=== PATIENT | female | born 1985 ===

== ENCOUNTER 2023-12-17 07:58 | Outpatient (OUT) | payer OTHER, SELFPAY ==
--- NOTE | 2023-12-17 08:00 | VEIN_ITS ---
Patient Name: SUKHDEV WATERMAN MR#: [id number] : 1985 Exam Date: 12/17/2023 Ordering Doctor: DR Hansel Farley M.D. RADIOLOGY REPORT PROCEDURE: [facility] - OFFICE VISIT INITIAL COMPARISON: None. PROGRESS NOTES: 37-year-old female who presents with a 5 year history of lower extremity pain swelling and varicose veins. The patient's right leg is worse than the left. The patient describes the pain as aching burning and heaviness and rates pain as a 5 on a scale of 1-10. The patient's symptoms are exacerbated by prolonged sitting and standing required of her job. Patient's symptoms are partially relieved by rest, leg elevation, support stockings and over the counter Tylenol. The patient has worn compression stockings for approximately 12 months. The patient denies any signs and symptoms to suggest arterial ischemia. The patient describes a family history significant for cancer in her mother and sister. Hypothyroidism. Varicose veins in a father and maternal grandmother. . The patient has never smoked. Occasional social alcohol use. The patient is . No illicit drug use. Past medical history is significant for hypertension, hypothyroidism and left foot pain for which a brace has successfully controlled her symptoms. Past surgical history significant for cholecystectomy, gastric bypass surgery and hernia repair. No history of deep venous thrombus or pulmonary embolus. See separate history and physical for medication list. No prior treatment for varicose or spider veins. Nursing notes were reviewed. After history and physical exam I discussed at length the pathophysiology of venous hypertension and possible treatments, therapies and strategies available. We discussed at length the importance of elevating the lower extremities above the level of the heart, increased physical activity and compression stocking use. Ultrasound venous reflux study performed the same day was discussed at length with the patient. The report demonstrates severe bilateral great saphenous vein venous insufficiency. Moderate right and mild left anterior accessory saphenous vein venous insufficiency. Bilateral incompetent varicose veins. Bilateral deep vein reflux PHYSICAL EXAM: The right leg demonstrates moderate scattered varicose and reticular veins. No hemosiderin staining. Mild subcutaneous edema. No active ulceration. The left leg demonstrates mild scattered varicose veins. No hemosiderin staining. Mild subcutaneous edema. No active ulceration Both thighs, legs and feet were symmetrically warm to the touch. Good posterior tibial and dorsalis pedis pulses were present bilaterally. VEIN/VC Facility EST Comprehensive IMPRESSION: 1. Severe bilateral great saphenous vein venous insufficiency with dilatation and saphenofemoral junction reflux. Bilateral anterior accessory saphenous vein venous insufficiency 2. Moderate bilat lower extremity varicose veins 3. Mild bilateral lower extremity subcutaneous edema 4. No definite flow significant arterial disease 5. CEAP: C3, Ep, As, Pr PLAN: 1. Endovenous laser ablation right great saphenous vein followed by left great saphenous vein. 2. Micro foam chemical ablation incompetent varicose veins 3. Evaluation of the anterior accessory saphenous veins 4. Leg elevation and continued physical activity symptomatic 5. Bilateral thigh-high 20-30 mm compression stockings for control of deep vein reflux Nurse notes, history and physical were reviewed and confirmed, see attached forms. The nurse was present throughout the physical exam and consultation Dictated by: Hansel Farley MD on 12/17/2023 at 10:49 Approved by: Hansel Farley MD on 12/17/2023 at 10:54
--- NOTE | 2023-12-17 08:00 | VEIN_ITS ---
Patient Name: SUKHDEV WATERMAN MR#: [id number] : 1985 Exam Date: 12/17/2023 Ordering Doctor: DR HANSEL FARLEY M.D. RADIOLOGY REPORT PROCEDURE: VC EXT VENOUS REFLUX SHAMA LMTD COMPARISON: None. INDICATIONS: I83.813 Bilateral painful varicose veins TECHNIQUE: Duplex imaging of the lower extremity to assess the deep and superficial venous system for the presence of deep or superficial venous incompetence and to document the location and severity of disease. The study includes evaluation of the great saphenous vein (GSV), anterior accessory saphenous vein (AASV) and small saphenous vein (SSV). Patient scanned in reverse Trendelenburg and standing. FINDINGS: RIGHT LOWER EXTREMITY: Saphenofemoral Junction Reflux: Yes 10.8mm 4.4 sec GSV: Diam (mm) Reflux/ Time (sec) Proximal Thigh 14.7 Yes 4.9 Mid Thigh 6.7 Yes 5.0 Distal Thigh 12.6 Yes 4.9 Prox Calf 7.7 Yes 4.9 Mid Calf 2.5 Yes 0.4 Saphenopopliteal Junction Reflux 2.8mm Yes 0.2 SSV: Proximal Calf 3.4 Yes 0.4 Mid Calf 2.5 Yes 0.2 AASV: Proximal Thigh 6.6 Yes 1.6 Mid Thigh 2.0 No Distal Thigh Thrombi: No acute or chronic thrombus. Compressibility: Normal. Flow: Mild deep venous reflux. Preforator: Dist medial lower leg 2.6mm with 1.0s reflux. Dist medial lower leg 4.2 mm with 1.0s reflux. Prox medial lower leg 5.6 mm, 0.8s reflux. Tech Note: Short AASV 5.0 cm from SFJ. Incompetent varicose vein mid medial lower leg measures 7.2 mm with 2.3s reflux. Varicose vein mid medial lower leg off perf measures 5.7 mm with 4.4s reflux. Varicose medial lower leg 5.7 mm with 0.8s reflux. LEFT LOWER EXTREMITY: Saphenofemoral Junction Reflux: Yes 10.9 mm 1.6 sec GSV: Diam (mm) Reflux/Time (sec) Proximal Thigh 10.8 Yes 1.6 Mid Thigh 7.1 Yes 2.2 Distal Thigh 8.2 Yes 4.9 Prox Calf 9.9 Yes 4.4 Mid Calf 5.3 Yes 1.0 Saphenopopliteal Junction Relux: 3.6 mm Yes 0.3 SSV: Proximal Calf 4.9 Yes 0.2 Mid Calf 3.9 Yes 0.3 AASV: Proximal Thigh 2.8 Yes 0.6 Mid Thigh Distal Thigh Thrombi: No acute or chronic thrombus Compressibility: Normal. Flow: Mild deep venous reflux. Therapy Site Coordinator: Mid medial lower leg measures 3.5 mm with 4.1s reflux. Distal medial thigh 4.9 mm with 0.5s reflux. Tech Note: Incompetent varicose vein mid medial lower leg measures 4.8 mm with 3.1s reflux. Varicose vein distal medial thigh measures 5.0 mm with 1.4s reflux. CONCLUSION: 1. Severe bilateral great saphenous vein venous insufficiency with dilatation and saphenofemoral junction reflux 2. Moderate right and mild left anterior accessory saphenous vein venous insufficiency over a fairly short length with saphenofemoral junction reflux 3. Bilateral incompetent varicose veins 4. Mild bilateral deep vein reflux Dictated by: Hansel Farley MD on 12/17/2023 at 09:11 Approved by: Hansel Farley MD on 12/17/2023 at 09:14
== END 2023-12-17 07:59 | disposition home or self-care (01) ==
LOC: VC 07:59
PROVIDERS: PCP Radiology Diagnostic Radiology; Visit Provider Radiology Diagnostic Radiology
DX: I83.813 Varicose veins of bilateral lower extremities with pain (principal)
CPT/HCPCS: 93970; G0463

== ENCOUNTER 2024-01-19 08:44 | Outpatient (OUT) | payer OTHER, SELFPAY ==
--- NOTE | 2024-01-19 08:45 | VEIN_ITS ---
The [address] [address] Patient Name: SUKHDEV WATERMAN MRN: [id number] date: 1985 Sex: F Assigned Patient Location: Current Patient Location: Accession/Order Number: [id number] Exam Date: 01/19/2024 08:48 Report Date: 01/19/2024 10:03 At the request of: DREW MCBRIDE Procedure: VC Endovenous Ablation 1VeinRT EXAMINATION: VC Endovenous Ablation 1VeinRT HISTORY: Pain due to varicose veins of bilateral legs I83.813 The risks and benefits of the procedure had been previously discussed, and were rediscussed at length. Informed written consent was obtained. Jose Escalante RN and Tayler Juarez RDMS assisted. Time out procedure was performed. The right lower extremity was prepared and draped in the usual sterile fashion to allow knee flexion in the sterile field. Duplex ultrasound probe was draped in a sterile cover, sterile transmission gel was used. Venous mapping was performed with the areas of dilation and large tributaries marked. The total length was 50 cm from the entry 5 cm above the ankle to 3 cm below the Saphenofemoral junction. The diameter of the right great saphenous vein ranged from 10.8 mm. A 30 gauge needle and 1% buffered lidocaine was used to anesthetize the entry site. A 4 mm incision was made with a scalpel and the saphenous vein was entered percutaneously under direct ultrasound guidance with a micropuncture set, a single stick was successful in gaining access. A micro-guide wire was inserted and the needle removed. A micro-set including a dilator was inserted over the microwire and the needle and dilator were removed. A guide wire was inserted through the micro-set and guided through the saphenous vein to the saphenofemoral junction. The dilator was removed and an introducer sheath was inserted over the wire until the end of the sheath entered the saphenofemoral junction. The dilator and wire were removed and the 600 micron fiber was introduced and placed and positioned so that it extended beyond the sheath and was 3 cm distal to the saphenofemoral or saphenopopliteal junction. Final position of the fiber was determined by ultrasound guidance and duplex imaging. Tumescent anesthetic was delivered by ultrasound guidance. 300 cc of fluid was delivered along the entire course of the saphenous vein. The solution consisted of 1000 cc of normal saline with 40 mL of 1% lidocaine and 20 mL of sodium bicarbonate. A final positioning check was made. The energy source was turned on by means of the foot pedal and the fiber and sheath were withdrawn. The total number of Joules delivered was 2735. The laser was active for 342 seconds under continuous pulse, average laser use of 8 J. Laser start time: 9:34 AM Laser stop time: 9:40 AM Date: 01/19/2024. A duplex ultrasound revealed compressibility and flow at the saphenofemoral junction immediately after the procedure. Hemostasis at the access site was achieved. The skin incision of the saphenous vein was closed with a 4 x 4. A compression stocking was applied. Postop instructions were given. A follow up appointment was recommended and scheduled. The patient tolerated the procedure well. Electronically authenticated by: RAHEL PEREZ Date: 01/19/2024 10:03
[2024-01-19] MEDS: LIDOCAINE HCL 1% 100 MG/10 ML MDV INJ (09:01)
[2024-01-19] MEDS: 0.9 % SODIUM CHLORIDE 500 ML, LIDOCAINE HCL 20 ML, SODIUM BICARBONATE 10 MEQ INJ (09:02)
== END 2024-01-19 08:45 | disposition home or self-care (01) ==
PROVIDERS: PCP Radiology Diagnostic Radiology; Visit Provider Radiology Diagnostic Radiology
DX: I83.813 Varicose veins of bilateral lower extremities with pain (principal)
CPT/HCPCS: 36478

== ENCOUNTER 2024-01-26 07:31 | Outpatient (OUT) | payer OTHER, SELFPAY ==
--- NOTE | 2024-01-26 07:32 | VEIN_ITS ---
Patient Name: SUKHDEV WATERMAN MR#: [id number] : 1985 Exam Date: 01/26/2024 Ordering Doctor: DR HANSEL FARLEY M.D. RADIOLOGY REPORT PROCEDURE: VC EXT VENOUS RT LMTD COMPARISON: None. INDICATIONS: Phlebitis of superficial veins of right lower extremity I80.01 TECHNIQUE: Lower extremity arnett scale and Duplex Doppler evaluation of the deep venous system from the inguinal ligament through the calf veins. FINDINGS: REGION: Right lower extremity. THROMBI: Negative for DVT. Heat induced thrombus in right GSV 1.6 cm from SFJ and extends to proximal calf. COMPRESSIBILITY: Non-compressible segments corresponding to thrombus FLOW: Areas of no flow corresponding to thrombus CONCLUSION: Post ablation occlusion of the right great saphenous vein with heat induced thrombus 1.6 cm from the saphenofemoral junction Dictated by: Hansel Farley MD on 01/26/2024 at 07:46 Approved by: Hansel Farley MD on 01/26/2024 at 07:47
--- NOTE | 2024-01-26 07:32 | VEIN_ITS ---
Patient Name: SUKHDEV WATERMAN MR#: [id number] : 1985 Exam Date: 01/26/2024 Ordering Doctor: DR HANSEL FARLEY M.D. RADIOLOGY REPORT PROCEDURE: [facility] EST [facility]D VEIN CENTER - OFFICE VISIT FOLLOW UP COMPARISON: None. PROGRESS NOTES: The patient reports no significant pain following intravenous laser ablation of the right great saphenous vein. The patient has worn her compression stocking. The patient did not require oral analgesics. The patient has tried exercise as directed. Physical exam demonstrates no erythema or warmth to suggest cellulitis or thrombophlebitis. No active ulceration. Thrombosed right great saphenous vein can be partially palpated. The incision is sealed. Review of the ultrasound performed the same day demonstrates occlusive thrombus extending throughout the treated right great saphenous vein with heat induced thrombus 1.6 cm from the saphenofemoral junction. No deep vein thrombus. The patient expressed a desire to proceed with treatment of incompetent left great saphenous vein. VEIN/ Facility EST LMTD IMPRESSION: 1. Successful ablation of the right great saphenous vein 2. Persistent incompetent left great saphenous vein PLAN: Intravenous laser ablation of the left great saphenous vein Nurse notes, history and physical were reviewed and confirmed, see attached forms. The nurse was present throughout the physical exam and consultation Dictated by: Hansel Farley MD on 01/26/2024 at 07:55 Approved by: Hansel Farley MD on 01/26/2024 at 07:56
--- OUTSIDE RECORDS SUMMARY | 2024-01-26 07:34 | XMS_ITS | CCD ---
Author Organization [facility] Care Team Providers Care Flask Carrier Name Role Phone Unavailable Unavailable Unavailable VerLoli duran Unavailable Unavailable RANA, BEHZAD RAJENDRASINH Unavailable Unavail able VERLOLI DURAN Unavailable Unavailable TAMELA ARAYA Unavailable Unavailable BARON JOSE Unavailable Unavailable VERLOLI DURAN Unavailable Unavailable RANA, BEHZAD RAJENDRASINH Unavailable Unavail able RANA, BEHZAD RAJENDRASINH Unavailable Unavail able LOLI MATIAS Unavailable Unavailable FARAZ ROMERO Unavailable Unavailable LOLI MATIAS Unavailable Unavailable Loli Matias Primary Care Provider Unavaila ble Loli Matias Primary Care Provider Loli Matias Primary Care Provider [phone] RANA, BEHZAD RAJENDRASINH Attending Unavail able LOLI MATIAS Primary Care Unavailable RANA, BEHZAD RAJENDRASINH Attending Unavail able LOLI MATIAS Primary Care Unavailable Loli Matias Primary Care Provider [phone] Loli Matias MD Primary Care Provider Loli Matias MD Primary Care Provider REED, DR DREW Baez Attending Unavailable REED, DR DREW Baez Consulting Unavailable REED, DR DREW Baez Admitting Unavailable REED, DR DREW Baez Attending Unavailable REED, DR DREW Baez Consulting Unavailable REED, DR DREW Baez Admitting Unavailable Loli Matias MD Primary Care Provider LOLI MATIAS Primary Care Unavailable NISSA LO Referring Unavailable LOLI MATIAS Referring Unavailable LOLI MATIAS Primary Care Unavailable Allergies Allergy Classification Reported Allergen(s) Allergy Type Date of Onset Reaction(s) Facility (3 sources) bee pollen Propensity to adverse reactions to drug 04-26-2019 [place], [place] (5 sources) levoFLOXacin Drug Allergy 04-26-2019 [place] (3 sources) Penicillins Propensity to adverse reactions to drug 12-01-2011 [place] (3 sources) Seasonal allergy Propensity to adverse reactions to substance 11-18-[address] [facility] (2 sources) Penicillins Propensity to adverse reactions to drug 12-01-2011 [facility] (2 sources) Pollen Propensity to adverse reactions to drug 04-26-2019 [facility] Work Phone: Medications Current Medications Medication Drug Class(es) Dates Sig (Normalized) Sig (Original) 8 hr acetaminophen 650 mg extended release oral tablet (12 sources) take 1 tablet by mouth twice daily as needed for pain acetaminophen (TYLENOL) 650 MG CR tablet Take 650 mg by mouth 2 (two) times a day as needed for pain. 0 Active acetaminophen 325 mg / HYDROcodone bitartrate 10 mg oral tablet (1 source) Opioid Agonist Start: 06-09-2019 take 1 tablet by mouth every six hours as needed for pain, then take 4 tablets by mouth once daily as needed for pain HYDROcodone-acetam inophen (NORCO) 10-325 MG per tablet TAKE ONE TABLET BY MOUTH EVERY 6 HOURS NEEDED FOR PAIN max FOUR daily 0 06/09/2019 Active acetaminophen 325 mg / oxyCODONE hydrochloride 5 mg oral tablet (1 source) Opioid Agonist Start: 04-23-2019 take 1 tablet by mouth every six hours as needed for pain oxyCODONE-acetamin ophen (PERCOCET) 5-325 MG per tablet TAKE 1 TABLET BY MOUTH EVERY 6 HOURS NEEDED FOR PAIN FOR 5 DAYS 0 04/23/2019 Active amLODIPine 10 mg oral tablet (3 sources) Dihydropyridine Calcium Channel [place] Start: 02-06-2016 take 1 tablet by mouth once daily amLODIPine (NORVASC) 10 MG tablet Take 1 tablet by mouth daily 02/06/2016 Active biotin (13 sources) BIOTIN PO Take b y mouth 0 Active take 1 capsule by mouth once [place] biotin 10,000 mcg cap Take 10,000 mcg by mouth daily. 0 Active calcium citrate 1500 mg / cholecalciferol 200 unt oral tablet (10 sources) Vitamin D calcium citrate- vitamin D (CITRACAL+D) 315-200 mg-unit per tablet Take 1,200 tablets by mouth daily. 0 Active Calcium Citrate-Vitamin D3 315 Mg-200 Unit Tablet (2 sources) take 1200 tablets by mouth once daily, then take 315-200 tablets by mouth once calcium citrate-vitamin D (CITRACAL+D) 315-200 mg-unit per tablet Take 1,200 tablets by mouth daily. Active cholecalciferol 0.125 mg oral tablet (14 sources) Vitamin D take 1 tablet by mouth once daily Cholecalciferol (VITAMIN D3) 5000 units TABS Take 1 tablet by mouth daily 0 Active coenzyme q10 400 mg oral capsule (9 sources) coenzyme Q10 (CO Q-10) 400 mg cap Take by mouth . 0 Active docusate sodium 50 mg / sennosides, fpc 8.6 mg oral tablet (3 sources) take 1 tablet by mouth once daily as needed senna-docusate (SENNALAX-S) 8.6-50 mg Take 1 tablet by mouth daily as needed . Active gabapentin 50 mg/ml oral solution (1 source) Anti-epileptic Agent Start: 2016 End: 2016 take 6 mL by mouth once daily gabapentin (NEURONTIN) 300 mg/6 mL (6 mL) solution Take 6 mL (300 mg total) by mouth daily. 180 mL 0 05/02/2017 06/01/2017 Active hydroCHLOROthiazide 25 mg oral tablet (3 sources) Thiazide Diuretic Start: 2016 hydroCHLOROthiazide (HYDRODIURIL) 25 MG tablet Take by mouth. 08/04/2017 Active Start: 05-02-2017 End: 06-01-2017 take 0.5 tablet by mouth once daily hydroCHLOROthiazide (HYDRODIURIL) 25 MG tablet Take 0.5 (one-half) tablet (12.5 mg total) by mouth daily. 15 tablet 0 05/02/2017 06/01/2017 Active hydroquinone 40 mg/ml topical cream (1 source) Melanin Synthesis Inhibitor Start: 03-24-2023 hydroquinone 4 % cream Apply topically 2 times daily. 28.35 g 3 03/24/2023 Active loratadine 10 mg oral tablet (3 sources) Start: 03-27-2019 loratadine (CLARITIN) 10 MG tablet Take by mouth 0 03/27/2019 Active metFORMIN hydrochloride 500 mg oral tablet (10 sources) Biguanide take 1 tablet by mouth twice daily at mealtime metFORMIN (GLUCOPHAGE) 500 MG tablet Take 500 mg by mouth 2 (two) times a day with meals. 0 Active Multiple Vitamins-Minerals (MULTIVITAMIN ADULT PO) (3 sources) Start: 03-27-2019 Multiple Vitamins-Minerals (MULTIVITAMIN ADULT PO) Take by mouth 0 03/27/2019 Active Naltrexone (11 sources) Opioid Antagonist Start: 04-21-2019 NALTREXONE HCL PO take 1 capsule by mouth once [place] naltrexone 4.5 mg capsule Take 4.5 mg by mouth daily . 0 Active ondansetron 4 mg disintegrating oral tablet (2 sources) Serotonin-3 Receptor Antagonist Start: 07-17-2019 ondansetron (ZOFRAN ODT) [address] 1 tablet under the tongue every 8 hours as needed for Nausea or Vomiting 30 tablet 0 07/17/2019 Active Start: 04-23-2016 take 2 tablets by mo [facility] every eight hours as needed for nausea ondansetron (ZOFRAN) 4 MG tablet Take 2 tablets by mouth every 8 hours as needed for Nausea or Vomiting 20 tablet 0 04/23/2016 Active pantoprazole 40 mg delayed release oral tablet (7 sources) Proton Pump Inhibitor Start: 11-06-2022 take 1 tablet by mouth once daily pantoprazole (PROTONIX) 40 MG tablet Indications: Gastroesophageal reflux disease without esophagitis TAKE 1 TABLET BY MOUTH EVERY DAY 90 tablet 0 11/06/2022 Active Start: 11-18-2021 [facility] pantoprazole (PROTONIX) 40 MG tablet Indications: Gastroesophageal reflux disease without esophagitis TAKE 1 TABLET BY MOUTH EVERY DAY 90 tablet 1 11/18/2021 Active Start: 05-20-2020 End: 05-20-2021 take 1 tablet by mouth once daily pantoprazole (PROTONIX) 40 MG tablet Take 1 (one) tablet (40 mg total) by mouth daily . 30 tablet 5 05/20/2020 05/20/2021 Active Start: 06-09-2017 End: 09-13-2018 take 1 tablet by mouth once daily pantoprazole (PROTONIX) 40 MG tablet Indications: S/P bariatric surgery , Gastroesophageal reflux disease, esophagitis presence not specified Take 1 (one) tablet (40 mg total) by mouth daily. 30 tablet 2 09/13/2017 09/13/2018 Active Start: 05-02-2017 End: 06-01-2017 take 1 tablet by mouth once daily pantoprazole (PROTONIX) 40 MG tablet Take 1 (one) tablet (40 mg total) by mouth daily. 30 tablet 0 05/02/2017 06/01/2017 Active vitamin with Ca-Iron-FA 27-1 mg Tab (9 sources) take 1 tablet by mouth once daily vitamin with Ca-Iron-FA 27-1 mg Tab Take 1 tablet by mouth daily . 0 Active raNITIdine 150 mg oral tablet (14 sources) Histamine-2 Receptor Antagonist Start: 03-27-2019 take 1 tablet by mouth twice daily ranitidine (ZANTAC) 150 MG tablet Take by mouth One twice a day 0 03/27/2019 Active take 1 tablet by mouth twice [place] [facility] ranitidine (ZANTAC) 150 MG tablet Take 150 mg by mouth 2 (two) times a day. 0 Active levothyroxine sodium 0.05 mg oral tablet (17 sources) l-Thyroxine Start: 11-06-2022 take 1 tablet by mouth once daily before breakfast levothyroxine (SYNTHROID) 50 MCG tablet Indications: Acquired hypothyroidism TAKE 1 TABLET BY MOUTH EVERY DAY BEFORE BREAKFAST 90 tablet 0 11/06/2022 Active Start: 11-18-2021 take 1 tablet by rosalino th once daily before breakfast levothyroxine (SYNTHROID) 50 MCG tablet Indications: Acquired hypothyroidism Take 1 tablet by mouth every morning (before breakfast) 90 tablet 1 11/18/2021 Active Start: 02-06-2016 take 1 tablet by rosalino th once daily before breakfast levothyroxine (SYNTHROID) 50 MCG tablet Take 1 tablet by mouth every morning (before breakfast) 90 tablet 1 04/14/2019 Active vitamin B 12 (17 sources) Vitamin B12 cyanocobalamin ( vitamin B-12) 1000 MCG tablet Take 1,000 mcg by mouth daily She is taking 500 sl. Cutting in half. . 0 Active take 1000 [IU] by mouth once [place] Cyanocobalamin (VITAMIN B 12 PO) Take 1,000 Units by mouth daily 0 Active vitamin e 400 unt oral tablet (9 sources) take 1 capsule by mo ut once daily vitamin E 400 UNIT capsule Take 400 Units by mouth daily . 0 Active take 1 capsule by mouth once [place] vitamin E 400 UNIT capsule Take 400 Units by mouth daily . 0 Active Completed/Discontinued Medications Medication Drug Class(es) Dates Sig (Normalized) Sig (Original) pediatric bxytqieu-ufsq-cgz (flintstones complete) Chew (2 sources) pediatric vctymfwk-qqkd-obo (flintstones complete) Chew Chew and Swallow Take two daily . Active Pediatric Multivitamin With Iron And Other Minerals Chewable Tablet (1 source) pediatric vxfnxccx-suvy-ves (flintstones complete) Chew Chew and Swallow Take two daily . Active Problems Active Problems Problem Classification Problem Date Documented Da te Episodic/Chronic Esophageal disorders (5 sources) Gastroesophageal reflux disease without esophagitis; Translations: [Gastro-esophageal reflux disease without esophagitis] Onset: 7 01-21-2017 Chronic Essential hypertension (7 sources) Essential (primary) hypertension; Translations: [Hypertensive disorder] Onset: 2 09-07-2012 Chronic Other endocrine disorders (2 sources) Ovarian dysfunction, unspecified; Translations: [Ovarian dysfunction, unspecified] Onset: 8 Chronic Other gastrointestinal disorders (1 source) History of bariatric surgical procedure; Translations: [Bariatric surgery status] Episodic Other nutritional; endocrine; and metabolic disorders (20 sources) Morbid obesity; Translations: [Morbid (severe) obesity due to excess calories] Onset: 7 04-30-2017 Chronic Other nutritional; endocrine; and metabolic disorders (1 source) Obese class I; Translations: [Obesity, Class I, BMI 30-34.9] Other screening for suspected conditions (not mental disorders or infectious disease) (6 sources) Increased vitamin A; Translations: [Encounter for screening, unspecified] Onset: 9 09-21-2019 Episodic Thyroid disorders (9 sources) Thyroid nodule; Translations: [Acquired hypothyroidism] Onset: 1 08-04-2017 Chronic Past or Other Problems Problem Classification Problem Date Documented Da te Episodic/Chronic Abdominal pain (6 sources) Abdominal pain; Translations: [Epigastric pain] Onset: 07-05-2012 Resolved: 08-04-2017 08-04-2017 Episodic Medical examination/evaluation (2 sources) Encounter for other preprocedural examination; Translations: [Encounter for other preprocedural examination] Onset: 04-23-2017 Episodic Nutritional deficiencies (4 sources) Cobalamin deficiency; Translations: [Vitamin B12 deficiency] Onset: 09-18-2019 09-18-2019 Episodic Other gastrointestinal disorders (1 source) Personal history of other diseases of the digestive system; Translations: [History of pancreatitis] Episodic Residual codes; unclassified (1 source) H/O: surgery Episodic Unclassified (2 sources) Patient encounter status; Translations: [Well woman exam with routine gynecological exam] Onset: 04-05-2012 Resolved: 08-15-2018 08-15-2018 Urinary tract infections (5 sources) Lower urinary tract infectious disease; Translations: [Urinary tract infection, site not specified] Onset: 07-05-2012 Resolved: 08-04-2017 08-04-2017 Episodic Results Test Name Value Interpretation Reference Range Facility Thyroxine, Freeon 04-03-2023 Thyroxine, Free 1.4 ng/dL Normal 0.9-1.7 [facility] Comment on above: Performed By: #### F T4 #### [address] [id number] Formula Mixer: Jarek Branch MD #### TSH #### [facility] [address] [place] [address] Formula Mixer: Drew Lee MD [facility] TSH [Mass/Vol] 0.83 [facility] Thyroid Stim. Horm.on 2022 Thyroid Stim. Horm. 0.83 uIU/mL Normal 0.30-5.00 [facility] Comment on above: Performed By: #### F T4 #### [id number] [place], [place] [id number] Formula Mixer: Jarek Branch MD #### TSH #### [facility] [address] [place] [address] Formula Mixer: Drew Lee MD US HEAD NECK SOFT TISSUE THY ROIDon 11-11-2022 US HEAD NECK SOFT TISSUE THYROID EXAM: US HEAD NECK SOFT TISSUE THYROID HISTORY: Acquired hypothyroidism COMPARISON: 07/14/2019. FINDINGS: Right lobe: 5.8 x 2.0 x 1.8 cm. Isthmus: 3.2 mm. Left lobe: 4.5 x 1.8 x 1.6 cm. Rim calcified benign 6 x 5 x 5 mm nodule inferior left lobe not significant and stable. 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 Thyroid echogenicity normal. IMPRESSION: No significant findings. No specific follow-up needed. Interpreted by: Manny Villafuerte Jr., MD Signed by: Manny Villafuerte Jr., MD 11/11/22 Final result Normal [facility] No significant findings. No specific follow-up needed. [facility] EXAM: US HEAD NECK S OFT TISSUE THYROID HISTORY: Acquired hypothyroidism COMPARISON: 07/14/2019. FINDINGS: Right lobe: 5.8 x 2.0 x 1.8 cm. Isthmus: 3.2 mm. Left lobe: 4.5 x 1.8 x 1.6 cm. Rim calcified benign 6 x 5 x 5 mm nodule inferior left lobe not significant and stable. 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 Thyroid echogenicity normal. [facility] Manny Villafuerte Jr., MD - 11/11/2022 EXAM: US HEAD NECK SOFT TISSUE THYROID HISTORY: Acquired hypothyroidism COMPARISON: 07/14/2019. FINDINGS: Right lobe: 5.8 x 2.0 x 1.8 cm. Isthmus: 3.2 mm. Left lobe: 4.5 x 1.8 x 1.6 cm. Rim calcified benign 6 x 5 x 5 mm nodule inferior left lobe not significant and stable. 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 Thyroid echogenicity normal. IMPRESSION: No significant findings. No specific follow-up needed. [employer] Phone: US HEAD NECK SOFT TISSUE THY ROIDOrdered By: Manny Villafuerte on 11-11-2022 [employer] Phone: US HEAD NECK SOFT TISSUE THY ROIDon 11-10-2022 Radiology Study observation (narrative) [employer] Phone: Coding Summary.on 05-31-2020 Coding Summary. CODING DATE: 020 FINAL [facility] STATUS: Home (Routine DC) PAYOR: Leela GROUPERS: 770 MS-DRG w D&C, aspiration curettage or hysterotomy Low Trim 0 High Trim 999 543 APR-DRG W D&C, ASPIRATION CURETTAGE OR HYSTEROTOMY Severity of Illness Moderate Risk of Mortality Minor DIAGNOSES: ADMIT DX: O03.1 Delayed or excessive hemorrhage following incomplete spontaneous REASON FOR VISIT DX: FINAL DX: PRINCIPAL: O03.1 Y Delayed or excessive hemorrhage following incomplete spontaneous SECONDARY: D62 Y Acute posthemorrhagic anemia PROCEDURES: DOCTOR NAME DATE Extraction of Products of Davie Grijalva MD 05/27/2020 Conception, Retained, Via Natural or Artificial Opening [id number] Control Bleeding in Davie Grijalva MD 05/27/2020 Genitourinary Tract, Via Natural or Artificial Opening [id number] Transfusion of Nonautologous Davie Grijlava MD 05/26/2020 Red Blood Cells into Peripheral Vein, Percutaneous Approach 96761L4 Transfusion of Nonautologous Davie Grijalva MD 05/26/2020 Red Blood Cells into Peripheral Vein, Percutaneous Approach 60814S7 Transfusion of Nonautologous Davie Grijalva MD 05/26/2020 Red Blood Cells into Peripheral Vein, Percutaneous Approach 47228L3 Transfusion of Nonautologous Davie Grijalva MD 05/26/2020 Red Blood Cells into Peripheral Vein, Percutaneous Approach 44061V4 Transfusion of Nonautologous Davie Grijalva MD 05/26/2020 Frozen Plasma into Peripheral Vein, Percutaneous Approach 38422W1 Transfusion of Nonautologous Davie Grijalva MD 05/26/2020 Frozen Plasma into Peripheral Vein, Percutaneous Approach 74498A2 Transfusion of Nonautologous Davie Grijalva MD 05/27/2020 Red Blood Cells into Peripheral Vein, Percutaneous Approach NOTE: The code number assigned matches the documented diagnosis and / or procedure in the patient's chart. However, the narrative phrase printed from the coding software may appear abbreviated, or result in slightly different terminology. Coded By: Rae Milton Date Saved: 05/31/2020 11:44 am Normal [facility] IntraOperative Documentson 0 05-31-2020 IntraOperative Documents [id number]#[id number]:127 Normal [facility] Consent for Procedure/Surger yon 05-28-2020 Consent for Procedure/Surgery [id number]#[id number]:127 Normal [facility] Discharge Instructionson Discharge Instructions [id number]#[id number]:127 Normal [facility] Discharge Instructions Given Worseningon 05-28-2020 Discharge Instructions Given Worsening The following Patient Education Materials have been given to the patient: EducationMaterial Normal [facility] History and Physicalon 05-28 History and Physical HOSPITAL REGULATIONS: ALL Positive Important Negative Findings Shall Be Recorded DATE ADMITTED: 05/26/2020 ADMITTING DIAGNOSIS: Miscarriage with hemorrhage. The patient is a 34 year old, white female who presented to the Emergency Room with heavy vaginal bleeding and menses started about a week ago. She had multiple days of heavy bleeding. This morning it was very heavy which concerned her. She felt a little dizzy. On admission to the Emergency Room she was found to have a quantitative beta HCG of 18 and having large clots per the vagina. It slowed down and she was evaluated and found to have a hemoglobin of 12. She was continued with her evaluation with the positive test. She had an ultrasound which revealed what was felt to be products of conception versus clot in the uterus as well as an 8 cm mass around the cervix. Her hemoglobin dropped from 12 to 9 on repeat. PAST MEDICAL HISTORY: Allergies: Pollen and Levaquin. Medications: Levothyroxine, Ibuprofen, Loratadine. Surgeries: Dilation and curettage in 2019, hysteroscopy in 2018, gastric sleeve in 2017. FAMILY HISTORY: Noncontributory but positive for diabetes in her mother, positive for thyroid cancer in her mother and sister. PSYCHOSOCIAL HISTORY: Negative for cigarettes. Negative for ETOH. REVIEW OF SYSTEMS: Heavy bleeding. GENERAL: The patient is a well-developed, well-nourished, white female, quite pale, slightly orthostatic. VITAL SIGNS: The patient is afebrile, pulse 105, respirations 16, blood pressure 114/69. HEAD AND E.E.N.T.: Normocephalic. Extraocular muscles are intact. The pupils are equal and responsive to light and accommodation. Nose and throat are clear. NECK: Without mass. Without thyromegaly. LUNGS: Clear to auscultation. HEART: Regular rate and rhythm. BREASTS: Nonpathologic. ABDOMEN: Soft, non-tender, positive bowel sounds. Uterus enlarged 8-10 week size. EXTREMITIES: Negative for clubbing, cyanosis and edema. PELVIC: Normal external genitalia, vault within normal limits. Tremendous amounts of clots. Blood pouring from the cervical os. Multiple sweeps with the ring forceps unable to stop the bleeding and remove presumed products of conception. IMPRESSION: Patient needs more emergent suction curettage for missed miscarriage. ADDENDUM: Patient appropriately signed consent forms for suction curettage and potential for blood transfusion. Davie Grijalva MD, FACOG lkr Dictated: 05/26/2020 #[id number] Typed 05/27/2020 #[id number] cc: Davie Grijalva MD, MICHAEL [facility] Comment on above: Result Comment: Elec tronically Signed By: Rudi GUSTAFSON, Davie Duong\.br\Date and Time Signed: 05/28/20 08:12 EDT Inpatient Clinical Summaryon 05-28-2020 Inpatient Clinical Summary [place] [id number] Clinical Summary Person Information Name: SUKHDEV SCHWARTZ Stacey[facility] Age: 34 Years : 1985 Sex: Female PCP: SONIA GUSTAFSON, LOLI Vela Marital Status: Phone: [phone] Race: White Ethnicity: Non- or Language: Palestinian Visit Id: Visit Reason: Nausea; Dizziness; Vaginal bleeding; VAG BLEEDING Speciality: Acuity: Other Enc Type: Inpatient Med Service: Obstetrics Arrival: 05/26/2020 11:09:13 Discharge: 05/28/2020 08:40:00 Dispo Type: Home (Routine DC) Address: [address] [facility] [id number] Provider Notes: Diagnosis: 1:Miscarriage; 2:Retained products of conception after miscarriage; 3:Anemia, blood loss Problems Active Pancreatitis Smoking Status: Former Smoker Functional Status: Sensory Deficits: No hearing deficits, No visual deficits History of Falls: Mobility Assistance Prior to Admission: Independent ADLs: Independent Current Level of Assistance for Self-Care/Mobility: Cognitive Status: Oriented x 3 Allergies Pollen (Hayfever) Levaquin (Liver damage) Laboratory or Other Results This Visit (last charted value for your 05/26/2020 visit) Hematology 05/27/2020 4:03 PM Hct: 23.9 % -- Normal range between ( 34.0 and 46.0 ) Hgb: 8.3 gm/dL -- Normal range between ( 12.0 and 16.0 ) 05/26/2020 11:25 AM Basophil Auto: 0.8 % -- Normal range between ( 0.0 and 2.0 ) Eos Auto: 2.0 % -- Normal range between ( 0.0 and 8.0 ) Lymph Auto: 22.2 % -- Normal range between ( 14.0 and 50.0 ) RBC: 4.1 E12/L -- Normal range between ( 4.3 and 5.9 ) RDW: 12.4 % -- Normal range between ( 10.9 and 14.2 ) MCH: 29.8 pg -- Normal range between ( 27.0 and 34.0 ) MCHC: 33.3 gm/dL -- Normal range between ( 31.4 and 36.0 ) MCV: 89.5 fL -- Normal range between ( 80.0 and 100.0 ) [place] Auto: 6.7 % -- Normal range between ( 4.0 and 14.0 ) MPV: 7.4 fL -- Normal range between ( 6.4 and 10.8 ) Neutro Auto: 68.3 % -- Normal range between ( 36.0 and 75.0 ) Platelet: 278.0 E9/L -- Normal range between ( 150.0 and 500.0 ) WBC: 7.0 E9/L -- Normal range between ( 4.0 and 11.0 ) [place] Absolute: 0.5 E9/L -- Normal range between ( 0.2 and 1.0 ) Eos Absolute: 0.1 E9/L -- Normal range between ( 0.0 and 0.5 ) Basophil Absolute: 0.1 E9/L -- Normal range between ( 0.0 and 0.2 ) Neutro Absolute: 4.8 E9/L -- Normal range between ( 2.0 and 7.5 ) Lymph Absolute: 1.6 E9/L -- Normal range between ( 1.0 and 4.0 ) Coagulation 05/27/2020 4:03 PM FSP: <10 INR: 1.1 Fibrinogen: 181 mg/dL -- Normal range between ( 200 and 393 ) PT: 12.6 second(s) -- Normal range between ( 10.2 and 12.9 ) PTT: 24.6 second(s) -- Normal range between ( 25.1 and 36.5 ) Chemistry 05/26/2020 12:57 PM Progesterone Lvl: 0.90 ng/mL 05/26/2020 11:25 AM Creatinine: 0.7 mg/dL -- Normal range between ( 0.5 and 1.3 ) A/G Ratio: 1.4 -- Normal range between ( 1.1 and 2.2 ) BUN/Creat Ratio: 21 -- Normal range between ( 10 and 20 ) AGAP: 12 mEq/L -- Normal range between ( 6 and 16 ) Albumin Lvl: 4.1 gm/dL -- Normal range between ( 3.3 and 5.0 ) Alk Phos: 47 Int._Unit/L -- Normal range between ( 21 and 98 ) ALT: 10 Int._Unit/L -- Normal range between ( 6 and 46 ) AST: 12 Int._Unit/L -- Normal range between ( 5 and 43 ) Bili Direct: 0.1 mg/dL -- Normal range between ( 0.1 and 0.4 ) Bili Total: 0.8 mg/dL -- Normal range between ( 0.0 and 1.1 ) CO2: 26 mmol/L -- Normal range between ( 21 and 31 ) Glucose Lvl: 101 mg/dL -- Normal range between ( 55 and 199 ) Sodium Lvl: 139 mmol/L -- Normal range between ( 135 and 145 ) Total Protein: 7.0 gm/dL -- Normal range between ( 6.0 and 7.8 ) BUN: 15 mg/dL -- Normal range between ( 5 and 21 ) Calcium Lvl: 9.4 mg/dL -- Normal range between ( 8.9 and 11.1 ) Potassium Lvl: 3.9 mmol/L -- Normal range between ( 3.5 and 5.3 ) Chloride: 105 mmol/L -- Normal range between ( 101 and 111 ) Beta hCG Qnt: 18 mIU/mL -- Normal range between ( 1 and 3 ) Bili Indirect: 0.7 mg/dL -- Normal range between ( 0.1 and 0.9 ) eGFR: >60 mL/min/1.73 m2 eGFR AA: >60 mL/min/1.73 m2 Globulin: 2.9 gm/dL -- Normal range between ( 1.4 and 4.0 ) Blood Bank 05/27/2020 8:38 AM TRANSFUSED: TRANSFUSED 05/26/2020 12:57 PM Computer XM Interp: Computer XM OK ABO/Rh: O POS ABSC Gel Interp: Negative Serology 05/26/2020 11:25 AM Beta hCG Ql: Positive Ultrasound 05/26/2020 2:12 PM US 1st Trimester: US 1st Trimester Measurements: Height: 182.8 cm Weight: 109.1 kg Blood Pressure: 124 mmHg / 65 mmHg BMI: 32.65 kg/m2 Procedures No Procedures Documented Immunizations No Immunizations Documented This Visit Final Med List: biotin 10,000mcg By Mouth every day. cholecalciferol (Vitamin D3 5000 intl units oral capsule) 1 Capsules By Mouth every day. with food. cyanocobalamin (Vitamin B-12) 5,000 Microgram By Mouth every day. ibuprofen (ibuprofen 600 mg Tab) 1 Tablets By Mouth every 6 hours. Refills: 0. levothyroxine (levothyroxine 50 mcg (0.05 mg) Tab) 1 Tablets By Mouth every day. loratadine (loratadine 10 mg Tab) 1 Tablets By Mouth every day. multivitamin, ( Multivitamins) 1 Tablets By Mouth every day. pantoprazole (Protonix 20 mg Tab-DR) 1 Tablets. Care Team Members: Attending Physician: Davie Grijalva MD Consulting Physician: Referring Physician: Follow up: With: Address: When: Dr. Grijalva [phone] Within 1 to 2 weeks Comments: Call for any problems. Patient Education Information: Menorrhagia [facility] Inpatient Patient Summaryon 05-28-2020 Inpatient Patient Summary [place] [id number] Patient Discharge Instructions PERSON INFORMATION Name: SUKHDEV SCHWARTZ Date of : 1985 Current Date: 05/28/2020 08:43:41 PHYSICIANS Admitting Physician: Davie Grijalva MD Primary Care Physician: LOLI MATIAS MD PCP Comment: Discharge Diagnosis: 1:Miscarriage; 2:Retained products of conception after miscarriage; 3:Anemia, blood loss Condition at Discharge: Stable SUKHDEV SCHWARTZ has been given the following list of follow-up instructions, prescriptions, and patient education materials: PATIENT FOLLOW-UP INFORMATION Diet: Regular Activity: Activity as tolerated Wound Care Instructions: Remove Your Dressing IN: Days Call Your Doctor For: Persistent or heavy bleeding, Temperature above 101.5 degrees, Persistent vomiting IF UNABLE TO CONTACT YOUR PHYSICIAN AND YOU FEEL IT IS AN EMERGENCY, GO TO THE NEAREST EMERGENCY ROOM OR CALL 911 Home Treatment: Devices/Equipment: Special Services: Additional Instructions: Physician to provide the following pending test results: None Follow up: With: Address: When: Dr. Grijalva [phone] Within 1 to 2 weeks Comments: Call for any problems. In the event that this physician does not participate in your insurance network, please consult with your insurance company to find a nearby participating provider. Comment: IJAMES BRITTANY F, have received the attached patient education materials/instructions and have verbalized understanding. Patient Signature __ Date Clinican/Nurse Signature Date MEDICATION LIST Medications to Continue with No Changes Other Medications biotin 10,000mcg By Mouth every day. Last Dose: N ext Dose: cholecalciferol (Vitamin D3 5000 intl units oral capsule) 1 Capsules By Mouth every day. with food. Last Dose: N ext Dose: cyanocobalamin (Vitamin B-12) 5,000 Microgram By Mouth every day. Last Dose: N ext Dose: ibuprofen (ibuprofen 600 mg Tab) 1 Tablets By Mouth every 6 hours. Refills: 0. Last Dose: N ext Dose: levothyroxine (levothyroxine 50 mcg (0.05 mg) Tab) 1 Tablets By Mouth every day. Last Dose: N ext Dose: loratadine (loratadine 10 mg Tab) 1 Tablets By Mouth every day. Last Dose: N ext Dose: multivitamin, ( Multivitamins) 1 Tablets By Mouth every day. Last Dose: N ext Dose: pantoprazole (Protonix 20 mg Tab-DR) 1 Tablets. Last Dose: N ext Dose: Pharmacy Information: [facility] PATIENT EDUCATION INFORMATION Instructions: Menorrhagia Menorrhagia is the medical term for when your menstrual periods are heavy or last longer than usual. With menorrhagia, every period you have may cause enough blood loss and cramping that you are unable to maintain your usual activities. CAUSES In some cases, the cause of heavy periods is unknown, but a number of conditions may cause menorrhagia. Common causes include: ? A problem with the hormone-producing thyroid gland (hypothyroid). ? Noncancerous growths in the uterus (polyps or fibroids). ? An imbalance of the estrogen and progesterone hormones. ? One of your ovaries not releasing an egg during one or more months. ? Side effects of having an intrauterine device (IUD). ? Side effects of some medicines, such as anti-inflammatory medicines or blood thinners. ? A bleeding disorder that stops your blood from clotting normally. SIGNS AND SYMPTOMS During a normal period, bleeding lasts between 4 and 8 days. Signs that your periods are too heavy include: ? You routinely have to change your pad or tampon every 1 or 2 hours because it is completely soaked. ? You pass blood clots larger than 1 inch (2.5 cm) in size. ? You have bleeding for more than 7 days. ? You need to use pads and tampons at the same time because of heavy bleeding. ? You need to wake up to change your pads or tampons during the night. ? You have symptoms of anemia, such as tiredness, fatigue, or shortness of breath.? DIAGNOSIS Your health care provider will perform a physical exam and ask you questions about your symptoms and menstrual history. Other tests may be ordered based on what the health care provider finds during the exam. These tests can include: ? Blood tests. Blood tests are used to check if you are or have hormonal changes, a bleeding or thyroid disorder, low iron levels (anemia), or other problems. ? Endometrial biopsy. Your health care provider takes a sample of tissue from the inside of your uterus to be examined under a microscope. ? Pelvic ultrasound. This test uses sound waves to make a picture of your uterus, ovaries, and vagina. The pictures can show if you have fibroids or other growths. ? Hysteroscopy. For this test, your health care provider will use a small telescope to look inside your uterus. Based on the results of your initial tests, your health care provider may recommend further testing. TREATMENT Treatment may not be needed. If it is needed, your health care provider may recommend treatment with one or more medicines first. If these do not reduce bleeding enough, a surgical treatment might be an option. The best treatment for you will depend on: ? Whether you need to prevent .?? ? Your desire to have children in the future. ? The cause and severity of your bleeding. ? Your opinion and personal preference. ? Medicines for menorrhagia may include: ? control methods that use hormones. These include the pill, skin patch, vaginal ring, shots that you get every 3 months, hormonal IUD, and implant. These treatments reduce bleeding during your menstrual period. ? Medicines that thicken blood and slow bleeding. ? Medicines that reduce swelling, such as ibuprofen.? ? Medicines that contain a synthetic hormone called progestin. ? ? Medicines that make the ovaries stop working for a short time. ? You may need surgical treatment for menorrhagia if the medicines are unsuccessful. Treatment options include: ? Dilation and curettage (D&C). In this procedure, your health care provider opens (dilates) your cervix and then scrapes or suctions tissue from the lining of your uterus to reduce menstrual bleeding. ? Operative hysteroscopy. This procedure uses a tiny tube with a light (hysteroscope) to view your uterine cavity and can help in the surgical removal of a polyp that may be causing heavy periods. ? Endometrial ablation. Through various techniques, your health care provider permanently destroys the entire lining of your uterus (endometrium). After endometrial ablation, most women have little or no menstrual flow. Endometrial ablation reduces your ability to become . ? Endometrial resection. This surgical procedure uses an electrosurgical wire loop to remove the lining of the uterus. This procedure also reduces your ability to become . ? Hysterectomy. Surgical removal of the uterus and cervix is a permanent procedure that stops menstrual periods. is not possible after a hysterectomy. This procedure requires anesthesia and hospitalization. HOME CARE INSTRUCTIONS ? Only take [id number] or prescription medicines as directed by your health care provider. Take prescribed medicines exactly as directed. Do not change or switch medicines without consulting your health care provider. ? Take any prescribed iron pills exactly as directed by your health care provider. Long-term heavy bleeding may result in low iron levels. Iron pills help replace the iron your body lost from heavy bleeding. Iron may cause constipation. If this becomes a problem, increase the bran, fruits, and roughage in your diet. ? Do not take aspirin or medicines that contain aspirin 1 week before or during your menstrual period. Aspirin may make the bleeding worse. ? If you need to change your sanitary pad or tampon more than once every 2 hours, stay in bed and rest as much as possible until the bleeding stops. ? Eat well-balanced meals. Eat foods high in iron. Examples are leafy green vegetables, meat, liver, eggs, and whole grain breads and cereals. Do not try to lose weight until the abnormal bleeding has stopped and your blood iron level is back to normal. SEEK MEDICAL CARE IF: ? You soak through a pad or tampon every 1 or 2 hours, and this happens every time you have a period. ? You need to use pads and tampons at the same time because you are bleeding so much. ? You need to change your pad or tampon during the night. ? You have a period that lasts for more than 8 days. ? You pass clots bigger than 1 inch wide. ? You have irregular periods that happen more or less often than once a month. ? You feel dizzy or faint. ? You feel very weak or tired. ? You feel short of breath or feel your heart is beating too fast when you exercise. ? You have nausea and vomiting or diarrhea while you are taking your medicine. ? You have any problems that may be related to the medicine you are taking. SEEK IMMEDIATE MEDICAL CARE IF: ? You soak through 4 or more pads or tampons in 2 hours. ? You have any bleeding while you are . MAKE SURE YOU: ? Understand these instructions. ? Will watch your condition. ? Will get help right away if you are not doing well or get worse. Document Released: 10/04/2006 Document Revised: 10/09/2014 Document Reviewed: 03/25/2014 ExitCare? Patient Information ?2015 [employer] ([employer]). This information is not intended to replace advice given to you by your health care provider. Make sure you discuss any questions you have with your health care provider. Medication Leaflets: Thank you for choosing [facility] IntraOperative Documentson 0 8-11-2020 IntraOperative Documents [id number]:[id number] [facility] Operative Reporton 0 Operative Report Date of Surgery: 05/27/2020 SURGEON: Davie Grijalva MD, FACOG PREOPERATIVE DIAGNOSIS: Hemorrhage with miscarriage POSTOPERATIVE DIAGNOSIS: Hemorrhage with miscarriage OPERATION: Suction curettage, placement of Bakri balloon ANESTHESIA: General ANESTHESIOLOGIST: Kendall Martin Jr., D.O. PREOPERATIVE HISTORY: The patient is a 34 year old white female who presented to Emergency Room complaining of heavy vaginal bleeding that had been going on for approximately a week. She had blood coming out and came to the Emergency Room. This was originally stopped although the patient did have some orthostasis and on repeat examination in the Emergency Room the patient had taken her hemoglobin from 12 on initial presentation down to 9. Called to see the patient and after clearing the clots. The patient clearly had excessive bleeding from the cervical os. A minimum amount of tissue was obtained from the cervical os but she continued to bleed significantly. She was immediately taken down to the Operating Room after signing consents for further management. OPERATIVE TECHNIQUE: The patient was taken to the Operative Suite and after general anesthesia was administered the patient was draped and prepped in the usual fashion for vaginal surgery. A single-toothed tenaculum was placed on the anterior lip of the cervix and the cervix admitted a 9 mm suction curette which was used to suck the endometrial contents from the lining. She continued to have significant bleeding despite the clinical impression that all the products of conception were removed despite massage. The ultrasound technicians were requested and after stopping the blood momentarily by closing the cervix with a ring forceps two stay sutures had been placed at 3 and 9 on the cervix as stay sutures. This had no effect and the ultrasound technicians arrived and confirmed that the lining of the uterus was empty from any retained products of conception. After additional suctioning she continued to have heavy bleeding and a Bakri balloon was placed and inflated. This needed readjustment but tamponaded the bleeding and there was no further bleeding from the patient. Once hemostasis was assured and the patient was stable through the course of the operation and the patient was to receive four units of blood. She had already had two units in by that point. The patient was transferred to Recovery Room in stable condition. Estimated blood loss an additional 1500 cc to 2000 cc intraoperatively. Sponge and needle counts correct. The patient was transferred to the Recovery Room in stable condition. Davie Grijalva MD, FACOG lkr Dictated: 05/27/2020 #[id number] Typed: 05/27/2020 #[id number] cc: Davie Grijalva MD, MICHAEL [facility] Comment on above: Result Comment: Elec tronically Signed By: Rudi GUSTAFSON, Davie Horowitz.br\Date and Time Signed: 05/28/20 08:11 EDT Progress Note-Physicianon Progress Note-Physician Patient: SUKHDEV SCHWARTZ Age: 34 years Sex: Female : 1985 Associated Diagnoses: None Author: Jerel Martin JR, DO Postoperative Information Post Operative Note: Post Anesthesia Care Unit. Anesthetic utilized: General, Monitored anesthesia care. Health Status Allergies: Allergic Reactions (Selected) Severe Pollen- Hayfever. Severity Not Documented Levaquin- Liver damage. Current medications: (Selected) Prescriptions Prescribed ibuprofen 600 mg Tab: 600 mg = 1 tab(s), Oral, q6hr, # 15 tab(s), Refills(s) 0, Pharmacy: [facility] #[id number] Documented Medications Documented Multivitamins: 1 tab(s), Oral, Daily, Refill(s) 0, Prophylaxis Protonix 20 mg Tab-DR: 20 mg = 1 tab(s), Refills(s) 0, Control of stomach acid Vitamin B-12: 5,000 microgram, Oral, Daily, Refills(s) 0, Prophylaxis Vitamin D3 5000 intl units oral capsule: 5,000 International_Unit = 1 cap(s), Oral, Daily, with food, # 100 cap(s), Refills(s) 0, Prophylaxis biotin: 10,000mcg, Oral, Daily, Refills(s) 0, Prophylaxis levothyroxine 50 mcg (0.05 mg) Tab: 50 microgram = 1 tab(s), Oral, Daily, Refills(s) 0, Thyroid loratadine 10 mg Tab: 10 mg = 1 tab(s), Oral, Daily, Refills(s) 0, Allergy symptoms Problem list: All Problems Pancreatitis / SNOMED CT 074854239 / Confirmed Incomplete miscarriage / SNOMED CT 250616465 / Confirmed missed Ovarian dysfunction / SNOMED CT 90823763 / Confirmed Hypothyroidism / SNOMED CT 53780908 / Confirmed Resolved: / SNOMED CT 500745746 Resolved: / SNOMED CT 042925513 Resolved: / SNOMED CT 705787885 Resolved: / SNOMED CT 745838668 Physical Examination Intake and Output Denies significant n/v and is tolerating p.o. Vital Signs (last 24 hrs) Last Charted Temp Oral 36.7 DegC (MAY 28 08:) Resp Rate 16 br/min (MAY 28:) SBP 124 mmHg (MAY 28:) DBP 65 mmHg (MAY 28:) Weight 109.1 kg (MAY 27) Height 182.8 cm (MAY 27:) BMI 32.65 (MAY 27) Pain assessment: Pain Assessment 05/28/2020 8:00 EDT Pain Symptoms Self Report No, able to self report Patient Preferred Pain Tool Numeric rating Numeric Pain Scale 0 = No pain Numeric Pain Score 0 05/28/2020 6:42 EDT Numeric Pain Scale 0 = No pain Numeric Pain Score 0 05/28/2020 3:53 EDT Pain Symptoms Self Report Yes, able to self report Primary Pain Location OB Head, Other: neck Primary Pain Quality Aching Patient Preferred Pain Tool Numeric rating Numeric Pain Scale 5 = Moderate pain Numeric Pain Score 5 Primary Pain Interventions Medications 05/28/2020 1:44 EDT Numeric Pain Scale 0 = No pain Numeric Pain Score 0 05/27/2020 22:12 EDT Pain Symptoms Self Report Yes, able to self report Primary Pain Location OB Uterine Primary Pain Quality Cramping Patient Preferred Pain Tool Numeric rating Numeric Pain Scale 7 Numeric Pain Score 7 Primary Pain Interventions Medications 05/27/2020 21:00 EDT Numeric Pain Scale 0 = No pain Numeric Pain Score 0 05/27/2020 19:57 EDT Numeric Pain Scale 0 = No pain 05/27/2020 12:40 EDT Pain Symptoms Self Report Yes, able to self report Primary Pain Location OB Uterine Primary Pain Quality Cramping, Pressure Patient Preferred Pain Tool Numeric rating Numeric Pain Scale 3 Numeric Pain Score 3 Primary Pain Interventions Repositioning Primary Pain Aggravating Factors None Pain Associated Symptoms None Acceptable Pain Intensity - Numeric 0 = No pain 05/27/2020 9:03 EDT Primary Pain Location Uterine Primary Pain Quality Cramping Patient Preferred Pain Tool Numeric rating Numeric Pain Scale 2 Numeric Pain Score 2 05/27/2020 8:01 EDT Primary Pain Interventions Medications 05/27/2020 7:30 EDT Pain Symptoms Self Report Yes, able to self report Primary Pain Location OB Uterine Primary Pain Quality Cramping Patient Preferred Pain Tool Numeric rating Numeric Pain Scale 6 Numeric Pain Score 6 Primary Pain Interventions Medications, Repositioning Primary Pain Aggravating Factors None Pain Associated Symptoms None 05/27/2020 6:30 EDT Pain Symptoms Self Report No, able to self report Patient Preferred Pain Tool Numeric rating Numeric Pain Scale 0 = No pain Numeric Pain Score 0 05/27/2020 5:30 EDT Pain Symptoms Self Report No, able to self report Patient Preferred Pain Tool Numeric rating Numeric Pain Scale 0 = No pain Numeric Pain Score 0 05/27/2020 4:15 EDT Pain Symptoms Self Report Yes, able to self report Primary Pain Location OB Uterine Primary Pain Quality Cramping, Sharp Patient Preferred Pain Tool Numeric rating Numeric Pain Scale 7 Numeric Pain Score 7 Primary Pain Interventions Medications, Repositioning, Rest 05/27/2020 2:30 EDT Pain Symptoms Self Report No, able to self report Patient Preferred Pain Tool Numeric rating Numeric Pain Scale 0 = No pain Numeric Pain Score 0 05/27/2020 1:15 EDT Pain Symptoms Self Report Yes, able to self report Primary Pain Location OB Uterine Primary Pain Quality Cramping, Sharp Patient Preferred Pain Tool Numeric rating Numeric Pain Scale 8 Numeric Pain Score 8 Primary Pain Interventions Medications, Repositioning, Rest 05/27/2020 0:30 EDT Pain Symptoms Self Report No, able to self report Patient Preferred Pain Tool Numeric rating Numeric Pain Scale 0 = No pain Numeric Pain Score 0 . Respiratory: Adequate air exchange with orthodoxy of preoperative function.. Cardiovascular: Cardiovascular function is stable and has returned to preoperative levels.. Neurologic: Pt has returned to preoperative baseline.. Review / Management Condition: Stable. Assessment Anesthetic outcome No anesthetic complications noted. Plan Transfer/ Discharge: Patient can be discharged from PACU when criteria met. Condition good. [facility] Comment on above: Result Comment: Elec tronically Signed By: Jerel Martin JR, DO.yvonne\Date and Time Signed: 05/28/20 12:40 EDT Progress Note-Physician Patient: SUKHDEV SCHWARTZ Age: 34 years Sex: Female : 1985 Associated Diagnoses: None Author: Jerel Martin JR, DO Postoperative Information Post Operative Note: Post Anesthesia Care Unit. Anesthetic utilized: General, Monitored anesthesia care. Health Status Allergies: Allergic Reactions (Selected) Severe Pollen- Hayfever. Severity Not Documented Levaquin- Liver damage. Current medications: (Selected) Inpatient Medications Ordered HYDROmorphone 1 mg/mL injectable solution: 0.2 mg = 0.2 mL, Injection, IV Push, q2min PRN Pain for 10 dose(s), Stop date Limited # of times, STAT, Start date 05/26/20 17:15:00 EDT Lactated Ringers IV Sherrie 1000 mL 1,000 mL: 1,000 mL, IV, 100 mL/hr, Routine, Start date 05/26/20 17:15:00 EDT, 10 hour(s), Total volume (mL): 1,000, 2.3, m2 Lactated Ringers IV Sherrie 1000 mL 1,000 mL: 1,000 mL, IV, 250 mL/hr, STAT, Start date 05/26/20 12:54:00 EDT, 4 hour(s), Total volume (mL): 1,000 Phenergan 25 mg/mL Injection: 12.5 mg = 0.5 mL, Injection, IV Push, q2min PRN Other (see comment) for 2 dose(s), Stop date Limited # of times, Routine, Start date 05/26/20 17:15:00 EDT Sodium Chloride 0.9% IV Sherrie 1000 mL 1,000 mL: 1,000 mL, IV, 1,000 mL/hr, for 30 day(s), Stop date 06/25/20 12:44:00 EDT, STAT, Start date 05/26/20 12:45:00 EDT, 1 hour(s), Total volume (mL): 1,000 Sodium Chloride 0.9% IV Sherrie 500 mL 500 mL: 500 mL, IV, 20 mL/hr, PRN Other (see comment), STAT, Start date 05/26/20 15:46:00 EDT, 25 hour(s), Total volume (mL): 500 Prescriptions Prescribed ibuprofen 600 mg Tab: 600 mg = 1 tab(s), Oral, q6hr, # 15 tab(s), Refills(s) 0, Pharmacy: [id number] #16 Documented Medications Documented Multivitamins: 1 tab(s), Oral, Daily, Refill(s) 0, Prophylaxis Tylenol Extra Strength 500 mg oral tablet: 500 mg = 1 tab(s), Oral, q4hr, PRN for fever, # 60 tab(s), Refills(s) 0 Vitamin B-12: 5,000 microgram, Oral, Daily, Refills(s) 0, Prophylaxis Vitamin D3 5000 intl units oral capsule: 5,000 International_Unit = 1 cap(s), Oral, Daily, with food, # 100 cap(s), Refills(s) 0, Prophylaxis biotin: 10,000mcg, Oral, Daily, Refills(s) 0, Prophylaxis levothyroxine 50 mcg (0.05 mg) Tab: 50 microgram = 1 tab(s), Oral, Daily, Refills(s) 0, Thyroid loratadine 10 mg Tab: 10 mg = 1 tab(s), Oral, Daily, Refills(s) 0, Allergy symptoms misoprostol 100 mcg Tab: 100 microgram = 1 tab(s), Oral, BID, Refills(s) 0, Other (see comment) ranitidine 150 mg Tab: 150 mg = 1 tab(s), Oral, BID, Refills(s) 0, Control of stomach acid Problem list: All Problems Pancreatitis / SNOMED CT 160752929 / Confirmed Incomplete miscarriage / SNOMED CT 546326519 / Confirmed missed Ovarian dysfunction / SNOMED CT 74537335 / Confirmed Hypothyroidism / SNOMED CT 78207453 / Confirmed Physical Examination Intake and Output Denies significant n/v and is tolerating p.o. Vital Signs (last 24 hrs) Last Charted Temp Tympanic L 35.9DegC (MAY 26:14) Heart Rate Peripheral H 105bpm (MAY 26:14) Resp Rate 16 br/min (MAY 26 15:17) SBP 108 mmHg (MAY 26 15:45) DBP H 93mmHg (MAY 26 15:45) SpO2 100 % (MAY 26 15:45) Weight 109 kg (MAY 26:) Height 183 cm (MAY 26:14) BMI 32.55 (MAY 26:) Respiratory: Adequate air exchange with orthodoxy of preoperative function.. Cardiovascular: Cardiovascular function is stable and has returned to preoperative levels.. Neurologic: Pt has returned to preoperative baseline.. Review / Management Condition: Stable. Assessment Anesthetic outcome No anesthetic complications noted. Plan Transfer/ Discharge: Patient can be discharged from PACU when criteria met. Condition good. [facility] Comment on above: Result Comment: Elec tronically Signed By: Jerel Martin JR, DO Progress Note-Physician PROGRESS NOTE: 05/27/2020 The patient doing well this morning without difficulties or problems and no vaginal bleeding. The drainage bag on the Bakri bag is serosanguineous only and the patient is doing well. Her hemoglobin has decreased from 8.9 last night to 7.8 this morning. Her urine output has been good at 62 cc/hour. Her vital signs currently are afebrile, pulse 82, respirations 18, blood pressure 114/63. Abdomen is soft, nontender. Uterus is below the pelvic brim. Plan to decrease the tension on the balloon, transfuse one more unit and then remove the balloon this afternoon. Davie Grijalva MD, FACOG gls Dictated: 05/27/2020 #[id number] Typed: 05/27/2020 #[id number] cc: Davie Grijalva MD, FACOG [facility] Comment on above: Result Comment: Elec tronically Signed By: Rudi GUSTAFSON, Davie Duong\.br\Date and Time Signed: 05/28/20 08:11 EDT Consent for Anesthesiaon Consent for Anesthesia [id number]:[id number] [facility] FSPon 05-27-2020 Fibrin+Fibrinogen fragments (S) [Mass/Vol] <10 Normal <10 [facility] Comment on above: Performed By: #### 1 1459943, 6467707, 1151959, 2977874, 9464353, 1466824, 43811315, 7988479 #### [facility] [address] [place] [address] 16707 Fibrin+Fibrinogen fragments (S) [Mass/Vol] <10 Normal <10 [facility] Comment on above: Performed By: #### 1 9858547, 2831222, 6661144, 1811611, 0054536, 5279515, 51537305, 9422577 #### [facility] [address] [place] [address] 08297 Fibrin+Fibrinogen fragments (S) [Mass/Vol] <10 Normal <10 [facility] Comment on above: Performed By: #### 1 1404415, 9028378, 7502113, 1871462, 3966990, 6931050, 62200017, 5723379 #### [facility] [address] [place] [address] 68098 Fibrinogenon 05-27-2020 Fibrinogen Coag (PPP) [Mass/Vol] 181 mg/dL Low 200-393 [facility] Comment on above: Performed By: #### 1 8572316, 2195925, 7444664, 7517583, 8834120, 7401512, 12902327, 5951000 #### [facility] [address] [place] [address] 18048 Fibrinogen Coag (PPP) [Mass/Vol] 178 mg/dL Low 200-393 [facility] Comment on above: Performed By: #### 1 5524028, 9481305, 9603519, 4112520, 5041463, 6401555, 74576465, 5125138 #### [facility] [address] [place] [address] 46115 Fibrinogen Coag (PPP) [Mass/Vol] 174 mg/dL Low 200-393 [facility] Comment on above: Performed By: #### 1 0945540, 4276364, 5704353, 0580810, 8437850, 7156937, 49253740, 4271066 #### [facility] [address] [place] [address] 87848 Hct & Hgbon 05-27-2020 Hematocrit (Bld) [Volume fraction] 23.9 % Low 34.0-46.0 [facility] Comment on above: Performed By: #### 1 6673920, 0273658, 0791906, 5111832, 6357182, 0283796, 86610983, 7319376 #### [facility] [address] [place] [address] 61205 Hemoglobin (Bld) [Mass/Vol] 8.3 g/dL Low 12.0-16.0 [facility] Comment on above: Performed By: #### 1 4725946, 7496711, 3876184, 3002250, 3923403, 0800712, 43524391, 4279227 #### [facility] [address] [place] [address] 34851 Hematocrit (Bld) [Volume fraction] 22.4 % Low 34.0-46.0 [facility] Comment on above: Performed By: #### 1 7635061, 9510115, 2990434, 2224424, 7883950, 0291320, 50630285, 9803304 #### [facility] [address] [place] [address] 71483 Hemoglobin (Bld) [Mass/Vol] 7.8 g/dL Low 12.0-16.0 [facility] Comment on above: Performed By: #### 1 3132556, 3845869, 8107510, 0402733, 3525445, 3451522, 44420552, 9848313 #### [facility] [address] [place] [address] 92045 Hematocrit (Bld) [Volume fraction] 26.2 % Low 34.0-46.0 [facility] Comment on above: Performed By: #### 1 0215152, 3166214, 4186317, 7453310, 5201518, 8269932, 83248360, 3751283 #### [facility] [address] [place] [address] 17455 Hemoglobin (Bld) [Mass/Vol] 8.9 g/dL Low 12.0-16.0 [facility] Comment on above: Performed By: #### 1 1696635, 0765339, 0423633, 7459313, 2653505, 0317078, 59621969, 4219500 #### [facility] [address] [place] [address] IntraOperative Documentson 0 05-27-2020 IntraOperative Documents [id number]:127 Normal [facility] Main OR Intraoperative Recor don 05-27-2020 Main OR Intraoperative Record IntraOp Document Type FT Summary Primary Physician: Davie Grijalva MD Finalized Date/Time: 05/27/20 13:44:47 Pt. Name: SUKHDEV SCHWARTZ Antoni Mo/Sex: 1985 Female Med Rec #: [id number] Physician: Davie Grijalva MD Financial #: [id number] Pt. Type: I Room/Bed: [place] [address] Admit/Disch: 05/26/20 11:09:13 - Institution: Case Times FT Entry 1 Patient Times In Room 05/26/20 16:01:00 Out Room 05/26/20 17:13:00 Procedure Times Start 05/26/20 16:14:00 Stop 05/26/20 16:59:00 Anesthesia Times Start 05/26/20 16:01:00 Stop 05/26/20 17:13:00 Last Modified By: Annelise GOODRICH, Rena 05/26/20 17:16:52 General Comments: 05/27/2020 Chart opened to review and send charges Hilda Stein CST Case Attendance FT Entry 1 Entry 2 Entry 3 Case Attendee Mario KNOWLES DO, Jerel Grijalva MD, Davie Crook CST, Mónica Role Performed Anesthesiologist of Surgeon - Primary Scrub - Primary Record Time In 05/26/20 16:01:00 05/26/20 16:01:00 05/26/20 16:01:00 Time Out 05/26/20 17:13:00 05/26/20 17:06:00 05/26/20 17:13:00 Procedure DILATATION and SUCTION DILATATION and SUCTION DILATATION and SUCTION CURETTAGE CURETTAGE CURETTAGE Comments Last Modified By: Annelsie GOODRICH, Rena 05/26/20 Annelise GOODRICH, Rena 05/26/20 Annelise GOODRICH, Rena 05/26/20 17:20:27 17:20:27 17:20:27 Entry 4 Entry 5 Entry 6 Case Attendee Annelise GOODRICH, Shoshana Pérez RN, Lauren Role Performed Technical Service Specialist - Primary Staff - Other Staff - Other Time In 05/26/20 16:01:00 05/26/20 16:45:00 05/26/20 16:01:00 Time Out 05/26/20 17:13:00 05/26/20 17:13:00 05/26/20 17:13:00 Procedure DILATATION and SUCTION DILATATION and SUCTION DILATATION and SUCTION CURETTAGE CURETTAGE CURETTAGE 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, 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 Last Modified By: Annelise GOODRICH, Rena 05/26/20 Annelise GOODRICH, Rena 05/26/20 Annelise GOODRICH, Rena 05/26/20 17:20:27 17:21:03 20:05:31 Entry 7 Case Attendee Rasheeda RN, NADYAOR, Matilde Role Performed Technical Service Specialist - Other Time In 05/26/20 16:01:00 Time Out 05/26/20 17:13:00 Procedure DILATATION and SUCTION CURETTAGE Comments Last Modified By: Rena Castelan RN 05/26/20 20:09:51 Perioperative Protocols FT Pre-Care Text: Implements protective measures prior to operative or invasive procedure, confirms identity before the operative or invasive procedure, verifies operative procedure, surgical site, and laterality Entry 1 Procedure(s) DILATATION and SUCTION Patient Identity Birthday, ID Band CURETTAGE Verified (select at Check, Patient least 2): Participation Consents / H and P Anesthesia Consent, Operative Site N/A Verified HandP, Surgery/Procedure Marking Verified Consent, Transfusion Consent Surgical Site Yes Laterality Verified n/a Verified Procedure Verified Yes Correct Patient Yes Position Verified Availability Equipment, Medication Prep Dry n/a Verified (If Applicable) PreOp Antibiotic No Time Out Jerel Martin JR, DO, Kasten MD, Armaan Pérez CST, Mónica, Annelise GOODRICH, Derek Chase RN, Rasheeda Aguilar RN, NADYAORMatilde Time Out Complete 05/26/20 16:13:00 Outcomes Met? Yes Last Modified By: Rena Castelan RN 05/26/20 20:10:03 Post-Care Text: The patient is free from signs and symptoms of injury caused by extraneous objects Allergy Information FT Pre-Care Text: Verifies allergies Entry 1 Allergies Reviewed? Yes Allergies Reviewed Self/Patient With Outcomes Met? Yes Last Modified By: Rena Castelan RN 05/26/20 20:06:15 Post-Care Text: The patient received appropriate medication(s) safely administered during the perioperative period Surgical Procedures FT Entry 1 Procedure Description Procedure DILATATION and SUCTION Surgeon Description DILATION SUCTION CURETTAGE CURETTAGE Primary Procedure Yes Primary Surgeon Davie Grijalva MD Start 05/26/20 16:14:00 Stop 05/26/20 16:59:00 Anesthesia Type General Surgical Service Obstetric Gynecology Wound Class 2 - Clean-Contaminated Last Modified By: Rena Castelan RN 05/26/20 20:06:36 General Case Data FT Pre-Care Text: Classifies surgical wound, implements aseptic technique, initiates traffic control Entry 1 Case Information OR OR 2 FT Case Level Level 2 Wound Class 2 - Clean-Contaminated Specialty Obstetric Gynecology ASA Class 3E Preop Diagnosis MISCARRIAGE Postop Same As Preop Yes Postop Diagnosis MISCARRIAGE Outcomes Met? Yes Last Modified By: Rena Castelan RN 05/26/20 20:06:51 Post-Care Text: The patient is free from signs and symptoms of infection Skin Assessment (Pre Procedure) FT Pre-Care Text: Implements protective measures to prevent skin/ tissue injury due to thermal or mechanical sources Evaluates for signs and symptoms of physical injury to skin and tissue Entry 1 Skin Integrity Intact, [place], Warm, and Skin Abnormality No Dry, Bruised Abnormality Location bilateral upper thighs Outcomes Met? Yes Last Modified By: Rena Castelan RN 05/26/20 20:08:32 Post-Care Text: The patient is free from signs and symptoms of injury caused by extraneous objects General Comments: Extensive bleeding from vagina.-JOLEEN York Patient Positioning FT Pre-Care Text: Identifies physical alterations that require additional precautions for procedure-specific positioning, verifies presence of prosthetics or corrective devices, positions the patient, evaluates the patient for signs and symptoms of injury as a result of positioning Entry 1 Procedure DILATATION and SUCTION Body Position Low Lithotomy CURETTAGE Feet Uncrossed? Yes Left Arm Position Extended on Padded Arm Board Right Arm Position Extended on Padded Arm Left Leg Position Secured in Stirrup Board Right Leg Position Secured in Stirrup Positioning Device Stirrups Yellow Fins, Pillow Under Head Large Press Points Checked Yes By Rena Castelan RN, Liben JR DO, Rudi Zhu MD, Rasheeda Pérez RN, NADYAOR, Matilde Outcomes Met? Yes Last Modified By: Rena Castelan RN 05/26/20 20:10:16 Post-Care Text: The patient is free from signs and symptoms of injury related to positioning Patient Care Devices FT Pre-Care Text: Implements protective measures to prevent skin/ tissue injury due to thermal or mechanical sources Entry 1 Entry 2 Entry 3 Equipment Type MISTRAL FORCED AIR MONITOR CHARGE SURGERY PADDED STIRRUPS [F] WARMING SYSTEM UNIT[F] [F] Equipment Number [id number] Equipment Setting Outcomes Met? Yes Yes Yes Last Modified By: Rena Castelan RN 05/26/20 Rena Castelan RN 05/26/20 Rena Castelan RN 05/26/20 20:10:37 20:10:37 20:10:37 Post-Care Text: The patient is free from signs and symptoms of injury caused by extraneous objects Transport To OR FT Pre-Care Text: Transports according to individual needs. Evaluates for signs and symptoms of skin and tissue injury as a result of transfer or transport Entry 1 Via Cart By Rena Castelan RN Safety Precautions Side Rails Up Outcomes Met? Yes Last Modified By: Rena Castelan RN 05/26/20 20:10:48 Post-Care Text: The patient is free from signs and symptoms of injury related to transfer/transport Counts Verification FT Pre-Care Text: Performs required counts Entry 1 Entry 2 Procedure(s) DILATATION and SUCTION DILATATION and SUCTION CURETTAGE CURETTAGE Type Initial Final Items Sponges Sponges Status Correct Correct Time By Rasheeda RN, NADYAOR, Rasheeda RN, NADYAOR, Matilde, Armaan [employer], Armaan Clayton [employer]SEM[employer], Mónica Mónica Outcomes Met? Yes Yes Last Modified By: Rena Castelan RN 05/26/20 Rena Castelan RN 05/26/20 20:11:33 20:11:33 Post-Care Text: The patient is free from signs and symptoms of injury caused by extraneous objects Skin Prep FT Pre-Care Text: Performs skin preparations Entry 1 Procedure DILATATION and SUCTION Prep Area vagina CURETTAGE Prep Agents Betadine Scrub and Solution Hair Removal Methods Not Indicated By Rasheeda GOODRICH, NADYAOR, Outcomes Met? Yes Matilde Last Modified By: Rena Castelan RN 05/26/20 20:11:50 Post-Care Text: The patient is free from signs and symptoms of infection Departure From OR FT Pre-Care Text: Transports according to individual needs. Evaluates for signs and symptoms of skin and tissue injury as a result of transfer or transport. Entry 1 Via Cart Safety Precautions Side Rails Up PostOp Destination PACU Transported By Lauren Reed RN, Stocker RN, CNOR, Matilde Patient Status Stable Skin. Condition Bruised, Intact, [place], Description same as preop Warm, and Dry Airway Maintenance Oxygen in Use? Yes Airway Device Nasal Cannula Flow Rate 3 L Outcomes Met? Yes Last Modified By: Rena Castelan RN 05/26/20 20:12:44 Post-Care Text: The patient is free from signs and symptoms of injury related to transfer/transport General Comments: Verbal report given to pacu nurse, even though pacu nurse was in OR during whole case.-JOLEEN York Dressing/Packing FT Pre-Care Text: Administers care to wound sites Entry 1 Type Dressing Items PAD MATERNITY [][F] Site and Details Bakri Balloon in place Outcomes Met? Yes in uterus and connected to cueto drainage bag, peripad Last Modified By: Rena Castelan RN 05/26/20 20:14:28 Post-Care Text: The patient is free from signs and symptoms of infection Medication Administration FT Pre-Care Text: Verifies allergies, administers prescribed medications and solutions, administers prescribed antibiotic therapy and immunizing agents as ordered, evaluates response to medications Administers prescribed medications and solutions Entry 1 Route of Admin Field Expiration Date Yes Verified Ordered By Davie Grijalva MD Transcribed/To Rena Castelan RN Field By Administered By Davie Grijalva MD Outcomes Met? Yes Last Modified By: Rena Castelan RN 05/26/20 20:14:44 Post-Care Text: The patient received appropriate medication(s) safely administered during the perioperative period For Daugherty-Angel please see scanned medication reconcilliation form for medications used at the field during the procedure. Urinary Catheter Pre-Care Text: Patient is prepped using sterile technique. Entry 1 Present Upon Arrival Yes Insertion Site Uretheral Inserted By Rena Castelan RN Discontinued? No Outcomes Met? Yes Last Modified By: Rena Castelan RN 05/26/20 20:15:13 Post-Care Text: The patient is free from signs of trauma. General Comments: Cueto was present on arrival, JOLEEN York did not insert cueto.-JOLEEN York Cultures and Specimens FT Pre-Care Text: Manages specimen handling and disposition Manages culture specimen collection Entry 1 Cultures Ordered No Specimens Ordered Yes Specimen Disposition Designated OR Area Frozen Section Times Outcomes Met? Yes Last Modified By: Rena Castelan RN 05/26/20 20:15:34 Post-Care Text: The patient is free from signs and symptoms of injury caused by extraneous objects The patient is free from signs and symptoms of infection General Comments: Products of conception sent for pathology.-JOLEEN York Temperature Control Entry 1 Temperature Control BLANKET MISTRAL AIR Quantity 1 Aid TORSO [[id number]][F] Fluid/Murray Unit Mistral warming system Setting 43c, high Body Site Upper anterior torso Last Modified By: Rena Castelan RN 05/26/20 20:15:53 Case Comments Finalized By: Juanita Stein CST Document Signatures Signed By: Rena Castelan RN 05/26/20 20:16 Juanita Stein CST 05/27/20 13:44 Normal [facility] PACU Recordon 05-27-2020 PACU Record [id number]:[id number] Normal [facility] PT & PTTon 05-27-2020 aPTT Coag (PPP) [Time] 24.6 second(s) Low 25.1-36.5 [facility] Comment on above: Order Comment: Order Added by Discern Expert. Result Comment: Hepa rin therapeutic range (represented by Anti-Factor Xa activity of 0.2 - 0.4 U/mL) corresponds to PTT of 56.6 - 109.0 sec. Performed By: #### 1 [id number], 1064817, 0130149, 6613852, 3650615, 7948435, 41013626, 0355500 #### [facility] [address] [place] [address] INR Coag (PPP) [Relative time] 1.1 {INR} [facility] Comment on above: Order Comment: Order Added by Discern Expert. Result Comment: INR results are specifically intended to assess patients stabilized on long-term Anticoagulation therapy suggested INR?s ?Less Intensive Anticoagulation? 2.0 ? 3.0 Conventional Range 3.0 ? 4.5 Performed By: #### 1 0917756, 1381645, 3490676, 5534169, 1861743, 5387344, 68832868, 6405915 #### [facility] [address] [place] [address] PT Coag (PPP) [Time] 12.6 second(s) Normal 10.2-12.9 [facility] Comment on above: Order Comment: Order Added by Discern Expert. Performed By: #### 1 4900948, 8851350, 1222441, 6582553, 6570829, 1186070, 80830042, 4514683 #### [facility] [address] [place] [address] aPTT Coag (PPP) [Time] 25.1 second(s) Normal 25.1-36.5 [facility] Comment on above: Result Comment: Hepa rin therapeutic range (represented by Anti-Factor Xa activity of 0.2 - 0.4 U/mL) corresponds to PTT of 56.6 - 109.0 sec. Performed By: #### 1 9923600, 0135919, 0943865, 8906972, 8791246, 6896594, 56658635, 7211632 #### [facility] [address] [place] [address] INR Coag (PPP) [Relative time] 1.2 {INR} [facility] Comment on above: Result Comment: INR results are specifically intended to assess patients stabilized on long-term Anticoagulation therapy suggested INR?s ?Less Intensive Anticoagulation? 2.0 ? 3.0 Conventional Range 3.0 ? 4.5 Performed By: #### 1 4313357, 8965581, 8526339, 6578399, 9933539, 1538975, 64136385, 9481797 #### [facility] [address] [place] [address] PT Coag (PPP) [Time] 13.5 second(s) High 10.2-12.9 [facility] Comment on above: Performed By: #### 1 2741072, 7202157, 8562905, 6945079, 3693994, 1620541, 55432743, 4736751 #### [facility] [address] [place] [address] aPTT Coag (PPP) [Time] 24.5 second(s) Low 25.1-36.5 [facility] Comment on above: Result Comment: Hepa rin therapeutic range (represented by Anti-Factor Xa activity of 0.2 - 0.4 U/mL) corresponds to PTT of 56.6 - 109.0 sec. Performed By: #### 1 0714866, 2608396, 9808874, 2302992, 0859126, 4224921, 93878216, 0493016 #### [facility] [address] [place] [address] INR Coag (PPP) [Relative time] 1.2 {INR} [facility] Comment on above: Result Comment: INR results are specifically intended to assess patients stabilized on long-term Anticoagulation therapy suggested INR?s ?Less Intensive Anticoagulation? 2.0 ? 3.0 Conventional Range 3.0 ? 4.5 Performed By: #### 1 3193168, 1487617, 8444545, 1412874, 0413427, 2618666, 78638924, 2862181 #### [facility] [address] [place] [address] PT Coag (PPP) [Time] 14.0 second(s) High 10.2-12.9 [facility] Comment on above: Performed By: #### 1 5374259, 0172139, 8675785, 9280624, 6797627, 2817145, 96558225, 5667046 #### [facility] [address] [place] [address] ABO/Rhon 05-26-2020 ABO/Rh Positive [facility] Comment on above: Performed By: #### 1 4038306, 6588490, 5020463, 5848138, 0258448, 9454889, 22690204, 7204715 #### [facility] [address] [place] [address] 57656 ABO/Rh History Checkon 05-26 ABO/Rh History Check Verified Hx Blood Type Normal [facility] Comment on above: Performed By: #### 1 0912337, 9700785, 5773299, 3533099, 5542465, 9283156, 59821342, 4936165 #### [facility] [address] [place] [address] 45451 ABSCon 05-26-2020 ABSC Gel Interp Negative Normal [facility] Comment on above: Performed By: #### 1 8758607, 6689668, 8346800, 7104230, 3182066, 9717335, 85476239, 2313711 #### [facility] [address] [place] [address] 58995 Auto Diffon 05-26-2020 Basophils/100 WBC (Bld) 0.8 % Normal 0.0-2.0 [facility] Comment on above: Order Comment: Order Added by Discern Expert. Performed By: #### 1 6776298, 7219174, 7897420, 0267367, 6819053, 2830634, 88224947, 7415732 #### [facility] [address] [place] [address] 79939 Basophils/Leukocyte s Auto (Bld) [Pure # fraction] 0.1 E9/L Normal 0.0-0.2 [facility] Comment on above: Order Comment: Order Added by Discern Expert. Performed By: #### 1 4472877, 9660899, 5797264, 3868990, 9696840, 4269084, 10306770, 8944375 #### [facility] [address] [place] [address] 56022 Eosinophils/100 WBC (Bld) 2.0 % Normal 0.0-8.0 [facility] Comment on above: Order Comment: Order Added by Discern Expert. Performed By: #### 1 5331792, 9906228, 0408917, 8713307, 2850934, 1369862, 23698003, 4995083 #### [facility] [address] [place] [address] Eosinophils/Leukocy dariel Auto (Bld) [Pure # fraction] 0.1 E9/L Normal 0.0-0.5 [facility] Comment on above: Order Comment: Order Added by Discern Expert. Performed By: #### 1 1515877, 8040649, 1752867, 6276065, 4322667, 8688286, 55972514, 9275237 #### [facility] [address] [place] [address] Lymphocytes/100 WBC (Bld) 22.2 % Normal 14.0-50.0 [facility] Comment on above: Order Comment: Order Added by Discern Expert. Performed By: #### 1 6495633, 2939919, 7352381, 3280430, 5216634, 3249175, 79367818, 5176032 #### [facility] [address] [place] [address] 36449 Lymphocytes/Leukocy dariel Auto (Bld) [Pure # fraction] 1.6 E9/L Normal 1.0-4.0 [facility] Comment on above: Order Comment: Order Added by Discern Expert. Performed By: #### 1 8624205, 4844877, 5293490, 9980877, 6926190, 4093379, 08013119, 4187631 #### [facility] [address] [place] [address] 16[address] Monocytes/100 WBC (Bld) 6.7 % Normal 4.0-14.0 [facility] Comment on above: Order Comment: Order Added by Discern Expert. Performed By: #### 1 6459299, 4755235, 8414785, 9943050, 0451149, 0589209, 96999742, 3748656 #### [facility] [address] [place] [address] Monocytes/Leukocyte s Auto (Bld) [Pure # fraction] 0.5 E9/L Normal 0.2-1.0 [facility] Comment on above: Order Comment: Order Added by Discern Expert. Performed By: #### 1 2817062, 7984406, 5973595, 8804406, 6930589, 5154901, 55825928, 1810493 #### [facility] [address] [place] [address] Neutrophils/100 WBC (Bld) 68.3 % Normal 36.0-75.0 [facility] Comment on above: Order Comment: Order Added by Discern Expert. Performed By: #### 1 9885937, 2799503, 5540710, 7640720, 3242039, 0638650, 44705483, 2747822 #### [facility] [address] [place] [address] Neutrophils/Leukocy dariel Auto (Bld) [Pure # fraction] 4.8 E9/L Normal 2.0-7.5 [facility] Comment on above: Order Comment: Order Added by Discern Expert. Performed By: #### 1 3404183, 7152215, 7037223, 1156960, 5780440, 4143687, 48667366, 6296734 #### [facility] [address] [place] [address] B hCG Qualon 05-26-2020 Beta hCG Ql Positive Normal [facility] Comment on above: Result Comment: mary ected Performed By: #### 1 0760815, 8721366, 7936242, 1176799, 9369247, 5081066, 88100704, 1848329 #### [facility] [address] [place] [address] BMPon 05-26-2020 Creatinine [Mass/Vol] 0.7 mg/dL Normal 0.5-1.3 [facility] Comment on above: Performed By: #### 1 8725418, 5023641, 7702096, 8955020, 0894991, 1723153, 77838643, 3802531 #### [facility] [address] [place] [address] Urea nitrogen [Mass/Vol] 15 mg/dL Normal 5-21 [facility] Comment on above: Performed By: #### 1 3856331, 3928573, 0291209, 4883024, 3488857, 2163699, 77994077, 4831849 #### [facility] [address] [place] [address] Urea nitrogen/Creatinine [Mass ratio] 21 No Units High 10-20 [facility] Comment on above: Performed By: #### 1 2657109, 6444679, 8309477, 5926324, 2510236, 0247139, 34462867, 2109814 #### [facility] [address] [place] [address] Anion gap [Moles/Vol] 12 mmol/L Normal 6-16 [facility] Comment on above: Performed By: #### 1 4503596, 8094503, 5228002, 8534537, 4042284, 4139655, 09925794, 3256288 #### [facility] [address] [place] [address] Calcium [Mass/Vol] 9.4 mg/dL Normal 8.9-11.1 [facility] Comment on above: Performed By: #### 1 2290969, 4002427, 3475197, 7279307, 3315462, 3330603, 21356945, 6233237 #### [facility] [address] [place] [address] Chloride [Moles/Vol] 105 mmol/L Normal 101-111 [facility] Comment on above: Performed By: #### 1 4927048, 9150664, 2399581, 3554458, 9536648, 6897521, 98614583, 1182761 #### [facility] [address] [place] [address] CO2 [Moles/Vol] 26 mmol/L Normal 21-31 [facility] Comment on above: Performed By: #### 1 1423557, 0969822, 3628860, 6197922, 9341658, 7856644, 85950527, 3683072 #### [facility] [address] [place] [address] Glucose [Mass/Vol] 101 mg/dL Normal 55-199 [facility] Comment on above: Result Comment: If t his glucose result represents a fasting glucose, interpretation should refer to the following reference range: 55-99 mg/dL Performed By: #### 1 [id number], [id number], 4952359, 8886677, 4826194, 9688153, [id number], 3309558 #### [facility] [address] [place] [address] Potassium [Moles/Vol] 3.9 mmol/L Normal 3.5-5.3 [facility] Comment on above: Performed By: #### 1 [id number], 4385918, 1716142, 1862552, 8639963, 8371081, 77599356, 4714731 #### [facility] [address] [place] [address] Sodium [Moles/Vol] 139 mmol/L Normal 135-145 [facility] Comment on above: Performed By: #### 1 [id number], 2378914, 6842549, 0441230, 7369939, 1480665, 82105930, 0582949 #### [facility] [address] [place] [address] [facility]2020 HCG.beta subunit Qn 18 m[IU]/mL High 1-3 [facility] Comment on above: Result Comment: GEST ATIONAL AGE HCG RANGE (mIU/mL) NON- <1-3 0.2-1 WEEKS 5-50 1-2 WEEKS 50-500 2-3 WEEKS 100-5,000 3-4 WEEKS 500-10,000 4-5 WEEKS 1,000-50,000 5-6 WEEKS 10,000-100,000 6-8 WEEKS 15,000-200,000 8-12 WEEKS 10,000-100,000 Performed By: #### 1 [id number], 1482017, 9446744, 2145969, 7485139, 4221821, 07314235, 8646745 #### [facility] [address] [place] [address] Blood Bank ID#on 05-26-2020 BBID# [id number] [facility] Comment on above: Performed By: #### 1 [id number], 3286739, 0482679, 5350527, 8870564, 4676321, 48483234, 6128628 #### [facility] [address] [place] [address] CBC w/ Auto Diffon 0 Erythrocyte distribution width (RBC) [Ratio] 12.4 % Normal 10.9-14.2 [facility] Comment on above: Performed By: #### 1 [id number], 7270237, 0275873, 3607474, 2802932, 0012680, 01684357, 6749021 #### [facility] [address] [place] [address] Hematocrit (Bld) [Volume fraction] 36.6 % Normal 34.0-46.0 [facility] Comment on above: Performed By: #### 1 2494425, 9882547, 5404620, 3530739, 4088890, 0193181, 07472981, 1978318 #### [facility] [address] [place] [address] Hemoglobin (Bld) [Mass/Vol] 12.2 g/dL Normal 12.0-16.0 [facility] Comment on above: Performed By: #### 1 4418390, 3606808, 3884906, 7774127, 2392221, 7992163, 65030130, 7866422 #### [facility] [address] [place] [address] MCH (RBC) [Entitic mass] 29.8 pg Normal 27.0-34.0 [facility] Comment on above: Performed By: #### 1 [id number], 0095432, 2506400, 0528157, 3976109, 0606436, 90579478, 1884982 #### [facility] [address] [place] [address] MCHC (RBC) [Mass/Vol] 33.3 g/dL Normal 31.4-36.0 [facility] Comment on above: Performed By: #### 1 3830189, 5678719, 6504785, 3870758, 9463330, 9555977, 65333009, 6903897 #### [facility] [address] [place] [address] MCV (RBC) [Entitic vol] 89.5 fL Normal 80.0-100.0 [facility] Comment on above: Performed By: #### 1 1536455, 8166462, 3372953, 9689007, 1743464, 6626889, 15308960, 4465486 #### [facility] [address] [place] [address] Platelet mean volume (Bld) [Entitic vol] 7.4 fL Normal 6.4-10.8 [facility] Comment on above: Performed By: #### 1 9160985, 7554236, 9323138, 2888591, 8898374, 3627021, 11066222, 4548794 #### [facility] [address] [place], [place] [address] Platelets (Bld) [#/Vol] 278.0 E9/L Normal 150.0-500.0 [facility] Comment on above: Performed By: #### 1 0190613, 7741885, 9322201, 9522598, 1506055, 0842995, 51809830, 9468586 #### [facility] [address] [place], [place] [address] RBC (Bld) [#/Vol] 4.1 E12/L Low 4.3-5.9 [facility] Comment on above: Performed By: #### 1 0888061, 3315168, 4067367, 7049762, 1526829, 1472975, 25188568, 4124376 #### [facility] [address] [place] [address] WBC corrected for nucl RBC Auto (Bld) [#/Vol] 7.0 E9/L Normal 4.0-11.0 [facility] Comment on above: Performed By: #### 1 2194742, 7762689, 5051632, 4150907, 8524041, 6476253, 21668753, 4015990 #### [facility] [address] [place], [place] [address] Consent for Blood Transfusio non 05-26-2020 Consent for Blood Transfusion [id number]:127 Normal [facility] Consent for Treatmenton Consent for Treatment [id number]:127 Normal [facility] ED Clinical Summaryon 2019 ED Clinical Summary (Inserted Image. Sachi ble to display) [address] [address] ED Clinical Summary Person Information Name: SUKHDEV SCHWARTZ Stacey/[facility] Age: 34 Years : 1985 Sex: Female Language: Palestinian PCP: LOLI MATIAS MD Marital Status: Phone: [phone] MRN: Visit Id: Visit Reason: Nausea; Dizziness; Vaginal bleeding; VAG BLEEDING Speciality: Acuity: 3 Enc Type: Emergency Med Service: Emergency Arrival: 05/26/2020 11:09:13 Discharge: LOS: 000 01:23 Checkin: 05/26/2020 11:09:13 Checkout: Dispo Type: EVENTS: Event Name Event Status Request Date/Time Start Date/Time Complete Date/Time Arrive Complete 05/26/2020 11:09:13 05/26/2020 11:09:13 05/26/2020 11:09:13 Document Home Meds Request 05/26/2020 11:09:13 Triage Complete 05/26/2020 11:09:13 05/26/2020 11:20:57 05/26/2020 11:20:57 Bed Assign Complete 05/26/2020 11:13:57 05/26/2020 11:13:57 05/26/2020 11:13:57 Dr Exam Complete 05/26/2020 11:13:57 05/26/2020 11:23:16 05/26/2020 11:23:16 RN Exam Complete 05/26/2020 11:13:57 05/26/2020 11:55:28 05/26/2020 11:55:28 EKG Cancel 05/26/2020 11:19:03 05/26/2020 11:39:21 Registration Complete 05/26/2020 11:23:16 05/26/2020 11:34:56 05/26/2020 11:34:56 NPO Request 05/26/2020 11:26:28 Meds Admin Complete 05/26/2020 11:26:28 05/26/2020 12:28:05 Pending Labs Request 05/26/2020 11:26:28 Lab Request 05/26/2020 11:26:28 Urine Collect Request 05/26/2020 11:26:28 Patient Care Request 05/26/2020 11:26:28 Reg Complete Request 05/26/2020 11:34:56 Reg Bed Request Complete 05/26/2020 11:34:56 05/26/2020 11:34:56 05/26/2020 11:34:56 Pending Labs Complete 05/26/2020 11:35:50 05/26/2020 11:35:50 05/26/2020 11:58:34 Lab Complete 05/26/2020 11:35:50 05/26/2020 11:35:50 05/26/2020 11:58:34 Pending Labs Complete 05/26/2020 11:43:27 05/26/2020 11:43:27 05/26/2020 11:43:35 Lab Complete 05/26/2020 11:43:27 05/26/2020 11:43:27 05/26/2020 11:43:35 Patient Care Request 05/26/2020 12:15:07 Discharge Request 05/26/2020 12:32:48 ADDRESS: [address] [facility] [id number] [facility] DOC NOTES: MEDICAL INFORMATION: Prescriptions Given: Medications to Continue with No Changes Other Medications acetaminophen (Tylenol Extra Strength 500 mg oral tablet) 1 Tablets By Mouth every 4 hours as needed for fever. biotin 10,000mcg By Mouth every day. cholecalciferol (Vitamin D3 5000 intl units oral capsule) 1 Capsules By Mouth every day. with food. cyanocobalamin (Vitamin B-12) 5,000 Microgram By Mouth every day. ibuprofen (ibuprofen 600 mg Tab) 1 Tablets By Mouth every 6 hours. Refills: 0. levothyroxine (levothyroxine 50 mcg (0.05 mg) Tab) 1 Tablets By Mouth every day. loratadine (loratadine 10 mg Tab) 1 Tablets By Mouth every day. misoprostol (misoprostol 100 mcg Tab) 1 Tablets By Mouth 2 times a day. multivitamin, ( Multivitamins) 1 Tablets By Mouth every day. ranitidine (ranitidine 150 mg Tab) 1 Tablets By Mouth 2 times a day. PATIENT EDUCATION INFORMATION: Instructions: Menorrhagia Follow up: With: Address: When: Davie Grijalva [facility] [address], [facility] [address], [place] [id number] [facility] (1) 05/27/2020 8:45 AM Comments: Return to ED if symptoms worsen. Drink lots of fluids. Return if you have worsening bleeding, pass out, chest pain, shortnes of breath or any other problems. DIAGNOSIS: 1:Menorrhagia Normal [facility] ED Note-Physicianon 05-26-20 ED Note-Physician Basic Information Time Seen: Carline Cain DO 05/26/2020 11:23 Chief Complaint pt reports excessive vaginal bleeding since Wednesday - reports dizziness and nausea. denies . does have apt with Dr. Grijalva tomorrow History of Present Illness Pt 34 yo female presents with heavy vaginal bleeding. Menses started about a week ago, multiple days of heavy bleeding, this morning the bleeding was very heavy which concerned her. She then felt a little dizzy. Her menses normally last about three days with one day that is heavy. It is unusual for her menses to be this heavy or long. She was on multiple hormones for fertility treatment and has been off them for a few months. No history of bleeding problems or having blood transfusions. She is not on any blood thinners. No headache, chest pain, shortness of breath, abdominal pain, back pain, fevers, cough, syncope, falls or problems urinating. She has an appointment with Dr. Grijalva tomorrow. Review of Systems All organ systems are reviewed. Pertinent positive and negative findings as mentioned in the HPI. Physical Exam Vitals & Measurements T: 35.9 ?C (Tympanic) HR: 105(Peripheral) RR: 16 BP: 141/94 SpO2: 99% HT: 183 cm WT: 109 kg BMI: 32.55 Appropriate healthcare PPE was used in evaluating this patient. The patient was placed in a mask. The healthcare provider was wearing N95 mask, gloves, eye protection and utilizing proper hand hygiene. All equipment was properly cleansed. General: alert, no acute distress, here alone Skin: warm, dry, intact, no rashes Head: atraumatic, normocephalic Eye: vision grossly intact, clear conjunctiva ENT: moist mucous membranes, nares clear, voice normal Cardiovascular: regular rate and rhythm, no murmur Respiratory: Lungs CTA, no wheezes/rales/rhonchi, non-labored Gastrointestinal: soft, non-tender, normal bowel sounds, no guarding/rebound tenderness/rigidity : normal external genitalia, speculum exam with moderate dark red blood present with clots, Nurse Topher present for the exam Back: full ROM, no tenderness with palpation Extremities: no deformity, full ROM, normal strength, ambulatory Neurological: alert and oriented, normal speech Procedure Total time: 45 min Impending deterioration: Cardiovascular Associated risk factors: Bleeding Management: Bedside assessment, Supervision of Care Interpretation: labs Interventions: Repeat Hb/Hct, Blood transfusion Case Review: Dr. Grijalva Alternate history: _ Treatment response: To OR for emergent D&C Performed by: Dr. Cain Notes: Medical Decision Making Pt with heavy menses, stable vital signs and normal Hb/Hct. Her HCG is positive, will check Quant HCG and obtain pelvic US. Pt aware and agreeable to Cueto Cath for test. 1246: Pt with Cueto Cath insert, she became very pale, light headed and bradycardia. Second IV placed, attached to heart monitor and additional IVF ordered. Call placed to Dr. Grijalva to discuss Pt. 1252: I spoke with Dr. Grijalva, requested Progesterone level. Keep posted with Quant HCG and Pelvic US. 1506: Repeat Hb/Hct at this time. Re-examined, alert and answers my questions. Pt is in Trendelenburg position. I spoke with Dr. Grijalva about Pt's Quant HCG and US report. Will be to the ED to see the Pt. 1548: Dr. Grijalva performed bedside exam, plan for OR. Assessment/Plan 1. Miscarriage (O03.9: Complete or unspecified spontaneous without complication) 2. Retained products of conception after miscarriage (O03.4: Incomplete spontaneous without complication) 3. 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)) Orders: Lactated Ringers Injection 1,000 mL, 1,000 mL, IV, 250 mL/hr, STAT, Start date 05/26/20 12:54:00 EDT, 4 hour(s), Total volume (mL): 1,000 Sodium Chloride 0.9% intravenous solution, Soln-IV, Misc, Once, Stop date 05/26/20 12:43:49 EDT, Physician Stop, 05/26/20 12:43:49 EDT Sodium Chloride 0.9% intravenous solution 1,000 mL, 1,000 mL, IV, 1,000 mL/hr, for 1 hour(s), Stop date 05/26/20 12:25:00 EDT, STAT, Start date 05/26/20 11:26:00 EDT, 1 hour(s), Total volume (mL): 1,000, Bolus Dose: 1,000 mL Sodium Chloride 0.9% intravenous solution 1,000 mL, 1,000 mL, IV, 1,000 mL/hr, for 30 day(s), Stop date 06/25/20 12:44:00 EDT, STAT, Start date 05/26/20 12:45:00 EDT, 1 hour(s), Total volume (mL): 1,000 Sodium Chloride 0.9% intravenous solution 500 mL, 500 mL, IV, 20 mL/hr, PRN Other (see comment), STAT, Start date 05/26/20 15:46:00 EDT, 25 hour(s), Total volume (mL): 500 ABO/Rh ABO/Rh History Check Antibody Screen Automated Diff Basic Metabolic Panel Beta hCG Qual Beta hCG Quantitative Blood Bank ID# CBC w/ Auto Diff Crossmatch eGFR Hematocrit Hemoglobin Hepatic Function Panel NPO Diet Orthostatic Vitals Signs Pelvic Exam Setup Place in Status Progesterone Level PT & PTT Red Cell Order Saline Lock Insert Saline Lock Insert UA With Cult Reflex Urinary Catheter Insertion US 1st Trimester Medications Administered Given NS 1000 ml Bolus 1,000 mL, 1000 mL, IV Problem List/Past Medical History Ongoing Pancreatitis Historical No qualifying data Procedure/Surgical History Dilation and curettage (10/20/2019), Cholecystectomy (07/19/2019), DIAGNOSTIC LAPAROSCOPY , DIAGNOSTIC HYSTEROSCOPY (03/31/2019), microdissectomy l4-6 (12/2016), gastric sleeve (2017). Medications Inpatient NS 1000 ml Bolus 1,000 mL, 1000 mL, IV Home biotin, 10,000mcg, Oral, Daily ibuprofen 600 mg Tab, 600 mg= 1 tab(s), Oral, q6hr levothyroxine 50 mcg (0.05 mg) Tab, 50 microgram= 1 tab(s), Oral, Daily loratadine 10 mg Tab, 10 mg= 1 tab(s), Oral, Daily misoprostol 100 mcg Tab, 100 microgram= 1 tab(s), Oral, BID Multivitamins, 1 tab(s), Oral, Daily ranitidine 150 mg Tab, 150 mg= 1 tab(s), Oral, BID Tylenol Extra Strength 500 mg oral tablet, 500 mg= 1 tab(s), Oral, q4hr, PRN Vitamin B-12, 5000 microgram, Oral, Daily Vitamin D3 5000 intl units oral capsule, 5000 International_Unit= 1 cap(s), Oral, Daily Allergies Pollen (Hayfever) Levaquin (Liver damage) Social History Alcohol - Denies Alcohol Use, 03/27/2019 Current, 07/17/2019 Household alcohol concerns: No., 04/21/2019 Substance Abuse - Denies Substance Abuse, 03/27/2019 IV drug use: No. Household substance abuse concerns: No., 04/21/2019 Tobacco - Denies Tobacco Use, 03/27/2019 Never (less than 100 in lifetime) Tobacco Use:., 07/28/2019 Never (less than 100 in lifetime) Tobacco Use:. Never Smokeless Tobacco Use:. Household tobacco concerns: No., 06/12/2019 Family History Diabetes mellitus type 2: Mother. Thyroid cancer: Mother and Sister. Lab Results WBC: 7 E9/L (05/26/20 11:25:00) RBC: 4.1 E12/L Low (05/26/20 11:25:00) Hgb: 9 gm/dL Low (05/26/20 15:03:00) Hct: 27 % Low (05/26/20 15:03:00) MCV: 89.5 fL (05/26/20 11:25:00) MCH: 29.8 pg (05/26/20 11:25:00) MCHC: 33.3 gm/dL (05/26/20:25:00) RDW: 12.4 % (05/26/20:25:00) Platelet: 278 E9/L (05/26/20::00) MPV: 7.4 fL (05/26/20:25:00) Neutro Auto: 68.3 % (05/26/20:25:00) Lymph Auto: 22.2 % (05/26/20::) [place] Auto: 6.7 % (05/26/20:25:00) Eos Auto: 2 % (05/26/20::) Basophil Auto: 0.8 % (05/26/20::) Neutro Absolute: 4.8 E9/L (05/26/20:25:00) Lymph Absolute: 1.6 E9/L (05/26/20:25:) [place] Absolute: 0.5 E9/L (05/26/20::) Eos Absolute: 0.1 E9/L (05/26/20:25:00) Basophil Absolute: 0.1 E9/L (05/26/20:25:) PT: 12.5 second(s) (05/26/20:) INR: 1.1 (05/26/20:) PTT: 30.1 second(s) (05/26/20:25:00) Glucose Lvl: 101 mg/dL (05/26/20::00) BUN: 15 mg/dL (05/26/20::00) Creatinine: 0.7 mg/dL (05/26/20:25:00) eGFR: >60 (05/26/20::00) eGFR AA: >60 (05/26/20::) BUN/Creat Ratio: 21 High (05/26/20 11:25:00) Sodium Lvl: 139 mmol/L (05/26/20:25:00) Potassium Lvl: 3.9 mmol/L (05/26/20 11:25:00) Chloride: 105 mmol/L (05/26/20 11:25:00) CO2: 26 mmol/L (05/26/20 11:25:00) AGAP: 12 mEq/L (05/26/20 11:25:00) Calcium Lvl: 9.4 mg/dL (05/26/20 11:25:00) Alk Phos: 47 Int._Unit/L (05/26/20 11:25:00) ALT: 10 Int._Unit/L (05/26/20 11:25:00) AST: 12 Int._Unit/L (05/26/20 11:25:00) Total Protein: 7 gm/dL (05/26/20 11:25:00) Albumin Lvl: 4.1 gm/dL (05/26/20:25:00) Globulin: 2.9 gm/dL (05/26/20:25:00) A/G Ratio: 1.4 (05/26/20 11:25:00) Bili Total: 0.8 mg/dL (05/26/20 11:25:00) Bili Direct: 0.1 mg/dL (05/26/20:25:00) Bili Indirect: 0.7 mg/dL (05/26/20 11:25:00) Progesterone Lvl: 0.9 ng/mL (05/26/20 12:57:00) Beta hCG Qnt: 18 mIU/mL High (05/26/20 11:25:00) Beta hCG Ql: Positive1 (05/26/20 11:25:00) ABO/Rh: O POS (05/26/20 12:57:00) ABSC Gel Interp: Negative (05/26/20 12:57:00) Computer XM Interp: Computer XM OK (05/26/20 12:57:00) Diagnostic Results US 1st Trimester 05/26/20 14:56:59 IMPRESSION: HETEROGENOUS MATERIAL WITHIN THE ENDOMETRIAL CANAL MOST COMPATIBLE WITH RETAINED PRODUCTS OF CONCEPTION AND/OR HEMATOMA. A MORE CIRCUMSCRIBED AND HOMOGENOUSLY ECHOGENIC STRUCTURE WITHIN THE CERVIX MEASURING UP TO 8.8 CM IS NONSPECIFIC AND MOST LIKELY A HEMATOMA HOWEVER UNDERLYING MASS IS NOT EXCLUDED AND CORRELATION WITH PHYSICAL EXAMINATION FINDINGS IS RECOMMENDED. EXAMINATION: US 1st Trimester HISTORY: Vaginal bleeding. Lightheadedness. Dizziness. Nausea. COMPARISON: Pelvic ultrasound from 12/08/2019 TECHNIQUE: Transabdominal ultrasound examination was performed of the pelvis FINDINGS: The uterus measurements and an estimated volume are: Uterus Length: 13.0 cm Uterus Width: 3.5 cm Uterus Height: 3.4 cm Uterus Volume: 80.2 cm3 There is an area of complex echogenicity within the lower uterine segment and measures up to 5.2 cm and demonstrates peripheral and some internal blood flow, compatible with retained products of conception. A nonspecific, more smooth and more homogenous echogenic structure identified within the cervix measuring up to 8.8 cm. The right ovary measurements and estimated volume are: Right Ovary Length: 2.6 cm Right Ovary Width: 2.3 cm Right Ovary Height: 1.6 cm Right Ovary Volume: 5.2 cm3 The left ovary measurements and estimated volume are: Left Ovary Length: 2.3 cm Left Ovary Width: 2.2 cm Left Ovary Height: 1.6 cm Left Ovary Volume: 4.1 cm3 Normal sonographic appearance of the ovaries. Blood flow is identified in both ovaries. No adnexal masses identified. No free fluid identified. Signed By: Faraz Carter DO 05/26/20 14:12:50 LMP : 05-18-2020 Irregular History ? SAB 2 Transabdominal Ultrasound Performed Signed By: Faraz Carter DO [facility] Comment on above: Result Comment: Elec tronically Signed By: Carline Cain DO\.br\Date and Time Signed: 05/26/20 15:49 EDT ED Patient Education Noteon 05-26-2020 ED Patient Education Note Family Medicine Menorrhagia Menorrhagia is the medical term for when your menstrual periods are heavy or last longer than usual. With menorrhagia, every period you have may cause enough blood loss and cramping that you are unable to maintain your usual activities. CAUSES In some cases, the cause of heavy periods is unknown, but a number of conditions may cause menorrhagia. Common causes include: ? A problem with the hormone-producing thyroid gland (hypothyroid). ? Noncancerous growths in the uterus (polyps or fibroids). ? An imbalance of the estrogen and progesterone hormones. ? One of your ovaries not releasing an egg during one or more months. ? Side effects of having an intrauterine device (IUD). ? Side effects of some medicines, such as anti-inflammatory medicines or blood thinners. ? A bleeding disorder that stops your blood from clotting normally. SIGNS AND SYMPTOMS During a normal period, bleeding lasts between 4 and 8 days. Signs that your periods are too heavy include: ? You routinely have to change your pad or tampon every 1 or 2 hours because it is completely soaked. ? You pass blood clots larger than 1 inch (2.5 cm) in size. ? You have bleeding for more than 7 days. ? You need to use pads and tampons at the same time because of heavy bleeding. ? You need to wake up to change your pads or tampons during the night. ? You have symptoms of anemia, such as tiredness, fatigue, or shortness of breath.? DIAGNOSIS Your health care provider will perform a physical exam and ask you questions about your symptoms and menstrual history. Other tests may be ordered based on what the health care provider finds during the exam. These tests can include: ? Blood tests. Blood tests are used to check if you are or have hormonal changes, a bleeding or thyroid disorder, low iron levels (anemia), or other problems. ? Endometrial biopsy. Your health care provider takes a sample of tissue from the inside of your uterus to be examined under a microscope. ? Pelvic ultrasound. This test uses sound waves to make a picture of your uterus, ovaries, and vagina. The pictures can show if you have fibroids or other growths. ? Hysteroscopy. For this test, your health care provider will use a small telescope to look inside your uterus. Based on the results of your initial tests, your health care provider may recommend further testing. TREATMENT Treatment may not be needed. If it is needed, your health care provider may recommend treatment with one or more medicines first. If these do not reduce bleeding enough, a surgical treatment might be an option. The best treatment for you will depend on: ? Whether you need to prevent .?? ? Your desire to have children in the future. ? The cause and severity of your bleeding. ? Your opinion and personal preference. ? Medicines for menorrhagia may include: ? control methods that use hormones. These include the pill, skin patch, vaginal ring, shots that you get every 3 months, hormonal IUD, and implant. These treatments reduce bleeding during your menstrual period. ? Medicines that thicken blood and slow bleeding. ? Medicines that reduce swelling, such as ibuprofen.? ? Medicines that contain a synthetic hormone called progestin. ? ? Medicines that make the ovaries stop working for a short time. ? You may need surgical treatment for menorrhagia if the medicines are unsuccessful. Treatment options include: ? Dilation and curettage (D&C). In this procedure, your health care provider opens (dilates) your cervix and then scrapes or suctions tissue from the lining of your uterus to reduce menstrual bleeding. ? Operative hysteroscopy. This procedure uses a tiny tube with a light (hysteroscope) to view your uterine cavity and can help in the surgical removal of a polyp that may be causing heavy periods. ? Endometrial ablation. Through various techniques, your health care provider permanently destroys the entire lining of your uterus (endometrium). After endometrial ablation, most women have little or no menstrual flow. Endometrial ablation reduces your ability to become . ? Endometrial resection. This surgical procedure uses an electrosurgical wire loop to remove the lining of the uterus. This procedure also reduces your ability to become . ? Hysterectomy. Surgical removal of the uterus and cervix is a permanent procedure that stops menstrual periods. is not possible after a hysterectomy. This procedure requires anesthesia and hospitalization. HOME CARE INSTRUCTIONS ? Only take pndw-uaj-mniuxsj or prescription medicines as directed by your health care provider. Take prescribed medicines exactly as directed. Do not change or switch medicines without consulting your health care provider. ? Take any prescribed iron pills exactly as directed by your health care provider. Long-term heavy bleeding may result in low iron levels. Iron pills help replace the iron your body lost from heavy bleeding. Iron may cause constipation. If this becomes a problem, increase the bran, fruits, and roughage in your diet. ? Do not take aspirin or medicines that contain aspirin 1 week before or during your menstrual period. Aspirin may make the bleeding worse. ? If you need to change your sanitary pad or tampon more than once every 2 hours, stay in bed and rest as much as possible until the bleeding stops. ? Eat well-balanced meals. Eat foods high in iron. Examples are leafy green vegetables, meat, liver, eggs, and whole grain breads and cereals. Do not try to lose weight until the abnormal bleeding has stopped and your blood iron level is back to normal. SEEK MEDICAL CARE IF: ? You soak through a pad or tampon every 1 or 2 hours, and this happens every time you have a period. ? You need to use pads and tampons at the same time because you are bleeding so much. ? You need to change your pad or tampon during the night. ? You have a period that lasts for more than 8 days. ? You pass clots bigger than 1 inch wide. ? You have irregular periods that happen more or less often than once a month. ? You feel dizzy or faint. ? You feel very weak or tired. ? You feel short of breath or feel your heart is beating too fast when you exercise. ? You have nausea and vomiting or diarrhea while you are taking your medicine. ? You have any problems that may be related to the medicine you are taking. SEEK IMMEDIATE MEDICAL CARE IF: ? You soak through 4 or more pads or tampons in 2 hours. ? You have any bleeding while you are . MAKE SURE YOU: ? Understand these instructions. ? Will watch your condition. ? Will get help right away if you are not doing well or get worse. Document Released: 10/04/2006 Document Revised: 10/09/2014 Document Reviewed: 03/25/2014 ExitCare? Patient Information ?2015 Home Delivery Service (HDS). This information is not intended to replace advice given to you by your health care provider. Make sure you discuss any questions you have with your health care provider. Normal [facility] ED Patient Summaryon 020 ED Patient Summary (Inserted Image. Sachi ble to display) [place] [id number] Patient Discharge Instructions Person Information Name: SUKHDEV SCHWARTZ Age: 34 Years Arrival Date: 05/26/2020 11:09:13 Discharge Diagnosis: 1:Menorrhagia Primary Care Physician: LOLI MATIAS MD Provider Information Primary Provider: Carline Cain DO Advanced [employer] Block Machine Operator:None The exam and treatment you received in the Emergency Department were for an urgent problem and are not intended as complete care. It is important that you follow up with a doctor, nurse practitioner, or physician?s bankruptcy assistant for ongoing care. If your symptoms become worse or you do not improve as expected and you are unable to reach your usual health care provider, you should return to the Emergency Department. We are available 24 hours a day. SUKHDEV SCHWRATZ has been given the following list of patient education materials, prescriptions and follow-up instructions: Follow-up Instructions: With: Address: When: Davie ISSA, [facility] [address] [facility] [place] [id number] [facility] (1) 05/27/2020 8:45 AM Comments: Return to ED if symptoms worsen. Drink lots of fluids. Return if you have worsening bleeding, pass out, chest pain, shortnes of breath or any other problems. In the event that this physician does not participate in your insurance network, please consult with your insurance company to find a nearby participating provider. Patient Education Materials: Menorrhagia A MESSAGE TO ALL PATIENTS REGARDING OPIOIDS PRESCRIPTION OPIOIDS: WHAT YOU NEED TO KNOW Prescription opioids can be used to help relieve kvbxkhur-vo-nhartn pain and are often prescribed following a surgery or injury, or for certain health conditions. These medications can be an important part of the treatment but also come with serious risks. It is important to work with your healthcare provider to make sure you are getting the safest, most effective care. WHAT ARE THE RISKS AND SIDE EFFECTS OF OPIOID USE? Prescription opioids carry serious risks of addiction and overdose, especially with prolonged use. An opioid overdose, often marked by slowed breathing, can cause sudden . The use of prescription opioids can have a number of side effects as well, even when taken as directed: ? Tolerance?meaning you might need to take more of the medication for the same pain relief ? Physical dependence?meaning you have symptoms of withdrawal when a medication is stopped ? Increased sensitivity to pain ? Constipation ? Nausea, vomiting, and dry mouth ? Sleepiness and dizziness ? Confusion ? Depression ? Low levels of testosterone that can result in lower sex drive, energy, and strength ? Itching and sweating RISKS ARE GREATER WITH: ? History of drug misuse, substance use disorder, or overdose ? Mental health conditions (such as depression or anxiety) ? Sleep apnea ? Older age (65 years and older) ? Avoid alcohol while taking prescription opioids. Also, unless specifically advised by your health care provider, medications to avoid include: ? Benzodiazepines (such as Xanax or Valium) ? Muscle relaxants (such as Soma or Flexeril) ? Hypnotics (such as Ambien or Lunesta) ? Other prescription opioids KNOW YOUR OPTIONS Talk to your health care provider about ways to manage your pain that don?t involve prescription opioids. Some of these options may actually work better and have fewer risks and side effects. Options may include: ? Pain relievers such as acetaminophen, ibuprofen, and naproxen ? Some medication that are also used for depression or seizures ? Physical therapy and exercise ? Cognitive behavioral therapy, a psychological, goal-directed approach, in which patients learn how to modify physical, behavioral, and emotional triggers of pain and stress. IF YOU ARE PRESCRIBED OPIOIDS FOR PAIN: ? Never take opioids in greater amounts or more often than prescribed. ? Follow up with your primary health care provider. o Work together to create a plan on how to manage your pain. o Talk about ways to help manage your pain that don?t involve prescription opioids. o Talk about any and all concerns and side effects. ? Help prevent misuse and abuse o Never sell or share prescription opioids. o Never use another person?s prescription opioids. ? Store prescription opioids in a secure place and out of reach of others (this may include visitors, children, friends, and family). ? Safely dispose of unused prescription opioids: Find your community drug take-back program or your pharmacy mail-back program, or flush them down the toilet, following guidance from the Food and Drug Administration (www.fda.gov/Drugs/Resourc esForYou). ? Visit www.cdc.gov/drugoverdose to learn about the risks of opioids abuse and overdose. ? If you believe you may be struggling with addiction, tell your health day care worker and ask for guidance or call [facility]?S National Helpline at 6-403-802-UBCF. v Source: US Department of Health and Human Services/Center for Disease Control & Prevention [facility] Medications Given: Medication Dose Route Sodium Chloride 0.9% intravenous solution 1000.00 mL Initial Volume 1000.00 mL/hr IV Right Antecubit Ana Medication Information: Medications to Continue with No Changes Other Medications acetaminophen (Tylenol Extra Strength 500 mg oral tablet) 1 Tablets By Mouth every 4 hours as needed for fever. biotin 10,000mcg By Mouth every day. cholecalciferol (Vitamin D3 5000 intl units oral capsule) 1 Capsules By Mouth every day. with food. cyanocobalamin (Vitamin B-12) 5,000 Microgram By Mouth every day. ibuprofen (ibuprofen 600 mg Tab) 1 Tablets By Mouth every 6 hours. Refills: 0. levothyroxine (levothyroxine 50 mcg (0.05 mg) Tab) 1 Tablets By Mouth every day. loratadine (loratadine 10 mg Tab) 1 Tablets By Mouth every day. misoprostol (misoprostol 100 mcg Tab) 1 Tablets By Mouth 2 times a day. multivitamin, ( Multivitamins) 1 Tablets By Mouth every day. ranitidine (ranitidine 150 mg Tab) 1 Tablets By Mouth 2 times a day. Comment: Pharmacy Information: Thank you for choosing [facility] Patient Education Materials: Menorrhagia Menorrhagia is the medical term for when your menstrual periods are heavy or last longer than usual. With menorrhagia, every period you have may cause enough blood loss and cramping that you are unable to maintain your usual activities. CAUSES In some cases, the cause of heavy periods is unknown, but a number of conditions may cause menorrhagia. Common causes include: ? A problem with the hormone-producing thyroid gland (hypothyroid). ? Noncancerous growths in the uterus (polyps or fibroids). ? An imbalance of the estrogen and progesterone hormones. ? One of your ovaries not releasing an egg during one or more months. ? Side effects of having an intrauterine device (IUD). ? Side effects of some medicines, such as anti-inflammatory medicines or blood thinners. ? A bleeding disorder that stops your blood from clotting normally. SIGNS AND SYMPTOMS During a normal period, bleeding lasts between 4 and 8 days. Signs that your periods are too heavy include: ? You routinely have to change your pad or tampon every 1 or 2 hours because it is completely soaked. ? You pass blood clots larger than 1 inch (2.5 cm) in size. ? You have bleeding for more than 7 days. ? You need to use pads and tampons at the same time because of heavy bleeding. ? You need to wake up to change your pads or tampons during the night. ? You have symptoms of anemia, such as tiredness, fatigue, or shortness of breath.? DIAGNOSIS Your health care provider will perform a physical exam and ask you questions about your symptoms and menstrual history. Other tests may be ordered based on what the health care provider finds during the exam. These tests can include: ? Blood tests. Blood tests are used to check if you are or have hormonal changes, a bleeding or thyroid disorder, low iron levels (anemia), or other problems. ? Endometrial biopsy. Your health care provider takes a sample of tissue from the inside of your uterus to be examined under a microscope. ? Pelvic ultrasound. This test uses sound waves to make a picture of your uterus, ovaries, and vagina. The pictures can show if you have fibroids or other growths. ? Hysteroscopy. For this test, your health care provider will use a small telescope to look inside your uterus. Based on the results of your initial tests, your health care provider may recommend further testing. TREATMENT Treatment may not be needed. If it is needed, your health care provider may recommend treatment with one or more medicines first. If these do not reduce bleeding enough, a surgical treatment might be an option. The best treatment for you will depend on: ? Whether you need to prevent .?? ? Your desire to have children in the future. ? The cause and severity of your bleeding. ? Your opinion and personal preference. ? Medicines for menorrhagia may include: ? control methods that use hormones. These include the pill, skin patch, vaginal ring, shots that you get every 3 months, hormonal IUD, and implant. These treatments reduce bleeding during your menstrual period. ? Medicines that thicken blood and slow bleeding. ? Medicines that reduce swelling, such as ibuprofen.? ? Medicines that contain a synthetic hormone called progestin. ? ? Medicines that make the ovaries stop working for a short time. ? You may need surgical treatment for menorrhagia if the medicines are unsuccessful. Treatment options include: ? Dilation and curettage (D&C). In this procedure, your health care provider opens (dilates) your cervix and then scrapes or suctions tissue from the lining of your uterus to reduce menstrual bleeding. ? Operative hysteroscopy. This procedure uses a tiny tube with a light (hysteroscope) to view your uterine cavity and can help in the surgical removal of a polyp that may be causing heavy periods. ? Endometrial ablation. Through various techniques, your health care provider permanently destroys the entire lining of your uterus (endometrium). After endometrial ablation, most women have little or no menstrual flow. Endometrial ablation reduces your ability to become . ? Endometrial resection. This surgical procedure uses an electrosurgical wire loop to remove the lining of the uterus. This procedure also reduces your ability to become . ? Hysterectomy. Surgical removal of the uterus and cervix is a permanent procedure that stops menstrual periods. is not possible after a hysterectomy. This procedure requires anesthesia and hospitalization. HOME CARE INSTRUCTIONS ? Only take vnsy-rsd-keisprt or prescription medicines as directed by your health care provider. Take prescribed medicines exactly as directed. Do not change or switch medicines without consulting your health care provider. ? Take any prescribed iron pills exactly as directed by your health care provider. Long-term heavy bleeding may result in low iron levels. Iron pills help replace the iron your body lost from heavy bleeding. Iron may cause constipation. If this becomes a problem, increase the bran, fruits, and roughage in your diet. ? Do not take aspirin or medicines that contain aspirin 1 week before or during your menstrual period. Aspirin may make the bleeding worse. ? If you need to change your sanitary pad or tampon more than once every 2 hours, stay in bed and rest as much as possible until the bleeding stops. ? Eat well-balanced meals. Eat foods high in iron. Examples are leafy green vegetables, meat, liver, eggs, and whole grain breads and cereals. Do not try to lose weight until the abnormal bleeding has stopped and your blood iron level is back to normal. SEEK MEDICAL CARE IF: ? You soak through a pad or tampon every 1 or 2 hours, and this happens every time you have a period. ? You need to use pads and tampons at the same time because you are bleeding so much. ? You need to change your pad or tampon during the night. ? You have a period that lasts for more than 8 days. ? You pass clots bigger than 1 inch wide. ? You have irregular periods that happen more or less often than once a month. ? You feel dizzy or faint. ? You feel very weak or tired. ? You feel short of breath or feel your heart is beating too fast when you exercise. ? You have nausea and vomiting or diarrhea while you are taking your medicine. ? You have any problems that may be related to the medicine you are taking. SEEK IMMEDIATE MEDICAL CARE IF: ? You soak through 4 or more pads or tampons in 2 hours. ? You have any bleeding while you are . MAKE SURE YOU: ? Understand these instructions. ? Will watch your condition. ? Will get help right away if you are not doing well or get worse. Document Released: 10/04/2006 Document Revised: 10/09/2014 Document Reviewed: 03/25/2014 ExitCare? Patient Information ?2015 Home Delivery Service (HDS). This information is not intended to replace advice given to you by your health care provider. Make sure you discuss any questions you have with your health care provider. JAMES Bain BRITTANY F , have received the following patient education materials/instructions and have verbalized understanding: Patient Education Materials: Menorrhagia Follow-up Instructions: With: Address: When: Davie Grijalva [address] [place] [address], [place] [address], [place] [address] [facility] (1) 05/27/2020 8:45 AM Comments: Return to ED if symptoms worsen. Drink lots of fluids. Return if you have worsening bleeding, pass out, chest pain, shortnes of breath or any other problems. Patient Signature __ Date Clinician/Nurse Signature Date 05/26/2020 12:32:58 Normal [facility] FFPon 05-26-2020 # of Units 2 [facility] Comment on above: Result Comment: 2019 17:56 [id number] Blood product ready and called to Jaki/OB at 05/26/2020 17:56:49 EDT by AL. Performed By: #### 1 [id number], 5398211, 7254198, 5824083, 4300640, 4585193, 42775314, 2409085 #### [facility] [address] [place] [address] Date Required [id number] [facility] Comment on above: Performed By: #### 1 [id number], 9672497, 3701833, 9598665, 1922580, 3044194, 06258094, 3747831 #### [facility] [address] [place] [address] Order to Transfuse YES [facility] Comment on above: Performed By: #### 1 9597722, 1776333, 4670315, 9847631, 4001624, 7420794, 81182637, 4430945 #### [facility] [address] [place] [address] Hematocriton 05-26-2020 Hematocrit (Bld) [Volume fraction] 27.0 % Low 34.0-46.0 [facility] Comment on above: Performed By: #### 1 [id number], 6033683, 7797595, 8652948, 1967373, 4347498, 53529139, 1045842 #### [facility] [address] [place] [address] Hemoglobinon 05-26-2020 Hemoglobin (Bld) [Mass/Vol] 9.0 g/dL Low 12.0-16.0 [facility] Comment on above: Performed By: #### 1 9746757, 9359188, 8437791, 4200281, 1626383, 3840024, 07335376, 4159256 #### [facility] [address] [place] [address] Hep Func Panelon 05-26-2020 Albumin [Mass/Vol] 1.4 g/dL Normal 1.1-2.2 [facility] Comment on above: Performed By: #### 1 2294048, 7889282, 3150964, 9664547, 8884753, 9510861, 58039429, 2748101 #### [facility] [address] [place] [address] Albumin [Mass/Vol] 4.1 g/dL Normal 3.3-5.0 [facility] Comment on above: Performed By: #### 1 6122126, 7997498, 1093345, 1666870, 9418424, 9691150, 45613284, 9747661 #### [facility] [address] [place] [address] ALP [Catalytic activity/Vol] 47 Int._Unit/L Normal 21-98 [facility] Comment on above: Performed By: #### 1 7230414, 9400998, 0880276, 0561844, 1129401, 7255783, 94724793, 3793753 #### [facility] [address] [place] [address] ALT No additional P-5'-P [Catalytic activity/Vol] 10 Int._Unit/L Normal 6-46 [facility] Comment on above: Performed By: #### 1 8303572, 4817402, 6458518, 3986033, 8242229, 8636532, 18371428, 3259205 #### [facility] [address] [place] [address] AST [Catalytic activity/Vol] 12 Int._Unit/L Normal 5-43 [facility] Comment on above: Performed By: #### 1 0028816, 2411744, 7342754, 6017877, 3406424, 2893819, 42120749, 0041415 #### [facility] [address] [place] [address] Bilirubin [Mass/Vol] 0.8 mg/dL Normal 0.0-1.1 [facility] Comment on above: Performed By: #### 1 8248543, 3024330, 0181399, 1914771, 2842948, 4735667, 14728836, 3016967 #### [facility] [address] [place] [address] Bilirubin.direct [Mass/Vol] 0.7 mg/dL Normal 0.1-0.9 [facility] Comment on above: Performed By: #### 1 0307953, 7694993, 8230569, 4237420, 3828710, 0529975, 33482509, 9828394 #### [facility] [address] [place] [address] Bilirubin.direct [Mass/Vol] 0.1 mg/dL Normal 0.1-0.4 [facility] Comment on above: Performed By: #### 1 9784289, 6740694, 4333286, 2155189, 8204091, 3524629, 40000058, 0803452 #### [facility] [address] [place] [address] Globulin (S) [Mass/Vol] 2.9 g/dL Normal 1.4-4.0 [facility] Comment on above: Performed By: #### 1 5249066, 7363908, 4623841, 1622448, 3476440, 6004840, 90953806, 2686462 #### [facility] [address] [place] [address] Protein [Mass/Vol] 7.0 g/dL Normal 6.0-7.8 [facility] Comment on above: Performed By: #### 1 2657581, 9853978, 2695406, 6929081, 1592786, 2144613, 85124073, 5977486 #### [facility] [address] [place] [address] Main OR PACU I Recordon Main OR PACU I Record PACU Phase I Document Type FT Summary Primary Physician: Davie Grijalva MD Finalized Date/Time: 05/26/20 20:48:43 Pt. Name: SUKHDEV SCHWARTZ/Sex: 1985 Female Med Rec #: [id number] Physician: Davie Grijalva MD Financial #: [id number] Pt. Type: O Room/Bed: N410/01 Admit/Disch: 05/26/20 11:09:13 - Institution: Case Times PACU I FT Pre-Care Text: Identifies barriers to communication and implements measures to provide psychological support Develops individualized plan of care, and ensures continuity of care Maintains patient's dignity and privacy, and maintains patient confidentiality Identifies and reports philosophical, cultural, and spiritual beliefs and values Identifies individual values and wishes concerning care Implements aseptic technique, and administers prescribed antibiotic therapy and immunizing agents as ordered Evaluates postoperative tissue perfusion Implements thermoregulation measures, and monitors body temperature Evaluates postoperative respiratory status Evaluates postoperative cardiac status Evaluates postoperative neurological status Assesses pain control, collaborated in initiating patient-controlled analgesia and implements alternative methods of pain control Verifies allergies, administers prescribed medications and solutions, evaluates response to medications Entry 1 In PACU I 05/26/20 17:15:00 Discharge from PACU 05/26/20 18:35:00 I Outcomes Met? Yes Last Modified By: Lauren Reed RN 05/26/20 20:48:27 Post-Care Text: The patient demonstrates knowledge of the expected response to the operative or invasive procedure The patient's care is consistent with the individualized perioperative plan of care The patient's right to privacy is maintained The patient's value system, lifestyle, ethnicity, and culture are considered, respected, and incorporated into the perioperative plan of care The patient participates in decisions affecting his or her perioperative plan of care The patient is free from signs and symptoms of infection The patient has wound/tissue perfusion consistent with or improved from baseline levels established preoperatively The patient is at or returning to normothermia at the conclusion of the immediate postoperative period The patient's respiratory function is consistent with or improved from baseline levels established preoperatively The patient's cardiovascular status is consistent with or improved from baseline levels established preoperatively The patient's cardiovascular status is consistent with or improved from baseline levels established preoperatively The patient demonstrates and/or reports adequate pain control throughout the perioperative period The patient received appropriate medication(s), safely administered during the perioperative period Acuity Level PACU I FT Entry 1 Start Time 05/26/20 17:15:00 Stop Time 05/26/20 18:35:00 Acuity Level Acuity Level I Last Modified By: Lauren Reed RN 05/26/20 20:48:40 Finalized By: Lauren Reed RN Document Signatures Signed By: Lauren Reed RN 05/26/20 20:48 Normal [facility] Main OR Preoperative Recordo n 05-26-2020 Main OR Preoperative Record Holding Area Document Type FT Summary Primary Physician: Davie Grijalva MD Finalized Date/Time: 05/26/20 20:04:05 Pt. Name: SUKHDEV SCHWARTZ /Sex: 1985 Female Med Rec #: [id number] Physician: Davie Grijalva MD Financial #: [id number] Pt. Type: O Room/Bed: [facility]/ Admit/Disch: 05/26/20 11:09:13 - Institution: Case Times Holding FT Pre-Care Text: Verifies consent for planned procedure, identifies individual values and wishes concerning care, includes family members in perioperative teaching Secures patient's records' belongings, and valuables, maintains patient's dignity and privacy, and maintains patient confidentiality Entry 1 In Holding 05/26/20 15:50:00 Outcomes Met? Yes Last Modified By: Rena Castelan RN 05/26/20 20:00:43 Post-Care Text: The patient participates in decisions affecting his or her perioperative plan of care The patient's right to privacy is maintained Surgery Checklist FT Entry 1 Patient Birthday, ID Band Procedure History and Physical, Identification: Check, Patient Verification: Surgical Consent, With Participation Patient NPO after Midnight: No Date/Time: 05/26/20 08:00:00 Preop Results Labs Personal Items: Glasses Reviewed: Complaints of Pain: No Operative Site n/a Marking: Availability Equipment Verified: Does Patient Smoke No Patient states Yes Comment - Adult Observation postop adult Supervision supervision available Case Cancelled in No Holding Area see comments below for reason Last Modified By: Rena Castelan RN 05/26/20 20:03:34 General Comments: Glass of water at 0800-JOLEEN [place] Finalized By: Rena Castelan RN Document Signatures Signed By: Rena Castelan RN 05/26/20 20:04 Normal [facility] Monitor Recordon 05-26-2020 Monitor Record [id number]:127 Normal [facility] Monitor Record [id number]:127 Normal [facility] Monitor Record [id number]#[id number]:127 Normal [facility] Monitor Record [id number]#[id number]:127 Normal [facility] Monitor Record [id number]#[id number]:127 Normal [facility] Monitor Record [id number]#[id number]:127 Normal [facility] PT & PTTon 05-26-2020 aPTT Coag (PPP) [Time] 30.1 second(s) Normal 25.1-36.5 [facility] Comment on above: Result Comment: Hepa rin therapeutic range (represented by Anti-Factor Xa activity of 0.2 - 0.4 U/mL) corresponds to PTT of 56.6 - 109.0 sec. Performed By: #### 1 [id number], 5967129, 2077939, 4865389, 4907291, 9396895, 28113625, 6726513 #### [facility] [address] [place] [address] INR Coag (PPP) [Relative time] 1.1 {INR} [facility] Comment on above: Result Comment: INR results are specifically intended to assess patients stabilized on long-term Anticoagulation therapy suggested INR?s ?Less Intensive Anticoagulation? 2.0 ? 3.0 Conventional Range 3.0 ? 4.5 Performed By: #### 1 [id number], 1696505, 7703618, 1340250, 4457527, 8211069, 88842779, 4283946 #### [facility] [address] [place] [address] PT Coag (PPP) [Time] 12.5 second(s) Normal 10.2-12.9 [facility] Comment on above: Performed By: #### 1 3881707, 5142610, 5443296, 5617552, 3646918, 7699896, 93042625, 8497366 #### [facility] [address] [place] [address] Progesteroneon 05-26-2020 Progesterone [Mass/Vol] 0.90 ng/mL [facility] Comment on above: Result Comment: REFE RENCE RANGE Males 0.14-2.06 ng/mL Non- Females Follicular 0.10-0.60 ng/mL Luteal 3.00-17.5 ng/mL Midluteal 3.30-18.6 ng/mL Post-Menopausal 0.10-0.40 ng/mL First Trimester 8.30-66.5 ng/mL Second Trimester 18.9-66.1 ng/mL Third Trimester 35.8-312.4 ng/mL Performed By: #### 1 1391250, 9960143, 3023318, 4627878, 3474317, 8740331, 43189708, 0946658 #### [facility] [address] [place] [address] Progress Note-Nurseon 2019 Progress Note-Nurse Blood obtained per Rhoda Grijalva order and patient taken to surgery. Blood given to Lauren in surgery. Normal [facility] Progress Note-Nurse Dr. Grijalva in at [facility] with pelvic tray and patient and patient begin to bleed heavily and pt heart rate decreased to 50's and patient BP registered in the 60's. pt pale and clammy. Pt in Trendelenburg and fluids open wide. Patient blood pressure up to 100's and HR in the 70's and Dr. Grijalva at [facility] Normal [facility] Progress Note-Nurse Ultrasound at [facility] de to perform beside US Normal [facility] Progress Note-Nurse Patient coloring imp roved at this time and patient VS improved. Dr. Cain aware and awaiting US Normal [facility] Progress Note-Nurse This nurse and Elsie madsen RN and Altagracia Gilmore Rn in to insert cueto and patient tolerated well, heavy vagina bleeding noted. Patient pale and diaphoretic HR 130's and patient blood pressure in the low 90's. Fluid bolus running and patient places in trendleburg. Patient heart rate drop to 50's and pt verbalized I do not feel well . Patient places on fast patches. 2L running at this time and 2 IV started per Altagracia Godinez. Dr. Cain at [facility]. Patient verbalized she is starting to feel better at this time Normal [facility] Progress Note-Physicianon Progress Note-Physician Patient: SUKHDEV SCHWARTZ Age: 34 years Sex: Female : 1985 Associated Diagnoses: None Author: Jerel Martin JR, DO Preoperative Information Anesthesia history: Patient History: Pt./ family denies any personal or family hx of problems/difficulties with anesthesia.. Re-eval prior to induction: Inital eval reviewed: No significant interval change, NPO 10 hours.. Review of Systems Constitutional: See nursing assessment.. Cardiovascular: Cardiac risk assessment performed. Pt. denies any significant change in their cv hx.. Respiratory: Pt. denies any signicant change in their respiratory status.. Neurologic: Pt. denies any acute neurological changes.. Health Status Allergies: Allergic Reactions (Selected) Severe Pollen- Hayfever. Severity Not Documented Levaquin- Liver damage., Allergies (2) Active Reaction Pollen Hayfever Levaquin Liver damage Current medications: (Selected) Inpatient Medications Ordered HYDROmorphone 1 mg/mL injectable solution: 0.2 mg = 0.2 mL, Injection, IV Push, q2min PRN Pain for 10 dose(s), Stop date Limited # of times, STAT, Start date 05/26/20 17:15:00 EDT Lactated Ringers IV Sherrie 1000 mL 1,000 mL: 1,000 mL, IV, 100 mL/hr, Routine, Start date 05/26/20 17:15:00 EDT, 10 hour(s), Total volume (mL): 1,000, 2.3, m2 Lactated Ringers IV Sherrie 1000 mL 1,000 mL: 1,000 mL, IV, 250 mL/hr, STAT, Start date 05/26/20 12:54:00 EDT, 4 hour(s), Total volume (mL): 1,000 Phenergan 25 mg/mL Injection: 12.5 mg = 0.5 mL, Injection, IV Push, q2min PRN Other (see comment) for 2 dose(s), Stop date Limited # of times, Routine, Start date 05/26/20 17:15:00 EDT Sodium Chloride 0.9% IV Sherrie 1000 mL 1,000 mL: 1,000 mL, IV, 1,000 mL/hr, for 30 day(s), Stop date 06/25/20 12:44:00 EDT, STAT, Start date 05/26/20 12:45:00 EDT, 1 hour(s), Total volume (mL): 1,000 Sodium Chloride 0.9% IV Sherrie 500 mL 500 mL: 500 mL, IV, 20 mL/hr, PRN Other (see comment), STAT, Start date 05/26/20 15:46:00 EDT, 25 hour(s), Total volume (mL): 500 Prescriptions Prescribed ibuprofen 600 mg Tab: 600 mg = 1 tab(s), Oral, q6hr, # 15 tab(s), Refills(s) 0, Pharmacy: [facility] Documented Medications Documented Multivitamins: 1 tab(s), Oral, Daily, Refill(s) 0, Prophylaxis Tylenol Extra Strength 500 mg oral tablet: 500 mg = 1 tab(s), Oral, q4hr, PRN for fever, # 60 tab(s), Refills(s) 0 Vitamin B-12: 5,000 microgram, Oral, Daily, Refills(s) 0, Prophylaxis Vitamin D3 5000 intl units oral capsule: 5,000 International_Unit = 1 cap(s), Oral, Daily, with food, # 100 cap(s), Refills(s) 0, Prophylaxis biotin: 10,000mcg, Oral, Daily, Refills(s) 0, Prophylaxis levothyroxine 50 mcg (0.05 mg) Tab: 50 microgram = 1 tab(s), Oral, Daily, Refills(s) 0, Thyroid loratadine 10 mg Tab: 10 mg = 1 tab(s), Oral, Daily, Refills(s) 0, Allergy symptoms misoprostol 100 mcg Tab: 100 microgram = 1 tab(s), Oral, BID, Refills(s) 0, Other (see comment) ranitidine 150 mg Tab: 150 mg = 1 tab(s), Oral, BID, Refills(s) 0, Control of stomach acid, Medications (6) Active Scheduled: (0) Continuous: (3) Lactated Ringers 1,000 mL 1,000 mL, IV, 250 mL/hr Lactated Ringers 1,000 mL 1,000 mL, IV, 100 mL/hr Sodium Chloride 0.9% 1,000 mL 1,000 mL, IV, 1,000 mL/hr PRN: (3) HYDROmorphone 1 mg/mL SOLN [F] 0.2 mg 0.2 mL, IV Push, q2min promethazine 25 mg/mL Inj [F] 12.5 mg 0.5 mL, IV Push, q2min Sodium Chloride 0.9% 500 mL 500 mL, IV Problem list: All Problems Pancreatitis / SNOMED CT 329326047 / Confirmed Incomplete miscarriage / SNOMED CT 856477003 / Confirmed missed Ovarian dysfunction / SNOMED CT 31494678 / Confirmed Hypothyroidism / SNOMED CT 32182900 / Confirmed, Active Problems (4) Hypothyroidism Incomplete miscarriage Ovarian dysfunction Pancreatitis Histories Past Medical History: No active or resolved past medical history items have been selected or recorded. Family History: Diabetes mellitus type 2 Mother Thyroid cancer Mother Sister Procedure history: Dilation and curettage ([id number]) on 10/20/2019 at 33 Years. Comments: 10/20/2019 19:10 Kat Rosenbaum RN DILATION & SUCTION CURETTAGE Cholecystectomy ([id number]) on 07/19/2019 at 33 Years. DIAGNOSTIC LAPAROSCOPY , DIAGNOSTIC HYSTEROSCOPY on 03/31/2019 at 33 Years. gastric sleeve in 2017 at 31 Years. microdissectomy l4-6 in the month of 12/2016 at 30 Years. Social History Social & Psychosocial Habits Alcohol 03/27/2019 Risk Assessment: Denies Alcohol Use 04/21/2019 Concerns about alcohol use in household: No Comment: The patient denies any alcohol use, tobacco use, or substance abuse. - 04/21/2019 01:38 - Jeanette Parks RN 07/17/2019 Use: Current Comment: Denies - 07/17/2019 21:14 Yaneli Bishop RN Substance Abuse 03/27/2019 Risk Assessment: Denies Substance Abuse 04/21/2019 IV drug use: No Concerns about substance abuse in household: No Comment: Denies - 07/17/2019 21:14 Yaneli Bishop RN Tobacco 03/27/2019 Risk Assessment: Denies Tobacco Use 06/12/2019 Tobacco Use: Never (less than 100 in l Smokeless tobacco use: Never Concerns about tobacco use in household: No Comment: Denies - 07/17/2019 21:14 Yaneli Bishop RN/11/2019 Tobacco Use: Never (less than 100 in l . Physical Examination Vital Signs (last 24 hrs) Last Charted Temp Tympanic L 35.9DegC (MAY 26:14) Heart Rate Peripheral H 105bpm (MAY 26:14) Resp Rate 16 br/min (MAY 26 15:17) SBP 108 mmHg (MAY 26 15:45) DBP H 93mmHg (MAY 26 15:45) SpO2 100 % (MAY 26 15:45) Weight 109 kg (MAY 26:14) Height 183 cm (MAY 26:14) BMI 32.55 (MAY 26:14) Airway: Normal oral/pharyngeal anatomy.. Respiratory: Adequate air exchange.. Cardiovascular: Adequate perfusion and function. Review / Management Results review: Labs (Last four charted values) Hgb L 9.0 (MAY 26) 12.2 (MAY 26) Hct L 27.0 (MAY 26) 36.6 (MAY 26) Cr 0.7 (MAY 26) . Plan [employer] [employer]hesi[employer] (ASA) physical status classification: Class III, E. Anesthetic Preoperative Plan Anesthesia: General. . Anesthetic plan, risks, benefits, and alternatives discussed with the patient and/or family. Pt. and/or family present and agree to proceed as planned.. Discussed the importance of abstaining from tobacco products, and offered counseling if desired. Normal [facility] Comment on above: Result Comment: Elec tronically Signed By: Jerel Martin JR, DO\.yvonne\Date and Time Signed: 05/26/20 17:16 EDT [facility] 05-26-2020 # of Units 4 [facility] Comment on above: Result Comment: 2019 18:39 [id number] Blood product ready and called to Jaki/OB at 05/26/2020 18:39:16 EDT by AL. Performed By: #### 1 [id number], 9755468, 5546977, 1613754, 2546858, 3377135, 94021889, 4530708 #### [facility] [address] [place] [address] Date Required 05-26-2020 [facility] Comment on above: Performed By: #### 1 3852259, 7855010, 6506046, 7433085, 5214625, 8125023, 11101616, 9503891 #### [facility] [address] [place] [address] Product Type None Required [facility] Comment on above: Performed By: #### 1 0696185, 9429556, 2144099, 7658175, 1908821, 4388002, 68816611, 7076248 #### [facility] [address] [place] [address] # of Units 1 [facility] Comment on above: Result Comment: 2019 16:29 [id number] Blood product ready and called to Lauren at 05/26/2020 16:29:10 EDT by ALElayne Performed By: #### 1 9258554, 0104737, 0210225, 2987578, 3224384, 5704606, 47334531, 1471081 #### [facility] [address] [place] [address] # of Units 2 [facility] Comment on above: Performed By: #### 1 4581567, 0080567, 3779718, 3520392, 5831444, 7950941, 70143914, 9811899 #### [facility] [address] [place], [place] [address] Date Required 05/26/2020 [facility] Comment on above: Performed By: #### 1 6428849, 1236116, 4637086, 2630382, 4343535, 6086263, 17733834, 0552904 #### [facility] [address] [place], [place] [address] Date Required [facility] Comment on above: Performed By: #### 1 7565931, 5677106, 3853384, 3786449, 1381320, 3008970, 64485351, 0070278 #### [facility] [address] [place] [address] Product Type None Required [facility] Comment on above: Performed By: #### 1 2979083, 9665415, 5461520, 8281797, 2066539, 0953275, 73486625, 8036241 #### [facility] [address] [place] [address] # of Units 1 [facility] Comment on above: Result Comment: 2019 15:50 [id number] Blood product ready and called to Topher/ER at 05/26/2020 15:49:51 EDT by AL. Performed By: #### 1 6552725, 5707013, 3458725, 1053336, 3653036, 3343678, 94455743, 5308072 #### [facility] [address] [place] [address] Date Required 05/26/2020 [facility] Comment on above: Performed By: #### 1 9534156, 0774569, 4814905, 8277788, 1564045, 6102001, 18319106, 6362213 #### [facility] [address] [place] [address] Product Type None Required [facility] Comment on above: Performed By: #### 1 7202556, 4089013, 8529765, 6069695, 8400666, 2237105, 23803004, 0977661 #### [facility] [address] [place] [address] US 1st Trimesteron 05-26-2020 US 1st Trimester Exam Date/Time: 05/26/2020 14:12 EDT Reason for Exam: Vaginal bleeding Report IMPRESSION: HETEROGENOUS MATERIAL WITHIN THE ENDOMETRIAL CANAL MOST COMPATIBLE WITH RETAINED PRODUCTS OF CONCEPTION AND/OR HEMATOMA. A MORE CIRCUMSCRIBED AND HOMOGENOUSLY ECHOGENIC STRUCTURE WITHIN THE CERVIX MEASURING UP TO 8.8 CM IS NONSPECIFIC AND MOST LIKELY A HEMATOMA HOWEVER UNDERLYING MASS IS NOT EXCLUDED AND CORRELATION WITH PHYSICAL EXAMINATION FINDINGS IS RECOMMENDED. EXAMINATION: US 1st Trimester HISTORY: Vaginal bleeding. Lightheadedness. Dizziness. Nausea. COMPARISON: Pelvic ultrasound from 12/08/2019 TECHNIQUE: Transabdominal ultrasound examination was performed of the pelvis FINDINGS: The uterus measurements and an estimated volume are: Uterus Length: 13.0 cm Uterus Width: 3.5 cm Uterus Height: 3.4 cm Uterus Volume: 80.2 cm3 There is an area of complex echogenicity within the lower uterine segment and measures up to 5.2 cm and demonstrates peripheral and some internal blood flow, compatible with retained products of conception. A nonspecific, more smooth and more homogenous echogenic structure identified within the cervix measuring up to 8.8 cm. The right ovary measurements and estimated volume are: Right Ovary Length: 2.6 cm Right Ovary Width: 2.3 cm Right Ovary Height: 1.6 cm Right Ovary Volume: 5.2 cm3 The left ovary measurements and estimated volume are: Left Ovary Length: 2.3 cm Left Ovary Width: 2.2 cm Left Ovary Height: 1.6 cm Left Ovary Volume: 4.1 cm3 Normal sonographic appearance of the ovaries. Blood flow is identified in both Report ovaries. No adnexal masses identified. No free fluid identified. FINAL REPORT Dictated: 05/26/2020 2:53 pm Faraz Carter DO Signed (Electronic Signature): 05/26/2020 2:53 pm Signed by: Faraz Carter DO Transcribed by: MADISON Technologist: LALY Technical Comments LMP : 05-18-2020 Irregular History ? SAB 2 Transabdominal Ultrasound Performed Normal [facility] eGFRon 05-26-2020 GFR/1.73 sq M predicted among blacks MDRD (S/P/Bld) [Vol rate/Area] mL/min/{1.73_m2} Normal >=59 [facility] Comment on above: Order Comment: Order added by Discern Expert. Result Comment: eGFR is race adjusted. AA=. Performed By: #### 1 [id number], 9519666, 3068702, 8483218, 3174810, 5534702, 53964087, 7477119 #### [facility] [address] [place] [address] GFR/1.73 sq M predicted among non-blacks MDRD (S/P/Bld) [Vol rate/Area] mL/min/{1.73_m2} Normal >=59 [facility] Comment on above: Order Comment: Order added by Discern Expert. Result Comment: Contract Forester ivan kidney disease could be indicated at eGFR's of less than 60 mL/min/1.73m2. Kidney failure is indicated at less than 15 mL/min/1.73m2. Performed By: #### 1 5722488, 1691323, 3224910, 8718125, 6707823, 3835215, 30895261, 7535306 #### [facility] [address] [place] [address] Coding Summary.on 01-23-2020 Coding Summary. CODING DATE: 020 FINAL [facility] STATUS: Home (Routine DC) PAYOR: Leela ADMIT DX: REASON FOR VISIT DX: Z32.01 Encounter for test, result positive FINAL DX: PRINCIPAL: Z32.01 Encounter for test, result positive SECONDARY: PYMT PROC APC STAT DESCRIPTION DOCTOR NAME DATE NOTE: The code number assigned matches the documented diagnosis and / or procedure in the patient's chart. However, the narrative phrase printed from the coding software may appear abbreviated, or result in slightly different terminology. Coded By: Rae Milton Date Saved: 01/23/2020 12:44 pm Normal [facility] Estradiolon 01-23-2020 E2 [Mass/Vol] 1822.0 pg/mL [facility] Comment on above: Result Comment: Adul t Female: Follicular phase 12.5 - 166.0 Ovulation phase 85.8 - 498.0 Luteal phase 43.8 - 211.0 Postmenopausal <6.0 - 54.7 1st trimester 215.0 - >4300.0 Girls (1-10 years) 6.0 - 27.0 Mal ECLIA methodology Performed at: [facility] [id number] PhD Subhash Coronel Performed By: #### 1 [id number], 8321600, 8550459, 7418145, 9602150, 4362304, 55872838, 8536426 #### [facility] [address] [place] [address] BhCG Quanton 01-22-2020 [place] [address] m[IU]/mL High 1-3 F [facility] Comment on above: Result Comment: GEST ATIONAL AGE HCG RANGE (mIU/mL) NON- <1-3 0.2-1 WEEKS 5-50 1-2 WEEKS 50-500 2-3 WEEKS 100-5,000 3-4 WEEKS 500-10,000 4-5 WEEKS 1,000-50,000 5-6 WEEKS 10,000-100,000 6-8 WEEKS 15,000-200,000 8-12 WEEKS 10,000-100,000 Performed By: #### 1 0819791, 3444744, 3973678, 7146336, 6796653, 6804979, 61897079, 3428914 #### [facility] [address] [place] [address] Progesteroneon 01-22-2020 Progesterone [Mass/Vol] 21.50 ng/mL [facility] Comment on above: Result Comment: REFE RENCE RANGE Males 0.14-2.06 ng/mL Non- Females Follicular 0.10-0.60 ng/mL Luteal 3.00-17.5 ng/mL Midluteal 3.30-18.6 ng/mL Post-Menopausal 0.10-0.40 ng/mL First Trimester 8.30-66.5 ng/mL Second Trimester 18.9-66.1 ng/mL Third Trimester 35.8-312.4 ng/mL Performed By: #### 1 5401062, 5175201, 7743299, 2691516, 5008886, 3195106, 37985296, 1500544 #### [facility] [address] [place] [address] Coding Summary.on 01-16-2020 Coding Summary. CODING DATE: 020 FINAL [facility] STATUS: Home (Routine DC) PAYOR: Leela ADMIT DX: REASON FOR VISIT DX: O09.00 Supervision of with history of infertility, unspecified trimester FINAL DX: PRINCIPAL: O09.00 Supervision of with history of infertility, unspecified trimester SECONDARY: PYMT PROC APC STAT DESCRIPTION DOCTOR NAME DATE NOTE: The code number assigned matches the documented diagnosis and / or procedure in the patient's chart. However, the narrative phrase printed from the coding software may appear abbreviated, or result in slightly different terminology. Coded By: Teri Hill CphT Date Saved: 01/16/2020 07:40 am Normal [facility] Estradiolon 01-16-2020 E2 [Mass/Vol] 1275.0 pg/mL [facility] Comment on above: Result Comment: Adul t Female: Follicular phase 12.5 - 166.0 Ovulation phase 85.8 - 498.0 Luteal phase 43.8 - 211.0 Postmenopausal <6.0 - 54.7 1st trimester 215.0 - >4300.0 Girls (1-10 years) 6.0 - 27.0 Mal ECLIA methodology Performed at: [facility] [address] [id number] PhD Subhash Coronel Performed By: #### 1 3925273, 0976564, 5771599, 8990620, 2612198, 8368568, 06298082, 0653743 #### [facility] [address] [place] [address] BhCG Quanton 01-15-2020 HCG.beta subunit Qn 4061 m[IU]/mL High 1-3 Fi [facility] Comment on above: Result Comment: GEST ATIONAL AGE HCG RANGE (mIU/mL) NON- <1-3 0.2-1 WEEKS 5-50 1-2 WEEKS 50-500 2-3 WEEKS 100-5,000 3-4 WEEKS 500-10,000 4-5 WEEKS 1,000-50,000 5-6 WEEKS 10,000-100,000 6-8 WEEKS 15,000-200,000 8-12 WEEKS 10,000-100,000 Performed By: #### 1 5256750, 0501771, 5927968, 3629795, 5018081, 1883804, 20123835, 5925340 #### [facility] [address] [place] [address] Progesteroneon 01-15-2020 Progesterone [Mass/Vol] 32.10 ng/mL [facility] Comment on above: Result Comment: REFE RENCE RANGE Males 0.14-2.06 ng/mL Non- Females Follicular 0.10-0.60 ng/mL Luteal 3.00-17.5 ng/mL Midluteal 3.30-18.6 ng/mL Post-Menopausal 0.10-0.40 ng/mL First Trimester 8.30-66.5 ng/mL Second Trimester 18.9-66.1 ng/mL Third Trimester 35.8-312.4 ng/mL Performed By: #### 1 6159726, 4663513, 3027232, 8840916, 9630895, 0941065, 16617817, 0231971 #### [facility] [address] [place] [address] Coding Summary.on 01-09-2020 Coding Summary. CODING DATE: 020 FINAL [facility] STATUS: Home (Routine DC) PAYOR: Leela ADMIT DX: REASON FOR VISIT DX: O09.00 Supervision of with history of infertility, unspecified trimester FINAL DX: PRINCIPAL: O09.00 Supervision of with history of infertility, unspecified trimester SECONDARY: PYMT PROC APC STAT DESCRIPTION DOCTOR NAME DATE NOTE: The code number assigned matches the documented diagnosis and / or procedure in the patient's chart. However, the narrative phrase printed from the coding software may appear abbreviated, or result in slightly different terminology. Coded By: Teri Hill CphT Date Saved: 01/09/2020 07:10 am Normal [facility] Estradiolon 01-09-2020 E2 [Mass/Vol] 572.2 pg/mL [facility] Comment on above: Result Comment: Adul t Female: Follicular phase 12.5 - 166.0 Ovulation phase 85.8 - 498.0 Luteal phase 43.8 - 211.0 Postmenopausal <6.0 - 54.7 1st trimester 215.0 - >4300.0 Girls (1-10 years) 6.0 - 27.0 Mal ECLIA methodology Performed at: [facility] [address] [id number] PhD Subhash Coronel Performed By: #### 1 9561329, 9079309, 8961600, 3509080, 2285557, 8140143, 16495802, 1893834 #### [facility] [address] [place] [address] [facility]2020 HCG.beta subunit Qn 898 m[IU]/mL High 1-3 [facility] Comment on above: Result Comment: GEST ATIONAL AGE HCG RANGE (mIU/mL) NON- <1-3 0.2-1 WEEKS 5-50 1-2 WEEKS 50-500 2-3 WEEKS 100-5,000 3-4 WEEKS 500-10,000 4-5 WEEKS 1,000-50,000 5-6 WEEKS 10,000-100,000 6-8 WEEKS 15,000-200,000 8-12 WEEKS 10,000-100,000 Performed By: #### 1 5111059, 2381150, 7395222, 0672857, 7178011, 3927110, 57740096, 2859752 #### [facility] [address] [place] [address] Progesteroneon 01-08-2020 Progesterone [Mass/Vol] 27.90 ng/mL [facility] Comment on above: Result Comment: REFE RENCE RANGE Males 0.14-2.06 ng/mL Non- Females Follicular 0.10-0.60 ng/mL Luteal 3.00-17.5 ng/mL Midluteal 3.30-18.6 ng/mL Post-Menopausal 0.10-0.40 ng/mL First Trimester 8.30-66.5 ng/mL Second Trimester 18.9-66.1 ng/mL Third Trimester 35.8-312.4 ng/mL Performed By: #### 1 9955647, 8091639, 1378978, 9870435, 2051625, 1003775, 76189874, 6389256 #### [facility] [address] [place] [address] Coding Summary.on 01-02-2020 Coding Summary. CODING DATE: 020 FINAL [facility] STATUS: Home (Routine DC) PAYOR: Slayden ADMIT DX: REASON FOR VISIT DX: Z32.01 Encounter for test, result positive FINAL DX: PRINCIPAL: Z32.01 Encounter for test, result positive SECONDARY: PYMT PROC APC STAT DESCRIPTION DOCTOR NAME DATE NOTE: The code number assigned matches the documented diagnosis and / or procedure in the patient's chart. However, the narrative phrase printed from the coding software may appear abbreviated, or result in slightly different terminology. Coded By: Teri Hill CphT Date Saved: 01/02/2020 10:23 am Normal [facility] Estradiolon 01-02-2020 E2 [Mass/Vol] 1694.0 pg/mL [facility] Comment on above: Result Comment: Adul t Female: Follicular phase 12.5 - 166.0 Ovulation phase 85.8 - 498.0 Luteal phase 43.8 - 211.0 Postmenopausal <6.0 - 54.7 1st trimester 215.0 - >4300.0 Girls (1-10 years) 6.0 - 27.0 Mal ECLIA methodology Performed at: [facility] [id number] PhD Subhash Coronel Performed By: #### 1 [id number], 8916174, 1651700, 3558200, 8259529, 8198058, 98520738, 2555274 #### [facility] [address] [place] [address] [facility] Quanton 01-01-2020 HCG.beta subunit Qn 124 m[IU]/mL High 1-3 [facility] Comment on above: Result Comment: GEST ATIONAL AGE HCG RANGE (mIU/mL) NON- <1-3 0.2-1 WEEKS 5-50 1-2 WEEKS 50-500 2-3 WEEKS 100-5,000 3-4 WEEKS 500-10,000 4-5 WEEKS 1,000-50,000 5-6 WEEKS 10,000-100,000 6-8 WEEKS 15,000-200,000 8-12 WEEKS 10,000-100,000 Performed By: #### 1 [id number], 5289000, 6490641, 2519171, 0506035, 6074988, 97823201, 3797361 #### [facility] [address] [place] [address] Coding Summary.on 01-01-2020 Coding Summary. CODING DATE: 020 FINAL [facility] STATUS: Home (Routine DC) PAYOR: Slayden ADMIT DX: REASON FOR VISIT DX: E28.9 Ovarian dysfunction, unspecified FINAL DX: PRINCIPAL: E28.9 Ovarian dysfunction, unspecified SECONDARY: PYMT PROC APC STAT DESCRIPTION DOCTOR NAME DATE NOTE: The code number assigned matches the documented diagnosis and / or procedure in the patient's chart. However, the narrative phrase printed from the coding software may appear abbreviated, or result in slightly different terminology. Coded By: Teri Hill CphT Date Saved: 01/01/2020 02:22 pm Normal [facility] Progesteroneon 01-01-2020 Progesterone [Mass/Vol] 23.10 ng/mL [facility] Comment on above: Result Comment: REFE RENCE RANGE Males 0.14-2.06 ng/mL Non- Females Follicular 0.10-0.60 ng/mL Luteal 3.00-17.5 ng/mL Midluteal 3.30-18.6 ng/mL Post-Menopausal 0.10-0.40 ng/mL First Trimester 8.30-66.5 ng/mL Second Trimester 18.9-66.1 ng/mL Third Trimester 35.8-312.4 ng/mL Performed By: #### 1 [id number], [id number], 2825146, 3177524, 5303705, 7652398, 38875021, 4540668 #### [facility] [address] [place] [address] Coding Summary.on 12-31-2019 Coding Summary. CODING DATE: 020 [facility] STATUS: Home (Routine DC) PAYOR: Slayden ADMIT DX: REASON FOR VISIT DX: E28.9 Ovarian dysfunction, unspecified FINAL DX: PRINCIPAL: E28.9 Ovarian dysfunction, unspecified SECONDARY: PYMT PROC APC STAT DESCRIPTION DOCTOR NAME DATE NOTE: The code number assigned matches the documented diagnosis and / or procedure in the patient's chart. However, the narrative phrase printed from the coding software may appear abbreviated, or result in slightly different terminology. Coded By: Yolie Putnam Date Saved: 12/31/2019 08:09 am Normal [facility] Estradiolon 12-30-2019 E2 [Mass/Vol] 1478.0 pg/mL [facility] Comment on above: Result Comment: Adul t Female: Follicular phase 12.5 - 166.0 Ovulation phase 85.8 - 498.0 Luteal phase 43.8 - 211.0 Postmenopausal <6.0 - 54.7 1st trimester 215.0 - >4300.0 Girls (1-10 years) 6.0 - 27.0 Mal ECLIA methodology Performed at: [facility] [address] [id number] PhD Subhash Coronel Performed By: #### 1 [id number], 1013582, 5030312, 7769571, 7558902, 6515890, 08591090, 7707180 #### [facility] [address] [place] [address] BhCG Quanton 12-29-2019 HCG.beta subunit Qn 34 m[IU]/mL High 1-3 Fish [facility] Comment on above: Result Comment: GEST ATIONAL AGE HCG RANGE (mIU/mL) NON- <1-3 0.2-1 WEEKS 5-50 1-2 WEEKS 50-500 2-3 WEEKS 100-5,000 3-4 WEEKS 500-10,000 4-5 WEEKS 1,000-50,000 5-6 WEEKS 10,000-100,000 6-8 WEEKS 15,000-200,000 8-12 WEEKS 10,000-100,000 Performed By: #### 1 [id number], 4335890, 0303277, 5223278, 6528309, 4273126, 95882490, 5917077 #### [facility] [address] [place] [address] Progesteroneon 12-29-2019 Progesterone [Mass/Vol] 21.80 ng/mL [facility] Comment on above: Result Comment: REFE RENCE RANGE Males 0.14-2.06 ng/mL Non- Females Follicular 0.10-0.60 ng/mL Luteal 3.00-17.5 ng/mL Midluteal 3.30-18.6 ng/mL Post-Menopausal 0.10-0.40 ng/mL First Trimester 8.30-66.5 ng/mL Second Trimester 18.9-66.1 ng/mL Third Trimester 35.8-312.4 ng/mL Performed By: #### 1 [id number], 4456027, 2802807, 9598351, 4247610, 6556925, 55530538, 5130001 #### [facility] [address] [place] [address] BhCG Quanton 12-27-2019 HCG.beta subunit Qn 19 m[IU]/mL High 1-3 Fish er [facility] Comment on above: Result Comment: GEST ATIONAL AGE HCG RANGE (mIU/mL) NON- <1-3 0.2-1 WEEKS 5-50 1-2 WEEKS 50-500 2-3 WEEKS 100-5,000 3-4 WEEKS 500-10,000 4-5 WEEKS 1,000-50,000 5-6 WEEKS 10,000-100,000 6-8 WEEKS 15,000-200,000 8-12 WEEKS 10,000-100,000 Performed By: #### 1 4751350, 3813160, 6468410, 9258818, 1783086, 6096369, 24399844, 3666869 #### [facility] [address] [place] [address] Progesteroneon 12-27-2019 Progesterone [Mass/Vol] 22.60 ng/mL [facility] Comment on above: Result Comment: REFE RENCE RANGE Males 0.14-2.06 ng/mL Non- Females Follicular 0.10-0.60 ng/mL Luteal 3.00-17.5 ng/mL Midluteal 3.30-18.6 ng/mL Post-Menopausal 0.10-0.40 ng/mL First Trimester 8.30-66.5 ng/mL Second Trimester 18.9-66.1 ng/mL Third Trimester 35.8-312.4 ng/mL Performed By: #### 1 [id number], 7595610, 9678794, 8760605, 6104666, 5080024, 44673112, 0495815 #### [facility] [address] [place] [address] Coding Summary.on 12-25-2019 Coding Summary. CODING DATE: 020 FINAL [facility] STATUS: Home (Routine DC) PAYOR: Leela ADMIT DX: REASON FOR VISIT DX: E28.9 Ovarian dysfunction, unspecified FINAL DX: PRINCIPAL: E28.9 Ovarian dysfunction, unspecified SECONDARY: PYMT PROC APC STAT DESCRIPTION DOCTOR NAME DATE NOTE: The code number assigned matches the documented diagnosis and / or procedure in the patient's chart. However, the narrative phrase printed from the coding software may appear abbreviated, or result in slightly different terminology. Coded By: Teri Hill CphT Date Saved: 12/22/2019 04:17 pm Normal [facility] Coding Summary. CODING DATE: 020 [facility] STATUS: PAYOR: Leela ADMIT DX: REASON FOR VISIT DX: E28.9 Ovarian dysfunction, unspecified FINAL DX: PRINCIPAL: E28.9 Ovarian dysfunction, unspecified SECONDARY: PYMT PROC APC STAT DESCRIPTION DOCTOR NAME DATE NOTE: The code number assigned matches the documented diagnosis and / or procedure in the patient's chart. However, the narrative phrase printed from the coding software may appear abbreviated, or result in slightly different terminology. Coded By: Teri Hill CphT Date Saved: 12/22/2019 04:17 pm Normal [facility] Estradiolon 12-23-2019 E2 [Mass/Vol] 1555.0 pg/mL [facility] Comment on above: Result Comment: Adul t Female: Follicular phase 12.5 - 166.0 Ovulation phase 85.8 - 498.0 Luteal phase 43.8 - 211.0 Postmenopausal <6.0 - 54.7 1st trimester 215.0 - >4300.0 Girls (1-10 years) 6.0 - 27.0 Mal ECLIA methodology Performed at: [facility] [id number] PhD Subhash Coronel Performed By: #### 1 [id number], 1633892, 3723202, 4485554, 8344828, 5285469, 62116091, 4324120 #### [facility] [address] [place] [address] Progesteroneon 12-22-2019 Progesterone [Mass/Vol] 25.40 ng/mL [facility] Comment on above: Result Comment: REFE RENCE RANGE Males 0.14-2.06 ng/mL Non- Females Follicular 0.10-0.60 ng/mL Luteal 3.00-17.5 ng/mL Midluteal 3.30-18.6 ng/mL Post-Menopausal 0.10-0.40 ng/mL First Trimester 8.30-66.5 ng/mL Second Trimester 18.9-66.1 ng/mL Third Trimester 35.8-312.4 ng/mL Performed By: #### 1 [id number], 7937169, 1908266, 0287262, 3885775, 5998565, 50429285, 8032018 #### [facility] [address] [place] [address] Coding Summary.on 12-11-2019 Coding Summary. CODING DATE: 020 FINAL [facility] STATUS: Home (Routine DC) PAYOR: Leela APC DESCRIPTION 5522 Level 2 Imaging without Contrast ADMIT DX: REASON FOR VISIT DX: E28.9 Ovarian dysfunction, unspecified FINAL DX: PRINCIPAL: E28.9 Ovarian dysfunction, unspecified SECONDARY: PYMT PROC APC STAT DESCRIPTION DOCTOR NAME DATE NOTE: The code number assigned matches the documented diagnosis and / or procedure in the patient's chart. However, the narrative phrase printed from the coding software may appear abbreviated, or result in slightly different terminology. Coded By: Teri Hill CphT Date Saved: 12/11/2019 12:51 pm Normal [facility] Estradiolon 12-09-2019 E2 [Mass/Vol] 1486.0 pg/mL [facility] Comment on above: Result Comment: Adul t Female: Follicular phase 12.5 - 166.0 Ovulation phase 85.8 - 498.0 Luteal phase 43.8 - 211.0 Postmenopausal <6.0 - 54.7 1st trimester 215.0 - >4300.0 Girls (1-10 years) 6.0 - 27.0 Mal ECLIA methodology Performed at: [facility] [id number] PhD Subhash Coronel Performed By: #### 1 [id number], 9785065, 6194870, 6123600, 1828310, 1036780, 30596309, 8296362 #### [facility] [address] [place] [address] LHon 12-09-2019 Lutropin Qn 6.2 m[IU]/mL [facility] Comment on above: Result Comment: Adul t Female: Follicular phase 2.4 - 12.6 Ovulation phase 14.0 - 95.6 Luteal phase 1.0 - 11.4 Postmenopausal 7.7 - 58.5 Performed at: [facility] [id number] PhD Subhash Coronel Performed By: #### 1 [id number], 6962460, 5602627, 3701101, 6538654, 3629349, 49950161, 1335078 #### [facility] [address] [place] [address] Progesteroneon 12-08-2019 Progesterone [Mass/Vol] ng/mL [facility] Comment on above: Result Comment: REFE RENCE RANGE Males 0.14-2.06 ng/mL Non- Females Follicular 0.10-0.60 ng/mL Luteal 3.00-17.5 ng/mL Midluteal 3.30-18.6 ng/mL Post-Menopausal 0.10-0.40 ng/mL First Trimester 8.30-66.5 ng/mL Second Trimester 18.9-66.1 ng/mL Third Trimester 35.8-312.4 ng/mL Performed By: #### 1 [id number], 2604081, 2701134, 8756736, 2969846, 0895493, 89487448, 0238635 #### [facility] [address] [place] [address] US Pelvis Non-OB Completeon 12-08-2019 US Pelvis Non-OB Complete Exam Date/Time: 12/08/2019 07:45 EST Reason for Exam: OVARIAN DYSFUNCTION Report IMPRESSION: NEGATIVE ULTRASOUND OF THE PELVIS. FOLLICLE COUNT AND SIZE, BELOW. CLINICAL HISTORY: OVARIAN DYSFUNCTION. Fertility treatments. COMPARISON: 12/04/2019 TECHNIQUE: Transabdominal ultrasound was performed to visualize the entirety of the pelvis. Transvaginal scanning was performed to provide better detail of the uterus and ovaries. FINDINGS: The uterus and both ovaries appear within normal limits for the patient's age group. Equivalent blood flow is noted to both ovaries on Doppler analysis. There is no significant free fluid, abnormal adnexal masses, or other findings of concern identified. The uterus is mildly retroverted and retroflexed in position, with measurements and estimated volume: Uterus Length: 8.8 cm Uterus Width: 5.0 cm Uterus Height: 4.1 cm Uterus Volume: 93.2 cm3 Endometrium Thickness: 0.7 cm The right ovary measurements and estimated volume: Right Ovary Length: 1.8 cm Right Ovary Width: 1.9 cm Right Ovary Height: 2.2 cm Right Ovary Volume: 3.9 cm3 The left ovary measurements and an estimated volume are: Left Ovary Length: 1.8 cm Left Ovary Width: 2.5 cm Report Left Ovary Height: 1.5 cm Left Ovary Volume: 3.3 cm3 Sizes of ovarian follicles are as follows. RIGHT: Greatest diameter in cm, Volume in cc 1. 0.52, 0.07 2. 0.61, 0.12 3. 0.31, 0.02 4. 0.52, 0.07 LEFT: 1. 0.41, 0.04 2. 0.41, 0.04 3. 0.36, 0.02 4. 0.48, 0.06 5. 0.61, 0.12 FINAL REPORT Dictated: 12/08/2019 12:20 pm Boom Thomson MD Signed (Electronic Signature): 12/08/2019 12:20 pm Signed by: Boom Thomson MD Transcribed by: MADISON Technologist: JESSICA Technical Comments Transabdominal Ultrasound Performed Transvaginal Ultrasound Performed Normal [facility] US Transvaginal Non-OBon US Transvaginal Non-OB Exam Date/Time: 12/08/2019 07:42 EST Reason for Exam: OVARIAN DYSFUNCTION Report Please refer to prior transabdominal pelvic sonogram report. FINAL REPORT Dictated: 12/08/2019 12:35 pm Citlaly Buchanan MD Signed (Electronic Signature): 12/08/2019 12:35 pm Signed by: Citlaly Buchanan MD Transcribed by: MADISON Technologist: JESSICA Normal [facility] Coding Summary.on 12-05-2019 Coding Summary. CODING DATE: 020 FINAL [facility] STATUS: Home (Routine DC) PAYOR: Leela APC DESCRIPTION 5522 Level 2 Imaging without Contrast ADMIT DX: REASON FOR VISIT DX: E28.9 Ovarian dysfunction, unspecified FINAL DX: PRINCIPAL: E28.9 Ovarian dysfunction, unspecified SECONDARY: PYMT PROC APC STAT DESCRIPTION DOCTOR NAME DATE NOTE: The code number assigned matches the documented diagnosis and / or procedure in the patient's chart. However, the narrative phrase printed from the coding software may appear abbreviated, or result in slightly different terminology. Coded By: Teri Hill CphT Date Saved: 12/05/2019 10:15 am Normal [facility] Estradiolon 12-05-2019 E2 [Mass/Vol] 1328.0 pg/mL [facility] Comment on above: Result Comment: Adul t Female: Follicular phase 12.5 - 166.0 Ovulation phase 85.8 - 498.0 Luteal phase 43.8 - 211.0 Postmenopausal <6.0 - 54.7 1st trimester 215.0 - >4300.0 Girls (1-10 years) 6.0 - 27.0 Mal ECLIA methodology Performed at: [facility] [address] [id number] PhD Subhash Coronel Performed By: #### 1 [id number], 0112277, 8905955, 6713121, 2474463, 1519027, 58638508, 3780245 #### [facility] [address] [place] [address] LHon 12-05-2019 Lutropin Qn 7.2 m[IU]/mL [facility] Comment on above: Result Comment: Adul t Female: Follicular phase 2.4 - 12.6 Ovulation phase 14.0 - 95.6 Luteal phase 1.0 - 11.4 Postmenopausal 7.7 - 58.5 Performed at: [facility] [address] [id number] PhD Subhash Coronel Performed By: #### 1 [id number], 3828661, 6092241, 4868918, 4213701, 1788196, 95529678, 8924961 #### [facility] [address] [place] [address] Progesteroneon 12-04-2019 Progesterone [Mass/Vol] ng/mL [facility] Comment on above: Result Comment: REFE RENCE RANGE Males 0.14-2.06 ng/mL Non- Females Follicular 0.10-0.60 ng/mL Luteal 3.00-17.5 ng/mL Midluteal 3.30-18.6 ng/mL Post-Menopausal 0.10-0.40 ng/mL First Trimester 8.30-66.5 ng/mL Second Trimester 18.9-66.1 ng/mL Third Trimester 35.8-312.4 ng/mL Performed By: #### 1 4552454, 7330842, 6561779, 3606925, 3018038, 9550486, 39915811, 2593557 #### [facility] [address] [place] [address] US Pelvis Non-OB Completeon 12-04-2019 US Pelvis Non-OB Complete Exam Date/Time: 12/04/2019 07:39 EST Reason for Exam: OVARIAN DYSFUNCTION Report IMPRESSION: NEGATIVE ULTRASOUND OF THE PELVIS. CLINICAL HISTORY: OVARIAN DYSFUNCTION. COMPARISON: 11/30/2019. COMMENT: Transabdominal images were obtained. The uterus measurements and an estimated volume are: Uterus Length: 9.0 cm Uterus Width: 4.4 cm Uterus Height: 3.8 cm Uterus Volume: 79.9 cm3 Endometrium Thickness: 0.6 cm The endometrium has a trilaminar appearance. No abnormality of the echo pattern of the uterus is noted. No uterine mass is evident. The right ovary measurements and an estimated volume are: Right Ovary Length: 2.7 cm Right Ovary Width: 1.8 cm Right Ovary Height: 2.5 cm Right Ovary Volume: 6.3 cm3 The left ovary measurements and an estimated volume are: Left Ovary Length: 2.6 cm Left Ovary Width: 3.1 cm Left Ovary Height: 2.1 cm Left Ovary Volume: 8.9 cm3 Sizes of ovarian follicles are as follows. RIGHT: Greatest diameter in cm, Volume in cc 1. 0.56, 0.09 2. 0.61, 0.12 3. 0.43, 0.04 4. 0.58, 0.1 5. 0.41, 0.04 Report 6. 0.77, 0.24 7. 0.34, 0.02 8. 0.36, 0.02 LEFT: 1. 0.51, 0.07 2. 0.57, 0.1 3. 0.73, 0.2 4. 0.48, 0.06 5. 0.59, 0.11 6. 0.87, 0.34 7. 0.63, 0.13 8. 0.87, 0.34 9. 0.43, 0.04 No adnexal mass is evident. There is no free fluid in the cul-de-sac. FINAL REPORT Dictated: 12/04/2019 9:11 am Go Kaplan M.D. Signed (Electronic Signature): 12/04/2019 9:11 am Signed by: Go Kaplan M.D. Transcribed by: MADISON Technologist: SYBIL Technical Comments Transabdominal Ultrasound Performed Transvaginal Ultrasound Performed [facility] US Transvaginal Non-OBon US Transvaginal Non-OB Exam Date/Time: 12/04/2019 07:41 EST Reason for Exam: OVARIAN DYSFUNCTION Report PLEASE REFER TO THE ULTRASOUND PELVIS NON-OB COMPLETE REPORT. FINAL REPORT Dictated: 12/04/2019 9:12 am Go Kaplan M.D. Signed (Electronic Signature): 12/04/2019 9:12 am Signed by: Go Kaplan M.D. Transcribed by: MADISON Technologist: SYBIL [facility] Coding Summary.on 12-01-2019 Coding Summary. CODING DATE: 020 FINAL [facility] STATUS: Home (Routine DC) PAYOR: Slayden APC DESCRIPTION 5522 Level 2 Imaging without Contrast ADMIT DX: REASON FOR VISIT DX: E28.9 Ovarian dysfunction, unspecified FINAL DX: PRINCIPAL: E28.9 Ovarian dysfunction, unspecified SECONDARY: PYMT PROC APC STAT DESCRIPTION DOCTOR NAME DATE NOTE: The code number assigned matches the documented diagnosis and / or procedure in the patient's chart. However, the narrative phrase printed from the coding software may appear abbreviated, or result in slightly different terminology. Coded By: Teri Hill CphT Date Saved: 12/01/2019 12:45 pm [facility] Estradiolon 12-01-2019 E2 [Mass/Vol] 945.3 pg/mL [facility] Comment on above: Result Comment: Adul t Female: Follicular phase 12.5 - 166.0 Ovulation phase 85.8 - 498.0 Luteal phase 43.8 - 211.0 Postmenopausal <6.0 - 54.7 1st trimester 215.0 - >4300.0 Girls (1-10 years) 6.0 - 27.0 Mal ECLIA methodology Performed at: [facility] [id number] PhD Subhash Coronel Performed By: #### 1 [id number], 9526606, 7149204, 9629352, 5147374, 3995156, 03916451, 0149062 #### [facility] [address] [place] [address] LHon 12-01-2019 Lutropin Qn 6.9 m[IU]/mL [facility] Comment on above: Result Comment: Adul t Female: Follicular phase 2.4 - 12.6 Ovulation phase 14.0 - 95.6 Luteal phase 1.0 - 11.4 Postmenopausal 7.7 - 58.5 Performed at: [facility] [id number] PhD Subhash Coronel Performed By: #### 1 [id number], 7010032, 4396650, 2342476, 8209070, 4879503, 86283157, 6373183 #### [facility] [address] [place] [address] Progesteroneon 11-30-2019 Progesterone [Mass/Vol] 0.10 ng/mL [facility] Comment on above: Result Comment: REFE RENCE RANGE Males 0.14-2.06 ng/mL Non- Females Follicular 0.10-0.60 ng/mL Luteal 3.00-17.5 ng/mL Midluteal 3.30-18.6 ng/mL Post-Menopausal 0.10-0.40 ng/mL First Trimester 8.30-66.5 ng/mL Second Trimester 18.9-66.1 ng/mL Third Trimester 35.8-312.4 ng/mL Performed By: #### 1 [id number], 6516593, 2808775, 5976833, 1081254, 8764064, 53605997, 6131033 #### [facility] [address] [place] [address] US Pelvis Non-OB Completeon 11-30-2019 US Pelvis Non-OB Complete Exam Date/Time: 11/30/2019 07:44 EST Reason for Exam: OVARIAN DYSFUNCTION Addendum Addendum: Sizes of ovarian follicles are as follows. RIGHT: Greatest diameter in cm, Volume in cc 1. 0.58, 0.1 2. 0.67, 0.16 3. 0.52, 0.7 4. 0.65, 0.14 5. 0.91, 0.39 6. 0.56, 0.09 LEFT: 1. 0.65, 0.14 2. 1.47, 1.66 3. 0.79, 0.26 4. 0.77, 0.24 5. 0.75, 0.22 6. 0.59, 0.11 7. 0.57, 0.1 FINAL REPORT Dictated: 11/30/2019 1:21 pm Go Kaplan M.D. Signed (Electronic Signature): 11/30/2019 1:21 pm Signed by: Go Kaplan M.D. Transcribed by: MADISON Technologist: JESSICA Report IMPRESSION: NEGATIVE ULTRASOUND OF THE PELVIS. CLINICAL HISTORY: OVARIAN DYSFUNCTION. COMPARISON: 11/23/2019. COMMENT: Transabdominal and transvaginal images were obtained. Report The uterus measurements and an estimated volume are: Uterus Length: 9.5 cm Uterus Width: 5.1 cm Uterus Height: 4.3 cm Uterus Volume: 108.2 cm3 Endometrium Thickness: 0.5 cm The endometrium has a trilaminar appearance. The myometrium is unremarkable in appearance. No uterine mass is evident. The right ovary measurements and an estimated volume are: Right Ovary Length: 2.5 cm Right Ovary Width: 1.9 cm Right Ovary Height: 2.3 cm Right Ovary Volume: 5.6 cm3 The left ovary measurements and an estimated volume are: Left Ovary Length: 2.5 cm Left Ovary Width: 2.9 cm Left Ovary Height: 2.5 cm Left Ovary Volume: 9.4 cm3 There are small follicular ovarian cysts bilaterally. The largest cyst is located on the left and has a greatest diameter of 1.4 cm. No adnexal mass is evident. There is no free fluid in the cul-de-sac. FINAL REPORT Dictated: 11/30/2019 9:00 am Go Kaplan M.D. Signed (Electronic Signature): 11/30/2019 9:00 am Signed by: Go Kaplan M.D. Transcribed by: MADISON Technologist: JESSICA Technical Comments Transabdominal Ultrasound Performed Transvaginal Ultrasound Performed Report last revised on 11/30/2019 13:21 EST by Go Kaplan M.D. [facility] US Transvaginal Non-OBon US Transvaginal Non-OB Exam Date/Time: 11/30/2019 07:37 EST Reason for Exam: ovarian dysfunction Report PLEASE REFER TO THE ULTRASOUND PELVIS NON-OB COMPLETE REPORT. FINAL REPORT Dictated: 11/30/2019 9:01 am Go Kaplan M.D. Signed (Electronic Signature): 11/30/2019 9:01 am Signed by: Go Kaplan M.D. Transcribed by: MADISON Technologist: JESSICA Normal [facility] Coding Summary.on 11-24-2019 Coding Summary. CODING DATE: 020 [facility] STATUS: Home (Routine DC) PAYOR: Slayden APC DESCRIPTION 5522 Level 2 Imaging without Contrast ADMIT DX: REASON FOR VISIT DX: E28.9 Ovarian dysfunction, unspecified FINAL DX: PRINCIPAL: E28.9 Ovarian dysfunction, unspecified SECONDARY: N83.01 Follicular cyst of right ovary N83.02 Follicular cyst of left ovary PYMT PROC APC STAT DESCRIPTION DOCTOR NAME DATE NOTE: The code number assigned matches the documented diagnosis and / or procedure in the patient's chart. However, the narrative phrase printed from the coding software may appear abbreviated, or result in slightly different terminology. Coded By: Teri Hill CphT Date Saved: 11/24/2019 08:10 am Normal [facility] Estradiolon 11-24-2019 E2 [Mass/Vol] 35.2 pg/mL [facility] Comment on above: Result Comment: [facility] t Female: Follicular phase 12.5 - 166.0 Ovulation phase 85.8 - 498.0 Luteal phase 43.8 - 211.0 Postmenopausal <6.0 - 54.7 1st trimester 215.0 - >4300.0 Girls (1-10 years) 6.0 - 27.0 Mal ECLIA methodology Performed at: [address] [id number] PhD Subhash Coronel Performed By: #### 1 [id number], 5751440, 0841115, 6922547, 9655014, 6780433, 08215142, 4136541 #### [facility] [address] [place] [address] FSH and LHon 11-24-2019 Follitropin Qn 8.7 m[IU]/mL [facility] Comment on above: Result Comment: [facility] t Female: Follicular phase 3.5 - 12.5 Ovulation phase 4.7 - 21.5 Luteal phase 1.7 - 7.7 Postmenopausal 25.8 - 134.8 Performed at: [address] [id number] PhD Subhash Coronel Performed By: #### 1 [id number], 7970783, 5788285, 7759137, 0044332, 8758859, 30299229, 0418301 #### [facility] [address] [place] [address] Lutropin Qn 9.1 m[IU]/mL [facility] Comment on above: Result Comment: [facility] t Female: Follicular phase 2.4 - 12.6 Ovulation phase 14.0 - 95.6 Luteal phase 1.0 - 11.4 Postmenopausal 7.7 - 58.5 Performed By: #### 1 8101593, 6154953, 8221701, 9118691, 4663320, 9307034, 81036222, 0099704 #### [facility] [address] [place] [address] BhCG Quanton 11-23-2019 HCG.beta subunit Qn m[IU]/mL Normal 1-3 [facility] Comment on above: Result Comment: GEST ATIONAL AGE HCG RANGE (mIU/mL) NON- <1-3 0.2-1 WEEKS 5-50 1-2 WEEKS 50-500 2-3 WEEKS 100-5,000 3-4 WEEKS 500-10,000 4-5 WEEKS 1,000-50,000 5-6 WEEKS 10,000-100,000 6-8 WEEKS 15,000-200,000 8-12 WEEKS 10,000-100,000 Performed By: #### 1 [id number], 4442153, 0065294, 4816178, 0987014, 6086649, 29104544, 8438364 #### [facility] [address] [place] [address] Progesteroneon 11-23-2019 Progesterone [Mass/Vol] 0.40 ng/mL [facility] Comment on above: Result Comment: REFE RENCE RANGE Males 0.14-2.06 ng/mL Non- Females Follicular 0.10-0.60 ng/mL Luteal 3.00-17.5 ng/mL Midluteal 3.30-18.6 ng/mL Post-Menopausal 0.10-0.40 ng/mL First Trimester 8.30-66.5 ng/mL Second Trimester 18.9-66.1 ng/mL Third Trimester 35.8-312.4 ng/mL Performed By: #### 1 [id number], 8069483, 7708835, 4445784, 6401888, 9439828, 71908196, 6096769 #### [facility] [address] [place] [address] TSHon 11-23-2019 TSH Qn 0.76 mcIU/mL Normal 0.34-5.60 [facility] Comment on above: Performed By: #### 1 [id number], 3398791, 6128863, 5779592, 3805919, 8524036, 05844823, 4329930 #### [facility] [address] [place] [address] US Pelvis Non-OB Completeon 11-23-2019 US Pelvis Non-OB Complete Exam Date/Time: 11/23/2019 07:42 EST Reason for Exam: OVARIAN DYSFUNCTION Report IMPRESSION: MINIMAL AMOUNT OF FLUID IN THE UTERINE CANAL IN THE FUNDUS. SMALL FOLLICULAR OVARIAN CYSTS BILATERALLY, 5 ON THE RIGHT AND 6 ON THE LEFT. CLINICAL HISTORY: OVARIAN DYSFUNCTION. COMMENT: Transabdominal and transvaginal images were obtained. The uterus measurements and an estimated volume are: Uterus Length: 6.4 cm Uterus Width: 5.5 cm Uterus Height: 3.8 cm Uterus Volume: 69.4 cm3 Endometrium Thickness: 0.3 cm The uterus is anteverted. There is a minimal amount of fluid in the uterine canal in the fundus, with the uterine canal and endometrial echo complex otherwise unremarkable. No abnormality of the echo pattern of the myometrium is noted. No uterine mass is evident. There is a 0.4 cm nabothian cyst of the lower uterine segment/cervix. The right ovary measurements and an estimated volume are: Right Ovary Length: 2.0 cm Right Ovary Width: 2.2 cm Right Ovary Height: 2.5 cm Right Ovary Volume: 5.7 cm3 The left ovary measurements and an estimated volume are: Left Ovary Length: 2.3 cm Left Ovary Width: 2.2 cm Left Ovary Height: 4.0 cm Left Ovary Volume: 10.5 cm3 There are small follicular ovarian cysts, 0.8 cm or less in diameter, 5 on the right and 6 on the left. No large cyst nor adnexal mass is evident. There is no free fluid in the cul-de-sac. The small gestational sac containing a yolk sac and the other focal fluid collection noted in the uterine fundus on the prior ultrasound exam of 10/05/2019 are no longer visualized. The large ovarian cysts and the complex left ovarian cyst noted on the Report prior ultrasound exam are no longer visualized. FINAL REPORT Dictated: 11/23/2019 9:26 am Go Kaplan M.D. Signed (Electronic Signature): 11/23/2019 9:26 am Signed by: Go Kaplan M.D. Transcribed by: MADISON Technologist: JESSICA Technical Comments Transabdominal Ultrasound Performed Transvaginal Ultrasound Performed Normal [facility] US Transvaginal Non-OBon US Transvaginal Non-OB Exam Date/Time: 11/23/2019 07:40 EST Reason for Exam: OVARIAN DYSFUNCTION Report PLEASE REFER TO THE ULTRASOUND PELVIS NON-OB COMPLETE REPORT. FINAL REPORT Dictated: 11/23/2019 9:26 am Go Kaplan M.D. Signed (Electronic Signature): 11/23/2019 9:26 am Signed by: Go Kaplan M.D. Transcribed by: MADISON Technologist: JESSICA [facility] Coding Summary.on 10-24-2019 Coding Summary. CODING DATE: 020 FINAL [facility] STATUS: Home (Routine DC) PAYOR: Leela APC DESCRIPTION 5414 Level 4 Gynecologic Procedures ADMIT DX: REASON FOR VISIT DX: O02.1 Missed FINAL DX: PRINCIPAL: O02.1 Missed SECONDARY: I10 Essential (primary) hypertension E03.9 Hypothyroidism, unspecified PYMT PROC APC STAT DESCRIPTION DOCTOR NAME DATE 07429 5414 J1 Treatment of missed Davie Grijalva MD 10/20/2019 , completed surgically; first trimester 25370 Anesthesia for Davie Eaton Jr, DO 10/20/2019 incomplete or missed procedures NOTE: The code number assigned matches the documented diagnosis and / or procedure in the patient's chart. However, the narrative phrase printed from the coding software may appear abbreviated, or result in slightly different terminology. Revised Coded By: Althea Ortega Revised Date Saved: 10/24/2019 02:47 pm [facility] Main OR Intraoperative Recor don 10-23-2019 Main OR Intraoperative Record IntraOp Document Type FT Summary Primary Physician: Davie Grijalva MD Finalized Date/Time: 10/23/19 11:48:56 Pt. Name: SUKHDEV SCHWARTZ/Sex: 1985 Female Med Rec #: [id number] Physician: Davie Grijalva MD Financial #: [id number] Pt. Type: A Room/Bed: Admit/Disch: 10/20/19 12:59:16 - 10/20/19 16:25:00 Institution: Case Times FT Entry 1 Patient Times In Room 10/20/19 14:00:00 Out Room 10/20/19 14:34:00 Procedure Times Start 10/20/19 14:19:00 Stop 10/20/19 14:25:00 Anesthesia Times Start 10/20/19 14:00:00 Stop 10/20/19 14:34:00 Last Modified By: Nona Cuellar RN 10/20/19 14:34:06 General Comments: 10/23/2019 Chart opened to review and send charges Hilda Stein [employer] Case Attendance FT Entry 1 Entry 2 Entry 3 Case Attendee Carlito OVALLES, Geri Grijalva MD, Davie Castelan RN, Rena Role Performed Anesthesiologist Surgeon - Primary Technical Service Specialist - Primary General Assembler Time In 10/20/19 14:00:00 10/20/19 14:16:00 10/20/19 14:00:00 Time Out 10/20/19 14:34:00 10/20/19 14:26:00 10/20/19 14:34:00 Procedure DILATATION and SUCTION DILATATION and SUCTION DILATATION and SUCTION CURETTAGE(.) CURETTAGE(.) CURETTAGE(.) Comments DR EATON SUPERVISING Last Modified By: Polo RN, Nona Cuellar RN, Nona Contreras RN 10/20/19 14:35:30 10/20/19 14:35:30 10/20/19 14:35:30 Entry 4 Entry 5 Case Attendee Polo GOODRICH, Nona Crook [employer], Mónica Role Performed Technical Service Specialist - Primary Scrub - Primary Time In 10/20/19 14:00:00 10/20/19 14:00:00 Time Out 10/20/19 14:34:00 10/20/19 14:34:00 Procedure DILATATION and SUCTION DILATATION and SUCTION CURETTAGE(.) CURETTAGE(.) Comments Last Modified By: Polo RNNona RN, Emily A 10/20/19 14:35:30 10/20/19 14:35:30 Perioperative Protocols FT Pre-Care Text: Implements protective measures prior to operative or invasive procedure, confirms identity before the operative or invasive procedure, verifies operative procedure, surgical site, and laterality Entry 1 Procedure(s) DILATATION and SUCTION Patient Identity Birthday, ID Band CURETTAGE(.) Verified (select at Check, Patient least 2): Participation Consents / H and P Anesthesia Consent, Operative Site N/A Verified HandP, Surgery/Procedure Marking Verified Consent Surgical Site Yes Laterality Verified n/a Verified Procedure Verified Yes Correct Patient Yes Position Verified Availability Equipment, Medication Prep Dry n/a Verified (If Applicable) PreOp Antibiotic No Time Out Brown JOSR, Geri C, Given Participants Davie Grijalva MD, Annelise RN, Polo Chase RN, Emily A, Costello CST, Amber Time Out Complete 10/20/19 14:17:00 Outcomes Met? Yes Last Modified By: Nona Cuellar RN 10/20/19 14:20:58 Post-Care Text: The patient is free from signs and symptoms of injury caused by extraneous objects Allergy Information FT Pre-Care Text: Verifies allergies Entry 1 Allergies Reviewed? Yes Allergies Reviewed Self/Patient With Outcomes Met? Yes Last Modified By: Nona Cuellar RN 10/20/19 13:55:49 Post-Care Text: The patient received appropriate medication(s) safely administered during the perioperative period Surgical Procedures FT Entry 1 Procedure Description Procedure DILATATION and SUCTION Modifiers . CURETTAGE Surgeon Description DILATION and SUCTION CURETTAGE Primary Procedure Yes Primary Surgeon Davie Grijalva MD Start 10/20/19 14:19:00 Stop 10/20/19 14:25:00 Anesthesia Type General Surgical Service Obstetric Gynecology Wound Class 2 - Clean-Contaminated Last Modified By: Nona Cuellar RN 10/20/19 14:35:31 General Case Data FT Pre-Care Text: Classifies surgical wound, implements aseptic technique, initiates traffic control Entry 1 Case Information OR OR 6 FT Case Level Level 2 Wound Class 2 - Clean-Contaminated Specialty Obstetric Gynecology ASA Class 2 Preop Diagnosis MISSED MISCARRIAGE Postop Same As Preop Yes Postop Diagnosis MISSED MISCARRIAGE Outcomes Met? Yes Last Modified By: Juanita Stein CST 10/23/19 11:48:53 Post-Care Text: The patient is free from signs and symptoms of infection Skin Assessment (Pre Procedure) FT Pre-Care Text: Implements protective measures to prevent skin/ tissue injury due to thermal or mechanical sources Evaluates for signs and symptoms of physical injury to skin and tissue Entry 1 Skin Integrity Intact, [place], Warm, and Skin Abnormality No Dry Outcomes Met? Yes Last Modified By: Nona Cuellar RN 10/20/19 14:21:02 Post-Care Text: The patient is free from signs and symptoms of injury caused by extraneous objects Patient Positioning FT Pre-Care Text: Identifies physical alterations that require additional precautions for procedure-specific positioning, verifies presence of prosthetics or corrective devices, positions the patient, evaluates the patient for signs and symptoms of injury as a result of positioning Entry 1 Procedure DILATATION and SUCTION Body Position Low Lithotomy CURETTAGE(.) Feet Uncrossed? Yes Left Arm Position Extended on Padded Arm Board Right Arm Position Extended on Padded Arm Left Leg Position Secured in Stirrup Board Right Leg Position Secured in Stirrup Positioning Device Stirrups Yellow Fins, Pillow Under Head Large, Safety Strap Press Points Checked Yes By Rena Castelan RN, Brown CAA, Carly C, Coy RN, Emily A Outcomes Met? Yes Last Modified By: Nona Cuellar RN 10/20/19 14:23:04 Post-Care Text: The patient is free from signs and symptoms of injury related to positioning Patient Care Devices FT Pre-Care Text: Implements protective measures to prevent skin/ tissue injury due to thermal or mechanical sources Entry 1 Entry 2 Entry 3 Equipment Type MISTRAL FORCED AIR MONITOR CHARGE SURGERY PADDED STIRRUPS [F] WARMING SYSTEM UNIT[F] [F] Equipment Number [id number] Equipment Setting Outcomes Met? Yes Yes Yes Last Modified By: Nona Cuellar RN, RN, Emily A Coy RN, Emily A 10/20/19 14:01:24 10/20/19 14:01:24 10/20/19 14:01:24 Post-Care Text: The patient is free from signs and symptoms of injury caused by extraneous objects Transport To OR FT Pre-Care Text: Transports according to individual needs. Evaluates for signs and symptoms of skin and tissue injury as a result of transfer or transport Entry 1 Via Cart By Rena Castelan RN Safety Precautions Side Rails Up Outcomes Met? Yes Last Modified By: Nona Cuellar RN 10/20/19 13:54:14 Post-Care Text: The patient is free from signs and symptoms of injury related to transfer/transport Counts Verification FT Pre-Care Text: Performs required counts Entry 1 Entry 2 Procedure(s) DILATATION and SUCTION DILATATION and SUCTION CURETTAGE(.) CURETTAGE(.) Type Initial Final Items Sponges Sponges Status Correct Correct Time By Nona Cuellar RN, Hord RN, Abby, Costello Crook [employer], Mónica [employer], Mónica Outcomes Met? Yes Yes Last Modified By: WarrenNona bishop RN, RN, Emily A 10/20/19 14:21:22 10/20/19 14:26:27 Post-Care Text: The patient is free from signs and symptoms of injury caused by extraneous objects Skin Prep FT Pre-Care Text: Performs skin preparations Entry 1 Procedure DILATATION and SUCTION Prep Area vagina CURETTAGE(.) Prep Agents Betadine Scrub and Solution Hair Removal Methods Not Indicated By Rena Castelan RN Outcomes Met? Yes Last Modified By: Nona Cuellar RN 10/20/19 14:21:57 Post-Care Text: The patient is free from signs and symptoms of infection Departure From OR FT Pre-Care Text: Transports according to individual needs. Evaluates for signs and symptoms of skin and tissue injury as a result of transfer or transport. Entry 1 Via Cart Safety Precautions Side Rails Up PostOp Destination PACU Transported By Rena Castelan RN Patient Status Stable Skin. Condition Intact, [place], Warm, and Dry Airway Maintenance Oxygen in Use? Yes Airway Device Simple Mask Flow Rate 8 L/min Outcomes Met? Yes Last Modified By: Nona Cuellar RN 10/20/19 14:35:23 Post-Care Text: The patient is free from signs and symptoms of injury related to transfer/transport General Comments: report given to airborne and air delivery specialistElayne mayo rn Dressing/Packing FT Pre-Care Text: Administers care to wound sites Entry 1 Type Dressing Site and Details peripad Outcomes Met? Yes Last Modified By: Nona Cuellar RN 10/20/19 14:34:16 Post-Care Text: The patient is free from signs and symptoms of infection Medication Administration FT Pre-Care Text: Verifies allergies, administers prescribed medications and solutions, administers prescribed antibiotic therapy and immunizing agents as ordered, evaluates response to medications Administers prescribed medications and solutions Entry 1 Route of Admin Field Expiration Date Yes Verified Outcomes Met? Yes Last Modified By: Nona Cuellar RN 10/20/19 13:54:29 Post-Care Text: The patient received appropriate medication(s) safely administered during the perioperative period For Daugherty-Angel please see scanned medication reconcilliation form for medications used at the field during the procedure. Urinary Catheter Pre-Care Text: Patient is prepped using sterile technique. Entry 1 Urinary Catheter CATH URETHRAL STRAIGHT Present Upon Arrival No Inserted 16FR [[id number]][F] Insertion Date/Time 10/20/19 14:15:00 Insertion Site Uretheral Urine bladder completely Inserted By Rena Castelan RN Characteristics drained, unmeasureable clear yellow urine Discontinued? Yes When was the Immediately Discontinued catheter discontinued? DC'd By Rena Castelan RN Outcomes Met? Yes Last Modified By: Nona Cuellar RN 10/20/19 14:34:49 Post-Care Text: The patient is free from signs of trauma. Cultures and Specimens FT Pre-Care Text: Manages specimen handling and disposition Manages culture specimen collection Entry 1 Cultures Ordered No Specimens Ordered Yes Specimen Disposition Designated OR Area Frozen Section Times Outcomes Met? Yes Last Modified By: Nona Cuellar RN 10/20/19 14:35:12 Post-Care Text: The patient is free from signs and symptoms of injury caused by extraneous objects The patient is free from signs and symptoms of infection General Comments: specimen: products of conception. - e.polo goodrich Temperature Control Entry 1 Temperature Control BLANKET MISTRAL AIR Quantity 1 Aid TORSO [[id number]][F] Fluid/Murray Unit Mistral warming system Setting high/43 Body Site Upper anterior torso Last Modified By: Nona Cuellar RN 10/20/19 13:54:58 Case Comments Finalized By: Juanita Stein CST Document Signatures Signed By: Nona Cuellar RN 10/20/19 14:35 Juanita Stein CST 10/23/19 11:48 Normal [facility] Operative Reporton 0 Operative Report Date of Surgery: 10/20/2019 SURGEON: Davie Grijalva MD, FACOG PREOPERATIVE DIAGNOSIS: Inevitable miscarriage POSTOPERATIVE DIAGNOSIS: Inevitable miscarriage OPERATION: Dilation and suction curettage ANESTHESIA: General ANESTHESIOLOGIST: JOSR Grant PREOPERATIVE HISTORY: The patient is a 33-year-old white female who presented to my office after successfully achieving in fertility clinic. Her hormones, as far as quantitative beta HCGs did not go up normally. She was diagnosed to have an intrauterine gestational sac consistent with 5- to 6-week size. She had tried conservative management, tried Cytotec, and ultimately desired suction and curettage. She was informed of the risks of the procedure including bleeding, infection, injury to internal organs, all of which she understood and accepted, appropriately signed consent forms, and made ready for the Operative Suite. PROCEDURE: Patient was taken to the Operative Suite and after a general anesthesia was administered the patient was draped and prepped in the usual fashion for vaginal surgery. A single tube vacuum was placed on the anterior lip of the cervix and the cervix was gently dilated to a Higgins 27. A 9 mm suction curette was placed inside the endometrial cavity and it was systematically suctioned and the products of conception being removed. A sharp curette was used to ensure that all products of conception were out and the uterus contracted down well. ESTIMATED BLOOD LOSS: Minimal FLUID REPLACEMENT: Adequate COMPLICATIONS: There were no complications COUNTS: Sponge and needle counts correct DISPOSITION: The patient was transferred to the Recovery Room in stable condition Originally transcribed by CRHilda on 10/21/2019, corrected by GLS on 10/23/2019 Davie Grijalva MD, FACOG gls Dictated: 10/20/2019 #[id number] Typed: 10/23/2019 #[id number] cc: Davie Grijalva MD, FACOG [facility] Comment on above: Result Comment: Elec tronically Signed By: Rudi GUSTAFSON, Davie Duong\.br\Date and Time Signed: 10/23/19 08:04 EST Operative Report Date of Surgery: 10/20/2019 SURGEON: Davie Grijalva MD, FACOG PREOPERATIVE DIAGNOSIS: Inevitable miscarriage POSTOPERATIVE DIAGNOSIS: Inevitable miscarriage OPERATION: Dilation and suction curettage ANESTHESIA: General ANESTHESIOLOGIST: JOSR Grant PREOPERATIVE HISTORY: The patient is a 33-year-old white female who presented to my office after successfully achieving in fertility clinic. Her hormones, as far as quantitative basis she achieved and that normally. She was diagnosed to have an intrauterine gestational sac consistent with 5- to 6-week size. She had tried conservative management, tried Cytotec, and ultimately desired suction and curettage. She was informed of the risks of the procedure including bleeding, infection, injury to internal organs, all of which she understood and accepted, appropriately signed consent forms, and made ready for the Operative Suite. PROCEDURE: Patient was taken to the Operative Suite and after a general anesthesia was administered the patient was draped and prepped in the usual fashion for vaginal surgery. A single tube vacuum was placed on the anterior lip of the cervix and the cervix was gently dilated to a Higgins 27. A 9 mm suction curette was placed inside the endometrial cavity and it was systematically suctioned and the products of conception being removed. A sharp curette was used to ensure that all products of conception were out and the uterus contracted down well. ESTIMATED BLOOD LOSS: Minimal FLUID REPLACEMENT: Adequate COMPLICATIONS: There were no complications COUNTS: Sponge and needle counts correct DISPOSITION: The patient was transferred to the Recovery Room in stable condition Davie Grijalva MD, FACOG cr Dictated: 10/20/2019 #[id number] Typed: 10/21/2019 #[id number] cc: Davie Grijalva MD, FACISRAEL [facility] Comment on above: Result Comment: Elec tronically Signed By: Rudi GUSTAFSON, aDvie Duong\.br\Date and Time Signed: 10/22/19 09:39 EST Other Comment: PENNY ABDUL, DO NOT USE THIS REPORT Progress Note-Physicianon Progress Note-Physician Patient: SUKHDEV SCHWARTZ Age: 33 years Sex: Female : 1985 Associated Diagnoses: None Author: Davie Eaton Jr, DO Preoperative Information Time patient last ate or drank:=== (npo 8 hours) Anesthesia history: Patient history: No prior anesthesia problems. Re-evaluation prior to induction: Completed, Initial evaluation reviewed. Review of Systems Respiratory: No shortness of breath. Cardiovascular: No chest pain. Hematology/Lymphatics: No bruising tendency, No bleeding tendency. Health Status Allergies: Allergic Reactions (All) Severe Pollen- Hayfever. Severity Not Documented Levaquin- Liver damage. Canceled/Inactive Reactions (All) No Known Medication Allergies Current medications: (Selected) Inpatient Medications Ordered HYDROmorphone 1 mg/mL injectable solution: 0.4 mg = 0.4 mL, Injection, IV Push, q4min PRN Pain for 5 dose(s), Stop date Limited # of times, Routine, Start date 10/20/19 14:00:00 EST Lactated Ringers IV Sherrie 1000 mL 1,000 mL: 1,000 mL, IV, 100 mL/hr, Routine, Start date 10/20/19 14:00:00 EST, 10 hour(s), Total volume (mL): 1,000, 2.35, m2 Lactated Ringers IV Sherrie 1000 mL 1,000 mL: 1,000 mL, IV, 150 mL/hr, Routine, Start date 10/20/19 14:00:00 EST, 6.7 hour(s), Total volume (mL): 1,000, 2.35, m2 Phenergan 25 mg/mL Injection: 12.5 mg = 0.5 mL, Injection, IV Push, q2min PRN Other (see comment) for 2 dose(s), Stop date Limited # of times, Routine, Start date 10/20/19 14:00:00 EST Documented Medications Documented Multivitamins: 1 tab(s), Oral, Daily, Refill(s) 0, Prophylaxis Tylenol Extra Strength 500 mg oral tablet: 500 mg = 1 tab(s), Oral, q4hr, PRN for fever, # 60 tab(s), Refills(s) 0 Vitamin B-12: 5,000 microgram, Oral, Daily, Refills(s) 0, Prophylaxis Vitamin D3 5000 intl units oral capsule: 5,000 International_Unit = 1 cap(s), Oral, Daily, with food, # 100 cap(s), Refills(s) 0, Prophylaxis biotin: 10,000mcg, Oral, Daily, Refills(s) 0, Prophylaxis levothyroxine 50 mcg (0.05 mg) Tab: 50 microgram = 1 tab(s), Oral, Daily, Refills(s) 0, Thyroid loratadine 10 mg Tab: 10 mg = 1 tab(s), Oral, Daily, Refills(s) 0, Allergy symptoms misoprostol 100 mcg Tab: 100 microgram = 1 tab(s), Oral, BID, Refills(s) 0, Other (see comment) ranitidine 150 mg Tab: 150 mg = 1 tab(s), Oral, BID, Refills(s) 0, Control of stomach acid Problem list: All Problems Ovarian dysfunction / SNOMED CT 87709391 / Confirmed Hypothyroidism / SNOMED CT 68461289 / Confirmed Incomplete miscarriage / SNOMED CT 481720962 / Confirmed missed Pancreatitis / SNOMED CT 252450856 / Confirmed Histories Past Medical History: No active or resolved past medical history items have been selected or recorded. Family History: Diabetes mellitus type 2 Mother Thyroid cancer Mother Sister Procedure history: Cholecystectomy ([id number]) on 07/19/2019 at 33 Years. DIAGNOSTIC LAPAROSCOPY , DIAGNOSTIC HYSTEROSCOPY on 03/31/2019 at 33 Years. gastric sleeve in 2017 at 31 Years. microdissectomy l4-6 in the month of 12/2016 at 30 Years. Social History Social & Psychosocial Habits Alcohol 03/27/2019 Risk Assessment: Denies Alcohol Use 04/21/2019 Concerns about alcohol use in household: No Comment: The patient denies any alcohol use, tobacco use, or substance abuse. - 04/21/2019 01:38 - Jeanette Parks RN 07/17/2019 Use: Current Comment: Denies - 07/17/2019 21:14 - Yaneli Dyson RN Substance Abuse 03/27/2019 Risk Assessment: Denies Substance Abuse 04/21/2019 IV drug use: No Concerns about substance abuse in household: No Comment: Denies - 07/17/2019 21:14 - Yaneli Dyson RN Tobacco 03/27/2019 Risk Assessment: Denies Tobacco Use 06/12/2019 Tobacco Use: Never (less than 100 in l Smokeless tobacco use: Never Concerns about tobacco use in household: No Comment: Denies - 07/17/2019 21:14 - Yaneli Dyson RN 07/28/2019 Tobacco Use: Never (less than 100 in l . Physical Examination Vital Signs 10/20/2019 13:14 EST Heart Rate Monitored 67 bpm Systolic Blood Pressure 122 mmHg Diastolic Blood Pressure 76 mmHg Blood Pressure Location Left arm Mean Arterial Pressure, Monitered 91 mmHg 10/20/2019 13:13 EST Temperature Oral 36.8 DegC Heart Rate Monitored 71 bpm Respiratory Rate 16 br/min Systolic Blood Pressure 126 mmHg Diastolic Blood Pressure 81 mmHg Blood Pressure Location Right arm Mean Arterial Pressure, Monitered 96 mmHg SpO2 100 % 10/20/2019 13:13 EST Apical Heart Rate 72 bpm Respiratory: Lungs are clear to auscultation. Cardiovascular: Normal rate, Regular rhythm. Review / Management Results review Interpretation of Outside Results Chest x-ray results Radiology results ECG interpretation Condition Plan [place] [employer]hesi[employer] (ASA) physical status classification: Class II. Anesthetic Preoperative Plan Anesthesia: General. . Anesthetic plan, risks, benefits, and alternatives discussed with the patient and/or family. Risks discussed: nausea, vomiting, headache, sore throat, dental injury, serious complications. Patient verbalized understanding. Communication: face to face with (patient 5 minutes, Pt educated on the importance of smoking cessation.). [facility] Comment on above: Result Comment: Elec tronically Signed By: Davie Eaton Jr, DO\doyle\Date and Time Signed: 10/23/19 07:34 EST Coding Summary.on 10-20-2019 Coding Summary. CODING DATE: 020 FINAL [facility] STATUS: Home (Routine DC) PAYOR: Commercial Insurance DIAGNOSES: ADMIT DX: REASON FOR VISIT DX: FINAL DX: PRINCIPAL: O26.20 care for patient with recurrent loss, unspecified trimester SECONDARY: PROCEDURES: DOCTOR NAME DATE NOTE: The code number assigned matches the documented diagnosis and / or procedure in the patient's chart. However, the narrative phrase printed from the coding software may appear abbreviated, or result in slightly different terminology. Coded By: Teri Hill CphT Date Saved: 10/20/2019 09:01 am [facility] History and Physicalon 10-20 History and Physical HOSPITAL REGULATIONS: ALL Positive Important Negative Findings Shall Be Recorded DATE ADMITTED: 10/20/2019 ADMITTING DIAGNOSIS: Missed miscarriage. HISTORY OF PRESENT ILLNESS: The patient is a 33-year-old white female who presented to my office after she had successfully achieved at an infertility clinic. Her hormones did not go up normally, continued to go up slowly. She was found to gestational sac consistent with 5-6 week size. She had been tried with conservative management, tried with Cytotec and she had ultimately desired to have suction curettage performed. She was informed of the risks of procedure including bleeding, infection, injury to internal organs, all of which she understood and accepted and appropriately signed consent forms and made ready for the Operative Suite. PAST MEDICAL HISTORY: Allergies: No known allergies. Medications: Synthroid, hydrochlorothiazide, Norvasc, vitamins, Glucophage, clomiphene and Cytotec. Illnesses: Hypertension. Surgeries: Back surgery in 2017, gastric sleeve in 2017, laparoscopy in March of 2019. FAMILY HISTORY: Mother's side with diabetes, mother's side with hypertension. Mother with thyroid cancer. PSYCHOSOCIAL HISTORY: Negative for cigarettes. Negative for ETOH. REVIEW OF SYSTEMS: Noncontributory. PHYSICAL EXAMINATION: GENERAL: A well-developed, well-nourished, white female in no acute distress. VITAL SIGNS: Afebrile, pulse 80, respirations 18, blood pressure 144/90. HEAD AND E.E.N.T.: Normocephalic. Extraocular muscles intact. The pupils equal and responsive to light and accommodation. Nose and throat clear. NECK: Without masses. Without thyromegaly. LUNGS: Clear to auscultation and percussion. HEART: Regular rate and rhythm. BREASTS: Nonpathologic. ABDOMEN: Soft, nontender. Positive bowel sounds. Negative for guarding. Negative for rebound. EXTREMITIES: Negative for clubbing, cyanosis or edema. PELVIC: Normal external genitalia. Vault within normal limits. Cervix without lesion. Uterus generous normal size, shape, consistency, 6-8 week size. Adnexa without mass, nontender. IMPRESSION: Inevitable miscarriage, missed miscarriage for suction curettage. Davie Grijalva MD, FACOG gls Dictated: 10/20/2019 #[id number] Typed 10/20/2019 #[id number] cc: Davie Grijalva MD, FACOG [facility] Comment on above: Result Comment: Elec tronically Signed By: Rudi GUSTAFSON, Davie Duong\.br\Date and Time Signed: 10/20/19 10:15 EST Inpatient Patient Summaryon 10-20-2019 Inpatient Patient Summary [place] [id number] [facility] Clinical Discharge Instructions PERSON INFORMATION Name: SUKHDEV SCHWARTZ [facility]#:[id number] PHYSICIANS Admitting Physician: Davie Grijalva MD Attending Physician: Davie Grijalva MD PCP: LOLI MATIAS MD Discharge Diagnosis: Hypothyroidism; Incomplete miscarriage; Status post dilation and curettage Comment: PATIENT EDUCATION INFORMATION Instructions: Post Op Patient Instructions - FT (CUSTOM); CHECKOUT OPERATOR - Post D&C, Hysteroscopy, LEEP or Essure/Laparoscopy (CUSTOM) Medication Leaflets: Follow up: With: Address: When: Davie Grijalva [address] [place] [address] Business (1) Comments: Call for any problems. MEDICATION LIST New Medications [facility] [address], [address] [place], [place] [id number], [phone] ibuprofen (ibuprofen 600 mg Tab) 1 Tablets By Mouth every 6 hours. Refills: 0. Medications to Continue with No Changes Other Medications acetaminophen (Tylenol Extra Strength 500 mg oral tablet) 1 Tablets By Mouth every 4 hours as needed for fever. biotin 10,000mcg By Mouth every day. cholecalciferol (Vitamin D3 5000 intl units oral capsule) 1 Capsules By Mouth every day. with food. cyanocobalamin (Vitamin B-12) 5,000 Microgram By Mouth every day. levothyroxine (levothyroxine 50 mcg (0.05 mg) Tab) 1 Tablets By Mouth every day. loratadine (loratadine 10 mg Tab) 1 Tablets By Mouth every day. misoprostol (misoprostol 100 mcg Tab) 1 Tablets By Mouth 2 times a day., for miscarriage multivitamin, ( Multivitamins) 1 Tablets By Mouth every day. ranitidine (ranitidine 150 mg Tab) 1 Tablets By Mouth 2 times a day. Comment: [facility] Main OR PACU I Recordon Main OR PACU I Record PACU Phase I Document Type FT Summary Primary Physician: Davie Grijalva MD Finalized Date/Time: 10/20/19 14:55:25 Pt. Name: SEN SCHWARTZTRUMAN Cote/Sex: 1985 Female Med Rec #: [id number] Physician: Davie Grijalva MD Financial #: [id number] Pt. Type: A Room/Bed: 05/18 Admit/Disch: 10/20/19 12:59:16 - Institution: Case Times PACU I FT Pre-Care Text: Identifies barriers to communication and implements measures to provide psychological support Develops individualized plan of care, and ensures continuity of care Maintains patient's dignity and privacy, and maintains patient confidentiality Identifies and reports philosophical, cultural, and spiritual beliefs and values Identifies individual values and wishes concerning care Implements aseptic technique, and administers prescribed antibiotic therapy and immunizing agents as ordered Evaluates postoperative tissue perfusion Implements thermoregulation measures, and monitors body temperature Evaluates postoperative respiratory status Evaluates postoperative cardiac status Evaluates postoperative neurological status Assesses pain control, collaborated in initiating patient-controlled analgesia and implements alternative methods of pain control Verifies allergies, administers prescribed medications and solutions, evaluates response to medications Entry 1 In PACU I 10/20/19 14:35:00 Discharge from PACU 10/20/19 15:05:00 I Outcomes Met? Yes Last Modified By: Carin Iverson RN 10/20/19 14:55:12 Post-Care Text: The patient demonstrates knowledge of the expected response to the operative or invasive procedure The patient's care is consistent with the individualized perioperative plan of care The patient's right to privacy is maintained The patient's value system, lifestyle, ethnicity, and culture are considered, respected, and incorporated into the perioperative plan of care The patient participates in decisions affecting his or her perioperative plan of care The patient is free from signs and symptoms of infection The patient has wound/tissue perfusion consistent with or improved from baseline levels established preoperatively The patient is at or returning to normothermia at the conclusion of the immediate postoperative period The patient's respiratory function is consistent with or improved from baseline levels established preoperatively The patient's cardiovascular status is consistent with or improved from baseline levels established preoperatively The patient's cardiovascular status is consistent with or improved from baseline levels established preoperatively The patient demonstrates and/or reports adequate pain control throughout the perioperative period The patient received appropriate medication(s), safely administered during the perioperative period Acuity Level PACU I FT Entry 1 Start Time 10/20/19 14:35:00 Stop Time 10/20/19 15:05:00 Acuity Level Acuity Level I Last Modified By: Carin Iverson RN 10/20/19 14:55:24 Finalized By: Carin Iverson RN Document Signatures Signed By: Carin Iverson RN 10/20/19 14:55 [facility] Main OR Preoperative Recordo n 10-20-2019 Main OR Preoperative Record PreOp Document Type FT Summary Primary Physician: Davie Grijalva MD Finalized Date/Time: 10/20/19 14:24:04 Pt. Name: SUKHDEV SCHWARTZ/Sex: 1985 Female Med Rec #: [id number] Physician: Davie Grijalva MD Financial #: [id number] Pt. Type: A Room/Bed: [facility] Admit/Disch: 10/20/19 12:59:16 - Institution: Case Times PreOp FT Pre-Care Text: Verifies consent for planned procedure, identifies individual values and wishes concerning care, includes family members in perioperative teaching Entry 1 Patient Times. In Pre Surgery 10/20/19 13:05:00 Out Pre Surgery 10/20/19 13:58:00 Outcomes Met? Yes Last Modified By: Nona Cuellar RN 10/20/19 14:24:00 Post-Care Text: The patient participates in decisions affecting his or her perioperative plan of care Finalized By: Nona Cuellar RN Document Signatures Signed By: Nona Cuellar RN 10/20/19 14:24 [facility] Patient Education - Texton 0 10-20-2019 Patient Education - Text Instructions post D & C, hysteroscopy, LEEP or Essure/laparoscopy You can resume all normal activities within 24 hours following surgery. For 24 hours: no driving, making any important decisions, drinking alcohol ? and a responsible adult should stay with you today. Please refrain from intercourse, douches, and tampons for the next two weeks. You can expect some vaginal spotting, cramps, or light bleeding for a week and up to ten days after surgery. This is normal. If you are soaking a pad an hour or more frequently ? you need to call your doctor. Your first period may not be normal, but most women resume their normal cycles within a month or two. It is helpful for your doctor if you keep a written record of your bleeding following surgery. When abnormal bleeding persists for 2-3 cycles, please bring the record to your doctor. Return to the office for post-operative check, and to go over any biopsy results at your scheduled appointment; usually two weeks following surgery. If you are uncertain if an appointment has been made, please call the office. CALL THE DOCTOR if you have severe pain, heavy bleeding, or a temperature of 100.5 or higher. Resume your regular home medication schedule as soon as you are eating a regular diet. You can either take the prescribed medications as directed for pain, or you can take over the counter pain medication such as Motrin, as indicated on the package for pain or cramps. PLEASE CALL FOR ANY PROBLEMS [facility] Coding Summary.on 10-19-2019 Coding Summary. CODING DATE: 020 FINAL [facility] STATUS: Home (Routine DC) PAYOR: Commercial Insurance ADMIT DX: REASON FOR VISIT DX: Z01.818 Encounter for other preprocedural examination FINAL DX: PRINCIPAL: Z01.818 Encounter for other preprocedural examination SECONDARY: PYMT PROC APC STAT DESCRIPTION DOCTOR NAME DATE NOTE: The code number assigned matches the documented diagnosis and / or procedure in the patient's chart. However, the narrative phrase printed from the coding software may appear abbreviated, or result in slightly different terminology. Coded By: Teri Hill CphT Date Saved: 10/19/2019 12:19 pm [facility] RPRon 10-19-2019 Reagin Ab RPR Ql (S) Non-Reactive Normal Non-Reactiv e [facility] Comment on above: Performed By: #### 1 [id number], 0087812, 0648356, 5172438, 3765403, 4036469, 36557686, 1087527 #### [facility] [address] [place] [address] ABO/Rh Retypeon 10-17-2019 ABO/Rh Retype Interp Positive [facility] Comment on above: Performed By: #### 1 [id number], 1993391, 0552320, 7794858, 2869660, 4746854, 70114275, 3646688 #### [facility] [address] [place] [address] BUNon 10-17-2019 Urea nitrogen [Mass/Vol] 12 mg/dL Normal 5-21 [facility] Comment on above: Performed By: #### 1 2965179, 5102738, 0155243, 3446458, 6459758, 6313219, 27867557, 2585899 #### [facility] [address] [place] [address] CBC w/Indiceson 10-17-2019 Erythrocyte distribution width (RBC) [Ratio] 12.7 % Normal 10.9-14.2 [facility] Comment on above: Performed By: #### 1 2404957, 5477379, 8673328, 7414459, 2288917, 4779241, 55095347, 2433059 #### [facility] [address] [place] [address] Hematocrit (Bld) [Volume fraction] 34.6 % Normal 34.0-46.0 [facility] Comment on above: Performed By: #### 1 1249323, 9628024, 5114603, 1754307, 3720334, 9740268, 68647856, 2681849 #### [facility] [address] [place] [address] Hemoglobin (Bld) [Mass/Vol] 11.7 g/dL Low 12.0-16.0 [facility] Comment on above: Performed By: #### 1 2287765, 0027098, 7563752, 7929719, 6917353, 6416252, 54833225, 5165663 #### [facility] [address] [place], [place] [address] MCH (RBC) [Entitic mass] 30.7 pg Normal 27.0-34.0 [facility] Comment on above: Performed By: #### 1 9068532, 2735324, 7675785, 4942900, 2995891, 4598903, 73785089, 3087809 #### [facility] [address] [place] [address] MCHC (RBC) [Mass/Vol] 33.8 g/dL Normal 31.4-36.0 [facility] Comment on above: Performed By: #### 1 2916009, 1255453, 3248698, 2764702, 0525999, 3543289, 47674784, 0037839 #### [facility] [address] [place] [address] MCV (RBC) [Entitic vol] 90.8 fL Normal 80.0-100.0 [facility] Comment on above: Performed By: #### 1 5473402, 7661110, 7383208, 6251681, 5724537, 7630824, 09567021, 3376160 #### [facility] [address] [place] [address] Platelet mean volume (Bld) [Entitic vol] 7.5 fL Normal 6.4-10.8 [facility] Comment on above: Performed By: #### 1 0208289, 2228305, 0878934, 5612520, 6236039, 5051456, 39544777, 3459762 #### [facility] [address] [place] [address] Platelets (Bld) [#/Vol] 319.0 E9/L Normal 150.0-500.0 [facility] Comment on above: Performed By: #### 1 3576764, 4272461, 9481878, 1776039, 4723484, 8928417, 77401602, 3208237 #### [facility] [address] [place] [id number] RBC (Bld) [#/Vol] 3.8 E12/L Low 4.3-5.9 [facility] Comment on above: Performed By: #### 1 9586248, 6033812, 8636040, 4887180, 3786403, 8781101, 58282573, 2816842 #### [facility] [address] [place] [address] WBC corrected for nucl RBC Auto (Bld) [#/Vol] 6.1 E9/L Normal 4.0-11.0 [facility] Comment on above: Performed By: #### 1 3954843, 9865513, 7896283, 9241017, 9729454, 8832079, 24678805, 0215477 #### [facility] [address] [place] [address] Creatinineon 10-17-2019 Creatinine [Mass/Vol] 0.6 mg/dL Normal 0.5-1.3 [facility] Comment on above: Performed By: #### 1 1097619, 2764925, 8792673, 5445760, 8476888, 4642471, 99593063, 0139481 #### [facility] [address] [place] [address] Lyteson 10-17-2019 Anion gap [Moles/Vol] 12 mmol/L Normal 6-16 [facility] Comment on above: Performed By: #### 1 2380296, 1884138, 4431803, 5506917, 1746835, 5969021, 98601371, 8336855 #### [facility] [address] [place] [address] Chloride [Moles/Vol] 109 mmol/L Normal 101-111 [facility] Comment on above: Performed By: #### 1 7470900, 1063864, 0130528, 2417529, 6353134, 5752585, 12036843, 1816157 #### [facility] [address] [place] [address] CO2 [Moles/Vol] 26 mmol/L Normal 21-31 [facility] Comment on above: Performed By: #### 1 7728582, 0442029, 5683181, 8083844, 0930552, 8665055, 44912659, 7974982 #### [facility] [address] [place] [address] Potassium [Moles/Vol] 4.3 mmol/L Normal 3.5-5.3 [facility] Comment on above: Performed By: #### 1 7975382, 6936121, 8245488, 7955145, 0704466, 9186904, 42308662, 8004167 #### [facility] [address] [place] [address] Sodium [Moles/Vol] 143 mmol/L Normal 135-145 [facility] Comment on above: Performed By: #### 1 0480574, 2644440, 3340748, 8272815, 7941160, 6895793, 62440612, 7642067 #### [facility] [address] [place] [address] PT & PTTon 10-17-2019 aPTT Coag (PPP) [Time] 29.9 second(s) Normal 25.1-36.5 [facility] Comment on above: Result Comment: Hepa rin therapeutic range (represented by Anti-Factor Xa activity of 0.2 - 0.4 U/mL) corresponds to PTT of 56.6 - 109.0 sec. Performed By: #### 1 6221870, 6666337, 3175397, 9350397, 2084567, 4213894, 80295305, 6036892 #### [facility] [address] [place] [address] INR Coag (PPP) [Relative time] 1.0 {INR} [facility] Comment on above: Result Comment: INR results are specifically intended to assess patients stabilized on long-term Anticoagulation therapy suggested INR?s ?Less Intensive Anticoagulation? 2.0 ? 3.0 Conventional Range 3.0 ? 4.5 Performed By: #### 1 0863647, 1204800, 3068106, 2695492, 5185165, 7227202, 87676833, 1710713 #### [facility] [address] [place] [address] PT Coag (PPP) [Time] 11.0 second(s) Normal 10.2-12.9 [facility] Comment on above: Performed By: #### 1 5636067, 0667716, 7010113, 1395004, 2567159, 1544301, 83901046, 3668281 #### [facility] [address] [place] [address] eGFRon 10-17-2019 GFR/1.73 sq M predicted among blacks MDRD (S/P/Bld) [Vol rate/Area] mL/min/{1.73_m2} Normal >=59 [facility] Comment on above: Order Comment: Order added by Discern Expert. Result Comment: eGFR is race adjusted. AA=. Performed By: #### 1 6180442, 7867962, 1937232, 4191177, 1968239, 9048288, 34985244, 0235564 #### [facility] [address] [place] [address] GFR/1.73 sq M predicted among non-blacks MDRD (S/P/Bld) [Vol rate/Area] mL/min/{1.73_m2} Normal >=59 [facility] Comment on above: Order Comment: Order added by Discern Expert. Result Comment: Contract Forester ivan kidney disease could be indicated at eGFR's of less than 60 mL/min/1.73m2. Kidney failure is indicated at less than 15 mL/min/1.73m2. Performed By: #### 1 9981864, 3180817, 2183164, 0857866, 8373586, 6936995, 60585771, 4197047 #### [facility] [address] [place] [address] Coding Summary.on 10-12-2019 Coding Summary. CODING DATE: 019 FINAL [facility] STATUS: Home (Routine DC) PAYOR: Commercial Insurance ADMIT DX: REASON FOR VISIT DX: O20.0 Threatened FINAL DX: PRINCIPAL: O20.0 Threatened SECONDARY: PYMT PROC APC STAT DESCRIPTION DOCTOR NAME DATE NOTE: The code number assigned matches the documented diagnosis and / or procedure in the patient's chart. However, the narrative phrase printed from the coding software may appear abbreviated, or result in slightly different terminology. Coded By: Teri Hill CphT Date Saved: 10/12/2019 12:46 pm [facility] BhCG Quanton 10-09-2019 HCG.beta subunit Qn 1862 m[IU]/mL High 1-3 [facility] Comment on above: Result Comment: GEST ATIONAL AGE HCG RANGE (mIU/mL) NON- <1-3 0.2-1 WEEKS 5-50 1-2 WEEKS 50-500 2-3 WEEKS 100-5,000 3-4 WEEKS 500-10,000 4-5 WEEKS 1,000-50,000 5-6 WEEKS 10,000-100,000 6-8 WEEKS 15,000-200,000 8-12 WEEKS 10,000-100,000 Performed By: #### 1 1742982, 7667848, 3628174, 7854287, 1850841, 4672741, 29954749, 1957005 #### [facility] [address] [place] [address] Coding Summary.on 10-06-2019 Coding Summary. CODING DATE: 019 FINAL [facility] STATUS: Home (Routine DC) PAYOR: Commercial Insurance APC DESCRIPTION 5522 Level 2 Imaging without Contrast ADMIT DX: REASON FOR VISIT DX: O20.0 Threatened FINAL DX: PRINCIPAL: O20.0 Threatened SECONDARY: PYMT PROC APC STAT DESCRIPTION DOCTOR NAME DATE NOTE: The code number assigned matches the documented diagnosis and / or procedure in the patient's chart. However, the narrative phrase printed from the coding software may appear abbreviated, or result in slightly different terminology. Coded By: Teri Hill CphT Date Saved: 10/06/2019 12:45 pm [facility] US 1st Trimesteron 10-06-2019 US 1st Trimester Exam Date/Time: 10/05/2019 13:34 EST Reason for Exam: POSSIBLE ATOPIC Report IMPRESSION: THERE IS AT LEAST ONE EARLY INTRAUTERINE GESTATIONAL SAC, CONTAINING A YOLK SAC, BUT WITHOUT A POLE VISUALIZED. THE MEAN SAC DIAMETER CORRESPONDS TO AN ULTRASOUND GESTATIONAL AGE OF 5 WEEKS, 1 DAYS. THERE IS AT LEAST ONE ADDITIONAL SMALL FLUID COLLECTION WITHIN THE FUNDUS CENTRALLY, BUT WITHOUT A VISUALIZED YOLK SAC OR POLE. THIS COULD REPRESENT AN EARLY GESTATIONAL SAC, BUT COULD ALSO REPRESENT A SMALL FOCAL FLUID COLLECTION, SUCH FROM A BLEED. THIS STUDY DOES NOT EXCLUDE THE POSSIBILITY OF CONCOMITANT ECTOPIC . FURTHER CLINICAL EVALUATION AND FOLLOW-UP ARE NEEDED. CLINICAL HISTORY: Possible ectopic. LMP: 08/18/2019 PRACHI from LMP: 05/24/2020 COMMENT: Transabdominal and transvaginal images were obtained. The uterus measurements and an estimated volume are: Uterus Length: 7.6 cm Uterus Width: 4.5 cm Uterus Height: 4.0 cm Uterus Volume: 71.3 cm3 As best visualized on transvaginal images, there are at least two small focal fluid collections within the uterine fundus centrally. At least one of these is a gestational sac with a diameter of: Mean Sac Diameter: 0.6 cm The corresponding gestational age +/- 1 week is: Composite Ultrasound Age: 5 weeks, 1 days PRACHI from average ultrasound age: 0806/05/2020 A yolk sac is identified within this gestational sac, but no pole is evident. No yolk sac nor pole is identified in the other focal fluid collection. This is comparable in size to the fluid collection containing the young sac, but whether this is a second gestational sac or a small liquefied hemorrhage is not determined. The right ovary measurements and estimated volume are: Right Ovary Length: 3.5 cm Right Ovary Width: 2.2 cm Right Ovary Height: 2.5 cm Right Ovary Volume: 9.7 cm3 The left ovary measurements and estimated volume are: Left Ovary Length: 5.0 cm Report Left Ovary Width: 5.0 cm Left Ovary Height: 2.7 cm Left Ovary Volume: 35.3 cm3 There are multiple small right ovarian cysts, consistent with follicular cysts. There are multiple left ovarian cysts, some are small and are consistent with follicular cysts, but there are several large left ovarian cysts. The largest has the appearance of a simple cyst, with a greatest diameter of 4.1 cm. There are additional ovoid structures in the left ovary, that measure up to 2 cm in greatest diameter, with internal echogenicity, and appearance suggests complex cysts (cysts with internal debris/hemorrhage). No adnexal complex is noted outside of either ovary. On color flow Doppler images, there is vascular flow to the ovaries. There is no free fluid in the cul-de-sac. FINAL REPORT Dictated: 10/06/2019 10:35 am Go Kaplan M.D. Signed (Electronic Signature): 10/06/2019 10:35 am Signed by: Go Kaplan M.D. Transcribed by: MADISON Technologist: COREY Technical Comments LMP : 08/18/19 Regular History 3 Para 0 Patient History Prior Complications hx 2 chemical pregnancies Transabdominal Ultrasound Performed Transvaginal Ultrasound Performed Size < Dates Uterus Position Anteverted [facility] US Transvaginalon 10-06-2019 US Transvaginal Exam Date/Time: 10/05/2019 13:36 EST Reason for Exam: possible ectopic Report PLEASE REFER TO THE ULTRASOUND FIRST TRIMESTER REPORT. FINAL REPORT Dictated: 10/06/2019 10:35 am Go Kaplan M.D. Signed (Electronic Signature): 10/06/2019 10:35 am Signed by: Go Kaplan M.D. Transcribed by: MADISON Technologist: COREY [facility] BhCG Quanton 10-05-2019 HCG.beta subunit Qn 1726 m[IU]/mL High 1-3 [facility] Comment on above: Result Comment: GEST ATIONAL AGE HCG RANGE (mIU/mL) NON- <1-3 0.2-1 WEEKS 5-50 1-2 WEEKS 50-500 2-3 WEEKS 100-5,000 3-4 WEEKS 500-10,000 4-5 WEEKS 1,000-50,000 5-6 WEEKS 10,000-100,000 6-8 WEEKS 15,000-200,000 8-12 WEEKS 10,000-100,000 Performed By: #### 2 [id number] ####[facility] [address] [place] [address] Coding Summary.on 10-04-2019 Coding Summary. 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 However, the narrative phrase printed from the coding software may appear abbreviated, or result in slightly different terminology. Coded By: Teri Hill CphT Date Saved: 10/04/2019 02:19 pm [facility] Estradiolon 10-04-2019 E2 [Mass/Vol] 189.4 pg/mL [facility] Comment on above: Result Comment: Adul t Female: Follicular phase 12.5 - 166.0 Ovulation phase 85.8 - 498.0 Luteal phase 43.8 - 211.0 Postmenopausal <6.0 - 54.7 1st trimester 215.0 - >4300.0 Girls (1-10 years) 6.0 - 27.0 Mal ECLIA methodology Performed at: [facility] [id number] PhD Subhash Coronel Performed By: #### 2 900589, 6945033, 13739151, 6463688 ####[facility] [address] [place] [address] FSH and LHon 10-04-2019 Follitropin Qn 4.6 m[IU]/mL [facility] Comment on above: Result Comment: [facility] terell Female: Follicular phase 3.5 - 12.5 Ovulation phase 4.7 - 21.5 Luteal phase 1.7 - 7.7 Postmenopausal 25.8 - 134.8 Performed at: [facility] [id number] PhD Subhash Coronel Performed By: #### 2 112170, 6432252, 16444917, 3823247 ####[facility] [address] [place] [address] Lutropin Qn 10.0 m[IU]/mL [facility] Comment on above: Result Comment: [facility] terell Female: Follicular phase 2.4 - 12.6 Ovulation phase 14.0 - 95.6 Luteal phase 1.0 - 11.4 Postmenopausal 7.7 - 58.5 Performed By: #### 2 931517, 2530277, 41022732, 4041382 ####[facility] [address] [place] [address] BhCG Quanton 10-03-2019 HCG.beta subunit Qn 1625 m[IU]/mL High 1-3 [facility] Comment on above: Result Comment: GEST ATIONAL AGE HCG RANGE (mIU/mL) NON- <1-3 0.2-1 WEEKS 5-50 1-2 WEEKS 50-500 2-3 WEEKS 100-5,000 3-4 WEEKS 500-10,000 4-5 WEEKS 1,000-50,000 5-6 WEEKS 10,000-100,000 6-8 WEEKS 15,000-200,000 8-12 WEEKS 10,000-100,000 Performed By: #### 2 657376 ####[facility] [address] [place] [address] Progesteroneon 10-03-2019 Progesterone [Mass/Vol] 7.80 ng/mL [facility] Comment on above: Result Comment: REFE RENCE RANGE Males 0.14-2.06 ng/mL Non- Females Follicular 0.10-0.60 ng/mL Luteal 3.00-17.5 ng/mL Midluteal 3.30-18.6 ng/mL Post-Menopausal 0.10-0.40 ng/mL First Trimester 8.30-66.5 ng/mL Second Trimester 18.9-66.1 ng/mL Third Trimester 35.8-312.4 ng/mL Performed By: #### 2 [id number], 5969498, 47030509, 5964789 ####[facility] [address] [place] [address] TSHon 10-03-2019 TSH Qn 0.84 mcIU/mL Normal 0.34-5.60 [facility] Comment on above: Performed By: #### 2 477935, 8706427, 39392948, 3294410 ####[facility] [address] [place] [address] Coding Summary.on 09-28-2019 Coding Summary. 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 However, the narrative phrase printed from the coding software may appear abbreviated, or result in slightly different terminology. Coded By: Adrienne Chau Date Saved: 09/28/2019 01:08 pm Normal [facility] BhCG Quanton 09-27-2019 HCG.beta subunit Qn 579 m[IU]/mL High 1-3 [facility] Comment on above: Result Comment: GEST ATIONAL AGE HCG RANGE (mIU/mL) NON- <1-3 0.2-1 WEEKS 5-50 1-2 WEEKS 50-500 2-3 WEEKS 100-5,000 3-4 WEEKS 500-10,000 4-5 WEEKS 1,000-50,000 5-6 WEEKS 10,000-100,000 6-8 WEEKS 15,000-200,000 8-12 WEEKS 10,000-100,000 Performed By: #### 2 [id number] ####[facility] [address] [place] [address] External Lab Vitamin B6on Vitamin B6 4.4 [facility] Vitamin Aon 09-20-2019 Vitamin A 75.2 [facility] Vitamin B1on 09-20-2019 Thiamine (Vitamin B1) 116.7 [facility] Zincon 09-20-2019 Zinc 97 [facility] Coding Summary.on 09-18-2019 Coding Summary. CODING DATE: 019 [facility] STATUS: Home (Routine DC) PAYOR: Commercial Insurance ADMIT DX: REASON FOR VISIT DX: O09.00 Supervision of with history of infertility, unspecified trimester FINAL DX: PRINCIPAL: O09.00 Supervision of with history of infertility, unspecified trimester SECONDARY: PROCEDURES DOCTOR NAME DATE NOTE: The code number assigned matches the documented diagnosis and / or procedure in the patient's chart. However, the narrative phrase printed from the coding software may appear abbreviated, or result in slightly different terminology. Coded By: Teri Hill CphT Date Saved: 09/18/2019 01:21 pm Normal [facility] EXT LAB FERRITINon 9 Ferritin [Mass/Vol] 55 ng/mL [facility] ealth External Lab Ironon 09-18-20 19 Iron [Mass/Vol] 89 ug/dL mcg/mL [facility] h External Lab Vitamin D, 25-O Hon 09-18-2019 Vitamin D, 25-OH 43.9 [facility] External Vitamin B12 and Fol ateon 09-18-2019 Cobalamin (Vitamin B12) [Mass/Vol] 291 pg/mL [facility] Folate 22.3 ng/mL Off scale high [facility] Interpretation and review of laboratory results Abnormal [facility] Vit Aon 09-18-2019 Retinol [Mass/Vol] 75.2 microgram/dL High 18.9-57.3 [facility] Comment on above: Result Comment: Refe rence intervals for vitamin A determined from [facility] internal studies. Individuals with vitamin A less than 20 ug/dL are considered vitamin A deficient and those with serum concentrations less than 10 ug/dL are considered severely deficient. This test was developed and its performance characteristics determined by [facility]. It has not been cleared or approved by the Food and Drug Administration. Performed at: [address] [id number] MD Keegan Limon Performed By: #### 2 856225, 6045650, 8643435, 8904124, 988214046, 73744544, 83538899, 31958343, 20025483 ####[facility] [address] [place] [address] Vit B1on 09-18-2019 Thiamine (Bld) [Moles/Vol] 116.7 nmol/L 66.5-200.0 [facility] Comment on above: Result Comment: This test was developed and its performance characteristics determined by [facility]. It has not been cleared or approved by the Food and Drug Administration. Performed at: [address] [id number] MD Keegan Limon Performed By: #### 2 583109, 2363293, 9852099, 8479971, 884994250, 93115007, 49768665, 21733844, 82592291 ####[facility] [address] [place] [address] Vitamin B6on 09-18-2019 Pyridoxine [Mass/Vol] 4.4 microgram/L 2.0-32.8 [facility] Comment on above: Result Comment: This test was developed and its performance characteristics determined by [facility]. It has not been cleared or approved by the Food and Drug Administration. Performed at: [address] [id number] MD Keegan Limon Performed By: #### 2 503807, 4377027, 8111978, 4499146, 782227600, 58108928, 09749417, 03326107, 35345680 ####[facility] [address] [place] [address] Zinc Lvlon 09-18-2019 Zinc [Mass/Vol] 97 microgram/dL 56-134 [facility] Comment on above: Result Comment: This test was developed and its performance characteristics determined by [facility]. It has not been cleared or approved by the Food and Drug Administration. Detection Limit = 5 Performed at: [facility] [id number] MD Keegan Limon Performed By: #### 2 876824, 9207355, 8424010, 4442077, 026206866, 16323891, 67166668, 60018183, 99452662 ####[facility] [address] [place] [address] Coding Summary.on 09-15-2019 Coding Summary. CODING DATE: 019 FINAL [facility] STATUS: Home (Routine DC) PAYOR: Commercial Insurance ADMIT DX: REASON FOR VISIT DX: Z98.84 Bariatric surgery status FINAL DX: PRINCIPAL: Z98.84 Bariatric surgery status SECONDARY: PROCEDURES DOCTOR NAME DATE NOTE: The code number assigned matches the documented diagnosis and / or procedure in the patient's chart. However, the narrative phrase printed from the coding software may appear abbreviated, or result in slightly different terminology. Coded By: Teri Hill CphT Date Saved: 09/15/2019 02:01 pm Normal [facility] Estradiolon 09-14-2019 E2 [Mass/Vol] 929.6 pg/mL [facility] Comment on above: Result Comment: Adul t Female: Follicular phase 12.5 - 166.0 Ovulation phase 85.8 - 498.0 Luteal phase 43.8 - 211.0 Postmenopausal <6.0 - 54.7 1st trimester 215.0 - >4300.0 Girls (1-10 years) 6.0 - 27.0 Mal ECLIA methodology Performed at: [facility] [id number] PhD Subhash Coronel Performed By: #### 2 195506, 9235787 ####[facility] [address] [place] [address] BhCG Quanton 09-13-2019 HCG.beta subunit Qn 132 m[IU]/mL High 1-3 [facility] Comment on above: Result Comment: GEST ATIONAL AGE HCG RANGE (mIU/mL) NON- <1-3 0.2-1 WEEKS 5-50 1-2 WEEKS 50-500 2-3 WEEKS 100-5,000 3-4 WEEKS 500-10,000 4-5 WEEKS 1,000-50,000 5-6 WEEKS 10,000-100,000 6-8 WEEKS 15,000-200,000 8-12 WEEKS 10,000-100,000 Performed By: #### 1 9171289, 9763638, 8655462, 5892333, 5187024, 0143492, 76661611, 5909764 #### [facility] [address] [place] [address] Ferritinon 09-13-2019 Ferritin [Mass/Vol] 55 ng/mL Normal 11-307 [facility] Comment on above: Result Comment: NORM ALS MEN <30 YRS 16-132 ng/mL MEN >30 YRS 8-338 ng/mL WOMEN (PREMEN) 6-104 ng/mL WOMEN (POSTMEN) 12-210 ng/mL Performed By: #### 1 7028172, 3036176, 4269918, 3798715, 5640101, 0495642, 36781775, 0483097 #### [facility] [address] [place] [address] Folateon 09-13-2019 Folate [Mass/Vol] ng/mL Normal >=6.7 [facility] Comment on above: Performed By: #### 1 7620494, 8809695, 7524445, 2868745, 6717371, 4977743, 21059993, 7555649 #### [facility] [address] [place] [address] Ironon 09-13-2019 Iron [Mass/Vol] 89 microgram/dL Normal 35-153 [facility] Comment on above: Performed By: #### 1 2428091, 2253598, 4892442, 5620819, 8812462, 5564766, 81793102, 9151504 #### [facility] [address] [place] [address] Progesteroneon 09-13-2019 Progesterone [Mass/Vol] 29.00 ng/mL [facility] Comment on above: Result Comment: REFE RENCE RANGE Males 0.14-2.06 ng/mL Non- Females Follicular 0.10-0.60 ng/mL Luteal 3.00-17.5 ng/mL Midluteal 3.30-18.6 ng/mL Post-Menopausal 0.10-0.40 ng/mL First Trimester 8.30-66.5 ng/mL Second Trimester 18.9-66.1 ng/mL Third Trimester 35.8-312.4 ng/mL Performed By: #### 2 523012, 8907938 ####[facility] [address] [place] [address] Vit B12on 09-13-2019 Cobalamin (Vitamin B12) [Mass/Vol] 291 pg/mL Normal 50-1500 [facility] Comment on above: Performed By: #### 2 010999, 1848379, 0529278, 5427254, 089124517, 98450939, 93744921, 18314306, 21120112 ####[facility] [address] [place] [address] Vitamin D 25 Hydroxyon 09-13 Calcidiol [Mass/Vol] 43.9 ng/mL Normal 30.0-100.0 [facility] Comment on above: Result Comment: Vit hutchinson D deficiency has been defined as a level of serum 25-OH vitamin D less than 20 ng/mL (1,2) by the [place] of Medicine and an Endocrine Society practice guideline. The Endocrine Society further defined vitamin D insufficiency as a level between 21 and 29 ng/mL (2). 1. IOM ([place] of Medicine). 2010. Dietary reference intakes for calcium and D. [place]: The National Academies Press. 2. Isaías MF, Renay NC, Foreign HUETRA, et al. Evaluation, treatment, and prevention of vitamin D deficiency: an Endocrine Society clinical practice guideline. JCEM. 2010; 96 (7):1911-30. Performed By: #### 2 779474, 4756424, 5269468, 5106995, 037179256, 25165289, 21999717, 99036063, 54065251 ####[facility] [address] [place] [address] Coding Summary.on 09-12-2019 Coding Summary. 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 However, the narrative phrase printed from the coding software may appear abbreviated, or result in slightly different terminology. Coded By: Teri Hill CphT Date Saved: 09/12/2019 07:36 am Normal [facility] Estradiolon 09-12-2019 E2 [Mass/Vol] 1006.0 pg/mL [facility] Comment on above: Result Comment: Adul t Female: Follicular phase 12.5 - 166.0 Ovulation phase 85.8 - 498.0 Luteal phase 43.8 - 211.0 Postmenopausal <6.0 - 54.7 1st trimester 215.0 - >4300.0 Girls (1-10 years) 6.0 - 27.0 Mal ECLIA methodology Performed at: [facility] [address] [id number] PhD Subhash Coronel Performed By: #### 1 [id number], 8538683, 0208332, 7588987, 0375344, 4950062, 62410729, 5115465 #### [facility] [address] [place] [address] [facility] Quanton 09-11-2019 HCG.beta subunit Qn 121 m[IU]/mL High 1-3 [facility] Comment on above: Result Comment: GEST ATIONAL AGE HCG RANGE (mIU/mL) NON- <1-3 0.2-1 WEEKS 5-50 1-2 WEEKS 50-500 2-3 WEEKS 100-5,000 3-4 WEEKS 500-10,000 4-5 WEEKS 1,000-50,000 5-6 WEEKS 10,000-100,000 6-8 WEEKS 15,000-200,000 8-12 WEEKS 10,000-100,000 Performed By: #### 1 9991819, 6161666, 7969348, 6993391, 7564159, 5602044, 24029247, 1293201 #### [facility] [address] [place] [address] Progesteroneon 09-11-2019 Progesterone [Mass/Vol] 26.60 ng/mL [facility] Comment on above: Result Comment: REFE RENCE RANGE Males 0.14-2.06 ng/mL Non- Females Follicular 0.10-0.60 ng/mL Luteal 3.00-17.5 ng/mL Midluteal 3.30-18.6 ng/mL Post-Menopausal 0.10-0.40 ng/mL First Trimester 8.30-66.5 ng/mL Second Trimester 18.9-66.1 ng/mL Third Trimester 35.8-312.4 ng/mL Performed By: #### 1 7387732, 3353521, 6331944, 7763407, 5173504, 8260985, 87520128, 4502807 #### [facility] [address] [place] [address] TSHon 09-11-2019 TSH Qn 0.88 mcIU/mL Normal 0.34-5.60 [facility] Comment on above: Performed By: #### 1 7570637, 9021235, 8493067, 3850871, 1129770, 1900672, 70438260, 7918399 #### [facility] [address] [place] [address] Coding Summary.on 09-10-2019 Coding Summary. CODING DATE: 019 FINAL [facility] STATUS: Home (Routine DC) PAYOR: Commercial Insurance ADMIT DX: REASON FOR VISIT DX: E28.9 Ovarian dysfunction, unspecified FINAL DX: PRINCIPAL: E28.9 Ovarian dysfunction, unspecified SECONDARY: PROCEDURES DOCTOR NAME DATE NOTE: The code number assigned matches the documented diagnosis and / or procedure in the patient's chart. However, the narrative phrase printed from the coding software may appear abbreviated, or result in slightly different terminology. Coded By: Yolie Putnam Date Saved: 09/10/2019 02:11 pm Normal [facility] Lipase Levelon 09-08-2019 Lipase [Catalytic activity/Vol] U/L High 13-58 [facility] Comment on above: Result Comment: conf irmed by dilution Performed By: #### 1 8888544, 0873053, 4768228, 9832630, 6849360, 7419026, 00530281, 2232798 #### [facility] [address] [place] [address] BhCG Quanton 09-07-2019 HCG.beta subunit Qn 90 m[IU]/mL High 1-3 [facility] Comment on above: Result Comment: GEST ATIONAL AGE HCG RANGE (mIU/mL) NON- <1-3 0.2-1 WEEKS 5-50 1-2 WEEKS 50-500 2-3 WEEKS 100-5,000 3-4 WEEKS 500-10,000 4-5 WEEKS 1,000-50,000 5-6 WEEKS 10,000-100,000 6-8 WEEKS 15,000-200,000 8-12 WEEKS 10,000-100,000 Performed By: #### 1 1006478, 6878991, 4990811, 3757712, 7805590, 8706918, 09799784, 7358250 #### [facility] [address] [place] [address] Progesteroneon 09-07-2019 Progesterone [Mass/Vol] 23.40 ng/mL [facility] Comment on above: Result Comment: REFE RENCE RANGE Males 0.14-2.06 ng/mL Non- Females Follicular 0.10-0.60 ng/mL Luteal 3.00-17.5 ng/mL Midluteal 3.30-18.6 ng/mL Post-Menopausal 0.10-0.40 ng/mL First Trimester 8.30-66.5 ng/mL Second Trimester 18.9-66.1 ng/mL Third Trimester 35.8-312.4 ng/mL Performed By: #### 1 3683478, 7300383, 0827219, 7146326, 1766995, 5133232, 86985974, 6194862 #### [facility] [address] [place] [address] Coding Summary.on 09-05-2019 Coding Summary. CODING DATE: 019 [facility] STATUS: Home (Routine DC) PAYOR: Commercial Insurance ADMIT DX: REASON FOR VISIT DX: E28.9 Ovarian dysfunction, unspecified FINAL DX: PRINCIPAL: E28.9 Ovarian dysfunction, unspecified SECONDARY: PROCEDURES DOCTOR NAME DATE NOTE: The code number assigned matches the documented diagnosis and / or procedure in the patient's chart. However, the narrative phrase printed from the coding software may appear abbreviated, or result in slightly different terminology. Coded By: Teri Hill CphT Date Saved: 09/05/2019 01:07 pm Normal [facility] Estradiolon 09-05-2019 E2 [Mass/Vol] 799.5 pg/mL [facility] Comment on above: Result Comment: Adul t Female: Follicular phase 12.5 - 166.0 Ovulation phase 85.8 - 498.0 Luteal phase 43.8 - 211.0 Postmenopausal <6.0 - 54.7 1st trimester 215.0 - >4300.0 Girls (1-10 years) 6.0 - 27.0 Mal ECLIA methodology Performed at: [facility] [id number] PhD Subhash Coronel Performed By: #### 1 3210105, 5515976, 2179619, 2756899, 6298451, 3266126, 14474002, 3283487 #### [facility] [address] [place] [address] Progesteroneon 09-04-2019 Progesterone [Mass/Vol] 39.30 ng/mL [facility] Comment on above: Result Comment: REFE RENCE RANGE Males 0.14-2.06 ng/mL Non- Females Follicular 0.10-0.60 ng/mL Luteal 3.00-17.5 ng/mL Midluteal 3.30-18.6 ng/mL Post-Menopausal 0.10-0.40 ng/mL First Trimester 8.30-66.5 ng/mL Second Trimester 18.9-66.1 ng/mL Third Trimester 35.8-312.4 ng/mL Performed By: #### 1 4302660, 2195677, 2094005, 5057632, 6840916, 7091061, 48900995, 3473106 #### [facility] [address] [place] [address] TSHon 09-04-2019 TSH Qn 0.83 mcIU/mL Normal 0.34-5.60 [facility] Comment on above: Performed By: #### 1 8406288, 2932482, 0424980, 4486872, 4287528, 9515594, 33613860, 8056095 #### [facility] [address] [place] [address] Coding Summary.on 08-23-2019 Coding Summary. CODING DATE: 019 FINAL [facility] STATUS: Home (Routine DC) PAYOR: Commercial Insurance ADMIT DX: REASON FOR VISIT DX: E28.9 Ovarian dysfunction, unspecified FINAL DX: PRINCIPAL: E28.9 Ovarian dysfunction, unspecified SECONDARY: PROCEDURES DOCTOR NAME DATE NOTE: The code number assigned matches the documented diagnosis and / or procedure in the patient's chart. However, the narrative phrase printed from the coding software may appear abbreviated, or result in slightly different terminology. Coded By: Teri Hill CphT Date Saved: 08/23/2019 01:15 pm Normal [facility] Estradiolon 08-23-2019 E2 [Mass/Vol] 903.5 pg/mL [facility] Comment on above: Result Comment: Adul t Female: Follicular phase 12.5 - 166.0 Ovulation phase 85.8 - 498.0 Luteal phase 43.8 - 211.0 Postmenopausal <6.0 - 54.7 1st trimester 215.0 - >4300.0 Girls (1-10 years) 6.0 - 27.0 Mal ECLIA methodology Performed at: [facility] [id number] PhD Subhash Coronel Performed By: #### 1 7310002, 7147085, 0778785, 1927327, 1324202, 9561117, 46691248, 1901785 #### [facility] [address] [place] [address] LHon 08-23-2019 Lutropin Qn 7.7 m[IU]/mL [facility] Comment on above: Result Comment: Adul t Female: Follicular phase 2.4 - 12.6 Ovulation phase 14.0 - 95.6 Luteal phase 1.0 - 11.4 Postmenopausal 7.7 - 58.5 Performed at: [facility] [id number] PhD Subhash Coronel Performed By: #### 1 1613017, 5869738, 9960796, 2110769, 2934354, 5216728, 68801459, 0576088 #### [facility] [address] [place] [address] Progesteroneon 08-22-2019 Progesterone [Mass/Vol] ng/mL [facility] Comment on above: Result Comment: REFE RENCE RANGE Males 0.14-2.06 ng/mL Non- Females Follicular 0.10-0.60 ng/mL Luteal 3.00-17.5 ng/mL Midluteal 3.30-18.6 ng/mL Post-Menopausal 0.10-0.40 ng/mL First Trimester 8.30-66.5 ng/mL Second Trimester 18.9-66.1 ng/mL Third Trimester 35.8-312.4 ng/mL Performed By: #### 1 6733809, 9270542, 9328466, 1561355, 6511575, 5321280, 45985421, 3536563 #### [facility] [address] [place] [address] Coding Summary.on 08-16-2019 Coding Summary. CODING DATE: 019 FINAL [facility] STATUS: Home (Routine DC) PAYOR: Commercial Insurance ADMIT DX: REASON FOR VISIT DX: E28.9 Ovarian dysfunction, unspecified FINAL DX: PRINCIPAL: E28.9 Ovarian dysfunction, unspecified SECONDARY: PROCEDURES DOCTOR NAME DATE NOTE: The code number assigned matches the documented diagnosis and / or procedure in the patient's chart. However, the narrative phrase printed from the coding software may appear abbreviated, or result in slightly different terminology. Coded By: Sergio De SantiagoTeri Date Saved: 08/16/2019 02:00 pm Normal [facility] Estradiolon 08-16-2019 E2 [Mass/Vol] 52.3 pg/mL [facility] Comment on above: Result Comment: Adul t Female: Follicular phase 12.5 - 166.0 Ovulation phase 85.8 - 498.0 Luteal phase 43.8 - 211.0 Postmenopausal <6.0 - 54.7 1st trimester 215.0 - >4300.0 Girls (1-10 years) 6.0 - 27.0 Mal ECLIA methodology Performed at: [address] [id number] PhD Subhash Coronel Performed By: #### 1 2139127, 3880941, 0747751, 1953711, 9530981, 4473493, 98017404, 1080082 #### [facility] [address] [place] [address] FSH and LHon 08-16-2019 Follitropin Qn 7.9 m[IU]/mL [facility] Comment on above: Result Comment: [facility] t Female: Follicular phase 3.5 - 12.5 Ovulation phase 4.7 - 21.5 Luteal phase 1.7 - 7.7 Postmenopausal 25.8 - 134.8 Performed at: [address] [id number] PhD Subhash Coronel Performed By: #### 1 9196668, 7373581, 2010579, 6977554, 1791922, 5174923, 51542584, 9630672 #### [facility] [address] [place] [address] Lutropin Qn 9.8 m[IU]/mL [facility] Comment on above: Result Comment: [facility] t Female: Follicular phase 2.4 - 12.6 Ovulation phase 14.0 - 95.6 Luteal phase 1.0 - 11.4 Postmenopausal 7.7 - 58.5 Performed By: #### 1 5269868, 0654624, 6729715, 6447861, 5195992, 9228431, 76070007, 2555929 #### [facility] [address] [place] [address] BhCG Quanton 08-15-2019 HCG.beta subunit Qn m[IU]/mL Normal 1-3 [facility] Comment on above: Result Comment: GEST ATIONAL AGE HCG RANGE (mIU/mL) NON- <1-3 0.2-1 WEEKS 5-50 1-2 WEEKS 50-500 2-3 WEEKS 100-5,000 3-4 WEEKS 500-10,000 4-5 WEEKS 1,000-50,000 5-6 WEEKS 10,000-100,000 6-8 WEEKS 15,000-200,000 8-12 WEEKS 10,000-100,000 Performed By: #### 1 3334978, 7793255, 9981792, 8837518, 9766791, 0486493, 93163076, 4585824 #### [facility] [address] [place] [address] Progesteroneon 08-15-2019 Progesterone [Mass/Vol] 0.20 ng/mL [facility] Comment on above: Result Comment: REFE RENCE RANGE Males 0.14-2.06 ng/mL Non- Females Follicular 0.10-0.60 ng/mL Luteal 3.00-17.5 ng/mL Midluteal 3.30-18.6 ng/mL Post-Menopausal 0.10-0.40 ng/mL First Trimester 8.30-66.5 ng/mL Second Trimester 18.9-66.1 ng/mL Third Trimester 35.8-312.4 ng/mL Performed By: #### 1 3564064, 3756904, 4820642, 6190300, 7936196, 1860781, 05876476, 9259202 #### [facility] [address] [place] [address] TSHon 08-15-2019 TSH Qn 1.05 mcIU/mL Normal 0.34-5.60 [facility] Comment on above: Performed By: #### 1 3135066, 9641608, 7545214, 5338372, 3291219, 7477795, 53700320, 7418407 #### [facility] [address] [place] [address] Coding Summary.on 07-31-2019 Coding Summary. 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 However, the narrative phrase printed from the coding software may appear abbreviated, or result in slightly different terminology. Coded By: Teri Hill CphT Date Saved: 07/31/2019 10:30 am Normal [facility] ED Note-Physicianon 07-28-20 ED Note-Physician Basic Information Time Seen: Oswaldo Fischer PA-C 07/17/2019 21:52 Chief Complaint pt has complaints of abdominal pain nausea and vomiting since 2am, states lab work done at [place] today liver enzymes were elevated history of pancreatitis History of Present Illness Patient is a 33-year-old female presents emergency room for epigastric and right upper quadrant pain, patient states she does have a history of pancreatitis and gallbladder stones, patient states this is a third time she's had these symptoms. Patient states this episode started at 2:00 this morning and the nausea has been throughout the day, but that the symptoms might side, but continues with the symptoms. Patient states she signs of gallbladder, patient states she also has her appendix and. Patient states she has remote history of gastric sleeve, has lost 140 pounds. Patient states, pain sharp in nature is not radiating to her back or to her lower abdominal or to left upper quadrant. Patient states she has no flank pain or lumbar back pain. Patient states she's not having any shoulder pain. Patient states she has a decreased appetite, had lunch she only had 2 teaspoons of agitated is, was unable to keep down, has had decreased fluid intake. Patient denies having any fevers, chills, hematemesis, abdominal pain, flank pain, diarrhea, constipation, but he stools, chest pain, shortness of breath, difficulty swallowing, acute visual changes, dizziness, headaches, or weakness. Review of Systems All organ systems reviewed. Pertinent positive and negative findings were mentioned in the HPI . Physical Exam Vitals & Measurements T: 36.7 ?C (Oral) HR: 80(Monitored) RR: 18 BP: 128/74 SpO2: 100% HT: 183 cm WT: 108.1 kg BMI: 32.28 General: alert, mild distress, no paleness or diaphoresis, pleasant and cooperative, good eye contact, answers questions appropriately and in complete sentences, follows commands appropriately. Skin: warm, dry, stretch groves, remaining skin exam within normal limits, no redness, swelling, abrasions, rashes, or ecchymosis. Head: no trauma, normocephalic Neck: Trachea midline, no adenopathy, no tenderness Eye: normal conjunctiva, sclera clear ENMT: TM's clear, oral mucosa moist, no pharyngeal erythema or exudate Cardiovascular: regular rate and rhythm, normal peripheral perfusion Respiratory: Lungs CTA, respirations non labored, no decreased breath sounds, no retractions. Chest wall: no deformity. No chest wall tenderness Gastrointestinal: soft, non distended, right upper quadrant epigastric tenderness, no rebound or guarding, no radiating pain, bowel sounds, no left or right CVA tenderness. Back: No tenderness, Normal ROM, Normal alignment. No cervical, thoracic, or lumbar back pain. Extremities: no deformity, no trauma. Patient is able to move all 4 extremities equally without any pain or weakness. Patient is neurologically intact. Neurological: oriented x 4, LOC appropriate for age, CN II-XII intact, motor strength equal & normal bilaterally, sensation equal & normal bilaterally, speech normal Psychiatric: cooperative, affect appropriate for age, normal judgement, normal psychiatric thoughts. Medical Decision Making Vital signs reviewed, BP 159/101, repeat BP 145/91 after IV fluids. Nursing notes reviewed. Medical record reviewed. Upper quadrant abdominal pain workup: Ultrasound gallbladder for gallbladder or hepatic disorders, IV fluids, labs, urine, urine , IV morphine 4 mg, and IV Zofran 4 mg. Reassess patient morphine Zofran, states helped with the pain and nausea. Discussed with patient lab findings of white blood cell count 13.0, BUN/creatinine ratio 26, ALT 144, AST 179, total bilirubin 3.6, direct bilirubin 2.1, indirect bilirubin 1.5, lipase >396, urinalysis findings of dark urine, trace protein, 3+ ketones, 3+ bilirubin, as well as, trace leukocytes, +1 bacteria. Reassess patient to return if imaging, this she has more pain, but nausea is better, agrees to IV Nubain 5 mg. No acute abdomen with right upper quadrant tenderness, no Amador signs. Discussed with patient ultrasound findings read by stat rad: The gallbladder is distended with multiple layering intraluminal stones. Mild gallbladder wall thickening measuring 4 mm. No dorothy-cholecystectomy free fluid. Negative Amador sign. The lack of a positive Amador's sign suggesting acute cholecystitis. If there is need for further documentation consider a HIDA scan. Dilated common bile duct measuring 9 mm. No visualization obstructing stone . Dr. Bergeron reassess patient and discussed possible admission for acute pancreatitis and common bile duct obstruction, patient agrees with the plan. Dr. Bergeron discussed with Dr. Goel, trauma surgeon director transportation, and Dr. Alvarado, hospitalist director transportation, about patient, history, labs, and imaging findings consistent acute pancreatitis and common bile duct obstruction, patient be admitted to hospitalist services, and consult with Dr. Reddy, GI doctor on-call for possible HAND UMBRELLA TIPPER in the morning. Dr. Alvarado admitted patient to services, patient agree with plan. Patient admitted in stable condition. Assessment/Plan 1. Acute pancreatitis without necrosis or infection, unspecified 2. Common bile duct obstruction Orders: morphine, 4 mg = 2 mL, Injection, IV Push, Once, Stop date 07/17/19 22:02:00 EDT, STAT, Start date 07/17/19 22:02:00 EDT nalbuphine, 5 mg = 0.5 mL, Injection, IV Push, Once PRN Pain, STAT, Start date 07/17/19 23:49:00 EDT ondansetron, 4 mg = 2 mL, Injection, IV Push, Once, Stop date 07/17/19 22:02:00 EDT, STAT, Start date 07/17/19 22:02:00 EDT Sodium Chloride 0.9% intravenous solution 1,000 mL, 1,000 mL, IV, 1,000 mL/hr, for 1 hour(s), Stop date 07/17/19 23:01:00 EDT, STAT, Start date 07/17/19 22:02:00 EDT, 1 hour(s), Total volume (mL): 1,000, Bolus Dose: 1,000 mL Automated Diff Basic Metabolic Panel CBC w/ Auto Diff eGFR Hepatic Function Panel Lactic Acid Lipase Level NPO Diet PT & PTT U Beta Hcg Qual UA With Cult Reflex Urine Dipstick POC US Gallbladder Medications Administered Given NS 1000 ml Bolus 1,000 mL, 1000 mL, IV morphine 2 mg/mL Inj, 4 mg, IV Push nalbuphine 10 mg/mL Inj 1 mL, 5 mg, IV Push Zofran 4 mg/2 mL Injection, 4 mg, IV Push Disposition Plan Discharge Prescription List Prescriptions No active prescription medications Follow-up No qualifying data available Attestation Patient was treated and evaluated by the Physician General Assembler. The attending physician was Dr. Bergeron in the Emergency Department at all times and supervised care. The case was discussed with the attending physician and diagnostics were reviewed as needed. Problem List/Past Medical History Ongoing Pancreatitis Historical No qualifying data Procedure/Surgical History DIAGNOSTIC LAPAROSCOPY , DIAGNOSTIC HYSTEROSCOPY (03/31/2019), microdissectomy l4-6 (12/2016), gastric sleeve (2016). Medications Inpatient No active inpatient medications Home HYDROcodone 10 mg oral capsule, extended release, Oral, q12hr levothyroxine 50 mcg (0.05 mg) Tab, 50 microgram= 1 tab(s), Oral, Daily loratadine 10 mg Tab, 10 mg= 1 tab(s), Oral, Daily Multivitamins and Minerals, 1 tab, Oral, Daily naltrexone, See Instructions ranitidine 150 mg Tab, 150 mg= 1 tab(s), Oral, BID Vitamin D3 5000 intl units oral capsule, 5000 International_Unit= 1 cap(s), Oral, Daily Allergies Pollen (Hayfever) Levaquin (Liver damage) Social History Alcohol - Denies Alcohol Use, 03/27/2019 Current, 07/17/2019 Household alcohol concerns: No., 04/21/2019 Substance Abuse - Denies Substance Abuse, 03/27/2019 IV drug use: No. Household substance abuse concerns: No., 04/21/2019 Tobacco - Denies Tobacco Use, 03/27/2019 Never (less than 100 in lifetime) Tobacco Use:. Never Smokeless Tobacco Use:. Household tobacco concerns: No., 06/12/2019 Family History Diabetes mellitus type 2: Mother. Thyroid cancer: Mother and Sister. Lab Results WBC: 13 E9/L High (07/17/19 22:12:00 EDT) RBC: 4.4 E12/L (07/17/19 22:12:00 EDT) Hgb: 13.2 gm/dL (07/17/19 22:12:00 EDT) Hct: 38.9 % (07/17/19 22:12:00 EDT) MCV: 88.1 fL (07/17/19 22:12:00 EDT) MCH: 30 pg (07/17/19 22:12:00 EDT) MCHC: 34 gm/dL (07/17/19 22:12:00 EDT) RDW: 13.2 % (07/17/19 22:12:00 EDT) Platelet: 253 E9/L (07/17/19 22:12:00 EDT) MPV: 8.3 fL (07/17/19 22:12:00 EDT) Neutro Auto: 87.2 % High (07/17/19 22:12:00 EDT) Lymph Auto: 6.4 % Low (07/17/19 22:12:00 EDT) Man[place]e Auto: 5.5 % (07/17/19 22:12:00 EDT) Eos Auto: 0.6 % (07/17/19 22:12:00 EDT) Basophil Auto: 0.3 % (07/17/19 22:12:00 EDT) Neutro Absolute: 11.3 E9/L High (07/17/19 22:12:00 EDT) Lymph Absolute: 0.8 E9/L Low (07/17/19 22:12:00 EDT) Man[place]e Absolute: 0.7 E9/L (07/17/19 22:12:00 EDT) Eos Absolute: 0.1 E9/L (07/17/19 22:12:00 EDT) Basophil Absolute: 0 E9/L (07/17/19 22:12:00 EDT) PT: 11.9 second(s) (07/17/19 22:12:00 EDT) INR: 1 (07/17/19 22:12:00 EDT) PTT: 28.1 second(s) (07/17/19 22:12:00 EDT) Glucose Lvl: 107 mg/dL (07/17/19 22:12:00 EDT) BUN: 13 mg/dL (07/17/19 22:12:00 EDT) Creatinine: 0.5 mg/dL (07/17/19 22:12:00 EDT) eGFR: >60 (07/17/19 22:12:00 EDT) eGFR AA: >60 (07/17/19 22:12:00 EDT) BUN/Creat Ratio: 26 High (07/17/19 22:12:00 EDT) Sodium Lvl: 140 mmol/L (07/17/19 22:12:00 EDT) Potassium Lvl: 3.7 mmol/L (07/17/19 22:12:00 EDT) Chloride: 105 mmol/L (07/17/19 22:12:00 EDT) CO2: 26 mmol/L (07/17/19 22:12:00 EDT) AGAP: 13 mEq/L (07/17/19 22:12:00 EDT) Calcium Lvl: 9.3 mg/dL (07/17/19 22:12:00 EDT) Alk Phos: 69 Int._Unit/L (07/17/19 22:12:00 EDT) ALT: 144 Int._Unit/L High (07/17/19 22:12:00 EDT) AST: 179 Int._Unit/L High (07/17/19 22:12:00 EDT) Total Protein: 6.5 gm/dL (07/17/19 22:12:00 EDT) Albumin Lvl: 3.8 gm/dL (07/17/19 22:12:00 EDT) Globulin: 2.7 gm/dL (07/17/19 22:12:00 EDT) A/G Ratio: 1.4 (07/17/19 22:12:00 EDT) Bili Total: 3.6 mg/dL High (07/17/19 22:12:00 EDT) Bili Direct: 2.1 mg/dL High (07/17/19 22:12:00 EDT) Bili Indirect: 1.5 mg/dL High (07/17/19 22:12:00 EDT) Lipase Lvl: >396 High (07/17/19 22:12:00 EDT) Lactic Acid Lvl: 10.1 mg/dL (07/17/19 22:12:00 EDT) UA Spec Desc: Clean Catch (07/18/19 00:01:00 EDT) UA Color: Dark Yellow3 Abnormal (07/18/19 00:01:00 EDT) UA Clarity: Slightly Cloudy3 Abnormal (07/18/19 00:01:00 EDT) UA Spec Grav: >=1.030 (07/18/19 00:01:00 EDT) UA pH: 6.0 (07/18/19 00:01:00 EDT) UA Protein: Trace2 Abnormal (07/18/19 00:01:00 EDT) UA Glucose: NEGATIVE1 (07/18/19 00:01:00 EDT) UA Ketones: 3+ Abnormal (07/18/19 00:01:00 EDT) UA Bili: 3+ Abnormal (07/18/19 00:01:00 EDT) UA Blood: Trace2 Abnormal (07/18/19 00:01:00 EDT) UA Nitrite: NEGATIVE1 (07/18/19 00:01:00 EDT) UA Urobilinogen: 2.0 Abnormal (07/18/19 00:01:00 EDT) UA Leuk Est: Trace2 Abnormal (07/18/19 00:01:00 EDT) UA RBC: 4-20 (07/18/19 00:01:00 EDT) UA Squam Epithelial: 5-8 (07/18/19 00:01:00 EDT) UA WBC: 0-5 (07/18/19 00:01:00 EDT) UA Bacteria: 1+ Abnormal (07/18/19 00:01:00 EDT) UA Hyal Cast: 0-3 (07/18/19 00:01:00 EDT) UA Amorph Daisy: Present (07/18/19 00:01:00 EDT) UA Mucous: 3+ (07/18/19 00:01:00 EDT) U beta hCG Ql: Negative (07/18/19 00:01:00 EDT) Diagnostic Results No qualifying data available. [facility] Comment on above: Result Comment: Elec tronically Signed By: Oswaldo Fischer PA-C\.br\Date and Time Signed: 07/18/19 01:07 EDT\.br\Electronically Co-Signed By: Mehran Bergeron MD\.br\Date and Time Co-Signed: 07/28/19 08:12 EDT Progress Note-Physicianon Progress Note-Physician Chief Complaint Follow up from OR History of Present Illness SUKHDEV SCHWARTZ is a 33 Years Female who presented to [facility] on 07/18/2019 with gallstone pancreatitis. She underwent uneventful lap aidee with my partner, Dr. Javan Goel, on 07/19/2019 and was discharged to home the next day. She's now here for routine post-op follow-up. She reports that the skin of her periumbilical incision has partially dehisced - she's been covering it with a bandaid - but otherwise no complaints. Only took opioid pain medication for several days at home and is no longer taking them. 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 Still waiting for [facility] paperwork which she'll fax to us. Review of Systems PHQ Score Initial Depression Screen Score: 0 Physical Exam Vitals & Measurements T: 36.5 ?C (Temporal Artery) HR: 79(Peripheral) RR: 18 BP: 136/99 SpO2: 98% HT: 182.8 cm WT: 106.59 kg BMI: 31.9 Sitting in chair NAD AAO x4 RRR CTAB Abd soft, NT/ND, subcostal/epigastric incisions healed, periumbilical incision epidermis partially dehisced with small amount of fibrin but no discharge, no pus, no erythema, no induration Assessment/Plan SUKHDEV SCHWARTZ is a 33 Years Female who presented to [facility] on 07/18/2019 with gallstone pancreatitis and is now POD#9 s/p lap aidee. She is recovering well. She can keep covering the periumbilical incision with Bandaid until it heals. I reviewed path report with her. She can follow-up with us PRN. We will fill out [facility] paperwork for her when we receive it. Follow-up No qualifying data available Problem List/Past Medical History Ongoing Pancreatitis Historical No qualifying data Procedure/Surgical History Cholecystectomy (07/19/2019), DIAGNOSTIC LAPAROSCOPY , DIAGNOSTIC HYSTEROSCOPY (03/31/2019), microdissectomy l4-6 (12/2016), gastric sleeve (2016). Medications levothyroxine 50 mcg (0.05 mg) Tab, 50 microgram= 1 tab(s), Oral, Daily loratadine 10 mg Tab, 10 mg= 1 tab(s), Oral, Daily Multivitamins and Minerals, 1 tab, Oral, Daily naltrexone, See Instructions, Not taking: not taking, interacts with pain meds ranitidine 150 mg Tab, 150 mg= 1 tab(s), Oral, BID Tylenol Extra Strength 500 mg oral tablet, 500 mg= 1 tab(s), Oral, q4hr, PRN Vitamin D3 5000 intl units oral capsule, 5000 International_Unit= 1 cap(s), Oral, Daily Allergies Pollen (Hayfever) Levaquin (Liver damage) Social History Alcohol - Denies Alcohol Use, 03/27/2019 Current, 07/17/2019 Household alcohol concerns: No., 04/21/2019 Substance Abuse - Denies Substance Abuse, 03/27/2019 IV drug use: No. Household substance abuse concerns: No., 04/21/2019 Tobacco - Denies Tobacco Use, 03/27/2019 Never (less than 100 in lifetime) Tobacco Use:., 07/28/2019 Never (less than 100 in lifetime) Tobacco Use:. Never Smokeless Tobacco Use:. Household tobacco concerns: No., 06/12/2019 Family History Diabetes mellitus type 2: Mother. Thyroid cancer: Mother and Sister. Immunizations Vaccine Date Status Comments influenza virus vaccine, inactivated - Not Given Patient Refuses Pt states will get from place of employment Lab Results 07/19/2019 surgical pathology: Final Diagnosis GALLBLADDER, CHOLECYSTECTOMY: ? CHOLELITHIASIS. ? REACTIVE LYMPH NODE WITH FOLLICULAR HYPERPLASIA. [facility] Comment on above: Result Comment: Elec tronically Signed By: Garrett GUSTAFSON, Marina Fields\.br\Date and Time Signed: 07/28/19 09:13 EDT Coding Summary.on 07-24-2019 Coding Summary. 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 w/o CC/NURSING HOME Low Trim 0 High Trim 999 [id number] APR-DRG CHOLECYSTECTOMY Severity of Illness Moderate Risk of Mortality Minor ADMIT DX: R10.13 Epigastric pain REASON FOR VISIT DX: FINAL DX: PRINCIPAL: K85.10 Y Biliary acute pancreatitis without necrosis or infection SECONDARY: E03.9 Y Hypothyroidism, unspecified E66.9 Y Obesity, unspecified Z98.84 1 Bariatric surgery status Z68.34 1 Body mass index (BMI) 34.0-34.9, adult PROCEDURES DOCTOR NAME DATE [id number] Resection of Gallbladder, Amando GUSTAFSON, Javan Stevens 07/19/2019 Percutaneous Endoscopic Approach [id number] Extirpation of Matter from Abhinav REDDY MD 07/18/2019 Common Bile Duct, Via Natural or Artificial Opening Endoscopic [id number] Fluoroscopy of Bile Ducts using Abhinav REDDY MD 07/18/2019 Low Osmolar Contrast NOTE: The code number assigned matches the documented diagnosis and / or procedure in the patient's chart. However, the narrative phrase printed from the coding software may appear abbreviated, or result in slightly different terminology. Revised Coded By: Kat Del Rosario Revised Date Saved: 07/24/2019 07:27 am [facility] Progress Note-Physicianon Progress Note-Physician Patient: SUKHDEV SCHWARTZ Age: 33 years Sex: Female : 1985 Associated Diagnoses: None Author: Davie Eaton Jr, DO Preoperative Information Anesthesia Preop Information NPO 8 HOURS EXCEPT GI PREP AT LEAST 4 HOURS PRIOR TO PROCEDURE Anesthesia history: Patient history: No prior anesthesia problems. Re-evaluation prior to induction: Initial evaluation reviewed: No significant change. Anesthesia results Review of Systems Cardiovascular: Negative. Respiratory: Negative. Health Status Allergies: Allergic Reactions (Selected) Severe Pollen- Hayfever. Severity Not Documented Levaquin- Liver damage. Current medications: (Selected) Inpatient Medications Ordered Dilaudid 1 mg/mL injectable solution: 0.5 mg = 0.5 mL, Injection, IV Push, q4hr PRN Pain, Routine, Start date 07/18/19 8:47:00 EDT NS 1000 mL Soln-IV 1,000 mL: 1,000 mL, IV, 150 mL/hr, Routine, Start date 07/18/19 2:24:00 EDT, 6.7 hour(s), Total volume (mL): 1,000 Phenergan 25 mg/mL Injection: 12.5 mg = 0.5 mL, Injection, IV Push, q6hr PRN Nausea, Routine, Start date 07/18/19 2:24:00 EDT Zofran 4 mg/2 mL Injection: 4 mg = 2 mL, Injection, IV Push, q6hr PRN Nausea, Routine, Start date 07/18/19 2:24:00 EDT hydrALAZINE 20 mg/mL Inj: 10 mg = 0.5 mL, Injection, IV Push, q6hr PRN Other (see comment), Routine, Start date 07/18/19 2:24:00 EDT influenza virus vaccine IM Sherrie FT Rule: 0.5 mL, Susp-Inj, IntraMuscular, Once PRN Other (see comment), Routine, Start date 07/18/19 1:13:44 EDT Documented Medications Documented Multivitamins and Minerals: 1 tab, Oral, Daily, Refill(s) 0, Prophylaxis Vitamin D3 5000 intl units oral capsule: 5,000 International_Unit = 1 cap(s), Oral, Daily, with food, # 100 cap(s), Refills(s) 0, Prophylaxis levothyroxine 50 mcg (0.05 mg) Tab: 50 microgram = 1 tab(s), Oral, Daily, Refills(s) 0, Thyroid loratadine 10 mg Tab: 10 mg = 1 tab(s), Oral, Daily, Refills(s) 0, Allergy symptoms naltrexone: See Instructions, 4.5 mg oral daily, Refills(s) 0 ranitidine 150 mg Tab: 150 mg = 1 tab(s), Oral, BID, Refills(s) 0, Control of stomach acid, Home Medications (6) Active levothyroxine 50 mcg (0.05 mg) Tab 50 microgram = 1 tab(s), Oral, Daily loratadine 10 mg Tab 10 mg = 1 tab(s), Oral, Daily Multivitamins and Minerals 1 tab, Oral, Daily naltrexone See Instructions ranitidine 150 mg Tab 150 mg = 1 tab(s), Oral, BID Vitamin D3 5000 intl units oral capsule 5,000 International_Unit = 1 cap(s), Oral, Daily Problem list: All Problems Ovarian dysfunction / SNOMED CT 87260447 / Confirmed Hypothyroidism / SNOMED CT 59415176 / Confirmed Pancreatitis / SNOMED CT 199752086 / Confirmed Histories Past Medical History: No active or resolved past medical history items have been selected or recorded. Social History Social & Psychosocial Habits Alcohol 03/27/2019 Risk Assessment: Denies Alcohol Use 04/21/2019 Concerns about alcohol use in household: No Comment: The patient denies any alcohol use, tobacco use, or substance abuse. - 04/21/2019 01:38 - Jeanette Parks RN 07/17/2019 Use: Current Comment: Denies - 07/17/2019 21:14 - Kiel GOODRICH, Yaneli Turcios Substance Abuse 03/27/2019 Risk Assessment: Denies Substance Abuse 04/21/2019 IV drug use: No Concerns about substance abuse in household: No Comment: Denies - 07/17/2019 21:14 - Yaneli Dyson RN Tobacco 03/27/2019 Risk Assessment: Denies Tobacco Use 06/12/2019 Tobacco Use: Never (less than 100 in l Smokeless tobacco use: Never Concerns about tobacco use in household: No Comment: Denies - 07/17/2019 21:14 - Kiel GOODRICH, Yaneli Frias Physical Examination Airway: Mallampati classification: II (soft palate, fauces, uvula visible). Respiratory: Lungs are clear to auscultation. Cardiovascular: Regular rhythm. Neurologic: Alert, Oriented. Plan [place] [employer]esthesiologists (ASA) physical status classification: Class II. Anesthetic Preoperative Plan Anesthesia: General. . Anesthetic plan, risks, benefits, and alternatives discussed with the patient and/or family. Communication: face to face with (patient 5 minutes, Patient educated on smoking cesstation). [facility] Comment on above: Result Comment: Elec tronically Signed By: Angelito Knowles DO, Davie Perry\.br\Date and Time Signed: 07/21/19 12:44 EDT Operative Reporton 10-03-201 9 Operative Report Date of Surgery: 07/19/2019 SURGEON: Javan Goel MD PREOPERATIVE DIAGNOSIS: Gallstone pancreatitis POSTOPERATIVE DIAGNOSIS: Gallstone pancreatitis OPERATION: Laparoscopic cholecystectomy ANESTHESIA: General ANESTHESIOLOGIST: Tho Garvin Jr., D.O. INDICATIONS: The patient is a 33 year old female who was admitted on 07/18/2019 due to epigastric pain. She was found to have elevated lipase and liver function tests, and an ultrasound that showed stone/sludge and common bile duct of 9 mm. Later that morning on 07/18/2019 she underwent endoscopic retrograde cholangiopancreatography with stone extraction. Due to her recurrent gallstone pancreatitis I recommended getting a cholecystectomy performed prior to her discharge. I explained the risks and benefits of a laparoscopic cholecystectomy in detail. The patient consented for the procedure. PROCEDURE: The patient was properly identified, brought to the Operative Suite and placed in a supine position. General anesthesia was administered. The patient was then intubated successfully by Anesthesia. Cueto catheter was placed per Anesthesia request. Abdomen was then prepped and draped in the usual sterile fashion. She was also placed on sequential compression devices and received a Heparin injection at 9:00 a.m. She received perioperative antibiotics just prior to the incision per protocol. The abdomen was then prepped and draped in the usual sterile fashion. We started by making a supraumbilical vertical incision approximately 2 cm using a 15 blade scalpel. This was deepened through the subcutaneous tissue using electrocautery and blunt dissection. We identified the fascia which was then grasped between two Kochers and elevated. I incised the fascia using a scalpel until I reached the peritoneum, which was then bluntly entered using a hemostat. I confirmed visually that I entered the abdomen. We then placed 0 Vicryl stay sutures on both sides of the fascia. Sharona cannula was then inserted and abdomen was insufflated to 15 mm. of Hg., which the patient tolerated. We therefore started by taking a look around. There was some murky fluid around the liver. No injury to the bowel was noted when looking directly down with the camera. We then placed her in reverse Trendelenburg and left side down. We placed secondary trocars in the epigastric region as well as two in the right subcostal region, one in the midclavicular and one in the anterior axillary line. All were placed under direct visualization. Once we did this we then grasped the gallbladder with the lateral ports and retracted the gallbladder over the liver. We also grasped the infundibulum and pulled it lateral into the right lower quadrant. This exposed the Calot's triangle. We dissected off the fat from the gallbladder and the cystic duct using [place] dissector. We carefully dissected circumferentially the cystic duct and cystic artery from the anterior side and the posterior side of the gallbladder and then we dissected bluntly the cystic plate. Once we were confident that the two structures that we dissected were the cystic artery and cystic duct which were both going into the gallbladder directly and we had the cystic plate exposed, we got our safe window in critical view. We then placed two clips on the cystic duct and two clips on the cystic artery on the distal end and then the proximal end towards the gallbladder. We placed a single clip on both. We then excised the cystic duct and artery using endoscopic denise. Once this was done we then dissected the gallbladder off the liver bed using electrocautery. Once this was out we then placed the gallbladder in the endoscopic retrieval bag that was now placed through the umbilical port while we watched it through a 5 mm camera from the epigastric port. We took the gallbladder out through the umbilical port without any incident. We then went back through the umbilical port and a 10 mm camera to get a better view of the liver bed, noted no bleeding from the cystic artery or bile from the cystic duct stones. The clips were intact. We irrigated the liver bed as well as above the liver copiously. The patient was flattened and we irrigated again and suctioned out as much fluid as possible from the entire abdomen. Satisfied that there was no further bleeding or leaking of bile, we then removed our secondary trocars under direct visualization. We noted that the mid-clavicular subcostal one was bleeding. Therefore I used cautery from the epigastric port to control the port site bleeding, which stopped. We then removed the epigastric and desufflated some more, and no bleeding was noted from any of the trocar sites. We then desufflated completely, removed the camera and removed the trocar. We then closed the umbilical fascia with multiple [id number] 0 Vicryl sutures, then tied the stay sutures together. We then cleaned out the wounds with Saline, placed 20 cc of 2% Lidocaine with Epinephrine in all the trocar sites total and closed up the skin and all the port sites with 4-0 Monocryl in a subcuticular interrupted fashion. All instrumentation were accounted for at the beginning of the operation and all needles were accounted for at the beginning of the operation. General anesthesia was reversed, and the patient was extubated, Cueto catheter was removed. The patient was then taken to the Post-Anesthesia Care Unit in stable condition. PACKING: None COMPLICATIONS: None ESTIMATED BLOOD LOSS: Less than 5 cc SPECIMEN: Gallbladder Javan Goel MD aek Dictated: 07/19/2019 #[id number] Typed: 07/20/2019 #[id number] cc: Javan Goel MD Normal [facility] Comment on above: Result Comment: Elec tronically Signed By: Amando GUSTAFSON, Javan Stevens\.br\Date and Time Signed: 07/20/19 11:04 EDT Auto Diffon 07-19-2019 Basophils/100 WBC (Bld) 0.2 % Normal 0.0-2.0 [facility] Comment on above: Order Comment: Order Added by Discern Expert. Performed By: #### 1 [id number], 7021288, 0963196, 4669245, 1268998, 2054870, 84160198, 5822041 #### [facility] [address] [place] [address] Basophils/Leukocyte s Auto (Bld) [Pure # fraction] 0.0 E9/L Normal 0.0-0.2 [facility] Comment on above: Order Comment: Order Added by Discern Expert. Performed By: #### 1 [id number], 3912880, 2624405, 1098141, 0890937, 8182519, 11623623, 6839817 #### [facility] [address] [place] [address] Eosinophils/100 WBC (Bld) 1.1 % Normal 0.0-8.0 [facility] Comment on above: Order Comment: Order Added by Discern Expert. Performed By: #### 1 6518466, 9528748, 2150208, 9129452, 3972009, 7582067, 68402394, 4860073 #### [facility] [address] [place] [address] Eosinophils/Leukocy dariel Auto (Bld) [Pure # fraction] 0.1 E9/L Normal 0.0-0.5 [facility] Comment on above: Order Comment: Order Added by Discern Expert. Performed By: #### 1 1526178, 2363087, 3908772, 2646586, 1044042, 3236773, 88893717, 9049975 #### [facility] [address] [place] [address] Lymphocytes/100 WBC (Bld) 11.9 % Low 14.0-50.0 [facility] Comment on above: Order Comment: Order Added by Discern Expert. Performed By: #### 1 3044976, 0548691, 0798449, 4544313, 6567444, 8101740, 26232342, 4757053 #### [facility] [address] [place] [address] Lymphocytes/Leukocy dariel Auto (Bld) [Pure # fraction] 1.1 E9/L Normal 1.0-4.0 [facility] Comment on above: Order Comment: Order Added by Discern Expert. Performed By: #### 1 8605133, 8002734, 3713808, 7769748, 9865753, 4391332, 11991040, 2937895 #### [facility] [address] [place] [address] Monocytes/100 WBC (Bld) 5.8 % Normal 4.0-14.0 [facility] Comment on above: Order Comment: Order Added by Discern Expert. Performed By: #### 1 2482477, 8570397, 1297772, 6714403, 7067368, 2742838, 25124871, 7504571 #### [facility] [address] [place] [address] Monocytes/Leukocyte s Auto (Bld) [Pure # fraction] 0.5 E9/L Normal 0.2-1.0 [facility] Comment on above: Order Comment: Order Added by Discern Expert. Performed By: #### 1 3629728, 0502572, 4322652, 0677368, 9439741, 2310253, 98417128, 0215643 #### [facility] [address] [place] [address] Neutrophils/100 WBC (Bld) 81.0 % High 36.0-75.0 [facility] Comment on above: Order Comment: Order Added by Discern Expert. Performed By: #### 1 7550237, 1453132, 4342596, 7211317, 8337808, 3237886, 83091337, 4664904 #### [facility] [address] [place] [address] Neutrophils/Leukocy dariel Auto (Bld) [Pure # fraction] 7.3 E9/L Normal 2.0-7.5 [facility] Comment on above: Order Comment: Order Added by Discern Expert. Performed By: #### 1 1845084, 9164752, 9213402, 7617339, 9499325, 8230071, 51013171, 4626738 #### [facility] [address] [place] [address] CBC w/ Auto Diffon Erythrocyte distribution width (RBC) [Ratio] 13.6 % Normal 10.9-14.2 [facility] Comment on above: Performed By: #### 1 1404782, 4567247, 2598343, 5504879, 0352950, 8439566, 97867896, 5999780 #### [facility] [address] [place] [address] Hematocrit (Bld) [Volume fraction] 30.5 % Low 34.0-46.0 [facility] Comment on above: Performed By: #### 1 6682421, 5543669, 6918710, 0798015, 4787897, 9283052, 35443938, 5473927 #### [facility] [address] [place] [address] Hemoglobin (Bld) [Mass/Vol] 10.8 g/dL Low 12.0-16.0 [facility] Comment on above: Performed By: #### 1 0338319, 0007115, 2117584, 6248256, 9964421, 1280398, 65362932, 7828440 #### [facility] [address] [place] [address] MCH (RBC) [Entitic mass] 31.4 pg Normal 27.0-34.0 [facility] Comment on above: Performed By: #### 1 9286834, 4732375, 7942693, 4525242, 9707205, 9846154, 70687682, 2366681 #### [facility] [address] [place], [place] [address] MCHC (RBC) [Mass/Vol] 35.2 g/dL Normal 33.3-35.7 [facility] Comment on above: Performed By: #### 1 4476815, 8326600, 5648560, 8901047, 7938886, 4319568, 71573308, 4017743 #### [facility] [address] [place] [address] MCV (RBC) [Entitic vol] 89.0 fL Normal 80.0-100.0 [facility] Comment on above: Performed By: #### 1 9556603, 2549580, 0872082, 9170918, 6891446, 8084979, 04849926, 9841704 #### [facility] [address] [place] [address] Platelet mean volume (Bld) [Entitic vol] 7.4 fL Normal 6.4-10.8 [facility] Comment on above: Performed By: #### 1 5381742, 8304426, 8054613, 4284060, 4828423, 7360982, 84677413, 9106798 #### [facility] [address] [place] [address] Platelets (Bld) [#/Vol] 206.0 E9/L Normal 150.0-500.0 [facility] Comment on above: Performed By: #### 1 8870853, 6866794, 0675726, 5674682, 5993262, 7180286, 81203144, 7919978 #### [facility] [address] [place], [place] [address] RBC (Bld) [#/Vol] 3.4 E12/L Low 4.3-5.9 [facility] Comment on above: Performed By: #### 1 3334169, 1508415, 5519155, 7587155, 3402427, 9696548, 55946668, 7209902 #### [facility] [address] [place] [address] WBC corrected for nucl RBC Auto (Bld) [#/Vol] 9.0 E9/L Normal 4.0-11.0 [facility] Comment on above: Performed By: #### 1 9136409, 0078170, 0932549, 1093158, 8289476, 3893978, 40581693, 6715798 #### [facility] [address] [place] [address] CMPon 07-19-2019 Albumin [Mass/Vol] 3.1 g/dL Low 3.3-5.0 [facility] Comment on above: Performed By: #### 1 8576395, 3196460, 7409251, 0887732, 1835540, 7057498, 76509679, 1541221 #### [facility] [address] [place], [place] [address] Albumin [Mass/Vol] 1.3 g/dL Normal 1.1-2.2 [facility] Comment on above: Performed By: #### 1 0358076, 6653226, 3297033, 0984313, 8937175, 7568169, 65518284, 3470284 #### [facility] [address] [place] [address] ALP [Catalytic activity/Vol] 64 Int._Unit/L Normal 21-98 [facility] Comment on above: Performed By: #### 1 5725708, 2514549, 3299528, 9126631, 1339436, 1072037, 01153509, 6399440 #### [facility] [address] [place] [address]166 ALT No additional P-5'-P [Catalytic activity/Vol] 77 Int._Unit/L High 6-46 [facility] Comment on above: Performed By: #### 1 3324288, 6362515, 4873552, 5637086, 2978540, 0445598, 06976797, 3049550 #### [facility] [address] [place] [address] AST [Catalytic activity/Vol] 32 Int._Unit/L Normal 5-43 [facility] Comment on above: Performed By: #### 1 8627204, 7128821, 5810873, 0985819, 6666186, 4617761, 11423857, 7609451 #### [facility] [address] [place] [address] Bilirubin [Mass/Vol] 1.2 mg/dL High 0.0-1.1 [facility] Comment on above: Performed By: #### 1 4399106, 3149697, 1555548, 0593882, 8049686, 8469684, 65000027, 8292293 #### [facility] [address] [place] [address] Creatinine [Mass/Vol] 0.6 mg/dL Normal 0.5-1.3 [facility] Comment on above: Performed By: #### 1 1001180, 8244995, 0146673, 3712046, 6309116, 8062624, 07792856, 0853566 #### [facility] [address] [place] [address] Globulin (S) [Mass/Vol] 2.4 g/dL Normal 1.4-4.0 [facility] Comment on above: Performed By: #### 1 0361047, 0624122, 7869129, 3531604, 1836199, 9342227, 88391996, 7859787 #### [facility] [address] [place] [address] Protein [Mass/Vol] 5.5 g/dL Low 6.0-7.8 [facility] Comment on above: Performed By: #### 1 7937433, 8098282, 5255870, 6804480, 7251182, 9591388, 62957525, 4227757 #### [facility] [address] [place] [address] Urea nitrogen [Mass/Vol] 10 mg/dL Normal 5-21 [facility] Comment on above: Performed By: #### 1 9708531, 0593802, 8118789, 4504833, 1792446, 8016102, 78847771, 2578932 #### [facility] [address] [place] [address] Urea nitrogen/Creatinine [Mass ratio] 17 No Units Normal 10-20 [facility] Comment on above: Performed By: #### 1 2590919, 9928396, 6937313, 3754977, 1282915, 3441511, 27647176, 2736380 #### [facility] [address] [place] [address] Anion gap [Moles/Vol] 12 mmol/L Normal 6-16 [facility] Comment on above: Performed By: #### 1 1716659, 9859775, 7374797, 2863485, 8022252, 5257483, 24954929, 8506681 #### [facility] [address] [place] [address] Calcium [Mass/Vol] 8.5 mg/dL Low 8.9-11.1 [facility] Comment on above: Performed By: #### 1 0642295, 5824574, 0937152, 2403224, 7542327, 0764375, 30028016, 1708588 #### [facility] [address] [place] [address] Chloride [Moles/Vol] 109 mmol/L Normal 101-111 [facility] Comment on above: Performed By: #### 1 7147933, 6554384, 5742521, 1957563, 4335167, 4256271, 75320751, 6768011 #### [facility] [address] [place] [address] CO2 [Moles/Vol] 22 mmol/L Normal 21-31 [facility] Comment on above: Performed By: #### 1 4863896, 8002734, 3546757, 6222259, 3887653, 9172368, 02011140, 4203686 #### [facility] [address] [place] [address] Glucose [Mass/Vol] 99 mg/dL Normal 55-199 [facility] Comment on above: Result Comment: If t his glucose result represents a fasting glucose, interpretation should refer to the following reference range: 55-99 mg/dL Performed By: #### 1 8522385, 4303027, 6244598, 3774284, 6972266, 6169693, 90638523, 6427832 #### [facility] [address] [place] [address] Potassium [Moles/Vol] 3.7 mmol/L Normal 3.5-5.3 [facility] Comment on above: Performed By: #### 1 5770875, 6845474, 8814005, 5130170, 3756738, 5513673, 24829624, 2520839 #### [facility] [address] [place] [address] Sodium [Moles/Vol] 139 mmol/L Normal 135-145 [facility] Comment on above: Performed By: #### 1 8774816, 1139139, 0475472, 1957096, 6765115, 7017819, 16573815, 0505361 #### [facility] [address] [place] [address] Discharge Note-Nursingon Discharge Note-Nursing Pt taken to picker tender helper exit with belongings by wheelchair and discharged home with family per personal vehicle [facility] Inpatient Clinical Summaryon 07-19-2019 Inpatient Clinical Summary [address] [address] Clinical Summary Person Information: Name: SUKHDEV SCHWARTZ Age: 33 Years : 1985 12:00 AM Sex: Female PCP: LOLI MATIAS MD Marital Status: Phone: [phone] Race: White Ethnicity: Non- or Language: Palestinian Visit Id: Visit Reason: Vomiting; Nausea; Abdominal pain; COMMON DUCT OBSTRUCTION, ACUTE PANCREATITIS Speciality: Acuity: Enc Type: Inpatient Med Service: Medical Arrival: 07/17/2019 8:55 PM Discharge: Dispo Type: Admitted as IP to this [facility] Address: [address] [place] [address] [address] [place] [id number] Provider Notes: Diagnosis: 1:Acute gallstone pancreatitis; 2:Abnormal LFTs; 3:Common bile duct obstruction; 4:History of bariatric surgery; 5:Hypothyroidism; 6:History of herniated intervertebral disc; 7:Obesity Problems Active Pancreatitis Smoking Status: Never Smoker Functional Status: Sensory Deficits: No hearing deficits, Wears glasses History of Falls: Mobility Assistance Prior to Admission: Independent ADLs: Independent Current Level of Assistance for Self-Care/Mobility: Cognitive Status: Oriented x 3 Allergies Pollen (Hayfever) Levaquin (Liver damage) Measurements: Height: 184 cm Weight: 111.9 kg Blood Pressure: 131 mmHg / 77 mmHg BMI: 32.2 kg/m2 Procedures Cholecystectomy (07/19/2019) Immunizations No Immunizations Documented This Visit Final Med List: acetaminophen-hydrocodone (acetaminophen-hydrocodone 325 mg-5 mg oral tablet) 1 Tabs By Mouth every 6 hours as needed Pain for 4 Days. K85.1 acute gallstone pancreatitis. Refills: 0. cholecalciferol (Vitamin D3 5000 intl units oral capsule) 1 Capsules By Mouth every day. with food. levothyroxine (levothyroxine 50 mcg (0.05 mg) Tab) 1 Tabs By Mouth every day. loratadine (loratadine 10 mg Tab) 1 Tabs By Mouth every day. multivitamin with minerals (Multivitamins and Minerals) 1 tab By Mouth every day. naltrexone 4.5 mg oral daily. ranitidine (ranitidine 150 mg Tab) 1 Tabs By Mouth 2 times a day. Care Team Members: Attending Physician: Aron ALVARADO DO Consulting Physician: Abhinav REDDY MD Referring Physician: Follow up: With: Address: When: Javan Brennan [facility], [address], [address] [phone] Business (1) Within 7 to 10 days With: Address: When: [place] [address] Business (1) 08/07/2019 7:30 AM Type Location Start [facility] Follow Up [facility] 09/12/2019 2:00 PM 09/12/2019 2:15 PM Confirmed Patient Education Information: Cholecystostomy [facility] Inpatient Patient Summaryon 07-19-2019 Inpatient Patient Summary [address] [address] Patient Discharge Instructions PERSON INFORMATION Name: SUKHDEV SCHWARTZ Date of : 1985 12:00 AM Current Date: 07/19/19 19:38:22 PHYSICIANS Admitting Physician: Aron ALVARADO DO Primary Care Physician: LOLI MATIAS MD PCP Comment: Discharge Diagnosis: 1:Acute gallstone pancreatitis; 2:Abnormal LFTs; 3:Common bile duct obstruction; 4:History of bariatric surgery; 5:Hypothyroidism; 6:History of herniated intervertebral disc; 7:Obesity Condition at Discharge: Improved HERMILA SCHWARTZY Antoni has been given the following list of follow-up instructions, prescriptions, and patient education materials: PATIENT FOLLOW-UP INFORMATION Diet: Regular Discharge Activity: Ambulate as tolerated Discharge Restrictions: Wound Care Instructions: Remove Your Dressing In Days Call Your Doctor For: Return to Work: IF UNABLE TO CONTACT YOUR PHYSICIAN AND YOU FEEL IT IS AN EMERGENCY, GO TO THE NEAREST EMERGENCY ROOM OR CALL 1 Home Treatment: Devices/Equipment: Special Services: Additional Instructions: Primary Care Physician to provide the following pending test results: None Follow up: With: Address: When: Javan Goel [address] [place] [address], [address], [address] [phone] Business (1) Within 7 to 10 days With: Address: When: LOLI MATIAS [address] [place] [address] Business (1) 08/07/2019 7:30 AM In the event that this physician does not participate in your insurance network, please consult with your insurance company to find a nearby participating provider. Type Location Start [facility] 09/12/2019 2:00 PM 09/12/2019 2:15 PM Confirmed Comment: JAMES Bain BRITTANY F, have received the attached patient education materials/instructions and have verbalized understanding: Patient Signature __ Date Clinican/Nurse Signature Date HERE ARE THE MEDICATION CHANGES THAT OCCURRED DURING YOUR HOSPITAL STAY New Medications [facility], [address] [place], [place] [id number], [phone] acetaminophen-hydrocodone (acetaminophen-hydrocodone 325 mg-5 mg oral tablet) 1 Tabs By Mouth every 6 hours as needed Pain for 4 Days. K85.1 acute gallstone pancreatitis. Refills: 0. Last Dose: N ext Dose: Medications to Continue with No Changes Other Medications cholecalciferol (Vitamin D3 5000 intl units oral capsule) 1 Capsules By Mouth every day. with food. Last Dose: N ext Dose: levothyroxine (levothyroxine 50 mcg (0.05 mg) Tab) 1 Tabs By Mouth every day. Last Dose: N ext Dose: loratadine (loratadine 10 mg Tab) 1 Tabs By Mouth every day. Last Dose: N ext Dose: multivitamin with minerals (Multivitamins and Minerals) 1 tab By Mouth every day. Last Dose: N ext Dose: naltrexone 4.5 mg oral daily. Last Dose: N ext Dose: ranitidine (ranitidine 150 mg Tab) 1 Tabs By Mouth 2 times a day. Last Dose: N ext Dose: Comment: MEDICATION LIST PROVIDED FOR YOU IS A LIST OF YOUR CURRENT MEDICATIONS. PLEASE CARRY THIS WITH YOU AT ALL TIMES. acetaminophen-hydrocodone (acetaminophen-hydrocodone 325 mg-5 mg oral tablet) 1 Tabs By Mouth every 6 hours as needed Pain for 4 Days. K85.1 acute gallstone pancreatitis. Refills: 0. cholecalciferol (Vitamin D3 5000 intl units oral capsule) 1 Capsules By Mouth every day. with food. levothyroxine (levothyroxine 50 mcg (0.05 mg) Tab) 1 Tabs By Mouth every day. loratadine (loratadine 10 mg Tab) 1 Tabs By Mouth every day. multivitamin with minerals (Multivitamins and Minerals) 1 tab By Mouth every day. naltrexone 4.5 mg oral daily. ranitidine (ranitidine 150 mg Tab) 1 Tabs By Mouth 2 times a day. Pharmacy Information: [facility] Anurag Comment: PATIENT EDUCATION INFORMATION Instructions: Cholecystostomy The gallbladder is a pear-shaped organ that lies beneath the liver on the right side of the body. The gallbladder stores bile, a fluid that helps the body digest fats. However, sometimes bile and other fluids build up in the gallbladder because of an obstruction (for example, a gallstones). This can cause fever, pain, swelling, nausea and other serious symptoms. The procedure used to drain these fluids is called a cholecystostomy. A tube is inserted into the gallbladder. Fluid drains through the tube into a plastic bag outside the body. This procedure is usually done on people who are admitted to the hospital. The procedure is often recommended for people who cannot have gallbladder surgery right away, usually because they are too ill to make it through surgery. The cholecystostomy tube is usually temporary, until surgery can be done. RISKS AND COMPLICATIONS Although rare, complications can include: ? Clogging of the tube. ? Infection in or around the drain site. Antibiotics might be prescribed for the infection. Or, another tube might be inserted to drain the infected fluid. ? Internal bleeding from the liver. BEFORE THE PROCEDURE ? Try to quit smoking several weeks before the procedure. Smoking can slow healing. ? Arrange for someone to drive you home from the hospital. ? Right before your procedure, avoid all foods and liquids after midnight. This includes coffee, tea and water. ? On the day of the procedure, arrive early to fill out all the paperwork. PROCEDURE You will be given a sedative to make you sleepy and a local anesthetic to numb the skin. Next, a small cut is made in the abdomen. Then a tube is threaded through the cut into the gallbladder. The procedure is usually done with ultrasound to guide the tube into the gallbladder. Once the tube is in place, the drain is secured to the skin with a stitch. The tube is then connected to a drainage bag. AFTER THE PROCEDURE ? People who have a cholecystostomy usually stay in the hospital for several days because they are so ill. You might not be able to eat for the first few days. Instead, you will be connected to an IV for fluids and nutrients. ? The procedure does not cure the blockage that caused the fluid to build up in the first place. Because of this, the gallbladder will need to be removed in the future. The drain is removed at that time. HOME CARE INSTRUCTIONS Be sure to follow your healthcare provider's instructions carefully. You may shower but avoid tub baths and swimming until your caregiver says it is OK. Eat and drink according to the directions you have been given. And be sure to make all follow-up appointments. Call your healthcare provider if you notice new pain, redness or swelling around the wound. SEEK IMMEDIATE MEDICAL CARE IF: ? There is increased abdominal pain. ? Nausea or vomiting occurs. ? You develop a fever. ? The drainage tube comes out of the abdomen. Document Released: 12/31/2009 Document Revised: 12/26/2012 Document Reviewed: 12/31/2009 ExitCare? Patient Information ?2014 [employer] ([employer]). This information is not intended to replace advice given to you by your health care provider. Make sure you discuss any questions you have with your health care provider. Medication Leaflets: Thank you for choosing [facility] Interdisciplinary Note - Arcadio e Manageron 07-19-2019 INR Coag (Bld) [Relative time] Rounding with Dr. Benjamin, Felicia [facility], Rosie [facility], and Agustina GOODRICH with another patient . No family in room. Patient is alert and oriented and participates in plan of care. Whiteboard updated. Discussed plan is to have surgery today to remove gall bladder and if does well possible dc later today. Patient does admit to vomiting once during night. Patient denies any questions or needs at discharge. she will update family on dc plans. [facility] Comment on above: Result Comment: Elec tronically Signed By: Andrzej GOODRICH, Felicia\.br\Date and Time Signed: 07/19/19 09:10 EDT Main OR Intraoperative Recor don 07-19-2019 Main OR Intraoperative Record IntraOp Document Type FT Summary Primary Physician: Javan Goel MD Finalized Date/Time: 07/19/19 14:22:14 Pt. Name: SUKHDEV SCHWARTZ D.O.B./Sex: 1985 Female Med Rec #: [id number] Physician: Aron ALVARADO DO Financial #: [id number] Pt. Type: I Room/Bed: 06 Admit/Disch: 07/17/19 20:55:00 - Institution: Case Times FT Entry 1 Patient Times In Room 07/19/19 10:51:00 Out Room 07/19/19 13:18:00 Procedure Times Start 07/19/19 11:21:00 Stop 07/19/19 13:13:00 Anesthesia Times Start 07/19/19 10:51:00 Stop 07/19/19 13:18:00 Last Modified By: Juanita Stein CST 07/19/19 13:22:28 General Comments: 07/19/19 Chart opened to review and send charges Hilda Stein CST Case Attendance FT Entry 1 Entry 2 Entry 3 Case Attendee Carlito OVALLES, Geri Goel MD, Berry Heller RN Role Performed Anesthesiologist Surgeon - Primary ON AIR ANNOUNCER General Assembler Time In 07/19/19 10:51:00 07/19/19 10:51:00 07/19/19 10:51:00 Time Out 07/19/19 13:18:00 07/19/19 12:56:00 07/19/19 13:18:00 Procedure CHOLECYSTECTOMY CHOLECYSTECTOMY CHOLECYSTECTOMY LAPAROSCOPIC W/ LAPAROSCOPIC W/ LAPAROSCOPIC W/ CHOLANGI(.) CHOLANGI(.) CHOLANGI(.) Comments DR GARVIN OUT FOR LUNCH FROM SUPERVISING.GERI [id number] WANDER GRAY-OUT TO LUNCH FROM [phone]. Last Modified By: Luis Fernando RN, Tosha Gould RN, Tosha Stewart RN 07/19/19 13:22:30 07/19/19 13:22:30 07/19/19 13:22:30 Entry 4 Entry 5 Entry 6 Case Attendee Armaan VILLAGOMEZ, Mónica Gould RN, Tosha Wright RNRavi Role Performed Scrub - Primary Technical Service Specialist - Primary Technical Service Specialist - Relief Time In 07/19/19 10:51:00 07/19/19 10:51:00 07/19/19 11:04:00 Time Out 07/19/19 13:18:00 07/19/19 13:18:00 07/19/19 11:40:00 Procedure CHOLECYSTECTOMY CHOLECYSTECTOMY CHOLECYSTECTOMY LAPAROSCOPIC W/ LAPAROSCOPIC W/ LAPAROSCOPIC W/ CHOLANGI(.) CHOLANGI(.) CHOLANGI(.) Comments OUT FOR LUNCH FROM OUT TO LUNCH FROM [phone] Last Modified By: Luis Fernando GOODRICH, Tosha Gould RN, Tosha Stewart RN 07/19/19 13:22:30 07/19/19 13:22:30 07/19/19 13:22:30 Entry 7 Entry 8 Entry 9 Case Attendee Adalid VILLAGOMEZ, Bert Vázquez [employer], Tosha Wolf CST Performed [employer] Scrub - Relief Scrub - Other Time In 07/19/19 11:00:00 07/19/19 11:00:00 07/19/19 11:31:00 Time Out 07/19/19 11:35:00 07/19/19 11:35:00 07/19/19 13:18:00 Procedure CHOLECYSTECTOMY CHOLECYSTECTOMY CHOLECYSTECTOMY LAPAROSCOPIC W/ LAPAROSCOPIC W/ LAPAROSCOPIC W/ CHOLANGI(.) CHOLANGI(.) CHOLANGI(.) Comments HOLDING CAMERA Last Modified By: Luis Fernando GOODRICH, Tosha Gould RN, Tosha Stewart RN 07/19/19 13:22:30 07/19/19 13:22:30 07/19/19 13:22:30 Perioperative Protocols FT Pre-Care Text: Implements protective measures prior to operative or invasive procedure, confirms identity before the operative or invasive procedure, verifies operative procedure, surgical site, and laterality Entry 1 Procedure(s) CHOLECYSTECTOMY Patient Identity Birthday, ID Band LAPAROSCOPIC W/ Verified (select at Check, Patient CHOLANGI(.) least 2): Participation Consents / H and P Anesthesia Consent, Operative Site N/A Verified HandP, Surgery/Procedure Marking Verified Consent Surgical Site Yes Laterality Verified Yes Verified Procedure Verified Yes Correct Patient Yes Position Verified Availability Equipment, Medication Prep Dry Yes Verified (If Applicable) PreOp Antibiotic Yes Time Out Amando GUSTAFSON, Javan J, Given Participants Olaf GOODRICH, Carlito Smart Carly C, Wilhelm CST, Benjamin, Krupp RN, Andrea L, Sharp CST/Gabbi MCKEON Time Out Complete 07/19/19 11:19:00 Outcomes Met? Yes Last Modified By: Ravi Wright RN 07/19/19 11:25:07 Post-Care Text: The patient is free from signs and symptoms of injury caused by extraneous objects Allergy Information FT Pre-Care Text: Verifies allergies Entry 1 Allergies Reviewed? Yes Allergies Reviewed Self/Patient With Outcomes Met? Yes Last Modified By: Ravi Wright RN 07/19/19 11:22:48 Post-Care Text: The patient received appropriate medication(s) safely administered during the perioperative period Surgical Procedures FT Entry 1 Procedure Description Procedure CHOLECYSTECTOMY Modifiers . LAPAROSCOPIC W/ CHOLANGIOGRAM Surgeon Description LAPAROSCOPIC CHOLECYSTECTOMY Primary Procedure Yes Primary Surgeon Amando GUSTAFSON, Javan Stevens Start 07/19/19 11:21:00 Stop 07/19/19 13:13:00 Anesthesia Type General Surgical Service General Wound Class 2 - Clean-Contaminated Last Modified By: Tosha Gould RN 07/19/19 13:23:10 General Case Data FT Pre-Care Text: Classifies surgical wound, implements aseptic technique, initiates traffic control Entry 1 Case Information OR OR 2 FT Case Level Level 3 Wound Class 2 - Clean-Contaminated Specialty General ASA Class 2 Preop Diagnosis GALLSTONES , Postop Same As Preop Yes PANCREATITIS Postop Diagnosis GALLSTONES , Outcomes Met? Yes PANCREATITIS Last Modified By: Tosha Gould RN 07/19/19 11:51:46 Post-Care Text: The patient is free from signs and symptoms of infection Skin Assessment (Pre Procedure) FT Pre-Care Text: Implements protective measures to prevent skin/ tissue injury due to thermal or mechanical sources Evaluates for signs and symptoms of physical injury to skin and tissue Entry 1 Skin Integrity Bruised, Intact, [place], Skin Abnormality Yes Warm, and Dry Abnormality Location multiple bruises on Outcomes Met? Yes abdomen seen, bruise on upper left thigh seen Last Modified By: Tosha Gould RN 07/19/19 11:18:08 Post-Care Text: The patient is free from signs and symptoms of injury caused by extraneous objects Patient Positioning FT Pre-Care Text: Identifies physical alterations that require additional precautions for procedure-specific positioning, verifies presence of prosthetics or corrective devices, positions the patient, evaluates the patient for signs and symptoms of injury as a result of positioning Entry 1 Procedure CHOLECYSTECTOMY Body Position Supine LAPAROSCOPIC W/ CHOLANGI(.) Feet Uncrossed? Yes Left Arm Position Extended on Padded Arm Board Right Arm Position Extended on Padded Arm Left Leg Position Extended Board Right Leg Position Extended Positioning Device Safety Strap, Pillow Large Under Knees, Foot board Press Points Checked Yes By Berry Babin RN, Barbee RN, Kimberly Y, Geri Guerrero Outcomes Met? Yes Last Modified By: Tosha Gould RN 07/19/19 10:33:21 Post-Care Text: The patient is free from signs and symptoms of injury related to positioning Patient Care Devices FT Pre-Care Text: Implements protective measures to prevent skin/ tissue injury due to thermal or mechanical sources Entry 1 Entry 2 Entry 3 Equipment Type CAUTERY UNIT[F] INSUFLATORS[F] INSUFLOW HEATER UNIT[F] Equipment Number BOOM OR 2 BOOM OR 2 BOOM OR 2 Equipment Setting 30 CUT/ 30 COAG 15 mmHg Outcomes Met? Yes Yes Yes Last Modified By: Ravi Wright RN, RN, Ravi Tomlinson RN 07/19/19 11:38:42 07/19/19 11:38:42 07/19/19 11:38:42 Entry 4 Entry 5 Entry 6 Equipment Type MISTRAL FORCED AIR MONITOR CHARGE SURGERY SUCTION REGULATOR[F] WARMING SYSTEM UNIT[F] [F] Equipment Number M2 OR 2 Equipment Setting HIGH/43C Outcomes Met? Yes Yes Yes Last Modified By: Ravi Wright RN, RN, Ravi Tomlinson RN 07/19/19 11:38:42 07/19/19 11:38:42 07/19/19 11:38:42 Entry 7 Entry 8 Entry 9 Equipment Type VENA FLOW UNIT[F] VIDEO SYSTEM[F] GLIDESCOPE, INTUBATING[F] Equipment Number BOOM OR 2 Equipment Setting Outcomes Met? Yes Yes Yes Last Modified By: Kyle GOODRICH, Ravi Wright RN, Ravi Tomlinson RN 07/19/19 11:38:42 07/19/19 11:38:42 07/19/19 11:38:42 Entry 10 Equipment Type ENDOFLOW IRRIGATION SYSTEM[F] Equipment Number Equipment Setting Outcomes Met? Yes Last Modified By: Ravi Wright RN 07/19/19 11:38:42 Post-Care Text: The patient is free from signs and symptoms of injury caused by extraneous objects Transport To OR FT Pre-Care Text: Transports according to individual needs. Evaluates for signs and symptoms of skin and tissue injury as a result of transfer or transport Entry 1 Via Patient Bed By Tosha Gould RN Safety Precautions Side Rails Up Outcomes Met? Yes Last Modified By: Tosha Gould RN 07/19/19 10:34:31 Post-Care Text: The patient is free from signs and symptoms of injury related to transfer/transport Cautery FT Pre-Care Text: Implements protective measures to prevent injury due to electrical sources, and evaluates for signs and symptoms of electrical injury Entry 1 ESU Identification ESU Type CAUTERY UNIT[F] Equipment Number Boom OR 2 ESU Settings Cut 30 Coag 30 ESU Grounding Pad Site Left Thigh Hair Removal Pad No Site Pre Pad Site Clear and Intact Post Pad Site Clear and Intact Condition Condition Grounding Pad Tosha Gould RN Placed By Outcomes Met? Yes Last Modified By: Ravi Wright RN 07/19/19 11:23:23 Post-Care Text: The patient if free from signs and symptoms of electrical injury Counts Verification FT Pre-Care Text: Performs required counts Entry 1 Entry 2 Entry 3 Procedure(s) CHOLECYSTECTOMY CHOLECYSTECTOMY CHOLECYSTECTOMY LAPAROSCOPIC W/ LAPAROSCOPIC W/ LAPAROSCOPIC W/ CHOLANGI(.) CHOLANGI(.) CHOLANGI(.) Type Initial Relief Final Items Instruments, Sponges, Sponges, Sharps Sponges, Sharps Sharps Status Correct Correct Correct Time 07/19/19 10:51:00 07/19/19 11:34:00 07/19/19 12:50:00 By Armaan VILLAGOMEZ, Armaan Sales CST, Armaan Sales CST, Olaf Sales RN, Berry Wright RN, Tosha Kennedy RN Outcomes Met? Yes Yes Yes Last Modified By: Tosha Gould RN, RN, Tosha Kennedy RN 07/19/19 11:52:42 07/19/19 11:39:33 07/19/19 12:50:18 Post-Care Text: The patient is free from signs and symptoms of injury caused by extraneous objects Skin Prep FT Pre-Care Text: Performs skin preparations Entry 1 Procedure CHOLECYSTECTOMY Prep Area abdomen LAPAROSCOPIC W/ CHOLANGI(.) Prep Agents Chloraprep/Dry Prior to Start Dry Time 07/19/19 11:14:00 Draping Stop Dry Time 07/19/19 11:17:00 Hair Removal Methods Not Indicated By Bert Cordoba CST Outcomes Met? Yes Last Modified By: Tosha Gould RN 07/19/19 11:53:01 Post-Care Text: The patient is free from signs and symptoms of infection Departure From OR FT Pre-Care Text: Transports according to individual needs. Evaluates for signs and symptoms of skin and tissue injury as a result of transfer or transport. Entry 1 Via Patient Bed Safety Precautions Side Rails Up PostOp Destination PACU Transported By Tosha Gould RN Patient Status Stable Skin. Condition Other/See Comments Description SKIN CONDITION SAME PREOP Airway Maintenance Oxygen in Use? Yes Airway Device Simple Mask Flow Rate 8 L Outcomes Met? Yes Last Modified By: Tosha Gould RN 07/19/19 10:36:54 Post-Care Text: The patient is free from signs and symptoms of injury related to transfer/transport General Comments: REPORT GIVEN TO PACU NURSE. JOLEEN XAVIER Dressing/Packing FT Pre-Care Text: Administers care to wound sites Entry 1 Type Dressing Items DRESSING STERI-STRIP 1/4 X 4 [[id number]][F] Site and Details ABDOMEN - Mastisol and Outcomes Met? Yes / steri strips and band aids Last Modified By: Tosha Gould RN 07/19/19 12:31:36 Post-Care Text: The patient is free from signs and symptoms of infection Medication Administration FT Pre-Care Text: Verifies allergies, administers prescribed medications and solutions, administers prescribed antibiotic therapy and immunizing agents as ordered, evaluates response to medications Administers prescribed medications and solutions Entry 1 Route of Admin Field Expiration Date Yes Verified Ordered By Javan Goel MD Transcribed/To Tosha Gould RN Field By Administered By Javan Goel MD Outcomes Met? Yes Last Modified By: Tosha Gould RN 07/19/19 10:35:20 Post-Care Text: The patient received appropriate medication(s) safely administered during the perioperative period For Daugherty-Angel please see scanned medication reconcilliation form for medications used at the field during the procedure. Drains/Tubes FT Pre-Care Text: Administers care to invasive device sites Entry 1 Device Type TUBE NASOGASTIC SUMP Location MOUTH 18FR [[id number]][F] Quantity 1 Inserted By Geri Guerrero Present on Arrival? No Immediate DC? No DC'd at End of Case? Yes DC'd By Geri Guerrero Outcomes Met? Yes Last Modified By: Tosha Gould RN 07/19/19 12:32:44 Post-Care Text: The patient is free from signs and symptoms of infection Urinary Catheter Pre-Care Text: Patient is prepped using sterile technique. Entry 1 Urinary Catheter TRAY URINE PATRICE CATH Present Upon Arrival No Inserted LF 16FR [[id number]][F] Insertion Date/Time 07/19/19 11:09:00 Urine Residual 350 Insertion Site Uretheral Urine clear, yellow urine Characteristics output Inserted By Ravi Wright RN Discontinued? Yes When was the Discontinued at end of DC'd By Tosha Gould RN catheter case discontinued? Outcomes Met? Yes Last Modified By: Tosha Gould RN 07/19/19 11:53:32 Post-Care Text: The patient is free from signs of trauma. Cultures and Specimens FT Pre-Care Text: Manages specimen handling and disposition Manages culture specimen collection Entry 1 Cultures Ordered Yes Culture Disposition Designated OR Area Culture Source URINE Specimens Ordered Yes Specimen Disposition Designated OR Area Frozen Section Times Outcomes Met? Yes Last Modified By: Tosha Gould RN 07/19/19 11:56:59 Post-Care Text: The patient is free from signs and symptoms of injury caused by extraneous objects The patient is free from signs and symptoms of infection General Comments: CULTURE ORDERED - U/A WITH CULT REFLUX. SPECIMEN ORDERED - GALLBLADDER. BOTH TAKEN TO DESIGNATED OR AREA. JOLEEN XAVIER Temperature Control Entry 1 Temperature Control BLANKET MISTRAL AIR Quantity 1 Aid TORSO [[id number]][F] Fluid/Murray Unit Mistral warming system Setting HIGH/43C Body Site Upper anterior torso Last Modified By: Tosha Gould RN 07/19/19 10:34:51 Case Comments Finalized By: Juanita Stein CST Document Signatures Signed By: Tosha Gould RN 07/19/19 13:23 Juanita Stein CST 07/19/19 14:22 Normal [facility] Main OR PACU I Recordon Main OR PACU I Record PACU Phase I Document Type FT Summary Primary Physician: Javan Goel MD Finalized Date/Time: 07/19/19 13:51:28 Pt. Name: SUKHDEV SCHWARTZ/Sex: 1985 Female Med Rec #: [id number] Physician: Aron ALVARADO DO Financial #: [id number] Pt. Type: I Room/Bed: [place] [address] Admit/Disch: 07/17/19 20:55:00 - Institution: Case Times PACU I FT Pre-Care Text: Identifies barriers to communication and implements measures to provide psychological support Develops individualized plan of care, and ensures continuity of care Maintains patient's dignity and privacy, and maintains patient confidentiality Identifies and reports philosophical, cultural, and spiritual beliefs and values Identifies individual values and wishes concerning care Implements aseptic technique, and administers prescribed antibiotic therapy and immunizing agents as ordered Evaluates postoperative tissue perfusion Implements thermoregulation measures, and monitors body temperature Evaluates postoperative respiratory status Evaluates postoperative cardiac status Evaluates postoperative neurological status Assesses pain control, collaborated in initiating patient-controlled analgesia and implements alternative methods of pain control Verifies allergies, administers prescribed medications and solutions, evaluates response to medications Entry 1 In PACU I 07/19/19 13:19:00 Discharge from PACU 07/19/19 13:49:00 I Outcomes Met? Yes Last Modified By: Mariama Cadena RN 07/19/19 13:51:08 Post-Care Text: The patient demonstrates knowledge of the expected response to the operative or invasive procedure The patient's care is consistent with the individualized perioperative plan of care The patient's right to privacy is maintained The patient's value system, lifestyle, ethnicity, and culture are considered, respected, and incorporated into the perioperative plan of care The patient participates in decisions affecting his or her perioperative plan of care The patient is free from signs and symptoms of infection The patient has wound/tissue perfusion consistent with or improved from baseline levels established preoperatively The patient is at or returning to normothermia at the conclusion of the immediate postoperative period The patient's respiratory function is consistent with or improved from baseline levels established preoperatively The patient's cardiovascular status is consistent with or improved from baseline levels established preoperatively The patient's cardiovascular status is consistent with or improved from baseline levels established preoperatively The patient demonstrates and/or reports adequate pain control throughout the perioperative period The patient received appropriate medication(s), safely administered during the perioperative period Acuity Level PACU I FT Entry 1 Start Time 07/19/19 13:19:00 Stop Time 07/19/19 13:49:00 Acuity Level Acuity Level I Last Modified By: Mariama Cadena RN 07/19/19 13:51:22 Finalized By: Mariama Cadena RN Document Signatures Signed By: Mariama Cadena RN 07/19/19 13:51 Normal [facility] Main OR Preoperative Recordo n 07-19-2019 Main OR Preoperative Record PreOp Document Type FT Summary Primary Physician: Javan Goel MD Finalized Date/Time: 07/19/19 11:50:30 Pt. Name: SUKHDEV SCHWARTZ Antoni HoltB./Sex: 1985 Female Med Rec #: [id number] Physician: Aron ALVARADO DO Financial #: [id number] Pt. Type: I Room/Bed: [facility] Admit/Disch: 07/17/19 20:55:00 - Institution: Case Times PreOp FT Pre-Care Text: Verifies consent for planned procedure, identifies individual values and wishes concerning care, includes family members in perioperative teaching Entry 1 Patient Times. In Pre Surgery 07/19/19 10:30:00 Out Pre Surgery 07/19/19 10:49:00 Outcomes Met? Yes Last Modified By: Tosha Gould RN 07/19/19 11:50:26 Post-Care Text: The patient participates in decisions affecting his or her perioperative plan of care Finalized By: Tosha Gould RN Document Signatures Signed By: Tosha Gould RN 07/19/19 11:50 Normal [facility] Progress Note-Physicianon Progress Note-Physician ACUTE CARE SURGERY PROGRESS NOTE -- INTERVAL HISTORY/EVENTS Background: 33 y/o female w/ 1 day hx of epigastric pain radiating to RUQ. The pain is mild to moderate constant improved this am due to meds. It is associated w/ nausea no emesis. Of note she has had multiple bouts of pancreatitis over the last 3-4 months w/o clear etiology. Last admissionin April MRCP did not show stones or dilated duct. In this admission US found CBD was 9 mm and LFT was elevated along with lipase. Hospital Course: 07/18/19 s/p ERCP (removal of stone) 24 Hour Events: No overnight issues. Mild epigastric pain. Denies nausea/vomiting. AVSS. Labs reviewed. LFT improved. PHYSICAL EXAM Vital Signs (last 24 hrs) Last Charted Temp Oral 36.9 DegC (JUL 19 07:48) Heart Rate Peripheral 64 bpm (JUL 19 00:00) Resp Rate 18 br/min (JUL 19 07:48) SBP 129 mmHg (JUL 19 07:48) DBP 86 mmHg (JUL 19 07:48) SpO2 97 % (JUL 19 07:48) Weight 111.9 kg (JUL 19 05:17) Height 184 cm (JUL 19 04:55) This visit (24 hour periods starting at 07:00 EDT) 07/19/19 * 07/18/19 07/17/19 Total Summary Intake mL 12.5 1,179.05 510 Output mL -- -- -- Fluid Balance 12.5 1,179.05 510 Intake (10) Oral Intake mL -- 780 -- Sodium Chloride 0.9% mL -- 270 -- Sodium Chloride 0.9% intravenous solution 1,000 mL mL -- 50 508 hydromorphone mL 0.5 2.5 -- lidocaine mL -- 3.05 -- nalbuphine mL -- -- 2 ondansetron mL 2 2 -- pantoprazole mL 10 10 -- promethazine mL -- 0.5 -- propofol mL -- 61 -- Total 12.5 1,179.05 510 Output (1) Urine Voided mL -- -- -- Total -- -- -- Counts (2) Stool Count -- 1 -- Urine Count -- 4 -- * This column has not completed the indicated time period. PHYSICAL EXAM Constituational: No distress. Cardiovascular: Regular rate and rhythm Pulmonary: Clear to auscultation bilaterally. No wheezing, rhonchi or rales. Abdominal: Soft. Non-distended. minimal epigastric tender. Musculoskeletal: No edema. Neurological: Alert, awake, and oriented x 3. Motor and sensory grossly intact. LABORATORY RESULTS (LAST 24 HOURS) WBC: 9 E9/L (07/19/19 05:39:00 EDT) RBC: 3.4 E12/L Low (07/19/19 05:39:00 EDT) Hgb: 10.8 gm/dL Low (07/19/19 05:39:00 EDT) Hct: 30.5 % Low (07/19/19 05:39:00 EDT) MCV: 89 fL (07/19/19 05:39:00 EDT) MCH: 31.4 pg (07/19/19 05:39:00 EDT) MCHC: 35.2 gm/dL (07/19/19 05:39:00 EDT) RDW: 13.6 % (07/19/19 05:39:00 EDT) Platelet: 206 E9/L (07/19/19 05:39:00 EDT) MPV: 7.4 fL (07/19/19 05:39:00 EDT) Neutro Auto: 81 % High (07/19/19 05:39:00 EDT) Lymph Auto: 11.9 % Low (07/19/19 05:39:00 EDT) [place] Auto: 5.8 % (07/19/19 05:39:00 EDT) Eos Auto: 1.1 % (07/19/19 05:39:00 EDT) Basophil Auto: 0.2 % (07/19/19 05:39:00 EDT) Neutro Absolute: 7.3 E9/L (07/19/19 05:39:00 EDT) Lymph Absolute: 1.1 E9/L (07/19/19 05:39:00 EDT) [place] Absolute: 0.5 E9/L (07/19/19 05:39:00 EDT) Eos Absolute: 0.1 E9/L (07/19/19 05:39:00 EDT) Basophil Absolute: 0 E9/L (07/19/19 05:39:00 EDT) Glucose Lvl: 99 mg/dL (07/19/19 05:39:00 EDT) BUN: 10 mg/dL (07/19/19 05:39:00 EDT) Creatinine: 0.6 mg/dL (07/19/19 05:39:00 EDT) eGFR: >60 (07/19/19 05:39:00 EDT) eGFR AA: >60 (07/19/19 05:39:00 EDT) BUN/Creat Ratio: 17 (07/19/19 05:39:00 EDT) Sodium Lvl: 139 mmol/L (07/19/19 05:39:00 EDT) Potassium Lvl: 3.7 mmol/L (07/19/19 05:39:00 EDT) Chloride: 109 mmol/L (07/19/19 05:39:00 EDT) CO2: 22 mmol/L (07/19/19 05:39:00 EDT) AGAP: 12 mEq/L (07/19/19 05:39:00 EDT) Calcium Lvl: 8.5 mg/dL Low (07/19/19 05:39:00 EDT) Alk Phos: 64 Int._Unit/L (07/19/19 05:39:00 EDT) ALT: 77 Int._Unit/L High (07/19/19 05:39:00 EDT) AST: 32 Int._Unit/L (07/19/19 05:39:00 EDT) Total Protein: 5.5 gm/dL Low (07/19/19 05:39:00 EDT) Albumin Lvl: 3.1 gm/dL Low (07/19/19 05:39:00 EDT) Globulin: 2.4 gm/dL (07/19/19 05:39:00 EDT) A/G Ratio: 1.3 (07/19/19 05:39:00 EDT) Bili Total: 1.2 mg/dL High (07/19/19 05:39:00 EDT) IMAGING RESULTS (PERSONALLY REVIEWED) none ----- ASSESSMENT & PLAN -------- Diagnosis: gallstone pancreatitis (s/p ERCP), morbid obesity PMHx: morbid obesity (s/p sleeve gastrectomy), Plan: NPO for OR today for laparoscopic cholecystectomy IV fluids pain control w/ PRN meds scds b/l LE; heparin TID for chemoprophylaxis I had lengthy discussion with the patient regarding risk vs benefits of operative intervention. I explained that risks include but not limited to stomach/bowel injury, bleeding, post-operative superficial surgical site infection and deep organ space infection, bile leak and common bile duct/liver injury requiring potentially more complex operation and conversion to open procedure. Patient understood and consented to the procedure. Javan Goel MD Trauma/Critical Care/Acute Care Surgery Attending [facility] Comment on above: Result Comment: Elec tronically Signed By: Amando GUSTAFSON, Javan J\.br\Date and Time Signed: 07/19/19 10:32 EDT eGFRon 07-19-2019 GFR/1.73 sq M predicted among blacks MDRD (S/P/Bld) [Vol rate/Area] mL/min/{1.73_m2} Normal >=59 [facility] Comment on above: Order Comment: Order added by Discern Expert. Result Comment: eGFR is race adjusted. AA=. Performed By: #### 1 [id number], [id number], [id number], [id number], [id number], [id number] #### [facility] [address] [place] [address] GFR/1.73 sq M predicted among non-blacks MDRD (S/P/Bld) [Vol rate/Area] mL/min/{1.73_m2} Normal >=59 [facility] Comment on above: Order Comment: Order added by Discern Expert. Result Comment: Contract Forester ivan kidney disease could be indicated at eGFR's of less than 60 mL/min/1.73m2. Kidney failure is indicated at less than 15 mL/min/1.73m2. Performed By: #### 1 [id number], 9447572, 2108034, 3901381, [id number], [id number], [id number] #### [facility] [address] [place] [address] Auto Diffon 07-18-2019 Basophils/100 WBC (Bld) 0.4 % Normal 0.0-2.0 [facility] Comment on above: Order Comment: Order Added by Discern Expert. Performed By: #### 1 [id number], 4398401, 7379231, 6811732, [id number], [id number], [id number] #### [facility] [address] [place] [address] Basophils/Leukocyte s Auto (Bld) [Pure # fraction] 0.0 E9/L Normal 0.0-0.2 [facility] Comment on above: Order Comment: Order Added by Discern Expert. Performed By: #### 1 [id number], [id number], 7685633, 7494646, 4311031, 2758083, [id number], [id number] #### [facility] [address] [place] [address] Eosinophils/100 WBC (Bld) 0.4 % Normal 0.0-8.0 [facility] Comment on above: Order Comment: Order Added by Discern Expert. Performed By: #### 1 [id number], [id number], 2769226, 7532550, 6963681, 1832514, [id number], [id number] #### [facility] [address] [place] [address] Eosinophils/Leukocy dariel Auto (Bld) [Pure # fraction] 0.0 E9/L Normal 0.0-0.5 [facility] Comment on above: Order Comment: Order Added by Discern Expert. Performed By: #### 1 [id number], 8846069, 3593174, 9086910, 9809900, 7402958, [id number], [id number] #### [facility] [address] [place] [address] Lymphocytes/100 WBC (Bld) 19.3 % Normal 14.0-50.0 [facility] Comment on above: Order Comment: Order Added by Discern Expert. Performed By: #### 1 [id number], 3111213, 8660153, 6501230, 7428119, 6779677, [id number], [id number] #### [facility] [address] [place] [address] Lymphocytes/Leukocy dariel Auto (Bld) [Pure # fraction] 1.5 E9/L Normal 1.0-4.0 [facility] Comment on above: Order Comment: Order Added by Discern Expert. Performed By: #### 1 [id number], 1059215, 8608867, 2586043, 5497910, 7065717, 17462955, 7341551 #### [facility] [address] [place] [address] Monocytes/100 WBC (Bld) 6.4 % Normal 4.0-14.0 [facility] Comment on above: Order Comment: Order Added by Discern Expert. Performed By: #### 1 [id number], [id number], 1024470, 3914670, 1653254, 6528199, [id number], [id number] #### [facility] [address] [place] [address] Monocytes/Leukocyte s Auto (Bld) [Pure # fraction] 0.5 E9/L Normal 0.2-1.0 [facility] Comment on above: Order Comment: Order Added by Discern Expert. Performed By: #### 1 [id number], 4387942, 8296164, 5435483, 6372868, 9561183, [id number], [id number] #### [facility] [address] [place] [address] Neutrophils/100 WBC (Bld) 73.5 % Normal 36.0-75.0 [facility] Comment on above: Order Comment: Order Added by Discern Expert. Performed By: #### 1 [id number], 9166907, 2134904, 9405810, 5669343, 1320922, [id number], 3395790 #### [facility] [address] [place] [address] Neutrophils/Leukocy dariel Auto (Bld) [Pure # fraction] 5.7 E9/L Normal 2.0-7.5 [facility] Comment on above: Order Comment: Order Added by Discern Expert. Performed By: #### 1 [id number], 9528702, 1931802, 2006977, 4467711, 6614179, [id number], [id number] #### [facility] [address] [place] [address] Basophils/100 WBC (Bld) 0.3 % Normal 0.0-2.0 [facility] Comment on above: Order Comment: Order Added by Discern Expert. Performed By: #### 1 [id number], 9530769, 8513009, 4671831, [id number], 5437034, 74010672, 9947195 #### [facility] [address] [place] [address] 41684 Basophils/Leukocyte s Auto (Bld) [Pure # fraction] 0.0 E9/L Normal 0.0-0.2 [facility] Comment on above: Order Comment: Order Added by Discern Expert. Performed By: #### 1 8890655, 7444211, 8623988, 7985589, 4746670, 3804637, 31137727, 4618247 #### [facility] [address] [place] [address] 83636 Eosinophils/100 WBC (Bld) 0.6 % Normal 0.0-8.0 [facility] Comment on above: Order Comment: Order Added by Discern Expert. Performed By: #### 1 9805101, 4355260, 2160299, 2285451, 3841803, 0455872, 86781823, 0484526 #### [facility] [address] [place] [address] Eosinophils/Leukocy dariel Auto (Bld) [Pure # fraction] 0.1 E9/L Normal 0.0-0.5 [facility] Comment on above: Order Comment: Order Added by Discern Expert. Performed By: #### 1 0568387, 9361698, 0106027, 1017144, 0212054, 0297515, 23003864, 3344297 #### [facility] [address] [place] [address] Lymphocytes/100 WBC (Bld) 6.4 % Low 14.0-50.0 [facility] Comment on above: Order Comment: Order Added by Discern Expert. Performed By: #### 1 9947991, 5612531, 1908556, 6201554, 7116689, 6641662, 18707916, 5519401 #### [facility] [address] [place] [address] 12194 Lymphocytes/Leukocy dariel Auto (Bld) [Pure # fraction] 0.8 E9/L Low 1.0-4.0 [facility] Comment on above: Order Comment: Order Added by Discern Expert. Performed By: #### 1 4460787, 2565230, 1216598, 1740078, 4799956, 0759701, 45512181, 1436834 #### [facility] [address] [place] [address] 67789 Monocytes/100 WBC (Bld) 5.5 % Normal 4.0-14.0 [facility] Comment on above: Order Comment: Order Added by Discern Expert. Performed By: #### 1 5723128, 5272651, 6501621, 7679110, 6286106, 3441077, 89766836, 8492136 #### [facility] [address] [place] [address] Monocytes/Leukocyte s Auto (Bld) [Pure # fraction] 0.7 E9/L Normal 0.2-1.0 [facility] Comment on above: Order Comment: Order Added by Discern Expert. Performed By: #### 1 0605650, 0439754, 0551436, 2515220, 8076928, 9547800, 50291504, 0211527 #### [facility] [address] [place] [address] Neutrophils/100 WBC (Bld) 87.2 % High 36.0-75.0 [facility] Comment on above: Order Comment: Order Added by Discern Expert. Performed By: #### 1 8978161, 2015348, 1084012, 6585296, 9930242, 2759564, 02122711, 7266943 #### [facility] [address] [place] [address] Neutrophils/Leukocy dariel Auto (Bld) [Pure # fraction] 11.3 E9/L High 2.0-7.5 [facility] Comment on above: Order Comment: Order Added by Discern Expert. Performed By: #### 1 7977306, 6010960, 1208945, 4132212, 3551660, 7253346, 76495654, 4934380 #### [facility] [address] [place] [address] BMPon 07-18-2019 Urea nitrogen/Creatinine [Mass ratio] 22 No Units High 10-20 [facility] Comment on above: Performed By: #### 1 7034926, 4159128, 3326479, 7026978, 6118615, 4255297, 64305582, 0775686 #### [facility] [address] [place] [address] Creatinine [Mass/Vol] 0.5 mg/dL Normal 0.5-1.3 [facility] Comment on above: Performed By: #### 1 7003437, 4256415, 0781436, 7728246, 6136603, 7126817, 78477478, 7994910 #### [facility] [address] [place] [address] Urea nitrogen [Mass/Vol] 11 mg/dL Normal 5-21 [facility] Comment on above: Performed By: #### 1 3719657, 6510661, 6546302, 0244676, 0593736, 4534644, 03522701, 9541186 #### [facility] [address] [place] [address] Anion gap [Moles/Vol] 12 mmol/L Normal 6-16 [facility] Comment on above: Performed By: #### 1 3762903, 0827034, 8077389, 1559827, 9909085, 2723281, 52534706, 4269269 #### [facility] [address] [place] [address] Calcium [Mass/Vol] 8.8 mg/dL Low 8.9-11.1 [facility] Comment on above: Performed By: #### 1 8245728, 2828523, 0031488, 4212130, 0788614, 7926898, 09364712, 1381639 #### [facility] [address] [place] [address] Chloride [Moles/Vol] 109 mmol/L Normal 101-111 [facility] Comment on above: Performed By: #### 1 2998244, 4551164, 9519334, 5809716, 1688700, 2176983, 51595299, 4898078 #### [facility] [address] [place] [address] CO2 [Moles/Vol] 24 mmol/L Normal 21-31 [facility] Comment on above: Performed By: #### 1 9834039, 9880620, 1887945, 5983571, 4101192, 0913851, 24271753, 3663806 #### [facility] [address] [place] [address] Glucose [Mass/Vol] 104 mg/dL Normal 55-199 [facility] Comment on above: Result Comment: If t his glucose result represents a fasting glucose, interpretation should refer to the following reference range: 55-99 mg/dL Performed By: #### 1 4616702, 4824994, 8933495, 8375629, 5842128, 3596510, 89500048, 3804909 #### [facility] [address] [place] [address] Potassium [Moles/Vol] 3.8 mmol/L Normal 3.5-5.3 [facility] Comment on above: Performed By: #### 1 6135336, 6660242, 2836409, 6371724, 1580203, 4229310, 92133786, 2724530 #### [facility] [address] [place] [address] Sodium [Moles/Vol] 141 mmol/L Normal 135-145 [facility] Comment on above: Performed By: #### 1 2726942, 0461143, 6910888, 4166001, 1039193, 6647760, 37301640, 5436586 #### [facility] [address] [place] [address] Creatinine [Mass/Vol] 0.5 mg/dL Normal 0.5-1.3 [facility] Comment on above: Performed By: #### 1 6786741, 8638424, 7131916, 6422957, 5225009, 3844603, 88628795, 7286450 #### [facility] [address] [place] [address] Urea nitrogen [Mass/Vol] 13 mg/dL Normal 5-21 [facility] Comment on above: Performed By: #### 1 2950890, 7768862, 2761890, 1914559, 0344131, 5591763, 30888027, 8611844 #### [facility] [address] [place] [address] Urea nitrogen/Creatinine [Mass ratio] 26 No Units High 10-20 [facility] Comment on above: Performed By: #### 1 4339414, 8158445, 3926082, 1350447, 2320205, 3041568, 52141590, 1915949 #### [facility] [address] [place] [address] Anion gap [Moles/Vol] 13 mmol/L Normal 6-16 [facility] Comment on above: Performed By: #### 1 9507677, 7808610, 4443784, 0265871, 6929365, 0691412, 04372494, 4632953 #### [facility] [address] [place] [address] Calcium [Mass/Vol] 9.3 mg/dL Normal 8.9-11.1 [facility] Comment on above: Performed By: #### 1 1792186, 0333506, 2961616, 6335915, 7099473, 2591316, 38716997, 0604065 #### [facility] [address] [place] [address] Chloride [Moles/Vol] 105 mmol/L Normal 101-111 [facility] Comment on above: Performed By: #### 1 8202751, 8834690, 4727389, 2971694, 5790438, 2126555, 36641394, 1999932 #### [facility] [address] [place] [address] CO2 [Moles/Vol] 26 mmol/L Normal 21-31 [facility] Comment on above: Performed By: #### 1 3138308, 3717926, 6783580, 0877509, 9198627, 6792074, 98586329, 2670791 #### [facility] [address] [place] [address] Glucose [Mass/Vol] 107 mg/dL Normal 55-199 [facility] Comment on above: Result Comment: If t his glucose result represents a fasting glucose, interpretation should refer to the following reference range: 55-99 mg/dL Performed By: #### 1 5152778, 6214117, 6613528, 6533181, 6841431, 8910872, 64792399, 2032975 #### [facility] [address] [place] [address] Potassium [Moles/Vol] 3.7 mmol/L Normal 3.5-5.3 [facility] Comment on above: Performed By: #### 1 8719469, 9353234, 0108167, 2818001, 7056233, 3107257, 74147549, 7875373 #### [facility] [address] [place] [address] Sodium [Moles/Vol] 140 mmol/L Normal 135-145 [facility] Comment on above: Performed By: #### 1 3154957, 4081593, 4982836, 7968275, 0968624, 6922650, 81123003, 8075254 #### [facility] [address] [place] [address] 40368 CBC w/ Auto Diffon 9 Erythrocyte distribution width (RBC) [Ratio] 13.7 % Normal 10.9-14.2 [facility] Comment on above: Performed By: #### 1 4509529, 6104327, 5928591, 2459871, 6916332, 0527540, 30789626, 7004904 #### [facility] [address] [place] [address] 09891 Hematocrit (Bld) [Volume fraction] 34.8 % Normal 34.0-46.0 [facility] Comment on above: Performed By: #### 1 9345706, 4250193, 3161406, 8109761, 6963748, 9287371, 83823616, 0564309 #### [facility] [address] [place] [address] 11582 Hemoglobin (Bld) [Mass/Vol] 12.0 g/dL Normal 12.0-16.0 [facility] Comment on above: Performed By: #### 1 1726348, 5760059, 6818735, 0533988, 4352269, 9886401, 70222737, 1792316 #### [facility] [address] [place] [address] 77784 MCH (RBC) [Entitic mass] 30.5 pg Normal 27.0-34.0 [facility] Comment on above: Performed By: #### 1 6697007, 2142232, 7069299, 9422840, 5631703, 2498786, 66324484, 2660779 #### [facility] [address] [place] [address] 08346 MCHC (RBC) [Mass/Vol] 34.5 g/dL Normal 33.3-35.7 [facility] Comment on above: Performed By: #### 1 8493007, 9985789, 0117844, 7573986, 8578310, 4360612, 04899223, 3810281 #### [facility] [address] [place] [address] MCV (RBC) [Entitic vol] 88.6 fL Normal 80.0-100.0 [facility] Comment on above: Performed By: #### 1 3945006, 4340323, 8093989, 4740382, 0597013, 4328441, 72109539, 7336768 #### [facility] [address] [place] [address] Platelet mean volume (Bld) [Entitic vol] 7.9 fL Normal 6.4-10.8 [facility] Comment on above: Performed By: #### 1 6396686, 0463832, 2828602, 7334683, 7352148, 7287077, 26612187, 0455181 #### [facility] [address] [place], [place] [address] Platelets (Bld) [#/Vol] 256.0 E9/L Normal 150.0-500.0 [facility] Comment on above: Performed By: #### 1 3463446, 7609152, 2951521, 8548188, 8129848, 7523641, 82215411, 5877722 #### [facility] [address] [place] [address] 71575 RBC (Bld) [#/Vol] 3.9 E12/L Low 4.3-5.9 [facility] Comment on above: Performed By: #### 1 7761233, 6861444, 7240055, 0762217, 9439603, 6578871, 06689232, 8440010 #### [facility] [address] [place] [address] WBC corrected for nucl RBC Auto (Bld) [#/Vol] 7.8 E9/L Normal 4.0-11.0 [facility] Comment on above: Performed By: #### 1 0618046, 6143759, 5044365, 9178293, 3647300, 3368175, 60562526, 1432905 #### [facility] [address] [place] [address] Erythrocyte distribution width (RBC) [Ratio] 13.2 % Normal 10.9-14.2 [facility] Comment on above: Performed By: #### 1 8566190, 8315847, 3821213, 7399335, 8170570, 5326059, 86238686, 5999900 #### [facility] [address] [place] [address] Hematocrit (Bld) [Volume fraction] 38.9 % Normal 34.0-46.0 [facility] Comment on above: Performed By: #### 1 6503985, 7762227, 9654317, 5508638, 6895879, 6704106, 15830724, 5105391 #### [facility] [address] [place] [address] Hemoglobin (Bld) [Mass/Vol] 13.2 g/dL Normal 12.0-16.0 [facility] Comment on above: Performed By: #### 1 6610540, 6752881, 8649426, 8293831, 8986354, 1698927, 52040981, 9275961 #### [facility] [address] [place] [address] 91910 MCH (RBC) [Entitic mass] 30.0 pg Normal 27.0-34.0 [facility] Comment on above: Performed By: #### 1 1675529, 4087175, 8285374, 4292343, 9765448, 3683734, 80447685, 2107596 #### [facility] [address] [place] [address] MCHC (RBC) [Mass/Vol] 34.0 g/dL Normal 33.3-35.7 [facility] Comment on above: Performed By: #### 1 6081711, 3621858, 5253731, 2355613, 4451201, 4198582, 68593444, 6726124 #### [facility] [address] [place] [address] 57939 MCV (RBC) [Entitic vol] 88.1 fL Normal 80.0-100.0 [facility] Comment on above: Performed By: #### 1 3734015, 5315310, 3316454, 0518592, 9526688, 4732327, 69414376, 7469662 #### [facility] [address] [place] [address] 81064 Platelet mean volume (Bld) [Entitic vol] 8.3 fL Normal 6.4-10.8 [facility] Comment on above: Performed By: #### 1 9810971, 3967992, 8788325, 9495472, 0341530, 2266975, 18971157, 2069799 #### [facility] [address] [place] [address] 18031 Platelets (Bld) [#/Vol] 253.0 E9/L Normal 150.0-500.0 [facility] Comment on above: Result Comment: Slid e reviewed by CHARO. Performed By: #### 1 3099169, 6782117, 9154848, 1203483, 5852018, 8207964, 08354544, 9650252 #### [facility] [address] [place] [address] 32682 RBC (Bld) [#/Vol] 4.4 E12/L Normal 4.3-5.9 [facility] Comment on above: Performed By: #### 1 0842864, 2977267, 3506895, 1940179, 2489803, 3937097, 33693811, 7484669 #### [facility] [address] [place] [address] 09632 WBC corrected for nucl RBC Auto (Bld) [#/Vol] 13.0 E9/L High 4.0-11.0 [facility] Comment on above: Performed By: #### 1 1953459, 3459719, 3633214, 8228061, 7688605, 6873487, 20782012, 1011554 #### [facility] [address] [place] [address] Consultation Noteon 07-18-20 Consultation Note ACUTE CARE SURGERY H istory & Physical CHIEF COMPLAINT: epigastric pain HISTORY OF PRESENT ILLNESS: 33 y/o female w/ 1 day hx of epigastric pain radiating to RUQ. The pain is mild to moderate constant improved this am due to meds. It is associated w/ nausea no emesis. Of note she has had multiple bouts of pancreatitis over the last 3-4 months w/o clear etiology. Last admissionin April MRCP did not show stones or dilated duct. PAST MEDICAL HISTORY: recurring pancreatitis, morbid obesity PAST SURGICAL HISTORY: DIAGNOSTIC LAPAROSCOPY , DIAGNOSTIC HYSTEROSCOPY: 03/31/19 gastric sleeve: 2017 microdissectomy l4-6: 12/2016 PRE-ADMISSION MEDICATIONS: Home Medications (6) Active levothyroxine 50 mcg (0.05 mg) Tab 50 microgram = 1 tab(s), Oral, Daily loratadine 10 mg Tab 10 mg = 1 tab(s), Oral, Daily Multivitamins and Minerals 1 tab, Oral, Daily naltrexone See Instructions ranitidine 150 mg Tab 150 mg = 1 tab(s), Oral, BID Vitamin D3 5000 intl units oral capsule 5,000 International_Unit = 1 cap(s), Oral, Daily ALLERGIES: Pollen (Hayfever) Levaquin (Liver damage) SOCIAL HISTORY: Social & Psychosocial History Social History Alcohol Denies Alcohol Use (03/27/2019) Current Comment: Denies (07/17/2019 21:14 - Yaneli Dyson RN) Household alcohol concerns: No. Comment: The patient denies any alcohol use, tobacco use, or substance abuse. (04/21/2019 01:38 - Jeanette Parks RN) Substance Abuse Denies Substance Abuse (03/27/2019) Comment: Denies (07/17/2019 21:14 - Yaneli Dyson RN) IV drug use: No. Household substance abuse concerns: No. Tobacco Denies Tobacco Use (03/27/2019) Comment: Denies (07/17/2019 21:14 - Yaneli Dyson RN) Never (less than 100 in lifetime) Tobacco Use:. Never Smokeless Tobacco Use:. Household tobacco concerns: No. Psychosocial History No active psychosocial history has been recorded FAMILY HISTORY: Mother: Diabetes mellitus type 2; Thyroid cancer Sister: Thyroid cancer REVIEW OF SYSTEMS: Constitutional: no fever, no chills, no sweats, no weakness Skin: no Jaundice, no rash, no lesions, nopetechiae ENMT: no ear pain, no sore throat, no congestion, no hoarseness Respiratory: no shortness of breath, no cough, no orthopnea, no wheezing Cardiovascular: no chest pain, no palpitations, no edema Gastrointestinal: mild nausea, no vomiting, no diarrhea, no GI bleeding Genitourinary: no dysuria, no hematuria, no discharge, no pain Musculoskeletal: no back pain, no trauma Neurologic: no headache, no dizziness, no numbness, no weakness Psychiatric: no sleeping problems, no irritability, no mood swings/depression. Heme/Lymph: no bleeding tendency, no bruising tendency, no petechiae, no swollen nodes Allergy/Immunologic: no seasonal allergies, no food allergies, no recurrent infections, no impaired immunity Additional ROS info: Except as noted in the above Review of Systems and in the History of Present Illness all other systems have been reviewed and are negative or noncontributory. PHYSICAL EXAMINATION: Temperature 36.9 (07:40) Systolic Blood Pressure 146 (09:28) Diastolic Blood Pressure 96 (09:28) Pulse 68 (09:28) SpO2 98 (09:28) Respiratory Rate 18 (07:40) General: alert, no acute distress Skin: warm, dry Head: no trauma, normocephalic Neck: Trachea midline, no tenderness in cervical spine, no hematoma Eye: normal conjunctiva, sclera clear Cardiovascular: regular rate and rhythm, Radial/femoral/DP/PT pulses palpable b/l Respiratory: Lungs CTA, respirations non labored Chest wall: no deformity. no tenderness Gastrointestinal: soft, non distended, mild tenderness epigastric region, no guarding. Back: No tenderness, Normal alignment. Extremities: no deformity, no trauma Neurological: oriented x 4, GCS 15, motor strength equal & normal bilaterally, sensation equal & normal bilaterally, speech normal BASIC LABS: WBC: 7.8 E9/L (07/18/19 05:33:00 EDT) RBC: 3.9 E12/L Low (07/18/19 05:33:00 EDT) Hgb: 12 gm/dL (07/18/19 05:33:00 EDT) Hct: 34.8 % (07/18/19 05:33:00 EDT) MCV: 88.6 fL (07/18/19 05:33:00 EDT) MCH: 30.5 pg (07/18/19 05:33:00 EDT) MCHC: 34.5 gm/dL (07/18/19 05:33:00 EDT) RDW: 13.7 % (07/18/19 05:33:00 EDT) Platelet: 256 E9/L (07/18/19 05:33:00 EDT) MPV: 7.9 fL (07/18/19 05:33:00 EDT) Neutro Auto: 73.5 % (07/18/19 05:33:00 EDT) Lymph Auto: 19.3 % (07/18/19 05:33:00 EDT) Man[place]e Auto: 6.4 % (07/18/19 05:33:00 EDT) Eos Auto: 0.4 % (07/18/19 05:33:00 EDT) Basophil Auto: 0.4 % (07/18/19 05:33:00 EDT) Neutro Absolute: 5.7 E9/L (07/18/19 05:33:00 EDT) Lymph Absolute: 1.5 E9/L (07/18/19 05:33:00 EDT) Man[place]e Absolute: 0.5 E9/L (07/18/19 05:33:00 EDT) Eos Absolute: 0 E9/L (07/18/19 05:33:00 EDT) Basophil Absolute: 0 E9/L (07/18/19 05:33:00 EDT) PT: 11.9 second(s) (07/17/19 22:12:00 EDT) INR: 1 (07/17/19 22:12:00 EDT) PTT: 28.1 second(s) (07/17/19 22:12:00 EDT) Glucose Lvl: 104 mg/dL (07/18/19 05:33:00 EDT) BUN: 11 mg/dL (07/18/19 05:33:00 EDT) Creatinine: 0.5 mg/dL (07/18/19 05:33:00 EDT) eGFR: >60 (07/18/19 05:33:00 EDT) eGFR AA: >60 (07/18/19 05:33:00 EDT) BUN/Creat Ratio: 22 High (07/18/19 05:33:00 EDT) Sodium Lvl: 141 mmol/L (07/18/19 05:33:00 EDT) Potassium Lvl: 3.8 mmol/L (07/18/19 05:33:00 EDT) Chloride: 109 mmol/L (07/18/19 05:33:00 EDT) CO2: 24 mmol/L (07/18/19 05:33:00 EDT) AGAP: 12 mEq/L (07/18/19 05:33:00 EDT) Calcium Lvl: 8.8 mg/dL Low (07/18/19 05:33:00 EDT) Alk Phos: 61 Int._Unit/L (07/18/19 05:33:00 EDT) ALT: 119 Int._Unit/L High (07/18/19 05:33:00 EDT) AST: 106 Int._Unit/L High (07/18/19 05:33:00 EDT) Total Protein: 6 gm/dL (07/18/19 05:33:00 EDT) Albumin Lvl: 3.3 gm/dL (07/18/19 05:33:00 EDT) Globulin: 2.7 gm/dL (07/18/19 05:33:00 EDT) A/G Ratio: 1.2 (07/18/19 05:33:00 EDT) Bili Total: 3.6 mg/dL High (07/18/19 05:33:00 EDT) Bili Direct: 2 mg/dL High (07/18/19 05:33:00 EDT) Bili Indirect: 1.6 mg/dL High (07/18/19 05:33:00 EDT) Lipase Lvl: >396 High (07/18/19 05:33:00 EDT) Lactic Acid Lvl: 10.1 mg/dL (07/17/19 22:12:00 EDT) UA Spec Desc: Clean Catch (07/18/19 00:01:00 EDT) UA Color: Dark Yellow3 Abnormal (07/18/19 00:01:00 EDT) UA Clarity: Slightly Cloudy3 Abnormal (07/18/19 00:01:00 EDT) UA Spec Grav: >=1.030 (07/18/19 00:01:00 EDT) UA pH: 6.0 (07/18/19 00:01:00 EDT) UA Protein: Trace2 Abnormal (07/18/19 00:01:00 EDT) UA Glucose: NEGATIVE1 (07/18/19 00:01:00 EDT) UA Ketones: 3+ Abnormal (07/18/19 00:01:00 EDT) UA Bili: 3+ Abnormal (07/18/19 00:01:00 EDT) UA Blood: Trace2 Abnormal (07/18/19 00:01:00 EDT) UA Nitrite: NEGATIVE1 (07/18/19 00:01:00 EDT) UA Urobilinogen: 2.0 Abnormal (07/18/19 00:01:00 EDT) UA Leuk Est: Trace2 Abnormal (07/18/19 00:01:00 EDT) UA RBC: 4-20 (07/18/19 00:01:00 EDT) UA Squam Epithelial: 5-8 (07/18/19 00:01:00 EDT) UA WBC: 0-5 (07/18/19 00:01:00 EDT) UA Bacteria: 1+ Abnormal (07/18/19 00:01:00 EDT) UA Hyal Cast: 0-3 (07/18/19 00:01:00 EDT) UA Amorph Daisy: Present (07/18/19 00:01:00 EDT) UA Mucous: 3+ (07/18/19 00:01:00 EDT) U beta hCG Ql: Negative (07/18/19 00:01:00 EDT) RADIOLOGY: US: mild gallbladder wall thickening, CBD 9 mm, sludge/stones in GB, no pericholecystic fluid ASSESSMENT: gallstone pancreatitis, morbid obesity (s/p sleeve gastrectomy) PLAN: keep NPO IV fluid hydration repeat LFT and lipase in Am recommend GI consult for ERCP ok for clears post procedure from surgical standpoint, NPO after midnight for OR in am on 07/19 for laparoscopic cholecystectomy I had lengthy discussion with the patient regarding risk vs benefits of operative intervention. I explained that risks include but not limited to stomach/bowel injury, bleeding, post-operative superficial surgical site infection and deep organ space infection, bile leak and common bile duct/liver injury requiring potentially more complex operation and conversion to open procedure. Patient understood and consented to the procedure. Javan Goel MD, FACS Trauma/Critical Care/Acute Care Surgery Attending [facility] Comment on above: Result Comment: Elec tronically Signed By: Amando GUSTAFSON, Javan Stevens\.br\Date and Time Signed: 07/18/19 10:13 EDT Consultation Note Patient: CHERELLE SCHWARTZ Age: 33 years Sex: Female : 1985 Associated Diagnoses: None Author: Abhinav REDDY MD Chief Complaint 07/18/2019 01:04 EDT Abdominal pain 07/17/2019 20:59 EDT pt has complaints of abdominal pain nausea and vomiting since 2am, states lab work done at [place] today liver enzymes were elevated history of pancreatitis History of Present Illness 33 years old white female admitted to [facility] with sudden onset of abdominal pain, she had 2 prior episodes of similar presentations over the last 2 months where she was admitted with acute pancreatitis, that time MRCP was negative for cholelithiasis or choledocholithiasis, she also had negative workup for autoimmune pancreatitis, hypertriglyceridemia and she had no prior history of alcohol abuse, she was suspected that found to have 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 Eye: Negative. Ear/Nose/Mouth/Throat: Negative. Respiratory: Negative. Cardiovascular: Negative. Gastrointestinal: Nausea, Abdominal pain. Genitourinary: Negative. Gynecologic: Negative. Hematology/Lymphatics: Negative. Endocrine: Negative. Health Status Allergies: Allergic Reactions (Selected) Severe Pollen- Hayfever. Severity Not Documented Levaquin- Liver damage. Current medications: (Selected) Inpatient Medications Ordered Dilaudid 1 mg/mL injectable solution: 0.5 mg = 0.5 mL, Injection, IV Push, q4hr PRN Pain, Routine, Start date 07/18/19 8:47:00 EDT NS 1000 mL Soln-IV 1,000 mL: 1,000 mL, IV, 150 mL/hr, Routine, Start date 07/18/19 2:24:00 EDT, 6.7 hour(s), Total volume (mL): 1,000 Phenergan 25 mg/mL Injection: 12.5 mg = 0.5 mL, Injection, IV Push, q6hr PRN Nausea, Routine, Start date 07/18/19 2:24:00 EDT Sodium Chloride 0.9% IV Sherrie 1000 mL 1,000 mL: 1,000 mL, IV, 20 mL/hr, Routine, Start date 07/18/19 9:34:00 EDT, 50 hour(s), Total volume (mL): 1,000 Zofran 4 mg/2 mL Injection: 4 mg = 2 mL, Injection, IV Push, q6hr PRN Nausea, Routine, Start date 07/18/19 2:24:00 EDT hydrALAZINE 20 mg/mL Inj: 10 mg = 0.5 mL, Injection, IV Push, q6hr PRN Other (see comment), Routine, Start date 07/18/19 2:24:00 EDT influenza virus vaccine IM Sherrie FT Rule: 0.5 mL, Susp-Inj, IntraMuscular, Once PRN Other (see comment), Routine, Start date 07/18/19 1:13:44 EDT Documented Medications Documented Multivitamins and Minerals: 1 tab, Oral, Daily, Refill(s) 0, Prophylaxis Vitamin D3 5000 intl units oral capsule: 5,000 International_Unit = 1 cap(s), Oral, Daily, with food, # 100 cap(s), Refills(s) 0, Prophylaxis levothyroxine 50 mcg (0.05 mg) Tab: 50 microgram = 1 tab(s), Oral, Daily, Refills(s) 0, Thyroid loratadine 10 mg Tab: 10 mg = 1 tab(s), Oral, Daily, Refills(s) 0, Allergy symptoms naltrexone: See Instructions, 4.5 mg oral daily, Refills(s) 0 ranitidine 150 mg Tab: 150 mg = 1 tab(s), Oral, BID, Refills(s) 0, Control of stomach acid Problem list: All Problems Pancreatitis / SNOMED CT 484034452 / Confirmed Hypothyroidism / SNOMED CT 91802135 / Confirmed Ovarian dysfunction / SNOMED CT 28173746 / Confirmed Histories Past Medical History: No active or resolved past medical history items have been selected or recorded. Family History: Diabetes mellitus type 2 Mother Thyroid cancer Mother Sister Social History Social & Psychosocial Habits Alcohol 03/27/2019 Risk Assessment: Denies Alcohol Use 04/21/2019 Concerns about alcohol use in household: No Comment: The patient denies any alcohol use, tobacco use, or substance abuse. - 04/21/2019 01:38 - Jeanette Parks RN 07/17/2019 Use: Current Comment: Denies - 07/17/2019 21:14 Yaneli Bishop RN Substance Abuse 03/27/2019 Risk Assessment: Denies Substance Abuse 04/21/2019 IV drug use: No Concerns about substance abuse in household: No Comment: Denies - 07/17/2019 21:14 Yaneli Bishop RN Tobacco 03/27/2019 Risk Assessment: Denies Tobacco Use 06/12/2019 Tobacco Use: Never (less than 100 in l Smokeless tobacco use: Never Concerns about tobacco use in household: No Comment: Denies - 07/17/2019 21:14 Yaneli Bishop RN. Physical Examination Vital Signs (last 24 hrs) Last Charted Temp Oral 36.9 DegC (JUL 18:40) Heart Rate Peripheral 67 bpm (JUL 18 05:00) Resp Rate 18 br/min (JUL 18:40) SBP H 146mmHg (JUL 18:) DBP H 96mmHg (JUL 18:) SpO2 98 % (JUL 18:) Weight 108.9 kg (JUL 18:) Height 184 cm (JUL 18:) BMI 32.2 (JUL 18) General: Alert and oriented. Neck: Supple. Respiratory: Lungs are clear to auscultation. Cardiovascular: Normal rate. Gastrointestinal: Soft, Normal bowel sounds, No organomegaly, Epigastric tenderness, no rebound or guarding. Musculoskeletal No swelling. Review / Management Results review: Lab results 07/18/2019 05:33 EDT WBC 7.8 E9/L RBC 3.9 E12/L LOW Hgb 12.0 gm/dL Hct 34.8 % MCV 88.6 fL MCH 30.5 pg MCHC 34.5 gm/dL RDW 13.7 % Platelet 256.0 E9/L MPV 7.9 fL Neutro Auto 73.5 % Lymph Auto 19.3 % [place] Auto 6.4 % Eos Auto 0.4 % Basophil Auto 0.4 % Neutro Absolute 5.7 E9/L Lymph Absolute 1.5 E9/L [place] Absolute 0.5 E9/L Eos Absolute 0.0 E9/L Basophil Absolute 0.0 E9/L Glucose Lvl 104 mg/dL BUN 11 mg/dL Creatinine 0.5 mg/dL eGFR >60 mL/min/1.73 m2 eGFR AA >60 mL/min/1.73 m2 BUN/Creat Ratio 22 HI Sodium Lvl 141 mmol/L Potassium Lvl 3.8 mmol/L Chloride 109 mmol/L CO2 24 mmol/L AGAP 12 mEq/L Calcium Lvl 8.8 mg/dL LOW Alk Phos 61 Int._Unit/L ALT 119 Int._Unit/L HI AST 106 Int._Unit/L HI Total Protein 6.0 gm/dL Albumin Lvl 3.3 gm/dL Globulin 2.7 gm/dL A/G Ratio 1.2 Bili Total 3.6 mg/dL HI Bili Direct 2.0 mg/dL HI Bili Indirect 1.6 mg/dL HI Lipase Lvl >396 unit/L HI 07/18/2019 00:01 EDT UA Spec Desc Clean Catch UA Color Dark Yellow UA Clarity Slightly Cloudy UA Spec Grav >=1.030 UA pH 6.0 UA Protein Trace UA Glucose Negative UA Ketones 3+ UA Bili 3+ UA Blood Trace UA Nitrite Negative UA Urobilinogen 2.0 EU/dL UA Leuk Est Trace UA RBC 4-20 /HPF UA Squam Epithelial 5-8 /HPF UA WBC 0-5 /HPF UA Bacteria 1+ /HPF UA Hyal Cast 0-3 UA Amorph Daisy Present UA Mucous 3+ U beta hCG Ql Negative 07/17/2019 22:12 EDT WBC 13.0 E9/L HI RBC 4.4 E12/L Hgb 13.2 gm/dL Hct 38.9 % MCV 88.1 fL MCH 30.0 pg MCHC 34.0 gm/dL RDW 13.2 % Platelet 253.0 E9/L MPV 8.3 fL Neutro Auto 87.2 % HI Lymph Auto 6.4 % LOW [place] Auto 5.5 % Eos Auto 0.6 % Basophil Auto 0.3 % Neutro Absolute 11.3 E9/L HI Lymph Absolute 0.8 E9/L LOW [place] Absolute 0.7 E9/L Eos Absolute 0.1 E9/L Basophil Absolute 0.0 E9/L PT 11.9 second(s) INR 1.0 NA PTT 28.1 second(s) Glucose Lvl 107 mg/dL BUN 13 mg/dL Creatinine 0.5 mg/dL eGFR >60 mL/min/1.73 m2 eGFR AA >60 mL/min/1.73 m2 BUN/Creat Ratio 26 HI Sodium Lvl 140 mmol/L Potassium Lvl 3.7 mmol/L Chloride 105 mmol/L CO2 26 mmol/L AGAP 13 mEq/L Calcium Lvl 9.3 mg/dL Alk Phos 69 Int._Unit/L ALT 144 Int._Unit/L HI AST 179 Int._Unit/L HI Total Protein 6.5 gm/dL Albumin Lvl 3.8 gm/dL Globulin 2.7 gm/dL A/G Ratio 1.4 Bili Total 3.6 mg/dL HI Bili Direct 2.1 mg/dL HI Bili Indirect 1.5 mg/dL HI Lipase Lvl >396 unit/L HI Lactic Acid Lvl 10.1 mg/dL . Impression and Plan 33 years old white female admitted with severe epigastric pain associated with pancreatic enzymes and LFTs elevation, she had 2 similar presentations over the last 2 months, at that time MRCP was negative for cholelithiasis or choledocholithiasis but this admission gallbladder ultrasound showed dilated CBD at 9 mm, her presentation is consistent with biliary pancreatitis, no evidence of cholangitis, we will proceed with ERCP given her CBD dilation and elevated LFTs and pancreatic enzymes, patient will also need cholecystectomy, case discussed with surgery. Detailed discussion was also made with the patient about the potential complications of ERCP including post-ERCP severe pancreatitis, bleeding, perforation, and sedation related complications, she agreed to proceed [facility] Comment on above: Result Comment: Elec tronically Signed By: CAPRICE GUSTAFSON, Abhinav\.br\Date and Time Signed: 07/18/19 10:01 EDT ED Clinical Summaryon 2018 ED Clinical Summary (Inserted Image. Sachi ble to display) [place] [id number] ED Clinical Summary Person Information Name: SUKHDEV SCHWARTZ [place] Age: 33 Years : 1985 12:00 AM Sex: Female Language: Palestinian PCP: LOLI MATIAS MD Marital Status: Phone: [phone] Visit Id: Visit Reason: Vomiting; Nausea; Abdominal pain; ABD PAIN, NAUSEA Speciality: Acuity: 3 Enc Type: Emergency Med Service: Emergency Arrival: 07/17/2019 8:55 PM Discharge: LOS: 000 03:53 Checkin: 07/17/2019 8:55 PM Checkout: 07/18/2019 12:48 AM Dispo Type: Admitted as IP to this [facility] EVENTS: Event Name Event Status Request Date/Time Start Date/Time Complete Date/Time Arrive Complete 07/17/2019 8:55 PM 07/17/2019 8:55 PM 07/17/2019 8:55 PM Document Home Meds Request 07/17/2019 8:55 PM Triage Complete 07/17/2019 8:55 PM 07/17/2019 9:02 PM 07/17/2019 9:02 PM Bed Assign Complete 07/17/2019 9:02 PM 07/17/2019 9:02 PM 07/17/2019 9:[address] Exam Complete 07/17/2019 9:02 PM 07/17/2019 9:52 PM 07/17/2019 9:52 PM RN Exam Complete 07/17/2019 9:02 PM 07/17/2019 9:14 PM 07/17/2019 9:14 PM Registration Complete 07/17/2019 9:52 PM 07/17/2019 10:20 PM 07/17/2019 10:20 PM US Complete 07/17/2019 10:03 PM 07/17/2019 10:46 PM 07/17/2019 11:11 PM Meds Admin Complete 07/17/2019 10:03 PM 07/17/2019 11:03 PM Pending Labs Complete 07/17/2019 10:03 PM 07/18/2019 12:24 AM Lab Complete 07/17/2019 10:03 PM 07/18/2019 12:24 AM Urine Collect Complete 07/17/2019 10:03 PM 07/18/2019 12:24 AM Patient Care Request 07/17/2019 10:03 PM Pending Labs Complete 07/17/2019 10:18 PM 07/17/2019 10:18 PM 07/17/2019 10:58 PM Lab Complete 07/17/2019 10:18 PM 07/17/2019 10:18 PM 07/17/2019 10:58 PM Reg Complete Request 07/17/2019 10:20 PM Reg Bed Request Complete 07/17/2019 10:20 PM 07/17/2019 10:20 PM 07/17/2019 10:20 PM Pending Labs Complete 07/17/2019 10:43 PM 07/17/2019 10:43 PM 07/17/2019 10:43 PM Lab Complete 07/17/2019 10:43 PM 07/17/2019 10:43 PM 07/17/2019 10:43 PM Meds Admin Complete 07/17/2019 11:49 PM 07/17/2019 11:[address] Exam Complete 07/18/2019 12:17 AM 07/18/2019 12:17 AM 07/18/2019 12:17 AM Registration Request 07/18/2019 12:17 AM Inpatient Bed Ready Complete 07/18/2019 12:48 AM 07/18/2019 12:48 AM 07/18/2019 12:48 AM ADDRESS: [facility] [address] [place] [id number] [facility] DOC NOTES: MEDICAL INFORMATION: Prescriptions Given: PATIENT EDUCATION INFORMATION: Instructions: Follow up: DIAGNOSIS: [facility] ED Patient Education Noteon 07-18-2019 ED Patient Education Note [facility] ED Patient Summaryon ED Patient Summary (Inserted Image. Sachi ble to display) [address] [address] Patient Discharge Instructions Person Information Name: SUKHDEV SCHWARTZ Age: 33 Years Arrival Date: 07/17/2019 8:55 PM Discharge Diagnosis: Primary Care Physician: LOLI MATIAS MD Provider Information Primary Provider: Rubio MD, Mehran [employer] Machine Operator:Oswaldo Fischer PA-C The exam and treatment you received in the Emergency Department were for an urgent problem and are not intended as complete care. It is important that you follow up with a doctor, nurse practitioner, or physician?s bankruptcy assistant for ongoing care. If your symptoms become worse or you do not improve as expected and you are unable to reach your usual health care provider, you should return to the Emergency Department. We are available 24 hours a day. JAMES SUKHDEV F has been given the following list of patient education materials, prescriptions and follow-up instructions: Follow-up Instructions: In the event that this physician does not participate in your insurance network, please consult with your insurance company to find a nearby participating provider. Patient Education Materials: A MESSAGE TO ALL PATIENTS REGARDING OPIOIDS PRESCRIPTION OPIOIDS: WHAT YOU NEED TO KNOW Prescription opioids can be used to help relieve rqgloxig-an-jvzdgl pain and are often prescribed following a surgery or injury, or for certain health conditions. These medications can be an important part of the treatment but also come with serious risks. It is important to work with your healthcare provider to make sure you are getting the safest, most effective care. WHAT ARE THE RISKS AND SIDE EFFECTS OF OPIOID USE? Prescription opioids carry serious risks of addiction and overdose, especially with prolonged use. An opioid overdose, often marked by slowed breathing, can cause sudden . The use of prescription opioids can have a number of side effects as well, even when taken as directed: ? Tolerance?meaning you might need to take more of the medication for the same pain relief ? Physical dependence?meaning you have symptoms of withdrawal when a medication is stopped ? Increased sensitivity to pain ? Constipation ? Nausea, vomiting, and dry mouth ? Sleepiness and dizziness ? Confusion ? Depression ? Low levels of testosterone that can result in lower sex drive, energy, and strength ? Itching and sweating RISKS ARE GREATER WITH: ? History of drug misuse, substance use disorder, or overdose ? Mental health conditions (such as depression or anxiety) ? Sleep apnea ? Older age (65 years and older) ? Avoid alcohol while taking prescription opioids. Also, unless specifically advised by your health care provider, medications to avoid include: ? Benzodiazepines (such as Xanax or Valium) ? Muscle relaxants (such as Soma or Flexeril) ? Hypnotics (such as Ambien or Lunesta) ? Other prescription opioids KNOW YOUR OPTIONS Talk to your health care provider about ways to manage your pain that don?t involve prescription opioids. Some of these options may actually work better and have fewer risks and side effects. Options may include: ? Pain relievers such as acetaminophen, ibuprofen, and naproxen ? Some medication that are also used for depression or seizures ? Physical therapy and exercise ? Cognitive behavioral therapy, a psychological, goal-directed approach, in which patients learn how to modify physical, behavioral, and emotional triggers of pain and stress. IF YOU ARE PRESCRIBED OPIOIDS FOR PAIN: ? Never take opioids in greater amounts or more often than prescribed. ? Follow up with your primary health care provider. o Work together to create a plan on how to manage your pain. o Talk about ways to help manage your pain that don?t involve prescription opioids. o Talk about any and all concerns and side effects. ? Help prevent misuse and abuse o Never sell or share prescription opioids. o Never use another person?s prescription opioids. ? Store prescription opioids in a secure place and out of reach of others (this may include visitors, children, friends, and family). ? Safely dispose of unused prescription opioids: Find your community drug take-back program or your pharmacy mail-back program, or flush them down the toilet, following guidance from the Food and Drug Administration (www.fda.gov/Drugs/Resourc esForYou). ? Visit www.cdc.gov/drugoverdose to learn about the risks of opioids abuse and overdose. ? If you believe you may be struggling with addiction, tell your health day care worker and ask for guidance or call [facility]?S National Helpline at 6-490-106-BSEG. v Source: US Department of Health and Human Services/Center for Disease Control & Prevention [facility] Medications Given: Medication Dose Route Sodium Chloride 0.9% intravenous solution 1000.00 mL Initial Volume 1000.00 mL/hr IV Left Antecubital [place] morphine 4.00 mg IV Push Left Anterior Chest ondansetron 4.00 mg IV Push Left Antecubital Ana nalbuphine 5.00 mg IV Push Left Antecubital [place] Medication Information: Medications to Continue with No Changes Other Medications cholecalciferol (Vitamin D3 5000 intl units oral capsule) 1 Capsules By Mouth every day. with food. hydrocodone (HYDROcodone 10 mg oral capsule, extended release) By Mouth every 12 hours. levothyroxine (levothyroxine 50 mcg (0.05 mg) Tab) 1 Tabs By Mouth every day. loratadine (loratadine 10 mg Tab) 1 Tabs By Mouth every day. multivitamin with minerals (Multivitamins and Minerals) 1 tab By Mouth every day. naltrexone 4.5 mg oral daily. ranitidine (ranitidine 150 mg Tab) 1 Tabs By Mouth 2 times a day. Comment: Pharmacy Information: [facility] [place] Thank you for choosing [facility] Patient Education Materials: JAMES Bain BRITTANY F , have received the following patient education materials/instructions and have verbalized understanding: Patient Education Materials: Follow-up Instructions: Prescriptions: Patient Signature __ Date Clinician/Nurse Signature Date 07/18/19 00:48:50 [facility] Hep Func Panelon 07-18-2019 Albumin [Mass/Vol] 1.2 g/dL Normal 1.1-2.2 [facility] Comment on above: Performed By: #### 1 [id number], 5181300, 4837809, 5354219, 0442932, 4550898, 02875294, 1611662 #### [facility] [address] [place] [address] ALP [Catalytic activity/Vol] 61 Int._Unit/L Normal 21-98 [facility] Comment on above: Performed By: #### 1 [id number], 9684919, 0758189, 1299459, 9363073, 9414727, 75301440, 0818416 #### [facility] [address] [place] [address] ALT No additional P-5'-P [Catalytic activity/Vol] 119 Int._Unit/L High 6-46 [facility] Comment on above: Performed By: #### 1 [id number], 6061896, 3046344, 4402525, 0059318, 2171451, 57378394, 0397223 #### [facility] [address] [place] [address] AST [Catalytic activity/Vol] 106 Int._Unit/L High 5-43 [facility] Comment on above: Performed By: #### 1 4205096, 7717972, 7374531, 4172854, 1968472, 4154354, 66169425, 5265374 #### [facility] [address] [place] [address] Bilirubin.direct [Mass/Vol] 1.6 mg/dL High 0.1-0.9 [facility] Comment on above: Performed By: #### 1 9948637, 5083699, 0375987, 8840949, 2927727, 9921795, 96508093, 0012907 #### [facility] [address] [place] [address] Globulin (S) [Mass/Vol] 2.7 g/dL Normal 1.4-4.0 [facility] Comment on above: Performed By: #### 1 2316866, 6781786, 1829115, 5166617, 3291213, 1510815, 58175447, 4308728 #### [facility] [address] [place] [address] Albumin [Mass/Vol] 3.3 g/dL Normal 3.3-5.0 [facility] Comment on above: Performed By: #### 1 6541445, 8363963, 8371829, 4945380, 7550786, 5818048, 81450411, 2587906 #### [facility] [address] [place] [address] Bilirubin [Mass/Vol] 3.6 mg/dL High 0.0-1.1 [facility] Comment on above: Performed By: #### 1 5204682, 3620791, 9528327, 1457811, 5164003, 1133976, 60354079, 2589120 #### [facility] [address] [place] [address] Bilirubin.direct [Mass/Vol] 2.0 mg/dL High 0.1-0.4 [facility] Comment on above: Performed By: #### 1 2859691, 9853893, 5629970, 3672879, 1718509, 3603450, 83644452, 3903120 #### [facility] [address] [place] [address] Protein [Mass/Vol] 6.0 g/dL Normal 6.0-7.8 [facility] Comment on above: Performed By: #### 1 4914771, 7159636, 9612297, 4659524, 7143589, 3669168, 61778213, 3276653 #### [facility] [address] [place] [address] Albumin [Mass/Vol] 3.8 g/dL Normal 3.3-5.0 [facility] Comment on above: Performed By: #### 1 4152649, 5543416, 2197112, 0357734, 0372525, 3157247, 85846952, 3279581 #### [facility] [address] [place] [address] Albumin [Mass/Vol] 1.4 g/dL Normal 1.1-2.2 [facility] Comment on above: Performed By: #### 1 5861804, 7507366, 0934591, 7369606, 8129538, 6294962, 64819717, 3442322 #### [facility] [address] [place] [address] ALP [Catalytic activity/Vol] 69 Int._Unit/L Normal 21-98 [facility] Comment on above: Performed By: #### 1 5187592, 9503752, 9601281, 2007941, 0173050, 9814440, 97577705, 8017035 #### [facility] [address] [place] [address] ALT No additional P-5'-P [Catalytic activity/Vol] 144 Int._Unit/L High 6-46 [facility] Comment on above: Performed By: #### 1 2621690, 2361882, 1682707, 2908185, 1707963, 8001920, 77897286, 2264041 #### [facility] [address] [place] [address] AST [Catalytic activity/Vol] 179 Int._Unit/L High 5-43 [facility] Comment on above: Performed By: #### 1 6954538, 5277419, 0988346, 3246574, 3884819, 7962990, 89384722, 2974097 #### [facility] [address] [place] [address] Bilirubin [Mass/Vol] 3.6 mg/dL High 0.0-1.1 [facility] Comment on above: Performed By: #### 1 3949171, 6606091, 0098534, 8167313, 6579671, 7434871, 24451581, 1289223 #### [facility] [address] [place] [address] Bilirubin.direct [Mass/Vol] 1.5 mg/dL High 0.1-0.9 [facility] Comment on above: Performed By: #### 1 0158078, 9412474, 6967539, 6592715, 4464076, 5914979, 94805386, 7439218 #### [facility] [address] [place] [address] Bilirubin.direct [Mass/Vol] 2.1 mg/dL High 0.1-0.4 [facility] Comment on above: Performed By: #### 1 0218343, 0638214, 0273730, 8337562, 4471604, 5429901, 83592955, 1643395 #### [facility] [address] [place] [address] Globulin (S) [Mass/Vol] 2.7 g/dL Normal 1.4-4.0 [facility] Comment on above: Performed By: #### 1 3863650, 8014526, 1036881, 1234246, 0712820, 3801067, 58170126, 7012243 #### [facility] [address] [place] [address] Protein [Mass/Vol] 6.5 g/dL Normal 6.0-7.8 [facility] Comment on above: Performed By: #### 1 9857126, 9655270, 9896414, 7169136, 6043735, 8906520, 80414862, 8373017 #### [facility] [address] [place] [address] History and Physicalon 07-18 History and Physical Chief Complaint Abdominal pain History of Present Illness Patient is a pleasant obese 33-year-old white female with past medical history significant for a hospitalization here in April where she was treated for pancreatitis. Differential includes drug induced hepatitis/pancreatitis versus passed stone for imaging at that time demonstrated no obstructive pathology. Patient states she had a hospitalization while in [place] last month with the same was considered she does have a past medical history of gastric sleeve placement in 2017, hypothyroidism and primary instrumentation for herniated disc in 2016 patient presented to the emergency department with below Patient starts yesterday morning at approximately 2 AM she developed epigastric pain. She ended up becoming nauseated and experiencing dry heaves. Her last meal prior to that was 10 PM. She saw her primary care physician the next day i.e. Wednesday and blood work was obtained demonstrating elevated liver function studies. The original plan was to do an outpatient computed tomography scan. Patient states however his symptoms intensified and recurred worsened after a meal. She does state that her urine is looking dark orange-like but denies any yellow or lenny colored stools. She denies any fevers or chills Review of Systems Constitutional: no fever, no chills, no sweats, no weakness Respiratory: no shortness of breath, no cough, no orthopnea, no wheezing Cardiovascular: no chest pain, no palpitations, no edema Denies any headache, sore throat or sinus pressure. Abdomen?as suggested epigastric discomfort denies any diarrhea admits to nausea but no vomiting Genitourinary?denies any dysuria or urgency Neurologic?denies any focal motor or sensory deficits Additional ROS info: Except as noted in the above Review of Systems and in the History of Present Illness all other systems have been reviewed and are negative or noncontributory. Physical Exam Vitals & Measurements T: 37.0 ?C (Oral) TMIN: 36.7 ?C (Oral) TMAX: 37.0 ?C (Oral) HR: 64(Peripheral) RR: 16 BP: 125/84 SpO2: 99% WT: 109.0 kg General: alert, no acute distress Skin: warm, dry Head: no trauma, normocephalic Neck: Trachea midline, no adenopathy, no tenderness Eye: normal conjunctiva, sclera clear ENMT: TM's clear, oral mucosa moist, no pharyngeal erythema or exudate Cardiovascular: regular rate and rhythm, normal peripheral perfusion Respiratory: Lungs CTA, respirations non labored Chest wall: no deformity. Gastrointestinal: soft, non distended, epigastric tenderness , no guarding.No rebound Osteopathic exam - Pt was examined in supine and seated positions. Pt with diminished lumbar lordosis, increased thoracic kyphosis. No profound scoliosis. Extremities: no deformity, no trauma Neurological: oriented x 4, LOC appropriate for age, , motor strength equal & normal bilaterally, sensation equal & normal bilaterally, speech normal Psychiatric: cooperative, affect appropriate for age, normal judgement, normal psychiatric thoughts. Lab Results WBC: 13 E9/L High (07/17/19 22:12:00 EDT) RBC: 4.4 E12/L (07/17/19 22:12:00 EDT) Hgb: 13.2 gm/dL (07/17/19 22:12:00 EDT) Hct: 38.9 % (07/17/19 22:12:00 EDT) MCV: 88.1 fL (07/17/19 22:12:00 EDT) MCH: 30 pg (07/17/19 22:12:00 EDT) MCHC: 34 gm/dL (07/17/19 22:12:00 EDT) RDW: 13.2 % (07/17/19 22:12:00 EDT) Platelet: 253 E9/L (07/17/19 22:12:00 EDT) MPV: 8.3 fL (07/17/19 22:12:00 EDT) Neutro Auto: 87.2 % High (07/17/19 22:12:00 EDT) Lymph Auto: 6.4 % Low (07/17/19 22:12:00 EDT) [place] Auto: 5.5 % (07/17/19 22:12:00 EDT) Eos Auto: 0.6 % (07/17/19 22:12:00 EDT) Basophil Auto: 0.3 % (07/17/19 22:12:00 EDT) Neutro Absolute: 11.3 E9/L High (07/17/19 22:12:00 EDT) Lymph Absolute: 0.8 E9/L Low (07/17/19 22:12:00 EDT) [place] Absolute: 0.7 E9/L (07/17/19 22:12:00 EDT) Eos Absolute: 0.1 E9/L (07/17/19 22:12:00 EDT) Basophil Absolute: 0 E9/L (07/17/19 22:12:00 EDT) PT: 11.9 second(s) (07/17/19 22:12:00 EDT) INR: 1 (07/17/19 22:12:00 EDT) PTT: 28.1 second(s) (07/17/19 22:12:00 EDT) Glucose Lvl: 107 mg/dL (07/17/19 22:12:00 EDT) BUN: 13 mg/dL (07/17/19 22:12:00 EDT) Creatinine: 0.5 mg/dL (07/17/19 22:12:00 EDT) eGFR: >60 (07/17/19 22:12:00 EDT) eGFR AA: >60 (07/17/19 22:12:00 EDT) BUN/Creat Ratio: 26 High (07/17/19 22:12:00 EDT) Sodium Lvl: 140 mmol/L (07/17/19 22:12:00 EDT) Potassium Lvl: 3.7 mmol/L (07/17/19 22:12:00 EDT) Chloride: 105 mmol/L (07/17/19 22:12:00 EDT) CO2: 26 mmol/L (07/17/19 22:12:00 EDT) AGAP: 13 mEq/L (07/17/19 22:12:00 EDT) Calcium Lvl: 9.3 mg/dL (07/17/19 22:12:00 EDT) Alk Phos: 69 Int._Unit/L (07/17/19 22:12:00 EDT) ALT: 144 Int._Unit/L High (07/17/19 22:12:00 EDT) AST: 179 Int._Unit/L High (07/17/19 22:12:00 EDT) Total Protein: 6.5 gm/dL (07/17/19 22:12:00 EDT) Albumin Lvl: 3.8 gm/dL (07/17/19 22:12:00 EDT) Globulin: 2.7 gm/dL (07/17/19 22:12:00 EDT) A/G Ratio: 1.4 (07/17/19 22:12:00 EDT) Bili Total: 3.6 mg/dL High (07/17/19 22:12:00 EDT) Bili Direct: 2.1 mg/dL High (07/17/19 22:12:00 EDT) Bili Indirect: 1.5 mg/dL High (07/17/19 22:12:00 EDT) Lipase Lvl: >396 High (07/17/19 22:12:00 EDT) Lactic Acid Lvl: 10.1 mg/dL (07/17/19 22:12:00 EDT) UA Spec Desc: Clean Catch (07/18/19 00:01:00 EDT) UA Color: Dark Yellow3 Abnormal (07/18/19 00:01:00 EDT) UA Clarity: Slightly Cloudy3 Abnormal (07/18/19 00:01:00 EDT) UA Spec Grav: >=1.030 (07/18/19 00:01:00 EDT) UA pH: 6.0 (07/18/19 00:01:00 EDT) UA Protein: Trace2 Abnormal (07/18/19 00:01:00 EDT) UA Glucose: NEGATIVE1 (07/18/19 00:01:00 EDT) UA Ketones: 3+ Abnormal (07/18/19 00:01:00 EDT) UA Bili: 3+ Abnormal (07/18/19 00:01:00 EDT) UA Blood: Trace2 Abnormal (07/18/19 00:01:00 EDT) UA Nitrite: NEGATIVE1 (07/18/19 00:01:00 EDT) UA Urobilinogen: 2.0 Abnormal (07/18/19 00:01:00 EDT) UA Leuk Est: Trace2 Abnormal (07/18/19 00:01:00 EDT) UA RBC: 4-20 (07/18/19 00:01:00 EDT) UA Squam Epithelial: 5-8 (07/18/19 00:01:00 EDT) UA WBC: 0-5 (07/18/19 00:01:00 EDT) UA Bacteria: 1+ Abnormal (07/18/19 00:01:00 EDT) UA Hyal Cast: 0-3 (07/18/19 00:01:00 EDT) UA Amorph Daisy: Present (07/18/19 00:01:00 EDT) UA Mucous: 3+ (07/18/19 00:01:00 EDT) U beta hCG Ql: Negative (07/18/19 00:01:00 EDT) Diagnostic Results Though the official report is not on the chart below is what was passed on to me as report from radiology The gallbladder is distended with multiple layering intraluminal stones. Mild gallbladder wall thickening measuring 4 mm. No dorothy-cholecystectomy free fluid Assessment/Plan 1. Acute gallstone pancreatitis Will hydrate aggressively, repeat lipase in the a.m., keep patient nothing by mouth. We'll consult with gastroenterology for ?ERCP . Dr. Goel on-call for general surgery has been made aware and agrees to be on consult Ordered: nalbuphine, 10 mg = 1 mL, Injection, IV Push, q4hr PRN Pain, Routine, Start date 07/18/19 2:23:00 EDT Consult to GI Lipase Level 2. Abnormal LFTs Secondary to below. Repeat liver function studies in the a.m. Ordered: Consult to GI Hepatic Function Panel 3. Common bile duct obstruction As suggested above consult with gastroenterology Ordered: Consult to GI 4. History of bariatric surgery Patient had a gastric sleeve 5. Hypothyroidism The patient's nothing by mouth status becomes prolonged can consider supplementation intravenously with an approximate dose of 50% of the oral dose 6. History of herniated intervertebral disc Not presently symptomatic 7. Obesity Note patient had in 2017 and a gastric sleeve Orders: hydrALAZINE, 10 mg = 0.5 mL, Injection, IV Push, q6hr PRN Other (see comment), Routine, Start date 07/18/19 2:24:00 EDT ondansetron, 4 mg = 2 mL, Injection, IV Push, q6hr PRN Nausea, Routine, Start date 07/18/19 2:24:00 EDT promethazine, 12.5 mg = 0.5 mL, Injection, IV Push, q6hr PRN Nausea, Routine, Start date 07/18/19 2:24:00 EDT Sodium Chloride 0.9% intravenous solution 1,000 mL, 1,000 mL, IV, 150 mL/hr, Routine, Start date 07/18/19 2:24:00 EDT, 6.7 hour(s), Total volume (mL): 1,000 Basic Metabolic Panel CBC w/ Auto Diff Notify Provider Vital Signs Notify Provider Vital Signs NPO Diet Place in Status Up ad Jaki Vital Signs Weight Will admit patient is a general inpatient with the anticipation she'll require greater than 2 midnight stay Problem List/Past Medical History Ongoing Pancreatitis Historical No qualifying data Procedure/Surgical History DIAGNOSTIC LAPAROSCOPY , DIAGNOSTIC HYSTEROSCOPY (03/31/2019), microdissectomy l4-6 (12/2016), gastric sleeve (2016). Medications Inpatient hydrALAZINE 20 mg/mL Inj, 10 mg= 0.5 mL, IV Push, q6hr, PRN influenza virus vaccine IM Sherrie FT Rule, 0.5 mL, IntraMuscular, Once nalbuphine 10 mg/mL Inj 1 mL, 10 mg= 1 mL, IV Push, q4hr, PRN NS 1000 mL Soln-IV 1,000 mL, 1000 mL, IV Phenergan 25 mg/mL Injection, 12.5 mg= 0.5 mL, IV Push, q6hr, PRN Zofran 4 mg/2 mL Injection, 4 mg= 2 mL, IV Push, q6hr, PRN Home HYDROcodone 10 mg oral capsule, extended release, Oral, q12hr levothyroxine 50 mcg (0.05 mg) Tab, 50 microgram= 1 tab(s), Oral, Daily loratadine 10 mg Tab, 10 mg= 1 tab(s), Oral, Daily Multivitamins and Minerals, 1 tab, Oral, Daily naltrexone, See Instructions ranitidine 150 mg Tab, 150 mg= 1 tab(s), Oral, BID Vitamin D3 5000 intl units oral capsule, 5000 International_Unit= 1 cap(s), Oral, Daily Allergies Pollen (Hayfever) Levaquin (Liver damage) Social History Alcohol - Denies Alcohol Use, 03/27/2019 Current, 07/17/2019 Household alcohol concerns: No., 04/21/2019 Substance Abuse - Denies Substance Abuse, 03/27/2019 IV drug use: No. Household substance abuse concerns: No., 04/21/2019 Tobacco - Denies Tobacco Use, 03/27/2019 Never (less than 100 in lifetime) Tobacco Use:. Never Smokeless Tobacco Use:. Household tobacco concerns: No., 06/12/2019 Family History Diabetes mellitus type 2: Mother. Thyroid cancer: Mother and Sister. [facility] Comment on above: Result Comment: Elec tronically Signed By: Aron ALVARADO DO\.br\Date and Time Signed: 07/18/19 02:27 EDT Interdisciplinary Note - Arcadio e Manageron 07-18-2019 INR Coag (Bld) [Relative time] Rounding with Dr. Benjamin, Felicia ACEVEDO, Rosie [facility], and Jeanette GOODRICH with another patient. No family in room. Patient is alert and oriented and participates in plan of care. Whiteboard updated. discussed will have GI see today and plan is to have ERCP today if possible, and DR Sandie Goel will also see as she may need to have gallbladder removed. Patient C/O 8/10 pain and ask to have Dilaudid as morphine makes her sick. will stay today. 1155- returned to room and spoke with patient, verified PCP and insurance. patient states ERCP was done and they retrieved or removed a stone and plan is to have Gallbladder removed tomorrow at 12 noon. patient denies any needs at discharge. lives with spouse. Normal [facility] Lactic Acidon 07-18-2019 Lactate [Mass/Vol] 10.1 mg/dL Normal 4.5-19.8 [facility] Comment on above: Performed By: #### 1 [id number], [id number], 8682757, [id number], [id number], [id number] #### [facility] [address] [place] [address] Lipase Levelon 07-18-2019 Lipase [Catalytic activity/Vol] U/L High 13-58 [facility] Comment on above: Result Comment: Resu lt verified by dilution Performed By: #### 1 [id number], [id number], [id number], [id number], [id number], [id number] #### [facility] [address] [place] [address] Main OR Intraoperative Recor don 07-18-2019 Main OR Intraoperative Record IntraOp Document Type FT Summary Primary Physician: Abhinav REDDY MD Finalized Date/Time: 07/18/19 14:39:36 Pt. Name: SUKHDEV SCHWARTZ/Sex: 1985 Female Med Rec #: [id number] Physician: Aron ALVARADO DO Financial #: [id number] Pt. Type: I Room/Bed: [place] [address] Admit/Disch: 07/17/19 20:55:00 - Institution: Case Times FT Entry 1 Patient Times In Room 07/18/19 09:58:00 Out Room 07/18/19 10:24:00 Procedure Times Start 07/18/19 10:05:00 Stop 07/18/19 10:17:00 Anesthesia Times Start 07/18/19 09:58:00 Stop 07/18/19 10:24:00 Last Modified By: Juanita Stein CST 07/18/19 10:27:28 General Comments: 07/18/19 Chart opened to review and send charges Hilda Stein [employer] Case Attendance FT Entry 1 Entry 2 Entry 3 Case Attendee CAPRICE GUSTAFSON, Abhinav Eaton Jr DO, Davie Cabrera RN, Pamela Role Performed Surgeon - Primary Anesthesiologist of Technical Service Specialist - Primary Record Time In 07/18/19 10:03:00 07/18/19 09:58:00 07/18/19 09:58:00 Time Out 07/18/19 10:24:00 07/18/19 10:24:00 07/18/19 10:24:00 Procedure ERCP(.) ERCP(.) ERCP(.) Comments Last Modified By: Deborah RN, Pamela Cabrera RN, Pamela Cabrera RN, Pamela 07/18/19 10:32:44 07/18/19 10:27:40 07/18/19 10:27:40 Entry 4 Entry 5 Entry 6 Case Attendee Reny Michaud [employer], Shobha Nicolas RT, Kathy Turcios Role Performed Scrub - Other Scrub - Primary Respiratory Therapist Time In 07/18/19 09:58:00 07/18/19 09:58:00 07/18/19 09:58:00 Time Out 07/18/19 10:24:00 07/18/19 10:24:00 07/18/19 10:24:00 Procedure ERCP(.) ERCP(.) ERCP(.) Comments assist in room Last Modified By: Deborah RN, Pamela Cabrera RN, Pamela Cabrera RN, Pamela 07/18/19 10:33:10 07/18/19 10:27:40 07/18/19 10:27:40 Entry 7 Case Attendee Moy GOODRICH, Humaira Hooper Role Performed Technical Service Specialist - Other Time In 07/18/19 09:58:00 Time Out 07/18/19 10:05:00 Procedure ERCP(.) Comments help in room Last Modified By: Pamela Cabrera RN 07/18/19 10:27:40 Perioperative Protocols FT Pre-Care Text: Implements protective measures prior to operative or invasive procedure, confirms identity before the operative or invasive procedure, verifies operative procedure, surgical site, and laterality Entry 1 Procedure(s) ERCP(.) Patient Identity Birthday, ID Band Verified (select at Check, Patient least 2): Participation Consents / H and P Anesthesia Consent, Operative Site N/A Verified HandP, Surgery/Procedure Marking Verified Consent Surgical Site Yes Laterality Verified n/a Verified Procedure Verified Yes Correct Patient Yes Position Verified Availability Equipment, Medication Prep Dry n/a Verified (If Applicable) PreOp Antibiotic No Time Out Abhinav REDDY MD, Marsh Given Participants Jr BAE, Davie Perry, Deborah GOODRICH, Pamela, Jerry [employer], Jaswant Yeager, Reny K, Fidencio RT, Moy Troy RN, Humaira N Time Out Complete 07/18/19 10:03:00 Outcomes Met? Yes Last Modified By: Pamela Cabrera RN 07/18/19 10:08:02 Post-Care Text: The patient is free from signs and symptoms of injury caused by extraneous objects Allergy Information FT Pre-Care Text: Verifies allergies Entry 1 Allergies Reviewed? Yes Allergies Reviewed Self/Patient With Outcomes Met? Yes Last Modified By: Pamela Cabrera RN 07/18/19 09:27:20 Post-Care Text: The patient received appropriate medication(s) safely administered during the perioperative period Surgical Procedures FT Entry 1 Procedure Description Procedure ERCP Modifiers . Surgeon Description ERCP with sphincterotomy with stone and sludge removal Primary Procedure Yes Primary Surgeon Abhinav REDDY MD Start 07/18/19 10:05:00 Stop 07/18/19 10:17:00 Anesthesia Type General Surgical Service Gastroenterology Wound Class 2 - Clean-Contaminated Last Modified By: Pamela Cabrera RN 07/18/19 10:32:18 General Case Data FT Pre-Care Text: Classifies surgical wound, implements aseptic technique, initiates traffic control Entry 1 Case Information OR ENDO 2 FT Case Level Level 3 Wound Class 2 - Clean-Contaminated Specialty Gastroenterology ASA Class 2 Preop Diagnosis Biliary pancreatitis, Postop Same As Preop No dilated CBD Postop Diagnosis CBD stone Outcomes Met? Yes Last Modified By: Pamela Cabrera RN 07/18/19 10:31:30 Post-Care Text: The patient is free from signs and symptoms of infection Skin Assessment (Pre Procedure) FT Pre-Care Text: Implements protective measures to prevent skin/ tissue injury due to thermal or mechanical sources Evaluates for signs and symptoms of physical injury to skin and tissue Entry 1 Skin Integrity Intact, [place], Warm, and Skin Abnormality No Dry Outcomes Met? Yes Last Modified By: Pamela Cabrera RN 07/18/19 10:08:45 Post-Care Text: The patient is free from signs and symptoms of injury caused by extraneous objects Patient Positioning FT Pre-Care Text: Identifies physical alterations that require additional precautions for procedure-specific positioning, verifies presence of prosthetics or corrective devices, positions the patient, evaluates the patient for signs and symptoms of injury as a result of positioning Entry 1 Procedure ERCP(.) Body Position Prone Feet Uncrossed? Yes Left Arm Position Extended on Padded Arm Board Right Arm Position Resting at Side Left Leg Position Extended Right Leg Position Extended Positioning Device Safety Strap, Pillow Large Under Knees, Donut Headrest, Axillary Roll, Egg Crate Padding Press Points Checked Yes By Pamela Cabrera RN, Angelito Knowles DO, Jaswant Roblero Kirstyn K, Shobha Edwards CST, Schaffer RN, Humaira Hooper Outcomes Met? Yes Last Modified By: Pamela Cabrera RN 07/18/19 10:12:55 Post-Care Text: The patient is free from signs and symptoms of injury related to positioning Patient Care Devices FT Pre-Care Text: Implements protective measures to prevent skin/ tissue injury due to thermal or mechanical sources Entry 1 Entry 2 Entry 3 Equipment Type CAUTERY ERBE UNIT [F] ENDOSCOPY VIDEO MONITOR CHARGE SURGERY SYSTEM[F] [F] Equipment Number [id number] Equipment Setting Outcomes Met? Yes Yes Yes Last Modified By: Pamela Cabrera RN, RN, Pamela Rosas RN 07/18/19 10:13:53 07/18/19 10:13:53 07/18/19 10:13:53 Entry 4 Equipment Type C-ARM[F] Equipment Number [id number] Equipment Setting Outcomes Met? Yes Last Modified By: Pamela Cabrera RN 07/18/19 10:13:53 Post-Care Text: The patient is free from signs and symptoms of injury caused by extraneous objects Transport To OR FT Pre-Care Text: Transports according to individual needs. Evaluates for signs and symptoms of skin and tissue injury as a result of transfer or transport Entry 1 Via Cart By Pamela Cabrera RN Safety Precautions Side Rails Up Outcomes Met? Yes Last Modified By: Pamela Cabrera RN 07/18/19 10:14:00 Post-Care Text: The patient is free from signs and symptoms of injury related to transfer/transport Cautery FT Pre-Care Text: Implements protective measures to prevent injury due to electrical sources, and evaluates for signs and symptoms of electrical injury Entry 1 ESU Identification ESU Type CAUTERY ERBE UNIT [F] ESU Settings Cut 20 Coag 20 ESU Grounding Pad Site Left Thigh Hair Removal Pad No Site Pre Pad Site Clear and Intact Post Pad Site Clear and Intact Condition Condition Grounding Pad Humaira Winter RN Placed By Outcomes Met? Yes Last Modified By: Pamela Cabrera RN 07/18/19 10:14:43 Post-Care Text: The patient if free from signs and symptoms of electrical injury General Comments: Heat settings per ERBE using endocut/ercp/AW RN Departure From OR FT Pre-Care Text: Transports according to individual needs. Evaluates for signs and symptoms of skin and tissue injury as a result of transfer or transport. Entry 1 Via Cart Safety Precautions Side Rails Up PostOp Destination PACU Transported By Pamela Cabrera RN Patient Status Stable Skin. Condition Intact, [place], Warm, and Dry Airway Maintenance Oxygen in Use? No Airway Device N/A Outcomes Met? 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 Yes Verified Last Modified By: Pamela Cabrera RN 07/18/19 10:15:26 Post-Care Text: The patient received appropriate medication(s) safely administered during the perioperative period For [facility] please see scanned medication reconcilliation form for medications used at the field during the procedure. X-Rays and Images FT Pre-Care Text: Assess history of previous radiation exposure and implements protective measures Entry 1 X-Ray Type C-Arm Contrast Used? Yes Outcomes Met? Yes Last Modified By: Pamela Cabrera RN 07/18/19 10:16:11 Post-Care Text: The patient is free from signs and symptoms of radiation injury Normal [facility] Main OR PACU I Recordon 10 Main OR PACU I Record PACU Phase I Document Type FT Summary Primary Physician: Abhinav REDDY MD Finalized Date/Time: 07/18/19 10:47:23 Pt. Name: SUKHDEV SCHWARTZ Antoni Garcia./Sex: 1985 Female Med Rec #: [id number] Physician: Aron ALVARADO DO Financial #: [id number] Pt. Type: I Room/Bed: [place] [address] Admit/Disch: 07/17/19 20:55:00 - Institution: Case Times PACU I FT Pre-Care Text: Identifies barriers to communication and implements measures to provide psychological support Develops individualized plan of care, and ensures continuity of care Maintains patient's dignity and privacy, and maintains patient confidentiality Identifies and reports philosophical, cultural, and spiritual beliefs and values Identifies individual values and wishes concerning care Implements aseptic technique, and administers prescribed antibiotic therapy and immunizing agents as ordered Evaluates postoperative tissue perfusion Implements thermoregulation measures, and monitors body temperature Evaluates postoperative respiratory status Evaluates postoperative cardiac status Evaluates postoperative neurological status Assesses pain control, collaborated in initiating patient-controlled analgesia and implements alternative methods of pain control Verifies allergies, administers prescribed medications and solutions, evaluates response to medications Entry 1 In PACU I 07/18/19 10:26:00 Discharge from PACU 07/18/19 10:56:00 I Outcomes Met? Yes Last Modified By: Carin Iverson RN 07/18/19 10:47:11 Post-Care Text: The patient demonstrates knowledge of the expected response to the operative or invasive procedure The patient's care is consistent with the individualized perioperative plan of care The patient's right to privacy is maintained The patient's value system, lifestyle, ethnicity, and culture are considered, respected, and incorporated into the perioperative plan of care The patient participates in decisions affecting his or her perioperative plan of care The patient is free from signs and symptoms of infection The patient has wound/tissue perfusion consistent with or improved from baseline levels established preoperatively The patient is at or returning to normothermia at the conclusion of the immediate postoperative period The patient's respiratory function is consistent with or improved from baseline levels established preoperatively The patient's cardiovascular status is consistent with or improved from baseline levels established preoperatively The patient's cardiovascular status is consistent with or improved from baseline levels established preoperatively The patient demonstrates and/or reports adequate pain control throughout the perioperative period The patient received appropriate medication(s), safely administered during the perioperative period Acuity Level PACU I FT Entry 1 Start Time 07/18/19 10:26:00 Stop Time 07/18/19 10:56:00 Acuity Level Acuity Level I Last Modified By: Carin Iverson RN 07/18/19 10:47:21 Finalized By: Carin Iverson RN Document Signatures Signed By: Carin Iverson RN 07/18/19 10:47 Normal [facility] Main OR Preoperative Recordo n 07-18-2019 Main OR Preoperative Record Holding Area Document Type FT Summary Primary Physician: Abhinav REDDY MD Finalized Date/Time: 07/18/19 09:36:36 Pt. Name: SEN SCHWARTZTRUMAN Garcia./Sex: 1985 Female Med Rec #: [id number] Physician: Aron ALVARADO DO Financial #: [id number] Pt. Type: I Room/Bed: [facility]/ Admit/Disch: 07/17/19 20:55:00 - Institution: Case Times Holding FT Pre-Care Text: Verifies consent for planned procedure, identifies individual values and wishes concerning care, includes family members in perioperative teaching Secures patient's records' belongings, and valuables, maintains patient's dignity and privacy, and maintains patient confidentiality Entry 1 In Holding 07/18/19 09:20:00 Outcomes Met? Yes Last Modified By: Prachi GOODRICH, BSN, M.EdElayne, Kellen POZO 07/18/19 09:36:17 Post-Care Text: The patient participates in decisions affecting his or her perioperative plan of care The patient's right to privacy is maintained Surgery Checklist FT Entry 1 Patient Birthday, ID Band Procedure History and Physical, Identification: Check, Patient Verification: Surgical Consent, With Participation Patient NPO after Midnight: Yes Results Reviewed SEE IP LABS Comments: Personal Items: Glasses Personal Items GLASSES Comment: Limitations: VISION Complaints of Pain: Yes Pain Comment: 8 MID ABD/EPIGASTRIC Operative Site n/a REASON FOR SCOPE Marking: Availability Equipment Verified: Does Patient Smoke No Patient states Yes Comment - Adult ip [id number] COMING postop adult Supervision supervision available Case Cancelled in No Holding Area see comments below for reason Last Modified By: PRESTON Velarde RN, Al, Kellen POZO 07/18/19 09:36:34 Finalized By: PRESTON Velarde RN, Al, Kellen POZO Document Signatures Signed By: PRESTON Velarde RN, Al, Kellen POZO 07/18/19 09:36 PRESTON Velarde RN, Al, Kellen POZO 07/18/19 09:36 PRESTON Velarde RN, Al, Kellen POZO 07/18/19 09:36 Normal [facility] PT & PTTon 07-18-2019 aPTT Coag (PPP) [Time] 28.1 second(s) Normal 25.1-36.5 [facility] Comment on above: Result Comment: Hepa rin therapeutic range (represented by Anti-Factor Xa activity of 0.2 - 0.4 U/mL) corresponds to PTT of 56.6 - 109.0 sec. Performed By: #### 1 [id number], [id number], 5437304, 7952528, 0591422, 0190659, 11083996, 5105313 #### [facility] [address] [place] [address] INR Coag (PPP) [Relative time] 1.0 {INR} [facility] Comment on above: Result Comment: INR results are specifically intended to assess patients stabilized on long-term Anticoagulation therapy suggested INR?s ?Less Intensive Anticoagulation? 2.0 ? 3.0 Conventional Range 3.0 ? 4.5 Performed By: #### 1 [id number], [id number], 0004551, 9063060, 9338512, 9183616, 68431330, 3094782 #### [facility] [address] [place] [address] PT Coag (PPP) [Time] 11.9 second(s) Normal 10.2-12.9 [facility] Comment on above: Performed By: #### 1 [id number], 6061701, 3265601, 2767796, 2545213, 5261285, [id number], 2543902 #### [facility] [address] [place] [address] Prescriptions/Work Noteson 1 Prescriptions/Work Notes Pt to US at this time, via cart. Normal [facility] Progress Note-Nurseon 2018 Progress Note-Nurse SIMI Murillo aware of patient c/o pain. Normal [facility] Progress Note-Nurse Pt care report provi ded to JOLEEN Chavez at this time. Normal [facility] U BetaHcg Qualon 07-18-2019 HCG.beta subunit (U) [Moles/Vol] Negative Normal [facility] Comment on above: Performed By: #### 1 [id number], [id number], 6311073, 7150979, 9426363, 5952825, 57948163, 4995376 #### [facility] [address] [place] [address] UA With Cult Reflexon 2018 Bacteria LM Ql (Urine sed) 1+ /HPF Abnormal Trace [facility] Comment on above: Performed By: #### 1 [id number], 0274121, 1465019, 6251145, 0105174, 4367920, [id number], 0300117 #### [facility] [address] [place] [address] Bilirubin Ql (U) 3+ Abnormal Negative [facility] Comment on above: Performed By: #### 1 [id number], 1778734, 5464146, 5136629, 6157162, 4545880, [id number], 1176613 #### [facility] [address] [place] [address] Clarity (U) SL CLOUDY Abnormal Clear [facility] Comment on above: Performed By: #### 1 [id number], 8019486, 3681178, 5407390, 7490333, 1309253, 16637586, 8061877 #### [facility] [address] [place] [address] Color (U) DARK YELLO Abnormal Yellow [facility] Comment on above: Performed By: #### 1 [id number], 0199158, 1524134, 4789271, 2743500, 3788511, [id number], 9328322 #### [facility] [address] [place] [address] Crystals LM Ql (Urine sed) Present Normal [facility] Comment on above: Performed By: #### 1 [id number], 8420370, 0310538, 3157889, 6996038, 6493015, 47048565, 8977380 #### [facility] [address] [place] [address] Epithelial cells.squamous LM.HPF (Urine sed) [#/Area] 5-8 Normal 0-2 [facility] Comment on above: Performed By: #### 1 [id number], 0337827, 6702594, 8266931, 4233407, 8501942, 38668500, 2995169 #### [facility] [address] [place] [address] Glucose Test strip (U) [Mass/Vol] Negative Normal Negative [facility] Comment on above: Performed By: #### 1 [id number], 4864987, 6904406, 2553527, 1254934, 4509709, 69698634, 8396631 #### [facility] [address] [place] [address] Hemoglobin Ql (U) TRACE Abnormal Negative [facility] Comment on above: Performed By: #### 1 [id number], 8602524, 3615862, 4872289, 2360705, 1268899, 52034834, 8999787 #### [facility] [address] [place] [address] Ketones (U) [Mass/Vol] 3+ Abnormal Negative [facility] Comment on above: Performed By: #### 1 [id number], 2177381, 4321970, 5095280, 1436753, 5554015, 35116363, 4363749 #### [facility] [address] [place] [address] [place].plasma/Lith ium.RBC (Bld) [Mass ratio] 4-20 Normal 0-3 [facility] Comment on above: Performed By: #### 1 [id number], [id number], 8587042, 6234307, 0471332, 7075292, [id number], [id number] #### [facility] [address] [place] [address] Mucus Ql (Urine sed) 3+ Normal [facility] Comment on above: Performed By: #### 1 [id number], [id number], 5258049, 8940586, 9176122, 7165511, 62562485, 5386158 #### [facility] [address] [place] [address] Nitrite Ql (U) Negative Normal Negative [facility] Comment on above: Performed By: #### 1 [id number], 6008905, 8965060, 6145110, 6255466, 5737344, 38741796, 7294588 #### [facility] [address] [place] [address] pH (U) 6.0 [pH] 5.0-9.0 [facility] Comment on above: Performed By: #### 1 [id number], 3325017, 3088264, 7853450, 5353626, 0201841, 85478791, 0647138 #### [facility] [address] [place] [address] Protein (U) [Mass/Vol] TRACE Abnormal Negative [facility] Comment on above: Performed By: #### 1 [id number], 2339022, 0001366, 6379251, 1080962, 6095499, 87843192, 5054537 #### [facility] [address] [place] [address] Specific gravity (U) [Rel density] >=1.030 1.005-1.030 [facility] Comment on above: Performed By: #### 1 [id number], 8552483, 1734451, 9697940, 4488645, 4576240, 88734773, 1927519 #### [facility] [address] [place] [address] UA Spec Desc Clean Catch Normal [facility] Comment on above: Performed By: #### 1 [id number], 8857028, 5446427, 5262612, 6726385, 6141038, 03604955, 3056466 #### [facility] [address] [place] [address] Urobilinogen Qn (U) 2.0 {Payal'U}/dL Abnormal 0.0-1.0 [facility] Comment on above: Performed By: #### 1 [id number], 2765632, 3557489, 6751522, 9028592, 4571666, 92990819, 1294468 #### [facility] [address] [place] [address] WBC Auto Ql (U) TRACE Abnormal Negative [facility] Comment on above: Performed By: #### 1 [id number], 2104554, 2145478, 6180362, 7807893, 4072140, 01053557, 7702167 #### [facility] [address] [place] [address] WBC casts LM.LPF (Urine sed) [#/Area] 0-3 Normal [facility] Comment on above: Performed By: #### 1 [id number], 4797534, 2128082, 0776431, 1717257, 8979504, 06336216, 8069409 #### [facility] [address] [place] [address] WBC LM.HPF (Urine sed) [#/Area] 0-5 Normal 0-5 [facility] Comment on above: Performed By: #### 1 [id number], 8875582, 3963594, 8335613, 3161642, 3894744, 25217239, 1279394 #### [facility] [address] [place] [address] US Gallbladderon 07-18-2019 US Gallbladder Exam Date/Time: 07/17/2019 23:11 EDT Reason for Exam: Abdominal pain Report IMPRESSION: Cholelithiasis without cholecystitis. Dilated common bile duct measuring 9 mm, without choledocholithiasis in the visualized portions. EXAMINATION: US Gallbladder HISTORY: Abdominal pain. TECHNIQUE: Sonography of the right upper quadrant was performed. Images were obtained and stored in a permanent archive.\[id number]\ COMPARISON: MRI cholangiogram 04/21/2019, CT abdomen/pelvis 04/20/2019 RESULT: Pancreas: Not well-visualized. Liver: Echotexture: Normal, homogeneous. Echogenicity: Normal Surface contour: Smooth Lesions: None. Biliary: No intrahepatic biliary duct dilation. CBD: 0.9 cm at the hilum. No obstructing stones in the visualized portion. Gallbladder: Dilated -Contents: Cholelithiasis -Wall: Gallbladder mild wall thickening present measuring 4 mm. -Other: Negative sonographic Amador's sign. No pericholecystic fluid. Right Kidney: Imaged portions unremarkable. Ascites: None. FINAL REPORT Dictated: 07/18/2019 8:52 am Kilo Farrell MD Signed (Electronic Signature): 07/18/2019 8:52 am Signed by: Kilo Farrell MD Transcribed by: MADISON Technologist: LALY [facility] XR ERCP Biliary Ducton 07-18 XR ERCP Biliary Duct Exam Date/Time: 07/18/2019 10:25 EDT Reason for Exam: ercp Report IMPRESSION: DISTAL COMMON BILE DUCT STONE, WITH APPARENT REMOVAL FOLLOWING PASSAGE OF A BALLOON CATHETER. SUSPECTED SHORT SEGMENT SPASM OF THE DISTAL MOST COMMON BILE DUCT. CLINICAL HISTORY: ERCP. COMMENT: 6 limited [id number] C-arm images were obtained during an ERCP procedure. The endoscope end is visualized in the second portion of the duodenum. The distal common bile duct has been cannulated, and contrast injected. On the initial image, there is an apparent filling defect in the distal common bile duct. The more proximal extrahepatic bile ducts and the visualized central intrahepatic bile ducts are unremarkable. Subsequent images demonstrate passage of a balloon catheter through the common bile duct. On the final image, there is apparent short segment spasm of the distal common bile duct near the choledochal sphincter, but there is flow contrast into the duodenum. The radiation dose is 62.09 mGy. FINAL REPORT Dictated: 07/18/2019 12:47 pm Go Kaplan M.D. Signed (Electronic Signature): 07/18/2019 12:47 pm Signed by: Go Kaplan M.D. Transcribed by: MADISON Technologist: ROEL Technical Comments Radiation Dose: zofia Godfrey in mGy = 62.1 Fluoro Time: 141.1s Normal [facility] eGFRon 07-18-2019 GFR/1.73 sq M predicted among blacks MDRD (S/P/Bld) [Vol rate/Area] mL/min/{1.73_m2} Normal >=59 [facility] Comment on above: Order Comment: Order added by Discern Expert. Result Comment: eGFR is race adjusted. AA=. Performed By: #### 1 [id number], 4383525, 5115080, 0970316, 0152053, 6036871, 29271485, 2560670 #### [facility] [address] [place] [address] GFR/1.73 sq M predicted among non-blacks MDRD (S/P/Bld) [Vol rate/Area] mL/min/{1.73_m2} Normal >=59 [facility] Comment on above: Order Comment: Order added by Discern Expert. Result Comment: Contract Forester ivan kidney disease could be indicated at eGFR's of less than 60 mL/min/1.73m2. Kidney failure is indicated at less than 15 mL/min/1.73m2. Performed By: #### 1 [id number], 0998276, 5535819, 6036095, 1026429, 9832965, 49951772, 8421058 #### [facility] [address] [place] [address] GFR/1.73 sq M predicted among blacks MDRD (S/P/Bld) [Vol rate/Area] mL/min/{1.73_m2} Normal >=59 [facility] Comment on above: Order Comment: Order added by Discern Expert. Result Comment: eGFR is race adjusted. AA=. Performed By: #### 1 [id number], 7834382, 6811739, 0130915, 8340398, 9975134, 67613569, 4208933 #### [facility] [address] [place] [address] GFR/1.73 sq M predicted among non-blacks MDRD (S/P/Bld) [Vol rate/Area] mL/min/{1.73_m2} Normal >=59 [facility] Comment on above: Order Comment: Order added by Discern Expert. Result Comment: Contract Forester ivan kidney disease could be indicated at eGFR's of less than 60 mL/min/1.73m2. Kidney failure is indicated at less than 15 mL/min/1.73m2. Performed By: #### 1 [id number], 2292434, 1757873, 0027820, 0670911, 3742543, 61553717, 8868587 #### [facility] [address] [place] [address] Amylaseon 07-17-2019 Amylase [Catalytic activity/Vol] 39 U/L 28 - 100 U/L [place] CBC Auto Differentialon 06-20 Basophils (Bld) [#/Vol] 0.00 10*3/uL [place] Basophils/100 WBC (Bld) 0 % 0 - 2 % [place] Differential Type YES [place] Eosinophils (Bld) [#/Vol] 0.10 10*3/uL [place] Eosinophils/100 WBC (Bld) 1 % 0 - 5 % [place] Erythrocyte distribution width (RBC) [Ratio] 13.3 % 12.1 - 15.2 % [place] Hematocrit (Bld) [Volume fraction] 36.1 % 36 - 46 % [place] Hemoglobin (Bld) [Mass/Vol] 12.3 g/dL 12 - 16 g/dL [place] Lymphocytes (Bld) [#/Vol] 1.50 10*3/uL [place] Lymphocytes/100 WBC (Bld) 23 % 15 - 40 % [place] MCH (RBC) [Entitic mass] 30.5 pg 26 - 34 pg [place] MCHC (RBC) [Mass/Vol] 34.1 g/dL 31 - 37 g/dL [place] MCV (RBC) [Entitic vol] 89.3 fL 80 - 100 fL [place] Monocytes (Bld) [#/Vol] 0.40 10*3/uL [place] Monocytes/100 WBC (Bld) 6 % 4 - 8 % [place] Platelet mean volume (Bld) [Entitic vol] NOT REPORTED 6 - 12 fL [place] Platelets (Bld) [#/Vol] 301 10*3/uL [place] Platelets (Bld) [#/Vol] NOT REPORTED [place] RBC (Bld) [#/Vol] 4.04 10*6/uL 4 - 5.2 m/uL [place] RBC morphology finding Nom (Bld) NOT REPORTED [place] Segmented neutrophils/100 WBC (Bld) 70 % 47 - 75 % [place] Segs Absolute 4.60 [place] WBC (Bld) [#/Vol] 6.6 10*3/uL [place] WBC (Bld) [#/Vol] NOT REPORTED per 100 WBC [place] WBC Morphology NOT REPORTED [place] Comprehensive Metabolic Pane avel 07-17-2019 Albumin [Mass/Vol] 4.4 g/dL 3.5 - 5.2 g/dL [place] Albumin/Globulin [Mass ratio] NOT REPORTED [place] ALP [Catalytic activity/Vol] 84 U/L 35 - 104 U/L [place] ALT [Catalytic activity/Vol] 153 U/L High 5 - 33 U/L [place] Anion gap [Moles/Vol] 11 mmol/L 9 - 17 mmol/L [place] AST [Catalytic activity/Vol] 243 U/L High <32 [place] Bilirubin Ql (U) 2.37 mg/dL High 0.3 - 1.2 mg/dL [place] Bun/Cre Ratio 27 High [place] Calcium [Mass/Vol] 9.9 mg/dL 8.6 - 10. 4 mg/dL [place] Chloride [Moles/Vol] 104 mmol/L 98 - 107 mmol/L [place] CO2 [Moles/Vol] 24 mmol/L 20 - 31 mmol/L [place] Creatinine [Mass/Vol] 0.49 mg/dL Low 0.5 - 0.9 mg/dL [place] GFR >60 >60 mL/min [place] GFR Non- >60 >60 mL/min [place] GFR/1.73 sq M predicted among non-blacks MDRD (S/P/Bld) [Vol rate/Area] [place] Comment on above: Average GFR for 30-3 9 years old: 107 mL/min/1.73sq m Chronic Kidney Disease: <60 mL/min/1.73sq m Kidney failure: <15 mL/min/1.73sq m eGFR calculated using average adult body mass. Additional eGFR calculator available at: http://www.[employer]/multiple_crcl_2012.htm GFR/1.73 sq M predicted among non-blacks MDRD (S/P/Bld) [Vol rate/Area] NOT REPORTED [place] Glucose [Mass/Vol] 97 mg/dL 70 - 99 mg/dL [place] Interpretation and review of laboratory results Abnormal [place] Potassium [Moles/Vol] 3.6 mmol/L Low 3.7 - 5.3 mmol/L [place] Protein [Mass/Vol] 7.5 g/dL 6.4 - 8.3 g/dL [place] Sodium [Moles/Vol] 139 mmol/L 135 - 144 mmol/L [place] Urea nitrogen [Mass/Vol] 13 mg/dL 6 - 20 mg/dL [place] Lipaseon 07-17-2019 Lipase [Catalytic activity/Vol] 20 U/L 13 - 60 U/L [place] Otheron 07-17-2019 Immature granulocytes (Bld) [#/Vol] NOT REPORTED 0 % [place] US HEAD NECK SOFT TISSUE THY ROIDon 07-14-2019 Stable nodules with no follow-up needed. [place] EXAM: US HEAD NECK S OFT TISSUE THYROID HISTORY: E04.1 33-year-old female thyroid nodule, follow-up. COMPARISON: Thyroid ultrasound 09/30/2018 TECHNIQUE: Thyroid ultrasound. FINDINGS: The right thyroid is normal. A small 5 mm likely colloid cyst in the right thyroid isthmus is unchanged in retrospect and of no significance. The previously seen 5 x 2 x 5 mm likely rim calcified nodule with smooth borders in the inferior thyroid lobe is stable. Right lobe: 5.2 x 1.4 x 2.1 cm. Left lobe: 4.9 x 1.3 x 1.9 cm. [place] Misha, Mhpn Incoming R adiant Results From [employer] A/S - 07/14/2019 3:21 PM EDT EXAM: US HEAD NECK SOFT TISSUE THYROID HISTORY: E04.1 33-year-old female thyroid nodule, follow-up. COMPARISON: Thyroid ultrasound 09/30/2018 TECHNIQUE: Thyroid ultrasound. FINDINGS: The right thyroid is normal. A small 5 mm likely colloid cyst in the right thyroid isthmus is unchanged in retrospect and of no significance. The previously seen 5 x 2 x 5 mm likely rim calcified nodule with smooth borders in the inferior thyroid lobe is stable. Right lobe: 5.2 x 1.4 x 2.1 cm. Left lobe: 4.9 x 1.3 x 1.9 cm. IMPRESSION: Stable nodules with no follow-up needed. [place] TSHon 07-07-2019 TSH Qn 0.78 m[IU]/L Normal 0.44 - 3.98 [facility] Comment on above: Result Comment: TSH testing is performed using different testing methodology at [facility] than at other [facility]. Direct result comparisons should only be made within the same method. . Patients receiving more than 5 mg/day of biotin may have interference in test results. A sample should be taken no sooner than eight hours after previous dose. Contact [phone] for additional information. Performed By: #### T SH2 #### [facility] [address] [place] [address] TSHon 05-25-2019 TSH Qn 0.77 m[IU]/L Normal 0.44 - 3.98 [facility] Comment on above: Result Comment: TSH testing is performed using different testing methodology at [facility] Direct result comparisons should only be made within the same method. . Patients receiving more than 5 mg/day of biotin may have interference in test results. A sample should be taken no sooner than eight hours after previous dose. Contact [phone] for additional information. Performed By: #### T SH2 #### [facility] [address] [place] [address] TSHon 01-18-2019 TSH Qn 0.75 m[IU]/L Normal 0.44 - 3.98 [facility] Comment on above: Result Comment: TSH testing is performed using different testing methodology at [facility] than at other [facility]. Direct result comparisons should only be made within the same method. . Patients receiving more than 5 mg/day of biotin may have interference in test results. A sample should be taken no sooner than eight hours after previous dose. Contact [phone] for additional information. Performed By: #### T SH2 #### [facility] [address] [place] [address] TSHon 01-10-2019 TSH Qn 1.27 m[IU]/L Normal 0.44 - 3.98 [facility] Comment on above: Result Comment: TSH testing is performed using different testing methodology at [facility] than at other [facility]. Direct result comparisons should only be made within the same method. . Patients receiving more than 5 mg/day of biotin may have interference in test results. A sample should be taken no sooner than eight hours after previous dose. Contact [phone] for additional information. Performed By: #### T SH2 #### [facility] [address] [place] [address] TSHon 12-07-2018 TSH Qn 0.86 m[IU]/L Normal 0.44 - 3.98 [facility] Comment on above: Result Comment: TSH testing is performed using different testing methodology at [facility] than at other [facility]. Direct result comparisons should only be made within the same method. . Patients receiving more than 5 mg/day of biotin may have interference in test results. A sample should be taken no sooner than eight hours after previous dose. Contact [phone] for additional information. Performed By: #### T SH2 #### [facility] [address] [place] [address] EXT LAB FERRITINon 9 Ferritin mass conc 97 ng/mL [facility] External Lab CBC (With or wi thout Diff)on 11-12-2018 Basophils (Bld) [#/Vol] 0.0 10*3/uL [facility] Basophils/100 WBC (Bld) 0.8 % [facility] Eosinophils (Bld) [#/Vol] 0.1 10*3/uL [facility] Eosinophils (Bld) [#/Vol] 2.5 10*3/uL [facility] Erythrocyte distribution width (RBC) [Ratio] 12.8 % [facility] Hematocrit (Bld) [Volume fraction] 39.1 % [facility] Hemoglobin (Bld) [Mass/Vol] 13.2 g/dL [facility] Lymphocytes (Bld) [#/Vol] 1.8 10*3/uL [facility] Lymphocytes (Bld) [#/Vol] 30.4 10*3/uL [facility] MCH (RBC) [Entitic mass] 29.8 pg [facility] MCHC (RBC) [Mass/Vol] 33.7 g/dL [facility] MCV (RBC) [Entitic vol] 88.6 fL [facility] Monocytes (Bld) [#/Vol] 0.4 10*3/uL [facility] Monocytes (Bld) [#/Vol] 7.2 10*3/uL [facility] Neutrophils (Bld) [#/Vol] 59.1 10*3/uL [facility] Neutrophils (Bld) [#/Vol] 3.4 10*3/uL [facility] Platelet mean volume (Bld) [Entitic vol] 7.2 fL [facility] Platelets (Bld) [#/Vol] 308 10*3/uL K/mcL [facility] RBC (Bld) [#/Vol] 4.4 10*6/uL [facility] WBC (Bld) [#/Vol] 5.80 10*3/uL K/mcL [facility] External Lab Comprehensive M etabolic Panelon 11-12-2018 Albumin [Mass/Vol] 4.1 g/dL [facility] Albumin/Globulin [Mass ratio] 1.2 {ratio} [facility] ALP [Catalytic activity/Vol] 52 U/L [facility] ALT [Catalytic activity/Vol] 11 U/L [facility] AST [Catalytic activity/Vol] 15 U/L [facility] Bilirubin Ql (U) 1.0 mg/dL [facility] Calcium [Mass/Vol] 9.5 mg/dL [facility] Chloride [Moles/Vol] 102 mmol/L [facility] Creatinine [Mass/Vol] 0.60 mg/dL [facility] GFR/1.73 sq M predicted among blacks MDRD (S/P/Bld) [Vol rate/Area] [facility] GFR/1.73 sq M predicted among non-blacks MDRD (S/P/Bld) [Vol rate/Area] [facility] Globulin (S) [Mass/Vol] 3.3 g/dL [facility] Glucose [Mass/Vol] 87 mg/dL [facility] HCO3 (Bld) [Moles/Vol] 25 mmol/L [facility] Magnesium [Mass/Vol] [facility] Phosphate [Mass/Vol] mg/dL [facility] Potassium [Moles/Vol] 4.1 mmol/L [facility] Protein [Mass/Vol] 7.4 g/dL [facility] Sodium [Moles/Vol] 137 mmol/L [facility] Urate [Mass/Vol] mg/dL [facility] Urea nitrogen [Mass/Vol] 15 mg/dL [facility] Urea nitrogen/Creatinine [Mass ratio] 25 mg/mg High [facility] External Lab Vitamin D, 25-O Hon 11-12-2018 Vitamin D, 25-OH 55.0 [facility] External Vitamin B12 and Fol ateon 11-12-2018 Cobalamin (Vitamin B12) mass conc 1500 pg/mL Off scale high [facility] Folate 24.8 ng/mL Off scale high [facility] Otheron 11-12-2018 Interpretation and review of laboratory results Abnormal [facility] TSHon 08-13-2018 TSH Qn 0.64 m[IU]/L Normal 0.44 - 3.98 [facility] Comment on above: Order Comment: FXD S TAT TO [phone]; SPOKE W/ALFREDO , 08/12/2018 22:23 Result Comment: TSH testing is performed using different testing methodology at [facility] than at other [facility]. Direct result comparisons should only be made within the same method. . Patients receiving more than 5 mg/day of biotin may have interference in test results. A sample should be taken no sooner than eight hours after previous dose. Contact [phone] for additional information. FXD STAT TO [phone]; SPOKE W/ALFREDO , 08/12/2018 22:23 Performed By: #### T SH2 #### [facility] [address] [place] [address] Vital Signs Date Time Vital Sign Value Performing Clinician Facility 09-12-2019 15:37-0500 BMI (Body Mass Index) 31.06 kg/m2 [facility] 09-12-2019 15:37-0500 Body weight 103.87 kg [facility] 09-12-2019 15:37-0500 BP Diastolic 85 mm[Hg] [facility] 09-12-2019 15:37-0500 BP Systolic 126 mm[Hg] [facility] 09-12-2019 15:37-0500 Height 182.9 cm [facility] 09-12-2019 15:37-0500 Pulse (Heart Rate) 73 /min [facility] 11-08-2017 09:56-0500 BMI (Body Mass Index) 36.08 kg/m2 [facility] Work Phone: 11-08-2017 09:56-0500 BP Diastolic 81 mm[Hg] [facility]: 11-08-2017 09:56-0500 BP Systolic 120 mm[Hg] [facility] Work Phone: 11-08-2017 09:56-0500 Height 182.9 cm [facility] Work Phone: 11-08-2017 09:56-0500 Pulse (Heart Rate) 70 /min [facility] Work Phone: 11-08-2017 09:56-0500 Weight 120.66 kg [facility] Work Phone: 08-09-2017 14:05-0400 BMI (Body Mass Index) 40.01 kg/m2 Behzad Zacherya [facility] Work Phone: 08-09-2017 14:05-0400 Body Temperature 97.5 [degF] Behzad Zacherya [facility] Work Phone: 08-09-2017 14:05-0400 BP Diastolic 74 mm[Hg] Behzad Zacherya [facility] Work Phone: 08-09-2017 14:05-0400 BP Systolic 130 mm[Hg] [facility] Work Phone: 08-09-2017 14:05-0400 Height 182.9 cm [facility] Work Phone: 08-09-2017 14:05-0400 Pulse (Heart Rate) 85 /min [facility]ad [facility] Work Phone: 08-09-2017 14:05-0400 Weight 133.81 kg Behzad [facility] Work Phone: 06-01-2017 14:30-0400 BMI (Body Mass Index) 43.26 kg/m2 Behzad [facility] Work Phone: 06-01-2017 14:30-0400 Body Temperature 97.81 [degF] Behzad [facility] Work Phone: 06-01-2017 14:30-0400 BP Diastolic 82 mm[Hg] Behzad [facility] Work Phone: 06-01-2017 14:30-0400 BP Systolic 128 mm[Hg] Behzad [facility] Work Phone: 06-01-2017 14:30-0400 Height 182.9 cm Behzad [facility] Work Phone: 06-01-2017 14:30-0400 Pulse (Heart Rate) 82 /min Behzad Zacherya [facility] Work Phone: 06-01-2017 14:30-0400 Weight 144.7 kg [facility] Work Phone: Encounters Encounter Date Encounter Type Care Provider Facility Start: 04-02-2023 End: 04-03-2023 ambulatory [facility] Start: 04-02-2023 End: 04-02-2023 Subsequent hospital visit by physician Loli Matias MD Work Phone: [facility] Laboratory Comment on above: Acquired hypothyroid ism Start: 11-10-2022 End: 11-13-2022 ambulatory [facility] Start: 11-10-2022 End: 11-12-2022 Subsequent hospital visit by physician [facility] Ultrasound Room [facility]trasound Comment on above: Acquired hypothyroid ism Start: 11-06-2022 End: 02-15-[address] DREW MCBRIDE Facility: Start: 01-13-2022 End: 01-15-2022 Subsequent hospital visit by physician Loli Matias MD Work Phone: [facility] Start: 11-19-2020 End: 11-19-2020 Billy Ramirez Work Phone: [facility] Start: 09-20-2019 End: 09-20-2019 Documentation procedure Behzad Rajendrasinh Rana Work Phone: [facility] Start: 09-18-2019 End: 09-18-2019 Documentation procedure Behzad Rajendrasinh Rana Work Phone: [facility] Start: 09-12-2019 End: 09-12-2019 Patient encounter procedure BEHZAD RAJENDRASINH RANA [facility] Ambulatory Start: 09-12-2019 End: 09-12-2019 Office outpatient visit 15 minutes Behzad Rajendrasinh Rana Work Phone: [facility] Comment on above: Bariatric surgery [facility] at[facility] (Primary Dx); Obesity, Class I, BMI 30-34.9 Start: 07-17-2019 End: 07-17-2019 Subsequent hospital visit by physician Loli Matias [facility] Laboratory Comment on above: Epigastric pain; History of pancreatitis Start: 07-14-2019 End: 07-16-2019 Subsequent hospital visit by physician [facility] Ultrasound Room [facility]trasound Comment on above: Thyroid nodule Start: 11-16-2018 End: 11-16-2018 Documentation procedure Behzad Hu Work Phone: [facility] Start: 10-24-2018 End: 10-24-2018 Patient encounter procedure BEHZAD HU [facility] Start: 04-11-2018 End: 04-11-2018 [facility] Start: 11-08-2017 Office/outpatient vi sit, est, level 3 Behzad Berniceharvinder Binghamsamuel Work Phone: [facility] Start: 08-09-2017 End: 08-09-2017 Office outpatient visit 15 minutes Behzad Queenhortensiakristian Zacherysamuel Work Phone: [facility] Comment on above: Bariatric surgery st at[facility] (Primary Dx) Start: 06-01-2017 Postop follow-up visit Behzad majanokristian Mayte Work Phone: [facility] Start: 04-30-2017 End: 05-02-2017 Evaluation and management of inpatient [facility] Start: 04-30-2017 Ambulatory JOSE DRAPER [facility] Start: 04-23-2017 End: 04-27-2017 Ambulatory [facility] Start: 04-05-2012 End: 08-15-2018 Patient encounter procedure Loli Matias MD Work Phone: 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 Work Phone: Start: 09-13-2019 EXT LAB FERRITIN Behzad Binghama Work Phone: Start: 09-13-2019 EXT LAB IRON BehzadMccord Work Phone: Start: 09-13-2019 EXT LAB VITAMIN A BehzadKunz Work Phone: Start: 09-13-2019 EXT LAB VITAMIN B1 Rachel urvashi Hu Work Phone: Start: 09-13-2019 EXT LAB VITAMIN B12 AND FOLATE BehzadKunz Work Phone: Start: 09-13-2019 EXT LAB VITAMIN B6 Rachel urvashi Hu Work Phone: Start: 09-13-2019 EXT LAB VITAMIN D, 25-OH Behzda Hu Work Phone: Start: 09-13-2019 EXT LAB ZINC BehzadMccord Work Phone: Start: 07-27-2019 Anesthesia consultation Start: 07-19-2019 Anesthesia consultation Start: 07-17-2019 Assay of amylase Lucho Gandara Work Phone: Start: 07-17-2019 Assay of lipase Junior Gandara Work Phone: Start: 07-17-2019 Blood count complete auto&auto difrntl wbc Junior Gandara Work Phone: Start: 07-17-2019 Comprehensive metabo lic panel Junior Gandara Work Phone: Start: 07-14-2019 Us soft tissue head & neck real time imge javier Matias Work Phone: Start: 11-12-2018 EXT LAB CBC (WITH OR WITHOUT DIFF) Behzad Binghama Work Phone: Start: 11-12-2018 EXT LAB COMPREHENSIV E METABOLIC BehzadSterlinga Work Phone: Start: 11-12-2018 EXT LAB FERRITIN BehzadKunz Work Phone: Start: 11-12-2018 EXT LAB VITAMIN B12 AND FOLATE Behzad Hu Work Phone: Start: 11-12-2018 EXT LAB VITAMIN D, 25-OH Behzad Hu Work Phone: Start: 09-28-2017 Microscopic observat ion [Identifier] in Cervix by Cyto stain Loli Matias MD Work Phone: Plan of Treatment Date Care Activity Detail Author Start: 05-30-2024 DTaP/Tdap/Td vaccine (3 - Td or Tdap) DTaP/Tdap/Td vaccine (3 - Td or Tdap) [facility] Start: 05-30-2024 DTaP/Tdap/Td vaccine (3 - Td) DTaP/Tdap/Td vaccine (3 - Td) [place], [place] Start: 05-30-2024 DTaP/Tdap/Td vaccine (7 - Td or Tdap) DTaP/Tdap/Td vaccine (7 - Td or Tdap) [facility] Start: 05-30-2024 Tetanus vaccination [facility] Start: 03-24-2024 Depression Screen Depression Screen [facility] Start: 11-18-2022 Depression Screen Depression Screen [facility] Start: 11-18-2022 Thyroid stimulating hormone measurement TSH testing [facility] Start: 2021 Diabetes screen Diabetes screen [facility] Start: 03-28-2021 COVID-19 Vaccine (3 - Booster for Moderna series) COVID-19 Vaccine (3 - Booster for Moderna series) [facility] Start: 09-28-2020 Cervical cancer screen Cervical canc er screen [place], [place] Start: 09-28-2020 Screening for malign ant neoplasm of cervix [facility] Start: 06-18-2020 Influenza vaccinatio n given Sequential Influenza Vaccine (#1) [facility] Start: 06-18-2019 Influenza vaccination Flu vaccine (# 1) [place], [place] Start: 06-18-2019 Influenza vaccinatio n given SEQUENTIAL INFLUENZA VACCINE (#1) [facility] Start: 04-24-2019 End: 04-24-2019 Office Visit 04/24/2019 Office Visit Behzad Rockwell MD [address] [place] [address] [phone] [facility] Start: 08-05-2018 TSH testing TSH testing [facility] [place], [place] Start: 06-18-2018 Influenza vaccinatio n given SEQUENTIAL INFLUENZA VACCINE (#1) [facility] Start: 05-02-2018 Ambulatory 05/02/2018 Off ice Visit Behzad Rockwell MD [address] [place] [address] [phone] [facility] Start: 11-01-2017 Ambulatory 11/01/2017 Off ice Visit Behzad Rockwell MD [address] [place] [address] [phone] [facility] Start: 08-02-2017 Ambulatory 08/02/2017 Off ice Visit Behzad Rockwell MD [address] [place] [address] [phone] [facility] Start: 06-18-2017 Influenza vaccination SEQUENTI AL INFLUENZA VACCINE (#1) [facility] Work Phone: Start: 06-18-2017 SEQUENTIAL INFLUENZA VACCINE (#1) SEQUENTIAL INFLUENZA VACCINE (#1) [facility] Work Phone: Start: 2016 Screening for malign ant neoplasm of cervix HPV (without or with Pap) [facility] Start: 2004 Hepatitis C antibody , confirmatory test Hepatitis C Screening [facility] Start: 2004 Hepatitis C screening Hepatitis C sc reen [facility] Start: 10-04-2002 Hepatitis A vaccine (2 of 2 - 2-dose series) Hepatitis A vaccine (2 of 2 - 2-dose series) [facility] Start: 2001 HIV screen HIV screen [facility] [place] Start: 2001 HIV screening [facility] Start: 12-25-1999 Varicella Vaccine (1 of 2 - 13+ 2-dose series) Varicella Vaccine (1 of 2 - 13+ 2-dose series) [place], [place] Start: 1998 Adolescent depressio n screening assessment Depression Screening (PHQ9) [facility] Start: 1989 History and physical examination, annual for health maintenance Wellness Visit [facility] Start: 12-25-1987 Varicella vaccine (1 of 2 - 2-dose childhood series) Varicella vaccine (1 of 2 - 2-dose childhood series) [facility] Start: 1986 Cytopathology procedure, preparation of smear, genital source PAP SMEAR [facility] Work Phone: Start: 1986 Hepatitis C screening Hepatitis C sc reen [facility] Start: 1986 Screening for malign ant neoplasm of cervix PAP SMEAR [facility] Work Phone: Start: 1986 TETANUS EVERY 10 YR TETANUS EVERY 10 YR [facility] Work Phone: Start: 1986 Tetanus vaccination TETANUS EVERY 10 YR [facility] Work Phone: End: 09-12-2020 Blood zinc measurement Zinc Lab Routine Bariatric surgery status 1 Occurrences starting 09/12/2019 until 09/12/2020 [facility] Comment on above: 1 Occurrences starti ng 09/12/2019 until 09/12/2020 End: 08-10-2018 CBC and Differential CBC and Differential Routine Bariatric surgery status 1 Occurrences starting 08/09/2017 until 08/10/2018 [facility] Work Phone: Comment on above: 1 Occurrences starti ng 08/09/2017 until 08/10/2018 End: 08-10-2018 Ceruloplasmin Ceruloplasmin Routine Bariatric surgery status 1 Occurrences starting 08/09/2017 until 08/10/2018 [facility] Work Phone: Comment on above: 1 Occurrences starti ng 08/09/2017 until 08/10/2018 End: 09-12-2020 Cobalamin (Vitamin B12) [Mass/Vol] Vitamin B12 Lab Routine Bariatric surgery status 1 Occurrences starting 09/12/2019 until 09/12/2020 [facility] Comment on above: 1 Occurrences starti ng 09/12/2019 until 09/12/2020 End: 08-10-2018 Cobalamin (Vitamin B12) mass conc Vitamin B12 Routine Bariatric surgery status 1 Occurrences starting 08/09/2017 until 08/10/2018 [facility] Work Phone: Comment on above: 1 Occurrences starti ng 08/09/2017 until 08/10/2018 End: 08-10-2018 Comprehensive metabolic 2000 panel Comprehensive Metabolic Panel Routine Bariatric surgery status 1 Occurrences starting 08/09/2017 until 08/10/2018 [facility] Work Phone: Comment on above: 1 Occurrences starti ng 08/09/2017 until 08/10/2018 External Lab Iron External Lab I amanda Routine 11/12/2018 [facility] End: 08-09-2018 Ferritin [Mass/volume] in Serum or Plasma Ferritin Routine Bariatric surgery status 1 Occurrences starting 08/09/2017 until 08/09/2018 [facility] Work Phone: Comment on above: 1 Occurrences starti ng 08/09/2017 until 08/09/2018 End: 08-10-2018 Folate Folate Routine Bariatric surgery status 1 Occurrences starting 08/09/2017 until 08/10/2018 [facility] Work Phone: Comment on above: 1 Occurrences starti ng 08/09/2017 until 08/10/2018 End: 09-12-2020 Folate [Mass/Vol] Folate Lab Routine Bariatric surgery status 1 Occurrences starting 09/12/2019 until 09/12/2020 [facility] Comment on above: 1 Occurrences starti ng 09/12/2019 until 09/12/2020 End: 08-10-2018 Hemoglobin A1c/Hemoglobin.total mass fraction (Bld) Hemoglobin A1c Routine Bariatric surgery status 1 Occurrences starting 08/09/2017 until 08/10/2018 [facility] Work Phone: Comment on above: 1 Occurrences starti ng 08/09/2017 until 08/10/2018 End: 09-12-2020 Iron measurement Iron Study with Ferritin Lab Routine Bariatric surgery status 1 Occurrences starting 09/12/2019 until 09/12/2020 [facility] Comment on above: 1 Occurrences starti ng 09/12/2019 until 09/12/2020 End: 08-10-2018 Lipid panel Lipid Panel Routine Bariatric surgery status 1 Occurrences starting 08/09/2017 until 08/10/2018 [facility] Work Phone: Comment on above: 1 Occurrences starti ng 08/09/2017 until 08/10/2018 End: 08-10-2018 PTH, Intact PTH, Intact Routine Bariatric surgery status 1 Occurrences starting 08/09/2017 until 08/10/2018 [facility] Work Phone: Comment on above: 1 Occurrences starti ng 08/09/2017 until 08/10/2018 End: 09-12-2020 Pyridoxal 5 phosphate level Vitamin B6 Lab Routine Bariatric surgery status 1 Occurrences starting 09/12/2019 until 09/12/2020 [facility] Comment on above: 1 Occurrences starti ng 09/12/2019 until 09/12/2020 End: 08-10-2018 Reticulocytes panel - Blood Reticulocyte Routine Bariatric surgery status 1 Occurrences starting 08/09/2017 until 08/10/2018 [facility] Work Phone: Comment on above: 1 Occurrences starti ng 08/09/2017 until 08/10/2018 End: 09-12-2020 Thiamine measurement Vitamin B1, Whole Blood Lab Routine Bariatric surgery status 1 Occurrences starting 09/12/2019 until 09/12/2020 [facility] Comment on above: 1 Occurrences starti ng 09/12/2019 until 09/12/2020 End: 08-10-2018 Thyrotropin Qn TSH Routine Bariatric surgery status 1 Occurrences starting 08/09/2017 until 08/10/2018 [facility] Work Phone: Comment on above: 1 Occurrences starti ng 08/09/2017 until 08/10/2018 End: 04-02-2023 Thyroxine (T4) free [Mass/volume] in Serum or Plasma [facility] Comment on above: 1 Occurrences starti ng 04/02/2023 until 04/02/2023 End: 08-10-2018 Vitamin A Vitamin A Routine Bariatric surgery status 1 Occurrences starting 08/09/2017 until 08/10/2018 [facility] Work Phone: Comment on above: 1 Occurrences starti ng 08/09/2017 until 08/10/2018 End: 09-12-2020 Vitamin A measurement Vitamin A Lab Routine Bariatric surgery status 1 Occurrences starting 09/12/2019 until 09/12/2020 [facility] Comment on above: 1 Occurrences starti ng 09/12/2019 until 09/12/2020 End: 08-10-2018 Vitamin B1, Whole Blood Vitamin B1, Whole Blood Routine Bariatric surgery status 1 Occurrences starting 08/09/2017 until 08/10/2018 [facility] Work Phone: Comment on above: 1 Occurrences starti ng 08/09/2017 until 08/10/2018 End: 08-10-2018 Vitamin B6 Vitamin B6 Routine Bariatric surgery status 1 Occurrences starting 08/09/2017 until 08/10/2018 [facility] Work Phone: Comment on above: 1 Occurrences starti ng 08/09/2017 until 08/10/2018 End: 09-12-2020 Vitamin D, 25-hydroxy measurement Vitamin D, Total, 25-OH Lab Routine Bariatric surgery status 1 Occurrences starting 09/12/2019 until 09/12/2020 [facility] Comment on above: 1 Occurrences starti ng 09/12/2019 until 09/12/2020 End: 08-10-2018 Vitamin D, Total, 25-OH Vitamin D, Total, 25-OH Routine Bariatric surgery status 1 Occurrences starting 08/09/2017 until 08/10/2018 [facility] Work Phone: Comment on above: 1 Occurrences starti ng 08/09/2017 until 08/10/2018 End: 08-10-2018 Zinc Zinc Routine Bariatric surgery status 1 Occurrences starting 08/09/2017 until 08/10/2018 [facility] Work Phone: Comment on above: 1 Occurrences starti ng 08/09/2017 until 08/10/2018 Immunizations Immunization Date Immunization Notes Care Provider [facility] 07-23-2022 influenza, injectabl e, quadrivalent, preservative free Loli Matias MD Work Phone: [facility] 09-10-2021 influenza virus vaccine, unspecified formulation Loli Matias MD Work Phone: [facility] Work Phone: 10-28-2020 COVID-19, Moderna, Primary or Immunocompromised, PF, 100mcg/0.5mL Loli Matias MD Work Phone: [facility] Work Phone: 10-28-2020 COVID-19, Pfizer Pur ple top, DILUTE for use, 12+ yrs, 30mcg/0.3mL dose Loli Matias MD Work Phone: [facility] Work Phone: 10-04-2020 COVID-19, Moderna, Primary or Immunocompromised, PF, 100mcg/0.5mL Loli Matias MD Work Phone: [facility] Work Phone: 10-04-2020 COVID-19, Pfizer Pur ple top, DILUTE for use, 12+ yrs, 30mcg/0.3mL dose Loli Matias MD Work Phone: [facility] 08-04-2017 tuberculin skin test ; purified protein derivative solution, intradermal [facility] [place] 08-04-2017 unknown vaccine or immune globulin Loli Matias MD Work Phone: [facility] 05-30-2014 tetanus toxoid, redu rachael diphtheria toxoid, and acellular pertussis vaccine, adsorbed [facility] [place] 04-05-2012 tetanus toxoid, redu rachael diphtheria toxoid, and acellular pertussis vaccine, adsorbed [facility] 04-05-2012 tuberculin skin test ; purified protein derivative solution, intradermal [facility] [place] 02-24-2006 hepatitis B vaccine, pediatric or pediatric/adolescent dosage Loli Matias MD Work Phone: [facility] 10-26-2005 hepatitis B vaccine, pediatric or pediatric/adolescent dosage Loli Matias MD Work Phone: [facility] 09-24-2005 hepatitis B vaccine, pediatric or pediatric/adolescent dosage Loli Matias MD Work Phone: [facility] 04-04-2002 hepatitis A and hepatitis B vaccine Loli Matias MD Work Phone: [facility] 04-04-2002 TD(adult) unspecifie d formulation Loli Matias MD Work Phone: [facility] 01-28-1999 measles, mumps and rubella virus vaccine Loli Matias MD Work Phone: [facility] 04-17-1992 diphtheria, tetanus toxoids and acellular pertussis vaccine, unspecified formulation Loli Matias MD Work Phone: [facility] 05-06-1988 diphtheria, tetanus toxoids and pertussis vaccine Loli Matias MD Work Phone: [facility] 05-06-1988 measles, mumps and rubella virus vaccine Loli Matias MD Work Phone: [facility] 01-01-1988 diphtheria, tetanus toxoids and pertussis vaccine Loli Matias MD Work Phone: [facility] 05-01-1987 diphtheria, tetanus toxoids and pertussis vaccine Loli Matias MD Work Phone: [facility] Payers Date Payer Category Payer Unknown [id number] 2022 Unknown [id number] 2019 Unknown BCBS [place] P PO [id number] 2019-Present [phone] [address] [place] [address] [id number] 2019 Unknown [facility] [place] CE PLUS [id number] 2019-Present [id number] 2018 Unknown [id number] 2018 Private Health Insurance AETNA A ETNA CHOICE POS/POSII/PREMIER CARE/PREMIER CARE PLUS xxxxxxxxxx 2018-Present xxxxxxxxxx [id number] 2018 Private Health Insurance [id number] 2017 Unknown [id number] 3 2017 Unknown [id number] 1986 Unknown [id number] 1986 Unknown [id number] 1986 Unknown [id number] 1986 Unknown [id number] 1986 Unknown [id number] 1986 Unknown [id number] 1959 Self-pay 1959 Unknown [id number] Unknown [id number] 3 Social History Date Type Detail Facility Start: 06-01-2017 End: 03-24-2023 Tobacco smoking status DCIS Never smoker [facility] Work Phone: Start: 1985 Sex Assigned At Not on file O [facility] Work Phone: Start: 04-26-2019 End: 07-17-2019 Alcohol intake No [facility] Start: 09-12-2019 End: 03-24-2023 Alcohol intake Current non-drinker of alcohol (finding) [facility] Start: 09-12-2019 End: 03-24-2023 Tobacco use and exposure Never used [facility] Start: 01-13-2022 Alcohol intake [facility] Work Phone: Start: 11-18-2021 History SDOH Financial 5 Di[facility] Work Phone: Start: 11-18-2021 End: 03-24-2023 History SDOH Food Worry 1 [employer] Phone: Start: 03-24-2023 History SDOH Financial 4 [facility] [employer] Start: 03-24-2023 History SDOH Transpo rt Non-Med 2 [facility] [facility] [employer] Medical Equipment Procedure Code Equipment Code Equipment Origin al Text Equipment Identifier Dates Kit 4ml Vh S/D Tisseel Frozen - [id number] Start: 04-30-2017 Strip Ech 60 Pranav nf Bovine Dorothy-Strips Dry W/Veritas - [id number] Start: 04-30-2017 Kit 4ml Vh S/D Tisseel Frozen - [id number] Start: 04-30-2017 Strip Ech 60 Pranav nf Bovine Dorothy-Strips Dry W/Veritas - [id number] Start: 04-30-2017 Kit 4ml Vh S/D Tisseel Frozen - [id number] Start: 04-30-2017 Strip Ech 60 Pranav nf Bovine Dorothy-Strips Dry W/Veritas - [id number] Start: 04-30-2017 Kit 4ml Vh S/D Tisseel Frozen - [id number] Start: 04-30-2017 Strip Ech 60 Pranav nf Bovine Dorothy-Strips Dry W/Veritas - [id number] Start: 04-30-2017 Kit 4ml Vh S/D Tisseel Frozen - [id number] Start: 04-30-2017 Strip Ech 60 Pranav nf Bovine Dorothy-Strips Dry W/Veritas - [id number] Start: 04-30-2017 Kit 4ml Vh S/D Tisseel Frozen - [id number] Start: 04-30-2017 Comment on above: Description: 8ml use d ( 2-4ml kits) Clarification for billing purpose 8 ml = 4 used 0 wasted Strip Ech 60 Pranav nf Bovine Dorothy-Strips Dry W/Veritas - [id number] Start: 04-30-2017 Comment on above: Description: Charge Only Kit 4ml Vh S/D Tisseel Frozen - [id number] Start: 04-30-2017 Strip Ech 60 Pranav nf Bovine Dorothy-Strips Dry W/Veritas - [id number] Start: 04-30-2017 Kit 4ml Vh S/D Tisseel Frozen - [id number] Start: 04-30-2017 Strip Ech 60 Pranav nf Bovine Dorothy-Strips Dry W/Veritas - [id number] Start: 04-30-2017 Evaluation note Note Date & Type Note Facility Evaluation note Diagnosis Acquired hypothyroidism Unspecified hypothyroidism documented in this encounter [facility] [employer] Phone: Evaluation note Note Date & Type Note Facility Evaluation note Diagnosis Acquired hypothyroidism Unspecified hypothyroidism [facility] in this [facility] Diagnosis Bariatric surgery status - P rimary Diagnosis Bariatric surgery status - P rimary Diagnosis Bariatric surgery status - P rimary Diagnosis Thyroid nodule Nontoxic uninodular goiter Diagnosis Bariatric surgery status Obesity, Class I, BMI 30-34.9 Diagnosis Epigastric pain Abdominal pain, epigastric History of pancreatitis Personal history of other diseases of digestive system Summary Purpose Family History No Family History Records FoundNo Family History Records FoundNo Family History Records FoundNo Family History Records FoundNo Family History Records FoundNo Family History Records Found Advance Directives No Advanced Directives Records FoundDocuments on File Type Date 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 Advance Directives and Living Will Latest Code Status on File Code Status Date Activated Date Inactivated Comments Full Code 04/30/2017 12:41 PM 05/02/2017 7:17 PM Documents on File Type Date 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 [facility] POSTOP BARIATRIC VISIT PATIENT NAME: Sukhdev Schwartz DATE OF : 1985 DATE OF VISIT: 08/09/17 Chief Complaint Patient presents with morbid obesity Follow-up GS on 04/30/17. Preop wt: 350. Todays wt: 295. Wt Readings from Last 4 Encounters: 08/09/17 133.8 kg (295 lb) 06/01/17 (!) 144.7 kg (319 lb) 05/10/17 (!) 147.4 kg (325 lb) 04/30/17 (!) 156.2 kg (344 lb 5.7 oz) BMI: Body mass index is 40.01 kg/(m^2). BP 130/74 (BP Location: Left arm, Patient Position: Sitting) Pulse 85 Temp 97.5 F (36.4 C) (Tympanic) Ht 6' Wt 133.8 kg (295 lb) LMP 07/28/2017 BMI 40.01 kg/m2 SURGERY PERFORMED: SLEEVE GASTRECTOMY Review of Systems Constitutional: Negative for chills and fever. HENT: Negative for ear pain and nosebleeds. Eyes: Negative for photophobia and pain. Respiratory: Negative for choking and stridor. Cardiovascular: Negative for chest pain and palpitations. Gastrointestinal: Negative for anal bleeding and rectal pain. Endocrine: Negative for cold intolerance and polydipsia. Genitourinary: Negative for flank pain and hematuria. Neurological: Negative for syncope and light-headedness. Psychiatric/Behavioral: Negative for hallucinations, self-injury and suicidal ideas. Past Medical History: Diagnosis Date Back pain GERD (gastroesophageal reflux disease) Hyperlipidemia 04/23/17 bloodwork normal lately Hypertension Hypothyroid Osteoarthritis Peripheral neuropathy toes right foot (r/t herniated lumbar disc) Past Surgical History: Procedure Laterality Date BACK SURGERY 12/2016 L4-L5 microdiscectomy EGD N/A 12/01/2016 Procedure: EGD W/ BIOPSY; Surgeon: Behzad Hu MD; Location: [facility]; Service: GASTRIC SLEEVE BYPASS LAPAROSCOPIC WITH EGD N/A 04/30/2017 Procedure: LAPAROSCOPIC SLEEVE GASTRECTOMY HIATAL HERNIA REPAIR LIVER BIOPSY ESOPHAGOGASTRODUODENOSCOPY; Surgeon: Behzad Hu MD; Location: [facility] Main OR; Service: Social History Social History Marital status: Spouse name: N/A Number of children: N/A Years of education: N/A Occupational History Not on file. Social History Main Topics Smoking status: Never Smoker Smokeless tobacco: Never Used Alcohol use No Drug use: No Sexual activity: Not on file Other Topics Concern Not on file Social History Narrative No Known Allergies Current Outpatient Prescriptions on File Prior to Visit Medication Sig acetaminophen (TYLENOL) 650 MG CR tablet Take 650 mg by mouth 2 (two) times a day as needed for pain. amLODIPine (NORVASC) 10 MG tablet Take 1 tablet by mouth daily biotin 10,000 mcg cap Take 10,000 mcg by mouth daily. calcium citrate-vitamin D (CITRACAL+D) 315-200 mg-unit per tablet Take 1,200 tablets by mouth daily. cyanocobalamin (vitamin B-12) 1000 MCG tablet Take 1,000 mcg by mouth daily She is taking 500 sl. Cutting in half. . levothyroxine (SYNTHROID) 50 MCG tablet Take 1 tablet by mouth every morning (before breakfast) pantoprazole (PROTONIX) 40 MG tablet Take 1 (one) tablet (40 mg total) by mouth daily. pediatric slheepgs-[id number]-[id number] (flintstones complete) Chew Chew and Swallow Take two daily . ranitidine (ZANTAC) 150 MG tablet Take 150 mg by mouth 2 (two) times a day. senna-docusate (SENNALAX-S) 8.6-50 mg Take 1 tablet by mouth daily as needed . No current facility-administered medications on file prior to visit. Physical Exam Constitutional: She is oriented to person, place, and time. HENT: Head: Normocephalic and atraumatic. Eyes: EOM are normal. No scleral icterus. Neck: Neck supple. No tracheal deviation present. Cardiovascular: Normal rate and regular rhythm. Pulmonary/Chest: Effort normal. She exhibits no tenderness. Abdominal: Soft. There is no rebound and no guarding. Incisions clean, dry, intact Neurological: She is alert and oriented to person, place, and time. Psychiatric: She has a normal mood and affect. Her behavior is normal. Assessment/Plan: The patient is losing the expected amount of weight after surgery. The patient denies complaints and is doing very well. Postoperative diet is being adhered to. We have reviewed proper food choices, eating habits, and the importance of regular exercise. Plan to follow up on routinepost op Bariatric schedule. Continue vitamin supplementation. We have reviewed the appropriate lifestyle and behavior modifications important for success after bariatric surgery. Annual postoperativebariatric labs to be ordered in 3 months. Behzad Hu MD 08/09/17 TIME: a total of 15 minutes were spent in the care of the patient, >50% of the visit was counseling/coordinating care * Teresa Aviles MA - 08/09/2017 2:06 PM EDT .. ..Sukhdev Schwartz who is 3 months s/p Laparoscopic GS. Patient's weight loss is approximately 24 lbs since their last visit on 06/01/17. Patient has not had hospitalization or complications since their surgery. Overall the patient level of energy has increased. Meal portion size is 6-8 oz. Meal duration is 20-30 minutes. Protein 50-60 grams. Fluids 64+ oz. Patient is solids from liquids. Patient does have satisfaction with small meals. Patient is not exercising. Patient is taking their bariatric supplements as directed. Patient is not using CPAP/BiPAP. Concerns: None. in this encounter* Leida Orellana MA - 02/13/2019 12:11 PM EDT labs documented in this encounter* Leida Orellana MA - 02/13/2019 12:10 PM EDT labs documented in this encounter* Behzad Hu MD - 09/12/2019 4:49 PM EST [facility] POSTOP BARIATRIC VISIT PATIENT NAME: Sukhdev Schwartz DATE OF : 1985 DATE OF VISIT: 09/12/19 Chief Complaint Patient presents with obesity Follow-up GS 04/30/17. Prop wt: 350. 10/24/18 229lbs 09/12/19 wt= 240lbs Wt Readings from Last 4 Encounters: 09/12/19 103.9 kg (229 lb) 10/24/18 103.9 kg (229 lb) 11/08/17 120.7 kg (266 lb) 08/09/17 133.8 kg (295 lb) BMI: Body mass index is 31.06 kg/m . BP 126/85 Pulse 73 Ht 6' Wt 103.9 kg (229 lb) BMI 31.06 kg/m SURGERY PERFORMED: SLEEVE GASTRECTOMY Review of Systems Constitutional: Negative for chills and fever. HENT: Negative for ear pain and nosebleeds. Eyes: Negative for photophobia and pain. Respiratory: Negative for choking and stridor. Cardiovascular: Negative for chest pain and palpitations. Gastrointestinal: Negative for anal bleeding and rectal pain. Endocrine: Negative for cold intolerance and polydipsia. Genitourinary: Negative for flank pain and hematuria. Neurological: Negative for syncope and light-headedness. Psychiatric/Behavioral: Negative for hallucinations, self-injury and suicidal ideas. Past Medical History: Diagnosis Date Back pain GERD (gastroesophageal reflux disease) Hyperlipidemia 04/23/17 bloodwork normal lately Hypertension Hypothyroid Osteoarthritis Peripheral neuropathy toes right foot (r/t herniated lumbar disc) Past Surgical History: Procedure Laterality Date BACK SURGERY 12/2016 L4-L5 microdiscectomy EGD N/A 12/01/2016 Procedure: EGD W/ BIOPSY; Surgeon: Behzad Hu MD; Location: [facility]; Service: GASTRIC SLEEVE BYPASS LAPAROSCOPIC WITH EGD N/A 04/30/2017 Procedure: LAPAROSCOPIC SLEEVE GASTRECTOMY HIATAL HERNIA REPAIR LIVER BIOPSY ESOPHAGOGASTRODUODENOSCOPY; Surgeon: Behzad Hu MD; Location: [facility] Main OR; Service: Social History Socioeconomic History Marital status: Spouse name: Not on file Number of children: Not on file Years of education: Not on file Highest education level: Not on file Occupational History Not on file Social Needs Financial resource strain: Not on file Food insecurity Worry: Not on file Inability: Not on file Transportation needs Medical: Not on file Non-medical: Not on file Tobacco Use Smoking status: Never Smoker Smokeless tobacco: Never Used Substance and Sexual Activity Alcohol use: No Drug use: No Sexual activity: Not on file Lifestyle Physical activity Days per week: Not on file Minutes per session: Not on file Stress: Not on file Relationships Social connections Talks on phone: Not on file Gets together: Not on file Attends bahai service: Not on file Active member of club or organization: Not on file Attends meetings of clubs or organizations: Not on file Relationship status: Not on file Other Topics Concern Not on file Social History Narrative Not on file No Known Allergies Current Outpatient Medications on File Prior to Visit Medication Sig acetaminophen (TYLENOL) 650 MG CR tablet Take 650 mg by mouth 2 (two) times a day as needed for pain. levothyroxine (SYNTHROID) 50 MCG tablet Take 1 tablet by mouth every morning (before breakfast) vitamin with Ca-Iron-FA 27-1 mg Tab Take 1 tablet by mouth daily . ranitidine (ZANTAC) 150 MG tablet Take 150 mg by mouth 2 (two) times a day. biotin 10,000 mcg cap Take 10,000 mcg by mouth daily. calcium citrate-vitamin D (CITRACAL+D) 315-200 mg-unit per tablet Take 1,200 tablets by mouth daily. cholecalciferol, vitamin D3, (VITAMIN D3) 5,000 unit Tab tablet Take by mouth daily . coenzyme Q10 (CO Q-10) 400 mg cap Take by mouth . cyanocobalamin (vitamin B-12) 1000 MCG tablet Take 1,000 mcg by mouth daily She is taking 500 sl. Cutting in half. . metFORMIN (GLUCOPHAGE) 500 MG tablet Take 500 mg by mouth 2 (two) times a day with meals. naltrexone 4.5 mg capsule Take 4.5 mg by mouth daily . vitamin E 400 UNIT capsule Take 400 Units by mouth daily . No current facility-administered medications on file prior to visit. Physical Exam Constitutional: She is oriented to person, place, and time. HENT: Head: Normocephalic and atraumatic. Eyes: EOM are normal. No scleral icterus. Neck: Neck supple. No tracheal deviation present. Cardiovascular: Normal rate and regular rhythm. Pulmonary/Chest: Effort normal. She exhibits no tenderness. Abdominal: Soft. There is no rebound and no guarding. Incisions clean, dry, intact Neurological: She is alert and oriented to person, place, and time. Psychiatric: She has a normal mood and affect. Her behavior is normal. Assessment/Plan: The patient is losing the expected amount of weight after surgery. The patient denies complaints and is doing very well. Postoperative diet is being adhered to. We have reviewed proper food choices, eating habits, and the importance of regular exercise. Plan to follow up on routinepost op Bariatric schedule. Continue vitamin supplementation. We have reviewed the appropriate lifestyle and behavior modifications important for success after bariatric surgery. Annual postoperativebariatric labs to be checked now. The patient denies smoking. Behzad Hu MD 09/12/19 TIME: a total of 15 minutes were spent in the care of the patient, >50% of the visit was counseling/coordinating care * Valery Thomason RN - 09/12/2019 3:38 PM EST ....Sukhdev Schwartz who is 2 years 6 months s/p Laparoscopic GS. Patient's weight Gain is approximately 11 lbs since 10/24/18 Patient has not had hospitalization or complications since their surgery. 07/19/19 Micki Perdomo Overall the patient level of energy is same. Meal portion size is doesn't measure oz/cup. Meal duration is 20-30 minutes. Protein 6-70 grams. Fluids 64 oz. Patient is solids from liquids. Patient does have satisfaction with small meals. Patient is not exercising. Amount of exercising per week is approximately 0 days per week. Patient is taking their bariatric supplements as directed. Patient does not have MICHAEL. Patient is not using CPAP/BiPAP. Patient is not smoking. Last bariatric labs drawn on : 11/12/18 Presently doing fertility drugs also documented in this encounter* Leida Orellana MA - 09/20/2019 3:53 PM EST External labs documented in this encounter* Leida Orellana MA - 09/18/2019 10:11 AM EST External labs documented in this encounter* Leida Orellana MA - 09/18/2019 10:23 AM EST External labs documented in this encounter* Leida Orellana MA - 02/13/2019 12:11 PM EDT labs documented in this encounter* Leida Orellana MA - 02/13/2019 12:12 PM EDT labs documented in this encounter Reason for Referral Status Reason Specialty Diagnoses / Procedures Referred By Contact Referred To Contact Pending Review Radiology Diagnoses Thyroid nodule Procedures US HEAD NECK SOFT TISSUE THYROID US, HEAD/NECK TISSUES,REAL TIME Loli Matias MD [address] [place] [address] Specialty Diagnoses / Procedures Referred By Contac t Referred To Contact Radiology Diagnoses Acquired hypothyroidism Procedures US HEAD NECK SOFT TISSUE THYROID Nissa Lo APRN - JULES [address] [address] Referral ID Status Reason Start Date Expiration Date V isits Requested Visits Authorized [id number] Pending Review 11/09/2022 11/09/2023 1 1 Hospital Course Note --- --- --- --- --- --- --- --- --- From: Ac, DirectInbox To: SUKHDEV SCHWARTZ Sent: 07/20/19 02:30:39 AM EDT Subject: Discharge Summary Ready to View A summary regarding your recent visit is available in the Documents section of your health record. Note Admission Information Admit Date/Time:07/18/2019 02:24 Admitting Physician - Aron ALVARADO DO Consulting Physician - CAPRICE GUSTAFSON, [place] [facility] Course Pt is a 33 F admitted with abdominal pain, nausea, vomiting. pt was found to have a gallstone in CBD. Pt was seen by GI and had ERCP with removal of stone. Pt was seen by surgery with Dr. Goel and had laproscopic cholecystectomy. Pt had diet advanced and tolerated well. Pt discharged home in improved condition to follow up with PCP and surgery clinic. discharge time 35 minutes in d/w patient, family at bedside, nursing and surgery Significant Findings No qualifying data available. Physical Exam General: alert, no acute distress ENMT: oral mucosa moist, no pharyngeal erythema or exudate Cardiovascular: regular rate and rhythm, normal peripheral perfusion Respiratory: Lungs CTA, respirations non labored Abdomen: soft, NTND, +BS Skin: warm, dry, intact Extremities: no deformity, no trauma Neurological: LOC appropriate for age, CN II-XI (more content not included)... Note --- --- --- --- --- --- --- --- --- From: Ac DirectInbox To: SUKHDEV SCHWARTZ Sent: 05/29/20 02:30:27 AM EDT Subject: Discharge Summary Ready to View A summary regarding your recent visit is available in the Documents section of your health record. Note DATE OF DISCHARGE: 0 DISCHARGE DIAGNOSIS: Status post missed miscarriage with acute blood loss and hemorrhage and placement of Bakri balloon, transfusion of five units of packed red blood cells and transfusion of two fresh frozen plasma. BRIEF HISTORY AND HOSPITAL COURSE: The patient is a 34-year-old white female who presented to the Emergency Room complaining of heavy bleeding. It had been ongoing for approximately a week. She had blood coming out when she came to the Emergency Room. This originally stopped. The patient had some orthostasis and on repeat examination in the Emergency Room, the patient's hemoglobin had gone from 12 on initial presentation down to 9. At that time, I was called to see the patient and after clearing clots, the patient clearly had excessive bleeding from the cervical os. A minimal amount of tissue was removed from the cervical os but she continued to bleed significantly. She was then taken down to the Operating Room and under general anesthesia, s (more content not included)... Note Patient: SUKHDEV SCHWARTZ Age: 33 years Sex: Female : 1985 Associated Diagnoses: None Author: Davie Eaton Jr, DO Postoperative Information Post Operative Note: Post Anesthesia Care Unit. Anesthetic utilized: Monitored anesthesia care. Health Status Allergies: Allergic Reactions (Selected) Severe Pollen- Hayfever. Severity Not Documented Levaquin- Liver damage. Problem list: All Problems Ovarian dysfunction / SNOMED CT 38004425 / Confirmed Hypothyroidism / SNOMED CT 92531225 / Confirmed Pancreatitis / SNOMED CT 275119767 / Confirmed Physical Examination Vital Signs 07/18/2019 11:24 EDT Temperature Oral 36.5 DegC Heart Rate Monitored 52 bpm LOW Respiratory Rate 18 br/min Systolic Blood Pressure 132 mmHg Diastolic Blood Pressure 84 mmHg Mean Arterial Pressure, Monitered 100 mmHg SpO2 97 % 07/18/2019 10:50 EDT Temperature Temporal Artery 36.4 DegC Heart Rate Monitored 58 bpm LOW Respiratory Rate Monitored 15.0 br/min Systolic Blood Pressure 119 mmH (more content not included)... Note Patient: SUKHDEV SCHWARTZ MRN: Age: 33 years Sex: Female : 1985 Associated Diagnoses: None Author: Davie Eaton Jr, DO Postoperative Information Post Operative Note: Post Anesthesia Care Unit. Anesthetic utilized: General. Health Status Allergies: Allergic Reactions (Selected) Severe Pollen- Hayfever. Severity Not Documented Levaquin- Liver damage. Problem list: All Problems Ovarian dysfunction / SNOMED CT 91349506 / Confirmed Hypothyroidism / SNOMED CT 33141257 / Confirmed Incomplete miscarriage / SNOMED CT 371366439 / Confirmed missed Pancreatitis / SNOMED CT 478859571 / Confirmed Physical Examination Vital Signs 10/20/2019 15:11 EST Heart Rate Monitored 57 bpm LOW Respiratory Rate 16 br/min Systolic Blood Pressure 122 mmHg Diastolic Blood Pressure 80 mmHg Blood Pressure Location Left arm Mean Arterial Pressure, Monitered 94 mmHg SpO2 100 % BP/Pulse Patient Position Supine 10/20/2019 15:11 EST Temperature Temporal Artery 36.0 DegC LOW 10/20/2019 14:50 EST (more content not included)... Procedure Findings Note Patient: SUKHDEV SCHWARTZ MRN: Age: 33 years Sex: Female : 1985 Associated Diagnoses: None Author: Davie Eaton Jr, DO Postoperative Information Post Operative Note: Post Anesthesia Care Unit. Anesthetic utilized: Monitored anesthesia care. Health Status Allergies: Allergic Reactions (Selected) Severe Pollen- Hayfever. Severity Not Documented Levaquin- Liver damage. Problem list: All Problems Ovarian dysfunction / SNOMED CT 75927015 / Confirmed Hypothyroidism / SNOMED CT 92101937 / Confirmed Pancreatitis / SNOMED CT 238838568 / Confirmed Physical Examination Vital Signs 07/18/2019 11:24 EDT Temperature Oral 36.5 DegC Heart Rate Monitored 52 bpm LOW Respiratory Rate 18 br/min Systolic Blood Pressure 132 mmHg Diastolic Blood Pressure 84 mmHg Mean Arterial Pressure, Monitered 100 mmHg SpO2 97 % 07/18/2019 10:50 EDT Temperature Temporal Artery 36.4 DegC Heart Rate Monitored 58 bpm LOW Respiratory Rate Monitored 15.0 br/min Systolic Blood Pressure 119 mmH (more content not included)... Note Patient: SUKHDEV SCHWARTZ Age: 33 years Sex: Female : 1985 Associated Diagnoses: None Author: Davie Eaton Jr, DO Postoperative Information Post Operative Note: Post Anesthesia Care Unit. Anesthetic utilized: General. Health Status Allergies: Allergic Reactions (Selected) Severe Pollen- Hayfever. Severity Not Documented Levaquin- Liver damage. Problem list: All Problems Ovarian dysfunction / SNOMED CT 95749179 / Confirmed Hypothyroidism / SNOMED CT 76718037 / Confirmed Incomplete miscarriage / SNOMED CT 427927582 / Confirmed missed Pancreatitis / SNOMED CT 046115773 / Confirmed Physical Examination Vital Signs 10/20/2019 15:11 EST Heart Rate Monitored 57 bpm LOW Respiratory Rate 16 br/min Systolic Blood Pressure 122 mmHg Diastolic Blood Pressure 80 mmHg Blood Pressure Location Left arm Mean Arterial Pressure, Monitered 94 mmHg SpO2 100 % BP/Pulse Patient Position Supine 10/20/2019 15:11 EST Temperature Temporal Artery 36.0 DegC LOW 10/20/2019 14:50 EST (more content not included)... Additional Source Comments INFORMATION SOURCE (unrecogn ized section and content) DATE CREATED AUTHOR 04/15/2018 [facility] DATE CREATED AUTHOR AUTHOR'S ORGANIZ ATION 07/23/2019 [facility] DATE CREATED AUTHOR AUTHOR'S ORGANIZ ATION 09/13/2019 [facility] DATE CREATED AUTHOR AUTHOR'S ORGANIZ ATION 06/18/2020 [facility] DATE CREATED AUTHOR AUTHOR'S ORGANIZ ATION 02/14/2023 [facility] DATE CREATED AUTHOR AUTHOR'S ORGANIZ ATION 04/03/2023 Olga osullivan Reason for Visit (unrecogniz ed section and content) Reason Comments Follow-up GS on 04/30/17. Preop wt: 350. Todays wt: 295. Status Reason Specialty Diagnoses / Procedures Referred By Contact Referred To Contact Pending Review Radiology Diagnoses Thyroid nodule Procedures US HEAD NECK SOFT TISSUE THYROID US, HEAD/NECK TISSUES,REAL TIME Loli Matias MD [address] [place] [address] Reason Comments Follow-up GS 04/30/17. Prop wt: 350. 10/24/18 229lbs 09/12/19 wt= 240lbs Reason Onset Date Comments Medication Refill 11/19/2020 Specialty Diagnoses / Procedures Referred By Contac t Referred To Contact Radiology Diagnoses Acquired hypothyroidism Procedures US HEAD NECK SOFT TISSUE THYROID Nissa Lo, [employer]CH[employer]IC - [employer] INSPECTOR [address] [place] [address] Referral ID Status Reason Start Date Expiration Date V isits Requested Visits Authorized [id number] Pending Review 11/09/2022 11/09/2023 1 1 Care Teams (unrecognized sec tion and content) Flask Carrier Relationship Specialty Start Date End Date Loli Matias MD [address] [place] [address] PCP - General 07/24/16 Flask Carrier Relationship Specialty Start Date End Date Loli Matias MD [address] [place] [address] PCP - General 07/24/16 Flask Carrier Relationship Specialty Start Date End Date Loli Matias MD [address] [place] [address] PCP - General 07/24/16 FOR RECORDS PERTAINING TO PATIENTS WHO ARE OR HAVE BEEN ENROLLED IN A CHEMICAL DEPENDENCY/SUBSTANCEABUSE PROGRAM, SOME INFORMATION MAY BE OMITTED. This clinical summary was aggregated from multiple sources. Caution should be exercised in using it in the provision of clinical care. This summary normalizes information from multiple sources, and as a consequence, information in this document may materially change the coding, format and clinical context of patient data. In addition, data may be omitted in some cases. CLINICAL DECISIONS SHOULD BE BASED ON THE PRIMARY CLINICAL RECORDS. [facility]. provides no warranty or guarantee of the accuracy or completeness of information in this document.
== END 2024-01-26 07:32 | disposition home or self-care (01) ==
LOC: VC 07:31
PROVIDERS: PCP Radiology Diagnostic Radiology; Visit Provider Radiology Diagnostic Radiology
DX: I80.01 Phlebitis and thrombophlebitis of superficial vessels of right lower extremity (principal)
CPT/HCPCS: 93971; G0463

== ENCOUNTER 2024-01-31 07:29 | Outpatient (OUT) | payer OTHER, SELFPAY ==
--- NOTE | 2024-01-31 07:30 | VEIN_ITS ---
[address] [address] Patient Name: SUKHDEV WATERMAN MRN: [id number] date: 1985 Sex: F Assigned Patient Location: Current Patient Location: Accession/Order Number: [id number] Exam Date: 01/31/2024 07:33 Report Date: 01/31/2024 08:48 At the request of: DREW MCBRIDE Procedure: VC Endovenous Ablation 1VeinLT EXAMINATION: VC Endovenous Ablation 1VeinLT HISTORY: Pain due to varicose veins of bilateral legs I83.813 COMPARISON: No relevant comparison available. TECHNIQUE: The risks and benefits of the procedure had been previously discussed, and were rediscussed at length. Informed written consent was obtained. Tayler Seay and Jose Escalante assisted. Time out procedure was performed. The left lower extremity was prepared and draped in the usual sterile fashion to allow knee flexion in the sterile field. Duplex ultrasound probe was draped in a sterile cover, sterile transmission gel was used. Venous mapping was performed with the areas of dilation and large tributaries marked. The total length was 32 cm from the entry at the knee to 3 cm below the saphenofemoral junction. The diameter of the greater saphenous vein ranged from 6-11 mm. A 30 gauge needle and 1% buffered lidocaine was used to anesthetize the entry site. A 4 mm incision was made with a scalpel and the saphenous vein was entered percutaneously under direct ultrasound guidance with a micropuncture set, a single stick was successful in gaining access. A micro-guide wire was inserted and the needle removed. A micro-set including a dilator was inserted over the microwire and the needle and dilator were removed. A 0.018 guide wire was inserted through the micro-set and threaded through the saphenous vein to the saphenofemoral junction. The dilator was removed and an introducer sheath was inserted over the wire until the end of the sheath entered the saphenofemoral junction. The dilator and wire were removed and the 600 micron fiber was introduced and placed and positioned so that it extended beyond the sheath and was 3 cm peripheral to the saphenofemoral femoral junction. Final position of the fiber was determined by ultrasound guidance and duplex imaging. Tumescent anesthetic was delivered by ultrasound guidance. 200 cc of fluid was delivered along the entire course of the saphenous vein. The solution consisted of 1000 cc of normal saline with 40 mL of 1% lidocaine and 20 mL of sodium bicarbonate. A final positioning check was made. The energy source was turned on by means of the foot pedal and the fiber and sheath were withdrawn. The total number of Joules delivered was 1572. The laser was active for 197 seconds under continuous pulse, average laser use of 8 J. Laser start time 8:11 AM 01/31/24 . Laser stop time 8:14AM 01/31/24 . A duplex ultrasound revealed compressibility and flow at the saphenofemoral junction immediately after the procedure. Hemostasis at the access site was achieved. The skin incision of the saphenous vein was closed with a 4 x 4. A compression stocking was applied. Postop instructions were given. A follow up appointment was recommended and scheduled. The patient tolerated the procedure well and was discharged in good condition . VEIN/VC Endovenous Ablation 1VeinLT IMPRESSION: Technically successful endovenous laser ablation of the left great saphenous vein Electronically authenticated by: DREW MCBRIDE Date: 01/31/2024 08:48
--- OUTSIDE RECORDS SUMMARY | 2024-01-31 07:32 | XMS_ITS | CCD ---
Author Organization [facility] Care Team Providers Care Computer Networker Name Role Phone Unavailable Unavailable Unavailable VerLoli [...] Unavaila ble Loli Matias Primary Care Provider [phone] Loli Matias Primary Care Provider [phone] RANA, BEHZAD RAJENDRASINH Attending Unavail able LOLI MATIAS Primary Care Unavailable RANA, BEHZAD RAJENDRASINH Attending Unavail able LOLI MATIAS Primary Care Unavailable Loli Matias Primary Care Provider Loli Matias MD Primary Care Provider Loli [...] Propensity to adverse reactions to drug 04-26-2019 [place], [place] (5 sources) levoFLOXacin Drug Allergy 04-26-2019 [place] (3 sources) Penicillins Propensity to adverse reactions to drug 12-01-2011 [place] (3 sources) Seasonal allergy Propensity to adverse reactions to substance 11-18-2021 [facility] (2 sources) Penicillins Propensity to adverse reactions to drug 12-01-2011 [facility] (2 sources) Pollen Propensity to adverse reactions to drug 04-26-2019 [facility] Work Phone: Medications Current Medications Medication Drug [...] Active docusate sodium 50 mg / sennosides, alf 8.6 mg oral tablet (3 sources) take [...] Start: 04-23-2016 take 2 tablets by mo [facility] every eight hours as needed for [...] Active Start: 11-18-2021 [facility] daily pantoprazole (PROTONIX) 40 MG [...] Class(es) Dates Sig (Normalized) Sig (Original) pediatric cuhkwjlh-rzba-zhm (flintstones complete) Chew (2 sources) pediatric kranjmzh-zkqn-lzg (flintstones complete) Chew Chew and Swallow Take two daily . Active Pediatric Multivitamin With Iron And Other Minerals Chewable Tablet (1 source) pediatric rbclgpez-iwex-xth (flintstones complete) Chew Chew and Swallow Take [...] 04-03-2023 Thyroxine, Free 1.4 ng/dL Normal 0.9-1.7 [facility] Comment on above: Performed By: #### F T4 #### [address] [id number] Librarian Helper: Jarek Branch MD #### TSH #### [facility] [address] [place] [address] Librarian Helper: Drew Lee [facility] TSH [Mass/Vol] 0.83 [facility] Thyroid Stim. Horm.on 2022 Thyroid Stim. Horm. 0.83 uIU/mL Normal 0.30-5.00 [facility] Comment on above: Performed By: #### F T4 #### [address] [place], [place] [address] Librarian Helper: Jarek Branch MD #### TSH #### [facility] [address] [place] [address] Librarian Helper: Drew Lee MD US HEAD NECK SOFT [...] Villafuerte Jr., MD 11/11/22 Final result Normal [facility] No significant findings. No specific follow-up needed. [facility] EXAM: US HEAD NECK S OFT TISSUE THYROID HISTORY: Acquired hypothyroidism COMPARISON: 07/14/2019. FINDINGS: Right lobe: 5.8 x 2.0 x 1.8 cm. Isthmus: 3.2 mm. Left lobe: 4.5 x 1.8 x 1.6 cm. Rim calcified benign 6 x 5 x 5 mm nodule inferior left lobe not significant and stable. 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 Thyroid echogenicity normal. [facility] Manny Villafuerte Jr., MD - 11/11/2022 [...] No significant findings. No specific follow-up needed. [employer] Phone: US HEAD NECK SOFT TISSUE THY ROIDOrdered By: Manny Villafuerte on 11-11-2022 [employer] Phone: US HEAD NECK SOFT TISSUE THY ROIDon 11-10-2022 Radiology Study observation (narrative) [employer] Phone: Coding Summary.on 05-31-2020 Coding Summary. CODING DATE: 020 FINAL [facility] STATUS: Home (Routine DC) PAYOR: Leela GROUPERS: [...] Conception, Retained, Via Natural or Artificial Opening [id number] Control Bleeding in Davie Grijalva MD 05/27/2020 Genitourinary Tract, Via Natural or Artificial Opening 12534V6 Transfusion of Nonautologous Davie Grijalva MD 05/26/2020 Red Blood Cells into Peripheral Vein, Percutaneous Approach 47891L5 Transfusion of Nonautologous Davie Grjialva MD 05/26/2020 Red Blood Cells into Peripheral Vein, Percutaneous Approach 42446D5 Transfusion of Nonautologous Davie Grijalva MD 05/26/2020 Red Blood Cells into Peripheral Vein, Percutaneous Approach 31878S6 Transfusion of Nonautologous Davie Grijalva MD 05/26/2020 Red Blood Cells into Peripheral Vein, Percutaneous Approach 11597V8 Transfusion of Nonautologous Davie Grijalva MD 05/26/2020 Frozen Plasma into Peripheral Vein, Percutaneous Approach 47678P9 Transfusion of Nonautologous Davie Grijalva MD 05/26/2020 Frozen Plasma into Peripheral Vein, Percutaneous Approach 34279F8 Transfusion of Nonautologous aDvie Grijalva MD 05/27/2020 Red Blood Cells into Peripheral Vein, Percutaneous Approach NOTE: The code number assigned matches the documented diagnosis and / or procedure in the patient's chart. However, the narrative phrase printed from the coding software may appear abbreviated, or result in slightly different terminology. Coded By: Rae Milton Date Saved: 05/31/2020 11:44 am Normal [facility] IntraOperative Documentson 0 05-31-2020 IntraOperative Documents [id number]:127 Normal [facility] Consent for Procedure/Surger yon 05-28-2020 Consent for Procedure/Surgery [id number]:127 Normal [facility] Discharge Instructionson Discharge Instructions [id number]:127 Normal [facility] Discharge Instructions Given Worseningon 05-28-2020 Discharge Instructions Given Worsening The following Patient Education Materials have been given to the patient: EducationMaterial Normal [facility] History and Physicalon 05-28 History and [...] Davie Grijalva MD, FACOG lkr Dictated: 05/26/2020 #[id number] Typed 05/27/2020 #[id number] cc: Davie Grijalva MD, MICHAEL [facility] Comment on above: Result Comment: Elec tronically Signed By: Rudi GUSTAFSON, Davie Duong\.br\Date and Time Signed: 05/28/20 08:12 EDT Inpatient Clinical Summaryon 05-28-2020 Inpatient Clinical Summary [place] [id number] Clinical Summary Person Information Name: SUKHDEV SCHWARTZ Stacey/[facility] Age: 34 Years : 1985 Sex: Female PCP: SONIA GUSTAFSON, LOLI Vela Marital Status: Phone: [phone] Race: White Ethnicity: Non- or Language: Mongolian Visit Id: Visit Reason: Nausea; Dizziness; Vaginal bleeding; VAG BLEEDING Speciality: Acuity: Other Enc Type: Inpatient Med Service: Obstetrics Arrival: 05/26/2020 11:09:13 Discharge: 05/28/2020 08:40:00 Dispo Type: Home (Routine DC) Address: [address] [id number] Provider Notes: Diagnosis: 1:Miscarriage; 2:Retained products of [...] range between ( 80.0 and 100.0 ) [place] Auto: 6.7 % -- Normal range between ( 4.0 and 14.0 ) MPV: 7.4 fL -- Normal range between ( 6.4 and 10.8 ) Neutro Auto: 68.3 % -- Normal range between ( 36.0 and 75.0 ) Platelet: 278.0 E9/L -- Normal range between ( 150.0 and 500.0 ) WBC: 7.0 E9/L -- Normal range between ( 4.0 and 11.0 ) [place] Absolute: 0.5 E9/L -- Normal range between [...] Follow up: With: Address: When: Dr. Grijalva [phone] Within 1 to 2 weeks Comments: Call for any problems. Patient Education Information: Menorrhagia Normal [facility] Inpatient Patient Summaryon 05-28-2020 Inpatient Patient Summary [place] [id number] Patient Discharge Instructions PERSON INFORMATION Name: SUKHDEV [...] Follow up: With: Address: When: Dr. Grijalva [phone] Within 1 to 2 weeks Comments: Call [...] hospitalization. HOME CARE INSTRUCTIONS ? Only take buor-owf-zguekiu or prescription medicines as directed by your [...] Document Reviewed: 03/25/2014 ExitCare? Patient Information ?2015 Movable. This information is not intended to replace advice given to you by your health care provider. Make sure you discuss any questions you have with your health care provider. Medication Leaflets: Thank you for choosing [facility] Normal [facility] IntraOperative Documentson 0 8-11-2020 IntraOperative Documents [id number]:127 Normal [facility] Operative Reporton 0 Operative Report Date of [...] Davie Grijalva MD, FACOG lkr Dictated: 05/27/2020 #[id number] Typed: 05/27/2020 #[id number] cc: Davie Grijalva MD, MICHAEL [facility] Comment on above: Result Comment: Elec tronically [...] q6hr, # 15 tab(s), Refills(s) 0, Pharmacy: [facility] Documented Medications Documented Multivitamins: 1 tab(s), [...] list: All Problems Pancreatitis / SNOMED CT 945543167 / Confirmed Incomplete miscarriage / SNOMED CT 383256279 / Confirmed missed Ovarian dysfunction / SNOMED CT 75767956 / Confirmed Hypothyroidism / SNOMED CT 09260600 / Confirmed Resolved: / SNOMED CT 307851947 Resolved: / SNOMED CT 318584902 Resolved: / SNOMED CT 584708424 Resolved: / SNOMED CT 582667548 Physical Examination Intake and Output Denies significant [...] 0 . Respiratory: Adequate air exchange with lutheran of preoperative function.. Cardiovascular: Cardiovascular function is stable and has returned to preoperative levels.. Neurologic: Pt has returned to preoperative baseline.. Review / Management Condition: Stable. Assessment Anesthetic outcome No anesthetic complications noted. Plan Transfer/ Discharge: Patient can be discharged from PACU when criteria met. Condition good. Normal [facility] Comment on above: Result Comment: Elec [...] q6hr, # 15 tab(s), Refills(s) 0, Pharmacy: [facility] Documented Medications Documented Multivitamins: 1 tab(s), [...] list: All Problems Pancreatitis / SNOMED CT 868220074 / Confirmed Incomplete miscarriage / SNOMED CT 601566882 / Confirmed missed Ovarian dysfunction / SNOMED CT 66416316 / Confirmed Hypothyroidism / SNOMED CT 12172810 / Confirmed Physical Examination Intake and Output [...] (MAY [birth year]:) Respiratory: Adequate air exchange with lutheran of preoperative function.. Cardiovascular: Cardiovascular function is stable and has returned to preoperative levels.. Neurologic: Pt has returned to preoperative baseline.. Review / Management Condition: Stable. Assessment Anesthetic outcome No anesthetic complications noted. Plan Transfer/ Discharge: Patient can be discharged from PACU when criteria met. Condition good. [facility] Comment on above: Result Comment: Elec tronically [...] Davie Grijalva MD, FACOG gls Dictated: 05/27/2020 #[id number] Typed: 05/27/2020 #[id number] cc: Davie Grijalva MD, FACOG [facility] Comment on above: Result Comment: Elec tronically Signed By: Rudi GUSTAFSON, Davie Duong\.br\Date and Time Signed: 05/28/20 08:11 EDT Consent for Anesthesiaon Consent for Anesthesia [id number]:127 [facility] FSPon 05-27-2020 Fibrin+Fibrinogen fragments (S) [Mass/Vol] <10 Normal <10 [facility] Comment on above: Performed By: #### 1 3065082, 9747082, 5582308, 0122106, 4848298, 7586943, 42111445, 0890660 #### [facility] [address] [place] [address] Fibrin+Fibrinogen fragments (S) [Mass/Vol] <10 Normal <10 [facility] Comment on above: Performed By: #### 1 1036744, 6225220, 1063602, 2283614, 5703996, 0915006, 87140800, 0659135 #### [facility] [address] [place] [address]49 Fibrin+Fibrinogen fragments (S) [Mass/Vol] <10 Normal <10 [facility] Comment on above: Performed By: #### 1 2494051, 5973198, 3087422, 0323602, 5557127, 9410341, 06001182, 8523258 #### [facility] [address] [place] [address] 95362 Fibrinogenon 05-27-2020 Fibrinogen Coag (PPP) [Mass/Vol] 181 mg/dL Low 200-393 [facility] Comment on above: Performed By: #### 1 2317806, 5127848, 1286711, 8250548, 4825279, 0889208, 00873270, 1094614 #### [facility] [address] [place] [address] 08483 Fibrinogen Coag (PPP) [Mass/Vol] 178 mg/dL Low 200-393 [facility] Comment on above: Performed By: #### 1 1726162, 5208767, 8827744, 6115602, 6036321, 0734962, 29117904, 0974371 #### [facility] [address] [place] [address] 30885 Fibrinogen Coag (PPP) [Mass/Vol] 174 mg/dL Low 200-393 [facility] Comment on above: Performed By: #### 1 3971014, 5227746, 3747955, 5874174, 2642500, 2583902, 62150574, 8879093 #### [facility] [address] [place] [address] 10746 Hct & Hgbon 05-27-2020 Hematocrit (Bld) [Volume fraction] 23.9 % Low 34.0-46.0 [facility] Comment on above: Performed By: #### 1 0338259, 6067237, 8901981, 9813247, 5544805, 1865862, 68294745, 9948226 #### [facility] [address] [place] [address] 81245 Hemoglobin (Bld) [Mass/Vol] 8.3 g/dL Low 12.0-16.0 [facility] Comment on above: Performed By: #### 1 4594077, 9346632, 9332488, 9800983, 6385834, 3668468, 83433891, 1938404 #### [facility] [address] [place] [address] 80875 Hematocrit (Bld) [Volume fraction] 22.4 % Low 34.0-46.0 [facility] Comment on above: Performed By: #### 1 9226239, 1476077, 9549796, 2884893, 9304275, 8421172, 36081944, 4605988 #### [facility] [address] [place] [address] 10456 Hemoglobin (Bld) [Mass/Vol] 7.8 g/dL Low 12.0-16.0 [facility] Comment on above: Performed By: #### 1 1579330, 0541237, 8468272, 9347178, 6813355, 7431503, 63752212, 2172967 #### [facility] [address] [place] [address] 72943 Hematocrit (Bld) [Volume fraction] 26.2 % Low 34.0-46.0 [facility] Comment on above: Performed By: #### 1 9980932, 4141754, 1271417, 1907667, 0354567, 2244639, 14099652, 0356863 #### [facility] [address] [place] [address] 16254 Hemoglobin (Bld) [Mass/Vol] 8.9 g/dL Low 12.0-16.0 [facility] Comment on above: Performed By: #### 1 4265944, 6347550, 9230075, 1062986, 4250164, 1676514, 72962008, 8263452 #### [facility] [address] [place] [address] IntraOperative Documentson 0 05-27-2020 IntraOperative Documents [id number]:127 Normal [facility] Main OR Intraoperative Recor don 05-27-2020 Main OR Intraoperative Record IntraOp Document Type FT Summary Primary Physician: Davie Grijalva MD Finalized Date/Time: 05/27/20 13:44:47 Pt. Name: SUKHDEV SCHWARTZ Antoni Mo/Sex: 1985 Female Med Rec #: [id number] Physician: Davie Grijalva MD Financial #: [id number] Pt. Type: I Room/Bed: [place] [address] Admit/Disch: 05/26/20 11:09:13 - Institution: Case Times [...] CURETTAGE CURETTAGE CURETTAGE Comments Last Modified By: Annelise GOODRICH, Rena 05/26/20 Annelise GOODRICH, Rena 05/26/20 Annelise GOODRICH, Rena 05/26/20 17:20:27 17:20:27 17:20:27 Entry 4 Entry 5 Entry 6 Case Attendee Annelise GOODRICH, Shoshana Pérez RN, Lauren Role Performed Executive Relations Specialist - Primary Staff - Other Staff - Other Time In 05/26/20 16:01:00 05/26/20 16:45:00 05/26/20 16:01:00 Time Out 05/26/20 17:13:00 05/26/20 17:13:00 05/26/20 17:13:00 Procedure DILATATION and SUCTION DILATATION and SUCTION DILATATION and SUCTION CURETTAGE CURETTAGE CURETTAGE Comments 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 Yes Yes Last [...] Patient Status Stable Skin. Condition Bruised, Intact, Meigs, Description same as preop Warm, and Dry [...] General Comments: Cueto was present on arrival, OJLEEN York did not insert cueto.-JOLEEN York Cultures [...] BLANKET MISTRAL AIR Quantity 1 Aid TORSO [[id number]][F] Fluid/[place] [facility] Mistral warming system Setting 43c, high Body Site Upper anterior torso Last Modified By: Rena Castelan RN 05/26/20 20:15:53 Case Comments Finalized By: Juanita Stein CST Document Signatures Signed By: Rena Castelan RN 05/26/20 20:16 Juanita Stein CST 05/27/20 13:44 Normal [facility] PACU Recordon 05-27-2020 PACU Record [id number]:127 Normal [facility] PT & PTTon 05-27-2020 aPTT Coag (PPP) [Time] 24.6 second(s) Low 25.1-36.5 [facility] Comment on above: Order Comment: Order Added by Discern Expert. Result Comment: Hepa rin therapeutic range (represented by Anti-Factor Xa activity of 0.2 - 0.4 U/mL) corresponds to PTT of 56.6 - 109.0 sec. Performed By: #### 1 2231066, 2359066, 0979941, 6095594, 2259430, 6877840, 22799422, 2588327 #### [facility] [address] [place] [address] INR Coag (PPP) [Relative time] 1.1 {INR} [facility] Comment on above: Order Comment: Order Added by Discern Expert. Result Comment: INR results are specifically intended to assess patients stabilized on long-term Anticoagulation therapy suggested INR?s ?Less Intensive Anticoagulation? 2.0 ? 3.0 Conventional Range 3.0 ? 4.5 Performed By: #### 1 5808231, 9549559, 9229223, 8135153, 4303897, 8861147, 34577141, 6533537 #### [facility] [address] [place] [address] PT Coag (PPP) [Time] 12.6 second(s) Normal 10.2-12.9 [facility] Comment on above: Order Comment: Order Added by Discern Expert. Performed By: #### 1 5592987, 8791324, 0998357, 1432625, 7179445, 9434235, 63465566, 0796290 #### [facility] [address] [place] [address] aPTT Coag (PPP) [Time] 25.1 second(s) Normal 25.1-36.5 [facility] Comment on above: Result Comment: Hepa rin therapeutic range (represented by Anti-Factor Xa activity of 0.2 - 0.4 U/mL) corresponds to PTT of 56.6 - 109.0 sec. Performed By: #### 1 8271252, 0963706, 0985837, 9576223, 1315371, 2218366, 29477972, 2109192 #### [facility] [address] [place] [address] INR Coag (PPP) [Relative time] 1.2 {INR} [facility] Comment on above: Result Comment: INR results are specifically intended to assess patients stabilized on long-term Anticoagulation therapy suggested INR?s ?Less Intensive Anticoagulation? 2.0 ? 3.0 Conventional Range 3.0 ? 4.5 Performed By: #### 1 5762466, 5312875, 4600238, 5223620, 6204727, 8231989, 19213806, 4836283 #### [facility] [address] [place] [address] PT Coag (PPP) [Time] 13.5 second(s) High 10.2-12.9 [facility] Comment on above: Performed By: #### 1 0255192, 9473767, 1551017, 4226088, 1478637, 7332638, 57695753, 7153229 #### [facility] [address] [place] [address] aPTT Coag (PPP) [Time] 24.5 second(s) Low 25.1-36.5 [facility] Comment on above: Result Comment: Hepa rin therapeutic range (represented by Anti-Factor Xa activity of 0.2 - 0.4 U/mL) corresponds to PTT of 56.6 - 109.0 sec. Performed By: #### 1 7969224, 1191313, 5059772, 3192852, 3144018, 2716561, 42687468, 3218102 #### [facility] [address] [place] [address] INR Coag (PPP) [Relative time] 1.2 {INR} [facility] Comment on above: Result Comment: INR results are specifically intended to assess patients stabilized on long-term Anticoagulation therapy suggested INR?s ?Less Intensive Anticoagulation? 2.0 ? 3.0 Conventional Range 3.0 ? 4.5 Performed By: #### 1 3459852, 8512559, 3163606, 2557749, 3667973, 9648673, 90167172, 3019617 #### [facility] [address] [place] [address] PT Coag (PPP) [Time] 14.0 second(s) High 10.2-12.9 [facility] Comment on above: Performed By: #### 1 6262976, 8498573, 1061988, 8531121, 6654993, 4311967, 75265903, 6230625 #### [facility] [address] [place] [address] ABO/Rhon 05-26-2020 ABO/Rh Positive [facility] Comment on above: Performed By: #### 1 5980942, 8951895, 1672281, 1421702, 0489372, 0161485, 90786528, 8326336 #### [facility] [address] [place] [address] 61329 ABO/Rh History Checkon 05-26 ABO/Rh History Check Verified Hx Blood Type Normal [facility] Comment on above: Performed By: #### 1 0387255, 1649296, 4047718, 2865049, 1009994, 8220652, 24166849, 6210464 #### [facility] [address] [place] [address] 39422 ABSCon 05-26-2020 ABSC Gel Interp Negative Normal [facility] Comment on above: Performed By: #### 1 9132149, 0226080, 6591602, 8567400, 1440656, 2140043, 10703168, 5798276 #### [facility] [address] [place] [address] 65770 Auto Diffon 05-26-2020 Basophils/100 WBC (Bld) 0.8 % Normal 0.0-2.0 [facility] Comment on above: Order Comment: Order Added by Discern Expert. Performed By: #### 1 9528399, 8193165, 0457386, 9236994, 5102267, 7343833, 56614207, 1993007 #### [facility] [address] [place] [address] 96089 Basophils/Leukocyte s Auto (Bld) [Pure # fraction] 0.1 E9/L Normal 0.0-0.2 [facility] Comment on above: Order Comment: Order Added by Discern Expert. Performed By: #### 1 6547589, 2388133, 1021681, 5371459, 6558772, 0186271, 20233168, 7035077 #### [facility] [address] [place] [address] 36084 Eosinophils/100 WBC (Bld) 2.0 % Normal 0.0-8.0 [facility] Comment on above: Order Comment: Order Added by Discern Expert. Performed By: #### 1 2466589, 0518867, 1321606, 8526031, 3336311, 8460927, 44155410, 9064131 #### [facility] [address] [place] [address] Eosinophils/Leukocy dariel Auto (Bld) [Pure # fraction] 0.1 E9/L Normal 0.0-0.5 [facility] Comment on above: Order Comment: Order Added by Discern Expert. Performed By: #### 1 4578536, 0539191, 8555386, 7584838, 7153313, 2223883, 07863388, 3801144 #### [facility] [address] [place] [address] Lymphocytes/100 WBC (Bld) 22.2 % Normal 14.0-50.0 [facility] Comment on above: Order Comment: Order Added by Discern Expert. Performed By: #### 1 4390240, 9877603, 4387122, 8650893, 6459694, 5431629, 38212169, 2414010 #### [facility] [address] [place] [address] 88322 Lymphocytes/Leukocy dariel Auto (Bld) [Pure # fraction] 1.6 E9/L Normal 1.0-4.0 [facility] Comment on above: Order Comment: Order Added by Discern Expert. Performed By: #### 1 0894356, 9969610, 6123920, 7529287, 7743695, 7345074, 83510683, 4627226 #### [facility] [address] [place] [address] 27444 Monocytes/100 WBC (Bld) 6.7 % Normal 4.0-14.0 [facility] Comment on above: Order Comment: Order Added by Discern Expert. Performed By: #### 1 7850253, 8013210, 3359686, 9680444, 4422614, 7478296, 23512390, 6897117 #### [facility] [address] [place] [address] Monocytes/Leukocyte s Auto (Bld) [Pure # fraction] 0.5 E9/L Normal 0.2-1.0 [facility] Comment on above: Order Comment: Order Added by Discern Expert. Performed By: #### 1 2705389, 9188897, 1124443, 0204724, 4370829, 8401670, 41145430, 1717739 #### [facility] [address] [place] [address] Neutrophils/100 WBC (Bld) 68.3 % Normal 36.0-75.0 [facility] Comment on above: Order Comment: Order Added by Discern Expert. Performed By: #### 1 5343579, 3730756, 8373992, 3723324, 9787129, 5862702, 25321891, 8615367 #### [facility] [address] [place] [address] Neutrophils/Leukocy dariel Auto (Bld) [Pure # fraction] 4.8 E9/L Normal 2.0-7.5 [facility] Comment on above: Order Comment: Order Added by Discern Expert. Performed By: #### 1 0254703, 5021387, 6319247, 8039135, 3321327, 6170266, 83383338, 0173522 #### [facility] [address] [place] [address] B hCG Qualon 05-26-2020 Beta hCG Ql Positive Normal [facility] Comment on above: Result Comment: mray ected Performed By: #### 1 9502791, 9707455, 0776622, 6160601, 0101135, 2454738, 34963492, 5274439 #### [facility] [address] [place] [address] BMPon 05-26-2020 Creatinine [Mass/Vol] 0.7 mg/dL Normal 0.5-1.3 [facility] Comment on above: Performed By: #### 1 5259010, 9939299, 5823397, 2038827, 1106554, 1063975, 03469348, 1767329 #### [facility] [address] [place] [address] Urea nitrogen [Mass/Vol] 15 mg/dL Normal 5-21 [facility] Comment on above: Performed By: #### 1 2183056, 5973917, 9632108, 1271888, 3649047, 2721295, 17504424, 8749744 #### [facility] [address] [place] [address] Urea nitrogen/Creatinine [Mass ratio] 21 No Units High 10-20 [facility] Comment on above: Performed By: #### 1 5666509, 4333171, 4853352, 6693879, 1828463, 2398209, 21665810, 9848587 #### [facility] [address] [place] [address] Anion gap [Moles/Vol] 12 mmol/L Normal 6-16 [facility] Comment on above: Performed By: #### 1 1818162, 9975166, 2577799, 0429328, 5351792, 0599110, 50493540, 0873569 #### [facility] [address] [place] [address] Calcium [Mass/Vol] 9.4 mg/dL Normal 8.9-11.1 [facility] Comment on above: Performed By: #### 1 9597350, 1715129, 0455134, 0095288, 7053355, 1456389, 46527617, 9087357 #### [facility] [address] [place] [address] Chloride [Moles/Vol] 105 mmol/L Normal 101-111 [facility] Comment on above: Performed By: #### 1 4721466, 9886938, 4136684, 6405447, 4394751, 5106273, 13596419, 1321321 #### [facility] [address] [place] [address] CO2 [Moles/Vol] 26 mmol/L Normal 21-31 [facility] Comment on above: Performed By: #### 1 0775140, 0122621, 9685694, 0370212, 8668409, 6917795, 87955085, 4353712 #### [facility] [address] [place] [address] Glucose [Mass/Vol] 101 mg/dL Normal 55-199 [facility] Comment on above: Result Comment: If t his glucose result represents a fasting glucose, interpretation should refer to the following reference range: 55-99 mg/dL Performed By: #### 1 7210366, 4283583, 2372634, 9519559, 3386672, 4789734, 61911493, 2105867 #### [facility] [address] [place] [address] Potassium [Moles/Vol] 3.9 mmol/L Normal 3.5-5.3 [facility] Comment on above: Performed By: #### 1 2861306, 7195084, 3915562, 0923734, 3726653, 9356923, 98526970, 3043600 #### [facility] [address] [place] [address] Sodium [Moles/Vol] 139 mmol/L Normal 135-145 [facility] Comment on above: Performed By: #### 1 9295631, 8015624, 1570080, 3000353, 8432911, 6609877, 70996963, 2721166 #### [facility] [address] [place] [address] [facility] HCG.beta subunit Qn 18 m[IU]/mL High 1-3 [facility] Comment on above: Result Comment: GEST ATIONAL AGE HCG RANGE (mIU/mL) NON- <1-3 0.2-1 WEEKS 5-50 1-2 WEEKS 50-500 2-3 WEEKS 100-5,000 3-4 WEEKS 500-10,000 4-5 WEEKS 1,000-50,000 5-6 WEEKS 10,000-100,000 6-8 WEEKS 15,000-200,000 8-12 WEEKS 10,000-100,000 Performed By: #### 1 5855657, 2321886, 9279678, 6624748, 8380178, 3449364, 87680382, 3579119 #### [facility] [address] [place] [address] Blood Bank ID#on 05-26-2020 BBID# [id number] [facility] Comment on above: Performed By: #### 1 1831117, 9495253, 4361375, 9566714, 0561281, 6528898, 49173768, 9610759 #### [facility] [address] [place] [address] CBC w/ Auto Diffon 0 Erythrocyte distribution width (RBC) [Ratio] 12.4 % Normal 10.9-14.2 [facility] Comment on above: Performed By: #### 1 8894054, 3901181, 0563646, 0572908, 6267993, 2837853, 44822042, 4460109 #### [facility] [address] [place] [address] Hematocrit (Bld) [Volume fraction] 36.6 % Normal 34.0-46.0 [facility] Comment on above: Performed By: #### 1 6190786, 9400559, 5739952, 7310050, 7994363, 3202209, 21590454, 8748509 #### [facility] [address] [place] [address] Hemoglobin (Bld) [Mass/Vol] 12.2 g/dL Normal 12.0-16.0 [facility] Comment on above: Performed By: #### 1 3438532, 7121501, 9550313, 7241539, 0899540, 5676692, 69771551, 4892792 #### [facility] [address] [place] [address] MCH (RBC) [Entitic mass] 29.8 pg Normal 27.0-34.0 [facility] Comment on above: Performed By: #### 1 7464060, 3458618, 2981220, 4472996, 9372220, 4108164, 46369787, 9291183 #### [facility] [address] [place] [address] MCHC (RBC) [Mass/Vol] 33.3 g/dL Normal 31.4-36.0 [facility] Comment on above: Performed By: #### 1 5307169, 7536383, 5214825, 4282171, 7612723, 3081261, 19583234, 5971476 #### [facility] [address] [place] [address] MCV (RBC) [Entitic vol] 89.5 fL Normal 80.0-100.0 [facility] Comment on above: Performed By: #### 1 3489937, 0401603, 6083800, 4701696, 1680955, 1804891, 56515924, 9523432 #### [facility] [address] [place] [address] Platelet mean volume (Bld) [Entitic vol] 7.4 fL Normal 6.4-10.8 [facility] Comment on above: Performed By: #### 1 5309910, 8690003, 5133892, 7441477, 9228835, 0323404, 31069404, 4399214 #### [facility] [address] [place], [place] [address] Platelets (Bld) [#/Vol] 278.0 E9/L Normal 150.0-500.0 [facility] Comment on above: Performed By: #### 1 8610496, 5332442, 5828474, 0334779, 9718575, 2661100, 15373086, 1128234 #### [facility] [address] [place], [place] [address] RBC (Bld) [#/Vol] 4.1 E12/L Low 4.3-5.9 [facility] Comment on above: Performed By: #### 1 0718275, 7260658, 2347652, 6694116, 2353554, 5460472, 47968857, 3072670 #### [facility] [address] [place] [address] WBC corrected for nucl RBC Auto (Bld) [#/Vol] 7.0 E9/L Normal 4.0-11.0 [facility] Comment on above: Performed By: #### 1 5447031, 0008405, 5670768, 6477595, 1329532, 3039027, 02450989, 1513038 #### [facility] [address] [place], [place] [address] Consent for Blood Transfusio non 05-26-2020 Consent for Blood Transfusion [id number]#1.00CD:127 Normal [facility] Consent for Treatmenton Consent for Treatment [id number]#1.00CD:127 Normal [facility] ED Clinical Summaryon 2019 ED Clinical Summary (Inserted Image. Sachi ble to display) [address] [address] ED Clinical Summary Person Information Name: SUKHDEV SCHWARTZ Stacey/[facility] Age: 34 Years : 1985 Sex: Female Language: Mongolian PCP: LOLI MATIAS MD Marital Status: Phone: [phone] MRN: Visit Id: Visit Reason: Nausea; Dizziness; [...] 05/26/2020 12:32:48 ADDRESS: [address] [facility] [id number] [facility] DOC NOTES: MEDICAL INFORMATION: Prescriptions Given: Medications [...] Follow up: With: Address: When: Davie Grijalva [facility] [address], [facility] [address], [place] [id number] [facility] (1) 05/27/2020 8:45 AM Comments: Return to ED if symptoms worsen. Drink lots of fluids. Return if you have worsening bleeding, pass out, chest pain, shortnes of breath or any other problems. DIAGNOSIS: 1:Menorrhagia Normal [facility] ED Note-Physicianon 05-26-20 ED Note-Physician Basic [...] % (05/26/20:25:00) Lymph Auto: 22.2 % (05/26/20::) Marinette Auto: 6.7 % (05/26/20:25:00) Eos Auto: 2 % (05/26/20::) Basophil Auto: 0.8 % (05/26/20::) Neutro Absolute: 4.8 E9/L (05/26/20:25:00) Lymph Absolute: 1.6 E9/L (05/26/20:25:) Marinette Absolute: 0.5 E9/L (05/26/20::) Eos Absolute: 0.1 [...] Ultrasound Performed Signed By: Faraz Carter DO [facility] Comment on above: Result Comment: Elec tronically [...] hospitalization. HOME CARE INSTRUCTIONS ? Only take ejkz-uez-hfdpywv or prescription medicines as directed by your [...] Document Reviewed: 03/25/2014 ExitCare? Patient Information ?2015 Movable. This information is not intended to replace advice given to you by your health care provider. Make sure you discuss any questions you have with your health care provider. Normal [facility] ED Patient Summaryon 020 ED Patient Summary (Inserted Image. Sachi ble to display) [place] [id number] Patient Discharge Instructions Person Information Name: SUKHDEV SCHWARTZ Age: 34 Years Arrival Date: 05/26/2020 11:09:13 Discharge Diagnosis: 1:Menorrhagia Primary Care Physician: LOLI MATIAS MD Provider Information Primary Provider: Carline Cain DO Advanced Administrative Secretary:None The exam and treatment you received in the Emergency Department were for an urgent problem and are not intended as complete care. It is important that you follow up with a doctor, nurse practitioner, or physician?s speech assistant for ongoing care. If your symptoms become worse or you do not improve as expected and you are unable to reach your usual health care provider, you should return to the Emergency Department. We are available 24 hours a day. SUKHDEV SCHWARTZ has been given the following list of patient education materials, prescriptions and follow-up instructions: Follow-up Instructions: With: Address: When: Davie ISSA, [facility] [address] [place] [id number] [facility] (1) 05/27/2020 8:45 AM Comments: Return to [...] opioids can be used to help relieve kltrowmx-ng-kpuofg pain and are often prescribed following a [...] be struggling with addiction, tell your health veterinarian laboratory animal care and ask for guidance or call [facility]?S National Helpline at 8-921-251-HMMN. v Source: [place] Department of Health and Human Services/Center for Disease Control & Prevention [facility] Medications Given: Medication Dose Route [...] Comment: Pharmacy Information: Thank you for choosing [facility] Patient Education Materials: Menorrhagia Menorrhagia is the [...] hospitalization. HOME CARE INSTRUCTIONS ? Only take fvmp-wnu-twiggxs or prescription medicines as directed by your [...] Document Reviewed: 03/25/2014 ExitCare? Patient Information ?2015 Movable. This information is not intended to replace advice given to you by your health care provider. Make sure you discuss any questions you have with your health care provider. JAMES Bain BRITTANY F , have received the following patient education materials/instructions and have verbalized understanding: Patient Education Materials: Menorrhagia Follow-up Instructions: With: Address: When: Davie Grijalva [address] [place] [address], [place] [address], [place] [address] [facility] (1) 05/27/2020 8:45 AM Comments: Return to ED if symptoms worsen. Drink lots of fluids. Return if you have worsening bleeding, pass out, chest pain, shortnes of breath or any other problems. Patient Signature __ Date Clinician/Nurse Signature Date 05/26/2020 12:32:58 Normal [facility] FFPon 05-26-2020 # of Units 2 [facility] Comment on above: Result Comment: 2019 17:56 [id number] Blood product ready and called to Jaki/OB at 05/26/2020 17:56:49 EDT by AL. Performed By: #### 1 5352441, 5135139, 1625420, 4348219, 9176784, 3400057, 64392238, 9569081 #### [facility] [address] [place] [address] Date Required [id number] [facility] Comment on above: Performed By: #### 1 7460423, 9157715, 8430949, 5919650, 2353199, 8818550, 59811777, 9837123 #### [facility] [address] [place] [address] Order to Transfuse YES [facility] Comment on above: Performed By: #### 1 7816611, 6617021, 9142316, 2780574, 2958106, 3841406, 24815674, 5572140 #### [facility] [address] [place] [address] Hematocriton 05-26-2020 Hematocrit (Bld) [Volume fraction] 27.0 % Low 34.0-46.0 [facility] Comment on above: Performed By: #### 1 5165174, 3988434, 9748522, 9163471, 6892019, 6912466, 25415761, 7350335 #### [facility] [address] [place] [address] Hemoglobinon 05-26-2020 Hemoglobin (Bld) [Mass/Vol] 9.0 g/dL Low 12.0-16.0 [facility] Comment on above: Performed By: #### 1 3252917, 1688348, 6684327, 1318595, 8299922, 5411392, 95268738, 8193331 #### [facility] [address] [place] [address] Hep Func Panelon 05-26-2020 Albumin [Mass/Vol] 1.4 g/dL Normal 1.1-2.2 [facility] Comment on above: Performed By: #### 1 3048865, 0569805, 4658881, 5314246, 4130354, 8456441, 87547458, 9604723 #### [facility] [address] [place] [address] Albumin [Mass/Vol] 4.1 g/dL Normal 3.3-5.0 [facility] Comment on above: Performed By: #### 1 6384460, 8204817, 8584515, 9725376, 0077003, 0225571, 75865342, 9917503 #### [facility] [address] [place] [address] ALP [Catalytic activity/Vol] 47 Int._Unit/L Normal 21-98 [facility] Comment on above: Performed By: #### 1 2732931, 3367012, 6601114, 9749219, 3933759, 8010269, 25766945, 0027616 #### [facility] [address] [place] [address] ALT No additional P-5'-P [Catalytic activity/Vol] 10 Int._Unit/L Normal 6-46 [facility] Comment on above: Performed By: #### 1 8860745, 5911546, 4566004, 4238933, 2727467, 8018421, 94793670, 1556012 #### [facility] [address] [place] [address] AST [Catalytic activity/Vol] 12 Int._Unit/L Normal 5-43 [facility] Comment on above: Performed By: #### 1 9894957, 6832102, 6333106, 1626602, 9110801, 6164112, 40018915, 7882119 #### [facility] [address] [place] [address] Bilirubin [Mass/Vol] 0.8 mg/dL Normal 0.0-1.1 [facility] Comment on above: Performed By: #### 1 6022357, 0058081, 1030264, 2499683, 1182856, 5743637, 98835236, 2608078 #### [facility] [address] [place] [address] Bilirubin.direct [Mass/Vol] 0.7 mg/dL Normal 0.1-0.9 [facility] Comment on above: Performed By: #### 1 4524758, 2569284, 6587066, 5072353, 9166405, 3803324, 34505548, 0837984 #### [facility] [address] [place] [address] Bilirubin.direct [Mass/Vol] 0.1 mg/dL Normal 0.1-0.4 [facility] Comment on above: Performed By: #### 1 4681794, 9932642, 0120123, 4010814, 4971684, 0105782, 82770292, 5944901 #### [facility] [address] [place] [address] Globulin (S) [Mass/Vol] 2.9 g/dL Normal 1.4-4.0 [facility] Comment on above: Performed By: #### 1 6858697, 6783834, 4514479, 2208568, 1957359, 3149259, 57898618, 9077999 #### [facility] [address] [place] [address] Protein [Mass/Vol] 7.0 g/dL Normal 6.0-7.8 [facility] Comment on above: Performed By: #### 1 2451626, 3207641, 5673399, 8976456, 2364972, 3588114, 83976033, 7558264 #### [facility] [address] [place] [address] Main OR PACU I Recordon Main OR PACU I Record PACU Phase I Document Type FT Summary Primary Physician: Davie Grijalva MD Finalized Date/Time: 05/26/20 20:48:43 Pt. Name: SUKHDEV SCHWARTZ/Sex: 1985 Female Med Rec #: [id number] Physician: Davie Grijalva MD Financial #: [id number] Pt. Type: O Room/Bed: N410/01 Admit/Disch: 05/26/20 [...] By: Lauren Reed RN 05/26/20 20:48 Normal [facility] Main OR Preoperative Recordo n 05-26-2020 Main OR Preoperative Record Holding Area Document Type FT Summary Primary Physician: Davie Grijalva MD Finalized Date/Time: 05/26/20 20:04:05 Pt. Name: SUKHDEV SCHWARTZ /Sex: 1985 Female Med Rec #: [id number] Physician: Davie Grijalva MD Financial #: [id number] Pt. Type: O Room/Bed: [facility]/ Admit/Disch: 05/26/20 11:09:13 - Institution: Case Times [...] By: Rena Castelan RN 05/26/20 20:04 Normal [facility] Monitor Recordon 05-26-2020 Monitor Record [id number]#[id number]:127 Normal [facility] Monitor Record [id number]#[id number]:127 Normal [facility] Monitor Record [id number]#[id number]:127 Normal [facility] Monitor Record [id number]#1.00CD:127 Normal [facility] Monitor Record [id number]#[id number]:127 Normal [facility] Monitor Record [id number]#1.00CD:127 Normal [facility] PT & PTTon 05-26-2020 aPTT Coag (PPP) [Time] 30.1 second(s) Normal 25.1-36.5 [facility] Comment on above: Result Comment: Hepa rin therapeutic range (represented by Anti-Factor Xa activity of 0.2 - 0.4 U/mL) corresponds to PTT of 56.6 - 109.0 sec. Performed By: #### 1 3435149, 5890145, 3897005, 4883993, 4584834, 3965087, 17131936, 7356932 #### [facility] [address] [place] [address] INR Coag (PPP) [Relative time] 1.1 {INR} [facility] Comment on above: Result Comment: INR results are specifically intended to assess patients stabilized on long-term Anticoagulation therapy suggested INR?s ?Less Intensive Anticoagulation? 2.0 ? 3.0 Conventional Range 3.0 ? 4.5 Performed By: #### 1 4226542, 1983346, 2025161, 6739781, 9122591, 0809702, 13240169, 9789060 #### [facility] [address] [place] [address] PT Coag (PPP) [Time] 12.5 second(s) Normal 10.2-12.9 [facility] Comment on above: Performed By: #### 1 3735213, 6009742, 0676279, 1633031, 4554154, 3688225, 40237934, 3960542 #### [facility] [address] [place] [address] Progesteroneon 05-26-2020 Progesterone [Mass/Vol] 0.90 ng/mL [facility] Comment on above: Result Comment: REFE RENCE RANGE Males 0.14-2.06 ng/mL Non- Females Follicular 0.10-0.60 ng/mL Luteal 3.00-17.5 ng/mL Midluteal 3.30-18.6 ng/mL Post-Menopausal 0.10-0.40 ng/mL First Trimester 8.30-66.5 ng/mL Second Trimester 18.9-66.1 ng/mL Third Trimester 35.8-312.4 ng/mL Performed By: #### 1 0551913, 4043814, 1552540, 8520089, 2890384, 6302563, 98115074, 8111768 #### [facility] [address] [place] [address] Progress Note-Nurseon 2019 Progress Note-Nurse Blood obtained per Rhoda Grijalva order and patient taken to surgery. Blood given to Lauren in surgery. Normal [facility] Progress Note-Nurse Dr. Grijalva in at [facility] with pelvic tray and patient and patient begin to bleed heavily and pt heart rate decreased to 50's and patient BP registered in the 60's. pt pale and clammy. Pt in Trendelenburg and fluids open wide. Patient blood pressure up to 100's and HR in the 70's and Dr. Grijalva at [facility] Normal [facility] Progress Note-Nurse Ultrasound at [facility] de to perform beside US Normal [facility] Progress Note-Nurse Patient coloring imp roved at this time and patient VS improved. Dr. Cain aware and awaiting US Normal [facility] Progress Note-Nurse This nurse and Elsie [...] started per Altagracia Godinez. Dr. Cain at [facility]. Patient verbalized she is starting to feel better at this time Normal [facility] Progress Note-Physicianon Progress Note-Physician Patient: SUKHDEV [...] q6hr, # 15 tab(s), Refills(s) 0, Pharmacy: [facility] Documented Medications Documented Multivitamins: 1 tab(s), [...] list: All Problems Pancreatitis / SNOMED CT 708463017 / Confirmed Incomplete miscarriage / SNOMED CT 672966713 / Confirmed missed Ovarian dysfunction / SNOMED CT 41474999 / Confirmed Hypothyroidism / SNOMED CT 40699163 / Confirmed, Active Problems (4) Hypothyroidism Incomplete miscarriage Ovarian dysfunction Pancreatitis Histories Past Medical History: No active or resolved past medical history items have been selected or recorded. Family History: Diabetes mellitus type 2 Mother Thyroid cancer Mother Sister Procedure history: Dilation and curettage ([id number]) on 10/20/2019 at 33 Years. Comments: 10/20/2019 19:10 Kat Rosenbaum RN DILATION & SUCTION CURETTAGE Cholecystectomy ([id number]) on 07/19/2019 at 33 Years. DIAGNOSTIC LAPAROSCOPY [...] 26) Cr 0.7 (MAY 26) . Plan [employer] [employer]hesi[employer] (ASA) physical status classification: Class III, E. Anesthetic Preoperative Plan Anesthesia: General. . Anesthetic plan, risks, benefits, and alternatives discussed with the patient and/or family. Pt. and/or family present and agree to proceed as planned.. Discussed the importance of abstaining from tobacco products, and offered counseling if desired. Normal [facility] Comment on above: Result Comment: Elec tronically Signed By: Jerel Martin JR, DO\.yvonne\Date and Time Signed: 05/26/20 17:[address] [facility] 05-26-2020 # of Units 4 [facility] Comment on above: Result Comment: 2019 18:39 [id number] Blood product ready and called to Jaki/OB at 05/26/2020 18:39:16 EDT by AL. Performed By: #### 1 3920905, 8317363, 9822261, 3231336, 0657609, 1305364, 69792788, 4924583 #### [facility] [address] [place] [address] Date Required 05-26-2020 [facility] Comment on above: Performed By: #### 1 9797859, 3913431, 6976257, 9055058, 0113044, 1503231, 79012404, 9967145 #### [facility] [address] [place] [address] Product Type None Required [facility] Comment on above: Performed By: #### 1 9874443, 1065462, 7767301, 7029097, 2648773, 3141859, 04115750, 2979097 #### [facility] [address] [place] [address] # of Units 1 [facility] Comment on above: Result Comment: 2019 16:29 [id number] Blood product ready and called to Lauren at 05/26/2020 16:29:10 EDT by ALElayne Performed By: #### 1 7953531, 7580155, 2977688, 2806676, 0804156, 3438481, 91564209, 2654454 #### [facility] [address] [place] [address] # of Units 2 [facility] Comment on above: Performed By: #### 1 1251667, 2616803, 8622621, 6886708, 9071650, 9694476, 69766362, 9444434 #### [facility] [facility] [address] [place], [place] [id number] Date Required 05/26/2020 [facility] Comment on above: Performed By: #### 1 [id number], 2740063, 8525630, 0699178, 1217413, 5594230, 77493817, 7054116 #### [facility] [address] [place], [place] [address] Date Required [facility] Comment on above: Performed By: #### 1 [id number], 6907321, 1637488, 5963190, 6794720, 7919897, 18413327, 1987419 #### [facility] [address] [place] [address] Product Type None Required [facility] Comment on above: Performed By: #### 1 4518759, 6478889, 4208690, 0991567, 3541366, 1126254, 09366154, 8529582 #### [facility] [address] [place] [address] # of Units 1 [facility] Comment on above: Result Comment: 2019 15:50 [id number] Blood product ready and called to Topher/ER at 05/26/2020 15:49:51 EDT by AL. Performed By: #### 1 8492526, 7476113, 9594568, 9688476, 2530207, 5312766, 03395306, 8802581 #### [facility] [address] [place] [address] Date Required 05/26/2020 [facility] Comment on above: Performed By: #### 1 1752672, 2572925, 7187307, 4140346, 8583295, 0514435, 79666973, 4247344 #### [facility] [address] [place] [address] Product Type None Required [facility] Comment on above: Performed By: #### 1 8492514, 6297928, 0365261, 5772568, 7024193, 3521876, 59818557, 6679090 #### [facility] [address] [place] [address] US 1st Trimesteron 05-26-2020 US 1st Trimester [...] ? SAB 2 Transabdominal Ultrasound Performed Normal [facility] eGFRon 05-26-2020 GFR/1.73 sq M predicted among blacks MDRD (S/P/Bld) [Vol rate/Area] mL/min/{1.73_m2} Normal >=59 [facility] Comment on above: Order Comment: Order added by Discern Expert. Result Comment: eGFR is race adjusted. AA=. Performed By: #### 1 9626157, 6158666, 9502963, 7211752, 7161953, 1390567, 53930125, 3557568 #### [facility] [address] [place] [address] GFR/1.73 sq M predicted among non-blacks MDRD (S/P/Bld) [Vol rate/Area] mL/min/{1.73_m2} Normal >=59 [facility] Comment on above: Order Comment: Order added by Discern Expert. Result Comment: Warning Coordination Meteorologist ivan kidney disease could be indicated at eGFR's of less than 60 mL/min/1.73m2. Kidney failure is indicated at less than 15 mL/min/1.73m2. Performed By: #### 1 8278865, 0569904, 7987581, 9905034, 0120060, 2582343, 55584125, 1197143 #### [facility] [address] [place] [address] Coding Summary.on 01-23-2020 Coding Summary. CODING DATE: 020 FINAL [facility] STATUS: Home (Routine DC) PAYOR: Leela ADMIT [...] Milton Date Saved: 01/23/2020 12:44 pm Normal [facility] Estradiolon 01-23-2020 E2 [Mass/Vol] 1822.0 pg/mL [facility] Comment on above: Result Comment: Adul t Female: Follicular phase 12.5 - 166.0 Ovulation phase 85.8 - 498.0 Luteal phase 43.8 - 211.0 Postmenopausal <6.0 - 54.7 1st trimester 215.0 - >4300.0 Girls (1-10 years) 6.0 - 27.0 Mal ECLIA methodology Performed at: [facility] [id number] PhD Subhash Coronel Performed By: #### 1 7481718, 6002488, 5545130, 2995767, 3951465, 1429312, 61612322, 0245121 #### [facility] [address] [place] [address] BhCG Quanton 01-22-2020 [place] [address] m[IU]/mL High 1-3 [facility] Comment on above: Result Comment: GEST ATIONAL AGE HCG RANGE (mIU/mL) NON- <1-3 0.2-1 WEEKS 5-50 1-2 WEEKS 50-500 2-3 WEEKS 100-5,000 3-4 WEEKS 500-10,000 4-5 WEEKS 1,000-50,000 5-6 WEEKS 10,000-100,000 6-8 WEEKS 15,000-200,000 8-12 WEEKS 10,000-100,000 Performed By: #### 1 0189941, 7352531, 0401071, 3141089, 8102468, 4108513, 67914080, 9530839 #### [facility] [address] [place] [address] Progesteroneon 01-22-2020 Progesterone [Mass/Vol] 21.50 ng/mL [facility] Comment on above: Result Comment: REFE RENCE RANGE Males 0.14-2.06 ng/mL Non- Females Follicular 0.10-0.60 ng/mL Luteal 3.00-17.5 ng/mL Midluteal 3.30-18.6 ng/mL Post-Menopausal 0.10-0.40 ng/mL First Trimester 8.30-66.5 ng/mL Second Trimester 18.9-66.1 ng/mL Third Trimester 35.8-312.4 ng/mL Performed By: #### 1 5718232, 1486884, 5960758, 2644102, 4106003, 2005379, 33461291, 3208784 #### [facility] [address] [place] [address] Coding Summary.on 01-16-2020 Coding Summary. CODING DATE: 020 FINAL [facility] STATUS: Home (Routine DC) PAYOR: Leela ADMIT [...] CphT Date Saved: 01/16/2020 07:40 am Normal [facility] Estradiolon 01-16-2020 E2 [Mass/Vol] 1275.0 pg/mL [facility] Comment on above: Result Comment: Adul t Female: Follicular phase 12.5 - 166.0 Ovulation phase 85.8 - 498.0 Luteal phase 43.8 - 211.0 Postmenopausal <6.0 - 54.7 1st trimester 215.0 - >4300.0 Girls (1-10 years) 6.0 - 27.0 Mal ECLIA methodology Performed at: [facility] [address] [id number] PhD Subhash Coronel Performed By: #### 1 [id number], 9065671, 3335656, 6334913, 7551173, 2107019, 33766428, 7180889 #### [facility] [address] [place] [address] BhCG Quanton 01-15-2020 HCG.beta subunit Qn 4061 m[IU]/mL High 1-3 [facility] Comment on above: Result Comment: GEST ATIONAL AGE HCG RANGE (mIU/mL) NON- <1-3 0.2-1 WEEKS 5-50 1-2 WEEKS 50-500 2-3 WEEKS 100-5,000 3-4 WEEKS 500-10,000 4-5 WEEKS 1,000-50,000 5-6 WEEKS 10,000-100,000 6-8 WEEKS 15,000-200,000 8-12 WEEKS 10,000-100,000 Performed By: #### 1 9655186, 7350006, 7642123, 0676955, 6328658, 7373171, 84310296, 5964187 #### [facility] [address] [place] [address] Progesteroneon 01-15-2020 Progesterone [Mass/Vol] 32.10 ng/mL [facility] Comment on above: Result Comment: REFE RENCE RANGE Males 0.14-2.06 ng/mL Non- Females Follicular 0.10-0.60 ng/mL Luteal 3.00-17.5 ng/mL Midluteal 3.30-18.6 ng/mL Post-Menopausal 0.10-0.40 ng/mL First Trimester 8.30-66.5 ng/mL Second Trimester 18.9-66.1 ng/mL Third Trimester 35.8-312.4 ng/mL Performed By: #### 1 7212402, 9616016, 3273030, 4451055, 3197417, 8877020, 21458910, 9984088 #### [facility] [address] [place] [address] Coding Summary.on 01-09-2020 Coding Summary. CODING DATE: 020 FINAL [facility] STATUS: Home (Routine DC) PAYOR: Leela ADMIT [...] CphT Date Saved: 01/09/2020 07:10 am Normal [facility] Estradiolon 01-09-2020 E2 [Mass/Vol] 572.2 pg/mL [facility] Comment on above: Result Comment: Adul t Female: Follicular phase 12.5 - 166.0 Ovulation phase 85.8 - 498.0 Luteal phase 43.8 - 211.0 Postmenopausal <6.0 - 54.7 1st trimester 215.0 - >4300.0 Girls (1-10 years) 6.0 - 27.0 Mal ECLIA methodology Performed at: [facility] [address] [id number] PhD Subhash Coronel Performed By: #### 1 4810883, 8907808, 6774840, 4678489, 7893999, 5424872, 09101201, 8358115 #### [facility] [address] [place] [address] [facility] 01-08-2020 HCG.beta subunit Qn 898 m[IU]/mL High 1-3 [facility] Comment on above: Result Comment: GEST ATIONAL AGE HCG RANGE (mIU/mL) NON- <1-3 0.2-1 WEEKS 5-50 1-2 WEEKS 50-500 2-3 WEEKS 100-5,000 3-4 WEEKS 500-10,000 4-5 WEEKS 1,000-50,000 5-6 WEEKS 10,000-100,000 6-8 WEEKS 15,000-200,000 8-12 WEEKS 10,000-100,000 Performed By: #### 1 7977465, 1260225, 8197691, 8842160, 3441111, 3746476, 99879243, 5009404 #### [facility] [address] [place] [address] Progesteroneon 01-08-2020 Progesterone [Mass/Vol] 27.90 ng/mL [facility] Comment on above: Result Comment: REFE RENCE RANGE Males 0.14-2.06 ng/mL Non- Females Follicular 0.10-0.60 ng/mL Luteal 3.00-17.5 ng/mL Midluteal 3.30-18.6 ng/mL Post-Menopausal 0.10-0.40 ng/mL First Trimester 8.30-66.5 ng/mL Second Trimester 18.9-66.1 ng/mL Third Trimester 35.8-312.4 ng/mL Performed By: #### 1 0346489, 5197942, 6296187, 4790021, 3368104, 1640459, 74569543, 6895974 #### [facility] [address] [place] [address] Coding Summary.on 01-02-2020 Coding Summary. CODING DATE: 020 FINAL [facility] STATUS: Home (Routine DC) PAYOR: Hitterdal ADMIT DX: REASON FOR VISIT DX: Z32.01 [...] CphT Date Saved: 01/02/2020 10:23 am Normal [facility] Estradiolon 01-02-2020 E2 [Mass/Vol] 1694.0 pg/mL [facility] Comment on above: Result Comment: Adul t Female: Follicular phase 12.5 - 166.0 Ovulation phase 85.8 - 498.0 Luteal phase 43.8 - 211.0 Postmenopausal <6.0 - 54.7 1st trimester 215.0 - >4300.0 Girls (1-10 years) 6.0 - 27.0 Mal ECLIA methodology Performed at: [facility] [id number] PhD Subhash Coronel Performed By: #### 1 7823418, 2461308, 5809962, 9499239, 9464659, 9433439, 95595265, 8383090 #### [facility] [address] [place] [address] [facility] Quanton 01-01-2020 HCG.beta subunit Qn 124 m[IU]/mL High 1-3 [facility] Comment on above: Result Comment: GEST ATIONAL AGE HCG RANGE (mIU/mL) NON- <1-3 0.2-1 WEEKS 5-50 1-2 WEEKS 50-500 2-3 WEEKS 100-5,000 3-4 WEEKS 500-10,000 4-5 WEEKS 1,000-50,000 5-6 WEEKS 10,000-100,000 6-8 WEEKS 15,000-200,000 8-12 WEEKS 10,000-100,000 Performed By: #### 1 3115177, 4562575, 5098848, 8041085, 4637169, 5638983, 89944443, 6154117 #### [facility] [address] [place] [address] Coding Summary.on 01-01-2020 Coding Summary. CODING DATE: 020 FINAL [facility] STATUS: Home (Routine DC) PAYOR: Hitterdal ADMIT DX: REASON FOR VISIT DX: E28.9 [...] CphT Date Saved: 01/01/2020 02:22 pm Normal [facility] Progesteroneon 01-01-2020 Progesterone [Mass/Vol] 23.10 ng/mL [facility] Comment on above: Result Comment: REFE RENCE RANGE Males 0.14-2.06 ng/mL Non- Females Follicular 0.10-0.60 ng/mL Luteal 3.00-17.5 ng/mL Midluteal 3.30-18.6 ng/mL Post-Menopausal 0.10-0.40 ng/mL First Trimester 8.30-66.5 ng/mL Second Trimester 18.9-66.1 ng/mL Third Trimester 35.8-312.4 ng/mL Performed By: #### 1 6914127, 5077976, 2982402, 9049675, 4481521, 2311078, 51607406, 2343262 #### [facility] [address] [place] [address] Coding Summary.on 12-31-2019 Coding Summary. CODING DATE: 020 [facility] STATUS: Home (Routine DC) PAYOR: Hitterdal ADMIT DX: REASON FOR VISIT DX: E28.9 [...] [place] Date Saved: 12/31/2019 08:09 am Normal [facility] Estradiolon 12-30-2019 E2 [Mass/Vol] 1478.0 pg/mL [facility] Comment on above: Result Comment: Adul t Female: Follicular phase 12.5 - 166.0 Ovulation phase 85.8 - 498.0 Luteal phase 43.8 - 211.0 Postmenopausal <6.0 - 54.7 1st trimester 215.0 - >4300.0 Girls (1-10 years) 6.0 - 27.0 Mal ECLIA methodology Performed at: [facility] [address] [id number] PhD Subhash Coronel Performed By: #### 1 0539455, 3029867, 7847597, 1827309, 5435347, 1814066, 25913297, 5294142 #### [facility] [address] [place] [address] BhCG Quanton 12-29-2019 HCG.beta subunit Qn 34 m[IU]/mL High 1-3 [facility] Comment on above: Result Comment: GEST ATIONAL AGE HCG RANGE (mIU/mL) NON- <1-3 0.2-1 WEEKS 5-50 1-2 WEEKS 50-500 2-3 WEEKS 100-5,000 3-4 WEEKS 500-10,000 4-5 WEEKS 1,000-50,000 5-6 WEEKS 10,000-100,000 6-8 WEEKS 15,000-200,000 8-12 WEEKS 10,000-100,000 Performed By: #### 1 9168014, 2607571, 7415408, 0595436, 4154581, 5783090, 22553638, 8529024 #### [facility] [address] [place] [address] Progesteroneon 12-29-2019 Progesterone [Mass/Vol] 21.80 ng/mL [facility] Comment on above: Result Comment: REFE RENCE RANGE Males 0.14-2.06 ng/mL Non- Females Follicular 0.10-0.60 ng/mL Luteal 3.00-17.5 ng/mL Midluteal 3.30-18.6 ng/mL Post-Menopausal 0.10-0.40 ng/mL First Trimester 8.30-66.5 ng/mL Second Trimester 18.9-66.1 ng/mL Third Trimester 35.8-312.4 ng/mL Performed By: #### 1 8619387, 9048847, 2771752, 8379505, 5019297, 6476352, 64055878, 1519855 #### [facility] [address] [place] [address] BhCG Quanton 12-27-2019 HCG.beta subunit Qn 19 m[IU]/mL High 1-3 [facility] Comment on above: Result Comment: GEST ATIONAL AGE HCG RANGE (mIU/mL) NON- <1-3 0.2-1 WEEKS 5-50 1-2 WEEKS 50-500 2-3 WEEKS 100-5,000 3-4 WEEKS 500-10,000 4-5 WEEKS 1,000-50,000 5-6 WEEKS 10,000-100,000 6-8 WEEKS 15,000-200,000 8-12 WEEKS 10,000-100,000 Performed By: #### 1 1976859, 2506201, 8424380, 0405459, 1603618, 7267743, 76957681, 5872559 #### [facility] [address] [place] [address] Progesteroneon 12-27-2019 Progesterone [Mass/Vol] 22.60 ng/mL [facility] Comment on above: Result Comment: REFE RENCE RANGE Males 0.14-2.06 ng/mL Non- Females Follicular 0.10-0.60 ng/mL Luteal 3.00-17.5 ng/mL Midluteal 3.30-18.6 ng/mL Post-Menopausal 0.10-0.40 ng/mL First Trimester 8.30-66.5 ng/mL Second Trimester 18.9-66.1 ng/mL Third Trimester 35.8-312.4 ng/mL Performed By: #### 1 0879710, 6798129, 8244392, 3992573, 2173143, 0809338, 99959176, 9209035 #### [facility] [address] [place] [address] Coding Summary.on 12-25-2019 Coding Summary. CODING DATE: 020 FINAL [facility] STATUS: Home (Routine DC) PAYOR: Leela ADMIT [...] CphT Date Saved: 12/22/2019 04:17 pm Normal [facility] Coding Summary. CODING DATE: 020 [facility] STATUS: PAYOR: Leela ADMIT DX: REASON FOR [...] CphT Date Saved: 12/22/2019 04:17 pm Normal [facility] Estradiolon 12-23-2019 E2 [Mass/Vol] 1555.0 pg/mL [facility] Comment on above: Result Comment: Adul t Female: Follicular phase 12.5 - 166.0 Ovulation phase 85.8 - 498.0 Luteal phase 43.8 - 211.0 Postmenopausal <6.0 - 54.7 1st trimester 215.0 - >4300.0 Girls (1-10 years) 6.0 - 27.0 Mal ECLIA methodology Performed at: [facility] [id number] PhD Subhash Coronel Performed By: #### 1 6028888, 4950030, 7277103, 0522870, 3227182, 8379576, 91717085, 0555845 #### [facility] [address] [place] [address] Progesteroneon 12-22-2019 Progesterone [Mass/Vol] 25.40 ng/mL [facility] Comment on above: Result Comment: REFE RENCE RANGE Males 0.14-2.06 ng/mL Non- Females Follicular 0.10-0.60 ng/mL Luteal 3.00-17.5 ng/mL Midluteal 3.30-18.6 ng/mL Post-Menopausal 0.10-0.40 ng/mL First Trimester 8.30-66.5 ng/mL Second Trimester 18.9-66.1 ng/mL Third Trimester 35.8-312.4 ng/mL Performed By: #### 1 5219822, 5087099, 4795515, 6255392, 1153559, 4779070, 68177431, 9749138 #### [facility] [address] [place] [address] Coding Summary.on 12-11-2019 Coding Summary. CODING DATE: 020 FINAL [facility] STATUS: Home (Routine DC) PAYOR: Leela APC [...] CphT Date Saved: 12/11/2019 12:51 pm Normal [facility] Estradiolon 12-09-2019 E2 [Mass/Vol] 1486.0 pg/mL [facility] Comment on above: Result Comment: Adul t Female: Follicular phase 12.5 - 166.0 Ovulation phase 85.8 - 498.0 Luteal phase 43.8 - 211.0 Postmenopausal <6.0 - 54.7 1st trimester 215.0 - >4300.0 Girls (1-10 years) 6.0 - 27.0 Mal ECLIA methodology Performed at: [facility] [id number] PhD Subhash Coronel Performed By: #### 1 2058847, 3549831, 9261555, 4712049, 7615643, 3538146, 81270491, 4421140 #### [facility] [address] [place] [address] LHon 12-09-2019 Lutropin Qn 6.2 m[IU]/mL [facility] Comment on above: Result Comment: Adul t Female: Follicular phase 2.4 - 12.6 Ovulation phase 14.0 - 95.6 Luteal phase 1.0 - 11.4 Postmenopausal 7.7 - 58.5 Performed at: [facility] [id number] PhD Subhash Coronel Performed By: #### 1 5443110, 6344210, 1166156, 9667031, 1064941, 1255368, 34209639, 8087054 #### [facility] [address] [place] [address] Progesteroneon 12-08-2019 Progesterone [Mass/Vol] ng/mL [facility] Comment on above: Result Comment: REFE RENCE RANGE Males 0.14-2.06 ng/mL Non- Females Follicular 0.10-0.60 ng/mL Luteal 3.00-17.5 ng/mL Midluteal 3.30-18.6 ng/mL Post-Menopausal 0.10-0.40 ng/mL First Trimester 8.30-66.5 ng/mL Second Trimester 18.9-66.1 ng/mL Third Trimester 35.8-312.4 ng/mL Performed By: #### 1 7299567, 1309489, 3454699, 1732423, 8984089, 4667176, 82529243, 3489074 #### [facility] [address] [place] [address] US Pelvis Non-OB Completeon 12-08-2019 US Pelvis [...] Transabdominal Ultrasound Performed Transvaginal Ultrasound Performed Normal [facility] US Transvaginal Non-OBon US Transvaginal Non-OB Exam Date/Time: 12/08/2019 07:42 EST Reason for Exam: OVARIAN DYSFUNCTION Report Please refer to prior transabdominal pelvic sonogram report. FINAL REPORT Dictated: 12/08/2019 12:35 pm Citlaly Buchanan MD Signed (Electronic Signature): 12/08/2019 12:35 pm Signed by: Citlaly Buchanan MD Transcribed by: MADISON Technologist: JESSICA Normal [facility] Coding Summary.on 12-05-2019 Coding Summary. CODING DATE: 020 FINAL [facility] STATUS: Home (Routine DC) PAYOR: Leela APC [...] CphT Date Saved: 12/05/2019 10:15 am Normal [facility] Estradiolon 12-05-2019 E2 [Mass/Vol] 1328.0 pg/mL [facility] Comment on above: Result Comment: Adul t Female: Follicular phase 12.5 - 166.0 Ovulation phase 85.8 - 498.0 Luteal phase 43.8 - 211.0 Postmenopausal <6.0 - 54.7 1st trimester 215.0 - >4300.0 Girls (1-10 years) 6.0 - 27.0 Mal ECLIA methodology Performed at: [facility] [address] [id number] PhD Subhash Coronel Performed By: #### 1 1775743, 0061959, 7850905, 6885476, 2838716, 6978233, 98138629, 6464447 #### [facility] [address] [place] [address] LHon 12-05-2019 Lutropin Qn 7.2 m[IU]/mL [facility] Comment on above: Result Comment: Adul t Female: Follicular phase 2.4 - 12.6 Ovulation phase 14.0 - 95.6 Luteal phase 1.0 - 11.4 Postmenopausal 7.7 - 58.5 Performed at: [facility] [address] [id number] PhD Subhash Coronel Performed By: #### 1 1952489, 3480941, 4193645, 2675447, 1729923, 9521258, 26719537, 6895224 #### [facility] [address] [place] [address] Progesteroneon 12-04-2019 Progesterone [Mass/Vol] ng/mL [facility] Comment on above: Result Comment: REFE RENCE RANGE Males 0.14-2.06 ng/mL Non- Females Follicular 0.10-0.60 ng/mL Luteal 3.00-17.5 ng/mL Midluteal 3.30-18.6 ng/mL Post-Menopausal 0.10-0.40 ng/mL First Trimester 8.30-66.5 ng/mL Second Trimester 18.9-66.1 ng/mL Third Trimester 35.8-312.4 ng/mL Performed By: #### 1 2006763, 5228989, 3557004, 7922954, 7652856, 5780483, 19744618, 2444236 #### [facility] [address] [place] [address] US Pelvis Non-OB Completeon 12-04-2019 US Pelvis [...] Comments Transabdominal Ultrasound Performed Transvaginal Ultrasound Performed [facility] US Transvaginal Non-OBon US Transvaginal Non-OB Exam Date/Time: 12/04/2019 07:41 EST Reason for Exam: OVARIAN DYSFUNCTION Report PLEASE REFER TO THE ULTRASOUND PELVIS NON-OB COMPLETE REPORT. FINAL REPORT Dictated: 12/04/2019 9:12 am Go Kaplan M.D. Signed (Electronic Signature): 12/04/2019 9:12 am Signed by: Go Kaplan M.D. Transcribed by: MADISON Technologist: SYBIL [facility] Coding Summary.on 12-01-2019 Coding Summary. CODING DATE: 020 FINAL [facility] STATUS: Home (Routine DC) PAYOR: Hitterdal APC DESCRIPTION 5522 Level 2 Imaging without [...] Hill CphT Date Saved: 12/01/2019 12:45 pm [facility] Estradiolon 12-01-2019 E2 [Mass/Vol] 945.3 pg/mL [facility] Comment on above: Result Comment: Adul t Female: Follicular phase 12.5 - 166.0 Ovulation phase 85.8 - 498.0 Luteal phase 43.8 - 211.0 Postmenopausal <6.0 - 54.7 1st trimester 215.0 - >4300.0 Girls (1-10 years) 6.0 - 27.0 Mal ECLIA methodology Performed at: [employer] [id number] PhD Subhash Coronel Performed By: #### 1 3881962, 1651662, 8848807, 7971251, 2864172, 3429339, 10955548, 9683282 #### [facility] [address] [place] [address] LHon 12-01-2019 Lutropin Qn 6.9 m[IU]/mL [facility] Comment on above: Result Comment: Adul t Female: Follicular phase 2.4 - 12.6 Ovulation phase 14.0 - 95.6 Luteal phase 1.0 - 11.4 Postmenopausal 7.7 - 58.5 Performed at: [employer] [id number] PhD Subhash Coronel Performed By: #### 1 [id number], 0586916, 8117310, 9022418, 5520769, 2317250, 33037947, 9376798 #### [facility] [address] [place] [address] Progesteroneon 11-30-2019 Progesterone [Mass/Vol] 0.10 ng/mL [facility] Comment on above: Result Comment: REFE RENCE RANGE Males 0.14-2.06 ng/mL Non- Females Follicular 0.10-0.60 ng/mL Luteal 3.00-17.5 ng/mL Midluteal 3.30-18.6 ng/mL Post-Menopausal 0.10-0.40 ng/mL First Trimester 8.30-66.5 ng/mL Second Trimester 18.9-66.1 ng/mL Third Trimester 35.8-312.4 ng/mL Performed By: #### 1 9173724, 2190378, 1650471, 5365580, 8960803, 0619201, 60603514, 6409091 #### [facility] [address] [place] [address] US Pelvis Non-OB Completeon 11-30-2019 US Pelvis [...] 11/30/2019 13:21 EST by Go Kaplan M.D. [facility] US Transvaginal Non-OBon US Transvaginal Non-OB Exam Date/Time: 11/30/2019 07:37 EST Reason for Exam: ovarian dysfunction Report PLEASE REFER TO THE ULTRASOUND PELVIS NON-OB COMPLETE REPORT. FINAL REPORT Dictated: 11/30/2019 9:01 am Go Kaplan M.D. Signed (Electronic Signature): 11/30/2019 9:01 am Signed by: Go Kaplan M.D. Transcribed by: MADISON Technologist: JESSICA Normal [facility] Coding Summary.on 11-24-2019 Coding Summary. CODING DATE: 020 [facility] STATUS: Home (Routine DC) PAYOR: Hitterdal APC DESCRIPTION 5522 Level 2 Imaging without [...] CphT Date Saved: 11/24/2019 08:10 am Normal [facility] Estradiolon 11-24-2019 E2 [Mass/Vol] 35.2 pg/mL [facility] Comment on above: Result Comment: [facility] t Female: Follicular phase 12.5 - 166.0 Ovulation phase 85.8 - 498.0 Luteal phase 43.8 - 211.0 Postmenopausal <6.0 - 54.7 1st trimester 215.0 - >4300.0 Girls (1-10 years) 6.0 - 27.0 Mal ECLIA methodology Performed at: [address] [id number] PhD Subhash Coronel Performed By: #### 1 4362665, 2653074, 2468432, 2569815, 6955238, 6153166, 41941050, 2709632 #### [facility] [address] [place] [address] FSH and LHon 11-24-2019 Follitropin Qn 8.7 m[IU]/mL [facility] Comment on above: Result Comment: [facility] t Female: Follicular phase 3.5 - 12.5 Ovulation phase 4.7 - 21.5 Luteal phase 1.7 - 7.7 Postmenopausal 25.8 - 134.8 Performed at: [address] [id number] PhD Subhash Coronel Performed By: #### 1 [id number], [id number], [id number], [id number] #### [facility] [address] [place] [address] Lutropin Qn 9.1 m[IU]/mL [facility] Comment on above: Result Comment: [facility] t Female: Follicular phase 2.4 - 12.6 Ovulation phase 14.0 - 95.6 Luteal phase 1.0 - 11.4 Postmenopausal 7.7 - 58.5 Performed By: #### 1 [id number], [id number], [id number], [id number], [id number], [id number], [id number] #### [facility] [address] [place] [address] BhCG Quanton 11-23-2019 HCG.beta subunit Qn m[IU]/mL Normal 1-3 [facility] Comment on above: Result Comment: GEST ATIONAL AGE HCG RANGE (mIU/mL) NON- <1-3 0.2-1 WEEKS 5-50 1-2 WEEKS 50-500 2-3 WEEKS 100-5,000 3-4 WEEKS 500-10,000 4-5 WEEKS 1,000-50,000 5-6 WEEKS 10,000-100,000 6-8 WEEKS 15,000-200,000 8-12 WEEKS 10,000-100,000 Performed By: #### 1 8970039, 9203825, 1487303, 2001815, 8491335, 9202449, 72644245, 4143622 #### [facility] [address] [place] [address] Progesteroneon 11-23-2019 Progesterone [Mass/Vol] 0.40 ng/mL [facility] Comment on above: Result Comment: REFE RENCE RANGE Males 0.14-2.06 ng/mL Non- Females Follicular 0.10-0.60 ng/mL Luteal 3.00-17.5 ng/mL Midluteal 3.30-18.6 ng/mL Post-Menopausal 0.10-0.40 ng/mL First Trimester 8.30-66.5 ng/mL Second Trimester 18.9-66.1 ng/mL Third Trimester 35.8-312.4 ng/mL Performed By: #### 1 0650901, 9942423, 4093235, 9990122, 8616875, 0680794, 20303739, 4694744 #### [facility] [address] [place] [address] TSHon 11-23-2019 TSH Qn 0.76 mcIU/mL Normal 0.34-5.60 [facility] Comment on above: Performed By: #### 1 6207668, 1544451, 3349010, 3386716, 2208841, 7115899, 67835995, 4020241 #### [facility] [address] [place] [address] US Pelvis Non-OB Completeon 11-23-2019 US Pelvis [...] Transabdominal Ultrasound Performed Transvaginal Ultrasound Performed Normal [facility] US Transvaginal Non-OBon US Transvaginal Non-OB Exam Date/Time: 11/23/2019 07:40 EST Reason for Exam: OVARIAN DYSFUNCTION Report PLEASE REFER TO THE ULTRASOUND PELVIS NON-OB COMPLETE REPORT. FINAL REPORT Dictated: 11/23/2019 9:26 am Go Kaplan M.D. Signed (Electronic Signature): 11/23/2019 9:26 am Signed by: Go Kaplan M.D. Transcribed by: MADISON Technologist: JESSICA [facility] Coding Summary.on 10-24-2019 Coding Summary. CODING DATE: 020 FINAL [facility] STATUS: Home (Routine DC) PAYOR: Leela APC DESCRIPTION 5414 Level 4 Gynecologic Procedures ADMIT DX: REASON FOR VISIT DX: O02.1 Missed FINAL DX: PRINCIPAL: O02.1 Missed SECONDARY: I10 Essential (primary) hypertension E03.9 Hypothyroidism, unspecified PYMT PROC APC STAT DESCRIPTION DOCTOR NAME DATE 91651 5414 J1 Treatment of missed Davie Grijalva MD 10/20/2019 , completed surgically; first trimester 38708 Anesthesia for Davie Eaton Jr, DO 10/20/2019 incomplete or missed procedures NOTE: The code number assigned matches the documented diagnosis and / or procedure in the patient's chart. However, the narrative phrase printed from the coding software may appear abbreviated, or result in slightly different terminology. Revised Coded By: Althea Otrega Revised Date Saved: 10/24/2019 02:47 pm [facility] Main OR Intraoperative Recor don 10-23-2019 Main OR Intraoperative Record IntraOp Document Type FT Summary Primary Physician: Davie Grijalva MD Finalized Date/Time: 10/23/19 11:48:56 Pt. Name: SUKHDEV SCHWARTZ/Sex: 1985 Female Med Rec #: [id number] Physician: Davie Grijalva MD Financial #: [id number] Pt. Type: A Room/Bed: Admit/Disch: 10/20/19 12:59:16 - 10/20/19 16:25:00 Institution: Case Times FT Entry 1 Patient Times In Room 10/20/19 14:00:00 Out Room 10/20/19 14:34:00 Procedure Times Start 10/20/19 14:19:00 Stop 10/20/19 14:25:00 Anesthesia Times Start 10/20/19 14:00:00 Stop 10/20/19 14:34:00 Last Modified By: Nona Cuellar RN 10/20/19 14:34:06 General Comments: 10/23/2019 Chart opened to review and send charges Hilda Stein AZURE PRINCIPAL SOLUTION SPECIALIST Case Attendance FT Entry 1 Entry 2 Entry 3 Case Attendee Carlito OVALLES, Geri Grijalva MD, Davie Castelan RN, Rena Role Performed Anesthesiologist Surgeon - Primary Executive Relations Specialist - Primary Head Track Coach Time In 10/20/19 14:00:00 10/20/19 14:16:00 10/20/19 14:00:00 Time Out 10/20/19 14:34:00 10/20/19 14:26:00 10/20/19 14:34:00 Procedure DILATATION and SUCTION DILATATION and SUCTION DILATATION and SUCTION CURETTAGE(.) CURETTAGE(.) CURETTAGE(.) Comments DR EATON SUPERVISING Last Modified By: Polo RN, Nona Cuellar RN, Nona Contreras RN 10/20/19 14:35:30 10/20/19 14:35:30 10/20/19 14:35:30 Entry 4 Entry 5 Case Attendee Polo GOODRICH, Nona Crook AZURE PRINCIPAL SOLUTION SPECIALIST, Mónica Role Performed Executive Relations Specialist - Primary Scrub - Primary Time [...] and tissue Entry 1 Skin Integrity Intact, Meigs, Warm, and Skin Abnormality No Dry Outcomes [...] Cuellar RN, Hord RN, Abby, Costello Crook AZURE PRINCIPAL SOLUTION SPECIALIST, Mónica AZURE PRINCIPAL SOLUTION SPECIALIST, Mónica Outcomes Met? Yes Yes Last Modified By: Sharon SpringsNona bishop RN, RN, Emily A 10/20/19 14:21:22 [...] RN Patient Status Stable Skin. Condition Intact, Meigs, Warm, and Dry Airway Maintenance Oxygen in Use? Yes Airway Device Simple Mask Flow Rate 8 L/min Outcomes Met? Yes Last Modified By: Nona Cuellar RN 10/20/19 14:35:23 Post-Care Text: The patient is free from signs and symptoms of injury related to transfer/transport General Comments: report given to contracts attorneyElayne mayo rn Dressing/Packing FT Pre-Care Text: Administers [...] STRAIGHT Present Upon Arrival No Inserted 16FR [[id number]][F] Insertion Date/Time 10/20/19 14:15:00 Insertion Site Uretheral [...] BLANKET MISTRAL AIR Quantity 1 Aid TORSO [[id number]][F] Fluid/[place] [facility] Mistral warming system Setting high/43 Body Site Upper anterior torso Last Modified By: Nona Cuellar RN 10/20/19 13:54:58 Case Comments Finalized By: Juanita Stein CST Document Signatures Signed By: Nona Cuellar RN 10/20/19 14:35 Juanita Stein CST 10/23/19 11:48 Normal [facility] Operative Reporton 0 Operative Report Date [...] Davie Grijalva MD, FACOG gls Dictated: 10/20/2019 #[id number] Typed: 10/23/2019 #[id number] cc: Davie Grijalva MD, FACOG [facility] Comment on above: Result Comment: Elec tronically [...] Davie Grijalva MD, FACOG cr Dictated: 10/20/2019 #[id number] Typed: 10/21/2019 #[id number] cc: Davie Grijalva MD, FACISRAEL [facility] Comment on above: Result Comment: Elec tronically Signed By: Rudi GUSTAFSON, Davie Duong\.br\Date and Time Signed: 10/22/19 09:39 EST [...] All Problems Ovarian dysfunction / SNOMED CT 85523932 / Confirmed Hypothyroidism / SNOMED CT 56818946 / Confirmed Incomplete miscarriage / SNOMED CT 158709613 / Confirmed missed Pancreatitis / SNOMED CT 543959812 / Confirmed Histories Past Medical History: No active or resolved past medical history items have been selected or recorded. Family History: Diabetes mellitus type 2 Mother Thyroid cancer Mother Sister Procedure history: Cholecystectomy ([id number]) on 07/19/2019 at 33 Years. DIAGNOSTIC LAPAROSCOPY [...] results Radiology results ECG interpretation Condition Plan [employer] [employer] Anesthesiologists (ASA) physical status classification: Class II. Anesthetic Preoperative Plan Anesthesia: General. . Anesthetic plan, risks, benefits, and alternatives discussed with the patient and/or family. Risks discussed: nausea, vomiting, headache, sore throat, dental injury, serious complications. Patient verbalized understanding. Communication: face to face with (patient 5 minutes, Pt educated on the importance of smoking cessation.). [facility] Comment on above: Result Comment: Elec tronically Signed By: Davie Eaton Jr, DO\doyle\Date and Time Signed: 10/23/19 07:34 EST Coding Summary.on 10-20-2019 Coding Summary. CODING DATE: 020 FINAL [facility] STATUS: Home (Routine DC) PAYOR: [...] Hill CphT Date Saved: 10/20/2019 09:01 am [facility] History and Physicalon 10-20 History and Physical [...] Davie Grijalva MD, FACOG gls Dictated: 10/20/2019 #[id number] Typed 10/20/2019 #[id number] cc: Davie Grijalva MD, FACOG Normal [facility] Comment on above: Result Comment: Elec tronically Signed By: Rudi GUSTAFSON, Davie Duong\.br\Date and Time Signed: 10/20/19 10:15 EST Inpatient Patient Summaryon 10-20-2019 Inpatient Patient Summary [place] [id number] [facility] Clinical Discharge Instructions PERSON INFORMATION Name: SUKHDEV SCHWARTZ [facility]#:[id number] PHYSICIANS Admitting Physician: Davie Grijalva MD Attending Physician: Davie Grijalva MD PCP: LOLI MATIAS MD Discharge Diagnosis: Hypothyroidism; Incomplete miscarriage; Status post dilation and curettage Comment: PATIENT EDUCATION INFORMATION Instructions: Post Op Patient Instructions - FT (CUSTOM); 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 MEDICATION LIST New Medications [facility] [address] [place], [place] [id number], [phone] ibuprofen (ibuprofen 600 mg Tab) 1 Tablets [...] Mouth 2 times a day. Comment: Normal [facility] Main OR PACU I Recordon Main OR PACU I Record PACU Phase I Document Type FT Summary Primary Physician: Davie Grijalva MD Finalized Date/Time: 10/20/19 14:55:25 Pt. Name: SEN SCHWARTZTRUMAN Cote/Sex: 1985 Female Med Rec #: [id number] Physician: Davie Grijalva MD Financial #: [id number] Pt. Type: A Room/Bed: 05/18 Admit/Disch: 10/20/19 [...] By: Carin Iverson RN 10/20/19 14:55 Normal [facility] Main OR Preoperative Recordo n 10-20-2019 Main OR Preoperative Record PreOp Document Type FT Summary Primary Physician: Davie Grijalva MD Finalized Date/Time: 10/20/19 14:24:04 Pt. Name: SUKHDEV SCHWARTZ/Sex: 1985 Female Med Rec #: [id number] Physician: Davie Grijalva MD Financial #: [id number] Pt. Type: A Room/Bed: [facility] Admit/Disch: 10/20/19 12:59:16 - Institution: Case [...] By: Nona Cuellar RN 10/20/19 14:24 Normal [facility] Patient Education - Texton 0 10-20-2019 [...] cramps. PLEASE CALL FOR ANY PROBLEMS Normal [facility] Coding Summary.on 10-19-2019 Coding Summary. CODING DATE: 020 FINAL [facility] STATUS: Home (Routine DC) PAYOR: [...] CphT Date Saved: 10/19/2019 12:19 pm Normal [facility] RPRon 10-19-2019 Reagin Ab RPR Ql (S) Non-Reactive Normal Non-Reactiv e [facility] Comment on above: Performed By: #### 1 4008315, 6266544, 9972256, 1716717, 8817579, 5524132, 76988636, 6496427 #### [facility] [address] [place] [address] ABO/Rh Retypeon 10-17-2019 ABO/Rh Retype Interp Positive [facility] Comment on above: Performed By: #### 1 2617454, 7728422, 5178050, 5429899, 7023417, 6409489, 87767916, 0421595 #### [facility] [address] [place] [address] BUNon 10-17-2019 Urea nitrogen [Mass/Vol] 12 mg/dL Normal 5-21 [facility] Comment on above: Performed By: #### 1 0271245, 9548530, 5852945, 8850420, 7328985, 2516330, 79492877, 4265741 #### [facility] [address] [place] [address] CBC w/Indiceson 10-17-2019 Erythrocyte distribution width (RBC) [Ratio] 12.7 % Normal 10.9-14.2 [facility] Comment on above: Performed By: #### 1 6298883, 2820746, 7657081, 2537858, 9119851, 8866632, 93853395, 8896758 #### [facility] [address] [place] [address] Hematocrit (Bld) [Volume fraction] 34.6 % Normal 34.0-46.0 [facility] Comment on above: Performed By: #### 1 3907361, 3601816, 1982969, 7612194, 6450370, 1626331, 37731996, 6896604 #### [facility] [address] [place] [address] Hemoglobin (Bld) [Mass/Vol] 11.7 g/dL Low 12.0-16.0 [facility] Comment on above: Performed By: #### 1 0066307, 6279471, 7952292, 6185525, 6248863, 8251043, 91421320, 4924762 #### [facility] [address] [place], [place] [address] MCH (RBC) [Entitic mass] 30.7 pg Normal 27.0-34.0 [facility] Comment on above: Performed By: #### 1 6246570, 3921414, 0302261, 9446987, 4225488, 2438057, 25467726, 3919949 #### [facility] [address] [place] [address] MCHC (RBC) [Mass/Vol] 33.8 g/dL Normal 31.4-36.0 [facility] Comment on above: Performed By: #### 1 7758814, 4796654, 4153518, 1722414, 5068705, 7685632, 55917077, 2214765 #### [facility] [address] [place] [address] MCV (RBC) [Entitic vol] 90.8 fL Normal 80.0-100.0 [facility] Comment on above: Performed By: #### 1 4342340, 7837918, 7975927, 6931058, 5537660, 1806797, 35724768, 2686095 #### [facility] [address] [place] [address] Platelet mean volume (Bld) [Entitic vol] 7.5 fL Normal 6.4-10.8 [facility] Comment on above: Performed By: #### 1 7172976, 3434171, 1941447, 7703626, 4154544, 3074212, 58539519, 6094536 #### [facility] [address] [place] [address] Platelets (Bld) [#/Vol] 319.0 E9/L Normal 150.0-500.0 [facility] Comment on above: Performed By: #### 1 5243369, 1073525, 8564809, 1340446, 2281232, 3143845, 02837161, 7707842 #### [facility] [address] [place] [address] RBC (Bld) [#/Vol] 3.8 E12/L Low 4.3-5.9 [facility] Comment on above: Performed By: #### 1 5921118, 5066789, 0337487, 7884276, 6191197, 4379592, 36317112, 4845453 #### [facility] [address] [place] [address] WBC corrected for nucl RBC Auto (Bld) [#/Vol] 6.1 E9/L Normal 4.0-11.0 [facility] Comment on above: Performed By: #### 1 4813056, 1142431, 8439576, 5293508, 5553456, 7881445, 65111879, 8274867 #### [facility] [address] [place] [address] Creatinineon 10-17-2019 Creatinine [Mass/Vol] 0.6 mg/dL Normal 0.5-1.3 [facility] Comment on above: Performed By: #### 1 5231738, 4198500, 8810199, 4146462, 1039216, 5357369, 49051715, 3385669 #### [facility] [address] [place] [address] Lyteson 10-17-2019 Anion gap [Moles/Vol] 12 mmol/L Normal 6-16 [facility] Comment on above: Performed By: #### 1 9721274, 1589310, 0900882, 6466898, 1898816, 7563732, 09166147, 4643297 #### [facility] [address] [place] [address] Chloride [Moles/Vol] 109 mmol/L Normal 101-111 [facility] Comment on above: Performed By: #### 1 8688222, 4752618, 2023926, 1258264, 4877723, 9325898, 09187029, 3236155 #### [facility] [address] [place] [address] CO2 [Moles/Vol] 26 mmol/L Normal 21-31 [facility] Comment on above: Performed By: #### 1 9295532, 7279681, 0210582, 4427308, 5831350, 8499824, 44416846, 7080936 #### [facility] [address] [place] [address] Potassium [Moles/Vol] 4.3 mmol/L Normal 3.5-5.3 [facility] Comment on above: Performed By: #### 1 3164115, 3294769, 5551676, 2820235, 6003975, 9470669, 88636170, 7401865 #### [facility] [address] [place] [address] Sodium [Moles/Vol] 143 mmol/L Normal 135-145 [facility] Comment on above: Performed By: #### 1 6139471, 9482395, 3502540, 0471877, 1552184, 5656000, 68540939, 8651240 #### [facility] [address] [place] [address] PT & PTTon 10-17-2019 aPTT Coag (PPP) [Time] 29.9 second(s) Normal 25.1-36.5 [facility] Comment on above: Result Comment: Hepa rin therapeutic range (represented by Anti-Factor Xa activity of 0.2 - 0.4 U/mL) corresponds to PTT of 56.6 - 109.0 sec. Performed By: #### 1 3721089, 2735881, 3740593, 1224093, 2913456, 1755426, 91990796, 5203266 #### [facility] [address] [place] [address] INR Coag (PPP) [Relative time] 1.0 {INR} [facility] Comment on above: Result Comment: INR results are specifically intended to assess patients stabilized on long-term Anticoagulation therapy suggested INR?s ?Less Intensive Anticoagulation? 2.0 ? 3.0 Conventional Range 3.0 ? 4.5 Performed By: #### 1 0166650, 5509779, 6550868, 4411429, 2485331, 6233181, 78661700, 0183012 #### [facility] [address] [place] [address] PT Coag (PPP) [Time] 11.0 second(s) Normal 10.2-12.9 [facility] Comment on above: Performed By: #### 1 6062208, 1625596, 6582532, 4249773, 7358839, 2775394, 85668188, 0117780 #### [facility] [address] [place] [address] eGFRon 10-17-2019 GFR/1.73 sq M predicted among blacks MDRD (S/P/Bld) [Vol rate/Area] mL/min/{1.73_m2} Normal >=59 [facility] Comment on above: Order Comment: Order added by Discern Expert. Result Comment: eGFR is race adjusted. AA=. Performed By: #### 1 4097969, 9763731, 9458007, 3885321, 9774475, 5681970, 34672100, 1965031 #### [facility] [address] [place] [address] GFR/1.73 sq M predicted among non-blacks MDRD (S/P/Bld) [Vol rate/Area] mL/min/{1.73_m2} Normal >=59 [facility] Comment on above: Order Comment: Order added by Discern Expert. Result Comment: Warning Coordination Meteorologist ivan kidney disease could be indicated at eGFR's of less than 60 mL/min/1.73m2. Kidney failure is indicated at less than 15 mL/min/1.73m2. Performed By: #### 1 1696470, 1162260, 8305733, 3942537, 5794847, 8094279, 29846405, 2876045 #### [facility] [address] [place] [address] Coding Summary.on 10-12-2019 Coding Summary. CODING DATE: 019 FINAL [facility] STATUS: Home (Routine DC) PAYOR: [...] CphT Date Saved: 10/12/2019 12:46 pm Normal [facility] BhCG Quanton 10-09-2019 HCG.beta subunit Qn 1862 m[IU]/mL High 1-3 [facility] Comment on above: Result Comment: GEST ATIONAL AGE HCG RANGE (mIU/mL) NON- <1-3 0.2-1 WEEKS 5-50 1-2 WEEKS 50-500 2-3 WEEKS 100-5,000 3-4 WEEKS 500-10,000 4-5 WEEKS 1,000-50,000 5-6 WEEKS 10,000-100,000 6-8 WEEKS 15,000-200,000 8-12 WEEKS 10,000-100,000 Performed By: #### 1 9418652, 1081562, 4786663, 9243906, 3569220, 1780288, 64900246, 9873675 #### [facility] [address] [place] [address] Coding Summary.on 10-06-2019 Coding Summary. CODING DATE: 019 FINAL [facility] STATUS: Home (Routine DC) PAYOR: Commercial [...] CphT Date Saved: 10/06/2019 12:45 pm Normal [facility] US 1st Trimesteron 10-06-2019 US 1st [...] Size < Dates Uterus Position Anteverted Normal [facility] US Transvaginalon 10-06-2019 US Transvaginal Exam Date/Time: 10/05/2019 13:36 EST Reason for Exam: possible ectopic Report PLEASE REFER TO THE ULTRASOUND FIRST TRIMESTER REPORT. FINAL REPORT Dictated: 10/06/2019 10:35 am Go Kaplan M.D. Signed (Electronic Signature): 10/06/2019 10:35 am Signed by: Go Kaplan M.D. Transcribed by: MADISON Technologist: COREY Normal [facility] BhCG Quanton 10-05-2019 HCG.beta subunit Qn 1726 m[IU]/mL High 1-3 [facility] Comment on above: Result Comment: GEST ATIONAL AGE HCG RANGE (mIU/mL) NON- <1-3 0.2-1 WEEKS 5-50 1-2 WEEKS 50-500 2-3 WEEKS 100-5,000 3-4 WEEKS 500-10,000 4-5 WEEKS 1,000-50,000 5-6 WEEKS 10,000-100,000 6-8 WEEKS 15,000-200,000 8-12 WEEKS 10,000-100,000 Performed By: #### 2 500155 ####[facility] [address] [place] [address] Coding Summary.on 10-04-2019 Coding Summary. CODING DATE: 019 [facility] STATUS: Home (Routine DC) PAYOR: Commercial [...] CphT Date Saved: 10/04/2019 02:19 pm Normal [facility] Estradiolon 10-04-2019 E2 [Mass/Vol] 189.4 pg/mL [facility] Comment on above: Result Comment: Adul t Female: Follicular phase 12.5 - 166.0 Ovulation phase 85.8 - 498.0 Luteal phase 43.8 - 211.0 Postmenopausal <6.0 - 54.7 1st trimester 215.0 - >4300.0 Girls (1-10 years) 6.0 - 27.0 Mal ECLIA methodology Performed at: [facility] [id number] PhD Subhash Coronel Performed By: #### 2 219815, 9165408, 37047838, 8497946 ####[facility] [address] [place] [address] FSH and LHon 10-04-2019 Follitropin Qn 4.6 m[IU]/mL [facility] Comment on above: Result Comment: [facility] Female: Follicular phase 3.5 - 12.5 Ovulation phase 4.7 - 21.5 Luteal phase 1.7 - 7.7 Postmenopausal 25.8 - 134.8 Performed at: [facility] [id number] PhD Subhash Coronel Performed By: #### 2 218508, 7852577, 27018417, 8770651 ####[facility] [address] [place] [address] Lutropin Qn 10.0 m[IU]/mL [facility] Comment on above: Result Comment: [facility] Female: Follicular phase 2.4 - 12.6 Ovulation phase 14.0 - 95.6 Luteal phase 1.0 - 11.4 Postmenopausal 7.7 - 58.5 Performed By: #### 2 448097, 4175366, 28976123, 0629542 ####[facility] [address] [place] [address] BhCG Quanton 10-03-2019 HCG.beta subunit Qn 1625 m[IU]/mL High 1-3 [facility] Comment on above: Result Comment: GEST ATIONAL AGE HCG RANGE (mIU/mL) NON- <1-3 0.2-1 WEEKS 5-50 1-2 WEEKS 50-500 2-3 WEEKS 100-5,000 3-4 WEEKS 500-10,000 4-5 WEEKS 1,000-50,000 5-6 WEEKS 10,000-100,000 6-8 WEEKS 15,000-200,000 8-12 WEEKS 10,000-100,000 Performed By: #### 2 026893 ####[facility] [address] [place] [address] Progesteroneon 10-03-2019 Progesterone [Mass/Vol] 7.80 ng/mL [facility] Comment on above: Result Comment: REFE RENCE RANGE Males 0.14-2.06 ng/mL Non- Females Follicular 0.10-0.60 ng/mL Luteal 3.00-17.5 ng/mL Midluteal 3.30-18.6 ng/mL Post-Menopausal 0.10-0.40 ng/mL First Trimester 8.30-66.5 ng/mL Second Trimester 18.9-66.1 ng/mL Third Trimester 35.8-312.4 ng/mL Performed By: #### 2 074843, 7319107, 35596221, 7020080 ####[facility] [address] [place] [address] TSHon 10-03-2019 TSH Qn 0.84 mcIU/mL Normal 0.34-5.60 [facility] Comment on above: Performed By: #### 2 866194, 1653439, 91699446, 8535186 ####[facility] [address] [place] [address] Coding Summary.on 09-28-2019 Coding Summary. CODING DATE: 019 [facility] STATUS: Home (Routine DC) PAYOR: Commercial [...] Chau Date Saved: 09/28/2019 01:08 pm Normal [facility] BhCG Quanton 09-27-2019 HCG.beta subunit Qn 579 m[IU]/mL High 1-3 [facility] Comment on above: Result Comment: GEST ATIONAL AGE HCG RANGE (mIU/mL) NON- <1-3 0.2-1 WEEKS 5-50 1-2 WEEKS 50-500 2-3 WEEKS 100-5,000 3-4 WEEKS 500-10,000 4-5 WEEKS 1,000-50,000 5-6 WEEKS 10,000-100,000 6-8 WEEKS 15,000-200,000 8-12 WEEKS 10,000-100,000 Performed By: #### 2 748568 ####[facility] [address] [place] [address] External Lab Vitamin B6on Vitamin B6 4.4 [facility] Vitamin Aon 09-20-2019 Vitamin A 75.2 [facility] Vitamin B1on 09-20-2019 Thiamine (Vitamin B1) 116.7 [facility] Zincon 09-20-2019 Zinc 97 [facility] Coding Summary.on 09-18-2019 Coding Summary. CODING DATE: 019 [facility] STATUS: Home (Routine DC) PAYOR: Commercial [...] CphT Date Saved: 09/18/2019 01:21 pm Normal [facility] EXT LAB FERRITINon 9 Ferritin [Mass/Vol] 55 ng/mL [facility] External Lab Ironon 09-18-20 19 Iron [Mass/Vol] 89 ug/dL mcg/mL [facility] h External Lab Vitamin D, 25-O [place] 09-18-2019 Vitamin D, 25-OH 43.9 [facility] External Vitamin B12 and Fol ateon 09-18-2019 Cobalamin (Vitamin B12) [Mass/Vol] 291 pg/mL [facility] Folate 22.3 ng/mL Off scale high [facility] Interpretation and review of laboratory results Abnormal [facility] Vit Aon 09-18-2019 Retinol [Mass/Vol] 75.2 microgram/dL High 18.9-57.3 [facility] Comment on above: Result Comment: Refe [...] the Food and Drug Administration. Performed at: [address] [id number] MD Keegan Limon Performed By: #### 2 632763, 0266248, 9448990, 8312126, [id number], 83156044, 91691903, 40562678, 01481482 ####[facility] [address] [place] [address] Vit B1on 09-18-2019 Thiamine (Bld) [Moles/Vol] 116.7 nmol/L 66.5-200.0 [facility] Comment on above: Result Comment: This test was developed and its performance characteristics determined by [employer]. It has not been cleared or approved by the Food and Drug Administration. Performed at: [address] [id number] MD Keegan Limon Performed By: #### 2 946090, 2173536, 6313648, 9399901, 248603170, 26888240, 69197423, 66215153, 71029666 ####[facility] [address] [place] [address] Vitamin B6on 09-18-2019 Pyridoxine [Mass/Vol] 4.4 microgram/L 2.0-32.8 [facility] Comment on above: Result Comment: This test was developed and its performance characteristics determined by [facility]. It has not been cleared or approved by the Food and Drug Administration. Performed at: [address] [id number] MD Keegan Limon Performed By: #### 2 945705, 1596510, 9528873, 3685769, 377806406, 69424019, 53307905, 93506011, 63745506 ####[facility] [address] [place] [address] Zinc Lvlon 09-18-2019 Zinc [Mass/Vol] 97 microgram/dL 56-134 [facility] Comment on above: Result Comment: This test was developed and its performance characteristics determined by [facility]. It has not been cleared or approved by the Food and Drug Administration. Detection Limit = 5 Performed at: [facility] [id number] MD Keegan Limon Performed By: #### 2 387145, 6446427, 9556286, 0707070, 137419449, 72358006, 88838620, 50227004, 77484680 ####[facility] [address] [place] [address] Coding Summary.on 09-15-2019 Coding Summary. CODING DATE: 019 FINAL [facility] STATUS: Home (Routine DC) PAYOR: [...] CphT Date Saved: 09/15/2019 02:01 pm Normal [facility] Estradiolon 09-14-2019 E2 [Mass/Vol] 929.6 pg/mL [facility] Comment on above: Result Comment: Adul t Female: Follicular phase 12.5 - 166.0 Ovulation phase 85.8 - 498.0 Luteal phase 43.8 - 211.0 Postmenopausal <6.0 - 54.7 1st trimester 215.0 - >4300.0 Girls (1-10 years) 6.0 - 27.0 Mal ECLIA methodology Performed at: [facility] [id number] PhD Subhash Coronel Performed By: #### 2 593302, 9920886 ####[facility] [address] [place] [address] BhCG Quanton 09-13-2019 HCG.beta subunit Qn 132 m[IU]/mL High 1-3 [facility] Comment on above: Result Comment: GEST ATIONAL AGE HCG RANGE (mIU/mL) NON- <1-3 0.2-1 WEEKS 5-50 1-2 WEEKS 50-500 2-3 WEEKS 100-5,000 3-4 WEEKS 500-10,000 4-5 WEEKS 1,000-50,000 5-6 WEEKS 10,000-100,000 6-8 WEEKS 15,000-200,000 8-12 WEEKS 10,000-100,000 Performed By: #### 1 9449965, 2286659, 4918770, 0036535, 6890180, 9132354, 94953208, 6307688 #### [facility] [address] [place] [address] Ferritinon 09-13-2019 Ferritin [Mass/Vol] 55 ng/mL Normal 11-307 [facility] Comment on above: Result Comment: NORM ALS MEN <30 YRS 16-132 ng/mL MEN >30 YRS 8-338 ng/mL WOMEN (PREMEN) 6-104 ng/mL WOMEN (POSTMEN) 12-210 ng/mL Performed By: #### 1 9367621, 4987991, 8337362, 9487657, 0418554, 5833933, 01587916, 7185093 #### [facility] [address] [place] [address] Folateon 09-13-2019 Folate [Mass/Vol] ng/mL Normal >=6.7 [facility] Comment on above: Performed By: #### 1 3288131, 7047062, 7664699, 6553035, 2578443, 5397844, 38397737, 0840218 #### [facility] [address] [place] [address] Ironon 09-13-2019 Iron [Mass/Vol] 89 microgram/dL Normal 35-153 [facility] Comment on above: Performed By: #### 1 8023340, 4667579, 9404069, 6314654, 4013082, 0983296, 57872696, 4916916 #### [facility] [address] [place] [address] Progesteroneon 09-13-2019 Progesterone [Mass/Vol] 29.00 ng/mL [facility] Comment on above: Result Comment: REFE RENCE RANGE Males 0.14-2.06 ng/mL Non- Females Follicular 0.10-0.60 ng/mL Luteal 3.00-17.5 ng/mL Midluteal 3.30-18.6 ng/mL Post-Menopausal 0.10-0.40 ng/mL First Trimester 8.30-66.5 ng/mL Second Trimester 18.9-66.1 ng/mL Third Trimester 35.8-312.4 ng/mL Performed By: #### 2 552035, 4814970 ####[facility] [address] [place] [address] Vit B12on 09-13-2019 Cobalamin (Vitamin B12) [Mass/Vol] 291 pg/mL Normal 50-1500 [facility] Comment on above: Performed By: #### 2 391297, 3280456, 9166872, 6296418, 398785720, 75923767, 94257244, 50223428, 89579260 ####[facility] [address] [place] [address] Vitamin D 25 Hydroxyon 09-13 Calcidiol [Mass/Vol] 43.9 ng/mL Normal 30.0-100.0 [facility] Comment on above: Result Comment: Vit hutchinson D deficiency has been defined as a level of serum 25-OH vitamin D less than 20 ng/mL (1,2) by the [place] of [employer] and an Endocrine Society practice guideline. The Endocrine Society further defined vitamin D insufficiency as a level between 21 and 29 ng/mL (2). 1. IOM ([place] of Medicine). 2010. Dietary reference intakes for calcium and D. [place]: The National Academies Press. 2. Isaías MF, Renay NC, Foreign HUERTA, et al. Evaluation, treatment, and prevention of vitamin D deficiency: an Endocrine Society clinical practice guideline. JCEM. 2010; 96 (7):1911-30. Performed By: #### 2 669778, 4743546, 2254779, 5909682, 290760869, 73942698, 52146742, 53136944, 54454970 ####[facility] [address] [place] [address] Coding Summary.on 09-12-2019 Coding Summary. CODING DATE: 019 [facility] STATUS: Home (Routine DC) PAYOR: Commercial [...] CphT Date Saved: 09/12/2019 07:36 am Normal [facility] Estradiolon 09-12-2019 E2 [Mass/Vol] 1006.0 pg/mL [facility] Comment on above: Result Comment: Adul t Female: Follicular phase 12.5 - 166.0 Ovulation phase 85.8 - 498.0 Luteal phase 43.8 - 211.0 Postmenopausal <6.0 - 54.7 1st trimester 215.0 - >4300.0 Girls (1-10 years) 6.0 - 27.0 Mal ECLIA methodology Performed at: [facility] [address] [id number] PhD Subhash Coronel Performed By: #### 1 4116541, 9870007, 7084618, 6044868, 8318528, 8301225, 35439087, 8062603 #### [facility] [address] [place] [address] [facility] Quanton 09-11-2019 HCG.beta subunit Qn 121 m[IU]/mL High 1-3 [facility] Comment on above: Result Comment: GEST ATIONAL AGE HCG RANGE (mIU/mL) NON- <1-3 0.2-1 WEEKS 5-50 1-2 WEEKS 50-500 2-3 WEEKS 100-5,000 3-4 WEEKS 500-10,000 4-5 WEEKS 1,000-50,000 5-6 WEEKS 10,000-100,000 6-8 WEEKS 15,000-200,000 8-12 WEEKS 10,000-100,000 Performed By: #### 1 2163700, 4855277, 3054216, 3753480, 1924703, 6177038, 80483418, 6714106 #### [facility] [address] [place] [address] Progesteroneon 09-11-2019 Progesterone [Mass/Vol] 26.60 ng/mL [facility] Comment on above: Result Comment: REFE RENCE RANGE Males 0.14-2.06 ng/mL Non- Females Follicular 0.10-0.60 ng/mL Luteal 3.00-17.5 ng/mL Midluteal 3.30-18.6 ng/mL Post-Menopausal 0.10-0.40 ng/mL First Trimester 8.30-66.5 ng/mL Second Trimester 18.9-66.1 ng/mL Third Trimester 35.8-312.4 ng/mL Performed By: #### 1 5753311, 8123338, 5193753, 0249004, 4276249, 2000771, 14675744, 4428469 #### [facility] [address] [place] [address] TSHon 09-11-2019 TSH Qn 0.88 mcIU/mL Normal 0.34-5.60 [facility] Comment on above: Performed By: #### 1 9479273, 9790900, 9028647, 7479359, 9639708, 9149409, 10789200, 0259598 #### [facility] [address] [place] [address] Coding Summary.on 09-10-2019 Coding Summary. CODING DATE: 019 FINAL [facility] STATUS: Home (Routine DC) PAYOR: [...] Putnam Date Saved: 09/10/2019 02:11 pm Normal [facility] Lipase Levelon 09-08-2019 Lipase [Catalytic activity/Vol] U/L High 13-58 [facility] Comment on above: Result Comment: conf irmed by dilution Performed By: #### 1 9028683, 5435475, 2903253, 1382757, 2718532, 2639201, 35996594, 6320935 #### [facility] [address] [place] [address] BhCG Quanton 09-07-2019 HCG.beta subunit Qn 90 m[IU]/mL High 1-3 [facility] Comment on above: Result Comment: GEST ATIONAL AGE HCG RANGE (mIU/mL) NON- <1-3 0.2-1 WEEKS 5-50 1-2 WEEKS 50-500 2-3 WEEKS 100-5,000 3-4 WEEKS 500-10,000 4-5 WEEKS 1,000-50,000 5-6 WEEKS 10,000-100,000 6-8 WEEKS 15,000-200,000 8-12 WEEKS 10,000-100,000 Performed By: #### 1 4490492, 3884614, 3941553, 4669753, 0961847, 0423871, 49217395, 6337286 #### [facility] [address] [place] [address] Progesteroneon 09-07-2019 Progesterone [Mass/Vol] 23.40 ng/mL [facility] Comment on above: Result Comment: REFE RENCE RANGE Males 0.14-2.06 ng/mL Non- Females Follicular 0.10-0.60 ng/mL Luteal 3.00-17.5 ng/mL Midluteal 3.30-18.6 ng/mL Post-Menopausal 0.10-0.40 ng/mL First Trimester 8.30-66.5 ng/mL Second Trimester 18.9-66.1 ng/mL Third Trimester 35.8-312.4 ng/mL Performed By: #### 1 6378228, 0041209, 4797854, 3506079, 3250500, 0011769, 95889000, 5570461 #### [facility] [address] [place] [address] Coding Summary.on 09-05-2019 Coding Summary. CODING DATE: 019 [facility] STATUS: Home (Routine DC) PAYOR: Commercial [...] CphT Date Saved: 09/05/2019 01:07 pm Normal [facility] Estradiolon 09-05-2019 E2 [Mass/Vol] 799.5 pg/mL [facility] Comment on above: Result Comment: Adul t Female: Follicular phase 12.5 - 166.0 Ovulation phase 85.8 - 498.0 Luteal phase 43.8 - 211.0 Postmenopausal <6.0 - 54.7 1st trimester 215.0 - >4300.0 Girls (1-10 years) 6.0 - 27.0 Mal ECLIA methodology Performed at: [facility] [id number] PhD Subhash Coronel Performed By: #### 1 8815453, 2348713, 2115163, 8760917, 3778591, 1177870, 14252744, 3638315 #### [facility] [address] [place] [address] Progesteroneon 09-04-2019 Progesterone [Mass/Vol] 39.30 ng/mL [facility] Comment on above: Result Comment: REFE RENCE RANGE Males 0.14-2.06 ng/mL Non- Females Follicular 0.10-0.60 ng/mL Luteal 3.00-17.5 ng/mL Midluteal 3.30-18.6 ng/mL Post-Menopausal 0.10-0.40 ng/mL First Trimester 8.30-66.5 ng/mL Second Trimester 18.9-66.1 ng/mL Third Trimester 35.8-312.4 ng/mL Performed By: #### 1 2069161, 5229121, 6355320, 7645132, 2564317, 9835505, 04227801, 5978156 #### [facility] [address] [place] [address] TSHon 09-04-2019 TSH Qn 0.83 mcIU/mL Normal 0.34-5.60 [facility] Comment on above: Performed By: #### 1 7808533, 3973765, 9900354, 1953134, 8624728, 6654779, 14360978, 6414435 #### [facility] [address] [place] [address] Coding Summary.on 08-23-2019 Coding Summary. CODING DATE: 019 FINAL [facility] STATUS: Home (Routine DC) PAYOR: [...] CphT Date Saved: 08/23/2019 01:15 pm Normal [facility] Estradiolon 08-23-2019 E2 [Mass/Vol] 903.5 pg/mL [facility] Comment on above: Result Comment: Adul t Female: Follicular phase 12.5 - 166.0 Ovulation phase 85.8 - 498.0 Luteal phase 43.8 - 211.0 Postmenopausal <6.0 - 54.7 1st trimester 215.0 - >4300.0 Girls (1-10 years) 6.0 - 27.0 Mal ECLIA methodology Performed at: [facility] [id number] PhD Subhash Coronel Performed By: #### 1 2785687, 3704814, 8780947, 6086765, 3306444, 5115642, 73340685, 5119533 #### [facility] [address] [place] [address] LHon 08-23-2019 Lutropin Qn 7.7 m[IU]/mL [facility] Comment on above: Result Comment: Adul t Female: Follicular phase 2.4 - 12.6 Ovulation phase 14.0 - 95.6 Luteal phase 1.0 - 11.4 Postmenopausal 7.7 - 58.5 Performed at: [facility] [id number] PhD Subhash Coronel Performed By: #### 1 9850043, 4337045, 7240386, 1639657, 3257084, 2347380, 17444320, 3491407 #### [facility] [address] [place] [address] Progesteroneon 08-22-2019 Progesterone [Mass/Vol] ng/mL [facility] Comment on above: Result Comment: REFE RENCE RANGE Males 0.14-2.06 ng/mL Non- Females Follicular 0.10-0.60 ng/mL Luteal 3.00-17.5 ng/mL Midluteal 3.30-18.6 ng/mL Post-Menopausal 0.10-0.40 ng/mL First Trimester 8.30-66.5 ng/mL Second Trimester 18.9-66.1 ng/mL Third Trimester 35.8-312.4 ng/mL Performed By: #### 1 4291931, 3224968, 1846802, 1167384, 9928313, 7009142, 29228584, 8544360 #### [facility] [address] [place] [address] Coding Summary.on 08-16-2019 Coding Summary. CODING DATE: 019 FINAL [facility] STATUS: Home (Routine DC) PAYOR: [...] SantiagoTeri Date Saved: 08/16/2019 02:00 pm Normal [facility] Estradiolon 08-16-2019 E2 [Mass/Vol] 52.3 pg/mL [facility] Comment on above: Result Comment: Adul t Female: Follicular phase 12.5 - 166.0 Ovulation phase 85.8 - 498.0 Luteal phase 43.8 - 211.0 Postmenopausal <6.0 - 54.7 1st trimester 215.0 - >4300.0 Girls (1-10 years) 6.0 - 27.0 Mal ECLIA methodology Performed at: [address] [id number] PhD Subhash Coronel Performed By: #### 1 8171057, 6755287, 4951268, 7631129, 3875357, 3578818, 47670504, 5557733 #### [facility] [address] [place] [address] FSH and LHon 08-16-2019 Follitropin Qn 7.9 m[IU]/mL [facility] Comment on above: Result Comment: [facility] t Female: Follicular phase 3.5 - 12.5 Ovulation phase 4.7 - 21.5 Luteal phase 1.7 - 7.7 Postmenopausal 25.8 - 134.8 Performed at: [address] [id number] PhD Subhash Coronel Performed By: #### 1 3989936, 6809005, 2093444, 7316653, 8711694, 7118649, 07353101, 8282399 #### [facility] [address] [place] [address] Lutropin Qn 9.8 m[IU]/mL [facility] Comment on above: Result Comment: [facility] t Female: Follicular phase 2.4 - 12.6 Ovulation phase 14.0 - 95.6 Luteal phase 1.0 - 11.4 Postmenopausal 7.7 - 58.5 Performed By: #### 1 0483212, 9638583, 8815020, 4364905, 9562370, 7924253, 75811514, 7127824 #### [facility] [address] [place] [address] BhCG Quanton 08-15-2019 HCG.beta subunit Qn m[IU]/mL Normal 1-3 [facility] Comment on above: Result Comment: GEST ATIONAL AGE HCG RANGE (mIU/mL) NON- <1-3 0.2-1 WEEKS 5-50 1-2 WEEKS 50-500 2-3 WEEKS 100-5,000 3-4 WEEKS 500-10,000 4-5 WEEKS 1,000-50,000 5-6 WEEKS 10,000-100,000 6-8 WEEKS 15,000-200,000 8-12 WEEKS 10,000-100,000 Performed By: #### 1 3011987, 7277482, 4633494, 4605062, 7969325, 7848442, 40252131, 9160058 #### [facility] [address] [place] [address] Progesteroneon 08-15-2019 Progesterone [Mass/Vol] 0.20 ng/mL [facility] Comment on above: Result Comment: REFE RENCE RANGE Males 0.14-2.06 ng/mL Non- Females Follicular 0.10-0.60 ng/mL Luteal 3.00-17.5 ng/mL Midluteal 3.30-18.6 ng/mL Post-Menopausal 0.10-0.40 ng/mL First Trimester 8.30-66.5 ng/mL Second Trimester 18.9-66.1 ng/mL Third Trimester 35.8-312.4 ng/mL Performed By: #### 1 3370150, 0584318, 9227937, 1368723, 3872011, 0529548, 70431088, 4321386 #### [facility] [address] [place] [address] TSHon 08-15-2019 TSH Qn 1.05 mcIU/mL Normal 0.34-5.60 [facility] Comment on above: Performed By: #### 1 6091749, 2640426, 6907827, 0893772, 1999581, 2029652, 97834666, 7498465 #### [facility] [address] [place] [address] Coding Summary.on 07-31-2019 Coding Summary. 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 However, the narrative phrase printed from the coding software may appear abbreviated, or result in slightly different terminology. Coded By: Teri Hill CphT Date Saved: 07/31/2019 10:30 am Normal [facility] ED Note-Physicianon 07-28-20 ED Note-Physician Basic Information Time Seen: Oswaldo Fischer PA-C 07/17/2019 21:52 Chief Complaint pt has complaints of abdominal pain nausea and vomiting since 2am, states lab work done at [facility] today liver enzymes were elevated history of [...] Bergeron discussed with Dr. Goel, trauma surgeon ip litigation associate, and Dr. Alvarado, hospitalist ip litigation associate, about patient, history, labs, and imaging findings consistent acute pancreatitis and common bile duct obstruction, patient be admitted to hospitalist services, and consult with Dr. Reddy, GI doctor on-call for possible DECKHAND OYSTER DREDGE in the morning. Dr. Alvarado admitted patient [...] was treated and evaluated by the Physician Head Track Coach. The attending physician was Dr. Bergeron in [...] Auto: 6.4 % Low (07/17/19 22:12:00 EDT) [place] Auto: 5.5 % (07/17/19 22:12:00 EDT) Eos Auto: 0.6 % (07/17/19 22:12:00 EDT) Basophil Auto: 0.3 % (07/17/19 22:12:00 EDT) Neutro Absolute: 11.3 E9/L High (07/17/19 22:12:00 EDT) Lymph Absolute: 0.8 E9/L Low (07/17/19 22:12:00 EDT) [place] Absolute: 0.7 E9/L (07/17/19 22:12:00 EDT) Eos [...] Diagnostic Results No qualifying data available. Normal [facility] Comment on above: Result Comment: Elec tronically Signed By: Oswaldo Fischer PA-C\.br\Date and Time Signed: 07/18/19 01:07 EDT\.br\Electronically Co-Signed By: Mehran Bergeron MD\.br\Date and Time Co-Signed: 07/28/19 08:12 EDT Progress Note-Physicianon Progress Note-Physician Chief Complaint Follow up from OR History of Present Illness SUKHDEV SCHWARTZ is a 33 Years Female who presented to [facility] on 07/18/2019 with gallstone pancreatitis. 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 Still waiting for [facility] paperwork which she'll fax to us. Review [...] a 33 Years Female who presented to [facility] on 07/18/2019 with gallstone pancreatitis and is now POD#9 s/p lap aidee. She is recovering well. She can keep covering the periumbilical incision with Bandaid until it heals. I reviewed path report with her. She can follow-up with us PRN. We will fill out [facility] paperwork for her when we receive it. [...] REACTIVE LYMPH NODE WITH FOLLICULAR HYPERPLASIA. Normal [facility] Comment on above: Result Comment: Elec tronically Signed By: Garrett GUSTAFSON, Marina Fields\.br\Date and Time Signed: 07/28/19 09:13 EDT Coding Summary.on 07-24-2019 Coding Summary. CODING DATE: 019 FINAL [facility] STATUS: Home (Routine DC) PAYOR: Commercial Insurance Grouper: 419 MS-DRG Laparoscopic cholecystectomy w/o c.d.e. w/o CC/RETIREMENT Low Trim 0 High Trim 999 263 [...] (BMI) 34.0-34.9, adult PROCEDURES DOCTOR NAME DATE [id number] Resection of Gallbladder, Amando GUSTAFSON, Javan Stevens 07/19/2019 Percutaneous Endoscopic Approach [id number] Extirpation of Matter from Abhinav REDDY MD 07/18/2019 Common Bile Duct, Via Natural or Artificial Opening Endoscopic [id number] Fluoroscopy of Bile Ducts using Abhinav REDDY MD 07/18/2019 Low Osmolar Contrast NOTE: The code number assigned matches the documented diagnosis and / or procedure in the patient's chart. However, the narrative phrase printed from the coding software may appear abbreviated, or result in slightly different terminology. Revised Coded By: Kat Del Rosario Revised Date Saved: 07/24/2019 07:27 am Normal [facility] Progress Note-Physicianon Progress Note-Physician Patient: SUKHDEV [...] All Problems Ovarian dysfunction / SNOMED CT 19940422 / Confirmed Hypothyroidism / SNOMED CT 64795029 / Confirmed Pancreatitis / SNOMED CT 407630694 / Confirmed Histories Past Medical History: No [...] Cardiovascular: Regular rhythm. Neurologic: Alert, Oriented. Plan [place] [employer] Anesthesiologists (ASA) physical status classification: Class II. Anesthetic Preoperative Plan Anesthesia: General. . Anesthetic plan, risks, benefits, and alternatives discussed with the patient and/or family. Communication: face to face with (patient 5 minutes, Patient educated on smoking cesstation). Normal [facility] Comment on above: Result Comment: Elec [...] then closed the umbilical fascia with multiple zocboj-gn-czome 0 Vicryl sutures, then tied the stay [...] Gallbladder Javan Goel MD aek Dictated: 07/19/2019 #[id number] Typed: 07/20/2019 #[id number] cc: Javan Goel MD Normal [facility] Comment on above: Result Comment: Elec tronically Signed By: Amando GUSTAFSON, Javan Stevens\.br\Date and Time Signed: 07/20/19 11:04 EDT Auto Diffon 07-19-2019 Basophils/100 WBC (Bld) 0.2 % Normal 0.0-2.0 [facility] Comment on above: Order Comment: Order Added by Discern Expert. Performed By: #### 1 6917245, 0306242, 4717859, 0576446, 0608271, 8814323, 03958226, 5778946 #### [facility] [address] [place] [address] Basophils/Leukocyte s Auto (Bld) [Pure # fraction] 0.0 E9/L Normal 0.0-0.2 [facility] Comment on above: Order Comment: Order Added by Discern Expert. Performed By: #### 1 4881401, 5948952, 0875446, 9668378, 1671909, 6435765, 63206295, 2641731 #### [facility] [address] [place] [address] Eosinophils/100 WBC (Bld) 1.1 % Normal 0.0-8.0 [facility] Comment on above: Order Comment: Order Added by Discern Expert. Performed By: #### 1 3393847, 6807503, 6840212, 6913383, 8123432, 1929924, 07644447, 0030637 #### [facility] [address] [place] [address] Eosinophils/Leukocy dariel Auto (Bld) [Pure # fraction] 0.1 E9/L Normal 0.0-0.5 [facility] Comment on above: Order Comment: Order Added by Discern Expert. Performed By: #### 1 8158344, 3182856, 5802318, 3224280, 3147272, 0835094, 38271405, 7892406 #### [facility] [address] [place] [address] Lymphocytes/100 WBC (Bld) 11.9 % Low 14.0-50.0 [facility] Comment on above: Order Comment: Order Added by Discern Expert. Performed By: #### 1 8501353, 0509168, 6801513, 4641902, 7140612, 7076385, 37242198, 9667505 #### [facility] [address] [place] [address] Lymphocytes/Leukocy dariel Auto (Bld) [Pure # fraction] 1.1 E9/L Normal 1.0-4.0 [facility] Comment on above: Order Comment: Order Added by Discern Expert. Performed By: #### 1 5791589, 5471721, 1487541, 9219532, 3836695, 1908250, 46334369, 6933161 #### [facility] [address] [place] [address] Monocytes/100 WBC (Bld) 5.8 % Normal 4.0-14.0 [facility] Comment on above: Order Comment: Order Added by Discern Expert. Performed By: #### 1 1138375, 1384746, 3717774, 9728010, 0676872, 3720375, 75939568, 3018970 #### [facility] [address] [place] [address] Monocytes/Leukocyte s Auto (Bld) [Pure # fraction] 0.5 E9/L Normal 0.2-1.0 [facility] Comment on above: Order Comment: Order Added by Discern Expert. Performed By: #### 1 0634022, 2324188, 3009385, 4543977, 9697551, 3852796, 94760100, 5456164 #### [facility] [address] [place] [address] Neutrophils/100 WBC (Bld) 81.0 % High 36.0-75.0 [facility] Comment on above: Order Comment: Order Added by Discern Expert. Performed By: #### 1 0768982, 9562512, 3105021, 3364018, 4876841, 7759380, 82211897, 8715525 #### [facility] [address] [place] [address] Neutrophils/Leukocy dariel Auto (Bld) [Pure # fraction] 7.3 E9/L Normal 2.0-7.5 [facility] Comment on above: Order Comment: Order Added by Discern Expert. Performed By: #### 1 6445417, 0256121, 4845800, 3800177, 1800146, 9668667, 55019060, 6177375 #### [facility] [address] [place] [address] CBC w/ Auto Diffon Erythrocyte distribution width (RBC) [Ratio] 13.6 % Normal 10.9-14.2 [facility] Comment on above: Performed By: #### 1 5338585, 1546756, 8905473, 2143890, 9756623, 2744794, 12272390, 1916226 #### [facility] [address] [place] [address] Hematocrit (Bld) [Volume fraction] 30.5 % Low 34.0-46.0 [facility] Comment on above: Performed By: #### 1 5727707, 3267609, 5416015, 5684727, 2776259, 8683300, 74891097, 5475469 #### [facility] [address] [place] [address]473 Hemoglobin (Bld) [Mass/Vol] 10.8 g/dL Low 12.0-16.0 [facility] Comment on above: Performed By: #### 1 0106461, 5999859, 2110181, 1871519, 1564321, 7394442, 62995233, 0098492 #### [facility] [address] [place] [address] MCH (RBC) [Entitic mass] 31.4 pg Normal 27.0-34.0 [facility] Comment on above: Performed By: #### 1 1884284, 5768011, 8106345, 6373722, 7065575, 7515640, 29827537, 4330512 #### [facility] [address] [place], [place] [address] MCHC (RBC) [Mass/Vol] 35.2 g/dL Normal 33.3-35.7 [facility] Comment on above: Performed By: #### 1 8504094, 8822911, 5951454, 6172897, 9699857, 6225934, 71809242, 0516528 #### [facility] [address] [place] [address] MCV (RBC) [Entitic vol] 89.0 fL Normal 80.0-100.0 [facility] Comment on above: Performed By: #### 1 6759920, 2859723, 3836489, 6916007, 1115369, 7878722, 04865485, 5874685 #### [facility] [address] [place] [address] Platelet mean volume (Bld) [Entitic vol] 7.4 fL Normal 6.4-10.8 [facility] Comment on above: Performed By: #### 1 1994782, 4130290, 2641890, 3048531, 5391737, 3182927, 05478347, 3002332 #### [facility] [address] [place] [address] Platelets (Bld) [#/Vol] 206.0 E9/L Normal 150.0-500.0 [facility] Comment on above: Performed By: #### 1 8416654, 2406754, 9409873, 7228693, 9607890, 5871270, 05151005, 9868571 #### [facility] [address] [place], [place] [address] RBC (Bld) [#/Vol] 3.4 E12/L Low 4.3-5.9 [facility] Comment on above: Performed By: #### 1 0501884, 1688877, 7577883, 2117825, 6149110, 9892357, 47118654, 5739804 #### [facility] [address] [place] [address] WBC corrected for nucl RBC Auto (Bld) [#/Vol] 9.0 E9/L Normal 4.0-11.0 [facility] Comment on above: Performed By: #### 1 9396099, 2007958, 1374344, 3264252, 8689164, 2953969, 33003328, 8663472 #### [facility] [address] [place] [address] CMPon 07-19-2019 Albumin [Mass/Vol] 3.1 g/dL Low 3.3-5.0 [facility] Comment on above: Performed By: #### 1 2793837, 4986054, 0645536, 4044223, 2008739, 4543991, 43682957, 6079637 #### [facility] [address] [place], [place] [address] Albumin [Mass/Vol] 1.3 g/dL Normal 1.1-2.2 [facility] Comment on above: Performed By: #### 1 6627016, 2212167, 8478229, 1931691, 8830932, 8976140, 65881903, 0292657 #### [facility] [address] [place] [address] 24630 ALP [Catalytic activity/Vol] 64 Int._Unit/L Normal 21-98 [facility] Comment on above: Performed By: #### 1 8489151, 7479193, 4748086, 5546712, 6890547, 0908155, 55436132, 2625097 #### [facility] [address] [place] [address] 64882 ALT No additional P-5'-P [Catalytic activity/Vol] 77 Int._Unit/L High 6-46 [facility] Comment on above: Performed By: #### 1 9327481, 8590212, 8689557, 7819373, 5928856, 9020865, 74338312, 8320595 #### [facility] [address] [place] [address] AST [Catalytic activity/Vol] 32 Int._Unit/L Normal 5-43 [facility] Comment on above: Performed By: #### 1 4285485, 7640288, 9400297, 8491578, 1699370, 1380902, 36048609, 7440441 #### [facility] [address] [place] [address] Bilirubin [Mass/Vol] 1.2 mg/dL High 0.0-1.1 [facility] Comment on above: Performed By: #### 1 1135478, 5830657, 1339661, 7920683, 9836068, 3576766, 70403186, 4661345 #### [facility] [address] [place] [address] Creatinine [Mass/Vol] 0.6 mg/dL Normal 0.5-1.3 [facility] Comment on above: Performed By: #### 1 5558012, 3434555, 3822556, 9339666, 3794923, 9599352, 11558361, 2741287 #### [facility] [address] [place] [address] Globulin (S) [Mass/Vol] 2.4 g/dL Normal 1.4-4.0 [facility] Comment on above: Performed By: #### 1 2485602, 1200572, 2666388, 6862589, 4051061, 6619587, 55696455, 5685224 #### [facility] [address] [place] [address] Protein [Mass/Vol] 5.5 g/dL Low 6.0-7.8 [facility] Comment on above: Performed By: #### 1 3233256, 4586370, 9980708, 5001183, 2146320, 3178919, 64960991, 3230116 #### [facility] [address] [place] [address] Urea nitrogen [Mass/Vol] 10 mg/dL Normal 5-21 [facility] Comment on above: Performed By: #### 1 5744936, 2600628, 5240004, 0680859, 0767700, 5254008, 62360409, 7028161 #### [facility] [address] [place] [address] Urea nitrogen/Creatinine [Mass ratio] 17 No Units Normal 10-20 [facility] Comment on above: Performed By: #### 1 2694219, 0462666, 3174649, 9802470, 0602672, 3176232, 23747183, 6176777 #### [facility] [address] [place] [address] Anion gap [Moles/Vol] 12 mmol/L Normal 6-16 [facility] Comment on above: Performed By: #### 1 6726047, 3603625, 2828292, 3389084, 0437733, 2190734, 52576324, 3983215 #### [facility] [address] [place] [address] Calcium [Mass/Vol] 8.5 mg/dL Low 8.9-11.1 [facility] Comment on above: Performed By: #### 1 7337191, 4967633, 0006383, 3012561, 6709801, 0145194, 99672512, 3505629 #### [facility] [address] [place] [address] Chloride [Moles/Vol] 109 mmol/L Normal 101-111 [facility] Comment on above: Performed By: #### 1 1285075, 8297822, 1298912, 7558472, 0934836, 6538152, 72210690, 9988336 #### [facility] [address] [place] [address] CO2 [Moles/Vol] 22 mmol/L Normal 21-31 [facility] Comment on above: Performed By: #### 1 3138711, 1451880, 7562670, 4440226, 9050422, 9511109, 06604971, 2547352 #### [facility] [address] [place] [address] Glucose [Mass/Vol] 99 mg/dL Normal 55-199 [facility] Comment on above: Result Comment: If t his glucose result represents a fasting glucose, interpretation should refer to the following reference range: 55-99 mg/dL Performed By: #### 1 8438338, 9571388, 3328238, 7842412, 2407042, 0115660, 09374546, 4613590 #### [facility] [address] [place] [address] Potassium [Moles/Vol] 3.7 mmol/L Normal 3.5-5.3 [facility] Comment on above: Performed By: #### 1 9295881, 6489034, 8406995, 5612165, 9400207, 3460208, 62464095, 3140842 #### [facility] [address] [place] [address] Sodium [Moles/Vol] 139 mmol/L Normal 135-145 [facility] Comment on above: Performed By: #### 1 9518584, 5239955, 0304791, 4918988, 2462261, 6236695, 01862655, 6212195 #### [facility] [address] [place] [address] Discharge Note-Nursingon Discharge Note-Nursing Pt taken to bead picker exit with belongings by wheelchair and discharged home with family per personal vehicle Normal [facility] Inpatient Clinical Summaryon 07-19-2019 Inpatient Clinical Summary [address] [address] Clinical Summary Person Information: Name: SUKHDEV SCHWARTZ Age: 33 Years : 1985 12:00 AM Sex: Female PCP: LOLI MATIAS MD Marital Status: Phone: [phone] Race: White Ethnicity: Non- or Language: Mongolian Visit Id: Visit Reason: Vomiting; Nausea; Abdominal pain; COMMON DUCT OBSTRUCTION, ACUTE PANCREATITIS Speciality: Acuity: Enc Type: Inpatient Med Service: Medical Arrival: 07/17/2019 8:55 PM Discharge: Dispo Type: Admitted as IP to this [facility] Address: [address] [place] [address] [address] [place] [place] [id number] Provider Notes: Diagnosis: 1:Acute gallstone pancreatitis; 2:Abnormal [...] Follow up: With: Address: When: J[facility], [address], [address] [address] [phone] Business (1) Within 7 to 10 days With: Address: When: [place] [id number] Business (1) 08/07/2019 7:30 AM Type Location Start [facility] Follow Up [facility] 09/12/2019 2:00 PM 09/12/2019 2:15 PM Confirmed Patient Education Information: Cholecystostomy Normal [facility] Inpatient Patient Summaryon 07-19-2019 Inpatient Patient Summary [address] [address] Patient Discharge Instructions PERSON INFORMATION Name: SUKHDEV [...] Follow up: With: Address: When: Javan Goel [address] [place] [address], [address], [address] [address] [phone] Business (1) Within 7 to 10 days With: Address: When: LOLI MATIAS [address] [place] [id number] Business (1) 08/07/2019 7:30 AM In the event that this physician does not participate in your insurance network, please consult with your insurance company to find a nearby participating provider. Type Location Start [facility] 09/12/2019 2:00 PM 09/12/2019 2:15 PM Confirmed Comment: JAMES Bain BRITTANY F, have received the attached patient education materials/instructions and have verbalized understanding: Patient Signature __ Date Clinican/Nurse Signature Date HERE ARE THE MEDICATION CHANGES THAT OCCURRED DURING YOUR HOSPITAL STAY New Medications [facility], [address] [place], [place] [id number], [phone] acetaminophen-hydrocodone (acetaminophen-hydrocodone 325 mg-5 mg oral tablet) [...] Mouth 2 times a day. Pharmacy Information: [facility] Comment: PATIENT EDUCATION INFORMATION Instructions: Cholecystostomy [...] Document Reviewed: 12/31/2009 ExitCare? Patient Information ?2014 Movable. This information is not intended to replace advice given to you by your health care provider. Make sure you discuss any questions you have with your health care provider. Medication Leaflets: Thank you for choosing [facility] Normal [facility] Interdisciplinary Note - Arcadio e Manageron 07-19-2019 INR Coag (Bld) [Relative time] Rounding with Dr. Benjamin, Felicia [facility], Rosie [facility], and Agustina GOODRICH with another patient . [...] will update family on dc plans. Normal [facility] Comment on above: Result Comment: Elec tronically Signed By: Andrzej GOODRICH, Felicia\.br\Date and Time Signed: 07/19/19 09:10 EDT Main OR Intraoperative Recor don 07-19-2019 Main OR Intraoperative Record IntraOp Document Type FT Summary Primary Physician: Javan Goel MD Finalized Date/Time: 07/19/19 14:22:14 Pt. Name: SUKHDEV SCHWARTZ D.O.B./Sex: 1985 Female Med Rec #: [id number] Physician: Aron ALVARADO DO Financial #: [id number] Pt. Type: I Room/Bed: 06 Admit/Disch: 07/17/19 [...] RN Role Performed Anesthesiologist Surgeon - Primary IC DESIGN ENGINEER Head Track Coach Time In 07/19/19 10:51:00 07/19/19 10:51:00 07/19/19 10:51:00 Time Out 07/19/19 13:18:00 07/19/19 12:56:00 07/19/19 13:18:00 Procedure CHOLECYSTECTOMY CHOLECYSTECTOMY CHOLECYSTECTOMY LAPAROSCOPIC W/ LAPAROSCOPIC W/ LAPAROSCOPIC W/ CHOLANGI(.) CHOLANGI(.) CHOLANGI(.) Comments DR GARVIN OUT FOR LUNCH FROM SUPERVISING.GERI 6099-4305 WANDER GRAY-OUT TO LUNCH FROM 2477-2733. Last Modified By: Luis Fernando RN, Tosha Gould RN, Tosha Stewart RN 07/19/19 13:22:30 07/19/19 13:22:30 07/19/19 13:22:30 Entry 4 Entry 5 Entry 6 Case Attendee Armaan VILLAGOMEZ, Mónica Gould RN, Tosha Wright RNRavi Role Performed Scrub - Primary Executive Relations Specialist - Primary Executive Relations Specialist - Relief Time In 07/19/19 10:51:00 07/19/19 10:51:00 07/19/19 11:04:00 Time Out 07/19/19 13:18:00 07/19/19 13:18:00 07/19/19 11:40:00 Procedure CHOLECYSTECTOMY CHOLECYSTECTOMY CHOLECYSTECTOMY LAPAROSCOPIC W/ LAPAROSCOPIC W/ LAPAROSCOPIC W/ CHOLANGI(.) CHOLANGI(.) CHOLANGI(.) Comments OUT FOR LUNCH FROM OUT TO LUNCH FROM [phone] 4512-1512 Last Modified By: Luis Fernando GOODRICH, Tosha Gould RN, Tosha Stewart RN 07/19/19 13:22:30 07/19/19 13:22:30 07/19/19 13:22:30 Entry 7 Entry 8 Entry 9 Case Attendee Adalid VILLAGOMEZ, Bert Vázquez AZURE PRINCIPAL SOLUTION SPECIALIST/SA, Tosha Wolf CST Performed AZURE PRINCIPAL SOLUTION SPECIALIST/SA Scrub - Relief Scrub - Other Time [...] tissue Entry 1 Skin Integrity Bruised, Intact, [place], Skin Abnormality Yes Warm, and Dry Abnormality [...] Type TUBE NASOGASTIC SUMP Location MOUTH 18FR [589477][F] Quantity 1 Inserted By Geri Guerrero Present [...] Present Upon Arrival No Inserted LF 16FR [[id number]][F] Insertion Date/Time 07/19/19 11:09:00 Urine Residual 350 [...] BLANKET MISTRAL AIR Quantity 1 Aid TORSO [[id number]][F] Fluid/[place] [facility] Mistral warming system Setting HIGH/43C Body Site Upper anterior torso Last Modified By: Tosha Gould RN 07/19/19 10:34:51 Case Comments Finalized By: Juanita Stein CST Document Signatures Signed By: Tosha Gould RN 07/19/19 13:23 Juanita Stein CST 07/19/19 14:22 Normal [facility] Main OR PACU I Recordon Main OR PACU I Record PACU Phase I Document Type FT Summary Primary Physician: Javan Goel MD Finalized Date/Time: 07/19/19 13:51:28 Pt. Name: SUKHDEV SCHWARTZ/Sex: 1985 Female Med Rec #: [id number] Physician: Aron ALVARADO DO Financial #: [id number] Pt. Type: I Room/Bed: [place] [address] Admit/Disch: 07/17/19 20:55:00 - Institution: Case Times [...] By: Mariama Cadena RN 07/19/19 13:51 Normal [facility] Main OR Preoperative Recordo n 07-19-2019 Main OR Preoperative Record PreOp Document Type FT Summary Primary Physician: Javan Goel MD Finalized Date/Time: 07/19/19 11:50:30 Pt. Name: SUKHDEV SCHWARTZ Antoni HoltB./Sex: 1985 Female Med Rec #: [id number] Physician: Aron ALVARADO DO Financial #: [id number] Pt. Type: I Room/Bed: [facility] Admit/Disch: 07/17/19 20:55:00 - Institution: [...] By: Tosha Gould RN 07/19/19 11:50 Normal [facility] Progress Note-Physicianon Progress Note-Physician ACUTE CARE [...] Auto: 11.9 % Low (07/19/19 05:39:00 EDT) [place] Auto: 5.8 % (07/19/19 05:39:00 EDT) Eos Auto: 1.1 % (07/19/19 05:39:00 EDT) Basophil Auto: 0.2 % (07/19/19 05:39:00 EDT) Neutro Absolute: 7.3 E9/L (07/19/19 05:39:00 EDT) Lymph Absolute: 1.1 E9/L (07/19/19 05:39:00 EDT) [place] Absolute: 0.5 E9/L (07/19/19 05:39:00 EDT) Eos [...] Goel MD Trauma/Critical Care/Acute Care Surgery Attending [facility] Comment on above: Result Comment: Elec tronically Signed By: Amando GUSTAFSON, Javan J\.br\Date and Time Signed: 07/19/19 10:32 EDT eGFRon 07-19-2019 GFR/1.73 sq M predicted among blacks MDRD (S/P/Bld) [Vol rate/Area] mL/min/{1.73_m2} Normal >=59 [facility] Comment on above: Order Comment: Order added by Discern Expert. Result Comment: eGFR is race adjusted. AA=. Performed By: #### 1 6354025, 5077398, 7420650, 7630211, 1308530, 1973139, 26236326, 2088803 #### [facility] [address] [place] [address] GFR/1.73 sq M predicted among non-blacks MDRD (S/P/Bld) [Vol rate/Area] mL/min/{1.73_m2} Normal >=59 [facility] Comment on above: Order Comment: Order added by Discern Expert. Result Comment: Warning Coordination Meteorologist ivan kidney disease could be indicated at eGFR's of less than 60 mL/min/1.73m2. Kidney failure is indicated at less than 15 mL/min/1.73m2. Performed By: #### 1 7679647, 5143865, 5315709, 8027143, 5057174, 4481285, 12517179, 2575644 #### [facility] [address] [place] [address] Auto Diffon 07-18-2019 Basophils/100 WBC (Bld) 0.4 % Normal 0.0-2.0 [facility] Comment on above: Order Comment: Order Added by Discern Expert. Performed By: #### 1 5035951, 9631013, 3675776, 6138095, 6703308, 5997367, 39509933, 9020806 #### [facility] [address] [place] [address] Basophils/Leukocyte s Auto (Bld) [Pure # fraction] 0.0 E9/L Normal 0.0-0.2 [facility] Comment on above: Order Comment: Order Added by Discern Expert. Performed By: #### 1 6127602, 3896313, 1598438, 8974574, 5612006, 5953332, 45828077, 0375013 #### [facility] [address] [place] [address] Eosinophils/100 WBC (Bld) 0.4 % Normal 0.0-8.0 [facility] Comment on above: Order Comment: Order Added by Discern Expert. Performed By: #### 1 9770894, 9388754, 3076407, 1180488, 9860854, 7386507, 59751814, 7498877 #### [facility] [address] [place] [address] Eosinophils/Leukocy dariel Auto (Bld) [Pure # fraction] 0.0 E9/L Normal 0.0-0.5 [facility] Comment on above: Order Comment: Order Added by Discern Expert. Performed By: #### 1 6166935, 6442181, 7867101, 6652473, 6519598, 3412666, 31044663, 8014442 #### [facility] [address] [place] [address] Lymphocytes/100 WBC (Bld) 19.3 % Normal 14.0-50.0 [facility] Comment on above: Order Comment: Order Added by Discern Expert. Performed By: #### 1 5149773, 3691501, 5379615, 0920300, 2724784, 5741306, 93410704, 9840297 #### [facility] [address] [place] [address] Lymphocytes/Leukocy dariel Auto (Bld) [Pure # fraction] 1.5 E9/L Normal 1.0-4.0 [facility] Comment on above: Order Comment: Order Added by Discern Expert. Performed By: #### 1 1995143, 8496410, 9925890, 0611567, 7072981, 6098997, 62030442, 9239372 #### [facility] [address] [place] [address] Monocytes/100 WBC (Bld) 6.4 % Normal 4.0-14.0 [facility] Comment on above: Order Comment: Order Added by Discern Expert. Performed By: #### 1 4071176, 5828021, 9902359, 1521843, 7127860, 2704937, 82730745, 5244946 #### [facility] [address] [place] [address] Monocytes/Leukocyte s Auto (Bld) [Pure # fraction] 0.5 E9/L Normal 0.2-1.0 [facility] Comment on above: Order Comment: Order Added by Discern Expert. Performed By: #### 1 3168137, 8275303, 5489219, 4326206, 9002334, 9128302, 36108957, 0954726 #### [facility] [address] [place] [address] Neutrophils/100 WBC (Bld) 73.5 % Normal 36.0-75.0 [facility] Comment on above: Order Comment: Order Added by Discern Expert. Performed By: #### 1 4271740, 2213288, 3946047, 7628904, 6279474, 1879411, 17735966, 0431395 #### [facility] [address] [place] [address] Neutrophils/Leukocy dariel Auto (Bld) [Pure # fraction] 5.7 E9/L Normal 2.0-7.5 [facility] Comment on above: Order Comment: Order Added by Discern Expert. Performed By: #### 1 4418499, 9105649, 6025010, 2004817, 3649683, 0824937, 40490816, 9823859 #### [facility] [address] [place] [address] Basophils/100 WBC (Bld) 0.3 % Normal 0.0-2.0 [facility] Comment on above: Order Comment: Order Added by Discern Expert. Performed By: #### 1 0878359, 9621939, 9583156, 7817834, 5738754, 8914283, 49774740, 2590039 #### [facility] [address] [place] [address] Basophils/Leukocyte s Auto (Bld) [Pure # fraction] 0.0 E9/L Normal 0.0-0.2 [facility] Comment on above: Order Comment: Order Added by Discern Expert. Performed By: #### 1 6872804, 2243778, 6470265, 2463101, 6761020, 3289112, 44359328, 6933983 #### [facility] [address] [place] [address] Eosinophils/100 WBC (Bld) 0.6 % Normal 0.0-8.0 [facility] Comment on above: Order Comment: Order Added by Discern Expert. Performed By: #### 1 0900937, 6806840, 3669329, 7213198, 9461776, 1783769, 63702352, 2979034 #### [facility] [address] [place] [address] Eosinophils/Leukocy dariel Auto (Bld) [Pure # fraction] 0.1 E9/L Normal 0.0-0.5 [facility] Comment on above: Order Comment: Order Added by Discern Expert. Performed By: #### 1 9717518, 2996150, 0628850, 2165119, 6688446, 3142588, 80348107, 9046139 #### [facility] [address] [place] [address] Lymphocytes/100 WBC (Bld) 6.4 % Low 14.0-50.0 [facility] Comment on above: Order Comment: Order Added by Discern Expert. Performed By: #### 1 3921065, 9240195, 5230915, 3152832, 7595060, 0984283, 69607316, 6158441 #### [facility] [address] [place] [address] Lymphocytes/Leukocy dariel Auto (Bld) [Pure # fraction] 0.8 E9/L Low 1.0-4.0 [facility] Comment on above: Order Comment: Order Added by Discern Expert. Performed By: #### 1 5560768, 6504151, 2557088, 1231197, 4197621, 9290437, 65171464, 2529806 #### [facility] [address] [place] [address] Monocytes/100 WBC (Bld) 5.5 % Normal 4.0-14.0 [facility] Comment on above: Order Comment: Order Added by Discern Expert. Performed By: #### 1 4078327, 7820186, 6497310, 3209724, 1186308, 6503061, 32668982, 4828602 #### [facility] [address] [place] [address] Monocytes/Leukocyte s Auto (Bld) [Pure # fraction] 0.7 E9/L Normal 0.2-1.0 [facility] Comment on above: Order Comment: Order Added by Discern Expert. Performed By: #### 1 4970233, 9905654, 5019541, 0205165, 6995173, 8594884, 95997765, 3695891 #### [facility] [address] [place] [address] Neutrophils/100 WBC (Bld) 87.2 % High 36.0-75.0 [facility] Comment on above: Order Comment: Order Added by Discern Expert. Performed By: #### 1 3927213, 2552811, 9289438, 3580482, 0381405, 3392225, 38275094, 3363205 #### [facility] [facility] [address] [place] [address] Neutrophils/Leukocy dariel Auto (Bld) [Pure # fraction] 11.3 E9/L High 2.0-7.5 [facility] Comment on above: Order Comment: Order Added by Discern Expert. Performed By: #### 1 6104881, 4441271, 7081547, 5471206, 5644419, 4504729, 35330252, 8258382 #### [facility] [address] [place] [address] BMPon 07-18-2019 Urea nitrogen/Creatinine [Mass ratio] 22 No Units High 10-20 [facility] Comment on above: Performed By: #### 1 0317326, 8117207, 4729029, 0149912, 2677082, 7175226, 49396153, 0237395 #### [facility] [address] [place] [address] Creatinine [Mass/Vol] 0.5 mg/dL Normal 0.5-1.3 [facility] Comment on above: Performed By: #### 1 7311581, 1519362, 8295153, 6178384, 3829544, 5933783, 47167253, 4078230 #### [facility] [address] [place] [address] Urea nitrogen [Mass/Vol] 11 mg/dL Normal 5-21 [facility] Comment on above: Performed By: #### 1 8960123, 2207338, 3193511, 1746584, 9520096, 6824193, 58498324, 7214196 #### [facility] [address] [place] [address] Anion gap [Moles/Vol] 12 mmol/L Normal 6-16 [facility] Comment on above: Performed By: #### 1 0706684, 3232895, 8200355, 2302274, 0613443, 0472383, 13068903, 5853636 #### [facility] [address] [place] [address] Calcium [Mass/Vol] 8.8 mg/dL Low 8.9-11.1 [facility] Comment on above: Performed By: #### 1 2338201, 6747650, 5601163, 6807773, 5769983, 9222119, 40965323, 3823946 #### [facility] [address] [place] [address] Chloride [Moles/Vol] 109 mmol/L Normal 101-111 [facility] Comment on above: Performed By: #### 1 6145302, 1672886, 3607964, 5964111, 6512036, 5149689, 31678022, 5576998 #### [facility] [address] [place] [address] CO2 [Moles/Vol] 24 mmol/L Normal 21-31 [facility] Comment on above: Performed By: #### 1 9910741, 8317861, 8479550, 8973392, 5151170, 7601626, 26813911, 5742101 #### [facility] [address] [place] [address] Glucose [Mass/Vol] 104 mg/dL Normal 55-199 [facility] Comment on above: Result Comment: If t his glucose result represents a fasting glucose, interpretation should refer to the following reference range: 55-99 mg/dL Performed By: #### 1 7076467, 7356675, 8967285, 8970972, 3342378, 6037760, 04763051, 5884276 #### [facility] [address] [place] [address] Potassium [Moles/Vol] 3.8 mmol/L Normal 3.5-5.3 [facility] Comment on above: Performed By: #### 1 7132321, 8707214, 0979450, 4071247, 6001410, 7609325, 48714495, 2553994 #### [facility] [address] [place] [address] Sodium [Moles/Vol] 141 mmol/L Normal 135-145 [facility] Comment on above: Performed By: #### 1 0908013, 3023354, 3656434, 2370544, 4716193, 5765346, 03267956, 3214680 #### [facility] [address] [place] [address] Creatinine [Mass/Vol] 0.5 mg/dL Normal 0.5-1.3 [facility] Comment on above: Performed By: #### 1 7791135, 9330558, 9762541, 6020225, 1603747, 0451154, 84302589, 4939467 #### [facility] [address] [place] [address] Urea nitrogen [Mass/Vol] 13 mg/dL Normal 5-21 [facility] Comment on above: Performed By: #### 1 3376547, 3830675, 4373265, 9617350, 8389350, 1462311, 40373511, 7513910 #### [facility] [address] [place] [address] Urea nitrogen/Creatinine [Mass ratio] 26 No Units High 10-20 [facility] Comment on above: Performed By: #### 1 8973120, 5545245, 3362243, 0961356, 4005572, 8269822, 55436367, 7122698 #### [facility] [address] [place] [address] Anion gap [Moles/Vol] 13 mmol/L Normal 6-16 [facility] Comment on above: Performed By: #### 1 8547741, 7885553, 5276713, 9262882, 4058814, 7861201, 95978297, 3941794 #### [facility] [address] [place] [address] Calcium [Mass/Vol] 9.3 mg/dL Normal 8.9-11.1 [facility] Comment on above: Performed By: #### 1 5308274, 4390393, 6017316, 5848207, 4185574, 6359086, 36911735, 5224036 #### [facility] [address] [place] [address] Chloride [Moles/Vol] 105 mmol/L Normal 101-111 [facility] Comment on above: Performed By: #### 1 2427248, 4154148, 2191498, 4944813, 3551815, 0840109, 49617061, 4580496 #### [facility] [address] [place] [address] CO2 [Moles/Vol] 26 mmol/L Normal 21-31 [facility] Comment on above: Performed By: #### 1 2766674, 2797634, 5471138, 5516966, 7429638, 1334681, 42388682, 2693763 #### [facility] [address] [place] [address] Glucose [Mass/Vol] 107 mg/dL Normal 55-199 [facility] Comment on above: Result Comment: If t his glucose result represents a fasting glucose, interpretation should refer to the following reference range: 55-99 mg/dL Performed By: #### 1 1560179, 3377453, 1959569, 9930690, 7297534, 7065361, 53002608, 8169701 #### [facility] [address] [place] [address] Potassium [Moles/Vol] 3.7 mmol/L Normal 3.5-5.3 [facility] Comment on above: Performed By: #### 1 0991142, 1374707, 4191703, 1073536, 6935179, 7740390, 97605435, 7484423 #### [facility] [address] [place] [address] Sodium [Moles/Vol] 140 mmol/L Normal 135-145 [facility] Comment on above: Performed By: #### 1 2367136, 7785717, 3385300, 7097794, 9781156, 7445060, 57849966, 1918226 #### [facility] [address] [place] [address] CBC w/ Auto Diffon 9 Erythrocyte distribution width (RBC) [Ratio] 13.7 % Normal 10.9-14.2 [facility] Comment on above: Performed By: #### 1 9094191, 7040883, 5446403, 8926301, 4146443, 7378754, 42465377, 6468743 #### [facility] [address] [place] [address] Hematocrit (Bld) [Volume fraction] 34.8 % Normal 34.0-46.0 [facility] Comment on above: Performed By: #### 1 5832376, 8467244, 2574492, 5398073, 9464073, 7020454, 88796400, 6095672 #### [facility] [address] [place] [address] Hemoglobin (Bld) [Mass/Vol] 12.0 g/dL Normal 12.0-16.0 [facility] Comment on above: Performed By: #### 1 4107678, 4709371, 1206653, 5086717, 2584567, 6087835, 32858672, 9370491 #### [facility] [address] [place] [address] 58767 MCH (RBC) [Entitic mass] 30.5 pg Normal 27.0-34.0 [facility] Comment on above: Performed By: #### 1 7939521, 6668608, 0425241, 6252304, 0582836, 4253064, 34424575, 7668077 #### [facility] [address] [place] [address] MCHC (RBC) [Mass/Vol] 34.5 g/dL Normal 33.3-35.7 [facility] Comment on above: Performed By: #### 1 8494248, 0124626, 6111111, 9231500, 1747381, 4765013, 27953750, 9599580 #### [facility] [address] [place] [address] MCV (RBC) [Entitic vol] 88.6 fL Normal 80.0-100.0 [facility] Comment on above: Performed By: #### 1 9918010, 9201901, 4566434, 1051040, 4755448, 2811556, 40469419, 4725967 #### [facility] [address] [place] [address] Platelet mean volume (Bld) [Entitic vol] 7.9 fL Normal 6.4-10.8 [facility] Comment on above: Performed By: #### 1 1679417, 4533012, 2275575, 6338250, 8453237, 5788376, 16189262, 7240037 #### [facility] [address] [place], [place] [address] Platelets (Bld) [#/Vol] 256.0 E9/L Normal 150.0-500.0 [facility] Comment on above: Performed By: #### 1 3157561, 9023193, 6202606, 2796774, 6529416, 5258412, 90579634, 7505005 #### [facility] [address] [place] [address] RBC (Bld) [#/Vol] 3.9 E12/L Low 4.3-5.9 [facility] Comment on above: Performed By: #### 1 7719683, 2915477, 6981502, 1812415, 2343114, 2846392, 81454456, 9271863 #### [facility] [address] [place] [address] WBC corrected for nucl RBC Auto (Bld) [#/Vol] 7.8 E9/L Normal 4.0-11.0 [facility] Comment on above: Performed By: #### 1 2741196, 8265630, 4774228, 5081304, 5302302, 1702301, 83466659, 2217632 #### [facility] [address] [place] [address] Erythrocyte distribution width (RBC) [Ratio] 13.2 % Normal 10.9-14.2 [facility] Comment on above: Performed By: #### 1 5634142, 4681132, 9179279, 6564369, 3995157, 0452521, 68735598, 7266985 #### [facility] [address] [place] [address] Hematocrit (Bld) [Volume fraction] 38.9 % Normal 34.0-46.0 [facility] Comment on above: Performed By: #### 1 2082599, 9595189, 8091279, 3285641, 8581571, 5044637, 73125088, 4360747 #### [facility] [address] [place] [address] Hemoglobin (Bld) [Mass/Vol] 13.2 g/dL Normal 12.0-16.0 [facility] Comment on above: Performed By: #### 1 9281030, 2908877, 3650666, 9704245, 4276410, 4599342, 52275122, 8508644 #### [facility] [address] [place] [address] MCH (RBC) [Entitic mass] 30.0 pg Normal 27.0-34.0 [facility] Comment on above: Performed By: #### 1 8209006, 5305907, 7946635, 2872499, 7248378, 9478493, 36979570, 4607238 #### [facility] [address] [place] [address] MCHC (RBC) [Mass/Vol] 34.0 g/dL Normal 33.3-35.7 [facility] Comment on above: Performed By: #### 1 7271538, 1461876, 4191816, 1922821, 2296913, 5053784, 85147659, 4325635 #### [facility] [address] [place] [address] MCV (RBC) [Entitic vol] 88.1 fL Normal 80.0-100.0 [facility] Comment on above: Performed By: #### 1 7929565, 7786844, 3485071, 3681589, 3654569, 4951379, 88911050, 4604171 #### [facility] [address] [place] [address] Platelet mean volume (Bld) [Entitic vol] 8.3 fL Normal 6.4-10.8 [facility] Comment on above: Performed By: #### 1 8011311, 5015079, 7812892, 6715838, 0494372, 4517177, 89043499, 5650062 #### [facility] [address] [place] [address] Platelets (Bld) [#/Vol] 253.0 E9/L Normal 150.0-500.0 [facility] Comment on above: Result Comment: Slid e reviewed by CHARO. Performed By: #### 1 9601682, 3552590, 2297524, 7072490, 8130071, 2191971, 99529648, 5229727 #### [facility] [address] [place] [address] RBC (Bld) [#/Vol] 4.4 E12/L Normal 4.3-5.9 [facility] Comment on above: Performed By: #### 1 1036833, 7617135, 3686058, 5873911, 2204972, 9443816, 94690902, 8710961 #### [facility] [address] [place] [address] WBC corrected for nucl RBC Auto (Bld) [#/Vol] 13.0 E9/L High 4.0-11.0 [facility] Comment on above: Performed By: #### 1 2614134, 2860717, 0552062, 6914983, 6922261, 2483456, 53982464, 3746289 #### [facility] [address] [place] [address] Consultation Noteon 07-18-20 Consultation Note ACUTE CARE [...] Lymph Auto: 19.3 % (07/18/19 05:33:00 EDT) [place] Auto: 6.4 % (07/18/19 05:33:00 EDT) Eos Auto: 0.4 % (07/18/19 05:33:00 EDT) Basophil Auto: 0.4 % (07/18/19 05:33:00 EDT) Neutro Absolute: 5.7 E9/L (07/18/19 05:33:00 EDT) Lymph Absolute: 1.5 E9/L (07/18/19 05:33:00 EDT) [place] Absolute: 0.5 E9/L (07/18/19 05:33:00 EDT) Eos [...] MD, FACS Trauma/Critical Care/Acute Care Surgery Attending [facility] Comment on above: Result Comment: Elec tronically [...] since 2am, states lab work done at [facility] today liver enzymes were elevated history of pancreatitis History of Present Illness 33 years old white female admitted to [facility] with sudden onset of abdominal pain, she [...] list: All Problems Pancreatitis / SNOMED CT 077227621 / Confirmed Hypothyroidism / SNOMED CT 10029545 / Confirmed Ovarian dysfunction / SNOMED CT 05678591 / Confirmed Histories Past Medical History: No [...] Auto 73.5 % Lymph Auto 19.3 % [place] Auto 6.4 % Eos Auto 0.4 % Basophil Auto 0.4 % Neutro Absolute 5.7 E9/L Lymph Absolute 1.5 E9/L [place] Absolute 0.5 E9/L Eos Absolute 0.0 E9/L [...] % HI Lymph Auto 6.4 % LOW [place] Auto 5.5 % Eos Auto 0.6 % Basophil Auto 0.3 % Neutro Absolute 11.3 E9/L HI Lymph Absolute 0.8 E9/L LOW [place] Absolute 0.7 E9/L Eos Absolute 0.1 E9/L [...] related complications, she agreed to proceed Normal [facility] Comment on above: Result Comment: Elec tronically Signed By: CAPRICE GUSTAFSON, Abhinav\.br\Date and Time Signed: 07/18/19 10:01 EDT ED Clinical Summaryon 2018 ED Clinical Summary (Inserted Image. Sachi ble to display) [place] [id number] ED Clinical Summary Person Information Name: SUKHDEV SCHWARTZ [place] Age: 33 Years : 1985 12:00 AM Sex: Female Language: Mongolian PCP: LOLI MATIAS MD Marital Status: Phone: [phone] Visit Id: Visit Reason: Vomiting; Nausea; Abdominal pain; ABD PAIN, NAUSEA Speciality: Acuity: 3 Enc Type: Emergency Med Service: Emergency Arrival: 07/17/2019 8:55 PM Discharge: LOS: 000 03:53 Checkin: 07/17/2019 8:55 PM Checkout: 07/18/2019 12:48 AM Dispo Type: Admitted as IP to this [facility] EVENTS: Event Name Event Status Request Date/Time [...] 07/18/2019 12:48 AM 07/18/2019 12:48 AM ADDRESS: [facility] [address] [place] [id number] [facility] DOC NOTES: MEDICAL INFORMATION: Prescriptions Given: PATIENT EDUCATION INFORMATION: Instructions: Follow up: DIAGNOSIS: Normal [facility] ED Patient Education Noteon 07-18-2019 ED Patient Education Note Normal [facility] ED Patient Summaryon ED Patient Summary (Inserted Image. Sachi ble to display) [address] [address] Patient Discharge Instructions Person Information Name: SUKHDEV SCHWARTZ Age: 33 Years Arrival Date: 07/17/2019 8:55 PM Discharge Diagnosis: Primary Care Physician: LOLI MATIAS MD Provider Information Primary Provider: Rubio MD, Mehran Advanced Administrative Secretary:Oswaldo Fischer PA-C The exam and treatment you received in the Emergency Department were for an urgent problem and are not intended as complete care. It is important that you follow up with a doctor, nurse practitioner, or physician?s speech assistant for ongoing care. If your symptoms [...] opioids can be used to help relieve xwfwqqwx-gw-alhsgs pain and are often prescribed following a [...] be struggling with addiction, tell your health veterinarian laboratory animal care and ask for guidance or call [facility]?S National Helpline at 4-434-291-YMMZ. v Source: [place] Department of Health and Human Services/Center for Disease Control & Prevention [facility] Medications Given: Medication Dose Route Sodium Chloride 0.9% intravenous solution 1000.00 mL Initial Volume 1000.00 mL/hr IV Left Antecubital [place] morphine 4.00 mg IV Push Left Anterior Chest ondansetron 4.00 mg IV Push Left Antecubital Ana nalbuphine 5.00 mg IV Push Left Antecubital [place] Medication Information: Medications to Continue with No [...] Drug [facility] [place] Thank you for choosing [facility] Patient Education Materials: JAMES Bain BRITTANY F , have received the following patient education materials/instructions and have verbalized understanding: Patient Education Materials: Follow-up Instructions: Prescriptions: Patient Signature __ Date Clinician/Nurse Signature Date 07/18/19 00:48:50 Normal [facility] Hep Func Panelon 07-18-2019 Albumin [Mass/Vol] 1.2 g/dL Normal 1.1-2.2 [facility] Comment on above: Performed By: #### 1 5998634, 8451193, 6662314, 1467975, 3865696, 5242822, 04758649, 5414521 #### [facility] [address] [place] [address] ALP [Catalytic activity/Vol] 61 Int._Unit/L Normal 21-98 [facility] Comment on above: Performed By: #### 1 3509621, 6105635, 6561437, 1859567, 7705078, 3026026, 42096844, 7519358 #### [facility] [address] [place] [address] 89645 ALT No additional P-5'-P [Catalytic activity/Vol] 119 Int._Unit/L High 6-46 [facility] Comment on above: Performed By: #### 1 5202672, 1747084, 9122379, 1884171, 8276815, 8183343, 85749945, 0226926 #### [facility] [address] [place] [address] 73896 AST [Catalytic activity/Vol] 106 Int._Unit/L High 5-43 [facility] Comment on above: Performed By: #### 1 2994850, 7743201, 9139983, 2023625, 5286038, 2473768, 35904849, 1055671 #### [facility] [address] [place] [address]1132 Bilirubin.direct [Mass/Vol] 1.6 mg/dL High 0.1-0.9 [facility] Comment on above: Performed By: #### 1 2026214, 6366569, 8485472, 0887138, 6297457, 9218314, 91156623, 4933932 #### [facility] [address] [place] [address]250 Globulin (S) [Mass/Vol] 2.7 g/dL Normal 1.4-4.0 [facility] Comment on above: Performed By: #### 1 3460439, 7852677, 9920524, 9278643, 5371227, 6041151, 13551503, 7039575 #### [facility] [address] [place] [address] 26059 Albumin [Mass/Vol] 3.3 g/dL Normal 3.3-5.0 [facility] Comment on above: Performed By: #### 1 7767755, 1098568, 7894839, 5766870, 2348530, 9435868, 06318457, 6209982 #### [facility] [address] [place] [address] Bilirubin [Mass/Vol] 3.6 mg/dL High 0.0-1.1 [facility] Comment on above: Performed By: #### 1 9645635, 0090755, 6396584, 8744984, 4692268, 9170056, 72298592, 7463842 #### [facility] [address] [place] [address] Bilirubin.direct [Mass/Vol] 2.0 mg/dL High 0.1-0.4 [facility] Comment on above: Performed By: #### 1 8061653, 3580403, 8557928, 3898205, 5587886, 7077900, 93925963, 3788359 #### [facility] [address] [place] [address] 65033 Protein [Mass/Vol] 6.0 g/dL Normal 6.0-7.8 [facility] Comment on above: Performed By: #### 1 9204187, 4992821, 9652454, 8313573, 4748611, 3100288, 48608437, 7926151 #### [facility] [address] [place] [address] 12514 Albumin [Mass/Vol] 3.8 g/dL Normal 3.3-5.0 [facility] Comment on above: Performed By: #### 1 9675611, 9763061, 8831047, 5957318, 3485637, 9318735, 41844453, 8604158 #### [facility] [address] [place] [address] Albumin [Mass/Vol] 1.4 g/dL Normal 1.1-2.2 [facility] Comment on above: Performed By: #### 1 8408815, 4361246, 2864433, 3186175, 1825706, 2508415, 32795680, 8908681 #### [facility] [address] [place] [address] ALP [Catalytic activity/Vol] 69 Int._Unit/L Normal 21-98 [facility] Comment on above: Performed By: #### 1 4146681, 6307876, 1418757, 1292260, 5624599, 0948028, 00992701, 4855018 #### [facility] [address] [place] [address] ALT No additional P-5'-P [Catalytic activity/Vol] 144 Int._Unit/L High 6-46 [facility] Comment on above: Performed By: #### 1 2879777, 6953460, 2487295, 6610652, 8495426, 4217493, 62337268, 0263209 #### [facility] [address] [place] [address] 05334 AST [Catalytic activity/Vol] 179 Int._Unit/L High 5-43 [facility] Comment on above: Performed By: #### 1 4497981, 1629274, 3670678, 7939554, 2694960, 8938999, 05286162, 2809323 #### [facility] [address] [place] [address] 59260 Bilirubin [Mass/Vol] 3.6 mg/dL High 0.0-1.1 [facility] Comment on above: Performed By: #### 1 1549242, 4721523, 0834210, 0006184, 1513290, 6249237, 00461037, 9139643 #### [facility] [address] [place] [address] Bilirubin.direct [Mass/Vol] 1.5 mg/dL High 0.1-0.9 [facility] Comment on above: Performed By: #### 1 1011912, 0532075, 4695297, 6559985, 6168213, 9979179, 57921203, 2643887 #### [facility] [address] [place] [address]8832 Bilirubin.direct [Mass/Vol] 2.1 mg/dL High 0.1-0.4 [facility] Comment on above: Performed By: #### 1 8047405, 6777357, 1721560, 1638789, 6906981, 6043035, 21047623, 2828063 #### [facility] [address] [place] [address] Globulin (S) [Mass/Vol] 2.7 g/dL Normal 1.4-4.0 [facility] Comment on above: Performed By: #### 1 0066883, 2978112, 2475617, 7368774, 1296952, 6039251, 37465245, 5096511 #### [facility] [address] [place] [address] Protein [Mass/Vol] 6.5 g/dL Normal 6.0-7.8 [facility] Comment on above: Performed By: #### 1 5882114, 3425494, 7513776, 0933877, 6098911, 0103243, 86993767, 3615204 #### [facility] [address] [place] [address] History and Physicalon 07-18 History and Physical [...] states she had a hospitalization while in [place] last month with the same was considered [...] Auto: 6.4 % Low (07/17/19 22:12:00 EDT) [place] Auto: 5.5 % (07/17/19 22:12:00 EDT) Eos Auto: 0.6 % (07/17/19 22:12:00 EDT) Basophil Auto: 0.3 % (07/17/19 22:12:00 EDT) Neutro Absolute: 11.3 E9/L High (07/17/19 22:12:00 EDT) Lymph Absolute: 0.8 E9/L Low (07/17/19 22:12:00 EDT) [place] Absolute: 0.7 E9/L (07/17/19 22:12:00 EDT) Eos [...] 2: Mother. Thyroid cancer: Mother and Sister. [facility] Comment on above: Result Comment: Elec tronically Signed By: Aron ALVARADO DO\.br\Date and Time Signed: 07/18/19 02:27 EDT Interdisciplinary Note - Arcadio e Manageron 07-18-2019 INR Coag (Bld) [Relative time] Rounding with Dr. Benjamin, Felicia ACEVEDO, Rosie [facility], and Jeanette GOODRICH with another patient. No [...] needs at discharge. lives with spouse. Normal [facility] Lactic Acidon 07-18-2019 Lactate [Mass/Vol] 10.1 mg/dL Normal 4.5-19.8 [facility] Comment on above: Performed By: #### 1 3943676, 6101670, 7548889, 7566827, 3939438, 7816198, 08849868, 0967618 #### [facility] [address] [place] [address] Lipase Levelon 07-18-2019 Lipase [Catalytic activity/Vol] U/L High 13-58 [facility] Comment on above: Result Comment: Resu lt verified by dilution Performed By: #### 1 3051933, 2136625, 4582233, 4845836, 6605000, 6178397, 79738783, 1364628 #### [facility] [address] [place] [address] Main OR Intraoperative Recor don 07-18-2019 Main OR Intraoperative Record IntraOp Document Type FT Summary Primary Physician: Abhinav REDDY MD Finalized Date/Time: 07/18/19 14:39:36 Pt. Name: SUKHDEV SCHWARTZ/Sex: 1985 Female Med Rec #: [id number] Physician: Aron ALVARADO DO Financial #: [id number] Pt. Type: I Room/Bed: [place] [address] Admit/Disch: 07/17/19 20:55:00 - Institution: Case Times FT Entry 1 Patient Times In Room 07/18/19 09:58:00 Out Room 07/18/19 10:24:00 Procedure Times Start 07/18/19 10:05:00 Stop 07/18/19 10:17:00 Anesthesia Times Start 07/18/19 09:58:00 Stop 07/18/19 10:24:00 Last Modified By: Juanita Stein CST 07/18/19 10:27:28 General Comments: 07/18/19 Chart opened to review and send charges Hilda Stein AZURE PRINCIPAL SOLUTION SPECIALIST Case Attendance FT Entry 1 Entry 2 Entry 3 Case Attendee CAPRICE GUSTAFSON, Abhinav Eaton Jr DO, Davie Cabrera RN, Pamela Role Performed Surgeon - Primary Anesthesiologist of Executive Relations Specialist - Primary Record Time In 07/18/19 10:03:00 07/18/19 09:58:00 07/18/19 09:58:00 Time Out 07/18/19 10:24:00 07/18/19 10:24:00 07/18/19 10:24:00 Procedure ERCP(.) ERCP(.) ERCP(.) Comments Last Modified By: Deborah RN, Pamela Cabrera RN, Pamela Cabrera RN, Pamela 07/18/19 10:32:44 07/18/19 10:27:40 07/18/19 10:27:40 Entry 4 Entry 5 Entry 6 Case Attendee Reny Michaud AZURE PRINCIPAL SOLUTION SPECIALIST, Shobha Nicolas RT, Kathy Turcios Role Performed [...] Attendee Moy GOODRICH, Humaira Hooper Role Performed Executive Relations Specialist - Other Time In 07/18/19 09:58:00 [...] BAE, Davie Perry, Deborah GOODRICH, Pamela, Jerry AZURE PRINCIPAL SOLUTION SPECIALIST, Jaswant Yeager, Reny K, Fidencio RT, Moy [...] and tissue Entry 1 Skin Integrity Intact, [place], Warm, and Skin Abnormality No Dry Outcomes [...] RN Patient Status Stable Skin. Condition Intact, [place], Warm, and Dry Airway Maintenance Oxygen in Use? No Airway Device N/A Outcomes Met? 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 Yes Verified Last Modified By: Pamela Cabrera RN 07/18/19 10:15:26 Post-Care Text: The patient received appropriate medication(s) safely administered during the perioperative period For [facility] please see scanned medication reconcilliation form for [...] signs and symptoms of radiation injury Normal [facility] Main OR PACU I Recordon 10 Main OR PACU I Record PACU Phase I Document Type FT Summary Primary Physician: Abhinav REDDY MD Finalized Date/Time: 07/18/19 10:47:23 Pt. Name: SUKHDEV SCHWARTZ Antoni Garcia./Sex: 1985 Female Med Rec #: [id number] Physician: Aron ALVARADO DO Financial #: [id number] Pt. Type: I Room/Bed: [place] [address] Admit/Disch: 07/17/19 20:55:00 - Institution: Case Times [...] By: Carin Iverson RN 07/18/19 10:47 Normal [facility] Main OR Preoperative Recordo n 07-18-2019 Main OR Preoperative Record Holding Area Document Type FT Summary Primary Physician: Abhinav REDDY MD Finalized Date/Time: 07/18/19 09:36:36 Pt. Name: SEN SCHWARTZTRUMAN Garcia./Sex: 1985 Female Med Rec #: [id number] Physician: Aron ALVARADO DO Financial #: [id number] Pt. Type: I Room/Bed: [facility]/ Admit/Disch: 07/17/19 20:55:00 - Institution: [...] Patient states Yes Comment - Adult ip [id number] COMING postop adult Supervision supervision available Case [...] RN, Al, Kellen POZO 07/18/19 09:36 Normal [facility] PT & PTTon 07-18-2019 aPTT Coag (PPP) [Time] 28.1 second(s) Normal 25.1-36.5 [facility] Comment on above: Result Comment: Hepa rin therapeutic range (represented by Anti-Factor Xa activity of 0.2 - 0.4 U/mL) corresponds to PTT of 56.6 - 109.0 sec. Performed By: #### 1 [id number], 5516262, 3698673, 8527489, 0993673, 8882838, 82969132, 0919967 #### [facility] Laboratory [address] [place] [address] INR Coag (PPP) [Relative time] 1.0 {INR} [facility] Comment on above: Result Comment: INR results are specifically intended to assess patients stabilized on long-term Anticoagulation therapy suggested INR?s ?Less Intensive Anticoagulation? 2.0 ? 3.0 Conventional Range 3.0 ? 4.5 Performed By: #### 1 8792353, 9522300, 7146127, 4380991, 5708606, 5499754, 95066903, 4238347 #### [facility] [address] [place] [address] PT Coag (PPP) [Time] 11.9 second(s) Normal 10.2-12.9 [facility] Comment on above: Performed By: #### 1 1613946, 0919902, 7580146, 2073730, 2345034, 4488649, 90978283, 4285896 #### [facility] [address] [place] [address] Prescriptions/Work Noteson 1 Prescriptions/Work Notes Pt to US at this time, via cart. Normal [facility] Progress Note-Nurseon 2018 Progress Note-Nurse SIMI Murillo aware of patient c/o pain. Normal [facility] Progress Note-Nurse Pt care report provi ded to JOLEEN Chavez at this time. Normal [facility] U BetaHcg Qualon 07-18-2019 HCG.beta subunit (U) [Moles/Vol] Negative Normal [facility] Comment on above: Performed By: #### 1 3257364, 4966467, 1620210, 3014876, 9003792, 9854474, 59698709, 2413896 #### [facility] [address] [place] [address] UA With Cult Reflexon 2018 Bacteria LM Ql (Urine sed) 1+ /HPF Abnormal Trace [facility] Comment on above: Performed By: #### 1 1030470, 6641863, 7018518, 6509169, 1669353, 8493371, 46251802, 2869571 #### [facility] [address] [place] [address] Bilirubin Ql (U) 3+ Abnormal Negative [facility] Comment on above: Performed By: #### 1 3514869, 2778379, 4011118, 0112174, 9389402, 4992020, 49138760, 0422574 #### [facility] [address] [place] [address] Clarity (U) SL CLOUDY Abnormal Clear [facility] Comment on above: Performed By: #### 1 5501605, 6062535, 8418326, 1674333, 9767314, 7358175, 16753017, 3733503 #### [facility] [address] [place] [address] Color (U) DARK YELLO Abnormal Yellow [facility] Comment on above: Performed By: #### 1 0761536, 2337947, 9761132, 6180737, 4720596, 3944970, 51700943, 3590018 #### [facility] [address] [place] [address] Crystals LM Ql (Urine sed) Present Normal [facility] Comment on above: Performed By: #### 1 9441307, 0323530, 2284842, 3509623, 8373214, 1063910, 43721487, 9557081 #### [facility] [address] [place] [address] Epithelial cells.squamous LM.HPF (Urine sed) [#/Area] 5-8 Normal 0-2 [facility] Comment on above: Performed By: #### 1 1918418, 4033982, 5588073, 8367657, 3501562, 9572262, 80584123, 9225975 #### [facility] [address] [place] [address] Glucose Test strip (U) [Mass/Vol] Negative Normal Negative [facility] Comment on above: Performed By: #### 1 9920009, 0389727, 9295236, 8439121, 3727354, 2078650, 63085841, 2670578 #### [facility] [address] [place] [address] Hemoglobin Ql (U) TRACE Abnormal Negative [facility] Comment on above: Performed By: #### 1 3854906, 5558500, 4795906, 3639811, 8009757, 1254707, 68535757, 9490316 #### [facility] [address] [place] [address] Ketones (U) [Mass/Vol] 3+ Abnormal Negative [facility] Comment on above: Performed By: #### 1 2747389, 6205058, 7084837, 8795054, 4532062, 7565493, 56858624, 0201957 #### [facility] [address] [place] [address] Sunnyslope.plasma/Lith ium.RBC (Bld) [Mass ratio] 4-20 Normal 0-3 [facility] Comment on above: Performed By: #### 1 4931452, 9039930, 1348488, 2665876, 9232723, 6877680, 43485812, 1449193 #### [facility] [address] [place] [address] Mucus Ql (Urine sed) 3+ Normal [facility] Comment on above: Performed By: #### 1 2351452, 9913386, 9274210, 6803680, 2388016, 2392926, 38218387, 9610559 #### [facility] [address] [place] [address] Nitrite Ql (U) Negative Normal Negative [facility] Comment on above: Performed By: #### 1 3165584, 3413207, 3559252, 3990382, 7241435, 6412627, 93855474, 5806646 #### [facility] [address] [place] [address] pH (U) 6.0 [pH] 5.0-9.0 [facility] Comment on above: Performed By: #### 1 8375638, 3602147, 3286200, 5365735, 7532399, 6543790, 69656738, 9468477 #### [facility] [address] [place] [address] Protein (U) [Mass/Vol] TRACE Abnormal Negative [facility] Comment on above: Performed By: #### 1 1574868, 3313293, 5165197, 9063703, 3797960, 4160117, 66601892, 2596015 #### [facility] [address] [place] [address] Specific gravity (U) [Rel density] >=1.030 1.005-1.030 [facility] Comment on above: Performed By: #### 1 3515785, 6834729, 3612022, 1157315, 4304752, 8167846, 99198156, 2410096 #### [facility] [address] [place] [address] UA Spec Desc Clean Catch Normal [facility] Comment on above: Performed By: #### 1 8983270, 4933196, 8518917, 6784178, 1728851, 8038111, 07696378, 1204449 #### [facility] [address] [place] [address] Urobilinogen Qn (U) 2.0 {Payal'U}/dL Abnormal 0.0-1.0 [facility] Comment on above: Performed By: #### 1 0440159, 0767621, 0242361, 4923671, 0191474, 4059040, 75439332, 1887548 #### [facility] [address] [place] [address] WBC Auto Ql (U) TRACE Abnormal Negative [facility] Comment on above: Performed By: #### 1 6281404, 7360481, 5281777, 0970532, 6901392, 8379109, 70396940, 6800804 #### [facility] [address] [place] [address] WBC casts LM.LPF (Urine sed) [#/Area] 0-3 Normal [facility] Comment on above: Performed By: #### 1 1632657, 3146749, 0644351, 5983143, 0601896, 2470396, 23053166, 8640837 #### [facility] [address] [place] [address] WBC LM.HPF (Urine sed) [#/Area] 0-5 Normal 0-5 [facility] Comment on above: Performed By: #### 1 8712502, 7222329, 1986639, 9933131, 1971945, 4837238, 96286679, 0449507 #### [facility] [address] [place] [address] US Gallbladderon 07-18-2019 US Gallbladder Exam Date/Time: [...] MD Transcribed by: MADISON Technologist: LALY Earl [facility] XR ERCP Biliary Ducton 07-18 XR ERCP Biliary Duct Exam Date/Time: 07/18/2019 10:25 EDT Reason for Exam: ercp Report IMPRESSION: DISTAL COMMON BILE DUCT STONE, WITH APPARENT REMOVAL FOLLOWING PASSAGE OF A BALLOON CATHETER. SUSPECTED SHORT SEGMENT SPASM OF THE DISTAL MOST COMMON BILE DUCT. CLINICAL HISTORY: ERCP. COMMENT: 6 limited [id number]-os-ihre C-arm images were obtained during an ERCP [...] mGy = 62.1 Fluoro Time: 141.1s Normal [facility] eGFRon 07-18-2019 GFR/1.73 sq M predicted among blacks MDRD (S/P/Bld) [Vol rate/Area] mL/min/{1.73_m2} Normal >=59 [facility] Comment on above: Order Comment: Order added by Discern Expert. Result Comment: eGFR is race adjusted. AA=. Performed By: #### 1 1022028, 8544205, 1339360, 6917173, 9984707, 3456486, 33128128, 7893911 #### [facility] [address] [place] [address] GFR/1.73 sq M predicted among non-blacks MDRD (S/P/Bld) [Vol rate/Area] mL/min/{1.73_m2} Normal >=59 [facility] Comment on above: Order Comment: Order added by Discern Expert. Result Comment: Warning Coordination Meteorologist ivan kidney disease could be indicated at eGFR's of less than 60 mL/min/1.73m2. Kidney failure is indicated at less than 15 mL/min/1.73m2. Performed By: #### 1 0812845, 2137692, 2411047, 7178340, 5515926, 3009168, 30746126, 1887099 #### [facility] [address] [place] [address] GFR/1.73 sq M predicted among blacks MDRD (S/P/Bld) [Vol rate/Area] mL/min/{1.73_m2} Normal >=59 [facility] Comment on above: Order Comment: Order added by Discern Expert. Result Comment: eGFR is race adjusted. AA=. Performed By: #### 1 7829126, 3890502, 6829367, 1936883, 9985758, 3753544, 02820581, 0682253 #### [facility] [address] [place] [address] GFR/1.73 sq M predicted among non-blacks MDRD (S/P/Bld) [Vol rate/Area] mL/min/{1.73_m2} Normal >=59 [facility] Comment on above: Order Comment: Order added by Discern Expert. Result Comment: Warning Coordination Meteorologist ivan kidney disease could be indicated at eGFR's of less than 60 mL/min/1.73m2. Kidney failure is indicated at less than 15 mL/min/1.73m2. Performed By: #### 1 9158278, 1561582, 8241949, 9067441, 0174148, 5364113, 50578048, 4226982 #### [facility] [address] [place] [address] Amylaseon 07-17-2019 Amylase [Catalytic activity/Vol] 39 U/L 28 - 100 U/L [place], [place] CBC Auto Differentialon 06-20 Basophils (Bld) [#/Vol] 0.00 10*3/uL [place] Basophils/100 WBC (Bld) 0 % 0 - 2 % [place] Differential Type YES [place] Eosinophils (Bld) [#/Vol] 0.10 10*3/uL [place] Eosinophils/100 WBC (Bld) 1 % 0 - 5 % [place] Erythrocyte distribution width (RBC) [Ratio] 13.3 % 12.1 - 15.2 % [place] Hematocrit (Bld) [Volume fraction] 36.1 % 36 - 46 % [place] Hemoglobin (Bld) [Mass/Vol] 12.3 g/dL 12 - 16 g/dL [place] Lymphocytes (Bld) [#/Vol] 1.50 10*3/uL [place] Lymphocytes/100 WBC (Bld) 23 % 15 - 40 % [place] MCH (RBC) [Entitic mass] 30.5 pg 26 - 34 pg [place] MCHC (RBC) [Mass/Vol] 34.1 g/dL 31 - 37 g/dL [place] MCV (RBC) [Entitic vol] 89.3 fL 80 - 100 fL [place] Monocytes (Bld) [#/Vol] 0.40 10*3/uL [place] Monocytes/100 WBC (Bld) 6 % 4 - 8 % [place] Platelet mean volume (Bld) [Entitic vol] NOT REPORTED 6 - 12 fL [place] Platelets (Bld) [#/Vol] 301 10*3/uL [place] Platelets (Bld) [#/Vol] NOT REPORTED [place] RBC (Bld) [#/Vol] 4.04 10*6/uL 4 - 5.2 m/uL [place] RBC morphology finding Nom (Bld) NOT REPORTED [place] Segmented neutrophils/100 WBC (Bld) 70 % 47 - 75 % [place] Segs Absolute 4.60 [place] WBC (Bld) [#/Vol] 6.6 10*3/uL [place] WBC (Bld) [#/Vol] NOT REPORTED per 100 WBC [place] WBC Morphology NOT REPORTED [place] Comprehensive Metabolic Pane avel 07-17-2019 Albumin [Mass/Vol] 4.4 g/dL 3.5 - 5.2 g/dL [place] Albumin/Globulin [Mass ratio] NOT REPORTED [place] ALP [Catalytic activity/Vol] 84 U/L 35 - 104 U/L [place] ALT [Catalytic activity/Vol] 153 U/L High 5 - 33 U/L [place] Anion gap [Moles/Vol] 11 mmol/L 9 - 17 mmol/L [place] AST [Catalytic activity/Vol] 243 U/L High <32 [place] Bilirubin Ql (U) 2.37 mg/dL High 0.3 - 1.2 mg/dL [place] Bun/Cre Ratio 27 High [place] Calcium [Mass/Vol] 9.9 mg/dL 8.6 - 10. 4 mg/dL [place] Chloride [Moles/Vol] 104 mmol/L 98 - 107 mmol/L [place] CO2 [Moles/Vol] 24 mmol/L 20 - 31 mmol/L [place] Creatinine [Mass/Vol] 0.49 mg/dL Low 0.5 - 0.9 mg/dL [place] GFR >60 >60 mL/min [place] GFR Non- >60 >60 mL/min [place] GFR/1.73 sq M predicted among non-blacks MDRD (S/P/Bld) [Vol rate/Area] [place] Comment on above: Average GFR for 30-3 9 years old: 107 mL/min/1.73sq m Chronic Kidney Disease: <60 mL/min/1.73sq m Kidney failure: <15 mL/min/1.73sq m eGFR calculated using average adult body mass. Additional eGFR calculator available at: http://www.[employer]/multiple_crcl_2012.htm GFR/1.73 sq M predicted among non-blacks MDRD (S/P/Bld) [Vol rate/Area] NOT REPORTED [place] Glucose [Mass/Vol] 97 mg/dL 70 - 99 mg/dL [place] Interpretation and review of laboratory results Abnormal [place] Potassium [Moles/Vol] 3.6 mmol/L Low 3.7 - 5.3 mmol/L [place] Protein [Mass/Vol] 7.5 g/dL 6.4 - 8.3 g/dL [place] Sodium [Moles/Vol] 139 mmol/L 135 - 144 mmol/L [place] Urea nitrogen [Mass/Vol] 13 mg/dL 6 - 20 mg/dL [place] Lipaseon 07-17-2019 Lipase [Catalytic activity/Vol] 20 U/L 13 - 60 U/L [place] Otheron 07-17-2019 Immature granulocytes (Bld) [#/Vol] NOT REPORTED 0 % [place] US HEAD NECK SOFT TISSUE THY ROIDon 07-14-2019 Stable nodules with no follow-up needed. [place] EXAM: US HEAD NECK S OFT [...] lobe: 4.9 x 1.3 x 1.9 cm. [place] Misha, Mhpn Incoming R adiant Results From [facility] - 07/14/2019 3:21 PM EDT EXAM: US [...] IMPRESSION: Stable nodules with no follow-up needed. [place] TSHon 07-07-2019 TSH Qn 0.78 m[IU]/L Normal 0.44 - 3.98 [facility] Comment on above: Result Comment: TSH testing is performed using different testing methodology at [facility] than at other [facility]. Direct result comparisons should only be made within the same method. . Patients receiving more than 5 mg/day of biotin may have interference in test results. A sample should be taken no sooner than eight hours after previous dose. Contact [phone] for additional information. Performed By: #### T SH2 #### [facility] [address] [place] [address] TSHon 05-25-2019 TSH Qn 0.77 m[IU]/L Normal 0.44 - 3.98 [facility] Comment on above: Result Comment: TSH testing is performed using different testing methodology at [facility] than at [facility]. Direct result comparisons should only be made within the same method. . Patients receiving more than 5 mg/day of biotin may have interference in test results. A sample should be taken no sooner than eight hours after previous dose. Contact [phone] for additional information. Performed By: #### T SH2 #### [facility] [address] [place] [address] TSHon 01-18-2019 TSH Qn 0.75 m[IU]/L Normal 0.44 - 3.98 [facility] Comment on above: Result Comment: TSH testing is performed using different testing methodology at [facility] than at other [facility]. Direct result comparisons should only be made within the same method. . Patients receiving more than 5 mg/day of biotin may have interference in test results. A sample should be taken no sooner than eight hours after previous dose. Contact [phone] for additional information. Performed By: #### T SH2 #### [facility] [address] [place] [address] TSHon 01-10-2019 TSH Qn 1.27 m[IU]/L Normal 0.44 - 3.98 [facility] Comment on above: Result Comment: TSH testing is performed using different testing methodology at [facility] than at other [facility]. Direct result comparisons should only be made within the same method. . Patients receiving more than 5 mg/day of biotin may have interference in test results. A sample should be taken no sooner than eight hours after previous dose. Contact [phone] for additional information. Performed By: #### T SH2 #### [facility] [address] [place] [address] TSHon 12-07-2018 TSH Qn 0.86 m[IU]/L Normal 0.44 - 3.98 [facility] Comment on above: Result Comment: TSH testing is performed using different testing methodology at [facility] than at other [facility]. Direct result comparisons should only be made within the same method. . Patients receiving more than 5 mg/day of biotin may have interference in test results. A sample should be taken no sooner than eight hours after previous dose. Contact [phone] for additional information. Performed By: #### T SH2 #### [facility] [address] [place] [address] EXT LAB FERRITINon 9 Ferritin mass conc 97 ng/mL [facility] External Lab CBC (With or wi thout Diff)on 11-12-2018 Basophils (Bld) [#/Vol] 0.0 10*3/uL [facility] Basophils/100 WBC (Bld) 0.8 % [facility] Eosinophils (Bld) [#/Vol] 0.1 10*3/uL [facility] Eosinophils (Bld) [#/Vol] 2.5 10*3/uL [facility] Erythrocyte distribution width (RBC) [Ratio] 12.8 % [facility] Hematocrit (Bld) [Volume fraction] 39.1 % [facility] Hemoglobin (Bld) [Mass/Vol] 13.2 g/dL [facility] Lymphocytes (Bld) [#/Vol] 1.8 10*3/uL [facility] Lymphocytes (Bld) [#/Vol] 30.4 10*3/uL [facility] MCH (RBC) [Entitic mass] 29.8 pg [facility] MCHC (RBC) [Mass/Vol] 33.7 g/dL [facility] MCV (RBC) [Entitic vol] 88.6 fL [facility] Monocytes (Bld) [#/Vol] 0.4 10*3/uL [facility] Monocytes (Bld) [#/Vol] 7.2 10*3/uL [facility] Neutrophils (Bld) [#/Vol] 59.1 10*3/uL [facility] Neutrophils (Bld) [#/Vol] 3.4 10*3/uL [facility] Platelet mean volume (Bld) [Entitic vol] 7.2 fL [facility] Platelets (Bld) [#/Vol] 308 10*3/uL K/mcL [facility] RBC (Bld) [#/Vol] 4.4 10*6/uL [facility] WBC (Bld) [#/Vol] 5.80 10*3/uL K/mcL [facility] External Lab Comprehensive M etabolic Panelon 11-12-2018 Albumin [Mass/Vol] 4.1 g/dL [facility] Albumin/Globulin [Mass ratio] 1.2 {ratio} [facility] ALP [Catalytic activity/Vol] 52 U/L [facility] ALT [Catalytic activity/Vol] 11 U/L [facility] AST [Catalytic activity/Vol] 15 U/L [facility] Bilirubin Ql (U) 1.0 mg/dL [facility] Calcium [Mass/Vol] 9.5 mg/dL [facility] Chloride [Moles/Vol] 102 mmol/L [facility] Creatinine [Mass/Vol] 0.60 mg/dL [facility] GFR/1.73 sq M predicted among blacks MDRD (S/P/Bld) [Vol rate/Area] [facility] GFR/1.73 sq M predicted among non-blacks MDRD (S/P/Bld) [Vol rate/Area] [facility] Globulin (S) [Mass/Vol] 3.3 g/dL [facility] Glucose [Mass/Vol] 87 mg/dL [facility] HCO3 (Bld) [Moles/Vol] 25 mmol/L [facility] Magnesium [Mass/Vol] [facility] Phosphate [Mass/Vol] mg/dL [facility] Potassium [Moles/Vol] 4.1 mmol/L [facility] Protein [Mass/Vol] 7.4 g/dL [facility] Sodium [Moles/Vol] 137 mmol/L [facility] Urate [Mass/Vol] mg/dL [facility] Urea nitrogen [Mass/Vol] 15 mg/dL [facility] Urea nitrogen/Creatinine [Mass ratio] 25 mg/mg High [facility] External Lab Vitamin D, 25-O Hon 11-12-2018 Vitamin D, 25-OH 55.0 [facility] External Vitamin B12 and Fol ateon 11-12-2018 Cobalamin (Vitamin B12) mass conc 1500 pg/mL Off scale high [facility] Folate 24.8 ng/mL Off scale high [facility] Otheron 11-12-2018 Interpretation and review of laboratory results Abnormal [facility] TSHon 08-13-2018 TSH Qn 0.64 m[IU]/L Normal 0.44 - 3.98 [facility] Comment on above: Order Comment: FXD S TAT TO [phone]; SPOKE W/ALFREDO , 08/12/2018 22:23 Result Comment: TSH testing is performed using different testing methodology at [facility] than at other [facility]. Direct result comparisons should only be made within the same method. . Patients receiving more than 5 mg/day of biotin may have interference in test results. A sample should be taken no sooner than eight hours after previous dose. Contact [phone] for additional information. FXD STAT TO [phone]; SPOKE W/ALFREDO , 08/12/2018 22:23 Performed By: #### T SH2 #### [facility] [address] [place] [address] Vital Signs Date Time Vital Sign Value Performing Clinician Facility 09-12-2019 15:37-0500 BMI (Body Mass Index) 31.06 kg/m2 [facility] 09-12-2019 15:37-0500 Body weight 103.87 kg [facility] 09-12-2019 15:37-0500 BP Diastolic 85 mm[Hg] [facility] 09-12-2019 15:37-0500 BP Systolic 126 mm[Hg] [facility] 09-12-2019 15:37-0500 Height 182.9 cm [facility] 09-12-2019 15:37-0500 Pulse (Heart Rate) 73 /min [facility] 11-08-2017 09:56-0500 BMI (Body Mass Index) 36.08 kg/m2 [facility] Work Phone: 11-08-2017 09:56-0500 BP Diastolic 81 mm[Hg] [facility]: 11-08-2017 09:56-0500 BP Systolic 120 mm[Hg] [facility] Work Phone: 11-08-2017 09:56-0500 Height 182.9 cm [facility] Work Phone: 11-08-2017 09:56-0500 Pulse (Heart Rate) 70 /min [facility] Work Phone: 11-08-2017 09:56-0500 Weight 120.66 kg [facility] Work Phone: 08-09-2017 14:05-0400 BMI (Body Mass Index) 40.01 kg/m2 Behzad Z[facility]ya [facility] Work Phone: 08-09-2017 14:05-0400 Body Temperature 97.5 [degF] Behzad Z[facility]ya [facility] Work Phone: 08-09-2017 14:05-0400 BP Diastolic 74 mm[Hg] Behzad Zacherya [facility] Work Phone: 08-09-2017 14:05-0400 BP Systolic 130 mm[Hg] [facility] Work Phone: 08-09-2017 14:05-0400 Height 182.9 cm [facility] Work Phone: 08-09-2017 14:05-0400 Pulse (Heart Rate) 85 /min [facility] Work Phone: 08-09-2017 14:05-0400 Weight 133.81 kg [facility] Work Phone: 06-01-2017 14:30-0400 BMI (Body Mass Index) 43.26 kg/m2 [facility] Work Phone: 06-01-2017 14:30-0400 Body Temperature 97.81 [degF] [facility] Work Phone: 06-01-2017 14:30-0400 BP Diastolic 82 mm[Hg] [facility] Work Phone: 06-01-2017 14:30-0400 BP Systolic 128 mm[Hg] [facility] Work Phone: 06-01-2017 14:30-0400 Height 182.9 cm [facility] Work Phone: 06-01-2017 14:30-0400 Pulse (Heart Rate) 82 /min Behzad [facility]ya [facility] Work Phone: 06-01-2017 14:30-0400 Weight 144.7 kg [facility] Work Phone: Encounters Encounter Date Encounter Type Care Provider Facility Start: 04-02-2023 End: 04-03-2023 ambulatory [facility] Start: 04-02-2023 End: 04-02-2023 Subsequent hospital visit by physician Loli Matias MD Work Phone: [facility] Laboratory Comment on above: Acquired hypothyroid ism Start: 11-10-2022 End: 11-13-2022 ambulatory [facility] Start: 11-10-2022 End: 11-12-2022 Subsequent hospital visit by physician [facility] Ultrasound Room [facility] Ultrasound Comment on above: Acquired hypothyroid ism Start: 11-06-2022 End: 02-15-[address] DREW MCBRIDE Facility: Start: 01-13-2022 End: 01-15-2022 Subsequent hospital visit by physician Loli Matias MD Work Phone: [facility] Start: 11-19-2020 End: 11-19-2020 Billy Ramirez Work Phone: [facility] Start: 09-20-2019 End: 09-20-2019 Documentation procedure Behzad Rajendrasinh Rana Work Phone: [facility] Start: 09-18-2019 End: 09-18-2019 Documentation procedure Behzad Rajendrasinh Rana Work Phone: [facility] Start: 09-12-2019 End: 09-12-2019 Patient encounter procedure BEHZAD RAJENDRASINH RANA [facility] Ambulatory Start: 09-12-2019 End: 09-12-2019 Office outpatient visit 15 minutes Behzad Rajendrasinh Rana Work Phone: [facility] Comment on above: Bariatric surgery st atus (Primary Dx); Obesity, Class I, BMI 30-34.9 Start: 07-17-2019 End: 07-17-2019 Subsequent hospital visit by physician Loli Matias [facility] Laboratory Comment on above: Epigastric pain; History of pancreatitis Start: 07-14-2019 End: 07-16-2019 Subsequent hospital visit by physician [facility] Ultrasound Room [facility] Ultrasound Comment on above: Thyroid nodule Start: 11-16-2018 End: 11-16-2018 Documentation procedure Behzad Hu Work Phone: [facility] Start: 10-24-2018 End: 10-24-2018 Patient encounter procedure BEHZAD HU [facility] Ambulatory Start: 04-11-2018 End: 04-11-2018 Ambulatory [facility] Start: 11-08-2017 Office/outpatient vi sit, est, level 3 Behzad Berniceharvinder Binghamsamuel Work Phone: [facility] Start: 08-09-2017 End: 08-09-2017 Office outpatient visit 15 minutes Behzad Queenhortensiakristian Zacherysamuel Work Phone: [facility] Comment on above: Bariatric surgery st atus (Primary Dx) Start: 06-01-2017 Postop follow-up visit Behzad majanokristian Mayte Work Phone: [facility] Start: 04-30-2017 End: 05-02-2017 Evaluation and management of inpatient [facility] Start: 04-30-[address] [facility] Start: 04-23-2017 End: 04-27-2017 Ambulatory [facility] Start: 04-05-2012 End: 08-15-2018 Patient encounter procedure Loli Matias MD Work Phone: [facility] Procedures Date Procedure Procedure Detail Performing Clinician Start: 04-02-2023 Assay of thyroid stimulating hormone tsh Loli Matias MD Work Phone: Start: 11-10-2022 Us soft tissue head & neck real time imge docm Nissa Lo APPEALS COORDINATOR - ENDS DOWN CHECKER Work Phone: Start: 09-13-2019 EXT LAB FERRITIN [...] Start: 09-13-2019 EXT LAB VITAMIN D, 25-OH Behzad Hu Work Phone: Start: 09-13-2019 EXT LAB [...] DTaP/Tdap/Td vaccine (3 - Td or Tdap) [facility] Start: 05-30-2024 DTaP/Tdap/Td vaccine (3 - Td) DTaP/Tdap/Td vaccine (3 - Td) [place], [place] Start: 05-30-2024 DTaP/Tdap/Td vaccine (7 - Td or Tdap) DTaP/Tdap/Td vaccine (7 - Td or Tdap) [facility] Start: 05-30-2024 Tetanus vaccination [facility] Start: 03-24-2024 Depression Screen Depression Screen [facility] Start: 11-18-2022 Depression Screen Depression Screen [facility] Start: 11-18-2022 Thyroid stimulating hormone measurement TSH testing [facility] Start: 2021 Diabetes screen Diabetes screen [facility] Start: 03-28-2021 COVID-19 Vaccine (3 - Booster for Moderna series) COVID-19 Vaccine (3 - Booster for Moderna series) [facility] Start: 09-28-2020 Cervical cancer screen Cervical canc er screen [place], [place] Start: 09-28-2020 Screening for malign ant neoplasm of cervix [facility] Start: 06-18-2020 Influenza vaccinatio n given Sequential Influenza Vaccine (#1) [facility] Start: 06-18-2019 Influenza vaccination Flu vaccine (# 1) [place], [place] Start: 06-18-2019 Influenza vaccinatio n given SEQUENTIAL INFLUENZA VACCINE (#1) [facility] Start: 04-24-2019 End: 04-24-2019 Office Visit 04/24/2019 Office Visit Behzad Rockwell MD [address] [place] [address] [phone] [facility] Start: 08-05-2018 TSH testing TSH testing [facility] [place], [place] Start: 06-18-2018 Influenza vaccinatio n given SEQUENTIAL INFLUENZA VACCINE (#1) [facility] Start: 05-02-2018 Ambulatory 05/02/2018 Off ice Visit Behzad Rockwell MD [address] [place] [address] [phone] [facility] Start: 11-01-2017 Ambulatory 11/01/2017 Off ice Visit Behzad Rockwell MD [address] [place] [address] [phone] [facility] Start: 08-02-2017 Ambulatory 08/02/2017 Off ice Visit Behzad Rockwell MD [address] [place] [address] [phone] [facility] Start: 06-18-2017 Influenza vaccination SEQUENTI AL INFLUENZA VACCINE (#1) [facility] Work Phone: Start: 06-18-2017 SEQUENTIAL INFLUENZA VACCINE (#1) SEQUENTIAL INFLUENZA VACCINE (#1) [facility] Work Phone: Start: 2016 Screening for malign ant neoplasm of cervix HPV (without or with Pap) [facility] Start: 2004 Hepatitis C antibody , confirmatory test Hepatitis C Screening [facility] Start: 2004 Hepatitis C screening Hepatitis C sc reen [facility] Start: 10-04-2002 Hepatitis A vaccine (2 of 2 - 2-dose series) Hepatitis A vaccine (2 of 2 - 2-dose series) [facility] Start: 2001 HIV screen HIV screen [facility] [place] Start: 2001 HIV screening [facility] Start: 12-25-1999 Varicella Vaccine (1 of 2 - 13+ 2-dose series) Varicella Vaccine (1 of 2 - 13+ 2-dose series) [place], [place] Start: 1998 Adolescent depressio n screening assessment Depression Screening (PHQ9) [facility] Start: 1989 History and physical examination, annual for health maintenance Wellness Visit [facility] Start: 12-25-1987 Varicella vaccine (1 of 2 - 2-dose childhood series) Varicella vaccine (1 of 2 - 2-dose childhood series) [facility] Start: 1986 Cytopathology procedure, preparation of smear, genital source PAP SMEAR [facility] Work Phone: Start: 1986 Hepatitis C screening Hepatitis C sc reen [facility] Start: 1986 Screening for malign ant neoplasm of cervix PAP SMEAR [facility] Work Phone: Start: 1986 TETANUS EVERY 10 YR TETANUS EVERY 10 YR [facility] Work Phone: Start: 1986 Tetanus vaccination TETANUS EVERY 10 YR [facility] Work Phone: End: 09-12-2020 Blood zinc measurement Zinc Lab Routine Bariatric surgery status 1 Occurrences starting 09/12/2019 until 09/12/2020 [facility] Comment on above: 1 Occurrences starti ng 09/12/2019 until 09/12/2020 End: 08-10-2018 CBC and Differential CBC and Differential Routine Bariatric surgery status 1 Occurrences starting 08/09/2017 until 08/10/2018 [facility] Work Phone: Comment on above: 1 Occurrences starti ng 08/09/2017 until 08/10/2018 End: 08-10-2018 Ceruloplasmin Ceruloplasmin Routine Bariatric surgery status 1 Occurrences starting 08/09/2017 until 08/10/2018 [facility] Work Phone: Comment on above: 1 Occurrences starti ng 08/09/2017 until 08/10/2018 End: 09-12-2020 Cobalamin (Vitamin B12) [Mass/Vol] Vitamin B12 Lab Routine Bariatric surgery status 1 Occurrences starting 09/12/2019 until 09/12/2020 [facility] Comment on above: 1 Occurrences starti ng 09/12/2019 until 09/12/2020 End: 08-10-2018 Cobalamin (Vitamin B12) mass conc Vitamin B12 Routine Bariatric surgery status 1 Occurrences starting 08/09/2017 until 08/10/2018 [facility] Work Phone: Comment on above: 1 Occurrences starti ng 08/09/2017 until 08/10/2018 End: 08-10-2018 Comprehensive metabolic 2000 panel Comprehensive Metabolic Panel Routine Bariatric surgery status 1 Occurrences starting 08/09/2017 until 08/10/2018 [facility] Work Phone: Comment on above: 1 Occurrences starti ng 08/09/2017 until 08/10/2018 External Lab Iron External Lab I amanda Routine 11/12/2018 [facility] End: 08-09-2018 Ferritin [Mass/volume] in Serum or Plasma Ferritin Routine Bariatric surgery status 1 Occurrences starting 08/09/2017 until 08/09/2018 [facility] Work Phone: Comment on above: 1 Occurrences starti ng 08/09/2017 until 08/09/2018 End: 08-10-2018 Folate Folate Routine Bariatric surgery status 1 Occurrences starting 08/09/2017 until 08/10/2018 [facility] Work Phone: Comment on above: 1 Occurrences starti ng 08/09/2017 until 08/10/2018 End: 09-12-2020 Folate [Mass/Vol] Folate Lab Routine Bariatric surgery status 1 Occurrences starting 09/12/2019 until 09/12/2020 [facility] Comment on above: 1 Occurrences starti ng 09/12/2019 until 09/12/2020 End: 08-10-2018 Hemoglobin A1c/Hemoglobin.total mass fraction (Bld) Hemoglobin A1c Routine Bariatric surgery status 1 Occurrences starting 08/09/2017 until 08/10/2018 [facility] Work Phone: Comment on above: 1 Occurrences starti ng 08/09/2017 until 08/10/2018 End: 09-12-2020 Iron measurement Iron Study with Ferritin Lab Routine Bariatric surgery status 1 Occurrences starting 09/12/2019 until 09/12/2020 [facility] Comment on above: 1 Occurrences starti ng 09/12/2019 until 09/12/2020 End: 08-10-2018 Lipid panel Lipid Panel Routine Bariatric surgery status 1 Occurrences starting 08/09/2017 until 08/10/2018 [facility] Work Phone: Comment on above: 1 Occurrences starti ng 08/09/2017 until 08/10/2018 End: 08-10-2018 PTH, Intact PTH, Intact Routine Bariatric surgery status 1 Occurrences starting 08/09/2017 until 08/10/2018 [facility] Work Phone: Comment on above: 1 Occurrences starti ng 08/09/2017 until 08/10/2018 End: 09-12-2020 Pyridoxal 5 phosphate level Vitamin B6 Lab Routine Bariatric surgery status 1 Occurrences starting 09/12/2019 until 09/12/2020 [facility] Comment on above: 1 Occurrences starti ng 09/12/2019 until 09/12/2020 End: 08-10-2018 Reticulocytes panel - Blood Reticulocyte Routine Bariatric surgery status 1 Occurrences starting 08/09/2017 until 08/10/2018 [facility] Work Phone: Comment on above: 1 Occurrences starti ng 08/09/2017 until 08/10/2018 End: 09-12-2020 Thiamine measurement Vitamin B1, Whole Blood Lab Routine Bariatric surgery status 1 Occurrences starting 09/12/2019 until 09/12/2020 [facility] Comment on above: 1 Occurrences starti ng 09/12/2019 until 09/12/2020 End: 08-10-2018 Thyrotropin Qn TSH Routine Bariatric surgery status 1 Occurrences starting 08/09/2017 until 08/10/2018 [facility] Work Phone: Comment on above: 1 Occurrences starti ng 08/09/2017 until 08/10/2018 End: 04-02-2023 Thyroxine (T4) free [Mass/volume] in Serum or Plasma [facility] Comment on above: 1 Occurrences starti ng 04/02/2023 until 04/02/2023 End: 08-10-2018 Vitamin A Vitamin A Routine Bariatric surgery status 1 Occurrences starting 08/09/2017 until 08/10/2018 [facility] Work Phone: Comment on above: 1 Occurrences starti ng 08/09/2017 until 08/10/2018 End: 09-12-2020 Vitamin A measurement Vitamin A Lab Routine Bariatric surgery status 1 Occurrences starting 09/12/2019 until 09/12/2020 [facility] Comment on above: 1 Occurrences starti ng 09/12/2019 until 09/12/2020 End: 08-10-2018 Vitamin B1, Whole Blood Vitamin B1, Whole Blood Routine Bariatric surgery status 1 Occurrences starting 08/09/2017 until 08/10/2018 [facility] Work Phone: Comment on above: 1 Occurrences starti ng 08/09/2017 until 08/10/2018 End: 08-10-2018 Vitamin B6 Vitamin B6 Routine Bariatric surgery status 1 Occurrences starting 08/09/2017 until 08/10/2018 [facility] Work Phone: Comment on above: 1 Occurrences starti ng 08/09/2017 until 08/10/2018 End: 09-12-2020 Vitamin D, 25-hydroxy measurement Vitamin D, Total, 25-OH Lab Routine Bariatric surgery status 1 Occurrences starting 09/12/2019 until 09/12/2020 [facility] Comment on above: 1 Occurrences starti ng 09/12/2019 until 09/12/2020 End: 08-10-2018 Vitamin D, Total, 25-OH Vitamin D, Total, 25-OH Routine Bariatric surgery status 1 Occurrences starting 08/09/2017 until 08/10/2018 [facility] Work Phone: Comment on above: 1 Occurrences starti ng 08/09/2017 until 08/10/2018 End: 08-10-2018 Zinc Zinc Routine Bariatric surgery status 1 Occurrences starting 08/09/2017 until 08/10/2018 [facility] Work Phone: Comment on above: 1 Occurrences starti ng 08/09/2017 until 08/10/2018 Immunizations Immunization Date Immunization Notes Care Provider [facility] 07-23-2022 influenza, injectabl e, quadrivalent, preservative free Loli Matias MD Work Phone: [facility] 09-10-2021 influenza virus vaccine, unspecified formulation Loli Matias MD Work Phone: [facility] Work Phone: 10-28-2020 COVID-19, Moderna, Primary or Immunocompromised, PF, 100mcg/0.5mL Loli Matias MD Work Phone: [facility] Work Phone: 10-28-2020 COVID-19, Pfizer Pur ple top, DILUTE for use, 12+ yrs, 30mcg/0.3mL dose Loli Matias MD Work Phone: [facility] Work Phone: 10-04-2020 COVID-19, Moderna, Primary or Immunocompromised, PF, 100mcg/0.5mL Loli Matias MD Work Phone: [facility] Work Phone: 10-04-2020 COVID-19, Pfizer Pur ple top, DILUTE for use, 12+ yrs, 30mcg/0.3mL dose Loli Matias MD Work Phone: [facility] 08-04-2017 tuberculin skin test ; purified protein derivative solution, intradermal [facility], [place] 08-04-2017 unknown vaccine or immune globulin Loli Matias MD Work Phone: [facility] 05-30-2014 tetanus toxoid, redu rachael diphtheria toxoid, and acellular pertussis vaccine, adsorbed [facility], [place] 04-05-2012 tetanus toxoid, redu rachael diphtheria toxoid, and acellular pertussis vaccine, adsorbed [facility] 04-05-2012 tuberculin skin test ; purified protein derivative solution, intradermal [facility], [place] 02-24-2006 hepatitis B vaccine, pediatric or pediatric/adolescent dosage Loli Matias MD Work Phone: [facility] 10-26-2005 hepatitis B vaccine, pediatric or pediatric/adolescent dosage Loli Matias MD Work Phone: [facility] 09-24-2005 hepatitis B vaccine, pediatric or pediatric/adolescent dosage Loli Matias MD Work Phone: [facility] 04-04-2002 hepatitis A and hepatitis B vaccine Loli Matias MD Work Phone: [facility] 04-04-2002 TD(adult) unspecifie d formulation Loli Matias MD Work Phone: [facility] 01-28-1999 measles, mumps and rubella virus vaccine Loli Matias MD Work Phone: [facility] 04-17-1992 diphtheria, tetanus toxoids and acellular pertussis vaccine, unspecified formulation Loli Matias MD Work Phone: [facility] 05-06-1988 diphtheria, tetanus toxoids and pertussis vaccine Loli Matias MD Work Phone: [facility] 05-06-1988 measles, mumps and rubella virus vaccine Loli Matias MD Work Phone: [facility] 01-01-1988 diphtheria, tetanus toxoids and pertussis vaccine Loli Matias MD Work Phone: [facility] 05-01-1987 diphtheria, tetanus toxoids and pertussis vaccine Loli Matias MD Work Phone: [facility] Payers Date Payer Category Payer Unknown [id number] 2022 Unknown [id number] 2019 Unknown BCBS [place] P PO [id number] 2019-Present [phone] [address] [place] [address] [id number] 2019 Unknown [facility] UMR [place] CE PLUS [id number] 2019-Present [id number] 2018 Unknown [id number] 2018 Private Health Insurance [employer]ET[employer] A ETNA CHOICE POS/POSII/PREMIER CARE/PREMIER CARE PLUS xxxxxxxxxx 2018-Present xxxxxxxxxx [id number] 2018 Private Health Insurance [id number] 2017 Unknown [id number] 2017 Unknown [id number] 1986 Unknown [id number] 1986 Unknown [id number] 1986 Unknown [id number] 1986 Unknown [id number] 1986 Unknown [id number] 1986 Unknown [id number] 1959 Self-pay 1959 Unknown [id number] Unknown [id number] 3 Social History Date Type Detail Facility Start: 06-01-2017 End: 03-24-2023 Tobacco smoking status CTIS Never smoker [facility] Work Phone: Start: 1985 Sex Assigned At Not on file [facility] Work Phone: Start: 04-26-2019 End: 07-17-2019 Alcohol intake No [facility] [place], [place] Start: 09-12-2019 End: 03-24-2023 Alcohol intake Current non-drinker of alcohol (finding) [facility] Start: 09-12-2019 End: 03-24-2023 Tobacco use and exposure Never used [facility] Start: 01-13-2022 Alcohol intake [employer] Work Phone: Start: 11-18-2021 History SDOH Financial 5 [employer] Work Phone: Start: 11-18-2021 End: 03-24-2023 History SDOH Food Worry 1 [facility] Phone: Start: 03-24-2023 History SDOH Financial 4 [employer] Start: 03-24-2023 History SDOH Transpo rt Non-Med 2 [employer] Medical Equipment Procedure Code Equipment Code Equipment Origin al Text Equipment Identifier Dates Kit 4ml Vh S/D Tisseel Frozen - [id number] Start: 04-30-2017 Strip Ech 60 Pranav nf Bovine Dorothy-Strips Dry W/[employer]itas - [id number] Start: 04-30-2017 Kit 4ml Vh S/D Tisseel Frozen - [id number] Start: 04-30-2017 Strip Ech 60 Pranav nf Bovine Dorothy-Strips Dry W/Veritas - [id number] Start: 04-30-2017 Kit 4ml Vh S/D Tisseel Frozen - [id number] Start: 04-30-2017 Strip Ech 60 Pranav nf Bovine Dorothy-Strips Dry W/Veritas - [id number] Start: 04-30-2017 Kit 4ml Vh S/D Tisseel Frozen - [id number] Start: 04-30-2017 Strip Ech 60 Pranav nf Bovine Dorothy-Strips Dry W/Veritas - [id number] Start: 04-30-2017 Kit 4ml Vh S/D Tisseel Frozen - [id number] Start: 04-30-2017 Strip Ech 60 Pranav nf Bovine Dorothy-Strips Dry W/Veritas - [id number] Start: 04-30-2017 Kit 4ml Vh S/D Tisseel Frozen - [id number] Start: 04-30-2017 Comment on above: Description: 8ml use d ( 2-4ml kits) Clarification for billing purpose 8 ml = 4 used 0 wasted Strip Ech 60 Pranav nf Bovine Dorothy-Strips Dry W/Veritas - [id number] Start: 04-30-2017 Comment on above: Description: Charge Only Kit 4ml Vh S/D Tisseel Frozen - [id number] Start: 04-30-2017 Strip Ech 60 Pranav nf Bovine Dorothy-Strips Dry W/Veritas - [id number] Start: 04-30-2017 Kit 4ml Vh S/D Tisseel Frozen - [id number] Start: 04-30-2017 Strip Ech 60 Pranav nf Bovine Dorothy-Strips Dry W/Veritas - [id number] Start: 04-30-2017 Evaluation note Note Date & Type Note Facility Evaluation note Diagnosis Acquired hypothyroidism Unspecified hypothyroidism documented in this encounter [facility] [employer] Phone: Evaluation note Note Date & Type Note Facility Evaluation note Diagnosis Acquired hypothyroidism [facility]specified [facility] B[facility]ric surgery status - P [...] FoundDocuments on File Type Date Recorded 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 Advance Directives and Living Will Latest Code Status on File Code Status Date Activated Date Inactivated Comments Full Code 04/30/2017 12:41 PM 05/02/2017 7:17 PM Documents on File Type Date Recorded 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 [facility] POSTOP BARIATRIC VISIT PATIENT NAME: [...] W/ BIOPSY; Surgeon: Behzad Hu MD; Location: [facility]; Service: GASTRIC SLEEVE BYPASS LAPAROSCOPIC WITH EGD N/A 04/30/2017 Procedure: LAPAROSCOPIC SLEEVE GASTRECTOMY HIATAL HERNIA REPAIR LIVER BIOPSY ESOPHAGOGASTRODUODENOSCOPY; Surgeon: Behzad Hu MD; Location: [facility] Main OR; Service: Social History Social [...] (40 mg total) by mouth daily. pediatric [id number] (flintstones complete) Chew Chew and Swallow Take [...] EDT labs documented in this encounter* Leida Orellnaa MA - 02/13/2019 12:10 PM EDT labs documented in this encounter* Behzad Hu MD - 09/12/2019 4:49 PM EST [facility] POSTOP BARIATRIC VISIT PATIENT NAME: [...] W/ BIOPSY; Surgeon: Behzad Hu MD; Location: [facility]; Service: GASTRIC SLEEVE BYPASS LAPAROSCOPIC WITH EGD N/A 04/30/2017 Procedure: LAPAROSCOPIC SLEEVE GASTRECTOMY HIATAL HERNIA REPAIR LIVER BIOPSY ESOPHAGOGASTRODUODENOSCOPY; Surgeon: Behzad Hu MD; [facility] [facility] Main OR; Service: Social History Socioeconomic [...] file Gets together: Not on file Attends mormon service: Not on file Active member of [...] HEAD/NECK TISSUES,REAL TIME Loli Matias MD [address] [place] [address] Specialty Diagnoses / Procedures Referred By Contac t Referred To Contact Radiology Diagnoses Acquired hypothyroidism Procedures US HEAD NECK SOFT TISSUE THYROID Nissa Lo APRN - JULES [address] [address] Referral ID Status Reason Start Date Expiration Date V isits Requested Visits Authorized [id number] Pending Review 11/09/2022 11/09/2023 1 1 Hospital [...] ALVARADO DO Consulting Physician - CAPRICE GUSTAFSON, [facility] Course Pt is a 33 F [...] All Problems Ovarian dysfunction / SNOMED CT 24836800 / Confirmed Hypothyroidism / SNOMED CT 84278746 / Confirmed Pancreatitis / SNOMED CT 028362617 / Confirmed Physical Examination Vital Signs 07/18/2019 [...] All Problems Ovarian dysfunction / SNOMED CT 95357851 / Confirmed Hypothyroidism / SNOMED CT 39795053 / Confirmed Incomplete miscarriage / SNOMED CT 009051391 / Confirmed missed Pancreatitis / SNOMED CT 898206314 / Confirmed Physical Examination Vital Signs 10/20/2019 [...] All Problems Ovarian dysfunction / SNOMED CT 79645045 / Confirmed Hypothyroidism / SNOMED CT 44105831 / Confirmed Pancreatitis / SNOMED CT 169841066 / Confirmed Physical Examination Vital Signs 07/18/2019 [...] All Problems Ovarian dysfunction / SNOMED CT 03537387 / Confirmed Hypothyroidism / SNOMED CT 14965911 / Confirmed Incomplete miscarriage / SNOMED CT 451594230 / Confirmed missed Pancreatitis / SNOMED CT 717948799 / Confirmed Physical Examination Vital Signs 10/20/2019 [...] section and content) DATE CREATED AUTHOR 04/15/2018 [facility] DATE CREATED AUTHOR AUTHOR'S ORGANIZ ATION 07/23/2019 [facility] DATE CREATED AUTHOR AUTHOR'S ORGANIZ ATION 09/13/2019 [facility] DATE CREATED AUTHOR AUTHOR'S ORGANIZ ATION 06/18/2020 [facility] DATE CREATED AUTHOR AUTHOR'S ORGANIZ [...] HEAD/NECK TISSUES,REAL TIME Loli Matias MD [address] [place] [address] Reason Comments Follow-up GS 04/30/17. Prop wt: 350. 10/24/18 229lbs 09/12/19 wt= 240lbs Reason Onset Date Comments Medication Refill 11/19/2020 Specialty Diagnoses / Procedures Referred By Contac t Referred To Contact Radiology Diagnoses Acquired hypothyroidism Procedures US HEAD NECK SOFT TISSUE THYROID Nissa Lo, APPEALS COORDINATOR - ENDS DOWN CHECKER [address] [place] [address] Referral ID Status Reason Start Date Expiration Date V isits Requested Visits Authorized [id number] Pending Review 11/09/2022 11/09/2023 1 1 Care Teams (unrecognized sec tion and content) Computer Networker Relationship Specialty Start Date End Date Loli Matias MD [address] [place] [id number] PCP - General 07/24/16 Computer Networker Relationship Specialty Start Date End Date Loli Matias MD [address] [place] [id number] PCP - General 07/24/16 Computer Networker Relationship Specialty Start Date End Date Loli Matias MD [address] [place] [address] PCP - General 07/24/16 FOR RECORDS [...] BE BASED ON THE PRIMARY CLINICAL RECORDS. [facility]. provides no warranty or guarantee of the accuracy or completeness of information in this document.
[2024-01-31] MEDS: LIDOCAINE HCL 1% 100 MG/10 ML MDV INJ (07:40)
[2024-01-31] MEDS: 0.9 % SODIUM CHLORIDE 500 ML, LIDOCAINE HCL 20 ML, SODIUM BICARBONATE 10 MEQ INJ (07:41)
== END 2024-01-31 07:30 | disposition home or self-care (01) ==
LOC: VC 07:29
PROVIDERS: PCP Radiology Diagnostic Radiology; Visit Provider Radiology Diagnostic Radiology
DX: I83.813 Varicose veins of bilateral lower extremities with pain (principal)
CPT/HCPCS: 36478

== ENCOUNTER 2024-02-03 07:27 | Outpatient (OUT) | payer OTHER, SELFPAY ==
--- NOTE | 2024-02-03 07:34 | VEIN_ITS ---
Patient Name: SUKHDEV WATERMAN MR#: [id number] : 1985 Exam Date: 02/03/2024 Ordering Doctor: DR DREW MCBRIDE M.D. RADIOLOGY REPORT PROCEDURE: [facility] EST [facility] - OFFICE VISIT FOLLOW UP COMPARISON: [facility], 01/26/2024. PROGRESS NOTES: The patient reports improvement in leg symptoms. There has been interval reduction in varicosities. The patient has followed our recommendations to walk 20-30 minutes once or twice per day since the procedure. Physical exam demonstrates decrease in varicosities of the leg. Persistent superficial varicosities are identified along the legs bilaterally. Review of the ultrasound performed the same day demonstrates occlusive thrombus extending throughout the treated vein(s), see separate report, consistent with a successful ablation. No thrombus extending into or beyond the saphenofemoral junction. The patient expressed a desire to proceed with treatment of bilateral lower extremity incompetent branch saphenous varicosities. The patient was informed that treatment was a process and would require several procedures/sessions. [facility] IM[facility]: 1. Successful ablation of the left great saphenous vein(s). 2. Persistent bilateral varicose veins and lower extremity symptoms. PLAN: Bilateral lower extremity microfoam chemical ablation of branch saphenous varicosities, beginning on right side. Nurse notes, history and physical were reviewed and confirmed, see attached forms. The nurse was present throughout the physical exam and consultation Dictated by: Eder Beltran M.D. on 02/03/2024 at 09:21 Approved by: Eder Beltrna M.D. on 02/03/2024 at 09:23
--- NOTE | 2024-02-03 07:34 | VEIN_ITS ---
Patient Name: SUKHDEV WATERMAN MR#: [id number] : 1985 Exam Date: 02/03/2024 Ordering Doctor: DR DREW MCBRIDE M.D. RADIOLOGY REPORT PROCEDURE: VC EXT VENOUS LT LIMITED COMPARISON: None. INDICATIONS: Phlebitis of superficial vein of lt lower extremity I80.02 TECHNIQUE: Lower extremity arnett scale and Duplex Doppler evaluation of the deep venous system from the inguinal ligament through the calf veins. FINDINGS: REGION: Left lower extremity. THROMBI: Negative for DVT. Heat induced thrombus visualized 1.6cm from the SFJ. Heat induced thrombus extends from groin to distal thigh. COMPRESSIBILITY: Non-compressible segments corresponding to thrombus FLOW: Areas of no flow corresponding to thrombus OTHER: CONCLUSION: 1. Successful post ablation occlusion of left great saphenous vein. Dictated by: Eder Beltran M.D. on 02/03/2024 at 09:21 Approved by: Eder Beltran M.D. on 02/03/2024 at 09:21
--- OUTSIDE RECORDS SUMMARY | 2024-02-03 07:34 | XMS_ITS | CCD ---
Author Organization [facility] Care Team Providers Care Medicaid Billing Specialist Name Role Phone Unavailable Unavailable Unavailable VerLoli [...] Unavaila ble Loli Matias Primary Care Provider [phone] Loli Matias Primary Care Provider [phone] RANA, BEHZAD RAJENDRASINH Attending Unavail able LOLI [...] Propensity to adverse reactions to drug 04-26-2019 [place] (5 sources) levoFLOXacin Drug Allergy 04-26-2019 [place] (3 sources) Penicillins Propensity to adverse reactions to drug 12-01-2011 [place] (3 sources) Seasonal allergy Propensity to adverse reactions to substance 11-18-2021 [facility] (2 sources) Penicillins Propensity to adverse reactions to drug 12-01-2011 [facility] (2 sources) Pollen Propensity to adverse reactions to drug 04-26-2019 [facility] Work Phone: Medications Current Medications Medication Drug [...] Active docusate sodium 50 mg / sennosides, jail 8.6 mg oral tablet (3 sources) take [...] Start: 04-23-2016 take 2 tablets by mo [facility] every eight hours as needed [...] Active Start: 11-18-2021 [facility] daily pantoprazole (PROTONIX) 40 MG tablet [...] Class(es) Dates Sig (Normalized) Sig (Original) pediatric mdhevjjz-xuhj-vcm (flintstones complete) Chew (2 sources) pediatric bqinicke-leel-rgj (flintstones complete) Chew Chew and Swallow Take two daily . Active Pediatric Multivitamin With Iron And Other Minerals Chewable Tablet (1 source) pediatric rckzgbao-wacs-mmm (flintstones complete) Chew Chew and Swallow Take [...] 04-03-2023 Thyroxine, Free 1.4 ng/dL Normal 0.9-1.7 [facility] Comment on above: Performed By: #### F T4 #### [address] [id number] Press Tender: Jarek Branch MD #### TSH #### [facility] [address] [place] [address] Press Tender: Drew Lee MD [facility] TSH [Mass/Vol] 0.83 [facility] Thyroid Stim. Horm.on 2022 Thyroid Stim. Horm. 0.83 uIU/mL Normal 0.30-5.00 [facility] Comment on above: Performed By: #### F T4 #### [address] [place], [place] [id number] Press Tender: Jarek Branch MD #### TSH #### [facility] [address] [place] [address] Press Tender: Drew Lee MD US HEAD NECK SOFT [...] Villafuerte Jr., MD 11/11/22 Final result Normal [facility] No significant findings. No specific follow-up needed. [facility] EXAM: US HEAD NECK S [...] isthmus no longer seen. Thyroid echogenicity normal. [facility] Manny Villafuerte Jr., MD - [...] No significant findings. No specific follow-up needed. [facility] Phone: US HEAD NECK SOFT TISSUE THY ROIDOrdered By: Manny Villafuerte on 11-11-2022 [facility] Phone: US HEAD NECK SOFT TISSUE THY ROIDon 11-10-2022 Radiology Study observation (narrative) [facility] Phone: Coding Summary.on 05-31-2020 Coding Summary. CODING DATE: 020 FINAL [facility] STATUS: Home (Routine DC) PAYOR: Leela GROUPERS: [...] Conception, Retained, Via Natural or Artificial Opening [id number] Control Bleeding in Davie Grijalva MD 05/27/2020 Genitourinary Tract, Via Natural or Artificial Opening [id number] Transfusion of Nonautologous Davie Grijalva MD 05/26/2020 Red Blood Cells into Peripheral Vein, Percutaneous Approach 52907X6 Transfusion of Nonautologous Davie Grijalva MD 05/26/2020 Red Blood Cells into Peripheral Vein, Percutaneous Approach 85534J8 Transfusion of Nonautologous Davie Grijalva MD 05/26/2020 Red Blood Cells into Peripheral Vein, Percutaneous Approach 90620K9 Transfusion of Nonautologous Davie Grijalva MD 05/26/2020 Red Blood Cells into Peripheral Vein, Percutaneous Approach 08675O4 Transfusion of Nonautologous Davie Grijalva MD 05/26/2020 Frozen Plasma into Peripheral Vein, Percutaneous Approach 02221H5 Transfusion of Nonautologous Davie Grijalva MD 05/26/2020 Frozen Plasma into Peripheral Vein, Percutaneous Approach 64339P4 Transfusion of Nonautologous Davie Grijalva MD 05/27/2020 Red Blood Cells into Peripheral Vein, Percutaneous Approach NOTE: The code number assigned matches the documented diagnosis and / or procedure in the patient's chart. However, the narrative phrase printed from the coding software may appear abbreviated, or result in slightly different terminology. Coded By: Rae Milton Date Saved: 05/31/2020 11:44 am Normal [facility] IntraOperative Documentson 0 05-31-2020 IntraOperative Documents [id number]:127 Normal [facility] Consent for Procedure/Surger yon 05-28-2020 Consent for Procedure/Surgery [id number]#[id number]:127 Normal [facility] Discharge Instructionson Discharge Instructions [id number]:127 Normal [facility] Discharge Instructions Given Worseningon 05-28-2020 Discharge Instructions Given Worsening The following Patient Education Materials have been given to the patient: EducationMaterial Normal [facility] History and Physicalon 05-28 History and [...] Davie Grijalva MD, FACOG lkr Dictated: 05/26/2020 #[id number] Typed 05/27/2020 #[id number] cc: Davie Grijalva MD, MICHAEL [facility] Comment on above: Result Comment: Elec tronically Signed By: Rudi GUSTAFSON, Davie Duong\.br\Date and Time Signed: 05/28/20 08:12 EDT Inpatient Clinical Summaryon 05-28-2020 Inpatient Clinical Summary [place] [id number] Clinical Summary Person Information Name: SUKHDEV SCHWARTZ St[facility] Age: 34 Years : 1985 Sex: Female PCP: SONIA GUSTAFSON, LOLI Vela Marital Status: Phone: [phone] Race: White Ethnicity: Non- or Language: Lithuanian Visit Id: Visit Reason: Nausea; Dizziness; Vaginal bleeding; VAG BLEEDING Speciality: Acuity: Other Enc Type: Inpatient Med Service: Obstetrics Arrival: 05/26/2020 11:09:13 Discharge: 05/28/2020 08:40:00 Dispo Type: Home (Routine DC) Address: [address] [id number] Provider Notes: Diagnosis: 1:Miscarriage; 2:Retained products of [...] range between ( 80.0 and 100.0 ) [place] Auto: 6.7 % -- Normal range between ( 4.0 and 14.0 ) MPV: 7.4 fL -- Normal range between ( 6.4 and 10.8 ) Neutro Auto: 68.3 % -- Normal range between ( 36.0 and 75.0 ) Platelet: 278.0 E9/L -- Normal range between ( 150.0 and 500.0 ) WBC: 7.0 E9/L -- Normal range between ( 4.0 and 11.0 ) [place] Absolute: 0.5 E9/L -- Normal range between [...] Follow up: With: Address: When: Dr. Grijalva [phone] Within 1 to 2 weeks Comments: Call for any problems. Patient Education Information: Menorrhagia Normal [facility] Inpatient Patient Summaryon 05-28-2020 Inpatient Patient Summary [place] [id number] Patient Discharge Instructions PERSON INFORMATION Name: SUKHDEV [...] Follow up: With: Address: When: Dr. Grijalva [phone] Within 1 to 2 weeks Comments: Call [...] hospitalization. HOME CARE INSTRUCTIONS ? Only take fqse-fdn-cwkdcsq or prescription medicines as directed by your [...] Document Reviewed: 03/25/2014 ExitCare? Patient Information ?2015 [employer]. This information is not intended to replace advice given to you by your health care provider. Make sure you discuss any questions you have with your health care provider. Medication Leaflets: Thank you for choosing [facility] Normal [facility] IntraOperative Documentson 0 8-11-2020 IntraOperative Documents [id number]:127 Normal [facility] Operative Reporton 0 Operative Report Date [...] Davie Grijalva MD, FACOG lkr Dictated: 05/27/2020 #[id number] Typed: 05/27/2020 #[id number] cc: Davie Grijalva MD, MICHAEL [facility] Comment on above: Result Comment: [...] q6hr, # 15 tab(s), Refills(s) 0, Pharmacy: [facility] #16 Documented Medications Documented Multivitamins: 1 tab(s), [...] list: All Problems Pancreatitis / SNOMED CT 593971018 / Confirmed Incomplete miscarriage / SNOMED CT 391033632 / Confirmed missed Ovarian dysfunction / SNOMED CT 18080051 / Confirmed Hypothyroidism / SNOMED CT 97802294 / Confirmed Resolved: / SNOMED CT 229707109 Resolved: / SNOMED CT 866766116 Resolved: / SNOMED CT 407669082 Resolved: / SNOMED CT 145498961 Physical Examination Intake and Output Denies significant [...] 0 . Respiratory: Adequate air exchange with anabaptism of preoperative function.. Cardiovascular: Cardiovascular function is stable and has returned to preoperative levels.. Neurologic: Pt has returned to preoperative baseline.. Review / Management Condition: Stable. Assessment Anesthetic outcome No anesthetic complications noted. Plan Transfer/ Discharge: Patient can be discharged from PACU when criteria met. Condition good. Normal [facility] Comment on above: Result Comment: Elec [...] q6hr, # 15 tab(s), Refills(s) 0, Pharmacy: [facility] #16 Documented Medications Documented Multivitamins: 1 tab(s), [...] list: All Problems Pancreatitis / SNOMED CT 095440863 / Confirmed Incomplete miscarriage / SNOMED CT 015949150 / Confirmed missed Ovarian dysfunction / SNOMED CT 72410467 / Confirmed Hypothyroidism / SNOMED CT 78498074 / Confirmed Physical Examination Intake and Output [...] (MAY [birth year]:) Respiratory: Adequate air exchange with anabaptism of preoperative function.. Cardiovascular: Cardiovascular function is stable and has returned to preoperative levels.. Neurologic: Pt has returned to preoperative baseline.. Review / Management Condition: Stable. Assessment Anesthetic outcome No anesthetic complications noted. Plan Transfer/ Discharge: Patient can be discharged from PACU when criteria met. Condition good. [facility] Comment on above: Result Comment: [...] Davie Grijalva MD, FACOG gls Dictated: 05/27/2020 #[id number] Typed: 05/27/2020 #[id number] cc: Davei Grijalva MD, FACOG [facility] Comment on above: Result Comment: Elec tronically Signed By: Rudi GUSTAFSON, Davie Duong\.br\Date and Time Signed: 05/28/20 08:11 EDT Consent for Anesthesiaon Consent for Anesthesia [id number]:127 [facility] FSPon 05-27-2020 Fibrin+Fibrinogen fragments (S) [Mass/Vol] <10 Normal <10 [facility] Comment on above: Performed By: #### 1 6773005, 1499663, 1712598, 7914668, 4336676, 3817508, 59585798, 5849444 #### [facility] [address] [place] [address] Fibrin+Fibrinogen fragments (S) [Mass/Vol] <10 Normal <10 [facility] Comment on above: Performed By: #### 1 3204474, 4337392, 6698258, 5157451, 5180441, 5803031, 46508891, 7213011 #### [facility] [address] [place] [address] Fibrin+Fibrinogen fragments (S) [Mass/Vol] <10 Normal <10 [facility] Comment on above: Performed By: #### 1 4431438, 5183200, 9699336, 5924134, 7857488, 1091191, 94852413, 6782772 #### [facility] [address] [place] [address] Fibrinogenon 05-27-2020 Fibrinogen Coag (PPP) [Mass/Vol] 181 mg/dL Low 200-393 [facility] Comment on above: Performed By: #### 1 0051492, 1009733, 6582777, 2870073, 8281841, 0231908, 06054843, 6800298 #### [facility] [address] [place] [address] Fibrinogen Coag (PPP) [Mass/Vol] 178 mg/dL Low 200-393 [facility] Comment on above: Performed By: #### 1 3548265, 7108309, 0648777, 3671457, 0880064, 1129317, 45964574, 4174411 #### [facility] [address] [place] [address]690 Fibrinogen Coag (PPP) [Mass/Vol] 174 mg/dL Low 200-393 [facility] Comment on above: Performed By: #### 1 9568739, 3031776, 3269400, 1096332, 5115011, 1475784, 23886789, 0021118 #### [facility] [address] [place] [address] 65743 Hct & Hgbon 05-27-2020 Hematocrit (Bld) [Volume fraction] 23.9 % Low 34.0-46.0 [facility] Comment on above: Performed By: #### 1 5173064, 8414877, 2460748, 9799496, 7250470, 7819455, 53755011, 1500056 #### [facility] [address] [place] [address]2420 Hemoglobin (Bld) [Mass/Vol] 8.3 g/dL Low 12.0-16.0 [facility] Comment on above: Performed By: #### 1 9336321, 9835509, 6594081, 2022589, 6240186, 6419264, 66448247, 6826845 #### [facility] [address] [place] [address] Hematocrit (Bld) [Volume fraction] 22.4 % Low 34.0-46.0 [facility] Comment on above: Performed By: #### 1 4947693, 7662115, 2367482, 9605330, 2738812, 3687313, 16129605, 5136133 #### [facility] [address] [place] [address]5788 Hemoglobin (Bld) [Mass/Vol] 7.8 g/dL Low 12.0-16.0 [facility] Comment on above: Performed By: #### 1 3802011, 2181385, 2954071, 6884381, 6703186, 9444256, 02042054, 2623422 #### [facility] [address] [place] [address] 16449 Hematocrit (Bld) [Volume fraction] 26.2 % Low 34.0-46.0 [facility] Comment on above: Performed By: #### 1 1879617, 2533712, 1461534, 9641776, 8632112, 5841198, 15871140, 9093710 #### [facility] [address] [place] [address]134 Hemoglobin (Bld) [Mass/Vol] 8.9 g/dL Low 12.0-16.0 [facility] Comment on above: Performed By: #### 1 0752791, 6058513, 5137723, 2466723, 2028818, 7033221, 67578201, 3501748 #### [facility] [address] [place] [address] IntraOperative Documentson 0 05-27-2020 IntraOperative Documents [id number]:127 Normal [facility] Main OR Intraoperative Recor don 05-27-2020 Main OR Intraoperative Record IntraOp Document Type FT Summary Primary Physician: Davie Grijalva MD Finalized Date/Time: 05/27/20 13:44:47 Pt. Name: SUKHDEV SCHWARTZ Antoni Mo/Sex: 1985 Female Med Rec #: [id number] Physician: Davie Grijalva MD Financial #: [id number] Pt. 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 Yes Yes Last [...] Patient Status Stable Skin. Condition Bruised, Intact, Hypoluxo, Description same as preop Warm, and Dry [...] BLANKET MISTRAL AIR Quantity 1 Aid TORSO [[id number]][F] Fluid/[place] [facility] Mistral warming system Setting 43c, high Body Site Upper anterior torso Last Modified By: Rena Castelan RN 05/26/20 20:15:53 Case Comments Finalized By: Juanita Stein CST Document Signatures Signed By: Rena Castelan RN 05/26/20 20:16 Juanita Stein CST 05/27/20 13:44 Normal [facility] PACU Recordon 05-27-2020 PACU Record [id number]:127 Normal [facility] PT & PTTon 05-27-2020 aPTT Coag (PPP) [Time] 24.6 second(s) Low 25.1-36.5 [facility] Comment on above: Order Comment: Order Added by Discern Expert. Result Comment: Hepa rin therapeutic range (represented by Anti-Factor Xa activity of 0.2 - 0.4 U/mL) corresponds to PTT of 56.6 - 109.0 sec. Performed By: #### 1 0251230, 1190657, 3417969, 5181907, 5083438, 5378632, 74547283, 4887966 #### [facility] [address] [place] [address] INR Coag (PPP) [Relative time] 1.1 {INR} [facility] Comment on above: Order Comment: Order Added by Discern Expert. Result Comment: INR results are specifically intended to assess patients stabilized on long-term Anticoagulation therapy suggested INR?s ?Less Intensive Anticoagulation? 2.0 ? 3.0 Conventional Range 3.0 ? 4.5 Performed By: #### 1 1010134, 7423889, 8774217, 0836550, 4075305, 7971180, 48582244, 9560734 #### [facility] [address] [place] [address] PT Coag (PPP) [Time] 12.6 second(s) Normal 10.2-12.9 [facility] Comment on above: Order Comment: Order Added by Discern Expert. Performed By: #### 1 9966438, 4190964, 4109000, 3575126, 7259576, 0058575, 93455178, 1877643 #### [facility] [address] [place] [address] aPTT Coag (PPP) [Time] 25.1 second(s) Normal 25.1-36.5 [facility] Comment on above: Result Comment: Hepa rin therapeutic range (represented by Anti-Factor Xa activity of 0.2 - 0.4 U/mL) corresponds to PTT of 56.6 - 109.0 sec. Performed By: #### 1 8925362, 4609664, 9669924, 5489313, 4306937, 9732234, 29622291, 3436453 #### [facility] [address] [place] [address] INR Coag (PPP) [Relative time] 1.2 {INR} [facility] Comment on above: Result Comment: INR results are specifically intended to assess patients stabilized on long-term Anticoagulation therapy suggested INR?s ?Less Intensive Anticoagulation? 2.0 ? 3.0 Conventional Range 3.0 ? 4.5 Performed By: #### 1 4665845, 1887448, 3417722, 3777684, 9136621, 9003848, 39552970, 6326954 #### [facility] [address] [place] [address] PT Coag (PPP) [Time] 13.5 second(s) High 10.2-12.9 [facility] Comment on above: Performed By: #### 1 1653839, 7800228, 5285255, 9571459, 6170563, 6280499, 17523994, 5793460 #### [facility] [address] [place] [address] aPTT Coag (PPP) [Time] 24.5 second(s) Low 25.1-36.5 [facility] Comment on above: Result Comment: Hepa rin therapeutic range (represented by Anti-Factor Xa activity of 0.2 - 0.4 U/mL) corresponds to PTT of 56.6 - 109.0 sec. Performed By: #### 1 8359920, 1591197, 3705798, 5650033, 1629196, 1191672, 32504394, 9367137 #### [facility] [address] [place] [address] INR Coag (PPP) [Relative time] 1.2 {INR} [facility] Comment on above: Result Comment: INR results are specifically intended to assess patients stabilized on long-term Anticoagulation therapy suggested INR?s ?Less Intensive Anticoagulation? 2.0 ? 3.0 Conventional Range 3.0 ? 4.5 Performed By: #### 1 2704436, 7728170, 1963523, 0444062, 8377794, 8598061, 87300197, 6205889 #### [facility] [address] [place] [address] PT Coag (PPP) [Time] 14.0 second(s) High 10.2-12.9 [facility] Comment on above: Performed By: #### 1 5728235, 6941056, 5575153, 9745433, 0974645, 9891243, 88873024, 0482838 #### [facility] [address] [place] [address] ABO/Rhon 05-26-2020 ABO/Rh Positive [facility] Comment on above: Performed By: #### 1 0875766, 3423981, 4968600, 4477711, 5314464, 0423481, 63189180, 2146346 #### [facility] [address] [place] [address] ABO/Rh History Checkon 05-26 ABO/Rh History Check Verified Hx Blood Type Normal [facility] Comment on above: Performed By: #### 1 1010772, 3026245, 8453470, 1444168, 6089989, 4677659, 82799269, 2548111 #### [facility] [address] [place] [address] 29180 ABSCon 05-26-2020 ABSC Gel Interp Negative Normal [facility] Comment on above: Performed By: #### 1 9073601, 8926568, 9009105, 3541985, 4214490, 1566451, 97341148, 1136007 #### [facility] [address] [place] [address] 71578 Auto Diffon 05-26-2020 Basophils/100 WBC (Bld) 0.8 % Normal 0.0-2.0 [facility] Comment on above: Order Comment: Order Added by Discern Expert. Performed By: #### 1 7926161, 1942832, 7652285, 6676958, 7116172, 3261899, 17003978, 1398677 #### [facility] [address] [place] [address]872 Basophils/Leukocyte s Auto (Bld) [Pure # fraction] 0.1 E9/L Normal 0.0-0.2 [facility] Comment on above: Order Comment: Order Added by Discern Expert. Performed By: #### 1 7658028, 8253390, 5766150, 8279029, 9319894, 2688509, 86470041, 1028121 #### [facility] [address] [place] [address] 06028 Eosinophils/100 WBC (Bld) 2.0 % Normal 0.0-8.0 [facility] Comment on above: Order Comment: Order Added by Discern Expert. Performed By: #### 1 1601083, 1013438, 5560062, 6248548, 3069562, 9462862, 96014420, 5810174 #### [facility] [address] [place] [address] Eosinophils/Leukocy dariel Auto (Bld) [Pure # fraction] 0.1 E9/L Normal 0.0-0.5 [facility] Comment on above: Order Comment: Order Added by Discern Expert. Performed By: #### 1 9907040, 1875286, 1883020, 1933881, 7092306, 6994173, 40383918, 9868658 #### [facility] [address] [place] [address] Lymphocytes/100 WBC (Bld) 22.2 % Normal 14.0-50.0 [facility] Comment on above: Order Comment: Order Added by Discern Expert. Performed By: #### 1 5109356, 4751577, 9966085, 8824228, 8031708, 2542867, 21011868, 0951207 #### [facility] [address] [place] [address] Lymphocytes/Leukocy dariel Auto (Bld) [Pure # fraction] 1.6 E9/L Normal 1.0-4.0 [facility] Comment on above: Order Comment: Order Added by Discern Expert. Performed By: #### 1 8462171, 8510793, 1715309, 6761235, 3618985, 7755701, 01340905, 5875503 #### [facility] [address] [place] [address] 15664 Monocytes/100 WBC (Bld) 6.7 % Normal 4.0-14.0 [facility] Comment on above: Order Comment: Order Added by Discern Expert. Performed By: #### 1 1087225, 4316662, 8909594, 6064301, 1196584, 9001392, 88288886, 5388567 #### [facility] [address] [place] [address] Monocytes/Leukocyte s Auto (Bld) [Pure # fraction] 0.5 E9/L Normal 0.2-1.0 [facility] Comment on above: Order Comment: Order Added by Discern Expert. Performed By: #### 1 1417685, 4562983, 4335074, 5849498, 8577538, 7035677, 79792884, 7510968 #### [facility] [address] [place] [address] Neutrophils/100 WBC (Bld) 68.3 % Normal 36.0-75.0 [facility] Comment on above: Order Comment: Order Added by Discern Expert. Performed By: #### 1 1547727, 4148621, 0313488, 8349448, 4710867, 2201611, 98668776, 1564711 #### [facility] [address] [place] [address] Neutrophils/Leukocy dariel Auto (Bld) [Pure # fraction] 4.8 E9/L Normal 2.0-7.5 [facility] Comment on above: Order Comment: Order Added by Discern Expert. Performed By: #### 1 4811958, 1839439, 1003501, 8309638, 1684322, 5003904, 42531927, 9866678 #### [facility] [address] [place] [address] B hCG Qualon 05-26-2020 Beta hCG Ql Positive Normal [facility] Comment on above: Result Comment: mary ected Performed By: #### 1 9665865, 7403495, 0080424, 2328221, 6382604, 5693755, 66175595, 1165416 #### [facility] [facility] [address] [place] [address] BMPon 05-26-2020 Creatinine [Mass/Vol] 0.7 mg/dL Normal 0.5-1.3 [facility] Comment on above: Performed By: #### 1 4744567, 9137616, 6706430, 0070264, 6412424, 8400753, 82923154, 5460408 #### [facility] [address] [place] [address] Urea nitrogen [Mass/Vol] 15 mg/dL Normal 5-21 [facility] Comment on above: Performed By: #### 1 2030308, 4617039, 0814388, 8505349, 9467817, 4151958, 27440836, 6283234 #### [facility] [address] [place] [address] Urea nitrogen/Creatinine [Mass ratio] 21 No Units High 10-20 [facility] Comment on above: Performed By: #### 1 8459134, 4876579, 6007168, 2172125, 7884660, 2189880, 64794895, 9576413 #### [facility] [address] [place] [address] Anion gap [Moles/Vol] 12 mmol/L Normal 6-16 [facility] Comment on above: Performed By: #### 1 8535052, 5152332, 7052375, 2343075, 0508208, 5106896, 42405422, 8190136 #### [facility] [address] [place] [address] Calcium [Mass/Vol] 9.4 mg/dL Normal 8.9-11.1 [facility] Comment on above: Performed By: #### 1 7115641, 5042313, 8059039, 3832568, 5202293, 7783893, 74215565, 8609842 #### [facility] [address] [place] [address] Chloride [Moles/Vol] 105 mmol/L Normal 101-111 [facility] Comment on above: Performed By: #### 1 2336685, 8174966, 5179305, 3899118, 4082130, 0341363, 45724685, 5942318 #### [facility] [address] [place] [address] CO2 [Moles/Vol] 26 mmol/L Normal 21-31 [facility] Comment on above: Performed By: #### 1 1486692, 8689458, 6020407, 9245059, 9842318, 6795807, 42820604, 0498364 #### [facility] [address] [place] [address] Glucose [Mass/Vol] 101 mg/dL Normal 55-199 [facility] Comment on above: Result Comment: If t his glucose result represents a fasting glucose, interpretation should refer to the following reference range: 55-99 mg/dL Performed By: #### 1 0860614, 9992394, 4572243, 1084489, 2909168, 3359811, 57701268, 3645062 #### [facility] [address] [place] [address] Potassium [Moles/Vol] 3.9 mmol/L Normal 3.5-5.3 [facility] Comment on above: Performed By: #### 1 1997674, 6793459, 4850651, 5274479, 7136064, 3772273, 07694176, 4751795 #### [facility] [address] [place] [address] Sodium [Moles/Vol] 139 mmol/L Normal 135-145 [facility] Comment on above: Performed By: #### 1 4837397, 2327029, 8760243, 8650921, 1004740, 9091607, 66581696, 1004193 #### [facility] [address] [place] [address] [facility] HCG.beta subunit Qn 18 m[IU]/mL High 1-3 [facility] Comment on above: Result Comment: GEST ATIONAL AGE HCG RANGE (mIU/mL) NON- <1-3 0.2-1 WEEKS 5-50 1-2 WEEKS 50-500 2-3 WEEKS 100-5,000 3-4 WEEKS 500-10,000 4-5 WEEKS 1,000-50,000 5-6 WEEKS 10,000-100,000 6-8 WEEKS 15,000-200,000 8-12 WEEKS 10,000-100,000 Performed By: #### 1 6405216, 9209439, 3568266, 9311387, 7669058, 2542128, 42764738, 6695625 #### [facility] [address] [place] [address] Blood Bank ID#on 05-26-2020 BBID# [id number] [facility] Comment on above: Performed By: #### 1 6875593, 6909801, 8570036, 1666193, 2170961, 4685520, 57437328, 8550760 #### [facility] [address] [place] [address] CBC w/ Auto Diffon 0 Erythrocyte distribution width (RBC) [Ratio] 12.4 % Normal 10.9-14.2 [facility] Comment on above: Performed By: #### 1 2637282, 4001550, 9949589, 8526857, 1489974, 2886394, 17409877, 3707175 #### [facility] [address] [place] [address] Hematocrit (Bld) [Volume fraction] 36.6 % Normal 34.0-46.0 [facility] Comment on above: Performed By: #### 1 3576460, 3579465, 8320481, 8851086, 8330880, 2873085, 49721987, 7243415 #### [facility] [address] [place] [address] Hemoglobin (Bld) [Mass/Vol] 12.2 g/dL Normal 12.0-16.0 [facility] Comment on above: Performed By: #### 1 7456594, 8905969, 4608775, 1552865, 8578069, 2467357, 47313601, 6923429 #### [facility] [address] [place] [address] MCH (RBC) [Entitic mass] 29.8 pg Normal 27.0-34.0 [facility] Comment on above: Performed By: #### 1 1181387, 1900022, 6807500, 5665717, 7227622, 5088136, 60540731, 6203517 #### [facility] [address] [place] [address] MCHC (RBC) [Mass/Vol] 33.3 g/dL Normal 31.4-36.0 [facility] Comment on above: Performed By: #### 1 0987239, 5539970, 0618736, 3027141, 8722051, 8578433, 89319677, 4529526 #### [facility] [address] [place] [address] MCV (RBC) [Entitic vol] 89.5 fL Normal 80.0-100.0 [facility] Comment on above: Performed By: #### 1 7601889, 2400909, 7304065, 0079648, 6211391, 2222330, 26572534, 2759101 #### [facility] [address] [place] [address] Platelet mean volume (Bld) [Entitic vol] 7.4 fL Normal 6.4-10.8 [facility] Comment on above: Performed By: #### 1 3569740, 6813059, 4447811, 0027278, 3632664, 3570407, 35500607, 0914370 #### [facility] [address] [place], [place] [address] Platelets (Bld) [#/Vol] 278.0 E9/L Normal 150.0-500.0 [facility] Comment on above: Performed By: #### 1 6504862, 0262297, 3094341, 4851909, 7334776, 4234988, 97989738, 4920307 #### [facility] [address] [place], [place] [address] RBC (Bld) [#/Vol] 4.1 E12/L Low 4.3-5.9 [facility] Comment on above: Performed By: #### 1 3095592, 5112257, 1688669, 3118979, 5486845, 3448865, 03591499, 4448650 #### [facility] [address] [place] [address] WBC corrected for nucl RBC Auto (Bld) [#/Vol] 7.0 E9/L Normal 4.0-11.0 [facility] Comment on above: Performed By: #### 1 3737994, 4597172, 4828654, 3813435, 7783831, 3355429, 79735208, 8835222 #### [facility] [address] [place], [place] [address] Consent for Blood Transfusio non 05-26-2020 Consent for Blood Transfusion [id number]#[id number]:127 Normal [facility] Consent for Treatmenton Consent for Treatment [id number]#1.00CD:127 Normal [facility] ED Clinical Summaryon 2019 ED Clinical Summary (Inserted Image. Sachi ble to display) [address] [address] ED Clinical Summary Person Information Name: SUKHDEV SCHWARTZ Stacey[facility] Age: 34 Years : 1985 Sex: Female Language: Lithuanian PCP: LOLI MATIAS MD Marital Status: Phone: [phone] MRN: Visit Id: Visit Reason: Nausea; Dizziness; [...] 05/26/2020 12:32:48 ADDRESS: [address] [facility] [id number] [facility] DOC NOTES: MEDICAL INFORMATION: Prescriptions Given: [...] Follow up: With: Address: When: Davie Grijalva [facility] [address], [facility] [address], [place] [id number] [facility] (1) 05/27/2020 8:45 AM Comments: Return to ED if symptoms worsen. Drink lots of fluids. Return if you have worsening bleeding, pass out, chest pain, shortnes of breath or any other problems. DIAGNOSIS: 1:Menorrhagia Normal [facility] ED Note-Physicianon 05-26-20 ED Note-Physician Basic [...] % (05/26/20:25:00) Lymph Auto: 22.2 % (05/26/20::) [place] Auto: 6.7 % (05/26/20:25:00) Eos Auto: 2 % (05/26/20::) Basophil Auto: 0.8 % (05/26/20::) Neutro Absolute: 4.8 E9/L (05/26/20:25:00) Lymph Absolute: 1.6 E9/L (05/26/20:25:) [place] Absolute: 0.5 E9/L (05/26/20::) Eos Absolute: 0.1 [...] Ultrasound Performed Signed By: Faraz Carter DO [facility] Comment on above: Result Comment: [...] hospitalization. HOME CARE INSTRUCTIONS ? Only take cpxx-kvb-pyojctp or prescription medicines as directed by your [...] Document Reviewed: 03/25/2014 ExitCare? Patient Information ?2015 [employer]. This information is not intended to replace advice given to you by your health care provider. Make sure you discuss any questions you have with your health care provider. Normal [facility] ED Patient Summaryon 020 ED Patient Summary (Inserted Image. Sachi ble to display) [place] [id number] Patient Discharge Instructions Person Information Name: SUKHDEV SCHWARTZ Age: 34 Years Arrival Date: 05/26/2020 11:09:13 Discharge Diagnosis: 1:Menorrhagia Primary Care Physician: LOLI MATIAS MD Provider Information Primary Provider: Carline Cain DO Advanced Lens Polisher:None The exam and treatment you received in the Emergency Department were for an urgent problem and are not intended as complete care. It is important that you follow up with a doctor, nurse practitioner, or physician?s liaison inspection laboratory assistant for ongoing care. If your symptoms [...] Follow-up Instructions: With: Address: When: Davie ISSA, [facility] [address] [place] [id number] [facility] (1) 05/27/2020 8:45 AM Comments: Return [...] opioids can be used to help relieve yqduyhig-nc-dvmxmy pain and are often prescribed following a [...] be struggling with addiction, tell your health home care aide and ask for guidance or call [facility]?S National Helpline at 6-429-387-ODHJ. v Source: [place] Department of Health and Human Services/Center for Disease Control & Prevention [facility] Medications Given: Medication Dose Route [...] Comment: Pharmacy Information: Thank you for choosing [facility] Patient Education Materials: Menorrhagia Menorrhagia is the [...] hospitalization. HOME CARE INSTRUCTIONS ? Only take blka-ksh-eedhsva or prescription medicines as directed by your [...] Document Reviewed: 03/25/2014 ExitCare? Patient Information ?2015 [employer]. This information is not intended to replace advice given to you by your health care provider. Make sure you discuss any questions you have with your health care provider. JAMES Bain BRITTANY F , have received the following patient education materials/instructions and have verbalized understanding: Patient Education Materials: Menorrhagia Follow-up Instructions: With: Address: When: Davie Grijalva [address] [place] [address], [place] [address], [place] [address] [facility] (1) 05/27/2020 8:45 AM Comments: Return to ED if symptoms worsen. Drink lots of fluids. Return if you have worsening bleeding, pass out, chest pain, shortnes of breath or any other problems. Patient Signature __ Date Clinician/Nurse Signature Date 05/26/2020 12:32:58 Normal [facility] FFPon 05-26-2020 # of Units 2 [facility] Comment on above: Result Comment: 2019 17:56 [id number] Blood product ready and called to Jaki/OB at 05/26/2020 17:56:49 EDT by AL. Performed By: #### 1 8278018, 8447837, 2738288, 4800273, 8578333, 5835946, 88830881, 1422031 #### [facility] [address] [place] [address] Date Required [id number] [facility] Comment on above: Performed By: #### 1 3440284, 0837785, 0820497, 8140672, 2695079, 0068213, 47049867, 6750304 #### [facility] [address] [place] [address] Order to Transfuse YES [facility] Comment on above: Performed By: #### 1 7278897, 4171128, 0279426, 3359982, 3764253, 2734372, 41121513, 0360481 #### [facility] [address] [place] [address] Hematocriton 05-26-2020 Hematocrit (Bld) [Volume fraction] 27.0 % Low 34.0-46.0 [facility] Comment on above: Performed By: #### 1 5400934, 6757230, 6961353, 7921043, 0333440, 8435379, 92793174, 1313339 #### [facility] [address] [place] [address] Hemoglobinon 05-26-2020 Hemoglobin (Bld) [Mass/Vol] 9.0 g/dL Low 12.0-16.0 [facility] Comment on above: Performed By: #### 1 2195184, 1831375, 0364435, 8662966, 8290916, 5825818, 16168215, 5521427 #### [facility] [address] [place] [address] Hep Func Panelon 05-26-2020 Albumin [Mass/Vol] 1.4 g/dL Normal 1.1-2.2 [facility] Comment on above: Performed By: #### 1 1391675, 1079880, 9797203, 2230212, 6736781, 4184130, 31852402, 5248581 #### [facility] [address] [place] [address] Albumin [Mass/Vol] 4.1 g/dL Normal 3.3-5.0 [facility] Comment on above: Performed By: #### 1 7240409, 2075198, 7329408, 3918895, 6138106, 3151046, 28408167, 3160485 #### [facility] [address] [place] [address] ALP [Catalytic activity/Vol] 47 Int._Unit/L Normal 21-98 [facility] Comment on above: Performed By: #### 1 1828437, 2484714, 4101788, 2301538, 6437076, 5401651, 50789197, 8306744 #### [facility] [address] [place] [address] ALT No additional P-5'-P [Catalytic activity/Vol] 10 Int._Unit/L Normal 6-46 [facility] Comment on above: Performed By: #### 1 5432390, 5843448, 5213752, 7927227, 4337932, 5361331, 37514447, 4607552 #### [facility] [address] [place] [address] AST [Catalytic activity/Vol] 12 Int._Unit/L Normal 5-43 [facility] Comment on above: Performed By: #### 1 0189824, 8881994, 1728912, 4155883, 2244353, 4173495, 30622247, 7598682 #### [facility] [address] [place] [address] Bilirubin [Mass/Vol] 0.8 mg/dL Normal 0.0-1.1 [facility] Comment on above: Performed By: #### 1 6859545, 4176253, 9285580, 2925495, 5827058, 9446618, 44673124, 5493760 #### [facility] [address] [place] [address] Bilirubin.direct [Mass/Vol] 0.7 mg/dL Normal 0.1-0.9 [facility] Comment on above: Performed By: #### 1 1178864, 5620537, 5568951, 3636467, 4827962, 3949842, 83419241, 5050994 #### [facility] [address] [place] [address] Bilirubin.direct [Mass/Vol] 0.1 mg/dL Normal 0.1-0.4 [facility] Comment on above: Performed By: #### 1 4352115, 1774120, 5817228, 9935332, 0525526, 5895080, 92605675, 1560735 #### [facility] [address] [place] [address] Globulin (S) [Mass/Vol] 2.9 g/dL Normal 1.4-4.0 [facility] Comment on above: Performed By: #### 1 2430809, 9041615, 0946896, 4734230, 9022456, 7259889, 26146606, 3316404 #### [facility] [address] [place] [address] Protein [Mass/Vol] 7.0 g/dL Normal 6.0-7.8 [facility] Comment on above: Performed By: #### 1 4936812, 7932738, 3302630, 8251549, 9835293, 3827229, 80648531, 1516462 #### [facility] [address] [place] [address] Main OR PACU I Recordon Main OR PACU I Record PACU Phase I Document Type FT Summary Primary Physician: Davie Grijalva MD Finalized Date/Time: 05/26/20 20:48:43 Pt. Name: SUKHDEV SCHWARTZ/Sex: 1985 Female Med Rec #: [id number] Physician: Davie Grijalva MD Financial #: [id number] Pt. Type: O Room/Bed: N410/01 Admit/Disch: 05/26/20 [...] By: Lauren Reed RN 05/26/20 20:48 Normal [facility] Main OR Preoperative Recordo n 05-26-2020 Main OR Preoperative Record Holding Area Document Type FT Summary Primary Physician: Davie Grijalva MD Finalized Date/Time: 05/26/20 20:04:05 Pt. Name: SUKHDEV SCHWARTZ /Sex: 1985 Female Med Rec #: [id number] Physician: Davie Grijalva MD Financial #: [id number] Pt. Type: O Room/Bed: [facility]/ Admit/Disch: 05/26/20 11:09:13 - Institution: Case Times [...] By: Rena Castelan RN 05/26/20 20:04 Normal [facility] Monitor Recordon 05-26-2020 Monitor Record [id number]:127 Normal [facility] Monitor Record [id number]:127 Normal [facility] Monitor Record [id number]#[id number]:127 Normal [facility] Monitor Record [id number]:127 Normal [facility] Monitor Record [id number]#[id number]:127 Normal [facility] Monitor Record [id number]#[id number]:127 Normal [facility] PT & PTTon 05-26-2020 aPTT Coag (PPP) [Time] 30.1 second(s) Normal 25.1-36.5 [facility] Comment on above: Result Comment: Hepa rin therapeutic range (represented by Anti-Factor Xa activity of 0.2 - 0.4 U/mL) corresponds to PTT of 56.6 - 109.0 sec. Performed By: #### 1 0480894, 5649856, 4108915, 9432343, 7832811, 4170000, 55364554, 9200312 #### [facility] [address] [place] [address] INR Coag (PPP) [Relative time] 1.1 {INR} [facility] Comment on above: Result Comment: INR results are specifically intended to assess patients stabilized on long-term Anticoagulation therapy suggested INR?s ?Less Intensive Anticoagulation? 2.0 ? 3.0 Conventional Range 3.0 ? 4.5 Performed By: #### 1 9042717, 2367977, 9260999, 4987015, 1265389, 8994755, 25201184, 0462008 #### [facility] [address] [place] [address] PT Coag (PPP) [Time] 12.5 second(s) Normal 10.2-12.9 [facility] Comment on above: Performed By: #### 1 5787340, 4513850, 3383564, 0450357, 9491289, 7554762, 50877660, 6469372 #### [facility] [address] [place] [address] Progesteroneon 05-26-2020 Progesterone [Mass/Vol] 0.90 ng/mL [facility] Comment on above: Result Comment: REFE RENCE RANGE Males 0.14-2.06 ng/mL Non- Females Follicular 0.10-0.60 ng/mL Luteal 3.00-17.5 ng/mL Midluteal 3.30-18.6 ng/mL Post-Menopausal 0.10-0.40 ng/mL First Trimester 8.30-66.5 ng/mL Second Trimester 18.9-66.1 ng/mL Third Trimester 35.8-312.4 ng/mL Performed By: #### 1 1542297, 5958829, 5713651, 2744453, 7211465, 6989996, 34536699, 8157540 #### [facility] [address] [place] [address] Progress Note-Nurseon 2019 Progress Note-Nurse Blood obtained per Rhoda Grijalva order and patient taken to surgery. Blood given to Lauren in surgery. Normal [facility] Progress Note-Nurse Dr. Grijalva in at [facility] with pelvic tray and patient and patient begin to bleed heavily and pt heart rate decreased to 50's and patient BP registered in the 60's. pt pale and clammy. Pt in Trendelenburg and fluids open wide. Patient blood pressure up to 100's and HR in the 70's and Dr[facility] G[facility] Normal [facility] Progress Note-Nurse Ultrasound at [facility] de to perform beside US Normal [facility] Progress Note-Nurse Patient coloring imp roved at this time and patient VS improved. Dr. Cain aware and awaiting US Normal [facility] Progress Note-Nurse This nurse and Elsie [...] started per Altagracia Godinez. Dr. Cain at [facility]. Patient verbalized she is starting to feel better at this time Normal [facility] Progress Note-Physicianon Progress Note-Physician Patient: SUKHDEV [...] q6hr, # 15 tab(s), Refills(s) 0, Pharmacy: [facility] #16 Documented Medications Documented Multivitamins: 1 tab(s), [...] list: All Problems Pancreatitis / SNOMED CT 835597150 / Confirmed Incomplete miscarriage / SNOMED CT 947692785 / Confirmed missed Ovarian dysfunction / SNOMED CT 16263726 / Confirmed Hypothyroidism / SNOMED CT 91325670 / Confirmed, Active Problems (4) Hypothyroidism Incomplete miscarriage Ovarian dysfunction Pancreatitis Histories Past Medical History: No active or resolved past medical history items have been selected or recorded. Family History: Diabetes mellitus type 2 Mother Thyroid cancer Mother Sister Procedure history: Dilation and curettage ([id number]) on 10/20/2019 at 33 Years. Comments: 10/20/2019 19:10 Kat Rosenbaum RN DILATION & SUCTION CURETTAGE Cholecystectomy ([id number]) on 07/19/2019 at 33 Years. DIAGNOSTIC LAPAROSCOPY [...] 26) Cr 0.7 (MAY 26) . Plan [place] [employer] Anesthesiologists (ASA) physical status classification: Class III, E. Anesthetic Preoperative Plan Anesthesia: General. . Anesthetic plan, risks, benefits, and alternatives discussed with the patient and/or family. Pt. and/or family present and agree to proceed as planned.. Discussed the importance of abstaining from tobacco products, and offered counseling if desired. Normal [facility] Comment on above: Result Comment: Elec tronically Signed By: Jerel Martin JR, DO\.yvonne\Date and Time Signed: 05/26/20 17:16 EDT [facility] 05-26-2020 # of Units 4 [facility] Comment on above: Result Comment: 2019 18:39 [id number] Blood product ready and called to Jaki/OB at 05/26/2020 18:39:16 EDT by AL. Performed By: #### 1 0348434, 2607212, 5804545, 2021102, 5356371, 8926403, 24448945, 9130205 #### [facility] [address] [place] [address] Date Required 05-26-2020 [facility] Comment on above: Performed By: #### 1 4206086, 6679926, 7338941, 3270863, 9222884, 8131065, 00019056, 9251022 #### [facility] [address] [place] [address] Product Type None Required [facility] Comment on above: Performed By: #### 1 9440210, 5709534, 1077880, 2654775, 6302071, 4342647, 96212544, 8856826 #### [facility] [address] [place] [address] # of Units 1 [facility] Comment on above: Result Comment: 2019 16:29 [id number] Blood product ready and called to Lauren at 05/26/2020 16:29:10 EDT by ALElayne Performed By: #### 1 5514451, 0745402, 0302131, 4828885, 8869315, 3502519, 28704223, 9618542 #### [facility] [address] [place] [address] # of Units 2 [facility] Comment on above: Performed By: #### 1 7469428, 0649337, 3198438, 5260107, 2244518, 1191478, 92042857, 9336616 #### [facility] [address] [place], [place] [address] Date Required 05/26/2020 [facility] Comment on above: Performed By: #### 1 0006361, 1902727, 3378607, 3394537, 4329952, 7891881, 14131081, 0154839 #### [facility] [address] [place], [place] [address] Date Required [facility] Comment on above: Performed By: #### 1 4268423, 1130955, 2713230, 1730924, 9783624, 9156687, 07910982, 7650308 #### [facility] [address] [place] [address] Product Type None Required [facility] Comment on above: Performed By: #### 1 7435065, 8726597, 4654707, 9603125, 7552867, 7219326, 97752107, 3604371 #### [facility] [address] [place] [address] # of Units 1 [facility] Comment on above: Result Comment: 2019 15:50 [id number] Blood product ready and called to Topher/ER at 05/26/2020 15:49:51 EDT by AL. Performed By: #### 1 5488152, 9808611, 6193818, 2841747, 1097623, 9306499, 85677871, 4201257 #### [facility] [address] [place] [address] Date Required 05/26/2020 [facility] Comment on above: Performed By: #### 1 2041855, 2006975, 4586640, 8204786, 8541075, 4155721, 49507531, 9154974 #### [facility] [address] [place] [address] Product Type None Required [facility] Comment on above: Performed By: #### 1 [id number], 6511131, 4850503, 9192590, 1443619, 9005105, 98175906, 4005108 #### [facility] [address] [place] [address] US 1st Trimesteron 05-26-2020 US 1st Trimester [...] ? SAB 2 Transabdominal Ultrasound Performed Normal [facility] eGFRon 05-26-2020 GFR/1.73 sq M predicted among blacks MDRD (S/P/Bld) [Vol rate/Area] mL/min/{1.73_m2} Normal >=59 [facility] Comment on above: Order Comment: Order added by Discern Expert. Result Comment: eGFR is race adjusted. AA=. Performed By: #### 1 [id number], 0411060, 2899863, 7936327, 1027082, 4827406, 06086407, 8715720 #### [facility] [address] [place] [address] GFR/1.73 sq M predicted among non-blacks MDRD (S/P/Bld) [Vol rate/Area] mL/min/{1.73_m2} Normal >=59 [facility] Comment on above: Order Comment: Order added by Discern Expert. Result Comment: Warehouse Associate ivan kidney disease could be indicated at eGFR's of less than 60 mL/min/1.73m2. Kidney failure is indicated at less than 15 mL/min/1.73m2. Performed By: #### 1 5190554, 0804532, 1646272, 5956172, 3684665, 0416813, 95995258, 4779359 #### [facility] [address] [place] [address] Coding Summary.on 01-23-2020 Coding Summary. CODING DATE: 020 FINAL [facility] STATUS: Home (Routine DC) PAYOR: Leela ADMIT [...] Milton Date Saved: 01/23/2020 12:44 pm Normal [facility] Estradiolon 01-23-2020 E2 [Mass/Vol] 1822.0 pg/mL [facility] Comment on above: Result Comment: Adul t Female: Follicular phase 12.5 - 166.0 Ovulation phase 85.8 - 498.0 Luteal phase 43.8 - 211.0 Postmenopausal <6.0 - 54.7 1st trimester 215.0 - >4300.0 Girls (1-10 years) 6.0 - 27.0 Mal ECLIA methodology Performed at: [facility] [id number] PhD Subhash Coronel Performed By: #### 1 [id number], 7738351, 7800003, 5787712, 2130198, 1502929, 27879727, 2391676 #### [facility] [address] [place] [address] BhCG Quanton 01-22-2020 [place] [address] m[IU]/mL High 1-3 F [facility] Comment on above: Result Comment: GEST ATIONAL AGE HCG RANGE (mIU/mL) NON- <1-3 0.2-1 WEEKS 5-50 1-2 WEEKS 50-500 2-3 WEEKS 100-5,000 3-4 WEEKS 500-10,000 4-5 WEEKS 1,000-50,000 5-6 WEEKS 10,000-100,000 6-8 WEEKS 15,000-200,000 8-12 WEEKS 10,000-100,000 Performed By: #### 1 4488928, 8816656, 2696561, 7769562, 8645908, 0947410, 63907724, 3770785 #### [facility] [address] [place] [address] Progesteroneon 01-22-2020 Progesterone [Mass/Vol] 21.50 ng/mL [facility] Comment on above: Result Comment: REFE RENCE RANGE Males 0.14-2.06 ng/mL Non- Females Follicular 0.10-0.60 ng/mL Luteal 3.00-17.5 ng/mL Midluteal 3.30-18.6 ng/mL Post-Menopausal 0.10-0.40 ng/mL First Trimester 8.30-66.5 ng/mL Second Trimester 18.9-66.1 ng/mL Third Trimester 35.8-312.4 ng/mL Performed By: #### 1 1769445, 4491351, 5614570, 3731361, 0786381, 8294747, 83410821, 0667340 #### [facility] [address] [place] [address] Coding Summary.on 01-16-2020 Coding Summary. CODING DATE: 020 FINAL [facility] STATUS: Home (Routine DC) PAYOR: Leela ADMIT [...] CphT Date Saved: 01/16/2020 07:40 am Normal [facility] Estradiolon 01-16-2020 E2 [Mass/Vol] 1275.0 pg/mL [facility] Comment on above: Result Comment: Adul t Female: Follicular phase 12.5 - 166.0 Ovulation phase 85.8 - 498.0 Luteal phase 43.8 - 211.0 Postmenopausal <6.0 - 54.7 1st trimester 215.0 - >4300.0 Girls (1-10 years) 6.0 - 27.0 Mal ECLIA methodology Performed at: [facility] [address] [id number] PhD Subhash Coronel Performed By: #### 1 5924270, 0848744, 8621123, 7978786, 0562925, 7040841, 09181600, 5232304 #### [facility] [address] [place] [address] BhCG Quanton 01-15-2020 HCG.beta subunit Qn 4061 m[IU]/mL High 1-3 Fi [facility] Comment on above: Result Comment: GEST ATIONAL AGE HCG RANGE (mIU/mL) NON- <1-3 0.2-1 WEEKS 5-50 1-2 WEEKS 50-500 2-3 WEEKS 100-5,000 3-4 WEEKS 500-10,000 4-5 WEEKS 1,000-50,000 5-6 WEEKS 10,000-100,000 6-8 WEEKS 15,000-200,000 8-12 WEEKS 10,000-100,000 Performed By: #### 1 8200787, 3675167, 5638674, 3392860, 1170660, 2003197, 97142919, 3152324 #### [facility] [address] [place] [address] Progesteroneon 01-15-2020 Progesterone [Mass/Vol] 32.10 ng/mL [facility] Comment on above: Result Comment: REFE RENCE RANGE Males 0.14-2.06 ng/mL Non- Females Follicular 0.10-0.60 ng/mL Luteal 3.00-17.5 ng/mL Midluteal 3.30-18.6 ng/mL Post-Menopausal 0.10-0.40 ng/mL First Trimester 8.30-66.5 ng/mL Second Trimester 18.9-66.1 ng/mL Third Trimester 35.8-312.4 ng/mL Performed By: #### 1 3000037, 4411517, 2211410, 2267505, 2220612, 1449827, 77867960, 7433410 #### [facility] [address] [place] [address] Coding Summary.on 01-09-2020 Coding Summary. CODING DATE: 020 FINAL [facility] STATUS: Home (Routine DC) PAYOR: Leela ADMIT [...] CphT Date Saved: 01/09/2020 07:10 am Normal [facility] Estradiolon 01-09-2020 E2 [Mass/Vol] 572.2 pg/mL [facility] Comment on above: Result Comment: Adul t Female: Follicular phase 12.5 - 166.0 Ovulation phase 85.8 - 498.0 Luteal phase 43.8 - 211.0 Postmenopausal <6.0 - 54.7 1st trimester 215.0 - >4300.0 Girls (1-10 years) 6.0 - 27.0 Mal ECLIA methodology Performed at: [facility] [address] [id number] PhD Subhash Coronel Performed By: #### 1 7476752, 0815728, 0732733, 3307140, 4435128, 4068206, 35208551, 6233759 #### [facility] [address] [place] [address] [facility] HCG.beta subunit Qn 898 m[IU]/mL High 1-[address] [facility] Comment on above: Result Comment: GEST ATIONAL AGE HCG RANGE (mIU/mL) NON- <1-3 0.2-1 WEEKS 5-50 1-2 WEEKS 50-500 2-3 WEEKS 100-5,000 3-4 WEEKS 500-10,000 4-5 WEEKS 1,000-50,000 5-6 WEEKS 10,000-100,000 6-8 WEEKS 15,000-200,000 8-12 WEEKS 10,000-100,000 Performed By: #### 1 1818004, 3226203, 4743451, 9789276, 0009772, 2767124, 45342053, 7134218 #### [facility] [address] [place] [address] Progesteroneon 01-08-2020 Progesterone [Mass/Vol] 27.90 ng/mL [facility] Comment on above: Result Comment: REFE RENCE RANGE Males 0.14-2.06 ng/mL Non- Females Follicular 0.10-0.60 ng/mL Luteal 3.00-17.5 ng/mL Midluteal 3.30-18.6 ng/mL Post-Menopausal 0.10-0.40 ng/mL First Trimester 8.30-66.5 ng/mL Second Trimester 18.9-66.1 ng/mL Third Trimester 35.8-312.4 ng/mL Performed By: #### 1 0288029, 8376714, 2349526, 8636799, 6132215, 3652235, 53528129, 1722994 #### [facility] [address] [place] [address] Coding Summary.on 01-02-2020 Coding Summary. CODING DATE: 020 FINAL [facility] STATUS: Home (Routine DC) PAYOR: [place] ADMIT DX: REASON FOR VISIT DX: Z32.01 [...] CphT Date Saved: 01/02/2020 10:23 am Normal [facility] Estradiolon 01-02-2020 E2 [Mass/Vol] 1694.0 pg/mL [facility] Comment on above: Result Comment: Adul t Female: Follicular phase 12.5 - 166.0 Ovulation phase 85.8 - 498.0 Luteal phase 43.8 - 211.0 Postmenopausal <6.0 - 54.7 1st trimester 215.0 - >4300.0 Girls (1-10 years) 6.0 - 27.0 Mal ECLIA methodology Performed at: [facility] [id number] PhD Subhash Coronel Performed By: #### 1 1039064, 7244827, 5854628, 1045908, 8732151, 8972874, 53233452, 9757292 #### [facility] [address] [place] [address] [facility] Quanton 01-01-2020 HCG.beta subunit Qn 124 m[IU]/mL High 1-[address] [facility] Comment on above: Result Comment: GEST ATIONAL AGE HCG RANGE (mIU/mL) NON- <1-3 0.2-1 WEEKS 5-50 1-2 WEEKS 50-500 2-3 WEEKS 100-5,000 3-4 WEEKS 500-10,000 4-5 WEEKS 1,000-50,000 5-6 WEEKS 10,000-100,000 6-8 WEEKS 15,000-200,000 8-12 WEEKS 10,000-100,000 Performed By: #### 1 2250376, 9352428, 6504152, 5275798, 6470260, 5345745, 54147931, 5872397 #### [facility] [address] [place] [address] Coding Summary.on 01-01-2020 Coding Summary. CODING DATE: 020 FINAL [facility] STATUS: Home (Routine DC) PAYOR: [place] ADMIT DX: REASON FOR VISIT DX: E28.9 [...] CphT Date Saved: 01/01/2020 02:22 pm Normal [facility] Progesteroneon 01-01-2020 Progesterone [Mass/Vol] 23.10 ng/mL [facility] Comment on above: Result Comment: REFE RENCE RANGE Males 0.14-2.06 ng/mL Non- Females Follicular 0.10-0.60 ng/mL Luteal 3.00-17.5 ng/mL Midluteal 3.30-18.6 ng/mL Post-Menopausal 0.10-0.40 ng/mL First Trimester 8.30-66.5 ng/mL Second Trimester 18.9-66.1 ng/mL Third Trimester 35.8-312.4 ng/mL Performed By: #### 1 6756202, 1348057, 7855423, 5861479, 3094292, 9716478, 51290434, 8618602 #### [facility] [address] [place] [address] Coding Summary.on 12-31-2019 Coding Summary. CODING DATE: 020 [facility] STATUS: Home (Routine DC) PAYOR: [place] ADMIT DX: REASON FOR VISIT DX: E28.9 [...] [place]nam Date Saved: 12/31/2019 08:09 am Normal [facility] Estradiolon 12-30-2019 E2 [Mass/Vol] 1478.0 pg/mL [facility] Comment on above: Result Comment: Adul t Female: Follicular phase 12.5 - 166.0 Ovulation phase 85.8 - 498.0 Luteal phase 43.8 - 211.0 Postmenopausal <6.0 - 54.7 1st trimester 215.0 - >4300.0 Girls (1-10 years) 6.0 - 27.0 Mal ECLIA methodology Performed at: [facility] [address] [id number] PhD Subhash Coronel Performed By: #### 1 2158897, 9569946, 2271084, 2384651, 1253514, 4067104, 25400384, 8131884 #### [facility] [address] [place] [address] BhCG Quanton 12-29-2019 HCG.beta subunit Qn 34 m[IU]/mL High 1-3 [facility] Comment on above: Result Comment: GEST ATIONAL AGE HCG RANGE (mIU/mL) NON- <1-3 0.2-1 WEEKS 5-50 1-2 WEEKS 50-500 2-3 WEEKS 100-5,000 3-4 WEEKS 500-10,000 4-5 WEEKS 1,000-50,000 5-6 WEEKS 10,000-100,000 6-8 WEEKS 15,000-200,000 8-12 WEEKS 10,000-100,000 Performed By: #### 1 6328651, 1229972, 2834472, 7924644, 0105562, 6678084, 34577257, 1098649 #### [facility] [address] [place] [address] Progesteroneon 12-29-2019 Progesterone [Mass/Vol] 21.80 ng/mL [facility] Comment on above: Result Comment: REFE RENCE RANGE Males 0.14-2.06 ng/mL Non- Females Follicular 0.10-0.60 ng/mL Luteal 3.00-17.5 ng/mL Midluteal 3.30-18.6 ng/mL Post-Menopausal 0.10-0.40 ng/mL First Trimester 8.30-66.5 ng/mL Second Trimester 18.9-66.1 ng/mL Third Trimester 35.8-312.4 ng/mL Performed By: #### 1 5361145, 2531481, 8648102, 5866919, 3515075, 7668318, 63206269, 6482735 #### [facility] [address] [place] [address] BhCG Quanton 12-27-2019 HCG.beta subunit Qn 19 m[IU]/mL High 1-3 Fish [facility] Comment on above: Result Comment: GEST ATIONAL AGE HCG RANGE (mIU/mL) NON- <1-3 0.2-1 WEEKS 5-50 1-2 WEEKS 50-500 2-3 WEEKS 100-5,000 3-4 WEEKS 500-10,000 4-5 WEEKS 1,000-50,000 5-6 WEEKS 10,000-100,000 6-8 WEEKS 15,000-200,000 8-12 WEEKS 10,000-100,000 Performed By: #### 1 2051548, 8635041, 6342489, 4352920, 1353130, 2288129, 44494381, 3535434 #### [facility] [address] [place] [address] Progesteroneon 12-27-2019 Progesterone [Mass/Vol] 22.60 ng/mL [facility] Comment on above: Result Comment: REFE RENCE RANGE Males 0.14-2.06 ng/mL Non- Females Follicular 0.10-0.60 ng/mL Luteal 3.00-17.5 ng/mL Midluteal 3.30-18.6 ng/mL Post-Menopausal 0.10-0.40 ng/mL First Trimester 8.30-66.5 ng/mL Second Trimester 18.9-66.1 ng/mL Third Trimester 35.8-312.4 ng/mL Performed By: #### 1 2448171, 1459611, 1396791, 7478666, 4586492, 5194577, 82548114, 6470135 #### [facility] [address] [place] [address] Coding Summary.on 12-25-2019 Coding Summary. CODING DATE: 020 FINAL [facility] STATUS: Home (Routine DC) PAYOR: Leela ADMIT [...] CphT Date Saved: 12/22/2019 04:17 pm Normal [facility] Coding Summary. CODING DATE: 020 [facility] STATUS: PAYOR: Leela ADMIT DX: REASON [...] CphT Date Saved: 12/22/2019 04:17 pm Normal [facility] Estradiolon 12-23-2019 E2 [Mass/Vol] 1555.0 pg/mL [facility] Comment on above: Result Comment: Adul t Female: Follicular phase 12.5 - 166.0 Ovulation phase 85.8 - 498.0 Luteal phase 43.8 - 211.0 Postmenopausal <6.0 - 54.7 1st trimester 215.0 - >4300.0 Girls (1-10 years) 6.0 - 27.0 Mal ECLIA methodology Performed at: [facility] [id number] PhD Subhash Coronel Performed By: #### 1 9792748, 1960024, 5635031, 9076898, 5383621, 9201941, 42713318, 1582078 #### [facility] [address] [place] [address] Progesteroneon 12-22-2019 Progesterone [Mass/Vol] 25.40 ng/mL [facility] Comment on above: Result Comment: REFE RENCE RANGE Males 0.14-2.06 ng/mL Non- Females Follicular 0.10-0.60 ng/mL Luteal 3.00-17.5 ng/mL Midluteal 3.30-18.6 ng/mL Post-Menopausal 0.10-0.40 ng/mL First Trimester 8.30-66.5 ng/mL Second Trimester 18.9-66.1 ng/mL Third Trimester 35.8-312.4 ng/mL Performed By: #### 1 3447495, 8561181, 3328687, 8422253, 6710283, 5233070, 20204560, 5936163 #### [facility] [address] [place] [address] Coding Summary.on 12-11-2019 Coding Summary. CODING DATE: 020 FINAL [facility] STATUS: Home (Routine DC) PAYOR: Leela APC [...] CphT Date Saved: 12/11/2019 12:51 pm Normal [facility] Estradiolon 12-09-2019 E2 [Mass/Vol] 1486.0 pg/mL [facility] Comment on above: Result Comment: Adul t Female: Follicular phase 12.5 - 166.0 Ovulation phase 85.8 - 498.0 Luteal phase 43.8 - 211.0 Postmenopausal <6.0 - 54.7 1st trimester 215.0 - >4300.0 Girls (1-10 years) 6.0 - 27.0 Mal ECLIA methodology Performed at: [facility] [id number] PhD Subhash Coronel Performed By: #### 1 2868785, 3106731, 6718492, 5264236, 2280350, 6312085, 88303180, 3653517 #### [facility] [address] [place] [address] LHon 12-09-2019 Lutropin Qn 6.2 m[IU]/mL [facility] Comment on above: Result Comment: Adul t Female: Follicular phase 2.4 - 12.6 Ovulation phase 14.0 - 95.6 Luteal phase 1.0 - 11.4 Postmenopausal 7.7 - 58.5 Performed at: [facility] [id number] PhD Subhash Coronel Performed By: #### 1 0274882, 7049455, 1405233, 3406808, 1137273, 4695081, 14249460, 9526260 #### [facility] [address] [place] [address] Progesteroneon 12-08-2019 Progesterone [Mass/Vol] ng/mL [facility] Comment on above: Result Comment: REFE RENCE RANGE Males 0.14-2.06 ng/mL Non- Females Follicular 0.10-0.60 ng/mL Luteal 3.00-17.5 ng/mL Midluteal 3.30-18.6 ng/mL Post-Menopausal 0.10-0.40 ng/mL First Trimester 8.30-66.5 ng/mL Second Trimester 18.9-66.1 ng/mL Third Trimester 35.8-312.4 ng/mL Performed By: #### 1 2873604, 8117315, 0645598, 2160998, 5741651, 5280072, 74584489, 6916598 #### [facility] [address] [place] [address] US Pelvis Non-OB Completeon 12-08-2019 US Pelvis [...] Transabdominal Ultrasound Performed Transvaginal Ultrasound Performed Normal [facility] US Transvaginal Non-OBon US Transvaginal Non-OB Exam Date/Time: 12/08/2019 07:42 EST Reason for Exam: OVARIAN DYSFUNCTION Report Please refer to prior transabdominal pelvic sonogram report. FINAL REPORT Dictated: 12/08/2019 12:35 pm Citlaly Buchanan MD Signed (Electronic Signature): 12/08/2019 12:35 pm Signed by: Citlaly Buchanan MD Transcribed by: MADISON Technologist: JESSICA Normal [facility] Coding Summary.on 12-05-2019 Coding Summary. CODING DATE: 020 FINAL [facility] STATUS: Home (Routine DC) PAYOR: Leela APC [...] CphT Date Saved: 12/05/2019 10:15 am Normal [facility] Estradiolon 12-05-2019 E2 [Mass/Vol] 1328.0 pg/mL [facility] Comment on above: Result Comment: Adul t Female: Follicular phase 12.5 - 166.0 Ovulation phase 85.8 - 498.0 Luteal phase 43.8 - 211.0 Postmenopausal <6.0 - 54.7 1st trimester 215.0 - >4300.0 Girls (1-10 years) 6.0 - 27.0 Mal ECLIA methodology Performed at: [facility] [address] [id number] PhD Subhash Coronel Performed By: #### 1 8457155, 5654491, 7350601, 3081879, 7116936, 3531577, 02988570, 9953277 #### [facility] [address] [place] [address] LHon 12-05-2019 Lutropin Qn 7.2 m[IU]/mL [facility] Comment on above: Result Comment: Adul t Female: Follicular phase 2.4 - 12.6 Ovulation phase 14.0 - 95.6 Luteal phase 1.0 - 11.4 Postmenopausal 7.7 - 58.5 Performed at: [facility] [address] [id number] PhD Subhash Coronel Performed By: #### 1 5614089, 3333329, 0646864, 1088979, 4073730, 5223502, 49369867, 9323416 #### [facility] [address] [place] [address] Progesteroneon 12-04-2019 Progesterone [Mass/Vol] ng/mL [facility] Comment on above: Result Comment: REFE RENCE RANGE Males 0.14-2.06 ng/mL Non- Females Follicular 0.10-0.60 ng/mL Luteal 3.00-17.5 ng/mL Midluteal 3.30-18.6 ng/mL Post-Menopausal 0.10-0.40 ng/mL First Trimester 8.30-66.5 ng/mL Second Trimester 18.9-66.1 ng/mL Third Trimester 35.8-312.4 ng/mL Performed By: #### 1 8348707, 3718843, 0810021, 8110563, 8565899, 0599298, 98446503, 1889542 #### [facility] [address] [place] [address] US Pelvis Non-OB Completeon 12-04-2019 US Pelvis [...] Comments Transabdominal Ultrasound Performed Transvaginal Ultrasound Performed [facility] US Transvaginal Non-OBon US Transvaginal Non-OB Exam Date/Time: 12/04/2019 07:41 EST Reason for Exam: OVARIAN DYSFUNCTION Report PLEASE REFER TO THE ULTRASOUND PELVIS NON-OB COMPLETE REPORT. FINAL REPORT Dictated: 12/04/2019 9:12 am Go Kaplan M.D. Signed (Electronic Signature): 12/04/2019 9:12 am Signed by: Go Kaplan M.D. Transcribed by: MADISON Technologist: SYBIL [facility] Coding Summary.on 12-01-2019 Coding Summary. CODING DATE: 020 FINAL [facility] STATUS: Home (Routine DC) PAYOR: [place] APC DESCRIPTION 5522 Level 2 Imaging without [...] Hill CphT Date Saved: 12/01/2019 12:45 pm [facility] Estradiolon 12-01-2019 E2 [Mass/Vol] 945.3 pg/mL [facility] Comment on above: Result Comment: Adul t Female: Follicular phase 12.5 - 166.0 Ovulation phase 85.8 - 498.0 Luteal phase 43.8 - 211.0 Postmenopausal <6.0 - 54.7 1st trimester 215.0 - >4300.0 Girls (1-10 years) 6.0 - 27.0 Mal ECLIA methodology Performed at: [facility] [id number] PhD Subhash Coronel Performed By: #### 1 5927901, 2905175, 3719579, 5612009, 3778570, 5248468, 41933717, 1037436 #### [facility] [address] [place] [address] LHon 12-01-2019 Lutropin Qn 6.9 m[IU]/mL [facility] Comment on above: Result Comment: Adul t Female: Follicular phase 2.4 - 12.6 Ovulation phase 14.0 - 95.6 Luteal phase 1.0 - 11.4 Postmenopausal 7.7 - 58.5 Performed at: [facility] [id number] PhD Subhash Coronel Performed By: #### 1 8841307, 5292358, 3867323, 9177886, 9592281, 8867089, 73801619, 5630194 #### [facility] [address] [place] [address] Progesteroneon 11-30-2019 Progesterone [Mass/Vol] 0.10 ng/mL [facility] Comment on above: Result Comment: REFE RENCE RANGE Males 0.14-2.06 ng/mL Non- Females Follicular 0.10-0.60 ng/mL Luteal 3.00-17.5 ng/mL Midluteal 3.30-18.6 ng/mL Post-Menopausal 0.10-0.40 ng/mL First Trimester 8.30-66.5 ng/mL Second Trimester 18.9-66.1 ng/mL Third Trimester 35.8-312.4 ng/mL Performed By: #### 1 4027105, 5531514, 5461964, 0563721, 6101925, 7152289, 53474019, 7752491 #### [facility] [address] [place] [address] US Pelvis Non-OB Completeon 11-30-2019 US Pelvis [...] 11/30/2019 13:21 EST by Go Kaplan M.D. [facility] US Transvaginal Non-OBon US Transvaginal Non-OB Exam Date/Time: 11/30/2019 07:37 EST Reason for Exam: ovarian dysfunction Report PLEASE REFER TO THE ULTRASOUND PELVIS NON-OB COMPLETE REPORT. FINAL REPORT Dictated: 11/30/2019 9:01 am Go Kaplan M.D. Signed (Electronic Signature): 11/30/2019 9:01 am Signed by: Go Kaplan M.D. Transcribed by: MADISON Technologist: JESSICA Normal [facility] Coding Summary.on 11-24-2019 Coding Summary. CODING DATE: 020 [facility] STATUS: Home (Routine DC) PAYOR: [place] APC DESCRIPTION 5522 Level 2 Imaging without [...] CphT Date Saved: 11/24/2019 08:10 am Normal [facility] Estradiolon 11-24-2019 E2 [Mass/Vol] 35.2 pg/mL [facility] Comment on above: Result Comment: [facility] t Female: Follicular phase 12.5 - 166.0 Ovulation phase 85.8 - 498.0 Luteal phase 43.8 - 211.0 Postmenopausal <6.0 - 54.7 1st trimester 215.0 - >4300.0 Girls (1-10 years) 6.0 - 27.0 Mal ECLIA methodology Performed at: [address] [id number] PhD Subhash Coronel Performed By: #### 1 0927782, 7649286, 9397726, 3035391, 8903684, 1151858, 39604853, 5914477 #### [facility] [address] [place] [address] FSH and LHon 11-24-2019 Follitropin Qn 8.7 m[IU]/mL [facility] Comment on above: Result Comment: [facility] t Female: Follicular phase 3.5 - 12.5 Ovulation phase 4.7 - 21.5 Luteal phase 1.7 - 7.7 Postmenopausal 25.8 - 134.8 Performed at: [address] [id number] PhD Subhash Coronel Performed By: #### 1 6459039, 4160100, 2198563, 8917977, 2267122, 0780564, 69217409, 4187841 #### [facility] [address] [place] [address] Lutropin Qn 9.1 m[IU]/mL [facility] Comment on above: Result Comment: [facility] t Female: Follicular phase 2.4 - 12.6 Ovulation phase 14.0 - 95.6 Luteal phase 1.0 - 11.4 Postmenopausal 7.7 - 58.5 Performed By: #### 1 4787105, 4079582, 3571270, 1486476, 2339140, 3620147, 16196574, 1001984 #### [facility] [address] [place] [address] BhCG Quanton 11-23-2019 HCG.beta subunit Qn m[IU]/mL Normal 1-3 [facility] Comment on above: Result Comment: GEST ATIONAL AGE HCG RANGE (mIU/mL) NON- <1-3 0.2-1 WEEKS 5-50 1-2 WEEKS 50-500 2-3 WEEKS 100-5,000 3-4 WEEKS 500-10,000 4-5 WEEKS 1,000-50,000 5-6 WEEKS 10,000-100,000 6-8 WEEKS 15,000-200,000 8-12 WEEKS 10,000-100,000 Performed By: #### 1 5691860, 7747597, 2422807, 2127634, 4188586, 2590535, 02535093, 3525369 #### [facility] [address] [place] [address] Progesteroneon 11-23-2019 Progesterone [Mass/Vol] 0.40 ng/mL [facility] Comment on above: Result Comment: REFE RENCE RANGE Males 0.14-2.06 ng/mL Non- Females Follicular 0.10-0.60 ng/mL Luteal 3.00-17.5 ng/mL Midluteal 3.30-18.6 ng/mL Post-Menopausal 0.10-0.40 ng/mL First Trimester 8.30-66.5 ng/mL Second Trimester 18.9-66.1 ng/mL Third Trimester 35.8-312.4 ng/mL Performed By: #### 1 [id number], [id number], [id number], [id number], [id number], [id number], [id number] #### [facility] [address] [place] [address] TSHon 11-23-2019 TSH Qn 0.76 mcIU/mL Normal 0.34-5.60 [facility] Comment on above: Performed By: #### 1 [id number], [id number], [id number], [id number], [id number], [id number], [id number], [id number] #### [facility] [address] [place] [address] US Pelvis Non-OB Completeon 11-23-2019 US Pelvis [...] Transabdominal Ultrasound Performed Transvaginal Ultrasound Performed Normal [facility] US Transvaginal Non-OBon US Transvaginal Non-OB Exam Date/Time: 11/23/2019 07:40 EST Reason for Exam: OVARIAN DYSFUNCTION Report PLEASE REFER TO THE ULTRASOUND PELVIS NON-OB COMPLETE REPORT. FINAL REPORT Dictated: 11/23/2019 9:26 am Go Kaplan M.D. Signed (Electronic Signature): 11/23/2019 9:26 am Signed by: Go Kaplan M.D. Transcribed by: MADISON Technologist: JESSICA [facility] Coding Summary.on 10-24-2019 Coding Summary. CODING DATE: 020 FINAL [facility] STATUS: Home (Routine DC) PAYOR: Leela APC DESCRIPTION 5414 Level 4 Gynecologic Procedures ADMIT DX: REASON FOR VISIT DX: O02.1 Missed FINAL DX: PRINCIPAL: O02.1 Missed SECONDARY: I10 Essential (primary) hypertension E03.9 Hypothyroidism, unspecified PYMT PROC APC STAT DESCRIPTION DOCTOR NAME DATE 74481 5414 J1 Treatment of missed Davie Grijalva MD 10/20/2019 , completed surgically; first trimester 03122 Anesthesia for Davie Eaton Jr, DO 10/20/2019 incomplete or missed procedures NOTE: The code number assigned matches the documented diagnosis and / or procedure in the patient's chart. However, the narrative phrase printed from the coding software may appear abbreviated, or result in slightly different terminology. Revised Coded By: Althea Ortega Revised Date Saved: 10/24/2019 02:47 pm [facility] Main OR Intraoperative Recor don 10-23-2019 Main OR Intraoperative Record IntraOp Document Type FT Summary Primary Physician: Davie Grijalva MD Finalized Date/Time: 10/23/19 11:48:56 Pt. Name: SUKHDEV SCHWARTZ/Sex: 1985 Female Med Rec #: [id number] Physician: Davie Grijalva MD Financial #: [id number] Pt. Type: A Room/Bed: Admit/Disch: 10/20/19 12:59:16 - 10/20/19 16:25:00 Institution: Case Times FT Entry 1 Patient Times In Room 10/20/19 14:00:00 Out Room 10/20/19 14:34:00 Procedure Times Start 10/20/19 14:19:00 Stop 10/20/19 14:25:00 Anesthesia Times Start 10/20/19 14:00:00 Stop 10/20/19 14:34:00 Last Modified By: Nona Cuellar RN 10/20/19 14:34:06 General Comments: 10/23/2019 Chart opened to review and send charges Hilda Stein FOOD AND NUTRITION SUPERVISOR Case Attendance FT Entry 1 Entry 2 Entry 3 Case Attendee Carlito OVALLES, Geri Grijalva MD, Davie Castelan RN, Rena Role Performed Anesthesiologist Surgeon - Primary Prison Librarian - Primary Supercharge Repair Supervisor Time In 10/20/19 14:00:00 10/20/19 14:16:00 10/20/19 14:00:00 Time Out 10/20/19 14:34:00 10/20/19 14:26:00 10/20/19 14:34:00 Procedure DILATATION and SUCTION DILATATION and SUCTION DILATATION and SUCTION CURETTAGE(.) CURETTAGE(.) CURETTAGE(.) Comments DR EATON SUPERVISING Last Modified By: Polo RN, Nona Cuellar RN, Nona Contreras RN 10/20/19 14:35:30 10/20/19 14:35:30 10/20/19 14:35:30 Entry 4 Entry 5 Case Attendee Polo GOODRICH, Nona Crook FOOD AND NUTRITION SUPERVISOR, Mónica Role Performed Prison Librarian - Primary Scrub - Primary Time In [...] and tissue Entry 1 Skin Integrity Intact, Hypoluxo, Warm, and Skin Abnormality No Dry Outcomes [...] Cuellar RN, Hord RN, Abby, Costello Crook FOOD AND NUTRITION SUPERVISOR, Mónica FOOD AND NUTRITION SUPERVISOR, Mónica Outcomes Met? Yes Yes Last Modified By: [place] bishop RN, RN, Emily A 10/20/19 14:21:22 [...] RN Patient Status Stable Skin. Condition Intact, Hypoluxo, Warm, and Dry Airway Maintenance Oxygen in Use? Yes Airway Device Simple Mask Flow Rate 8 L/min Outcomes Met? Yes Last Modified By: Nona Cuellar RN 10/20/19 14:35:23 Post-Care Text: The patient is free from signs and symptoms of injury related to transfer/transport General Comments: report given to open hearth furnace operator helperElayne mayo rn Dressing/Packing FT Pre-Care Text: Administers [...] STRAIGHT Present Upon Arrival No Inserted 16FR [[id number]][F] Insertion Date/Time 10/20/19 14:15:00 Insertion Site Uretheral [...] BLANKET MISTRAL AIR Quantity 1 Aid TORSO [[id number]][F] Fluid/[place] [facility] Mistral warming system Setting high/43 Body Site Upper anterior torso Last Modified By: Nona Cuellar RN 10/20/19 13:54:58 Case Comments Finalized By: Juanita Stein CST Document Signatures Signed By: Nona Cuellar RN 10/20/19 14:35 Juanita Stein CST 10/23/19 11:48 Normal [facility] Operative Reporton 0 Operative Report Date [...] Davie Grijalva MD, FACOG gls Dictated: 10/20/2019 #[id number] Typed: 10/23/2019 #[id number] cc: Davie Grijalva MD, FACOG [facility] Comment on above: Result Comment: [...] Davie Grijalva MD, FACOG cr Dictated: 10/20/2019 #[id number] Typed: 10/21/2019 #[id number] cc: Davie Grijalva MD, FACISRAEL [facility] Comment on above: Result Comment: [...] All Problems Ovarian dysfunction / SNOMED CT 34926878 / Confirmed Hypothyroidism / SNOMED CT 54462098 / Confirmed Incomplete miscarriage / SNOMED CT 743598126 / Confirmed missed Pancreatitis / SNOMED CT 601695315 / Confirmed Histories Past Medical History: No active or resolved past medical history items have been selected or recorded. Family History: Diabetes mellitus type 2 Mother Thyroid cancer Mother Sister Procedure history: Cholecystectomy ([id number]) on 07/19/2019 at 33 Years. DIAGNOSTIC LAPAROSCOPY [...] results Radiology results ECG interpretation Condition Plan [place] Society of Anesthesiologists (ASA) physical status classification: Class II. Anesthetic Preoperative Plan Anesthesia: General. . Anesthetic plan, risks, benefits, and alternatives discussed with the patient and/or family. Risks discussed: nausea, vomiting, headache, sore throat, dental injury, serious complications. Patient verbalized understanding. Communication: face to face with (patient 5 minutes, Pt educated on the importance of smoking cessation.). [facility] Comment on above: Result Comment: Elec tronically Signed By: Davie Eaton Jr, DO\doyle\Date and Time Signed: 10/23/19 07:34 EST Coding Summary.on 10-20-2019 Coding Summary. 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 [...] Hill CphT Date Saved: 10/20/2019 09:01 am [facility] History and Physicalon 10-20 History [...] Davie Grijalva MD, FACOG gls Dictated: 10/20/2019 #[id number] Typed 10/20/2019 #[id number] cc: Davie Grijalva MD, FACOG Normal [facility] Comment on above: Result Comment: Elec tronically Signed By: Rudi GUSTAFSON, Davie Duong\.br\Date and Time Signed: 10/20/19 10:15 EST Inpatient Patient Summaryon 10-20-2019 Inpatient Patient Summary [place] [id number] [facility] Clinical Discharge Instructions PERSON INFORMATION Name: SUKHDEV SCHWARTZ [facility]#:[id number] PHYSICIANS Admitting Physician: Davie Grijalva MD Attending Physician: Davie Grijalva MD PCP: LOLI MATIAS MD Discharge Diagnosis: Hypothyroidism; Incomplete miscarriage; Status post dilation and curettage Comment: PATIENT EDUCATION INFORMATION Instructions: Post Op Patient Instructions - FT (CUSTOM); SALVAGER HELPER - Post D&C, Hysteroscopy, LEEP or Essure/Laparoscopy (CUSTOM) Medication Leaflets: Follow up: With: Address: When: Davie Grijalva [address] [place] [address] Business (1) Comments: Call for any problems. MEDICATION LIST New Medications [facility] [address] [place], [place] [phone], [phone] ibuprofen (ibuprofen 600 mg Tab) 1 Tablets [...] Mouth 2 times a day. Comment: Normal [facility] Main OR PACU I Recordon Main OR PACU I Record PACU Phase I Document Type FT Summary Primary Physician: Davie Grijalva MD Finalized Date/Time: 10/20/19 14:55:25 Pt. Name: SEN SCHWARTZTRUMAN Cote/Sex: 1985 Female Med Rec #: [id number] Physician: Davie Grijalva MD Financial #: [id number] Pt. Type: A Room/Bed: 05/18 Admit/Disch: 10/20/19 [...] By: Carin Iverson RN 10/20/19 14:55 Normal [facility] Main OR Preoperative Recordo n 10-20-2019 Main OR Preoperative Record PreOp Document Type FT Summary Primary Physician: Davie Grijalva MD Finalized Date/Time: 10/20/19 14:24:04 Pt. Name: SUKHDEV SCHWARTZ/Sex: 1985 Female Med Rec #: [id number] Physician: Davie Grijalva MD Financial #: [id number] Pt. Type: A Room/Bed: [facility] Admit/Disch: 10/20/19 12:59:16 - Institution: [...] By: Nona Cuellar RN 10/20/19 14:24 Normal [facility] Patient Education - Texton 0 10-20-2019 [...] cramps. PLEASE CALL FOR ANY PROBLEMS Normal [facility] Coding Summary.on 10-19-2019 Coding Summary. 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 [...] CphT Date Saved: 10/19/2019 12:19 pm Normal [facility] RPRon 10-19-2019 Reagin Ab RPR Ql (S) Non-Reactive Normal Non-Reactiv e [facility] Comment on above: Performed By: #### 1 [id number], 7914356, 6693198, 9523588, 5221505, 1219759, 12622109, 6729220 #### [facility] [address] [place] [address] ABO/Rh Retypeon 10-17-2019 ABO/Rh Retype Interp Positive [facility] Comment on above: Performed By: #### 1 4405125, 5826577, 1722616, 2728760, 2615479, 2056231, 97495015, 0424158 #### [facility] [address] [place] [address] BUNon 10-17-2019 Urea nitrogen [Mass/Vol] 12 mg/dL Normal 5-21 [facility] Comment on above: Performed By: #### 1 1684189, 5748778, 8845098, 5207616, 2989356, 6551714, 97292377, 8809418 #### [facility] [address] [place] [address] CBC w/Indiceson 10-17-2019 Erythrocyte distribution width (RBC) [Ratio] 12.7 % Normal 10.9-14.2 [facility] Comment on above: Performed By: #### 1 6428748, 6625655, 8754640, 5098591, 5084083, 1228537, 07929767, 3568679 #### [facility] [address] [place] [address] Hematocrit (Bld) [Volume fraction] 34.6 % Normal 34.0-46.0 [facility] Comment on above: Performed By: #### 1 5599361, 0364911, 1716298, 2713109, 7275144, 6816087, 09723450, 3966352 #### [facility] [address] [place] [address] Hemoglobin (Bld) [Mass/Vol] 11.7 g/dL Low 12.0-16.0 [facility] Comment on above: Performed By: #### 1 7388057, 6314685, 3195800, 2870833, 7567037, 2707511, 72827298, 3425282 #### [facility] [address] [place], [place] [address] MCH (RBC) [Entitic mass] 30.7 pg Normal 27.0-34.0 [facility] Comment on above: Performed By: #### 1 1854514, 8121110, 0708642, 0239405, 4370849, 3605606, 36547553, 1112406 #### [facility] [address] [place] [address] MCHC (RBC) [Mass/Vol] 33.8 g/dL Normal 31.4-36.0 [facility] Comment on above: Performed By: #### 1 1089356, 3032739, 6119626, 8865237, 6785073, 1587220, 79881500, 5350738 #### [facility] [address] [place] [address] MCV (RBC) [Entitic vol] 90.8 fL Normal 80.0-100.0 [facility] Comment on above: Performed By: #### 1 7441173, 3142003, 3186707, 4586167, 4577041, 0448906, 34842491, 6192316 #### [facility] [address] [place] [address] Platelet mean volume (Bld) [Entitic vol] 7.5 fL Normal 6.4-10.8 [facility] Comment on above: Performed By: #### 1 5109987, 2230544, 2310067, 5481908, 4095470, 1274274, 97112545, 9118782 #### [facility] [address] [place] [address] Platelets (Bld) [#/Vol] 319.0 E9/L Normal 150.0-500.0 [facility] Comment on above: Performed By: #### 1 2622034, 1033929, 1059377, 0780117, 3973037, 8639131, 11305742, 7020019 #### [facility] [address] [place] [address] RBC (Bld) [#/Vol] 3.8 E12/L Low 4.3-5.9 [facility] Comment on above: Performed By: #### 1 6132843, 0362915, 1649359, 2143574, 4249408, 5298000, 72244917, 9638404 #### [facility] [address] [place] [address] WBC corrected for nucl RBC Auto (Bld) [#/Vol] 6.1 E9/L Normal 4.0-11.0 [facility] Comment on above: Performed By: #### 1 0568213, 2581805, 3497124, 5777637, 7465215, 4222764, 96010937, 5551475 #### [facility] [address] [place] [address] Creatinineon 10-17-2019 Creatinine [Mass/Vol] 0.6 mg/dL Normal 0.5-1.3 [facility] Comment on above: Performed By: #### 1 2031251, 8773964, 8745232, 8362821, 0964139, 0943202, 83198314, 2149256 #### [facility] [address] [place] [address] Lyteson 10-17-2019 Anion gap [Moles/Vol] 12 mmol/L Normal 6-16 [facility] Comment on above: Performed By: #### 1 4439927, 1269091, 1335718, 6142424, 6748952, 2914590, 83441759, 8136218 #### [facility] [address] [place] [address] Chloride [Moles/Vol] 109 mmol/L Normal 101-111 [facility] Comment on above: Performed By: #### 1 4116959, 1699219, 9609704, 0239185, 8168881, 7892550, 63948108, 1552412 #### [facility] [address] [place] [address] CO2 [Moles/Vol] 26 mmol/L Normal 21-31 [facility] Comment on above: Performed By: #### 1 9849386, 0825564, 5071196, 6487678, 2243117, 6712040, 83456175, 8512046 #### [facility] [address] [place] [address] Potassium [Moles/Vol] 4.3 mmol/L Normal 3.5-5.3 [facility] Comment on above: Performed By: #### 1 1173895, 4319947, 8241395, 8852728, 6169521, 7444988, 27872442, 0238556 #### [facility] [address] [place] [address] Sodium [Moles/Vol] 143 mmol/L Normal 135-145 [facility] Comment on above: Performed By: #### 1 0650782, 8629057, 1590818, 4429742, 7825757, 9119432, 31745622, 7863881 #### [facility] [address] [place] [address] PT & PTTon 10-17-2019 aPTT Coag (PPP) [Time] 29.9 second(s) Normal 25.1-36.5 [facility] Comment on above: Result Comment: Hepa rin therapeutic range (represented by Anti-Factor Xa activity of 0.2 - 0.4 U/mL) corresponds to PTT of 56.6 - 109.0 sec. Performed By: #### 1 3883980, 1458296, 4431948, 0069775, 2469967, 9092843, 95605793, 5669980 #### [facility] [address] [place] [address] INR Coag (PPP) [Relative time] 1.0 {INR} [facility] Comment on above: Result Comment: INR results are specifically intended to assess patients stabilized on long-term Anticoagulation therapy suggested INR?s ?Less Intensive Anticoagulation? 2.0 ? 3.0 Conventional Range 3.0 ? 4.5 Performed By: #### 1 7705667, 9532795, 7112335, 0523291, 4100912, 9322560, 98579622, 4251528 #### [facility] [address] [place] [address] PT Coag (PPP) [Time] 11.0 second(s) Normal 10.2-12.9 [facility] Comment on above: Performed By: #### 1 2801874, 6718617, 5164547, 3140778, 3244988, 2115908, 65689345, 4273128 #### [facility] [address] [place] [address] eGFRon 10-17-2019 GFR/1.73 sq M predicted among blacks MDRD (S/P/Bld) [Vol rate/Area] mL/min/{1.73_m2} Normal >=59 [facility] Comment on above: Order Comment: Order added by Discern Expert. Result Comment: eGFR is race adjusted. AA=. Performed By: #### 1 3243766, 2680355, 5826183, 3375174, 0684158, 7564416, 38481567, 9747537 #### [facility] [address] [place] [address] GFR/1.73 sq M predicted among non-blacks MDRD (S/P/Bld) [Vol rate/Area] mL/min/{1.73_m2} Normal >=59 [facility] Comment on above: Order Comment: Order added by Discern Expert. Result Comment: Warehouse Associate ivan kidney disease could be indicated at eGFR's of less than 60 mL/min/1.73m2. Kidney failure is indicated at less than 15 mL/min/1.73m2. Performed By: #### 1 0096080, 1495596, 4908316, 3708619, 4878936, 5954358, 56483881, 2754058 #### [facility] [address] [place] [address] Coding Summary.on 10-12-2019 Coding Summary. 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 [...] CphT Date Saved: 10/12/2019 12:46 pm Normal [facility] BhCG Quanton 10-09-2019 HCG.beta subunit Qn 1862 m[IU]/mL High 1-3 [facility] Comment on above: Result Comment: GEST ATIONAL AGE HCG RANGE (mIU/mL) NON- <1-3 0.2-1 WEEKS 5-50 1-2 WEEKS 50-500 2-3 WEEKS 100-5,000 3-4 WEEKS 500-10,000 4-5 WEEKS 1,000-50,000 5-6 WEEKS 10,000-100,000 6-8 WEEKS 15,000-200,000 8-12 WEEKS 10,000-100,000 Performed By: #### 1 9098489, 7517061, 1266622, 5919234, 7639030, 7468272, 84495260, 7125420 #### [facility] [address] [place] [address] Coding Summary.on 10-06-2019 Coding Summary. CODING DATE: 019 FINAL [facility] STATUS: Home (Routine DC) PAYOR: [...] CphT Date Saved: 10/06/2019 12:45 pm Normal [facility] US 1st Trimesteron 10-06-2019 US 1st [...] Size < Dates Uterus Position Anteverted Normal [facility] US Transvaginalon 10-06-2019 US Transvaginal Exam Date/Time: 10/05/2019 13:36 EST Reason for Exam: possible ectopic Report PLEASE REFER TO THE ULTRASOUND FIRST TRIMESTER REPORT. FINAL REPORT Dictated: 10/06/2019 10:35 am Go Kaplan M.D. Signed (Electronic Signature): 10/06/2019 10:35 am Signed by: Go Kaplan M.D. Transcribed by: MADISON Technologist: COREY Normal [facility] BhCG Quanton 10-05-2019 HCG.beta subunit Qn 1726 m[IU]/mL High 1-3 Fi [facility] Comment on above: Result Comment: GEST ATIONAL AGE HCG RANGE (mIU/mL) NON- <1-3 0.2-1 WEEKS 5-50 1-2 WEEKS 50-500 2-3 WEEKS 100-5,000 3-4 WEEKS 500-10,000 4-5 WEEKS 1,000-50,000 5-6 WEEKS 10,000-100,000 6-8 WEEKS 15,000-200,000 8-12 WEEKS 10,000-100,000 Performed By: #### 2 389210 ####[facility] [address] [place] [address] Coding Summary.on 10-04-2019 Coding Summary. CODING DATE: 019 [facility] STATUS: Home (Routine DC) PAYOR: Commercial [...] CphT Date Saved: 10/04/2019 02:19 pm Normal [facility] Estradiolon 10-04-2019 E2 [Mass/Vol] 189.4 pg/mL [facility] Comment on above: Result Comment: Adul t Female: Follicular phase 12.5 - 166.0 Ovulation phase 85.8 - 498.0 Luteal phase 43.8 - 211.0 Postmenopausal <6.0 - 54.7 1st trimester 215.0 - >4300.0 Girls (1-10 years) 6.0 - 27.0 Mal ECLIA methodology Performed at: [facility] [id number] PhD Subhash Coronel Performed By: #### 2 719998, 7748458, 29992952, 2949048 ####[facility] [address] [place] [address] FSH and LHon 10-04-2019 Follitropin Qn 4.6 m[IU]/mL [facility] Comment on above: Result Comment: [facility] Female: Follicular phase 3.5 - 12.5 Ovulation phase 4.7 - 21.5 Luteal phase 1.7 - 7.7 Postmenopausal 25.8 - 134.8 Performed at: [facility] [id number] PhD Subhash Coronel Performed By: #### 2 970261, 4511450, 02726457, 8500588 ####[facility] [address] [place] [address] Lutropin Qn 10.0 m[IU]/mL [facility] Comment on above: Result Comment: [facility] Female: Follicular phase 2.4 - 12.6 Ovulation phase 14.0 - 95.6 Luteal phase 1.0 - 11.4 Postmenopausal 7.7 - 58.5 Performed By: #### 2 290673, 1644198, 64075331, 0262987 ####[facility] [address] [place] [address] BhCG Quanton 10-03-2019 HCG.beta subunit Qn 1625 m[IU]/mL High 1-3 [facility] Comment on above: Result Comment: GEST ATIONAL AGE HCG RANGE (mIU/mL) NON- <1-3 0.2-1 WEEKS 5-50 1-2 WEEKS 50-500 2-3 WEEKS 100-5,000 3-4 WEEKS 500-10,000 4-5 WEEKS 1,000-50,000 5-6 WEEKS 10,000-100,000 6-8 WEEKS 15,000-200,000 8-12 WEEKS 10,000-100,000 Performed By: #### 2 186046 ####[facility] [address] [place] [address] Progesteroneon 10-03-2019 Progesterone [Mass/Vol] 7.80 ng/mL [facility] Comment on above: Result Comment: REFE RENCE RANGE Males 0.14-2.06 ng/mL Non- Females Follicular 0.10-0.60 ng/mL Luteal 3.00-17.5 ng/mL Midluteal 3.30-18.6 ng/mL Post-Menopausal 0.10-0.40 ng/mL First Trimester 8.30-66.5 ng/mL Second Trimester 18.9-66.1 ng/mL Third Trimester 35.8-312.4 ng/mL Performed By: #### 2 196898, 4715656, 06402621, 5795036 ####[facility] [address] [place] [address] TSHon 10-03-2019 TSH Qn 0.84 mcIU/mL Normal 0.34-5.60 [facility] Comment on above: Performed By: #### 2 507610, 3049100, 02544258, 6754091 ####[facility] [address] [place] [address] Coding Summary.on 09-28-2019 Coding Summary. CODING DATE: 019 [facility] STATUS: Home (Routine DC) PAYOR: Commercial [...] Chau Date Saved: 09/28/2019 01:08 pm Normal [facility] BhCG Quanton 09-27-2019 HCG.beta subunit Qn 579 m[IU]/mL High 1-[address] [facility] Comment on above: Result Comment: GEST ATIONAL AGE HCG RANGE (mIU/mL) NON- <1-3 0.2-1 WEEKS 5-50 1-2 WEEKS 50-500 2-3 WEEKS 100-5,000 3-4 WEEKS 500-10,000 4-5 WEEKS 1,000-50,000 5-6 WEEKS 10,000-100,000 6-8 WEEKS 15,000-200,000 8-12 WEEKS 10,000-100,000 Performed By: #### 2 035066 ####[facility] [address] [place] [address] External Lab Vitamin B6on Vitamin B6 4.4 [facility] Vitamin Aon 09-20-2019 Vitamin A 75.2 [facility] Vitamin B1on 09-20-2019 Thiamine (Vitamin B1) 116.7 [facility] Zincon 09-20-2019 Zinc 97 [facility] Coding Summary.on 09-18-2019 Coding Summary. CODING DATE: 019 [facility] STATUS: Home (Routine DC) PAYOR: Commercial [...] CphT Date Saved: 09/18/2019 01:21 pm Normal [facility] EXT LAB FERRITINon 9 Ferritin [Mass/Vol] 55 ng/mL [facility] ealth External Lab Ironon 09-18-20 19 Iron [Mass/Vol] 89 ug/dL mcg/mL [facility] h External Lab Vitamin D, 25-O Hon 09-18-2019 Vitamin D, 25-[place] 43.9 [facility] External Vitamin B12 and Fol ateon 09-18-2019 Cobalamin (Vitamin B12) [Mass/Vol] 291 pg/mL [facility] Folate 22.3 ng/mL Off scale high [facility] Interpretation and review of laboratory results Abnormal [facility] Vit Aon 09-18-2019 Retinol [Mass/Vol] 75.2 microgram/dL High 18.9-57.3 [facility] Comment on above: Result Comment: Refe [...] the Food and Drug Administration. Performed at: [address] [id number] MD Keegan Limon Performed By: #### 2 811087, 4410539, 0201247, 8517683, 569825086, 14026111, 80471015, 03417304, 63851678 ####[facility] [address] [place] [address] Vit B1on 09-18-2019 Thiamine (Bld) [Moles/Vol] 116.7 nmol/L 66.5-200.0 [facility] Comment on above: Result Comment: This test was developed and its performance characteristics determined by [facility]. It has not been cleared or approved by the Food and Drug Administration. Performed at: [address] [id number] MD Keegan Limon Performed By: #### 2 088704, 0848980, 0052985, 6626336, 502197750, 28061793, 15196858, 41091115, 75507744 ####[facility] [address] [place] [address] Vitamin B6on 09-18-2019 Pyridoxine [Mass/Vol] 4.4 microgram/L 2.0-32.8 [facility] Comment on above: Result Comment: This test was developed and its performance characteristics determined by [facility]. It has not been cleared or approved by the Food and Drug Administration. Performed at: [address] [id number] MD Keegan Limon Performed By: #### 2 509099, 3167130, 8795417, 3617341, 379075174, 39559399, 99985324, 27825608, 95240952 ####[facility] [address] [place] [address] Zinc Lvlon 09-18-2019 Zinc [Mass/Vol] 97 microgram/dL 56-134 [facility] Comment on above: Result Comment: This test was developed and its performance characteristics determined by [employer] It has not been cleared or approved by the Food and Drug Administration. Detection Limit = 5 Performed at: [facility] [id number] MD Keegan Limon Performed By: #### 2 355007, 7971243, 4186236, 5839862, 354078666, 78314888, 19147436, 10231280, 78668875 ####[facility] [address] [place] [address] Coding Summary.on 09-15-2019 Coding Summary. 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 [...] CphT Date Saved: 09/15/2019 02:01 pm Normal [facility] Estradiolon 09-14-2019 E2 [Mass/Vol] 929.6 pg/mL [facility] Comment on above: Result Comment: Adul t Female: Follicular phase 12.5 - 166.0 Ovulation phase 85.8 - 498.0 Luteal phase 43.8 - 211.0 Postmenopausal <6.0 - 54.7 1st trimester 215.0 - >4300.0 Girls (1-10 years) 6.0 - 27.0 Mal ECLIA methodology Performed at: [facility] [id number] PhD Subhash Coronel Performed By: #### 2 652425, [id number] ####[facility] [address] [place] [address] BhCG Quanton 09-13-2019 HCG.beta subunit Qn 132 m[IU]/mL High 1-3 [facility] Comment on above: Result Comment: GEST ATIONAL AGE HCG RANGE (mIU/mL) NON- <1-3 0.2-1 WEEKS 5-50 1-2 WEEKS 50-500 2-3 WEEKS 100-5,000 3-4 WEEKS 500-10,000 4-5 WEEKS 1,000-50,000 5-6 WEEKS 10,000-100,000 6-8 WEEKS 15,000-200,000 8-12 WEEKS 10,000-100,000 Performed By: #### 1 4490605, 4712124, 0494335, 2214870, 8275808, 6349870, 55704014, 6451103 #### [facility] [address] [place] [address] Ferritinon 09-13-2019 Ferritin [Mass/Vol] 55 ng/mL Normal 11-307 [facility] Comment on above: Result Comment: NORM ALS MEN <30 YRS 16-132 ng/mL MEN >30 YRS 8-338 ng/mL WOMEN (PREMEN) 6-104 ng/mL WOMEN (POSTMEN) 12-210 ng/mL Performed By: #### 1 0178224, 3112691, 7957259, 4972383, 4159990, 1183998, 60698246, 7905265 #### [facility] [address] [place] [address] Folateon 09-13-2019 Folate [Mass/Vol] ng/mL Normal >=6.7 [facility] Comment on above: Performed By: #### 1 1780105, 0909281, 6712063, 0214486, 3589245, 8224718, 90626126, 1125589 #### [facility] [address] [place] [address] Ironon 09-13-2019 Iron [Mass/Vol] 89 microgram/dL Normal 35-153 [facility] Comment on above: Performed By: #### 1 0983182, 7665561, 2645733, 3704247, 5040683, 1793089, 95616944, 0695122 #### [facility] [address] [place] [address] Progesteroneon 09-13-2019 Progesterone [Mass/Vol] 29.00 ng/mL [facility] Comment on above: Result Comment: REFE RENCE RANGE Males 0.14-2.06 ng/mL Non- Females Follicular 0.10-0.60 ng/mL Luteal 3.00-17.5 ng/mL Midluteal 3.30-18.6 ng/mL Post-Menopausal 0.10-0.40 ng/mL First Trimester 8.30-66.5 ng/mL Second Trimester 18.9-66.1 ng/mL Third Trimester 35.8-312.4 ng/mL Performed By: #### 2 202365, 7924681 ####[facility] [address] [place] [address] Vit B12on 09-13-2019 Cobalamin (Vitamin B12) [Mass/Vol] 291 pg/mL Normal 50-1500 [facility] Comment on above: Performed By: #### 2 469355, 7096907, 4086734, 6588150, 541673418, 97180192, 37385581, 79023072, 96981738 ####[facility] [address] [place] [address] Vitamin D 25 Hydroxyon 09-13 Calcidiol [Mass/Vol] 43.9 ng/mL Normal 30.0-100.0 [facility] Comment on above: Result Comment: Vit hutchinson D deficiency has been defined as a level of serum 25-OH vitamin D less than 20 ng/mL (1,2) by the [place] of [employer] and an Endocrine Society practice guideline. The Endocrine Society further defined vitamin D insufficiency as a level between 21 and 29 ng/mL (2). 1. IOM ([place] of Medicine). 2010. Dietary reference intakes for calcium and D. [place]: The National Academies Press. 2. Isaías MF, Reany NC, Foreign HUERTA, et al. Evaluation, treatment, and prevention of vitamin D deficiency: an Endocrine Society clinical practice guideline. JCEM. 2010; 96 (7):1911-30. Performed By: #### 2 516503, 9218013, 1782488, 2515191, 294510949, 77452952, 35804797, 82707276, 23957732 ####[facility] [address] [place] [address] Coding Summary.on 09-12-2019 Coding Summary. CODING DATE: 019 [facility] STATUS: Home (Routine DC) PAYOR: Commercial [...] CphT Date Saved: 09/12/2019 07:36 am Normal [facility] Estradiolon 09-12-2019 E2 [Mass/Vol] 1006.0 pg/mL [facility] Comment on above: Result Comment: Adul t Female: Follicular phase 12.5 - 166.0 Ovulation phase 85.8 - 498.0 Luteal phase 43.8 - 211.0 Postmenopausal <6.0 - 54.7 1st trimester 215.0 - >4300.0 Girls (1-10 years) 6.0 - 27.0 Mal ECLIA methodology Performed at: [facility] [address] [id number] PhD Subhash Coronel Performed By: #### 1 7048268, 7966204, 5524860, 2075014, 8057039, 5541613, 47596941, 6495457 #### [facility] [address] [place] [address] [facility] Quanton 09-11-2019 HCG.beta subunit Qn 121 m[IU]/mL High 1-3 [facility] Comment on above: Result Comment: GEST ATIONAL AGE HCG RANGE (mIU/mL) NON- <1-3 0.2-1 WEEKS 5-50 1-2 WEEKS 50-500 2-3 WEEKS 100-5,000 3-4 WEEKS 500-10,000 4-5 WEEKS 1,000-50,000 5-6 WEEKS 10,000-100,000 6-8 WEEKS 15,000-200,000 8-12 WEEKS 10,000-100,000 Performed By: #### 1 3699165, 3878067, 6918918, 5033185, 7309564, 1372510, 29684094, 5843662 #### [facility] [address] [place] [address] Progesteroneon 09-11-2019 Progesterone [Mass/Vol] 26.60 ng/mL [facility] Comment on above: Result Comment: REFE RENCE RANGE Males 0.14-2.06 ng/mL Non- Females Follicular 0.10-0.60 ng/mL Luteal 3.00-17.5 ng/mL Midluteal 3.30-18.6 ng/mL Post-Menopausal 0.10-0.40 ng/mL First Trimester 8.30-66.5 ng/mL Second Trimester 18.9-66.1 ng/mL Third Trimester 35.8-312.4 ng/mL Performed By: #### 1 7833284, 3109556, 9484775, 8623633, 1717147, 7881544, 13315638, 5232072 #### [facility] [address] [place] [address] TSHon 09-11-2019 TSH Qn 0.88 mcIU/mL Normal 0.34-5.60 [facility] Comment on above: Performed By: #### 1 4533064, 3195728, 7360798, 8644792, 0795526, 2286348, 94032105, 0254765 #### [facility] [address] [place] [address] Coding Summary.on 09-10-2019 Coding Summary. 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 [...] Putnam Date Saved: 09/10/2019 02:11 pm Normal [facility] Lipase Levelon 09-08-2019 Lipase [Catalytic activity/Vol] U/L High 13-58 [facility] Comment on above: Result Comment: conf irmed by dilution Performed By: #### 1 2661755, 4003134, 3532475, 2257355, 9733533, 4668322, 50110151, 9428480 #### [facility] [address] [place] [address] BhCG Quanton 09-07-2019 HCG.beta subunit Qn 90 m[IU]/mL High 1-3 [facility] Comment on above: Result Comment: GEST ATIONAL AGE HCG RANGE (mIU/mL) NON- <1-3 0.2-1 WEEKS 5-50 1-2 WEEKS 50-500 2-3 WEEKS 100-5,000 3-4 WEEKS 500-10,000 4-5 WEEKS 1,000-50,000 5-6 WEEKS 10,000-100,000 6-8 WEEKS 15,000-200,000 8-12 WEEKS 10,000-100,000 Performed By: #### 1 7294968, 0168336, 2186656, 2401902, 4380134, 7582833, 15427611, 2656745 #### [facility] [address] [place] [address] Progesteroneon 09-07-2019 Progesterone [Mass/Vol] 23.40 ng/mL [facility] Comment on above: Result Comment: REFE RENCE RANGE Males 0.14-2.06 ng/mL Non- Females Follicular 0.10-0.60 ng/mL Luteal 3.00-17.5 ng/mL Midluteal 3.30-18.6 ng/mL Post-Menopausal 0.10-0.40 ng/mL First Trimester 8.30-66.5 ng/mL Second Trimester 18.9-66.1 ng/mL Third Trimester 35.8-312.4 ng/mL Performed By: #### 1 8929004, 7545161, 7309336, 2040582, 7474072, 4141731, 14644976, 2516053 #### [facility] [address] [place] [address] Coding Summary.on 09-05-2019 Coding Summary. CODING DATE: 019 [facility] STATUS: Home (Routine DC) PAYOR: Commercial [...] CphT Date Saved: 09/05/2019 01:07 pm Normal [facility] Estradiolon 09-05-2019 E2 [Mass/Vol] 799.5 pg/mL [facility] Comment on above: Result Comment: Adul t Female: Follicular phase 12.5 - 166.0 Ovulation phase 85.8 - 498.0 Luteal phase 43.8 - 211.0 Postmenopausal <6.0 - 54.7 1st trimester 215.0 - >4300.0 Girls (1-10 years) 6.0 - 27.0 Mal ECLIA methodology Performed at: [facility] [id number] PhD Subhash Coronel Performed By: #### 1 3862462, 8167507, 3541701, 2269485, 9515073, 9944154, 70180880, 4028296 #### [facility] [address] [place] [address] Progesteroneon 09-04-2019 Progesterone [Mass/Vol] 39.30 ng/mL [facility] Comment on above: Result Comment: REFE RENCE RANGE Males 0.14-2.06 ng/mL Non- Females Follicular 0.10-0.60 ng/mL Luteal 3.00-17.5 ng/mL Midluteal 3.30-18.6 ng/mL Post-Menopausal 0.10-0.40 ng/mL First Trimester 8.30-66.5 ng/mL Second Trimester 18.9-66.1 ng/mL Third Trimester 35.8-312.4 ng/mL Performed By: #### 1 0509718, 9950322, 0130748, 9913116, 5267070, 3425529, 94589535, 9824406 #### [facility] [address] [place] [address] TSHon 09-04-2019 TSH Qn 0.83 mcIU/mL Normal 0.34-5.60 [facility] Comment on above: Performed By: #### 1 8730839, 7821209, 6450618, 6710273, 1973710, 1382792, 10082765, 6604882 #### [facility] [address] [place] [address] Coding Summary.on 08-23-2019 Coding Summary. 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 [...] CphT Date Saved: 08/23/2019 01:15 pm Normal [facility] Estradiolon 08-23-2019 E2 [Mass/Vol] 903.5 pg/mL [facility] Comment on above: Result Comment: Adul t Female: Follicular phase 12.5 - 166.0 Ovulation phase 85.8 - 498.0 Luteal phase 43.8 - 211.0 Postmenopausal <6.0 - 54.7 1st trimester 215.0 - >4300.0 Girls (1-10 years) 6.0 - 27.0 Mal ECLIA methodology Performed at: [facility] [id number] PhD Subhash Coronel Performed By: #### 1 3171014, 6414628, 1839132, 1218840, 0856725, 7575445, 67166089, 9993795 #### [facility] [address] [place] [address] LHon 08-23-2019 Lutropin Qn 7.7 m[IU]/mL [facility] Comment on above: Result Comment: Adul t Female: Follicular phase 2.4 - 12.6 Ovulation phase 14.0 - 95.6 Luteal phase 1.0 - 11.4 Postmenopausal 7.7 - 58.5 Performed at: [facility] [id number] PhD Subhash Coronel Performed By: #### 1 5574718, 7557805, 8178755, 7381093, 0685279, 6838950, 40620650, 9893532 #### [facility] [address] [place] [address] Progesteroneon 08-22-2019 Progesterone [Mass/Vol] ng/mL [facility] Comment on above: Result Comment: REFE RENCE RANGE Males 0.14-2.06 ng/mL Non- Females Follicular 0.10-0.60 ng/mL Luteal 3.00-17.5 ng/mL Midluteal 3.30-18.6 ng/mL Post-Menopausal 0.10-0.40 ng/mL First Trimester 8.30-66.5 ng/mL Second Trimester 18.9-66.1 ng/mL Third Trimester 35.8-312.4 ng/mL Performed By: #### 1 6375691, 6476550, 9316214, 8814160, 8765873, 9604370, 54463364, 8408172 #### [facility] [address] [place] [address] Coding Summary.on 08-16-2019 Coding Summary. 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 [...] SantiagoTeri Date Saved: 08/16/2019 02:00 pm Normal [facility] Estradiolon 08-16-2019 E2 [Mass/Vol] 52.3 pg/mL [facility] Comment on above: Result Comment: Adul t Female: Follicular phase 12.5 - 166.0 Ovulation phase 85.8 - 498.0 Luteal phase 43.8 - 211.0 Postmenopausal <6.0 - 54.7 1st trimester 215.0 - >4300.0 Girls (1-10 years) 6.0 - 27.0 Mal ECLIA methodology Performed at: [address] [id number] PhD Subhash Coronel Performed By: #### 1 9497163, 2285909, 4028042, 5955786, 2747539, 8927979, 37856213, 9898032 #### [facility] [address] [place] [address] FSH and LHon 08-16-2019 Follitropin Qn 7.9 m[IU]/mL [facility] Comment on above: Result Comment: [facility] t Female: Follicular phase 3.5 - 12.5 Ovulation phase 4.7 - 21.5 Luteal phase 1.7 - 7.7 Postmenopausal 25.8 - 134.8 Performed at: [address] [id number] PhD Subhash Coronel Performed By: #### 1 8082528, 8164501, 0190943, 4080743, 7190938, 8205471, 48627645, 3302236 #### [facility] [address] [place] [address] Lutropin Qn 9.8 m[IU]/mL [facility] Comment on above: Result Comment: [facility] t Female: Follicular phase 2.4 - 12.6 Ovulation phase 14.0 - 95.6 Luteal phase 1.0 - 11.4 Postmenopausal 7.7 - 58.5 Performed By: #### 1 6809117, 7808140, 6048045, 7716024, 5155280, 3432641, 48034724, 6326597 #### [facility] [address] [place] [address] BhCG Quanton 08-15-2019 HCG.beta subunit Qn m[IU]/mL Normal 1-3 [facility] Comment on above: Result Comment: GEST ATIONAL AGE HCG RANGE (mIU/mL) NON- <1-3 0.2-1 WEEKS 5-50 1-2 WEEKS 50-500 2-3 WEEKS 100-5,000 3-4 WEEKS 500-10,000 4-5 WEEKS 1,000-50,000 5-6 WEEKS 10,000-100,000 6-8 WEEKS 15,000-200,000 8-12 WEEKS 10,000-100,000 Performed By: #### 1 2170678, 0940308, 3746818, 0403457, 4657735, 5643845, 55296474, 0710964 #### [facility] [address] [place] [address] Progesteroneon 08-15-2019 Progesterone [Mass/Vol] 0.20 ng/mL [facility] Comment on above: Result Comment: REFE RENCE RANGE Males 0.14-2.06 ng/mL Non- Females Follicular 0.10-0.60 ng/mL Luteal 3.00-17.5 ng/mL Midluteal 3.30-18.6 ng/mL Post-Menopausal 0.10-0.40 ng/mL First Trimester 8.30-66.5 ng/mL Second Trimester 18.9-66.1 ng/mL Third Trimester 35.8-312.4 ng/mL Performed By: #### 1 2307746, 2056999, 4657117, 1379362, 6711598, 3982618, 53093272, 1922348 #### [facility] [address] [place] [address] TSHon 08-15-2019 TSH Qn 1.05 mcIU/mL Normal 0.34-5.60 [facility] Comment on above: Performed By: #### 1 5718602, 9750924, 0530228, 3203553, 3215578, 2751581, 30388816, 7056490 #### [facility] [address] [place] [address] Coding Summary.on 07-31-2019 Coding Summary. 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 However, the narrative phrase printed from the coding software may appear abbreviated, or result in slightly different terminology. Coded By: Teri Hill CphT Date Saved: 07/31/2019 10:30 am Normal [facility] ED Note-Physicianon 07-28-20 ED Note-Physician Basic Information Time Seen: Oswaldo Fischer PA-C 07/17/2019 21:52 Chief Complaint pt has complaints of abdominal pain nausea and vomiting since 2am, states lab work done at [facility] today liver enzymes were elevated history of [...] Bergeron discussed with Dr. Goel, trauma surgeon contact lens lathe operator, and Dr. Alvarado, hospitalist contact lens lathe operator, about patient, history, labs, and imaging findings consistent acute pancreatitis and common bile duct obstruction, patient be admitted to hospitalist services, and consult with Dr. Reddy, GI doctor on-call for possible COMPOSING ROOM MACHINIST in the morning. Dr. Alvarado admitted patient [...] was treated and evaluated by the Physician Supercharge Repair Supervisor. The attending physician was Dr. Bergeron in [...] Auto: 6.4 % Low (07/17/19 22:12:00 EDT) [place] Auto: 5.5 % (07/17/19 22:12:00 EDT) Eos Auto: 0.6 % (07/17/19 22:12:00 EDT) Basophil Auto: 0.3 % (07/17/19 22:12:00 EDT) Neutro Absolute: 11.3 E9/L High (07/17/19 22:12:00 EDT) Lymph Absolute: 0.8 E9/L Low (07/17/19 22:12:00 EDT) [place] Absolute: 0.7 E9/L (07/17/19 22:12:00 EDT) Eos [...] Diagnostic Results No qualifying data available. Normal [facility] Comment on above: Result Comment: Elec tronically Signed By: Oswaldo Fischer PA-C\.br\Date and Time Signed: 07/18/19 01:07 EDT\.br\Electronically Co-Signed By: Mehran Bergeron MD\.br\Date and Time Co-Signed: 07/28/19 08:12 EDT Progress Note-Physicianon Progress Note-Physician Chief Complaint Follow up from OR History of Present Illness SUKHDEV SCHWARTZ is a 33 Years Female who [place] [facility] [place] with gallstone pancreatitis. 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 Still waiting for [facility] paperwork which she'll fax to us. Review [...] a 33 Years Female who [place] [facility] [place] with gallstone pancreatitis and is now POD#9 s/p lap aidee. She is recovering well. She can keep covering the periumbilical incision with Bandaid until it heals. I reviewed path report with her. She can follow-up with us PRN. We will fill out [facility] paperwork for her when we receive it. [...] REACTIVE LYMPH NODE WITH FOLLICULAR HYPERPLASIA. Normal [facility] Comment on above: Result Comment: Elec tronically Signed By: Garrett GUSTAFSON, Marina Fields\.br\Date and Time Signed: 07/28/19 09:13 EDT Coding Summary.on 07-24-2019 Coding Summary. CODING DATE: 019 FINAL [facility] STATUS: Home (Routine DC) PAYOR: [...] (BMI) 34.0-34.9, adult PROCEDURES DOCTOR NAME DATE [id number] Resection of Gallbladder, Amando GUSTAFSON, Javan Stevens 07/19/2019 Percutaneous Endoscopic Approach [id number] Extirpation of Matter from Abhinav REDDY MD 07/18/2019 Common Bile Duct, Via Natural or Artificial Opening Endoscopic [id number] Fluoroscopy of Bile Ducts using Abhinav REDDY MD 07/18/2019 Low Osmolar Contrast NOTE: The code number assigned matches the documented diagnosis and / or procedure in the patient's chart. However, the narrative phrase printed from the coding software may appear abbreviated, or result in slightly different terminology. Revised Coded By: Kat Del Rosario Revised Date Saved: 07/24/2019 07:27 am Normal [facility] Progress Note-Physicianon Progress Note-Physician Patient: SUKHDEV [...] All Problems Ovarian dysfunction / SNOMED CT 15264100 / Confirmed Hypothyroidism / SNOMED CT 20343713 / Confirmed Pancreatitis / SNOMED CT 330284207 / Confirmed Histories Past Medical History: No [...] Cardiovascular: Regular rhythm. Neurologic: Alert, Oriented. Plan [place] Society of Anesthesiologists (ASA) physical status classification: Class II. Anesthetic Preoperative Plan Anesthesia: General. . Anesthetic plan, risks, benefits, and alternatives discussed with the patient and/or family. Communication: face to face with (patient 5 minutes, Patient educated on smoking cesstation). Normal [facility] Comment on above: Result Comment: Elec [...] the cystic duct and artery using endoscopic deinse. Once this was done we then dissected [...] then closed the umbilical fascia with multiple gfmkyi-xj-hmujr 0 Vicryl sutures, then tied the stay [...] Gallbladder Javan Goel MD aek Dictated: 07/19/2019 #[id number] Typed: 07/20/2019 #[id number] cc: Javan Goel MD Normal [facility] Comment on above: Result Comment: Elec tronically Signed By: Amando GUSTAFSON, Javan Stevens\.br\Date and Time Signed: 07/20/19 11:04 EDT Auto Diffon 07-19-2019 Basophils/100 WBC (Bld) 0.2 % Normal 0.0-2.0 [facility] Comment on above: Order Comment: Order Added by Discern Expert. Performed By: #### 1 5920691, 8498483, 9358802, 9712353, 9112263, 8632659, 13734218, 1667556 #### [facility] [address] [place] [address] Basophils/Leukocyte s Auto (Bld) [Pure # fraction] 0.0 E9/L Normal 0.0-0.2 [facility] Comment on above: Order Comment: Order Added by Discern Expert. Performed By: #### 1 0680955, 5437192, 2672896, 2197918, 1410182, 2670629, 21385574, 8945869 #### [facility] [address] [place] [address] Eosinophils/100 WBC (Bld) 1.1 % Normal 0.0-8.0 [facility] Comment on above: Order Comment: Order Added by Discern Expert. Performed By: #### 1 2604506, 0977798, 6692095, 4564140, 1906413, 4489550, 78427743, 3597283 #### [facility] [address] [place] [address] Eosinophils/Leukocy dariel Auto (Bld) [Pure # fraction] 0.1 E9/L Normal 0.0-0.5 [facility] Comment on above: Order Comment: Order Added by Discern Expert. Performed By: #### 1 0418774, 7088031, 4058354, 7878693, 6855366, 3781611, 39182893, 7437602 #### [facility] [address] [place] [address] Lymphocytes/100 WBC (Bld) 11.9 % Low 14.0-50.0 [facility] Comment on above: Order Comment: Order Added by Discern Expert. Performed By: #### 1 5069072, 9657917, 5861586, 7204890, 2690049, 2553209, 07319919, 8566862 #### [facility] [address] [place] [address] Lymphocytes/Leukocy dariel Auto (Bld) [Pure # fraction] 1.1 E9/L Normal 1.0-4.0 [facility] Comment on above: Order Comment: Order Added by Discern Expert. Performed By: #### 1 3050546, 3824919, 4611554, 5807222, 9528035, 4970552, 71856467, 6399510 #### [facility] [address] [place] [address] Monocytes/100 WBC (Bld) 5.8 % Normal 4.0-14.0 [facility] Comment on above: Order Comment: Order Added by Discern Expert. Performed By: #### 1 8615022, 8573077, 9825164, 0488823, 5227944, 8110178, 22736467, 7074365 #### [facility] [address] [place] [address] Monocytes/Leukocyte s Auto (Bld) [Pure # fraction] 0.5 E9/L Normal 0.2-1.0 [facility] Comment on above: Order Comment: Order Added by Discern Expert. Performed By: #### 1 1997223, 1293184, 4375337, 2811044, 3804396, 7092654, 04475822, 5844457 #### [facility] [address] [place] [address] Neutrophils/100 WBC (Bld) 81.0 % High 36.0-75.0 [facility] Comment on above: Order Comment: Order Added by Discern Expert. Performed By: #### 1 9014907, 4672487, 3944002, 0361197, 9458971, 4298649, 57334903, 5078605 #### [facility] [address] [place] [address] Neutrophils/Leukocy dariel Auto (Bld) [Pure # fraction] 7.3 E9/L Normal 2.0-7.5 [facility] Comment on above: Order Comment: Order Added by Discern Expert. Performed By: #### 1 1565345, 3880039, 9469044, 4333866, 8409707, 3387786, 64803976, 6434704 #### [facility] [address] [place] [address] CBC w/ Auto Diffon Erythrocyte distribution width (RBC) [Ratio] 13.6 % Normal 10.9-14.2 [facility] Comment on above: Performed By: #### 1 5267506, 6761520, 5596710, 3325753, 0256941, 0643033, 70431131, 6942330 #### [facility] [address] [place] [address] Hematocrit (Bld) [Volume fraction] 30.5 % Low 34.0-46.0 [facility] Comment on above: Performed By: #### 1 1712274, 6065413, 2935459, 1478846, 3140328, 7564983, 31780611, 5424451 #### [facility] [address] [place] [address] Hemoglobin (Bld) [Mass/Vol] 10.8 g/dL Low 12.0-16.0 [facility] Comment on above: Performed By: #### 1 1606046, 8760929, 7142196, 2534951, 4447719, 4684718, 93729191, 1336025 #### [facility] [address] [place] [address] MCH (RBC) [Entitic mass] 31.4 pg Normal 27.0-34.0 [facility] Comment on above: Performed By: #### 1 3234312, 5877680, 1967687, 9722959, 3011176, 2944585, 23056670, 1680337 #### [facility] [address] [place], [place] [address] MCHC (RBC) [Mass/Vol] 35.2 g/dL Normal 33.3-35.7 [facility] Comment on above: Performed By: #### 1 3176354, 2763601, 6948805, 9069865, 9642003, 4775798, 67009988, 9784720 #### [facility] [address] [place] [address] MCV (RBC) [Entitic vol] 89.0 fL Normal 80.0-100.0 [facility] Comment on above: Performed By: #### 1 3346093, 0500859, 9263916, 3269608, 9541702, 2160367, 78517458, 9202533 #### [facility] [address] [place] [address] Platelet mean volume (Bld) [Entitic vol] 7.4 fL Normal 6.4-10.8 [facility] Comment on above: Performed By: #### 1 7075903, 6823278, 3928315, 3302974, 8248692, 7112512, 07063685, 1669244 #### [facility] [address] [place] [address] Platelets (Bld) [#/Vol] 206.0 E9/L Normal 150.0-500.0 [facility] Comment on above: Performed By: #### 1 2508391, 9878584, 9947731, 7374997, 7982879, 9482293, 70511434, 7446687 #### [facility] [address] [place], [place] [address] RBC (Bld) [#/Vol] 3.4 E12/L Low 4.3-5.9 [facility] Comment on above: Performed By: #### 1 0331705, 6082583, 1372975, 8579340, 4705451, 1338499, 16634598, 7890269 #### [facility] [address] [place] [address] WBC corrected for nucl RBC Auto (Bld) [#/Vol] 9.0 E9/L Normal 4.0-11.0 [facility] Comment on above: Performed By: #### 1 0022986, 7242787, 2861759, 9072577, 7966016, 4960693, 46562283, 2686136 #### [facility] [address] [place] [address] CMPon 07-19-2019 Albumin [Mass/Vol] 3.1 g/dL Low 3.3-5.0 [facility] Comment on above: Performed By: #### 1 2229687, 8942215, 0003056, 8205746, 6472849, 1749155, 17380686, 6422579 #### [facility] [address] [place], [place] [address] Albumin [Mass/Vol] 1.3 g/dL Normal 1.1-2.2 [facility] Comment on above: Performed By: #### 1 1435249, 6839771, 4013882, 2757336, 9289543, 5230706, 21039441, 9712088 #### [facility] [address] [place] [address] ALP [Catalytic activity/Vol] 64 Int._Unit/L Normal 21-98 [facility] Comment on above: Performed By: #### 1 4103205, 7996281, 0449768, 0087498, 7115362, 0801639, 57150759, 6690632 #### [facility] [address] [place] [address] ALT No additional P-5'-P [Catalytic activity/Vol] 77 Int._Unit/L High 6-46 [facility] Comment on above: Performed By: #### 1 9745924, 1197023, 1691300, 0593178, 5313614, 2454658, 90995997, 9546380 #### [facility] [address] [place] [address] AST [Catalytic activity/Vol] 32 Int._Unit/L Normal 5-43 [facility] Comment on above: Performed By: #### 1 9164925, 9766435, 0967158, 2536133, 0170455, 8861772, 77673064, 8372383 #### [facility] [address] [place] [address] Bilirubin [Mass/Vol] 1.2 mg/dL High 0.0-1.1 [facility] Comment on above: Performed By: #### 1 0797016, 7771860, 0052667, 1421751, 9897556, 4932718, 64686939, 5713965 #### [facility] [address] [place] [address] Creatinine [Mass/Vol] 0.6 mg/dL Normal 0.5-1.3 [facility] Comment on above: Performed By: #### 1 3008009, 3846495, 7337618, 9109352, 4711496, 0483852, 46105974, 8367766 #### [facility] [address] [place] [address] Globulin (S) [Mass/Vol] 2.4 g/dL Normal 1.4-4.0 [facility] Comment on above: Performed By: #### 1 4826996, 8557928, 3909843, 5802726, 6608606, 9272696, 86244292, 4709093 #### [facility] [address] [place] [address] Protein [Mass/Vol] 5.5 g/dL Low 6.0-7.8 [facility] Comment on above: Performed By: #### 1 7414694, 5267548, 4877034, 5287240, 1547869, 7601994, 25208847, 9001301 #### [facility] [address] [place] [address] Urea nitrogen [Mass/Vol] 10 mg/dL Normal 5-21 [facility] Comment on above: Performed By: #### 1 4463637, 1128764, 3333489, 1347998, 0891022, 1130246, 73390711, 5657295 #### [facility] [address] [place] [address] Urea nitrogen/Creatinine [Mass ratio] 17 No Units Normal 10-20 [facility] Comment on above: Performed By: #### 1 5689468, 1422517, 8754843, 0180795, 8398137, 6119688, 39317788, 5982377 #### [facility] [address] [place] [address] Anion gap [Moles/Vol] 12 mmol/L Normal 6-16 [facility] Comment on above: Performed By: #### 1 5192950, 2879299, 9055473, 4144363, 9442388, 6276779, 60901604, 4075835 #### [facility] [address] [place] [address] Calcium [Mass/Vol] 8.5 mg/dL Low 8.9-11.1 [facility] Comment on above: Performed By: #### 1 2403634, 2520970, 4812452, 6992420, 7681504, 9636436, 46407478, 8831246 #### [facility] [address] [place] [address] Chloride [Moles/Vol] 109 mmol/L Normal 101-111 [facility] Comment on above: Performed By: #### 1 2003518, 8690256, 4667559, 0009314, 9649632, 7938616, 22490723, 5925063 #### [facility] [address] [place] [address] CO2 [Moles/Vol] 22 mmol/L Normal 21-31 [facility] Comment on above: Performed By: #### 1 8654436, 1062812, 5967404, 8022437, 3265582, 4941589, 92974074, 6356735 #### [facility] [address] [place] [address] Glucose [Mass/Vol] 99 mg/dL Normal 55-199 [facility] Comment on above: Result Comment: If t his glucose result represents a fasting glucose, interpretation should refer to the following reference range: 55-99 mg/dL Performed By: #### 1 4824085, 5173033, 9190251, 8261166, 6886694, 7633264, 38147010, 8078921 #### [facility] [address] [place] [address] Potassium [Moles/Vol] 3.7 mmol/L Normal 3.5-5.3 [facility] Comment on above: Performed By: #### 1 4234941, 0396172, 5573002, 8307746, 0927349, 0112242, 01626602, 4230923 #### [facility] [address] [place] [address] Sodium [Moles/Vol] 139 mmol/L Normal 135-145 [facility] Comment on above: Performed By: #### 1 2650096, 6662836, 5397621, 4902162, 2236235, 9000616, 62604132, 7319793 #### [facility] [address] [place] [address] Discharge Note-Nursingon Discharge Note-Nursing 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 and discharged home with family per personal vehicle Normal [facility] Inpatient Clinical Summaryon 07-19-2019 Inpatient Clinical Summary [address] [address] Clinical Summary Person Information: Name: SUKHDEV SCHWARTZ Age: 33 Years : 1985 12:00 AM Sex: Female PCP: LOLI MATIAS MD Marital Status: Phone: [phone] Race: White Ethnicity: Non- or Language: Lithuanian Visit Id: Visit Reason: Vomiting; Nausea; Abdominal pain; COMMON DUCT OBSTRUCTION, ACUTE PANCREATITIS Speciality: Acuity: Enc Type: Inpatient Med Service: Medical Arrival: 07/17/2019 8:55 PM Discharge: Dispo Type: Admitted as IP to this [facility] Address: [address] [place] [address] [address] [place] [id number] Provider Notes: Diagnosis: 1:Acute gallstone pancreatitis; 2:Abnormal [...] Follow up: With: Address: When: Javan Brennan [facility], [address], [address] [address] [phone] Business (1) Within 7 to 10 days With: Address: When: [place] [address] Business (1) 08/07/2019 7:30 AM Type Location Start [facility] Follow Up [facility] 09/12/2019 2:00 PM 09/12/2019 2:15 PM Confirmed Patient Education Information: Cholecystostomy Normal [facility] Inpatient Patient Summaryon 07-19-2019 Inpatient Patient Summary [address] [address] Patient Discharge Instructions PERSON INFORMATION Name: SUKHDEV [...] Follow up: With: Address: When: Javan Goel [address] [place] [address], [address], [address] [phone] Business (1) Within 7 to 10 days With: Address: When: LOLI MATIAS [address] [place] [address] Business (1) 08/07/2019 7:30 AM In the event that this physician does not participate in your insurance network, please consult with your insurance company to find a nearby participating provider. Type Location Start [facility] 09/12/2019 2:00 PM 09/12/2019 2:15 PM Confirmed Comment: JAMES Bain BRITTANY F, have received the attached patient education materials/instructions and have verbalized understanding: Patient Signature __ Date Clinican/Nurse Signature Date HERE ARE THE MEDICATION CHANGES THAT OCCURRED DURING YOUR HOSPITAL STAY New Medications [facility] [address], [address] [place] [id number], [phone] acetaminophen-hydrocodone (acetaminophen-hydrocodone 325 mg-5 mg oral tablet) [...] Mouth 2 times a day. Pharmacy Information: [facility] Comment: PATIENT EDUCATION INFORMATION Instructions: Cholecystostomy [...] Document Reviewed: 12/31/2009 ExitCare? Patient Information ?2014 [employer]. This information is not intended to replace advice given to you by your health care provider. Make sure you discuss any questions you have with your health care provider. Medication Leaflets: Thank you for choosing [facility] Normal [facility] Interdisciplinary Note - Arcadio e Manageron 07-19-2019 INR Coag (Bld) [Relative time] Rounding with Dr. Benjamin, Felicia COUNTS INCLUDE 234 BEDS AT THE [facility], Rosie [facility], and Agustina GOODRICH with another patient [...] will update family on dc plans. Normal [facility] Comment on above: Result Comment: Elec tronically Signed By: Andrzej GOODRICH, Felicia\.br\Date and Time Signed: 07/19/19 09:10 EDT Main OR Intraoperative Recor don 07-19-2019 Main OR Intraoperative Record IntraOp Document Type FT Summary Primary Physician: Javan Goel MD Finalized Date/Time: 07/19/19 14:22:14 Pt. Name: SUKHDEV SCHWARTZ D.O.B./Sex: 1985 Female Med Rec #: [id number] Physician: Aron ALVARADO DO Financial #: [id number] Pt. Type: I Room/Bed: 06 Admit/Disch: 07/17/19 [...] RN Role Performed Anesthesiologist Surgeon - Primary ORDNANCE ENGINEERING TECHNICIAN Supercharge Repair Supervisor Time In 07/19/19 10:51:00 07/19/19 10:51:00 07/19/19 10:51:00 Time Out 07/19/19 13:18:00 07/19/19 12:56:00 07/19/19 13:18:00 Procedure CHOLECYSTECTOMY CHOLECYSTECTOMY CHOLECYSTECTOMY LAPAROSCOPIC W/ LAPAROSCOPIC W/ LAPAROSCOPIC W/ CHOLANGI(.) CHOLANGI(.) CHOLANGI(.) Comments DR GARVIN OUT FOR LUNCH FROM SUPERVISING.GERI [id number] WANDER GRAY-OUT TO LUNCH FROM [phone]. Last Modified By: Luis Fernando RN, Tosha Gould RN, Tosha Stewart RN 07/19/19 13:22:30 07/19/19 13:22:30 07/19/19 13:22:30 Entry 4 Entry 5 Entry 6 Case Attendee Armaan VILLAGOMEZ, Mónica Gould RN, Tosha Wright RNRavi Role Performed Scrub - Primary Prison Librarian - Primary Prison Librarian - Relief Time In 07/19/19 10:51:00 07/19/19 10:51:00 07/19/19 11:04:00 Time Out 07/19/19 13:18:00 07/19/19 13:18:00 07/19/19 11:40:00 Procedure CHOLECYSTECTOMY CHOLECYSTECTOMY CHOLECYSTECTOMY LAPAROSCOPIC W/ LAPAROSCOPIC W/ LAPAROSCOPIC W/ CHOLANGI(.) CHOLANGI(.) CHOLANGI(.) Comments OUT FOR LUNCH FROM OUT TO LUNCH FROM [phone] Last Modified By: Luis Fernando GOODRICH, Tosha Gould RN, Tosha Stewart RN 07/19/19 13:22:30 07/19/19 13:22:30 07/19/19 13:22:30 Entry 7 Entry 8 Entry 9 Case Attendee Adalid VILLAGOMEZ, Bert Vázquez FOOD AND NUTRITION SUPERVISOR/SA, Tosha Wolf CST Performed FOOD AND NUTRITION SUPERVISOR/SA Scrub - Relief Scrub - Other Time [...] tissue Entry 1 Skin Integrity Bruised, Intact, Hypoluxo, Skin Abnormality Yes Warm, and Dry Abnormality [...] Type TUBE NASOGASTIC SUMP Location MOUTH 18FR [[id number]][F] Quantity 1 Inserted By Geri Guerrero Present [...] Present Upon Arrival No Inserted LF 16FR [[id number]][F] Insertion Date/Time 07/19/19 11:09:00 Urine Residual 350 [...] BLANKET MISTRAL AIR Quantity 1 Aid TORSO [[id number]][F] Fluid/[place] [facility] Mistral warming system Setting HIGH/43C Body Site Upper anterior torso Last Modified By: Tosha Gould RN 07/19/19 10:34:51 Case Comments Finalized By: Juanita Stein CST Document Signatures Signed By: Tosha Gould RN 07/19/19 13:23 Juanita Stein CST 07/19/19 14:22 Normal [facility] Main OR PACU I Recordon Main OR PACU I Record PACU Phase I Document Type FT Summary Primary Physician: Javan Goel MD Finalized Date/Time: 07/19/19 13:51:28 Pt. Name: SUKHDEV SCHWARTZ/Sex: 1985 Female Med Rec #: [id number] Physician: Aron ALVARADO DO Financial #: [id number] Pt. Type: I Room/Bed: [place] [address] Admit/Disch: 07/17/19 20:55:00 - Institution: Case Times [...] By: Mariama Cadena RN 07/19/19 13:51 Normal [facility] Main OR Preoperative Recordo n 07-19-2019 Main OR Preoperative Record PreOp Document Type FT Summary Primary Physician: Javan Goel MD Finalized Date/Time: 07/19/19 11:50:30 Pt. Name: SUKHDEV SCHWARTZ Antoni HoltB./Sex: 1985 Female Med Rec #: [id number] Physician: Aron ALVARADO DO Financial #: [id number] Pt. Type: I Room/Bed: [facility] Admit/Disch: 07/17/19 20:55:00 - Institution: Case Times [...] By: Tosha Gould RN 07/19/19 11:50 Normal [facility] Progress Note-Physicianon Progress Note-Physician ACUTE CARE [...] Auto: 11.9 % Low (07/19/19 05:39:00 EDT) [place] Auto: 5.8 % (07/19/19 05:39:00 EDT) Eos Auto: 1.1 % (07/19/19 05:39:00 EDT) Basophil Auto: 0.2 % (07/19/19 05:39:00 EDT) Neutro Absolute: 7.3 E9/L (07/19/19 05:39:00 EDT) Lymph Absolute: 1.1 E9/L (07/19/19 05:39:00 EDT) [place] Absolute: 0.5 E9/L (07/19/19 05:39:00 EDT) Eos [...] Goel MD Trauma/Critical Care/Acute Care Surgery Attending [facility] Comment on above: Result Comment: Elec tronically Signed By: Amando GUSTAFSON, Javan J\.br\Date and Time Signed: 07/19/19 10:32 EDT eGFRon 07-19-2019 GFR/1.73 sq M predicted among blacks MDRD (S/P/Bld) [Vol rate/Area] mL/min/{1.73_m2} Normal >=59 [facility] Comment on above: Order Comment: Order added by Discern Expert. Result Comment: eGFR is race adjusted. AA=. Performed By: #### 1 5707966, 5960135, 9316804, 3385890, 1800161, 6735712, 12905645, 3858153 #### [facility] [address] [place] [address] GFR/1.73 sq M predicted among non-blacks MDRD (S/P/Bld) [Vol rate/Area] mL/min/{1.73_m2} Normal >=59 [facility] Comment on above: Order Comment: Order added by Discern Expert. Result Comment: Warehouse Associate ivan kidney disease could be indicated at eGFR's of less than 60 mL/min/1.73m2. Kidney failure is indicated at less than 15 mL/min/1.73m2. Performed By: #### 1 9110970, 7227426, 9187832, 1026483, 0263459, 3162027, 35699873, 5669859 #### [facility] [address] [place] [address] Auto Diffon 07-18-2019 Basophils/100 WBC (Bld) 0.4 % Normal 0.0-2.0 [facility] Comment on above: Order Comment: Order Added by Discern Expert. Performed By: #### 1 6533894, 3282916, 9970432, 1905147, 9802923, 8387527, 11156585, 9091593 #### [facility] [address] [place] [address] Basophils/Leukocyte s Auto (Bld) [Pure # fraction] 0.0 E9/L Normal 0.0-0.2 [facility] Comment on above: Order Comment: Order Added by Discern Expert. Performed By: #### 1 6387777, 3622400, 7794929, 2678251, 0879901, 5196983, 99676742, 0368297 #### [facility] [address] [place] [address] Eosinophils/100 WBC (Bld) 0.4 % Normal 0.0-8.0 [facility] Comment on above: Order Comment: Order Added by Discern Expert. Performed By: #### 1 2056082, 9708407, 7974774, 5879086, 7230469, 8006558, 25231605, 1021806 #### [facility] [address] [place] [address] Eosinophils/Leukocy dariel Auto (Bld) [Pure # fraction] 0.0 E9/L Normal 0.0-0.5 [facility] Comment on above: Order Comment: Order Added by Discern Expert. Performed By: #### 1 5840580, 7643770, 3759955, 2468871, 6944805, 0882034, 89645063, 9272212 #### [facility] [address] [place] [address] Lymphocytes/100 WBC (Bld) 19.3 % Normal 14.0-50.0 [facility] Comment on above: Order Comment: Order Added by Discern Expert. Performed By: #### 1 2024437, 8024797, 1704764, 0627448, 7695721, 1531144, 98816549, 0940030 #### [facility] [address] [place] [address] Lymphocytes/Leukocy dariel Auto (Bld) [Pure # fraction] 1.5 E9/L Normal 1.0-4.0 [facility] Comment on above: Order Comment: Order Added by Discern Expert. Performed By: #### 1 8419807, 9326565, 7654302, 7208497, 1300337, 6124746, 71060536, 3307376 #### [facility] [address] [place] [address] Monocytes/100 WBC (Bld) 6.4 % Normal 4.0-14.0 [facility] Comment on above: Order Comment: Order Added by Discern Expert. Performed By: #### 1 0762891, 5462796, 3907273, 2806293, 2703454, 0395861, 93405450, 9870015 #### [facility] [address] [place] [address] Monocytes/Leukocyte s Auto (Bld) [Pure # fraction] 0.5 E9/L Normal 0.2-1.0 [facility] Comment on above: Order Comment: Order Added by Discern Expert. Performed By: #### 1 0661406, 8472688, 0443770, 7645523, 7733520, 4667081, 57169220, 7368582 #### [facility] [address] [place] [address] Neutrophils/100 WBC (Bld) 73.5 % Normal 36.0-75.0 [facility] Comment on above: Order Comment: Order Added by Discern Expert. Performed By: #### 1 6687554, 8710208, 1369600, 7606431, 9656949, 0253339, 27904435, 9914220 #### [facility] [address] [place] [address] Neutrophils/Leukocy dariel Auto (Bld) [Pure # fraction] 5.7 E9/L Normal 2.0-7.5 [facility] Comment on above: Order Comment: Order Added by Discern Expert. Performed By: #### 1 4510922, 6454561, 3118718, 8580906, 2216869, 6328893, 67872157, 0133465 #### [facility] [address] [place] [address] Basophils/100 WBC (Bld) 0.3 % Normal 0.0-2.0 [facility] Comment on above: Order Comment: Order Added by Discern Expert. Performed By: #### 1 7408706, 6355003, 1896389, 2368777, 1205851, 2061737, 00578671, 5999942 #### [facility] [address] [place] [address] Basophils/Leukocyte s Auto (Bld) [Pure # fraction] 0.0 E9/L Normal 0.0-0.2 [facility] Comment on above: Order Comment: Order Added by Discern Expert. Performed By: #### 1 3319581, 4578134, 3059159, 2720506, 3273501, 1071223, 54061674, 2403183 #### [facility] [address] [place] [address] Eosinophils/100 WBC (Bld) 0.6 % Normal 0.0-8.0 [facility] Comment on above: Order Comment: Order Added by Discern Expert. Performed By: #### 1 7590928, 4587520, 1576130, 7978770, 0943805, 9217266, 98606167, 5506870 #### [facility] [address] [place] [address] Eosinophils/Leukocy dariel Auto (Bld) [Pure # fraction] 0.1 E9/L Normal 0.0-0.5 [facility] Comment on above: Order Comment: Order Added by Discern Expert. Performed By: #### 1 9538562, 9985918, 9260457, 2082096, 4454414, 8310506, 60710323, 9471328 #### [facility] [address] [place] [address] Lymphocytes/100 WBC (Bld) 6.4 % Low 14.0-50.0 [facility] Comment on above: Order Comment: Order Added by Discern Expert. Performed By: #### 1 0289395, 3895977, 7197746, 3894245, 5093442, 2625700, 60549636, 7855826 #### [facility] [address] [place] [address] Lymphocytes/Leukocy dariel Auto (Bld) [Pure # fraction] 0.8 E9/L Low 1.0-4.0 [facility] Comment on above: Order Comment: Order Added by Discern Expert. Performed By: #### 1 0704786, 2934742, 3090310, 5176828, 9010905, 4549572, 41767797, 7493551 #### [facility] [address] [place] [address] Monocytes/100 WBC (Bld) 5.5 % Normal 4.0-14.0 [facility] Comment on above: Order Comment: Order Added by Discern Expert. Performed By: #### 1 8046244, 6838539, 4446093, 8990575, 2713877, 0593113, 26412635, 1860121 #### [facility] [address] [place] [address] Monocytes/Leukocyte s Auto (Bld) [Pure # fraction] 0.7 E9/L Normal 0.2-1.0 [facility] Comment on above: Order Comment: Order Added by Discern Expert. Performed By: #### 1 1006192, 4316968, 4358919, 9035602, 1596668, 5250315, 47102699, 3697063 #### [facility] [address] [place] [address] Neutrophils/100 WBC (Bld) 87.2 % High 36.0-75.0 [facility] Comment on above: Order Comment: Order Added by Discern Expert. Performed By: #### 1 5175045, 9932476, 3367163, 7136672, 7532153, 0975656, 17759081, 5546745 #### [facility] [address] [place] [address] Neutrophils/Leukocy dariel Auto (Bld) [Pure # fraction] 11.3 E9/L High 2.0-7.5 [facility] Comment on above: Order Comment: Order Added by Discern Expert. Performed By: #### 1 5793964, 2172069, 6696759, 2620586, 3193145, 1592601, 61240243, 4621985 #### [facility] [address] [place] [address] BMPon 07-18-2019 Urea nitrogen/Creatinine [Mass ratio] 22 No Units High 10-20 [facility] Comment on above: Performed By: #### 1 6606409, 4684145, 4235825, 5637342, 1044580, 1004664, 50596378, 8822456 #### [facility] [address] [place] [address] Creatinine [Mass/Vol] 0.5 mg/dL Normal 0.5-1.3 [facility] Comment on above: Performed By: #### 1 8801145, 6584919, 8575648, 8315285, 5277713, 6395763, 17108473, 4722062 #### [facility] [address] [place] [address] Urea nitrogen [Mass/Vol] 11 mg/dL Normal 5-21 [facility] Comment on above: Performed By: #### 1 6795221, 5872652, 3247666, 6867064, 0045750, 3056558, 05672189, 3089597 #### [facility] [address] [place] [address] Anion gap [Moles/Vol] 12 mmol/L Normal 6-16 [facility] Comment on above: Performed By: #### 1 2506394, 3615106, 4613407, 3584229, 8655847, 8004968, 26437514, 8403736 #### [facility] [address] [place] [address] Calcium [Mass/Vol] 8.8 mg/dL Low 8.9-11.1 [facility] Comment on above: Performed By: #### 1 9044673, 5017405, 3570723, 3305034, 5580729, 8936553, 58388456, 7282053 #### [facility] [address] [place] [address] Chloride [Moles/Vol] 109 mmol/L Normal 101-111 [facility] Comment on above: Performed By: #### 1 2409149, 6689707, 1398786, 3358848, 7849399, 4614067, 69658319, 3523908 #### [facility] [address] [place] [address] CO2 [Moles/Vol] 24 mmol/L Normal 21-31 [facility] Comment on above: Performed By: #### 1 5673423, 8873062, 1504693, 7161491, 7785134, 1089014, 41370737, 6510991 #### [facility] [address] [place] [address] Glucose [Mass/Vol] 104 mg/dL Normal 55-199 [facility] Comment on above: Result Comment: If t his glucose result represents a fasting glucose, interpretation should refer to the following reference range: 55-99 mg/dL Performed By: #### 1 4215532, 6686889, 5057057, 8026000, 8950213, 7074930, 33934696, 3492272 #### [facility] [address] [place] [address] Potassium [Moles/Vol] 3.8 mmol/L Normal 3.5-5.3 [facility] Comment on above: Performed By: #### 1 1927566, 8100414, 6952861, 9190699, 8286630, 5848902, 89661410, 4148863 #### [facility] [address] [place] [address] Sodium [Moles/Vol] 141 mmol/L Normal 135-145 [facility] Comment on above: Performed By: #### 1 8653669, 6849921, 8367831, 6513433, 2188585, 5676913, 60841092, 4934471 #### [facility] [address] [place] [address] Creatinine [Mass/Vol] 0.5 mg/dL Normal 0.5-1.3 [facility] Comment on above: Performed By: #### 1 0983492, 0215275, 5718549, 2277823, 7678435, 1568371, 63255190, 6179169 #### [facility] [address] [place] [address] Urea nitrogen [Mass/Vol] 13 mg/dL Normal 5-21 [facility] Comment on above: Performed By: #### 1 1493051, 0040869, 3119586, 1061017, 9782539, 7157710, 56594131, 9025118 #### [facility] [address] [place] [address] Urea nitrogen/Creatinine [Mass ratio] 26 No Units High 10-20 [facility] Comment on above: Performed By: #### 1 1478309, 1866290, 3581021, 1720669, 6918379, 0382987, 19720178, 4723130 #### [facility] [address] [place] [address] Anion gap [Moles/Vol] 13 mmol/L Normal 6-16 [facility] Comment on above: Performed By: #### 1 6180575, 2763313, 7156109, 9164367, 2136354, 6159357, 91776004, 7532310 #### [facility] [address] [place] [address] Calcium [Mass/Vol] 9.3 mg/dL Normal 8.9-11.1 [facility] Comment on above: Performed By: #### 1 7569874, 2088567, 1121754, 8643096, 5482827, 0362020, 66232804, 4285539 #### [facility] [address] [place] [address] Chloride [Moles/Vol] 105 mmol/L Normal 101-111 [facility] Comment on above: Performed By: #### 1 4135626, 6883782, 7325038, 7329867, 0480958, 9728562, 00824118, 3569638 #### [facility] [address] [place] [address] CO2 [Moles/Vol] 26 mmol/L Normal 21-31 [facility] Comment on above: Performed By: #### 1 5160726, 3277730, 2343599, 8655167, 7391762, 8956663, 34657953, 5678326 #### [facility] [address] [place] [address] Glucose [Mass/Vol] 107 mg/dL Normal 55-199 [facility] Comment on above: Result Comment: If t his glucose result represents a fasting glucose, interpretation should refer to the following reference range: 55-99 mg/dL Performed By: #### 1 6552466, 3917310, 1127207, 4807804, 4310900, 8312891, 96886721, 7413412 #### [facility] [address] [place] [address] Potassium [Moles/Vol] 3.7 mmol/L Normal 3.5-5.3 [facility] Comment on above: Performed By: #### 1 1573450, 6582710, 6616848, 3329872, 2525695, 0757646, 17301921, 5997265 #### [facility] [address] [place] [address] Sodium [Moles/Vol] 140 mmol/L Normal 135-145 [facility] Comment on above: Performed By: #### 1 7241083, 9312230, 3079615, 5743666, 7199206, 1442461, 36547417, 5771251 #### [facility] [address] [place] [address] CBC w/ Auto Diffon 9 Erythrocyte distribution width (RBC) [Ratio] 13.7 % Normal 10.9-14.2 [facility] Comment on above: Performed By: #### 1 2079714, 0162490, 9398755, 6937259, 5769483, 4407424, 90941078, 5826783 #### [facility] [address] [place] [address] Hematocrit (Bld) [Volume fraction] 34.8 % Normal 34.0-46.0 [facility] Comment on above: Performed By: #### 1 4547284, 6540231, 6150562, 4148170, 7294408, 0440444, 00190213, 4109432 #### [facility] [address] [place] [address] Hemoglobin (Bld) [Mass/Vol] 12.0 g/dL Normal 12.0-16.0 [facility] Comment on above: Performed By: #### 1 7536068, 1198798, 0832311, 3480962, 3826868, 2742667, 40412977, 4891489 #### [facility] [address] [place] [address] MCH (RBC) [Entitic mass] 30.5 pg Normal 27.0-34.0 [facility] Comment on above: Performed By: #### 1 7183686, 5129608, 7678839, 4961189, 1138840, 8313681, 85362683, 2989775 #### [facility] [address] [place] [address] MCHC (RBC) [Mass/Vol] 34.5 g/dL Normal 33.3-35.7 [facility] Comment on above: Performed By: #### 1 8599930, 9503437, 7686965, 8503805, 0136492, 7658574, 74672318, 7729612 #### [facility] [address] [place] [address] MCV (RBC) [Entitic vol] 88.6 fL Normal 80.0-100.0 [facility] Comment on above: Performed By: #### 1 1228121, 7464855, 9585590, 6357195, 6604887, 9025382, 50473194, 7461060 #### [facility] [address] [place] [address] Platelet mean volume (Bld) [Entitic vol] 7.9 fL Normal 6.4-10.8 [facility] Comment on above: Performed By: #### 1 9429237, 3322327, 3360376, 2411975, 6595066, 5445747, 23939402, 5522623 #### [facility] [address] [place], [place] [address] Platelets (Bld) [#/Vol] 256.0 E9/L Normal 150.0-500.0 [facility] Comment on above: Performed By: #### 1 6558639, 8076022, 4840939, 0103216, 3282718, 1264841, 40739435, 0709126 #### [facility] [address] [place] [address] RBC (Bld) [#/Vol] 3.9 E12/L Low 4.3-5.9 [facility] Comment on above: Performed By: #### 1 1422874, 3398397, 8382233, 5831013, 0621609, 1478160, 59823042, 8717914 #### [facility] [address] [place] [address] WBC corrected for nucl RBC Auto (Bld) [#/Vol] 7.8 E9/L Normal 4.0-11.0 [facility] Comment on above: Performed By: #### 1 2916091, 0256795, 6083151, 2961880, 1479299, 1729630, 48482038, 2079044 #### [facility] [address] [place] [address] Erythrocyte distribution width (RBC) [Ratio] 13.2 % Normal 10.9-14.2 [facility] Comment on above: Performed By: #### 1 1773967, 6125601, 7261623, 1329239, 7815553, 4342736, 09072757, 2394456 #### [facility] [address] [place] [address] Hematocrit (Bld) [Volume fraction] 38.9 % Normal 34.0-46.0 [facility] Comment on above: Performed By: #### 1 5008936, 8680869, 3112566, 3159675, 2298900, 7820273, 68597268, 6659354 #### [facility] [address] [place] [address] Hemoglobin (Bld) [Mass/Vol] 13.2 g/dL Normal 12.0-16.0 [facility] Comment on above: Performed By: #### 1 9243760, 0776091, 3232440, 1658833, 0211549, 2182781, 43105430, 1911565 #### [facility] [address] [place] [address] MCH (RBC) [Entitic mass] 30.0 pg Normal 27.0-34.0 [facility] Comment on above: Performed By: #### 1 3776667, 8092872, 0280160, 8753054, 5388112, 4266443, 71778427, 3095255 #### [facility] [address] [place] [address] MCHC (RBC) [Mass/Vol] 34.0 g/dL Normal 33.3-35.7 [facility] Comment on above: Performed By: #### 1 0641430, 4068187, 7933914, 4167686, 0453903, 9421974, 88275964, 8157957 #### [facility] [address] [place] [address] MCV (RBC) [Entitic vol] 88.1 fL Normal 80.0-100.0 [facility] Comment on above: Performed By: #### 1 5263722, 4612643, 5961362, 5968215, 1676467, 7187609, 53871220, 6739200 #### [facility] [address] [place] [address] Platelet mean volume (Bld) [Entitic vol] 8.3 fL Normal 6.4-10.8 [facility] Comment on above: Performed By: #### 1 6947499, 9253729, 6389967, 9782394, 0348749, 2465514, 18330986, 9172378 #### [facility] [address] [place] [address] Platelets (Bld) [#/Vol] 253.0 E9/L Normal 150.0-500.0 [facility] Comment on above: Result Comment: Slid e reviewed by CHARO. Performed By: #### 1 6687934, 1986575, 6106710, 0950854, 5719616, 0208347, 64993656, 9391346 #### [facility] [address] [place] [address] RBC (Bld) [#/Vol] 4.4 E12/L Normal 4.3-5.9 [facility] Comment on above: Performed By: #### 1 7085125, 8523611, 8317019, 6235532, 5739588, 8203553, 38871492, 2715009 #### [facility] [address] [place] [address] WBC corrected for nucl RBC Auto (Bld) [#/Vol] 13.0 E9/L High 4.0-11.0 [facility] Comment on above: Performed By: #### 1 5275979, 8388446, 0195890, 1140797, 7827710, 5186740, 80988554, 0796624 #### [facility] [address] [place] [address] Consultation Noteon 07-18-20 Consultation Note ACUTE CARE [...] Lymph Auto: 19.3 % (07/18/19 05:33:00 EDT) [place] Auto: 6.4 % (07/18/19 05:33:00 EDT) Eos Auto: 0.4 % (07/18/19 05:33:00 EDT) Basophil Auto: 0.4 % (07/18/19 05:33:00 EDT) Neutro Absolute: 5.7 E9/L (07/18/19 05:33:00 EDT) Lymph Absolute: 1.5 E9/L (07/18/19 05:33:00 EDT) [place] Absolute: 0.5 E9/L (07/18/19 05:33:00 EDT) Eos [...] MD, FACS Trauma/Critical Care/Acute Care Surgery Attending [facility] Comment on above: Result Comment: Elec tronically Signed By: Amando GUSTAFSON, Javan Stevens\.br\Date and Time Signed: 07/18/19 10:13 EDT Consultation Note Patient: CHERELLE SCHWARTZ Age: 33 years Sex: Female : 1985 Associated Diagnoses: None Author: Abihnav REDDY MD Chief Complaint 07/18/2019 01:04 EDT Abdominal pain 07/17/2019 20:59 EDT pt has complaints of abdominal pain nausea and vomiting since 2am, states lab work done at [facility] today liver enzymes were elevated history of pancreatitis History of Present Illness 33 years old white female admitted to [facility] with sudden onset of abdominal pain, [...] list: All Problems Pancreatitis / SNOMED CT 739320942 / Confirmed Hypothyroidism / SNOMED CT 98310129 / Confirmed Ovarian dysfunction / SNOMED CT 97097247 / Confirmed Histories Past Medical History: No [...] Auto 73.5 % Lymph Auto 19.3 % [place] Auto 6.4 % Eos Auto 0.4 % Basophil Auto 0.4 % Neutro Absolute 5.7 E9/L Lymph Absolute 1.5 E9/L [place] Absolute 0.5 E9/L Eos Absolute 0.0 E9/L [...] /HPF UA Hyal Cast 0-3 UA Amorph Diasy Present UA Mucous 3+ U beta hCG Ql Negative 07/17/2019 22:12 EDT WBC 13.0 E9/L HI RBC 4.4 E12/L Hgb 13.2 gm/dL Hct 38.9 % MCV 88.1 fL MCH 30.0 pg MCHC 34.0 gm/dL RDW 13.2 % Platelet 253.0 E9/L MPV 8.3 fL Neutro Auto 87.2 % HI Lymph Auto 6.4 % LOW [place] Auto 5.5 % Eos Auto 0.6 % Basophil Auto 0.3 % Neutro Absolute 11.3 E9/L HI Lymph Absolute 0.8 E9/L LOW [place] Absolute 0.7 E9/L Eos Absolute 0.1 E9/L [...] related complications, she agreed to proceed Normal [facility] Comment on above: Result Comment: Elec tronically Signed By: CAPRICE GUSTAFSON, Abhinav\.br\Date and Time Signed: 07/18/19 10:01 EDT ED Clinical Summaryon 2018 ED Clinical Summary (Inserted Image. Sachi ble to display) [place] [id number] ED Clinical Summary Person Information Name: SUKHDEV SCHWARTZ [place] Age: 33 Years : 1985 12:00 AM Sex: Female Language: Lithuanian PCP: LOLI MATIAS MD Marital Status: Phone: [phone] Visit Id: Visit Reason: Vomiting; Nausea; Abdominal pain; ABD PAIN, NAUSEA Speciality: Acuity: 3 Enc Type: Emergency Med Service: Emergency Arrival: 07/17/2019 8:55 PM Discharge: LOS: 000 03:53 Checkin: 07/17/2019 8:55 PM Checkout: 07/18/2019 12:48 AM Dispo Type: Admitted as IP to this [facility] EVENTS: Event Name Event Status [...] 07/18/2019 12:48 AM 07/18/2019 12:48 AM ADDRESS: [facility] [address] [place] [id number] [facility] DOC NOTES: MEDICAL INFORMATION: Prescriptions Given: PATIENT EDUCATION INFORMATION: Instructions: Follow up: DIAGNOSIS: Normal [facility] ED Patient Education Noteon 07-18-2019 ED Patient Education Note Normal [facility] ED Patient Summaryon ED Patient Summary (Inserted Image. Sachi ble to display) [address] [address] Patient Discharge Instructions Person Information Name: SUKHDEV SCHWARTZ Age: 33 Years Arrival Date: 07/17/2019 8:55 PM Discharge Diagnosis: Primary Care Physician: LOLI MATIAS MD Provider Information Primary Provider: Rubio MD, Mehran Advanced Lens Polisher:Oswaldo Fischer PA-C The exam and treatment you received in the Emergency Department were for an urgent problem and are not intended as complete care. It is important that you follow up with a doctor, nurse practitioner, or physician?s liaison inspection laboratory assistant for ongoing care. If your symptoms [...] opioids can be used to help relieve tzwylqhx-lk-ertcdj pain and are often prescribed following a [...] be struggling with addiction, tell your health home care aide and ask for guidance or call [facility]?S National Helpline at 0-247-507-YPPU. v Source: [place] Department of Health and Human Services/Center for Disease Control & Prevention [facility] Medications Given: Medication Dose Route Sodium Chloride 0.9% intravenous solution 1000.00 mL Initial Volume 1000.00 mL/hr IV Left Antecubital [place] morphine 4.00 mg IV Push Left Anterior Chest ondansetron 4.00 mg IV Push Left Antecubital Ana nalbuphine 5.00 mg IV Push Left Antecubital [place] Medication Information: Medications to Continue with No [...] Drug [place]bo [place] Thank you for choosing [facility] Patient Education Materials: JAMES Bain BRITTANY F , have received the following patient education materials/instructions and have verbalized understanding: Patient Education Materials: Follow-up Instructions: Prescriptions: Patient Signature __ Date Clinician/Nurse Signature Date 07/18/19 00:48:50 Normal [facility] Hep Func Panelon 07-18-2019 Albumin [Mass/Vol] 1.2 g/dL Normal 1.1-2.2 [facility] Comment on above: Performed By: #### 1 1784170, 5626936, 9866607, 8141144, 5809449, 8205806, 64335912, 3816686 #### [facility] [address] [place] [address] ALP [Catalytic activity/Vol] 61 Int._Unit/L Normal 21-98 [facility] Comment on above: Performed By: #### 1 1301898, 9214808, 7303624, 6394289, 2240189, 7787799, 33354375, 9614012 #### [facility] [address] [place] [address] ALT No additional P-5'-P [Catalytic activity/Vol] 119 Int._Unit/L High 6-46 [facility] Comment on above: Performed By: #### 1 3650790, 4330915, 9148565, 5968322, 9010744, 5716706, 44114589, 2091172 #### [facility] [address] [place] [address] AST [Catalytic activity/Vol] 106 Int._Unit/L High 5-43 [facility] Comment on above: Performed By: #### 1 7988573, 6225840, 2685872, 3687956, 8069128, 1262039, 92639200, 4319889 #### [facility] [address] [place] [address] Bilirubin.direct [Mass/Vol] 1.6 mg/dL High 0.1-0.9 [facility] Comment on above: Performed By: #### 1 6350258, 2587703, 6446077, 3258845, 5827630, 7867464, 62689055, 0401389 #### [facility] [address] [place] [address] Globulin (S) [Mass/Vol] 2.7 g/dL Normal 1.4-4.0 [facility] Comment on above: Performed By: #### 1 0908478, 3381904, 1953933, 4264017, 7642758, 7627710, 15903326, 6828124 #### [facility] [address] [place] [address] Albumin [Mass/Vol] 3.3 g/dL Normal 3.3-5.0 [facility] Comment on above: Performed By: #### 1 2993906, 7496924, 1297359, 9059993, 6038819, 6008669, 65722635, 6250009 #### [facility] [address] [place] [address] Bilirubin [Mass/Vol] 3.6 mg/dL High 0.0-1.1 [facility] Comment on above: Performed By: #### 1 9879349, 7960923, 1111258, 0767029, 0096878, 6170224, 48871389, 4744457 #### [facility] [address] [place] [address] Bilirubin.direct [Mass/Vol] 2.0 mg/dL High 0.1-0.4 [facility] Comment on above: Performed By: #### 1 6271809, 5743415, 2414905, 6422739, 8742902, 3982612, 35712643, 5734991 #### [facility] [address] [place] [address] Protein [Mass/Vol] 6.0 g/dL Normal 6.0-7.8 [facility] Comment on above: Performed By: #### 1 4350857, 4391798, 7748852, 1274734, 5534772, 6769357, 83689384, 3593806 #### [facility] [address] [place] [address] Albumin [Mass/Vol] 3.8 g/dL Normal 3.3-5.0 [facility] Comment on above: Performed By: #### 1 6070996, 6747104, 8425433, 5970979, 8426488, 1094940, 10527608, 0165004 #### [facility] [address] [place] [address] Albumin [Mass/Vol] 1.4 g/dL Normal 1.1-2.2 [facility] Comment on above: Performed By: #### 1 7504362, 8823549, 7106526, 5996084, 4896261, 7417674, 18420113, 7113113 #### [facility] [address] [place] [address] ALP [Catalytic activity/Vol] 69 Int._Unit/L Normal 21-98 [facility] Comment on above: Performed By: #### 1 5146084, 4807392, 3198638, 6171277, 0581738, 8491936, 38035888, 6548598 #### [facility] [address] [place] [address] ALT No additional P-5'-P [Catalytic activity/Vol] 144 Int._Unit/L High 6-46 [facility] Comment on above: Performed By: #### 1 0750541, 0966484, 7609050, 2083411, 1137801, 5136183, 80651498, 5164070 #### [facility] [address] [place] [address] 70619 AST [Catalytic activity/Vol] 179 Int._Unit/L High 5-43 [facility] Comment on above: Performed By: #### 1 6107414, 7104279, 6310499, 4828202, 4855015, 7087161, 26481046, 1723505 #### [facility] [address] [place] [address] Bilirubin [Mass/Vol] 3.6 mg/dL High 0.0-1.1 [facility] Comment on above: Performed By: #### 1 1983004, 3604931, 0087075, 6678182, 0073599, 0636613, 98656497, 9746685 #### [facility] [address] [place] [address] Bilirubin.direct [Mass/Vol] 1.5 mg/dL High 0.1-0.9 [facility] Comment on above: Performed By: #### 1 1117746, 1436480, 5325083, 7115696, 0673041, 6044408, 97157355, 9415459 #### [facility] [address] [place] [address] Bilirubin.direct [Mass/Vol] 2.1 mg/dL High 0.1-0.4 [facility] Comment on above: Performed By: #### 1 8091580, 8809979, 9050061, 6139166, 2457634, 9219795, 20487549, 4792073 #### [facility] [address] [place] [address] Globulin (S) [Mass/Vol] 2.7 g/dL Normal 1.4-4.0 [facility] Comment on above: Performed By: #### 1 0935007, 4869491, 8637780, 5314153, 5265751, 9321901, 81344651, 5469793 #### [facility] [address] [place] [address] Protein [Mass/Vol] 6.5 g/dL Normal 6.0-7.8 [facility] Comment on above: Performed By: #### 1 4706780, 7282187, 7780549, 2823397, 3665390, 6616854, 30570920, 6753479 #### [facility] [address] [place] [address] History and Physicalon 07-18 History and Physical [...] states she had a hospitalization while in [place] last month with the same was considered [...] Auto: 6.4 % Low (07/17/19 22:12:00 EDT) [place] Auto: 5.5 % (07/17/19 22:12:00 EDT) Eos Auto: 0.6 % (07/17/19 22:12:00 EDT) Basophil Auto: 0.3 % (07/17/19 22:12:00 EDT) Neutro Absolute: 11.3 E9/L High (07/17/19 22:12:00 EDT) Lymph Absolute: 0.8 E9/L Low (07/17/19 22:12:00 EDT) [place] Absolute: 0.7 E9/L (07/17/19 22:12:00 EDT) Eos [...] 2: Mother. Thyroid cancer: Mother and Sister. [facility] Comment on above: Result Comment: Elec tronically Signed By: Aron ALVARADO DO\.br\Date and Time Signed: 07/18/19 02:27 EDT Interdisciplinary Note - Arcadio e Manageron 07-18-2019 INR Coag (Bld) [Relative time] Rounding with Dr. Benjamin, Felicia ACEVEDO, Rosie [facility], and Jeanette GOODRICH with another patient. [...] needs at discharge. lives with spouse. Normal [facility] Lactic Acidon 07-18-2019 Lactate [Mass/Vol] 10.1 mg/dL Normal 4.5-19.8 [facility] Comment on above: Performed By: #### 1 3968459, 0924371, 5821145, 9498089, 0236240, 0332360, 96896970, 4446758 #### [facility] [address] [place] [address] Lipase Levelon 07-18-2019 Lipase [Catalytic activity/Vol] U/L High 13-58 [facility] Comment on above: Result Comment: Resu lt verified by dilution Performed By: #### 1 7524380, 5146314, 0646598, 0278116, 7346309, 4378503, 41478166, 6060290 #### [facility] [address] [place] [address] Main OR Intraoperative Recor don 07-18-2019 Main OR Intraoperative Record IntraOp Document Type FT Summary Primary Physician: Abhinav REDDY MD Finalized Date/Time: 07/18/19 14:39:36 Pt. Name: SUKHDEV SCHWARTZ/Sex: 1985 Female Med Rec #: [id number] Physician: Aron ALVARADO DO Financial #: [id number] Pt. Type: I Room/Bed: [place] [address] Admit/Disch: 07/17/19 20:55:00 - Institution: Case Times FT Entry 1 Patient Times In Room 07/18/19 09:58:00 Out Room 07/18/19 10:24:00 Procedure Times Start 07/18/19 10:05:00 Stop 07/18/19 10:17:00 Anesthesia Times Start 07/18/19 09:58:00 Stop 07/18/19 10:24:00 Last Modified By: Juanita Stein CST 07/18/19 10:27:28 General Comments: 07/18/19 Chart opened to review and send charges Hilda Stein FOOD AND NUTRITION SUPERVISOR Case Attendance FT Entry 1 Entry 2 Entry 3 Case Attendee CAPRICE GUSTAFSON, Abhinav Eaton Jr DO, Davie Cabrera RN, Pamela Role Performed Surgeon - Primary Anesthesiologist of Prison Librarian - Primary Record Time In 07/18/19 10:03:00 07/18/19 09:58:00 07/18/19 09:58:00 Time Out 07/18/19 10:24:00 07/18/19 10:24:00 07/18/19 10:24:00 Procedure ERCP(.) ERCP(.) ERCP(.) Comments Last Modified By: Deborah RN, Pamela Cabrera RN, Pamela Cabrera RN, Pamela 07/18/19 10:32:44 07/18/19 10:27:40 07/18/19 10:27:40 Entry 4 Entry 5 Entry 6 Case Attendee Reny Michaud FOOD AND NUTRITION SUPERVISOR, Shobha Nicolas RT, Kathy Turcios Role Performed [...] Attendee Moy GOODRICH, Humaira Hooper Role Performed Prison Librarian - Other Time In 07/18/19 09:58:00 Time [...] BAE, Davie Perry, Deborah GOODRICH, Pamela, Jerry FOOD AND NUTRITION SUPERVISOR, Jaswant Yeager, Reny K, Fidencio RT, Moy [...] and tissue Entry 1 Skin Integrity Intact, Hypoluxo, Warm, and Skin Abnormality No Dry Outcomes [...] RN Patient Status Stable Skin. Condition Intact, Hypoluxo, Warm, and Dry Airway Maintenance Oxygen in Use? No Airway Device N/A Outcomes Met? Yes Last Modified By: Pamela Cabrera RN 07/18/19 10:15:20 Post-Care Text: The patient is free from signs and symptoms of injury related to transfer/transport General Comments: Report given to SPECIALTY DEPARTMENT SUPERVISOR/AW radar scientist Administration FT Pre-Care Text: Verifies allergies, administers prescribed medications and solutions, administers prescribed antibiotic therapy and immunizing agents as ordered, evaluates response to medications Administers prescribed medications and solutions Entry 1 Expiration Date Yes Outcomes Met? Yes Verified Last Modified By: Pamela Cabrera RN 07/18/19 10:15:26 Post-Care Text: The patient received appropriate medication(s) safely administered during the perioperative period For [facility] please see scanned medication reconcilliation form for [...] signs and symptoms of radiation injury Normal [facility] Main OR PACU I Recordon 10 Main OR PACU I Record PACU Phase I Document Type FT Summary Primary Physician: Abhinav REDDY MD Finalized Date/Time: 07/18/19 10:47:23 Pt. Name: SUKHDEV SCHWARTZ Antoni Garcia./Sex: 1985 Female Med Rec #: [id number] Physician: Aron ALVARADO DO Financial #: [id number] Pt. Type: I Room/Bed: [place] [address] Admit/Disch: 07/17/19 20:55:00 - Institution: Case Times [...] By: Carin Iverson RN 07/18/19 10:47 Normal [facility] Main OR Preoperative Recordo n 07-18-2019 Main OR Preoperative Record Holding Area Document Type FT Summary Primary Physician: Abhinav REDDY MD Finalized Date/Time: 07/18/19 09:36:36 Pt. Name: SEN SCHWARTZTRUMAN Garcia./Sex: 1985 Female Med Rec #: [id number] Physician: Aron ALVARADO DO Financial #: [id number] Pt. Type: I Room/Bed: [facility]/ Admit/Disch: 07/17/19 20:55:00 - Institution: Case Times [...] Patient states Yes Comment - Adult ip [id number] COMING postop adult Supervision supervision available Case [...] RN, Al, Kellen POZO 07/18/19 09:36 Normal [facility] PT & PTTon 07-18-2019 aPTT Coag (PPP) [Time] 28.1 second(s) Normal 25.1-36.5 [facility] Comment on above: Result Comment: Hepa rin therapeutic range (represented by Anti-Factor Xa activity of 0.2 - 0.4 U/mL) corresponds to PTT of 56.6 - 109.0 sec. Performed By: #### 1 [id number], 2540720, 6287244, 8791060, 4655497, 5315587, 28570615, 3087533 #### [facility] [address] [place] [address] INR Coag (PPP) [Relative time] 1.0 {INR} [facility] Comment on above: Result Comment: INR results are specifically intended to assess patients stabilized on long-term Anticoagulation therapy suggested INR?s ?Less Intensive Anticoagulation? 2.0 ? 3.0 Conventional Range 3.0 ? 4.5 Performed By: #### 1 [id number], 1890686, 3678926, 6134031, 3200799, 6367754, 20020038, 6864084 #### [facility] [address] [place] [address] PT Coag (PPP) [Time] 11.9 second(s) Normal 10.2-12.9 [facility] Comment on above: Performed By: #### 1 7173944, 0376533, 8830745, 9569737, 1133207, 1398603, 50532117, 7561172 #### [facility] [address] [place] [address] Prescriptions/Work Noteson 1 Prescriptions/Work Notes Pt to US at this time, via cart. Normal [facility] Progress Note-Nurseon 2018 Progress Note-Nurse SIMI Murillo aware of patient c/o pain. Normal [facility] Progress Note-Nurse Pt care report provi ded to JOLEEN Chavez at this time. Normal [facility] U BetaHcg Qualon 07-18-2019 HCG.beta subunit (U) [Moles/Vol] Negative Normal [facility] Comment on above: Performed By: #### 1 5633481, 3691680, 7016481, 2730935, 5176055, 3346868, 00088208, 5434323 #### [facility] [address] [place] [address] UA With Cult Reflexon 2018 Bacteria LM Ql (Urine sed) 1+ /HPF Abnormal Trace [facility] Comment on above: Performed By: #### 1 4782508, 3368083, 8877101, 6870192, 4743598, 8251244, 09097666, 3205481 #### [facility] [address] [place] [address] Bilirubin Ql (U) 3+ Abnormal Negative [facility] Comment on above: Performed By: #### 1 8309416, 7215286, 8577176, 8825147, 8538616, 3288518, 11387369, 3749757 #### [facility] [address] [place] [address] Clarity (U) SL CLOUDY Abnormal Clear [facility] Comment on above: Performed By: #### 1 9297186, 8196933, 7282299, 4087111, 0650356, 7315724, 01547105, 9014607 #### [facility] [address] [place] [address] Color (U) DARK YELLO Abnormal Yellow [facility] Comment on above: Performed By: #### 1 8991975, 0935434, 0526896, 8112901, 6250285, 6126899, 80247212, 8572855 #### [facility] [address] [place] [address] Crystals LM Ql (Urine sed) Present Normal [facility] Comment on above: Performed By: #### 1 9020889, 5797880, 2645647, 7370061, 9694382, 1661784, 55107577, 3457100 #### [facility] [address] [place] [address] Epithelial cells.squamous LM.HPF (Urine sed) [#/Area] 5-8 Normal 0-2 [facility] Comment on above: Performed By: #### 1 7134021, 3206863, 9961632, 1857390, 5165543, 1284661, 63110624, 3921200 #### [facility] [address] [place] [address] Glucose Test strip (U) [Mass/Vol] Negative Normal Negative [facility] Comment on above: Performed By: #### 1 6409677, 6762163, 4989143, 2222146, 7086478, 2301582, 90191775, 5325070 #### [facility] [address] [place] [address] Hemoglobin Ql (U) TRACE Abnormal Negative [facility] Comment on above: Performed By: #### 1 9689157, 4479424, 3989821, 4379064, 2551039, 5716871, 74308979, 1020999 #### [facility] [address] [place] [address] Ketones (U) [Mass/Vol] 3+ Abnormal Negative [facility] Comment on above: Performed By: #### 1 6425549, 0062864, 0391785, 8530485, 6607000, 0740182, 20082936, 5651461 #### [facility] [address] [place] [address] [place].plasma/Lith ium.RBC (Bld) [Mass ratio] 4-20 Normal 0-3 [facility] Comment on above: Performed By: #### 1 5832964, 8372169, 0180875, 4542963, 5171488, 7244592, 84357008, 3727271 #### [facility] [address] [place] [address] Mucus Ql (Urine sed) 3+ Normal [facility] Comment on above: Performed By: #### 1 2998093, 1718241, 2054064, 0676976, 4367681, 7535761, 08063724, 6395668 #### [facility] [address] [place] [address] Nitrite Ql (U) Negative Normal Negative [facility] Comment on above: Performed By: #### 1 9007242, 3521734, 7714638, 8262940, 0704074, 2701819, 34229690, 9236151 #### [facility] [address] [place] [address] pH (U) 6.0 [pH] 5.0-9.0 [facility] Comment on above: Performed By: #### 1 7779517, 4353172, 5731302, 9253243, 0313974, 7545594, 45298656, 1917678 #### [facility] [address] [place] [address] Protein (U) [Mass/Vol] TRACE Abnormal Negative [facility] Comment on above: Performed By: #### 1 8349118, 5298254, 5106808, 1851995, 8211567, 8650829, 74497488, 8992332 #### [facility] [address] [place] [address] Specific gravity (U) [Rel density] >=1.030 1.005-1.030 [facility] Comment on above: Performed By: #### 1 7169959, 7750433, 3110463, 9039151, 2797624, 0390942, 69118845, 1101662 #### [facility] [address] [place] [address] UA Spec Desc Clean Catch Normal [facility] Comment on above: Performed By: #### 1 3343024, 0602291, 6094610, 3406737, 2545105, 0590264, 92102365, 5406994 #### [facility] [address] [place] [address] Urobilinogen Qn (U) 2.0 {Payal'U}/dL Abnormal 0.0-1.0 [facility] Comment on above: Performed By: #### 1 7360807, 2178927, 5232007, 7544970, 5616754, 3861547, 12722986, 9160194 #### [facility] [address] [place] [address] WBC Auto Ql (U) TRACE Abnormal Negative [facility] Comment on above: Performed By: #### 1 7005598, 5011355, 2829800, 0223214, 5830900, 8051778, 34070961, 2131845 #### [facility] [address] [place] [address] WBC casts LM.LPF (Urine sed) [#/Area] 0-3 Normal [facility] Comment on above: Performed By: #### 1 7154178, 5953791, 7286182, 7751928, 0142267, 4566306, 25640187, 9669156 #### [facility] [address] [place] [address] WBC LM.HPF (Urine sed) [#/Area] 0-5 Normal 0-5 [facility] Comment on above: Performed By: #### 1 8235241, 7620392, 9636140, 7874757, 7934814, 2221834, 44889658, 7207096 #### [facility] [address] [place] [address] US Gallbladderon 07-18-2019 US Gallbladder Exam Date/Time: [...] MD Transcribed by: MADISON Technologist: LALY Earl [facility] XR ERCP Biliary Ducton 07-18 XR ERCP Biliary Duct Exam Date/Time: 07/18/2019 10:25 EDT Reason for Exam: ercp Report IMPRESSION: DISTAL COMMON BILE DUCT STONE, WITH APPARENT REMOVAL FOLLOWING PASSAGE OF A BALLOON CATHETER. SUSPECTED SHORT SEGMENT SPASM OF THE DISTAL MOST COMMON BILE DUCT. CLINICAL HISTORY: ERCP. COMMENT: 6 limited [id number] C-arm images were obtained during an ERCP [...] mGy = 62.1 Fluoro Time: 141.1s Normal [facility] eGFRon 07-18-2019 GFR/1.73 sq M predicted among blacks MDRD (S/P/Bld) [Vol rate/Area] mL/min/{1.73_m2} Normal >=59 [facility] Comment on above: Order Comment: Order added by Discern Expert. Result Comment: eGFR is race adjusted. AA=. Performed By: #### 1 6333764, 7030715, 2104914, 3946309, 6785968, 4926835, 79909335, 8115927 #### [facility] [address] [place] [address] GFR/1.73 sq M predicted among non-blacks MDRD (S/P/Bld) [Vol rate/Area] mL/min/{1.73_m2} Normal >=59 [facility] Comment on above: Order Comment: Order added by Discern Expert. Result Comment: Warehouse Associate ivan kidney disease could be indicated at eGFR's of less than 60 mL/min/1.73m2. Kidney failure is indicated at less than 15 mL/min/1.73m2. Performed By: #### 1 3039188, 3832973, 0335281, 8434241, 4387340, 5414337, 51193253, 9021370 #### [facility] [address] [place] [address] GFR/1.73 sq M predicted among blacks MDRD (S/P/Bld) [Vol rate/Area] mL/min/{1.73_m2} Normal >=59 [facility] Comment on above: Order Comment: Order added by Discern Expert. Result Comment: eGFR is race adjusted. AA=. Performed By: #### 1 8229741, 2225716, 7970668, 5770171, 2751496, 2723065, 34253706, 5131443 #### [facility] [address] [place] [address] GFR/1.73 sq M predicted among non-blacks MDRD (S/P/Bld) [Vol rate/Area] mL/min/{1.73_m2} Normal >=59 [facility] Comment on above: Order Comment: Order added by Discern Expert. Result Comment: Warehouse Associate ivan kidney disease could be indicated at eGFR's of less than 60 mL/min/1.73m2. Kidney failure is indicated at less than 15 mL/min/1.73m2. Performed By: #### 1 9920705, 5415810, 9644332, 1051399, 5379413, 2130520, 91832744, 3317906 #### [facility] [address] [place] [address] Amylaseon 07-17-2019 Amylase [Catalytic activity/Vol] 39 U/L 28 - 100 U/L [place] CBC Auto Differentialon 06-20 Basophils (Bld) [#/Vol] 0.00 10*3/uL [place] Basophils/100 WBC (Bld) 0 % 0 - 2 % [place] Differential Type YES [place] Eosinophils (Bld) [#/Vol] 0.10 10*3/uL [place] Eosinophils/100 WBC (Bld) 1 % 0 - 5 % [place] Erythrocyte distribution width (RBC) [Ratio] 13.3 % 12.1 - 15.2 % [place] Hematocrit (Bld) [Volume fraction] 36.1 % 36 - 46 % [place] Hemoglobin (Bld) [Mass/Vol] 12.3 g/dL 12 - 16 g/dL [place] Lymphocytes (Bld) [#/Vol] 1.50 10*3/uL [place] Lymphocytes/100 WBC (Bld) 23 % 15 - 40 % [place] MCH (RBC) [Entitic mass] 30.5 pg 26 - 34 pg [place] MCHC (RBC) [Mass/Vol] 34.1 g/dL 31 - 37 g/dL [place] MCV (RBC) [Entitic vol] 89.3 fL 80 - 100 fL [place] Monocytes (Bld) [#/Vol] 0.40 10*3/uL [place] Monocytes/100 WBC (Bld) 6 % 4 - 8 % [place] Platelet mean volume (Bld) [Entitic vol] NOT REPORTED 6 - 12 fL [place] Platelets (Bld) [#/Vol] 301 10*3/uL [place] Platelets (Bld) [#/Vol] NOT REPORTED [place] RBC (Bld) [#/Vol] 4.04 10*6/uL 4 - 5.2 m/uL [place] RBC morphology finding Nom (Bld) NOT REPORTED [place] Segmented neutrophils/100 WBC (Bld) 70 % 47 - 75 % [place] Segs Absolute 4.60 [place] WBC (Bld) [#/Vol] 6.6 10*3/uL [place] WBC (Bld) [#/Vol] NOT REPORTED per 100 WBC [place] WBC Morphology NOT REPORTED [place] Comprehensive Metabolic Pane avel 07-17-2019 Albumin [Mass/Vol] 4.4 g/dL 3.5 - 5.2 g/dL [place] Albumin/Globulin [Mass ratio] NOT REPORTED [place] ALP [Catalytic activity/Vol] 84 U/L 35 - 104 U/L [place] ALT [Catalytic activity/Vol] 153 U/L High 5 - 33 U/L [place] Anion gap [Moles/Vol] 11 mmol/L 9 - 17 mmol/L [place] AST [Catalytic activity/Vol] 243 U/L High <32 [place] Bilirubin Ql (U) 2.37 mg/dL High 0.3 - 1.2 mg/dL [place] Bun/Cre Ratio 27 High [place] Calcium [Mass/Vol] 9.9 mg/dL 8.6 - 10. 4 mg/dL [place] Chloride [Moles/Vol] 104 mmol/L 98 - 107 mmol/L [place] CO2 [Moles/Vol] 24 mmol/L 20 - 31 mmol/L [place] Creatinine [Mass/Vol] 0.49 mg/dL Low 0.5 - 0.9 mg/dL [place] GFR >60 >60 mL/min [place] GFR Non- >60 >60 mL/min [place] GFR/1.73 sq M predicted among non-blacks MDRD (S/P/Bld) [Vol rate/Area] [place] Comment on above: Average GFR for 30-3 9 years old: 107 mL/min/1.73sq m Chronic Kidney Disease: <60 mL/min/1.73sq m Kidney failure: <15 mL/min/1.73sq m eGFR calculated using average adult body mass. Additional eGFR calculator available at: http://www.[employer]/multiple_crcl_2012.htm GFR/1.73 sq M predicted among non-blacks MDRD (S/P/Bld) [Vol rate/Area] NOT REPORTED [place] Glucose [Mass/Vol] 97 mg/dL 70 - 99 mg/dL [place] Interpretation and review of laboratory results Abnormal [place] Potassium [Moles/Vol] 3.6 mmol/L Low 3.7 - 5.3 mmol/L [place] Protein [Mass/Vol] 7.5 g/dL 6.4 - 8.3 g/dL [place] Sodium [Moles/Vol] 139 mmol/L 135 - 144 mmol/L [place] Urea nitrogen [Mass/Vol] 13 mg/dL 6 - 20 mg/dL [place] Lipaseon 07-17-2019 Lipase [Catalytic activity/Vol] 20 U/L 13 - 60 U/L [place] Otheron 07-17-2019 Immature granulocytes (Bld) [#/Vol] NOT REPORTED 0 % [place] US HEAD NECK SOFT TISSUE THY ROIDon 07-14-2019 Stable nodules with no follow-up needed. [place] EXAM: US HEAD NECK S OFT [...] lobe: 4.9 x 1.3 x 1.9 cm. [place] Misha, Mhpn Incoming R adiant Results From [employer] - 07/14/2019 3:21 PM EDT EXAM: US [...] IMPRESSION: Stable nodules with no follow-up needed. [place] TSHon 07-07-2019 TSH Qn 0.78 m[IU]/L Normal 0.44 - 3.98 [facility] Comment on above: Result Comment: TSH testing is performed using different testing methodology at [facility] than at other [facility]. Direct result comparisons should only be made within the same method. . Patients receiving more than 5 mg/day of biotin may have interference in test results. A sample should be taken no sooner than eight hours after previous dose. Contact [phone] for additional information. Performed By: #### T SH2 #### [facility] [address] [place] [address] TSHon 05-25-2019 TSH Qn 0.77 m[IU]/L Normal 0.44 - 3.98 [facility] Comment on above: Result Comment: TSH testing is performed using different testing methodology at [facility] than at [facility]. Direct result comparisons should only be made within the same method. . Patients receiving more than 5 mg/day of biotin may have interference in test results. A sample should be taken no sooner than eight hours after previous dose. Contact [phone] for additional information. Performed By: #### T SH2 #### [facility] [address] [place] [address] TSHon 01-18-2019 TSH Qn 0.75 m[IU]/L Normal 0.44 - 3.98 [facility] Comment on above: Result Comment: TSH testing is performed using different testing methodology at [facility] than at other [facility]. Direct result comparisons should only be made within the same method. . Patients receiving more than 5 mg/day of biotin may have interference in test results. A sample should be taken no sooner than eight hours after previous dose. Contact [phone] for additional information. Performed By: #### T SH2 #### [facility] [address] [place] [address] TSHon 01-10-2019 TSH Qn 1.27 m[IU]/L Normal 0.44 - 3.98 [facility] Comment on above: Result Comment: TSH testing is performed using different testing methodology at [facility] than at other [facility]. Direct result comparisons should only be made within the same method. . Patients receiving more than 5 mg/day of biotin may have interference in test results. A sample should be taken no sooner than eight hours after previous dose. Contact [phone] for additional information. Performed By: #### T SH2 #### [facility] [address] [place] [address] TSHon 12-07-2018 TSH Qn 0.86 m[IU]/L Normal 0.44 - 3.98 [facility] Comment on above: Result Comment: TSH testing is performed using different testing methodology at [facility] than at other [facility]. Direct result comparisons should only be made within the same method. . Patients receiving more than 5 mg/day of biotin may have interference in test results. A sample should be taken no sooner than eight hours after previous dose. Contact [phone] for additional information. Performed By: #### T SH2 #### [facility] [address] [place] [address] EXT LAB FERRITINon 9 Ferritin mass conc 97 ng/mL [facility] External Lab CBC (With or wi thout Diff)on 11-12-2018 Basophils (Bld) [#/Vol] 0.0 10*3/uL [facility] Basophils/100 WBC (Bld) 0.8 % [facility] Eosinophils (Bld) [#/Vol] 0.1 10*3/uL [facility] Eosinophils (Bld) [#/Vol] 2.5 10*3/uL [facility] Erythrocyte distribution width (RBC) [Ratio] 12.8 % [facility] Hematocrit (Bld) [Volume fraction] 39.1 % [facility] Hemoglobin (Bld) [Mass/Vol] 13.2 g/dL [facility] Lymphocytes (Bld) [#/Vol] 1.8 10*3/uL [facility] Lymphocytes (Bld) [#/Vol] 30.4 10*3/uL [facility] MCH (RBC) [Entitic mass] 29.8 pg [facility] MCHC (RBC) [Mass/Vol] 33.7 g/dL [facility] MCV (RBC) [Entitic vol] 88.6 fL [facility] Monocytes (Bld) [#/Vol] 0.4 10*3/uL [facility] Monocytes (Bld) [#/Vol] 7.2 10*3/uL [facility] Neutrophils (Bld) [#/Vol] 59.1 10*3/uL [facility] Neutrophils (Bld) [#/Vol] 3.4 10*3/uL [facility] Platelet mean volume (Bld) [Entitic vol] 7.2 fL [facility] Platelets (Bld) [#/Vol] 308 10*3/uL K/mcL [facility] RBC (Bld) [#/Vol] 4.4 10*6/uL [facility] WBC (Bld) [#/Vol] 5.80 10*3/uL K/mcL [facility] External Lab Comprehensive M etabolic Panelon 11-12-2018 Albumin [Mass/Vol] 4.1 g/dL [facility] Albumin/Globulin [Mass ratio] 1.2 {ratio} [facility] ALP [Catalytic activity/Vol] 52 U/L [facility] ALT [Catalytic activity/Vol] 11 U/L [facility] AST [Catalytic activity/Vol] 15 U/L [facility] Bilirubin Ql (U) 1.0 mg/dL [facility] Calcium [Mass/Vol] 9.5 mg/dL [facility] Chloride [Moles/Vol] 102 mmol/L [facility] Creatinine [Mass/Vol] 0.60 mg/dL [facility] GFR/1.73 sq M predicted among blacks MDRD (S/P/Bld) [Vol rate/Area] [facility] GFR/1.73 sq M predicted among non-blacks MDRD (S/P/Bld) [Vol rate/Area] [facility] Globulin (S) [Mass/Vol] 3.3 g/dL [facility] Glucose [Mass/Vol] 87 mg/dL [facility] HCO3 (Bld) [Moles/Vol] 25 mmol/L [facility] Magnesium [Mass/Vol] [facility] Phosphate [Mass/Vol] mg/dL [facility] Potassium [Moles/Vol] 4.1 mmol/L [facility] Protein [Mass/Vol] 7.4 g/dL [facility] Sodium [Moles/Vol] 137 mmol/L [facility] Urate [Mass/Vol] mg/dL [facility] Urea nitrogen [Mass/Vol] 15 mg/dL [facility] Urea nitrogen/Creatinine [Mass ratio] 25 mg/mg High [facility] External Lab Vitamin D, 25-O Hon 11-12-2018 Vitamin D, 25-OH 55.0 [facility] External Vitamin B12 and Fol ateon 11-12-2018 Cobalamin (Vitamin B12) mass conc 1500 pg/mL Off scale high [facility] Folate 24.8 ng/mL Off scale high [facility] Otheron 11-12-2018 Interpretation and review of laboratory results Abnormal [facility] TSHon 08-13-2018 TSH Qn 0.64 m[IU]/L Normal 0.44 - 3.98 [facility] Comment on above: Order Comment: FXD S TAT TO [phone]; SPOKE W/ALFREDO , 08/12/2018 22:23 Result Comment: TSH testing is performed using different testing methodology at [facility] than at other [facility] hospitals. Direct result comparisons should only be made within the same method. . Patients receiving more than 5 mg/day of biotin may have interference in test results. A sample should be taken no sooner than eight hours after previous dose. Contact [phone] for additional information. FXD STAT TO [phone]; SPOKE W/ALFREDO , 08/12/2018 22:23 Performed By: #### T SH2 #### [facility] [address] [place] [address] Vital Signs Date Time Vital Sign Value Performing Clinician Facility 09-12-2019 15:37-0500 BMI (Body Mass Index) 31.06 kg/m2 [facility] 09-12-2019 15:37-0500 Body weight 103.87 kg [facility] 09-12-2019 15:37-0500 BP Diastolic 85 mm[Hg] [facility] 09-12-2019 15:37-0500 BP Systolic 126 mm[Hg] [facility] 09-12-2019 15:37-0500 Height 182.9 cm [facility] 09-12-2019 15:37-0500 Pulse (Heart Rate) 73 /min [facility] 11-08-2017 09:56-0500 BMI (Body Mass Index) 36.08 kg/m2 [facility] Work Phone: 11-08-2017 09:56-0500 BP Diastolic 81 mm[Hg] [facility] Work [facility]: 11-08-2017 09:56-0500 BP Systolic 120 mm[Hg] [facility] Work Phone: 11-08-2017 09:56-[address] [facility] Work Phone: 11-08-2017 09:56-0500 Pulse (Heart Rate) 70 /min [facility] Work Phone: 11-08-2017 09:56-[address] [facility] Work Phone: 08-09-2017 14:05-0400 BMI (Body Mass Index) 40.01 kg/m2 Behzad [facility] Work Phone: 08-09-2017 14:05-0400 Body Temperature 97.5 [degF] Behzad [facility] Work Phone: 08-09-2017 14:05-0400 BP Diastolic 74 mm[Hg] Behzad [facility] Work Phone: 08-09-2017 14:05-0400 BP Systolic 130 mm[Hg] [facility] Work Phone: 08-09-2017 14:05-0400 Height 182.9 cm [facility] Work Phone: 08-09-2017 14:05-0400 Pulse (Heart Rate) 85 /min [facility] Work Phone: 08-09-2017 14:05-0400 Weight 133.81 kg [facility]azd [facility] Work Phone: 06-01-2017 14:30-0400 BMI (Body Mass Index) 43.26 kg/m2 [facility] Work Phone: 06-01-2017 14:30-0400 Body Temperature 97.81 [degF] [facility] Work Phone: 06-01-2017 14:30-0400 BP Diastolic 82 mm[Hg] [facility] Work Phone: 06-01-2017 14:30-0400 BP Systolic 128 mm[Hg] [facility] Work Phone: 06-01-2017 14:30-0400 Height 182.9 cm [facility] Work Phone: 06-01-2017 14:30-0400 Pulse (Heart Rate) 82 /min Behzad [facility] Work Phone: 06-01-2017 14:30-0400 Weight 144.7 kg [facility] Work Phone: Encounters Encounter Date Encounter Type Care Provider Facility Start: 04-02-2023 End: 04-03-2023 ambulatory [facility] Start: 04-02-2023 End: 04-02-2023 Subsequent hospital visit by physician Loli Matias MD Work Phone: [facility] Laboratory Comment on above: Acquired hypothyroid ism Start: 11-10-2022 End: 11-13-2022 ambulatory [facility] Start: 11-10-2022 End: 11-12-2022 Subsequent hospital visit by physician [facility] Ultrasound Room [facility] Ultrasound Comment on above: Acquired hypothyroid ism Start: 11-06-2022 End: 02-15-[address] DREW MCBRIDE Facility: Start: 01-13-2022 End: 01-15-2022 Subsequent hospital visit by physician Loli Matias MD Work Phone: [facility] Radiology Start: 11-19-2020 End: 11-19-2020 Billy Ramirez Work Phone: [facility] Start: 09-20-2019 End: 09-20-2019 Documentation procedure Behzad Rajendrasinh Rana Work Phone: [facility] Start: 09-18-2019 End: 09-18-2019 Documentation procedure Behzad Rajendrasinh Rana Work Phone: [facility] Start: 09-12-2019 End: 09-12-2019 Patient encounter procedure BEHZAD RAJENDRASINH RANA [facility] Ambulatory Start: 09-12-2019 End: 09-12-2019 Office outpatient visit 15 minutes Behzad Rajendrasinh Rana Work Phone: [facility] Comment on above: Bariatric surgery st atus (Primary Dx); Obesity, Class I, BMI 30-34.9 Start: 07-17-2019 End: 07-17-2019 Subsequent hospital visit by physician Loli Matias [facility] Laboratory Comment on above: Epigastric pain; History of pancreatitis Start: 07-14-2019 End: 07-16-2019 Subsequent hospital visit by physician [facility] Ultrasound Room [facility] Ultrasound Comment on above: Thyroid nodule Start: 11-16-2018 End: 11-16-2018 Documentation procedure Behzad Hu Work Phone: [facility] Start: 10-24-2018 End: 10-24-2018 Patient encounter procedure BEHZAD HU [facility] Ambulatory Start: 04-11-2018 End: 04-11-2018 [facility] Start: 11-08-2017 Office/outpatient vi sit, est, level 3 Behzad Berniceharvinder Binghamsamuel Work Phone: [facility] Start: 08-09-2017 End: 08-09-2017 Office outpatient visit 15 minutes Behzad Queenhortensiakristian [facility] Work Phone: [facility] Comment on above: Bariatric surgery st at[facility] (Primary Dx) Start: 06-01-2017 Postop follow-up visit Behzad majanokristian Mayte Work Phone: [facility] Start: 04-30-2017 End: 05-02-2017 Evaluation and management of inpatient [facility] Start: 04-30-2017 Ambulatory JOSE DRAPER [facility] Start: 04-23-2017 End: 04-27-2017 Ambulatory [facility] Start: 04-05-2012 End: 08-15-2018 Patient encounter procedure Loli Matias MD Work Phone: [facility] Procedures Date Procedure Procedure Detail Performing Clinician Start: 04-02-2023 Assay of thyroid stimulating hormone tsh Loli Matias MD Work Phone: Start: 11-10-2022 Us soft tissue head & neck real time imge docm Nissa oL ELEMENTARY EDUCATION TUTOR - ACLS NURSE Work Phone: Start: 09-13-2019 EXT LAB FERRITIN [...] EXT LAB CBC (WITH OR WITHOUT DIFF) Behzda Binghama Work Phone: Start: 11-12-2018 EXT LAB [...] DTaP/Tdap/Td vaccine (3 - Td or Tdap) [facility] Start: 05-30-2024 DTaP/Tdap/Td vaccine (3 - Td) DTaP/Tdap/Td vaccine (3 - Td) [place] Start: 05-30-2024 DTaP/Tdap/Td vaccine (7 - Td or Tdap) DTaP/Tdap/Td vaccine (7 - Td or Tdap) [facility] Start: 05-30-2024 Tetanus vaccination [place] [facility] Start: 03-24-2024 Depression Screen Depression Screen [facility] Start: 11-18-2022 Depression Screen Depression Screen [facility] Start: 11-18-2022 Thyroid stimulating hormone measurement TSH testing [facility] Start: 2021 Diabetes screen Diabetes screen [facility] Start: 03-28-2021 COVID-19 Vaccine (3 - Booster for Moderna series) COVID-19 Vaccine (3 - Booster for Moderna series) [facility] Start: 09-28-2020 Cervical cancer screen Cervical canc er screen [place] Start: 09-28-2020 Screening for malign ant neoplasm of cervix [facility] Start: 06-18-2020 Influenza vaccinatio n given Sequential Influenza Vaccine (#1) [facility] Start: 06-18-2019 Influenza vaccination Flu vaccine (# 1) [place] Start: 06-18-2019 Influenza vaccinatio n given SEQUENTIAL INFLUENZA VACCINE (#1) [facility] Start: 04-24-2019 End: 04-24-2019 Office Visit 04/24/2019 Office Visit Behzad Rockwell MD [address] [place] [address] [phone] [facility] Start: 08-05-2018 TSH testing TSH testing [facility] [place], [place] Start: 06-18-2018 Influenza vaccinatio n given SEQUENTIAL INFLUENZA VACCINE (#1) [facility] Start: 05-02-2018 Ambulatory 05/02/2018 Off ice Visit Behzad Rockwell MD [address] [place] [address] [phone] [facility] Start: 11-01-2017 Ambulatory 11/01/2017 Off ice Visit Behzad Rockwell MD [address] [place] [address] [phone] [facility] Start: 08-02-2017 Ambulatory 08/02/2017 Off ice Visit Behzad Rockwell MD [address] [place] [address] [phone] [facility] Start: 06-18-2017 Influenza vaccination SEQUENTI AL INFLUENZA VACCINE (#1) [facility] Work Phone: Start: 06-18-2017 SEQUENTIAL INFLUENZA VACCINE (#1) SEQUENTIAL INFLUENZA VACCINE (#1) [facility] Work Phone: Start: 2016 Screening for malign ant neoplasm of cervix HPV (without or with Pap) [facility] Start: 2004 Hepatitis C antibody , confirmatory test Hepatitis C Screening [facility] Start: 2004 Hepatitis C screening Hepatitis C sc reen [facility] Start: 10-04-2002 Hepatitis A vaccine (2 of 2 - 2-dose series) Hepatitis A vaccine (2 of 2 - 2-dose series) [facility] Start: 2001 HIV screen HIV screen [facility] [place] Start: 2001 HIV screening [facility]ga [facility] Start: 12-25-1999 Varicella Vaccine (1 of 2 - 13+ 2-dose series) Varicella Vaccine (1 of 2 - 13+ 2-dose series) [place], [place] Start: 1998 Adolescent depressio n screening assessment Depression Screening (PHQ9) [facility] Start: 1989 History and physical examination, annual for health maintenance Wellness Visit [facility] Start: 12-25-1987 Varicella vaccine (1 of 2 - 2-dose childhood series) Varicella vaccine (1 of 2 - 2-dose childhood series) [facility] Start: 1986 Cytopathology procedure, preparation of smear, genital source PAP SMEAR [facility] Work Phone: Start: 1986 Hepatitis C screening Hepatitis C sc reen [facility] Start: 1986 Screening for malign ant neoplasm of cervix PAP SMEAR [facility] Work Phone: Start: 1986 TETANUS EVERY 10 YR TETANUS EVERY 10 YR [facility] Work Phone: Start: 1986 Tetanus vaccination TETANUS EVERY 10 YR [facility] Work Phone: End: 09-12-2020 Blood zinc measurement Zinc Lab Routine Bariatric surgery status 1 Occurrences starting 09/12/2019 until 09/12/2020 [facility] Comment on above: 1 Occurrences starti ng 09/12/2019 until 09/12/2020 End: 08-10-2018 CBC and Differential CBC and Differential Routine Bariatric surgery status 1 Occurrences starting 08/09/2017 until 08/10/2018 [facility] Work Phone: Comment on above: 1 Occurrences starti ng 08/09/2017 until 08/10/2018 End: 08-10-2018 Ceruloplasmin Ceruloplasmin Routine Bariatric surgery status 1 Occurrences starting 08/09/2017 until 08/10/2018 [facility] Work Phone: Comment on above: 1 Occurrences starti ng 08/09/2017 until 08/10/2018 End: 09-12-2020 Cobalamin (Vitamin B12) [Mass/Vol] Vitamin B12 Lab Routine Bariatric surgery status 1 Occurrences starting 09/12/2019 until 09/12/2020 [facility] Comment on above: 1 Occurrences starti ng 09/12/2019 until 09/12/2020 End: 08-10-2018 Cobalamin (Vitamin B12) mass conc Vitamin B12 Routine Bariatric surgery status 1 Occurrences starting 08/09/2017 until 08/10/2018 [facility] Work Phone: Comment on above: 1 Occurrences starti ng 08/09/2017 until 08/10/2018 End: 08-10-2018 Comprehensive metabolic 2000 panel Comprehensive Metabolic Panel Routine Bariatric surgery status 1 Occurrences starting 08/09/2017 until 08/10/2018 [facility] Work Phone: Comment on above: 1 Occurrences starti ng 08/09/2017 until 08/10/2018 External Lab Iron External Lab I amanda Routine 11/12/2018 [facility] End: 08-09-2018 Ferritin [Mass/volume] in Serum or Plasma Ferritin Routine Bariatric surgery status 1 Occurrences starting 08/09/2017 until 08/09/2018 [facility] Work Phone: Comment on above: 1 Occurrences starti ng 08/09/2017 until 08/09/2018 End: 08-10-2018 Folate Folate Routine Bariatric surgery status 1 Occurrences starting 08/09/2017 until 08/10/2018 [facility] Work Phone: Comment on above: 1 Occurrences starti ng 08/09/2017 until 08/10/2018 End: 09-12-2020 Folate [Mass/Vol] Folate Lab Routine Bariatric surgery status 1 Occurrences starting 09/12/2019 until 09/12/2020 [facility] Comment on above: 1 Occurrences starti ng 09/12/2019 until 09/12/2020 End: 08-10-2018 Hemoglobin A1c/Hemoglobin.total mass fraction (Bld) Hemoglobin A1c Routine Bariatric surgery status 1 Occurrences starting 08/09/2017 until 08/10/2018 [facility] Work Phone: Comment on above: 1 Occurrences starti ng 08/09/2017 until 08/10/2018 End: 09-12-2020 Iron measurement Iron Study with Ferritin Lab Routine Bariatric surgery status 1 Occurrences starting 09/12/2019 until 09/12/2020 [facility] Comment on above: 1 Occurrences starti ng 09/12/2019 until 09/12/2020 End: 08-10-2018 Lipid panel Lipid Panel Routine Bariatric surgery status 1 Occurrences starting 08/09/2017 until 08/10/2018 [facility] Work Phone: Comment on above: 1 Occurrences starti ng 08/09/2017 until 08/10/2018 End: 08-10-2018 PTH, Intact PTH, Intact Routine Bariatric surgery status 1 Occurrences starting 08/09/2017 until 08/10/2018 [facility] Work Phone: Comment on above: 1 Occurrences starti ng 08/09/2017 until 08/10/2018 End: 09-12-2020 Pyridoxal 5 phosphate level Vitamin B6 Lab Routine Bariatric surgery status 1 Occurrences starting 09/12/2019 until 09/12/2020 [facility] Comment on above: 1 Occurrences starti ng 09/12/2019 until 09/12/2020 End: 08-10-2018 Reticulocytes panel - Blood Reticulocyte Routine Bariatric surgery status 1 Occurrences starting 08/09/2017 until 08/10/2018 [facility] Work Phone: Comment on above: 1 Occurrences starti ng 08/09/2017 until 08/10/2018 End: 09-12-2020 Thiamine measurement Vitamin B1, Whole Blood Lab Routine Bariatric surgery status 1 Occurrences starting 09/12/2019 until 09/12/2020 [facility] Comment on above: 1 Occurrences starti ng 09/12/2019 until 09/12/2020 End: 08-10-2018 Thyrotropin Qn TSH Routine Bariatric surgery status 1 Occurrences starting 08/09/2017 until 08/10/2018 [facility] Work Phone: Comment on above: 1 Occurrences starti ng 08/09/2017 until 08/10/2018 End: 04-02-2023 Thyroxine (T4) free [Mass/volume] in Serum or Plasma [facility] Comment on above: 1 Occurrences starti ng 04/02/2023 until 04/02/2023 End: 08-10-2018 Vitamin A Vitamin A Routine Bariatric surgery status 1 Occurrences starting 08/09/2017 until 08/10/2018 [facility] Work Phone: Comment on above: 1 Occurrences starti ng 08/09/2017 until 08/10/2018 End: 09-12-2020 Vitamin A measurement Vitamin A Lab Routine Bariatric surgery status 1 Occurrences starting 09/12/2019 until 09/12/2020 [facility] Comment on above: 1 Occurrences starti ng 09/12/2019 until 09/12/2020 End: 08-10-2018 Vitamin B1, Whole Blood Vitamin B1, Whole Blood Routine Bariatric surgery status 1 Occurrences starting 08/09/2017 until 08/10/2018 [facility] Work Phone: Comment on above: 1 Occurrences starti ng 08/09/2017 until 08/10/2018 End: 08-10-2018 Vitamin B6 Vitamin B6 Routine Bariatric surgery status 1 Occurrences starting 08/09/2017 until 08/10/2018 [facility] Work Phone: Comment on above: 1 Occurrences starti ng 08/09/2017 until 08/10/2018 End: 09-12-2020 Vitamin D, 25-hydroxy measurement Vitamin D, Total, 25-OH Lab Routine Bariatric surgery status 1 Occurrences starting 09/12/2019 until 09/12/2020 [facility] Comment on above: 1 Occurrences starti ng 09/12/2019 until 09/12/2020 End: 08-10-2018 Vitamin D, Total, 25-OH Vitamin D, Total, 25-OH Routine Bariatric surgery status 1 Occurrences starting 08/09/2017 until 08/10/2018 [facility] Work Phone: Comment on above: 1 Occurrences starti ng 08/09/2017 until 08/10/2018 End: 08-10-2018 Zinc Zinc Routine Bariatric surgery status 1 Occurrences starting 08/09/2017 until 08/10/2018 [facility] Work Phone: Comment on above: 1 Occurrences starti ng 08/09/2017 until 08/10/2018 Immunizations Immunization Date Immunization Notes Care Provider [facility] 07-23-2022 influenza, injectabl e, quadrivalent, preservative free Loli Mtaias MD Work Phone: [facility] 09-10-2021 influenza virus vaccine, unspecified formulation Loli Matias MD Work Phone: [facility] Work Phone: 10-28-2020 COVID-19, Moderna, Primary or Immunocompromised, PF, 100mcg/0.5mL Loli Matias MD Work Phone: [facility] Work Phone: 10-28-2020 COVID-19, Pfizer Pur ple top, DILUTE for use, 12+ yrs, 30mcg/0.3mL dose Loli Matias MD Work Phone: [facility] Work Phone: 10-04-2020 COVID-19, Moderna, Primary or Immunocompromised, PF, 100mcg/0.5mL Loli Matias MD Work Phone: [facility] Work Phone: 10-04-2020 COVID-19, Pfizer Pur ple top, DILUTE for use, 12+ yrs, 30mcg/0.3mL dose Loli Matias MD Work Phone: [facility] 08-04-2017 tuberculin skin test ; purified protein derivative solution, intradermal [facility], [place] 08-04-2017 unknown vaccine or immune globulin Loli Matias MD Work Phone: [facility] 05-30-2014 tetanus toxoid, redu rachael diphtheria toxoid, and acellular pertussis vaccine, adsorbed [facility] 04-05-2012 tetanus toxoid, redu rachael diphtheria toxoid, and acellular pertussis vaccine, adsorbed [facility] 04-05-2012 tuberculin skin test ; purified protein derivative solution, intradermal [facility] 02-24-2006 hepatitis B vaccine, pediatric or pediatric/adolescent dosage Loli Matias MD Work Phone: [facility] 10-26-2005 hepatitis B vaccine, pediatric or pediatric/adolescent dosage Loli Matias MD Work Phone: [facility] 09-24-2005 hepatitis B vaccine, pediatric or pediatric/adolescent dosage Loli Matias MD Work Phone: [facility] 04-04-2002 hepatitis A and hepatitis B vaccine Loli Matias MD Work Phone: [facility] 04-04-2002 TD(adult) unspecifie d formulation Loli Matias MD Work Phone: [facility] 01-28-1999 measles, mumps and rubella virus vaccine Loli Matias MD Work Phone: [facility] 04-17-1992 diphtheria, tetanus toxoids and acellular pertussis vaccine, unspecified formulation Loli Matias MD Work Phone: [facility] 05-06-1988 diphtheria, tetanus toxoids and pertussis vaccine Loli Matias MD Work Phone: [facility] 05-06-1988 measles, mumps and rubella virus vaccine Loli Matias MD Work Phone: [facility] 01-01-1988 diphtheria, tetanus toxoids and pertussis vaccine Loli Matias MD Work Phone: [facility] 05-01-1987 diphtheria, tetanus toxoids and pertussis vaccine Loil Matias MD Work Phone: [facility] Payers Date Payer Category Payer Unknown [id number] 2022 Unknown [id number] 2019 Unknown BCBS [place] P PO [id number] 2019-Present [phone] [address] [place] [address] [id number] 2019 Unknown [facility] [place] CE PLUS [id number] 2019-Present [id number] 2018 Unknown [id number] 2018 Private Health Insurance [employer] A ETNA CHOICE POS/POSII/PREMIER CARE/PREMIER CARE PLUS xxxxxxxxxx 2018-Present xxxxxxxxxx [id number] 2018 Private Health Insurance [id number] 2017 Unknown [id number] 2017 Unknown [id number] 1986 Unknown [id number] 1986 Unknown [id number] 1986 Unknown [id number] 1986 Unknown [id number] 1986 Unknown [id number] 1986 Unknown [id number] 1959 Self-pay 1959 Unknown [id number] Unknown [id number] Social History Date Type Detail Facility Start: 06-01-2017 End: 03-24-2023 Tobacco smoking status SDIS Never smoker [facility] Work Phone: Start: 1985 Sex Assigned At Not on file O [facility] Work Phone: Start: 04-26-2019 End: 07-17-2019 Alcohol intake No [employer]- [place], [place] Start: 09-12-2019 End: 03-24-2023 Alcohol intake Current non-drinker of alcohol (finding) [facility] Start: 09-12-2019 End: 03-24-2023 Tobacco use and exposure Never used [facility] Start: 01-13-2022 Alcohol intake [employer] Work Phone: Start: 11-18-2021 History SDOH Financial 5 [employer] Work Phone: Start: 11-18-2021 End: 03-24-2023 History SDOH Food Worry 1 [employer] Phone: Start: 03-24-2023 History SDOH Financial 4 [employer] Start: 03-24-2023 History SDOH Transpo rt Non-Med 2 [employer] Medical Equipment Procedure Code Equipment Code Equipment Origin al Text Equipment Identifier Dates Kit 4ml Vh S/D Tisseel Frozen - [id number] Start: 04-30-2017 Strip Ech 60 Pranav nf Bovine Dorothy-Strips Dry W/[employer] - [id number] Start: 04-30-2017 Kit 4ml Vh S/D Tisseel Frozen - [id number] Start: 04-30-2017 Strip Ech 60 Pranav nf Bovine Dorothy-Strips Dry W/[employer] - [id number] Start: 04-30-2017 Kit 4ml Vh S/D Tisseel Frozen - [id number] Start: 04-30-2017 Strip Ech 60 Pranav nf Bovine Dorothy-Strips Dry W/[employer] - [id number] Start: 04-30-2017 Kit 4ml Vh S/D Tisseel Frozen - [id number] Start: 04-30-2017 Strip Ech 60 Pranav nf Bovine Dorothy-Strips Dry W/[employer] - [id number] Start: 04-30-2017 Kit 4ml Vh S/D Tisseel Frozen - [id number] Start: 04-30-2017 Strip Ech 60 Pranav nf Bovine Dorothy-Strips Dry W/[employer] - [id number] Start: 04-30-2017 Kit 4ml Vh S/D Tisseel Frozen - [id number] Start: 04-30-2017 Comment on above: Description: 8ml use d ( 2-4ml kits) Clarification for billing purpose 8 ml = 4 used 0 wasted Strip Ech 60 Pranav nf Bovine Dorothy-Strips Dry W/[employer] - [id number] Start: 04-30-2017 Comment on above: Description: Charge Only Kit 4ml Vh S/D Tisseel Frozen - [id number] Start: 04-30-2017 Strip Ech 60 Pranav nf Bovine Dorothy-Strips Dry W/[employer] - [id number] Start: 04-30-2017 Kit 4ml Vh S/D Tisseel Frozen - [id number] Start: 04-30-2017 Strip Ech 60 Pranav nf Bovine Dorothy-Strips Dry W/[employer] - [id number] Start: 04-30-2017 Evaluation note Note Date & Type Note Facility Evaluation note Diagnosis Acquired hypothyroidism Unspecified hypothyroidism documented in this encounter [facility] [employer] Phone: Evaluation note Note Date & Type Note Facility Evaluation note Diagnosis Acquired hypothyroidism Unspecified hypothyroidism [facility] this [facility] Diagnosis Bariatric surgery status - P [...] FoundDocuments on File Type Date Recorded Patient Gear Technician Expl anation Advance Directives and Living Will Latest Code Status on File Code Status Date Activated Date Inactivated Comments Full Code 04/30/2017 12:41 PM 05/02/2017 7:17 PM Documents on File Type Date Recorded Patient Gear Technician Expl anation Advance Directives and Living Will Power of Finish Inspector Documents on File Type Date Recorded Patient Gear Technician Expl anation Advance Directives and Living Will Power of Finish Inspector Documents on File Type Date Recorded Patient Gear Technician Expl anation ACP-Advance Directive ACP-Power of Finish Inspector History of Present Illness * Behzad Hu MD - 08/09/2017 2:32 PM EDT Formatting of this note may be different from the original. [facility] POSTOP BARIATRIC VISIT PATIENT NAME: [...] W/ BIOPSY; Surgeon: Behzad Hu MD; Location: [facility]; Service: GASTRIC SLEEVE BYPASS LAPAROSCOPIC WITH EGD N/A 04/30/2017 Procedure: LAPAROSCOPIC SLEEVE GASTRECTOMY HIATAL HERNIA REPAIR LIVER BIOPSY ESOPHAGOGASTRODUODENOSCOPY; Surgeon: Behzad Hu MD; Location: [facility] Main OR; Service: Social History Social History [...] (40 mg total) by mouth daily. pediatric [id number] (flintstones complete) Chew Chew and Swallow Take [...] Hu MD - 09/12/2019 4:49 PM EST [facility] POSTOP BARIATRIC VISIT PATIENT NAME: [...] W/ BIOPSY; Surgeon: Behzad Hu MD; Location: [facility]; Service: GASTRIC SLEEVE BYPASS LAPAROSCOPIC WITH EGD N/A 04/30/2017 Procedure: LAPAROSCOPIC SLEEVE GASTRECTOMY HIATAL HERNIA REPAIR LIVER BIOPSY ESOPHAGOGASTRODUODENOSCOPY; Surgeon: Behzad Hu MD; Location: [facility] Main OR; Service: Social History Socioeconomic History [...] file Gets together: Not on file Attends gnosticist service: Not on file Active member of [...] HEAD/NECK TISSUES,REAL TIME Loli Matias MD [address] [place] [address] Specialty Diagnoses / Procedures Referred By Contac t Referred To Contact Radiology Diagnoses Acquired hypothyroidism Procedures US HEAD NECK SOFT TISSUE THYROID Nissa Lo APRN - J[facility] [address] [address] Referral ID Status Reason Start Date Expiration Date V isits Requested Visits Authorized [id number] Pending Review 11/09/2022 11/09/2023 1 1 Hospital [...] ALVARADO DO Consulting Physician - CAPRICE GUSTAFSON, [facility] Course Pt is a 33 F admitted [...] All Problems Ovarian dysfunction / SNOMED CT 01958553 / Confirmed Hypothyroidism / SNOMED CT 46071126 / Confirmed Pancreatitis / SNOMED CT 421945444 / Confirmed Physical Examination Vital Signs 07/18/2019 [...] All Problems Ovarian dysfunction / SNOMED CT 85190075 / Confirmed Hypothyroidism / SNOMED CT 35232305 / Confirmed Incomplete miscarriage / SNOMED CT 722754691 / Confirmed missed Pancreatitis / SNOMED CT 059518607 / Confirmed Physical Examination Vital Signs 10/20/2019 [...] All Problems Ovarian dysfunction / SNOMED CT 55542713 / Confirmed Hypothyroidism / SNOMED CT 68554867 / Confirmed Pancreatitis / SNOMED CT 277964541 / Confirmed Physical Examination Vital Signs 07/18/2019 [...] All Problems Ovarian dysfunction / SNOMED CT 56978784 / Confirmed Hypothyroidism / SNOMED CT 83427406 / Confirmed Incomplete miscarriage / SNOMED CT 619788927 / Confirmed missed Pancreatitis / SNOMED CT 475718561 / Confirmed Physical Examination Vital Signs 10/20/2019 [...] section and content) DATE CREATED AUTHOR 04/15/2018 [facility] DATE CREATED AUTHOR AUTHOR'S ORGANIZ ATION 07/23/2019 [facility] DATE CREATED AUTHOR AUTHOR'S ORGANIZ ATION 09/13/2019 [facility] DATE CREATED AUTHOR AUTHOR'S ORGANIZ ATION 06/18/2020 [facility] DATE CREATED AUTHOR AUTHOR'S ORGANIZ [...] HEAD/NECK TISSUES,REAL TIME Loli Matias MD [address] [place] [address] Reason Comments Follow-up GS 04/30/17. Prop wt: 350. 10/24/18 229lbs 09/12/19 wt= 240lbs Reason Onset Date Comments Medication Refill 11/19/2020 Specialty Diagnoses / Procedures Referred By Contac t Referred To Contact Radiology Diagnoses Acquired hypothyroidism Procedures US HEAD NECK SOFT TISSUE THYROID Nissa Lo, ELEMENTARY EDUCATION TUTOR - ACLS NURSE [address] [place] [address] Referral ID Status Reason Start Date Expiration Date V isits Requested Visits Authorized [id number] Pending Review 11/09/2022 11/09/2023 1 1 Care Teams (unrecognized sec tion and content) Medicaid Billing Specialist Relationship Specialty Start Date End Date Loli Matias MD [address] [place] [id number] PCP - General 07/24/16 Medicaid Billing Specialist Relationship Specialty Start Date End Date Loli Matias MD [address] [place] [address] PCP - General 07/24/16 Medicaid Billing Specialist Relationship Specialty Start Date End Date Loli Matias MD [address] [place] [address] PCP - General 07/24/16 FOR RECORDS [...] BE BASED ON THE PRIMARY CLINICAL RECORDS. [facility]. provides no warranty or guarantee of the accuracy or completeness of information in this document.
== END 2024-02-03 07:28 | disposition home or self-care (01) ==
LOC: VC 07:32
PROVIDERS: PCP Radiology Diagnostic Radiology; Visit Provider Radiology Diagnostic Radiology
DX: I80.02 Phlebitis and thrombophlebitis of superficial vessels of left lower extremity (principal)
CPT/HCPCS: 93971; G0463

== ENCOUNTER 2024-02-09 07:25 | Outpatient (OUT) | payer OTHER, SELFPAY ==
--- NOTE | 2024-02-09 07:28 | VEIN_ITS ---
[address] [address] Patient Name: SUKHDEV WATERMAN MRN: [id number] date: 1985 Sex: F Assigned Patient Location: Current Patient Location: Accession/Order Number: [id number] Exam Date: 02/09/2024 07:35 Report Date: 02/09/2024 10:21 At the request of: DREW MCBRIDE Procedure: VC INJ Foam Sclerosant WUS WELDER JOURNEYMAN PROCEDURE: VC INJ Foam Sclerosant WUS WELDER JOURNEYMAN HISTORY: Pain due to varicose veins of bilateral legs I83.813 Pre-operative Diagnosis: CEAP class C3 venous insufficiency with pain, tenderness, edema and incompetent branch saphenous vein(s), chronic venous insufficiency right leg secondary to venous incompetence Post-operative Diagnosis: CEAP class C3 venous insufficiency with pain, tenderness, edema and incompetent branch saphenous vein(s), chronic venous insufficiency right leg secondary to venous incompetence Procedure Performed: 1. Ultrasound-guided microfoam chemical ablation with Varithenaregistered 2. Intraoperative ultrasound guidance Physician: Eder Beltran M.D. Anesthesia: None Indications for Procedure: 38 year old female. Symptoms including discolored, bulging dilated veins, leg pain, swelling for many years despite conservative medical therapy including medical compression stockings, exercise and analgesics. Prior procedures include endovenous laser ablation. Incompetent varicosities of the right leg. Duplex scan showed reflux and enlarged diameters up to 3 mm. The patient underwent informed consent including management options where the complications of infection, bleeding, pain, and skin injury were discussed. Particular attention was spent discussing thrombus extension and deep vein thrombosis as well as the possibility of pulmonary embolus and treatment with oral or injectable blood thinners. Procedure: The patient walked to the procedure room. All applicable staff donned appropriate apparel. A procedure timeout was performed to confirm correct patient, correct extremity, correct procedure, and correct room set-up including presence of all applicable supplies, devices, and drugs. A duplex ultrasound, performed by myself confirmed the location and incompetence of branch saphenous varicosities and their course was marked on the skin together with the dilated tributaries. The extent of treatment of the vein and the associated varicosities was determined through ultrasound mapping. The skin was prepped and then punctured with a butterfly needle and advanced under ultrasound guidance. The Varithenaregistered canister was activated and the canister was primed and purged as required in the instructions for use. Varithenaregistered was drawn into a sterile syringe. Varithenaregistered was slowly administered at 0.5-1.0 cc/second with close observation by ultrasound of its course in the vessels. Total volume utilized was: 7 mL into a 3 mm varicosity of the distal medial lower right leg. Following administration of Varithenaregistered the leg was elevated and the patient was asked to repeatedly dorsiflex the ankle to limit flow of Varithenaregistered into perforating veins. Once appropriate spasm had been confirmed in the treated veins, the vascular catheter was removed from the leg and light pressure was applied over the puncture site for hemostasis. The common femoral and deep superficial veins were then evaluated for flow and compressibility prior to dressing placement. The lower extremity was kept elevated at 45 degrees above the horizontal and cording material was applied over the saphenous segments and tributaries to allow for eccentric compression over the target vessels including the targeted saphenous vein(s). A multilayer dressing was applied consisting of foam pads, coban and thigh-high 20-30 mm Hg compression elastic support hose were placed on the patient. The leg was lowered only after compression had been applied and the patient was immediately ambulatory. The patient ambulated 10 minutes under supervision and was without apparent concerns at time of release. Post-care instructions include advising patient to keep post-treatment bandages in place and dry for 48 hours, avoid extended periods of inactivity, avoid heavy exercise for one week, wear compression stockings on the treated leg continuously for two weeks, to walk daily for 10 minutes over the next month. The patient was instructed to take an anti-inflammatory medicine as needed and to follow up for color duplex scan of the Saphenous veins, the treated branch saphenous varicosities, the adjacent deep veins, and additional treatment within 7 days. PERSONNEL: Jose Escalante RN Electronically authenticated by: EDER BELTRAN Date: 02/09/2024 10:21
--- OUTSIDE RECORDS SUMMARY | 2024-02-09 07:28 | XMS_ITS | CCD ---
Author Organization [facility] Care Team Providers Care Mapping Specialist Name Role Phone Unavailable Unavailable Unavailable [...] Care Provider Loli Matias Primary Care Provider [phone] RANA, BEHZAD RAJENDRASINH Attending Unavail able LOLI [...] Propensity to adverse reactions to drug 04-26-2019 [place] (5 sources) levoFLOXacin Drug Allergy 04-26-2019 [place] (3 sources) Penicillins Propensity to adverse reactions to drug 12-01-2011 [place] (3 sources) Seasonal allergy Propensity to adverse reactions to substance 11-18-2021 [facility] (2 sources) Penicillins Propensity to adverse reactions to drug 12-01-2011 [facility] (2 sources) Pollen Propensity to adverse reactions to drug 04-26-2019 [facility] Work Phone: Medications Current Medications Medication Drug [...] Active docusate sodium 50 mg / sennosides, skilled nursing 8.6 mg oral tablet (3 sources) take [...] Start: 04-23-2016 take 2 tablets by mo [facility] every eight hours as needed for nausea [...] Active Start: 11-18-2021 [facility] pantoprazole (PROTONIX) 40 MG [...] Class(es) Dates Sig (Normalized) Sig (Original) pediatric guknjoih-sndl-dla (flintstones complete) Chew (2 sources) pediatric trdvkrko-pyzr-rpd (flintstones complete) Chew Chew and Swallow Take two daily . Active Pediatric Multivitamin With Iron And Other Minerals Chewable Tablet (1 source) pediatric nzxzhnwm-dgle-vlp (flintstones complete) Chew Chew and Swallow Take [...] 04-03-2023 Thyroxine, Free 1.4 ng/dL Normal 0.9-1.7 [facility] Comment on above: Performed By: #### F T4 #### [address] [id number] Manufacturing Lead: Jarek Branch MD #### TSH #### [facility] [address] [place] [address] Manufacturing Lead: Drew Lee [facility] TSH [Mass/Vol] 0.83 [facility] Thyroid Stim. Horm.on 2022 Thyroid Stim. Horm. 0.83 uIU/mL Normal 0.30-5.00 [facility] Comment on above: Performed By: #### F T4 #### [place] [address] [place], [place] [id number] Manufacturing Lead: Jarek Branch MD #### TSH #### [facility] [address] [place] [address] Manufacturing Lead: Drew Lee MD US HEAD NECK SOFT [...] Villafuerte Jr., MD 11/11/22 Final result Normal [facility] No significant findings. No specific follow-up needed. [facility] EXAM: US HEAD NECK S [...] isthmus no longer seen. Thyroid echogenicity normal. [facility] Manny Villafuerte Jr., MD - [...] No significant findings. No specific follow-up needed. [employer] Phone: US HEAD NECK SOFT TISSUE THY ROIDOrdered By: Manny Villafuerte on 11-11-2022 [employer] Phone: US HEAD NECK SOFT TISSUE THY ROIDon 11-10-2022 Radiology Study observation (narrative) [employer] Phone: Coding Summary.on 05-31-2020 Coding Summary. CODING DATE: 020 FINAL [facility] STATUS: Home (Routine DC) PAYOR: Leela [...] Conception, Retained, Via Natural or Artificial Opening [id number] Control Bleeding in Davie Grijalva MD 05/27/2020 Genitourinary Tract, Via Natural or Artificial Opening 80329N8 Transfusion of Nonautologous Davie Grijalva MD 05/26/2020 Red Blood Cells into Peripheral Vein, Percutaneous Approach 87062D5 Transfusion of Nonautologous Davie Grijalva MD 05/26/2020 Red Blood Cells into Peripheral Vein, Percutaneous Approach 10698F1 Transfusion of Nonautologous Davie Grijalva MD 05/26/2020 Red Blood Cells into Peripheral Vein, Percutaneous Approach 69394Z9 Transfusion of Nonautologous Davie Grijalva MD 05/26/2020 Red Blood Cells into Peripheral Vein, Percutaneous Approach 65363Z7 Transfusion of Nonautologous Davie Grijalva MD 05/26/2020 Frozen Plasma into Peripheral Vein, Percutaneous Approach 47814B6 Transfusion of Nonautologous Davie Grijalva MD 05/26/2020 Frozen Plasma into Peripheral Vein, Percutaneous Approach 75101M9 Transfusion of Nonautologous Davie Grijalva MD 05/27/2020 Red Blood Cells into Peripheral Vein, Percutaneous Approach NOTE: The code number assigned matches the documented diagnosis and / or procedure in the patient's chart. However, the narrative phrase printed from the coding software may appear abbreviated, or result in slightly different terminology. Coded By: Rae Milton Date Saved: 05/31/2020 11:44 am Normal [facility] IntraOperative Documentson 0 05-31-2020 IntraOperative Documents [id number]:127 Normal [facility] Consent for Procedure/Surger yon 05-28-2020 Consent for Procedure/Surgery [id number]#[id number]:127 Normal [facility] Discharge Instructionson Discharge Instructions [id number]#[id number]:127 Normal [facility] Discharge Instructions Given Worseningon 05-28-2020 Discharge Instructions Given Worsening The following Patient Education Materials have been given to the patient: EducationMaterial Normal [facility] History and Physicalon 05-28 History and Physical [...] Davie Grijalva MD, FACOG lkr Dictated: 05/26/2020 #[id number] Typed 05/27/2020 #[id number] cc: Davie Grijalva MD, [facility]HA[facility] Comment on above: Result Comment: Elec tronically Signed By: Rudi GUSTAFSON, Davie Duong\.br\Date and Time Signed: 05/28/20 08:12 EDT Inpatient Clinical Summaryon 05-28-2020 Inpatient Clinical Summary [place] [id number] Clinical Summary Person Information Name: SUKHDEV SCHWARTZ Stacey/[facility] Age: 34 Years : 1985 Sex: Female PCP: SONIA GUSTAFSON, LOLI Vela Marital Status: Phone: [phone] Race: White Ethnicity: Non- or Language: Filipino Visit Id: Visit Reason: Nausea; Dizziness; Vaginal bleeding; VAG BLEEDING Speciality: Acuity: Other Enc Type: Inpatient Med Service: Obstetrics Arrival: 05/26/2020 11:09:13 Discharge: 05/28/2020 08:40:00 Dispo Type: Home (Routine DC) Address: [address] [facility] [id number] Provider Notes: Diagnosis: 1:Miscarriage; 2:Retained products of [...] range between ( 80.0 and 100.0 ) Independence Auto: 6.7 % -- Normal range between ( 4.0 and 14.0 ) MPV: 7.4 fL -- Normal range between ( 6.4 and 10.8 ) Neutro Auto: 68.3 % -- Normal range between ( 36.0 and 75.0 ) Platelet: 278.0 E9/L -- Normal range between ( 150.0 and 500.0 ) WBC: 7.0 E9/L -- Normal range between ( 4.0 and 11.0 ) Independence Absolute: 0.5 E9/L -- Normal range between [...] Follow up: With: Address: When: Dr. Grijalva [phone] Within 1 to 2 weeks Comments: Call for any problems. Patient Education Information: Menorrhagia Normal [facility] Inpatient Patient Summaryon 05-28-2020 Inpatient Patient Summary [place] [id number] Patient Discharge Instructions PERSON INFORMATION Name: SUKHDEV [...] Follow up: With: Address: When: Dr. Grijalva [phone] Within 1 to 2 weeks Comments: Call [...] hospitalization. HOME CARE INSTRUCTIONS ? Only take ayhu-sze-jsaoxne or prescription medicines as directed by your [...] Document Reviewed: 03/25/2014 ExitCare? Patient Information ?2015 [employer] This information is not intended to replace advice given to you by your health care provider. Make sure you discuss any questions you have with your health care provider. Medication Leaflets: Thank you for choosing [facility] Normal [facility] IntraOperative Documentson 0 8-11-2020 IntraOperative Documents [id number]:127 Normal [facility] Operative Reporton 0 Operative Report Date [...] Davie Grijalva MD, FACOG lkr Dictated: 05/27/2020 #[id number] Typed: 05/27/2020 #[id number] cc: Davie Grijalva MD, MICHA[facility] Comment on above: Result Comment: Elec [...] q6hr, # 15 tab(s), Refills(s) 0, Pharmacy: [facility]16 Documented Medications Documented Multivitamins: 1 tab(s), [...] list: All Problems Pancreatitis / SNOMED CT 373666824 / Confirmed Incomplete miscarriage / SNOMED CT 732999233 / Confirmed missed Ovarian dysfunction / SNOMED CT 76858872 / Confirmed Hypothyroidism / SNOMED CT 83610487 / Confirmed Resolved: / SNOMED CT 628899497 Resolved: / SNOMED CT 968387536 Resolved: / SNOMED CT 023744620 Resolved: / SNOMED CT 813597545 Physical Examination Intake and Output Denies significant [...] 0 . Respiratory: Adequate air exchange with catholic of preoperative function.. Cardiovascular: Cardiovascular function is stable and has returned to preoperative levels.. Neurologic: Pt has returned to preoperative baseline.. Review / Management Condition: Stable. Assessment Anesthetic outcome No anesthetic complications noted. Plan Transfer/ Discharge: Patient can be discharged from PACU when criteria met. Condition good. Normal [facility] Comment on above: Result Comment: Elec tronically [...] q6hr, # 15 tab(s), Refills(s) 0, Pharmacy: [facility] #16 Documented Medications Documented Multivitamins: 1 tab(s), [...] list: All Problems Pancreatitis / SNOMED CT 862783517 / Confirmed Incomplete miscarriage / SNOMED CT 461115305 / Confirmed missed Ovarian dysfunction / SNOMED CT 24012919 / Confirmed Hypothyroidism / SNOMED CT 51723812 / Confirmed Physical Examination Intake and Output [...] (MAY [birth year]:) Respiratory: Adequate air exchange with catholic of preoperative function.. Cardiovascular: Cardiovascular function is stable and has returned to preoperative levels.. Neurologic: Pt has returned to preoperative baseline.. Review / Management Condition: Stable. Assessment Anesthetic outcome No anesthetic complications noted. Plan Transfer/ Discharge: Patient can be discharged from PACU when criteria met. Condition good. [facility] Comment on above: Result Comment: Elec [...] Davie Grijalva MD, FACOG gls Dictated: 05/27/2020 #[id number] Typed: 05/27/2020 #[id number] cc: Davie Grijalva MD, FACOG [facility] Comment on above: Result Comment: Elec tronically Signed By: Rudi GUSTAFSON, Davie Duong\.br\Date and Time Signed: 05/28/20 08:11 EDT Consent for Anesthesiaon Consent for Anesthesia [id number]:127 [facility] FSPon 05-27-2020 Fibrin+Fibrinogen fragments (S) [Mass/Vol] <10 Normal <10 [facility] Comment on above: Performed By: #### 1 0087066, 7767618, 4795993, 0039160, 4648745, 2149067, 09774332, 7281805 #### [facility] [address] [place] [address]276 Fibrin+Fibrinogen fragments (S) [Mass/Vol] <10 Normal <10 [facility] Comment on above: Performed By: #### 1 9769246, 0675607, 6431649, 5579778, 6036900, 8947161, 23032277, 0805362 #### [facility] [address] [place] [address] 16599 Fibrin+Fibrinogen fragments (S) [Mass/Vol] <10 Normal <10 [facility] Comment on above: Performed By: #### 1 0794031, 2110658, 7654194, 1269946, 5814712, 0949063, 72248206, 6743017 #### [facility] [address] [place] [address] 83263 Fibrinogenon 05-27-2020 Fibrinogen Coag (PPP) [Mass/Vol] 181 mg/dL Low 200-393 [facility] Comment on above: Performed By: #### 1 5275224, 1812063, 7072260, 3800443, 0655327, 7589000, 44693776, 1915378 #### [facility] [address] [place] [address] 18501 Fibrinogen Coag (PPP) [Mass/Vol] 178 mg/dL Low 200-393 [facility] Comment on above: Performed By: #### 1 0085368, 1743344, 2987281, 7695812, 5903074, 0524516, 42205494, 7889167 #### [facility] [address] [place] [address] 49740 Fibrinogen Coag (PPP) [Mass/Vol] 174 mg/dL Low 200-393 [facility] Comment on above: Performed By: #### 1 1542612, 1584669, 7861504, 2359384, 1672382, 9789220, 57726992, 8210519 #### [facility] [address] [place] [address] 70492 Hct & Hgbon 05-27-2020 Hematocrit (Bld) [Volume fraction] 23.9 % Low 34.0-46.0 [facility] Comment on above: Performed By: #### 1 5884623, 4791438, 0164789, 4527183, 7531757, 8327517, 44961025, 5962597 #### [facility] [address] [place] [address] 21594 Hemoglobin (Bld) [Mass/Vol] 8.3 g/dL Low 12.0-16.0 [facility] Comment on above: Performed By: #### 1 1555096, 8685608, 2549547, 6628836, 3334250, 0145216, 77930694, 6650480 #### [facility] [address] [place] [address] 51179 Hematocrit (Bld) [Volume fraction] 22.4 % Low 34.0-46.0 [facility] Comment on above: Performed By: #### 1 4040240, 1336088, 3185537, 1690128, 2839450, 8808600, 91451465, 5841565 #### [facility] [address] [place] [address] 38595 Hemoglobin (Bld) [Mass/Vol] 7.8 g/dL Low 12.0-16.0 [facility] Comment on above: Performed By: #### 1 1391635, 7143232, 1460821, 5287657, 2091744, 5421724, 16325488, 6214697 #### [facility] [address] [place] [address] 85425 Hematocrit (Bld) [Volume fraction] 26.2 % Low 34.0-46.0 [facility] Comment on above: Performed By: #### 1 3059715, 0058626, 9596539, 5646851, 5726377, 3331665, 93808674, 3488622 #### [facility] [address] [place] [address] 10021 Hemoglobin (Bld) [Mass/Vol] 8.9 g/dL Low 12.0-16.0 [facility] Comment on above: Performed By: #### 1 8192699, 7726078, 1339921, 1333933, 1513674, 8404021, 99950209, 2512437 #### [facility] [address] [place] [address] IntraOperative Documentson 0 05-27-2020 IntraOperative Documents [id number]:127 Normal [facility] Main OR Intraoperative Recor don 05-27-2020 Main OR Intraoperative Record IntraOp Document Type FT Summary Primary Physician: Davie Grijalva MD Finalized Date/Time: 05/27/20 13:44:47 Pt. Name: SUKHDEV SCHWARTZ Antoni Mo/Sex: 1985 Female Med Rec #: [id number] Physician: Davie Grijalva MD Financial #: [id number] Pt. 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 Yes Yes Last [...] Patient Status Stable Skin. Condition Bruised, Intact, [place], Description same as preop Warm, and Dry [...] BLANKET MISTRAL AIR Quantity 1 Aid TORSO [[id number]][F] Fluid/Gillespie Unit Mistral warming system Setting 43c, high Body Site Upper anterior torso Last Modified By: Rena Castelan RN 05/26/20 20:15:53 Case Comments Finalized By: Juanita Stein CST Document Signatures Signed By: Rena Castelan RN 05/26/20 20:16 Juanita Stein CST 05/27/20 13:44 Normal [facility] PACU Recordon 05-27-2020 PACU Record [id number]:127 Normal [facility] PT & PTTon 05-27-2020 aPTT Coag (PPP) [Time] 24.6 second(s) Low 25.1-36.5 [facility] Comment on above: Order Comment: Order Added by Discern Expert. Result Comment: Hepa rin therapeutic range (represented by Anti-Factor Xa activity of 0.2 - 0.4 U/mL) corresponds to PTT of 56.6 - 109.0 sec. Performed By: #### 1 1158548, 5914738, 3862275, 8154465, 6246466, 2444653, 02916910, 0840095 #### [facility] [address] [place] [address] INR Coag (PPP) [Relative time] 1.1 {INR} [facility] Comment on above: Order Comment: Order Added by Discern Expert. Result Comment: INR results are specifically intended to assess patients stabilized on long-term Anticoagulation therapy suggested INR?s ?Less Intensive Anticoagulation? 2.0 ? 3.0 Conventional Range 3.0 ? 4.5 Performed By: #### 1 2812134, 5169153, 3557555, 2712352, 5241323, 7048132, 86019417, 8719068 #### [facility] [address] [place] [address] PT Coag (PPP) [Time] 12.6 second(s) Normal 10.2-12.9 [facility] Comment on above: Order Comment: Order Added by Discern Expert. Performed By: #### 1 3138076, 1442898, 7726950, 3633492, 6552173, 0034682, 35658568, 8520140 #### [facility] [address] [place] [address] aPTT Coag (PPP) [Time] 25.1 second(s) Normal 25.1-36.5 [facility] Comment on above: Result Comment: Hepa rin therapeutic range (represented by Anti-Factor Xa activity of 0.2 - 0.4 U/mL) corresponds to PTT of 56.6 - 109.0 sec. Performed By: #### 1 7479411, 7992046, 7238913, 9432917, 8455311, 4338541, 16054307, 6698291 #### [facility] [address] [place] [address] INR Coag (PPP) [Relative time] 1.2 {INR} [facility] Comment on above: Result Comment: INR results are specifically intended to assess patients stabilized on long-term Anticoagulation therapy suggested INR?s ?Less Intensive Anticoagulation? 2.0 ? 3.0 Conventional Range 3.0 ? 4.5 Performed By: #### 1 2772293, 2848521, 8870332, 0667668, 8350128, 8502190, 48589471, 6864362 #### [facility] [address] [place] [address] PT Coag (PPP) [Time] 13.5 second(s) High 10.2-12.9 [facility] Comment on above: Performed By: #### 1 1738796, 7189695, 9576894, 0651300, 9507391, 4219888, 75956302, 4305568 #### [facility] [address] [place] [address] aPTT Coag (PPP) [Time] 24.5 second(s) Low 25.1-36.5 [facility] Comment on above: Result Comment: Hepa rin therapeutic range (represented by Anti-Factor Xa activity of 0.2 - 0.4 U/mL) corresponds to PTT of 56.6 - 109.0 sec. Performed By: #### 1 8780441, 8792585, 8965487, 0812424, 6960297, 4400417, 54796003, 0280209 #### [facility] [address] [place] [address] INR Coag (PPP) [Relative time] 1.2 {INR} [facility] Comment on above: Result Comment: INR results are specifically intended to assess patients stabilized on long-term Anticoagulation therapy suggested INR?s ?Less Intensive Anticoagulation? 2.0 ? 3.0 Conventional Range 3.0 ? 4.5 Performed By: #### 1 7475246, 8851053, 8917347, 0067110, 1119501, 3397600, 26917840, 0522605 #### [facility] [address] [place] [address] PT Coag (PPP) [Time] 14.0 second(s) High 10.2-12.9 [facility] Comment on above: Performed By: #### 1 5995995, 5917602, 9447490, 4195927, 1319517, 5828134, 46291440, 0891280 #### [facility] [address] [place] [address] ABO/Rhon 05-26-2020 ABO/Rh Positive [facility] Comment on above: Performed By: #### 1 5359100, 7709041, 0793211, 3051268, 4634559, 2554640, 16250019, 8417722 #### [facility] [address] [place] [address] 76254 ABO/Rh History Checkon 05-26 ABO/Rh History Check Verified Hx Blood Type Normal [facility] Comment on above: Performed By: #### 1 8179045, 5967055, 1522899, 3397418, 0753290, 2436013, 63140373, 1226703 #### [facility] [address] [place] [address] 20914 ABSCon 05-26-2020 ABSC Gel Interp Negative Normal [facility] Comment on above: Performed By: #### 1 8008918, 1692274, 3975934, 7475417, 5979993, 5146187, 98408953, 4111703 #### [facility] [address] [place] [address] 43795 Auto Diffon 05-26-2020 Basophils/100 WBC (Bld) 0.8 % Normal 0.0-2.0 [facility] Comment on above: Order Comment: Order Added by Discern Expert. Performed By: #### 1 6812450, 7625084, 0055500, 1008487, 9692592, 6593709, 90126512, 2996329 #### [facility] [address] [place] [address] 48368 Basophils/Leukocyte s Auto (Bld) [Pure # fraction] 0.1 E9/L Normal 0.0-0.2 [facility] Comment on above: Order Comment: Order Added by Discern Expert. Performed By: #### 1 6435121, 8019235, 8249407, 9638256, 2154991, 3563204, 29573813, 0284425 #### [facility] [address] [place] [address] 60304 Eosinophils/100 WBC (Bld) 2.0 % Normal 0.0-8.0 [facility] Comment on above: Order Comment: Order Added by Discern Expert. Performed By: #### 1 5156996, 6055210, 8202553, 0610076, 5367732, 7200511, 90853551, 6616554 #### [facility] [address] [place] [address] Eosinophils/Leukocy dariel Auto (Bld) [Pure # fraction] 0.1 E9/L Normal 0.0-0.5 [facility] Comment on above: Order Comment: Order Added by Discern Expert. Performed By: #### 1 4595694, 3586851, 6418375, 9296332, 7856355, 9972670, 56768543, 6852247 #### [facility] [address] [place] [address] Lymphocytes/100 WBC (Bld) 22.2 % Normal 14.0-50.0 [facility] Comment on above: Order Comment: Order Added by Discern Expert. Performed By: #### 1 3834732, 7270521, 7951135, 8422583, 8316985, 1147316, 78645216, 3020784 #### [facility] [address] [place] [address] 05778 Lymphocytes/Leukocy dariel Auto (Bld) [Pure # fraction] 1.6 E9/L Normal 1.0-4.0 [facility] Comment on above: Order Comment: Order Added by Discern Expert. Performed By: #### 1 4383776, 2784565, 2833783, 4855848, 2245813, 0758287, 69656159, 1479290 #### [facility] [address] [place] [address] 58033 Monocytes/100 WBC (Bld) 6.7 % Normal 4.0-14.0 [facility] Comment on above: Order Comment: Order Added by Discern Expert. Performed By: #### 1 3906492, 6346945, 5785470, 1088793, 1949816, 9965365, 10234307, 1575716 #### [facility] [address] [place] [address] Monocytes/Leukocyte s Auto (Bld) [Pure # fraction] 0.5 E9/L Normal 0.2-1.0 [facility] Comment on above: Order Comment: Order Added by Discern Expert. Performed By: #### 1 7179846, 0491299, 2452072, 0626911, 1752149, 2742456, 00791329, 9511343 #### [facility] [address] [place] [address] Neutrophils/100 WBC (Bld) 68.3 % Normal 36.0-75.0 [facility] Comment on above: Order Comment: Order Added by Discern Expert. Performed By: #### 1 9980586, 6470033, 2433014, 8687047, 0435761, 8443309, 71227559, 8942195 #### [facility] Laboratory [address] [place] [address] Neutrophils/Leukocy dariel Auto (Bld) [Pure # fraction] 4.8 E9/L Normal 2.0-7.5 [facility] Comment on above: Order Comment: Order Added by Discern Expert. Performed By: #### 1 5480655, 3273000, 3892961, 6410442, 4386147, 9872741, 44735066, 9063107 #### [facility] Laboratory [address] [place] [address] B hCG Qualon 05-26-2020 Beta hCG Ql Positive Normal [facility] Comment on above: Result Comment: mary ected Performed By: #### 1 5604132, 0526108, 1219284, 6720239, 7911207, 4436024, 67110453, 0715611 #### [facility] [address] [place] [address] BMPon 05-26-2020 Creatinine [Mass/Vol] 0.7 mg/dL Normal 0.5-1.3 [facility] Comment on above: Performed By: #### 1 1398097, 8368538, 8923133, 0826015, 6886345, 7386604, 94413411, 8077668 #### [facility] [address] [place] [address] Urea nitrogen [Mass/Vol] 15 mg/dL Normal 5-21 [facility] Comment on above: Performed By: #### 1 2385564, 9085885, 5547211, 7432405, 9617280, 2377545, 44251395, 2340168 #### [facility] Laboratory [address] [place] [address] Urea nitrogen/Creatinine [Mass ratio] 21 No Units High 10-20 [facility] Comment on above: Performed By: #### 1 3481447, 9084013, 9924861, 0363921, 7489955, 4165808, 36722742, 5584835 #### [facility] Laboratory [address] [place] [address] Anion gap [Moles/Vol] 12 mmol/L Normal 6-16 [facility] Comment on above: Performed By: #### 1 3490895, 4063894, 7294743, 2358601, 0146135, 1613177, 86405238, 9802575 #### [facility] Laboratory [address] [place] [address] Calcium [Mass/Vol] 9.4 mg/dL Normal 8.9-11.1 [facility] Comment on above: Performed By: #### 1 2693633, 4518397, 6236398, 9618431, 7967719, 9295960, 37683647, 6137281 #### [facility] Laboratory [address] [place] [address] Chloride [Moles/Vol] 105 mmol/L Normal 101-111 [facility] Comment on above: Performed By: #### 1 3062768, 9563220, 9128664, 8054965, 2146757, 0679109, 49973629, 4994719 #### [facility] Laboratory [address] [place] [address] CO2 [Moles/Vol] 26 mmol/L Normal 21-31 [facility] Comment on above: Performed By: #### 1 1467048, 5829463, 7670893, 5332031, 6834840, 7602307, 26701399, 2515482 #### [facility] Laboratory [address] [place] [address] Glucose [Mass/Vol] 101 mg/dL Normal 55-199 [facility] Comment on above: Result Comment: If t his glucose result represents a fasting glucose, interpretation should refer to the following reference range: 55-99 mg/dL Performed By: #### 1 0982318, 4173971, 0454648, 9763444, 3076802, 4659739, 85697648, 8482574 #### [facility] Laboratory [address] [place] [address] Potassium [Moles/Vol] 3.9 mmol/L Normal 3.5-5.3 [facility] Comment on above: Performed By: #### 1 2897673, 2819875, 2914610, 7652186, 2146920, 7067255, 87048955, 2053767 #### [facility] Laboratory [address] [place] [address] Sodium [Moles/Vol] 139 mmol/L Normal 135-145 [facility] Comment on above: Performed By: #### 1 4221404, 7875774, 1831794, 7979362, 9506992, 6257514, 86569495, 5099121 #### [facility] [address] [place] [address] [facility] HCG.beta subunit Qn 18 m[IU]/mL High 1-3 [facility] Comment on above: Result Comment: GEST ATIONAL AGE HCG RANGE (mIU/mL) NON- <1-3 0.2-1 WEEKS 5-50 1-2 WEEKS 50-500 2-3 WEEKS 100-5,000 3-4 WEEKS 500-10,000 4-5 WEEKS 1,000-50,000 5-6 WEEKS 10,000-100,000 6-8 WEEKS 15,000-200,000 8-12 WEEKS 10,000-100,000 Performed By: #### 1 3963393, 5374193, 1633746, 8006807, 4223457, 3894496, 11141671, 2740104 #### [facility] Laboratory [address] [place] [address] Blood Bank ID#on 05-26-2020 BBID# [id number] [facility] Comment on above: Performed By: #### 1 7168097, 9414234, 2259329, 6626929, 8480859, 9928219, 11545903, 3261878 #### [facility] Laboratory [address] [place] [address] CBC w/ Auto Diffon 0 Erythrocyte distribution width (RBC) [Ratio] 12.4 % Normal 10.9-14.2 [facility] Comment on above: Performed By: #### 1 6114851, 3969314, 6339360, 1553491, 3991015, 7692290, 74902852, 9063983 #### [facility] Laboratory [address] [place] [address] Hematocrit (Bld) [Volume fraction] 36.6 % Normal 34.0-46.0 [facility] Comment on above: Performed By: #### 1 1224698, 1269624, 8037644, 8474142, 1985722, 9280773, 54576480, 9807006 #### [facility] Laboratory [address] [place] [address] Hemoglobin (Bld) [Mass/Vol] 12.2 g/dL Normal 12.0-16.0 [facility] Comment on above: Performed By: #### 1 7754727, 3694037, 8686789, 2251326, 6429912, 3105362, 58158574, 8698986 #### [facility] Laboratory [address] [place] [address] MCH (RBC) [Entitic mass] 29.8 pg Normal 27.0-34.0 [facility] Comment on above: Performed By: #### 1 6036598, 4202238, 0705697, 8519511, 5167589, 9488265, 93457450, 3157955 #### [facility] Laboratory [address] [place] [address] MCHC (RBC) [Mass/Vol] 33.3 g/dL Normal 31.4-36.0 [facility] Comment on above: Performed By: #### 1 0423787, 3717831, 5018376, 2375953, 0100519, 6211880, 72321612, 7199367 #### [facility] Laboratory [address] [place] [address] MCV (RBC) [Entitic vol] 89.5 fL Normal 80.0-100.0 [facility] Comment on above: Performed By: #### 1 9877127, 6395758, 6413123, 9507086, 0792423, 9043922, 28145254, 3340627 #### [facility] Laboratory [address] [place] [address] Platelet mean volume (Bld) [Entitic vol] 7.4 fL Normal 6.4-10.8 [facility] Comment on above: Performed By: #### 1 3705837, 3719167, 3090911, 1130041, 3386267, 4708544, 50687975, 4236928 #### [facility] Laboratory [address] [place], [place] [address] Platelets (Bld) [#/Vol] 278.0 E9/L Normal 150.0-500.0 [facility] Comment on above: Performed By: #### 1 0857763, 9078480, 3226966, 7818766, 3492350, 3551646, 25388109, 5465629 #### [facility] Laboratory [address] [place], [place] [address] RBC (Bld) [#/Vol] 4.1 E12/L Low 4.3-5.9 [facility] Comment on above: Performed By: #### 1 7924869, 2888775, 0398911, 8804851, 2333202, 1585958, 52144916, 7336436 #### [facility] Laboratory [address] [place] [address] WBC corrected for nucl RBC Auto (Bld) [#/Vol] 7.0 E9/L Normal 4.0-11.0 [facility] Comment on above: Performed By: #### 1 2462903, 0350158, 3741764, 1462139, 9696587, 9825579, 36903647, 1100207 #### [facility] Laboratory [address] [place], [place] [address] Consent for Blood Transfusio non 05-26-2020 Consent for Blood Transfusion [id number]#1.00CD:127 Normal [facility] Consent for Treatmenton Consent for Treatment [id number]#1.00CD:127 Normal [facility] ED Clinical Summaryon 2019 ED Clinical Summary (Inserted Image. Sachi ble to display) [address] [address] ED Clinical Summary Person Information Name: SUKHDEV SCHWARTZ Stacey/[facility] Age: 34 Years : 1985 Sex: Female Language: Filipino PCP: LOLI MATIAS MD Marital Status: Phone: [phone] MRN: Visit Id: Visit Reason: Nausea; Dizziness; [...] 05/26/2020 12:32:48 ADDRESS: [address] [facility] [id number] [facility] DOC NOTES: MEDICAL INFORMATION: Prescriptions Given: Medications [...] Follow up: With: Address: When: Davie Grijalva [facility] [address], [facility], [address], [place] [id number] [facility] (1) 05/27/2020 8:45 AM Comments: Return to ED if symptoms worsen. Drink lots of fluids. Return if you have worsening bleeding, pass out, chest pain, shortnes of breath or any other problems. DIAGNOSIS: 1:Menorrhagia Normal [facility] ED Note-Physicianon 05-26-20 ED Note-Physician Basic Information [...] % (05/26/20:25:00) Lymph Auto: 22.2 % (05/26/20::) Independence Auto: 6.7 % (05/26/20:25:00) Eos Auto: 2 % (05/26/20::) Basophil Auto: 0.8 % (05/26/20::) Neutro Absolute: 4.8 E9/L (05/26/20:25:00) Lymph Absolute: 1.6 E9/L (05/26/20:25:) Independence Absolute: 0.5 E9/L (05/26/20::) Eos Absolute: 0.1 [...] Ultrasound Performed Signed By: Faraz Carter DO [facility] Comment on above: Result Comment: Elec [...] hospitalization. HOME CARE INSTRUCTIONS ? Only take tmyk-xan-ayuebil or prescription medicines as directed by your [...] Document Reviewed: 03/25/2014 ExitCare? Patient Information ?2015 [employer] This information is not intended to replace advice given to you by your health care provider. Make sure you discuss any questions you have with your health care provider. Normal [facility] ED Patient Summaryon 020 ED Patient Summary (Inserted Image. Sachi ble to display) [place] [id number] Patient Discharge Instructions Person Information Name: SUKHDEV SCHWARTZ Age: 34 Years Arrival Date: 05/26/2020 11:09:13 Discharge Diagnosis: 1:Menorrhagia Primary Care Physician: LOLI MATIAS MD Provider Information Primary Provider: Carline Cain DO Advanced Biostatistics Manager:None The exam and treatment you received in the Emergency Department were for an urgent problem and are not intended as complete care. It is important that you follow up with a doctor, nurse practitioner, or physician?s vet assistant for ongoing care. If your symptoms [...] Follow-up Instructions: With: Address: When: Davie ISSA, [facility], [address] [place] [id number] [facility] (1) 05/27/2020 8:45 AM Comments: [...] opioids can be used to help relieve ymvipyag-zx-ttthkx pain and are often prescribed following a [...] be struggling with addiction, tell your health manager progressive care and ask for guidance or call [facility]?S National Helpline at 6-234-120-VCIC. v Source: [place] Department of Health and Human Services/Center for Disease Control & Prevention [facility] Medications Given: Medication Dose Route [...] Comment: Pharmacy Information: Thank you for choosing [facility] Patient Education Materials: Menorrhagia Menorrhagia [...] hospitalization. HOME CARE INSTRUCTIONS ? Only take judv-dmg-upjbahd or prescription medicines as directed by your [...] Document Reviewed: 03/25/2014 ExitCare? Patient Information ?2015 [employer] This information is not intended to replace advice given to you by your health care provider. Make sure you discuss any questions you have with your health care provider. JAMES Bain BRITTANY F , have received the following patient education materials/instructions and have verbalized understanding: Patient Education Materials: Menorrhagia Follow-up Instructions: With: Address: When: Davie Grijalva [address] [place] [address], [place] [address], [place] [address] [facility] (1) 05/27/2020 8:45 AM Comments: Return to ED if symptoms worsen. Drink lots of fluids. Return if you have worsening bleeding, pass out, chest pain, shortnes of breath or any other problems. Patient Signature __ Date Clinician/Nurse Signature Date 05/26/2020 12:32:58 Normal [facility] FFPon 05-26-2020 # of Units 2 [facility] Comment on above: Result Comment: 2019 17:56 [id number] Blood product ready and called to Jaki/OB at 05/26/2020 17:56:49 EDT by AL. Performed By: #### 1 3756657, 2180660, 9695254, 7315337, 0937111, 1072846, 69081626, 2889717 #### [facility] Laboratory [address] [place] [address] Date Required [id number] [facility] Comment on above: Performed By: #### 1 6282539, 7466374, 4791934, 3838912, 4989402, 0426195, 02405849, 7227407 #### [facility] Laboratory [address] [place] [address] Order to Transfuse YES [facility] Comment on above: Performed By: #### 1 2110376, 4017993, 3670659, 6953860, 3131918, 4845355, 66257512, 2947812 #### [facility] Laboratory [address] [place] [address] Hematocriton 05-26-2020 Hematocrit (Bld) [Volume fraction] 27.0 % Low 34.0-46.0 [facility] Comment on above: Performed By: #### 1 8844416, 5133365, 0809407, 0070840, 8979055, 1536167, 76921731, 9041770 #### [facility] Laboratory [address] [place] [address] Hemoglobinon 05-26-2020 Hemoglobin (Bld) [Mass/Vol] 9.0 g/dL Low 12.0-16.0 [facility] Comment on above: Performed By: #### 1 6038549, 1690606, 2764573, 9236209, 1195308, 4314826, 12452021, 2559917 #### [facility] Laboratory [address] [place] [address] Hep Func Panelon 05-26-2020 Albumin [Mass/Vol] 1.4 g/dL Normal 1.1-2.2 [facility] Comment on above: Performed By: #### 1 3308072, 2609276, 9273565, 0510037, 5768546, 5013826, 73087545, 7027980 #### [facility] Laboratory [address] [place] [address] Albumin [Mass/Vol] 4.1 g/dL Normal 3.3-5.0 [facility] Comment on above: Performed By: #### 1 2250442, 6542376, 8094641, 1254093, 9311359, 6954577, 63298569, 6860260 #### [facility] Laboratory [address] [place] [address] ALP [Catalytic activity/Vol] 47 Int._Unit/L Normal 21-98 [facility] Comment on above: Performed By: #### 1 6968916, 7070978, 1285099, 0612571, 6830462, 0051959, 21467864, 0562125 #### [facility] Laboratory [address] [place] [address] ALT No additional P-5'-P [Catalytic activity/Vol] 10 Int._Unit/L Normal 6-46 [facility] Comment on above: Performed By: #### 1 6909088, 0281317, 0014129, 3334385, 0713340, 4470852, 05286308, 0262879 #### [facility] Laboratory [address] [place] [address] AST [Catalytic activity/Vol] 12 Int._Unit/L Normal 5-43 [facility] Comment on above: Performed By: #### 1 2729119, 2772014, 7329023, 4149690, 1201701, 3393866, 80111433, 8776547 #### [facility] Laboratory [address] [place] [address] Bilirubin [Mass/Vol] 0.8 mg/dL Normal 0.0-1.1 [facility] Comment on above: Performed By: #### 1 3945889, 6056411, 7904089, 2083227, 4259920, 1269673, 56658069, 7645457 #### [facility] Laboratory [address] [place] [address] Bilirubin.direct [Mass/Vol] 0.7 mg/dL Normal 0.1-0.9 [facility] Comment on above: Performed By: #### 1 4838802, 6442381, 1614222, 4807233, 4459688, 7001716, 55213167, 1778700 #### [facility] Laboratory [address] [place] [address] Bilirubin.direct [Mass/Vol] 0.1 mg/dL Normal 0.1-0.4 [facility] Comment on above: Performed By: #### 1 2189258, 8601052, 7823651, 0922806, 7614365, 7173311, 12473997, 1386245 #### [facility] Laboratory [address] [place] [address] Globulin (S) [Mass/Vol] 2.9 g/dL Normal 1.4-4.0 [facility] Comment on above: Performed By: #### 1 2510915, 9921150, 3098187, 6117727, 7146813, 7598873, 24784928, 6980572 #### [facility] Laboratory [address] [place] [address] Protein [Mass/Vol] 7.0 g/dL Normal 6.0-7.8 [facility] Comment on above: Performed By: #### 1 3987061, 5084116, 0228926, 1821665, 4121250, 3726704, 37228071, 9869240 #### [facility] Laboratory [address] [place] [address] Main OR PACU I Recordon Main OR PACU I Record PACU Phase I Document Type FT Summary Primary Physician: Davie Grijalva MD Finalized Date/Time: 05/26/20 20:48:43 Pt. Name: SUKHDEV SCHWARTZ/Sex: 1985 Female Med Rec #: [id number] Physician: Davie Grijalva MD Financial #: [id number] Pt. Type: O Room/Bed: N410/01 Admit/Disch: 05/26/20 [...] By: Lauren Reed RN 05/26/20 20:48 Normal [facility] Main OR Preoperative Recordo n 05-26-2020 Main OR Preoperative Record Holding Area Document Type FT Summary Primary Physician: Davie Grijalva MD Finalized Date/Time: 05/26/20 20:04:05 Pt. Name: SUKHDEV SCHWARTZ /Sex: 1985 Female Med Rec #: [id number] Physician: Davie Girjalva MD Financial #: [id number] Pt. Type: O Room/Bed: [facility]/ Admit/Disch: 05/26/20 11:09:13 - Institution: Case Times [...] By: Rena Castelan RN 05/26/20 20:04 Normal [facility] Monitor Recordon 05-26-2020 Monitor Record [id number]#[id number]:127 Normal [facility] Monitor Record [id number]#[id number]:127 Normal [facility] Monitor Record [id number]#[id number]:127 Normal [facility] Monitor Record [id number]#1.00CD:127 Normal [facility] Monitor Record [id number]#1.00CD:127 Normal [facility] Monitor Record [id number]#[id number]:127 Normal [facility] PT & PTTon 05-26-2020 aPTT Coag (PPP) [Time] 30.1 second(s) Normal 25.1-36.5 [facility] Comment on above: Result Comment: Hepa rin therapeutic range (represented by Anti-Factor Xa activity of 0.2 - 0.4 U/mL) corresponds to PTT of 56.6 - 109.0 sec. Performed By: #### 1 4657029, 9565810, 4645132, 1720038, 1753155, 7388850, 07668103, 0833708 #### [facility] Laboratory [address] [place] [address] INR Coag (PPP) [Relative time] 1.1 {INR} [facility] Comment on above: Result Comment: INR results are specifically intended to assess patients stabilized on long-term Anticoagulation therapy suggested INR?s ?Less Intensive Anticoagulation? 2.0 ? 3.0 Conventional Range 3.0 ? 4.5 Performed By: #### 1 5862051, 4420043, 6454510, 2333536, 5880615, 0218629, 74811929, 8483950 #### [facility] Laboratory [address] [place] [address] PT Coag (PPP) [Time] 12.5 second(s) Normal 10.2-12.9 [facility] Comment on above: Performed By: #### 1 8830753, 8039878, 5820348, 2963768, 8076225, 0407345, 98742032, 2332432 #### [facility] Laboratory [address] [place] [address] Progesteroneon 05-26-2020 Progesterone [Mass/Vol] 0.90 ng/mL [facility] Comment on above: Result Comment: REFE RENCE RANGE Males 0.14-2.06 ng/mL Non- Females Follicular 0.10-0.60 ng/mL Luteal 3.00-17.5 ng/mL Midluteal 3.30-18.6 ng/mL Post-Menopausal 0.10-0.40 ng/mL First Trimester 8.30-66.5 ng/mL Second Trimester 18.9-66.1 ng/mL Third Trimester 35.8-312.4 ng/mL Performed By: #### 1 3543398, 2300272, 9381809, 4859751, 6333063, 8229221, 14566223, 7536426 #### [facility] Laboratory [address] [place] [address] Progress Note-Nurseon 2019 Progress Note-Nurse Blood obtained per Rhoda Grijalva order and patient taken to surgery. Blood given to Lauren in surgery. Normal [facility] Progress Note-Nurse Dr. Grijalva in at [facility] with pelvic tray and patient and patient begin to bleed heavily and pt heart rate decreased to 50's and patient BP registered in the 60's. pt pale and clammy. Pt in Trendelenburg and fluids open wide. Patient blood pressure up to 100's and HR in the 70's and Dr. Grijalva at [facility] Normal [facility] Progress Note-Nurse Ultrasound at [facility] de to perform beside US Normal [facility] Progress Note-Nurse Patient coloring imp roved at this time and patient VS improved. Dr. Cain aware and awaiting US Normal [facility] Progress Note-Nurse This nurse and Elsie madsen [...] started per Altagracia Godinez. Dr. Cain at [facility]. Patient verbalized she is starting to feel better at this time Normal [facility] Progress Note-Physicianon Progress Note-Physician Patient: SUKHDEV SCHWARTZ [...] q6hr, # 15 tab(s), Refills(s) 0, Pharmacy: [facility] #16 Documented Medications Documented Multivitamins: 1 tab(s), [...] list: All Problems Pancreatitis / SNOMED CT 678472746 / Confirmed Incomplete miscarriage / SNOMED CT 990994159 / Confirmed missed Ovarian dysfunction / SNOMED CT 84808788 / Confirmed Hypothyroidism / SNOMED CT 36611734 / Confirmed, Active Problems (4) Hypothyroidism Incomplete miscarriage Ovarian dysfunction Pancreatitis Histories Past Medical History: No active or resolved past medical history items have been selected or recorded. Family History: Diabetes mellitus type 2 Mother Thyroid cancer Mother Sister Procedure history: Dilation and curettage ([id number]) on 10/20/2019 at 33 Years. Comments: 10/20/2019 19:10 Kat Rosenbaum RN DILATION & SUCTION CURETTAGE Cholecystectomy ([id number]) on 07/19/2019 at 33 Years. DIAGNOSTIC LAPAROSCOPY [...] 26) Cr 0.7 (MAY 26) . Plan [employer] [employer] (ASA) physical status classification: Class III, E. Anesthetic Preoperative Plan Anesthesia: General. . Anesthetic plan, risks, benefits, and alternatives discussed with the patient and/or family. Pt. and/or family present and agree to proceed as planned.. Discussed the importance of abstaining from tobacco products, and offered counseling if desired. Normal [facility] Comment on above: Result Comment: Elec tronically Signed By: Jerel Martin JR, DO\.yvonne\Date and Time Signed: 05/26/20 17:16 EDT [facility] 05-26-2020 # of Units 4 [facility] Comment on above: Result Comment: 2019 18:39 [id number] Blood product ready and called to Jaki/OB at 05/26/2020 18:39:16 EDT by AL. Performed By: #### 1 1725460, 5598705, 3034335, 1182925, 4491171, 4825323, 30941138, 1803799 #### [facility] Laboratory [address] [place] [address] Date Required 05-26-2020 [facility] Comment on above: Performed By: #### 1 9560440, 6102802, 5564785, 9556526, 6539159, 4670509, 99175376, 2654567 #### [facility] Laboratory [address] [place] [address] Product Type None Required [facility] Comment on above: Performed By: #### 1 [id number], 3659434, 7206227, 0755766, 1683980, 9039906, 40724080, 5903778 #### [facility] [address] [place] [address] # of Units 1 [facility] Comment on above: Result Comment: 2019 16:29 [id number] Blood product ready and called to Lauren at 05/26/2020 16:29:10 EDT by ALElayne Performed By: #### 1 [id number], 4172537, 0539906, 6979007, 0221341, 6851299, 45882870, 9803677 #### [facility] [address] [place] [address] # of Units 2 [facility] Comment on above: Performed By: #### 1 6496890, 1694566, 3738754, 9795740, 0605939, 9382338, 19746787, 5333703 #### [facility] [address] [place], [place] [id number] Date Required 05/26/2020 [facility] Comment on above: Performed By: #### 1 8706712, 3009915, 9580433, 7963850, 9250672, 7739184, 13831242, 0411310 #### [facility] [address] [place], [place] [address] Date Required [facility] Comment on above: Performed By: #### 1 6994181, 6143554, 9230816, 1278345, 4242618, 0295817, 97410880, 6707840 #### [facility] [address] [place] [address] Product Type None Required [facility] Comment on above: Performed By: #### 1 3271735, 5214142, 1471604, 2472735, 8908155, 5917555, 21204268, 2785625 #### [facility] [address] [place] [address] # of Units 1 [facility] Comment on above: Result Comment: 2019 15:50 [id number] Blood product ready and called to Topher/ER at 05/26/2020 15:49:51 EDT by AL. Performed By: #### 1 1069332, 7540668, 7845974, 9593824, 6613630, 9876434, 77979742, 0397712 #### [facility] [address] [place] [address] Date Required 05/26/2020 [facility] Comment on above: Performed By: #### 1 7026795, 4170973, 0281520, 8387422, 1381333, 1735218, 69682690, 1888089 #### [facility] [address] [place] [address] Product Type None Required [facility] Comment on above: Performed By: #### 1 0606386, 6339039, 6129008, 9006156, 1835759, 1915070, 38879822, 7774598 #### [facility] [address] [place] [address] US 1st Trimesteron 05-26-2020 US 1st Trimester [...] ? SAB 2 Transabdominal Ultrasound Performed Normal [facility] eGFRon 05-26-2020 GFR/1.73 sq M predicted among blacks MDRD (S/P/Bld) [Vol rate/Area] mL/min/{1.73_m2} Normal >=59 [facility] Comment on above: Order Comment: Order added by Discern Expert. Result Comment: eGFR is race adjusted. AA=. Performed By: #### 1 8296978, 1692008, 2818335, 0738626, 7590168, 2076065, 29946466, 3923032 #### [facility] [address] [place] [address] GFR/1.73 sq M predicted among non-blacks MDRD (S/P/Bld) [Vol rate/Area] mL/min/{1.73_m2} Normal >=59 [facility] Comment on above: Order Comment: Order added by Discern Expert. Result Comment: Pattern Drum Maker ivan kidney disease could be indicated at eGFR's of less than 60 mL/min/1.73m2. Kidney failure is indicated at less than 15 mL/min/1.73m2. Performed By: #### 1 9333404, 6693395, 7358985, 4547983, 2487706, 3236445, 42333611, 6251773 #### [facility] [address] [place] [address] Coding Summary.on 01-23-2020 Coding Summary. CODING DATE: 020 FINAL [facility] STATUS: Home (Routine DC) PAYOR: Leela [...] Milton Date Saved: 01/23/2020 12:44 pm Normal [facility] Estradiolon 01-23-2020 E2 [Mass/Vol] 1822.0 pg/mL [facility] Comment on above: Result Comment: Adul t Female: Follicular phase 12.5 - 166.0 Ovulation phase 85.8 - 498.0 Luteal phase 43.8 - 211.0 Postmenopausal <6.0 - 54.7 1st trimester 215.0 - >4300.0 Girls (1-10 years) 6.0 - 27.0 Mal ECLIA methodology Performed at: [facility] [id number] PhD Subhash Coronel Performed By: #### 1 6746531, 4427124, 5428078, 5227723, 5957223, 4053510, 87208826, 3461619 #### [facility] [address] [place] [address] BhCG Quanton 01-22-2020 [place] [address] m[IU]/mL High 1-3 [facility] Comment on above: Result Comment: GEST ATIONAL AGE HCG RANGE (mIU/mL) NON- <1-3 0.2-1 WEEKS 5-50 1-2 WEEKS 50-500 2-3 WEEKS 100-5,000 3-4 WEEKS 500-10,000 4-5 WEEKS 1,000-50,000 5-6 WEEKS 10,000-100,000 6-8 WEEKS 15,000-200,000 8-12 WEEKS 10,000-100,000 Performed By: #### 1 8849253, 8593554, 9808776, 8279967, 0544102, 0485000, 49840944, 7466492 #### [facility] [address] [place] [address] Progesteroneon 01-22-2020 Progesterone [Mass/Vol] 21.50 ng/mL [facility] Comment on above: Result Comment: REFE RENCE RANGE Males 0.14-2.06 ng/mL Non- Females Follicular 0.10-0.60 ng/mL Luteal 3.00-17.5 ng/mL Midluteal 3.30-18.6 ng/mL Post-Menopausal 0.10-0.40 ng/mL First Trimester 8.30-66.5 ng/mL Second Trimester 18.9-66.1 ng/mL Third Trimester 35.8-312.4 ng/mL Performed By: #### 1 4299197, 8443369, 3025525, 4007339, 7592555, 0381136, 46203219, 3441104 #### [facility] [address] [place] [address] Coding Summary.on 01-16-2020 Coding Summary. CODING DATE: 020 FINAL [facility] STATUS: Home (Routine DC) PAYOR: Leela [...] CphT Date Saved: 01/16/2020 07:40 am Normal [facility] Estradiolon 01-16-2020 E2 [Mass/Vol] 1275.0 pg/mL [facility] Comment on above: Result Comment: Adul t Female: Follicular phase 12.5 - 166.0 Ovulation phase 85.8 - 498.0 Luteal phase 43.8 - 211.0 Postmenopausal <6.0 - 54.7 1st trimester 215.0 - >4300.0 Girls (1-10 years) 6.0 - 27.0 Mal ECLIA methodology Performed at: [facility] [address] [id number] PhD Subhash Coronel Performed By: #### 1 0878772, 3891527, 8120806, 8150602, 7638186, 5812854, 38275218, 9872404 #### [facility] [address] [place] [address] BhCG Quanton 01-15-2020 HCG.beta subunit Qn 4061 m[IU]/mL High 1-3 Fi [facility] Comment on above: Result Comment: GEST ATIONAL AGE HCG RANGE (mIU/mL) NON- <1-3 0.2-1 WEEKS 5-50 1-2 WEEKS 50-500 2-3 WEEKS 100-5,000 3-4 WEEKS 500-10,000 4-5 WEEKS 1,000-50,000 5-6 WEEKS 10,000-100,000 6-8 WEEKS 15,000-200,000 8-12 WEEKS 10,000-100,000 Performed By: #### 1 7638864, 3346323, 7227534, 9187576, 2821598, 6376759, 55458249, 6656743 #### [facility] [address] [place] [address] Progesteroneon 01-15-2020 Progesterone [Mass/Vol] 32.10 ng/mL [facility] Comment on above: Result Comment: REFE RENCE RANGE Males 0.14-2.06 ng/mL Non- Females Follicular 0.10-0.60 ng/mL Luteal 3.00-17.5 ng/mL Midluteal 3.30-18.6 ng/mL Post-Menopausal 0.10-0.40 ng/mL First Trimester 8.30-66.5 ng/mL Second Trimester 18.9-66.1 ng/mL Third Trimester 35.8-312.4 ng/mL Performed By: #### 1 6341861, 2639270, 1174431, 8717203, 8290581, 3987418, 83672938, 5438181 #### [facility] [address] [place] [address] Coding Summary.on 01-09-2020 Coding Summary. CODING DATE: 020 FINAL [facility] STATUS: Home (Routine DC) PAYOR: Leela [...] CphT Date Saved: 01/09/2020 07:10 am Normal [facility] Estradiolon 01-09-2020 E2 [Mass/Vol] 572.2 pg/mL [place] Comment on above: Result Comment: Adul t Female: Follicular phase 12.5 - 166.0 Ovulation phase 85.8 - 498.0 Luteal phase 43.8 - 211.0 Postmenopausal <6.0 - 54.7 1st trimester 215.0 - >4300.0 Girls (1-10 years) 6.0 - 27.0 Mal ECLIA methodology Performed at: [facility] [address] [id number] PhD Subhash Coronel Performed By: #### 1 [id number], 0574579, 4511305, 0277776, 2653417, 3615082, 22167362, 2878218 #### [facility] [address] [place] [address] [facility]-2020 HCG.beta subunit Qn 898 m[IU]/mL High 1-3 Fis [facility] Comment on above: Result Comment: GEST ATIONAL AGE HCG RANGE (mIU/mL) NON- <1-3 0.2-1 WEEKS 5-50 1-2 WEEKS 50-500 2-3 WEEKS 100-5,000 3-4 WEEKS 500-10,000 4-5 WEEKS 1,000-50,000 5-6 WEEKS 10,000-100,000 6-8 WEEKS 15,000-200,000 8-12 WEEKS 10,000-100,000 Performed By: #### 1 2220147, 2981429, 7517332, 1729683, 7812944, 6691138, 22824992, 5639656 #### [facility] [address] [place] [address] Progesteroneon 01-08-2020 Progesterone [Mass/Vol] 27.90 ng/mL [facility] Comment on above: Result Comment: REFE RENCE RANGE Males 0.14-2.06 ng/mL Non- Females Follicular 0.10-0.60 ng/mL Luteal 3.00-17.5 ng/mL Midluteal 3.30-18.6 ng/mL Post-Menopausal 0.10-0.40 ng/mL First Trimester 8.30-66.5 ng/mL Second Trimester 18.9-66.1 ng/mL Third Trimester 35.8-312.4 ng/mL Performed By: #### 1 8129314, 0863819, 7902092, 6145888, 6276406, 4993210, 67544972, 1123709 #### [facility] [address] [place] [address] Coding Summary.on 01-02-2020 Coding Summary. CODING DATE: 020 FINAL [facility] STATUS: Home (Routine DC) PAYOR: [place] ADMIT DX: REASON FOR VISIT DX: Z32.01 [...] CphT Date Saved: 01/02/2020 10:23 am Normal [facility] Estradiolon 01-02-2020 E2 [Mass/Vol] 1694.0 pg/mL [facility] Comment on above: Result Comment: Adul t Female: Follicular phase 12.5 - 166.0 Ovulation phase 85.8 - 498.0 Luteal phase 43.8 - 211.0 Postmenopausal <6.0 - 54.7 1st trimester 215.0 - >4300.0 Girls (1-10 years) 6.0 - 27.0 Mal ECLIA methodology Performed at: [facility] [id number] PhD Subhash Coronel Performed By: #### 1 7766588, 2738134, 1773464, 1202695, 5853121, 9790808, 06254095, 5904766 #### [facility] [address] [place] [address] [facility] Quanton 01-01-2020 HCG.beta subunit Qn 124 m[IU]/mL High 1-3 Fis [facility] Comment on above: Result Comment: GEST ATIONAL AGE HCG RANGE (mIU/mL) NON- <1-3 0.2-1 WEEKS 5-50 1-2 WEEKS 50-500 2-3 WEEKS 100-5,000 3-4 WEEKS 500-10,000 4-5 WEEKS 1,000-50,000 5-6 WEEKS 10,000-100,000 6-8 WEEKS 15,000-200,000 8-12 WEEKS 10,000-100,000 Performed By: #### 1 0619781, 7156935, 2078749, 6458678, 8817106, 2555812, 73217366, 3303887 #### [facility] [address] [place] [address] Coding Summary.on 01-01-2020 Coding Summary. CODING DATE: 020 FINAL [facility] STATUS: Home (Routine DC) PAYOR: [place] ADMIT DX: REASON FOR VISIT DX: E28.9 [...] CphT Date Saved: 01/01/2020 02:22 pm Normal [facility] Progesteroneon 01-01-2020 Progesterone [Mass/Vol] 23.10 ng/mL [facility] Comment on above: Result Comment: REFE RENCE RANGE Males 0.14-2.06 ng/mL Non- Females Follicular 0.10-0.60 ng/mL Luteal 3.00-17.5 ng/mL Midluteal 3.30-18.6 ng/mL Post-Menopausal 0.10-0.40 ng/mL First Trimester 8.30-66.5 ng/mL Second Trimester 18.9-66.1 ng/mL Third Trimester 35.8-312.4 ng/mL Performed By: #### 1 [id number], 0839374, 8981140, 0005931, 7838359, 2447624, 75439007, 7847068 #### [facility] [address] [place] [address] Coding Summary.on 12-31-2019 Coding Summary. CODING DATE: 020 [facility] STATUS: Home (Routine DC) PAYOR: [place] ADMIT DX: REASON FOR VISIT DX: E28.9 [...] [place] Date Saved: 12/31/2019 08:09 am Normal [facility] Estradiolon 12-30-2019 E2 [Mass/Vol] 1478.0 pg/mL [facility] Comment on above: Result Comment: Adul t Female: Follicular phase 12.5 - 166.0 Ovulation phase 85.8 - 498.0 Luteal phase 43.8 - 211.0 Postmenopausal <6.0 - 54.7 1st trimester 215.0 - >4300.0 Girls (1-10 years) 6.0 - 27.0 Mal ECLIA methodology Performed at: [facility] [address] [id number] PhD Subhash Coronel Performed By: #### 1 2755064, 7573188, 6390827, 7889019, 6382603, 9623382, 44255191, 8461948 #### Dat [facility] [address] [place] [address] BhCG Quanton 12-29-2019 HCG.beta subunit Qn 34 m[IU]/mL High 1-3 [facility] Comment on above: Result Comment: GEST ATIONAL AGE HCG RANGE (mIU/mL) NON- <1-3 0.2-1 WEEKS 5-50 1-2 WEEKS 50-500 2-3 WEEKS 100-5,000 3-4 WEEKS 500-10,000 4-5 WEEKS 1,000-50,000 5-6 WEEKS 10,000-100,000 6-8 WEEKS 15,000-200,000 8-12 WEEKS 10,000-100,000 Performed By: #### 1 7419446, 3568829, 6910521, 4878967, 6602431, 2633244, 56145214, 4385428 #### [facility] [address] [place] [address] Progesteroneon 12-29-2019 Progesterone [Mass/Vol] 21.80 ng/mL [facility] Comment on above: Result Comment: REFE RENCE RANGE Males 0.14-2.06 ng/mL Non- Females Follicular 0.10-0.60 ng/mL Luteal 3.00-17.5 ng/mL Midluteal 3.30-18.6 ng/mL Post-Menopausal 0.10-0.40 ng/mL First Trimester 8.30-66.5 ng/mL Second Trimester 18.9-66.1 ng/mL Third Trimester 35.8-312.4 ng/mL Performed By: #### 1 2819151, 4245895, 5664250, 6581592, 3063411, 4212065, 84303634, 6369330 #### [facility] [address] [place] [address] BhCG Quanton 12-27-2019 HCG.beta subunit Qn 19 m[IU]/mL High 1-3 Fish er [facility] Comment on above: Result Comment: GEST ATIONAL AGE HCG RANGE (mIU/mL) NON- <1-3 0.2-1 WEEKS 5-50 1-2 WEEKS 50-500 2-3 WEEKS 100-5,000 3-4 WEEKS 500-10,000 4-5 WEEKS 1,000-50,000 5-6 WEEKS 10,000-100,000 6-8 WEEKS 15,000-200,000 8-12 WEEKS 10,000-100,000 Performed By: #### 1 7068784, 4520351, 4730620, 9021720, 2586700, 5938514, 13691358, 4619197 #### [facility] [address] [place] [address] Progesteroneon 12-27-2019 Progesterone [Mass/Vol] 22.60 ng/mL [facility] Comment on above: Result Comment: REFE RENCE RANGE Males 0.14-2.06 ng/mL Non- Females Follicular 0.10-0.60 ng/mL Luteal 3.00-17.5 ng/mL Midluteal 3.30-18.6 ng/mL Post-Menopausal 0.10-0.40 ng/mL First Trimester 8.30-66.5 ng/mL Second Trimester 18.9-66.1 ng/mL Third Trimester 35.8-312.4 ng/mL Performed By: #### 1 9954166, 4675357, 0915632, 9653330, 3036501, 0389810, 76442883, 7785941 #### [facility] [address] [place] [address] Coding Summary.on 12-25-2019 Coding Summary. CODING DATE: 020 FINAL [facility] STATUS: Home (Routine DC) PAYOR: Leela [...] CphT Date Saved: 12/22/2019 04:17 pm Normal [facility] Coding Summary. CODING DATE: 020 [facility] STATUS: PAYOR: Leela ADMIT DX: REASON FOR [...] CphT Date Saved: 12/22/2019 04:17 pm Normal [facility] Estradiolon 12-23-2019 E2 [Mass/Vol] 1555.0 pg/mL [facility] Comment on above: Result Comment: Adul t Female: Follicular phase 12.5 - 166.0 Ovulation phase 85.8 - 498.0 Luteal phase 43.8 - 211.0 Postmenopausal <6.0 - 54.7 1st trimester 215.0 - >4300.0 Girls (1-10 years) 6.0 - 27.0 Mal ECLIA methodology Performed at: [facility] [id number] PhD Subhash Cornoel Performed By: #### 1 2989660, 8340873, 3040358, 4878435, 8301096, 4073426, 85508254, 5628491 #### [facility] [address] [place] [address] Progesteroneon 12-22-2019 Progesterone [Mass/Vol] 25.40 ng/mL [facility] Comment on above: Result Comment: REFE RENCE RANGE Males 0.14-2.06 ng/mL Non- Females Follicular 0.10-0.60 ng/mL Luteal 3.00-17.5 ng/mL Midluteal 3.30-18.6 ng/mL Post-Menopausal 0.10-0.40 ng/mL First Trimester 8.30-66.5 ng/mL Second Trimester 18.9-66.1 ng/mL Third Trimester 35.8-312.4 ng/mL Performed By: #### 1 4268673, 2420182, 1805481, 9947347, 1342225, 3790088, 62579514, 3870349 #### [facility] [address] [place] [address] Coding Summary.on 12-11-2019 Coding Summary. CODING DATE: 020 FINAL [facility] STATUS: Home (Routine DC) PAYOR: Leela [...] CphT Date Saved: 12/11/2019 12:51 pm Normal [facility] Estradiolon 12-09-2019 E2 [Mass/Vol] 1486.0 pg/mL [facility] Comment on above: Result Comment: Adul t Female: Follicular phase 12.5 - 166.0 Ovulation phase 85.8 - 498.0 Luteal phase 43.8 - 211.0 Postmenopausal <6.0 - 54.7 1st trimester 215.0 - >4300.0 Girls (1-10 years) 6.0 - 27.0 Mal ECLIA methodology Performed at: [facility] [id number] PhD Subhash Coronel Performed By: #### 1 8137065, 1343618, 0068607, 1078817, 1636471, 8568029, 63324782, 2075334 #### [facility] [address] [place] [address] LHon 12-09-2019 Lutropin Qn 6.2 m[IU]/mL [facility] Comment on above: Result Comment: Adul t Female: Follicular phase 2.4 - 12.6 Ovulation phase 14.0 - 95.6 Luteal phase 1.0 - 11.4 Postmenopausal 7.7 - 58.5 Performed at: [facility] [id number] PhD Subhash Coronel Performed By: #### 1 1706024, 2711470, 7596317, 2964094, 7043582, 4521518, 34040600, 8261025 #### [facility] [address] [place] [address] Progesteroneon 12-08-2019 Progesterone [Mass/Vol] ng/mL [facility] Comment on above: Result Comment: REFE RENCE RANGE Males 0.14-2.06 ng/mL Non- Females Follicular 0.10-0.60 ng/mL Luteal 3.00-17.5 ng/mL Midluteal 3.30-18.6 ng/mL Post-Menopausal 0.10-0.40 ng/mL First Trimester 8.30-66.5 ng/mL Second Trimester 18.9-66.1 ng/mL Third Trimester 35.8-312.4 ng/mL Performed By: #### 1 7991773, 5167471, 0516804, 9493914, 6888553, 0187795, 68288745, 5529744 #### [facility] [address] [place] [address] US Pelvis Non-OB Completeon 12-08-2019 US Pelvis [...] Boom Thomson MD Transcribed by: MADISON Technologist: JESSCIA Technical Comments Transabdominal Ultrasound Performed Transvaginal Ultrasound Performed Normal [facility] US Transvaginal Non-OBon US Transvaginal Non-OB Exam Date/Time: 12/08/2019 07:42 EST Reason for Exam: OVARIAN DYSFUNCTION Report Please refer to prior transabdominal pelvic sonogram report. FINAL REPORT Dictated: 12/08/2019 12:35 pm Citlaly Buchanan MD Signed (Electronic Signature): 12/08/2019 12:35 pm Signed by: Citlaly Buchanan MD Transcribed by: MADISON Technologist: JESSICA Normal [facility] Coding Summary.on 12-05-2019 Coding Summary. CODING DATE: 020 FINAL [facility] STATUS: Home (Routine DC) PAYOR: Leela [...] CphT Date Saved: 12/05/2019 10:15 am Normal [facility] Estradiolon 12-05-2019 E2 [Mass/Vol] 1328.0 pg/mL [facility] Comment on above: Result Comment: Adul t Female: Follicular phase 12.5 - 166.0 Ovulation phase 85.8 - 498.0 Luteal phase 43.8 - 211.0 Postmenopausal <6.0 - 54.7 1st trimester 215.0 - >4300.0 Girls (1-10 years) 6.0 - 27.0 Mal ECLIA methodology Performed at: [facility] [address] [id number] PhD Subhash Coronel Performed By: #### 1 2083360, 8584628, 4612357, 4901951, 7034954, 1004484, 55851649, 7096038 #### [facility] [address] [place] [address] LHon 12-05-2019 Lutropin Qn 7.2 m[IU]/mL [facility] Comment on above: Result Comment: Adul t Female: Follicular phase 2.4 - 12.6 Ovulation phase 14.0 - 95.6 Luteal phase 1.0 - 11.4 Postmenopausal 7.7 - 58.5 Performed at: [facility] [address] [id number] PhD Subhash Coronel Performed By: #### 1 4560470, 4491791, 0023878, 8361939, 2740312, 5737095, 46975067, 6121327 #### [facility] [address] [place] [address] Progesteroneon 12-04-2019 Progesterone [Mass/Vol] ng/mL [facility] Comment on above: Result Comment: REFE RENCE RANGE Males 0.14-2.06 ng/mL Non- Females Follicular 0.10-0.60 ng/mL Luteal 3.00-17.5 ng/mL Midluteal 3.30-18.6 ng/mL Post-Menopausal 0.10-0.40 ng/mL First Trimester 8.30-66.5 ng/mL Second Trimester 18.9-66.1 ng/mL Third Trimester 35.8-312.4 ng/mL Performed By: #### 1 6571430, 1331479, 8213151, 9627726, 6611715, 7277195, 09636461, 9277033 #### [facility] [address] [place] [address] US Pelvis Non-OB Completeon 12-04-2019 US Pelvis [...] Comments Transabdominal Ultrasound Performed Transvaginal Ultrasound Performed [facility] US Transvaginal Non-OBon US Transvaginal Non-OB Exam Date/Time: 12/04/2019 07:41 EST Reason for Exam: OVARIAN DYSFUNCTION Report PLEASE REFER TO THE ULTRASOUND PELVIS NON-OB COMPLETE REPORT. FINAL REPORT Dictated: 12/04/2019 9:12 am Go Kaplan M.D. Signed (Electronic Signature): 12/04/2019 9:12 am Signed by: Go Kaplan M.D. Transcribed by: MADISON Technologist: SYBIL [facility] Coding Summary.on 12-01-2019 Coding Summary. CODING DATE: 020 FINAL [facility] STATUS: Home (Routine DC) PAYOR: [place] APC DESCRIPTION 5522 Level 2 Imaging without [...] Hill CphT Date Saved: 12/01/2019 12:[address] [facility] Estradiolon 12-01-2019 E2 [Mass/Vol] 945.3 pg/mL [place] Comment on above: Result Comment: Adul t Female: Follicular phase 12.5 - 166.0 Ovulation phase 85.8 - 498.0 Luteal phase 43.8 - 211.0 Postmenopausal <6.0 - 54.7 1st trimester 215.0 - >4300.0 Girls (1-10 years) 6.0 - 27.0 Mal ECLIA methodology Performed at: [facility] [id number] PhD Subhash Coronel Performed By: #### 1 3226433, 7913620, 9429519, 9546903, 3837412, 5922891, 62713933, 7322761 #### [facility] [address] [place] [address] LHon 12-01-2019 Lutropin Qn 6.9 m[IU]/mL [facility] Comment on above: Result Comment: Adul t Female: Follicular phase 2.4 - 12.6 Ovulation phase 14.0 - 95.6 Luteal phase 1.0 - 11.4 Postmenopausal 7.7 - 58.5 Performed at: [facility] [id number] PhD Subhash Coronel Performed By: #### 1 0461381, 2508312, 6549077, 0634356, 5361259, 6999425, 52693628, 5377059 #### [facility] [address] [place] [address] Progesteroneon 11-30-2019 Progesterone [Mass/Vol] 0.10 ng/mL [facility] Comment on above: Result Comment: REFE RENCE RANGE Males 0.14-2.06 ng/mL Non- Females Follicular 0.10-0.60 ng/mL Luteal 3.00-17.5 ng/mL Midluteal 3.30-18.6 ng/mL Post-Menopausal 0.10-0.40 ng/mL First Trimester 8.30-66.5 ng/mL Second Trimester 18.9-66.1 ng/mL Third Trimester 35.8-312.4 ng/mL Performed By: #### 1 4091100, 4909249, 4396000, 9631995, 2529378, 8545510, 38309254, 8286441 #### [place] [address] [place] [address] US Pelvis Non-OB Completeon 11-30-2019 US Pelvis [...] 11/30/2019 13:21 EST by Go Kaplan M.D. [facility] US Transvaginal Non-OBon US Transvaginal Non-OB Exam Date/Time: 11/30/2019 07:37 EST Reason for Exam: ovarian dysfunction Report PLEASE REFER TO THE ULTRASOUND PELVIS NON-OB COMPLETE REPORT. FINAL REPORT Dictated: 11/30/2019 9:01 am Go Kaplan M.D. Signed (Electronic Signature): 11/30/2019 9:01 am Signed by: Go Kaplan M.D. Transcribed by: MADISON Technologist: JESSICA Normal [facility] Coding Summary.on 11-24-2019 Coding Summary. CODING DATE: 020 [facility] STATUS: Home (Routine DC) PAYOR: [place] [employer] DESCRIPTION 5522 Level 2 Imaging without [...] result in slightly different terminology. Coded By: eTri Hill CphT Date Saved: 11/24/2019 08:10 am Normal [facility] Estradiolon 11-24-2019 E2 [Mass/Vol] 35.2 pg/mL [facility] Comment on above: Result Comment: [facility] t Female: Follicular phase 12.5 - 166.0 Ovulation phase 85.8 - 498.0 Luteal phase 43.8 - 211.0 Postmenopausal <6.0 - 54.7 1st trimester 215.0 - >4300.0 Girls (1-10 years) 6.0 - 27.0 Mal ECLIA methodology Performed at: [address] [id number] PhD Subhash Coronel Performed By: #### 1 [id number], 0038953, 9655547, 5944475, 7345344, 4026351, 47704644, 8151519 #### [facility] Laboratory [address] [place] [address] FSH and LHon 11-24-2019 Follitropin Qn 8.7 m[IU]/mL [facility] Comment on above: Result Comment: [facility] t Female: Follicular phase 3.5 - 12.5 Ovulation phase 4.7 - 21.5 Luteal phase 1.7 - 7.7 Postmenopausal 25.8 - 134.8 Performed at: [address] [id number] PhD Subhash Coronel Performed By: #### 1 [id number], 2456817, 7865654, 0286565, 4948167, 3215022, 47577746, 4674415 #### [facility] Laboratory [address] [place] [address] Lutropin Qn 9.1 m[IU]/mL [facility] Comment on above: Result Comment: [facility] t Female: Follicular phase 2.4 - 12.6 Ovulation phase 14.0 - 95.6 Luteal phase 1.0 - 11.4 Postmenopausal 7.7 - 58.5 Performed By: #### 1 5276119, 8365049, 5320065, 5728406, 3587796, 5714731, 76869587, 0830584 #### [facility] Laboratory [address] [place] [address] BhCG Quanton 11-23-2019 HCG.beta subunit Qn m[IU]/mL Normal 1-3 [facility] Comment on above: Result Comment: GEST ATIONAL AGE HCG RANGE (mIU/mL) NON- <1-3 0.2-1 WEEKS 5-50 1-2 WEEKS 50-500 2-3 WEEKS 100-5,000 3-4 WEEKS 500-10,000 4-5 WEEKS 1,000-50,000 5-6 WEEKS 10,000-100,000 6-8 WEEKS 15,000-200,000 8-12 WEEKS 10,000-100,000 Performed By: #### 1 8281692, 0361510, 3949136, 0209246, 8022116, 4151730, 44430490, 7605024 #### [facility] Laboratory [address] [place] [address] Progesteroneon 11-23-2019 Progesterone [Mass/Vol] 0.40 ng/mL [facility] Comment on above: Result Comment: REFE RENCE RANGE Males 0.14-2.06 ng/mL Non- Females Follicular 0.10-0.60 ng/mL Luteal 3.00-17.5 ng/mL Midluteal 3.30-18.6 ng/mL Post-Menopausal 0.10-0.40 ng/mL First Trimester 8.30-66.5 ng/mL Second Trimester 18.9-66.1 ng/mL Third Trimester 35.8-312.4 ng/mL Performed By: #### 1 4258939, 5659828, 1303404, 9189272, 8816024, 0306218, 78855169, 7470389 #### [facility] Laboratory [address] [place] [address] TSHon 11-23-2019 TSH Qn 0.76 mcIU/mL Normal 0.34-5.60 [facility] Comment on above: Performed By: #### 1 1068915, 5481565, 0287395, 8056179, 9677208, 1443147, 49066209, 8655397 #### [facility] Laboratory [address] [place] [address] US Pelvis Non-OB Completeon 11-23-2019 US Pelvis [...] Transabdominal Ultrasound Performed Transvaginal Ultrasound Performed Normal [facility] US Transvaginal Non-OBon US Transvaginal Non-OB Exam Date/Time: 11/23/2019 07:40 EST Reason for Exam: OVARIAN DYSFUNCTION Report PLEASE REFER TO THE ULTRASOUND PELVIS NON-OB COMPLETE REPORT. FINAL REPORT Dictated: 11/23/2019 9:26 am Go Kaplan M.D. Signed (Electronic Signature): 11/23/2019 9:26 am Signed by: Go Kaplan M.D. Transcribed by: MADISON Technologist: JESSICA [facility] Coding Summary.on 10-24-2019 Coding Summary. CODING DATE: 020 FINAL [facility] STATUS: Home (Routine DC) PAYOR: [place] APC DESCRIPTION 5414 Level 4 Gynecologic Procedures ADMIT DX: REASON FOR VISIT DX: O02.1 Missed FINAL DX: PRINCIPAL: O02.1 Missed SECONDARY: I10 Essential (primary) hypertension E03.9 Hypothyroidism, unspecified PYMT PROC APC STAT DESCRIPTION DOCTOR NAME DATE 17584 5414 J1 Treatment of missed Davie Grijalva MD 10/20/2019 , completed surgically; first trimester 655[address] Anesthesia for Davie Eaton Jr, DO 10/20/2019 incomplete or missed procedures NOTE: The code number assigned matches the documented diagnosis and / or procedure in the patient's chart. However, the narrative phrase printed from the coding software may appear abbreviated, or result in slightly different terminology. Revised Coded By: Althea Ortega Revised Date Saved: 10/24/2019 02:[address] [facility] Main OR Intraoperative Recor don 10-23-2019 Main OR Intraoperative Record IntraOp Document Type FT Summary Primary Physician: Davie Grijalva MD Finalized Date/Time: 10/23/19 11:48:56 Pt. Name: SUKHDEV SCHWARTZ/Sex: 1985 Female Med Rec #: [id number] Physician: Davie Grijalva MD Financial #: [id number] Pt. Type: A Room/Bed: Admit/Disch: 10/20/19 12:59:16 - 10/20/19 16:25:00 Institution: Case Times FT Entry 1 Patient Times In Room 10/20/19 14:00:00 Out Room 10/20/19 14:34:00 Procedure Times Start 10/20/19 14:19:00 Stop 10/20/19 14:25:00 Anesthesia Times Start 10/20/19 14:00:00 Stop 10/20/19 14:34:00 Last Modified By: Nona Cuellar RN 10/20/19 14:34:06 General Comments: 10/23/2019 Chart opened to review and send charges Hilda Stein VEHICLE MODIFICATION TECHNICIAN Case Attendance FT Entry 1 Entry 2 Entry 3 Case Attendee Carlito OVALLES, Geri Grijalva MD, Davie Castelan RN, Rena Role Performed Anesthesiologist Surgeon - Primary Fluorescent Solution Mixer - Primary Managing Partner [employer] Time In 10/20/19 14:00:00 10/20/19 14:16:00 10/20/19 14:00:00 Time Out 10/20/19 14:34:00 10/20/19 14:26:00 10/20/19 14:34:00 Procedure DILATATION and SUCTION DILATATION and SUCTION DILATATION and SUCTION CURETTAGE(.) CURETTAGE(.) CURETTAGE(.) Comments DR EATON SUPERVISING Last Modified By: Polo RN, Nona Cuellar RN, Nona Contreras RN 10/20/19 14:35:30 10/20/19 14:35:30 10/20/19 14:35:30 Entry 4 Entry 5 Case Attendee Polo GOODRICH, Nona Crook VEHICLE MODIFICATION TECHNICIAN, Mónica Role Performed Fluorescent Solution Mixer - Primary Scrub - Primary Time In [...] and tissue Entry 1 Skin Integrity Intact, [place], Warm, and Skin Abnormality No Dry Outcomes [...] Cuellar RN, Hord RN, Abby, Costello Crook VEHICLE MODIFICATION TECHNICIAN, Mónica VEHICLE MODIFICATION TECHNICIAN, Mónica Outcomes Met? Yes Yes Last Modified By: WancheseNona bishop RN, RN, Emily A 10/20/19 14:21:22 [...] RN Patient Status Stable Skin. Condition Intact, [place], Warm, and Dry Airway Maintenance Oxygen in Use? Yes Airway Device Simple Mask Flow Rate 8 L/min Outcomes Met? Yes Last Modified By: Nona Cuellar RN 10/20/19 14:35:23 Post-Care Text: The patient is free from signs and symptoms of injury related to transfer/transport General Comments: report given to modern languages professorElayne mayo rn Dressing/Packing FT Pre-Care Text: Administers [...] STRAIGHT Present Upon Arrival No Inserted 16FR [[id number]][F] Insertion Date/Time 10/20/19 14:15:00 Insertion Site Uretheral Urine bladder completely Inserted By Rena Catselan RN Characteristics drained, unmeasureable clear yellow urine [...] BLANKET MISTRAL AIR Quantity 1 Aid TORSO [[id number]][F] Fluid/Gillespie Unit Mistral warming system Setting high/43 Body Site Upper anterior torso Last Modified By: Nona Cuellar RN 10/20/19 13:54:58 Case Comments Finalized By: Juanita Stein CST Document Signatures Signed By: Nona Cuellar RN 10/20/19 14:35 Juanita Stein CST 10/23/19 11:48 Normal [facility] Operative Reporton 0 Operative Report [...] the cervix was gently dilated to a Higigns 27. A 9 mm suction curette was [...] Davie Grijalva MD, FACOG gls Dictated: 10/20/2019 #[id number] Typed: 10/23/2019 #[id number] cc: Davie Grijalva MD, FACOG [facility] Comment on above: Result Comment: Elec [...] Davie Grijalva MD, FACOG cr Dictated: 10/20/2019 #[id number] Typed: 10/21/2019 #[id number] cc: Davie Grijalva MD, FACISRAEL [facility] Comment on above: Result Comment: Elec [...] (mL): 1,000, 2.35, m2 Lactated Ringers IV Sehrrie 1000 mL 1,000 mL: 1,000 mL, IV, [...] All Problems Ovarian dysfunction / SNOMED CT 47782292 / Confirmed Hypothyroidism / SNOMED CT 68260698 / Confirmed Incomplete miscarriage / SNOMED CT 980624936 / Confirmed missed Pancreatitis / SNOMED CT 954213644 / Confirmed Histories Past Medical History: No active or resolved past medical history items have been selected or recorded. Family History: Diabetes mellitus type 2 Mother Thyroid cancer Mother Sister Procedure history: Cholecystectomy ([id number]) on 07/19/2019 at 33 Years. DIAGNOSTIC LAPAROSCOPY [...] results Radiology results ECG interpretation Condition Plan [place] [employer]hesi[employer] (ASA) physical status classification: Class II. Anesthetic Preoperative Plan Anesthesia: General. . Anesthetic plan, risks, benefits, and alternatives discussed with the patient and/or family. Risks discussed: nausea, vomiting, headache, sore throat, dental injury, serious complications. Patient verbalized understanding. Communication: face to face with (patient 5 minutes, Pt educated on the importance of smoking cessation.). [facility] Comment on above: Result Comment: Elec tronically Signed By: Davie Eaton Jr, DO\doyle\Date and Time Signed: 10/23/19 07:34 EST Coding Summary.on 10-20-2019 Coding Summary. CODING DATE: 020 FINAL [facility] STATUS: Home (Routine DC) PAYOR: Commercial [...] Hill CphT Date Saved: 10/20/2019 09:[address] [facility] History and Physicalon 10-20 History and Physical [...] Davie Grijalva MD, FACOG gls Dictated: 10/20/2019 #[id number] Typed 10/20/2019 #[id number] cc: Davie Grijalva MD, FACOG Normal [facility] Comment on above: Result Comment: Elec tronically Signed By: Rudi GUSTAFSON, Davie Duong\.br\Date and Time Signed: 10/20/19 10:15 EST Inpatient Patient Summaryon 10-20-2019 Inpatient Patient Summary [place] [id number] [facility] Clinical Discharge Instructions PERSON INFORMATION Name: SUKHDEV SCHWARTZ [facility]#:[id number] PHYSICIANS Admitting Physician: Davie Grijalva MD Attending Physician: Davie Grijalva MD PCP: LOLI MATIAS MD Discharge Diagnosis: Hypothyroidism; Incomplete miscarriage; Status post dilation and curettage Comment: PATIENT EDUCATION INFORMATION Instructions: Post Op Patient Instructions - FT (CUSTOM); 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 MEDICATION LIST New Medications [facility] [address] [place], [place] [id number], [phone] ibuprofen (ibuprofen 600 mg Tab) 1 Tablets [...] Mouth 2 times a day. Comment: Normal [facility] Main OR PACU I Recordon Main OR PACU I Record PACU Phase I Document Type FT Summary Primary Physician: Davie Grijalva MD Finalized Date/Time: 10/20/19 14:55:25 Pt. Name: SEN SCHWARTZTRUMAN Cote/Sex: 1985 Female Med Rec #: [id number] Physician: Daive Grijalva MD Financial #: [id number] Pt. Type: A Room/Bed: 05/18 Admit/Disch: 10/20/19 [...] By: Carin Iverson RN 10/20/19 14:55 Normal [facility] Main OR Preoperative Recordo n 10-20-2019 Main OR Preoperative Record PreOp Document Type FT Summary Primary Physician: Davie Grijalva MD Finalized Date/Time: 10/20/19 14:24:04 Pt. Name: SUKHDEV SCHWARTZ/Sex: 1985 Female Med Rec #: [id number] Physician: Davie Grijalva MD Financial #: [id number] Pt. Type: A Room/Bed: [facility] Admit/Disch: 10/20/19 12:59:16 - Institution: Case Times [...] By: Nona Cuellar RN 10/20/19 14:24 Normal [facility] Patient Education - Texton 0 10-20-2019 Patient [...] cramps. PLEASE CALL FOR ANY PROBLEMS Normal [facility] Coding Summary.on 10-19-2019 Coding Summary. CODING DATE: 020 FINAL [facility] STATUS: Home (Routine DC) PAYOR: Commercial [...] CphT Date Saved: 10/19/2019 12:19 pm Normal [facility] RPRon 10-19-2019 Reagin Ab RPR Ql (S) Non-Reactive Normal Non-Reactiv e [facility] Comment on above: Performed By: #### 1 3158705, 8151197, 0975477, 9906289, 7721923, 9053745, 62411682, 5269001 #### [facility] Laboratory [address] [place] [address] ABO/Rh Retypeon 10-17-2019 ABO/Rh Retype Interp Positive [facility] Comment on above: Performed By: #### 1 7475016, 6001014, 5149598, 5367787, 5300720, 3483779, 08175336, 8662206 #### [facility] Laboratory [address] [place] [address] BUNon 10-17-2019 Urea nitrogen [Mass/Vol] 12 mg/dL Normal 5-21 [facility] Comment on above: Performed By: #### 1 6370579, 8414442, 0161166, 3613644, 8061475, 1448011, 09575774, 7451254 #### [facility] Laboratory [address] [place] [address] CBC w/Indiceson 10-17-2019 Erythrocyte distribution width (RBC) [Ratio] 12.7 % Normal 10.9-14.2 [facility] Comment on above: Performed By: #### 1 9570489, 2672929, 6628749, 7715422, 5340901, 7611982, 73703374, 3433763 #### [facility] Laboratory [address] [place] [address] Hematocrit (Bld) [Volume fraction] 34.6 % Normal 34.0-46.0 [facility] Comment on above: Performed By: #### 1 3789418, 2938832, 6146169, 8766145, 0836601, 6266638, 43230318, 8293211 #### [facility] Laboratory [address] [place] [address] Hemoglobin (Bld) [Mass/Vol] 11.7 g/dL Low 12.0-16.0 [facility] Comment on above: Performed By: #### 1 6574873, 3546599, 7702951, 4624562, 8631565, 0144323, 21614578, 3999168 #### [facility] Laboratory [address] [place], [place] [address] MCH (RBC) [Entitic mass] 30.7 pg Normal 27.0-34.0 [facility] Comment on above: Performed By: #### 1 9074809, 2136900, 8932413, 2942978, 0537663, 3154410, 74450350, 2780510 #### [facility] Laboratory [address] [place] [address] MCHC (RBC) [Mass/Vol] 33.8 g/dL Normal 31.4-36.0 [facility] Comment on above: Performed By: #### 1 5573995, 3612553, 0238712, 1523897, 1063825, 0902329, 86603036, 5366693 #### [facility] Laboratory [address] [place] [address] MCV (RBC) [Entitic vol] 90.8 fL Normal 80.0-100.0 [facility] Comment on above: Performed By: #### 1 4535122, 6131914, 4285640, 6838789, 5944945, 2184116, 95887985, 3898308 #### [facility] Laboratory [address] [place] [address] Platelet mean volume (Bld) [Entitic vol] 7.5 fL Normal 6.4-10.8 [facility] Comment on above: Performed By: #### 1 7152682, 2679504, 7139516, 1958842, 7052010, 9913590, 25145482, 7358895 #### [facility] Laboratory [address] [place] [address] Platelets (Bld) [#/Vol] 319.0 E9/L Normal 150.0-500.0 [facility] Comment on above: Performed By: #### 1 6515048, 7836659, 9299411, 0769020, 7352811, 8613246, 91055379, 6846424 #### [facility] Laboratory [address] [place] [id number] RBC (Bld) [#/Vol] 3.8 E12/L Low 4.3-5.9 [facility] Comment on above: Performed By: #### 1 8773415, 4282605, 3587879, 2760543, 6861315, 7022597, 69676667, 7085559 #### [facility] Laboratory [address] [place] [address] WBC corrected for nucl RBC Auto (Bld) [#/Vol] 6.1 E9/L Normal 4.0-11.0 [facility] Comment on above: Performed By: #### 1 9342407, 0973695, 9376256, 4607030, 4273812, 2631448, 17505716, 7820294 #### [facility] Laboratory [address] [place] [address] Creatinineon 10-17-2019 Creatinine [Mass/Vol] 0.6 mg/dL Normal 0.5-1.3 [facility] Comment on above: Performed By: #### 1 8514228, 4719049, 4167317, 7068439, 2514742, 4268142, 41789805, 2577834 #### [facility] Laboratory [address] [place] [address] Lyteson 10-17-2019 Anion gap [Moles/Vol] 12 mmol/L Normal 6-16 [facility] Comment on above: Performed By: #### 1 2678673, 6469774, 0752919, 9574806, 5111486, 1344045, 07059976, 0658720 #### [facility] Laboratory [address] [place] [address] Chloride [Moles/Vol] 109 mmol/L Normal 101-111 [facility] Comment on above: Performed By: #### 1 8865342, 4111861, 2236634, 1021688, 0968148, 2754542, 62482025, 8330213 #### [facility] Laboratory [address] [place] [address] CO2 [Moles/Vol] 26 mmol/L Normal 21-31 [facility] Comment on above: Performed By: #### 1 0595485, 6236080, 8333181, 4662876, 7753813, 0486189, 91736426, 2466435 #### [facility] Laboratory [address] [place] [address] Potassium [Moles/Vol] 4.3 mmol/L Normal 3.5-5.3 [facility] Comment on above: Performed By: #### 1 8567837, 8346470, 6135893, 2046561, 8290249, 0470868, 10232742, 8391366 #### [facility] Laboratory [address] [place] [address] Sodium [Moles/Vol] 143 mmol/L Normal 135-145 [facility] Comment on above: Performed By: #### 1 2777033, 7302506, 7814230, 4741849, 2734058, 7959637, 42816234, 0960259 #### [facility] Laboratory [address] [place] [address] PT & PTTon 10-17-2019 aPTT Coag (PPP) [Time] 29.9 second(s) Normal 25.1-36.5 [facility] Comment on above: Result Comment: Hepa rin therapeutic range (represented by Anti-Factor Xa activity of 0.2 - 0.4 U/mL) corresponds to PTT of 56.6 - 109.0 sec. Performed By: #### 1 3868810, 1651179, 0635270, 9698947, 0016046, 2403149, 93810802, 7319273 #### [facility] [address] [place] [address] INR Coag (PPP) [Relative time] 1.0 {INR} [facility] Comment on above: Result Comment: INR results are specifically intended to assess patients stabilized on long-term Anticoagulation therapy suggested INR?s ?Less Intensive Anticoagulation? 2.0 ? 3.0 Conventional Range 3.0 ? 4.5 Performed By: #### 1 8114675, 2766566, 3744873, 8367216, 9547102, 4221700, 86820883, 5235809 #### [facility] Laboratory [address] [place] [address] PT Coag (PPP) [Time] 11.0 second(s) Normal 10.2-12.9 [facility] Comment on above: Performed By: #### 1 7911485, 9455199, 3424269, 3122753, 8889299, 2896944, 41184488, 3594007 #### [facility] Laboratory [address] [place] [address] eGFRon 10-17-2019 GFR/1.73 sq M predicted among blacks MDRD (S/P/Bld) [Vol rate/Area] mL/min/{1.73_m2} Normal >=59 [facility] Comment on above: Order Comment: Order added by Discern Expert. Result Comment: eGFR is race adjusted. AA=. Performed By: #### 1 9717203, 1478699, 8564846, 4881283, 5716905, 9146471, 80024310, 8542482 #### [facility] Laboratory [address] [place] [address] GFR/1.73 sq M predicted among non-blacks MDRD (S/P/Bld) [Vol rate/Area] mL/min/{1.73_m2} Normal >=59 [facility] Comment on above: Order Comment: Order added by Discern Expert. Result Comment: Pattern Drum Maker ivan kidney disease could be indicated at eGFR's of less than 60 mL/min/1.73m2. Kidney failure is indicated at less than 15 mL/min/1.73m2. Performed By: #### 1 5834030, 4219450, 1087006, 4682727, 5467498, 3772778, 54257264, 3455648 #### [facility] Laboratory [address] [place] [address] Coding Summary.on 10-12-2019 Coding Summary. CODING DATE: 019 FINAL [facility] STATUS: Home (Routine DC) PAYOR: Commercial [...] CphT Date Saved: 10/12/2019 12:46 pm Normal [facility] BhCG Quanton 10-09-2019 HCG.beta subunit Qn 1862 m[IU]/mL High 1-3 [facility] Comment on above: Result Comment: GEST ATIONAL AGE HCG RANGE (mIU/mL) NON- <1-3 0.2-1 WEEKS 5-50 1-2 WEEKS 50-500 2-3 WEEKS 100-5,000 3-4 WEEKS 500-10,000 4-5 WEEKS 1,000-50,000 5-6 WEEKS 10,000-100,000 6-8 WEEKS 15,000-200,000 8-12 WEEKS 10,000-100,000 Performed By: #### 1 8129284, 2262026, 1773607, 9617534, 3159818, 8531937, 04966505, 4069238 #### [facility] Laboratory [address] [place] [address] Coding Summary.on 10-06-2019 Coding Summary. CODING DATE: 019 FINAL [facility] DSC STATUS: Home (Routine DC) PAYOR: Commercial [...] CphT Date Saved: 10/06/2019 12:45 pm Normal [facility] US 1st Trimesteron 10-06-2019 US 1st Trimester [...] Size < Dates Uterus Position Anteverted Normal [facility] US Transvaginalon 10-06-2019 US Transvaginal Exam Date/Time: 10/05/2019 13:36 EST Reason for Exam: possible ectopic Report PLEASE REFER TO THE ULTRASOUND FIRST TRIMESTER REPORT. FINAL REPORT Dictated: 10/06/2019 10:35 am Go Kaplan M.D. Signed (Electronic Signature): 10/06/2019 10:35 am Signed by: Go Kaplan M.D. Transcribed by: MADISON Technologist: COREY Normal [facility] BhCG Quanton 10-05-2019 HCG.beta subunit Qn 1726 m[IU]/mL High 1-3 [facility] Comment on above: Result Comment: GEST ATIONAL AGE HCG RANGE (mIU/mL) NON- <1-3 0.2-1 WEEKS 5-50 1-2 WEEKS 50-500 2-3 WEEKS 100-5,000 3-4 WEEKS 500-10,000 4-5 WEEKS 1,000-50,000 5-6 WEEKS 10,000-100,000 6-8 WEEKS 15,000-200,000 8-12 WEEKS 10,000-100,000 Performed By: #### 2 726474 ####[facility] [address] [place] [address] Coding Summary.on 10-04-2019 Coding Summary. 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: Commercial Insurance [...] CphT Date Saved: 10/04/2019 02:19 pm Normal [facility] Estradiolon 10-04-2019 E2 [Mass/Vol] 189.4 pg/mL [place] Comment on above: Result Comment: Adul t Female: Follicular phase 12.5 - 166.0 Ovulation phase 85.8 - 498.0 Luteal phase 43.8 - 211.0 Postmenopausal <6.0 - 54.7 1st trimester 215.0 - >4300.0 Girls (1-10 years) 6.0 - 27.0 Mal ECLIA methodology Performed at: [facility] [id number] PhD Subhash Coronel Performed By: #### 2 570385, 2369875, 41615083, 0005064 ####[facility] [address] [place] [address] FSH and LHon 10-04-2019 Follitropin Qn 4.6 m[IU]/mL [facility] Comment on above: Result Comment: [facility] terell Female: Follicular phase 3.5 - 12.5 Ovulation phase 4.7 - 21.5 Luteal phase 1.7 - 7.7 Postmenopausal 25.8 - 134.8 Performed at: [facility] [id number] PhD Subhash Coronel Performed By: #### 2 506714, 5648652, 95384210, 5897369 ####[facility] [address] [place] [address] Lutropin Qn 10.0 m[IU]/mL [place] Comment on above: Result Comment: [facility] terell Female: Follicular phase 2.4 - 12.6 Ovulation phase 14.0 - 95.6 Luteal phase 1.0 - 11.4 Postmenopausal 7.7 - 58.5 Performed By: #### 2 921918, 4375073, 89828488, 2109609 ####[facility] [address] [place] [address] BhCG Quanton 10-03-2019 HCG.beta subunit Qn 1625 m[IU]/mL High 1-3 [facility] Comment on above: Result Comment: GEST ATIONAL AGE HCG RANGE (mIU/mL) NON- <1-3 0.2-1 WEEKS 5-50 1-2 WEEKS 50-500 2-3 WEEKS 100-5,000 3-4 WEEKS 500-10,000 4-5 WEEKS 1,000-50,000 5-6 WEEKS 10,000-100,000 6-8 WEEKS 15,000-200,000 8-12 WEEKS 10,000-100,000 Performed By: #### 2 [id number] ####[facility] [address] [place] [address] Progesteroneon 10-03-2019 Progesterone [Mass/Vol] 7.80 ng/mL [facility] Comment on above: Result Comment: REFE RENCE RANGE Males 0.14-2.06 ng/mL Non- Females Follicular 0.10-0.60 ng/mL Luteal 3.00-17.5 ng/mL Midluteal 3.30-18.6 ng/mL Post-Menopausal 0.10-0.40 ng/mL First Trimester 8.30-66.5 ng/mL Second Trimester 18.9-66.1 ng/mL Third Trimester 35.8-312.4 ng/mL Performed By: #### 2 206901, 8476071, 93786697, 4101106 ####[facility] [address] [place] [address] TSHon 10-03-2019 TSH Qn 0.84 mcIU/mL Normal 0.34-5.60 [facility] Comment on above: Performed By: #### 2 310535, 7104984, 59037455, 5330724 ####[facility] [address] [place] [address] Coding Summary.on 09-28-2019 Coding Summary. 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: Commercial Insurance [...] Chau Date Saved: 09/28/2019 01:08 pm Normal [facility] BhCG Quanton 09-27-2019 HCG.beta subunit Qn 579 m[IU]/mL High 1-3 Fis [facility] Comment on above: Result Comment: GEST ATIONAL AGE HCG RANGE (mIU/mL) NON- <1-3 0.2-1 WEEKS 5-50 1-2 WEEKS 50-500 2-3 WEEKS 100-5,000 3-4 WEEKS 500-10,000 4-5 WEEKS 1,000-50,000 5-6 WEEKS 10,000-100,000 6-8 WEEKS 15,000-200,000 8-12 WEEKS 10,000-100,000 Performed By: #### 2 [id number] ####[facility] [address] [place] [address] External Lab Vitamin B6on Vitamin B6 4.4 [facility] Vitamin Aon 09-20-2019 Vitamin A 75.2 [facility] Vitamin B1on 09-20-2019 Thiamine (Vitamin B1) 116.7 [facility] Zincon 09-20-2019 Zinc 97 [facility] Coding Summary.on 09-18-2019 Coding Summary. 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: Commercial Insurance [...] CphT Date Saved: 09/18/2019 01:21 pm Normal [facility] EXT LAB FERRITINon 9 Ferritin [Mass/Vol] 55 ng/mL [facility] External Lab Ironon 09-18-20 19 Iron [Mass/Vol] 89 ug/dL mcg/mL [facility] h External Lab Vitamin D, 25-O Hon 09-18-2019 Vitamin D, 25-OH 43.9 [facility] External Vitamin B12 and Fol ateon 09-18-2019 Cobalamin (Vitamin B12) [Mass/Vol] 291 pg/mL [facility] Folate 22.3 ng/mL Off scale high [facility] Interpretation and review of laboratory results Abnormal [facility] Vit Aon 09-18-2019 Retinol [Mass/Vol] 75.2 microgram/dL High 18.9-57.3 [facility] Comment on above: Result Comment: Refe rence [...] Food and Drug Administration. Performed at: [address] [id number] MD Keegan Limon Performed By: #### 2 947482, 8088582, 6667997, 3612227, [id number], 86188818, 25559387, 66464245, 17526424 ####[facility] [address] [place] [address] Vit B1on 09-18-2019 Thiamine (Bld) [Moles/Vol] 116.7 nmol/L 66.5-200.0 [facility] Comment on above: Result Comment: This test was developed and its performance characteristics determined by [facility]. It has not been cleared or approved by the Food and Drug Administration. Performed at: [address] [id number] MD Keegan Limon Performed By: #### 2 854654, 4018682, 4212820, 4142255, 764748690, 92383631, 46560289, 66414572, 39589255 ####[facility] [address] [place] [address] Vitamin B6on 09-18-2019 Pyridoxine [Mass/Vol] 4.4 microgram/L 2.0-32.8 [facility] Comment on above: Result Comment: This test was developed and its performance characteristics determined by [facility]. It has not been cleared or approved by the Food and Drug Administration. Performed at: [address] [id number] MD Keegan Limon Performed By: #### 2 462446, 0518455, 3610137, 5993197, 517802952, 68881982, 83244263, 59042632, 28445890 ####[facility] [address] [place] [address] Zinc Lvlon 09-18-2019 Zinc [Mass/Vol] 97 microgram/dL 56-134 [facility] Comment on above: Result Comment: This test was developed and its performance characteristics determined by [facility]. It has not been cleared or approved by the Food and Drug Administration. Detection Limit = 5 Performed at: [facility] [id number] MD Keegan Limon Performed By: #### 2 186187, 9387910, 3874051, 0412936, [id number], 27458992, 82616735, 56928440, 92009335 ####[facility] [address] [place] [address] Coding Summary.on 09-15-2019 Coding Summary. CODING DATE: 019 FINAL [facility] STATUS: Home (Routine DC) PAYOR: Commercial [...] CphT Date Saved: 09/15/2019 02:01 pm Normal [facility] Estradiolon 09-14-2019 E2 [Mass/Vol] 929.6 pg/mL [place] Comment on above: Result Comment: Adul t Female: Follicular phase 12.5 - 166.0 Ovulation phase 85.8 - 498.0 Luteal phase 43.8 - 211.0 Postmenopausal <6.0 - 54.7 1st trimester 215.0 - >4300.0 Girls (1-10 years) 6.0 - 27.0 Mal ECLIA methodology Performed at: [facility] [id number] PhD Subhash Coronel Performed By: #### 2 077176, 5993552 ####[facility] [address] [place] [address] BhCG Quanton 09-13-2019 HCG.beta subunit Qn 132 m[IU]/mL High 1-3 [facility] Comment on above: Result Comment: GEST ATIONAL AGE HCG RANGE (mIU/mL) NON- <1-3 0.2-1 WEEKS 5-50 1-2 WEEKS 50-500 2-3 WEEKS 100-5,000 3-4 WEEKS 500-10,000 4-5 WEEKS 1,000-50,000 5-6 WEEKS 10,000-100,000 6-8 WEEKS 15,000-200,000 8-12 WEEKS 10,000-100,000 Performed By: #### 1 3160526, 6717169, 3110740, 3068469, 5343712, 1647019, 90791883, 9089523 #### [facility] Laboratory [address] [place] [address] Ferritinon 09-13-2019 Ferritin [Mass/Vol] 55 ng/mL Normal 11-307 [facility] Comment on above: Result Comment: NORM ALS MEN <30 YRS 16-132 ng/mL MEN >30 YRS 8-338 ng/mL WOMEN (PREMEN) 6-104 ng/mL WOMEN (POSTMEN) 12-210 ng/mL Performed By: #### 1 0107996, 7220621, 0514367, 6434062, 1091706, 1431977, 41486268, 8656640 #### [facility] Laboratory [address] [place] [address] Folateon 09-13-2019 Folate [Mass/Vol] ng/mL Normal >=6.7 [facility] Comment on above: Performed By: #### 1 5067534, 6324116, 9370825, 5629197, 1783875, 2552456, 55933035, 6408020 #### [facility] Laboratory [address] [place] [address] Ironon 09-13-2019 Iron [Mass/Vol] 89 microgram/dL Normal 35-153 [facility] Comment on above: Performed By: #### 1 5196624, 5811614, 1201687, 9589304, 7589320, 2209550, 65752478, 9146395 #### [facility] Laboratory [address] [place] [address] Progesteroneon 09-13-2019 Progesterone [Mass/Vol] 29.00 ng/mL [facility] Comment on above: Result Comment: REFE RENCE RANGE Males 0.14-2.06 ng/mL Non- Females Follicular 0.10-0.60 ng/mL Luteal 3.00-17.5 ng/mL Midluteal 3.30-18.6 ng/mL Post-Menopausal 0.10-0.40 ng/mL First Trimester 8.30-66.5 ng/mL Second Trimester 18.9-66.1 ng/mL Third Trimester 35.8-312.4 ng/mL Performed By: #### 2 302546, 7383449 ####[facility] [address] [place] [address] Vit B12on 09-13-2019 Cobalamin (Vitamin B12) [Mass/Vol] 291 pg/mL Normal 50-1500 [facility] Comment on above: Performed By: #### 2 497224, 5640593, 3157634, 2769771, 985671924, 46096857, 84949553, 51593483, 55810999 ####[facility] [address] [place] [address] Vitamin D 25 Hydroxyon 09-13 Calcidiol [Mass/Vol] 43.9 ng/mL Normal 30.0-100.0 [facility] Comment on above: Result Comment: Vit hutchinson D deficiency has been defined as a level of serum 25-OH vitamin D less than 20 ng/mL (1,2) by the [place] of [employer] and an Endocrine Society practice guideline. The Endocrine Society further defined vitamin D insufficiency as a level between 21 and 29 ng/mL (2). 1. IOM ([place] of [employer]). 2010. Dietary reference intakes for calcium and D. [place]: The National Academies Press. 2. Isaías MF, Renay NC, Foreign HUERTA, et al. Evaluation, treatment, and prevention of vitamin D deficiency: an Endocrine Society clinical practice guideline. JCEM. 2010; 96 (7):1911-30. Performed By: #### 2 489115, 1073005, 6682393, 1681417, 759776937, 79801511, 62444354, 52680043, 92015629 ####[facility] [address] [place] [address] Coding Summary.on 09-12-2019 Coding Summary. 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: Commercial Insurance [...] CphT Date Saved: 09/12/2019 07:36 am Normal [facility] Estradiolon 09-12-2019 E2 [Mass/Vol] 1006.0 pg/mL [facility] Comment on above: Result Comment: Adul t Female: Follicular phase 12.5 - 166.0 Ovulation phase 85.8 - 498.0 Luteal phase 43.8 - 211.0 Postmenopausal <6.0 - 54.7 1st trimester 215.0 - >4300.0 Girls (1-10 years) 6.0 - 27.0 Mal ECLIA methodology Performed at: [facility] [address] [id number] PhD Subhash Coronel Performed By: #### 1 9855131, 1989144, 7547589, 2961815, 5499567, 5853658, 98206479, 1212451 #### [facility] Laboratory [address] [place] [address] [facility] Quanton 09-11-2019 HCG.beta subunit Qn 121 m[IU]/mL High 1-3 [facility] Comment on above: Result Comment: GEST ATIONAL AGE HCG RANGE (mIU/mL) NON- <1-3 0.2-1 WEEKS 5-50 1-2 WEEKS 50-500 2-3 WEEKS 100-5,000 3-4 WEEKS 500-10,000 4-5 WEEKS 1,000-50,000 5-6 WEEKS 10,000-100,000 6-8 WEEKS 15,000-200,000 8-12 WEEKS 10,000-100,000 Performed By: #### 1 6180052, 8093874, 5868645, 6637496, 4313859, 1911968, 39422914, 6536923 #### [facility] Laboratory [address] [place] [address] Progesteroneon 09-11-2019 Progesterone [Mass/Vol] 26.60 ng/mL [facility] Comment on above: Result Comment: REFE RENCE RANGE Males 0.14-2.06 ng/mL Non- Females Follicular 0.10-0.60 ng/mL Luteal 3.00-17.5 ng/mL Midluteal 3.30-18.6 ng/mL Post-Menopausal 0.10-0.40 ng/mL First Trimester 8.30-66.5 ng/mL Second Trimester 18.9-66.1 ng/mL Third Trimester 35.8-312.4 ng/mL Performed By: #### 1 9957068, 3209086, 9943589, 1758955, 4540391, 1098445, 22209422, 1095506 #### [facility] Laboratory [address] [place] [address] TSHon 09-11-2019 TSH Qn 0.88 mcIU/mL Normal 0.34-5.60 [facility] Comment on above: Performed By: #### 1 9401281, 7249117, 5053408, 9319006, 1226221, 3949378, 95173251, 8993499 #### [facility] Laboratory [address] [place] [address] Coding Summary.on 09-10-2019 Coding Summary. CODING DATE: 019 FINAL [facility] STATUS: Home (Routine DC) PAYOR: Commercial [...] Putnam Date Saved: 09/10/2019 02:11 pm Normal [facility] Lipase Levelon 09-08-2019 Lipase [Catalytic activity/Vol] U/L High 13-58 [facility] Comment on above: Result Comment: conf irmed by dilution Performed By: #### 1 3451170, 7513299, 7301210, 5238963, 7236794, 5785836, 66582075, 5425696 #### [facility] Laboratory [address] [place] [address] BhCG Quanton 09-07-2019 HCG.beta subunit Qn 90 m[IU]/mL High 1-3 [facility] Comment on above: Result Comment: GEST ATIONAL AGE HCG RANGE (mIU/mL) NON- <1-3 0.2-1 WEEKS 5-50 1-2 WEEKS 50-500 2-3 WEEKS 100-5,000 3-4 WEEKS 500-10,000 4-5 WEEKS 1,000-50,000 5-6 WEEKS 10,000-100,000 6-8 WEEKS 15,000-200,000 8-12 WEEKS 10,000-100,000 Performed By: #### 1 5389903, 1070380, 1102001, 1047591, 7847352, 9201636, 02147298, 4755919 #### [facility] Laboratory [address] [place] [address] Progesteroneon 09-07-2019 Progesterone [Mass/Vol] 23.40 ng/mL [facility] Comment on above: Result Comment: REFE RENCE RANGE Males 0.14-2.06 ng/mL Non- Females Follicular 0.10-0.60 ng/mL Luteal 3.00-17.5 ng/mL Midluteal 3.30-18.6 ng/mL Post-Menopausal 0.10-0.40 ng/mL First Trimester 8.30-66.5 ng/mL Second Trimester 18.9-66.1 ng/mL Third Trimester 35.8-312.4 ng/mL Performed By: #### 1 6790116, 4675164, 8481528, 0331684, 6768579, 4224606, 52743195, 8899768 #### [facility] Laboratory [address] [place] [address] Coding Summary.on 09-05-2019 Coding Summary. 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: Commercial Insurance [...] CphT Date Saved: 09/05/2019 01:07 pm Normal [facility] Estradiolon 09-05-2019 E2 [Mass/Vol] 799.5 pg/mL [place] Comment on above: Result Comment: Adul t Female: Follicular phase 12.5 - 166.0 Ovulation phase 85.8 - 498.0 Luteal phase 43.8 - 211.0 Postmenopausal <6.0 - 54.7 1st trimester 215.0 - >4300.0 Girls (1-10 years) 6.0 - 27.0 Mal ECLIA methodology Performed at: [facility] [id number] PhD Subhash Coronel Performed By: #### 1 8979781, 2162232, 2251010, 5998227, 8306575, 6789279, 42394618, 9196430 #### [facility] Laboratory [address] [place] [address] Progesteroneon 09-04-2019 Progesterone [Mass/Vol] 39.30 ng/mL [facility] Comment on above: Result Comment: REFE RENCE RANGE Males 0.14-2.06 ng/mL Non- Females Follicular 0.10-0.60 ng/mL Luteal 3.00-17.5 ng/mL Midluteal 3.30-18.6 ng/mL Post-Menopausal 0.10-0.40 ng/mL First Trimester 8.30-66.5 ng/mL Second Trimester 18.9-66.1 ng/mL Third Trimester 35.8-312.4 ng/mL Performed By: #### 1 5736540, 0148433, 6355115, 4212357, 7124929, 5086972, 22910610, 0878963 #### [facility] Laboratory [address] [place] [address] TSHon 09-04-2019 TSH Qn 0.83 mcIU/mL Normal 0.34-5.60 [facility] Comment on above: Performed By: #### 1 0158074, 3722594, 8707842, 2720273, 4745482, 9700185, 57976144, 9842307 #### [facility] Laboratory [address] [place] [address] Coding Summary.on 08-23-2019 Coding Summary. CODING DATE: 019 FINAL [facility] STATUS: Home (Routine DC) PAYOR: Commercial [...] CphT Date Saved: 08/23/2019 01:15 pm Normal [facility] Estradiolon 08-23-2019 E2 [Mass/Vol] 903.5 pg/mL [place] Comment on above: Result Comment: Adul t Female: Follicular phase 12.5 - 166.0 Ovulation phase 85.8 - 498.0 Luteal phase 43.8 - 211.0 Postmenopausal <6.0 - 54.7 1st trimester 215.0 - >4300.0 Girls (1-10 years) 6.0 - 27.0 Mal ECLIA methodology Performed at: [facility] [id number] PhD Subhash Coronel Performed By: #### 1 9238022, 9209197, 9006157, 7227146, 8739965, 1922488, 08112640, 7644824 #### [facility] Laboratory [address] [place] [address] LHon 08-23-2019 Lutropin Qn 7.7 m[IU]/mL [facility] Comment on above: Result Comment: Adul t Female: Follicular phase 2.4 - 12.6 Ovulation phase 14.0 - 95.6 Luteal phase 1.0 - 11.4 Postmenopausal 7.7 - 58.5 Performed at: [facility] [id number] PhD Subhash Coronel Performed By: #### 1 7092075, 7580712, 2618537, 4826111, 4153271, 2202807, 52468932, 3650028 #### [facility] Laboratory [address] [place] [address] Progesteroneon 08-22-2019 Progesterone [Mass/Vol] ng/mL [facility] Comment on above: Result Comment: REFE RENCE RANGE Males 0.14-2.06 ng/mL Non- Females Follicular 0.10-0.60 ng/mL Luteal 3.00-17.5 ng/mL Midluteal 3.30-18.6 ng/mL Post-Menopausal 0.10-0.40 ng/mL First Trimester 8.30-66.5 ng/mL Second Trimester 18.9-66.1 ng/mL Third Trimester 35.8-312.4 ng/mL Performed By: #### 1 8425628, 5058791, 8628022, 0475696, 8502087, 9100413, 23004792, 4690439 #### [facility] Laboratory [address] [place] [address] Coding Summary.on 08-16-2019 Coding Summary. CODING DATE: 019 FINAL [facility] STATUS: Home (Routine DC) PAYOR: Commercial [...] SantiagoTeri Date Saved: 08/16/2019 02:00 pm Normal [facility] Estradiolon 08-16-2019 E2 [Mass/Vol] 52.3 pg/mL [facility] Comment on above: Result Comment: Adul t Female: Follicular phase 12.5 - 166.0 Ovulation phase 85.8 - 498.0 Luteal phase 43.8 - 211.0 Postmenopausal <6.0 - 54.7 1st trimester 215.0 - >4300.0 Girls (1-10 years) 6.0 - 27.0 Mal ECLIA methodology Performed at: [address] [id number] PhD Subhash Coronel Performed By: #### 1 1200060, 0082219, 4067639, 2942330, 8710715, 8538788, 50417600, 2345697 #### [facility] Laboratory [address] [place] [address] FSH and LHon 08-16-2019 Follitropin Qn 7.9 m[IU]/mL [facility] Comment on above: Result Comment: [facility] t Female: Follicular phase 3.5 - 12.5 Ovulation phase 4.7 - 21.5 Luteal phase 1.7 - 7.7 Postmenopausal 25.8 - 134.8 Performed at: [address] [id number] PhD Subhash Coronel Performed By: #### 1 0586866, 5984549, 8203601, 9499547, 5567330, 3861481, 09083562, 5554979 #### [facility] Laboratory [address] [place] [address] Lutropin Qn 9.8 m[IU]/mL [facility] Comment on above: Result Comment: [facility] t Female: Follicular phase 2.4 - 12.6 Ovulation phase 14.0 - 95.6 Luteal phase 1.0 - 11.4 Postmenopausal 7.7 - 58.5 Performed By: #### 1 5746197, 7624765, 5039352, 1377532, 8608187, 5260973, 56163277, 6058787 #### [facility] Laboratory [address] [place] [address] BhCG Quanton 08-15-2019 HCG.beta subunit Qn m[IU]/mL Normal 1-3 [facility] Comment on above: Result Comment: GEST ATIONAL AGE HCG RANGE (mIU/mL) NON- <1-3 0.2-1 WEEKS 5-50 1-2 WEEKS 50-500 2-3 WEEKS 100-5,000 3-4 WEEKS 500-10,000 4-5 WEEKS 1,000-50,000 5-6 WEEKS 10,000-100,000 6-8 WEEKS 15,000-200,000 8-12 WEEKS 10,000-100,000 Performed By: #### 1 7510171, 9220006, 0913191, 2592176, 5615533, 5421729, 82131795, 6584719 #### [facility] Laboratory [address] [place] [address] Progesteroneon 08-15-2019 Progesterone [Mass/Vol] 0.20 ng/mL [facility] Comment on above: Result Comment: REFE RENCE RANGE Males 0.14-2.06 ng/mL Non- Females Follicular 0.10-0.60 ng/mL Luteal 3.00-17.5 ng/mL Midluteal 3.30-18.6 ng/mL Post-Menopausal 0.10-0.40 ng/mL First Trimester 8.30-66.5 ng/mL Second Trimester 18.9-66.1 ng/mL Third Trimester 35.8-312.4 ng/mL Performed By: #### 1 6640381, 2987392, 2417476, 3696946, 4698367, 0251131, 09590199, 7278160 #### [facility] Laboratory [address] [place] [address] TSHon 08-15-2019 TSH Qn 1.05 mcIU/mL Normal 0.34-5.60 [facility] Comment on above: Performed By: #### 1 9815958, 7862699, 3306542, 6146517, 7559636, 7917273, 94114088, 9165537 #### [facility] Laboratory [address] [place] [address] Coding Summary.on 07-31-2019 Coding Summary. 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 However, the narrative phrase printed from the coding software may appear abbreviated, or result in slightly different terminology. Coded By: Teri Hill CphT Date Saved: 07/31/2019 10:30 am Normal [facility] ED Note-Physicianon 07-28-20 ED Note-Physician Basic Information Time Seen: Oswaldo Fischer PA-C 07/17/2019 21:52 Chief Complaint pt has complaints of abdominal pain nausea and vomiting since 2am, states lab work done at [facility] today liver enzymes were elevated history of [...] Bergeron discussed with Dr. Goel, trauma surgeon flying squad salesperson, and Dr. Alvarado, hospitalist flying squad salesperson, about patient, history, labs, and imaging findings consistent acute pancreatitis and common bile duct obstruction, patient be admitted to hospitalist services, and consult with Dr. Reddy, GI doctor on-call for possible MECHANICAL PRODUCT DESIGN ENGINEER in the morning. Dr. Alvarado admitted patient [...] was treated and evaluated by the Physician Managing Partner [employer]. The attending physician was Dr. Bergeron in [...] Auto: 6.4 % Low (07/17/19 22:12:00 EDT) [place] Auto: 5.5 % (07/17/19 22:12:00 EDT) Eos Auto: 0.6 % (07/17/19 22:12:00 EDT) Basophil Auto: 0.3 % (07/17/19 22:12:00 EDT) Neutro Absolute: 11.3 E9/L High (07/17/19 22:12:00 EDT) Lymph Absolute: 0.8 E9/L Low (07/17/19 22:12:00 EDT) [place] Absolute: 0.7 E9/L (07/17/19 22:12:00 EDT) Eos [...] Diagnostic Results No qualifying data available. Normal [facility] Comment on above: Result Comment: Elec tronically Signed By: Oswaldo Fischer PA-C\.br\Date and Time Signed: 07/18/19 01:07 EDT\.br\Electronically Co-Signed By: Mehran Bergeron MD\.br\Date and Time Co-Signed: 07/28/19 08:12 EDT Progress Note-Physicianon Progress Note-Physician Chief Complaint Follow up from OR History of Present Illness SUKHDEV SCHWARTZ is a 33 Years Female who presented to [facility] on 07/18/2019 with gallstone pancreatitis. 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 Still waiting for [facility] paperwork which she'll fax to us. [...] a 33 Years Female who presented to [facility] on 07/18/2019 with gallstone pancreatitis and is now POD#9 s/p lap aidee. She is recovering well. She can keep covering the periumbilical incision with Bandaid until it heals. I reviewed path report with her. She can follow-up with us PRN. We will fill out [facility] paperwork for her when we receive [...] REACTIVE LYMPH NODE WITH FOLLICULAR HYPERPLASIA. Normal [facility] Comment on above: Result Comment: Elec tronically Signed By: Garrett GUSTAFSON, Marina Fields\.br\Date and Time Signed: 07/28/19 09:13 EDT Coding Summary.on 07-24-2019 Coding Summary. CODING DATE: 019 FINAL [facility] STATUS: Home (Routine DC) PAYOR: Commercial Insurance Grouper: 419 MS-DRG Laparoscopic cholecystectomy w/o c.d.e. w/o CC/SENIOR CARE Low Trim 0 High Trim 999 263 [...] (BMI) 34.0-34.9, adult PROCEDURES DOCTOR NAME DATE [id number] Resection of Gallbladder, Amando GUSTAFSON, Javan Stevens 07/19/2019 Percutaneous Endoscopic Approach [id number] Extirpation of Matter from Abhinav REDDY MD 07/18/2019 Common Bile Duct, Via Natural or Artificial Opening Endoscopic [id number] Fluoroscopy of Bile Ducts using Abhinav REDDY MD 07/18/2019 Low Osmolar Contrast NOTE: The code number assigned matches the documented diagnosis and / or procedure in the patient's chart. However, the narrative phrase printed from the coding software may appear abbreviated, or result in slightly different terminology. Revised Coded By: Kat Del Rosario Revised Date Saved: 07/24/2019 07:27 am Normal [facility] Progress Note-Physicianon Progress Note-Physician Patient: SUKHDEV SCHWARTZ [...] All Problems Ovarian dysfunction / SNOMED CT 06378228 / Confirmed Hypothyroidism / SNOMED CT 50103816 / Confirmed Pancreatitis / SNOMED CT 085023158 / Confirmed Histories Past Medical History: No [...] Cardiovascular: Regular rhythm. Neurologic: Alert, Oriented. Plan [place] [employer]hes[employer] (ASA) physical status classification: Class II. Anesthetic Preoperative Plan Anesthesia: General. . Anesthetic plan, risks, benefits, and alternatives discussed with the patient and/or family. Communication: face to face with (patient 5 minutes, Patient educated on smoking cesstation). Normal [facility] Comment on above: Result Comment: Elec tronically [...] then closed the umbilical fascia with multiple [id number] 0 Vicryl sutures, then tied the stay [...] Gallbladder Javan Goel MD aek Dictated: 07/19/2019 #[id number] Typed: 07/20/2019 #[id number] cc: Javan Goel MD Normal [facility] Comment on above: Result Comment: Elec tronically Signed By: Amando GUSTAFSON, Javan Stevens\.br\Date and Time Signed: 07/20/19 11:04 EDT Auto Diffon 07-19-2019 Basophils/100 WBC (Bld) 0.2 % Normal 0.0-2.0 [facility] Comment on above: Order Comment: Order Added by Discern Expert. Performed By: #### 1 5680077, 0329657, 6390055, 8127452, 7643060, 6680873, 06200269, 9129520 #### [facility] Laboratory [address] [place] [address] Basophils/Leukocyte s Auto (Bld) [Pure # fraction] 0.0 E9/L Normal 0.0-0.2 [facility] Comment on above: Order Comment: Order Added by Discern Expert. Performed By: #### 1 9043681, 0569247, 0922121, 4245427, 9597506, 0434605, 11199196, 7579718 #### [facility] Laboratory [address] [place] [address] Eosinophils/100 WBC (Bld) 1.1 % Normal 0.0-8.0 [facility] Comment on above: Order Comment: Order Added by Discern Expert. Performed By: #### 1 0588419, 7487174, 8276760, 9343136, 5267670, 5753127, 89011670, 6681432 #### [facility] Laboratory [address] [place] [address] Eosinophils/Leukocy dariel Auto (Bld) [Pure # fraction] 0.1 E9/L Normal 0.0-0.5 [facility] Comment on above: Order Comment: Order Added by Discern Expert. Performed By: #### 1 4642675, 6464376, 9421938, 3727911, 1303771, 7377771, 96615722, 6199071 #### [facility] Laboratory [address] [place] [address] Lymphocytes/100 WBC (Bld) 11.9 % Low 14.0-50.0 [facility] Comment on above: Order Comment: Order Added by Discern Expert. Performed By: #### 1 1144424, 8785425, 7855519, 5452989, 7939237, 4752829, 84114383, 5756032 #### [facility] Laboratory [address] [place] [address] Lymphocytes/Leukocy dariel Auto (Bld) [Pure # fraction] 1.1 E9/L Normal 1.0-4.0 [facility] Comment on above: Order Comment: Order Added by Discern Expert. Performed By: #### 1 1009538, 6870671, 1944713, 7244029, 7978450, 1142520, 90593559, 9690936 #### [facility] Laboratory [address] [place] [address] Monocytes/100 WBC (Bld) 5.8 % Normal 4.0-14.0 [facility] Comment on above: Order Comment: Order Added by Discern Expert. Performed By: #### 1 6378363, 1540267, 2407430, 6396133, 5740429, 4773918, 68344382, 6261099 #### [facility] Laboratory [address] [place] [address] Monocytes/Leukocyte s Auto (Bld) [Pure # fraction] 0.5 E9/L Normal 0.2-1.0 [facility] Comment on above: Order Comment: Order Added by Discern Expert. Performed By: #### 1 6716858, 1832943, 1200794, 7297515, 3777921, 7288972, 02274221, 7405646 #### [facility] Laboratory [address] [place] [address] Neutrophils/100 WBC (Bld) 81.0 % High 36.0-75.0 [facility] Comment on above: Order Comment: Order Added by Discern Expert. Performed By: #### 1 8923117, 7774265, 8844702, 7022673, 6026278, 7582694, 03170267, 5073400 #### [facility] Laboratory [address] [place] [address] Neutrophils/Leukocy dariel Auto (Bld) [Pure # fraction] 7.3 E9/L Normal 2.0-7.5 [facility] Comment on above: Order Comment: Order Added by Discern Expert. Performed By: #### 1 6419611, 7819025, 7153462, 8243731, 2683482, 1513667, 31302761, 8647878 #### [facility] Laboratory [address] [place] [address] CBC w/ Auto Diffon Erythrocyte distribution width (RBC) [Ratio] 13.6 % Normal 10.9-14.2 [facility] Comment on above: Performed By: #### 1 4433997, 3640780, 7976065, 6507068, 0712671, 3319035, 83895875, 5229561 #### [facility] Laboratory [address] [place] [address] Hematocrit (Bld) [Volume fraction] 30.5 % Low 34.0-46.0 [facility] Comment on above: Performed By: #### 1 8177262, 8659381, 2709485, 8587782, 6912228, 8475992, 01184869, 7352071 #### [facility] Laboratory [address] [place] [address] Hemoglobin (Bld) [Mass/Vol] 10.8 g/dL Low 12.0-16.0 [facility] Comment on above: Performed By: #### 1 4565480, 6224231, 6678038, 7834472, 8989417, 3594730, 56103130, 0744807 #### [facility] Laboratory [address] [place] [address] MCH (RBC) [Entitic mass] 31.4 pg Normal 27.0-34.0 [facility] Comment on above: Performed By: #### 1 7966205, 3997184, 1414933, 5207286, 4396674, 0187214, 11084277, 4720328 #### [facility] Laboratory [address] [place], [place] [address] MCHC (RBC) [Mass/Vol] 35.2 g/dL Normal 33.3-35.7 [facility] Comment on above: Performed By: #### 1 7369136, 3566205, 8295209, 4331171, 1036100, 1066077, 64788232, 7971531 #### [facility] Laboratory [address] [place] [address] MCV (RBC) [Entitic vol] 89.0 fL Normal 80.0-100.0 [facility] Comment on above: Performed By: #### 1 6417945, 0897334, 5182081, 8487949, 1140578, 3252030, 80810409, 7771934 #### [facility] Laboratory [address] [place] [address] Platelet mean volume (Bld) [Entitic vol] 7.4 fL Normal 6.4-10.8 [facility] Comment on above: Performed By: #### 1 4790765, 1929416, 0073754, 2213730, 8282405, 8107717, 57609192, 7235349 #### [facility] Laboratory [address] [place] [address] Platelets (Bld) [#/Vol] 206.0 E9/L Normal 150.0-500.0 [facility] Comment on above: Performed By: #### 1 0268794, 5742364, 3913690, 2061531, 7289499, 5893126, 85244103, 3725805 #### [facility] Laboratory [address] [place], [place] [address] RBC (Bld) [#/Vol] 3.4 E12/L Low 4.3-5.9 [facility] Comment on above: Performed By: #### 1 5058710, 6757004, 4237102, 5772099, 0695955, 3170112, 91343995, 1367992 #### [facility] Laboratory [address] [place] [address] WBC corrected for nucl RBC Auto (Bld) [#/Vol] 9.0 E9/L Normal 4.0-11.0 [facility] Comment on above: Performed By: #### 1 7278544, 6696736, 1569188, 7829031, 7501993, 8762748, 05651849, 7279563 #### [facility] Laboratory [address] [place] [address] CMPon 07-19-2019 Albumin [Mass/Vol] 3.1 g/dL Low 3.3-5.0 [facility] Comment on above: Performed By: #### 1 9164691, 6057884, 7260813, 4872265, 5666206, 9291293, 73242848, 7645204 #### [facility] Laboratory [address] [place], [place] [address] Albumin [Mass/Vol] 1.3 g/dL Normal 1.1-2.2 [facility] Comment on above: Performed By: #### 1 1649830, 3063008, 3523002, 4345753, 7266239, 1159956, 89495319, 3839772 #### [facility] Laboratory [address] [place] [address] ALP [Catalytic activity/Vol] 64 Int._Unit/L Normal 21-98 [facility] Comment on above: Performed By: #### 1 8328390, 9454125, 7453974, 9470132, 2500545, 7040526, 72049349, 3249528 #### [facility] Laboratory [address] [place] [address]39 ALT No additional P-5'-P [Catalytic activity/Vol] 77 Int._Unit/L High 6-46 [facility] Comment on above: Performed By: #### 1 0918067, 8336647, 3136574, 4659770, 9227739, 4027900, 56871496, 5233916 #### [facility] Laboratory [address] [place] [address] AST [Catalytic activity/Vol] 32 Int._Unit/L Normal 5-43 [facility] Comment on above: Performed By: #### 1 0438566, 2316342, 0723630, 4008926, 9344304, 5077246, 50875859, 4927146 #### [facility] Laboratory [address] [place] [address] Bilirubin [Mass/Vol] 1.2 mg/dL High 0.0-1.1 [facility] Comment on above: Performed By: #### 1 4730975, 2414608, 8461411, 6573499, 2892158, 1691117, 35038557, 3739823 #### [facility] Laboratory [address] [place] [address] Creatinine [Mass/Vol] 0.6 mg/dL Normal 0.5-1.3 [facility] Comment on above: Performed By: #### 1 8116769, 6219541, 1635325, 8978834, 4917895, 4660500, 06791928, 9725557 #### [facility] Laboratory [address] [place] [address] Globulin (S) [Mass/Vol] 2.4 g/dL Normal 1.4-4.0 [facility] Comment on above: Performed By: #### 1 2301713, 8295785, 7892160, 8745473, 4098951, 9174219, 89804483, 8901034 #### [facility] Laboratory [address] [place] [address] Protein [Mass/Vol] 5.5 g/dL Low 6.0-7.8 [facility] Comment on above: Performed By: #### 1 2956779, 6891357, 8904847, 7174116, 5926647, 4023719, 13358604, 4535145 #### [facility] Laboratory [address] [place] [address] Urea nitrogen [Mass/Vol] 10 mg/dL Normal 5-21 [facility] Comment on above: Performed By: #### 1 9903918, 7585449, 9019222, 2862416, 4413005, 1866453, 34027544, 4402346 #### [facility] Laboratory [address] [place] [address] Urea nitrogen/Creatinine [Mass ratio] 17 No Units Normal 10-20 [facility] Comment on above: Performed By: #### 1 0827582, 7040817, 6898364, 1304698, 2490088, 4461203, 79460188, 0430384 #### [facility] Laboratory [address] [place] [address] Anion gap [Moles/Vol] 12 mmol/L Normal 6-16 [facility] Comment on above: Performed By: #### 1 5249468, 5405112, 5917550, 3877603, 4046952, 3601478, 77928522, 0891604 #### [facility] Laboratory [address] [place] [address] Calcium [Mass/Vol] 8.5 mg/dL Low 8.9-11.1 [facility] Comment on above: Performed By: #### 1 6120054, 1706640, 9764757, 6384476, 4201990, 2802483, 74736597, 3560822 #### [facility] Laboratory [address] [place] [address] Chloride [Moles/Vol] 109 mmol/L Normal 101-111 [facility] Comment on above: Performed By: #### 1 8516811, 1041302, 7655125, 6168269, 5654773, 9876973, 70731947, 8327690 #### [facility] Laboratory [address] [place] [address] CO2 [Moles/Vol] 22 mmol/L Normal 21-31 [facility] Comment on above: Performed By: #### 1 2564874, 7792242, 6690350, 9574585, 2134081, 5410660, 29446114, 8136579 #### [facility] Laboratory [address] [place] [address] Glucose [Mass/Vol] 99 mg/dL Normal 55-199 [facility] Comment on above: Result Comment: If t his glucose result represents a fasting glucose, interpretation should refer to the following reference range: 55-99 mg/dL Performed By: #### 1 4148115, 7801549, 3953756, 0479929, 3204349, 4143451, 70695393, 6331140 #### [facility] Laboratory [address] [place] [address] Potassium [Moles/Vol] 3.7 mmol/L Normal 3.5-5.3 [facility] Comment on above: Performed By: #### 1 7670945, 8918809, 9131087, 7803228, 7130885, 4418771, 81286893, 7752482 #### [facility] Laboratory [address] [place] [address] Sodium [Moles/Vol] 139 mmol/L Normal 135-145 [facility] Comment on above: Performed By: #### 1 6918601, 1001804, 9219410, 4790468, 8466719, 7449406, 00637688, 6446325 #### [facility] Laboratory [address] [place] [address] Discharge Note-Nursingon Discharge Note-Nursing Pt taken to potato picker exit with belongings by wheelchair and discharged home with family per personal vehicle Normal [facility] Inpatient Clinical Summaryon 07-19-2019 Inpatient Clinical Summary [address] [address] Clinical Summary Person Information: Name: SUKHDEV SCHWARTZ Age: 33 Years : 1985 12:00 AM Sex: Female PCP: LOLI MATIAS MD Marital Status: Phone: [phone] Race: White Ethnicity: Non- or Language: Filipino Visit Id: Visit Reason: Vomiting; Nausea; Abdominal pain; COMMON DUCT OBSTRUCTION, ACUTE PANCREATITIS Speciality: Acuity: Enc Type: Inpatient Med Service: Medical Arrival: 07/17/2019 8:55 PM Discharge: Dispo Type: Admitted as IP to this [facility] Address: [address] [place] [address] [address] [place] [id number] Provider Notes: Diagnosis: 1:Acute gallstone pancreatitis; 2:Abnormal [...] Follow up: With: Address: When: Javan Brennan [facility], [address], [address] [phone] Business (1) Within 7 to 10 days With: Address: When: [place] [address] Business (1) 08/07/2019 7:30 AM Type Location Start [facility] Follow Up [facility] 09/12/2019 2:00 PM 09/12/2019 2:15 PM Confirmed Patient Education Information: Cholecystostomy Normal [facility] Inpatient Patient Summaryon 07-19-2019 Inpatient Patient Summary [address] [address] Patient Discharge Instructions PERSON INFORMATION Name: SUKHDEV [...] Follow up: With: Address: When: Javan Goel [address] [place] [address], [address], [address] [phone] Business (1) Within 7 to 10 days With: Address: When: LOLI MATIAS [address] [place] [address] Business (1) 08/07/2019 7:30 AM In the event that this physician does not participate in your insurance network, please consult with your insurance company to find a nearby participating provider. Type Location Start [facility] 09/12/2019 2:00 PM 09/12/2019 2:15 PM Confirmed Comment: JAMES Bain BRITTANY F, have received the attached patient education materials/instructions and have verbalized understanding: Patient Signature __ Date Clinican/Nurse Signature Date HERE ARE THE MEDICATION CHANGES THAT OCCURRED DURING YOUR HOSPITAL STAY New Medications [facility] [address] [place] [id number], [phone] acetaminophen-hydrocodone (acetaminophen-hydrocodone 325 mg-5 mg oral tablet) [...] Mouth 2 times a day. Pharmacy Information: [facility] Anurag Comment: PATIENT EDUCATION INFORMATION Instructions: Cholecystostomy [...] Document Reviewed: 12/31/2009 ExitCare? Patient Information ?2014 [employer] This information is not intended to replace advice given to you by your health care provider. Make sure you discuss any questions you have with your health care provider. Medication Leaflets: Thank you for choosing [facility] Normal [facility] Interdisciplinary Note - Arcadio e Manageron 07-19-2019 INR Coag (Bld) [Relative time] Rounding with Dr. Benjamin, Felicia [facility], Rosie [facility], and Agustina GOODRICH with another patient . [...] will update family on dc plans. Normal [facility] Comment on above: Result Comment: Elec tronically Signed By: Andrzej GOODRICH, Felicia\.br\Date and Time Signed: 07/19/19 09:10 EDT Main OR Intraoperative Recor don 07-19-2019 Main OR Intraoperative Record IntraOp Document Type FT Summary Primary Physician: Javan Goel MD Finalized Date/Time: 07/19/19 14:22:14 Pt. Name: SUKHDEV SCHWARTZ D.O.B./Sex: 1985 Female Med Rec #: [id number] Physician: Aron ALVARADO DO Financial #: [id number] Pt. Type: I Room/Bed: 06 Admit/Disch: 07/17/19 [...] RN Role Performed Anesthesiologist Surgeon - Primary [facility] Managing Partner [employer] Time In 07/19/19 10:51:00 07/19/19 10:51:00 07/19/19 10:51:00 Time Out 07/19/19 13:18:00 07/19/19 12:56:00 07/19/19 13:18:00 Procedure CHOLECYSTECTOMY CHOLECYSTECTOMY CHOLECYSTECTOMY LAPAROSCOPIC W/ LAPAROSCOPIC W/ LAPAROSCOPIC W/ CHOLANGI(.) CHOLANGI(.) CHOLANGI(.) Comments DR GARVIN OUT FOR LUNCH FROM SUPERVISING.GERI [phone] WANDER GRAY-OUT TO LUNCH FROM [phone]. Last Modified By: Luis Fernando RN, Tosha Gould RN, Tosha Stewart RN 07/19/19 13:22:30 07/19/19 13:22:30 07/19/19 13:22:30 Entry 4 Entry 5 Entry 6 Case Attendee Armaan VILLAGOMEZ, Mónica Gould RN, Tosha Wright RNRavi Role Performed Scrub - Primary Fluorescent Solution Mixer - Primary Fluorescent Solution Mixer - Relief Time In 07/19/19 10:51:00 07/19/19 10:51:00 07/19/19 11:04:00 Time Out 07/19/19 13:18:00 07/19/19 13:18:00 07/19/19 11:40:00 Procedure CHOLECYSTECTOMY CHOLECYSTECTOMY CHOLECYSTECTOMY LAPAROSCOPIC W/ LAPAROSCOPIC W/ LAPAROSCOPIC W/ CHOLANGI(.) CHOLANGI(.) CHOLANGI(.) Comments OUT FOR LUNCH FROM OUT TO LUNCH FROM [phone] 2325-2363 Last Modified By: Luis Fernando GOODRICH, Tosha Gould RN, Tosha Stewart RN 07/19/19 13:22:30 07/19/19 13:22:30 07/19/19 13:22:30 Entry 7 Entry 8 Entry 9 Case Attendee Adalid VILLAGOMEZ, Bert Vázquez VEHICLE MODIFICATION TECHNICIAN/SA, Tosha Wolf CST Performed VEHICLE MODIFICATION TECHNICIAN/SA Scrub - Relief Scrub - Other Time [...] tissue Entry 1 Skin Integrity Bruised, Intact, [place], Skin Abnormality Yes Warm, and Dry Abnormality [...] Type TUBE NASOGASTIC SUMP Location MOUTH 18FR [[id number]][F] Quantity 1 Inserted By Geri Guerrero Present [...] Present Upon Arrival No Inserted LF 16FR [[id number]][F] Insertion Date/Time 07/19/19 11:09:00 Urine Residual 350 [...] BLANKET MISTRAL AIR Quantity 1 Aid TORSO [[id number]][F] Fluid/Gillespie Unit Mistral warming system Setting HIGH/43C Body Site Upper anterior torso Last Modified By: Tosha Gould RN 07/19/19 10:34:51 Case Comments Finalized By: Juanita Stein CST Document Signatures Signed By: Tosha Gould RN 07/19/19 13:23 Juanita Stein CST 07/19/19 14:22 Normal [facility] Main OR PACU I Recordon Main OR PACU I Record PACU Phase I Document Type FT Summary Primary Physician: Javan Goel MD Finalized Date/Time: 07/19/19 13:51:28 Pt. Name: SUKHDEV SCHWARTZ/Sex: 1985 Female Med Rec #: [id number] Physician: Aron ALVARADO DO Financial #: [id number] Pt. Type: I Room/Bed: [place] [address] Admit/Disch: 07/17/19 20:55:00 - Institution: Case Times [...] By: Mariama Cadena RN 07/19/19 13:51 Normal [facility] Main OR Preoperative Recordo n 07-19-2019 Main OR Preoperative Record PreOp Document Type FT Summary Primary Physician: Javan Goel MD Finalized Date/Time: 07/19/19 11:50:30 Pt. Name: SUKHDEV SCHWARTZ Antoni HoltB./Sex: 1985 Female Med Rec #: [id number] Physician: Aron ALVARADO DO Financial #: [id number] Pt. Type: I Room/Bed: [facility] Admit/Disch: 07/17/19 20:55:00 - Institution: Case [...] By: Tosha Gould RN 07/19/19 11:50 Normal [facility] Progress Note-Physicianon Progress Note-Physician ACUTE CARE SURGERY [...] Auto: 11.9 % Low (07/19/19 05:39:00 EDT) Independence Auto: 5.8 % (07/19/19 05:39:00 EDT) Eos Auto: 1.1 % (07/19/19 05:39:00 EDT) Basophil Auto: 0.2 % (07/19/19 05:39:00 EDT) Neutro Absolute: 7.3 E9/L (07/19/19 05:39:00 EDT) Lymph Absolute: 1.1 E9/L (07/19/19 05:39:00 EDT) Independence Absolute: 0.5 E9/L (07/19/19 05:39:00 EDT) Eos [...] Goel MD Trauma/Critical Care/Acute Care Surgery Attending [facility] Comment on above: Result Comment: Elec tronically Signed By: Amando GUSTAFSON, Javan J\.br\Date and Time Signed: 07/19/19 10:32 EDT eGFRon 07-19-2019 GFR/1.73 sq M predicted among blacks MDRD (S/P/Bld) [Vol rate/Area] mL/min/{1.73_m2} Normal >=59 [facility] Comment on above: Order Comment: Order added by Discern Expert. Result Comment: eGFR is race adjusted. AA=. Performed By: #### 1 6559716, 9917125, 3198414, 8259263, 7738498, 0119406, 79459506, 6847368 #### [facility] Laboratory [address] [place] [address] GFR/1.73 sq M predicted among non-blacks MDRD (S/P/Bld) [Vol rate/Area] mL/min/{1.73_m2} Normal >=59 [facility] Comment on above: Order Comment: Order added by Discern Expert. Result Comment: Pattern Drum Maker ivan kidney disease could be indicated at eGFR's of less than 60 mL/min/1.73m2. Kidney failure is indicated at less than 15 mL/min/1.73m2. Performed By: #### 1 5995485, 8605503, 5059033, 8020578, 0525771, 0782129, 26110992, 5208761 #### [facility] Laboratory [address] [place] [address] Auto Diffon 07-18-2019 Basophils/100 WBC (Bld) 0.4 % Normal 0.0-2.0 [facility] Comment on above: Order Comment: Order Added by Discern Expert. Performed By: #### 1 7783292, 6754511, 4257723, 5830397, 7068560, 4873463, 47978654, 6030745 #### [facility] Laboratory [address] [place] [address] Basophils/Leukocyte s Auto (Bld) [Pure # fraction] 0.0 E9/L Normal 0.0-0.2 [facility] Comment on above: Order Comment: Order Added by Discern Expert. Performed By: #### 1 2619599, 6369712, 0295253, 0952794, 9544757, 1353580, 96797959, 2601910 #### [facility] Laboratory [address] [place] [address] Eosinophils/100 WBC (Bld) 0.4 % Normal 0.0-8.0 [facility] Comment on above: Order Comment: Order Added by Discern Expert. Performed By: #### 1 2541484, 3983070, 2956138, 9385757, 1482674, 8142149, 91684153, 8553625 #### [facility] Laboratory [address] [place] [address] Eosinophils/Leukocy dariel Auto (Bld) [Pure # fraction] 0.0 E9/L Normal 0.0-0.5 [facility] Comment on above: Order Comment: Order Added by Discern Expert. Performed By: #### 1 1324993, 4455172, 0050000, 4392423, 5228627, 6386947, 29551366, 8041119 #### [facility] Laboratory [address] [place] [address] Lymphocytes/100 WBC (Bld) 19.3 % Normal 14.0-50.0 [facility] Comment on above: Order Comment: Order Added by Discern Expert. Performed By: #### 1 2494501, 6391285, 3473823, 4360835, 3659594, 6213419, 47581552, 4331455 #### [facility] [facility] [address] [place] [address] 74792 Lymphocytes/Leukocy dariel Auto (Bld) [Pure # fraction] 1.5 E9/L Normal 1.0-4.0 [facility] Comment on above: Order Comment: Order Added by Discern Expert. Performed By: #### 1 2305566, 3796330, 3488385, 5841017, 4143627, 2798918, 01598118, 3846167 #### [facility] [address] [place] [address] 83646 Monocytes/100 WBC (Bld) 6.4 % Normal 4.0-14.0 [facility] Comment on above: Order Comment: Order Added by Discern Expert. Performed By: #### 1 9909289, 4213603, 2609704, 5866571, 8219405, 1426247, 65861545, 2990621 #### [facility] [address] [place] [address] 91536 Monocytes/Leukocyte s Auto (Bld) [Pure # fraction] 0.5 E9/L Normal 0.2-1.0 [facility] Comment on above: Order Comment: Order Added by Discern Expert. Performed By: #### 1 1490739, 5881938, 3332963, 2990517, 3792409, 6313105, 34621538, 6252391 #### [facility] [address] [place] [address] 05435 Neutrophils/100 WBC (Bld) 73.5 % Normal 36.0-75.0 [facility] Comment on above: Order Comment: Order Added by Discern Expert. Performed By: #### 1 8889243, 9071334, 0770212, 7732179, 8399704, 5219500, 89147011, 1179541 #### [facility] [address] [place] [address] 56497 Neutrophils/Leukocy dariel Auto (Bld) [Pure # fraction] 5.7 E9/L Normal 2.0-7.5 [facility] Comment on above: Order Comment: Order Added by Discern Expert. Performed By: #### 1 7396526, 8559752, 9310040, 7508171, 4447841, 9873994, 55115033, 0664902 #### [facility] [address] [place] [address] 44027 Basophils/100 WBC (Bld) 0.3 % Normal 0.0-2.0 [facility] Comment on above: Order Comment: Order Added by Discern Expert. Performed By: #### 1 1178834, 9029027, 9271909, 3635336, 9091241, 5104672, 03921204, 7365138 #### [facility] [address] [place] [address] 15896 Basophils/Leukocyte s Auto (Bld) [Pure # fraction] 0.0 E9/L Normal 0.0-0.2 [facility] Comment on above: Order Comment: Order Added by Discern Expert. Performed By: #### 1 1029769, 2117397, 3554880, 3044535, 1809378, 8672913, 83350637, 3611797 #### [facility] [address] [place] [address] 49951 Eosinophils/100 WBC (Bld) 0.6 % Normal 0.0-8.0 [facility] Comment on above: Order Comment: Order Added by Discern Expert. Performed By: #### 1 5857210, 1344116, 1624886, 8442051, 9405485, 2491024, 18258604, 9514742 #### [facility] [address] [place] [address] Eosinophils/Leukocy dariel Auto (Bld) [Pure # fraction] 0.1 E9/L Normal 0.0-0.5 [facility] Comment on above: Order Comment: Order Added by Discern Expert. Performed By: #### 1 0957993, 8287975, 4091953, 5240109, 3331037, 6081035, 57361010, 7792728 #### [facility] [address] [place] [address] Lymphocytes/100 WBC (Bld) 6.4 % Low 14.0-50.0 [facility] Comment on above: Order Comment: Order Added by Discern Expert. Performed By: #### 1 0462574, 5845138, 6355812, 6593632, 8705571, 7460708, 13115135, 8217020 #### [facility] [address] [place] [address] 75673 Lymphocytes/Leukocy dariel Auto (Bld) [Pure # fraction] 0.8 E9/L Low 1.0-4.0 [facility] Comment on above: Order Comment: Order Added by Discern Expert. Performed By: #### 1 0998906, 0394592, 7112954, 6400758, 9319476, 3803528, 27843644, 5565585 #### [facility] [address] [place] [address] 42101 Monocytes/100 WBC (Bld) 5.5 % Normal 4.0-14.0 [facility] Comment on above: Order Comment: Order Added by Discern Expert. Performed By: #### 1 9144051, 4588454, 3120795, 0218792, 8075699, 3165202, 39180755, 6029530 #### [facility] [address] [place] [address] Monocytes/Leukocyte s Auto (Bld) [Pure # fraction] 0.7 E9/L Normal 0.2-1.0 [facility] Comment on above: Order Comment: Order Added by Discern Expert. Performed By: #### 1 2176964, 1189145, 8956347, 6743610, 9323695, 6386455, 94672284, 2335927 #### [facility] [address] [place] [address] Neutrophils/100 WBC (Bld) 87.2 % High 36.0-75.0 [facility] Comment on above: Order Comment: Order Added by Discern Expert. Performed By: #### 1 7104406, 1688436, 9047583, 4644565, 4418272, 9550702, 16308755, 4551852 #### [facility] [address] [place] [address] Neutrophils/Leukocy dariel Auto (Bld) [Pure # fraction] 11.3 E9/L High 2.0-7.5 [facility] Comment on above: Order Comment: Order Added by Discern Expert. Performed By: #### 1 6230781, 9672179, 0082107, 0890184, 5948518, 8754681, 09862372, 3199170 #### [facility] [address] [place] [address] BMPon 07-18-2019 Urea nitrogen/Creatinine [Mass ratio] 22 No Units High 10-20 [facility] Comment on above: Performed By: #### 1 0765299, 5510139, 7094310, 1949057, 1166430, 4994424, 83832931, 6861349 #### [facility] [address] [place] [address] Creatinine [Mass/Vol] 0.5 mg/dL Normal 0.5-1.3 [facility] Comment on above: Performed By: #### 1 7710045, 3060903, 1906706, 4186577, 3030775, 8236201, 95510091, 0147776 #### [facility] [address] [place] [address] Urea nitrogen [Mass/Vol] 11 mg/dL Normal 5-21 [facility] Comment on above: Performed By: #### 1 9047202, 2992210, 7245019, 8145972, 3600877, 9851565, 58679698, 4223545 #### [facility] [address] [place] [address] Anion gap [Moles/Vol] 12 mmol/L Normal 6-16 [facility] Comment on above: Performed By: #### 1 5304272, 8555737, 2565495, 0904820, 7326861, 3770337, 70980631, 6905448 #### [facility] [address] [place] [address] Calcium [Mass/Vol] 8.8 mg/dL Low 8.9-11.1 [facility] Comment on above: Performed By: #### 1 1186272, 1587869, 5015648, 4191576, 3461384, 2080102, 27645699, 6275837 #### [facility] [address] [place] [address] Chloride [Moles/Vol] 109 mmol/L Normal 101-111 [facility] Comment on above: Performed By: #### 1 6510419, 0501526, 6640400, 4095942, 9745590, 3305306, 19538085, 5191678 #### [facility] [address] [place] [address] CO2 [Moles/Vol] 24 mmol/L Normal 21-31 [facility] Comment on above: Performed By: #### 1 6677993, 0487010, 5750271, 8935265, 4405165, 7096566, 28032085, 8076871 #### [facility] [address] [place] [address] Glucose [Mass/Vol] 104 mg/dL Normal 55-199 [facility] Comment on above: Result Comment: If t his glucose result represents a fasting glucose, interpretation should refer to the following reference range: 55-99 mg/dL Performed By: #### 1 0965635, 5066656, 2520008, 3490745, 5642750, 3241889, 08682473, 1703272 #### [facility] [address] [place] [address] Potassium [Moles/Vol] 3.8 mmol/L Normal 3.5-5.3 [facility] Comment on above: Performed By: #### 1 1250546, 1518963, 5112245, 8504041, 9424646, 6883271, 87440984, 3946121 #### [facility] [address] [place] [address] Sodium [Moles/Vol] 141 mmol/L Normal 135-145 [facility] Comment on above: Performed By: #### 1 9442485, 2136161, 8171457, 5136915, 5123767, 1324355, 97373470, 3893858 #### [facility] [address] [place] [address] Creatinine [Mass/Vol] 0.5 mg/dL Normal 0.5-1.3 [facility] Comment on above: Performed By: #### 1 5542205, 3653901, 6335135, 5634194, 4763693, 7682196, 26014326, 8810769 #### [facility] [address] [place] [address] Urea nitrogen [Mass/Vol] 13 mg/dL Normal 5-21 [facility] Comment on above: Performed By: #### 1 5759084, 5657489, 9883896, 9374227, 7811419, 3768143, 86277815, 1716143 #### [facility] [address] [place] [address] Urea nitrogen/Creatinine [Mass ratio] 26 No Units High 10-20 [facility] Comment on above: Performed By: #### 1 8403072, 2568886, 2892106, 5097753, 8461543, 9059748, 69255388, 5309774 #### [facility] [address] [place] [address] Anion gap [Moles/Vol] 13 mmol/L Normal 6-16 [facility] Comment on above: Performed By: #### 1 9111257, 6315240, 0354900, 9953609, 9416032, 0923267, 07903233, 8837593 #### [facility] [address] [place] [address] Calcium [Mass/Vol] 9.3 mg/dL Normal 8.9-11.1 [facility] Comment on above: Performed By: #### 1 5237924, 8038777, 7631714, 3591137, 9149162, 0498327, 25433760, 1364335 #### [facility] [address] [place] [address] Chloride [Moles/Vol] 105 mmol/L Normal 101-111 [facility] Comment on above: Performed By: #### 1 5952652, 9493501, 3204245, 9501087, 7582715, 3994525, 81987921, 6879347 #### [facility] [address] [place] [address] CO2 [Moles/Vol] 26 mmol/L Normal 21-31 [facility] Comment on above: Performed By: #### 1 7818173, 7899362, 7811916, 8855525, 2514995, 9277780, 00377901, 0273013 #### [facility] [address] [place] [address] Glucose [Mass/Vol] 107 mg/dL Normal 55-199 [facility] Comment on above: Result Comment: If t his glucose result represents a fasting glucose, interpretation should refer to the following reference range: 55-99 mg/dL Performed By: #### 1 8077268, 3869981, 5265639, 3852815, 1059061, 5993021, 86852351, 0265121 #### [facility] [address] [place] [address] Potassium [Moles/Vol] 3.7 mmol/L Normal 3.5-5.3 [facility] Comment on above: Performed By: #### 1 2239622, 3659170, 1659453, 2647350, 3692726, 7346306, 39779278, 4115047 #### [facility] [address] [place] [address] Sodium [Moles/Vol] 140 mmol/L Normal 135-145 [facility] Comment on above: Performed By: #### 1 7527538, 2389666, 7613074, 2153956, 6687705, 2164207, 13659333, 3187748 #### [facility] [address] [place] [address] 27025 CBC w/ Auto Diffon 9 Erythrocyte distribution width (RBC) [Ratio] 13.7 % Normal 10.9-14.2 [facility] Comment on above: Performed By: #### 1 1494672, 2843886, 8945199, 9865766, 3662905, 7888492, 47184172, 2586804 #### [facility] [address] [place] [address] 03049 Hematocrit (Bld) [Volume fraction] 34.8 % Normal 34.0-46.0 [facility] Comment on above: Performed By: #### 1 6433016, 8389796, 8587076, 1726962, 3957293, 4019828, 77398749, 1089860 #### [facility] [address] [place] [address] 81445 Hemoglobin (Bld) [Mass/Vol] 12.0 g/dL Normal 12.0-16.0 [facility] Comment on above: Performed By: #### 1 7189641, 0275892, 0097424, 3612458, 6896790, 3373747, 39368196, 7398035 #### [facility] [address] [place] [address] 27370 MCH (RBC) [Entitic mass] 30.5 pg Normal 27.0-34.0 [facility] Comment on above: Performed By: #### 1 7816909, 6235127, 1401605, 3655659, 5047148, 7906999, 32899998, 7055408 #### [facility] [address] [place] [address] 13093 MCHC (RBC) [Mass/Vol] 34.5 g/dL Normal 33.3-35.7 [facility] Comment on above: Performed By: #### 1 9028729, 7378351, 0888291, 9407612, 2159666, 7610968, 46966463, 4584225 #### [facility] [address] [place] [address] MCV (RBC) [Entitic vol] 88.6 fL Normal 80.0-100.0 [facility] Comment on above: Performed By: #### 1 4745947, 9351369, 2522433, 3645506, 9158931, 3272720, 45012604, 6378843 #### [facility] [address] [place] [address] Platelet mean volume (Bld) [Entitic vol] 7.9 fL Normal 6.4-10.8 [facility] Comment on above: Performed By: #### 1 1733681, 8513379, 1840842, 3780393, 0972737, 8069349, 44247120, 4798327 #### [facility] [address] [place], [place] [address] Platelets (Bld) [#/Vol] 256.0 E9/L Normal 150.0-500.0 [facility] Comment on above: Performed By: #### 1 8823530, 9226693, 2347880, 8398004, 5716646, 6870373, 69069999, 3698229 #### [facility] [address] [place] [address] 67568 RBC (Bld) [#/Vol] 3.9 E12/L Low 4.3-5.9 [facility] Comment on above: Performed By: #### 1 7876414, 4309958, 7667481, 7833633, 5225123, 4293449, 29904580, 9429133 #### [facility] [address] [place] [address] WBC corrected for nucl RBC Auto (Bld) [#/Vol] 7.8 E9/L Normal 4.0-11.0 [facility] Comment on above: Performed By: #### 1 5728970, 5730271, 9107141, 8295601, 9619167, 1975007, 24072844, 5717536 #### [facility] [address] [place] [address] Erythrocyte distribution width (RBC) [Ratio] 13.2 % Normal 10.9-14.2 [facility] Comment on above: Performed By: #### 1 4435224, 2290169, 3036733, 8574495, 5978280, 5401055, 16978006, 4043492 #### [facility] [address] [place] [address] Hematocrit (Bld) [Volume fraction] 38.9 % Normal 34.0-46.0 [facility] Comment on above: Performed By: #### 1 1395741, 2329013, 9127611, 1902682, 5378094, 2200187, 80786518, 7342955 #### [facility] [address] [place] [address] Hemoglobin (Bld) [Mass/Vol] 13.2 g/dL Normal 12.0-16.0 [facility] Comment on above: Performed By: #### 1 9742010, 3382983, 8550303, 4096810, 4546267, 9524454, 26147657, 8614571 #### [facility] [address] [place] [address] 61775 MCH (RBC) [Entitic mass] 30.0 pg Normal 27.0-34.0 [facility] Comment on above: Performed By: #### 1 8091442, 3862759, 6089962, 4741995, 2682251, 4394247, 81287723, 1454507 #### [facility] [address] [place] [address] MCHC (RBC) [Mass/Vol] 34.0 g/dL Normal 33.3-35.7 [facility] Comment on above: Performed By: #### 1 9461107, 9023199, 8292283, 0723336, 3955463, 9439894, 20694198, 5929532 #### [facility] [address] [place] [address] 48816 MCV (RBC) [Entitic vol] 88.1 fL Normal 80.0-100.0 [facility] Comment on above: Performed By: #### 1 7665810, 6818901, 0004853, 8435130, 1290337, 5412158, 57037047, 6096798 #### [facility] [address] [place] [address] 95292 Platelet mean volume (Bld) [Entitic vol] 8.3 fL Normal 6.4-10.8 [facility] Comment on above: Performed By: #### 1 6847167, 2088488, 9863776, 0416741, 4986494, 5339078, 01134467, 2787515 #### [facility] [address] [place] [address] 27870 Platelets (Bld) [#/Vol] 253.0 E9/L Normal 150.0-500.0 [facility] Comment on above: Result Comment: Slid e reviewed by CHARO. Performed By: #### 1 6405991, 5855575, 4914287, 3227551, 5615241, 4938394, 90985818, 5887433 #### [facility] [address] [place] [address] 63059 RBC (Bld) [#/Vol] 4.4 E12/L Normal 4.3-5.9 [facility] Comment on above: Performed By: #### 1 8819946, 6473214, 6483847, 2690712, 2493685, 0462269, 25051942, 9258626 #### [facility] [address] [place] [address] 39338 WBC corrected for nucl RBC Auto (Bld) [#/Vol] 13.0 E9/L High 4.0-11.0 [facility] Comment on above: Performed By: #### 1 7118692, 9405147, 1851565, 4237499, 4589901, 3926127, 34040044, 8460038 #### [facility] [address] [place] [address] Consultation Noteon 07-18-20 Consultation Note ACUTE CARE [...] Lymph Auto: 19.3 % (07/18/19 05:33:00 EDT) Independence Auto: 6.4 % (07/18/19 05:33:00 EDT) Eos Auto: 0.4 % (07/18/19 05:33:00 EDT) Basophil Auto: 0.4 % (07/18/19 05:33:00 EDT) Neutro Absolute: 5.7 E9/L (07/18/19 05:33:00 EDT) Lymph Absolute: 1.5 E9/L (07/18/19 05:33:00 EDT) Independence Absolute: 0.5 E9/L (07/18/19 05:33:00 EDT) Eos [...] MD, FACS Trauma/Critical Care/Acute Care Surgery Attending [facility] Comment on above: Result Comment: Elec [...] since 2am, states lab work done at [facility] today liver enzymes were elevated history of pancreatitis History of Present Illness 33 years old white female admitted to [facility] with sudden onset of abdominal [...] list: All Problems Pancreatitis / SNOMED CT 516567482 / Confirmed Hypothyroidism / SNOMED CT 13040649 / Confirmed Ovarian dysfunction / SNOMED CT 55882208 / Confirmed Histories Past Medical History: No [...] Auto 73.5 % Lymph Auto 19.3 % Independence Auto 6.4 % Eos Auto 0.4 % Basophil Auto 0.4 % Neutro Absolute 5.7 E9/L Lymph Absolute 1.5 E9/L Independence Absolute 0.5 E9/L Eos Absolute 0.0 E9/L [...] % HI Lymph Auto 6.4 % LOW Independence Auto 5.5 % Eos Auto 0.6 % Basophil Auto 0.3 % Neutro Absolute 11.3 E9/L HI Lymph Absolute 0.8 E9/L LOW Independence Absolute 0.7 E9/L Eos Absolute 0.1 E9/L [...] related complications, she agreed to proceed Normal [facility] Comment on above: Result Comment: Elec tronically Signed By: CAPRICE GUSTAFSON, Abhinav\.br\Date and Time Signed: 07/18/19 10:01 EDT ED Clinical Summaryon 2018 ED Clinical Summary (Inserted Image. Sachi ble to display) [place] [id number] ED Clinical Summary Person Information Name: SUKHDEV SCHWARTZ [place] Age: 33 Years : 1985 12:00 AM Sex: Female Language: Filipino PCP: LOLI MATIAS MD Marital Status: Phone: [phone] Visit Id: Visit Reason: Vomiting; Nausea; Abdominal pain; ABD PAIN, NAUSEA Speciality: Acuity: 3 Enc Type: Emergency Med Service: Emergency Arrival: 07/17/2019 8:55 PM Discharge: LOS: 000 03:53 Checkin: 07/17/2019 8:55 PM Checkout: 07/18/2019 12:48 AM Dispo Type: Admitted as IP to this [facility] EVENTS: Event Name Event Status Request Date/Time [...] 07/18/2019 12:48 AM 07/18/2019 12:48 AM ADDRESS: [facility] [address] [place] [id number] [facility] DOC NOTES: MEDICAL INFORMATION: Prescriptions Given: PATIENT EDUCATION INFORMATION: Instructions: Follow up: DIAGNOSIS: Normal [facility] ED Patient Education Noteon 07-18-2019 ED Patient Education Note Normal [facility] ED Patient Summaryon ED Patient Summary (Inserted Image. Sachi ble to display) [address] [address] Patient Discharge Instructions Person Information Name: SUKHDEV SCHWARTZ Age: 33 Years Arrival Date: 07/17/2019 8:55 PM Discharge Diagnosis: Primary Care Physician: LOLI MATIAS MD Provider Information Primary Provider: Rubio MD, Mehran [employer]ostat[employer] Manager:Oswaldo Fischer PA-C The exam and treatment you received in the Emergency Department were for an urgent problem and are not intended as complete care. It is important that you follow up with a doctor, nurse practitioner, or physician?s vet assistant for ongoing care. If your symptoms [...] opioids can be used to help relieve xoznfpbj-vo-ylonko pain and are often prescribed following a [...] be struggling with addiction, tell your health manager progressive care and ask for guidance or call [facility]?S National Helpline at 0-348-153-EZCA. v Source: [place] Department of Health and Human Services/Center for Disease Control & Prevention [facility] Medications Given: Medication Dose Route Sodium Chloride 0.9% intravenous solution 1000.00 mL Initial Volume 1000.00 mL/hr IV Left Antecubital Aston morphine 4.00 mg IV Push Left Anterior Chest ondansetron 4.00 mg IV Push Left Antecubital Ana nalbuphine 5.00 mg IV Push Left Antecubital Aston Medication Information: Medications to Continue with No [...] Drug Jimbo [place] Thank you for choosing [facility] Patient Education Materials: JAMES Bain BRITTANY F , have received the following patient education materials/instructions and have verbalized understanding: Patient Education Materials: Follow-up Instructions: Prescriptions: Patient Signature __ Date Clinician/Nurse Signature Date 07/18/19 00:48:50 Normal [facility] Hep Func Panelon 07-18-2019 Albumin [Mass/Vol] 1.2 g/dL Normal 1.1-2.2 [facility] Comment on above: Performed By: #### 1 7501027, 1511233, 5134322, 3929591, 0376428, 9576100, 93813902, 2631139 #### [facility] [address] [place] [address] ALP [Catalytic activity/Vol] 61 Int._Unit/L Normal 21-98 [facility] Comment on above: Performed By: #### 1 9834198, 8503631, 1034602, 5979422, 9425929, 2989994, 47670812, 7385104 #### [facility] [address] [place] [address] 19107 ALT No additional P-5'-P [Catalytic activity/Vol] 119 Int._Unit/L High 6-46 [facility] Comment on above: Performed By: #### 1 7607330, 0751175, 6236234, 1156193, 4933520, 9500654, 24960790, 2205983 #### [facility] [address] [place] [address] 94597 AST [Catalytic activity/Vol] 106 Int._Unit/L High 5-43 [facility] Comment on above: Performed By: #### 1 5075723, 3752965, 5523211, 8881132, 3737823, 5683097, 69216878, 5455175 #### [facility] [address] [place] [address] Bilirubin.direct [Mass/Vol] 1.6 mg/dL High 0.1-0.9 [facility] Comment on above: Performed By: #### 1 3190414, 1145221, 0005464, 3757821, 3228144, 0168618, 06047788, 5084237 #### [facility] [address] [place] [address] 32094 Globulin (S) [Mass/Vol] 2.7 g/dL Normal 1.4-4.0 [facility] Comment on above: Performed By: #### 1 7854009, 6777876, 3292016, 2361523, 6706960, 2707266, 36749814, 4313297 #### [facility] [address] [place] [id number] Albumin [Mass/Vol] 3.3 g/dL Normal 3.3-5.0 [facility] Comment on above: Performed By: #### 1 [id number], 6428549, 5255648, 3803367, 9062291, 5757183, 39776819, 3009323 #### [facility] Laboratory [address] [place] [address] Bilirubin [Mass/Vol] 3.6 mg/dL High 0.0-1.1 [facility] Comment on above: Performed By: #### 1 1192269, 4171398, 9101027, 9751550, 6661075, 4647956, 58406364, 9865910 #### [facility] Laboratory [address] [place] [address] Bilirubin.direct [Mass/Vol] 2.0 mg/dL High 0.1-0.4 [facility] Comment on above: Performed By: #### 1 1410163, 5922163, 9508895, 4646030, 6744005, 1529003, 04207852, 8349597 #### [facility] Laboratory [address] [place] [address] Protein [Mass/Vol] 6.0 g/dL Normal 6.0-7.8 [facility] Comment on above: Performed By: #### 1 2745427, 7695927, 2354958, 3842218, 1142854, 3787920, 31905022, 6800786 #### [facility] Laboratory [address] [place] [address] Albumin [Mass/Vol] 3.8 g/dL Normal 3.3-5.0 [facility] Comment on above: Performed By: #### 1 7678913, 9022680, 4945500, 9511101, 3558487, 2087600, 88086973, 5634726 #### [facility] Laboratory [address] [place] [address] Albumin [Mass/Vol] 1.4 g/dL Normal 1.1-2.2 [facility] Comment on above: Performed By: #### 1 2127548, 9144035, 5335551, 6599360, 1151329, 7554286, 34567698, 1605155 #### [facility] Laboratory [address] [place] [address] ALP [Catalytic activity/Vol] 69 Int._Unit/L Normal 21-98 [facility] Comment on above: Performed By: #### 1 4147912, 0402565, 3160195, 6970980, 4612172, 1082174, 50619423, 5799811 #### [facility] Laboratory [address] [place] [address] ALT No additional P-5'-P [Catalytic activity/Vol] 144 Int._Unit/L High 6-46 [facility] Comment on above: Performed By: #### 1 0737432, 3551863, 8915565, 1998001, 3576772, 7310192, 70571621, 6474528 #### [facility] Laboratory [address] [place] [address] AST [Catalytic activity/Vol] 179 Int._Unit/L High 5-43 [facility] Comment on above: Performed By: #### 1 4634074, 5563355, 3183685, 3447233, 3178597, 0926345, 10545074, 3575703 #### [facility] Laboratory [address] [place] [address] Bilirubin [Mass/Vol] 3.6 mg/dL High 0.0-1.1 [facility] Comment on above: Performed By: #### 1 5595143, 1289456, 1893695, 7095126, 6189484, 2654282, 49238362, 8684995 #### [facility] Laboratory [address] [place] [address] Bilirubin.direct [Mass/Vol] 1.5 mg/dL High 0.1-0.9 [facility] Comment on above: Performed By: #### 1 0430863, 8530270, 4015318, 9736703, 3297942, 9488162, 13900381, 8328675 #### [facility] Laboratory [address] [place] [address] Bilirubin.direct [Mass/Vol] 2.1 mg/dL High 0.1-0.4 [facility] Comment on above: Performed By: #### 1 7856392, 8027753, 2925407, 9922095, 7001807, 8024394, 22017329, 8240221 #### [facility] Laboratory [address] [place] [address] Globulin (S) [Mass/Vol] 2.7 g/dL Normal 1.4-4.0 [facility] Comment on above: Performed By: #### 1 7542918, 5315983, 3062061, 6960085, 0563226, 5073547, 28389698, 8327756 #### [facility] Laboratory [address] [place] [address] Protein [Mass/Vol] 6.5 g/dL Normal 6.0-7.8 [facility] Comment on above: Performed By: #### 1 5541776, 4083730, 3270049, 6075033, 7065509, 3000316, 46907862, 0017273 #### [facility] Laboratory [address] [place] [address] History and Physicalon 07-18 History and Physical [...] states she had a hospitalization while in [place] last month with the same was considered [...] Auto: 6.4 % Low (07/17/19 22:12:00 EDT) [place] Auto: 5.5 % (07/17/19 22:12:00 EDT) Eos Auto: 0.6 % (07/17/19 22:12:00 EDT) Basophil Auto: 0.3 % (07/17/19 22:12:00 EDT) Neutro Absolute: 11.3 E9/L High (07/17/19 22:12:00 EDT) Lymph Absolute: 0.8 E9/L Low (07/17/19 22:12:00 EDT) [place] Absolute: 0.7 E9/L (07/17/19 22:12:00 EDT) Eos [...] 2: Mother. Thyroid cancer: Mother and Sister. [facility] Comment on above: Result Comment: Elec tronically Signed By: Aron ALVARADO DO\.br\Date and Time Signed: 07/18/19 02:27 EDT Interdisciplinary Note - Arcadio e Manageron 07-18-2019 INR Coag (Bld) [Relative time] Rounding with Dr. Benjamin, Felicia ACEVEDO, Rosie [facility], and Jeanette GOODRICH with another patient. No [...] needs at discharge. lives with spouse. Normal [facility] Lactic Acidon 07-18-2019 Lactate [Mass/Vol] 10.1 mg/dL Normal 4.5-19.8 [facility] Comment on above: Performed By: #### 1 6222993, 0673168, 1269176, 2604682, 6440145, 1433194, 14711787, 0907733 #### [facility] Laboratory [address] [place] [address] Lipase Levelon 07-18-2019 Lipase [Catalytic activity/Vol] U/L High 13-58 [facility] Comment on above: Result Comment: Resu lt verified by dilution Performed By: #### 1 0085944, 7210108, 2708085, 8093341, 1302948, 1358301, 69949707, 6038758 #### [facility] Laboratory [address] [place] [address] Main OR Intraoperative Recor don 07-18-2019 Main OR Intraoperative Record IntraOp Document Type FT Summary Primary Physician: Abhinav REDDY MD Finalized Date/Time: 07/18/19 14:39:36 Pt. Name: SUKHDEV SCHWARTZ/Sex: 1985 Female Med Rec #: [id number] Physician: Aron ALVARADO DO Financial #: [id number] Pt. Type: I Room/Bed: [place] [address] Admit/Disch: 07/17/19 20:55:00 - Institution: Case Times FT Entry 1 Patient Times In Room 07/18/19 09:58:00 Out Room 07/18/19 10:24:00 Procedure Times Start 07/18/19 10:05:00 Stop 07/18/19 10:17:00 Anesthesia Times Start 07/18/19 09:58:00 Stop 07/18/19 10:24:00 Last Modified By: Juanita Stein CST 07/18/19 10:27:28 General Comments: 07/18/19 Chart opened to review and send charges Hilda Stein VEHICLE MODIFICATION TECHNICIAN Case Attendance FT Entry 1 Entry 2 Entry 3 Case Attendee CAPRICE GUSTAFSON, Abhinav Eaton Jr DO, Davie Cabrera RN, Pamela Role Performed Surgeon - Primary Anesthesiologist of Fluorescent Solution Mixer - Primary Record Time In 07/18/19 10:03:00 07/18/19 09:58:00 07/18/19 09:58:00 Time Out 07/18/19 10:24:00 07/18/19 10:24:00 07/18/19 10:24:00 Procedure ERCP(.) ERCP(.) ERCP(.) Comments Last Modified By: Deborah RN, Pamela Cabrera RN, Pamela Cabrera RN, Pamela 07/18/19 10:32:44 07/18/19 10:27:40 07/18/19 10:27:40 Entry 4 Entry 5 Entry 6 Case Attendee Reny Michaud VEHICLE MODIFICATION TECHNICIAN, Shobha Nicolas RT, Kathy Turcios Role Performed Scrub - Other Scrub - Primary Respiratory Therapist Time In 07/18/19 09:58:00 07/18/19 09:58:00 07/18/19 09:58:00 Time Out 07/18/19 10:24:00 07/18/19 10:24:00 07/18/19 10:24:00 Procedure ERCP(.) ERCP(.) ERCP(.) Comments assist in room Last Modified By: Deborah RN, Pamela Cabrera RN, Pamela Cabrera RN, Pamlea 07/18/19 10:33:10 07/18/19 10:27:40 07/18/19 10:27:40 Entry 7 Case Attendee Moy GOODRICH, Humaira Hooper Role Performed Fluorescent Solution Mixer - Other Time In 07/18/19 09:58:00 Time [...] BAE, Davie Perry, Deborah GOODRICH, Pamela, Jerry VEHICLE MODIFICATION TECHNICIAN, Jaswant Yeager, Reny K, Fidencio RT, Moy [...] and tissue Entry 1 Skin Integrity Intact, [place], Warm, and Skin Abnormality No Dry Outcomes [...] RN Patient Status Stable Skin. Condition Intact, [place], Warm, and Dry Airway Maintenance Oxygen in Use? No Airway Device N/A Outcomes Met? 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 Yes Verified Last Modified By: Pamela Cabrera RN 07/18/19 10:15:26 Post-Care Text: The patient received appropriate medication(s) safely administered during the perioperative period For [facility] please see scanned medication reconcilliation form [...] signs and symptoms of radiation injury Normal [facility] Main OR PACU I Recordon 10 Main OR PACU I Record PACU Phase I Document Type FT Summary Primary Physician: Abhinav REDDY MD Finalized Date/Time: 07/18/19 10:47:23 Pt. Name: SUKHDEV SCHWARTZ Antoni Garcia./Sex: 1985 Female Med Rec #: [id number] Physician: Aron ALVARADO DO Financial #: [id number] Pt. Type: I Room/Bed: [place] [address] Admit/Disch: 07/17/19 20:55:00 - Institution: Case Times [...] By: Carin Iverson RN 07/18/19 10:47 Normal [facility] Main OR Preoperative Recordo n 07-18-2019 Main OR Preoperative Record Holding Area Document Type FT Summary Primary Physician: Abhinav REDDY MD Finalized Date/Time: 07/18/19 09:36:36 Pt. Name: SEN SCHWARTZTRUMAN Garcia./Sex: 1985 Female Med Rec #: [id number] Physician: Aron ALVARADO DO Financial #: [id number] Pt. Type: I Room/Bed: [facility]/ Admit/Disch: 07/17/19 20:55:00 - Institution: Case [...] Patient states Yes Comment - Adult ip [id number] COMING postop adult Supervision supervision available Case [...] RN, Al, Kellen POZO 07/18/19 09:36 Normal [facility] PT & PTTon 07-18-2019 aPTT Coag (PPP) [Time] 28.1 second(s) Normal 25.1-36.5 [facility] Comment on above: Result Comment: Hepa rin therapeutic range (represented by Anti-Factor Xa activity of 0.2 - 0.4 U/mL) corresponds to PTT of 56.6 - 109.0 sec. Performed By: #### 1 1790824, 8031397, 3234736, 6714415, 4532683, 7423521, 76946510, 8247148 #### [facility] Laboratory [address] [place] [address] INR Coag (PPP) [Relative time] 1.0 {INR} [facility] Comment on above: Result Comment: INR results are specifically intended to assess patients stabilized on long-term Anticoagulation therapy suggested INR?s ?Less Intensive Anticoagulation? 2.0 ? 3.0 Conventional Range 3.0 ? 4.5 Performed By: #### 1 8850858, 4301444, 2096092, 2429516, 8620755, 6223399, 33379876, 5087785 #### [facility] Laboratory [address] [place] [address] PT Coag (PPP) [Time] 11.9 second(s) Normal 10.2-12.9 [facility] Comment on above: Performed By: #### 1 5887529, 0894132, 8352016, 8021257, 3308956, 1747803, 92258193, 9102309 #### [facility] Laboratory [address] [place] [address] Prescriptions/Work Noteson 1 Prescriptions/Work Notes Pt to US at this time, via cart. Normal [facility] Progress Note-Nurseon 2018 Progress Note-Nurse SIMI Murillo aware of patient c/o pain. Normal [facility] Progress Note-Nurse Pt care report provi ded to JOLEEN Chavez at this time. Normal [facility] U BetaHcg Qualon 07-18-2019 HCG.beta subunit (U) [Moles/Vol] Negative Normal [facility] Comment on above: Performed By: #### 1 8558689, 9043141, 6885476, 4584573, 4266798, 2841427, 84884749, 5422280 #### [facility] Laboratory [address] [place] [address] UA With Cult Reflexon 2018 Bacteria LM Ql (Urine sed) 1+ /HPF Abnormal Trace [facility] Comment on above: Performed By: #### 1 0055343, 0999788, 9458071, 9155477, 8715236, 1899678, 11859003, 9631084 #### [facility] Laboratory [address] [place] [address] Bilirubin Ql (U) 3+ Abnormal Negative [facility] Comment on above: Performed By: #### 1 4866050, 3804914, 0864351, 7003504, 1522979, 6121300, 07973858, 6747655 #### [facility] Laboratory [address] [place] [address] Clarity (U) SL CLOUDY Abnormal Clear [facility] Comment on above: Performed By: #### 1 5593816, 1914600, 0921946, 9881517, 0312928, 8513007, 14334156, 8228953 #### [facility] Laboratory [address] [place] [address] Color (U) DARK YELLO Abnormal Yellow [facility] Comment on above: Performed By: #### 1 3142532, 8285340, 4852167, 3468515, 7799750, 9798245, 11276985, 6138974 #### [facility] Laboratory [address] [place] [address] Crystals LM Ql (Urine sed) Present Normal [facility] Comment on above: Performed By: #### 1 6003391, 4238434, 2932778, 0100021, 5622196, 1181841, 16314973, 8008089 #### [facility] Laboratory [address] [place] [address] Epithelial cells.squamous LM.HPF (Urine sed) [#/Area] 5-8 Normal 0-2 [facility] Comment on above: Performed By: #### 1 1518148, 7764146, 3225879, 4242327, 8830350, 4776868, 32650438, 0469479 #### [facility] Laboratory [address] [place] [address] Glucose Test strip (U) [Mass/Vol] Negative Normal Negative [facility] Comment on above: Performed By: #### 1 1872087, 4170157, 7017998, 5901900, 8536901, 3702349, 32633371, 1009632 #### [facility] Laboratory [address] [place] [address] Hemoglobin Ql (U) TRACE Abnormal Negative [facility] Comment on above: Performed By: #### 1 2535338, 6281968, 4010756, 1705763, 0006734, 3219282, 46650673, 2964077 #### [facility] Laboratory [address] [place] [address] Ketones (U) [Mass/Vol] 3+ Abnormal Negative [facility] Comment on above: Performed By: #### 1 3269594, 0041370, 8065410, 5523163, 0515551, 1267564, 49841622, 9444911 #### [facility] Laboratory [address] [place] [address] Cutler.plasma/Lith ium.RBC (Bld) [Mass ratio] 4-20 Normal 0-3 [facility] Comment on above: Performed By: #### 1 0229081, 2362817, 9895653, 6157130, 1319709, 9901113, 96514140, 2491297 #### [facility] [address] [place] [address] Mucus Ql (Urine sed) 3+ Normal [facility] Comment on above: Performed By: #### 1 0392892, 9763467, 5145855, 6093668, 9395561, 9033837, 68882941, 0795244 #### [facility] Laboratory [address] [place] [address] Nitrite Ql (U) Negative Normal Negative [place] Comment on above: Performed By: #### 1 8768720, 8637287, 4581806, 2592014, 6689704, 8515692, 15517101, 7200627 #### [facility] Laboratory [address] [place] [address] pH (U) 6.0 [pH] 5.0-9.0 [facility] Comment on above: Performed By: #### 1 0518390, 7880622, 9476907, 9675580, 1586944, 0082392, 95513929, 9220667 #### [facility] Laboratory [address] [place] [address] Protein (U) [Mass/Vol] TRACE Abnormal Negative [facility] Comment on above: Performed By: #### 1 9658597, 7031773, 2938379, 7292363, 7539208, 4532690, 78070351, 0090104 #### [facility] Laboratory [address] [place] [address] Specific gravity (U) [Rel density] >=1.030 1.005-1.030 [facility] Comment on above: Performed By: #### 1 4945417, 4009930, 9286386, 9675431, 7805421, 9763225, 98049308, 2676856 #### [facility] Laboratory [address] [place] [address] UA Spec Desc Clean Catch Normal [facility] Comment on above: Performed By: #### 1 1665025, 2975179, 7172977, 6822819, 4928579, 0923104, 41125700, 0317812 #### [facility] Laboratory [address] [place] [address] Urobilinogen Qn (U) 2.0 {Payal'U}/dL Abnormal 0.0-1.0 [facility] Comment on above: Performed By: #### 1 3969871, 0444101, 7445210, 7604319, 6751620, 8409796, 84354286, 9491146 #### [facility] Laboratory [address] [place] [address] WBC Auto Ql (U) TRACE Abnormal Negative [facility] Comment on above: Performed By: #### 1 2906409, 7191494, 2700428, 3546917, 0839248, 8615301, 18874035, 6630797 #### [facility] Laboratory [address] [place] [address] WBC casts LM.LPF (Urine sed) [#/Area] 0-3 Normal [facility] Comment on above: Performed By: #### 1 6159032, 1640617, 2160858, 8353627, 1114866, 3780752, 22102225, 4288921 #### [facility] Laboratory [address] [place] [address] WBC LM.HPF (Urine sed) [#/Area] 0-5 Normal 0-5 [facility] Comment on above: Performed By: #### 1 0822725, 5083136, 6747475, 7869089, 9743707, 1899898, 89826565, 8665351 #### [facility] Laboratory [address] [place] [address] US Gallbladderon 07-18-2019 US Gallbladder Exam Date/Time: [...] MD Transcribed by: MADISON Technologist: LALY Earl [facility] XR ERCP Biliary Ducton 07-18 XR ERCP Biliary Duct Exam Date/Time: 07/18/2019 10:25 EDT Reason for Exam: ercp Report IMPRESSION: DISTAL COMMON BILE DUCT STONE, WITH APPARENT REMOVAL FOLLOWING PASSAGE OF A BALLOON CATHETER. SUSPECTED SHORT SEGMENT SPASM OF THE DISTAL MOST COMMON BILE DUCT. CLINICAL HISTORY: ERCP. COMMENT: 6 limited [id number] C-arm images were obtained during an ERCP [...] mGy = 62.1 Fluoro Time: 141.1s Normal [facility] eGFRon 07-18-2019 GFR/1.73 sq M predicted among blacks MDRD (S/P/Bld) [Vol rate/Area] mL/min/{1.73_m2} Normal >=59 [facility] Comment on above: Order Comment: Order added by Discern Expert. Result Comment: eGFR is race adjusted. AA=. Performed By: #### 1 3972517, 7973668, 4536890, 5124342, 4442709, 2455305, 04777525, 7756895 #### [facility] Laboratory [address] [place] [address] GFR/1.73 sq M predicted among non-blacks MDRD (S/P/Bld) [Vol rate/Area] mL/min/{1.73_m2} Normal >=59 [facility] Comment on above: Order Comment: Order added by Discern Expert. Result Comment: Pattern Drum Maker ivan kidney disease could be indicated at eGFR's of less than 60 mL/min/1.73m2. Kidney failure is indicated at less than 15 mL/min/1.73m2. Performed By: #### 1 3963448, 6764727, 2786635, 5998366, 4672212, 7693785, 37112675, 8897958 #### [facility] Laboratory [address] [place] [address] GFR/1.73 sq M predicted among blacks MDRD (S/P/Bld) [Vol rate/Area] mL/min/{1.73_m2} Normal >=59 [facility] Comment on above: Order Comment: Order added by Discern Expert. Result Comment: eGFR is race adjusted. AA=. Performed By: #### 1 6856303, 3762916, 4418280, 7607768, 0055731, 3217794, 88128767, 5953589 #### [facility] Laboratory [address] [place] [address] GFR/1.73 sq M predicted among non-blacks MDRD (S/P/Bld) [Vol rate/Area] mL/min/{1.73_m2} Normal >=59 [facility] Comment on above: Order Comment: Order added by Discern Expert. Result Comment: Pattern Drum Maker ivan kidney disease could be indicated at eGFR's of less than 60 mL/min/1.73m2. Kidney failure is indicated at less than 15 mL/min/1.73m2. Performed By: #### 1 2965494, 0583302, 7575200, 5021020, 8515758, 0554589, 66782245, 8218204 #### [facility] Laboratory [address] [place] [address] Amylaseon 07-17-2019 Amylase [Catalytic activity/Vol] 39 U/L 28 - 100 U/L [place] CBC Auto Differentialon 06-20 Basophils (Bld) [#/Vol] 0.00 10*3/uL [place] Basophils/100 WBC (Bld) 0 % 0 - 2 % [place] Differential Type YES [place] Eosinophils (Bld) [#/Vol] 0.10 10*3/uL [place] Eosinophils/100 WBC (Bld) 1 % 0 - 5 % [place] Erythrocyte distribution width (RBC) [Ratio] 13.3 % 12.1 - 15.2 % [place] Hematocrit (Bld) [Volume fraction] 36.1 % 36 - 46 % [place] Hemoglobin (Bld) [Mass/Vol] 12.3 g/dL 12 - 16 g/dL [place] Lymphocytes (Bld) [#/Vol] 1.50 10*3/uL [place] Lymphocytes/100 WBC (Bld) 23 % 15 - 40 % [place] MCH (RBC) [Entitic mass] 30.5 pg 26 - 34 pg [place] MCHC (RBC) [Mass/Vol] 34.1 g/dL 31 - 37 g/dL [place] MCV (RBC) [Entitic vol] 89.3 fL 80 - 100 fL [place] Monocytes (Bld) [#/Vol] 0.40 10*3/uL [place] Monocytes/100 WBC (Bld) 6 % 4 - 8 % [place] Platelet mean volume (Bld) [Entitic vol] NOT REPORTED 6 - 12 fL [place] Platelets (Bld) [#/Vol] 301 10*3/uL [place] Platelets (Bld) [#/Vol] NOT REPORTED [place] RBC (Bld) [#/Vol] 4.04 10*6/uL 4 - 5.2 m/uL [place] RBC morphology finding Nom (Bld) NOT REPORTED [place] Segmented neutrophils/100 WBC (Bld) 70 % 47 - 75 % [place] Segs Absolute 4.60 [place] WBC (Bld) [#/Vol] 6.6 10*3/uL [place] WBC (Bld) [#/Vol] NOT REPORTED per 100 WBC [place] WBC Morphology NOT REPORTED [place] Comprehensive Metabolic Pane avel 07-17-2019 Albumin [Mass/Vol] 4.4 g/dL 3.5 - 5.2 g/dL [place] Albumin/Globulin [Mass ratio] NOT REPORTED [place] ALP [Catalytic activity/Vol] 84 U/L 35 - 104 U/L [place] ALT [Catalytic activity/Vol] 153 U/L High 5 - 33 U/L [place] Anion gap [Moles/Vol] 11 mmol/L 9 - 17 mmol/L [place] AST [Catalytic activity/Vol] 243 U/L High <32 [place] Bilirubin Ql (U) 2.37 mg/dL High 0.3 - 1.2 mg/dL [place] Bun/Cre Ratio 27 High [place] Calcium [Mass/Vol] 9.9 mg/dL 8.6 - 10. 4 mg/dL [place] Chloride [Moles/Vol] 104 mmol/L 98 - 107 mmol/L [place] CO2 [Moles/Vol] 24 mmol/L 20 - 31 mmol/L [place] Creatinine [Mass/Vol] 0.49 mg/dL Low 0.5 - 0.9 mg/dL [place] GFR >60 >60 mL/min [place] GFR Non- >60 >60 mL/min [place] GFR/1.73 sq M predicted among non-blacks MDRD (S/P/Bld) [Vol rate/Area] [place] Comment on above: Average GFR for 30-3 9 years old: 107 mL/min/1.73sq m Chronic Kidney Disease: <60 mL/min/1.73sq m Kidney failure: <15 mL/min/1.73sq m eGFR calculated using average adult body mass. Additional eGFR calculator available at: http://www.TalkSession/multiple_crcl_2012.htm GFR/1.73 sq M predicted among non-blacks MDRD (S/P/Bld) [Vol rate/Area] NOT REPORTED [place] Glucose [Mass/Vol] 97 mg/dL 70 - 99 mg/dL [place] Interpretation and review of laboratory results Abnormal [place] Potassium [Moles/Vol] 3.6 mmol/L Low 3.7 - 5.3 mmol/L [place] Protein [Mass/Vol] 7.5 g/dL 6.4 - 8.3 g/dL [place] Sodium [Moles/Vol] 139 mmol/L 135 - 144 mmol/L [place] Urea nitrogen [Mass/Vol] 13 mg/dL 6 - 20 mg/dL [place] Lipaseon 07-17-2019 Lipase [Catalytic activity/Vol] 20 U/L 13 - 60 U/L [place] Otheron 07-17-2019 Immature granulocytes (Bld) [#/Vol] NOT REPORTED 0 % [place] US HEAD NECK SOFT TISSUE THY ROIDon 07-14-2019 Stable nodules with no follow-up needed. [place] EXAM: US HEAD NECK S OFT [...] lobe: 4.9 x 1.3 x 1.9 cm. [place] Misha, Mhpn Incoming R adiant Results From Rixty/[employer]ason - 07/14/2019 3:21 PM EDT EXAM: US [...] IMPRESSION: Stable nodules with no follow-up needed. [place] TSHon 07-07-2019 TSH Qn 0.78 m[IU]/L Normal 0.44 - 3.98 [facility] Comment on above: Result Comment: TSH testing is performed using different testing methodology at [facility] than at other [facility]. Direct result comparisons should only be made within the same method. . Patients receiving more than 5 mg/day of biotin may have interference in test results. A sample should be taken no sooner than eight hours after previous dose. Contact [phone] for additional information. Performed By: #### T SH2 #### [facility] [address] [place] [address] TSHon 05-25-2019 TSH Qn 0.77 m[IU]/L Normal 0.44 - 3.98 [facility] Comment on above: Result Comment: TSH testing is performed using different testing methodology at [facility] than at [facility]. Direct result comparisons should only be made within the same method. . Patients receiving more than 5 mg/day of biotin may have interference in test results. A sample should be taken no sooner than eight hours after previous dose. Contact [phone] for additional information. Performed By: #### T SH2 #### [facility] [address] [place] [address] TSHon 01-18-2019 TSH Qn 0.75 m[IU]/L Normal 0.44 - 3.98 [facility] Comment on above: Result Comment: TSH testing is performed using different testing methodology at [facility] than at other [facility]. Direct result comparisons should only be made within the same method. . Patients receiving more than 5 mg/day of biotin may have interference in test results. A sample should be taken no sooner than eight hours after previous dose. Contact [phone] for additional information. Performed By: #### T SH2 #### [facility] [address] [place] [address] TSHon 01-10-2019 TSH Qn 1.27 m[IU]/L Normal 0.44 - 3.98 [facility] Comment on above: Result Comment: TSH testing is performed using different testing methodology at [facility] than at other [facility]. Direct result comparisons should only be made within the same method. . Patients receiving more than 5 mg/day of biotin may have interference in test results. A sample should be taken no sooner than eight hours after previous dose. Contact [phone] for additional information. Performed By: #### T SH2 #### [facility] [address] [place] [address] TSHon 12-07-2018 TSH Qn 0.86 m[IU]/L Normal 0.44 - 3.98 [facility] Comment on above: Result Comment: TSH testing is performed using different testing methodology at [facility] than at other [facility]. Direct result comparisons should only be made within the same method. . Patients receiving more than 5 mg/day of biotin may have interference in test results. A sample should be taken no sooner than eight hours after previous dose. Contact [phone] for additional information. Performed By: #### T SH2 #### [facility] [address] [place] [address] EXT LAB FERRITINon 9 Ferritin mass conc 97 ng/mL [facility] External Lab CBC (With or wi thout Diff)on 11-12-2018 Basophils (Bld) [#/Vol] 0.0 10*3/uL [facility] Basophils/100 WBC (Bld) 0.8 % [facility] Eosinophils (Bld) [#/Vol] 0.1 10*3/uL [facility] Eosinophils (Bld) [#/Vol] 2.5 10*3/uL [facility] Erythrocyte distribution width (RBC) [Ratio] 12.8 % [facility] Hematocrit (Bld) [Volume fraction] 39.1 % [facility] Hemoglobin (Bld) [Mass/Vol] 13.2 g/dL [facility] Lymphocytes (Bld) [#/Vol] 1.8 10*3/uL [facility] Lymphocytes (Bld) [#/Vol] 30.4 10*3/uL [facility] MCH (RBC) [Entitic mass] 29.8 pg [facility] MCHC (RBC) [Mass/Vol] 33.7 g/dL [facility] MCV (RBC) [Entitic vol] 88.6 fL [facility] Monocytes (Bld) [#/Vol] 0.4 10*3/uL [facility] Monocytes (Bld) [#/Vol] 7.2 10*3/uL [facility] Neutrophils (Bld) [#/Vol] 59.1 10*3/uL [facility] Neutrophils (Bld) [#/Vol] 3.4 10*3/uL [facility] Platelet mean volume (Bld) [Entitic vol] 7.2 fL [facility] Platelets (Bld) [#/Vol] 308 10*3/uL K/mcL [facility] RBC (Bld) [#/Vol] 4.4 10*6/uL [facility] alth WBC (Bld) [#/Vol] 5.80 10*3/uL K/mcL [facility] External Lab Comprehensive M etabolic Panelon 11-12-2018 Albumin [Mass/Vol] 4.1 g/dL [facility] Albumin/Globulin [Mass ratio] 1.2 {ratio} [facility] ALP [Catalytic activity/Vol] 52 U/L [facility] ALT [Catalytic activity/Vol] 11 U/L [facility] AST [Catalytic activity/Vol] 15 U/L [facility] Bilirubin Ql (U) 1.0 mg/dL [facility] Calcium [Mass/Vol] 9.5 mg/dL [facility] alth Chloride [Moles/Vol] 102 mmol/L [facility] Creatinine [Mass/Vol] 0.60 mg/dL [facility] GFR/1.73 sq M predicted among blacks MDRD (S/P/Bld) [Vol rate/Area] [facility] GFR/1.73 sq M predicted among non-blacks MDRD (S/P/Bld) [Vol rate/Area] [facility] Globulin (S) [Mass/Vol] 3.3 g/dL [facility] Glucose [Mass/Vol] 87 mg/dL [facility] alth HCO3 (Bld) [Moles/Vol] 25 mmol/L [facility] Magnesium [Mass/Vol] [facility] Phosphate [Mass/Vol] mg/dL [facility] Potassium [Moles/Vol] 4.1 mmol/L [facility] Protein [Mass/Vol] 7.4 g/dL [facility] Sodium [Moles/Vol] 137 mmol/L [facility] Urate [Mass/Vol] mg/dL [facility] Urea nitrogen [Mass/Vol] 15 mg/dL [facility] Urea nitrogen/Creatinine [Mass ratio] 25 mg/mg High [facility] External Lab Vitamin D, 25-O Hon 11-12-2018 Vitamin D, 25-OH 55.0 [facility] External Vitamin B12 and Fol ateon 11-12-2018 Cobalamin (Vitamin B12) mass conc 1500 pg/mL Off scale high [facility] Folate 24.8 ng/mL Off scale high [facility] Otheron 11-12-2018 Interpretation and review of laboratory results Abnormal [facility] TSHon 08-13-2018 TSH Qn 0.64 m[IU]/L Normal 0.44 - 3.98 [facility] Comment on above: Order Comment: FXD S TAT TO [phone]; SPOKE W/ALFREDO , 08/12/2018 22:23 Result Comment: TSH testing is performed using different testing methodology at [facility] than at other [facility]. Direct result comparisons should only be made within the same method. . Patients receiving more than 5 mg/day of biotin may have interference in test results. A sample should be taken no sooner than eight hours after previous dose. Contact [phone] for additional information. FXD STAT TO [phone]; SPOKE W/ALFREDO , 08/12/2018 22:23 Performed By: #### T SH2 #### [facility] [address] [place] [address] Vital Signs Date Time Vital Sign Value Performing Clinician Facility 09-12-2019 15:37-0500 BMI (Body Mass Index) 31.06 kg/m2 [facility] 09-12-2019 15:37-0500 Body weight 103.87 kg [facility] 09-12-2019 15:37-0500 BP Diastolic 85 mm[Hg] [facility] 09-12-2019 15:37-0500 BP Systolic 126 mm[Hg] [facility] 09-12-2019 15:37-0500 Height 182.9 cm [facility] 09-12-2019 15:37-0500 Pulse (Heart Rate) 73 /min [facility] 11-08-2017 09:56-0500 BMI (Body Mass Index) 36.08 kg/m2 [facility] Work Phone: 11-08-2017 09:56-0500 BP Diastolic 81 mm[Hg] [facility]: 11-08-2017 09:56-0500 BP Systolic 120 mm[Hg] [facility] Work Phone: 11-08-2017 09:56-0500 Height 182.9 cm [facility] Work Phone: 11-08-2017 09:56-0500 Pulse (Heart Rate) 70 /min [facility] Work Phone: 11-08-2017 09:56-0500 Weight 120.66 kg [facility] Work Phone: 08-09-2017 14:05-0400 BMI (Body Mass Index) 40.01 kg/m2 Behzad Z[facility]ya [facility] Work Phone: 08-09-2017 14:05-0400 Body Temperature 97.5 [degF] Behzad Zacherya [facility] Work Phone: 08-09-2017 14:05-0400 BP Diastolic 74 mm[Hg] Behzad Zacherya [facility] Work Phone: 08-09-2017 14:05-0400 BP Systolic 130 mm[Hg] [facility] Work [facility]: 08-09-2017 14:05-0400 Height 182.9 cm [facility] Work Phone: 08-09-2017 14:05-0400 Pulse (Heart Rate) 85 /min [facility] Work Phone: 08-09-2017 14:05-0400 Weight 133.81 kg [facility] Work Phone: 06-01-2017 14:30-0400 BMI (Body Mass Index) 43.26 kg/m2 [facility] Work Phone: 06-01-2017 14:30-0400 Body Temperature 97.81 [degF] [facility] Work Phone: 06-01-2017 14:30-0400 BP Diastolic 82 mm[Hg] [facility] Work Phone: 06-01-2017 14:30-0400 BP Systolic 128 mm[Hg] [facility] Work Phone: 06-01-2017 14:30-0400 Height 182.9 cm [facility] Work Phone: 06-01-2017 14:30-0400 Pulse (Heart Rate) 82 /min Behzad Zacherya [facility] Work Phone: 06-01-2017 14:30-0400 Weight 144.7 kg [facility] Work Phone: Encounters Encounter Date Encounter Type Care Provider Facility Start: 04-02-2023 End: 04-03-2023 ambulatory [facility] Start: 04-02-2023 End: 04-02-2023 Subsequent hospital visit by physician Lloi Matias MD Work Phone: [facility] Laboratory Comment on above: Acquired hypothyroid ism Start: 11-10-2022 End: 11-13-2022 ambulatory [facility] Start: 11-10-2022 End: 11-12-2022 Subsequent hospital visit by physician [facility] Ultrasound Room [facility] Ultrasound Comment on above: Acquired hypothyroid ism Start: 11-06-2022 End: 02-15-[address] DREW MCBRIDE Facility: Start: 01-13-2022 End: 01-15-2022 Subsequent hospital visit by physician Loli Matias MD Work Phone: [facility] Start: 11-19-2020 End: 11-19-2020 Billy Ramirez Work Phone: [facility] Start: 09-20-2019 End: 09-20-2019 Documentation procedure Behzad Rajendrasinh Rana Work Phone: [facility] Start: 09-18-2019 End: 09-18-2019 Documentation procedure Behzad Rajendrasinh Rana Work Phone: [facility] Start: 09-12-2019 End: 09-12-2019 Patient encounter procedure BEHZAD RAJENDRASINH RANA [facility] Amb[facility] Start: 09-12-2019 End: 09-12-2019 Office outpatient visit 15 minutes Behzad Rajendrasinh Rana Work Phone: [facility] Comment on above: Bariatric surgery st [facility] (Primary Dx); Obesity, Class I, BMI 30-34.9 Start: 07-17-2019 End: 07-17-2019 Subsequent hospital visit by physician Loli Matias [facility] Laboratory Comment on above: Epigastric pain; History of pancreatitis Start: 07-14-2019 End: 07-16-2019 Subsequent hospital visit by physician [facility] Ultrasound Room [facility] Ultrasound Comment on above: Thyroid nodule Start: 11-16-2018 End: 11-16-2018 Documentation procedure Behzad Hu Work Phone: [facility] Start: 10-24-2018 End: 10-24-2018 Patient encounter procedure BEHZAD HU [facility] Start: 04-11-2018 End: 04-11-2018 [facility] Start: 11-08-2017 Office/outpatient vi sit, est, level 3 Behzad Berniceharvinder Binghamsamuel Work Phone: [facility] Start: 08-09-2017 End: 08-09-2017 Office outpatient visit 15 minutes Behzad Queenhortensiakristian Zacherysamuel Work Phone: [facility] Comment on above: Bariatric surgery st [facility] (Primary Dx) Start: 06-01-2017 Postop follow-up visit Behzad majanokristian Mayte Work Phone: [facility] Start: 04-30-2017 End: 05-02-2017 Evaluation and management of inpatient [facility] Start: 04-30-2017 Ambulatory JOSE DRAPER [facility] Start: 04-23-2017 End: 04-27-2017 Ambulatory [facility] Start: 04-05-2012 End: 08-15-2018 Patient encounter procedure Loli Matias MD Work Phone: [facility] Procedures Date Procedure Procedure Detail Performing Clinician Start: 04-02-2023 Assay of thyroid stimulating hormone tsh Loli Matias MD Work Phone: Start: 11-10-2022 Us soft tissue head & neck real time imge docm Nissa Lo 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 Work Phone: Start: 09-13-2019 EXT LAB FERRITIN [...] DTaP/Tdap/Td vaccine (3 - Td or Tdap) [facility] Start: 05-30-2024 DTaP/Tdap/Td vaccine (3 - Td) DTaP/Tdap/Td vaccine (3 - Td) [place] Start: 05-30-2024 DTaP/Tdap/Td vaccine (7 - Td or Tdap) DTaP/Tdap/Td vaccine (7 - Td or Tdap) [facility] Start: 05-30-2024 Tetanus vaccination [facility] Start: 03-24-2024 Depression Screen Depression Screen [facility] Start: 11-18-2022 Depression Screen Depression Screen [facility] Start: 11-18-2022 Thyroid stimulating hormone measurement TSH testing [facility] Start: 2021 Diabetes screen Diabetes screen [facility] Start: 03-28-2021 COVID-19 Vaccine (3 - Booster for Moderna series) COVID-19 Vaccine (3 - Booster for Moderna series) [facility] Start: 09-28-2020 Cervical cancer screen Cervical canc er screen [place], [place] Start: 09-28-2020 Screening for malign ant neoplasm of cervix [facility] Start: 06-18-2020 Influenza vaccinatio n given Sequential Influenza Vaccine (#1) [facility] Start: 06-18-2019 Influenza vaccination Flu vaccine (# 1) [place], [place] Start: 06-18-2019 Influenza vaccinatio n given SEQUENTIAL INFLUENZA VACCINE (#1) [facility] Start: 04-24-2019 End: 04-24-2019 Office Visit 04/24/2019 Office Visit Behzad Rockwell MD [address] [place] [address] [phone] [facility] Start: 08-05-2018 TSH testing TSH testing [facility] [place], [place] Start: 06-18-2018 Influenza vaccinatio n given SEQUENTIAL INFLUENZA VACCINE (#1) [facility] Start: 05-02-2018 Ambulatory 05/02/2018 Off ice Visit Behzad Rockwell MD [address] [place] [address] [phone] [facility] Start: 11-01-2017 Ambulatory 11/01/2017 Off ice Visit Behzad Rockwell MD [address] [place] [address] [phone] [facility] Start: 08-02-2017 Ambulatory 08/02/2017 Off ice Visit Behzad Rockwell MD [address] [place] [address] [phone] [facility] Start: 06-18-2017 Influenza vaccination SEQUENTI AL INFLUENZA VACCINE (#1) [facility] Work Phone: Start: 06-18-2017 SEQUENTIAL INFLUENZA VACCINE (#1) SEQUENTIAL INFLUENZA VACCINE (#1) [facility] Work Phone: Start: 2016 Screening for malign ant neoplasm of cervix HPV (without or with Pap) [facility] Start: 2004 Hepatitis C antibody , confirmatory test Hepatitis C Screening [facility] Start: 2004 Hepatitis C screening Hepatitis C sc reen [facility] Start: 10-04-2002 Hepatitis A vaccine (2 of 2 - 2-dose series) Hepatitis A vaccine (2 of 2 - 2-dose series) [facility] Start: 2001 HIV screen HIV screen [facility] [place] Start: 2001 HIV screening Olga L[facility] Start: 12-25-1999 Varicella Vaccine (1 of 2 - 13+ 2-dose series) Varicella Vaccine (1 of 2 - 13+ 2-dose series) [place], [place] Start: 1998 Adolescent depressio n screening assessment Depression Screening (PHQ9) [facility] Start: 1989 History and physical examination, annual for health maintenance Wellness Visit [facility] Start: 12-25-1987 Varicella vaccine (1 of 2 - 2-dose childhood series) Varicella vaccine (1 of 2 - 2-dose childhood series) [facility] Start: 1986 Cytopathology procedure, preparation of smear, genital source PAP SMEAR [facility] Work Phone: Start: 1986 Hepatitis C screening Hepatitis C sc reen [facility] Start: 1986 Screening for malign ant neoplasm of cervix PAP SMEAR [facility] Work Phone: Start: 1986 TETANUS EVERY 10 YR TETANUS EVERY 10 YR [facility] Work Phone: Start: 1986 Tetanus vaccination TETANUS EVERY 10 YR [facility] Work Phone: End: 09-12-2020 Blood zinc measurement Zinc Lab Routine Bariatric surgery status 1 Occurrences starting 09/12/2019 until 09/12/2020 [facility] Comment on above: 1 Occurrences starti ng 09/12/2019 until 09/12/2020 End: 08-10-2018 CBC and Differential CBC and Differential Routine Bariatric surgery status 1 Occurrences starting 08/09/2017 until 08/10/2018 [facility] Work Phone: Comment on above: 1 Occurrences starti ng 08/09/2017 until 08/10/2018 End: 08-10-2018 Ceruloplasmin Ceruloplasmin Routine Bariatric surgery status 1 Occurrences starting 08/09/2017 until 08/10/2018 [facility] Work Phone: Comment on above: 1 Occurrences starti ng 08/09/2017 until 08/10/2018 End: 09-12-2020 Cobalamin (Vitamin B12) [Mass/Vol] Vitamin B12 Lab Routine Bariatric surgery status 1 Occurrences starting 09/12/2019 until 09/12/2020 [facility] Comment on above: 1 Occurrences starti ng 09/12/2019 until 09/12/2020 End: 08-10-2018 Cobalamin (Vitamin B12) mass conc Vitamin B12 Routine Bariatric surgery status 1 Occurrences starting 08/09/2017 until 08/10/2018 [facility] Work Phone: Comment on above: 1 Occurrences starti ng 08/09/2017 until 08/10/2018 End: 08-10-2018 Comprehensive metabolic 2000 panel Comprehensive Metabolic Panel Routine Bariatric surgery status 1 Occurrences starting 08/09/2017 until 08/10/2018 [facility] Work Phone: Comment on above: 1 Occurrences starti ng 08/09/2017 until 08/10/2018 External Lab Iron External Lab I amanda Routine 11/12/2018 [facility] End: 08-09-2018 Ferritin [Mass/volume] in Serum or Plasma Ferritin Routine Bariatric surgery status 1 Occurrences starting 08/09/2017 until 08/09/2018 [facility] Work Phone: Comment on above: 1 Occurrences starti ng 08/09/2017 until 08/09/2018 End: 08-10-2018 Folate Folate Routine Bariatric surgery status 1 Occurrences starting 08/09/2017 until 08/10/2018 [facility] Work Phone: Comment on above: 1 Occurrences starti ng 08/09/2017 until 08/10/2018 End: 09-12-2020 Folate [Mass/Vol] Folate Lab Routine Bariatric surgery status 1 Occurrences starting 09/12/2019 until 09/12/2020 [facility] Comment on above: 1 Occurrences starti ng 09/12/2019 until 09/12/2020 End: 08-10-2018 Hemoglobin A1c/Hemoglobin.total mass fraction (Bld) Hemoglobin A1c Routine Bariatric surgery status 1 Occurrences starting 08/09/2017 until 08/10/2018 [facility] Work Phone: Comment on above: 1 Occurrences starti ng 08/09/2017 until 08/10/2018 End: 09-12-2020 Iron measurement Iron Study with Ferritin Lab Routine Bariatric surgery status 1 Occurrences starting 09/12/2019 until 09/12/2020 [facility] Comment on above: 1 Occurrences starti ng 09/12/2019 until 09/12/2020 End: 08-10-2018 Lipid panel Lipid Panel Routine Bariatric surgery status 1 Occurrences starting 08/09/2017 until 08/10/2018 [facility] Work Phone: Comment on above: 1 Occurrences starti ng 08/09/2017 until 08/10/2018 End: 08-10-2018 PTH, Intact PTH, Intact Routine Bariatric surgery status 1 Occurrences starting 08/09/2017 until 08/10/2018 [facility] Work Phone: Comment on above: 1 Occurrences starti ng 08/09/2017 until 08/10/2018 End: 09-12-2020 Pyridoxal 5 phosphate level Vitamin B6 Lab Routine Bariatric surgery status 1 Occurrences starting 09/12/2019 until 09/12/2020 [facility] Comment on above: 1 Occurrences starti ng 09/12/2019 until 09/12/2020 End: 08-10-2018 Reticulocytes panel - Blood Reticulocyte Routine Bariatric surgery status 1 Occurrences starting 08/09/2017 until 08/10/2018 [facility] Work Phone: Comment on above: 1 Occurrences starti ng 08/09/2017 until 08/10/2018 End: 09-12-2020 Thiamine measurement Vitamin B1, Whole Blood Lab Routine Bariatric surgery status 1 Occurrences starting 09/12/2019 until 09/12/2020 [facility] Comment on above: 1 Occurrences starti ng 09/12/2019 until 09/12/2020 End: 08-10-2018 Thyrotropin Qn TSH Routine Bariatric surgery status 1 Occurrences starting 08/09/2017 until 08/10/2018 [facility] Work Phone: Comment on above: 1 Occurrences starti ng 08/09/2017 until 08/10/2018 End: 04-02-2023 Thyroxine (T4) free [Mass/volume] in Serum or Plasma [facility] Comment on above: 1 Occurrences starti ng 04/02/2023 until 04/02/2023 End: 08-10-2018 Vitamin A Vitamin A Routine Bariatric surgery status 1 Occurrences starting 08/09/2017 until 08/10/2018 [facility] Work Phone: Comment on above: 1 Occurrences starti ng 08/09/2017 until 08/10/2018 End: 09-12-2020 Vitamin A measurement Vitamin A Lab Routine Bariatric surgery status 1 Occurrences starting 09/12/2019 until 09/12/2020 [facility] Comment on above: 1 Occurrences starti ng 09/12/2019 until 09/12/2020 End: 08-10-2018 Vitamin B1, Whole Blood Vitamin B1, Whole Blood Routine Bariatric surgery status 1 Occurrences starting 08/09/2017 until 08/10/2018 [facility] Work Phone: Comment on above: 1 Occurrences starti ng 08/09/2017 until 08/10/2018 End: 08-10-2018 Vitamin B6 Vitamin B6 Routine Bariatric surgery status 1 Occurrences starting 08/09/2017 until 08/10/2018 [facility] Work Phone: Comment on above: 1 Occurrences starti ng 08/09/2017 until 08/10/2018 End: 09-12-2020 Vitamin D, 25-hydroxy measurement Vitamin D, Total, 25-OH Lab Routine Bariatric surgery status 1 Occurrences starting 09/12/2019 until 09/12/2020 [facility] Comment on above: 1 Occurrences starti ng 09/12/2019 until 09/12/2020 End: 08-10-2018 Vitamin D, Total, 25-OH Vitamin D, Total, 25-OH Routine Bariatric surgery status 1 Occurrences starting 08/09/2017 until 08/10/2018 [facility] Work Phone: Comment on above: 1 Occurrences starti ng 08/09/2017 until 08/10/2018 End: 08-10-2018 Zinc Zinc Routine Bariatric surgery status 1 Occurrences starting 08/09/2017 until 08/10/2018 [facility] Work Phone: Comment on above: 1 Occurrences starti ng 08/09/2017 until 08/10/2018 Immunizations Immunization Date Immunization Notes Care Provider [facility] 07-23-2022 influenza, injectabl e, quadrivalent, preservative free Loli Matias MD Work Phone: [facility] 09-10-2021 influenza virus vaccine, unspecified formulation Loli Matias MD Work Phone: [facility] Work Phone: 10-28-2020 COVID-19, Moderna, Primary or Immunocompromised, PF, 100mcg/0.5mL Loli Matias MD Work Phone: [facility] Work Phone: 10-28-2020 COVID-19, Pfizer Pur ple top, DILUTE for use, 12+ yrs, 30mcg/0.3mL dose Loli Matias MD Work Phone: [facility] Work Phone: 10-04-2020 COVID-19, Moderna, Primary or Immunocompromised, PF, 100mcg/0.5mL Loli Matias MD Work Phone: [facility] Work Phone: 10-04-2020 COVID-19, Pfizer Pur ple top, DILUTE for use, 12+ yrs, 30mcg/0.3mL dose Loli Matias MD Work Phone: [facility] 08-04-2017 tuberculin skin test ; purified protein derivative solution, intradermal [facility] [place] 08-04-2017 unknown vaccine or immune globulin Loli Matias MD Work Phone: [facility] 05-30-2014 tetanus toxoid, redu rachael diphtheria toxoid, and acellular pertussis vaccine, adsorbed [facility] [place] 04-05-2012 tetanus toxoid, redu rachael diphtheria toxoid, and acellular pertussis vaccine, adsorbed [facility] 04-05-2012 tuberculin skin test ; purified protein derivative solution, intradermal [facility] [place] 02-24-2006 hepatitis B vaccine, pediatric or pediatric/adolescent dosage Loli Matias MD Work Phone: [facility] 10-26-2005 hepatitis B vaccine, pediatric or pediatric/adolescent dosage Loli Matias MD Work Phone: [facility] 09-24-2005 hepatitis B vaccine, pediatric or pediatric/adolescent dosage Loli Matias MD Work Phone: [facility] 04-04-2002 hepatitis A and hepatitis B vaccine Loli Matias MD Work Phone: [facility] 04-04-2002 TD(adult) unspecifie d formulation Loli Matias MD Work Phone: [facility] 01-28-1999 measles, mumps and rubella virus vaccine Loli Matias MD Work Phone: [facility] 04-17-1992 diphtheria, tetanus toxoids and acellular pertussis vaccine, unspecified formulation Loli Matias MD Work Phone: [facility] 05-06-1988 diphtheria, tetanus toxoids and pertussis vaccine Loli Matias MD Work Phone: [facility] 05-06-1988 measles, mumps and rubella virus vaccine Loli Matias MD Work Phone: [facility] 01-01-1988 diphtheria, tetanus toxoids and pertussis vaccine Loli Matias MD Work Phone: [facility] 05-01-1987 diphtheria, tetanus toxoids and pertussis vaccine Loli Matias MD Work Phone: [facility] Payers Date Payer Category Payer Unknown [id number] 2022 Unknown [id number] 2019 Unknown BCBS [place] - [place] P [address] [id number] 2019-Present [phone] [address] [place] [address] [id number] 2019 Unknown [facility] UMR NADERSON CE PLUS [id number] 2019-Present [id number] 2018 Unknown [id number] 2018 Private Health Insurance AETNA A ETNA CHOICE POS/POSII/PREMIER CARE/PREMIER CARE PLUS xxxxxxxxxx 2018-Present xxxxxxxxxx [id number] 2018 Private Health Insurance [id number] 2017 Unknown [id number] 3 2017 Unknown [id number] 1986 Unknown [id number] 1986 Unknown [id number] 1986 Unknown [id number] 1986 Unknown [id number] 1986 Unknown [id number] 1986 Unknown [id number] 1959 Self-pay 1959 Unknown [id number] Unknown [id number] 3 Social History Date Type Detail Facility Start: 06-01-2017 End: 03-24-2023 Tobacco smoking status MTIS Never smoker [facility] Work Phone: Start: 1985 Sex Assigned At Not on file O [facility] Work Phone: Start: 04-26-2019 End: 07-17-2019 Alcohol intake No [employer] [place], [place] Start: 09-12-2019 End: 03-24-2023 Alcohol intake Current non-drinker of alcohol (finding) [facility] Start: 09-12-2019 End: 03-24-2023 Tobacco use and exposure Never used [facility] Start: 01-13-2022 Alcohol intake [employer] Work Phone: Start: 11-18-2021 History SDOH Financial 5 [employer] Work Phone: Start: 11-18-2021 End: 03-24-2023 History SDOH Food Worry 1 [employer] Phone: Start: 03-24-2023 History SDOH Financial 4 [employer] Start: 03-24-2023 History SDOH Transpo rt Non-Med 2 [employer] Medical Equipment Procedure Code Equipment Code Equipment Origin al Text Equipment Identifier Dates Kit 4ml Vh S/D Tisseel Frozen - [id number] Start: 04-30-2017 Strip Ech 60 Pranav nf Bovine Dorothy-Strips Dry W/[employer] - [id number] Start: 04-30-2017 Kit 4ml Vh S/D Tisseel Frozen - [id number] Start: 04-30-2017 Strip Ech 60 Pranav nf Bovine Dortohy-Strips Dry W/Veritas - [id number] Start: 04-30-2017 Kit 4ml Vh S/D Tisseel Frozen - [id number] Start: 04-30-2017 Strip Ech 60 Pranav nf Bovine Dorothy-Strips Dry W/Veritas - [id number] Start: 04-30-2017 Kit 4ml Vh S/D Tisseel Frozen - [id number] Start: 04-30-2017 Strip Ech 60 Pranav nf Bovine Odrothy-Strips Dry W/Veritas - [id number] Start: 04-30-2017 Kit 4ml Vh S/D Tisseel Frozen - [id number] Start: 04-30-2017 Strip Ech 60 Pranav nf Bovine Dorothy-Strips Dry W/Veritas - [id number] Start: 04-30-2017 Kit 4ml Vh S/D Tisseel Frozen - [id number] Start: 04-30-2017 Comment on above: Description: 8ml use d ( 2-4ml kits) Clarification for billing purpose 8 ml = 4 used 0 wasted Strip Ech 60 Pranav nf Bovine Dorothy-Strips Dry W/[employer]itas - [id number] Start: 04-30-2017 Comment on above: Description: Charge Only Kit 4ml Vh S/D Tisseel Frozen - [id number] Start: 04-30-2017 Strip Ech 60 Pranav nf Bovine Dorothy-Strips Dry W/Veritas - [id number] Start: 04-30-2017 Kit 4ml Vh S/D Tisseel Frozen - [id number] Start: 04-30-2017 Strip Ech 60 Pranav nf Bovine Dorothy-Strips Dry W/Veritas - [id number] Start: 04-30-2017 Evaluation note Note Date & Type Note Facility Evaluation note Diagnosis Acquired hypothyroidism Unspecified hypothyroidism documented in this encounter [facility] [employer] Phone: Evaluation note Note Date & Type Note Facility Evaluation note Diagnosis Acquired [facility]othy[facility] B[facility]ric surgery status - P [...] FoundDocuments on File Type Date Recorded Patient Pet Counselor Expl anation Advance Directives and Living Will Latest Code Status on File Code Status Date Activated Date Inactivated Comments Full Code 04/30/2017 12:41 PM 05/02/2017 7:17 PM Documents on File Type Date Recorded Patient Pet Counselor Expl anation Advance Directives and Living Will Power of Oil Well Cable Tool 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 [facility] POSTOP BARIATRIC VISIT PATIENT [...] W/ BIOPSY; Surgeon: Behzad Hu MD; Location: [facility]; Service: GASTRIC SLEEVE BYPASS LAPAROSCOPIC WITH EGD N/A 04/30/2017 Procedure: LAPAROSCOPIC SLEEVE GASTRECTOMY HIATAL HERNIA REPAIR LIVER BIOPSY ESOPHAGOGASTRODUODENOSCOPY; Surgeon: Behzad Hu MD; Location: [facility] Main OR; Service: Social History Social History [...] (40 mg total) by mouth daily. pediatric [id number] (flintstones complete) Chew Chew and Swallow Take [...] Hu MD - 09/12/2019 4:49 PM EST [facility] POSTOP BARIATRIC VISIT PATIENT [...] W/ BIOPSY; Surgeon: Behzad Hu MD; Location: [facility]; Service: GASTRIC SLEEVE BYPASS LAPAROSCOPIC WITH EGD N/A 04/30/2017 Procedure: LAPAROSCOPIC SLEEVE GASTRECTOMY HIATAL HERNIA REPAIR LIVER BIOPSY ESOPHAGOGASTRODUODENOSCOPY; Surgeon: Behzad Hu MD; Location: [facility] Main OR; Service: Social History Socioeconomic History [...] file Gets together: Not on file Attends catholic service: Not on file Active member of [...] HEAD/NECK TISSUES,REAL TIME Loli Matias MD [address] [place] [address] Specialty Diagnoses / Procedures Referred By Contac t Referred To Contact Radiology Diagnoses Acquired hypothyroidism Procedures US HEAD NECK SOFT TISSUE THYROID Nissa Lo APRN - JULES [address] [address] Referral ID Status Reason Start Date Expiration Date V isits Requested Visits Authorized [id number] Pending Review 11/09/2022 11/09/2023 1 1 Hospital [...] ALVARADO DO Consulting Physician - CAPRICE GUSTAFSON, [address] [facility] Course Pt is a 33 F [...] --- --- From: Ac [employer] To: SUKHDEV SCWHARTZ Sent: 05/29/20 02:30:27 AM EDT Subject: Discharge [...] All Problems Ovarian dysfunction / SNOMED CT 94715835 / Confirmed Hypothyroidism / SNOMED CT 12668331 / Confirmed Pancreatitis / SNOMED CT 028639421 / Confirmed Physical Examination Vital Signs 07/18/2019 [...] All Problems Ovarian dysfunction / SNOMED CT 07724120 / Confirmed Hypothyroidism / SNOMED CT 57914434 / Confirmed Incomplete miscarriage / SNOMED CT 026164159 / Confirmed missed Pancreatitis / SNOMED CT 932536980 / Confirmed Physical Examination Vital Signs 10/20/2019 [...] All Problems Ovarian dysfunction / SNOMED CT 43124197 / Confirmed Hypothyroidism / SNOMED CT 19028252 / Confirmed Pancreatitis / SNOMED CT 907846335 / Confirmed Physical Examination Vital Signs 07/18/2019 [...] All Problems Ovarian dysfunction / SNOMED CT 69145031 / Confirmed Hypothyroidism / SNOMED CT 01277664 / Confirmed Incomplete miscarriage / SNOMED CT 842447776 / Confirmed missed Pancreatitis / SNOMED CT 982807536 / Confirmed Physical Examination Vital Signs 10/20/2019 [...] section and content) DATE CREATED AUTHOR 04/15/2018 [facility] DATE CREATED AUTHOR AUTHOR'S ORGANIZ ATION 07/23/2019 [facility] DATE CREATED AUTHOR AUTHOR'S ORGANIZ ATION 09/13/2019 [facility] DATE CREATED AUTHOR AUTHOR'S ORGANIZ ATION 06/18/2020 [facility] DATE CREATED AUTHOR AUTHOR'S ORGANIZ ATION [...] HEAD/NECK TISSUES,REAL TIME Loli Matias MD [address] [place] [address] Reason Comments Follow-up GS 04/30/17. Prop wt: 350. 10/24/18 229lbs 09/12/19 wt= 240lbs Reason Onset Date Comments Medication Refill 11/19/2020 Specialty Diagnoses / Procedures Referred By Contac t Referred To Contact Radiology Diagnoses Acquired hypothyroidism Procedures US HEAD NECK SOFT TISSUE THYROID Nissa Lo, HOSPITAL 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 [address] [place] [address] Referral ID Status Reason Start Date Expiration Date V isits Requested Visits Authorized [id number] Pending Review 11/09/2022 11/09/2023 1 1 Care Teams (unrecognized sec tion and content) Mapping Specialist Relationship Specialty Start Date End Date Loli Matias MD [address] [place] [address] PCP - General 07/24/16 Mapping Specialist Relationship Specialty Start Date End Date Loli Matias MD [address] [place] [address] PCP - General 07/24/16 Mapping Specialist Relationship Specialty Start Date End Date Loli Matias MD [address] [place] [address] PCP - General 07/24/16 FOR RECORDS [...] BE BASED ON THE PRIMARY CLINICAL RECORDS. [employer] [facility]. provides no warranty or guarantee of the accuracy or completeness of information in this document.
== END 2024-02-09 07:26 | disposition home or self-care (01) ==
LOC: VC 07:26
PROVIDERS: PCP Radiology Diagnostic Radiology; Visit Provider Radiology Diagnostic Radiology
DX: I83.813 Varicose veins of bilateral lower extremities with pain (principal)
CPT/HCPCS: 36466

== ENCOUNTER 2024-02-14 07:28 | Outpatient (OUT) | payer OTHER, SELFPAY ==
--- NOTE | 2024-02-14 07:34 | VEIN_ITS ---
Patient Name: SUKHDEV WATERMAN MR#: [id number] : 1985 Exam Date: 02/14/2024 Ordering Doctor: DR DREW MCBRIDE M.D. RADIOLOGY REPORT PROCEDURE: VC EXT VENOUS RT LMTD COMPARISON: VC EXT VENOUS RT LMTD, 01/26/2024. INDICATIONS: I80.01 Phlebitis of superficial veins of right lower extremity TECHNIQUE: Lower extremity arnett scale and Duplex Doppler evaluation of the deep venous system from the inguinal ligament through the calf veins. FINDINGS: REGION: Right lower extremity. THROMBI: Negative for DVT. Chemically induced thrombus in varicose veins right lower leg. COMPRESSIBILITY: Non-compressible segments corresponding to thrombus FLOW: Areas of no flow corresponding to thrombus OTHER: Patent varicose vein mid medial lower leg measures 2.6 mm. CONCLUSION: 1. Successful post ablation occlusion right leg treated branch saphenous varicosities. Dictated by: Eder Beltran M.D. on 02/14/2024 at 08:23 Approved by: Eder Beltran M.D. on 02/14/2024 at 08:27
--- NOTE | 2024-02-14 07:34 | VEIN_ITS ---
Patient Name: SUKHDEV WATERMAN MR#: [id number] : 1985 Exam Date: 02/14/2024 Ordering Doctor: DR DREW MCBRIDE M.D. RADIOLOGY REPORT PROCEDURE: [facility] EST L[facility] - OFFICE VISIT FOLLOW UP [facility] PROGRESS NOTES: The patient reports improvement in leg symptoms. There has been interval reduction in varicosities. The patient has followed our recommendations to walk 20-30 minutes once or twice per day since the procedure. Physical exam demonstrates decrease in varicosities of the leg. Persistent spider veins are identified along the right leg, and superficial varicosities along the left leg. Review of the ultrasound performed the same day demonstrates occlusive thrombus extending throughout the treated vein(s), see separate report, consistent with a successful ablation. No thrombus extending into or beyond the saphenofemoral junction. The patient expressed a desire to proceed with treatment of remaining incompetent varicosities. The patient was informed that treatment was a process and would require several procedures/sessions. VEIN/[facility] EST TD IMPRESSION: 1. Successful ablation of the right leg treated branch saphenous vein(s). 2. Persistent left leg varicose veins and lower extremity symptoms. PLAN: Microfoam chemical ablation of left leg branch saphenous varicosities. Nurse notes, history and physical were reviewed and confirmed, see attached forms. The nurse was present throughout the physical exam and consultation Dictated by: Eder Beltran M.D. on 02/14/2024 at 08:27 Approved by: Eder Beltran M.D. on 02/14/2024 at 08:28
--- OUTSIDE RECORDS SUMMARY | 2024-02-14 07:34 | XMS_ITS | CCD ---
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 Name Role Phone Unavailable Unavailable Unavailable VerLoli [...] Care Provider Loli Matias Primary Care Provider [phone] RANA, BEHZAD RAJENDRASINH Attending Unavail able LOLI [...] Propensity to adverse reactions to drug 04-26-2019 [place], [place] (5 sources) levoFLOXacin Drug Allergy 04-26-2019 [place] (3 sources) Penicillins Propensity to adverse reactions to drug 12-01-2011 [place] (3 sources) Seasonal allergy Propensity to adverse reactions to substance 11-18-2021 [facility] (2 sources) Penicillins Propensity to adverse reactions to drug 12-01-2011 [facility] (2 sources) Pollen Propensity to adverse reactions to drug 04-26-2019 [facility] Work Phone: Medications Current Medications Medication [...] Start: 04-23-2016 take 2 tablets by mo [facility] every eight hours as needed [...] Active Start: 11-18-2021 [facility] pantoprazole (PROTONIX) 40 MG [...] Class(es) Dates Sig (Normalized) Sig (Original) pediatric ckkunkur-ddep-vjv (flintstones complete) Chew (2 sources) pediatric jcuheupb-wxuv-bjn (flintstones complete) Chew Chew and Swallow Take two daily . Active Pediatric Multivitamin With Iron And Other Minerals Chewable Tablet (1 source) pediatric seayetpr-foam-ufs (flintstones complete) Chew Chew and Swallow Take [...] 04-03-2023 Thyroxine, Free 1.4 ng/dL Normal 0.9-1.7 [facility] Comment on above: Performed By: #### F T4 #### [address] [id number] [employer] Bever[employer] Cashier: Jarek Branch MD #### TSH #### [facility] [address] [place] [address] Food And Beverage Cashier: Drew Lee MD [facility] TSH [Mass/Vol] 0.83 [facility] Thyroid Stim. Horm.on 2022 Thyroid Stim. Horm. 0.83 uIU/mL Normal 0.30-5.00 [facility] Comment on above: Performed By: #### F T4 #### [address] [place], [place] [id number] [employer] Cashier: Jarek Branch MD #### TSH #### [facility] [address] [place] [address] Food And Beverage Cashier: Drew Lee MD US HEAD NECK SOFT [...] Villafuerte Jr., MD 11/11/22 Final result Normal [facility] No significant findings. No specific follow-up needed. [facility] EXAM: US HEAD NECK S [...] isthmus no longer seen. Thyroid echogenicity normal. [facility] Manny Villafuerte Jr., MD - [...] No significant findings. No specific follow-up needed. [employer] Phone: US HEAD NECK SOFT TISSUE THY ROIDOrdered By: Manny Villafuerte on 11-11-2022 [employer] Phone: US HEAD NECK SOFT TISSUE THY ROIDon 11-10-2022 Radiology Study observation (narrative) [employer] Phone: Coding Summary.on 05-31-2020 Coding Summary. CODING DATE: 020 FINAL [facility] STATUS: Home (Routine DC) PAYOR: Leela [...] Conception, Retained, Via Natural or Artificial Opening [id number] Control Bleeding in Davie Grijalva MD 05/27/2020 Genitourinary Tract, Via Natural or Artificial Opening 58473T4 Transfusion of Nonautologous Davie Grijalva MD 05/26/2020 Red Blood Cells into Peripheral Vein, Percutaneous Approach 95445Y5 Transfusion of Nonautologous Davie Grijalva MD 05/26/2020 Red Blood Cells into Peripheral Vein, Percutaneous Approach 16608X1 Transfusion of Nonautologous Davie Grijalva MD 05/26/2020 Red Blood Cells into Peripheral Vein, Percutaneous Approach 03283P4 Transfusion of Nonautologous Davie Grijalva MD 05/26/2020 Red Blood Cells into Peripheral Vein, Percutaneous Approach 38411C9 Transfusion of Nonautologous Davie Grijalva MD 05/26/2020 Frozen Plasma into Peripheral Vein, Percutaneous Approach 60486D3 Transfusion of Nonautologous Davie Grijalva MD 05/26/2020 Frozen Plasma into Peripheral Vein, Percutaneous Approach 89753E9 Transfusion of Nonautologous Davie Grijalva MD 05/27/2020 Red Blood Cells into Peripheral Vein, Percutaneous Approach NOTE: The code number assigned matches the documented diagnosis and / or procedure in the patient's chart. However, the narrative phrase printed from the coding software may appear abbreviated, or result in slightly different terminology. Coded By: Rae Milton Date Saved: 05/31/2020 11:[address] [facility] IntraOperative Documentson 0 05-31-2020 IntraOperative Documents [id number]:[address] [facility] Consent for Procedure/Surger yon 05-28-2020 Consent for Procedure/Surgery [id number]#[id number]:[address] [facility] Discharge Instructionson Discharge Instructions [id number]#[id number]:[address] [facility] Discharge Instructions Given Worseningon 05-28-2020 Discharge Instructions Given Worsening The following Patient Education Materials have been given to the patient: EducationMaterial Normal [facility] History and Physicalon 05-28 History and [...] Davie Grijalva MD, FACOG lkr Dictated: 05/26/2020 #[id number] Typed 05/27/2020 #[id number] cc: Davie Grijalva MD, MICHAEL [facility] Comment on above: Result Comment: Elec tronically Signed By: Rudi GUSTAFSON, Davie Duong\.br\Date and Time Signed: 05/28/20 08:12 EDT Inpatient Clinical Summaryon 05-28-2020 Inpatient Clinical Summary [place] [id number] Clinical Summary Person Information Name: SUKHDEV SCHWARTZ St[facility] Age: 34 Years : 1985 Sex: Female PCP: SONIA GUSTAFSON, LOLI Vela Marital Status: Phone: [phone] Race: White Ethnicity: Non- or Language: Italian Visit Id: Visit Reason: Nausea; Dizziness; Vaginal bleeding; VAG BLEEDING Speciality: Acuity: Other Enc Type: Inpatient Med Service: Obstetrics Arrival: 05/26/2020 11:09:13 Discharge: 05/28/2020 08:40:00 Dispo Type: Home (Routine DC) Address: [address] [id number] Provider Notes: Diagnosis: 1:Miscarriage; 2:Retained products of [...] range between ( 80.0 and 100.0 ) [place] Auto: 6.7 % -- Normal range between ( 4.0 and 14.0 ) MPV: 7.4 fL -- Normal range between ( 6.4 and 10.8 ) Neutro Auto: 68.3 % -- Normal range between ( 36.0 and 75.0 ) Platelet: 278.0 E9/L -- Normal range between ( 150.0 and 500.0 ) WBC: 7.0 E9/L -- Normal range between ( 4.0 and 11.0 ) [place] Absolute: 0.5 E9/L -- Normal range between [...] Follow up: With: Address: When: Dr. Grijalva [phone] Within 1 to 2 weeks Comments: Call for any problems. Patient Education Information: Menorrhagia Normal [facility] Inpatient Patient Summaryon 05-28-2020 Inpatient Patient Summary [place] [id number] Patient Discharge Instructions PERSON INFORMATION Name: SUKHDEV [...] Follow up: With: Address: When: Dr. Grijalva [phone] Within 1 to 2 weeks Comments: Call [...] hospitalization. HOME CARE INSTRUCTIONS ? Only take dfyy-tvn-ulbrrmf or prescription medicines as directed by your [...] Document Reviewed: 03/25/2014 ExitCare? Patient Information ?2015 [employer]. This information is not intended to replace advice given to you by your health care provider. Make sure you discuss any questions you have with your health care provider. Medication Leaflets: Thank you for choosing [facility] Normal [facility] IntraOperative Documentson 0 8-11-2020 IntraOperative Documents [id number]:[address] [facility] Operative Reporton 0 Operative Report Date [...] Davie Grijalva MD, FACOG lkr Dictated: 05/27/2020 #[id number] Typed: 05/27/2020 #[id number] cc: Davie Grijalva MD, MICHAEL [facility] Comment on above: Result Comment: Elec tronically [...] q6hr, # 15 tab(s), Refills(s) 0, Pharmacy: [facility] #16 Documented Medications Documented Multivitamins: 1 tab(s), [...] list: All Problems Pancreatitis / SNOMED CT 622706046 / Confirmed Incomplete miscarriage / SNOMED CT 518476925 / Confirmed missed Ovarian dysfunction / SNOMED CT 98296417 / Confirmed Hypothyroidism / SNOMED CT 24938485 / Confirmed Resolved: / SNOMED CT 472278323 Resolved: / SNOMED CT 516097280 Resolved: / SNOMED CT 471449253 Resolved: / SNOMED CT 448287142 Physical Examination Intake and Output Denies significant [...] 0 . Respiratory: Adequate air exchange with synagogue of preoperative function.. Cardiovascular: Cardiovascular function is stable and has returned to preoperative levels.. Neurologic: Pt has returned to preoperative baseline.. Review / Management Condition: Stable. Assessment Anesthetic outcome No anesthetic complications noted. Plan Transfer/ Discharge: Patient can be discharged from PACU when criteria met. Condition good. Normal [facility] Comment on above: Result Comment: Elec [...] q6hr, # 15 tab(s), Refills(s) 0, Pharmacy: [facility] [place] #16 Documented Medications Documented Multivitamins: 1 tab(s), [...] list: All Problems Pancreatitis / SNOMED CT 971318823 / Confirmed Incomplete miscarriage / SNOMED CT 048629590 / Confirmed missed Ovarian dysfunction / SNOMED CT 95134726 / Confirmed Hypothyroidism / SNOMED CT 72833539 / Confirmed Physical Examination Intake and Output [...] (MAY [birth year]:) Respiratory: Adequate air exchange with synagogue of preoperative function.. Cardiovascular: Cardiovascular function is stable and has returned to preoperative levels.. Neurologic: Pt has returned to preoperative baseline.. Review / Management Condition: Stable. Assessment Anesthetic outcome No anesthetic complications noted. Plan Transfer/ Discharge: Patient can be discharged from PACU when criteria met. Condition good. [facility] Comment on above: Result Comment: Elec tronically [...] Davie Grijalva MD, FACOG gls Dictated: 05/27/2020 #[id number] Typed: 05/27/2020 #[id number] cc: Davie Grijalva MD, FACOG [facility] Comment on above: Result Comment: Elec tronically Signed By: Rudi GUSTAFSON, Davie Duong\.br\Date and Time Signed: 05/28/20 08:11 EDT Consent for Anesthesiaon Consent for Anesthesia [id number]#[id number]:127 [facility] FSPon 05-27-2020 Fibrin+Fibrinogen fragments (S) [Mass/Vol] <10 Normal <[address] [facility] Comment on above: Performed By: #### 1 3943870, 3254551, 2719448, 2897680, 2270053, 1895184, 79519258, 9503684 #### [facility] [address] [place] [address] Fibrin+Fibrinogen fragments (S) [Mass/Vol] <10 Normal <[address] [facility] Comment on above: Performed By: #### 1 8654179, 5013279, 9358682, 3322149, 4046056, 3016382, 68645136, 4535377 #### [facility] [address] [place] [address] Fibrin+Fibrinogen fragments (S) [Mass/Vol] <10 Normal <[address] [facility] Comment on above: Performed By: #### 1 0038034, 7380969, 7800346, 6521689, 3115207, 0935212, 59285203, 3142767 #### [facility] [address] [place] [address] Fibrinogenon 05-27-2020 Fibrinogen Coag (PPP) [Mass/Vol] 181 mg/dL Low 200-[address] [facility] Comment on above: Performed By: #### 1 0524147, 6345062, 2141160, 0832689, 4657855, 9217244, 47627419, 2397316 #### [facility] [address] [place] [address] Fibrinogen Coag (PPP) [Mass/Vol] 178 mg/dL Low 200-[address] [facility] Comment on above: Performed By: #### 1 5510460, 9784894, 9233021, 8135008, 5178798, 2600256, 64626995, 7876636 #### [facility] [address] [place] [address] Fibrinogen Coag (PPP) [Mass/Vol] 174 mg/dL Low 200-[address] [facility] Comment on above: Performed By: #### 1 3799613, 7152502, 6746906, 2011795, 4357849, 4926030, 18066559, 2925824 #### [facility] [address] [place] [address] Hct & Hgbon 05-27-2020 Hematocrit (Bld) [Volume fraction] 23.9 % Low 34.0-46.[address] [facility] Comment on above: Performed By: #### 1 2206402, 3438038, 9929030, 0039232, 0178768, 2322447, 54218612, 2385093 #### [facility] [address] [place] [address] Hemoglobin (Bld) [Mass/Vol] 8.3 g/dL Low 12.0-16.[address] [facility] Comment on above: Performed By: #### 1 4391452, 1388939, 4197068, 3691234, 0131810, 3004622, 75704366, 9703360 #### [facility] [address] [place] [address] Hematocrit (Bld) [Volume fraction] 22.4 % Low 34.0-46.[address] [facility] Comment on above: Performed By: #### 1 5526527, 1319992, 2283537, 5786666, 5609074, 8288114, 27595061, 9001205 #### [facility] [address] [place] [address] Hemoglobin (Bld) [Mass/Vol] 7.8 g/dL Low 12.0-16.[address] [facility] Comment on above: Performed By: #### 1 2503181, 4154344, 6605110, 9423395, 0318925, 4174552, 56077439, 5056380 #### [facility] [address] [place] [address] Hematocrit (Bld) [Volume fraction] 26.2 % Low 34.0-46.[address] [facility] Comment on above: Performed By: #### 1 6511046, 8362599, 3882084, 5681117, 1255956, 6307604, 54725223, 0564114 #### [facility] [address] [place] [address] Hemoglobin (Bld) [Mass/Vol] 8.9 g/dL Low 12.0-16.[address] [facility] Comment on above: Performed By: #### 1 0357357, 9924533, 6718309, 8888747, 0755965, 1664830, 66173928, 4491280 #### [facility] [address] [place] [address] IntraOperative Documentson 0 05-27-2020 IntraOperative Documents [id number]:[address] [facility] Main OR Intraoperative Recor don 05-27-2020 Main OR Intraoperative Record IntraOp Document Type FT Summary Primary Physician: Davie Grijalva MD Finalized Date/Time: 05/27/20 13:44:47 Pt. Name: SUKHDEV SCHWARTZ Antoni Mo/Sex: 1985 Female Med Rec #: [id number] Physician: Davie Grijalva MD Financial #: [id number] Pt. 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 Yes Last Modified By: Rean Castelan RN 05/26/20 20:06:15 Post-Care Text: The [...] and tissue Entry 1 Skin Integrity Intact, [place], Warm, and Skin Abnormality No Dry, Bruised [...] RN, NADYAOR, Rasheeda RN, NADYAOR, Matilde, Armaan COMPUTER SYSTEMS SUPPORT SPECIALIST, Armaan Clayton COMPUTER SYSTEMS SUPPORT SPECIALIST, Mónica Mónica Outcomes Met? Yes Yes [...] Patient Status Stable Skin. Condition Bruised, Intact, [place], Description same as preop Warm, and Dry [...] BLANKET MISTRAL AIR Quantity 1 Aid TORSO [[id number]][F] Fluid/[place] Unit Mistral warming system Setting 43c, high Body Site Upper anterior torso Last Modified By: Rena Castelan RN 05/26/20 20:15:53 Case Comments Finalized By: Juanita Stein CST Document Signatures Signed By: Rena Castelan RN 05/26/20 20:16 Juanita Stein CST 05/27/20 13:[address] [facility] PACU Recordon 05-27-2020 PACU Record [id number]:[address] [facility] PT & PTTon 05-27-2020 aPTT Coag (PPP) [Time] 24.6 second(s) Low 25.1-36.[address] [facility] Comment on above: Order Comment: Order Added by Discern Expert. Result Comment: Hepa rin therapeutic range (represented by Anti-Factor Xa activity of 0.2 - 0.4 U/mL) corresponds to PTT of 56.6 - 109.0 sec. Performed By: #### 1 5746786, 5402231, 5337554, 0800061, 0055593, 2527524, 68342112, 7548666 #### [facility] [address] [place] [address] INR Coag (PPP) [Relative time] 1.1 {INR} [facility] Comment on above: Order Comment: Order Added by Discern Expert. Result Comment: INR results are specifically intended to assess patients stabilized on long-term Anticoagulation therapy suggested INR?s ?Less Intensive Anticoagulation? 2.0 ? 3.0 Conventional Range 3.0 ? 4.5 Performed By: #### 1 6065017, 7009674, 4172710, 8896668, 0902616, 0141954, 23160460, 5990926 #### [facility] [address] [place] [address] PT Coag (PPP) [Time] 12.6 second(s) Normal 10.2-12.[address] [facility] Comment on above: Order Comment: Order Added by Discern Expert. Performed By: #### 1 6526518, 2095030, 8614123, 5477472, 7532797, 2248702, 05047539, 4627075 #### [facility] [address] [place] [address] aPTT Coag (PPP) [Time] 25.1 second(s) Normal 25.1-36.[address] [facility] Comment on above: Result Comment: Hepa rin therapeutic range (represented by Anti-Factor Xa activity of 0.2 - 0.4 U/mL) corresponds to PTT of 56.6 - 109.0 sec. Performed By: #### 1 5536872, 8247735, 8753488, 5573197, 4588521, 1344237, 61819533, 5715786 #### [facility] [address] [place] [address] INR Coag (PPP) [Relative time] 1.2 {INR} [facility] Comment on above: Result Comment: INR results are specifically intended to assess patients stabilized on long-term Anticoagulation therapy suggested INR?s ?Less Intensive Anticoagulation? 2.0 ? 3.0 Conventional Range 3.0 ? 4.5 Performed By: #### 1 2767163, 5122709, 6686462, 6599289, 2044813, 4763755, 21757857, 9098528 #### [facility] [address] [place] [address] PT Coag (PPP) [Time] 13.5 second(s) High 10.2-12.[address] [facility] Comment on above: Performed By: #### 1 0289781, 1340013, 0674097, 3377994, 1108323, 9039583, 43552743, 7774251 #### [facility] [address] [place] [address] aPTT Coag (PPP) [Time] 24.5 second(s) Low 25.1-36.[address] [facility] Comment on above: Result Comment: Hepa rin therapeutic range (represented by Anti-Factor Xa activity of 0.2 - 0.4 U/mL) corresponds to PTT of 56.6 - 109.0 sec. Performed By: #### 1 0003436, 1548735, 6120751, 5411679, 9714077, 6868005, 33754406, 4809749 #### [facility] [address] [place] [address] INR Coag (PPP) [Relative time] 1.2 {INR} [facility] Comment on above: Result Comment: INR results are specifically intended to assess patients stabilized on long-term Anticoagulation therapy suggested INR?s ?Less Intensive Anticoagulation? 2.0 ? 3.0 Conventional Range 3.0 ? 4.5 Performed By: #### 1 1851615, 7799255, 9686807, 2135146, 7602898, 9952015, 40654222, 3132441 #### [facility] [address] [place] [address] PT Coag (PPP) [Time] 14.0 second(s) High 10.2-12.[address] [facility] Comment on above: Performed By: #### 1 4794887, 7603880, 6056684, 5867220, 5929045, 8080652, 69721970, 8311402 #### [facility] [address] [place] [address] ABO/Rhon 05-26-2020 ABO/Rh Positive [facility] Comment on above: Performed By: #### 1 7327584, 6268821, 5717133, 1266267, 6745976, 4672979, 94994686, 3504591 #### [facility] [address] [place] [address] ABO/Rh History Checkon 05-26 ABO/Rh History Check Verified Hx Blood Type Normal [facility] Comment on above: Performed By: #### 1 0872591, 1209268, 0689202, 0424086, 6823341, 6476934, 64722760, 9492698 #### [facility] [address] [place] [address] ABSCon 05-26-2020 ABSC Gel Interp Negative Normal [facility] Comment on above: Performed By: #### 1 5269973, 5503938, 1188240, 3599462, 6815791, 4904214, 73381609, 9805270 #### [facility] [address] [place] [address] Auto Diffon 05-26-2020 Basophils/100 WBC (Bld) 0.8 % Normal 0.0-2.[address] [facility] Comment on above: Order Comment: Order Added by Discern Expert. Performed By: #### 1 1406047, 2632938, 4599841, 9351331, 8361718, 3565671, 45374255, 9134689 #### [facility] [address] [place] [address] Basophils/Leukocyte s Auto (Bld) [Pure # fraction] 0.1 E9/L Normal 0.0-0.[address] [facility] Comment on above: Order Comment: Order Added by Discern Expert. Performed By: #### 1 8786370, 3484253, 0864923, 3259395, 0414417, 5227323, 49899672, 4786190 #### [facility] [address] [place] [address] Eosinophils/100 WBC (Bld) 2.0 % Normal 0.0-8.[address] [facility] Comment on above: Order Comment: Order Added by Discern Expert. Performed By: #### 1 6602289, 4642520, 1480909, 1331294, 3865351, 7367891, 31112669, 2565291 #### [facility] [address] [place] [address] Eosinophils/Leukocy dariel Auto (Bld) [Pure # fraction] 0.1 E9/L Normal 0.0-0.[address] [facility] Comment on above: Order Comment: Order Added by Discern Expert. Performed By: #### 1 9756186, 0635235, 3867566, 1845942, 9667542, 3413750, 24830628, 5326884 #### [facility] [address] [place] [address] Lymphocytes/100 WBC (Bld) 22.2 % Normal 14.0-50.[address] [facility] Comment on above: Order Comment: Order Added by Discern Expert. Performed By: #### 1 6837566, 1009599, 7182693, 6228446, 0463649, 2929393, 28806279, 2503259 #### [facility] [address] [place] [address] Lymphocytes/Leukocy dariel Auto (Bld) [Pure # fraction] 1.6 E9/L Normal 1.0-4.[address] [facility] Comment on above: Order Comment: Order Added by Discern Expert. Performed By: #### 1 4803076, 1659892, 7138417, 4151943, 5554646, 7954444, 52539862, 6243361 #### [facility] [address] [place] [address] Monocytes/100 WBC (Bld) 6.7 % Normal 4.0-14.[address] [facility] Comment on above: Order Comment: Order Added by Discern Expert. Performed By: #### 1 6910532, 5329149, 4329505, 4646792, 0051058, 5739046, 43946605, 3432119 #### [facility] [address] [place] [address] Monocytes/Leukocyte s Auto (Bld) [Pure # fraction] 0.5 E9/L Normal 0.2-1.[address] [facility] Comment on above: Order Comment: Order Added by Discern Expert. Performed By: #### 1 4710060, 9855791, 7358812, 8114834, 0655651, 6353353, 39370970, 2819653 #### [facility] [address] [place] [address] Neutrophils/100 WBC (Bld) 68.3 % Normal 36.0-75.[address] [facility] Comment on above: Order Comment: Order Added by Discern Expert. Performed By: #### 1 7939155, 4252263, 3639549, 0923059, 0388840, 1301266, 72916308, 3898655 #### [facility] [address] [place] [address] Neutrophils/Leukocy dariel Auto (Bld) [Pure # fraction] 4.8 E9/L Normal 2.0-7.[address] [facility] Comment on above: Order Comment: Order Added by Discern Expert. Performed By: #### 1 9677394, 4976169, 6436932, 5935373, 2173347, 9167968, 49534855, 2722162 #### [facility] [address] [place] [address] B hCG Qualon 05-26-2020 Beta hCG Ql Positive Normal [facility] Comment on above: Result Comment: mary ected Performed By: #### 1 3979406, 1705729, 0399414, 5490064, 1975577, 0308891, 35025403, 4937899 #### [facility] [address] [place] [address] BMPon 05-26-2020 Creatinine [Mass/Vol] 0.7 mg/dL Normal 0.5-1.[address] [facility] Comment on above: Performed By: #### 1 8883583, 4979026, 6771883, 7996789, 1602915, 3975140, 68839519, 4153625 #### [facility] [address] [place] [address] Urea nitrogen [Mass/Vol] 15 mg/dL Normal 5-[address] [facility] Comment on above: Performed By: #### 1 1070421, 1931386, 4258956, 3160045, 6139967, 6625877, 21925896, 6319682 #### [facility] [address] [place] [address] Urea nitrogen/Creatinine [Mass ratio] 21 No Units High 10-[address] [facility] Comment on above: Performed By: #### 1 7210280, 8578442, 2824217, 5886555, 7655879, 1817433, 95525072, 3992243 #### [facility] [address] [place] [address] Anion gap [Moles/Vol] 12 mmol/L Normal 6-[address] [facility] Comment on above: Performed By: #### 1 2017058, 1136416, 5593508, 0131448, 4668086, 0232139, 50700526, 3411262 #### [facility] [address] [place] [address] Calcium [Mass/Vol] 9.4 mg/dL Normal 8.9-11.[address] [facility] Comment on above: Performed By: #### 1 2743307, 2439305, 8304702, 4709290, 3955259, 8209753, 81415523, 7773995 #### [facility] [address] [place] [address] Chloride [Moles/Vol] 105 mmol/L Normal 101-[address] [facility] Comment on above: Performed By: #### 1 3306054, 5081106, 9463445, 1554361, 3368937, 7033931, 16702184, 5954433 #### [facility] [address] [place] [address] CO2 [Moles/Vol] 26 mmol/L Normal 21-31 [facility] Comment on above: Performed By: #### 1 0842830, 7405113, 2345027, 6965086, 8392314, 0745809, 03250597, 8920799 #### [facility] [address] [place] [address] Glucose [Mass/Vol] 101 mg/dL Normal 55-[address] [facility] Comment on above: Result Comment: If t his glucose result represents a fasting glucose, interpretation should refer to the following reference range: 55-99 mg/dL Performed By: #### 1 5313107, 4003424, 8305381, 7850762, 2837028, 0751904, 44357764, 6965653 #### [facility] [address] [place] [address] Potassium [Moles/Vol] 3.9 mmol/L Normal 3.5-5.[address] [facility] Comment on above: Performed By: #### 1 2933451, 7163539, 1841318, 3561937, 2913102, 9587381, 06385843, 3331248 #### [facility] [address] [place] [address] Sodium [Moles/Vol] 139 mmol/L Normal 135-[address] [facility] Comment on above: Performed By: #### 1 2302782, 8645278, 4955484, 9953422, 2142426, 0478849, 96383252, 5882997 #### [facility] [address] [place] [address] [facility] HCG.beta subunit Qn 18 m[IU]/mL High 1-3 [facility] Comment on above: Result Comment: GEST ATIONAL AGE HCG RANGE (mIU/mL) NON- <1-3 0.2-1 WEEKS 5-50 1-2 WEEKS 50-500 2-3 WEEKS 100-5,000 3-4 WEEKS 500-10,000 4-5 WEEKS 1,000-50,000 5-6 WEEKS 10,000-100,000 6-8 WEEKS 15,000-200,000 8-12 WEEKS 10,000-100,000 Performed By: #### 1 4522774, 4401651, 6616648, 3168870, 1438795, 9237716, 45236591, 8151913 #### [facility] [address] [place] [address] Blood Bank ID#on 05-26-2020 BBID# [id number] [facility] Comment on above: Performed By: #### 1 9771908, 1254942, 5324995, 7134387, 4899005, 2887991, 92286951, 9660332 #### [facility] [address] [place] [address] CBC w/ Auto Diffon 0 Erythrocyte distribution width (RBC) [Ratio] 12.4 % Normal 10.9-14.[address] [facility] Comment on above: Performed By: #### 1 0023698, 1289780, 3461784, 7104135, 7885488, 2314654, 11275726, 6860122 #### [facility] [address] [place] [address] Hematocrit (Bld) [Volume fraction] 36.6 % Normal 34.0-46.[address] [facility] Comment on above: Performed By: #### 1 4207475, 1638718, 9900164, 6169648, 8309456, 8803735, 02963103, 2430747 #### [facility] [address] [place] [address] Hemoglobin (Bld) [Mass/Vol] 12.2 g/dL Normal 12.0-16.[address] [facility] Comment on above: Performed By: #### 1 6316048, 3947842, 2184950, 4575873, 3994729, 8842480, 72548677, 2924846 #### [facility] [address] [place] [address] MCH (RBC) [Entitic mass] 29.8 pg Normal 27.0-34.[address] [facility] Comment on above: Performed By: #### 1 0033444, 6183294, 4882970, 9009757, 0187828, 2848309, 43077708, 1789177 #### [facility] [address] [place] [address] MCHC (RBC) [Mass/Vol] 33.3 g/dL Normal 31.4-36.[address] [facility] Comment on above: Performed By: #### 1 6616052, 7473868, 6001023, 9552620, 2432283, 6513509, 65420702, 6637035 #### [facility] [address] [place] [address] MCV (RBC) [Entitic vol] 89.5 fL Normal 80.0-100.[address] [facility] Comment on above: Performed By: #### 1 3814457, 9731847, 9815292, 3677237, 3787892, 6049482, 53866836, 2565695 #### [facility] [address] [place] [address] Platelet mean volume (Bld) [Entitic vol] 7.4 fL Normal 6.4-10.[address] [facility] Comment on above: Performed By: #### 1 0708439, 5265415, 4934522, 5783116, 9238364, 1379775, 11570126, 0537407 #### [facility] [address] [place], [place] [address] Platelets (Bld) [#/Vol] 278.0 E9/L Normal 150.0-500.[address] [facility] Comment on above: Performed By: #### 1 8495413, 7537654, 5390774, 6009755, 7584733, 4625696, 27176367, 5350260 #### [facility] [address] [place], [place] [address] RBC (Bld) [#/Vol] 4.1 E12/L Low 4.3-5.[address] [facility] Comment on above: Performed By: #### 1 5492055, 7531397, 7250896, 9681862, 2068125, 2776899, 94160548, 8270305 #### [facility] [address] [place] [address] WBC corrected for nucl RBC Auto (Bld) [#/Vol] 7.0 E9/L Normal 4.0-11.[address] [facility] Comment on above: Performed By: #### 1 9186448, 8620727, 8827783, 3330145, 9261928, 7643935, 75226790, 9359169 #### [facility] [address] [place], [place] [address] Consent for Blood Transfusio non 05-26-2020 Consent for Blood Transfusion [id number]#1.00CD:[address] [facility] Consent for Treatmenton Consent for Treatment [id number]#1.00CD:[address] [facility] ED Clinical Summaryon 2019 ED Clinical Summary (Inserted Image. Sachi ble to display) [address] [address] ED Clinical Summary Person Information Name: SUKHDEV SCHWARTZ [facility] Age: 34 Years : 1985 Sex: Female Language: Italian PCP: LOLI MATIAS MD Marital Status: Phone: [phone] MRN: Visit Id: Visit Reason: Nausea; Dizziness; [...] 05/26/2020 12:32:48 ADDRESS: [address] [facility] [id number] [facility] DOC NOTES: MEDICAL INFORMATION: Prescriptions Given: [...] Follow up: With: Address: When: Davie Grijalva [facility] [address], [facility] [address], [place] [id number] [facility] (1) 05/27/2020 8:45 AM Comments: Return to ED if symptoms worsen. Drink lots of fluids. Return if you have worsening bleeding, pass out, chest pain, shortnes of breath or any other problems. DIAGNOSIS: 1:Menorrhagia Normal [facility] ED Note-Physicianon 05-26-20 ED Note-Physician Basic [...] % (05/26/20:25:00) Lymph Auto: 22.2 % (05/26/20::) [place] Auto: 6.7 % (05/26/20:25:00) Eos Auto: 2 % (05/26/20::) Basophil Auto: 0.8 % (05/26/20::) Neutro Absolute: 4.8 E9/L (05/26/20:25:00) Lymph Absolute: 1.6 E9/L (05/26/20:25:) [place] Absolute: 0.5 E9/L (05/26/20::) Eos Absolute: 0.1 [...] Ultrasound Performed Signed By: Faraz Carter DO [facility] Comment on above: Result Comment: Elec tronically [...] hospitalization. HOME CARE INSTRUCTIONS ? Only take xvuf-mgj-wthmlqn or prescription medicines as directed by your [...] Document Reviewed: 03/25/2014 ExitCare? Patient Information ?2015 [employer]. This information is not intended to replace advice given to you by your health care provider. Make sure you discuss any questions you have with your health care provider. Normal [facility] ED Patient Summaryon 020 ED Patient Summary (Inserted Image. Sachi ble to display) [place] [id number] Patient Discharge Instructions Person Information Name: SUKHDEV SCHWARTZ Age: 34 Years Arrival Date: 05/26/2020 11:09:13 Discharge Diagnosis: 1:Menorrhagia Primary Care Physician: LOLI MATIAS MD Provider Information Primary Provider: Carline Cain DO Advanced Director Of Sales Marketing:None The exam and treatment you received in the Emergency Department were for an urgent problem and are not intended as complete care. It is important that you follow up with a doctor, nurse practitioner, or physician?s high school assistant football coach for ongoing care. If your symptoms become worse or you do not improve as expected and you are unable to reach your usual health care provider, you should return to the Emergency Department. We are available 24 hours a day. SUKHDEV SCHWARTZ has been given the following list of patient education materials, prescriptions and follow-up instructions: Follow-up Instructions: With: Address: When: Davie ISSA, [facility] [address] [place] [phone] [facility] (1) 05/27/2020 8:45 AM Comments: Return [...] opioids can be used to help relieve izllxnaa-qj-gfwdeq pain and are often prescribed following a [...] be struggling with addiction, tell your health critical care clinical nurse specialist and ask for guidance or call [facility]?S National Helpline at 0-134-531-ECRN. v Source: [place] Department of Health and Human Services/Center for Disease Control & Prevention [facility] Medications Given: Medication Dose Route [...] Comment: Pharmacy Information: Thank you for choosing [facility] Patient Education Materials: Menorrhagia Menorrhagia is the [...] hospitalization. HOME CARE INSTRUCTIONS ? Only take xkhx-joe-zvwwlfb or prescription medicines as directed by your [...] Document Reviewed: 03/25/2014 ExitCare? Patient Information ?2015 Alex [employer] Ani. This information is not intended to replace advice given to you by your health care provider. Make sure you discuss any questions you have with your health care provider. JAMES Bain BRITTANY F , have received the following patient education materials/instructions and have verbalized understanding: Patient Education Materials: Menorrhagia Follow-up Instructions: With: Address: When: Davie Grijalva [address] [place] [address], [place] [address], [place] [address] [facility] (1) 05/27/2020 8:45 AM Comments: Return to ED if symptoms worsen. Drink lots of fluids. Return if you have worsening bleeding, pass out, chest pain, shortnes of breath or any other problems. Patient Signature __ Date Clinician/Nurse Signature Date 05/26/2020 12:32:[address] [facility] FFPon 05-26-2020 # of Units [address] [facility] Comment on above: Result Comment: 2019 17:56 [id number] Blood product ready and called to Jaki/OB at 05/26/2020 17:56:49 EDT by AL. Performed By: #### 1 2570954, 6443076, 0372491, 6892494, 4735519, 2942581, 23241491, 2062829 #### [facility] [address] [place] [address] Date Required [id number] [facility] Comment on above: Performed By: #### 1 3587813, 1765686, 8023214, 9238962, 6431334, 5643036, 50359440, 6267827 #### [facility] [address] [place] [address] Order to Transfuse YES [facility] Comment on above: Performed By: #### 1 9409514, 4786844, 2268880, 8847361, 5950963, 1612721, 93919462, 1496473 #### [facility] [address] [place] [address] Hematocriton 05-26-2020 Hematocrit (Bld) [Volume fraction] 27.0 % Low 34.0-46.[address] [facility] Comment on above: Performed By: #### 1 0328900, 0721033, 9852728, 3285839, 4945051, 7031147, 11053692, 1103532 #### [facility] [address] [place] [address] Hemoglobinon 05-26-2020 Hemoglobin (Bld) [Mass/Vol] 9.0 g/dL Low 12.0-16.[address] [facility] Comment on above: Performed By: #### 1 5300337, 0617495, 8113393, 9190492, 0582293, 5847375, 85669712, 9332631 #### [facility] [address] [place] [address] Hep Func Panelon 05-26-2020 Albumin [Mass/Vol] 1.4 g/dL Normal 1.1-2.[address] [facility] Comment on above: Performed By: #### 1 1609052, 8855246, 6846783, 4194791, 2948823, 6105341, 38984627, 0609411 #### [facility] [address] [place] [address] Albumin [Mass/Vol] 4.1 g/dL Normal 3.3-5.[address] [facility] Comment on above: Performed By: #### 1 9228157, 4658137, 2459764, 4542708, 4269043, 8002830, 68923997, 8142129 #### [facility] [address] [place] [address] ALP [Catalytic activity/Vol] 47 Int._Unit/L Normal 21-[address] [facility] Comment on above: Performed By: #### 1 0648244, 3262924, 8536791, 7136461, 3590237, 3458839, 58702783, 7432913 #### [facility] [address] [place] [address] ALT No additional P-5'-P [Catalytic activity/Vol] 10 Int._Unit/L Normal 6-[address] [facility] Comment on above: Performed By: #### 1 1171710, 8635423, 5126158, 7834589, 9345696, 0100959, 57959563, 3298179 #### [facility] [address] [place] [address] AST [Catalytic activity/Vol] 12 Int._Unit/L Normal 5-[address] [facility] Comment on above: Performed By: #### 1 7657682, 1945180, 7431982, 5323608, 7112281, 0849613, 15539512, 4015575 #### [facility] [address] [place] [address] Bilirubin [Mass/Vol] 0.8 mg/dL Normal 0.0-1.[address] [facility] Comment on above: Performed By: #### 1 8037382, 9705165, 4351602, 1233026, 1105920, 7244836, 57687564, 6494596 #### [facility] [address] [place] [address] Bilirubin.direct [Mass/Vol] 0.7 mg/dL Normal 0.1-0.[address] [facility] Comment on above: Performed By: #### 1 6066489, 3254960, 1061492, 9303797, 0046470, 5783731, 22117557, 4578710 #### [facility] [address] [place] [address] Bilirubin.direct [Mass/Vol] 0.1 mg/dL Normal 0.1-0.[address] [facility] Comment on above: Performed By: #### 1 6287259, 2243441, 3917704, 9074457, 2316535, 4592853, 26745687, 0759308 #### [facility] [address] [place] [address] Globulin (S) [Mass/Vol] 2.9 g/dL Normal 1.4-4.[address] [facility] Comment on above: Performed By: #### 1 6230024, 5991158, 5413171, 2066646, 4456879, 5890777, 79134987, 0868799 #### [facility] [address] [place] [address] Protein [Mass/Vol] 7.0 g/dL Normal 6.0-7.[address] [facility] Comment on above: Performed By: #### 1 9831416, 4475987, 0464036, 3471003, 4365137, 7302104, 91606477, 0686131 #### [facility] [address] [place] [address] Main OR PACU I Recordon Main OR PACU I Record PACU Phase I Document Type FT Summary Primary Physician: Davie Grijalva MD Finalized Date/Time: 05/26/20 20:48:43 Pt. Name: SUKHDEV SCHWARTZ/Sex: 1985 Female Med Rec #: [id number] Physician: Davie Grijalva MD Financial #: [id number] Pt. Type: O Room/Bed: N410/01 Admit/Disch: 05/26/20 [...] By: Lauren Reed RN 05/26/20 20:[address] [facility] Main OR Preoperative Recordo n 05-26-2020 Main OR Preoperative Record Holding Area Document Type FT Summary Primary Physician: Davie Grijalva MD Finalized Date/Time: 05/26/20 20:04:05 Pt. Name: SUKHDEV SCHWARTZ /Sex: 1985 Female Med Rec #: [id number] Physician: Davie Grijalva MD Financial #: [id number] Pt. Type: O Room/Bed: [facility]/ Admit/Disch: 05/26/20 11:09:13 - Institution: Case [...] By: Rena Castelan RN 05/26/20 20:[address] [facility] Monitor Recordon 05-26-2020 Monitor Record [id number]#1.00CD:[address] [facility] Monitor Record [id number]#1.00CD:[address] [facility] Monitor Record [id number]#1.00CD:[address] [facility] Monitor Record [id number]#1.00CD:[address] [facility] Monitor Record [id number]#1.00CD:[address] [facility] Monitor Record [id number]#1.00CD:[address] [facility] PT & PTTon 05-26-2020 aPTT Coag (PPP) [Time] 30.1 second(s) Normal 25.1-36.[address] [facility] Comment on above: Result Comment: Hepa rin therapeutic range (represented by Anti-Factor Xa activity of 0.2 - 0.4 U/mL) corresponds to PTT of 56.6 - 109.0 sec. Performed By: #### 1 8192304, 1647237, 0320863, 5658482, 9741188, 9218388, 66371742, 1082167 #### [facility] [address] [place] [address] INR Coag (PPP) [Relative time] 1.1 {INR} [facility] Comment on above: Result Comment: INR results are specifically intended to assess patients stabilized on long-term Anticoagulation therapy suggested INR?s ?Less Intensive Anticoagulation? 2.0 ? 3.0 Conventional Range 3.0 ? 4.5 Performed By: #### 1 7718280, 4028529, 0231284, 1688103, 9135075, 7298188, 78474290, 3072566 #### [facility] [address] [place] [address] PT Coag (PPP) [Time] 12.5 second(s) Normal 10.2-12.[address] [facility] Comment on above: Performed By: #### 1 4617961, 2302368, 1949285, 9534835, 7056447, 7397981, 35262989, 4970735 #### [facility] [address] [place] [address] Progesteroneon 05-26-2020 Progesterone [Mass/Vol] 0.90 ng/mL [facility] Comment on above: Result Comment: REFE RENCE RANGE Males 0.14-2.06 ng/mL Non- Females Follicular 0.10-0.60 ng/mL Luteal 3.00-17.5 ng/mL Midluteal 3.30-18.6 ng/mL Post-Menopausal 0.10-0.40 ng/mL First Trimester 8.30-66.5 ng/mL Second Trimester 18.9-66.1 ng/mL Third Trimester 35.8-312.4 ng/mL Performed By: #### 1 3265567, 0457491, 0583133, 9116040, 2523278, 1999127, 73130505, 3839377 #### [facility] [address] [place] [address] Progress Note-Nurseon 2019 Progress Note-Nurse Blood obtained per Rhoda Grijalva order and patient taken to surgery. Blood given to Lauren in surgery. Normal [facility] Progress Note-Nurse Dr. Grijalva in at [facility] with pelvic tray and patient and patient begin to bleed heavily and pt heart rate decreased to 50's and patient BP registered in the 60's. pt pale and clammy. Pt in Trendelenburg and fluids open wide. Patient blood pressure up to 100's and HR in the 70's and Dr. Grijalva at [facility] Normal [facility] Progress Note-[facility] beside US Normal [facility] Progress Note-Nurse Patient coloring imp roved at this time and patient VS improved. Dr. Cain aware and awaiting US Normal [facility] Progress Note-Nurse This nurse and Elsie [...] started per Altagracia Godinez. Dr. Cain at [facility]. Patient verbalized she is starting to feel better at this time Normal [facility] Progress Note-Physicianon Progress Note-Physician Patient: SUKHDEV [...] q6hr, # 15 tab(s), Refills(s) 0, Pharmacy: [facility] #16 Documented Medications Documented Multivitamins: 1 tab(s), [...] list: All Problems Pancreatitis / SNOMED CT 223431235 / Confirmed Incomplete miscarriage / SNOMED CT 713291631 / Confirmed missed Ovarian dysfunction / SNOMED CT 21020383 / Confirmed Hypothyroidism / SNOMED CT 37271294 / Confirmed, Active Problems (4) Hypothyroidism Incomplete miscarriage Ovarian dysfunction Pancreatitis Histories Past Medical History: No active or resolved past medical history items have been selected or recorded. Family History: Diabetes mellitus type 2 Mother Thyroid cancer Mother Sister Procedure history: Dilation and curettage ([id number]) on 10/20/2019 at 33 Years. Comments: 10/20/2019 19:10 Kat Rosenbaum RN DILATION & SUCTION CURETTAGE Cholecystectomy ([id number]) on 07/19/2019 at 33 Years. DIAGNOSTIC LAPAROSCOPY [...] 26) Cr 0.7 (MAY 26) . Plan [place] [employer]hes[employer] (ASA) physical status classification: Class III, E. Anesthetic Preoperative Plan Anesthesia: General. . Anesthetic plan, risks, benefits, and alternatives discussed with the patient and/or family. Pt. and/or family present and agree to proceed as planned.. Discussed the importance of abstaining from tobacco products, and offered counseling if desired. Normal [facility] Comment on above: Result Comment: Elec tronically Signed By: Jerel Martin JR, DO\.yvonne\Date and Time Signed: 05/26/20 17:16 EDT [facility] 05-26-2020 # of Units [address] [facility] Comment on above: Result Comment: 2019 18:39 [id number] Blood product ready and called to Jaki/OB at 05/26/2020 18:39:16 EDT by AL. Performed By: #### 1 1809624, 4359488, 7223025, 4142861, 2096484, 6751457, 83772631, 8640529 #### [facility] [address] [place] [address] Date Required 05-26-2020 [facility] Comment on above: Performed By: #### 1 1679627, 7682459, 9199492, 3045062, 4843382, 8704439, 37275120, 7416845 #### [facility] [address] [place] [address] Product Type None Required [facility] Comment on above: Performed By: #### 1 1197858, 3256922, 6043424, 7845935, 6056156, 0040686, 00216548, 4804500 #### [facility] [address] [place] [address] # of Units [address] [facility] Comment on above: Result Comment: 2019 16:29 [id number] Blood product ready and called to Lauren at 05/26/2020 16:29:10 EDT by ALElayne Performed By: #### 1 2754792, 7561395, 7062585, 2480163, 0262686, 4440259, 63666454, 1722698 #### [facility] [address] [place] [address] # of Units [address] [facility] Comment on above: Performed By: #### 1 8507203, 8900689, 4609104, 2199583, 3549408, 7793608, 34506763, 1353635 #### [facility] [address] [place], [place] [address] Date Required 05/26/2020 [facility] Comment on above: Performed By: #### 1 5719628, 2864603, 1984662, 0368532, 2716330, 2796182, 29089027, 5601327 #### [facility] [address] [place], [place] [address] Date Required [facility] Comment on above: Performed By: #### 1 1286411, 1043272, 2757219, 7386204, 1157122, 8725970, 43499880, 0211577 #### [facility] [address] [place] [address] Product Type None Required [facility] Comment on above: Performed By: #### 1 0336876, 0539033, 6820895, 2717349, 1796967, 6033219, 67318969, 5721045 #### [facility] [address] [place] [address] # of Units [address] [facility] Comment on above: Result Comment: 2019 15:50 [id number] Blood product ready and called to Topher/ER at 05/26/2020 15:49:51 EDT by AL. Performed By: #### 1 8076257, 4807068, 8229866, 7002928, 8332664, 7104270, 35282733, 3654989 #### [facility] [address] [place] [address] Date Required 05/26/2020 [facility] Comment on above: Performed By: #### 1 6234210, 6001162, 0514678, 6195722, 7959723, 6676505, 90336038, 7301347 #### [facility] [address] [place] [address] Product Type None Required [facility] Comment on above: Performed By: #### 1 1815271, 6467932, 6753324, 9900520, 3911778, 1072447, 60861908, 0240821 #### [facility] [address] [place] [address] US 1st Trimesteron 05-26-2020 US 1st Trimester [...] ? SAB 2 Transabdominal Ultrasound Performed Normal [facility] eGFRon 05-26-2020 GFR/1.73 sq M predicted among blacks MDRD (S/P/Bld) [Vol rate/Area] mL/min/{1.73_m2} Normal >=[address] [facility] Comment on above: Order Comment: Order added by Discern Expert. Result Comment: eGFR is race adjusted. AA=. Performed By: #### 1 8061017, 0075997, 2430639, 7373256, 8311016, 1652828, 60513982, 3423269 #### [facility] [address] [place] [address] GFR/1.73 sq M predicted among non-blacks MDRD (S/P/Bld) [Vol rate/Area] mL/min/{1.73_m2} Normal >=[address] [facility] Comment on above: Order Comment: Order added by Discern Expert. Result Comment: [employer] ivan kidney disease could be indicated at eGFR's of less than 60 mL/min/1.73m2. Kidney failure is indicated at less than 15 mL/min/1.73m2. Performed By: #### 1 3224585, [id number], 0948056, 4689315, 4234509, 4219254, 20238810, 0438261 #### [facility] [address] [place] [address] Coding Summary.on 01-23-2020 Coding Summary. CODING DATE: 020 FINAL [facility] STATUS: Home (Routine DC) PAYOR: Leela [...] Milton Date Saved: 01/23/2020 12:[address] [facility] Estradiolon 01-23-2020 E2 [Mass/Vol] 1822.0 pg/mL [facility] Comment on above: Result Comment: Adul t Female: Follicular phase 12.5 - 166.0 Ovulation phase 85.8 - 498.0 Luteal phase 43.8 - 211.0 Postmenopausal <6.0 - 54.7 1st trimester 215.0 - >4300.0 Girls (1-10 years) 6.0 - 27.0 Mal ECLIA methodology Performed at: [facility] [id number] PhD Subhash Coronel Performed By: #### 1 [id number], 1239393, 5285745, 2958360, 7110338, 8450491, 80373330, 7372098 #### [facility] [address] [place] [address] BhCG Quanton 01-22-2020 [place] [address] m[IU]/mL High 1-3 F [facility] Comment on above: Result Comment: GEST ATIONAL AGE HCG RANGE (mIU/mL) NON- <1-3 0.2-1 WEEKS 5-50 1-2 WEEKS 50-500 2-3 WEEKS 100-5,000 3-4 WEEKS 500-10,000 4-5 WEEKS 1,000-50,000 5-6 WEEKS 10,000-100,000 6-8 WEEKS 15,000-200,000 8-12 WEEKS 10,000-100,000 Performed By: #### 1 [id number], 8889708, 2431379, 5531201, 2906371, 3339075, 25448383, 1292968 #### [facility] [address] [place] [address] Progesteroneon 01-22-2020 Progesterone [Mass/Vol] 21.50 ng/mL [facility] Comment on above: Result Comment: REFE RENCE RANGE Males 0.14-2.06 ng/mL Non- Females Follicular 0.10-0.60 ng/mL Luteal 3.00-17.5 ng/mL Midluteal 3.30-18.6 ng/mL Post-Menopausal 0.10-0.40 ng/mL First Trimester 8.30-66.5 ng/mL Second Trimester 18.9-66.1 ng/mL Third Trimester 35.8-312.4 ng/mL Performed By: #### 1 [id number], 8910444, 7985969, 6942724, 1183062, 1866590, 23927439, 4617937 #### [facility] [address] [place] [address] Coding Summary.on 01-16-2020 Coding Summary. CODING DATE: 020 FINAL [facility] STATUS: Home (Routine DC) PAYOR: Leela [...] CphT Date Saved: 01/16/2020 07:[address] [facility] Estradiolon 01-16-2020 E2 [Mass/Vol] 1275.0 pg/mL [facility] Comment on above: Result Comment: Adul t Female: Follicular phase 12.5 - 166.0 Ovulation phase 85.8 - 498.0 Luteal phase 43.8 - 211.0 Postmenopausal <6.0 - 54.7 1st trimester 215.0 - >4300.0 Girls (1-10 years) 6.0 - 27.0 Mal ECLIA methodology Performed at: [facility] [address] [phone] PhD Subhash Coronel Performed By: #### 1 [id number], 3789201, 8815400, 6746725, 0609965, 1303088, 23959889, 6315353 #### [facility] [address] [place] [address] BhCG Quanton 01-15-2020 HCG.beta subunit Qn 4061 m[IU]/mL High 1-3 Fi [facility] Comment on above: Result Comment: GEST ATIONAL AGE HCG RANGE (mIU/mL) NON- <1-3 0.2-1 WEEKS 5-50 1-2 WEEKS 50-500 2-3 WEEKS 100-5,000 3-4 WEEKS 500-10,000 4-5 WEEKS 1,000-50,000 5-6 WEEKS 10,000-100,000 6-8 WEEKS 15,000-200,000 8-12 WEEKS 10,000-100,000 Performed By: #### 1 [id number], 2832760, 8568676, 7731937, 4033959, 2425958, 06506190, 5288091 #### [facility] [address] [place] [address] Progesteroneon 01-15-2020 Progesterone [Mass/Vol] 32.10 ng/mL [facility] Comment on above: Result Comment: REFE RENCE RANGE Males 0.14-2.06 ng/mL Non- Females Follicular 0.10-0.60 ng/mL Luteal 3.00-17.5 ng/mL Midluteal 3.30-18.6 ng/mL Post-Menopausal 0.10-0.40 ng/mL First Trimester 8.30-66.5 ng/mL Second Trimester 18.9-66.1 ng/mL Third Trimester 35.8-312.4 ng/mL Performed By: #### 1 5749364, 9129657, 7355264, 6289181, 4637750, 4297725, 88254056, 3573441 #### [facility] [address] [place] [address] Coding Summary.on 01-09-2020 Coding Summary. CODING DATE: 020 FINAL [facility] STATUS: Home (Routine DC) PAYOR: Leela [...] CphT Date Saved: 01/09/2020 07:[address] [facility] Estradiolon 01-09-2020 E2 [Mass/Vol] 572.2 pg/mL [facility] Comment on above: Result Comment: Adul t Female: Follicular phase 12.5 - 166.0 Ovulation phase 85.8 - 498.0 Luteal phase 43.8 - 211.0 Postmenopausal <6.0 - 54.7 1st trimester 215.0 - >4300.0 Girls (1-10 years) 6.0 - 27.0 Mal ECLIA methodology Performed at: [facility] [address] [id number] PhD Subhash Coronel Performed By: #### 1 9862615, 3482703, 6315539, 6614105, 7419338, 3114921, 86798286, 5652788 #### [facility] [address] [place] [address] [facility] 01-08-2020 HCG.beta subunit Qn 898 m[IU]/mL High 1-3 Fis [facility] Comment on above: Result Comment: GEST ATIONAL AGE HCG RANGE (mIU/mL) NON- <1-3 0.2-1 WEEKS 5-50 1-2 WEEKS 50-500 2-3 WEEKS 100-5,000 3-4 WEEKS 500-10,000 4-5 WEEKS 1,000-50,000 5-6 WEEKS 10,000-100,000 6-8 WEEKS 15,000-200,000 8-12 WEEKS 10,000-100,000 Performed By: #### 1 0532770, 1117753, 4001965, 2459052, 1842613, 4920756, 02741753, 5054991 #### [facility] [address] [place] [address] Progesteroneon 01-08-2020 Progesterone [Mass/Vol] 27.90 ng/mL [facility] Comment on above: Result Comment: REFE RENCE RANGE Males 0.14-2.06 ng/mL Non- Females Follicular 0.10-0.60 ng/mL Luteal 3.00-17.5 ng/mL Midluteal 3.30-18.6 ng/mL Post-Menopausal 0.10-0.40 ng/mL First Trimester 8.30-66.5 ng/mL Second Trimester 18.9-66.1 ng/mL Third Trimester 35.8-312.4 ng/mL Performed By: #### 1 7262641, 3512463, 1394371, 1203583, 2088884, 4977744, 37558634, 3886544 #### [facility] [address] [place] [address] Coding Summary.on 01-02-2020 Coding Summary. CODING DATE: 020 FINAL [facility] STATUS: Home (Routine DC) PAYOR: Gerty ADMIT DX: REASON FOR VISIT DX: Z32.01 [...] CphT Date Saved: 01/02/2020 10:[address] [facility] Estradiolon 01-02-2020 E2 [Mass/Vol] 1694.0 pg/mL [facility] Comment on above: Result Comment: Adul t Female: Follicular phase 12.5 - 166.0 Ovulation phase 85.8 - 498.0 Luteal phase 43.8 - 211.0 Postmenopausal <6.0 - 54.7 1st trimester 215.0 - >4300.0 Girls (1-10 years) 6.0 - 27.0 Mal ECLIA methodology Performed at: [facility] [id number] PhD Subhash Coronel Performed By: #### 1 7698649, 3388555, 8113800, 4356939, 2291351, 2825457, 26544734, 4312570 #### [facility] [address] [place] [address] [facility] Quanton 01-01-2020 HCG.beta subunit Qn 124 m[IU]/mL High 1-3 Fis [facility] Comment on above: Result Comment: GEST ATIONAL AGE HCG RANGE (mIU/mL) NON- <1-3 0.2-1 WEEKS 5-50 1-2 WEEKS 50-500 2-3 WEEKS 100-5,000 3-4 WEEKS 500-10,000 4-5 WEEKS 1,000-50,000 5-6 WEEKS 10,000-100,000 6-8 WEEKS 15,000-200,000 8-12 WEEKS 10,000-100,000 Performed By: #### 1 9897748, 5551038, 8739236, 0142109, 9142418, 3037905, 64783271, 9721844 #### [facility] [address] [place] [address] Coding Summary.on 01-01-2020 Coding Summary. CODING DATE: 020 FINAL [facility] STATUS: Home (Routine DC) PAYOR: Gerty ADMIT DX: REASON FOR VISIT DX: E28.9 [...] CphT Date Saved: 01/01/2020 02:[address] [facility] Progesteroneon 01-01-2020 Progesterone [Mass/Vol] 23.10 ng/mL [facility] Comment on above: Result Comment: REFE RENCE RANGE Males 0.14-2.06 ng/mL Non- Females Follicular 0.10-0.60 ng/mL Luteal 3.00-17.5 ng/mL Midluteal 3.30-18.6 ng/mL Post-Menopausal 0.10-0.40 ng/mL First Trimester 8.30-66.5 ng/mL Second Trimester 18.9-66.1 ng/mL Third Trimester 35.8-312.4 ng/mL Performed By: #### 1 0290144, 7842936, 8297325, 9993044, 8448813, 5716477, 82217243, 4280659 #### [facility] [address] [place] [address] Coding Summary.on 12-31-2019 Coding Summary. CODING DATE: 020 [facility] STATUS: Home (Routine DC) PAYOR: Gerty ADMIT DX: REASON FOR VISIT DX: E28.9 [...] Putnam Date Saved: 12/31/2019 08:[address] [facility] Estradiolon 12-30-2019 E2 [Mass/Vol] 1478.0 pg/mL [facility] Comment on above: Result Comment: Adul t Female: Follicular phase 12.5 - 166.0 Ovulation phase 85.8 - 498.0 Luteal phase 43.8 - 211.0 Postmenopausal <6.0 - 54.7 1st trimester 215.0 - >4300.0 Girls (1-10 years) 6.0 - 27.0 Mal ECLIA methodology Performed at: [facility] [address] [id number] PhD Subhash Coronel Performed By: #### 1 3476214, 0599191, 0544289, 6067758, 5402503, 1769896, 16744871, 4005592 #### [facility] [address] [place] [address] BhCG Quanton 12-29-2019 HCG.beta subunit Qn 34 m[IU]/mL High 1-3 Fish [facility] Comment on above: Result Comment: GEST ATIONAL AGE HCG RANGE (mIU/mL) NON- <1-3 0.2-1 WEEKS 5-50 1-2 WEEKS 50-500 2-3 WEEKS 100-5,000 3-4 WEEKS 500-10,000 4-5 WEEKS 1,000-50,000 5-6 WEEKS 10,000-100,000 6-8 WEEKS 15,000-200,000 8-12 WEEKS 10,000-100,000 Performed By: #### 1 6184861, 5923718, 9916961, 9742245, 5868957, 5256158, 92866475, 8314226 #### [facility] [address] [place] [address] Progesteroneon 12-29-2019 Progesterone [Mass/Vol] 21.80 ng/mL [facility] Comment on above: Result Comment: REFE RENCE RANGE Males 0.14-2.06 ng/mL Non- Females Follicular 0.10-0.60 ng/mL Luteal 3.00-17.5 ng/mL Midluteal 3.30-18.6 ng/mL Post-Menopausal 0.10-0.40 ng/mL First Trimester 8.30-66.5 ng/mL Second Trimester 18.9-66.1 ng/mL Third Trimester 35.8-312.4 ng/mL Performed By: #### 1 9804760, 7840357, 1484235, 8434000, 4832024, 9737641, 25156078, 3199569 #### [facility] [address] [place] [address] BhCG Quanton 12-27-2019 HCG.beta subunit Qn 19 m[IU]/mL High 1-[address] [facility] Comment on above: Result Comment: GEST ATIONAL AGE HCG RANGE (mIU/mL) NON- <1-3 0.2-1 WEEKS 5-50 1-2 WEEKS 50-500 2-3 WEEKS 100-5,000 3-4 WEEKS 500-10,000 4-5 WEEKS 1,000-50,000 5-6 WEEKS 10,000-100,000 6-8 WEEKS 15,000-200,000 8-12 WEEKS 10,000-100,000 Performed By: #### 1 3255332, 1013598, 7200525, 2900584, 4883984, 0142926, 71313997, 6694283 #### [facility] [address] [place] [address] Progesteroneon 12-27-2019 Progesterone [Mass/Vol] 22.60 ng/mL [facility] Comment on above: Result Comment: REFE RENCE RANGE Males 0.14-2.06 ng/mL Non- Females Follicular 0.10-0.60 ng/mL Luteal 3.00-17.5 ng/mL Midluteal 3.30-18.6 ng/mL Post-Menopausal 0.10-0.40 ng/mL First Trimester 8.30-66.5 ng/mL Second Trimester 18.9-66.1 ng/mL Third Trimester 35.8-312.4 ng/mL Performed By: #### 1 4642415, 2634192, 2343683, 3231682, 9873447, 2160893, 78137674, 0614689 #### [facility] [address] [place] [address] Coding Summary.on 12-25-2019 Coding Summary. CODING DATE: 020 FINAL [facility] STATUS: Home (Routine DC) PAYOR: Leela [...] CphT Date Saved: 12/22/2019 04:[address] [facility] Coding Summary. CODING DATE: 020 [facility] STATUS: PAYOR: Leela ADMIT DX: REASON FOR [...] CphT Date Saved: 12/22/2019 04:[address] [facility] Estradiolon 12-23-2019 E2 [Mass/Vol] 1555.0 pg/mL [facility] Comment on above: Result Comment: Adul t Female: Follicular phase 12.5 - 166.0 Ovulation phase 85.8 - 498.0 Luteal phase 43.8 - 211.0 Postmenopausal <6.0 - 54.7 1st trimester 215.0 - >4300.0 Girls (1-10 years) 6.0 - 27.0 Mal ECLIA methodology Performed at: [facility] [id number] PhD Subhash Coronel Performed By: #### 1 1567452, 2601617, 1052111, 5555201, 1782281, 2509015, 35147959, 1708005 #### [facility] [address] [place] [address] Progesteroneon 12-22-2019 Progesterone [Mass/Vol] 25.40 ng/mL [facility] Comment on above: Result Comment: REFE RENCE RANGE Males 0.14-2.06 ng/mL Non- Females Follicular 0.10-0.60 ng/mL Luteal 3.00-17.5 ng/mL Midluteal 3.30-18.6 ng/mL Post-Menopausal 0.10-0.40 ng/mL First Trimester 8.30-66.5 ng/mL Second Trimester 18.9-66.1 ng/mL Third Trimester 35.8-312.4 ng/mL Performed By: #### 1 7483723, 8454234, 0826194, 2680716, 4917559, 6364547, 05805051, 8277843 #### [facility] [address] [place] [address] Coding Summary.on 12-11-2019 Coding Summary. CODING DATE: 020 FINAL [facility] STATUS: Home (Routine DC) PAYOR: Leela [...] CphT Date Saved: 12/11/2019 12:[address] [facility] Estradiolon 12-09-2019 E2 [Mass/Vol] 1486.0 pg/mL [facility] Comment on above: Result Comment: Adul t Female: Follicular phase 12.5 - 166.0 Ovulation phase 85.8 - 498.0 Luteal phase 43.8 - 211.0 Postmenopausal <6.0 - 54.7 1st trimester 215.0 - >4300.0 Girls (1-10 years) 6.0 - 27.0 Mal ECLIA methodology Performed at: [facility] [id number] [id number] PhD Subhash Coronel Performed By: #### 1 [id number], 5543092, 0777829, 8392829, 0149073, 8697826, 87572727, 8016457 #### [facility] [address] [place] [address] LHon 12-09-2019 Lutropin Qn 6.2 m[IU]/mL [facility] Comment on above: Result Comment: Adul t Female: Follicular phase 2.4 - 12.6 Ovulation phase 14.0 - 95.6 Luteal phase 1.0 - 11.4 Postmenopausal 7.7 - 58.5 Performed at: [facility] [phone] PhD Subhash Coronel Performed By: #### 1 5545170, 6420968, 5443449, 0858265, 3593567, 7601429, 55404185, 6702315 #### [facility] [address] [place] [address] Progesteroneon 12-08-2019 Progesterone [Mass/Vol] ng/mL [facility] Comment on above: Result Comment: REFE RENCE RANGE Males 0.14-2.06 ng/mL Non- Females Follicular 0.10-0.60 ng/mL Luteal 3.00-17.5 ng/mL Midluteal 3.30-18.6 ng/mL Post-Menopausal 0.10-0.40 ng/mL First Trimester 8.30-66.5 ng/mL Second Trimester 18.9-66.1 ng/mL Third Trimester 35.8-312.4 ng/mL Performed By: #### 1 4124395, 2262746, 4579370, 3604072, 0119113, 2697802, 32129801, 2170577 #### [facility] [address] [place] [address] US Pelvis Non-OB Completeon 12-08-2019 US Pelvis [...] Transabdominal Ultrasound Performed Transvaginal Ultrasound Performed Normal [facility] US Transvaginal Non-OBon US Transvaginal Non-OB Exam Date/Time: 12/08/2019 07:42 EST Reason for Exam: OVARIAN DYSFUNCTION Report Please refer to prior transabdominal pelvic sonogram report. FINAL REPORT Dictated: 12/08/2019 12:35 pm Citlaly Buchanan MD Signed (Electronic Signature): 12/08/2019 12:35 pm Signed by: Citlaly Buchanan MD Transcribed by: MADISON Technologist: JESSICA Normal [facility] Coding Summary.on 12-05-2019 Coding Summary. CODING DATE: 020 FINAL [facility] STATUS: Home (Routine DC) PAYOR: Leela [...] CphT Date Saved: 12/05/2019 10:[address] [facility] Estradiolon 12-05-2019 E2 [Mass/Vol] 1328.0 pg/mL [facility] Comment on above: Result Comment: Adul t Female: Follicular phase 12.5 - 166.0 Ovulation phase 85.8 - 498.0 Luteal phase 43.8 - 211.0 Postmenopausal <6.0 - 54.7 1st trimester 215.0 - >4300.0 Girls (1-10 years) 6.0 - 27.0 Mal ECLIA methodology Performed at: [facility] [address] [id number] [id number] PhD Subhash Coronel Performed By: #### 1 4296678, 5155991, 4363206, 9362237, 8219049, 6746668, 57430289, 3316102 #### [facility] [address] [place] [address] LHon 12-05-2019 Lutropin Qn 7.2 m[IU]/mL [facility] Comment on above: Result Comment: Adul t Female: Follicular phase 2.4 - 12.6 Ovulation phase 14.0 - 95.6 Luteal phase 1.0 - 11.4 Postmenopausal 7.7 - 58.5 Performed at: [facility] [address] [id number] [id number] PhD Subhash Coronel Performed By: #### 1 7846789, 8070900, 9969806, 7874379, 5772077, 2380965, 77745159, 0978255 #### [facility] [address] [place] [address] Progesteroneon 12-04-2019 Progesterone [Mass/Vol] ng/mL [facility] Comment on above: Result Comment: REFE RENCE RANGE Males 0.14-2.06 ng/mL Non- Females Follicular 0.10-0.60 ng/mL Luteal 3.00-17.5 ng/mL Midluteal 3.30-18.6 ng/mL Post-Menopausal 0.10-0.40 ng/mL First Trimester 8.30-66.5 ng/mL Second Trimester 18.9-66.1 ng/mL Third Trimester 35.8-312.4 ng/mL Performed By: #### 1 0139459, 3512660, 6384771, 0099555, 4169421, 5490967, 42621269, 0347190 #### [facility] [address] [place] [address] US Pelvis Non-OB Completeon 12-04-2019 US Pelvis [...] Comments Transabdominal Ultrasound Performed Transvaginal Ultrasound Performed [facility] US Transvaginal Non-OBon US Transvaginal Non-OB Exam Date/Time: 12/04/2019 07:41 EST Reason for Exam: OVARIAN DYSFUNCTION Report PLEASE REFER TO THE ULTRASOUND PELVIS NON-OB COMPLETE REPORT. FINAL REPORT Dictated: 12/04/2019 9:12 am Go Kaplan M.D. Signed (Electronic Signature): 12/04/2019 9:12 am Signed by: Go Kaplan M.D. Transcribed by: MADISON Technologist: SYBIL [facility] Coding Summary.on 12-01-2019 Coding Summary. CODING DATE: 020 FINAL [facility] STATUS: Home (Routine DC) PAYOR: Gerty APC DESCRIPTION 5522 Level 2 Imaging without [...] Hill CphT Date Saved: 12/01/2019 12:45 pm [facility] Estradiolon 12-01-2019 E2 [Mass/Vol] 945.3 pg/mL [facility] Comment on above: Result Comment: Adul t Female: Follicular phase 12.5 - 166.0 Ovulation phase 85.8 - 498.0 Luteal phase 43.8 - 211.0 Postmenopausal <6.0 - 54.7 1st trimester 215.0 - >4300.0 Girls (1-10 years) 6.0 - 27.0 Mal ECLIA methodology Performed at: [facility] [id number] [phone] PhD Subhash Coronel Performed By: #### 1 7998129, 0223551, 5454876, 1163649, 0002049, 8755172, 67862012, 5298695 #### [facility] [address] [place] [address] LHon 12-01-2019 Lutropin Qn 6.9 m[IU]/mL [facility] Comment on above: Result Comment: Adul t Female: Follicular phase 2.4 - 12.6 Ovulation phase 14.0 - 95.6 Luteal phase 1.0 - 11.4 Postmenopausal 7.7 - 58.5 Performed at: [facility] [id number] [id number] PhD Subhash Coronel Performed By: #### 1 7590560, 0511751, 2190845, 2023798, 4907830, 1308228, 21980254, 4458599 #### [facility] [address] [place] [address] Progesteroneon 11-30-2019 Progesterone [Mass/Vol] 0.10 ng/mL [facility] Comment on above: Result Comment: REFE RENCE RANGE Males 0.14-2.06 ng/mL Non- Females Follicular 0.10-0.60 ng/mL Luteal 3.00-17.5 ng/mL Midluteal 3.30-18.6 ng/mL Post-Menopausal 0.10-0.40 ng/mL First Trimester 8.30-66.5 ng/mL Second Trimester 18.9-66.1 ng/mL Third Trimester 35.8-312.4 ng/mL Performed By: #### 1 3392609, 1718707, 8476818, 9710887, 8776032, 1235580, 94994425, 7338602 #### [facility] [address] [place] [address] US Pelvis Non-OB Completeon 11-30-2019 US Pelvis [...] 11/30/2019 13:21 EST by Go Kaplan M.D. [facility] US Transvaginal Non-OBon US Transvaginal Non-OB Exam Date/Time: 11/30/2019 07:37 EST Reason for Exam: ovarian dysfunction Report PLEASE REFER TO THE ULTRASOUND PELVIS NON-OB COMPLETE REPORT. FINAL REPORT Dictated: 11/30/2019 9:01 am Go Kaplan M.D. Signed (Electronic Signature): 11/30/2019 9:01 am Signed by: Go Kaplan M.D. Transcribed by: MADISON Technologist: JESSICA Normal [facility] Coding Summary.on 11-24-2019 Coding Summary. CODING DATE: 020 [facility] STATUS: Home (Routine DC) PAYOR: Gerty APC DESCRIPTION 5522 Level 2 Imaging without [...] CphT Date Saved: 11/24/2019 08:[address] [facility] Estradiolon 11-24-2019 E2 [Mass/Vol] 35.2 pg/mL [facility] Comment on above: Result Comment: [facility] t Female: Follicular phase 12.5 - 166.0 Ovulation phase 85.8 - 498.0 Luteal phase 43.8 - 211.0 Postmenopausal <6.0 - 54.7 1st trimester 215.0 - >4300.0 Girls (1-10 years) 6.0 - 27.0 Mal ECLIA methodology Performed at: [address] [id number] [id number] PhD Subhash Coronel Performed By: #### 1 0789334, 2357041, 9457511, 4783828, 0309023, 3741365, 26869700, 3485020 #### [facility] [address] [place] [address] FSH and LHon 11-24-2019 Follitropin Qn 8.7 m[IU]/mL [facility] Comment on above: Result Comment: [facility] t Female: Follicular phase 3.5 - 12.5 Ovulation phase 4.7 - 21.5 Luteal phase 1.7 - 7.7 Postmenopausal 25.8 - 134.8 Performed at: [address] [id number] PhD Subhash Coronel Performed By: #### 1 8595698, 2873643, 8432193, 7066358, 1490569, 9729846, 93644892, 2355361 #### [facility] [address] [place] [address] Lutropin Qn 9.1 m[IU]/mL [facility] Comment on above: Result Comment: [facility] t Female: Follicular phase 2.4 - 12.6 Ovulation phase 14.0 - 95.6 Luteal phase 1.0 - 11.4 Postmenopausal 7.7 - 58.5 Performed By: #### 1 4357574, 9740239, 9034901, 7527668, 8112785, 6379396, 87940875, 5512681 #### [facility] [address] [place] [address] BhCG Quanton 11-23-2019 HCG.beta subunit Qn m[IU]/mL Normal 1-3 [facility] Comment on above: Result Comment: GEST ATIONAL AGE HCG RANGE (mIU/mL) NON- <1-3 0.2-1 WEEKS 5-50 1-2 WEEKS 50-500 2-3 WEEKS 100-5,000 3-4 WEEKS 500-10,000 4-5 WEEKS 1,000-50,000 5-6 WEEKS 10,000-100,000 6-8 WEEKS 15,000-200,000 8-12 WEEKS 10,000-100,000 Performed By: #### 1 1474222, 8668681, 3591791, 2034763, 6400622, 2282460, 73345268, 3813781 #### [facility] [address] [place] [address] Progesteroneon 11-23-2019 Progesterone [Mass/Vol] 0.40 ng/mL [facility] Comment on above: Result Comment: REFE RENCE RANGE Males 0.14-2.06 ng/mL Non- Females Follicular 0.10-0.60 ng/mL Luteal 3.00-17.5 ng/mL Midluteal 3.30-18.6 ng/mL Post-Menopausal 0.10-0.40 ng/mL First Trimester 8.30-66.5 ng/mL Second Trimester 18.9-66.1 ng/mL Third Trimester 35.8-312.4 ng/mL Performed By: #### 1 9413222, 2482747, 4011849, 5178232, 8212066, 6600371, 06108324, 3521677 #### [facility] [address] [place] [address] TSHon 11-23-2019 TSH Qn 0.76 mcIU/mL Normal 0.34-5.[address] [facility] Comment on above: Performed By: #### 1 9897825, 5669266, 2991579, 8898295, 1521018, 9791728, 12476441, 5115538 #### [facility] [address] [place] [address] US Pelvis Non-OB Completeon 11-23-2019 US Pelvis [...] Transabdominal Ultrasound Performed Transvaginal Ultrasound Performed Normal [facility] US Transvaginal Non-OBon US Transvaginal Non-OB Exam Date/Time: 11/23/2019 07:40 EST Reason for Exam: OVARIAN DYSFUNCTION Report PLEASE REFER TO THE ULTRASOUND PELVIS NON-OB COMPLETE REPORT. FINAL REPORT Dictated: 11/23/2019 9:26 am Go Kaplan M.D. Signed (Electronic Signature): 11/23/2019 9:26 am Signed by: Go Kaplan M.D. Transcribed by: MADISON Technologist: JESSICA [facility] Coding Summary.on 10-24-2019 Coding Summary. CODING DATE: 020 FINAL [facility] STATUS: Home (Routine DC) PAYOR: Leela APC DESCRIPTION 5414 Level 4 Gynecologic Procedures ADMIT DX: REASON FOR VISIT DX: O02.1 Missed FINAL DX: PRINCIPAL: O02.1 Missed SECONDARY: I10 Essential (primary) hypertension E03.9 Hypothyroidism, unspecified PYMT PROC APC STAT DESCRIPTION DOCTOR NAME DATE 81346 5414 J1 Treatment of missed Davie Grijalva MD 10/20/2019 , completed surgically; first trimester 16202 Anesthesia for Davie Eaton Jr, DO 10/20/2019 incomplete or missed procedures NOTE: The code number assigned matches the documented diagnosis and / or procedure in the patient's chart. However, the narrative phrase printed from the coding software may appear abbreviated, or result in slightly different terminology. Revised Coded By: Althea Ortega Revised Date Saved: 10/24/2019 02:47 pm [facility] Main OR Intraoperative Recor don 10-23-2019 Main OR Intraoperative Record IntraOp Document Type FT Summary Primary Physician: Davie Grijalva MD Finalized Date/Time: 10/23/19 11:48:56 Pt. Name: SUKHDEV SCHWARTZ/Sex: 1985 Female Med Rec #: [id number] Physician: Davie Grijalva MD Financial #: [id number] Pt. Type: A Room/Bed: Admit/Disch: 10/20/19 12:59:16 - 10/20/19 16:25:00 Institution: Case Times FT Entry 1 Patient Times In Room 10/20/19 14:00:00 Out Room 10/20/19 14:34:00 Procedure Times Start 10/20/19 14:19:00 Stop 10/20/19 14:25:00 Anesthesia Times Start 10/20/19 14:00:00 Stop 10/20/19 14:34:00 Last Modified By: Nona Cuellar RN 10/20/19 14:34:06 General Comments: 10/23/2019 Chart opened to review and send charges Hilda Stein COMPUTER SYSTEMS SUPPORT SPECIALIST Case Attendance FT Entry 1 Entry 2 Entry 3 Case Attendee Carlito OVALLES, Geri Grijalva MD, Davie Castelan RN, Rena Role Performed Anesthesiologist Surgeon - Primary Aluminum Hydroxide Process Operator - Primary Oncology Transplant Network Manager Time In 10/20/19 14:00:00 10/20/19 14:16:00 10/20/19 14:00:00 Time Out 10/20/19 14:34:00 10/20/19 14:26:00 10/20/19 14:34:00 Procedure DILATATION and SUCTION DILATATION and SUCTION DILATATION and SUCTION CURETTAGE(.) CURETTAGE(.) CURETTAGE(.) Comments DR EATON SUPERVISING Last Modified By: Polo RN, Nona Cuellar RN, Nona Contreras RN 10/20/19 14:35:30 10/20/19 14:35:30 10/20/19 14:35:30 Entry 4 Entry 5 Case Attendee Polo GOODRICH, Nona Crook COMPUTER SYSTEMS SUPPORT SPECIALIST, Mónica Role Performed Aluminum Hydroxide Process Operator - Primary Scrub - Primary Time In [...] and tissue Entry 1 Skin Integrity Intact, [place], Warm, and Skin Abnormality No Dry Outcomes [...] Cuellar RN, Hord RN, Abby, Costello Crook COMPUTER SYSTEMS SUPPORT SPECIALIST, Mónica COMPUTER SYSTEMS SUPPORT SPECIALIST, Mónica Outcomes Met? Yes Yes Last Modified By: BogotaNona bishop RN, RN, Emily A 10/20/19 14:21:22 [...] RN Patient Status Stable Skin. Condition Intact, [place], Warm, and Dry Airway Maintenance Oxygen in Use? Yes Airway Device Simple Mask Flow Rate 8 L/min Outcomes Met? Yes Last Modified By: Nona Cuellar RN 10/20/19 14:35:23 Post-Care Text: The patient is free from signs and symptoms of injury related to transfer/transport General Comments: report given to ornament setterElayne mayo rn Dressing/Packing FT Pre-Care Text: Administers [...] STRAIGHT Present Upon Arrival No Inserted 16FR [[id number]][F] Insertion Date/Time 10/20/19 14:15:00 Insertion Site Uretheral [...] BLANKET MISTRAL AIR Quantity 1 Aid TORSO [[id number]][F] Fluid/[place] [facility] Mistral warming system Setting high/43 Body Site Upper anterior torso Last Modified By: Nona Cuellar RN 10/20/19 13:54:58 Case Comments Finalized By: Juanita Stein CST Document Signatures Signed By: Nona Cuellar RN 10/20/19 14:35 Juanita Stein CST 10/23/19 11:[address] [facility] Operative Reporton 0 Operative Report Date [...] Davie Grijalva MD, FACOG gls Dictated: 10/20/2019 #[id number] Typed: 10/23/2019 #[id number] cc: Davie Grijalva MD, FACOG [facility] Comment on above: Result Comment: Elec tronically [...] Davie Grijalva MD, FACOG cr Dictated: 10/20/2019 #[id number] Typed: 10/21/2019 #[id number] cc: Davie Grijalva MD, FACISRAEL [facility] Comment on above: Result Comment: Elec tronically [...] All Problems Ovarian dysfunction / SNOMED CT 57263555 / Confirmed Hypothyroidism / SNOMED CT 48811561 / Confirmed Incomplete miscarriage / SNOMED CT 704941031 / Confirmed missed Pancreatitis / SNOMED CT 643704295 / Confirmed Histories Past Medical History: No active or resolved past medical history items have been selected or recorded. Family History: Diabetes mellitus type 2 Mother Thyroid cancer Mother Sister Procedure history: Cholecystectomy ([id number]) on 07/19/2019 at 33 Years. DIAGNOSTIC LAPAROSCOPY [...] results Radiology results ECG interpretation Condition Plan [place] [employer] Anesthesiologists (ASA) physical status classification: Class II. Anesthetic Preoperative Plan Anesthesia: General. . Anesthetic plan, risks, benefits, and alternatives discussed with the patient and/or family. Risks discussed: nausea, vomiting, headache, sore throat, dental injury, serious complications. Patient verbalized understanding. Communication: face to face with (patient 5 minutes, Pt educated on the importance of smoking cessation.). [facility] Comment on above: Result Comment: Elec tronically Signed By: Davie Eaton Jr, DO\doyle\Date and Time Signed: 10/23/19 07:34 EST Coding Summary.on 10-20-2019 Coding Summary. CODING DATE: 020 FINAL [facility] STATUS: Home (Routine DC) PAYOR: Commercial [...] Hill CphT Date Saved: 10/20/2019 09:01 am [facility] History and Physicalon 10-20 History and Physical [...] Davie Grijalva MD, FACOG gls Dictated: 10/20/2019 #[id number] Typed 10/20/2019 #[id number] cc: Davie Grijalva MD, FACOG Normal [facility] Comment on above: Result Comment: Elec tronically Signed By: Rudi GUSTAFSON, Davie Duong\.br\Date and Time Signed: 10/20/19 10:15 EST Inpatient Patient Summaryon 10-20-2019 Inpatient Patient Summary [place] [id number] [facility] Clinical Discharge Instructions PERSON INFORMATION Name: SUKHDEV SCHWARTZ [facility]#:[id number] PHYSICIANS Admitting Physician: Davie Grijalva MD Attending Physician: Davie Grijalva MD PCP: LOLI MATIAS MD Discharge Diagnosis: Hypothyroidism; Incomplete miscarriage; Status post dilation and curettage Comment: PATIENT EDUCATION INFORMATION Instructions: Post Op Patient Instructions - FT (CUSTOM); PAPER ROLLER - Post D&C, Hysteroscopy, LEEP or Essure/Laparoscopy (CUSTOM) Medication Leaflets: Follow up: With: Address: When: Davie Grijalva [address] [place] [address] Business (1) Comments: Call for any problems. MEDICATION LIST New Medications [facility] [address], [address] [place], [place] [id number], [phone] ibuprofen (ibuprofen 600 mg Tab) 1 Tablets [...] Mouth 2 times a day. Comment: Normal [facility] Main OR PACU I Recordon Main OR PACU I Record PACU Phase I Document Type FT Summary Primary Physician: Davie Grijalva MD Finalized Date/Time: 10/20/19 14:55:25 Pt. Name: SEN SCHWARTZTRUMAN Cote/Sex: 1985 Female Med Rec #: [id number] Physician: Davie Grijalva MD Financial #: [id number] Pt. Type: A Room/Bed: 05/18 Admit/Disch: 10/20/19 [...] By: Carin Iverson RN 10/20/19 14:[address] [facility] Main OR Preoperative Recordo n 10-20-2019 Main OR Preoperative Record PreOp Document Type FT Summary Primary Physician: Davie Grijalva MD Finalized Date/Time: 10/20/19 14:24:04 Pt. Name: SUKHDEV SCHWARTZ/Sex: 1985 Female Med Rec #: [id number] Physician: Davie Grijalva MD Financial #: [id number] Pt. Type: A Room/Bed: [facility] Admit/Disch: 10/20/19 12:59:16 - Institution: [...] By: Nona Cuellar RN 10/20/19 14:[address] [facility] Patient Education - Texton 0 10-20-2019 [...] cramps. PLEASE CALL FOR ANY PROBLEMS Normal [facility] Coding Summary.on 10-19-2019 Coding Summary. CODING DATE: 020 FINAL [facility] STATUS: Home (Routine DC) PAYOR: Commercial [...] CphT Date Saved: 10/19/2019 12:[address] [facility] RPRon 10-19-2019 Reagin Ab RPR Ql (S) Non-Reactive Normal Non-Reactiv e [facility] Comment on above: Performed By: #### 1 [id number], 0155337, 6138970, 6314807, 7995901, 5767956, 23010132, 7711230 #### [facility] [address] [place] [address] ABO/Rh Retypeon 10-17-2019 ABO/Rh Retype Interp Positive [facility] Comment on above: Performed By: #### 1 6146902, 9595248, 7661314, 9030420, 5915234, 1063873, 34870783, 3489413 #### [facility] [address] [place] [address] BUNon 10-17-2019 Urea nitrogen [Mass/Vol] 12 mg/dL Normal 5-[address] [facility] Comment on above: Performed By: #### 1 5860097, 9642445, 6811601, 0995406, 8722496, 5832564, 51738614, 7612355 #### [facility] [address] [place] [address] CBC w/Indiceson 10-17-2019 Erythrocyte distribution width (RBC) [Ratio] 12.7 % Normal 10.9-14.[address] [facility] Comment on above: Performed By: #### 1 1295869, 1303311, 5753363, 9666972, 2870595, 4176832, 60278858, 0778053 #### [facility] [address] [place] [address] Hematocrit (Bld) [Volume fraction] 34.6 % Normal 34.0-46.[address] [facility] Comment on above: Performed By: #### 1 2194761, 9300436, 0583440, 5981666, 2259808, 2872278, 52556601, 4618647 #### [facility] [address] [place] [address] Hemoglobin (Bld) [Mass/Vol] 11.7 g/dL Low 12.0-16.[address] [facility] Comment on above: Performed By: #### 1 5095131, 1317532, 4983849, 5436287, 3180321, 2933653, 87760368, 9265055 #### [facility] [address] [place], [place] [address] MCH (RBC) [Entitic mass] 30.7 pg Normal 27.0-34.[address] [facility] Comment on above: Performed By: #### 1 9209458, 4386380, 3568519, 5779190, 7069121, 6609554, 87117332, 4811627 #### [facility] [address] [place] [address] MCHC (RBC) [Mass/Vol] 33.8 g/dL Normal 31.4-36.[address] [facility] Comment on above: Performed By: #### 1 2583224, 6244222, 0731271, 7921295, 5010985, 3913157, 81421764, 6696847 #### [facility] [address] [place] [address] MCV (RBC) [Entitic vol] 90.8 fL Normal 80.0-100.[address] [facility] Comment on above: Performed By: #### 1 4839895, 5012140, 2937315, 3554194, 4330652, 1904625, 32588202, 2420874 #### [facility] [address] [place] [address] Platelet mean volume (Bld) [Entitic vol] 7.5 fL Normal 6.4-10.[address] [facility] Comment on above: Performed By: #### 1 6711511, 0653916, 9616306, 3029597, 3673555, 6719631, 56763903, 6169931 #### [facility] [address] [place] [address] Platelets (Bld) [#/Vol] 319.0 E9/L Normal 150.0-500.[address] [facility] Comment on above: Performed By: #### 1 8129870, 0324912, 4634943, 7787511, 3566822, 4698639, 71495203, 6183252 #### [facility] [address] [place] [address] RBC (Bld) [#/Vol] 3.8 E12/L Low 4.3-5.[address] [facility] Comment on above: Performed By: #### 1 8597590, 9680789, 3700533, 8005571, 2886341, 0710218, 45969095, 8589192 #### [facility] [address] [place] [address] WBC corrected for nucl RBC Auto (Bld) [#/Vol] 6.1 E9/L Normal 4.0-11.[address] [facility] Comment on above: Performed By: #### 1 2213874, 7908047, 8060586, 3906380, 2448624, 4959545, 42873219, 2768731 #### [facility] [address] [place] [address] Creatinineon 10-17-2019 Creatinine [Mass/Vol] 0.6 mg/dL Normal 0.5-1.[address] [facility] Comment on above: Performed By: #### 1 1152746, 6193189, 9076573, 5298238, 2110244, 5657752, 14213829, 0787287 #### [facility] [address] [place] [address] Lyteson 10-17-2019 Anion gap [Moles/Vol] 12 mmol/L Normal 6-[address] [facility] Comment on above: Performed By: #### 1 8365252, 6158965, 2162614, 2785477, 5023199, 7252482, 78829325, 8420897 #### [facility] [address] [place] [address] Chloride [Moles/Vol] 109 mmol/L Normal 101-[address] [facility] Comment on above: Performed By: #### 1 1052431, 0862103, 4859032, 1377061, 1832640, 2558476, 11505146, 9965609 #### [facility] [address] [place] [address] CO2 [Moles/Vol] 26 mmol/L Normal 21-31 [facility] Comment on above: Performed By: #### 1 2115816, 2095618, 9572668, 5533281, 0678136, 7953096, 10025069, 5707981 #### [facility] [address] [place] [address] Potassium [Moles/Vol] 4.3 mmol/L Normal 3.5-5.[address] [facility] Comment on above: Performed By: #### 1 0826858, 0829158, 3348487, 8649791, 6434403, 6317256, 35969852, 9608895 #### [facility] [address] [place] [address] Sodium [Moles/Vol] 143 mmol/L Normal 135-[address] [facility] Comment on above: Performed By: #### 1 6857989, 3344188, 9157671, 4706128, 8365912, 1470921, 26249424, 1616475 #### [facility] [address] [place] [address] PT & PTTon 10-17-2019 aPTT Coag (PPP) [Time] 29.9 second(s) Normal 25.1-36.[address] [facility] Comment on above: Result Comment: Hepa rin therapeutic range (represented by Anti-Factor Xa activity of 0.2 - 0.4 U/mL) corresponds to PTT of 56.6 - 109.0 sec. Performed By: #### 1 6874262, 2690623, 4813011, 1107975, 7408123, 7331646, 72950176, 1628381 #### [facility] [address] [place] [address] INR Coag (PPP) [Relative time] 1.0 {INR} [facility] Comment on above: Result Comment: INR results are specifically intended to assess patients stabilized on long-term Anticoagulation therapy suggested INR?s ?Less Intensive Anticoagulation? 2.0 ? 3.0 Conventional Range 3.0 ? 4.5 Performed By: #### 1 1650762, 0130938, 4198206, 3352630, 6065113, 6064126, 72916253, 3566141 #### [facility] [address] [place] [address] PT Coag (PPP) [Time] 11.0 second(s) Normal 10.2-12.[address] [facility] Comment on above: Performed By: #### 1 5120020, 6714777, 2766036, 2330951, 2658106, 0897479, 54587094, 8089015 #### [facility] [address] [place] [address] eGFRon 10-17-2019 GFR/1.73 sq M predicted among blacks MDRD (S/P/Bld) [Vol rate/Area] mL/min/{1.73_m2} Normal >=[address] [facility] Comment on above: Order Comment: Order added by Discern Expert. Result Comment: eGFR is race adjusted. AA=. Performed By: #### 1 9848658, 0774618, 4599600, 2438392, 4156370, 3681294, 99674232, 4407045 #### [facility] [address] [place] [address] GFR/1.73 sq M predicted among non-blacks MDRD (S/P/Bld) [Vol rate/Area] mL/min/{1.73_m2} Normal >=[address] [facility] Comment on above: Order Comment: Order added by Discern Expert. Result Comment: [employer] ivan kidney disease could be indicated at eGFR's of less than 60 mL/min/1.73m2. Kidney failure is indicated at less than 15 mL/min/1.73m2. Performed By: #### 1 7449209, 2714718, 4767273, 6081359, 0187419, 9536594, 42126670, 6211277 #### [facility] [address] [place] [address] Coding Summary.on 10-12-2019 Coding Summary. CODING DATE: 019 FINAL [facility] STATUS: Home (Routine DC) PAYOR: Commercial [...] CphT Date Saved: 10/12/2019 12:[address] [facility] BhCG Quanton 10-09-2019 HCG.beta subunit Qn 1862 m[IU]/mL High 1-3 Fi [facility] Comment on above: Result Comment: GEST ATIONAL AGE HCG RANGE (mIU/mL) NON- <1-3 0.2-1 WEEKS 5-50 1-2 WEEKS 50-500 2-3 WEEKS 100-5,000 3-4 WEEKS 500-10,000 4-5 WEEKS 1,000-50,000 5-6 WEEKS 10,000-100,000 6-8 WEEKS 15,000-200,000 8-12 WEEKS 10,000-100,000 Performed By: #### 1 9512386, 9788228, 2063703, 8562436, 7733200, 3305391, 88174908, 2527392 #### [facility] [address] [place] [address] Coding Summary.on 10-06-2019 Coding Summary. CODING DATE: 019 FINAL [facility] STATUS: Home (Routine DC) PAYOR: Commercial [...] CphT Date Saved: 10/06/2019 12:[address] [facility] US 1st Trimesteron 10-06-2019 US 1st [...] Size < Dates Uterus Position Anteverted Normal [facility] US Transvaginalon 10-06-2019 US Transvaginal Exam Date/Time: 10/05/2019 13:36 EST Reason for Exam: possible ectopic Report PLEASE REFER TO THE ULTRASOUND FIRST TRIMESTER REPORT. FINAL REPORT Dictated: 10/06/2019 10:35 am Go Kaplan M.D. Signed (Electronic Signature): 10/06/2019 10:35 am Signed by: Go Kaplan M.D. Transcribed by: MADISON Technologist: COREY Normal [facility] BhCG Quanton 10-05-2019 HCG.beta subunit Qn 1726 m[IU]/mL High 1-3 Fi [facility] Comment on above: Result Comment: GEST ATIONAL AGE HCG RANGE (mIU/mL) NON- <1-3 0.2-1 WEEKS 5-50 1-2 WEEKS 50-500 2-3 WEEKS 100-5,000 3-4 WEEKS 500-10,000 4-5 WEEKS 1,000-50,000 5-6 WEEKS 10,000-100,000 6-8 WEEKS 15,000-200,000 8-12 WEEKS 10,000-100,000 Performed By: #### 2 747479 ####[facility] [address] [place] [address] Coding Summary.on 10-04-2019 Coding Summary. CODING DATE: 019 [facility] STATUS: Home (Routine DC) PAYOR: Commercial Insurance [...] CphT Date Saved: 10/04/2019 02:[address] [facility] Estradiolon 10-04-2019 E2 [Mass/Vol] 189.4 pg/mL [facility] Comment on above: Result Comment: Adul t Female: Follicular phase 12.5 - 166.0 Ovulation phase 85.8 - 498.0 Luteal phase 43.8 - 211.0 Postmenopausal <6.0 - 54.7 1st trimester 215.0 - >4300.0 Girls (1-10 years) 6.0 - 27.0 Mal ECLIA methodology Performed at: [facility] [id number] PhD Subhash Coronel Performed By: #### 2 452503, 6010043, 53795258, 2218802 ####[facility] [address] [place] [address] FSH and LHon 10-04-2019 Follitropin Qn 4.6 m[IU]/mL [facility] Comment on above: Result Comment: [facility] terell Female: Follicular phase 3.5 - 12.5 Ovulation phase 4.7 - 21.5 Luteal phase 1.7 - 7.7 Postmenopausal 25.8 - 134.8 Performed at: [facility] [id number] PhD Subhash Coronel Performed By: #### 2 817318, 7838473, 45529885, 7715821 ####[facility] [address] [place] [address] Lutropin Qn 10.0 m[IU]/mL [facility] Comment on above: Result Comment: [facility] terell Female: Follicular phase 2.4 - 12.6 Ovulation phase 14.0 - 95.6 Luteal phase 1.0 - 11.4 Postmenopausal 7.7 - 58.5 Performed By: #### 2 102540, 5718517, 53560483, 2141727 ####[facility] [address] [place] [address] BhCG Quanton 10-03-2019 HCG.beta subunit Qn 1625 m[IU]/mL High 1-3 [facility] Comment on above: Result Comment: GEST ATIONAL AGE HCG RANGE (mIU/mL) NON- <1-3 0.2-1 WEEKS 5-50 1-2 WEEKS 50-500 2-3 WEEKS 100-5,000 3-4 WEEKS 500-10,000 4-5 WEEKS 1,000-50,000 5-6 WEEKS 10,000-100,000 6-8 WEEKS 15,000-200,000 8-12 WEEKS 10,000-100,000 Performed By: #### 2 242053 ####[facility] [address] [place] [address] Progesteroneon 10-03-2019 Progesterone [Mass/Vol] 7.80 ng/mL [facility] Comment on above: Result Comment: REFE RENCE RANGE Males 0.14-2.06 ng/mL Non- Females Follicular 0.10-0.60 ng/mL Luteal 3.00-17.5 ng/mL Midluteal 3.30-18.6 ng/mL Post-Menopausal 0.10-0.40 ng/mL First Trimester 8.30-66.5 ng/mL Second Trimester 18.9-66.1 ng/mL Third Trimester 35.8-312.4 ng/mL Performed By: #### 2 144866, 7643348, 19879874, 3798346 ####[facility] [address] [place] [address] TSHon 10-03-2019 TSH Qn 0.84 mcIU/mL Normal 0.34-5.[address] [facility] Comment on above: Performed By: #### 2 668382, 0133795, 95328764, 3021576 ####[facility] [address] [place] [address] Coding Summary.on 09-28-2019 Coding Summary. CODING DATE: 019 [facility] STATUS: Home (Routine DC) PAYOR: Commercial Insurance [...] Chau Date Saved: 09/28/2019 01:[address] [facility] BhCG Quanton 09-27-2019 HCG.beta subunit Qn 579 m[IU]/mL High 1-3 [facility] Comment on above: Result Comment: GEST ATIONAL AGE HCG RANGE (mIU/mL) NON- <1-3 0.2-1 WEEKS 5-50 1-2 WEEKS 50-500 2-3 WEEKS 100-5,000 3-4 WEEKS 500-10,000 4-5 WEEKS 1,000-50,000 5-6 WEEKS 10,000-100,000 6-8 WEEKS 15,000-200,000 8-12 WEEKS 10,000-100,000 Performed By: #### 2 794500 ####[facility] [address] [place] [address] External Lab Vitamin B6on Vitamin B6 4.4 [facility] Vitamin Aon 09-20-2019 Vitamin A 75.2 [facility] Vitamin B1on 09-20-2019 Thiamine (Vitamin B1) 116.7 [facility] Zincon 09-20-2019 Zinc 97 [facility] Coding Summary.on 09-18-2019 Coding Summary. CODING DATE: 019 [facility] STATUS: Home (Routine DC) PAYOR: Commercial Insurance [...] CphT Date Saved: 09/18/2019 01:[address] [facility] EXT LAB FERRITINon 9 Ferritin [Mass/Vol] 55 ng/mL [facility] External Lab Ironon 09-18-20 19 Iron [Mass/Vol] 89 ug/dL mcg/mL [facility] h External Lab Vitamin D, 25-O Hon 09-18-2019 Vitamin D, 25-OH 43.9 [facility] External Vitamin B12 and Fol ateon 09-18-2019 Cobalamin (Vitamin B12) [Mass/Vol] 291 pg/mL [facility] Folate 22.3 ng/mL Off scale high [facility] Interpretation and review of laboratory results Abnormal [facility] Vit Aon 09-18-2019 Retinol [Mass/Vol] 75.2 microgram/dL High 18.9-57.[address] [facility] Comment on above: Result Comment: Refe [...] the Food and Drug Administration. Performed at: [address] [id number] MD Keegan Limon Performed By: #### 2 246863, 3585921, 2990977, 9125042, 347244489, 18254981, 62255042, 83819113, 34354577 ####[facility] [address] [place] [address] Vit B1on 09-18-2019 Thiamine (Bld) [Moles/Vol] 116.7 nmol/L 66.5-200.[address] [facility] Comment on above: Result Comment: This test was developed and its performance characteristics determined by [employer]. It has not been cleared or approved by the Food and Drug Administration. Performed at: [address] [id number] MD Keegan Limon Performed By: #### 2 673237, 2556507, 3798861, 3751154, 801824493, 19519170, 04290761, 93957195, 90220678 ####[facility] [address] [place] [address] Vitamin B6on 09-18-2019 Pyridoxine [Mass/Vol] 4.4 microgram/L 2.0-32.[address] [facility] Comment on above: Result Comment: This test was developed and its performance characteristics determined by [facility]. It has not been cleared or approved by the Food and Drug Administration. Performed at: [address] [id number] MD Keegan Limon Performed By: #### 2 110705, 2595729, 4126402, 6835862, 373246596, 47232865, 42703798, 68829496, 87769824 ####[facility] [address] [place] [address] Zinc Lvlon 09-18-2019 Zinc [Mass/Vol] 97 microgram/dL 56-134 Fish [facility] Comment on above: Result Comment: This test was developed and its performance characteristics determined by [employer]. It has not been cleared or approved by the Food and Drug Administration. Detection Limit = 5 Performed at: [facility] [id number] MD Keegan Limon Performed By: #### 2 985098, 8938876, 6273647, 4985499, 000288525, 32832674, 59545207, 02606676, 75158603 ####[facility] [address] [place] [address] Coding Summary.on 09-15-2019 Coding Summary. CODING DATE: 019 FINAL [facility] STATUS: Home (Routine DC) PAYOR: Commercial [...] Coded By: [place] CphT Date Saved: 09/15/2019 02:[address] [facility] Estradiolon 09-14-2019 E2 [Mass/Vol] 929.6 pg/mL [facility] Comment on above: Result Comment: Adul t Female: Follicular phase 12.5 - 166.0 Ovulation phase 85.8 - 498.0 Luteal phase 43.8 - 211.0 Postmenopausal <6.0 - 54.7 1st trimester 215.0 - >4300.0 Girls (1-10 years) 6.0 - 27.0 Mal ECLIA methodology Performed at: [facility] [id number] PhD Subhash Coronel Performed By: #### 2 777282, 9488848 ####[facility] [address] [place] [address] BhCG Quanton 09-13-2019 HCG.beta subunit Qn 132 m[IU]/mL High 1-3 [facility] Comment on above: Result Comment: GEST ATIONAL AGE HCG RANGE (mIU/mL) NON- <1-3 0.2-1 WEEKS 5-50 1-2 WEEKS 50-500 2-3 WEEKS 100-5,000 3-4 WEEKS 500-10,000 4-5 WEEKS 1,000-50,000 5-6 WEEKS 10,000-100,000 6-8 WEEKS 15,000-200,000 8-12 WEEKS 10,000-100,000 Performed By: #### 1 8916251, 4407673, 3559776, 2402490, 8812758, 3771893, 75599401, 6844363 #### [facility] [address] [place] [address] Ferritinon 09-13-2019 Ferritin [Mass/Vol] 55 ng/mL Normal 11-307 [facility] Comment on above: Result Comment: NORM ALS MEN <30 YRS 16-132 ng/mL MEN >30 YRS 8-338 ng/mL WOMEN (PREMEN) 6-104 ng/mL WOMEN (POSTMEN) 12-210 ng/mL Performed By: #### 1 0554228, 0271198, 0854568, 6751681, 5583269, 2308485, 31368578, 3510325 #### [facility] [address] [place] [address] Folateon 09-13-2019 Folate [Mass/Vol] ng/mL Normal >=6.[address] [facility] Comment on above: Performed By: #### 1 3946090, 8156552, 2814072, 9724719, 8494034, 3435020, 48009878, 0735506 #### [facility] [address] [place] [address] Ironon 09-13-2019 Iron [Mass/Vol] 89 microgram/dL Normal 35-153 [facility] Comment on above: Performed By: #### 1 4277208, 3109644, 9016896, 6265569, 4281263, 9387216, 63016421, 3794257 #### [facility] [address] [place] [address] Progesteroneon 09-13-2019 Progesterone [Mass/Vol] 29.00 ng/mL [facility] Comment on above: Result Comment: REFE RENCE RANGE Males 0.14-2.06 ng/mL Non- Females Follicular 0.10-0.60 ng/mL Luteal 3.00-17.5 ng/mL Midluteal 3.30-18.6 ng/mL Post-Menopausal 0.10-0.40 ng/mL First Trimester 8.30-66.5 ng/mL Second Trimester 18.9-66.1 ng/mL Third Trimester 35.8-312.4 ng/mL Performed By: #### 2 624521, 5899662 ####[facility] [address] [place] [address] Vit B12on 09-13-2019 Cobalamin (Vitamin B12) [Mass/Vol] 291 pg/mL Normal 50-[address] [facility] Comment on above: Performed By: #### 2 226482, 3645900, 9626852, 2508516, 952547530, 14600661, 59305119, 47715515, 93109922 ####[facility] [address] [place] [address] Vitamin D 25 Hydroxyon 09-13 Calcidiol [Mass/Vol] 43.9 ng/mL Normal 30.0-100.[address] [facility] Comment on above: Result Comment: Vit hutchinson D deficiency has been defined as a level of serum 25-OH vitamin D less than 20 ng/mL (1,2) by the Pope of Medicine and an Endocrine Society practice guideline. The Endocrine Society further defined vitamin D insufficiency as a level between 21 and 29 ng/mL (2). 1. IOM (Pope of Medicine). 2010. Dietary reference intakes for calcium and D. [place]: The National Academies Press. 2. Isaías MF, Renay NC, Foreign HUERTA, et al. Evaluation, treatment, and prevention of vitamin D deficiency: an Endocrine Society clinical practice guideline. JCEM. 2010; 96 (7):1911-30. Performed By: #### 2 544692, 3293744, 0040698, 2992921, 386631201, 05535419, 51373565, 33713692, 37106492 ####[facility] [address] [place] [address] Coding Summary.on 09-12-2019 Coding Summary. CODING DATE: 019 [facility] STATUS: Home (Routine DC) PAYOR: Commercial Insurance [...] CphT Date Saved: 09/12/2019 07:[address] [facility] Estradiolon 09-12-2019 E2 [Mass/Vol] 1006.0 pg/mL [facility] Comment on above: Result Comment: Adul t Female: Follicular phase 12.5 - 166.0 Ovulation phase 85.8 - 498.0 Luteal phase 43.8 - 211.0 Postmenopausal <6.0 - 54.7 1st trimester 215.0 - >4300.0 Girls (1-10 years) 6.0 - 27.0 Mal ECLIA methodology Performed at: [facility] [address] [id number] PhD Subhash Coronel Performed By: #### 1 5925143, 0136574, 2262776, 2631697, 9904404, 4251181, 15232471, 8821996 #### [facility] [address] [place] [address] [facility] Quanton 09-11-2019 HCG.beta subunit Qn 121 m[IU]/mL High 1-3 [facility] Comment on above: Result Comment: GEST ATIONAL AGE HCG RANGE (mIU/mL) NON- <1-3 0.2-1 WEEKS 5-50 1-2 WEEKS 50-500 2-3 WEEKS 100-5,000 3-4 WEEKS 500-10,000 4-5 WEEKS 1,000-50,000 5-6 WEEKS 10,000-100,000 6-8 WEEKS 15,000-200,000 8-12 WEEKS 10,000-100,000 Performed By: #### 1 3701415, 5501280, 1963655, 8581056, 9600248, 1023437, 60343185, 8576506 #### [facility] [address] [place] [address] Progesteroneon 09-11-2019 Progesterone [Mass/Vol] 26.60 ng/mL [facility] Comment on above: Result Comment: REFE RENCE RANGE Males 0.14-2.06 ng/mL Non- Females Follicular 0.10-0.60 ng/mL Luteal 3.00-17.5 ng/mL Midluteal 3.30-18.6 ng/mL Post-Menopausal 0.10-0.40 ng/mL First Trimester 8.30-66.5 ng/mL Second Trimester 18.9-66.1 ng/mL Third Trimester 35.8-312.4 ng/mL Performed By: #### 1 0817025, 1816990, 0881336, 6359122, 8128029, 7478078, 58094256, 4309064 #### [facility] [address] [place] [address] TSHon 09-11-2019 TSH Qn 0.88 mcIU/mL Normal 0.34-5.[address] [facility] Comment on above: Performed By: #### 1 3061252, 0198308, 5087322, 0283615, 2863112, 9328015, 13801634, 9651338 #### [facility] [address] [place] [address] Coding Summary.on 09-10-2019 Coding Summary. CODING DATE: 019 FINAL [facility] STATUS: Home (Routine DC) PAYOR: Commercial [...] Putnam Date Saved: 09/10/2019 02:[address] [facility] Lipase Levelon 09-08-2019 Lipase [Catalytic activity/Vol] U/L High 13-[address] [facility] Comment on above: Result Comment: conf irmed by dilution Performed By: #### 1 3599623, 7384927, 6736128, 4223631, 8688342, 4271674, 97876800, 2383147 #### [facility] [address] [place] [address] BhCG Quanton 09-07-2019 HCG.beta subunit Qn 90 m[IU]/mL High 1-3 [facility] Comment on above: Result Comment: GEST ATIONAL AGE HCG RANGE (mIU/mL) NON- <1-3 0.2-1 WEEKS 5-50 1-2 WEEKS 50-500 2-3 WEEKS 100-5,000 3-4 WEEKS 500-10,000 4-5 WEEKS 1,000-50,000 5-6 WEEKS 10,000-100,000 6-8 WEEKS 15,000-200,000 8-12 WEEKS 10,000-100,000 Performed By: #### 1 8704897, 8629737, 7558553, 7235809, 6467586, 0228664, 77283591, 2996442 #### [facility] [address] [place] [address] Progesteroneon 09-07-2019 Progesterone [Mass/Vol] 23.40 ng/mL [facility] Comment on above: Result Comment: REFE RENCE RANGE Males 0.14-2.06 ng/mL Non- Females Follicular 0.10-0.60 ng/mL Luteal 3.00-17.5 ng/mL Midluteal 3.30-18.6 ng/mL Post-Menopausal 0.10-0.40 ng/mL First Trimester 8.30-66.5 ng/mL Second Trimester 18.9-66.1 ng/mL Third Trimester 35.8-312.4 ng/mL Performed By: #### 1 5012331, 1521544, 3073726, 1240353, 5575880, 3479911, 73239421, 7477530 #### [facility] [address] [place] [address] Coding Summary.on 09-05-2019 Coding Summary. CODING DATE: 019 [facility] STATUS: Home (Routine DC) PAYOR: Commercial Insurance [...] CphT Date Saved: 09/05/2019 01:[address] [facility] Estradiolon 09-05-2019 E2 [Mass/Vol] 799.5 pg/mL [facility] Comment on above: Result Comment: Adul t Female: Follicular phase 12.5 - 166.0 Ovulation phase 85.8 - 498.0 Luteal phase 43.8 - 211.0 Postmenopausal <6.0 - 54.7 1st trimester 215.0 - >4300.0 Girls (1-10 years) 6.0 - 27.0 Mal ECLIA methodology Performed at: [facility] [id number] PhD Subhash Coronel Performed By: #### 1 4494478, 4385582, 2915915, 5990977, 9166776, 7167066, 20599829, 1280105 #### [facility] [address] [place] [address] Progesteroneon 09-04-2019 Progesterone [Mass/Vol] 39.30 ng/mL [facility] Comment on above: Result Comment: REFE RENCE RANGE Males 0.14-2.06 ng/mL Non- Females Follicular 0.10-0.60 ng/mL Luteal 3.00-17.5 ng/mL Midluteal 3.30-18.6 ng/mL Post-Menopausal 0.10-0.40 ng/mL First Trimester 8.30-66.5 ng/mL Second Trimester 18.9-66.1 ng/mL Third Trimester 35.8-312.4 ng/mL Performed By: #### 1 0944377, 1824273, 5802372, 4233297, 3851331, 2191939, 50672078, 3329603 #### [facility] [address] [place] [address] TSHon 09-04-2019 TSH Qn 0.83 mcIU/mL Normal 0.34-5.[address] [facility] Comment on above: Performed By: #### 1 9722141, 5603679, 8478294, 3201366, 6292164, 8827452, 67681891, 8512778 #### [facility] [address] [place] [address] Coding Summary.on 08-23-2019 Coding Summary. CODING DATE: 019 FINAL [facility] STATUS: Home (Routine DC) PAYOR: Commercial [...] CphT Date Saved: 08/23/2019 01:[address] [facility] Estradiolon 08-23-2019 E2 [Mass/Vol] 903.5 pg/mL [facility] Comment on above: Result Comment: Adul t Female: Follicular phase 12.5 - 166.0 Ovulation phase 85.8 - 498.0 Luteal phase 43.8 - 211.0 Postmenopausal <6.0 - 54.7 1st trimester 215.0 - >4300.0 Girls (1-10 years) 6.0 - 27.0 Mal ECLIA methodology Performed at: [facility] [id number] PhD Subhash Coronel Performed By: #### 1 7354503, 4401077, 9403203, 7238196, 4388762, 7071395, 18405336, 2051797 #### [facility] [address] [place] [address] LHon 08-23-2019 Lutropin Qn 7.7 m[IU]/mL [facility] Comment on above: Result Comment: Adul t Female: Follicular phase 2.4 - 12.6 Ovulation phase 14.0 - 95.6 Luteal phase 1.0 - 11.4 Postmenopausal 7.7 - 58.5 Performed at: [address] [id number] PhD Subhash Coronel Performed By: #### 1 9776559, 0752998, 1516281, 2497194, 8705600, 2171781, 94717167, 6458299 #### [facility] [address] [place] [address] Progesteroneon 08-22-2019 Progesterone [Mass/Vol] ng/mL [facility] Comment on above: Result Comment: REFE RENCE RANGE Males 0.14-2.06 ng/mL Non- Females Follicular 0.10-0.60 ng/mL Luteal 3.00-17.5 ng/mL Midluteal 3.30-18.6 ng/mL Post-Menopausal 0.10-0.40 ng/mL First Trimester 8.30-66.5 ng/mL Second Trimester 18.9-66.1 ng/mL Third Trimester 35.8-312.4 ng/mL Performed By: #### 1 2663621, 1048698, 7839570, 3887238, 7974290, 9474425, 48015863, 9678420 #### [facility] [address] [place] [address] Coding Summary.on 08-16-2019 Coding Summary. CODING DATE: 019 FINAL [facility] STATUS: Home (Routine DC) PAYOR: Commercial [...] SantiagoTeri Date Saved: 08/16/2019 02:[address] [facility] Estradiolon 08-16-2019 E2 [Mass/Vol] 52.3 pg/mL [facility] Comment on above: Result Comment: Adul t Female: Follicular phase 12.5 - 166.0 Ovulation phase 85.8 - 498.0 Luteal phase 43.8 - 211.0 Postmenopausal <6.0 - 54.7 1st trimester 215.0 - >4300.0 Girls (1-10 years) 6.0 - 27.0 Mal ECLIA methodology Performed at: [address] [id number] PhD Subhash Coronel Performed By: #### 1 8795172, 8368210, 6302140, 8024000, 0916914, 6763589, 80001714, 1874886 #### [facility] [address] [place] [address] FSH and LHon 08-16-2019 Follitropin Qn 7.9 m[IU]/mL [facility] Comment on above: Result Comment: [facility] t Female: Follicular phase 3.5 - 12.5 Ovulation phase 4.7 - 21.5 Luteal phase 1.7 - 7.7 Postmenopausal 25.8 - 134.8 Performed at: [address] [id number] PhD Subhash Coronel Performed By: #### 1 4778907, 6831657, 9994830, 6403611, 7020418, 7450958, 14364457, 8301967 #### [facility] [address] [place] [address] Lutropin Qn 9.8 m[IU]/mL [facility] Comment on above: Result Comment: [facility] t Female: Follicular phase 2.4 - 12.6 Ovulation phase 14.0 - 95.6 Luteal phase 1.0 - 11.4 Postmenopausal 7.7 - 58.5 Performed By: #### 1 2909719, 2380058, 4431796, 7811823, 6134827, 9955127, 17132691, 4282314 #### [facility] [address] [place] [address] BhCG Quanton 08-15-2019 HCG.beta subunit Qn m[IU]/mL Normal 1-3 [facility] Comment on above: Result Comment: GEST ATIONAL AGE HCG RANGE (mIU/mL) NON- <1-3 0.2-1 WEEKS 5-50 1-2 WEEKS 50-500 2-3 WEEKS 100-5,000 3-4 WEEKS 500-10,000 4-5 WEEKS 1,000-50,000 5-6 WEEKS 10,000-100,000 6-8 WEEKS 15,000-200,000 8-12 WEEKS 10,000-100,000 Performed By: #### 1 1306098, 6831786, 7351812, 8704021, 0950441, 6489220, 19425049, 3822540 #### [facility] [address] [place] [address] Progesteroneon 08-15-2019 Progesterone [Mass/Vol] 0.20 ng/mL [facility] Comment on above: Result Comment: REFE RENCE RANGE Males 0.14-2.06 ng/mL Non- Females Follicular 0.10-0.60 ng/mL Luteal 3.00-17.5 ng/mL Midluteal 3.30-18.6 ng/mL Post-Menopausal 0.10-0.40 ng/mL First Trimester 8.30-66.5 ng/mL Second Trimester 18.9-66.1 ng/mL Third Trimester 35.8-312.4 ng/mL Performed By: #### 1 4212552, 2525771, 8637211, 9309443, 6710234, 9751812, 61985181, 3169765 #### [facility] [address] [place] [address] TSHon 08-15-2019 TSH Qn 1.05 mcIU/mL Normal 0.34-5.[address] [facility] Comment on above: Performed By: #### 1 1866665, 8880001, 4087819, 7281991, 9277657, 6370628, 52047817, 4458671 #### [facility] [address] [place] [address] Coding Summary.on 07-31-2019 Coding Summary. CODING DATE: 019 FINAL [facility] STATUS: Home (Routine DC) PAYOR: Commercial Insurance ADMIT DX: REASON FOR VISIT DX: K85.10 Biliary acute pancreatitis without necrosis or infection FINAL DX: PRINCIPAL: K85.10 Biliary acute pancreatitis without necrosis or infection SECONDARY: Z98.890 Other specified postprocedural states Z79.899 Other terminal carman (current) drug therapy PROCEDURES DOCTOR NAME DATE NOTE: The code number assigned matches the documented diagnosis and / or procedure in the patient's chart. However, the narrative phrase printed from the coding software may appear abbreviated, or result in slightly different terminology. Coded By: Teri Hill CphT Date Saved: 07/31/2019 10:[address] [facility] ED Note-Physicianon 07-28-20 ED Note-Physician Basic Information Time Seen: Oswaldo Fischer PA-C 07/17/2019 21:52 Chief Complaint pt has complaints of abdominal pain nausea and vomiting since 2am, states lab work done at [place] today liver enzymes were elevated history of [...] Bergeron discussed with Dr. Goel, trauma surgeon special education teaching assistant, and Dr. Alvarado, hospitalist special education teaching assistant, about patient, history, labs, and imaging findings consistent acute pancreatitis and common bile duct obstruction, patient be admitted to hospitalist services, and consult with Dr. Reddy, GI doctor on-call for possible ACADEMIC ADVISEMENT DIRECTOR in the morning. Dr. Alvarado admitted patient [...] was treated and evaluated by the Physician Oncology Transplant Network Manager. The attending physician was Dr. Bergeron in [...] Auto: 6.4 % Low (07/17/19 22:12:00 EDT) [place] Auto: 5.5 % (07/17/19 22:12:00 EDT) Eos Auto: 0.6 % (07/17/19 22:12:00 EDT) Basophil Auto: 0.3 % (07/17/19 22:12:00 EDT) Neutro Absolute: 11.3 E9/L High (07/17/19 22:12:00 EDT) Lymph Absolute: 0.8 E9/L Low (07/17/19 22:12:00 EDT) [place] Absolute: 0.7 E9/L (07/17/19 22:12:00 EDT) Eos [...] Diagnostic Results No qualifying data available. Normal [facility] Comment on above: Result Comment: Elec tronically Signed By: Oswaldo Fischer PA-C\.br\Date and Time Signed: 07/18/19 01:07 EDT\.br\Electronically Co-Signed By: Mehran Bergeron MD\.br\Date and Time Co-Signed: 07/28/19 08:12 EDT Progress Note-Physicianon Progress Note-Physician Chief Complaint Follow up from OR History of Present Illness SUKHDEV SCHWARTZ is a 33 Years Female who presented to [facility] on 07/18/2019 with gallstone pancreatitis. 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 Still waiting for [facility] paperwork which she'll fax to us. [...] a 33 Years Female who presented to [facility] on 07/18/2019 with gallstone pancreatitis and is now POD#9 s/p lap aidee. She is recovering well. She can keep covering the periumbilical incision with Bandaid until it heals. I reviewed path report with her. She can follow-up with us PRN. We will fill out [facility] paperwork for her when we receive [...] REACTIVE LYMPH NODE WITH FOLLICULAR HYPERPLASIA. Normal [facility] Comment on above: Result Comment: Elec tronically Signed By: Garrett GUSTAFSON, Marina Fields\.br\Date and Time Signed: 07/28/19 09:13 EDT Coding Summary.on 07-24-2019 Coding Summary. CODING DATE: 019 FINAL [facility] STATUS: Home (Routine DC) PAYOR: Commercial Insurance Grouper: 419 MS-DRG Laparoscopic cholecystectomy w/o c.d.e. w/o CC/INTERMEDIATE Low Trim 0 High Trim 999 263 [...] (BMI) 34.0-34.9, adult PROCEDURES DOCTOR NAME DATE [id number] Resection of Gallbladder, Amando GUSTAFSON, Javan Stevens 07/19/2019 Percutaneous Endoscopic Approach [id number] Extirpation of Matter from Abhinav REDDY MD 07/18/2019 Common Bile Duct, Via Natural or Artificial Opening Endoscopic [id number] Fluoroscopy of Bile Ducts using Abhinav REDDY MD 07/18/2019 Low Osmolar Contrast NOTE: The code number assigned matches the documented diagnosis and / or procedure in the patient's chart. However, the narrative phrase printed from the coding software may appear abbreviated, or result in slightly different terminology. Revised Coded By: Kat Del Rosario Revised Date Saved: 07/24/2019 07:[address] [facility] Progress Note-Physicianon Progress Note-Physician Patient: SUKHDEV [...] All Problems Ovarian dysfunction / SNOMED CT 92278399 / Confirmed Hypothyroidism / SNOMED CT 95168781 / Confirmed Pancreatitis / SNOMED CT 088002210 / Confirmed Histories Past Medical History: No [...] Cardiovascular: Regular rhythm. Neurologic: Alert, Oriented. Plan [place] [employer] Anesthesiologists (ASA) physical status classification: Class II. Anesthetic Preoperative Plan Anesthesia: General. . Anesthetic plan, risks, benefits, and alternatives discussed with the patient and/or family. Communication: face to face with (patient 5 minutes, Patient educated on smoking cesstation). Normal [facility] Comment on above: Result Comment: Elec [...] then closed the umbilical fascia with multiple cbsjdw-[id number] 0 Vicryl sutures, then tied the stay [...] Gallbladder Javan Goel MD aek Dictated: 07/19/2019 #[id number] Typed: 07/20/2019 #[id number] cc: Javan Goel MD Normal [facility] Comment on above: Result Comment: Elec tronically Signed By: Amando GUSTAFSON, Javan Stevens\.br\Date and Time Signed: 07/20/19 11:04 EDT Auto Diffon 07-19-2019 Basophils/100 WBC (Bld) 0.2 % Normal 0.0-2.[address] [facility] Comment on above: Order Comment: Order Added by Discern Expert. Performed By: #### 1 5920422, 8408091, 7087224, 4849264, 8056457, 4661386, 63070370, 4568261 #### [facility] [address] [place] [address] Basophils/Leukocyte s Auto (Bld) [Pure # fraction] 0.0 E9/L Normal 0.0-0.[address] [facility] Comment on above: Order Comment: Order Added by Discern Expert. Performed By: #### 1 1898327, 2336555, 6140631, 1100572, 6708525, 3153280, 46006263, 0783344 #### [facility] [address] [place] [address] Eosinophils/100 WBC (Bld) 1.1 % Normal 0.0-8.[address] [facility] Comment on above: Order Comment: Order Added by Discern Expert. Performed By: #### 1 5848885, 7821189, 7551693, 1895537, 2267439, 5674333, 59950340, 0025303 #### [facility] [address] [place] [address] Eosinophils/Leukocy dariel Auto (Bld) [Pure # fraction] 0.1 E9/L Normal 0.0-0.[address] [facility] Comment on above: Order Comment: Order Added by Discern Expert. Performed By: #### 1 2615970, 3376937, 2743746, 0949762, 7482942, 7310918, 96795149, 4444243 #### [facility] [address] [place] [address] Lymphocytes/100 WBC (Bld) 11.9 % Low 14.0-50.[address] [facility] Comment on above: Order Comment: Order Added by Discern Expert. Performed By: #### 1 6070985, 4067748, 3395701, 0840327, 0584935, 3165938, 87913088, 0236836 #### [facility] [address] [place] [address] Lymphocytes/Leukocy dariel Auto (Bld) [Pure # fraction] 1.1 E9/L Normal 1.0-4.[address] [facility] Comment on above: Order Comment: Order Added by Discern Expert. Performed By: #### 1 3548902, 2260739, 7527385, 2636385, 0110793, 7165635, 47564068, 3191493 #### [facility] [address] [place] [address] Monocytes/100 WBC (Bld) 5.8 % Normal 4.0-14.[address] [facility] Comment on above: Order Comment: Order Added by Discern Expert. Performed By: #### 1 0390577, 5139378, 6334912, 8444696, 2788784, 1864391, 08088085, 3013177 #### [facility] [address] [place] [address] Monocytes/Leukocyte s Auto (Bld) [Pure # fraction] 0.5 E9/L Normal 0.2-1.[address] [facility] Comment on above: Order Comment: Order Added by Discern Expert. Performed By: #### 1 8178132, 6426031, 3457167, 7603864, 5640290, 4340052, 82107103, 8781732 #### [facility] [address] [place] [address] Neutrophils/100 WBC (Bld) 81.0 % High 36.0-75.[address] [facility] Comment on above: Order Comment: Order Added by Discern Expert. Performed By: #### 1 5566189, 9467632, 3914972, 9557767, 5916868, 0998408, 90612498, 6363885 #### [facility] [address] [place] [address] Neutrophils/Leukocy dariel Auto (Bld) [Pure # fraction] 7.3 E9/L Normal 2.0-7.[address] [facility] Comment on above: Order Comment: Order Added by Discern Expert. Performed By: #### 1 3110698, 1397417, 6235683, 6680087, 8908760, 0970138, 88807071, 2167243 #### [facility] [address] [place] [address] CBC w/ Auto Diffon Erythrocyte distribution width (RBC) [Ratio] 13.6 % Normal 10.9-14.[address] [facility] Comment on above: Performed By: #### 1 7463207, 6661242, 0608819, 2990787, 9087528, 1350294, 84174830, 3264705 #### [facility] [address] [place] [address] Hematocrit (Bld) [Volume fraction] 30.5 % Low 34.0-46.[address] [facility] Comment on above: Performed By: #### 1 1214697, 4290152, 4603032, 1415512, 7574542, 5596170, 47628449, 5768265 #### [facility] [address] [place] [address] Hemoglobin (Bld) [Mass/Vol] 10.8 g/dL Low 12.0-16.[address] [facility] Comment on above: Performed By: #### 1 9126527, 8525549, 2866224, 4960074, 4238127, 2517198, 94543485, 5178069 #### [facility] [address] [place] [address] MCH (RBC) [Entitic mass] 31.4 pg Normal 27.0-34.[address] [facility] Comment on above: Performed By: #### 1 4533357, 2062324, 1689517, 3465538, 0633218, 6038822, 09540124, 0815817 #### [facility] [address] [place], [place] [address] MCHC (RBC) [Mass/Vol] 35.2 g/dL Normal 33.3-35.[address] [facility] Comment on above: Performed By: #### 1 6681179, 1540197, 1012090, 0842517, 6469191, 4613041, 00045180, 8769406 #### [facility] [address] [place] [address] MCV (RBC) [Entitic vol] 89.0 fL Normal 80.0-100.[address] [facility] Comment on above: Performed By: #### 1 4777894, 7416907, 9485284, 7361056, 1589075, 7016958, 76785068, 9526546 #### [facility] [address] [place] [address] Platelet mean volume (Bld) [Entitic vol] 7.4 fL Normal 6.4-10.[address] [facility] Comment on above: Performed By: #### 1 0606929, 0797009, 1279891, 7426993, 8844119, 6844939, 23572658, 0895823 #### [facility] [address] [place] [address] Platelets (Bld) [#/Vol] 206.0 E9/L Normal 150.0-500.[address] [facility] Comment on above: Performed By: #### 1 6496884, 4999577, 3397908, 3739105, 0425642, 4889145, 15298203, 4477983 #### [facility] [address] [place], [place] [address] RBC (Bld) [#/Vol] 3.4 E12/L Low 4.3-5.[address] [facility] Comment on above: Performed By: #### 1 6606422, 2677125, 2728752, 1989109, 4114988, 0236414, 05630785, 8271898 #### [facility] [address] [place] [address] WBC corrected for nucl RBC Auto (Bld) [#/Vol] 9.0 E9/L Normal 4.0-11.[address] [facility] Comment on above: Performed By: #### 1 5454629, 8920401, 3455196, 5478549, 8335626, 3778071, 13531475, 7702929 #### [facility] [address] [place] [address] CMPon 07-19-2019 Albumin [Mass/Vol] 3.1 g/dL Low 3.3-5.[address] [facility] Comment on above: Performed By: #### 1 3723604, 2442550, 1497414, 7308448, 5804230, 8794178, 80829726, 7132112 #### [facility] [address] [place], [place] [address] Albumin [Mass/Vol] 1.3 g/dL Normal 1.1-2.[address] [facility] Comment on above: Performed By: #### 1 1453401, 8259841, 4367119, 2371446, 2919466, 9000362, 28306299, 3945910 #### [facility] [facility] [address] [place] [address] ALP [Catalytic activity/Vol] 64 Int._Unit/L Normal 21-[address] [facility] Comment on above: Performed By: #### 1 9155107, 7610864, 2288738, 8773179, 8697862, 2641700, 97871027, 5623255 #### [facility] [address] [place] [address] ALT No additional P-5'-P [Catalytic activity/Vol] 77 Int._Unit/L High 6-[address] [facility] Comment on above: Performed By: #### 1 7804692, 6729513, 0833504, 7200693, 6445477, 9394441, 41888769, 8343695 #### [facility] [address] [place] [address] AST [Catalytic activity/Vol] 32 Int._Unit/L Normal 5-[address] [facility] Comment on above: Performed By: #### 1 5687054, 0336078, 3161905, 0089295, 6092256, 3556181, 76023401, 6699633 #### [facility] [address] [place] [address] Bilirubin [Mass/Vol] 1.2 mg/dL High 0.0-1.[address] [facility] Comment on above: Performed By: #### 1 6500027, 6841597, 8878179, 9603242, 3769804, 3076958, 95605273, 4029784 #### [facility] [address] [place] [address] Creatinine [Mass/Vol] 0.6 mg/dL Normal 0.5-1.[address] [facility] Comment on above: Performed By: #### 1 4000669, 9227995, 3189404, 2111381, 5557568, 6762965, 62293192, 2003921 #### [facility] [address] [place] [address] Globulin (S) [Mass/Vol] 2.4 g/dL Normal 1.4-4.[address] [facility] Comment on above: Performed By: #### 1 0800663, 6155814, 7133529, 5962167, 1159875, 7712861, 68183431, 3529301 #### [facility] [address] [place] [address] Protein [Mass/Vol] 5.5 g/dL Low 6.0-7.[address] [facility] Comment on above: Performed By: #### 1 4834228, 6786309, 3547818, 0264310, 3235143, 2989728, 99942831, 6457937 #### [facility] [address] [place] [address] Urea nitrogen [Mass/Vol] 10 mg/dL Normal 5-[address] [facility] Comment on above: Performed By: #### 1 3868412, 1715271, 3311373, 8311821, 9486287, 8295396, 16312386, 9384364 #### [facility] [address] [place] [address] Urea nitrogen/Creatinine [Mass ratio] 17 No Units Normal 10-[address] [facility] Comment on above: Performed By: #### 1 9238807, 0043110, 3616697, 4753136, 8881029, 4390038, 83869962, 2642651 #### [facility] [address] [place] [address] Anion gap [Moles/Vol] 12 mmol/L Normal 6-[address] [facility] Comment on above: Performed By: #### 1 7790449, 6192723, 7470061, 4792132, 1369323, 1909009, 46809078, 4906184 #### [facility] [address] [place] [address] Calcium [Mass/Vol] 8.5 mg/dL Low 8.9-11.[address] [facility] Comment on above: Performed By: #### 1 2824584, 5136167, 3094447, 3757585, 5664412, 4637572, 57363212, 4790171 #### [facility] [address] [place] [address] Chloride [Moles/Vol] 109 mmol/L Normal 101-[address] [facility] Comment on above: Performed By: #### 1 9047187, 8336105, 6191161, 4666341, 6049958, 8089825, 67158652, 4444658 #### [facility] [address] [place] [address] CO2 [Moles/Vol] 22 mmol/L Normal 21-31 [facility] Comment on above: Performed By: #### 1 0218504, 6755584, 1436340, 2362587, 1606307, 8132485, 22398471, 2143301 #### [facility] [address] [place] [address] Glucose [Mass/Vol] 99 mg/dL Normal 55-[address] [facility] Comment on above: Result Comment: If t his glucose result represents a fasting glucose, interpretation should refer to the following reference range: 55-99 mg/dL Performed By: #### 1 3944236, 0324583, 7350928, 8657685, 9601883, 3406961, 94012527, 3715798 #### [facility] [address] [place] [address] Potassium [Moles/Vol] 3.7 mmol/L Normal 3.5-5.[address] [facility] Comment on above: Performed By: #### 1 7405231, 9463031, 8299042, 4851114, 5532364, 4276817, 07051308, 2997964 #### [facility] [address] [place] [address] Sodium [Moles/Vol] 139 mmol/L Normal 135-[address] [facility] Comment on above: Performed By: #### 1 0707156, 5009244, 9869600, 3240501, 9860571, 0436870, 70378559, 5633195 #### [facility] [address] [place] [address] Discharge Note-Nursingon Discharge Note-Nursing Pt taken to sweet pickle maker exit with belongings by wheelchair and discharged home with family per personal vehicle Normal [facility] Inpatient Clinical Summaryon 07-19-2019 Inpatient Clinical Summary [address] [address] Clinical Summary Person Information: Name: SUKHDEV SCHWARTZ Age: 33 Years : 1985 12:00 AM Sex: Female PCP: LOLI MATIAS MD Marital Status: Phone: [phone] Race: White Ethnicity: Non- or Language: Italian Visit Id: Visit Reason: Vomiting; Nausea; Abdominal pain; COMMON DUCT OBSTRUCTION, ACUTE PANCREATITIS Speciality: Acuity: Enc Type: Inpatient Med Service: Medical Arrival: 07/17/2019 8:55 PM Discharge: Dispo Type: Admitted as IP to this [facility] Address: [address] [place] [address] [address] [place] [phone] Provider Notes: Diagnosis: 1:Acute gallstone pancreatitis; 2:Abnormal [...] Follow up: With: Address: When: Javan Brennan [facility], [address], [address] [address] [phone] Business (1) Within 7 to 10 days With: Address: When: [place] [address] Business (1) 08/07/2019 7:30 AM Type Location Start [facility] Follow Up [facility] 09/12/2019 2:00 PM 09/12/2019 2:15 PM Confirmed Patient Education Information: Cholecystostomy Normal [facility] Inpatient Patient Summaryon 07-19-2019 Inpatient Patient Summary [address] [address] Patient Discharge Instructions PERSON INFORMATION Name: SUKHDEV [...] Follow up: With: Address: When: Javan Goel [address] [place] [address], [address], [address] [phone] Business (1) Within 7 to 10 days With: Address: When: LOLI MATIAS [address] [place] [address] Business (1) 08/07/2019 7:30 AM In the event that this physician does not participate in your insurance network, please consult with your insurance company to find a nearby participating provider. Type Location Start [facility] 09/12/2019 2:00 PM 09/12/2019 2:15 PM Confirmed Comment: JAMES Bain BRITTANY F, have received the attached patient education materials/instructions and have verbalized understanding: Patient Signature __ Date Clinican/Nurse Signature Date HERE ARE THE MEDICATION CHANGES THAT OCCURRED DURING YOUR HOSPITAL STAY New Medications [facility], [address] [place] [id number], [phone] acetaminophen-hydrocodone (acetaminophen-hydrocodone 325 mg-5 mg oral tablet) [...] Mouth 2 times a day. Pharmacy Information: [facility] Comment: PATIENT EDUCATION INFORMATION Instructions: [...] Document Reviewed: 12/31/2009 ExitCare? Patient Information ?2014 Alex [employer] Ani. This information is not intended to replace advice given to you by your health care provider. Make sure you discuss any questions you have with your health care provider. Medication Leaflets: Thank you for choosing [facility] Normal [facility] Interdisciplinary Note - Arcadio e Manageron 07-19-2019 INR Coag (Bld) [Relative time] Rounding with Dr. Benjamin, Felicia [facility], Rosie [facility], and Agustina GOODRICH with another patient . [...] will update family on dc plans. Normal [facility] Comment on above: Result Comment: Elec tronically Signed By: Andrzej GOODRICH, Felicia\.br\Date and Time Signed: 07/19/19 09:10 EDT Main OR Intraoperative Recor don 07-19-2019 Main OR Intraoperative Record IntraOp Document Type FT Summary Primary Physician: Javan Goel MD Finalized Date/Time: 07/19/19 14:22:14 Pt. Name: SUKHDEV SCHWARTZ D.O.B./Sex: 1985 Female Med Rec #: [id number] Physician: Aron ALVARADO DO Financial #: [id number] Pt. Type: I Room/Bed: 06 Admit/Disch: 07/17/19 [...] RN Role Performed Anesthesiologist Surgeon - Primary MOLD MACHINE OPERATOR Oncology Transplant Network Manager Time In 07/19/19 10:51:00 07/19/19 10:51:00 07/19/19 10:51:00 Time Out 07/19/19 13:18:00 07/19/19 12:56:00 07/19/19 13:18:00 Procedure CHOLECYSTECTOMY CHOLECYSTECTOMY CHOLECYSTECTOMY LAPAROSCOPIC W/ LAPAROSCOPIC W/ LAPAROSCOPIC W/ CHOLANGI(.) CHOLANGI(.) CHOLANGI(.) Comments DR GARVIN OUT FOR LUNCH FROM SUPERVISING.GERI [phone] WANDER GRAY-OUT TO LUNCH FROM [phone]. Last Modified By: Luis Fernando RN, Tosha Gould RN, Tosha Stewart RN 07/19/19 13:22:30 07/19/19 13:22:30 07/19/19 13:22:30 Entry 4 Entry 5 Entry 6 Case Attendee Armaan VILLAGOMEZ, Mónica Gould RN, Tosha Wright RNRavi Role Performed Scrub - Primary Aluminum Hydroxide Process Operator - Primary Aluminum Hydroxide Process Operator - Relief Time In 07/19/19 10:51:00 07/19/19 10:51:00 07/19/19 11:04:00 Time Out 07/19/19 13:18:00 07/19/19 13:18:00 07/19/19 11:40:00 Procedure CHOLECYSTECTOMY CHOLECYSTECTOMY CHOLECYSTECTOMY LAPAROSCOPIC W/ LAPAROSCOPIC W/ LAPAROSCOPIC W/ CHOLANGI(.) CHOLANGI(.) CHOLANGI(.) Comments OUT FOR LUNCH FROM OUT TO LUNCH FROM [phone] Last Modified By: Luis Fernando GOODRICH, Tosha Gould RN, Tosha Stewart RN 07/19/19 13:22:30 07/19/19 13:22:30 07/19/19 13:22:30 Entry 7 Entry 8 Entry 9 Case Attendee Adalid VILLAGOMEZ, Bert Vázquez COMPUTER SYSTEMS SUPPORT SPECIALIST/SA, Tosha Wolf CST Performed COMPUTER SYSTEMS SUPPORT SPECIALIST/SA Scrub - Relief Scrub - Other Time In 07/19/19 11:00:00 07/19/19 11:00:00 07/19/19 11:31:00 Time Out 07/19/19 11:35:00 07/19/19 11:35:00 07/19/19 13:18:00 Procedure CHOLECYSTECTOMY CHOLECYSTECTOMY CHOLECYSTECTOMY LAPAROSCOPIC W/ LAPAROSCOPIC W/ LAPAROSCOPIC W/ CHOLANGI(.) CHOLANGI(.) CHOLANGI(.) Comments HOLDING CAMERA Last Modified By: Luis Fernando GOODRCIH, Tosha Gould RN, Tosha Stewart RN 07/19/19 [...] 11:19:00 Outcomes Met? Yes Last Modified By: Raiv Wright RN 07/19/19 11:25:07 Post-Care Text: The [...] tissue Entry 1 Skin Integrity Bruised, Intact, [place], Skin Abnormality Yes Warm, and Dry Abnormality [...] Rails Up PostOp Destination PACU Transported By Tosah Gould RN Patient Status Stable Skin. Condition [...] Type TUBE NASOGASTIC SUMP Location MOUTH 18FR [[id number]][F] Quantity 1 Inserted By Geri Guerrero Present [...] Present Upon Arrival No Inserted LF 16FR [[id number]][F] Insertion Date/Time 07/19/19 11:09:00 Urine Residual 350 [...] BLANKET MISTRAL AIR Quantity 1 Aid TORSO [[id number]][F] Fluid/[place] Unit Mistral warming system Setting HIGH/43C Body Site Upper anterior torso Last Modified By: Tosha Gould RN 07/19/19 10:34:51 Case Comments Finalized By: Juanita Stein CST Document Signatures Signed By: Tosha Gould RN 07/19/19 13:23 Juanita Stein CST 07/19/19 14:[address] [facility] Main OR PACU I Recordon Main OR PACU I Record PACU Phase I Document Type FT Summary Primary Physician: Javan Goel MD Finalized Date/Time: 07/19/19 13:51:28 Pt. Name: SUKHDEV SCHWARTZ/Sex: 1985 Female Med Rec #: [id number] Physician: Aron ALVARADO DO Financial #: [id number] Pt. Type: I Room/Bed: [place] [address] Admit/Disch: 07/17/19 20:55:00 - Institution: Case Times [...] By: Mariama Cadena RN 07/19/19 13:[address] [facility] Main OR Preoperative Recordo n 07-19-2019 Main OR Preoperative Record PreOp Document Type FT Summary Primary Physician: Javan Goel MD Finalized Date/Time: 07/19/19 11:50:30 Pt. Name: SUKHDEV SCHWARTZ Antoni HoltB./Sex: 1985 Female Med Rec #: [id number] Physician: Aron ALVARADO DO Financial #: [id number] Pt. Type: I Room/Bed: [facility] Admit/Disch: 07/17/19 20:55:00 - Institution: Case [...] By: Tosha Gould RN 07/19/19 11:[address] [facility] Progress Note-Physicianon Progress Note-Physician ACUTE CARE [...] Auto: 11.9 % Low (07/19/19 05:39:00 EDT) [place] Auto: 5.8 % (07/19/19 05:39:00 EDT) Eos Auto: 1.1 % (07/19/19 05:39:00 EDT) Basophil Auto: 0.2 % (07/19/19 05:39:00 EDT) Neutro Absolute: 7.3 E9/L (07/19/19 05:39:00 EDT) Lymph Absolute: 1.1 E9/L (07/19/19 05:39:00 EDT) [place] Absolute: 0.5 E9/L (07/19/19 05:39:00 EDT) Eos [...] Goel MD Trauma/Critical Care/Acute Care Surgery Attending [facility] Comment on above: Result Comment: Elec tronically Signed By: Amando GUSTAFSON, Javan J\.br\Date and Time Signed: 07/19/19 10:32 EDT eGFRon 07-19-2019 GFR/1.73 sq M predicted among blacks MDRD (S/P/Bld) [Vol rate/Area] mL/min/{1.73_m2} Normal >=[address] [facility] Comment on above: Order Comment: Order added by Discern Expert. Result Comment: eGFR is race adjusted. AA=. Performed By: #### 1 7048181, 4109679, 2937153, 4512258, 8943938, 1079918, 10296349, 6386932 #### [facility] [address] [place] [address] GFR/1.73 sq M predicted among non-blacks MDRD (S/P/Bld) [Vol rate/Area] mL/min/{1.73_m2} Normal >=[address] [facility] Comment on above: Order Comment: Order added by Discern Expert. Result Comment: Summer Intern[employer] ivan kidney disease could be indicated at eGFR's of less than 60 mL/min/1.73m2. Kidney failure is indicated at less than 15 mL/min/1.73m2. Performed By: #### 1 4673638, 8642602, 0476719, 2839380, 5589645, 7484885, 22135554, 3596580 #### [facility] [address] [place] [address] Auto Diffon 07-18-2019 Basophils/100 WBC (Bld) 0.4 % Normal 0.0-2.[address] [facility] Comment on above: Order Comment: Order Added by Discern Expert. Performed By: #### 1 7311842, 0940995, 7241389, 3534458, 5514561, 9605365, 29709167, 4736670 #### [facility] [address] [place] [address] Basophils/Leukocyte s Auto (Bld) [Pure # fraction] 0.0 E9/L Normal 0.0-0.[address] [facility] Comment on above: Order Comment: Order Added by Discern Expert. Performed By: #### 1 8898788, 9247117, 6810241, 4509762, 1664288, 5520422, 68330394, 1712299 #### [facility] [address] [place] [address] Eosinophils/100 WBC (Bld) 0.4 % Normal 0.0-8.[address] [facility] Comment on above: Order Comment: Order Added by Discern Expert. Performed By: #### 1 2376033, 5478293, 7743006, 2579819, 9998440, 0386999, 70673035, 0660885 #### [facility] [address] [place] [address] Eosinophils/Leukocy dariel Auto (Bld) [Pure # fraction] 0.0 E9/L Normal 0.0-0.[address] [facility] Comment on above: Order Comment: Order Added by Discern Expert. Performed By: #### 1 4869607, 6439085, 5147464, 5015824, 0623456, 6156892, 88400354, 6170541 #### [facility] [address] [place] [address] Lymphocytes/100 WBC (Bld) 19.3 % Normal 14.0-50.[address] [facility] Comment on above: Order Comment: Order Added by Discern Expert. Performed By: #### 1 9144987, 4154787, 8287846, 8238292, 9747627, 3953754, 73248692, 4034549 #### [facility] [address] [place] [address] Lymphocytes/Leukocy dariel Auto (Bld) [Pure # fraction] 1.5 E9/L Normal 1.0-4.[address] [facility] Comment on above: Order Comment: Order Added by Discern Expert. Performed By: #### 1 7792468, 2450675, 4935648, 3714819, 4333033, 8989354, 20704307, 4280882 #### [facility] [address] [place] [address] Monocytes/100 WBC (Bld) 6.4 % Normal 4.0-14.[address] [facility] Comment on above: Order Comment: Order Added by Discern Expert. Performed By: #### 1 2912492, 7970960, 9247240, 2411169, 0116643, 4678179, 35787280, 8983438 #### [facility] [address] [place] [address] Monocytes/Leukocyte s Auto (Bld) [Pure # fraction] 0.5 E9/L Normal 0.2-1.[address] [facility] Comment on above: Order Comment: Order Added by Discern Expert. Performed By: #### 1 6416231, 8037682, 4494974, 2572478, 6767163, 9474080, 74149038, 8765418 #### [facility] [address] [place] [address] Neutrophils/100 WBC (Bld) 73.5 % Normal 36.0-75.[address] [facility] Comment on above: Order Comment: Order Added by Discern Expert. Performed By: #### 1 0739520, 4439362, 3114599, 2470217, 7540989, 2877636, 82532178, 6443025 #### [facility] [address] [place] [address] Neutrophils/Leukocy dariel Auto (Bld) [Pure # fraction] 5.7 E9/L Normal 2.0-7.[address] [facility] Comment on above: Order Comment: Order Added by Discern Expert. Performed By: #### 1 6558545, 2237912, 7526892, 7917018, 5919314, 9197139, 38724459, 5451385 #### [facility] [address] [place] [address] Basophils/100 WBC (Bld) 0.3 % Normal 0.0-2.[address] [facility] Comment on above: Order Comment: Order Added by Discern Expert. Performed By: #### 1 1703229, 6023334, 2820508, 6565309, 3962968, 2518342, 18125099, 2419258 #### [facility] [address] [place] [address] Basophils/Leukocyte s Auto (Bld) [Pure # fraction] 0.0 E9/L Normal 0.0-0.[address] [facility] Comment on above: Order Comment: Order Added by Discern Expert. Performed By: #### 1 5260519, 2847213, 5057472, 5613988, 9865985, 1266353, 00173165, 5280701 #### [facility] [address] [place] [address] Eosinophils/100 WBC (Bld) 0.6 % Normal 0.0-8.[address] [facility] Comment on above: Order Comment: Order Added by Discern Expert. Performed By: #### 1 0306151, 6015504, 8828993, 4483748, 4350959, 3395840, 15799225, 2098436 #### [facility] [address] [place] [address] Eosinophils/Leukocy dariel Auto (Bld) [Pure # fraction] 0.1 E9/L Normal 0.0-0.[address] [facility] Comment on above: Order Comment: Order Added by Discern Expert. Performed By: #### 1 0232934, 0375337, 1910203, 1031278, 2294854, 5489014, 94663265, 9003920 #### [facility] [address] [place] [address] Lymphocytes/100 WBC (Bld) 6.4 % Low 14.0-50.[address] [facility] Comment on above: Order Comment: Order Added by Discern Expert. Performed By: #### 1 0594398, 1678346, 0773606, 6558970, 0933344, 5128392, 84868630, 5364519 #### [facility] [address] [place] [address] Lymphocytes/Leukocy dariel Auto (Bld) [Pure # fraction] 0.8 E9/L Low 1.0-4.[address] [facility] Comment on above: Order Comment: Order Added by Discern Expert. Performed By: #### 1 4268367, 0044893, 3723306, 4745526, 3405188, 5220133, 81377004, 9261623 #### [facility] [address] [place] [address] Monocytes/100 WBC (Bld) 5.5 % Normal 4.0-14.[address] [facility] Comment on above: Order Comment: Order Added by Discern Expert. Performed By: #### 1 6100172, 4598615, 7086376, 7214165, 3832346, 7042217, 74992341, 0840572 #### [facility] [address] [place] [address] Monocytes/Leukocyte s Auto (Bld) [Pure # fraction] 0.7 E9/L Normal 0.2-1.[address] [facility] Comment on above: Order Comment: Order Added by Discern Expert. Performed By: #### 1 4273345, 5931853, 6087919, 1033101, 6328376, 1185512, 02712612, 8832308 #### [facility] [address] [place] [address] Neutrophils/100 WBC (Bld) 87.2 % High 36.0-75.[address] [facility] Comment on above: Order Comment: Order Added by Discern Expert. Performed By: #### 1 3802104, 6823026, 4761362, 9150034, 5866529, 0335680, 38177208, 6800409 #### [facility] [address] [place] [address] Neutrophils/Leukocy dariel Auto (Bld) [Pure # fraction] 11.3 E9/L High 2.0-7.[address] [facility] Comment on above: Order Comment: Order Added by Discern Expert. Performed By: #### 1 8921640, 9204296, 3959687, 6564650, 3069772, 1299088, 11679081, 6275088 #### [facility] [address] [place] [address] BMPon 07-18-2019 Urea nitrogen/Creatinine [Mass ratio] 22 No Units High 10-[address] [facility] Comment on above: Performed By: #### 1 7854399, 2678905, 6935650, 4668046, 6703638, 3492077, 99626221, 4876341 #### [facility] [address] [place] [address] Creatinine [Mass/Vol] 0.5 mg/dL Normal 0.5-1.[address] [facility] Comment on above: Performed By: #### 1 4772997, 1060288, 3923769, 1465659, 8379969, 1600515, 46286505, 1321987 #### [facility] [address] [place] [address] Urea nitrogen [Mass/Vol] 11 mg/dL Normal 5-[address] [facility] Comment on above: Performed By: #### 1 7888497, 1903490, 9040024, 2166241, 0322767, 6991219, 85369091, 2314134 #### [facility] [address] [place] [address] Anion gap [Moles/Vol] 12 mmol/L Normal 6-[address] [facility] Comment on above: Performed By: #### 1 9930089, 6515692, 1089905, 3850236, 9874092, 7569409, 93029331, 1869146 #### [facility] [address] [place] [address] Calcium [Mass/Vol] 8.8 mg/dL Low 8.9-11.[address] [facility] Comment on above: Performed By: #### 1 3301298, 0132028, 3508876, 9627119, 3159666, 5106542, 40105385, 6022902 #### [facility] [address] [place] [address] Chloride [Moles/Vol] 109 mmol/L Normal 101-[address] [facility] Comment on above: Performed By: #### 1 3391755, 9746832, 6929876, 8821319, 9623696, 5692466, 38743406, 0210848 #### [facility] [address] [place] [address] CO2 [Moles/Vol] 24 mmol/L Normal 21-31 [facility] Comment on above: Performed By: #### 1 9336365, 2007745, 7573707, 9779437, 2823410, 6557897, 24384845, 4893832 #### [facility] [address] [place] [address] Glucose [Mass/Vol] 104 mg/dL Normal 55-[address] [facility] Comment on above: Result Comment: If t his glucose result represents a fasting glucose, interpretation should refer to the following reference range: 55-99 mg/dL Performed By: #### 1 7763696, 2099820, 0298043, 2752175, 0133034, 1965849, 23802083, 6481966 #### [facility] [address] [place] [address] Potassium [Moles/Vol] 3.8 mmol/L Normal 3.5-5.[address] [facility] Comment on above: Performed By: #### 1 3745958, 1328433, 9163184, 9625746, 9023081, 3696850, 18356304, 2086389 #### [facility] [address] [place] [address] Sodium [Moles/Vol] 141 mmol/L Normal 135-[address] [facility] Comment on above: Performed By: #### 1 2504193, 7574834, 0845023, 8926340, 9431641, 7862771, 13057698, 2059974 #### [facility] [address] [place] [address] Creatinine [Mass/Vol] 0.5 mg/dL Normal 0.5-1.[address] [facility] Comment on above: Performed By: #### 1 2457223, 3974957, 3313039, 0435433, 3301386, 7698893, 65021005, 8751254 #### [facility] [address] [place] [address] Urea nitrogen [Mass/Vol] 13 mg/dL Normal 5-[address] [facility] Comment on above: Performed By: #### 1 4207073, 0324309, 6305241, 5983961, 6519750, 7657503, 78540064, 1372460 #### [facility] [address] [place] [address] Urea nitrogen/Creatinine [Mass ratio] 26 No Units High 10-[address] [facility] Comment on above: Performed By: #### 1 3186229, 5192887, 4446021, 6176639, 0735908, 8202716, 57203872, 6975079 #### [facility] [address] [place] [address] Anion gap [Moles/Vol] 13 mmol/L Normal 6-[address] [facility] Comment on above: Performed By: #### 1 4338201, 7021622, 0071731, 3605116, 8427773, 8905503, 96274031, 0653939 #### [facility] [address] [place] [address] Calcium [Mass/Vol] 9.3 mg/dL Normal 8.9-11.[address] [facility] Comment on above: Performed By: #### 1 4451512, 9576545, 6260451, 7333521, 7095986, 3709280, 57094949, 5467957 #### [facility] [address] [place] [address] Chloride [Moles/Vol] 105 mmol/L Normal 101-[address] [facility] Comment on above: Performed By: #### 1 1371822, 2771259, 2820015, 4822238, 8251720, 6656132, 18894277, 4599265 #### [facility] [address] [place] [address] CO2 [Moles/Vol] 26 mmol/L Normal 21-31 [facility] Comment on above: Performed By: #### 1 6378236, 0345811, 9388617, 5258458, 2106085, 2840400, 70820920, 1209131 #### [facility] [address] [place] [address] Glucose [Mass/Vol] 107 mg/dL Normal 55-[address] [facility] Comment on above: Result Comment: If t his glucose result represents a fasting glucose, interpretation should refer to the following reference range: 55-99 mg/dL Performed By: #### 1 5307673, 6907479, 7381068, 8080544, 8769474, 4959911, 73754534, 2518411 #### [facility] [address] [place] [address] Potassium [Moles/Vol] 3.7 mmol/L Normal 3.5-5.[address] [facility] Comment on above: Performed By: #### 1 3770766, 1292993, 0320960, 4283809, 5970674, 5202121, 60972825, 6041035 #### [facility] [address] [place] [address] Sodium [Moles/Vol] 140 mmol/L Normal 135-[address] [facility] Comment on above: Performed By: #### 1 8938412, 1144514, 2894346, 0164848, 0120666, 2744112, 63909260, 0558610 #### [facility] [address] [place] [address] CBC w/ Auto Diffon 9 Erythrocyte distribution width (RBC) [Ratio] 13.7 % Normal 10.9-14.[address] [facility] Comment on above: Performed By: #### 1 5538704, 6570077, 2605794, 2725119, 8234462, 0217110, 89990536, 1697266 #### [facility] [address] [place] [address] 52658 Hematocrit (Bld) [Volume fraction] 34.8 % Normal 34.0-46.[address] [facility] Comment on above: Performed By: #### 1 6068355, 4794040, 3860443, 2434907, 5025952, 3766032, 73286361, 5143546 #### [facility] [address] [place] [address] 28927 Hemoglobin (Bld) [Mass/Vol] 12.0 g/dL Normal 12.0-16.[address] [facility] Comment on above: Performed By: #### 1 2169503, 2485151, 9082870, 7782115, 8131144, 1706907, 94403882, 5286316 #### [facility] [address] [place] [address] 59156 MCH (RBC) [Entitic mass] 30.5 pg Normal 27.0-34.[address] [facility] Comment on above: Performed By: #### 1 0245015, 0481422, 5635087, 4507113, 4701566, 0306804, 00646681, 2341891 #### [facility] [address] [place] [address] MCHC (RBC) [Mass/Vol] 34.5 g/dL Normal 33.3-35.[address] [facility] Comment on above: Performed By: #### 1 9221990, 2331489, 3054623, 3815720, 5131516, 6714850, 49637981, 8226557 #### [facility] [address] [place] [address] MCV (RBC) [Entitic vol] 88.6 fL Normal 80.0-100.[address] [facility] Comment on above: Performed By: #### 1 3416035, 5662772, 0454669, 5884443, 8098349, 3635143, 14299017, 5683283 #### [facility] [address] [place] [address] Platelet mean volume (Bld) [Entitic vol] 7.9 fL Normal 6.4-10.[address] [facility] Comment on above: Performed By: #### 1 2517123, 2754962, 4161333, 2769798, 1629998, 1994371, 20797986, 6881109 #### [facility] [address] [place], [place] [address] Platelets (Bld) [#/Vol] 256.0 E9/L Normal 150.0-500.[address] [facility] Comment on above: Performed By: #### 1 9508809, 3018804, 2521362, 8779483, 7229086, 2055314, 86522019, 9787657 #### [facility] [address] [place] [address]46 RBC (Bld) [#/Vol] 3.9 E12/L Low 4.3-5.[address] [facility] Comment on above: Performed By: #### 1 0081518, 6435657, 7473868, 8450861, 7578058, 0019532, 88516280, 4959727 #### [facility] [address] [place] [address] WBC corrected for nucl RBC Auto (Bld) [#/Vol] 7.8 E9/L Normal 4.0-11.[address] [facility] Comment on above: Performed By: #### 1 2851637, 2134903, 5358147, 1928027, 6513127, 0931115, 67916145, 3170016 #### [facility] [address] [place] [address] Erythrocyte distribution width (RBC) [Ratio] 13.2 % Normal 10.9-14.[address] [facility] Comment on above: Performed By: #### 1 4614789, 9359025, 5334722, 0627881, 3498625, 1016729, 61920859, 1008044 #### [facility] [address] [place] [address] Hematocrit (Bld) [Volume fraction] 38.9 % Normal 34.0-46.[address] [facility] Comment on above: Performed By: #### 1 5549861, 9534582, 0810805, 0658538, 4036586, 9053955, 67293378, 6208612 #### [facility] [address] [place] [address] Hemoglobin (Bld) [Mass/Vol] 13.2 g/dL Normal 12.0-16.[address] [facility] Comment on above: Performed By: #### 1 1747281, 5323841, 5925265, 8661906, 2730788, 9300328, 89535573, 8079228 #### [facility] [address] [place] [address]7965 MCH (RBC) [Entitic mass] 30.0 pg Normal 27.0-34.[address] [facility] Comment on above: Performed By: #### 1 5734987, 8940180, 6234854, 9061697, 0903111, 7609306, 91248731, 2709607 #### [facility] [address] [place] [address] MCHC (RBC) [Mass/Vol] 34.0 g/dL Normal 33.3-35.[address] [facility] Comment on above: Performed By: #### 1 3004012, 3400632, 2470005, 4214162, 9388044, 5406569, 57935443, 2179665 #### [facility] [address] [place] [address] MCV (RBC) [Entitic vol] 88.1 fL Normal 80.0-100.[address] [facility] Comment on above: Performed By: #### 1 2495436, 9299456, 4617886, 7042770, 5771412, 4825576, 12272450, 1302407 #### [facility] [address] [place] [address] Platelet mean volume (Bld) [Entitic vol] 8.3 fL Normal 6.4-10.[address] [facility] Comment on above: Performed By: #### 1 1091312, 6155499, 8487931, 2399289, 0163092, 0083534, 79526343, 9970762 #### [facility] [address] [place] [address] 269[address] Platelets (Bld) [#/Vol] 253.0 E9/L Normal 150.0-500.[address] [facility] Comment on above: Result Comment: Slid e reviewed by CHARO. Performed By: #### 1 2790621, 2792633, 6133097, 8596610, 1599497, 6519318, 15126826, 0378941 #### [facility] [address] [place] [address] 42733 RBC (Bld) [#/Vol] 4.4 E12/L Normal 4.3-5.[address] [facility] Comment on above: Performed By: #### 1 6951655, 5849935, 8714286, 2661304, 1779421, 8020441, 25136076, 1176269 #### [facility] [address] [place] [address] WBC corrected for nucl RBC Auto (Bld) [#/Vol] 13.0 E9/L High 4.0-11.[address] [facility] Comment on above: Performed By: #### 1 3656218, 9837587, 6160878, 9095188, 0645621, 2645522, 28173614, 3141449 #### [facility] [address] [place] [address] Consultation Noteon 07-18-20 Consultation Note ACUTE CARE [...] Lymph Auto: 19.3 % (07/18/19 05:33:00 EDT) [place] Auto: 6.4 % (07/18/19 05:33:00 EDT) Eos Auto: 0.4 % (07/18/19 05:33:00 EDT) Basophil Auto: 0.4 % (07/18/19 05:33:00 EDT) Neutro Absolute: 5.7 E9/L (07/18/19 05:33:00 EDT) Lymph Absolute: 1.5 E9/L (07/18/19 05:33:00 EDT) [place] Absolute: 0.5 E9/L (07/18/19 05:33:00 EDT) Eos [...] MD, FACS Trauma/Critical Care/Acute Care Surgery Attending [facility] Comment on above: Result Comment: Elec tronically [...] since 2am, states lab work done at [place] today liver enzymes were elevated history of pancreatitis History of Present Illness 33 years old white female admitted to [facility] with sudden onset of abdominal pain, [...] list: All Problems Pancreatitis / SNOMED CT 552827023 / Confirmed Hypothyroidism / SNOMED CT 63924463 / Confirmed Ovarian dysfunction / SNOMED CT 70119312 / Confirmed Histories Past Medical History: No [...] Auto 73.5 % Lymph Auto 19.3 % [place] Auto 6.4 % Eos Auto 0.4 % Basophil Auto 0.4 % Neutro Absolute 5.7 E9/L Lymph Absolute 1.5 E9/L [place] Absolute 0.5 E9/L Eos Absolute 0.0 E9/L [...] % HI Lymph Auto 6.4 % LOW [place] Auto 5.5 % Eos Auto 0.6 % Basophil Auto 0.3 % Neutro Absolute 11.3 E9/L HI Lymph Absolute 0.8 E9/L LOW [place] Absolute 0.7 E9/L Eos Absolute 0.1 E9/L [...] related complications, she agreed to proceed Normal [facility] Comment on above: Result Comment: Elec tronically Signed By: CAPRICE GUSTAFSON, Abhinav\.br\Date and Time Signed: 07/18/19 10:01 EDT ED Clinical Summaryon 2018 ED Clinical Summary (Inserted Image. Sachi ble to display) [place] [id number] ED Clinical Summary Person Information Name: SUKHDEV SCHWARTZ [place] Age: 33 Years : 1985 12:00 AM Sex: Female Language: Italian PCP: LOLI MATIAS MD Marital Status: Phone: [phone] Visit Id: Visit Reason: Vomiting; Nausea; Abdominal pain; ABD PAIN, NAUSEA Speciality: Acuity: 3 Enc Type: Emergency Med Service: Emergency Arrival: 07/17/2019 8:55 PM Discharge: LOS: 000 03:53 Checkin: 07/17/2019 8:55 PM Checkout: 07/18/2019 12:48 AM Dispo Type: Admitted as IP to this [facility] EVENTS: Event Name Event Status [...] 07/18/2019 12:48 AM 07/18/2019 12:48 AM ADDRESS: [facility] [address] [place] [id number] [facility] DOC NOTES: MEDICAL INFORMATION: Prescriptions Given: PATIENT EDUCATION INFORMATION: Instructions: Follow up: DIAGNOSIS: Normal [facility] ED Patient Education Noteon 07-18-2019 ED Patient Education Note Normal [facility] ED Patient Summaryon ED Patient Summary (Inserted Image. Sachi ble to display) [address] [address] Patient Discharge Instructions Person Information Name: SUKHDEV SCHWARTZ Age: 33 Years Arrival Date: 07/17/2019 8:55 PM Discharge Diagnosis: Primary Care Physician: LOLI MATIAS MD Provider Information Primary Provider: Rubio MD, Mehran Advanced Director Of Sales Marketing:Oswaldo Fischer PA-C The exam and treatment you received in the Emergency Department were for an urgent problem and are not intended as complete care. It is important that you follow up with a doctor, nurse practitioner, or physician?s high school assistant football coach for ongoing care. If your symptoms become [...] opioids can be used to help relieve zegqospu-nz-qnjlid pain and are often prescribed following a [...] be struggling with addiction, tell your health critical care clinical nurse specialist and ask for guidance or call [facility]?S National Helpline at 8-377-111-WPYM. v Source: [place] Department of Health and Human Services/Center for Disease Control & Prevention [facility] Medications Given: Medication Dose Route Sodium Chloride 0.9% intravenous solution 1000.00 mL Initial Volume 1000.00 mL/hr IV Left Antecubital [place] morphine 4.00 mg IV Push Left Anterior Chest ondansetron 4.00 mg IV Push Left Antecubital Ana nalbuphine 5.00 mg IV Push Left Antecubital Baltic Medication Information: Medications to Continue with No [...] Drug Jimbo [place] Thank you for choosing [facility] Patient Education Materials: JAMES Bain BRITTANY F , have received the following patient education materials/instructions and have verbalized understanding: Patient Education Materials: Follow-up Instructions: Prescriptions: Patient Signature __ Date Clinician/Nurse Signature Date 07/18/19 00:48:[address] [facility] Hep Func Panelon 07-18-2019 Albumin [Mass/Vol] 1.2 g/dL Normal 1.1-2.[address] [facility] Comment on above: Performed By: #### 1 8888158, 2881135, 6235495, 7665628, 0760847, 6268987, 95633805, 4457859 #### [facility] [address] [place] [address] ALP [Catalytic activity/Vol] 61 Int._Unit/L Normal 21-[address] [facility] Comment on above: Performed By: #### 1 8238788, 3478389, 4605810, 7023147, 0764640, 1691217, 56415886, 7958444 #### [facility] [address] [place] [address] 64715 ALT No additional P-5'-P [Catalytic activity/Vol] 119 Int._Unit/L High 6-[address] [facility] Comment on above: Performed By: #### 1 5210490, 7915335, 1941609, 5977857, 3567187, 1615419, 71453749, 4424527 #### [facility] [address] [place] [address] 73284 AST [Catalytic activity/Vol] 106 Int._Unit/L High 5-[address] [facility] Comment on above: Performed By: #### 1 1015216, 0955912, 8668105, 3335704, 5455372, 7901570, 49801903, 6386011 #### [facility] [address] [place] [address] Bilirubin.direct [Mass/Vol] 1.6 mg/dL High 0.1-0.[address] [facility] Comment on above: Performed By: #### 1 0324754, 1509463, 2832220, 2731060, 6357008, 4993065, 30765759, 6181349 #### [facility] [address] [place] [address]249 Globulin (S) [Mass/Vol] 2.7 g/dL Normal 1.4-4.[address] [facility] Comment on above: Performed By: #### 1 7648802, 3208107, 0478520, 0833609, 4108522, 5504861, 38062699, 3943488 #### [facility] [address] [place] [address] 60678 Albumin [Mass/Vol] 3.3 g/dL Normal 3.3-5.[address] [facility] Comment on above: Performed By: #### 1 7620164, 3661047, 5934157, 6378865, 5857544, 7030022, 06000054, 6617938 #### [facility] [address] [place] [address] Bilirubin [Mass/Vol] 3.6 mg/dL High 0.0-1.[address] [facility] Comment on above: Performed By: #### 1 1755142, 6905661, 2011186, 5251112, 9491773, 1093630, 04472996, 9372587 #### [facility] [address] [place] [address] Bilirubin.direct [Mass/Vol] 2.0 mg/dL High 0.1-0.[address] [facility] Comment on above: Performed By: #### 1 1544154, 6766346, 7912490, 9148426, 5209762, 5887726, 79364568, 1710208 #### [facility] [address] [place] [address] 05962 Protein [Mass/Vol] 6.0 g/dL Normal 6.0-7.[address] [facility] Comment on above: Performed By: #### 1 5971696, 5744065, 5075729, 9061890, 7690107, 7109715, 41835448, 2019885 #### [facility] [address] [place] [address] 88468 Albumin [Mass/Vol] 3.8 g/dL Normal 3.3-5.[address] [facility] Comment on above: Performed By: #### 1 3425452, 5301119, 8979212, 7357462, 8243073, 2379789, 41714778, 1165558 #### [facility] [address] [place] [address] Albumin [Mass/Vol] 1.4 g/dL Normal 1.1-2.[address] [facility] Comment on above: Performed By: #### 1 8442120, 8412747, 5704155, 9206283, 4989617, 5217458, 39462278, 6547469 #### [facility] [address] [place] [address] ALP [Catalytic activity/Vol] 69 Int._Unit/L Normal 21-[address] [facility] Comment on above: Performed By: #### 1 3332099, 0671464, 9629933, 6133165, 5368192, 6372018, 15092672, 7506618 #### [facility] [address] [place] [address] ALT No additional P-5'-P [Catalytic activity/Vol] 144 Int._Unit/L High 6-[address] [facility] Comment on above: Performed By: #### 1 6378572, 6092144, 5222154, 1254002, 6708903, 7068073, 61685118, 4744431 #### [facility] [address] [place] [address] 41788 AST [Catalytic activity/Vol] 179 Int._Unit/L High 5-[address] [facility] Comment on above: Performed By: #### 1 0648656, 6023317, 5864519, 7887989, 8084494, 3576097, 81338135, 2556639 #### [facility] [address] [place] [address] 10716 Bilirubin [Mass/Vol] 3.6 mg/dL High 0.0-1.[address] [facility] Comment on above: Performed By: #### 1 0490090, 2857918, 1831925, 0079738, 3863672, 3758844, 78589402, 8688804 #### [facility] [address] [place] [address] Bilirubin.direct [Mass/Vol] 1.5 mg/dL High 0.1-0.[address] [facility] Comment on above: Performed By: #### 1 4742636, 6336795, 2632318, 2806060, 9361715, 1843153, 41293465, 5780486 #### [facility] [address] [place] [address] 21754 Bilirubin.direct [Mass/Vol] 2.1 mg/dL High 0.1-0.[address] [facility] Comment on above: Performed By: #### 1 2598117, 8634285, 3581401, 6519107, 4254905, 2745676, 72661515, 6819840 #### [facility] [address] [place] [address] Globulin (S) [Mass/Vol] 2.7 g/dL Normal 1.4-4.[address] [facility] Comment on above: Performed By: #### 1 6873335, 3842823, 7923549, 7014247, 2054305, 7394084, 90432357, 3955458 #### [facility] [address] [place] [address] Protein [Mass/Vol] 6.5 g/dL Normal 6.0-7.[address] [facility] Comment on above: Performed By: #### 1 3058150, 9606279, 5413795, 4455153, 9373419, 2455007, 67713845, 3314578 #### [facility] [address] [place] [address] History and Physicalon 07-18 History and Physical [...] states she had a hospitalization while in [place] last month with the same was considered [...] Auto: 6.4 % Low (07/17/19 22:12:00 EDT) [place] Auto: 5.5 % (07/17/19 22:12:00 EDT) Eos Auto: 0.6 % (07/17/19 22:12:00 EDT) Basophil Auto: 0.3 % (07/17/19 22:12:00 EDT) Neutro Absolute: 11.3 E9/L High (07/17/19 22:12:00 EDT) Lymph Absolute: 0.8 E9/L Low (07/17/19 22:12:00 EDT) [place] Absolute: 0.7 E9/L (07/17/19 22:12:00 EDT) Eos [...] 2: Mother. Thyroid cancer: Mother and Sister. [facility] Comment on above: Result Comment: Elec tronically Signed By: Aron ALVARADO DO\.br\Date and Time Signed: 07/18/19 02:27 EDT Interdisciplinary Note - Arcadio e Manageron 07-18-2019 INR Coag (Bld) [Relative time] Rounding with Dr. Benjamin, Felicia ACEVEDO, Rosie [facility], and Jeanette GOODRICH with another patient. No [...] needs at discharge. lives with spouse. Normal [facility] Lactic Acidon 07-18-2019 Lactate [Mass/Vol] 10.1 mg/dL Normal 4.5-19.[address] [facility] Comment on above: Performed By: #### 1 5401330, 5605327, 5405554, 2563830, 0026231, 4004794, 46462653, 8248448 #### [facility] [address] [place] [address] Lipase Levelon 07-18-2019 Lipase [Catalytic activity/Vol] U/L High 13-[address] [facility] Comment on above: Result Comment: Resu lt verified by dilution Performed By: #### 1 5601240, 6740846, 8418387, 6981666, 4565296, 8462438, 39443785, 8187628 #### [facility] [address] [place] [address] Main OR Intraoperative Recor don 07-18-2019 Main OR Intraoperative Record IntraOp Document Type FT Summary Primary Physician: Abhinav REDDY MD Finalized Date/Time: 07/18/19 14:39:36 Pt. Name: SUKHDEV SCHWARTZ/Sex: 1985 Female Med Rec #: [id number] Physician: Aron ALVARADO DO Financial #: [id number] Pt. Type: I Room/Bed: [place] [address] Admit/Disch: 07/17/19 20:55:00 - Institution: Case Times FT Entry 1 Patient Times In Room 07/18/19 09:58:00 Out Room 07/18/19 10:24:00 Procedure Times Start 07/18/19 10:05:00 Stop 07/18/19 10:17:00 Anesthesia Times Start 07/18/19 09:58:00 Stop 07/18/19 10:24:00 Last Modified By: Juanita Stein CST 07/18/19 10:27:28 General Comments: 07/18/19 Chart opened to review and send charges Hilda Stein COMPUTER SYSTEMS SUPPORT SPECIALIST Case Attendance FT Entry 1 Entry 2 Entry 3 Case Attendee CAPRICE GUSTAFSON, Abhinav Eaton Jr DO, Davie Cabrera RN, Pamela Role Performed Surgeon - Primary Anesthesiologist of Aluminum Hydroxide Process Operator - Primary Record Time In 07/18/19 10:03:00 07/18/19 09:58:00 07/18/19 09:58:00 Time Out 07/18/19 10:24:00 07/18/19 10:24:00 07/18/19 10:24:00 Procedure ERCP(.) ERCP(.) ERCP(.) Comments Last Modified By: Deborah RN, Pamela Cabrera RN, Pamela Cabrera RN, Pamela 07/18/19 10:32:44 07/18/19 10:27:40 07/18/19 10:27:40 Entry 4 Entry 5 Entry 6 Case Attendee Reny Michaud COMPUTER SYSTEMS SUPPORT SPECIALIST, Shobha Nicolas RT, Kathy Turcios Role [...] Attendee Moy GOODRICH, Humaira Hooper Role Performed Aluminum Hydroxide Process Operator - Other Time In 07/18/19 09:58:00 Time [...] BAE, Davie Perry, Deborah GOODRICH, Pamela, Jerry COMPUTER SYSTEMS SUPPORT SPECIALIST, Jaswant Yeager, Reny K, Fidencio RT, [...] and tissue Entry 1 Skin Integrity Intact, [place], Warm, and Skin Abnormality No Dry Outcomes [...] RN Patient Status Stable Skin. Condition Intact, [place], Warm, and Dry Airway Maintenance Oxygen in Use? No Airway Device N/A Outcomes Met? 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 Yes Verified Last Modified By: Pamela Cabrera RN 07/18/19 10:15:26 Post-Care Text: The patient received appropriate medication(s) safely administered during the perioperative period For [facility] please see scanned medication reconcilliation form [...] signs and symptoms of radiation injury Normal [facility] Main OR PACU I Recordon 10 Main OR PACU I Record PACU Phase I Document Type FT Summary Primary Physician: Abhinav REDDY MD Finalized Date/Time: 07/18/19 10:47:23 Pt. Name: SUKHDEV SCHWARTZ Antoin Garcia./Sex: 1985 Female Med Rec #: [id number] Physician: Aron ALVARADO DO Financial #: [id number] Pt. Type: I Room/Bed: [place] [address] Admit/Disch: 07/17/19 20:55:00 - Institution: Case Times [...] By: Carin Iverson RN 07/18/19 10:[address] [facility] Main OR Preoperative Recordo n 07-18-2019 Main OR Preoperative Record Holding Area Document Type FT Summary Primary Physician: Abhinav REDDY MD Finalized Date/Time: 07/18/19 09:36:36 Pt. Name: SEN SCHWARTZTRUMAN Garcia./Sex: 1985 Female Med Rec #: [id number] Physician: Aron ALVARADO DO Financial #: [id number] Pt. Type: I Room/Bed: [facility]/ Admit/Disch: 07/17/19 20:55:00 - Institution: Case [...] Patient states Yes Comment - Adult ip [id number] COMING postop adult Supervision supervision available Case [...] RN, Al, Kellen POZO 07/18/19 09:[address] [facility] PT & PTTon 07-18-2019 aPTT Coag (PPP) [Time] 28.1 second(s) Normal 25.1-36.[address] [facility] Comment on above: Result Comment: Hepa rin therapeutic range (represented by Anti-Factor Xa activity of 0.2 - 0.4 U/mL) corresponds to PTT of 56.6 - 109.0 sec. Performed By: #### 1 3883457, 3642012, 9895372, 2827954, 2603314, 7569332, 79550481, 8409049 #### [facility] [address] [place] [address] INR Coag (PPP) [Relative time] 1.0 {INR} [facility] Comment on above: Result Comment: INR results are specifically intended to assess patients stabilized on long-term Anticoagulation therapy suggested INR?s ?Less Intensive Anticoagulation? 2.0 ? 3.0 Conventional Range 3.0 ? 4.5 Performed By: #### 1 1441900, 1129389, 1560183, 8192365, 8055784, 4106031, 32690194, 9290770 #### [facility] [address] [place] [address] PT Coag (PPP) [Time] 11.9 second(s) Normal 10.2-12.[address] [facility] Comment on above: Performed By: #### 1 5740704, 4762209, 3874636, 0234256, 6277289, 9741912, 15181256, 6807371 #### [facility] [address] [place] [address] Prescriptions/Work Noteson 1 Prescriptions/Work Notes Pt to US at this time, via cart. Normal [facility] Progress Note-Nurseon 2018 Progress Note-Nurse SIMI Murillo aware of patient c/o pain. Normal [facility] Progress Note-Nurse Pt care report provi ded to JOLEEN Chavez at this time. Normal [facility] U BetaHcg Qualon 07-18-2019 HCG.beta subunit (U) [Moles/Vol] Negative Normal [facility] Comment on above: Performed By: #### 1 7739375, 9877182, 0418417, 5032061, 3634475, 7872143, 31949282, 1545607 #### [facility] [address] [place] [address] UA With Cult Reflexon 2018 Bacteria LM Ql (Urine sed) 1+ /HPF Abnormal Trace [facility] Comment on above: Performed By: #### 1 2958823, 0763347, 0833270, 0433542, 0672847, 8786371, 82894280, 5917721 #### [facility] [address] [place] [address] Bilirubin Ql (U) 3+ Abnormal Negative [facility] Comment on above: Performed By: #### 1 8813509, 2084165, 5305509, 5553206, 9167580, 0718890, 36378866, 2093002 #### [facility] [address] [place] [address] Clarity (U) SL CLOUDY Abnormal Clear [facility] Comment on above: Performed By: #### 1 9828713, 7939934, 0356542, 1709482, 3960782, 8441515, 29222215, 4965448 #### [facility] [address] [place] [address] Color (U) DARK YELLO Abnormal Yellow [facility] Comment on above: Performed By: #### 1 7890274, 8338747, 6324442, 8040144, 6505165, 7399123, 38480744, 3324767 #### [facility] [address] [place] [address] Crystals LM Ql (Urine sed) Present Normal [facility] Comment on above: Performed By: #### 1 [id number], 7926372, 4682594, 4576753, 3577693, 3864699, 52360157, 5396599 #### [facility] [address] [place] [address] Epithelial cells.squamous LM.HPF (Urine sed) [#/Area] 5-8 Normal 0-[address] [facility] Comment on above: Performed By: #### 1 [id number], 6315957, 3030693, 2885809, 2671658, 7902041, 58217541, 7187462 #### [facility] [address] [place] [address] Glucose Test strip (U) [Mass/Vol] Negative Normal Negative [facility] Comment on above: Performed By: #### 1 [id number], 6339542, 6761917, 3484598, 8593184, 8421311, 19260365, 6842330 #### [facility] [address] [place] [address] Hemoglobin Ql (U) TRACE Abnormal Negative [facility] Comment on above: Performed By: #### 1 [id number], 1626488, 2853655, 6534847, 4489560, 0174444, 84833992, 0587661 #### [facility] [address] [place] [address] Ketones (U) [Mass/Vol] 3+ Abnormal Negative [facility] Comment on above: Performed By: #### 1 0895988, 8389514, 1651316, 0649725, 3719629, 4115558, 74578003, 0951632 #### [facility] [address] [place] [address] [place].plasma/Lith ium.RBC (Bld) [Mass ratio] 4-20 Normal 0-[address] [facility] Comment on above: Performed By: #### 1 [id number], 7783606, 8055815, 9169000, 5229519, 7517673, 07908545, 6448694 #### [facility] [address] [place] [address] Mucus Ql (Urine sed) 3+ Normal [facility] Comment on above: Performed By: #### 1 0305891, 2092058, 2534526, 8883913, 8404289, 8355870, 03155392, 4808838 #### [facility] [address] [place] [address] Nitrite Ql (U) Negative Normal Negative [facility] Comment on above: Performed By: #### 1 1670344, 6862113, 3123822, 9425699, 1277521, 2489759, 12590921, 6122260 #### [facility] [address] [place] [address] pH (U) 6.0 [pH] 5.0-9.[address] [facility] Comment on above: Performed By: #### 1 2555222, 8527382, 4515927, 7712943, 7013811, 6319991, 57111419, 5953797 #### [facility] [address] [place] [address] Protein (U) [Mass/Vol] TRACE Abnormal Negative [facility] Comment on above: Performed By: #### 1 9663807, 4146773, 9933268, 5447855, 5753737, 1989489, 61026972, 9634174 #### [facility] [address] [place] [address] Specific gravity (U) [Rel density] >=1.030 1.005-1.[address] [facility] Comment on above: Performed By: #### 1 4251088, 2210488, 7871069, 3050276, 0905587, 3200394, 32824882, 7207891 #### [facility] [address] [place] [address] UA Spec Desc Clean Catch Normal [facility] Comment on above: Performed By: #### 1 0268617, 5619058, 8639341, 8386034, 1136885, 6900320, 74064878, 2020968 #### [facility] [address] [place] [address] Urobilinogen Qn (U) 2.0 {Payal'U}/dL Abnormal 0.0-1.[address] [facility] Comment on above: Performed By: #### 1 2224121, 9103146, 3183141, 2087986, 4164527, 2868196, 59598347, 2784384 #### [facility] [address] [place] [address] WBC Auto Ql (U) TRACE Abnormal Negative [facility] Comment on above: Performed By: #### 1 6394278, 4507747, 5339186, 0511556, 1065923, 4451409, 41907350, 6925473 #### [facility] [address] [place] [address] WBC casts LM.LPF (Urine sed) [#/Area] 0-[address] [facility] Comment on above: Performed By: #### 1 9740975, 2087076, 1390993, 7389379, 2517779, 2904015, 15205592, 7579266 #### [facility] [address] [place] [address] WBC LM.HPF (Urine sed) [#/Area] 0-5 Normal 0-[address] [facility] Comment on above: Performed By: #### 1 9310174, 3719203, 1789959, 9395854, 0257858, 3713744, 87868714, 0766635 #### [facility] [address] [place] [address] US Gallbladderon 07-18-2019 US Gallbladder Exam Date/Time: [...] MD Transcribed by: MADISON Technologist: LALY Earl [facility] XR ERCP Biliary Ducton 07-18 XR ERCP Biliary Duct Exam Date/Time: 07/18/2019 10:25 EDT Reason for Exam: ercp Report IMPRESSION: DISTAL COMMON BILE DUCT STONE, WITH APPARENT REMOVAL FOLLOWING PASSAGE OF A BALLOON CATHETER. SUSPECTED SHORT SEGMENT SPASM OF THE DISTAL MOST COMMON BILE DUCT. CLINICAL HISTORY: ERCP. COMMENT: 6 limited [id number] C-arm images were obtained during an ERCP [...] mGy = 62.1 Fluoro Time: 141.1s Normal [facility] eGFRon 07-18-2019 GFR/1.73 sq M predicted among blacks MDRD (S/P/Bld) [Vol rate/Area] mL/min/{1.73_m2} Normal >=[address] [facility] Comment on above: Order Comment: Order added by Discern Expert. Result Comment: eGFR is race adjusted. AA=. Performed By: #### 1 [id number], 2459018, 1749378, 2347603, 8558302, 8951248, 01798681, 6519424 #### [facility] [address] [place] [address] GFR/1.73 sq M predicted among non-blacks MDRD (S/P/Bld) [Vol rate/Area] mL/min/{1.73_m2} Normal >=[address] [facility] Comment on above: Order Comment: Order added by Discern Expert. Result Comment: [employer] ivan kidney disease could be indicated at eGFR's of less than 60 mL/min/1.73m2. Kidney failure is indicated at less than 15 mL/min/1.73m2. Performed By: #### 1 6081584, 4602281, 4210715, 1625775, 3609660, 9923023, 01073458, 6726454 #### [facility] [address] [place] [address] GFR/1.73 sq M predicted among blacks MDRD (S/P/Bld) [Vol rate/Area] mL/min/{1.73_m2} Normal >=[address] [facility] Comment on above: Order Comment: Order added by Discern Expert. Result Comment: eGFR is race adjusted. AA=. Performed By: #### 1 4468397, 7033287, 3510845, 0497667, 1862250, 1544059, 73667286, 2583608 #### [facility] [address] [place] [address] GFR/1.73 sq M predicted among non-blacks MDRD (S/P/Bld) [Vol rate/Area] mL/min/{1.73_m2} Normal >=[address] [facility] Comment on above: Order Comment: Order added by Discern Expert. Result Comment: [employer] ivan kidney disease could be indicated at eGFR's of less than 60 mL/min/1.73m2. Kidney failure is indicated at less than 15 mL/min/1.73m2. Performed By: #### 1 6945247, 0059948, 0638857, 3650021, 5069845, 1497831, 10523764, 0459529 #### [facility] [address] [place] [address] Amylaseon 07-17-2019 Amylase [Catalytic activity/Vol] 39 U/L 28 - 100 U/L [place], [place] CBC Auto Differentialon 06-20 Basophils (Bld) [#/Vol] 0.00 10*3/uL [place] Basophils/100 WBC (Bld) 0 % 0 - 2 % [place] Differential Type YES [place] Eosinophils (Bld) [#/Vol] 0.10 10*3/uL [place] Eosinophils/100 WBC (Bld) 1 % 0 - 5 % [place] Erythrocyte distribution width (RBC) [Ratio] 13.3 % 12.1 - 15.2 % [place] Hematocrit (Bld) [Volume fraction] 36.1 % 36 - 46 % [place] Hemoglobin (Bld) [Mass/Vol] 12.3 g/dL 12 - 16 g/dL [place] Lymphocytes (Bld) [#/Vol] 1.50 10*3/uL [place] Lymphocytes/100 WBC (Bld) 23 % 15 - 40 % [place] MCH (RBC) [Entitic mass] 30.5 pg 26 - 34 pg [place] MCHC (RBC) [Mass/Vol] 34.1 g/dL 31 - 37 g/dL [place] MCV (RBC) [Entitic vol] 89.3 fL 80 - 100 fL [place] Monocytes (Bld) [#/Vol] 0.40 10*3/uL [place] Monocytes/100 WBC (Bld) 6 % 4 - 8 % [place] Platelet mean volume (Bld) [Entitic vol] NOT REPORTED 6 - 12 fL [place] Platelets (Bld) [#/Vol] 301 10*3/uL [place] Platelets (Bld) [#/Vol] NOT REPORTED [place] RBC (Bld) [#/Vol] 4.04 10*6/uL 4 - 5.2 m/uL [place] RBC morphology finding Nom (Bld) NOT REPORTED [place] Segmented neutrophils/100 WBC (Bld) 70 % 47 - 75 % [place] Segs Absolute 4.60 [place] WBC (Bld) [#/Vol] 6.6 10*3/uL [place] WBC (Bld) [#/Vol] NOT REPORTED per 100 WBC [place] WBC Morphology NOT REPORTED [place], [place] Comprehensive Metabolic Pane avel 07-17-2019 Albumin [Mass/Vol] 4.4 g/dL 3.5 - 5.2 g/dL [place] Albumin/Globulin [Mass ratio] NOT REPORTED [place] ALP [Catalytic activity/Vol] 84 U/L 35 - 104 U/L [place] ALT [Catalytic activity/Vol] 153 U/L High 5 - 33 U/L [place] Anion gap [Moles/Vol] 11 mmol/L 9 - 17 mmol/L [place] AST [Catalytic activity/Vol] 243 U/L High <32 [place] Bilirubin Ql (U) 2.37 mg/dL High 0.3 - 1.2 mg/dL [place] Bun/Cre Ratio 27 High [place] Calcium [Mass/Vol] 9.9 mg/dL 8.6 - 10. 4 mg/dL [place] Chloride [Moles/Vol] 104 mmol/L 98 - 107 mmol/L [place] CO2 [Moles/Vol] 24 mmol/L 20 - 31 mmol/L [place] Creatinine [Mass/Vol] 0.49 mg/dL Low 0.5 - 0.9 mg/dL [place] GFR >60 >60 mL/min [place] GFR Non- >60 >60 mL/min [place] GFR/1.73 sq M predicted among non-blacks MDRD (S/P/Bld) [Vol rate/Area] [place] Comment on above: Average GFR for 30-3 9 years old: 107 mL/min/1.73sq m Chronic Kidney Disease: <60 mL/min/1.73sq m Kidney failure: <15 mL/min/1.73sq m eGFR calculated using average adult body mass. Additional eGFR calculator available at: http://www.[employer]/multiple_crcl_2012.htm GFR/1.73 sq M predicted among non-blacks MDRD (S/P/Bld) [Vol rate/Area] NOT REPORTED [place] Glucose [Mass/Vol] 97 mg/dL 70 - 99 mg/dL [place] Interpretation and review of laboratory results Abnormal [place] Potassium [Moles/Vol] 3.6 mmol/L Low 3.7 - 5.3 mmol/L [place] Protein [Mass/Vol] 7.5 g/dL 6.4 - 8.3 g/dL [place] Sodium [Moles/Vol] 139 mmol/L 135 - 144 mmol/L [place] Urea nitrogen [Mass/Vol] 13 mg/dL 6 - 20 mg/dL [place] Lipaseon 07-17-2019 Lipase [Catalytic activity/Vol] 20 U/L 13 - 60 U/L [place] Otheron 07-17-2019 Immature granulocytes (Bld) [#/Vol] NOT REPORTED 0 % [place] HEAD NECK SOFT TISSUE THY ROIDon 07-14-2019 Stable nodules with no follow-up needed. [place] EXAM: US HEAD NECK S OFT [...] lobe: 4.9 x 1.3 x 1.9 cm. [place], [place] Misha, Mhpn Incoming R adiant Results From [employer] - 07/14/2019 3:21 PM EDT EXAM: US [...] IMPRESSION: Stable nodules with no follow-up needed. [place] TSHon 07-07-2019 TSH Qn 0.78 m[IU]/L Normal 0.44 - 3.98 [facility] [place] Comment on above: Result Comment: TSH testing is performed using different testing methodology at [facility] than at other [facility]. Direct result comparisons should only be made within the same method. . Patients receiving more than 5 mg/day of biotin may have interference in test results. A sample should be taken no sooner than eight hours after previous dose. Contact [phone] for additional information. Performed By: #### T SH2 #### [facility] [address] [place] [address] TSHon 05-25-2019 TSH Qn 0.77 m[IU]/L Normal 0.44 - 3.98 [facility] [place] Comment on above: Result Comment: TSH testing is performed using different testing methodology at [facility] than at [facility]. Direct result comparisons should only be made within the same method. . Patients receiving more than 5 mg/day of biotin may have interference in test results. A sample should be taken no sooner than eight hours after previous dose. Contact [phone] for additional information. Performed By: #### T SH2 #### [facility] [address] [place] [address] TSHon 01-18-2019 TSH Qn 0.75 m[IU]/L Normal 0.44 - 3.98 [facility] [place] Comment on above: Result Comment: TSH testing is performed using different testing methodology at [facility] than at other [facility]. Direct result comparisons should only be made within the same method. . Patients receiving more than 5 mg/day of biotin may have interference in test results. A sample should be taken no sooner than eight hours after previous dose. Contact [phone] for additional information. Performed By: #### T SH2 #### [facility] [address] [place] [address] TSHon 01-10-2019 TSH Qn 1.27 m[IU]/L Normal 0.44 - 3.98 [facility] [place] Comment on above: Result Comment: TSH testing is performed using different testing methodology at [facility] than at other [facility]. Direct result comparisons should only be made within the same method. . Patients receiving more than 5 mg/day of biotin may have interference in test results. A sample should be taken no sooner than eight hours after previous dose. Contact [phone] for additional information. Performed By: #### T SH2 #### [facility] [address] [place] [address] TSHon 12-07-2018 TSH Qn 0.86 m[IU]/L Normal 0.44 - 3.98 [facility] [place] Comment on above: Result Comment: TSH testing is performed using different testing methodology at [facility] than at other [facility]. Direct result comparisons should only be made within the same method. . Patients receiving more than 5 mg/day of biotin may have interference in test results. A sample should be taken no sooner than eight hours after previous dose. Contact [phone] for additional information. Performed By: #### T SH2 #### [facility] [address] [place] [address] EXT LAB FERRITINon 9 Ferritin mass conc 97 ng/mL [facility] External Lab CBC (With or wi [...] Cancer Center RBC (Bld) [#/Vol] 4.4 10*6/uL [facility] WBC (Bld) [#/Vol] 5.80 10*3/uL K/mcL [facility] ealth External Lab Comprehensive M etabolic Panelon 11-12-2018 Albumin [Mass/Vol] 4.1 g/dL [facility] Albumin/Globulin [Mass ratio] 1.2 {ratio} [facility] ALP [Catalytic activity/Vol] 52 U/L [facility] ALT [Catalytic activity/Vol] 11 U/L [facility] AST [Catalytic activity/Vol] 15 U/L [facility] Bilirubin Ql (U) 1.0 mg/dL [facility] Calcium [Mass/Vol] 9.5 mg/dL [facility] Chloride [Moles/Vol] 102 mmol/L [facility] Glucose [Mass/Vol] 87 mg/dL [facility] HCO3 (Bld) [Moles/Vol] 25 mmol/L [facility] Magnesium [Mass/Vol] [facility] Phosphate [Mass/Vol] mg/dL [facility] Potassium [Moles/Vol] 4.1 mmol/L [facility] Protein [Mass/Vol] 7.4 g/dL [facility] Sodium [Moles/Vol] 137 mmol/L [facility] Urate [Mass/Vol] mg/dL [facility] Urea nitrogen [Mass/Vol] 15 mg/dL [facility] Urea nitrogen/Creatinine [Mass ratio] 25 mg/mg High [facility] External Lab Vitamin D, 25-O [place] 11-12-2018 Vitamin D, 25-OH 55.0 [facility] External Vitamin B12 and Fol [...] Qn 0.64 m[IU]/L Normal 0.44 - 3.98 [facility] [place] Comment on above: Order Comment: FXD S TAT TO [phone]; SPOKE W/ALFREDO , 08/12/2018 22:23 Result Comment: TSH testing is performed using different testing methodology at [facility] than at other [facility]. Direct result comparisons should only be made within the same method. . Patients receiving more than 5 mg/day of biotin may have interference in test results. A sample should be taken no sooner than eight hours after previous dose. Contact [phone] for additional information. FXD STAT TO [phone]; SPOKE W/ALFREDO , 08/12/2018 22:23 Performed By: #### T SH2 #### [facility] [address] [place] [address] Vital Signs Date Time Vital Sign Value [...] 09-12-2019 15:37-0500 Pulse (Heart Rate) 73 /min [facility] 11-08-2017 09:56-0500 BMI (Body Mass Index) 36.08 kg/m2 [facility] Work Phone: 11-08-2017 09:56-0500 BP Diastolic 81 mm[Hg] [facility]: 11-08-2017 09:56-0500 BP Systolic 120 mm[Hg] [facility] Work Phone: 11-08-2017 09:56-0500 Height 182.9 cm [facility] Work Phone: 11-08-2017 09:56-0500 Pulse (Heart Rate) 70 /min [facility] Work Phone: 11-08-2017 09:56-0500 Weight 120.66 kg [facility] Work Phone: 08-09-2017 14:05-0400 BMI (Body Mass Index) 40.01 kg/m2 Behzad [facility] Work Phone: 08-09-2017 14:05-0400 Body Temperature 97.5 [degF] Behzad [facility]ya [facility] Work Phone: 08-09-2017 14:05-0400 BP Diastolic 74 mm[Hg] Behzad Zacherya [facility] Work Phone: 08-09-2017 14:05-0400 BP Systolic 130 mm[Hg] [facility] Work [facility]: 08-09-2017 14:05-0400 Height 182.9 cm [facility] Work Phone: 08-09-2017 14:05-0400 Pulse (Heart Rate) 85 /min [facility] Work Phone: 08-09-2017 14:05-0400 Weight 133.81 kg [facility] Work Phone: 06-01-2017 14:30-0400 BMI (Body Mass Index) 43.26 kg/m2 [facility] Work Phone: 06-01-2017 14:30-0400 Body Temperature 97.81 [degF] [facility] Work Phone: 06-01-2017 14:30-0400 BP Diastolic 82 mm[Hg] [facility] Work Phone: 06-01-2017 14:30-0400 BP Systolic 128 mm[Hg] [facility] Work Phone: 06-01-2017 14:30-0400 Height 182.9 cm [facility] Work Phone: 06-01-2017 14:30-0400 Pulse (Heart Rate) 82 /min Behzad Zacherya [facility] Work Phone: 06-01-2017 14:30-0400 Weight 144.7 kg [facility] Work Phone: Encounters Encounter Date Encounter Type Care Provider Facility Start: 04-02-2023 End: 04-03-2023 ambulatory [facility] Start: 04-02-2023 End: 04-02-2023 Subsequent hospital visit by physician Loli Matias MD Work Phone: [facility] Laboratory Comment on above: Acquired hypothyroid ism Start: 11-10-2022 End: 11-13-2022 ambulatory [facility] Start: 11-10-2022 End: 11-12-2022 Subsequent hospital visit by physician [facility] Ultrasound Room [facility] Ultrasound Comment on above: Acquired hypothyroid ism Start: 11-06-2022 End: 02-15-[address] DREW MCBRIDE Facility: Start: 01-13-2022 End: 01-15-2022 Subsequent hospital visit by physician Loli Matias MD Work Phone: [facility] Start: 11-19-2020 End: 11-19-2020 Billy Ramirez [...] 09-12-2019 Patient encounter procedure BEHZAD RAJENDRASINH RANA [facility] Ambulatory Start: 09-12-2019 End: 09-12-2019 Office [...] End: 07-16-2019 Subsequent hospital visit by physician [facility] Ultrasound Room [facility] Ultrasound Comment on above: Thyroid nodule Start: 11-16-2018 End: 11-16-2018 Documentation procedure Behzad Hu Work Phone: [facility] Start: 10-24-2018 End: 10-24-2018 Patient encounter procedure BEHZAD HU [facility] Ambulatory Start: 04-11-2018 End: 04-11-2018 [facility] Start: 11-08-2017 Office/outpatient vi sit, est, [...] End: 05-02-2017 Evaluation and management of inpatient [facility] Start: 04-30-2017 Ambulatory JOSE DRAPER [facility] Start: 04-23-2017 End: 04-27-2017 Ambulatory [facility] Start: 04-05-2012 End: 08-15-2018 Patient encounter procedure Loli Matias MD Work Phone: [facility] Procedures Date Procedure Procedure Detail Performing Clinician Start: 04-02-2023 Assay of thyroid stimulating hormone tsh Loli Matias MD Work Phone: Start: 11-10-2022 Us soft tissue head & neck real time imge docm Nissa Lo [employer]IC[employer] Work Phone: Start: 09-13-2019 EXT LAB FERRITIN [...] (3 - Td or Tdap) [facility] Start: 05-30-2024 DTaP/Tdap/Td vaccine (3 - Td) DTaP/Tdap/Td vaccine (3 - Td) [place] Start: 05-30-2024 DTaP/Tdap/Td vaccine (7 - Td or Tdap) DTaP/Tdap/Td vaccine (7 - Td or Tdap) [facility] Start: 05-30-2024 Tetanus vaccination [facility] Start: 03-24-2024 Depression Screen Depression Screen [facility] Start: 11-18-2022 Depression Screen Depression Screen [facility] Start: 11-18-2022 Thyroid stimulating hormone measurement TSH testing [facility] Start: 2021 Diabetes screen Diabetes screen [facility] Start: 03-28-2021 COVID-19 Vaccine (3 - Booster for Moderna series) COVID-19 Vaccine (3 - Booster for Moderna series) [facility] Start: 09-28-2020 Cervical cancer screen Cervical canc er screen [place] Start: 09-28-2020 Screening for malign ant neoplasm of cervix [facility] Start: 06-18-2020 Influenza vaccinatio n given Sequential Influenza Vaccine (#1) [facility] Start: 06-18-2019 Influenza vaccination Flu vaccine (# 1) [place] Start: 06-18-2019 Influenza vaccinatio n given SEQUENTIAL INFLUENZA VACCINE (#1) [facility] Start: 04-24-2019 End: 04-24-2019 Office Visit 04/24/2019 Office Visit Behzad Rockwell MD [address] [address] [phone] [facility] Start: 08-05-2018 TSH testing TSH testing [facility] [place], [place] Start: 06-18-2018 Influenza vaccinatio n given SEQUENTIAL INFLUENZA VACCINE (#1) [facility] Start: 05-02-2018 Ambulatory 05/02/2018 Off ice Visit Behzad Rockwell MD [address] [place] [address] [phone] [facility] Start: 11-01-2017 Ambulatory 11/01/2017 Off ice Visit Behzad Rockwell MD [address] [place] [address] [phone] [facility] Start: 08-02-2017 Ambulatory 08/02/2017 Off ice Visit Behzad Rockwell MD [address] [place] [address] [phone] [facility] Start: 06-18-2017 Influenza vaccination SEQUENTI AL INFLUENZA VACCINE (#1) [facility] Work Phone: Start: 06-18-2017 SEQUENTIAL INFLUENZA VACCINE (#1) SEQUENTIAL INFLUENZA VACCINE (#1) [facility] Work Phone: Start: 2016 Screening for malign ant neoplasm of cervix HPV (without or with Pap) [facility] Start: 2004 Hepatitis C antibody , confirmatory test Hepatitis C Screening [facility] Start: 2004 Hepatitis C screening Hepatitis C sc reen [facility] Start: 10-04-2002 Hepatitis A vaccine (2 of 2 - 2-dose series) Hepatitis A vaccine (2 of 2 - 2-dose series) [facility] Start: 2001 HIV screen HIV screen [facility] [place] Start: 2001 HIV screening [facility] Start: 12-25-1999 Varicella Vaccine (1 of 2 - 13+ 2-dose series) Varicella Vaccine (1 of 2 - 13+ 2-dose series) [place] Start: 1998 Adolescent depressio n screening assessment Depression Screening (PHQ9) [facility] Start: 1989 History and physical examination, annual for health maintenance Wellness Visit [facility] Start: 12-25-1987 Varicella vaccine (1 of 2 - 2-dose childhood series) Varicella vaccine (1 of 2 - 2-dose childhood series) [facility] Start: 1986 Cytopathology procedure, preparation of smear, genital source PAP SMEAR [facility] Work Phone: Start: 1986 Hepatitis C screening Hepatitis C sc reen [facility] Start: 1986 Screening for malign ant neoplasm [...] (T4) free [Mass/volume] in Serum or Plasma [facility] Comment on above: 1 Occurrences starti [...] free Loli Matias MD Work Phone: [facility] 09-10-2021 influenza virus vaccine, unspecified formulation Loli Matias MD Work Phone: [facility] Work Phone: 10-28-2020 COVID-19, Moderna, Primary or Immunocompromised, PF, 100mcg/0.5mL Loli Matias MD Work Phone: [facility] Work Phone: 10-28-2020 COVID-19, Pfizer Pur ple top, DILUTE for use, 12+ yrs, 30mcg/0.3mL dose Loli Matias MD Work Phone: [facility] Work Phone: 10-04-2020 COVID-19, Moderna, Primary or Immunocompromised, PF, 100mcg/0.5mL Loli Matias MD Work Phone: [facility] Work Phone: 10-04-2020 COVID-19, Pfizer Pur ple top, DILUTE for use, 12+ yrs, 30mcg/0.3mL dose Loli Matias MD Work Phone: [facility] 08-04-2017 tuberculin skin test ; purified protein derivative solution, intradermal [facility], [place] 08-04-2017 unknown vaccine or immune globulin Loli Matias MD Work Phone: [facility] 05-30-2014 tetanus toxoid, redu rachael diphtheria toxoid, and acellular pertussis vaccine, adsorbed [facility], [place] 04-05-2012 tetanus toxoid, redu rachael diphtheria toxoid, and acellular pertussis vaccine, adsorbed [facility] 04-05-2012 tuberculin skin test ; purified protein derivative solution, intradermal [facility], [place] 02-24-2006 hepatitis B vaccine, pediatric or pediatric/adolescent dosage Loli Matias MD Work Phone: [facility] 10-26-2005 hepatitis B vaccine, pediatric or pediatric/adolescent dosage Loli Matias MD Work Phone: [facility] 09-24-2005 hepatitis B vaccine, pediatric or pediatric/adolescent dosage Loli Matias MD Work Phone: [facility] 04-04-2002 hepatitis A and hepatitis B vaccine Loli Matias MD Work Phone: [facility] 04-04-2002 TD(adult) unspecifie d formulation Loli Matias MD Work Phone: [facility] 01-28-1999 measles, mumps and rubella virus vaccine Loli Matias MD Work Phone: [facility] 04-17-1992 diphtheria, tetanus toxoids and acellular pertussis vaccine, unspecified formulation Loli Matias MD Work Phone: [facility] 05-06-1988 diphtheria, tetanus toxoids and pertussis vaccine Loli Matias MD Work Phone: [facility] 05-06-1988 measles, mumps and rubella virus vaccine Loli Matias MD Work Phone: [facility] 01-01-1988 diphtheria, tetanus toxoids and pertussis vaccine Loli Matias MD Work Phone: [facility] 05-01-1987 diphtheria, tetanus toxoids and pertussis vaccine Loli Matias MD Work Phone: [facility] Payers Date Payer Category Payer Unknown [id number] 2022 Unknown [id number] 2019 Unknown BCBS [place] P PO [id number] 2019-Present [phone] [address] [place] [address] [id number] 2019 Unknown [facility] UMR [place] CE PLUS [id number] 2019-Present [id number] 2018 Unknown [id number] 2018 Private Health Insurance AETNA A ETNA CHOICE POS/POSII/PREMIER CARE/PREMIER CARE PLUS xxxxxxxxxx 2018-Present xxxxxxxxxx [id number] 2018 Private Health Insurance [id number] 2017 Unknown [id number] 2017 Unknown [id number] 1986 Unknown [id number] 1986 Unknown [id number] 1986 Unknown [id number] 1986 Unknown [id number] 1986 Unknown [id number] 1986 Unknown [id number] 1959 Self-pay 1959 Unknown [id number] Unknown [id number] 3 Social History Date Type Detail Facility Start: 06-01-2017 End: 03-24-2023 Tobacco smoking status ILIS Never smoker [facility] Work Phone: Start: 1985 Sex Assigned At Not on file [facility] Work Phone: Start: 04-26-2019 End: 07-17-2019 Alcohol intake No [facility]- [place], [place] Start: 09-12-2019 End: 03-24-2023 Alcohol intake Current non-drinker of alcohol (finding) [facility] Start: 09-12-2019 End: 03-24-2023 Tobacco use and exposure Never used [facility] Start: 01-13-2022 Alcohol intake [employer] Work Phone: Start: 11-18-2021 History SDOH Financial 5 [employer] Work Phone: Start: 11-18-2021 End: 03-24-2023 History SDOH Food Worry 1 [employer] Phone: Start: 03-24-2023 History SDOH Financial 4 [facility] Start: 03-24-2023 History SDOH Transpo rt Non-Med 2 [facility] Medical Equipment Procedure Code Equipment Code Equipment Origin al Text Equipment Identifier Dates Kit 4ml Vh S/D Tisseel Frozen - [id number] Start: 04-30-2017 Strip Ech 60 Pranav nf Bovine Dorothy-Strips Dry W/Veritas - [id number] Start: 04-30-2017 Kit 4ml Vh S/D Tisseel Frozen - [id number] Start: 04-30-2017 Strip Ech 60 Pranav nf Bovine Dorothy-Strips Dry W/Veritas - [id number] Start: 04-30-2017 Kit 4ml Vh S/D Tisseel Frozen - [id number] Start: 04-30-2017 Strip Ech 60 Pranav nf Bovine Dorothy-Strips Dry W/Veritas - [id number] Start: 04-30-2017 Kit 4ml Vh S/D Tisseel Frozen - [id number] Start: 04-30-2017 Strip Ech 60 Pranav nf Bovine Dorothy-Strips Dry W/Veritas - [id number] Start: 04-30-2017 Kit 4ml Vh S/D Tisseel Frozen - [id number] Start: 04-30-2017 Strip Ech 60 Pranav nf Bovine Dorothy-Strips Dry W/Veritas - [id number] Start: 04-30-2017 Kit 4ml Vh S/D Tisseel Frozen - [id number] Start: 04-30-2017 Comment on above: Description: 8ml use d ( 2-4ml kits) Clarification for billing purpose 8 ml = 4 used 0 wasted Strip Ech 60 Pranav nf Bovine Dorothy-Strips Dry W/Veritas - [id number] Start: 04-30-2017 Comment on above: Description: Charge Only Kit 4ml Vh S/D Tisseel Frozen - [id number] Start: 04-30-2017 Strip Ech 60 Rpanav nf Bovine Dorothy-Strips Dry W/Veritas - [id number] Start: 04-30-2017 Kit 4ml Vh S/D Tisseel Frozen - [id number] Start: 04-30-2017 Strip Ech 60 Pranav nf Bovine Dorothy-Strips Dry W/Veritas - [id number] Start: 04-30-2017 Evaluation note Note Date & Type Note Facility Evaluation note Diagnosis Acquired hypothyroidism Unspecified hypothyroidism documented in this encounter [facility] [employer] Phone: Evaluation note Note Date & Type Note Facility Evaluation note Diagnosis Acquired hypothyroidism [facility]specified [facility] Bariatric surgery status - P [...] FoundDocuments on File Type Date Recorded Patient Auditing Specialist Expl anation Advance Directives and Living Will Latest Code Status on File Code Status Date Activated Date Inactivated Comments Full Code 04/30/2017 12:41 PM 05/02/2017 7:17 PM Documents on File Type Date Recorded Patient Auditing Specialist Expl anation Advance Directives and Living Will Power of Nuclear Scientist Documents on File Type Date Recorded Patient Auditing Specialist Expl anation Advance Directives and Living Will Power of Nuclear Scientist Documents on File Type Date Recorded Patient Auditing Specialist Expl anation ACP-Advance Directive ACP-Power of Nuclear Scientist History of Present Illness * Behzad Hu MD - 08/09/2017 2:32 PM EDT Formatting of this note may be different from the original. [facility] POSTOP BARIATRIC VISIT PATIENT [...] W/ BIOPSY; Surgeon: Behzad Hu MD; Location: [facility]; Service: GASTRIC SLEEVE BYPASS LAPAROSCOPIC WITH EGD N/A 04/30/2017 Procedure: LAPAROSCOPIC SLEEVE GASTRECTOMY HIATAL HERNIA REPAIR LIVER BIOPSY ESOPHAGOGASTRODUODENOSCOPY; Surgeon: Behzad Hu MD; Location: [facility] Main OR; Service: Social History [...] (40 mg total) by mouth daily. pediatric ksvkydxd-[id number] (flintstones complete) Chew Chew and Swallow Take [...] Hu MD - 09/12/2019 4:49 PM EST [facility] POSTOP BARIATRIC VISIT PATIENT [...] W/ BIOPSY; Surgeon: Behzad Hu MD; Location: [facility]; Service: GASTRIC SLEEVE BYPASS LAPAROSCOPIC WITH EGD N/A 04/30/2017 Procedure: LAPAROSCOPIC SLEEVE GASTRECTOMY HIATAL HERNIA REPAIR LIVER BIOPSY ESOPHAGOGASTRODUODENOSCOPY; Surgeon: Behzad Hu MD; Location: [facility] Main OR; Service: Social History [...] file Gets together: Not on file Attends judaism service: Not on file Active member of [...] HEAD/NECK TISSUES,REAL TIME Loli Matias MD [address] [place] [address] Specialty Diagnoses / Procedures Referred By Contac t Referred To Contact Radiology Diagnoses Acquired hypothyroidism Procedures US HEAD NECK SOFT TISSUE THYROID Nissa Lo APRN - JULES [address] [address] Referral ID Status Reason Start Date Expiration Date V isits Requested Visits Authorized [id number] Pending Review 11/09/2022 11/09/2023 1 1 Hospital [...] ALVARADO DO Consulting Physician - CAPRICE GUSTAFSON, [facility] Course Pt is a 33 F admitted [...] s (more content not included)... Note Patient: SUKDHEV SCHWARTZ Age: 33 years Sex: Female : 1985 Associated Diagnoses: None Author: Davie Eaton Jr, DO Postoperative Information Post Operative Note: Post Anesthesia Care Unit. Anesthetic utilized: Monitored anesthesia care. Health Status Allergies: Allergic Reactions (Selected) Severe Pollen- Hayfever. Severity Not Documented Levaquin- Liver damage. Problem list: All Problems Ovarian dysfunction / SNOMED CT 55184832 / Confirmed Hypothyroidism / SNOMED CT 26194192 / Confirmed Pancreatitis / SNOMED CT 851850901 / Confirmed Physical Examination Vital Signs 07/18/2019 [...] All Problems Ovarian dysfunction / SNOMED CT 97970208 / Confirmed Hypothyroidism / SNOMED CT 12007448 / Confirmed Incomplete miscarriage / SNOMED CT 685977941 / Confirmed missed Pancreatitis / SNOMED CT 238566605 / Confirmed Physical Examination Vital Signs 10/20/2019 [...] All Problems Ovarian dysfunction / SNOMED CT 35456856 / Confirmed Hypothyroidism / SNOMED CT 10847285 / Confirmed Pancreatitis / SNOMED CT 608213348 / Confirmed Physical Examination Vital Signs 07/18/2019 [...] All Problems Ovarian dysfunction / SNOMED CT 78157444 / Confirmed Hypothyroidism / SNOMED CT 99664438 / Confirmed Incomplete miscarriage / SNOMED CT 719442570 / Confirmed missed Pancreatitis / SNOMED CT 573203473 / Confirmed Physical Examination Vital Signs 10/20/2019 [...] section and content) DATE CREATED AUTHOR 04/15/2018 [facility] DATE CREATED AUTHOR AUTHOR'S ORGANIZ ATION 07/23/2019 [facility] DATE CREATED AUTHOR AUTHOR'S ORGANIZ ATION 09/13/2019 [facility] DATE CREATED AUTHOR AUTHOR'S ORGANIZ ATION 06/18/2020 [facility] DATE CREATED AUTHOR AUTHOR'S [...] HEAD/NECK TISSUES,REAL TIME Loli Matias MD [address] [place] [address] Reason Comments Follow-up GS 04/30/17. Prop wt: 350. 10/24/18 229lbs 09/12/19 wt= 240lbs Reason Onset Date Comments Medication Refill 11/19/2020 Specialty Diagnoses / Procedures Referred By Contac t Referred To Contact Radiology Diagnoses Acquired hypothyroidism Procedures US HEAD NECK SOFT TISSUE THYROID Nissa Lo, BOX SPINNER - AIRFRAME TECHNICAL OFFICER [address] [place] [address] Referral ID Status Reason Start Date Expiration Date V isits Requested Visits Authorized [id number] Pending Review 11/09/2022 11/09/2023 1 1 Care Teams (unrecognized sec tion and content) Printing Roller Handler Relationship Specialty Start Date End Date Loli Matias MD [address] [place] [address] PCP - General 07/24/16 Printing Roller Handler Relationship Specialty Start Date End Date Loli Matias MD [address] [place] [address] PCP - General 07/24/16 Printing Roller Handler Relationship Specialty Start Date End Date Loli Matias MD [address] [place] [address] PCP - General 07/24/16 FOR RECORDS [...] BE BASED ON THE PRIMARY CLINICAL RECORDS. [employer] [facility]. provides no warranty or guarantee of the accuracy or completeness of information in this document.
== END 2024-02-14 07:29 | disposition home or self-care (01) ==
LOC: VC 07:28
PROVIDERS: PCP Radiology Diagnostic Radiology; Visit Provider Radiology Diagnostic Radiology
DX: I80.01 Phlebitis and thrombophlebitis of superficial vessels of right lower extremity (principal)
CPT/HCPCS: 93971; G0463

== ENCOUNTER 2024-02-16 07:34 | Outpatient (OUT) | payer OTHER, SELFPAY ==
--- NOTE | 2024-02-16 07:37 | VEIN_ITS ---
The [address] [address] Patient Name: SUKHDEV WATERMAN MRN: [id number] date: 1985 Sex: F Assigned Patient Location: Current Patient Location: Accession/Order Number: [id number] Exam Date: 02/16/2024 07:40 Report Date: 02/16/2024 09:06 At the request of: DREW MCBRIDE Procedure: VC INJ Foam Sclerosant WUS ELECTRICAL EQUIPMENT ASSEMBLER PROCEDURE: VC INJ Foam Sclerosant WUS ELECTRICAL EQUIPMENT ASSEMBLER, left leg COMPARISON: None. HISTORY: I83.813 painful varicose veins Pre-operative Diagnosis: CEAP class C3 venous insufficiency with pain, tenderness, edema and incompetent bilateral varicose and saphenous vein(s), chronic venous insufficiency bilateral leg secondary to venous incompetence Post-operative Diagnosis: CEAP class C3 venous insufficiency with pain, tenderness, edema and incompetent bilateral varicose and saphenous vein(s), chronic venous insufficiency bilateral leg secondary to venous incompetence Procedure Performed: 1. Ultrasound-guided microfoam chemical ablation with Varithenaregistered 2. Intraoperative ultrasound guidance No charge for the right leg Anesthesia: None Indications for Procedure: 38-year-old female who presents with a long history of lower extremity pain and swelling. The patient failed conservative medical therapy including medical compression stockings, exercise and analgesics. Prior procedures include . 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 Duplex scan showed reflux and enlarged diameters up to 4 mm. The patient underwent informed consent including management options where the complications of infection, bleeding, pain, and skin injury were discussed. Particular attention was spent discussing thrombus extension and deep vein thrombosis as well as the possibility of pulmonary embolus and treatment with oral or injectable blood thinners. Procedure: The patient walked to the procedure room. All applicable staff donned appropriate apparel. A procedure timeout was performed to confirm correct patient, correct extremity, correct procedure, and correct room set-up including presence of all applicable supplies, devices, and drugs. A duplex ultrasound, performed by myself confirmed the location and incompetence of branch saphenous varicosities and their course was marked on the skin together with the dilated tributaries. The extent of treatment of the vein and the associated varicosities was determined through ultrasound mapping. The skin was prepped and then punctured with a butterfly needle and advanced under ultrasound guidance. The Varithenaregistered canister was activated and the canister was primed and purged as required in the instructions for use. Varithenaregistered was drawn into a sterile syringe. The following injections were made: 2 cc injected into a left distal medial lower leg 4 mm varicose vein 2 cc injected into a left distal medial lower leg 3 mm varicose vein 4 cc injected into a left 4 mm medial knee varicose vein 3 cc injected into a 3 mm right distal medial lower leg varicose vein 4 cc injected into a 4 mm right mid medial lower leg varicose vein Varithenaregistered was slowly administered at 0.5-1.0 cc/second with close observation by ultrasound of its course in the vessels. Total volume utilized was: 15cc. Following administration of Varithenaregistered the leg was elevated and the patient was asked to repeatedly dorsiflex the ankle to limit flow of Varithenaregistered into perforating veins. Once appropriate spasm had been confirmed in the treated veins, the vascular catheter was removed from the leg and light pressure was applied over the puncture site for hemostasis. The common femoral and deep superficial veins were then evaluated for flow and compressibility prior to dressing placement. The lower extremity was kept elevated at 45 degrees above the horizontal and cording material was applied over the saphenous segments and tributaries to allow for eccentric compression over the target vessels including the targeted saphenous vein(s). A multilayer dressing was applied consisting of foam pads, coban and thigh-high 20-30 mm Hg compression elastic support hose were placed on the patient. The leg was lowered only after compression had been applied and the patient was immediately ambulatory. The patient ambulated 10 minutes under supervision and was without apparent concerns at time of release. Post-care instructions include advising patient to keep post-treatment bandages in place and dry for 48 hours, avoid extended periods of inactivity, avoid heavy exercise for one week, wear compression stockings on the treated leg continuously for two weeks, to walk daily for 10 minutes over the next month. The patient was instructed to take an anti-inflammatory medicine as needed and to follow up for color duplex scan of the Saphenous veins, the treated branch saphenous varicosities, the adjacent deep veins, and additional treatment within 7 days. PERSONNEL: Jose Escalante RN Electronically authenticated by: DREW MCBRIDE Date: 02/16/2024 09:06
--- OUTSIDE RECORDS SUMMARY | 2024-02-16 07:37 | XMS_ITS | CCD ---
Author Organization [facility] Care Team Providers Care [employer] Agent Name Role Phone Unavailable Unavailable Unavailable VerLoli [...] Unavaila ble Loli Matias Primary Care Provider [phone] Loli Matias Primary Care Provider [phone] RANA, BEHZAD RAJENDRASINH Attending Unavail able LOLI [...] Propensity to adverse reactions to drug 04-26-2019 [place], [place] (5 sources) levoFLOXacin Drug Allergy 04-26-2019 [place] (3 sources) Penicillins Propensity to adverse reactions to drug 12-01-2011 [place] (3 sources) Seasonal allergy Propensity to adverse reactions to substance 11-18-2021 [facility] (2 sources) Penicillins Propensity to adverse reactions to drug 12-01-2011 [facility] (2 sources) Pollen Propensity to adverse reactions to drug 04-26-2019 [facility] Work Phone: Medications Current Medications Medication [...] Active docusate sodium 50 mg / sennosides, retirement 8.6 mg oral tablet (3 sources) take [...] Start: 04-23-2016 take 2 tablets by mo [facility] every eight hours as needed for nausea [...] Active Start: 11-18-2021 take 1 tablet by [facility] once daily pantoprazole (PROTONIX) 40 MG [...] Class(es) Dates Sig (Normalized) Sig (Original) pediatric rwiicxds-unjg-vtu (flintstones complete) Chew (2 sources) pediatric uuylecsn-oiqi-yta (flintstones complete) Chew Chew and Swallow Take two daily . Active Pediatric Multivitamin With Iron And Other Minerals Chewable Tablet (1 source) pediatric bymlvxdo-dnya-jcl (flintstones complete) Chew Chew and Swallow Take [...] 04-03-2023 Thyroxine, Free 1.4 ng/dL Normal 0.9-1.7 [facility] Comment on above: Performed By: #### F T4 #### [address] [id number] Electronic Scanner Operator: Jarek Branch MD #### TSH #### [facility] [address] [place] [address] Electronic Scanner Operator: Drew Lee MD [facility] TSH [Mass/Vol] 0.83 [facility] Thyroid Stim. Horm.on 2022 Thyroid Stim. Horm. 0.83 uIU/mL Normal 0.30-5.00 [facility] Comment on above: Performed By: #### F T4 #### [address] [place], [place] [id number] Electronic Scanner Operator: Jarek Branch MD #### TSH #### [facility] [address] [place] [address] Electronic Scanner Operator: Drew Lee MD US HEAD NECK SOFT [...] Villafuerte Jr., MD 11/11/22 Final result Normal [facility] No significant findings. No specific follow-up needed. [facility] EXAM: US HEAD NECK [...] isthmus no longer seen. Thyroid echogenicity normal. [facility] Manny Villafuerte Jr., MD [...] No significant findings. No specific follow-up needed. [employer] Phone: US HEAD NECK SOFT TISSUE THY ROIDOrdered By: Manny Villafuerte on 11-11-2022 [employer] Phone: US HEAD NECK SOFT TISSUE THY ROIDon 11-10-2022 Radiology Study observation (narrative) [employer] Phone: Coding Summary.on 05-31-2020 Coding Summary. CODING DATE: 020 FINAL [facility] STATUS: Home (Routine DC) PAYOR: Leela GROUPERS: [...] Conception, Retained, Via Natural or Artificial Opening [id number] Control Bleeding in Davie Grijalva MD 05/27/2020 Genitourinary Tract, Via Natural or Artificial Opening 11306F6 Transfusion of Nonautologous Davie Grijalva MD 05/26/2020 Red Blood Cells into Peripheral Vein, Percutaneous Approach 43959T6 Transfusion of Nonautologous Davie Grijalva MD 05/26/2020 Red Blood Cells into Peripheral Vein, Percutaneous Approach 50484A7 Transfusion of Nonautologous Davie Grijalva MD 05/26/2020 Red Blood Cells into Peripheral Vein, Percutaneous Approach 51837A7 Transfusion of Nonautologous Davie Grijalva MD 05/26/2020 Red Blood Cells into Peripheral Vein, Percutaneous Approach 77935A7 Transfusion of Nonautologous Davie Grijalva MD 05/26/2020 Frozen Plasma into Peripheral Vein, Percutaneous Approach 36702B9 Transfusion of Nonautologous Davie Grijalva MD 05/26/2020 Frozen Plasma into Peripheral Vein, Percutaneous Approach 37448T7 Transfusion of Nonautologous Davie Grijalva MD 05/27/2020 Red Blood Cells into Peripheral Vein, Percutaneous Approach NOTE: The code number assigned matches the documented diagnosis and / or procedure in the patient's chart. However, the narrative phrase printed from the coding software may appear abbreviated, or result in slightly different terminology. Coded By: Rae Milton Date Saved: 05/31/2020 11:44 am Normal [facility] IntraOperative Documentson 0 05-31-2020 IntraOperative Documents [id number]:127 Normal [facility] Consent for Procedure/Surger yon 05-28-2020 Consent for Procedure/Surgery [id number]#1.00CD:127 Normal [facility] Discharge Instructionson Discharge Instructions [id number]#[id number]:127 Normal [facility] Discharge Instructions Given Worseningon 05-28-2020 Discharge Instructions Given Worsening The following Patient Education Materials have been given to the patient: EducationMaterial Normal [facility] History and Physicalon 05-28 History and [...] Davie Grijalva MD, FACOG lkr Dictated: 05/26/2020 #[id number] Typed 05/27/2020 #[id number] cc: Davie Grijalva MD, MICHAEL [facility] Comment on above: Result Comment: Elec tronically Signed By: Rudi GUSTAFSON, Dvaie Duong\.br\Date and Time Signed: 05/28/20 08:12 EDT Inpatient Clinical Summaryon 05-28-2020 Inpatient Clinical Summary [place] [id number] Clinical Summary Person Information Name: SUKHDEV SCHWARTZ Stacey/[facility] Age: 34 Years : 1985 Sex: Female PCP: SONIA GUSTAFSON, LOLI Vela Marital Status: Phone: [phone] Race: White Ethnicity: Non- or Language: [place] Visit Id: Visit Reason: Nausea; Dizziness; Vaginal bleeding; VAG BLEEDING Speciality: Acuity: Other Enc Type: Inpatient Med Service: Obstetrics Arrival: 05/26/2020 11:09:13 Discharge: 05/28/2020 08:40:00 Dispo Type: Home (Routine DC) Address: [address] [id number] Provider Notes: Diagnosis: 1:Miscarriage; 2:Retained products of [...] range between ( 80.0 and 100.0 ) [place] Auto: 6.7 % -- Normal range between ( 4.0 and 14.0 ) MPV: 7.4 fL -- Normal range between ( 6.4 and 10.8 ) Neutro Auto: 68.3 % -- Normal range between ( 36.0 and 75.0 ) Platelet: 278.0 E9/L -- Normal range between ( 150.0 and 500.0 ) WBC: 7.0 E9/L -- Normal range between ( 4.0 and 11.0 ) [place] Absolute: 0.5 E9/L -- Normal range between [...] Follow up: With: Address: When: Dr. Grijalva [phone] Within 1 to 2 weeks Comments: Call for any problems. Patient Education Information: Menorrhagia Normal [facility] Inpatient Patient Summaryon 05-28-2020 Inpatient Patient Summary [place] [id number] Patient Discharge Instructions PERSON INFORMATION Name: SUKHDEV [...] Follow up: With: Address: When: Dr. Grijalva [phone] Within 1 to 2 weeks Comments: Call [...] hospitalization. HOME CARE INSTRUCTIONS ? Only take ljcg-oua-cgllrfb or prescription medicines as directed by your [...] Document Reviewed: 03/25/2014 ExitCare? Patient Information ?2015 YouLicense. This information is not intended to replace advice given to you by your health care provider. Make sure you discuss any questions you have with your health care provider. Medication Leaflets: Thank you for choosing [facility] Normal [facility] IntraOperative Documentson 0 8-11-2020 IntraOperative Documents [id number]#[id number]:127 Normal [facility] Operative Reporton 0 Operative Report Date [...] Davie Grijalva MD, FACOG lkr Dictated: 05/27/2020 #[id number] Typed: 05/27/2020 #[id number] cc: Davie Grijalva MD, MICHAEL [facility] Comment on above: Result Comment: [...] q6hr, # 15 tab(s), Refills(s) 0, Pharmacy: [facility] #16 Documented Medications Documented Multivitamins: 1 tab(s), [...] list: All Problems Pancreatitis / SNOMED CT 948579460 / Confirmed Incomplete miscarriage / SNOMED CT 171224845 / Confirmed missed Ovarian dysfunction / SNOMED CT 92771498 / Confirmed Hypothyroidism / SNOMED CT 52959160 / Confirmed Resolved: / SNOMED CT 278434031 Resolved: / SNOMED CT 313661237 Resolved: / SNOMED CT 424954719 Resolved: / SNOMED CT 818317943 Physical Examination Intake and Output Denies significant [...] 0 . Respiratory: Adequate air exchange with roman catholic of preoperative function.. Cardiovascular: Cardiovascular function is stable and has returned to preoperative levels.. Neurologic: Pt has returned to preoperative baseline.. Review / Management Condition: Stable. Assessment Anesthetic outcome No anesthetic complications noted. Plan Transfer/ Discharge: Patient can be discharged from PACU when criteria met. Condition good. Normal [facility] Comment on above: Result Comment: Elec [...] q6hr, # 15 tab(s), Refills(s) 0, Pharmacy: [facility] #16 Documented Medications Documented Multivitamins: 1 tab(s), [...] list: All Problems Pancreatitis / SNOMED CT 745084235 / Confirmed Incomplete miscarriage / SNOMED CT 530657691 / Confirmed missed Ovarian dysfunction / SNOMED CT 16140891 / Confirmed Hypothyroidism / SNOMED CT 63830754 / Confirmed Physical Examination Intake and Output [...] (MAY [birth year]:) Respiratory: Adequate air exchange with roman catholic of preoperative function.. Cardiovascular: Cardiovascular function is stable and has returned to preoperative levels.. Neurologic: Pt has returned to preoperative baseline.. Review / Management Condition: Stable. Assessment Anesthetic outcome No anesthetic complications noted. Plan Transfer/ Discharge: Patient can be discharged from PACU when criteria met. Condition good. [facility] Comment on above: Result Comment: [...] Davie Grijalva MD, FACOG gls Dictated: 05/27/2020 #[id number] Typed: 05/27/2020 #[id number] cc: Davie Grijalva MD, FACOG [facility] Comment on above: Result Comment: Elec tronically Signed By: Rudi GUSTAFSON, Davie Duong\.br\Date and Time Signed: 05/28/20 08:11 EDT Consent for Anesthesiaon Consent for Anesthesia [id number]:127 [facility] FSPon 05-27-2020 Fibrin+Fibrinogen fragments (S) [Mass/Vol] <10 Normal <10 [facility] Comment on above: Performed By: #### 1 1952863, 8848083, 8640342, 1211392, 3488784, 1815302, 30377805, 5279669 #### [facility] [address] [place] [address] Fibrin+Fibrinogen fragments (S) [Mass/Vol] <10 Normal <10 [facility] Comment on above: Performed By: #### 1 8997727, 3658556, 1056574, 4813365, 9110272, 0231533, 94333940, 8081670 #### [facility] [address] [place] [address] Fibrin+Fibrinogen fragments (S) [Mass/Vol] <10 Normal <10 [facility] Comment on above: Performed By: #### 1 6896092, 0822346, 5969403, 9698760, 3540811, 3788612, 87532951, 4630106 #### [facility] [address] [place] [address] 31528 Fibrinogenon 05-27-2020 Fibrinogen Coag (PPP) [Mass/Vol] 181 mg/dL Low 200-393 [facility] Comment on above: Performed By: #### 1 0695681, 5488952, 2092288, 1515699, 6501644, 7705849, 77429232, 1588132 #### [facility] [address] [place] [address]15 Fibrinogen Coag (PPP) [Mass/Vol] 178 mg/dL Low 200-393 [facility] Comment on above: Performed By: #### 1 5747577, 2841956, 1664392, 2900521, 5321329, 0574740, 02150903, 9440388 #### [facility] [address] [place] [address] 50267 Fibrinogen Coag (PPP) [Mass/Vol] 174 mg/dL Low 200-393 [facility] Comment on above: Performed By: #### 1 6095932, 9499720, 5605936, 0317217, 6198828, 8616323, 38124312, 0463979 #### [facility] [address] [place] [address] 29610 Hct & Hgbon 05-27-2020 Hematocrit (Bld) [Volume fraction] 23.9 % Low 34.0-46.0 [facility] Comment on above: Performed By: #### 1 3850353, 9777337, 8835050, 7173562, 9582895, 5948184, 04727525, 1325090 #### [facility] [address] [place] [address]287 Hemoglobin (Bld) [Mass/Vol] 8.3 g/dL Low 12.0-16.0 [facility] Comment on above: Performed By: #### 1 6493866, 0942768, 7674473, 5965730, 9990441, 9700517, 91633879, 8076562 #### [facility] [address] [place] [address] 68085 Hematocrit (Bld) [Volume fraction] 22.4 % Low 34.0-46.0 [facility] Comment on above: Performed By: #### 1 3141707, 6798884, 2541171, 9985054, 2305044, 1778105, 53086890, 8844917 #### [facility] [address] [place] [address] 60054 Hemoglobin (Bld) [Mass/Vol] 7.8 g/dL Low 12.0-16.0 [facility] Comment on above: Performed By: #### 1 9407272, 8238099, 8823944, 3781222, 6866623, 6441786, 00038379, 0558804 #### [facility] [address] [place] [address]7763 Hematocrit (Bld) [Volume fraction] 26.2 % Low 34.0-46.0 [facility] Comment on above: Performed By: #### 1 4149841, 0538514, 0691115, 5391773, 9284302, 1459558, 24279840, 5322800 #### [facility] [address] [place] [address] 24954 Hemoglobin (Bld) [Mass/Vol] 8.9 g/dL Low 12.0-16.0 [facility] Comment on above: Performed By: #### 1 7552355, 3064813, 4289786, 4582061, 8299977, 9964188, 36131264, 7428928 #### [facility] [address] [place] [address] IntraOperative Documentson 0 05-27-2020 IntraOperative Documents [id number]:127 Normal [facility] Main OR Intraoperative Recor don 05-27-2020 Main OR Intraoperative Record IntraOp Document Type FT Summary Primary Physician: Davie Grijalva MD Finalized Date/Time: 05/27/20 13:44:47 Pt. Name: SUKHDEV SCHWARTZ Antoni Mo/Sex: 1985 Female Med Rec #: [id number] Physician: Davie Grijalva MD Financial #: [id number] Pt. 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 Yes Yes Last [...] Patient Status Stable Skin. Condition Bruised, Intact, [place], Description same as preop Warm, and Dry [...] BLANKET MISTRAL AIR Quantity 1 Aid TORSO [[id number]][F] Fluid/[place] Unit Mistral warming system Setting 43c, high Body Site Upper anterior torso Last Modified By: Rena Castelan RN 05/26/20 20:15:53 Case Comments Finalized By: Juanita Stein CST Document Signatures Signed By: Rena Castelan RN 05/26/20 20:16 Juanita Stein CST 05/27/20 13:44 Normal [facility] PACU Recordon 05-27-2020 PACU Record [id number]:127 Normal [facility] PT & PTTon 05-27-2020 aPTT Coag (PPP) [Time] 24.6 second(s) Low 25.1-36.5 [facility] Comment on above: Order Comment: Order Added by Discern Expert. Result Comment: Hepa rin therapeutic range (represented by Anti-Factor Xa activity of 0.2 - 0.4 U/mL) corresponds to PTT of 56.6 - 109.0 sec. Performed By: #### 1 5685992, 7679019, 6613557, 7070058, 5159080, 7589696, 09572196, 0890997 #### [facility] [address] [place] [address] INR Coag (PPP) [Relative time] 1.1 {INR} [facility] Comment on above: Order Comment: Order Added by Discern Expert. Result Comment: INR results are specifically intended to assess patients stabilized on long-term Anticoagulation therapy suggested INR?s ?Less Intensive Anticoagulation? 2.0 ? 3.0 Conventional Range 3.0 ? 4.5 Performed By: #### 1 0190799, 4391546, 1174263, 4741731, 7435066, 9767554, 20726345, 0447925 #### [facility] [address] [place] [address] PT Coag (PPP) [Time] 12.6 second(s) Normal 10.2-12.9 [facility] Comment on above: Order Comment: Order Added by Discern Expert. Performed By: #### 1 1552765, 7231465, 5733956, 3042916, 5829854, 0316531, 40955693, 4888018 #### [facility] [address] [place] [address] aPTT Coag (PPP) [Time] 25.1 second(s) Normal 25.1-36.5 [facility] Comment on above: Result Comment: Hepa rin therapeutic range (represented by Anti-Factor Xa activity of 0.2 - 0.4 U/mL) corresponds to PTT of 56.6 - 109.0 sec. Performed By: #### 1 6352741, 6410782, 4700173, 3049034, 1281394, 5647189, 56827822, 9506299 #### [facility] [address] [place] [address] INR Coag (PPP) [Relative time] 1.2 {INR} [facility] Comment on above: Result Comment: INR results are specifically intended to assess patients stabilized on long-term Anticoagulation therapy suggested INR?s ?Less Intensive Anticoagulation? 2.0 ? 3.0 Conventional Range 3.0 ? 4.5 Performed By: #### 1 6438205, 4279746, 2344957, 3763460, 2282260, 4166195, 15151182, 8841778 #### [facility] [address] [place] [address] PT Coag (PPP) [Time] 13.5 second(s) High 10.2-12.9 [facility] Comment on above: Performed By: #### 1 2955190, 8478794, 0691961, 4671070, 1300456, 7878413, 81898566, 6754724 #### [facility] [address] [place] [address] aPTT Coag (PPP) [Time] 24.5 second(s) Low 25.1-36.5 [facility] Comment on above: Result Comment: Hepa rin therapeutic range (represented by Anti-Factor Xa activity of 0.2 - 0.4 U/mL) corresponds to PTT of 56.6 - 109.0 sec. Performed By: #### 1 1342812, 4399559, 6769068, 6809733, 9659842, 6844172, 05878882, 7242071 #### [facility] [address] [place] [address] INR Coag (PPP) [Relative time] 1.2 {INR} [facility] Comment on above: Result Comment: INR results are specifically intended to assess patients stabilized on long-term Anticoagulation therapy suggested INR?s ?Less Intensive Anticoagulation? 2.0 ? 3.0 Conventional Range 3.0 ? 4.5 Performed By: #### 1 2225973, 9046858, 6617691, 5209997, 2991576, 0898190, 53243376, 8283849 #### [facility] [address] [place] [address] PT Coag (PPP) [Time] 14.0 second(s) High 10.2-12.9 [facility] Comment on above: Performed By: #### 1 8250643, 3442342, 8995912, 7626984, 2897063, 0347003, 24644324, 0946037 #### [facility] [address] [place] [address] ABO/Rhon 05-26-2020 ABO/Rh Positive [facility] Comment on above: Performed By: #### 1 2595290, 5840601, 7167656, 9592402, 0942958, 4494759, 77159602, 2783326 #### [facility] [address] [place] [address]67 ABO/Rh History Checkon 05-26 ABO/Rh History Check Verified Hx Blood Type Normal [facility] Comment on above: Performed By: #### 1 8641584, 2846944, 3147600, 3660304, 6688949, 5834152, 89999395, 9200388 #### [facility] [address] [place] [address] 40868 ABSCon 05-26-2020 ABSC Gel Interp Negative Normal [facility] Comment on above: Performed By: #### 1 8422058, 7780850, 2767527, 1430511, 0727563, 4134723, 79666462, 1298122 #### [facility] [address] [place] [address] 39103 Auto Diffon 05-26-2020 Basophils/100 WBC (Bld) 0.8 % Normal 0.0-2.0 [facility] Comment on above: Order Comment: Order Added by Discern Expert. Performed By: #### 1 6257450, 4341693, 9024742, 5062476, 2545475, 7609342, 80423410, 9760204 #### [facility] [address] [place] [address] 57792 Basophils/Leukocyte s Auto (Bld) [Pure # fraction] 0.1 E9/L Normal 0.0-0.2 [facility] Comment on above: Order Comment: Order Added by Discern Expert. Performed By: #### 1 7834942, 7473911, 2234497, 1070390, 7821686, 1889210, 12455523, 5948134 #### [facility] [address] [place] [address] 42984 Eosinophils/100 WBC (Bld) 2.0 % Normal 0.0-8.0 [facility] Comment on above: Order Comment: Order Added by Discern Expert. Performed By: #### 1 7218795, 7751130, 9161406, 4151944, 4489763, 5376079, 75709591, 0188016 #### [facility] [address] [place] [address] Eosinophils/Leukocy dariel Auto (Bld) [Pure # fraction] 0.1 E9/L Normal 0.0-0.5 [facility] Comment on above: Order Comment: Order Added by Discern Expert. Performed By: #### 1 7935648, 0789158, 8199968, 2287820, 9992308, 9727677, 56681057, 0718278 #### [facility] [address] [place] [address] Lymphocytes/100 WBC (Bld) 22.2 % Normal 14.0-50.0 [facility] Comment on above: Order Comment: Order Added by Discern Expert. Performed By: #### 1 0253285, 9527107, 8156368, 7897025, 1188690, 7811614, 56092063, 2996652 #### [facility] [address] [place] [address] Lymphocytes/Leukocy dariel Auto (Bld) [Pure # fraction] 1.6 E9/L Normal 1.0-4.0 [facility] Comment on above: Order Comment: Order Added by Discern Expert. Performed By: #### 1 2123229, 3482407, 0487247, 3854473, 4801521, 0930319, 34831764, 4632927 #### [facility] [address] [place] [address] Monocytes/100 WBC (Bld) 6.7 % Normal 4.0-14.0 [facility] Comment on above: Order Comment: Order Added by Discern Expert. Performed By: #### 1 3996278, 6971073, 4529887, 6689586, 0851603, 9544803, 71961420, 9634802 #### [facility] [address] [place] [address] Monocytes/Leukocyte s Auto (Bld) [Pure # fraction] 0.5 E9/L Normal 0.2-1.0 [facility] Comment on above: Order Comment: Order Added by Discern Expert. Performed By: #### 1 6608877, 6221050, 2628365, 9512440, 8539631, 8558530, 79161471, 8856131 #### [facility] [address] [place] [address] Neutrophils/100 WBC (Bld) 68.3 % Normal 36.0-75.0 [facility] Comment on above: Order Comment: Order Added by Discern Expert. Performed By: #### 1 5265641, 4649653, 5855217, 1949077, 6427921, 3313065, 52009886, 5191419 #### [facility] [address] [place] [address] Neutrophils/Leukocy dariel Auto (Bld) [Pure # fraction] 4.8 E9/L Normal 2.0-7.5 [facility] Comment on above: Order Comment: Order Added by Discern Expert. Performed By: #### 1 7618225, 5497028, 3063968, 9136535, 6740718, 4026849, 68499914, 0607810 #### [facility] [address] [place] [address] B hCG Qualon 05-26-2020 Beta hCG Ql Positive Normal [facility] Comment on above: Result Comment: mary ected Performed By: #### 1 2451871, 3044345, 0232956, 8546620, 1009300, 6402806, 68521344, 8323301 #### [facility] [address] [place] [address] BMPon 05-26-2020 Creatinine [Mass/Vol] 0.7 mg/dL Normal 0.5-1.3 [facility] Comment on above: Performed By: #### 1 1193814, 0192251, 5892572, 5594375, 3879905, 1412389, 43801670, 2928234 #### [facility] [address] [place] [address] Urea nitrogen [Mass/Vol] 15 mg/dL Normal 5-21 [facility] Comment on above: Performed By: #### 1 5124913, 1126748, 2645172, 1068658, 9346207, 3961710, 07006665, 9259064 #### [facility] [address] [place] [address] Urea nitrogen/Creatinine [Mass ratio] 21 No Units High 10-20 [facility] Comment on above: Performed By: #### 1 3319161, 3798851, 7266041, 8410333, 1294138, 2369256, 34253654, 0501091 #### [facility] [address] [place] [address] Anion gap [Moles/Vol] 12 mmol/L Normal 6-16 [facility] Comment on above: Performed By: #### 1 0486440, 2957468, 3779791, 0917469, 2253771, 1180882, 78112771, 5858460 #### [facility] [address] [place] [address] Calcium [Mass/Vol] 9.4 mg/dL Normal 8.9-11.1 [facility] Comment on above: Performed By: #### 1 3798751, 1630467, 2391364, 6580587, 8141864, 9113809, 60075226, 5523980 #### [facility] [address] [place] [address] Chloride [Moles/Vol] 105 mmol/L Normal 101-111 [facility] Comment on above: Performed By: #### 1 5043530, 6010043, 3303690, 0280332, 5761476, 7537542, 29693415, 9390467 #### [facility] [address] [place] [address] CO2 [Moles/Vol] 26 mmol/L Normal 21-31 [facility] Comment on above: Performed By: #### 1 2275542, 8739984, 7757152, 6544827, 4044733, 4449073, 26861707, 4961928 #### [facility] [address] [place] [address] Glucose [Mass/Vol] 101 mg/dL Normal 55-199 [facility] Comment on above: Result Comment: If t his glucose result represents a fasting glucose, interpretation should refer to the following reference range: 55-99 mg/dL Performed By: #### 1 0363055, 7927308, 0487065, 3056454, 4230662, 9434913, 48844525, 0953767 #### [facility] [address] [place] [address] Potassium [Moles/Vol] 3.9 mmol/L Normal 3.5-5.3 [facility] Comment on above: Performed By: #### 1 1378613, 7551521, 4400316, 7548835, 2969884, 7161267, 05280635, 2336007 #### [facility] [address] [place] [address] Sodium [Moles/Vol] 139 mmol/L Normal 135-145 [facility] Comment on above: Performed By: #### 1 1777011, 3062140, 4160672, 4145696, 2550172, 5611805, 57401179, 0035303 #### [facility] [address] [place] [address] [facility] HCG.beta subunit Qn 18 m[IU]/mL High 1-3 [facility] Comment on above: Result Comment: GEST ATIONAL AGE HCG RANGE (mIU/mL) NON- <1-3 0.2-1 WEEKS 5-50 1-2 WEEKS 50-500 2-3 WEEKS 100-5,000 3-4 WEEKS 500-10,000 4-5 WEEKS 1,000-50,000 5-6 WEEKS 10,000-100,000 6-8 WEEKS 15,000-200,000 8-12 WEEKS 10,000-100,000 Performed By: #### 1 4130638, 5535976, 2534526, 3293143, 2840694, 6729215, 31949283, 5041084 #### [facility] [address] [place] [address] Blood Bank ID#on 05-26-2020 BBID# [id number] [facility] Comment on above: Performed By: #### 1 2530746, 3489896, 0720274, 0398166, 4724812, 5527037, 95101296, 8096982 #### [facility] [address] [place] [address] CBC w/ Auto Diffon 0 Erythrocyte distribution width (RBC) [Ratio] 12.4 % Normal 10.9-14.2 [facility] Comment on above: Performed By: #### 1 9301627, 6303251, 9760653, 4846448, 0820069, 7483221, 16059673, 4268912 #### [facility] [address] [place] [address] Hematocrit (Bld) [Volume fraction] 36.6 % Normal 34.0-46.0 [facility] Comment on above: Performed By: #### 1 9456076, 1715375, 6244752, 0341443, 4281294, 8696378, 66574330, 0451889 #### [facility] [address] [place] [address] Hemoglobin (Bld) [Mass/Vol] 12.2 g/dL Normal 12.0-16.0 [facility] Comment on above: Performed By: #### 1 2922675, 7905516, 1613258, 4136496, 3208873, 8096391, 66114070, 6280868 #### [facility] [address] [place] [address] MCH (RBC) [Entitic mass] 29.8 pg Normal 27.0-34.0 [facility] Comment on above: Performed By: #### 1 5975929, 7613770, 3849378, 1179041, 1657782, 1443506, 19937850, 1467928 #### [facility] [address] [place] [address] MCHC (RBC) [Mass/Vol] 33.3 g/dL Normal 31.4-36.0 [facility] Comment on above: Performed By: #### 1 8756746, 8462308, 9508446, 3077828, 5419865, 8988686, 44414374, 8212341 #### [facility] [address] [place] [address] MCV (RBC) [Entitic vol] 89.5 fL Normal 80.0-100.0 [facility] Comment on above: Performed By: #### 1 9643020, 3858643, 2848154, 5723188, 3545710, 4623465, 80522803, 6682418 #### [facility] [address] [place] [address] Platelet mean volume (Bld) [Entitic vol] 7.4 fL Normal 6.4-10.8 [facility] Comment on above: Performed By: #### 1 6564396, 5848420, 5747513, 9561342, 6158435, 8639764, 94603583, 1337535 #### [facility] [address] [place], [place] [address] Platelets (Bld) [#/Vol] 278.0 E9/L Normal 150.0-500.0 [facility] Comment on above: Performed By: #### 1 3622536, 0899252, 1083090, 7017611, 8681508, 9220407, 95151547, 4759236 #### [facility] [address] [place], [place] [address] RBC (Bld) [#/Vol] 4.1 E12/L Low 4.3-5.9 [facility] Comment on above: Performed By: #### 1 2494449, 2082071, 7162845, 4702892, 4022998, 6553884, 01640554, 2987690 #### [facility] [address] [place] [address] WBC corrected for nucl RBC Auto (Bld) [#/Vol] 7.0 E9/L Normal 4.0-11.0 [facility] Comment on above: Performed By: #### 1 5927385, 5799669, 6404798, 1928866, 7166607, 9182337, 54516353, 4529529 #### [facility] [address] [place], [place] [address] Consent for Blood Transfusio non 05-26-2020 Consent for Blood Transfusion [id number]#[id number]:127 Normal [facility] Consent for Treatmenton Consent for Treatment [id number]#[id number]:127 Normal [facility] ED Clinical Summaryon 2019 ED Clinical Summary (Inserted Image. Sachi ble to display) [address] [address] ED Clinical Summary Person Information Name: SUKHDEV SCHWARTZ Stacey/[facility] Age: 34 Years : 1985 Sex: Female Language: [place] PCP: LOLI MATIAS MD Marital Status: Phone: [phone] MRN: Visit Id: Visit Reason: Nausea; Dizziness; [...] 05/26/2020 12:32:48 ADDRESS: [address] [facility] [id number] [facility] DOC NOTES: MEDICAL INFORMATION: Prescriptions Given: [...] Follow up: With: Address: When: Davie Grijalva [facility] [address], [facility] [address], [place] [id number] [facility] (1) 05/27/2020 8:45 AM Comments: Return to ED if symptoms worsen. Drink lots of fluids. Return if you have worsening bleeding, pass out, chest pain, shortnes of breath or any other problems. DIAGNOSIS: 1:Menorrhagia Normal [facility] ED Note-Physicianon 05-26-20 ED Note-Physician Basic [...] % (05/26/20:25:00) Lymph Auto: 22.2 % (05/26/20::) [place] Auto: 6.7 % (05/26/20:25:00) Eos Auto: 2 % (05/26/20::) Basophil Auto: 0.8 % (05/26/20::) Neutro Absolute: 4.8 E9/L (05/26/20:25:00) Lymph Absolute: 1.6 E9/L (05/26/20:25:) [place] Absolute: 0.5 E9/L (05/26/20::) Eos Absolute: 0.1 [...] Ultrasound Performed Signed By: Faraz Carter DO [facility] Comment on above: Result Comment: [...] hospitalization. HOME CARE INSTRUCTIONS ? Only take rbnv-kvl-njllyzh or prescription medicines as directed by your [...] Document Reviewed: 03/25/2014 ExitCare? Patient Information ?2015 YouLicense. This information is not intended to replace advice given to you by your health care provider. Make sure you discuss any questions you have with your health care provider. Normal [facility] ED Patient Summaryon 020 ED Patient Summary (Inserted Image. Sachi ble to display) [place] [id number] Patient Discharge Instructions Person Information Name: SUKHDEV SCHWARTZ Age: 34 Years Arrival Date: 05/26/2020 11:09:13 Discharge Diagnosis: 1:Menorrhagia Primary Care Physician: LOLI MATIAS MD Provider Information Primary Provider: Carline Cain DO Advanced Booster Operator:None The exam and treatment you received in the Emergency Department were for an urgent problem and are not intended as complete care. It is important that you follow up with a doctor, nurse practitioner, or physician?s social media assistant for ongoing care. If your symptoms [...] Follow-up Instructions: With: Address: When: Davie ISSA, [facility] [address], [facility] [place] [id number] [facility] (1) 05/27/2020 8:45 AM Comments: [...] opioids can be used to help relieve vwtbidsg-rk-zxhuyk pain and are often prescribed following a [...] be struggling with addiction, tell your health medical care manager and ask for guidance or call [facility]?S National Helpline at 0-449-585-JXQE. v Source: US Department of Health and Human Services/Center for Disease Control & Prevention [facility] Medications Given: Medication Dose Route Sodium Chloride 0.9% intravenous solution 1000.00 mL Initial Volume 1000.00 mL/hr IV Right Antecubit [place] Medication Information: Medications to Continue with No [...] Comment: Pharmacy Information: Thank you for choosing [facility] Patient Education Materials: Menorrhagia Menorrhagia is [...] hospitalization. HOME CARE INSTRUCTIONS ? Only take pvgc-rfy-xdwdaco or prescription medicines as directed by your [...] Document Reviewed: 03/25/2014 ExitCare? Patient Information ?2015 YouLicense. This information is not intended to replace advice given to you by your health care provider. Make sure you discuss any questions you have with your health care provider. JAMES Bain BRITTANY F , have received the following patient education materials/instructions and have verbalized understanding: Patient Education Materials: Menorrhagia Follow-up Instructions: With: Address: When: Davie Grijalva [address] [place] [address], [place] [address], [place] [address] [facility] (1) 05/27/2020 8:45 AM Comments: Return to ED if symptoms worsen. Drink lots of fluids. Return if you have worsening bleeding, pass out, chest pain, shortnes of breath or any other problems. Patient Signature __ Date Clinician/Nurse Signature Date 05/26/2020 12:32:58 Normal [facility] FFPon 05-26-2020 # of Units 2 [facility] Comment on above: Result Comment: 2019 17:56 [id number] Blood product ready and called to Jaki/OB at 05/26/2020 17:56:49 EDT by AL. Performed By: #### 1 0931669, 4861660, 6438443, 4221450, 3181767, 4143568, 70039089, 9006171 #### [facility] [address] [place] [address] Date Required [id number] [facility] Comment on above: Performed By: #### 1 6476520, 6584592, 1609467, 2659795, 0742006, 3885182, 04115607, 9749140 #### [facility] [address] [place] [address] Order to Transfuse YES [facility] Comment on above: Performed By: #### 1 5722130, 3300902, 2178390, 2040446, 1463635, 1933898, 92156511, 9250313 #### [facility] [address] [place] [address] Hematocriton 05-26-2020 Hematocrit (Bld) [Volume fraction] 27.0 % Low 34.0-46.0 [facility] Comment on above: Performed By: #### 1 3234219, 0413179, 5567937, 2890604, 1527056, 0367572, 20310639, 5270929 #### [facility] [address] [place] [address] Hemoglobinon 05-26-2020 Hemoglobin (Bld) [Mass/Vol] 9.0 g/dL Low 12.0-16.0 [facility] Comment on above: Performed By: #### 1 6663436, 3294558, 0193281, 2134499, 5694739, 2391101, 86348849, 0753142 #### [facility] [address] [place] [address] Hep Func Panelon 05-26-2020 Albumin [Mass/Vol] 1.4 g/dL Normal 1.1-2.2 [facility] Comment on above: Performed By: #### 1 0025598, 9762248, 5718646, 7600456, 6344697, 5202351, 04339921, 8914878 #### [facility] [address] [place] [address] Albumin [Mass/Vol] 4.1 g/dL Normal 3.3-5.0 [facility] Comment on above: Performed By: #### 1 7610318, 0213271, 3456628, 7333691, 2298840, 5491883, 69566402, 7645478 #### [facility] [address] [place] [address] ALP [Catalytic activity/Vol] 47 Int._Unit/L Normal 21-98 [facility] Comment on above: Performed By: #### 1 6852106, 9589942, 9723001, 8774336, 3868707, 2420690, 67653634, 6858811 #### [facility] [address] [place] [address] ALT No additional P-5'-P [Catalytic activity/Vol] 10 Int._Unit/L Normal 6-46 [facility] Comment on above: Performed By: #### 1 8863548, 1203883, 8720797, 0109607, 8981836, 1306953, 27839638, 4449663 #### [facility] [address] [place] [address] AST [Catalytic activity/Vol] 12 Int._Unit/L Normal 5-43 [facility] Comment on above: Performed By: #### 1 3653273, 5510820, 0523790, 8155512, 1814970, 6477610, 00627057, 5940630 #### [facility] [address] [place] [address] Bilirubin [Mass/Vol] 0.8 mg/dL Normal 0.0-1.1 [facility] Comment on above: Performed By: #### 1 4816428, 4060538, 5553164, 3350625, 2784428, 1960964, 36300612, 1785396 #### [facility] [address] [place] [address] Bilirubin.direct [Mass/Vol] 0.7 mg/dL Normal 0.1-0.9 [facility] Comment on above: Performed By: #### 1 0677944, 1146585, 5089128, 6266724, 2392248, 3105835, 75853036, 4990124 #### [facility] [address] [place] [address] Bilirubin.direct [Mass/Vol] 0.1 mg/dL Normal 0.1-0.4 [facility] Comment on above: Performed By: #### 1 1462926, 1947150, 7798402, 2805612, 3610632, 4640047, 22912599, 7283160 #### [facility] [address] [place] [address] Globulin (S) [Mass/Vol] 2.9 g/dL Normal 1.4-4.0 [facility] Comment on above: Performed By: #### 1 6186651, 6397896, 4966633, 6325129, 3785545, 9330326, 47503063, 6620388 #### [facility] [address] [place] [address] Protein [Mass/Vol] 7.0 g/dL Normal 6.0-7.8 [facility] Comment on above: Performed By: #### 1 1465875, 5744425, 2838258, 8818163, 3966252, 4527855, 69915395, 3037195 #### [facility] [address] [place] [address] Main OR PACU I Recordon Main OR PACU I Record PACU Phase I Document Type FT Summary Primary Physician: Davie Grijalva MD Finalized Date/Time: 05/26/20 20:48:43 Pt. Name: SUKHDEV SCHWARTZ/Sex: 1985 Female Med Rec #: [id number] Physician: Davie Grijalva MD Financial #: [id number] Pt. Type: O Room/Bed: N410/01 Admit/Disch: 05/26/20 [...] By: Lauren Reed RN 05/26/20 20:48 Normal [facility] Main OR Preoperative Recordo n 05-26-2020 Main OR Preoperative Record Holding Area Document Type FT Summary Primary Physician: Davie Grijalva MD Finalized Date/Time: 05/26/20 20:04:05 Pt. Name: SUKHDEV SCHWARTZ /Sex: 1985 Female Med Rec #: [id number] Physician: Davie Grijalva MD Financial #: [id number] Pt. Type: O Room/Bed: [facility]/ Admit/Disch: 05/26/20 11:09:13 - Institution: Case Times [...] By: Rena Castelan RN 05/26/20 20:04 Normal [facility] Monitor Recordon 05-26-2020 Monitor Record [id number]#1.00CD:127 Normal [facility] Monitor Record [id number]#[id number]:127 Normal [facility] Monitor Record [id number]#1.00CD:127 Normal [facility] Monitor Record [id number]#[id number]:127 Normal [facility] Monitor Record [id number]#1.00CD:127 Normal [facility] Monitor Record [id number]#[id number]:127 Normal [facility] PT & PTTon 05-26-2020 aPTT Coag (PPP) [Time] 30.1 second(s) Normal 25.1-36.5 [facility] Comment on above: Result Comment: Hepa rin therapeutic range (represented by Anti-Factor Xa activity of 0.2 - 0.4 U/mL) corresponds to PTT of 56.6 - 109.0 sec. Performed By: #### 1 8151805, 8235537, 8485982, 6789576, 4203815, 3842878, 03143427, 3942023 #### [facility] [address] [place] [address] INR Coag (PPP) [Relative time] 1.1 {INR} [facility] Comment on above: Result Comment: INR results are specifically intended to assess patients stabilized on long-term Anticoagulation therapy suggested INR?s ?Less Intensive Anticoagulation? 2.0 ? 3.0 Conventional Range 3.0 ? 4.5 Performed By: #### 1 9253370, 2769634, 5008867, 0378596, 7427946, 0751915, 47690439, 4918400 #### [facility] [address] [place] [address] PT Coag (PPP) [Time] 12.5 second(s) Normal 10.2-12.9 [facility] Comment on above: Performed By: #### 1 1475986, 3774718, 7754928, 0667637, 4579259, 9337993, 55054554, 1983651 #### [facility] [address] [place] [address] Progesteroneon 05-26-2020 Progesterone [Mass/Vol] 0.90 ng/mL [facility] Comment on above: Result Comment: REFE RENCE RANGE Males 0.14-2.06 ng/mL Non- Females Follicular 0.10-0.60 ng/mL Luteal 3.00-17.5 ng/mL Midluteal 3.30-18.6 ng/mL Post-Menopausal 0.10-0.40 ng/mL First Trimester 8.30-66.5 ng/mL Second Trimester 18.9-66.1 ng/mL Third Trimester 35.8-312.4 ng/mL Performed By: #### 1 9178055, 4348255, 3142848, 4575838, 1588331, 7286899, 54536677, 0650956 #### [facility] [address] [place] [address] Progress Note-Nurseon 2019 Progress Note-Nurse Blood obtained per Rhoda Grijalva order and patient taken to surgery. Blood given to Lauren in surgery. Normal [facility] Progress Note-Nurse Dr. Grijalva in at [facility] with pelvic tray and patient and patient begin to bleed heavily and pt heart rate decreased to 50's and patient BP registered in the 60's. pt pale and clammy. Pt in Trendelenburg and fluids open wide. Patient blood pressure up to 100's and HR in the 70's and Dr[facility] G[facility] Normal [facility] Progress Note-Nurse Ultrasound at [facility] to perform beside US Normal [facility] Progress Note-Nurse Patient coloring imp roved at this time and patient VS improved. Dr. Cain aware and awaiting US Normal [facility] Progress Note-Nurse This nurse and Elsie [...] to feel better at this time Normal [facility] Progress Note-Physicianon Progress Note-Physician Patient: SUKHDEV [...] q6hr, # 15 tab(s), Refills(s) 0, Pharmacy: [facility] #16 Documented Medications Documented Multivitamins: 1 tab(s), [...] list: All Problems Pancreatitis / SNOMED CT 968418510 / Confirmed Incomplete miscarriage / SNOMED CT 854680375 / Confirmed missed Ovarian dysfunction / SNOMED CT 38424451 / Confirmed Hypothyroidism / SNOMED CT 56840049 / Confirmed, Active Problems (4) Hypothyroidism Incomplete miscarriage Ovarian dysfunction Pancreatitis Histories Past Medical History: No active or resolved past medical history items have been selected or recorded. Family History: Diabetes mellitus type 2 Mother Thyroid cancer Mother Sister Procedure history: Dilation and curettage ([id number]) on 10/20/2019 at 33 Years. Comments: 10/20/2019 19:10 Kat Rosenbaum RN DILATION & SUCTION CURETTAGE Cholecystectomy ([id number]) on 07/19/2019 at 33 Years. DIAGNOSTIC LAPAROSCOPY [...] 26) Cr 0.7 (MAY 26) . Plan [place] [employer] Anesthesiologists (ASA) physical status classification: Class III, E. Anesthetic Preoperative Plan Anesthesia: General. . Anesthetic plan, risks, benefits, and alternatives discussed with the patient and/or family. Pt. and/or family present and agree to proceed as planned.. Discussed the importance of abstaining from tobacco products, and offered counseling if desired. Normal [facility] Comment on above: Result Comment: Elec tronically Signed By: Jerel Martin JR, DO\.yvonne\Date and Time Signed: 05/26/20 17:16 EDT [facility] 05-26-2020 # of Units 4 [facility] Comment on above: Result Comment: 2019 18:39 [id number] Blood product ready and called to Jaki/OB at 05/26/2020 18:39:16 EDT by AL. Performed By: #### 1 0645723, 7011760, 4616115, 2764210, 4082830, 3794665, 79733924, 5272914 #### [facility] [address] [place] [address] Date Required 05-26-2020 [facility] Comment on above: Performed By: #### 1 8374360, 6740452, 0519950, 5726666, 2273450, 0098898, 69486969, 5695032 #### [facility] [address] [place] [address] Product Type None Required [facility] Comment on above: Performed By: #### 1 1416357, 0936686, 3079480, 8213374, 7506623, 2681397, 00789240, 2647722 #### [facility] [address] [place] [address] # of Units 1 [facility] Comment on above: Result Comment: 2019 16:29 [id number] Blood product ready and called to Lauren at 05/26/2020 16:29:10 EDT by ALElayne Performed By: #### 1 6213037, 5589870, 6514975, 5715725, 6061822, 6338221, 20211246, 4841462 #### [facility] [address] [place] [address] # of Units 2 [facility] Comment on above: Performed By: #### 1 2100565, 0912577, 9261043, 0667827, 3321898, 1968540, 92998539, 0388829 #### [facility] [address] [place], [place] [address] Date Required 05/26/2020 [facility] Comment on above: Performed By: #### 1 0131846, 5476179, 4626419, 7224017, 9255215, 2016092, 11582644, 5104343 #### [facility] [address] [place], [place] [address] Date Required [facility] Comment on above: Performed By: #### 1 0593828, 6557919, 0847518, 4918382, 7156340, 2821721, 00148811, 8284000 #### [facility] [address] [place] [address] Product Type None Required [facility] Comment on above: Performed By: #### 1 5761672, 3177289, 8166152, 9234369, 5440398, 2127649, 48054180, 7403184 #### [facility] [address] [place] [address] # of Units 1 [facility] Comment on above: Result Comment: 2019 15:50 [id number] Blood product ready and called to Topher/ER at 05/26/2020 15:49:51 EDT by AL. Performed By: #### 1 1102322, 4995021, 2742449, 1956801, 7454466, 7414506, 57760189, 3129902 #### [facility] [address] [place] [address] Date Required 05/26/2020 [facility] Comment on above: Performed By: #### 1 0381347, 0781949, 7977411, 1643193, 6854123, 2024725, 77975572, 0857744 #### [facility] [address] [place] [address] Product Type None Required [facility] Comment on above: Performed By: #### 1 7437769, 5540320, 5865663, 4481981, 7160124, 4281295, 79528489, 7704075 #### [facility] [address] [place] [address] US 1st Trimesteron 05-26-2020 US 1st Trimester [...] ? SAB 2 Transabdominal Ultrasound Performed Normal [facility] eGFRon 05-26-2020 GFR/1.73 sq M predicted among blacks MDRD (S/P/Bld) [Vol rate/Area] mL/min/{1.73_m2} Normal >=59 [facility] Comment on above: Order Comment: Order added by Discern Expert. Result Comment: eGFR is race adjusted. AA=. Performed By: #### 1 1030697, 0352327, 6362695, 5041475, 9124972, 3247401, 24384877, 4582530 #### [facility] [address] [place] [address] GFR/1.73 sq M predicted among non-blacks MDRD (S/P/Bld) [Vol rate/Area] mL/min/{1.73_m2} Normal >=59 [facility] Comment on above: Order Comment: Order added by Discern Expert. Result Comment: Food And Drug Research Scientist ivan kidney disease could be indicated at eGFR's of less than 60 mL/min/1.73m2. Kidney failure is indicated at less than 15 mL/min/1.73m2. Performed By: #### 1 5569653, 2894459, 0683866, 7766601, 2861681, 8108018, 68789335, 5435284 #### [facility] [address] [place] [address] Coding Summary.on 01-23-2020 Coding Summary. CODING DATE: 020 FINAL [facility] STATUS: Home (Routine DC) PAYOR: Leela ADMIT [...] Milton Date Saved: 01/23/2020 12:44 pm Normal [facility] Estradiolon 01-23-2020 E2 [Mass/Vol] 1822.0 pg/mL [facility] Comment on above: Result Comment: Adul t Female: Follicular phase 12.5 - 166.0 Ovulation phase 85.8 - 498.0 Luteal phase 43.8 - 211.0 Postmenopausal <6.0 - 54.7 1st trimester 215.0 - >4300.0 Girls (1-10 years) 6.0 - 27.0 Mal ECLIA methodology Performed at: [facility] [id number] PhD Subhash Coronel Performed By: #### 1 0604217, 1798038, 5422601, 1242897, 1122931, 7274198, 28662641, 7401519 #### [facility] [address] [place] [address] BhCG Quanton 01-22-2020 [place] [address] m[IU]/mL High 1-3 F [facility] Comment on above: Result Comment: GEST ATIONAL AGE HCG RANGE (mIU/mL) NON- <1-3 0.2-1 WEEKS 5-50 1-2 WEEKS 50-500 2-3 WEEKS 100-5,000 3-4 WEEKS 500-10,000 4-5 WEEKS 1,000-50,000 5-6 WEEKS 10,000-100,000 6-8 WEEKS 15,000-200,000 8-12 WEEKS 10,000-100,000 Performed By: #### 1 [id number], 6608216, 0598424, 0114453, 7964777, 3984448, 62599009, 8033179 #### [facility] [address] [place] [address] Progesteroneon 01-22-2020 Progesterone [Mass/Vol] 21.50 ng/mL [facility] Comment on above: Result Comment: REFE RENCE RANGE Males 0.14-2.06 ng/mL Non- Females Follicular 0.10-0.60 ng/mL Luteal 3.00-17.5 ng/mL Midluteal 3.30-18.6 ng/mL Post-Menopausal 0.10-0.40 ng/mL First Trimester 8.30-66.5 ng/mL Second Trimester 18.9-66.1 ng/mL Third Trimester 35.8-312.4 ng/mL Performed By: #### 1 [id number], 9874766, 5905110, 2840072, 8804127, 3768718, 65055304, 9677188 #### [facility] [address] [place] [address] Coding Summary.on 01-16-2020 Coding Summary. CODING DATE: 020 FINAL [facility] STATUS: Home (Routine DC) PAYOR: Leela ADMIT [...] CphT Date Saved: 01/16/2020 07:40 am Normal [facility] Estradiolon 01-16-2020 E2 [Mass/Vol] 1275.0 pg/mL [facility] Comment on above: Result Comment: Adul t Female: Follicular phase 12.5 - 166.0 Ovulation phase 85.8 - 498.0 Luteal phase 43.8 - 211.0 Postmenopausal <6.0 - 54.7 1st trimester 215.0 - >4300.0 Girls (1-10 years) 6.0 - 27.0 Mal ECLIA methodology Performed at: [facility] [address] [id number] PhD Subhash Coronel Performed By: #### 1 [id number], 1595645, 1020839, 7190395, 1706529, 0900649, 74077632, 6269562 #### [facility] [address] [place] [address] BhCG Quanton 01-15-2020 HCG.beta subunit Qn 4061 m[IU]/mL High 1-3 Fi [facility] Comment on above: Result Comment: GEST ATIONAL AGE HCG RANGE (mIU/mL) NON- <1-3 0.2-1 WEEKS 5-50 1-2 WEEKS 50-500 2-3 WEEKS 100-5,000 3-4 WEEKS 500-10,000 4-5 WEEKS 1,000-50,000 5-6 WEEKS 10,000-100,000 6-8 WEEKS 15,000-200,000 8-12 WEEKS 10,000-100,000 Performed By: #### 1 2977605, 2101366, 2485628, 4659433, 6575868, 7700092, 39825567, 4046018 #### [facility] [address] [place] [address] Progesteroneon 01-15-2020 Progesterone [Mass/Vol] 32.10 ng/mL [facility] Comment on above: Result Comment: REFE RENCE RANGE Males 0.14-2.06 ng/mL Non- Females Follicular 0.10-0.60 ng/mL Luteal 3.00-17.5 ng/mL Midluteal 3.30-18.6 ng/mL Post-Menopausal 0.10-0.40 ng/mL First Trimester 8.30-66.5 ng/mL Second Trimester 18.9-66.1 ng/mL Third Trimester 35.8-312.4 ng/mL Performed By: #### 1 6589141, 5218960, 8911265, 2472414, 2055796, 4806627, 35368543, 5535960 #### [facility] [address] [place] [address] Coding Summary.on 01-09-2020 Coding Summary. CODING DATE: 020 FINAL [facility] STATUS: Home (Routine DC) PAYOR: Leela ADMIT [...] CphT Date Saved: 01/09/2020 07:10 am Normal [facility] Estradiolon 01-09-2020 E2 [Mass/Vol] 572.2 pg/mL [facility] Comment on above: Result Comment: Adul t Female: Follicular phase 12.5 - 166.0 Ovulation phase 85.8 - 498.0 Luteal phase 43.8 - 211.0 Postmenopausal <6.0 - 54.7 1st trimester 215.0 - >4300.0 Girls (1-10 years) 6.0 - 27.0 Mal ECLIA methodology Performed at: [facility] [address] [id number] PhD Subhash Coronel Performed By: #### 1 0043775, 0861653, 6942342, 1111949, 3338316, 2617964, 42707494, 2437517 #### [facility] [address] [place] [address] [facility]-2020 HCG.beta subunit Qn 898 m[IU]/mL High 1-3 Fis [facility] Comment on above: Result Comment: GEST ATIONAL AGE HCG RANGE (mIU/mL) NON- <1-3 0.2-1 WEEKS 5-50 1-2 WEEKS 50-500 2-3 WEEKS 100-5,000 3-4 WEEKS 500-10,000 4-5 WEEKS 1,000-50,000 5-6 WEEKS 10,000-100,000 6-8 WEEKS 15,000-200,000 8-12 WEEKS 10,000-100,000 Performed By: #### 1 8260502, 4796422, 0793839, 5347126, 0598961, 4617013, 74283409, 4229692 #### [facility] [address] [place] [address] Progesteroneon 01-08-2020 Progesterone [Mass/Vol] 27.90 ng/mL [facility] Comment on above: Result Comment: REFE RENCE RANGE Males 0.14-2.06 ng/mL Non- Females Follicular 0.10-0.60 ng/mL Luteal 3.00-17.5 ng/mL Midluteal 3.30-18.6 ng/mL Post-Menopausal 0.10-0.40 ng/mL First Trimester 8.30-66.5 ng/mL Second Trimester 18.9-66.1 ng/mL Third Trimester 35.8-312.4 ng/mL Performed By: #### 1 4390964, 1239558, 1035376, 0302210, 5801384, 1856715, 01749413, 4771181 #### [facility] [address] [place] [address] Coding Summary.on 01-02-2020 Coding Summary. CODING DATE: 020 FINAL [facility] STATUS: Home (Routine DC) PAYOR: [place] ADMIT DX: REASON FOR VISIT DX: Z32.01 [...] CphT Date Saved: 01/02/2020 10:23 am Normal [facility] Estradiolon 01-02-2020 E2 [Mass/Vol] 1694.0 pg/mL [facility] Comment on above: Result Comment: Adul t Female: Follicular phase 12.5 - 166.0 Ovulation phase 85.8 - 498.0 Luteal phase 43.8 - 211.0 Postmenopausal <6.0 - 54.7 1st trimester 215.0 - >4300.0 Girls (1-10 years) 6.0 - 27.0 Mal ECLIA methodology Performed at: [facility] [id number] PhD Subhash Coronel Performed By: #### 1 7780212, 4727692, 8675013, 4942844, 9143047, 9240055, 86472704, 0275831 #### [facility] [address] [place] [address] [facility] Quanton 01-01-2020 HCG.beta subunit Qn 124 m[IU]/mL High 1-3 Fis [facility] Comment on above: Result Comment: GEST ATIONAL AGE HCG RANGE (mIU/mL) NON- <1-3 0.2-1 WEEKS 5-50 1-2 WEEKS 50-500 2-3 WEEKS 100-5,000 3-4 WEEKS 500-10,000 4-5 WEEKS 1,000-50,000 5-6 WEEKS 10,000-100,000 6-8 WEEKS 15,000-200,000 8-12 WEEKS 10,000-100,000 Performed By: #### 1 9914180, 3964920, 2980320, 6034378, 4505316, 5596783, 60585673, 2579534 #### [facility] [address] [place] [address] Coding Summary.on 01-01-2020 Coding Summary. CODING DATE: 020 FINAL [facility] STATUS: Home (Routine DC) PAYOR: [place] ADMIT DX: REASON FOR VISIT DX: E28.9 [...] CphT Date Saved: 01/01/2020 02:22 pm Normal [facility] Progesteroneon 01-01-2020 Progesterone [Mass/Vol] 23.10 ng/mL [facility] Comment on above: Result Comment: REFE RENCE RANGE Males 0.14-2.06 ng/mL Non- Females Follicular 0.10-0.60 ng/mL Luteal 3.00-17.5 ng/mL Midluteal 3.30-18.6 ng/mL Post-Menopausal 0.10-0.40 ng/mL First Trimester 8.30-66.5 ng/mL Second Trimester 18.9-66.1 ng/mL Third Trimester 35.8-312.4 ng/mL Performed By: #### 1 0168436, 0335999, 1867491, 5101457, 0668593, 1125443, 49489521, 2490777 #### [facility] [address] [place] [address] Coding Summary.on 12-31-2019 Coding Summary. CODING DATE: 020 [facility] STATUS: Home (Routine DC) PAYOR: [place] ADMIT DX: REASON FOR VISIT DX: E28.9 [...] Putnam Date Saved: 12/31/2019 08:09 am Normal [facility] Estradiolon 12-30-2019 E2 [Mass/Vol] 1478.0 pg/mL [facility] Comment on above: Result Comment: Adul t Female: Follicular phase 12.5 - 166.0 Ovulation phase 85.8 - 498.0 Luteal phase 43.8 - 211.0 Postmenopausal <6.0 - 54.7 1st trimester 215.0 - >4300.0 Girls (1-10 years) 6.0 - 27.0 Mal ECLIA methodology Performed at: [facility] [address] [id number] PhD Subhash Coronel Performed By: #### 1 7677864, 0223299, 1171120, 7753459, 7449888, 9769525, 00415752, 3213220 #### Dat [facility] [address] [place] [address] BhCG Quanton 12-29-2019 HCG.beta subunit Qn 34 m[IU]/mL High 1-3 Fish [facility] Comment on above: Result Comment: GEST ATIONAL AGE HCG RANGE (mIU/mL) NON- <1-3 0.2-1 WEEKS 5-50 1-2 WEEKS 50-500 2-3 WEEKS 100-5,000 3-4 WEEKS 500-10,000 4-5 WEEKS 1,000-50,000 5-6 WEEKS 10,000-100,000 6-8 WEEKS 15,000-200,000 8-12 WEEKS 10,000-100,000 Performed By: #### 1 5801241, 8551918, 6558099, 3037808, 3014160, 4263240, 65787086, 4846682 #### [facility] [address] [place] [address] Progesteroneon 12-29-2019 Progesterone [Mass/Vol] 21.80 ng/mL [facility] Comment on above: Result Comment: REFE RENCE RANGE Males 0.14-2.06 ng/mL Non- Females Follicular 0.10-0.60 ng/mL Luteal 3.00-17.5 ng/mL Midluteal 3.30-18.6 ng/mL Post-Menopausal 0.10-0.40 ng/mL First Trimester 8.30-66.5 ng/mL Second Trimester 18.9-66.1 ng/mL Third Trimester 35.8-312.4 ng/mL Performed By: #### 1 0449081, 2548617, 3933974, 3823657, 8906302, 4922342, 28203305, 4036298 #### [facility] [address] [place] [address] BhCG Quanton 12-27-2019 HCG.beta subunit Qn 19 m[IU]/mL High 1-3 Fish er [facility] Comment on above: Result Comment: GEST ATIONAL AGE HCG RANGE (mIU/mL) NON- <1-3 0.2-1 WEEKS 5-50 1-2 WEEKS 50-500 2-3 WEEKS 100-5,000 3-4 WEEKS 500-10,000 4-5 WEEKS 1,000-50,000 5-6 WEEKS 10,000-100,000 6-8 WEEKS 15,000-200,000 8-12 WEEKS 10,000-100,000 Performed By: #### 1 4323353, 6824559, 3031418, 4979336, 2578760, 2191476, 54203083, 0266865 #### [facility] [address] [place] [address] Progesteroneon 12-27-2019 Progesterone [Mass/Vol] 22.60 ng/mL [facility] Comment on above: Result Comment: REFE RENCE RANGE Males 0.14-2.06 ng/mL Non- Females Follicular 0.10-0.60 ng/mL Luteal 3.00-17.5 ng/mL Midluteal 3.30-18.6 ng/mL Post-Menopausal 0.10-0.40 ng/mL First Trimester 8.30-66.5 ng/mL Second Trimester 18.9-66.1 ng/mL Third Trimester 35.8-312.4 ng/mL Performed By: #### 1 5085361, 5156619, 9533045, 9802577, 7115242, 9339682, 11782375, 8830322 #### [facility] [address] [place] [address] Coding Summary.on 12-25-2019 Coding Summary. CODING DATE: 020 FINAL [facility] STATUS: Home (Routine DC) PAYOR: Leela ADMIT [...] CphT Date Saved: 12/22/2019 04:17 pm Normal [facility] Coding Summary. CODING DATE: 020 [facility] STATUS: PAYOR: Leela ADMIT DX: [...] CphT Date Saved: 12/22/2019 04:17 pm Normal [facility] Estradiolon 12-23-2019 E2 [Mass/Vol] 1555.0 pg/mL [facility] Comment on above: Result Comment: Adul t Female: Follicular phase 12.5 - 166.0 Ovulation phase 85.8 - 498.0 Luteal phase 43.8 - 211.0 Postmenopausal <6.0 - 54.7 1st trimester 215.0 - >4300.0 Girls (1-10 years) 6.0 - 27.0 Mal ECLIA methodology Performed at: [facility] [id number] PhD Subhash Coronel Performed By: #### 1 0739234, 5393149, 3853666, 2758849, 3761587, 5042561, 29654061, 6727677 #### [facility] [address] [place] [address] Progesteroneon 12-22-2019 Progesterone [Mass/Vol] 25.40 ng/mL [facility] Comment on above: Result Comment: REFE RENCE RANGE Males 0.14-2.06 ng/mL Non- Females Follicular 0.10-0.60 ng/mL Luteal 3.00-17.5 ng/mL Midluteal 3.30-18.6 ng/mL Post-Menopausal 0.10-0.40 ng/mL First Trimester 8.30-66.5 ng/mL Second Trimester 18.9-66.1 ng/mL Third Trimester 35.8-312.4 ng/mL Performed By: #### 1 4297183, 4843462, 9023481, 6451241, 8275106, 1614867, 66075372, 1672024 #### [facility] [address] [place] [address] Coding Summary.on 12-11-2019 Coding Summary. CODING DATE: 020 FINAL [facility] STATUS: Home (Routine DC) PAYOR: Leela APC [...] CphT Date Saved: 12/11/2019 12:51 pm Normal [facility] Estradiolon 12-09-2019 E2 [Mass/Vol] 1486.0 pg/mL [facility] Comment on above: Result Comment: Adul t Female: Follicular phase 12.5 - 166.0 Ovulation phase 85.8 - 498.0 Luteal phase 43.8 - 211.0 Postmenopausal <6.0 - 54.7 1st trimester 215.0 - >4300.0 Girls (1-10 years) 6.0 - 27.0 Mal ECLIA methodology Performed at: [facility] [id number] PhD Subhash Coronel Performed By: #### 1 3209764, 5923710, 6700617, 2423660, 9915004, 4785980, 16486079, 6069738 #### [facility] [address] [place] [address] LHon 12-09-2019 Lutropin Qn 6.2 m[IU]/mL [facility] Comment on above: Result Comment: Adul t Female: Follicular phase 2.4 - 12.6 Ovulation phase 14.0 - 95.6 Luteal phase 1.0 - 11.4 Postmenopausal 7.7 - 58.5 Performed at: [facility] [id number] PhD Subhash Coronel Performed By: #### 1 3793295, 1956820, 8297620, 4239319, 7766423, 2199188, 02591802, 0129014 #### [facility] [address] [place] [address] Progesteroneon 12-08-2019 Progesterone [Mass/Vol] ng/mL [facility] Comment on above: Result Comment: REFE RENCE RANGE Males 0.14-2.06 ng/mL Non- Females Follicular 0.10-0.60 ng/mL Luteal 3.00-17.5 ng/mL Midluteal 3.30-18.6 ng/mL Post-Menopausal 0.10-0.40 ng/mL First Trimester 8.30-66.5 ng/mL Second Trimester 18.9-66.1 ng/mL Third Trimester 35.8-312.4 ng/mL Performed By: #### 1 4830540, 4457618, 0511205, 6513239, 3324554, 7764077, 83441107, 6291495 #### [facility] [address] [place] [address] US Pelvis Non-OB Completeon 12-08-2019 US Pelvis [...] Transabdominal Ultrasound Performed Transvaginal Ultrasound Performed Normal [facility] US Transvaginal Non-OBon US Transvaginal Non-OB Exam Date/Time: 12/08/2019 07:42 EST Reason for Exam: OVARIAN DYSFUNCTION Report Please refer to prior transabdominal pelvic sonogram report. FINAL REPORT Dictated: 12/08/2019 12:35 pm Citlaly Buchanan MD Signed (Electronic Signature): 12/08/2019 12:35 pm Signed by: Citlaly Buchanan MD Transcribed by: MADISON Technologist: JESSICA Normal [facility] Coding Summary.on 12-05-2019 Coding Summary. CODING DATE: 020 FINAL [facility] STATUS: Home (Routine DC) PAYOR: Leela APC [...] CphT Date Saved: 12/05/2019 10:15 am Normal [facility] Estradiolon 12-05-2019 E2 [Mass/Vol] 1328.0 pg/mL [facility] Comment on above: Result Comment: Adul t Female: Follicular phase 12.5 - 166.0 Ovulation phase 85.8 - 498.0 Luteal phase 43.8 - 211.0 Postmenopausal <6.0 - 54.7 1st trimester 215.0 - >4300.0 Girls (1-10 years) 6.0 - 27.0 Mal ECLIA methodology Performed at: [facility] [address] [id number] PhD Subhash Coronel Performed By: #### 1 3176418, 0290862, 3045063, 1925899, 3495991, 9092176, 90396210, 6873253 #### [facility] [address] [place] [address] LHon 12-05-2019 Lutropin Qn 7.2 m[IU]/mL [facility] Comment on above: Result Comment: Adul t Female: Follicular phase 2.4 - 12.6 Ovulation phase 14.0 - 95.6 Luteal phase 1.0 - 11.4 Postmenopausal 7.7 - 58.5 Performed at: [facility] [address] [id number] PhD Subhash Coronel Performed By: #### 1 2270298, 6654050, 8762485, 8738363, 0285201, 0153216, 11955755, 8835614 #### [facility] [address] [place] [address] Progesteroneon 12-04-2019 Progesterone [Mass/Vol] ng/mL [facility] Comment on above: Result Comment: REFE RENCE RANGE Males 0.14-2.06 ng/mL Non- Females Follicular 0.10-0.60 ng/mL Luteal 3.00-17.5 ng/mL Midluteal 3.30-18.6 ng/mL Post-Menopausal 0.10-0.40 ng/mL First Trimester 8.30-66.5 ng/mL Second Trimester 18.9-66.1 ng/mL Third Trimester 35.8-312.4 ng/mL Performed By: #### 1 3218048, 1675822, 7093797, 4152374, 7577700, 5277435, 99080564, 0289488 #### [facility] [address] [place] [address] US Pelvis Non-OB Completeon 12-04-2019 US Pelvis [...] cul-de-sac. FINAL REPORT Dictated: 12/04/2019 9:11 am oG Kaplan M.D. Signed (Electronic Signature): 12/04/2019 9:11 am Signed by: Go Kaplan M.D. Transcribed by: MADISON Technologist: SYBIL Technical Comments Transabdominal Ultrasound Performed Transvaginal Ultrasound Performed [facility] US Transvaginal Non-OBon US Transvaginal Non-OB Exam Date/Time: 12/04/2019 07:41 EST Reason for Exam: OVARIAN DYSFUNCTION Report PLEASE REFER TO THE ULTRASOUND PELVIS NON-OB COMPLETE REPORT. FINAL REPORT Dictated: 12/04/2019 9:12 am Go Kaplan M.D. Signed (Electronic Signature): 12/04/2019 9:12 am Signed by: Go Kaplan M.D. Transcribed by: MADISON Technologist: SYBIL [facility] Coding Summary.on 12-01-2019 Coding Summary. CODING DATE: 020 FINAL [facility] STATUS: Home (Routine DC) PAYOR: [place] APC DESCRIPTION 5522 Level 2 Imaging without [...] Hill CphT Date Saved: 12/01/2019 12:45 pm [facility] Estradiolon 12-01-2019 E2 [Mass/Vol] 945.3 pg/mL [facility] Comment on above: Result Comment: Adul t Female: Follicular phase 12.5 - 166.0 Ovulation phase 85.8 - 498.0 Luteal phase 43.8 - 211.0 Postmenopausal <6.0 - 54.7 1st trimester 215.0 - >4300.0 Girls (1-10 years) 6.0 - 27.0 Mal ECLIA methodology Performed at: [facility] [id number] [id number] PhD Subhash Coronel Performed By: #### 1 9904551, 3116193, 7144549, 8025255, 1664744, 2949916, 84500281, 9157064 #### [facility] [address] [place] [address] LHon 12-01-2019 Lutropin Qn 6.9 m[IU]/mL [facility] Comment on above: Result Comment: Adul t Female: Follicular phase 2.4 - 12.6 Ovulation phase 14.0 - 95.6 Luteal phase 1.0 - 11.4 Postmenopausal 7.7 - 58.5 Performed at: [facility] [id number] PhD Subhash Coronel Performed By: #### 1 5781450, 2539545, 8928388, 2535601, 1901752, 6697819, 76754567, 7299790 #### [facility] [address] [place] [address] Progesteroneon 11-30-2019 Progesterone [Mass/Vol] 0.10 ng/mL [facility] Comment on above: Result Comment: REFE RENCE RANGE Males 0.14-2.06 ng/mL Non- Females Follicular 0.10-0.60 ng/mL Luteal 3.00-17.5 ng/mL Midluteal 3.30-18.6 ng/mL Post-Menopausal 0.10-0.40 ng/mL First Trimester 8.30-66.5 ng/mL Second Trimester 18.9-66.1 ng/mL Third Trimester 35.8-312.4 ng/mL Performed By: #### 1 5896958, 3725425, 3670860, 4681381, 7309312, 2301010, 08082378, 7950084 #### [facility] [address] [place] [address] US Pelvis Non-OB Completeon 11-30-2019 US Pelvis [...] 11/30/2019 13:21 EST by Go Kaplan M.D. [facility] US Transvaginal Non-OBon US Transvaginal Non-OB Exam Date/Time: 11/30/2019 07:37 EST Reason for Exam: ovarian dysfunction Report PLEASE REFER TO THE ULTRASOUND PELVIS NON-OB COMPLETE REPORT. FINAL REPORT Dictated: 11/30/2019 9:01 am Go Kaplan M.D. Signed (Electronic Signature): 11/30/2019 9:01 am Signed by: Go Kaplan M.D. Transcribed by: MADISON Technologist: JESSICA Normal [facility] Coding Summary.on 11-24-2019 Coding Summary. CODING DATE: 020 [facility] STATUS: Home (Routine DC) PAYOR: [place] APC DESCRIPTION 5522 Level 2 Imaging without [...] CphT Date Saved: 11/24/2019 08:10 am Normal [facility] Estradiolon 11-24-2019 E2 [Mass/Vol] 35.2 pg/mL [facility] Comment on above: Result Comment: [facility] Female: Follicular phase 12.5 - 166.0 Ovulation phase 85.8 - 498.0 Luteal phase 43.8 - 211.0 Postmenopausal <6.0 - 54.7 1st trimester 215.0 - >4300.0 Girls (1-10 years) 6.0 - 27.0 Mal ECLIA methodology Performed at: [address] [id number] PhD Subhash Coronel Performed By: #### 1 7395271, 4750398, 4107208, 0693915, 3072083, 9736915, 84077780, 2352756 #### [facility] [address] [place] [address] FSH and LHon 11-24-2019 Follitropin Qn 8.7 m[IU]/mL [facility] Comment on above: Result Comment: [facility] Female: Follicular phase 3.5 - 12.5 Ovulation phase 4.7 - 21.5 Luteal phase 1.7 - 7.7 Postmenopausal 25.8 - 134.8 Performed at: [address] [id number] PhD Subhash Coronel Performed By: #### 1 9262951, 1269531, 2342497, 9629606, 2163082, 7049394, 53515104, 4666035 #### [facility] [address] [place] [address] Lutropin Qn 9.1 m[IU]/mL [facility] Comment on above: Result Comment: [facility] Female: Follicular phase 2.4 - 12.6 Ovulation phase 14.0 - 95.6 Luteal phase 1.0 - 11.4 Postmenopausal 7.7 - 58.5 Performed By: #### 1 7105310, 4036348, 1763934, 0395274, 7920308, 4721052, 08481213, 4780091 #### [facility] [address] [place] [address] BhCG Quanton 11-23-2019 HCG.beta subunit Qn m[IU]/mL Normal 1[facility] Comment on above: Result Comment: GEST ATIONAL AGE HCG RANGE (mIU/mL) NON- <1-3 0.2-1 WEEKS 5-50 1-2 WEEKS 50-500 2-3 WEEKS 100-5,000 3-4 WEEKS 500-10,000 4-5 WEEKS 1,000-50,000 5-6 WEEKS 10,000-100,000 6-8 WEEKS 15,000-200,000 8-12 WEEKS 10,000-100,000 Performed By: #### 1 7910792, 2792074, 6211514, 6900861, 5011936, 0269175, 08316089, 6641482 #### [facility] [address] [place] [address] Progesteroneon 11-23-2019 Progesterone [Mass/Vol] 0.40 ng/mL [facility] Comment on above: Result Comment: REFE RENCE RANGE Males 0.14-2.06 ng/mL Non- Females Follicular 0.10-0.60 ng/mL Luteal 3.00-17.5 ng/mL Midluteal 3.30-18.6 ng/mL Post-Menopausal 0.10-0.40 ng/mL First Trimester 8.30-66.5 ng/mL Second Trimester 18.9-66.1 ng/mL Third Trimester 35.8-312.4 ng/mL Performed By: #### 1 8855100, 8190663, 2802667, 1393090, 5002186, 9806895, 71672758, 1865060 #### [facility] [address] [place] [address] TSHon 11-23-2019 TSH Qn 0.76 mcIU/mL Normal 0.34-5.60 [facility] Comment on above: Performed By: #### 1 6444675, 0568059, 2952955, 1370138, 4438486, 2305595, 37728606, 1244914 #### [facility] [address] [place] [address] US Pelvis Non-OB Completeon 11-23-2019 US Pelvis [...] Transabdominal Ultrasound Performed Transvaginal Ultrasound Performed Normal [facility] US Transvaginal Non-OBon US Transvaginal Non-OB Exam Date/Time: 11/23/2019 07:40 EST Reason for Exam: OVARIAN DYSFUNCTION Report PLEASE REFER TO THE ULTRASOUND PELVIS NON-OB COMPLETE REPORT. FINAL REPORT Dictated: 11/23/2019 9:26 am Go Kaplan M.D. Signed (Electronic Signature): 11/23/2019 9:26 am Signed by: Go Kaplan M.D. Transcribed by: MADISON Technologist: JESSICA [facility] Coding Summary.on 10-24-2019 Coding Summary. CODING DATE: 020 FINAL [facility] STATUS: Home (Routine DC) PAYOR: Leela APC DESCRIPTION 5414 Level 4 Gynecologic Procedures ADMIT DX: REASON FOR VISIT DX: O02.1 Missed FINAL DX: PRINCIPAL: O02.1 Missed SECONDARY: I10 Essential (primary) hypertension E03.9 Hypothyroidism, unspecified PYMT PROC APC STAT DESCRIPTION DOCTOR NAME DATE 21620 5414 J1 Treatment of missed Davie Grijalva MD 10/20/2019 , completed surgically; first trimester 20152 Anesthesia for Davie Eaton Jr, DO 10/20/2019 incomplete or missed procedures NOTE: The code number assigned matches the documented diagnosis and / or procedure in the patient's chart. However, the narrative phrase printed from the coding software may appear abbreviated, or result in slightly different terminology. Revised Coded By: Althea Ortega Revised Date Saved: 10/24/2019 02:47 pm [facility] Main OR Intraoperative Recor don 10-23-2019 Main OR Intraoperative Record IntraOp Document Type FT Summary Primary Physician: Davie Grijalva MD Finalized Date/Time: 10/23/19 11:48:56 Pt. Name: SUKHDEV SCHWARTZ/Sex: 1985 Female Med Rec #: [id number] Physician: Davie Grijalva MD Financial #: [id number] Pt. Type: A Room/Bed: Admit/Disch: 10/20/19 12:59:16 - 10/20/19 16:25:00 Institution: Case Times FT Entry 1 Patient Times In Room 10/20/19 14:00:00 Out Room 10/20/19 14:34:00 Procedure Times Start 10/20/19 14:19:00 Stop 10/20/19 14:25:00 Anesthesia Times Start 10/20/19 14:00:00 Stop 10/20/19 14:34:00 Last Modified By: Nona Cuellar RN 10/20/19 14:34:06 General Comments: 10/23/2019 Chart opened to review and send charges Hilda Stein CAD DETAILER Case Attendance FT Entry 1 Entry 2 Entry 3 Case Attendee Carlito OVALLES, Geri Grijalva MD, Davie Castelan RN, Rena Role Performed Anesthesiologist Surgeon - Primary Extruding Department Supervisor - Primary Sheep Rancher Time In 10/20/19 14:00:00 10/20/19 14:16:00 10/20/19 14:00:00 Time Out 10/20/19 14:34:00 10/20/19 14:26:00 10/20/19 14:34:00 Procedure DILATATION and SUCTION DILATATION and SUCTION DILATATION and SUCTION CURETTAGE(.) CURETTAGE(.) CURETTAGE(.) Comments DR EATON SUPERVISING Last Modified By: Polo RN, Nona Cuellar RN, Nona Contreras RN 10/20/19 14:35:30 10/20/19 14:35:30 10/20/19 14:35:30 Entry 4 Entry 5 Case Attendee Polo GOODRICH, Nona Crook CAD DETAILER, Mónica Role Performed Extruding Department Supervisor - Primary Scrub - Primary Time In [...] and tissue Entry 1 Skin Integrity Intact, [place], Warm, and Skin Abnormality No Dry Outcomes [...] Cuellar RN, Hord RN, Abby, Costello Crook CAD DETAILER, Mónica CAD DETAILER, Mónica Outcomes Met? Yes Yes Last Modified By: RaleighNona bishop RN, RN, Emily A 10/20/19 14:21:22 [...] RN Patient Status Stable Skin. Condition Intact, [place], Warm, and Dry Airway Maintenance Oxygen in Use? Yes Airway Device Simple Mask Flow Rate 8 L/min Outcomes Met? Yes Last Modified By: Nona Cuellar RN 10/20/19 14:35:23 Post-Care Text: The patient is free from signs and symptoms of injury related to transfer/transport General Comments: report given to broomcorn thresherElayne mayo rn Dressing/Packing FT Pre-Care Text: Administers [...] safely administered during the perioperative period For Daugherty-Guadalupe please see scanned medication reconcilliation form for medications used at the field during the procedure. Urinary Catheter Pre-Care Text: Patient is prepped using sterile technique. Entry 1 Urinary Catheter CATH URETHRAL STRAIGHT Present Upon Arrival No Inserted 16FR [[id number]][F] Insertion Date/Time 10/20/19 14:15:00 Insertion Site Uretheral [...] BLANKET MISTRAL AIR Quantity 1 Aid TORSO [[id number]][F] Fluid/[place] Unit Mistral warming system Setting high/43 Body Site Upper anterior torso Last Modified By: Nona Cuellar RN 10/20/19 13:54:58 Case Comments Finalized By: Juanita Stein CST Document Signatures Signed By: Nona Cuellar RN 10/20/19 14:35 Juanita Stein CST 10/23/19 11:48 Normal [facility] Operative Reporton 0 Operative Report Date [...] Davie Grijalva MD, FACOG gls Dictated: 10/20/2019 #[id number] Typed: 10/23/2019 #[id number] cc: Davie Grijalva MD, FACOG [facility] Comment on above: Result Comment: [...] Davie Grijalva MD, FACOG cr Dictated: 10/20/2019 #[id number] Typed: 10/21/2019 #[id number] cc: Davie Grijalva MD, FACISRAEL [facility] Comment on above: Result Comment: [...] All Problems Ovarian dysfunction / SNOMED CT 99415582 / Confirmed Hypothyroidism / SNOMED CT 10981401 / Confirmed Incomplete miscarriage / SNOMED CT 478605922 / Confirmed missed Pancreatitis / SNOMED CT 206328467 / Confirmed Histories Past Medical History: No active or resolved past medical history items have been selected or recorded. Family History: Diabetes mellitus type 2 Mother Thyroid cancer Mother Sister Procedure history: Cholecystectomy ([id number]) on 07/19/2019 at 33 Years. DIAGNOSTIC LAPAROSCOPY [...] results Radiology results ECG interpretation Condition Plan [place] [employer] Anesthesiologists (ASA) physical status classification: Class II. Anesthetic Preoperative Plan Anesthesia: General. . Anesthetic plan, risks, benefits, and alternatives discussed with the patient and/or family. Risks discussed: nausea, vomiting, headache, sore throat, dental injury, serious complications. Patient verbalized understanding. Communication: face to face with (patient 5 minutes, Pt educated on the importance of smoking cessation.). [facility] Comment on above: Result Comment: Elec tronically Signed By: Davie Eaton Jr, DO\doyle\Date and Time Signed: 10/23/19 07:34 EST Coding Summary.on 10-20-2019 Coding Summary. CODING DATE: 020 FINAL [facility] STATUS: Home (Routine DC) PAYOR: Commercial [...] Hill CphT Date Saved: 10/20/2019 09:01 am [facility] History and Physicalon 10-20 History and Physical [...] Davie Grijalva MD, FACOG gls Dictated: 10/20/2019 #[id number] Typed 10/20/2019 #[id number] cc: Davie Grijalva MD, FACOG Normal [facility] Comment on above: Result Comment: Elec tronically Signed By: Rudi GUSTAFSON, Davie Duong\.br\Date and Time Signed: 10/20/19 10:15 EST Inpatient Patient Summaryon 10-20-2019 Inpatient Patient Summary [place] [id number] [facility] Clinical Discharge Instructions PERSON INFORMATION Name: SUKHDEV SCHWARTZ [facility]#:[id number] PHYSICIANS Admitting Physician: Davie Grijalva MD Attending Physician: Davie Grijalva MD PCP: LOLI MATIAS MD Discharge Diagnosis: Hypothyroidism; Incomplete miscarriage; Status post dilation and curettage Comment: PATIENT EDUCATION INFORMATION Instructions: Post Op Patient Instructions - FT (CUSTOM); BACK WEDGER - Post D&C, Hysteroscopy, LEEP or Essure/Laparoscopy (CUSTOM) Medication Leaflets: Follow up: With: Address: When: Davie Grijalva [address] [place] [address] Business (1) Comments: Call for any problems. MEDICATION LIST New Medications [facility] [address] [place], [place] [id number], [phone] ibuprofen (ibuprofen 600 mg Tab) 1 Tablets [...] Mouth 2 times a day. Comment: Normal [facility] Main OR PACU I Recordon Main OR PACU I Record PACU Phase I Document Type FT Summary Primary Physician: Davie Grijalva MD Finalized Date/Time: 10/20/19 14:55:25 Pt. Name: SEN SCHWARTZTRUMAN Cote/Sex: 1985 Female Med Rec #: [id number] Physician: Davie Grijalva MD Financial #: [id number] Pt. Type: A Room/Bed: 05/18 Admit/Disch: 10/20/19 [...] By: Carin Iverson RN 10/20/19 14:55 Normal [facility] Main OR Preoperative Recordo n 10-20-2019 Main OR Preoperative Record PreOp Document Type FT Summary Primary Physician: Davie Grijalva MD Finalized Date/Time: 10/20/19 14:24:04 Pt. Name: SUKHDEV SCHWARTZ/Sex: 1985 Female Med Rec #: [id number] Physician: Davie Grijalva MD Financial #: [id number] Pt. Type: A Room/Bed: [facility] Admit/Disch: 10/20/19 12:59:16 - Institution: [...] By: Nona Cuellar RN 10/20/19 14:24 Normal [facility] Patient Education - Texton 0 10-20-2019 [...] cramps. PLEASE CALL FOR ANY PROBLEMS Normal [facility] Coding Summary.on 10-19-2019 Coding Summary. CODING DATE: 020 FINAL [facility] STATUS: Home (Routine DC) PAYOR: Commercial [...] CphT Date Saved: 10/19/2019 12:19 pm Normal [facility] RPRon 10-19-2019 Reagin Ab RPR Ql (S) Non-Reactive Normal Non-Reactiv e [facility] Comment on above: Performed By: #### 1 1984819, 4997682, 3178293, 9012669, 9496530, 2027791, 84885490, 9148431 #### [facility] [address] [place] [address] ABO/Rh Retypeon 10-17-2019 ABO/Rh Retype Interp Positive [facility] Comment on above: Performed By: #### 1 9589590, 5634307, 2549359, 8335981, 0745486, 3511972, 98288718, 7505031 #### [facility] [address] [place] [address] BUNon 10-17-2019 Urea nitrogen [Mass/Vol] 12 mg/dL Normal 5-21 [facility] Comment on above: Performed By: #### 1 4486626, 9191723, 6337129, 3451844, 7815161, 3258268, 02077288, 1240329 #### [facility] [address] [place] [address] CBC w/Indiceson 10-17-2019 Erythrocyte distribution width (RBC) [Ratio] 12.7 % Normal 10.9-14.2 [facility] Comment on above: Performed By: #### 1 8984692, 4511168, 2046158, 6667835, 7573475, 0588241, 85425847, 4466887 #### [facility] [address] [place] [address] Hematocrit (Bld) [Volume fraction] 34.6 % Normal 34.0-46.0 [facility] Comment on above: Performed By: #### 1 7438893, 4819519, 0179974, 8175007, 5167863, 0787214, 65319272, 7692487 #### [facility] [address] [place] [address] Hemoglobin (Bld) [Mass/Vol] 11.7 g/dL Low 12.0-16.0 [facility] Comment on above: Performed By: #### 1 5059211, 0329926, 0040657, 2057952, 3269040, 1110017, 50989566, 3390054 #### [facility] [address] [place], [place] [address] MCH (RBC) [Entitic mass] 30.7 pg Normal 27.0-34.0 [facility] Comment on above: Performed By: #### 1 3361709, 9856484, 9620580, 6710247, 1101598, 1489743, 46617747, 4613761 #### [facility] [address] [place] [address] MCHC (RBC) [Mass/Vol] 33.8 g/dL Normal 31.4-36.0 [facility] Comment on above: Performed By: #### 1 3950830, 6745900, 2512456, 6504883, 9332429, 2437096, 30628639, 3255257 #### [facility] [address] [place] [address] MCV (RBC) [Entitic vol] 90.8 fL Normal 80.0-100.0 [facility] Comment on above: Performed By: #### 1 9269956, 5129482, 7443605, 4212842, 1612122, 2206329, 16024503, 0467266 #### [facility] [address] [place] [address] Platelet mean volume (Bld) [Entitic vol] 7.5 fL Normal 6.4-10.8 [facility] Comment on above: Performed By: #### 1 1677108, 2273068, 7993922, 2856111, 5080112, 6817893, 31785543, 8396402 #### [facility] [address] [place] [address] Platelets (Bld) [#/Vol] 319.0 E9/L Normal 150.0-500.0 [facility] Comment on above: Performed By: #### 1 4528892, 2632076, 7449285, 8866498, 0920146, 5668373, 61868427, 0456400 #### [facility] [address] [place] 4[address]257 RBC (Bld) [#/Vol] 3.8 E12/L Low 4.3-5.9 [facility] Comment on above: Performed By: #### 1 5314861, 3837944, 2832283, 6057087, 7579287, 1214157, 20112814, 5444533 #### [facility] [address] [place] [address] WBC corrected for nucl RBC Auto (Bld) [#/Vol] 6.1 E9/L Normal 4.0-11.0 [facility] Comment on above: Performed By: #### 1 5068876, 8207122, 3481930, 6058532, 0695656, 5278558, 17686105, 3050624 #### [facility] [address] [place] [address] Creatinineon 10-17-2019 Creatinine [Mass/Vol] 0.6 mg/dL Normal 0.5-1.3 [facility] Comment on above: Performed By: #### 1 2112000, 8147344, 7370235, 5597871, 7081609, 0224962, 33647261, 5906332 #### [facility] [address] [place] [address] Lyteson 10-17-2019 Anion gap [Moles/Vol] 12 mmol/L Normal 6-16 [facility] Comment on above: Performed By: #### 1 9064533, 2849914, 7355687, 5971037, 2888971, 2982358, 08250186, 9795317 #### [facility] [address] [place] [address] Chloride [Moles/Vol] 109 mmol/L Normal 101-111 [facility] Comment on above: Performed By: #### 1 4769274, 8635030, 8195220, 2647451, 8255843, 6869886, 85349232, 3661185 #### [facility] [address] [place] [address] CO2 [Moles/Vol] 26 mmol/L Normal 21-31 [facility] Comment on above: Performed By: #### 1 5701053, 5655577, 9234787, 3051177, 3583089, 2761092, 74463520, 6346718 #### [facility] [address] [place] [address] Potassium [Moles/Vol] 4.3 mmol/L Normal 3.5-5.3 [facility] Comment on above: Performed By: #### 1 7323156, 5847663, 7095043, 2165822, 3771916, 2802785, 99044905, 4179492 #### [facility] [address] [place] [address] Sodium [Moles/Vol] 143 mmol/L Normal 135-145 [facility] Comment on above: Performed By: #### 1 0145952, 7151277, 1620221, 4085840, 9596822, 8999833, 77479543, 6106370 #### [facility] [address] [place] [address] PT & PTTon 10-17-2019 aPTT Coag (PPP) [Time] 29.9 second(s) Normal 25.1-36.5 [facility] Comment on above: Result Comment: Hepa rin therapeutic range (represented by Anti-Factor Xa activity of 0.2 - 0.4 U/mL) corresponds to PTT of 56.6 - 109.0 sec. Performed By: #### 1 1967128, 3695850, 3042997, 9919626, 2570292, 4607810, 81406865, 1887870 #### [facility] [address] [place] [address] INR Coag (PPP) [Relative time] 1.0 {INR} [facility] Comment on above: Result Comment: INR results are specifically intended to assess patients stabilized on long-term Anticoagulation therapy suggested INR?s ?Less Intensive Anticoagulation? 2.0 ? 3.0 Conventional Range 3.0 ? 4.5 Performed By: #### 1 5362306, 9167340, 0253303, 6886499, 2894078, 7277997, 42832728, 0602001 #### [facility] [address] [place] [address] PT Coag (PPP) [Time] 11.0 second(s) Normal 10.2-12.9 [facility] Comment on above: Performed By: #### 1 7528561, 7304370, 6508483, 7397586, 3769792, 8867769, 78916344, 1629585 #### [facility] [address] [place] [address] eGFRon 10-17-2019 GFR/1.73 sq M predicted among blacks MDRD (S/P/Bld) [Vol rate/Area] mL/min/{1.73_m2} Normal >=59 [facility] Comment on above: Order Comment: Order added by Discern Expert. Result Comment: eGFR is race adjusted. AA=. Performed By: #### 1 6701152, 3598451, 6782663, 1006759, 9133961, 1926488, 07286859, 7978169 #### [facility] [address] [place] [address] GFR/1.73 sq M predicted among non-blacks MDRD (S/P/Bld) [Vol rate/Area] mL/min/{1.73_m2} Normal >=59 [facility] Comment on above: Order Comment: Order added by Discern Expert. Result Comment: Food And Drug Research Scientist ivan kidney disease could be indicated at eGFR's of less than 60 mL/min/1.73m2. Kidney failure is indicated at less than 15 mL/min/1.73m2. Performed By: #### 1 2469805, 9279323, 0373292, 6715339, 3764211, 3049445, 73310338, 7569848 #### [facility] [address] [place] [address] Coding Summary.on 10-12-2019 Coding Summary. CODING DATE: 019 FINAL [facility] STATUS: Home (Routine DC) PAYOR: Commercial [...] CphT Date Saved: 10/12/2019 12:46 pm Normal [facility] BhCG Quanton 10-09-2019 HCG.beta subunit Qn 1862 m[IU]/mL High 1-3 [facility] Comment on above: Result Comment: GEST ATIONAL AGE HCG RANGE (mIU/mL) NON- <1-3 0.2-1 WEEKS 5-50 1-2 WEEKS 50-500 2-3 WEEKS 100-5,000 3-4 WEEKS 500-10,000 4-5 WEEKS 1,000-50,000 5-6 WEEKS 10,000-100,000 6-8 WEEKS 15,000-200,000 8-12 WEEKS 10,000-100,000 Performed By: #### 1 3310230, 8285380, 1279079, 5830975, 2473877, 9889296, 75625461, 9757783 #### [facility] [address] [place] [address] Coding Summary.on 10-06-2019 Coding Summary. CODING DATE: 019 FINAL [facility] STATUS: Home (Routine DC) PAYOR: [...] CphT Date Saved: 10/06/2019 12:45 pm Normal [facility] US 1st Trimesteron 10-06-2019 US 1st [...] Size < Dates Uterus Position Anteverted Normal [facility] US Transvaginalon 10-06-2019 US Transvaginal Exam Date/Time: 10/05/2019 13:36 EST Reason for Exam: possible ectopic Report PLEASE REFER TO THE ULTRASOUND FIRST TRIMESTER REPORT. FINAL REPORT Dictated: 10/06/2019 10:35 am Go Kaplan M.D. Signed (Electronic Signature): 10/06/2019 10:35 am Signed by: Go Kaplan M.D. Transcribed by: MADISON Technologist: COREY Normal [facility] BhCG Quanton 10-05-2019 HCG.beta subunit Qn 1726 m[IU]/mL High 1-3 [facility] Comment on above: Result Comment: GEST ATIONAL AGE HCG RANGE (mIU/mL) NON- <1-3 0.2-1 WEEKS 5-50 1-2 WEEKS 50-500 2-3 WEEKS 100-5,000 3-4 WEEKS 500-10,000 4-5 WEEKS 1,000-50,000 5-6 WEEKS 10,000-100,000 6-8 WEEKS 15,000-200,000 8-12 WEEKS 10,000-100,000 Performed By: #### 2 622346 ####[facility] [address] [place] [address] Coding Summary.on 10-04-2019 Coding Summary. CODING DATE: 019 [facility] STATUS: Home (Routine DC) PAYOR: [...] CphT Date Saved: 10/04/2019 02:19 pm Normal [facility] Estradiolon 10-04-2019 E2 [Mass/Vol] 189.4 pg/mL [facility] Comment on above: Result Comment: Adul t Female: Follicular phase 12.5 - 166.0 Ovulation phase 85.8 - 498.0 Luteal phase 43.8 - 211.0 Postmenopausal <6.0 - 54.7 1st trimester 215.0 - >4300.0 Girls (1-10 years) 6.0 - 27.0 Mal ECLIA methodology Performed at: [facility] [id number] PhD Subhash Coronel Performed By: #### 2 252338, 9184851, 10759113, 9268384 ####[facility] [address] [place] [address] FSH and LHon 10-04-2019 Follitropin Qn 4.6 m[IU]/mL [facility] Comment on above: Result Comment: [facility] Female: Follicular phase 3.5 - 12.5 Ovulation phase 4.7 - 21.5 Luteal phase 1.7 - 7.7 Postmenopausal 25.8 - 134.8 Performed at: [facility] [id number] PhD Subhash Coronel Performed By: #### 2 627596, 0423093, 53977051, 6018258 ####[facility] [address] [place] [address] Lutropin Qn 10.0 m[IU]/mL [facility] Comment on above: Result Comment: [facility] Female: Follicular phase 2.4 - 12.6 Ovulation phase 14.0 - 95.6 Luteal phase 1.0 - 11.4 Postmenopausal 7.7 - 58.5 Performed By: #### 2 155350, 1728675, 23014370, 3771135 ####[facility] [address] [place] [address] BhCG Quanton 10-03-2019 HCG.beta subunit Qn 1625 m[IU]/mL High 1-3 [facility] Comment on above: Result Comment: GEST ATIONAL AGE HCG RANGE (mIU/mL) NON- <1-3 0.2-1 WEEKS 5-50 1-2 WEEKS 50-500 2-3 WEEKS 100-5,000 3-4 WEEKS 500-10,000 4-5 WEEKS 1,000-50,000 5-6 WEEKS 10,000-100,000 6-8 WEEKS 15,000-200,000 8-12 WEEKS 10,000-100,000 Performed By: #### 2 730732 ####[facility] [address] [place] [address] Progesteroneon 10-03-2019 Progesterone [Mass/Vol] 7.80 ng/mL [facility] Comment on above: Result Comment: REFE RENCE RANGE Males 0.14-2.06 ng/mL Non- Females Follicular 0.10-0.60 ng/mL Luteal 3.00-17.5 ng/mL Midluteal 3.30-18.6 ng/mL Post-Menopausal 0.10-0.40 ng/mL First Trimester 8.30-66.5 ng/mL Second Trimester 18.9-66.1 ng/mL Third Trimester 35.8-312.4 ng/mL Performed By: #### 2 446035, 4827646, 53082461, 9986825 ####[facility] [address] [place] [address] TSHon 10-03-2019 TSH Qn 0.84 mcIU/mL Normal 0.34-5.60 [facility] Comment on above: Performed By: #### 2 030095, 9020738, 93572166, 2054420 ####[facility] [address] [place] [address] Coding Summary.on 09-28-2019 Coding Summary. CODING DATE: 019 [facility] STATUS: Home (Routine DC) PAYOR: [...] Chau Date Saved: 09/28/2019 01:08 pm Normal [facility] BhCG Quanton 09-27-2019 HCG.beta subunit Qn 579 m[IU]/mL High 1-3 [facility] Comment on above: Result Comment: GEST ATIONAL AGE HCG RANGE (mIU/mL) NON- <1-3 0.2-1 WEEKS 5-50 1-2 WEEKS 50-500 2-3 WEEKS 100-5,000 3-4 WEEKS 500-10,000 4-5 WEEKS 1,000-50,000 5-6 WEEKS 10,000-100,000 6-8 WEEKS 15,000-200,000 8-12 WEEKS 10,000-100,000 Performed By: #### 2 542552 ####[facility] [address] [place] [address] External Lab Vitamin B6on Vitamin B6 4.4 [facility] Vitamin Aon 09-20-2019 Vitamin A 75.2 [facility] Vitamin B1on 09-20-2019 Thiamine (Vitamin B1) 116.7 [facility] Zincon 09-20-2019 Zinc 97 [facility] Coding Summary.on 09-18-2019 Coding Summary. CODING DATE: 019 [facility] STATUS: Home (Routine DC) PAYOR: [...] CphT Date Saved: 09/18/2019 01:21 pm Normal [facility] EXT LAB FERRITINon 9 Ferritin [Mass/Vol] 55 ng/mL [facility]alth External Lab Ironon 09-18-20 19 Iron [Mass/Vol] 89 ug/dL mcg/mL [facility] h External Lab Vitamin D, 25-O Hon 09-18-2019 Vitamin D, 25-OH 43.9 [facility] External Vitamin B12 and Fol ateon 09-18-2019 Cobalamin (Vitamin B12) [Mass/Vol] 291 pg/mL [facility] Folate 22.3 ng/mL Off scale high [facility] Interpretation and review of laboratory results Abnormal [facility] Vit Aon 09-18-2019 Retinol [Mass/Vol] 75.2 microgram/dL High 18.9-57.3 [facility] Comment on above: Result Comment: Refe [...] the Food and Drug Administration. Performed at: [address] [id number] MD Keegan Limon Performed By: #### 2 948205, 9720322, 7275433, 9040905, 521100057, 40040637, 71641400, 34504518, 73582200 ####[facility] [address] [place] [address] Vit B1on 09-18-2019 Thiamine (Bld) [Moles/Vol] 116.7 nmol/L 66.5-200.0 [facility] Comment on above: Result Comment: This test was developed and its performance characteristics determined by [employer]. It has not been cleared or approved by the Food and Drug Administration. Performed at: [address] [id number] MD Keegan Limon Performed By: #### 2 557338, 2028938, 2516146, 3324898, 342820722, 37124644, 27086626, 96866485, 28926851 ####[facility] [address] [place] [address] Vitamin B6on 09-18-2019 Pyridoxine [Mass/Vol] 4.4 microgram/L 2.0-32.8 [facility] Comment on above: Result Comment: This test was developed and its performance characteristics determined by [facility]. It has not been cleared or approved by the Food and Drug Administration. Performed at: [address] [id number] MD Keegan Limon Performed By: #### 2 529857, 2750128, 7188837, 5134011, 574797002, 92765500, 34198767, 39925171, 84639511 ####[facility] [address] [place] [address] Zinc Lvlon 09-18-2019 Zinc [Mass/Vol] 97 microgram/dL 56-134 [facility] Comment on above: Result Comment: This test was developed and its performance characteristics determined by [employer]. It has not been cleared or approved by the Food and Drug Administration. Detection Limit = 5 Performed at: [facility] [id number] MD Keegan Limon Performed By: #### 2 331664, 6485393, 0710484, 9142327, 275399800, 10546925, 43775264, 08470291, 55960304 ####[facility] [address] [place] [address] Coding Summary.on 09-15-2019 Coding Summary. CODING DATE: 019 FINAL [facility] STATUS: Home (Routine DC) PAYOR: Commercial [...] CphT Date Saved: 09/15/2019 02:01 pm Normal [facility] Estradiolon 09-14-2019 E2 [Mass/Vol] 929.6 pg/mL [facility] Comment on above: Result Comment: Adul t Female: Follicular phase 12.5 - 166.0 Ovulation phase 85.8 - 498.0 Luteal phase 43.8 - 211.0 Postmenopausal <6.0 - 54.7 1st trimester 215.0 - >4300.0 Girls (1-10 years) 6.0 - 27.0 Mal ECLIA methodology Performed at: [facility] [id number] PhD Subhash Coronel Performed By: #### 2 721633, 5153445 ####[facility] [address] [place] [address] BhCG Quanton 09-13-2019 HCG.beta subunit Qn 132 m[IU]/mL High 1-3 [facility] Comment on above: Result Comment: GEST ATIONAL AGE HCG RANGE (mIU/mL) NON- <1-3 0.2-1 WEEKS 5-50 1-2 WEEKS 50-500 2-3 WEEKS 100-5,000 3-4 WEEKS 500-10,000 4-5 WEEKS 1,000-50,000 5-6 WEEKS 10,000-100,000 6-8 WEEKS 15,000-200,000 8-12 WEEKS 10,000-100,000 Performed By: #### 1 5020759, 6552172, 3756052, 6771231, 9972660, 3175260, 17820921, 0431391 #### [facility] [address] [place] [address] Ferritinon 09-13-2019 Ferritin [Mass/Vol] 55 ng/mL Normal 11-307 [facility] Comment on above: Result Comment: NORM ALS MEN <30 YRS 16-132 ng/mL MEN >30 YRS 8-338 ng/mL WOMEN (PREMEN) 6-104 ng/mL WOMEN (POSTMEN) 12-210 ng/mL Performed By: #### 1 8421297, 9063877, 4564234, 0656941, 3279544, 1490126, 95335364, 9083208 #### [facility] [address] [place] [address] Folateon 09-13-2019 Folate [Mass/Vol] ng/mL Normal >=6.7 [facility] Comment on above: Performed By: #### 1 2749226, 4365188, 1773679, 5663562, 5579230, 6550090, 50678243, 8685319 #### [facility] [address] [place] [address] Ironon 09-13-2019 Iron [Mass/Vol] 89 microgram/dL Normal 35-153 [facility] Comment on above: Performed By: #### 1 0535304, 8778300, 9003223, 8512404, 4109459, 3469342, 68887624, 4693181 #### [facility] [address] [place] [address] Progesteroneon 09-13-2019 Progesterone [Mass/Vol] 29.00 ng/mL [facility] Comment on above: Result Comment: REFE RENCE RANGE Males 0.14-2.06 ng/mL Non- Females Follicular 0.10-0.60 ng/mL Luteal 3.00-17.5 ng/mL Midluteal 3.30-18.6 ng/mL Post-Menopausal 0.10-0.40 ng/mL First Trimester 8.30-66.5 ng/mL Second Trimester 18.9-66.1 ng/mL Third Trimester 35.8-312.4 ng/mL Performed By: #### 2 690784, 7711991 ####[facility] [address] [place] [address] Vit B12on 09-13-2019 Cobalamin (Vitamin B12) [Mass/Vol] 291 pg/mL Normal 50-1500 [facility] Comment on above: Performed By: #### 2 279127, 8174249, 8936674, 9245472, 694755849, 73563474, 48266702, 96354227, 23215201 ####[facility] [address] [place] [address] Vitamin D 25 Hydroxyon 09-13 Calcidiol [Mass/Vol] 43.9 ng/mL Normal 30.0-100.0 [facility] Comment on above: Result Comment: Vit hutchinson D deficiency has been defined as a level of serum 25-OH vitamin D less than 20 ng/mL (1,2) by the [place] of Medicine and an Endocrine Society practice guideline. The Endocrine Society further defined vitamin D insufficiency as a level between 21 and 29 ng/mL (2). 1. IOM ([place] of [employer]). 2010. Dietary reference intakes for calcium and D. [place]: The National Academies Press. 2. Isaías MF, Renay [place], Foreign HUERTA, et al. Evaluation, treatment, and prevention of vitamin D deficiency: an Endocrine Society clinical practice guideline. JCEM. 2010; 96 (7):1911-30. Performed By: #### 2 216442, 6351203, 9664514, 1234754, 377422363, 38686218, 57062547, 77713285, 11352395 ####[facility] [address] [place] [address] Coding Summary.on 09-12-2019 Coding Summary. CODING DATE: 019 [facility] STATUS: Home (Routine DC) PAYOR: [...] CphT Date Saved: 09/12/2019 07:36 am Normal [facility] Estradiolon 09-12-2019 E2 [Mass/Vol] 1006.0 pg/mL [facility] Comment on above: Result Comment: Adul t Female: Follicular phase 12.5 - 166.0 Ovulation phase 85.8 - 498.0 Luteal phase 43.8 - 211.0 Postmenopausal <6.0 - 54.7 1st trimester 215.0 - >4300.0 Girls (1-10 years) 6.0 - 27.0 Mal ECLIA methodology Performed at: [facility] [address] [id number] PhD Subhash Coronel Performed By: #### 1 6843700, 2803958, 2356693, 1747579, 7775702, 7526139, 76773631, 1616692 #### [facility] [address] [place] [address] [facility] Quanton 09-11-2019 HCG.beta subunit Qn 121 m[IU]/mL High 1-3 [facility] Comment on above: Result Comment: GEST ATIONAL AGE HCG RANGE (mIU/mL) NON- <1-3 0.2-1 WEEKS 5-50 1-2 WEEKS 50-500 2-3 WEEKS 100-5,000 3-4 WEEKS 500-10,000 4-5 WEEKS 1,000-50,000 5-6 WEEKS 10,000-100,000 6-8 WEEKS 15,000-200,000 8-12 WEEKS 10,000-100,000 Performed By: #### 1 6849722, 8522468, 5689542, 2969043, 1808804, 6793470, 31539338, 0593117 #### [facility] [address] [place] [address] Progesteroneon 09-11-2019 Progesterone [Mass/Vol] 26.60 ng/mL [facility] Comment on above: Result Comment: REFE RENCE RANGE Males 0.14-2.06 ng/mL Non- Females Follicular 0.10-0.60 ng/mL Luteal 3.00-17.5 ng/mL Midluteal 3.30-18.6 ng/mL Post-Menopausal 0.10-0.40 ng/mL First Trimester 8.30-66.5 ng/mL Second Trimester 18.9-66.1 ng/mL Third Trimester 35.8-312.4 ng/mL Performed By: #### 1 1638462, 2958519, 4084745, 6633116, 2732478, 7231276, 93330099, 7426766 #### [facility] [address] [place] [address] TSHon 09-11-2019 TSH Qn 0.88 mcIU/mL Normal 0.34-5.60 [facility] Comment on above: Performed By: #### 1 8862840, 9804248, 9633346, 0169555, 0233096, 0682719, 91604837, 6183437 #### [facility] [address] [place] [address] Coding Summary.on 09-10-2019 Coding Summary. CODING DATE: 019 FINAL [facility] STATUS: Home (Routine DC) PAYOR: Commercial [...] Putnam Date Saved: 09/10/2019 02:11 pm Normal [facility] Lipase Levelon 09-08-2019 Lipase [Catalytic activity/Vol] U/L High 13-58 [facility] Comment on above: Result Comment: conf irmed by dilution Performed By: #### 1 9372941, 7066402, 7752933, 8220553, 9556979, 0324773, 04785032, 6044572 #### [facility] [address] [place] [address] Bh[facility] Quanton 09-07-2019 HCG.beta subunit Qn 90 m[IU]/mL High 1-3 [facility] Comment on above: Result Comment: GEST ATIONAL AGE HCG RANGE (mIU/mL) NON- <1-3 0.2-1 WEEKS 5-50 1-2 WEEKS 50-500 2-3 WEEKS 100-5,000 3-4 WEEKS 500-10,000 4-5 WEEKS 1,000-50,000 5-6 WEEKS 10,000-100,000 6-8 WEEKS 15,000-200,000 8-12 WEEKS 10,000-100,000 Performed By: #### 1 2456319, 6240053, 5000340, 5364326, 2909528, 5746053, 43889315, 8546550 #### [facility] [address] [place] [address] Progesteroneon 09-07-2019 Progesterone [Mass/Vol] 23.40 ng/mL [facility] Comment on above: Result Comment: REFE RENCE RANGE Males 0.14-2.06 ng/mL Non- Females Follicular 0.10-0.60 ng/mL Luteal 3.00-17.5 ng/mL Midluteal 3.30-18.6 ng/mL Post-Menopausal 0.10-0.40 ng/mL First Trimester 8.30-66.5 ng/mL Second Trimester 18.9-66.1 ng/mL Third Trimester 35.8-312.4 ng/mL Performed By: #### 1 3573274, 6901682, 9320705, 6286376, 8333518, 8083380, 53654505, 4109307 #### [facility] [address] [place] [address] Coding Summary.on 09-05-2019 Coding Summary. CODING DATE: 019 [facility] STATUS: Home (Routine DC) PAYOR: [...] CphT Date Saved: 09/05/2019 01:07 pm Normal [facility] Estradiolon 09-05-2019 E2 [Mass/Vol] 799.5 pg/mL [facility] Comment on above: Result Comment: Adul t Female: Follicular phase 12.5 - 166.0 Ovulation phase 85.8 - 498.0 Luteal phase 43.8 - 211.0 Postmenopausal <6.0 - 54.7 1st trimester 215.0 - >4300.0 Girls (1-10 years) 6.0 - 27.0 Mal ECLIA methodology Performed at: [facility] [id number] PhD Subhash Coronel Performed By: #### 1 1778150, 6359548, 7431093, 8903585, 0182210, 3030119, 01963971, 5203317 #### [facility] [address] [place] [address] Progesteroneon 09-04-2019 Progesterone [Mass/Vol] 39.30 ng/mL [facility] Comment on above: Result Comment: REFE RENCE RANGE Males 0.14-2.06 ng/mL Non- Females Follicular 0.10-0.60 ng/mL Luteal 3.00-17.5 ng/mL Midluteal 3.30-18.6 ng/mL Post-Menopausal 0.10-0.40 ng/mL First Trimester 8.30-66.5 ng/mL Second Trimester 18.9-66.1 ng/mL Third Trimester 35.8-312.4 ng/mL Performed By: #### 1 7787506, 5792001, 0257082, 0134785, 1282452, 4122221, 58823173, 6923921 #### [facility] [address] [place] [address] TSHon 09-04-2019 TSH Qn 0.83 mcIU/mL Normal 0.34-5.60 [facility] Comment on above: Performed By: #### 1 6793511, 5170228, 2562682, 1877519, 0232024, 7246331, 75925557, 2912944 #### [facility] [address] [place] [address] Coding Summary.on 08-23-2019 Coding Summary. CODING DATE: 019 FINAL [facility] STATUS: Home (Routine DC) PAYOR: Commercial [...] CphT Date Saved: 08/23/2019 01:15 pm Normal [facility] Estradiolon 08-23-2019 E2 [Mass/Vol] 903.5 pg/mL [facility] Comment on above: Result Comment: Adul t Female: Follicular phase 12.5 - 166.0 Ovulation phase 85.8 - 498.0 Luteal phase 43.8 - 211.0 Postmenopausal <6.0 - 54.7 1st trimester 215.0 - >4300.0 Girls (1-10 years) 6.0 - 27.0 Mal ECLIA methodology Performed at: [facility] [id number] PhD Subhash Coronel Performed By: #### 1 4815812, 4278904, 4706078, 4489183, 9721324, 7419090, 52881367, 4138982 #### [facility] [address] [place] [address] LHon 08-23-2019 Lutropin Qn 7.7 m[IU]/mL [facility] Comment on above: Result Comment: Adul t Female: Follicular phase 2.4 - 12.6 Ovulation phase 14.0 - 95.6 Luteal phase 1.0 - 11.4 Postmenopausal 7.7 - 58.5 Performed at: [address] [id number] PhD Subhash Coronel Performed By: #### 1 9900114, 0798484, 4489492, 9314550, 7688367, 6146431, 05514356, 3047901 #### [facility] [address] [place] [address] Progesteroneon 08-22-2019 Progesterone [Mass/Vol] ng/mL [facility] Comment on above: Result Comment: REFE RENCE RANGE Males 0.14-2.06 ng/mL Non- Females Follicular 0.10-0.60 ng/mL Luteal 3.00-17.5 ng/mL Midluteal 3.30-18.6 ng/mL Post-Menopausal 0.10-0.40 ng/mL First Trimester 8.30-66.5 ng/mL Second Trimester 18.9-66.1 ng/mL Third Trimester 35.8-312.4 ng/mL Performed By: #### 1 3557280, 5999110, 0519907, 2170671, 2818915, 3268316, 31455184, 9889166 #### [facility] [address] [place] [address] Coding Summary.on 08-16-2019 Coding Summary. CODING DATE: 019 FINAL [facility] STATUS: Home (Routine DC) PAYOR: Commercial [...] SantiagoTeri Date Saved: 08/16/2019 02:00 pm Normal [facility] Estradiolon 08-16-2019 E2 [Mass/Vol] 52.3 pg/mL [facility] Comment on above: Result Comment: Adul t Female: Follicular phase 12.5 - 166.0 Ovulation phase 85.8 - 498.0 Luteal phase 43.8 - 211.0 Postmenopausal <6.0 - 54.7 1st trimester 215.0 - >4300.0 Girls (1-10 years) 6.0 - 27.0 Mal ECLIA methodology Performed at: [address] [id number] PhD Subhash Coronel Performed By: #### 1 3898291, 7478294, 9340230, 0020928, 0203067, 9171434, 87115319, 1095096 #### [facility] [address] [place] [address] FSH and LHon 08-16-2019 Follitropin Qn 7.9 m[IU]/mL [facility] Comment on above: Result Comment: [facility] Female: Follicular phase 3.5 - 12.5 Ovulation phase 4.7 - 21.5 Luteal phase 1.7 - 7.7 Postmenopausal 25.8 - 134.8 Performed at: [address] [id number] PhD Subhash Coronel Performed By: #### 1 1559471, 0635917, 0063209, 0077231, 7929312, 0236141, 40069419, 9209012 #### [facility] [address] [place] [address] Lutropin Qn 9.8 m[IU]/mL [facility] Comment on above: Result Comment: [facility] Female: Follicular phase 2.4 - 12.6 Ovulation phase 14.0 - 95.6 Luteal phase 1.0 - 11.4 Postmenopausal 7.7 - 58.5 Performed By: #### 1 0186182, 4270051, 1081434, 9387899, 8846858, 3774874, 08694620, 1532186 #### [facility] [address] [place] [address] BhCG Quanton 08-15-2019 HCG.beta subunit Qn m[IU]/mL Normal 1-3 [facility] Comment on above: Result Comment: GEST ATIONAL AGE HCG RANGE (mIU/mL) NON- <1-3 0.2-1 WEEKS 5-50 1-2 WEEKS 50-500 2-3 WEEKS 100-5,000 3-4 WEEKS 500-10,000 4-5 WEEKS 1,000-50,000 5-6 WEEKS 10,000-100,000 6-8 WEEKS 15,000-200,000 8-12 WEEKS 10,000-100,000 Performed By: #### 1 4384451, 1106860, 9246088, 0949208, 6159354, 2996888, 98313604, 6140250 #### [facility] [address] [place] [address] Progesteroneon 08-15-2019 Progesterone [Mass/Vol] 0.20 ng/mL [facility] Comment on above: Result Comment: REFE RENCE RANGE Males 0.14-2.06 ng/mL Non- Females Follicular 0.10-0.60 ng/mL Luteal 3.00-17.5 ng/mL Midluteal 3.30-18.6 ng/mL Post-Menopausal 0.10-0.40 ng/mL First Trimester 8.30-66.5 ng/mL Second Trimester 18.9-66.1 ng/mL Third Trimester 35.8-312.4 ng/mL Performed By: #### 1 4116705, 3619430, 3721339, 6469638, 2747103, 5415484, 20056219, 9082530 #### [facility] [address] [place] [address] TSHon 08-15-2019 TSH Qn 1.05 mcIU/mL Normal 0.34-5.60 [facility] Comment on above: Performed By: #### 1 1952550, 0705948, 4563553, 2258169, 5337114, 4330227, 42244059, 1303090 #### [facility] [address] [place] [address] Coding Summary.on 07-31-2019 Coding Summary. 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 However, the narrative phrase printed from the coding software may appear abbreviated, or result in slightly different terminology. Coded By: Teri Hill CphT Date Saved: 07/31/2019 10:30 am Normal [facility] ED Note-Physicianon 07-28-20 ED Note-Physician Basic Information Time Seen: Oswaldo Fischer PA-C 07/17/2019 21:52 Chief Complaint pt has complaints of abdominal pain nausea and vomiting since 2am, states lab work done at [facility] today liver enzymes were elevated history of [...] Bergeron discussed with Dr. Goel, trauma surgeon carton and can supply supervisor, and Dr. Alvarado, hospitalist carton and can supply supervisor, about patient, history, labs, and imaging findings consistent acute pancreatitis and common bile duct obstruction, patient be admitted to hospitalist services, and consult with Dr. Reddy, GI doctor on-call for possible ROLL FORGER in the morning. Dr. Alvarado admitted patient [...] was treated and evaluated by the Physician Sheep Rancher. The attending physician was Dr. Bergeron in [...] Auto: 6.4 % Low (07/17/19 22:12:00 EDT) [place] Auto: 5.5 % (07/17/19 22:12:00 EDT) Eos Auto: 0.6 % (07/17/19 22:12:00 EDT) Basophil Auto: 0.3 % (07/17/19 22:12:00 EDT) Neutro Absolute: 11.3 E9/L High (07/17/19 22:12:00 EDT) Lymph Absolute: 0.8 E9/L Low (07/17/19 22:12:00 EDT) [place] Absolute: 0.7 E9/L (07/17/19 22:12:00 EDT) Eos [...] Diagnostic Results No qualifying data available. Normal [facility] Comment on above: Result Comment: Elec tronically Signed By: Oswaldo Fischer PA-C\.br\Date and Time Signed: 07/18/19 01:07 EDT\.br\Electronically Co-Signed By: Mehran Bergeron MD\.br\Date and Time Co-Signed: 07/28/19 08:12 EDT Progress Note-Physicianon Progress Note-Physician Chief Complaint Follow up from OR History of Present Illness SUKHDEV SCHWARTZ is a 33 Years Female who presented to [facility] on 07/18/2019 with gallstone pancreatitis. 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 Still waiting for [facility] paperwork which she'll fax to us. [...] 33 Years Female who presented to [facility] on 07/18/2019 with gallstone pancreatitis and is now POD#9 s/p lap aidee. She is recovering well. She can keep covering the periumbilical incision with Bandaid until it heals. I reviewed path report with her. She can follow-up with us PRN. We will fill out [facility] paperwork for her when we receive [...] REACTIVE LYMPH NODE WITH FOLLICULAR HYPERPLASIA. Normal [facility] Comment on above: Result Comment: Elec tronically Signed By: Garrett GUSTAFSON, Marina Fields\.br\Date and Time Signed: 07/28/19 09:13 EDT Coding Summary.on 07-24-2019 Coding Summary. CODING DATE: 019 FINAL [facility] STATUS: Home (Routine DC) PAYOR: Commercial Insurance Grouper: 419 MS-DRG Laparoscopic cholecystectomy w/o c.d.e. w/o CC/ASSISTED Low Trim 0 High Trim 999 263 [...] (BMI) 34.0-34.9, adult PROCEDURES DOCTOR NAME DATE [id number] Resection of Gallbladder, Amando GUSTAFSON, Javan Stevens 07/19/2019 Percutaneous Endoscopic Approach [id number] Extirpation of Matter from Abhinav REDDY MD 07/18/2019 Common Bile Duct, Via Natural or Artificial Opening Endoscopic [id number] Fluoroscopy of Bile Ducts using Abhinav REDDY MD 07/18/2019 Low Osmolar Contrast NOTE: The code number assigned matches the documented diagnosis and / or procedure in the patient's chart. However, the narrative phrase printed from the coding software may appear abbreviated, or result in slightly different terminology. Revised Coded By: Kat Del Rosario Revised Date Saved: 07/24/2019 07:27 am Normal [facility] Progress Note-Physicianon Progress Note-Physician Patient: SUKHDEV [...] All Problems Ovarian dysfunction / SNOMED CT 78537442 / Confirmed Hypothyroidism / SNOMED CT 03395924 / Confirmed Pancreatitis / SNOMED CT 387219862 / Confirmed Histories Past Medical History: No [...] Cardiovascular: Regular rhythm. Neurologic: Alert, Oriented. Plan [place] [employer] Anesthesiologists (ASA) physical status classification: Class II. Anesthetic Preoperative Plan Anesthesia: General. . Anesthetic plan, risks, benefits, and alternatives discussed with the patient and/or family. Communication: face to face with (patient 5 minutes, Patient educated on smoking cesstation). Normal [facility] Comment on above: Result Comment: Elec [...] then closed the umbilical fascia with multiple [id number] 0 Vicryl sutures, then tied the stay [...] Gallbladder Javan Goel MD aek Dictated: 07/19/2019 #[id number] Typed: 07/20/2019 #[id number] cc: Javan Goel MD Normal [facility] Comment on above: Result Comment: Elec tronically Signed By: Amando GUSTAFSON, Javan Stevens\.br\Date and Time Signed: 07/20/19 11:04 EDT Auto Diffon 07-19-2019 Basophils/100 WBC (Bld) 0.2 % Normal 0.0-2.0 [facility] Comment on above: Order Comment: Order Added by Discern Expert. Performed By: #### 1 9529949, 1702518, 2282556, 5911936, 4649474, 0500060, 73604376, 8503011 #### [facility] [address] [place] [address] Basophils/Leukocyte s Auto (Bld) [Pure # fraction] 0.0 E9/L Normal 0.0-0.2 [facility] Comment on above: Order Comment: Order Added by Discern Expert. Performed By: #### 1 8596543, 7475388, 7117461, 7613727, 7128410, 9465288, 97021150, 4483880 #### [facility] [address] [place] [address] Eosinophils/100 WBC (Bld) 1.1 % Normal 0.0-8.0 [facility] Comment on above: Order Comment: Order Added by Discern Expert. Performed By: #### 1 1272147, 2536243, 9651410, 3994414, 9215553, 8859047, 28875081, 4559107 #### [facility] [address] [place] [address] Eosinophils/Leukocy dariel Auto (Bld) [Pure # fraction] 0.1 E9/L Normal 0.0-0.5 [facility] Comment on above: Order Comment: Order Added by Discern Expert. Performed By: #### 1 2967999, 8504766, 5683635, 3915357, 8565476, 6960882, 01659573, 2539887 #### [facility] [address] [place] [address] Lymphocytes/100 WBC (Bld) 11.9 % Low 14.0-50.0 [facility] Comment on above: Order Comment: Order Added by Discern Expert. Performed By: #### 1 1152098, 7148488, 4745868, 4348647, 1980111, 0006488, 63505460, 8094072 #### [facility] [address] [place] [address] Lymphocytes/Leukocy dariel Auto (Bld) [Pure # fraction] 1.1 E9/L Normal 1.0-4.0 [facility] Comment on above: Order Comment: Order Added by Discern Expert. Performed By: #### 1 2925093, 6371461, 1381851, 4491076, 9950581, 3400041, 47119813, 8119641 #### [facility] [address] [place] [address] Monocytes/100 WBC (Bld) 5.8 % Normal 4.0-14.0 [facility] Comment on above: Order Comment: Order Added by Discern Expert. Performed By: #### 1 2673935, 5426717, 3228096, 4680657, 5064551, 6922370, 39427815, 7458834 #### [facility] [address] [place] [address] Monocytes/Leukocyte s Auto (Bld) [Pure # fraction] 0.5 E9/L Normal 0.2-1.0 [facility] Comment on above: Order Comment: Order Added by Discern Expert. Performed By: #### 1 5428959, 4277462, 6512805, 4901286, 2136734, 9816895, 09899004, 2508310 #### [facility] [address] [place] [address] Neutrophils/100 WBC (Bld) 81.0 % High 36.0-75.0 [facility] Comment on above: Order Comment: Order Added by Discern Expert. Performed By: #### 1 6709771, 9972739, 1719628, 3599230, 8091882, 1803619, 21060945, 3176336 #### [facility] [address] [place] [address] Neutrophils/Leukocy dariel Auto (Bld) [Pure # fraction] 7.3 E9/L Normal 2.0-7.5 [facility] Comment on above: Order Comment: Order Added by Discern Expert. Performed By: #### 1 6115270, 7551528, 5053961, 3461366, 0768487, 7081716, 93430518, 1269629 #### [facility] [address] [place] [address] CBC w/ Auto Diffon Erythrocyte distribution width (RBC) [Ratio] 13.6 % Normal 10.9-14.2 [facility] Comment on above: Performed By: #### 1 4730514, 2171211, 5680241, 4479967, 8875479, 9290156, 86561692, 9449657 #### [facility] [address] [place] [address] Hematocrit (Bld) [Volume fraction] 30.5 % Low 34.0-46.0 [facility] Comment on above: Performed By: #### 1 4451877, 8045001, 7952086, 3107215, 5488586, 7656102, 28037714, 5864697 #### [facility] [address] [place] [address] Hemoglobin (Bld) [Mass/Vol] 10.8 g/dL Low 12.0-16.0 [facility] Comment on above: Performed By: #### 1 5491552, 8590814, 7056845, 7431955, 9447372, 0139774, 03632391, 1492305 #### [facility] [address] [place] [address] MCH (RBC) [Entitic mass] 31.4 pg Normal 27.0-34.0 [facility] Comment on above: Performed By: #### 1 4251256, 7096896, 7407058, 4588103, 9624429, 7473217, 32045246, 9802772 #### [facility] [address] [place], [place] [address] MCHC (RBC) [Mass/Vol] 35.2 g/dL Normal 33.3-35.7 [facility] Comment on above: Performed By: #### 1 5054696, 4503314, 9745867, 6642144, 1962584, 7496270, 30166651, 3391482 #### [facility] [address] [place] [address] MCV (RBC) [Entitic vol] 89.0 fL Normal 80.0-100.0 [facility] Comment on above: Performed By: #### 1 2099604, 7443352, 0860763, 0972378, 9601283, 3980455, 25407818, 9594236 #### [facility] [address] [place] [address] Platelet mean volume (Bld) [Entitic vol] 7.4 fL Normal 6.4-10.8 [facility] Comment on above: Performed By: #### 1 1774087, 1537004, 9530121, 8989822, 6836391, 0616931, 49420199, 0680903 #### [facility] [address] [place] [address] Platelets (Bld) [#/Vol] 206.0 E9/L Normal 150.0-500.0 [facility] Comment on above: Performed By: #### 1 6450810, 3557098, 5534611, 3149975, 7667302, 5192277, 52555402, 0539706 #### [facility] [address] [place], [place] [address] RBC (Bld) [#/Vol] 3.4 E12/L Low 4.3-5.9 [facility] Comment on above: Performed By: #### 1 3449063, 8638256, 2027207, 1525414, 0002198, 2174706, 95986956, 1035506 #### [facility] [address] [place] [address] WBC corrected for nucl RBC Auto (Bld) [#/Vol] 9.0 E9/L Normal 4.0-11.0 [facility] Comment on above: Performed By: #### 1 5256141, 0968777, 0419834, 1014906, 5669231, 3603606, 96723002, 3364597 #### [facility] [address] [place] [address] CMPon 07-19-2019 Albumin [Mass/Vol] 3.1 g/dL Low 3.3-5.0 [facility] Comment on above: Performed By: #### 1 8590190, 2121585, 2539761, 4240252, 3358690, 5059959, 47291358, 6917920 #### [facility] [address] [place], [place] [address] Albumin [Mass/Vol] 1.3 g/dL Normal 1.1-2.2 [facility] Comment on above: Performed By: #### 1 2158554, 7759847, 9592472, 3185094, 0434971, 5513283, 05818475, 8627198 #### [facility] [address] [place] [address] ALP [Catalytic activity/Vol] 64 Int._Unit/L Normal 21-98 [facility] Comment on above: Performed By: #### 1 4965997, 2026084, 4921574, 1220976, 0424287, 5959010, 73317693, 4286259 #### [facility] [address] [place] [address] 21309 ALT No additional P-5'-P [Catalytic activity/Vol] 77 Int._Unit/L High 6-46 [facility] Comment on above: Performed By: #### 1 5833309, 4364189, 9681217, 6825658, 7629134, 0521827, 31116848, 9522143 #### [facility] [address] [place] [address] AST [Catalytic activity/Vol] 32 Int._Unit/L Normal 5-43 [facility] Comment on above: Performed By: #### 1 4517475, 4569795, 6502434, 8362628, 4875869, 1954647, 69894394, 1207418 #### [facility] [address] [place] [address] Bilirubin [Mass/Vol] 1.2 mg/dL High 0.0-1.1 [facility] Comment on above: Performed By: #### 1 2831068, 3903024, 5294291, 7570563, 6159050, 3021333, 08064405, 1924287 #### [facility] [address] [place] [address] Creatinine [Mass/Vol] 0.6 mg/dL Normal 0.5-1.3 [facility] Comment on above: Performed By: #### 1 7626326, 6058338, 9846458, 0389287, 8686842, 7800120, 57959241, 3589292 #### [facility] [address] [place] [address] Globulin (S) [Mass/Vol] 2.4 g/dL Normal 1.4-4.0 [facility] Comment on above: Performed By: #### 1 5679246, 1972730, 5995454, 9310426, 9449722, 8033388, 46988702, 1610408 #### [facility] [address] [place] [address] Protein [Mass/Vol] 5.5 g/dL Low 6.0-7.8 [facility] Comment on above: Performed By: #### 1 2382431, 3886822, 5938968, 5247086, 4935856, 7139641, 43933552, 4771205 #### [facility] [address] [place] [address] Urea nitrogen [Mass/Vol] 10 mg/dL Normal 5-21 [facility] Comment on above: Performed By: #### 1 8795792, 1372561, 2802984, 5123805, 0759922, 5881390, 73167141, 4360537 #### [facility] [address] [place] [address] Urea nitrogen/Creatinine [Mass ratio] 17 No Units Normal 10-20 [facility] Comment on above: Performed By: #### 1 2081216, 3365468, 0900094, 1515941, 4370321, 2320063, 41018521, 2351032 #### [facility] [address] [place] [address] Anion gap [Moles/Vol] 12 mmol/L Normal 6-16 [facility] Comment on above: Performed By: #### 1 4995819, 2837346, 8891193, 3735661, 8653921, 5247103, 82508464, 7715042 #### [facility] [facility] [address] [place] [address] Calcium [Mass/Vol] 8.5 mg/dL Low 8.9-11.1 [facility] Comment on above: Performed By: #### 1 [id number], 2504230, 8018216, 5606985, 2636082, 9190105, 02500023, 2260724 #### [facility] [address] [place] [address] Chloride [Moles/Vol] 109 mmol/L Normal 101-111 [facility] Comment on above: Performed By: #### 1 4560977, 0479911, 8244622, 3185187, 4540798, 2689699, 09228085, 5754884 #### [facility] [address] [place] [address] CO2 [Moles/Vol] 22 mmol/L Normal 21-31 [facility] Comment on above: Performed By: #### 1 4181629, 2066043, 3406211, 5463343, 2646939, 2346501, 89032007, 6625598 #### [facility] [address] [place] [address] Glucose [Mass/Vol] 99 mg/dL Normal 55-199 [facility] Comment on above: Result Comment: If t his glucose result represents a fasting glucose, interpretation should refer to the following reference range: 55-99 mg/dL Performed By: #### 1 6714149, 2427234, 8495671, 4258674, 8822538, 4782084, 19223568, 0537254 #### [facility] [address] [place] [address] Potassium [Moles/Vol] 3.7 mmol/L Normal 3.5-5.3 [facility] Comment on above: Performed By: #### 1 9067595, 8272383, 9269290, 8866765, 1845484, 7878259, 67804395, 1555701 #### [facility] [address] [place] [address] Sodium [Moles/Vol] 139 mmol/L Normal 135-145 [facility] Comment on above: Performed By: #### 1 4746436, 2539500, 9229836, 7008628, 6707727, 2578815, 61531186, 1981408 #### [facility] [address] [place] [address] Discharge Note-Nursingon Discharge Note-Nursing Pt taken to picker and packer exit with belongings by wheelchair and discharged home with family per personal vehicle Normal [facility] Inpatient Clinical Summaryon 07-19-2019 Inpatient Clinical Summary [address] [address] Clinical Summary Person Information: Name: SUKHDEV SCHWARTZ Age: 33 Years : 1985 12:00 AM Sex: Female PCP: LOLI MATIAS MD Marital Status: Phone: [phone] Race: White Ethnicity: Non- or Language: [place] Visit Id: Visit Reason: Vomiting; Nausea; Abdominal pain; COMMON DUCT OBSTRUCTION, ACUTE PANCREATITIS Speciality: Acuity: Enc Type: Inpatient Med Service: Medical Arrival: 07/17/2019 8:55 PM Discharge: Dispo Type: Admitted as IP to this [facility] Address: [address] [place] [address] [address] [place] [id number] Provider Notes: Diagnosis: 1:Acute gallstone pancreatitis; 2:Abnormal [...] Follow up: With: Address: When: Javan Brennan [facility], [address], [address] [phone] Business (1) Within 7 to 10 days With: Address: When: [place] [address] Business (1) 08/07/2019 7:30 AM Type Location Start [facility] Follow Up [facility] 09/12/2019 2:00 PM 09/12/2019 2:15 PM Confirmed Patient Education Information: Cholecystostomy Normal [facility] Inpatient Patient Summaryon 07-19-2019 Inpatient Patient Summary [address] [address] Patient Discharge Instructions PERSON INFORMATION Name: SUKHDEV [...] Follow up: With: Address: When: Javan Goel [address] [place] [address], [address], [address] [phone] Business (1) Within 7 to 10 days With: Address: When: LOLI MATIAS [address] [place] [phone] Business (1) 08/07/2019 7:30 AM In the event that this physician does not participate in your insurance network, please consult with your insurance company to find a nearby participating provider. Type Location Start [facility] 09/12/2019 2:00 PM 09/12/2019 2:15 PM Confirmed Comment: JAMES Bain BRITTANY F, have received the attached patient education materials/instructions and have verbalized understanding: Patient Signature __ Date Clinican/Nurse Signature Date HERE ARE THE MEDICATION CHANGES THAT OCCURRED DURING YOUR HOSPITAL STAY New Medications [facility], [address] [id number], [phone] acetaminophen-hydrocodone (acetaminophen-hydrocodone 325 mg-5 mg oral tablet) [...] Mouth 2 times a day. Pharmacy Information: [facility] Comment: PATIENT EDUCATION INFORMATION Instructions: Cholecystostomy The [...] Document Reviewed: 12/31/2009 ExitCare? Patient Information ?2014 YouLicense. This information is not intended to replace advice given to you by your health care provider. Make sure you discuss any questions you have with your health care provider. Medication Leaflets: Thank you for choosing [facility] Normal [facility] Interdisciplinary Note - Arcadio e Manageron 07-19-2019 INR Coag (Bld) [Relative time] Rounding with Dr. Benjamin, Felicia [facility], Rosie [facility], and Agustina GOODRICH with another patient [...] will update family on dc plans. Normal [facility] Comment on above: Result Comment: Elec tronically Signed By: Andrzej GOODRICH, Felicia\.br\Date and Time Signed: 07/19/19 09:10 EDT Main OR Intraoperative Recor don 07-19-2019 Main OR Intraoperative Record IntraOp Document Type FT Summary Primary Physician: Javan Goel MD Finalized Date/Time: 07/19/19 14:22:14 Pt. Name: SUKHDEV SCHWARTZ D.O.B./Sex: 1985 Female Med Rec #: [id number] Physician: Aron ALVARADO DO Financial #: [id number] Pt. Type: I Room/Bed: 06 Admit/Disch: 07/17/19 [...] RN Role Performed Anesthesiologist Surgeon - Primary HOSPITAL LABORATORY TECHNICIAN Sheep Rancher Time In 07/19/19 10:51:00 07/19/19 10:51:00 07/19/19 10:51:00 Time Out 07/19/19 13:18:00 07/19/19 12:56:00 07/19/19 13:18:00 Procedure CHOLECYSTECTOMY CHOLECYSTECTOMY CHOLECYSTECTOMY LAPAROSCOPIC W/ LAPAROSCOPIC W/ LAPAROSCOPIC W/ CHOLANGI(.) CHOLANGI(.) CHOLANGI(.) Comments DR GARVIN OUT FOR LUNCH FROM SUPERVISING.GERI [phone] WANDER GRAY-OUT TO LUNCH FROM [phone]. Last Modified By: Luis Fernando RN, Tosha Gould RN, Tosha Stewart RN 07/19/19 13:22:30 07/19/19 13:22:30 07/19/19 13:22:30 Entry 4 Entry 5 Entry 6 Case Attendee Armaan VILLAGOMEZ, Mónica Gould RN, Tosha Wright RNRavi Role Performed Scrub - Primary Extruding Department Supervisor - Primary Extruding Department Supervisor - Relief Time In 07/19/19 10:51:00 07/19/19 10:51:00 07/19/19 11:04:00 Time Out 07/19/19 13:18:00 07/19/19 13:18:00 07/19/19 11:40:00 Procedure CHOLECYSTECTOMY CHOLECYSTECTOMY CHOLECYSTECTOMY LAPAROSCOPIC W/ LAPAROSCOPIC W/ LAPAROSCOPIC W/ CHOLANGI(.) CHOLANGI(.) CHOLANGI(.) Comments OUT FOR LUNCH FROM OUT TO LUNCH FROM [phone] Last Modified By: Luis Fernando GOODRICH, Tosha Gould RN, Tosha Stewart RN 07/19/19 13:22:30 07/19/19 13:22:30 07/19/19 13:22:30 Entry 7 Entry 8 Entry 9 Case Attendee Adalid VILLAGOMEZ, Bert Vázquez CAD DETAILER/SA, Tosha Wolf CST Performed CAD DETAILER/SA Scrub - Relief Scrub - Other Time [...] tissue Entry 1 Skin Integrity Bruised, Intact, [place], Skin Abnormality Yes Warm, and Dry Abnormality [...] Type TUBE NASOGASTIC SUMP Location MOUTH 18FR [[id number]][F] Quantity 1 Inserted By Geri Guerrero Present [...] Present Upon Arrival No Inserted LF 16FR [[id number]][F] Insertion Date/Time 07/19/19 11:09:00 Urine Residual 350 [...] BLANKET MISTRAL AIR Quantity 1 Aid TORSO [[id number]][F] Fluid/[place] Unit Mistral warming system Setting HIGH/43C Body Site Upper anterior torso Last Modified By: Tosha Gould RN 07/19/19 10:34:51 Case Comments Finalized By: Juanita Stein CST Document Signatures Signed By: Tosha Gould RN 07/19/19 13:23 Juanita Stein CST 07/19/19 14:22 Normal [facility] Main OR PACU I Recordon Main OR PACU I Record PACU Phase I Document Type FT Summary Primary Physician: Javan Goel MD Finalized Date/Time: 07/19/19 13:51:28 Pt. Name: SUKHDEV SCHWARTZ/Sex: 1985 Female Med Rec #: [id number] Physician: Aron ALVARADO DO Financial #: [id number] Pt. Type: I Room/Bed: [place] [address] Admit/Disch: 07/17/19 20:55:00 - Institution: Case Times [...] By: Mariama Cadena RN 07/19/19 13:51 Normal [facility] Main OR Preoperative Recordo n 07-19-2019 Main OR Preoperative Record PreOp Document Type FT Summary Primary Physician: Javan Goel MD Finalized Date/Time: 07/19/19 11:50:30 Pt. Name: SUKHDEV SCHWARTZ Antoni HoltB./Sex: 1985 Female Med Rec #: [id number] Physician: Aron ALVARADO DO Financial #: [id number] Pt. Type: I Room/Bed: [facility] [...] By: Tosha Gould RN 07/19/19 11:50 Normal [facility] Progress Note-Physicianon Progress Note-Physician ACUTE CARE [...] Auto: 11.9 % Low (07/19/19 05:39:00 EDT) [place] Auto: 5.8 % (07/19/19 05:39:00 EDT) Eos Auto: 1.1 % (07/19/19 05:39:00 EDT) Basophil Auto: 0.2 % (07/19/19 05:39:00 EDT) Neutro Absolute: 7.3 E9/L (07/19/19 05:39:00 EDT) Lymph Absolute: 1.1 E9/L (07/19/19 05:39:00 EDT) [place] Absolute: 0.5 E9/L (07/19/19 05:39:00 EDT) Eos [...] Goel MD Trauma/Critical Care/Acute Care Surgery Attending [facility] Comment on above: Result Comment: Elec tronically Signed By: Amando GUSTAFSON, Javan J\.br\Date and Time Signed: 07/19/19 10:32 EDT eGFRon 07-19-2019 GFR/1.73 sq M predicted among blacks MDRD (S/P/Bld) [Vol rate/Area] mL/min/{1.73_m2} Normal >=59 [facility] Comment on above: Order Comment: Order added by Discern Expert. Result Comment: eGFR is race adjusted. AA=. Performed By: #### 1 8387850, 0332477, 3942765, 1598917, 0421100, 2490951, 96037942, 1561763 #### [facility] [address] [place] [address] GFR/1.73 sq M predicted among non-blacks MDRD (S/P/Bld) [Vol rate/Area] mL/min/{1.73_m2} Normal >=59 [facility] Comment on above: Order Comment: Order added by Discern Expert. Result Comment: Food And Drug Research Scientist ivan kidney disease could be indicated at eGFR's of less than 60 mL/min/1.73m2. Kidney failure is indicated at less than 15 mL/min/1.73m2. Performed By: #### 1 7534134, 4743994, 6651714, 5078122, 1907756, 2325284, 96234242, 4745501 #### [facility] [address] [place] [address] Auto Diffon 07-18-2019 Basophils/100 WBC (Bld) 0.4 % Normal 0.0-2.0 [facility] Comment on above: Order Comment: Order Added by Discern Expert. Performed By: #### 1 7888685, 4563891, 2420444, 8223657, 1730095, 6897210, 90102159, 1516812 #### [facility] [address] [place] [address] Basophils/Leukocyte s Auto (Bld) [Pure # fraction] 0.0 E9/L Normal 0.0-0.2 [facility] Comment on above: Order Comment: Order Added by Discern Expert. Performed By: #### 1 7227084, 1020370, 4934358, 4927642, 2743455, 3858109, 06673068, 4671429 #### [facility] [address] [place] [address] Eosinophils/100 WBC (Bld) 0.4 % Normal 0.0-8.0 [facility] Comment on above: Order Comment: Order Added by Discern Expert. Performed By: #### 1 1775424, 3104644, 1532604, 0469872, 5795208, 7244667, 79903588, 8167494 #### [facility] [address] [place] [address] Eosinophils/Leukocy dariel Auto (Bld) [Pure # fraction] 0.0 E9/L Normal 0.0-0.5 [facility] Comment on above: Order Comment: Order Added by Discern Expert. Performed By: #### 1 7900325, 8548228, 2573042, 5818653, 5279300, 7019123, 06731211, 9760597 #### [facility] [address] [place] [address] Lymphocytes/100 WBC (Bld) 19.3 % Normal 14.0-50.0 [facility] Comment on above: Order Comment: Order Added by Discern Expert. Performed By: #### 1 3924189, 2774906, 1752592, 8564346, 4851186, 0776095, 29812119, 7812562 #### [facility] [address] [place] [address] Lymphocytes/Leukocy dariel Auto (Bld) [Pure # fraction] 1.5 E9/L Normal 1.0-4.0 [facility] Comment on above: Order Comment: Order Added by Discern Expert. Performed By: #### 1 2046784, 8550311, 5824689, 1692750, 7374116, 7143603, 62065993, 9137489 #### [facility] [address] [place] [address] Monocytes/100 WBC (Bld) 6.4 % Normal 4.0-14.0 [facility] Comment on above: Order Comment: Order Added by Discern Expert. Performed By: #### 1 6663503, 4390257, 4704399, 6960394, 7868024, 4998904, 86682782, 6193856 #### [facility] [address] [place] [address] Monocytes/Leukocyte s Auto (Bld) [Pure # fraction] 0.5 E9/L Normal 0.2-1.0 [facility] Comment on above: Order Comment: Order Added by Discern Expert. Performed By: #### 1 7877800, 2832337, 4833858, 4636925, 9398581, 3380385, 93494521, 5804635 #### [facility] [address] [place] [address] Neutrophils/100 WBC (Bld) 73.5 % Normal 36.0-75.0 [facility] Comment on above: Order Comment: Order Added by Discern Expert. Performed By: #### 1 5645979, 0001901, 8985416, 8170678, 3651346, 3823775, 14594025, 7738886 #### [facility] [address] [place] [address] Neutrophils/Leukocy dariel Auto (Bld) [Pure # fraction] 5.7 E9/L Normal 2.0-7.5 [facility] Comment on above: Order Comment: Order Added by Discern Expert. Performed By: #### 1 7530873, 6816995, 1734048, 6741347, 1384130, 8705285, 15369122, 4683515 #### [facility] [address] [place] [address] Basophils/100 WBC (Bld) 0.3 % Normal 0.0-2.0 [facility] Comment on above: Order Comment: Order Added by Discern Expert. Performed By: #### 1 9070129, 5295127, 6349461, 7289865, 3554154, 0344949, 95850624, 1853415 #### [facility] [address] [place] [address] Basophils/Leukocyte s Auto (Bld) [Pure # fraction] 0.0 E9/L Normal 0.0-0.2 [facility] Comment on above: Order Comment: Order Added by Discern Expert. Performed By: #### 1 1370146, 3268734, 8628956, 1836628, 4450787, 3663385, 26590590, 6513150 #### [facility] [address] [place] [address] Eosinophils/100 WBC (Bld) 0.6 % Normal 0.0-8.0 [facility] Comment on above: Order Comment: Order Added by Discern Expert. Performed By: #### 1 1812115, 3486977, 8837656, 4575519, 8397089, 1575988, 29615872, 5878086 #### [facility] [address] [place] [address] Eosinophils/Leukocy dariel Auto (Bld) [Pure # fraction] 0.1 E9/L Normal 0.0-0.5 [facility] Comment on above: Order Comment: Order Added by Discern Expert. Performed By: #### 1 8375106, 3577209, 5554362, 3005624, 3166703, 7826957, 83221786, 3123707 #### [facility] [address] [place] [address] Lymphocytes/100 WBC (Bld) 6.4 % Low 14.0-50.0 [facility] Comment on above: Order Comment: Order Added by Discern Expert. Performed By: #### 1 4550073, 1264375, 4015158, 4735105, 7405348, 8613951, 42937995, 8899063 #### [facility] [address] [place] [address] Lymphocytes/Leukocy dariel Auto (Bld) [Pure # fraction] 0.8 E9/L Low 1.0-4.0 [facility] Comment on above: Order Comment: Order Added by Discern Expert. Performed By: #### 1 4379273, 7124685, 8706144, 6005007, 7286360, 2703789, 97423698, 4190131 #### [facility] [address] [place] [address] Monocytes/100 WBC (Bld) 5.5 % Normal 4.0-14.0 [facility] Comment on above: Order Comment: Order Added by Discern Expert. Performed By: #### 1 1570231, 7690467, 6010239, 5342654, 9441978, 6185748, 50612075, 9010946 #### [facility] [address] [place] [address] Monocytes/Leukocyte s Auto (Bld) [Pure # fraction] 0.7 E9/L Normal 0.2-1.0 [facility] Comment on above: Order Comment: Order Added by Discern Expert. Performed By: #### 1 1476692, 8001443, 8943815, 6033988, 4302948, 6086807, 32841924, 1564904 #### [facility] [address] [place] [address] Neutrophils/100 WBC (Bld) 87.2 % High 36.0-75.0 [facility] Comment on above: Order Comment: Order Added by Discern Expert. Performed By: #### 1 0420532, 5051107, 6370819, 0722945, 3177884, 3569631, 20142594, 1231687 #### [facility] [address] [place] [address] Neutrophils/Leukocy dariel Auto (Bld) [Pure # fraction] 11.3 E9/L High 2.0-7.5 [facility] Comment on above: Order Comment: Order Added by Discern Expert. Performed By: #### 1 4440270, 1775653, 4171847, 1251853, 6010210, 9323568, 87647485, 5670035 #### [facility] [address] [place] [address] BMPon 07-18-2019 Urea nitrogen/Creatinine [Mass ratio] 22 No Units High 10-20 [facility] Comment on above: Performed By: #### 1 9149743, 5870970, 8901219, 8478721, 5003304, 2562576, 99466949, 2322901 #### [facility] [address] [place] [address] Creatinine [Mass/Vol] 0.5 mg/dL Normal 0.5-1.3 [facility] Comment on above: Performed By: #### 1 2825932, 3382859, 4650292, 9553688, 3424363, 0202350, 91397119, 4631220 #### [facility] [address] [place] [address] Urea nitrogen [Mass/Vol] 11 mg/dL Normal 5-21 [facility] Comment on above: Performed By: #### 1 2323923, 7745928, 8639434, 4555276, 4044227, 1189202, 99107454, 7846231 #### [facility] [address] [place] [address] Anion gap [Moles/Vol] 12 mmol/L Normal 6-16 [facility] Comment on above: Performed By: #### 1 8979215, 5310132, 4434217, 5215406, 1771613, 3245827, 27936813, 4117125 #### [facility] [address] [place] [address] Calcium [Mass/Vol] 8.8 mg/dL Low 8.9-11.1 [facility] Comment on above: Performed By: #### 1 1341422, 2983228, 5688827, 7279836, 2668048, 8337264, 66235595, 7178694 #### [facility] [address] [place] [address] Chloride [Moles/Vol] 109 mmol/L Normal 101-111 [facility] Comment on above: Performed By: #### 1 4680967, 6649499, 5372926, 3308794, 4470004, 7173558, 41623608, 1979660 #### [facility] [address] [place] [address] CO2 [Moles/Vol] 24 mmol/L Normal 21-31 [facility] Comment on above: Performed By: #### 1 5236353, 2654395, 9993265, 8298016, 7279988, 9271742, 06167238, 4693610 #### [facility] [address] [place] [address] Glucose [Mass/Vol] 104 mg/dL Normal 55-199 [facility] Comment on above: Result Comment: If t his glucose result represents a fasting glucose, interpretation should refer to the following reference range: 55-99 mg/dL Performed By: #### 1 2955043, 5515666, 1215507, 2113168, 2477545, 4289974, 22169710, 7508687 #### [facility] [address] [place] [address] Potassium [Moles/Vol] 3.8 mmol/L Normal 3.5-5.3 [facility] Comment on above: Performed By: #### 1 1088228, 0660204, 1736016, 3927404, 2575605, 3258347, 22321212, 8697867 #### [facility] [address] [place] [address] Sodium [Moles/Vol] 141 mmol/L Normal 135-145 [facility] Comment on above: Performed By: #### 1 3635495, 4281711, 3784876, 0817515, 0015322, 3939807, 15807870, 7273342 #### [facility] [address] [place] [address] Creatinine [Mass/Vol] 0.5 mg/dL Normal 0.5-1.3 [facility] Comment on above: Performed By: #### 1 3526426, 4571045, 4257453, 7608621, 2338304, 3696076, 66827414, 7919429 #### [facility] [address] [place] [address] Urea nitrogen [Mass/Vol] 13 mg/dL Normal 5-21 [facility] Comment on above: Performed By: #### 1 1798762, 6041451, 0403971, 6658294, 5139201, 2864873, 49723426, 5487036 #### [facility] [address] [place] [address] Urea nitrogen/Creatinine [Mass ratio] 26 No Units High 10-20 [facility] Comment on above: Performed By: #### 1 9047513, 2294352, 7076929, 6336615, 7318267, 6024374, 65106710, 4937765 #### [facility] [address] [place] [address] Anion gap [Moles/Vol] 13 mmol/L Normal 6-16 [facility] Comment on above: Performed By: #### 1 4007106, 9241799, 6253001, 3698556, 9708506, 5174499, 61441279, 8426753 #### [facility] [address] [place] [address] Calcium [Mass/Vol] 9.3 mg/dL Normal 8.9-11.1 [facility] Comment on above: Performed By: #### 1 7883828, 0387201, 9111028, 0214310, 9325503, 3180628, 23315138, 6684053 #### [facility] [address] [place] [address] Chloride [Moles/Vol] 105 mmol/L Normal 101-111 [facility] Comment on above: Performed By: #### 1 3307002, 5986979, 1390442, 0859644, 6955126, 4010220, 10403759, 2225899 #### [facility] [address] [place] [address] CO2 [Moles/Vol] 26 mmol/L Normal 21-31 [facility] Comment on above: Performed By: #### 1 7888064, 9023504, 0179810, 4673327, 6817522, 4701766, 06490267, 5826445 #### [facility] [address] [place] [address] Glucose [Mass/Vol] 107 mg/dL Normal 55-199 [facility] Comment on above: Result Comment: If t his glucose result represents a fasting glucose, interpretation should refer to the following reference range: 55-99 mg/dL Performed By: #### 1 0542585, 1322019, 0751841, 4549403, 3273763, 2326544, 52207451, 3791889 #### [facility] [address] [place] [address] Potassium [Moles/Vol] 3.7 mmol/L Normal 3.5-5.3 [facility] Comment on above: Performed By: #### 1 0324519, 9069012, 4474860, 1211705, 4503846, 6090046, 76587918, 1886051 #### [facility] [address] [place] [address] Sodium [Moles/Vol] 140 mmol/L Normal 135-145 [facility] Comment on above: Performed By: #### 1 0308367, 2678269, 6859785, 1278176, 6707082, 9670658, 97701627, 8937152 #### [facility] [address] [place] [address] CBC w/ Auto Diffon 9 Erythrocyte distribution width (RBC) [Ratio] 13.7 % Normal 10.9-14.2 [facility] Comment on above: Performed By: #### 1 4640983, 6324166, 9143026, 0258612, 2235790, 9578687, 63526602, 1713280 #### [facility] [address] [place] [address] Hematocrit (Bld) [Volume fraction] 34.8 % Normal 34.0-46.0 [facility] Comment on above: Performed By: #### 1 4013867, 8421782, 0630373, 5114664, 4171724, 6879663, 91662033, 2752801 #### [facility] [address] [place] [address] Hemoglobin (Bld) [Mass/Vol] 12.0 g/dL Normal 12.0-16.0 [facility] Comment on above: Performed By: #### 1 9014104, 9300166, 5255333, 0480859, 3089521, 1803360, 20969980, 7016683 #### [facility] [address] [place] [address] MCH (RBC) [Entitic mass] 30.5 pg Normal 27.0-34.0 [facility] Comment on above: Performed By: #### 1 9258892, 9110750, 5673626, 9143583, 7803678, 5370180, 61980914, 4109488 #### [facility] [address] [place] [address] MCHC (RBC) [Mass/Vol] 34.5 g/dL Normal 33.3-35.7 [facility] Comment on above: Performed By: #### 1 4840466, 9607230, 0345951, 4599107, 0969680, 9887324, 30227010, 5076796 #### [facility] [address] [place] [address] MCV (RBC) [Entitic vol] 88.6 fL Normal 80.0-100.0 [facility] Comment on above: Performed By: #### 1 0771135, 5008965, 5418088, 0098252, 6005414, 8860267, 59513128, 5379656 #### [facility] [address] [place] [address] Platelet mean volume (Bld) [Entitic vol] 7.9 fL Normal 6.4-10.8 [facility] Comment on above: Performed By: #### 1 5301354, 7025778, 6595297, 2931267, 1890416, 5497458, 33604484, 6908632 #### [facility] [address] [place], [place] [address] Platelets (Bld) [#/Vol] 256.0 E9/L Normal 150.0-500.0 [facility] Comment on above: Performed By: #### 1 6548302, 1399747, 2525858, 6165942, 1527374, 4868623, 17942491, 9623689 #### [facility] [address] [place] [address] RBC (Bld) [#/Vol] 3.9 E12/L Low 4.3-5.9 [facility] Comment on above: Performed By: #### 1 2062099, 1902130, 8694697, 2622675, 7663088, 9709571, 83004149, 7263316 #### [facility] [address] [place] [address] WBC corrected for nucl RBC Auto (Bld) [#/Vol] 7.8 E9/L Normal 4.0-11.0 [facility] Comment on above: Performed By: #### 1 6803257, 3281508, 1184854, 2478665, 4207905, 1164442, 18842771, 2803187 #### [facility] [address] [place] [address] Erythrocyte distribution width (RBC) [Ratio] 13.2 % Normal 10.9-14.2 [facility] Comment on above: Performed By: #### 1 7831757, 2628855, 5961568, 6116392, 0034056, 8314244, 99417202, 4663997 #### [facility] [address] [place] [address] Hematocrit (Bld) [Volume fraction] 38.9 % Normal 34.0-46.0 [facility] Comment on above: Performed By: #### 1 7843976, 8481123, 0268451, 3690276, 1594429, 2319841, 24179837, 3813581 #### [facility] [address] [place] [address] Hemoglobin (Bld) [Mass/Vol] 13.2 g/dL Normal 12.0-16.0 [facility] Comment on above: Performed By: #### 1 2990048, 0596105, 7860764, 7631053, 3427863, 0725721, 11508724, 8287063 #### [facility] [address] [place] [address] MCH (RBC) [Entitic mass] 30.0 pg Normal 27.0-34.0 [facility] Comment on above: Performed By: #### 1 9802694, 9634712, 9966600, 2112906, 2945138, 1578732, 36948925, 1287790 #### [facility] [address] [place] [address] MCHC (RBC) [Mass/Vol] 34.0 g/dL Normal 33.3-35.7 [facility] Comment on above: Performed By: #### 1 2750088, 6149696, 4502319, 6377329, 2878266, 4043006, 70294993, 7850424 #### [facility] [address] [place] [address] 25641 MCV (RBC) [Entitic vol] 88.1 fL Normal 80.0-100.0 [facility] Comment on above: Performed By: #### 1 9728199, 2671037, 7704718, 8689761, 4805151, 3106231, 57534061, 9839229 #### [facility] [address] [place] [address] 17432 Platelet mean volume (Bld) [Entitic vol] 8.3 fL Normal 6.4-10.8 [facility] Comment on above: Performed By: #### 1 1355775, 0206600, 7903493, 5134259, 5818371, 1607969, 23591861, 2580471 #### [facility] [address] [place] [address] Platelets (Bld) [#/Vol] 253.0 E9/L Normal 150.0-500.0 [facility] Comment on above: Result Comment: Slid e reviewed by CHARO. Performed By: #### 1 5009289, 8311937, 6698021, 9303236, 1165701, 5679387, 69937910, 6902876 #### [facility] [address] [place] [address] 26914 RBC (Bld) [#/Vol] 4.4 E12/L Normal 4.3-5.9 [facility] Comment on above: Performed By: #### 1 5289635, 3363659, 5270656, 7926656, 3086947, 3227512, 81025433, 4682217 #### [facility] [address] [place] [address]171 WBC corrected for nucl RBC Auto (Bld) [#/Vol] 13.0 E9/L High 4.0-11.0 [facility] Comment on above: Performed By: #### 1 1633683, 6146417, 4139906, 3904181, 5318905, 4596190, 41498535, 1610502 #### [facility] [address] [place] [address] Consultation Noteon 07-18-20 Consultation Note ACUTE CARE [...] Lymph Auto: 19.3 % (07/18/19 05:33:00 EDT) [place] Auto: 6.4 % (07/18/19 05:33:00 EDT) Eos Auto: 0.4 % (07/18/19 05:33:00 EDT) Basophil Auto: 0.4 % (07/18/19 05:33:00 EDT) Neutro Absolute: 5.7 E9/L (07/18/19 05:33:00 EDT) Lymph Absolute: 1.5 E9/L (07/18/19 05:33:00 EDT) [place] Absolute: 0.5 E9/L (07/18/19 05:33:00 EDT) Eos [...] MD, FACS Trauma/Critical Care/Acute Care Surgery Attending [facility] Comment on above: Result Comment: [...] since 2am, states lab work done at [facility] today liver enzymes were elevated history of pancreatitis History of Present Illness 33 years old white female admitted to [facility] with sudden onset of abdominal pain, [...] list: All Problems Pancreatitis / SNOMED CT 666030949 / Confirmed Hypothyroidism / SNOMED CT 67960826 / Confirmed Ovarian dysfunction / SNOMED CT 08696904 / Confirmed Histories Past Medical History: No [...] Auto 73.5 % Lymph Auto 19.3 % [place] Auto 6.4 % Eos Auto 0.4 % Basophil Auto 0.4 % Neutro Absolute 5.7 E9/L Lymph Absolute 1.5 E9/L [place] Absolute 0.5 E9/L Eos Absolute 0.0 E9/L [...] % HI Lymph Auto 6.4 % LOW [place] Auto 5.5 % Eos Auto 0.6 % Basophil Auto 0.3 % Neutro Absolute 11.3 E9/L HI Lymph Absolute 0.8 E9/L LOW [place] Absolute 0.7 E9/L Eos Absolute 0.1 E9/L [...] related complications, she agreed to proceed Normal [facility] Comment on above: Result Comment: Elec tronically Signed By: CAPRICE GUSTAFSON, Abhinav\.br\Date and Time Signed: 07/18/19 10:01 EDT ED Clinical Summaryon 2018 ED Clinical Summary (Inserted Image. Sachi ble to display) [place] [id number] ED Clinical Summary Person Information Name: SUKHDEV SCHWARTZ [place] Age: 33 Years : 1985 12:00 AM Sex: Female Language: [place] PCP: LOLI MATIAS MD Marital Status: Phone: [phone] Visit Id: Visit Reason: Vomiting; Nausea; Abdominal pain; ABD PAIN, NAUSEA Speciality: Acuity: 3 Enc Type: Emergency Med Service: Emergency Arrival: 07/17/2019 8:55 PM Discharge: LOS: 000 03:53 Checkin: 07/17/2019 8:55 PM Checkout: 07/18/2019 12:48 AM Dispo Type: Admitted as IP to this [facility] EVENTS: Event Name Event Status Request Date/Time [...] 07/18/2019 12:48 AM 07/18/2019 12:48 AM ADDRESS: [facility] [address] [place] [id number] [facility] DOC NOTES: MEDICAL INFORMATION: Prescriptions Given: PATIENT EDUCATION INFORMATION: Instructions: Follow up: DIAGNOSIS: Normal [facility] ED Patient Education Noteon 07-18-2019 ED Patient Education Note Normal [facility] ED Patient Summaryon ED Patient Summary (Inserted Image. Sachi ble to display) [address] [address] Patient Discharge Instructions Person Information Name: SUKHDEV SCHWARTZ Age: 33 Years Arrival Date: 07/17/2019 8:55 PM Discharge Diagnosis: Primary Care Physician: LOLI MATIAS MD Provider Information Primary Provider: Rubio MD, Mehran Advanced Booster Operator:Oswaldo Fischer PA-C The exam and treatment you received in the Emergency Department were for an urgent problem and are not intended as complete care. It is important that you follow up with a doctor, nurse practitioner, or physician?s social media assistant for ongoing care. If your symptoms [...] opioids can be used to help relieve jnuzrqfb-do-ayahts pain and are often prescribed following a [...] be struggling with addiction, tell your health medical care manager and ask for guidance or call [facility]?S National Helpline at 8-777-460-TFGQ. v Source: [place] Department of Health and Human Services/Center for Disease Control & Prevention [facility] Medications Given: Medication Dose Route Sodium Chloride 0.9% intravenous solution 1000.00 mL Initial Volume 1000.00 mL/hr IV Left Antecubital Ana morphine 4.00 mg IV Push Left Anterior Chest ondansetron 4.00 mg IV Push Left Antecubital [place] nalbuphine 5.00 mg IV Push Left Antecubital [place] Medication Information: Medications to Continue with No [...] Drug Jimbo [place] Thank you for choosing [facility] Patient Education Materials: JAMES Bain BRITTANY F , have received the following patient education materials/instructions and have verbalized understanding: Patient Education Materials: Follow-up Instructions: Prescriptions: Patient Signature __ Date Clinician/Nurse Signature Date 07/18/19 00:48:50 Normal [facility] Hep Func Panelon 07-18-2019 Albumin [Mass/Vol] 1.2 g/dL Normal 1.1-2.2 [facility] Comment on above: Performed By: #### 1 3327040, 6409384, 6163337, 2206075, 4471545, 2319541, 90248634, 4150236 #### [facility] [address] [place] [address] ALP [Catalytic activity/Vol] 61 Int._Unit/L Normal 21-98 [facility] Comment on above: Performed By: #### 1 2770574, 2596609, 5206973, 5872377, 3633485, 8642892, 83995880, 2641999 #### [facility] [address] [place] [address] 324[address] ALT No additional P-5'-P [Catalytic activity/Vol] 119 Int._Unit/L High 6-46 [facility] Comment on above: Performed By: #### 1 3362075, 0900165, 5206042, 0583456, 0452246, 1641216, 45443839, 4111816 #### [facility] [address] [place] [address] 59562 AST [Catalytic activity/Vol] 106 Int._Unit/L High 5-43 [facility] Comment on above: Performed By: #### 1 0612212, 1075458, 8578920, 0299354, 1880700, 0251760, 44315619, 0465618 #### [facility] [address] [place] [address] Bilirubin.direct [Mass/Vol] 1.6 mg/dL High 0.1-0.9 [facility] Comment on above: Performed By: #### 1 8071390, 3948179, 4484342, 7173389, 6483696, 6569457, 71893045, 9848436 #### [facility] [address] [place] [address] Globulin (S) [Mass/Vol] 2.7 g/dL Normal 1.4-4.0 [facility] Comment on above: Performed By: #### 1 9418088, 5478241, 4835874, 6245907, 6121151, 5497582, 42877681, 3900053 #### [facility] [address] [place] [address] 33347 Albumin [Mass/Vol] 3.3 g/dL Normal 3.3-5.0 [facility] Comment on above: Performed By: #### 1 4967697, 0462758, 6986250, 3100239, 4245622, 8869700, 00173579, 3477122 #### [facility] [address] [place] [address] Bilirubin [Mass/Vol] 3.6 mg/dL High 0.0-1.1 [facility] Comment on above: Performed By: #### 1 3465557, 6708786, 5887201, 7451321, 6769648, 9557326, 49463034, 6628800 #### [facility] [address] [place] [address] Bilirubin.direct [Mass/Vol] 2.0 mg/dL High 0.1-0.4 [facility] Comment on above: Performed By: #### 1 2793403, 9928396, 1754353, 7320737, 9881433, 3137581, 24906073, 8453433 #### [facility] [address] [place] [address] Protein [Mass/Vol] 6.0 g/dL Normal 6.0-7.8 [facility] Comment on above: Performed By: #### 1 4502615, 5865953, 4574380, 0895707, 0688839, 4502005, 64965033, 1086688 #### [facility] [address] [place] [address] Albumin [Mass/Vol] 3.8 g/dL Normal 3.3-5.0 [facility] Comment on above: Performed By: #### 1 8826299, 3838994, 0182384, 0497503, 8634678, 2920147, 56144433, 5827893 #### [facility] [address] [place] [address] Albumin [Mass/Vol] 1.4 g/dL Normal 1.1-2.2 [facility] Comment on above: Performed By: #### 1 9637095, 3217905, 6827358, 5769781, 2779290, 7554240, 14135804, 6908038 #### [facility] [address] [place] [address] ALP [Catalytic activity/Vol] 69 Int._Unit/L Normal 21-98 [facility] Comment on above: Performed By: #### 1 3917511, 6256110, 8386267, 9159031, 2978305, 5142291, 04950015, 2417790 #### [facility] [address] [place] [address] ALT No additional P-5'-P [Catalytic activity/Vol] 144 Int._Unit/L High 6-46 [facility] Comment on above: Performed By: #### 1 9414053, 2926615, 7222937, 1381834, 5885049, 9282062, 09553664, 4787151 #### [facility] [address] [place] [address] 13943 AST [Catalytic activity/Vol] 179 Int._Unit/L High 5-43 [facility] Comment on above: Performed By: #### 1 4877635, 4459480, 5555008, 9404320, 5195300, 5029445, 86647924, 9398950 #### [facility] [address] [place] [address]605 Bilirubin [Mass/Vol] 3.6 mg/dL High 0.0-1.1 [facility] Comment on above: Performed By: #### 1 7157891, 5687166, 0861922, 8582150, 7717925, 4530763, 18273641, 7435245 #### [facility] [address] [place] [address] Bilirubin.direct [Mass/Vol] 1.5 mg/dL High 0.1-0.9 [facility] Comment on above: Performed By: #### 1 2164155, 4688060, 1361666, 7972379, 7070782, 6462444, 33842661, 0666157 #### [facility] [address] [place] [address] Bilirubin.direct [Mass/Vol] 2.1 mg/dL High 0.1-0.4 [facility] Comment on above: Performed By: #### 1 5913397, 2655043, 3127677, 9371273, 1049251, 4601009, 71043040, 1082391 #### [facility] [address] [place] [address] Globulin (S) [Mass/Vol] 2.7 g/dL Normal 1.4-4.0 [facility] Comment on above: Performed By: #### 1 9594625, 0864151, 5011041, 1040826, 0444437, 3048498, 53060972, 8053637 #### [facility] [address] [place] [address] Protein [Mass/Vol] 6.5 g/dL Normal 6.0-7.8 [facility] Comment on above: Performed By: #### 1 1972089, 5214759, 2109198, 5772176, 3710436, 6566011, 51689898, 3872585 #### [facility] [address] [place] [address] History and Physicalon 07-18 History and Physical [...] states she had a hospitalization while in [place] last month with the same was considered [...] Auto: 6.4 % Low (07/17/19 22:12:00 EDT) [place] Auto: 5.5 % (07/17/19 22:12:00 EDT) Eos Auto: 0.6 % (07/17/19 22:12:00 EDT) Basophil Auto: 0.3 % (07/17/19 22:12:00 EDT) Neutro Absolute: 11.3 E9/L High (07/17/19 22:12:00 EDT) Lymph Absolute: 0.8 E9/L Low (07/17/19 22:12:00 EDT) [place] Absolute: 0.7 E9/L (07/17/19 22:12:00 EDT) Eos [...] 2: Mother. Thyroid cancer: Mother and Sister. [facility] Comment on above: Result Comment: Elec tronically Signed By: Aron ALVARADO DO\.br\Date and Time Signed: 07/18/19 02:27 EDT Interdisciplinary Note - Arcadio e Manageron 07-18-2019 INR Coag (Bld) [Relative time] Rounding with Dr. Benjamin, Felicia ACEVEDO, Rosie [facility], and Jeanette GOODRICH with another patient. [...] needs at discharge. lives with spouse. Normal [facility] Lactic Acidon 07-18-2019 Lactate [Mass/Vol] 10.1 mg/dL Normal 4.5-19.8 [facility] Comment on above: Performed By: #### 1 0360361, 0083247, 6158742, 8627499, 8293080, 3703626, 85588991, 2357931 #### [facility] [address] [place] [address] Lipase Levelon 07-18-2019 Lipase [Catalytic activity/Vol] U/L High 13-58 [facility] Comment on above: Result Comment: Resu lt verified by dilution Performed By: #### 1 6012030, 6143323, 4998132, 2810162, 6829127, 4598612, 72991826, 6901294 #### [facility] [address] [place] [address] Main OR Intraoperative Recor don 07-18-2019 Main OR Intraoperative Record IntraOp Document Type FT Summary Primary Physician: Abhinav REDDY MD Finalized Date/Time: 07/18/19 14:39:36 Pt. Name: SUKHDEV SCHWARTZ/Sex: 1985 Female Med Rec #: [id number] Physician: Aron ALVARADO DO Financial #: [id number] Pt. Type: I Room/Bed: [place] [address] Admit/Disch: 07/17/19 20:55:00 - Institution: Case Times FT Entry 1 Patient Times In Room 07/18/19 09:58:00 Out Room 07/18/19 10:24:00 Procedure Times Start 07/18/19 10:05:00 Stop 07/18/19 10:17:00 Anesthesia Times Start 07/18/19 09:58:00 Stop 07/18/19 10:24:00 Last Modified By: Juanita Stein CST 07/18/19 10:27:28 General Comments: 07/18/19 Chart opened to review and send charges Hilda Stein CAD DETAILER Case Attendance FT Entry 1 Entry 2 Entry 3 Case Attendee CAPRICE GUSTAFSON, Abhinav Eaton Jr DO, Davie Cabrera RN, Pamela Role Performed Surgeon - Primary Anesthesiologist of Extruding Department Supervisor - Primary Record Time In 07/18/19 10:03:00 07/18/19 09:58:00 07/18/19 09:58:00 Time Out 07/18/19 10:24:00 07/18/19 10:24:00 07/18/19 10:24:00 Procedure ERCP(.) ERCP(.) ERCP(.) Comments Last Modified By: Deborah RN, Pamela Cabrera RN, Pamela Cabrera RN, Pamela 07/18/19 10:32:44 07/18/19 10:27:40 07/18/19 10:27:40 Entry 4 Entry 5 Entry 6 Case Attendee Reny Michaud CAD DETAILER, Shobha Nicolas RT, Kathy Turcios Role Performed [...] Attendee Moy GOODRICH, Humaira Hooper Role Performed Extruding Department Supervisor - Other Time In 07/18/19 09:58:00 Time [...] BAE, Davie Perry, Deborah GOODRICH, Pamela, Jerry CAD DETAILER, Jaswant Yeager, Reny K, Fidencio RT, Moy [...] and tissue Entry 1 Skin Integrity Intact, [place], Warm, and Skin Abnormality No Dry Outcomes [...] RN Patient Status Stable Skin. Condition Intact, [place], Warm, and Dry Airway Maintenance Oxygen in Use? No Airway Device N/A Outcomes Met? 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 Yes Verified Last Modified By: Pamela Cabrera RN 07/18/19 10:15:26 Post-Care Text: The patient received appropriate medication(s) safely administered during the perioperative period For [facility] please see scanned medication reconcilliation form [...] signs and symptoms of radiation injury Normal [facility] Main OR PACU I Recordon 10 Main OR PACU I Record PACU Phase I Document Type FT Summary Primary Physician: Abhinav REDDY MD Finalized Date/Time: 07/18/19 10:47:23 Pt. Name: SUKHDEV SCHWARTZ Antoni Garcia./Sex: 1985 Female Med Rec #: [id number] Physician: Aron ALVARADO DO Financial #: [id number] Pt. Type: I Room/Bed: [place] [address] Admit/Disch: 07/17/19 20:55:00 - Institution: Case Times [...] By: Carin Iverson RN 07/18/19 10:47 Normal [facility] Main OR Preoperative Recordo n 07-18-2019 Main OR Preoperative Record Holding Area Document Type FT Summary Primary Physician: Abhinav REDDY MD Finalized Date/Time: 07/18/19 09:36:36 Pt. Name: SEN SCHWARTZTRUMAN Garcia./Sex: 1985 Female Med Rec #: [id number] Physician: Aron ALVARADO DO Financial #: [id number] Pt. Type: I Room/Bed: [facility]/ [...] Patient states Yes Comment - Adult ip [id number] COMING postop adult Supervision supervision available Case [...] RN, Al, Kellen POZO 07/18/19 09:36 Normal [facility] PT & PTTon 07-18-2019 aPTT Coag (PPP) [Time] 28.1 second(s) Normal 25.1-36.5 [facility] Comment on above: Result Comment: Hepa rin therapeutic range (represented by Anti-Factor Xa activity of 0.2 - 0.4 U/mL) corresponds to PTT of 56.6 - 109.0 sec. Performed By: #### 1 4531152, 9408610, 6398300, 5606512, 9903547, 5738409, 16921087, 9561808 #### [facility] [address] [place] [address] INR Coag (PPP) [Relative time] 1.0 {INR} [facility] Comment on above: Result Comment: INR results are specifically intended to assess patients stabilized on long-term Anticoagulation therapy suggested INR?s ?Less Intensive Anticoagulation? 2.0 ? 3.0 Conventional Range 3.0 ? 4.5 Performed By: #### 1 5620871, 9222277, 9815509, 5442456, 7298323, 3877270, 49171380, 3549740 #### [facility] [address] [place] [address] PT Coag (PPP) [Time] 11.9 second(s) Normal 10.2-12.9 [facility] Comment on above: Performed By: #### 1 2614712, 0935484, 2639537, 3963653, 3984730, 7974495, 95001954, 2090378 #### [facility] [address] [place] [address] Prescriptions/Work Noteson 1 Prescriptions/Work Notes Pt to US at this time, via cart. Normal [facility] Progress Note-Nurseon 2018 Progress Note-Nurse SIMI Murillo aware of patient c/o pain. Normal [facility] Progress Note-Nurse Pt care report provi ded to JOLEEN Chavez at this time. Normal [facility] U BetaHcg Qualon 07-18-2019 HCG.beta subunit (U) [Moles/Vol] Negative Normal [facility] Comment on above: Performed By: #### 1 4983922, 6767552, 1938371, 4459445, 6614834, 0107199, 44868254, 9393703 #### [facility] [address] [place] [address] UA With Cult Reflexon 2018 Bacteria LM Ql (Urine sed) 1+ /HPF Abnormal Trace [facility] Comment on above: Performed By: #### 1 7788305, 1178183, 7970631, 9344381, 3412561, 7122107, 81442717, 6884894 #### [facility] [address] [place] [address] Bilirubin Ql (U) 3+ Abnormal Negative [facility] Comment on above: Performed By: #### 1 0722674, 5212056, 7674665, 2795190, 5623444, 7615068, 29490097, 0858311 #### [facility] [address] [place] [address] Clarity (U) SL CLOUDY Abnormal Clear [facility] Comment on above: Performed By: #### 1 2817371, 6273067, 6607718, 1645632, 5551462, 6787228, 88424901, 3436394 #### [facility] [address] [place] [address] Color (U) DARK YELLO Abnormal Yellow [facility] Comment on above: Performed By: #### 1 3384532, 6770454, 5276374, 4499740, 8997232, 0402451, 24340666, 8557980 #### [facility] [address] [place] [address] Crystals LM Ql (Urine sed) Present Normal [facility] Comment on above: Performed By: #### 1 9329349, 2210988, 6427892, 0473730, 8371461, 9911006, 14787441, 9228403 #### [facility] [address] [place] [address] Epithelial cells.squamous LM.HPF (Urine sed) [#/Area] 5-8 Normal 0-2 [facility] Comment on above: Performed By: #### 1 8668113, 2417376, 6698020, 0687296, 2474529, 3277061, 85051221, 4463740 #### [facility] [address] [place] [address] Glucose Test strip (U) [Mass/Vol] Negative Normal Negative [facility] Comment on above: Performed By: #### 1 1388841, 2845038, 8636902, 5984933, 5005786, 0924752, 29028047, 8559193 #### [facility] [address] [place] [address] Hemoglobin Ql (U) TRACE Abnormal Negative [facility] Comment on above: Performed By: #### 1 4233310, 2102279, 9859578, 9940601, 2350594, 8438356, 99786144, 5059976 #### [facility] [address] [place] [address] Ketones (U) [Mass/Vol] 3+ Abnormal Negative [facility] Comment on above: Performed By: #### 1 4532932, 7194521, 0465503, 2896351, 5795000, 2662318, 88489131, 9558845 #### [facility] [address] [place] [address] [place].plasma/Lith ium.RBC (Bld) [Mass ratio] 4-20 Normal 0-3 [facility] Comment on above: Performed By: #### 1 6666443, 2559540, 3634625, 2902587, 4728454, 0113777, 26421133, 1314911 #### [facility] [address] [place] [address] Mucus Ql (Urine sed) 3+ Normal [facility] Comment on above: Performed By: #### 1 4764408, 9179625, 8453521, 6995573, 2588607, 7660973, 05604243, 2144848 #### [facility] [address] [place] [address] Nitrite Ql (U) Negative Normal Negative [facility] Comment on above: Performed By: #### 1 0497943, 3544146, 7808202, 2050023, 0812740, 4479417, 21219367, 1638647 #### [facility] [address] [place] [address] pH (U) 6.0 [pH] 5.0-9.0 [facility] Comment on above: Performed By: #### 1 0514806, 0075031, 4444706, 6576099, 6919866, 5464052, 95420519, 6860949 #### [facility] [address] [place] [address] Protein (U) [Mass/Vol] TRACE Abnormal Negative [facility] Comment on above: Performed By: #### 1 2063982, 6084880, 5787571, 2886267, 9381955, 0699540, 07039606, 7659065 #### [facility] [address] [place] [address] Specific gravity (U) [Rel density] >=1.030 1.005-1.030 [facility] Comment on above: Performed By: #### 1 6135850, 4126887, 9265523, 6196208, 2118920, 0240257, 62684465, 1383948 #### [facility] [address] [place] [address] UA Spec Desc Clean Catch Normal [facility] Comment on above: Performed By: #### 1 4916040, 1906272, 3698269, 7605473, 3607064, 9441967, 65306042, 8759000 #### [facility] [address] [place] [address] Urobilinogen Qn (U) 2.0 {Payal'U}/dL Abnormal 0.0-1.0 [facility] Comment on above: Performed By: #### 1 0419774, 5332727, 1936483, 3646420, 5595573, 9778722, 45011528, 3629010 #### [facility] [address] [place] [address] WBC Auto Ql (U) TRACE Abnormal Negative [facility] Comment on above: Performed By: #### 1 1299309, 4311959, 1934132, 9027571, 0016995, 8779420, 37928686, 2084499 #### [facility] [address] [place] [address] WBC casts LM.LPF (Urine sed) [#/Area] 0-3 Normal [facility] Comment on above: Performed By: #### 1 4890558, 3661404, 1650444, 1857414, 9809483, 5978391, 34710145, 8229883 #### [facility] [address] [place] [address] WBC LM.HPF (Urine sed) [#/Area] 0-5 Normal 0-5 [facility] Comment on above: Performed By: #### 1 6078152, 4462599, 7759683, 9147560, 0134251, 3499103, 41855732, 7721849 #### [facility] [address] [place] [address] US Gallbladderon 07-18-2019 US Gallbladder Exam Date/Time: [...] MD Transcribed by: MADISON Technologist: LALY Earl [facility] XR ERCP Biliary Ducton 07-18 XR ERCP Biliary Duct Exam Date/Time: 07/18/2019 10:25 EDT Reason for Exam: ercp Report IMPRESSION: DISTAL COMMON BILE DUCT STONE, WITH APPARENT REMOVAL FOLLOWING PASSAGE OF A BALLOON CATHETER. SUSPECTED SHORT SEGMENT SPASM OF THE DISTAL MOST COMMON BILE DUCT. CLINICAL HISTORY: ERCP. COMMENT: 6 limited [id number] C-arm images were obtained during an ERCP [...] mGy = 62.1 Fluoro Time: 141.1s Normal [facility] eGFRon 07-18-2019 GFR/1.73 sq M predicted among blacks MDRD (S/P/Bld) [Vol rate/Area] mL/min/{1.73_m2} Normal >=59 [facility] Comment on above: Order Comment: Order added by Discern Expert. Result Comment: eGFR is race adjusted. AA=. Performed By: #### 1 [id number], [id number] #### [facility] [address] [place] [address] GFR/1.73 sq M predicted among non-blacks MDRD (S/P/Bld) [Vol rate/Area] mL/min/{1.73_m2} Normal >=59 [facility] Comment on above: Order Comment: Order added by Discern Expert. Result Comment: Food And Drug Research Scientist ivan kidney disease could be indicated at eGFR's of less than 60 mL/min/1.73m2. Kidney failure is indicated at less than 15 mL/min/1.73m2. Performed By: #### 1 [id number] #### [facility] [address] [place] [address] GFR/1.73 sq M predicted among blacks MDRD (S/P/Bld) [Vol rate/Area] mL/min/{1.73_m2} Normal >=59 [facility] Comment on above: Order Comment: Order added by Discern Expert. Result Comment: eGFR is race adjusted. AA=. Performed By: #### 1 [id number], [id number], [id number] #### [facility] [address] [place] [address] GFR/1.73 sq M predicted among non-blacks MDRD (S/P/Bld) [Vol rate/Area] mL/min/{1.73_m2} Normal >=59 [facility] Comment on above: Order Comment: Order added by Discern Expert. Result Comment: Food And Drug Research Scientist ivan kidney disease could be indicated at eGFR's of less than 60 mL/min/1.73m2. Kidney failure is indicated at less than 15 mL/min/1.73m2. Performed By: #### 1 [id number] #### [facility] [address] [place] [address] Amylaseon 07-17-2019 Amylase [Catalytic activity/Vol] 39 U/L 28 - 100 U/L [place] CBC Auto Differentialon 06-20 Basophils (Bld) [#/Vol] 0.00 10*3/uL [place] Basophils/100 WBC (Bld) 0 % 0 - 2 % [place] Differential Type YES [employer], [place] Eosinophils (Bld) [#/Vol] 0.10 10*3/uL [place] Eosinophils/100 WBC (Bld) 1 % 0 - 5 % [place] Erythrocyte distribution width (RBC) [Ratio] 13.3 % 12.1 - 15.2 % [place] Hematocrit (Bld) [Volume fraction] 36.1 % 36 - 46 % [place] Hemoglobin (Bld) [Mass/Vol] 12.3 g/dL 12 - 16 g/dL [place] Lymphocytes (Bld) [#/Vol] 1.50 10*3/uL [place] Lymphocytes/100 WBC (Bld) 23 % 15 - 40 % [place] MCH (RBC) [Entitic mass] 30.5 pg 26 - 34 pg [place] MCHC (RBC) [Mass/Vol] 34.1 g/dL 31 - 37 g/dL [place] MCV (RBC) [Entitic vol] 89.3 fL 80 - 100 fL [place] Monocytes (Bld) [#/Vol] 0.40 10*3/uL [place] Monocytes/100 WBC (Bld) 6 % 4 - 8 % [place] Platelet mean volume (Bld) [Entitic vol] NOT REPORTED 6 - 12 fL [place] Platelets (Bld) [#/Vol] 301 10*3/uL [place] Platelets (Bld) [#/Vol] NOT REPORTED [place] RBC (Bld) [#/Vol] 4.04 10*6/uL 4 - 5.2 m/uL [place] RBC morphology finding Nom (Bld) NOT REPORTED [place] Segmented neutrophils/100 WBC (Bld) 70 % 47 - 75 % [place] Segs Absolute 4.60 [place] WBC (Bld) [#/Vol] 6.6 10*3/uL [place] WBC (Bld) [#/Vol] NOT REPORTED per 100 WBC [place] WBC Morphology NOT REPORTED [place], [place] Comprehensive Metabolic Pane avel 07-17-2019 Albumin [Mass/Vol] 4.4 g/dL 3.5 - 5.2 g/dL [place] Albumin/Globulin [Mass ratio] NOT REPORTED [place] ALP [Catalytic activity/Vol] 84 U/L 35 - 104 U/L [place] ALT [Catalytic activity/Vol] 153 U/L High 5 - 33 U/L [place] Anion gap [Moles/Vol] 11 mmol/L 9 - 17 mmol/L [place] AST [Catalytic activity/Vol] 243 U/L High <32 [place] Bilirubin Ql (U) 2.37 mg/dL High 0.3 - 1.2 mg/dL [place] Bun/Cre Ratio 27 High [place] Calcium [Mass/Vol] 9.9 mg/dL 8.6 - 10. 4 mg/dL [place] Chloride [Moles/Vol] 104 mmol/L 98 - 107 mmol/L [place] CO2 [Moles/Vol] 24 mmol/L 20 - 31 mmol/L [place] Creatinine [Mass/Vol] 0.49 mg/dL Low 0.5 - 0.9 mg/dL [place] GFR >60 >60 mL/min [place] GFR Non- >60 >60 mL/min [place] GFR/1.73 sq M predicted among non-blacks MDRD (S/P/Bld) [Vol rate/Area] [place] Comment on above: Average GFR for 30-3 9 years old: 107 mL/min/1.73sq m Chronic Kidney Disease: <60 mL/min/1.73sq m Kidney failure: <15 mL/min/1.73sq m eGFR calculated using average adult body mass. Additional eGFR calculator available at: http://www.[employer]/multiple_crcl_2012.htm GFR/1.73 sq M predicted among non-blacks MDRD (S/P/Bld) [Vol rate/Area] NOT REPORTED [place] Glucose [Mass/Vol] 97 mg/dL 70 - 99 mg/dL [place] Interpretation and review of laboratory results Abnormal [place] Potassium [Moles/Vol] 3.6 mmol/L Low 3.7 - 5.3 mmol/L [place] Protein [Mass/Vol] 7.5 g/dL 6.4 - 8.3 g/dL [place] Sodium [Moles/Vol] 139 mmol/L 135 - 144 mmol/L [place] Urea nitrogen [Mass/Vol] 13 mg/dL 6 - 20 mg/dL [place] Lipaseon 07-17-2019 Lipase [Catalytic activity/Vol] 20 U/L 13 - 60 U/L [place] Otheron 07-17-2019 Immature granulocytes (Bld) [#/Vol] NOT REPORTED 0 % [place] US HEAD NECK SOFT TISSUE THY ROIDon 07-14-2019 Stable nodules with no follow-up needed. [place] EXAM: US HEAD NECK S OFT [...] lobe: 4.9 x 1.3 x 1.9 cm. [place] Misha, Mhpn Incoming R adiant Results From [employer] - 07/14/2019 3:21 PM EDT EXAM: US [...] IMPRESSION: Stable nodules with no follow-up needed. [place] TSHon 07-07-2019 TSH Qn 0.78 m[IU]/L Normal 0.44 - 3.98 [facility] Comment on above: Result Comment: TSH testing is performed using different testing methodology at [facility] than at other [facility]. Direct result comparisons should only be made within the same method. . Patients receiving more than 5 mg/day of biotin may have interference in test results. A sample should be taken no sooner than eight hours after previous dose. Contact [phone] for additional information. Performed By: #### T SH2 #### [facility] [id number] [place] [address] TSHon 05-25-2019 TSH Qn 0.77 m[IU]/L Normal 0.44 - 3.98 [facility] Comment on above: Result Comment: TSH testing is performed using different testing methodology at [facility] than at [facility]. Direct result comparisons should only be made within the same method. . Patients receiving more than 5 mg/day of biotin may have interference in test results. A sample should be taken no sooner than eight hours after previous dose. Contact [phone] for additional information. Performed By: #### T SH2 #### [facility] [id number] [place] [address] TSHon 01-18-2019 TSH Qn 0.75 m[IU]/L Normal 0.44 - 3.98 [facility] Comment on above: Result Comment: TSH testing is performed using different testing methodology at [facility] than at other [facility]. Direct result comparisons should only be made within the same method. . Patients receiving more than 5 mg/day of biotin may have interference in test results. A sample should be taken no sooner than eight hours after previous dose. Contact [phone] for additional information. Performed By: #### T SH2 #### [facility] [address] [place] [address] TSHon 01-10-2019 TSH Qn 1.27 m[IU]/L Normal 0.44 - 3.98 [facility] Comment on above: Result Comment: TSH testing is performed using different testing methodology at [facility] than at other [facility]. Direct result comparisons should only be made within the same method. . Patients receiving more than 5 mg/day of biotin may have interference in test results. A sample should be taken no sooner than eight hours after previous dose. Contact [phone] for additional information. Performed By: #### T SH2 #### [facility] [address] [place] [address] TSHon 12-07-2018 TSH Qn 0.86 m[IU]/L Normal 0.44 - 3.98 [facility] Comment on above: Result Comment: TSH testing is performed using different testing methodology at [facility] than at other [facility]. Direct result comparisons should only be made within the same method. . Patients receiving more than 5 mg/day of biotin may have interference in test results. A sample should be taken no sooner than eight hours after previous dose. Contact [phone] for additional information. Performed By: #### T SH2 #### [facility] [address] [place] [address] EXT LAB FERRITINon 9 Ferritin mass conc 97 ng/mL [facility] External Lab CBC (With or wi thout Diff)on 11-12-2018 Basophils (Bld) [#/Vol] 0.0 10*3/uL [facility] Basophils/100 WBC (Bld) 0.8 % [facility] Eosinophils (Bld) [#/Vol] 0.1 10*3/uL [facility] Eosinophils (Bld) [#/Vol] 2.5 10*3/uL [facility] Erythrocyte distribution width (RBC) [Ratio] 12.8 % [facility] Hematocrit (Bld) [Volume fraction] 39.1 % [facility] Hemoglobin (Bld) [Mass/Vol] 13.2 g/dL [facility] Lymphocytes (Bld) [#/Vol] 1.8 10*3/uL [facility] Lymphocytes (Bld) [#/Vol] 30.4 10*3/uL [facility] MCH (RBC) [Entitic mass] 29.8 pg [facility] MCHC (RBC) [Mass/Vol] 33.7 g/dL [facility] MCV (RBC) [Entitic vol] 88.6 fL [facility] Monocytes (Bld) [#/Vol] 0.4 10*3/uL [facility] Monocytes (Bld) [#/Vol] 7.2 10*3/uL [facility] Neutrophils (Bld) [#/Vol] 59.1 10*3/uL [facility] Neutrophils (Bld) [#/Vol] 3.4 10*3/uL [facility] Platelet mean volume (Bld) [Entitic vol] 7.2 fL [facility] Platelets (Bld) [#/Vol] 308 10*3/uL K/mcL [facility] RBC (Bld) [#/Vol] 4.4 10*6/uL [facility] WBC (Bld) [#/Vol] 5.80 10*3/uL K/mcL [facility]alth External Lab Comprehensive M etabolic Panelon 11-12-2018 Albumin [Mass/Vol] 4.1 g/dL [facility] Albumin/Globulin [Mass ratio] 1.2 {ratio} [facility] ALP [Catalytic activity/Vol] 52 U/L [facility] ALT [Catalytic activity/Vol] 11 U/L [facility] AST [Catalytic activity/Vol] 15 U/L [facility] Bilirubin Ql (U) 1.0 mg/dL [facility] Calcium [Mass/Vol] 9.5 mg/dL [facility] Chloride [Moles/Vol] 102 mmol/L [facility] Creatinine [Mass/Vol] 0.60 mg/dL [facility] GFR/1.73 sq M predicted among blacks MDRD (S/P/Bld) [Vol rate/Area] [facility] GFR/1.73 sq M predicted among non-blacks MDRD (S/P/Bld) [Vol rate/Area] [facility] Globulin (S) [Mass/Vol] 3.3 g/dL [facility] Glucose [Mass/Vol] 87 mg/dL [facility] HCO3 (Bld) [Moles/Vol] 25 mmol/L [facility] Magnesium [Mass/Vol] [facility] Phosphate [Mass/Vol] mg/dL [facility] Potassium [Moles/Vol] 4.1 mmol/L [facility] Protein [Mass/Vol] 7.4 g/dL [facility] Sodium [Moles/Vol] 137 mmol/L [facility] Urate [Mass/Vol] mg/dL [facility] Urea nitrogen [Mass/Vol] 15 mg/dL [facility] Urea nitrogen/Creatinine [Mass ratio] 25 mg/mg High [facility] External Lab Vitamin D, 25-O [place] 11-12-2018 Vitamin D, 25-OH 55.0 [facility] External Vitamin B12 and Fol ateon 11-12-2018 Cobalamin (Vitamin B12) mass conc 1500 pg/mL Off scale high [facility] Folate 24.8 ng/mL Off scale high [facility] Otheron 11-12-2018 Interpretation and review of laboratory results Abnormal [facility] TSHon 08-13-2018 TSH Qn 0.64 m[IU]/L Normal 0.44 - 3.98 [facility] Comment on above: Order Comment: FXD S TAT TO [phone]; SPOKE W/ALFREDO , 08/12/2018 22:23 Result Comment: TSH testing is performed using different testing methodology at [facility] than at other [facility]. Direct result comparisons should only be made within the same method. . Patients receiving more than 5 mg/day of biotin may have interference in test results. A sample should be taken no sooner than eight hours after previous dose. Contact [phone] for additional information. FXD STAT TO [phone]; SPOKE W/ALFREDO , 08/12/2018 22:23 Performed By: #### T SH2 #### [facility] [address] [place] [address] Vital Signs Date Time Vital Sign Value Performing Clinician Facility 09-12-2019 15:37-0500 BMI (Body Mass Index) 31.06 kg/m2 [facility] 09-12-2019 15:37-0500 Body weight 103.87 kg [facility] 09-12-2019 15:37-0500 BP Diastolic 85 mm[Hg] [facility] 09-12-2019 15:37-0500 BP Systolic 126 mm[Hg] [facility] 09-12-2019 15:37-0500 Height 182.9 cm [facility] 09-12-2019 15:37-0500 Pulse (Heart Rate) 73 /min [facility] 11-08-2017 09:56-0500 BMI (Body Mass Index) 36.08 kg/m2 [facility] Work Phone: 11-08-2017 09:56-0500 BP Diastolic 81 mm[Hg] [facility] Work [facility]: 11-08-2017 09:56-0500 BP Systolic 120 mm[Hg] [facility] Work Phone: 11-08-2017 09:56-0500 Height 182.9 cm [facility] Work Phone: 11-08-2017 09:56-0500 Pulse (Heart Rate) 70 /min [facility] Work Phone: 11-08-2017 09:56-0500 Weight 120.66 kg [facility] Work Phone: 08-09-2017 14:05-0400 BMI (Body Mass Index) 40.01 kg/m2 Behzad Z[facility]ya [facility] Work Phone: 08-09-2017 14:05-0400 Body Temperature 97.5 [degF] Behzad [facility] Work Phone: 08-09-2017 14:05-0400 BP Diastolic 74 mm[Hg] Behzad Zacherya [facility] Work Phone: 08-09-2017 14:05-0400 BP Systolic 130 mm[Hg] [facility] Work Phone: 08-09-2017 14:05-0400 Height 182.9 cm [facility] Work Phone: 08-09-2017 14:05-0400 Pulse (Heart Rate) 85 /min [facility] Work Phone: 08-09-2017 14:05-0400 Weight 133.81 kg [facility] Work Phone: 06-01-2017 14:30-0400 BMI (Body Mass Index) 43.26 kg/m2 [facility] Work Phone: 06-01-2017 14:30-0400 Body Temperature 97.81 [degF] [facility] Work Phone: 06-01-2017 14:30-0400 BP Diastolic 82 mm[Hg] [facility] Work Phone: 06-01-2017 14:30-0400 BP Systolic 128 mm[Hg] [facility] Work Phone: 06-01-2017 14:30-0400 Height 182.9 cm [facility] Work Phone: 06-01-2017 14:30-0400 Pulse (Heart Rate) 82 /min Behzad Zacherya [facility] Work Phone: 06-01-2017 14:30-0400 Weight 144.7 kg [facility] Work Phone: Encounters Encounter Date Encounter Type Care Provider Facility Start: 04-02-2023 End: 04-03-2023 ambulatory [facility] Start: 04-02-2023 End: 04-02-2023 Subsequent hospital visit by physician Loli Matias MD Work Phone: [facility] Comment on above: Acquired hypothyroid ism Start: 11-10-2022 End: 11-13-2022 ambulatory [facility] Start: 11-10-2022 End: 11-12-2022 Subsequent hospital visit by physician [facility] Ultrasound Room [facility]ound Comment on above: Acquired hypothyroid ism Start: 11-06-2022 End: 02-15-[address] DREW MCBRIDE Facility: Start: 01-13-2022 End: 01-15-2022 Subsequent hospital visit by physician Loli Matias MD Work Phone: [facility] Start: 11-19-2020 End: 11-19-2020 Billy Ramirez Work Phone: [facility] Start: 09-20-2019 End: 09-20-2019 Documentation procedure Behzad Rajendrasinh Rana Work Phone: [facility] Start: 09-18-2019 End: 09-18-2019 Documentation procedure Behzad Rajendrasinh Rana Work Phone: [facility] Start: 09-12-2019 End: 09-12-2019 Patient encounter procedure BEHZAD RAJENDRASINH RANA [facility] Ambulatory Start: 09-12-2019 End: 09-12-2019 Office outpatient visit 15 minutes Behzad Rajendrasinh Rana Work Phone: [facility] Comment on above: Bariatric surgery [facility] (Primary Dx); Obesity, Class I, BMI 30-34.9 Start: 07-17-2019 End: 07-17-2019 Subsequent hospital visit by physician Loli Matias [facility] Laboratory Comment on above: Epigastric pain; History of pancreatitis Start: 07-14-2019 End: 07-16-2019 Subsequent hospital visit by physician [facility] Ultrasound Room [facility]trasound Comment on above: Thyroid nodule Start: 11-16-2018 End: 11-16-2018 Documentation procedure Behzad Hu Work Phone: [facility] Start: 10-24-2018 End: 10-24-2018 Patient encounter procedure BEHZAD HU [facility] Ambulatory Start: 04-11-2018 End: 04-11-2018 [facility] Start: 11-08-2017 Office/outpatient vi sit, est, level 3 Behzad Berniceharvinder Binghamsamuel Work Phone: [facility] Start: 08-09-2017 End: 08-09-2017 Office outpatient visit 15 minutes Behzad Queenhortensiakristian Zacherysamuel Work Phone: [facility] Comment on above: Bariatric surgery [facility] (Primary Dx) Start: 06-01-2017 Postop follow-up visit Behzad majanokristian Mayte Work Phone: [facility] Start: 04-30-2017 End: 05-02-2017 Evaluation and management of inpatient [facility] Start: 04-30-2017 Ambulatory JOSE DRAPER [facility] Start: 04-23-2017 End: 04-27-2017 Ambulatory [facility] Start: 04-05-2012 End: 08-15-2018 Patient encounter procedure Loli Matias MD Work Phone: [facility] Procedures Date Procedure Procedure Detail Performing Clinician Start: 04-02-2023 Assay of thyroid stimulating hormone tsh Loli Matias MD Work Phone: Start: 11-10-2022 Us soft tissue head & neck real time imge docm Nissa Lo [employer] 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 Work Phone: Start: 09-13-2019 EXT LAB FERRITIN [...] (3 - Td or Tdap) [facility] Start: 05-30-2024 DTaP/Tdap/Td vaccine (3 - Td) DTaP/Tdap/Td vaccine (3 - Td) [place] Start: 05-30-2024 DTaP/Tdap/Td vaccine (7 - Td or Tdap) DTaP/Tdap/Td vaccine (7 - Td or Tdap) [facility] Start: 05-30-2024 Tetanus vaccination [facility] Start: 03-24-2024 Depression Screen Depression Screen [facility] Start: 11-18-2022 Depression Screen Depression Screen [facility] Start: 11-18-2022 Thyroid stimulating hormone measurement TSH testing [facility] Start: 2021 Diabetes screen Diabetes screen [facility] Start: 03-28-2021 COVID-19 Vaccine (3 - Booster for Moderna series) COVID-19 Vaccine (3 - Booster for Moderna series) [facility] Start: 09-28-2020 Cervical cancer screen Cervical canc er screen [place] Start: 09-28-2020 Screening for malign ant neoplasm of cervix [facility] Start: 06-18-2020 Influenza vaccinatio n given Sequential Influenza Vaccine (#1) [facility] Start: 06-18-2019 Influenza vaccination Flu vaccine (# 1) [place] Start: 06-18-2019 Influenza vaccinatio n given SEQUENTIAL INFLUENZA VACCINE (#1) [facility] Start: 04-24-2019 End: 04-24-2019 Office Visit 04/24/2019 Office Visit Behzad Rockwell MD [address] [address] [phone] [facility] Start: 08-05-2018 TSH testing TSH testing [facility] [place], [place] Start: 06-18-2018 Influenza vaccinatio n given SEQUENTIAL INFLUENZA VACCINE (#1) [facility] Start: 05-02-2018 Ambulatory 05/02/2018 Off ice Visit Behzad Rockwell MD [address] [place] [address] [phone] [facility] Start: 11-01-2017 Ambulatory 11/01/2017 Off ice Visit Behzad Rockwell MD [address] [place] [address] [phone] [facility] Start: 08-02-2017 Ambulatory 08/02/2017 Off ice Visit Behzad Rockwell MD [address] [place] [address] [phone] [facility] Start: 06-18-2017 Influenza vaccination SEQUENTI AL INFLUENZA VACCINE (#1) [facility] Work Phone: Start: 06-18-2017 SEQUENTIAL INFLUENZA VACCINE (#1) SEQUENTIAL INFLUENZA VACCINE (#1) [facility] Work Phone: Start: 2016 Screening for malign ant neoplasm of cervix HPV (without or with Pap) [facility] Start: 2004 Hepatitis C antibody , confirmatory test Hepatitis C Screening [facility] Start: 2004 Hepatitis C screening Hepatitis C sc reen [facility] Start: 10-04-2002 Hepatitis A vaccine (2 of 2 - 2-dose series) Hepatitis A vaccine (2 of 2 - 2-dose series) [facility] Start: 2001 HIV screen HIV screen [facility] [place] Start: 2001 HIV screening Olga L[facility] Start: 12-25-1999 Varicella Vaccine (1 of 2 - 13+ 2-dose series) Varicella Vaccine (1 of 2 - 13+ 2-dose series) [place] Start: 1998 Adolescent depressio n screening assessment Depression Screening (PHQ9) [facility] Start: 1989 History and physical examination, annual for health maintenance Wellness Visit [facility] Start: 12-25-1987 Varicella vaccine (1 of 2 - 2-dose childhood series) Varicella vaccine (1 of 2 - 2-dose childhood series) [facility] Start: 1986 Cytopathology procedure, preparation of smear, genital source PAP SMEAR [facility] Work Phone: Start: 1986 Hepatitis C screening Hepatitis C sc reen [facility] Start: 1986 Screening for malign ant neoplasm of cervix PAP SMEAR [facility] Work Phone: Start: 1986 TETANUS EVERY 10 YR TETANUS EVERY 10 YR [facility] Work Phone: Start: 1986 Tetanus vaccination TETANUS EVERY 10 YR [facility] Work Phone: End: 09-12-2020 Blood zinc measurement Zinc Lab Routine Bariatric surgery status 1 Occurrences starting 09/12/2019 until 09/12/2020 [facility] Comment on above: 1 Occurrences starti ng 09/12/2019 until 09/12/2020 End: 08-10-2018 CBC and Differential CBC and Differential Routine Bariatric surgery status 1 Occurrences starting 08/09/2017 until 08/10/2018 [facility] Work Phone: Comment on above: 1 Occurrences starti ng 08/09/2017 until 08/10/2018 End: 08-10-2018 Ceruloplasmin Ceruloplasmin Routine Bariatric surgery status 1 Occurrences starting 08/09/2017 until 08/10/2018 [facility] Work Phone: Comment on above: 1 Occurrences starti ng 08/09/2017 until 08/10/2018 End: 09-12-2020 Cobalamin (Vitamin B12) [Mass/Vol] Vitamin B12 Lab Routine Bariatric surgery status 1 Occurrences starting 09/12/2019 until 09/12/2020 [facility] Comment on above: 1 Occurrences starti ng 09/12/2019 until 09/12/2020 End: 08-10-2018 Cobalamin (Vitamin B12) mass conc Vitamin B12 Routine Bariatric surgery status 1 Occurrences starting 08/09/2017 until 08/10/2018 [facility] Work Phone: Comment on above: 1 Occurrences starti ng 08/09/2017 until 08/10/2018 End: 08-10-2018 Comprehensive metabolic 2000 panel Comprehensive Metabolic Panel Routine Bariatric surgery status 1 Occurrences starting 08/09/2017 until 08/10/2018 [facility] Work Phone: Comment on above: 1 Occurrences starti ng 08/09/2017 until 08/10/2018 External Lab Iron External Lab I amanda Routine 11/12/2018 [facility] End: 08-09-2018 Ferritin [Mass/volume] in Serum or Plasma Ferritin Routine Bariatric surgery status 1 Occurrences starting 08/09/2017 until 08/09/2018 [facility] Work Phone: Comment on above: 1 Occurrences starti ng 08/09/2017 until 08/09/2018 End: 08-10-2018 Folate Folate Routine Bariatric surgery status 1 Occurrences starting 08/09/2017 until 08/10/2018 [facility] Work Phone: Comment on above: 1 Occurrences starti ng 08/09/2017 until 08/10/2018 End: 09-12-2020 Folate [Mass/Vol] Folate Lab Routine Bariatric surgery status 1 Occurrences starting 09/12/2019 until 09/12/2020 [facility] Comment on above: 1 Occurrences starti ng 09/12/2019 until 09/12/2020 End: 08-10-2018 Hemoglobin A1c/Hemoglobin.total mass fraction (Bld) Hemoglobin A1c Routine Bariatric surgery status 1 Occurrences starting 08/09/2017 until 08/10/2018 [facility] Work Phone: Comment on above: 1 Occurrences starti ng 08/09/2017 until 08/10/2018 End: 09-12-2020 Iron measurement Iron Study with Ferritin Lab Routine Bariatric surgery status 1 Occurrences starting 09/12/2019 until 09/12/2020 [facility] Comment on above: 1 Occurrences starti ng 09/12/2019 until 09/12/2020 End: 08-10-2018 Lipid panel Lipid Panel Routine Bariatric surgery status 1 Occurrences starting 08/09/2017 until 08/10/2018 [facility] Work Phone: Comment on above: 1 Occurrences starti ng 08/09/2017 until 08/10/2018 End: 08-10-2018 PTH, Intact PTH, Intact Routine Bariatric surgery status 1 Occurrences starting 08/09/2017 until 08/10/2018 [facility] Work Phone: Comment on above: 1 Occurrences starti ng 08/09/2017 until 08/10/2018 End: 09-12-2020 Pyridoxal 5 phosphate level Vitamin B6 Lab Routine Bariatric surgery status 1 Occurrences starting 09/12/2019 until 09/12/2020 [facility] Comment on above: 1 Occurrences starti ng 09/12/2019 until 09/12/2020 End: 08-10-2018 Reticulocytes panel - Blood Reticulocyte Routine Bariatric surgery status 1 Occurrences starting 08/09/2017 until 08/10/2018 [facility] Work Phone: Comment on above: 1 Occurrences starti ng 08/09/2017 until 08/10/2018 End: 09-12-2020 Thiamine measurement Vitamin B1, Whole Blood Lab Routine Bariatric surgery status 1 Occurrences starting 09/12/2019 until 09/12/2020 [facility] Comment on above: 1 Occurrences starti ng 09/12/2019 until 09/12/2020 End: 08-10-2018 Thyrotropin Qn TSH Routine Bariatric surgery status 1 Occurrences starting 08/09/2017 until 08/10/2018 [facility] Work Phone: Comment on above: 1 Occurrences starti ng 08/09/2017 until 08/10/2018 End: 04-02-2023 Thyroxine (T4) free [Mass/volume] in Serum or Plasma [facility] Comment on above: 1 Occurrences starti ng 04/02/2023 until 04/02/2023 End: 08-10-2018 Vitamin A Vitamin A Routine Bariatric surgery status 1 Occurrences starting 08/09/2017 until 08/10/2018 [facility] Work Phone: Comment on above: 1 Occurrences starti ng 08/09/2017 until 08/10/2018 End: 09-12-2020 Vitamin A measurement Vitamin A Lab Routine Bariatric surgery status 1 Occurrences starting 09/12/2019 until 09/12/2020 [facility] Comment on above: 1 Occurrences starti ng 09/12/2019 until 09/12/2020 End: 08-10-2018 Vitamin B1, Whole Blood Vitamin B1, Whole Blood Routine Bariatric surgery status 1 Occurrences starting 08/09/2017 until 08/10/2018 [facility] Work Phone: Comment on above: 1 Occurrences starti ng 08/09/2017 until 08/10/2018 End: 08-10-2018 Vitamin B6 Vitamin B6 Routine Bariatric surgery status 1 Occurrences starting 08/09/2017 until 08/10/2018 [facility] Work Phone: Comment on above: 1 Occurrences starti ng 08/09/2017 until 08/10/2018 End: 09-12-2020 Vitamin D, 25-hydroxy measurement Vitamin D, Total, 25-OH Lab Routine Bariatric surgery status 1 Occurrences starting 09/12/2019 until 09/12/2020 [facility] Comment on above: 1 Occurrences starti ng 09/12/2019 until 09/12/2020 End: 08-10-2018 Vitamin D, Total, 25-OH Vitamin D, Total, 25-OH Routine Bariatric surgery status 1 Occurrences starting 08/09/2017 until 08/10/2018 [facility] Work Phone: Comment on above: 1 Occurrences starti ng 08/09/2017 until 08/10/2018 End: 08-10-2018 Zinc Zinc Routine Bariatric surgery status 1 Occurrences starting 08/09/2017 until 08/10/2018 [facility] Work Phone: Comment on above: 1 Occurrences starti ng 08/09/2017 until 08/10/2018 Immunizations Immunization Date Immunization Notes Care Provider [facility] 07-23-2022 influenza, injectabl e, quadrivalent, preservative free Loli Matias MD Work Phone: [facility] 09-10-2021 influenza virus vaccine, unspecified formulation Loli Matias MD Work Phone: [facility] Work Phone: 10-28-2020 COVID-19, Moderna, Primary or Immunocompromised, PF, 100mcg/0.5mL Loli Matias MD Work Phone: [facility] Work Phone: 10-28-2020 COVID-19, Pfizer Pur ple top, DILUTE for use, 12+ yrs, 30mcg/0.3mL dose Loli Matias MD Work Phone: [facility] Work Phone: 10-04-2020 COVID-19, Moderna, Primary or Immunocompromised, PF, 100mcg/0.5mL Loli Matias MD Work Phone: [facility] Work Phone: 10-04-2020 COVID-19, Pfizer Pur ple top, DILUTE for use, 12+ yrs, 30mcg/0.3mL dose Loli Matias MD Work Phone: [facility] 08-04-2017 tuberculin skin test ; purified protein derivative solution, intradermal [facility], [place] 08-04-2017 unknown vaccine or immune globulin Loli Matias MD Work Phone: [facility] 05-30-2014 tetanus toxoid, redu rachael diphtheria toxoid, and acellular pertussis vaccine, adsorbed [facility] 04-05-2012 tetanus toxoid, redu rachael diphtheria toxoid, and acellular pertussis vaccine, adsorbed [facility] 04-05-2012 tuberculin skin test ; purified protein derivative solution, intradermal [facility], [place] 02-24-2006 hepatitis B vaccine, pediatric or pediatric/adolescent dosage Loli Matias MD Work Phone: [facility] 10-26-2005 hepatitis B vaccine, pediatric or pediatric/adolescent dosage Loli Matias MD Work Phone: [facility] 09-24-2005 hepatitis B vaccine, pediatric or pediatric/adolescent dosage Loli Matias MD Work Phone: [facility] 04-04-2002 hepatitis A and hepatitis B vaccine Loli Matias MD Work Phone: [facility] 04-04-2002 TD(adult) unspecifie d formulation Loli Matias MD Work Phone: [facility] 01-28-1999 measles, mumps and rubella virus vaccine Loli Matias MD Work Phone: [facility] 04-17-1992 diphtheria, tetanus toxoids and acellular pertussis vaccine, unspecified formulation Loli Matias MD Work Phone: [facility] 05-06-1988 diphtheria, tetanus toxoids and pertussis vaccine Loli Matias MD Work Phone: [facility] 05-06-1988 measles, mumps and rubella virus vaccine Loli Matias MD Work Phone: [facility] 01-01-1988 diphtheria, tetanus toxoids and pertussis vaccine Loli Matias MD Work Phone: [facility] 05-01-1987 diphtheria, tetanus toxoids and pertussis vaccine Loli Matias MD Work Phone: [facility] Payers Date Payer Category Payer Unknown [id number] 2022 Unknown [id number] 2019 Unknown BCBS [place] - [place] P PO [id number] 2019-Present [phone] [address] [place] [address] [id number] 2019 Unknown [facility] UMR [place] CE PLUS [id number] 2019-Present [id number] 2018 Unknown [id number] 2018 Private Health Insurance AETNA A ETNA CHOICE POS/POSII/PREMIER CARE/PREMIER CARE PLUS xxxxxxxxxx 2018-Present xxxxxxxxxx [id number] 2018 Private Health Insurance [id number] 2017 Unknown [id number] 3 2017 Unknown [id number] 1986 Unknown [id number] 1986 Unknown [id number] 1986 Unknown [id number] 1986 Unknown [id number] 1986 Unknown [id number] 1986 Unknown [id number] 1959 Self-pay 1959 Unknown [id number] Unknown [id number] 3 Social History Date Type Detail Facility Start: 06-01-2017 End: 03-24-2023 Tobacco smoking status OHIS Never smoker [facility] Work Phone: Start: 1985 Sex Assigned At Not on file [facility] Work Phone: Start: 04-26-2019 End: 07-17-2019 Alcohol intake No [employer] [place], [place] Start: 09-12-2019 End: 03-24-2023 Alcohol intake Current non-drinker of alcohol (finding) [facility] Start: 09-12-2019 End: 03-24-2023 Tobacco use and exposure Never used [facility] Start: 01-13-2022 Alcohol intake [employer] Work Phone: Start: 11-18-2021 History SDOH Financial 5 [employer] Work Phone: Start: 11-18-2021 End: 03-24-2023 History SDOH Food Worry 1 [employer] Phone: Start: 03-24-2023 History SDOH Financial 4 [employer] Start: 03-24-2023 History SDOH Transpo rt Non-Med 2 [employer] Medical Equipment Procedure Code Equipment Code Equipment Origin al Text Equipment Identifier Dates Kit 4ml Vh S/D Tisseel Frozen - [id number] Start: 04-30-2017 Strip Ech 60 Pranav nf Bovine Dorothy-Strips Dry W[employer] - [id number] Start: 04-30-2017 Kit 4ml Vh S/D Tisse[employer] Frozen - [id number] Start: 04-30-2017 Strip Ech 60 Pranav nf Bovine Dorothy-Strips Dry W[employer] - [id number] Start: 04-30-2017 Kit 4ml Vh S/D Tisseel Frozen - [id number] Start: 04-30-2017 Strip Ech 60 Pranav nf Bovine Dorothy-Strips Dry W/[employer] - [id number] Start: 04-30-2017 Kit 4ml Vh S/D Tisseel Frozen - [id number] Start: 04-30-2017 Strip Ech 60 Pranav nf Bovine Dorothy-Strips Dry W[employer] - [id number] Start: 04-30-2017 Kit 4ml Vh S/D Tisseel Frozen - [id number] Start: 04-30-2017 Strip Ech 60 Pranav nf Bovine Dorothy-Strips Dry W[employer] - [id number] Start: 04-30-2017 Kit 4ml Vh S/D Tisseel Frozen - [id number] Start: 04-30-2017 Comment on above: Description: 8ml use d ( 2-4ml kits) Clarification for billing purpose 8 ml = 4 used 0 wasted Strip Ech 60 Pranav nf Bovine Dorothy-Strips Dry [employer] - [id number] Start: 04-30-2017 Comment on above: Description: Charge Only Kit 4ml Vh S/D Tisseel Frozen - [id number] Start: 04-30-2017 Strip Ech 60 Pranav nf Bovine Dorothy-Strips Dry W[employer] - [id number] Start: 04-30-2017 Kit 4ml Vh S/D Tisseel Frozen - [id number] Start: 04-30-2017 Strip Ech 60 Pranav nf Bovine Dorothy-Strips Dry [employer] - [id number] Start: 04-30-2017 Evaluation note Note Date & Type Note Facility Evaluation note Diagnosis Acquired hypothyroidism Unspecified hypothyroidism documented in this encounter [facility] [employer] Phone: Evaluation note Note Date & Type Note Facility Evaluation note Diagnosis Acquired hypothyroidism Unspecified hypothy[facility] Diagnosis Bariatric surgery status - P [...] FoundDocuments on File Type Date Recorded Patient Performance Improvement Manager Expl anation Advance Directives and Living Will Latest Code Status on File Code Status Date Activated Date Inactivated Comments Full Code 04/30/2017 12:41 PM 05/02/2017 7:17 PM Documents on File Type Date Recorded Patient Performance Improvement Manager Expl anation Advance Directives and Living Will Power of Winding Inspector Documents on File Type Date Recorded Patient Performance Improvement Manager Expl anation Advance Directives and Living Will Power of Winding Inspector Documents on File Type Date Recorded Patient Performance Improvement Manager Expl anation ACP-Advance Directive ACP-Power of Winding Inspector History of Present Illness * Behzad Hu MD - 08/09/2017 2:32 PM EDT Formatting of this note may be different from the original. [facility] POSTOP BARIATRIC VISIT PATIENT [...] W/ BIOPSY; Surgeon: Behzad Hu MD; Location: [facility]; Service: GASTRIC SLEEVE BYPASS LAPAROSCOPIC WITH EGD N/A 04/30/2017 Procedure: LAPAROSCOPIC SLEEVE GASTRECTOMY HIATAL HERNIA REPAIR LIVER BIOPSY ESOPHAGOGASTRODUODENOSCOPY; Surgeon: Behzad Hu MD; Location: [facility] Main OR; Service: Social History Social [...] (40 mg total) by mouth daily. pediatric [id number] (flintstones complete) Chew Chew and Swallow Take [...] Hu MD - 09/12/2019 4:49 PM EST [facility] POSTOP BARIATRIC VISIT PATIENT [...] W/ BIOPSY; Surgeon: Behzad Hu MD; Location: [facility]; Service: GASTRIC SLEEVE BYPASS LAPAROSCOPIC WITH EGD N/A 04/30/2017 Procedure: LAPAROSCOPIC SLEEVE GASTRECTOMY HIATAL HERNIA REPAIR LIVER BIOPSY ESOPHAGOGASTRODUODENOSCOPY; Surgeon: Behzad Hu MD; Location: [facility] Main OR; Service: Social History Socioeconomic [...] file Gets together: Not on file Attends taoism service: Not on file Active member of [...] HEAD/NECK TISSUES,REAL TIME Loli Matias MD [address] [place] [address] Specialty Diagnoses / Procedures Referred By Contac t Referred To Contact Radiology Diagnoses Acquired hypothyroidism Procedures US HEAD NECK SOFT TISSUE THYROID Nissa Lo APRN - JULES [address] [address] Referral ID Status Reason Start Date Expiration Date V isits Requested Visits Authorized [id number] Pending Review 11/09/2022 11/09/2023 1 1 Hospital [...] ALVARADO DO Consulting Physician - CAPRICE GUSTAFSON, [facility] Pt is a 33 F [...] All Problems Ovarian dysfunction / SNOMED CT 36105257 / Confirmed Hypothyroidism / SNOMED CT 02539082 / Confirmed Pancreatitis / SNOMED CT 279777964 / Confirmed Physical Examination Vital Signs 07/18/2019 [...] All Problems Ovarian dysfunction / SNOMED CT 52350960 / Confirmed Hypothyroidism / SNOMED CT 32494271 / Confirmed Incomplete miscarriage / SNOMED CT 538829940 / Confirmed missed Pancreatitis / SNOMED CT 637172544 / Confirmed Physical Examination Vital Signs 10/20/2019 [...] All Problems Ovarian dysfunction / SNOMED CT 73016504 / Confirmed Hypothyroidism / SNOMED CT 65100417 / Confirmed Pancreatitis / SNOMED CT 885960922 / Confirmed Physical Examination Vital Signs 07/18/2019 [...] All Problems Ovarian dysfunction / SNOMED CT 47638676 / Confirmed Hypothyroidism / SNOMED CT 01321132 / Confirmed Incomplete miscarriage / SNOMED CT 446122943 / Confirmed missed Pancreatitis / SNOMED CT 441944993 / Confirmed Physical Examination Vital Signs 10/20/2019 [...] [facility] DATE CREATED AUTHOR AUTHOR'S ORGANIZ ATION 09/13/2019 [facility] DATE CREATED AUTHOR AUTHOR'S ORGANIZ ATION 06/18/2020 [facility] DATE CREATED AUTHOR AUTHOR'S ORGANIZ ATION 02/14/2023 [facility] DATE CREATED AUTHOR AUTHOR'S ORGANIZ [...] HEAD/NECK TISSUES,REAL TIME Loli Matias MD [address] [place] [address] Reason Comments Follow-up GS 04/30/17. Prop wt: 350. 10/24/18 229lbs 09/12/19 wt= 240lbs Reason Onset Date Comments Medication Refill 11/19/2020 Specialty Diagnoses / Procedures Referred By Contac t Referred To Contact Radiology Diagnoses Acquired hypothyroidism Procedures US HEAD NECK SOFT TISSUE THYROID Nissa Lo, HUMAN RESOURCES 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 OPERATOR [address] [place] [address] Referral ID Status Reason Start Date Expiration Date V isits Requested Visits Authorized [id number] Pending Review 11/09/2022 11/09/2023 1 1 Care Teams (unrecognized sec tion and content) [employer] Agent Relationship Specialty Start Date End Date Loli Matias MD [address] [place] [id number] PCP - General 07/24/16 [employer] Agent Relationship Specialty Start Date End Date Loli Matias MD [address] [place] [address] PCP - General 07/24/16 [employer] Agent Relationship Specialty Start Date End Date Loli Matias MD [address] [place] [address] PCP - General 07/24/16 FOR RECORDS [...] BE BASED ON THE PRIMARY CLINICAL RECORDS. [facility]. provides no warranty or guarantee of the accuracy or completeness of information in this document.
== END 2024-02-16 07:35 | disposition home or self-care (01) ==
LOC: VC 07:34
PROVIDERS: PCP Radiology Diagnostic Radiology; Visit Provider Radiology Diagnostic Radiology
DX: I83.813 Varicose veins of bilateral lower extremities with pain (principal)
CPT/HCPCS: 36466

== ENCOUNTER 2024-02-21 07:27 | Outpatient (OUT) | payer OTHER, SELFPAY ==
--- NOTE | 2024-02-21 07:33 | VEIN_ITS ---
Patient Name: SUKHDEV WATERMAN MR#: [id number] : 1985 Exam Date: 02/21/2024 Ordering Doctor: DR HANSEL FARLEY M.D. RADIOLOGY REPORT PROCEDURE: [facility] EST [facility]IN [facility] - OFFICE VISIT FOLLOW UP COMPARISON: [facility] EST LMT[facility], 02/14/2024. [facility] EST LMT[facility], 02/03/2024. PROGRESS NOTES: The patient reports no significant problems following micro foam chemical ablation of incompetent varicose veins. The patient has worn her compression stockings. The patient has exercise. The patient did not require oral analgesics. Physical exam demonstrates several scattered areas of bruising. Thrombosed varicose veins can be palpated. No erythema or warmth to suggest cellulitis or thrombophlebitis. No ulceration Review of the ultrasound performed the same day demonstrates occlusive thrombus extending throughout the treated varicose veins. Some deep vein thrombus is identified in a single right posterior tibial vein, 7 cm from the popliteal vein. No treatment was recommended. The patient expressed a desire to proceed with treatment of reticular and spider veins with injection sclerotherapy. VEIN/[facility] EST LMTD IMPRESSION: 1. Successful ablation of treated incompetent varicose veins 2. Persistent reticular and spider veins. PLAN: Injection sclerotherapy of reticular and spider veins Nurse notes, history and physical were reviewed and confirmed, see attached forms. The nurse was present throughout the physical exam and consultation Dictated by: Hansel Farley MD on 02/21/2024 at 08:12 Approved by: Hansel Farley MD on 02/21/2024 at 08:19
--- NOTE | 2024-02-21 07:33 | VEIN_ITS ---
Patient Name: SUKHDEV WATERMAN MR#: [id number] : 1985 Exam Date: 02/21/2024 Ordering Doctor: DR DREW FARLEY M.D. RADIOLOGY REPORT PROCEDURE: VC EXT VENOUS SHAMA LIMITED COMPARISON: None. INDICATIONS: I80.03 Phlebitis of superficial veins of shama lower extremies TECHNIQUE: Lower extremity arnett scale and Duplex Doppler evaluation of the deep venous system from the inguinal ligament through the calf veins. FINDINGS: REGION: Right lower extremity. THROMBI: Acute occlusive thrombus. Chemically induced thrombus in multiple varicose veins in right leg. Thrombus extends into PTV from prox to distal lower leg measuring 13 cm in length. Approximately 7 cm removed from the popliteal vein. COMPRESSIBILITY: Non-compressible segments. FLOW: Areas on no flow. OTHER: No significant varicose veins remain. REGION: Left lower extremity. THROMBI: Acute occlusive thrombus. Chemically induced thrombus in multiple varicose veins. COMPRESSIBILITY: Non-compressible segments. FLOW: Areas on no flow. OTHER: Segment of GSV patent from distal thigh to prox calf. No significant varicose veins remain. *Exam performed in accordance with [facility] practice guidelines- Peripheral venous ultrasound, January 11, 2010. CONCLUSION: 1. 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 3. Segment of deep vein thrombus in a right posterior tibial vein, 7 cm from the popliteal vein, related to a perforating vein Dictated by: Drew Farley MD on 02/21/2024 at 08:07 Approved by: Drew Farley MD on 02/21/2024 at 08:09
--- OUTSIDE RECORDS SUMMARY | 2024-02-21 07:51 | XMS_ITS | CCD ---
Author Organization [facility] Care Team Providers Care Fire Prevention Inspector Name Role Phone Unavailable Unavailable Unavailable VerLoli [...] Care Provider Loli Matias Primary Care Provider [phone] RANA, BEHZAD RAJENDRASINH Attending Unavail able LOLI [...] Propensity to adverse reactions to drug 04-26-2019 [place], [place] (5 sources) levoFLOXacin Drug Allergy 04-26-2019 [place], [place] (3 sources) Penicillins Propensity to adverse reactions to drug 12-01-2011 [place], [place] (3 sources) Seasonal allergy Propensity to adverse reactions to substance 11-18-2021 [facility] (2 sources) Penicillins Propensity to adverse reactions to drug 12-01-2011 [facility] (2 sources) Pollen Propensity to adverse reactions to drug 04-26-2019 [facility] Work Phone: Medications Current Medications Medication [...] Active docusate sodium 50 mg / sennosides, group home 8.6 mg oral tablet (3 sources) take [...] Start: 04-23-2016 take 2 tablets by mo [facility] every eight hours as needed for [...] Active Start: 11-18-2021 [facility] pantoprazole (PROTONIX) 40 MG [...] Class(es) Dates Sig (Normalized) Sig (Original) pediatric vnlphmqx-qvea-evr (flintstones complete) Chew (2 sources) pediatric nvqwpfag-ymub-ayw (flintstones complete) Chew Chew and Swallow Take two daily . Active Pediatric Multivitamin With Iron And Other Minerals Chewable Tablet (1 source) pediatric dsbxwgoe-bbxv-bhw (flintstones complete) Chew Chew and Swallow Take [...] 04-03-2023 Thyroxine, Free 1.4 ng/dL Normal 0.9-1.7 [facility] Comment on above: Performed By: #### F T4 #### [address] [id number] Process Project Engineer: Jarek Branch MD #### TSH #### [facility] [address] [place] [address] Process Project Engineer: Drew Lee MD [facility] TSH [Mass/Vol] 0.83 [facility] Thyroid Stim. Horm.on 2022 Thyroid Stim. Horm. 0.83 uIU/mL Normal 0.30-5.00 [facility] Comment on above: Performed By: #### F T4 #### [id number] [place], [place] [id number] Process Project Engineer: Jarek Branch MD #### TSH #### [facility] [address] [place] [address] Process Project Engineer: Drew Lee MD US HEAD NECK SOFT [...] result Normal [facility] No significant findings. No specific follow-up needed. [facility] EXAM: US HEAD NECK S OFT TISSUE THYROID HISTORY: Acquired hypothyroidism COMPARISON: 07/14/2019. FINDINGS: Right lobe: 5.8 x 2.0 x 1.8 cm. Isthmus: 3.2 mm. Left lobe: 4.5 x 1.8 x 1.6 cm. Rim calcified benign 6 x 5 x 5 mm nodule inferior left lobe not significant and stable. 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 Thyroid echogenicity normal. [facility] Manny Villafuerte Jr., MD - 11/11/2022 [...] No significant findings. No specific follow-up needed. [facility] Phone: US HEAD NECK SOFT TISSUE THY ROIDOrdered By: Manny Villafuerte on 11-11-2022 [facility] Phone: US HEAD NECK SOFT TISSUE THY ROIDon 11-10-2022 Radiology Study observation (narrative) [facility] Phone: Coding Summary.on 05-31-2020 Coding Summary. CODING DATE: 020 FINAL [facility] STATUS: Home (Routine DC) PAYOR: Leela [...] Conception, Retained, Via Natural or Artificial Opening [id number] Control Bleeding in Davie Grijalva MD 05/27/2020 Genitourinary Tract, Via Natural or Artificial Opening 49354T3 Transfusion of Nonautologous Davie Grijalva MD 05/26/2020 Red Blood Cells into Peripheral Vein, Percutaneous Approach 30790K0 Transfusion of Nonautologous Davie Grijalva MD 05/26/2020 Red Blood Cells into Peripheral Vein, Percutaneous Approach 44045N1 Transfusion of Nonautologous Davie Grijalva MD 05/26/2020 Red Blood Cells into Peripheral Vein, Percutaneous Approach 04591A8 Transfusion of Nonautologous Davie Grijalva MD 05/26/2020 Red Blood Cells into Peripheral Vein, Percutaneous Approach 98344J7 Transfusion of Nonautologous Davie Grijalva MD 05/26/2020 Frozen Plasma into Peripheral Vein, Percutaneous Approach 01525O6 Transfusion of Nonautologous Davie Grijalva MD 05/26/2020 Frozen Plasma into Peripheral Vein, Percutaneous Approach 37576T4 Transfusion of Nonautologous Davie Grijalva MD 05/27/2020 Red Blood Cells into Peripheral Vein, Percutaneous Approach NOTE: The code number assigned matches the documented diagnosis and / or procedure in the patient's chart. However, the narrative phrase printed from the coding software may appear abbreviated, or result in slightly different terminology. Coded By: Rae Milton Date Saved: 05/31/2020 11:44 am Normal [facility] IntraOperative Documentson 0 05-31-2020 IntraOperative Documents [id number]:127 Normal [facility] Consent for Procedure/Surger yon 05-28-2020 Consent for Procedure/Surgery [id number]#[id number]:127 Normal [facility] Discharge Instructionson Discharge Instructions [id number]:127 Normal [facility] Discharge Instructions Given Worseningon 05-28-2020 Discharge Instructions Given Worsening The following Patient Education Materials have been given to the patient: EducationMaterial Normal [facility] History and Physicalon 05-28 History and [...] Davie Grijalva MD, FACOG lkr Dictated: 05/26/2020 #[id number] Typed 05/27/2020 #[id number] cc: Davie Grijalva MD, [facility] Comment on above: Result Comment: Elec tronically Signed By: Rudi GUSTAFSON, Davie Duong\.br\Date and Time Signed: 05/28/20 08:12 EDT Inpatient Clinical Summaryon 05-28-2020 Inpatient Clinical Summary [place] [id number] Clinical Summary Person Information Name: SUKHDEV SCHWARTZ Stacey/[facility] Age: 34 Years : 1985 Sex: Female PCP: SONIA GUSTAFSON, LOLI Vela Marital Status: Phone: [phone] Race: White Ethnicity: Non- or Language: Martiniquais Visit Id: Visit Reason: Nausea; Dizziness; Vaginal bleeding; VAG BLEEDING Speciality: Acuity: Other Enc Type: Inpatient Med Service: Obstetrics Arrival: 05/26/2020 11:09:13 Discharge: 05/28/2020 08:40:00 Dispo Type: Home (Routine DC) Address: [address] [id number] Provider Notes: Diagnosis: 1:Miscarriage; 2:Retained products of [...] range between ( 80.0 and 100.0 ) [place] Auto: 6.7 % -- Normal range between ( 4.0 and 14.0 ) MPV: 7.4 fL -- Normal range between ( 6.4 and 10.8 ) Neutro Auto: 68.3 % -- Normal range between ( 36.0 and 75.0 ) Platelet: 278.0 E9/L -- Normal range between ( 150.0 and 500.0 ) WBC: 7.0 E9/L -- Normal range between ( 4.0 and 11.0 ) [place] Absolute: 0.5 E9/L -- Normal range between [...] Follow up: With: Address: When: Dr. Grijalva [phone] Within 1 to 2 weeks Comments: Call for any problems. Patient Education Information: Menorrhagia Normal [facility] Inpatient Patient Summaryon 05-28-2020 Inpatient Patient Summary [place] [id number] Patient Discharge Instructions PERSON INFORMATION Name: SUKHDEV [...] Follow up: With: Address: When: Dr. Grijalva [phone] Within 1 to 2 weeks Comments: Call [...] hospitalization. HOME CARE INSTRUCTIONS ? Only take wrjq-mle-fqwjssb or prescription medicines as directed by your [...] Document Reviewed: 03/25/2014 ExitCare? Patient Information ?2015 3yy game platform. This information is not intended to replace advice given to you by your health care provider. Make sure you discuss any questions you have with your health care provider. Medication Leaflets: Thank you for choosing [facility] Normal [facility] IntraOperative Documentson 0 8-11-2020 IntraOperative Documents [id number]:127 Normal [facility] Operative Reporton [...] Davie Grijalva MD, FACOG lkr Dictated: 05/27/2020 #[id number] Typed: 05/27/2020 #[id number] cc: Davie Grijalva MD, [facility] Comment on above: Result Comment: Elec [...] q6hr, # 15 tab(s), Refills(s) 0, Pharmacy: [facility] #16 Documented Medications Documented Multivitamins: 1 tab(s), [...] list: All Problems Pancreatitis / SNOMED CT 556517832 / Confirmed Incomplete miscarriage / SNOMED CT 967003025 / Confirmed missed Ovarian dysfunction / SNOMED CT 08881176 / Confirmed Hypothyroidism / SNOMED CT 64843003 / Confirmed Resolved: / SNOMED CT 906105206 Resolved: / SNOMED CT 095874856 Resolved: / SNOMED CT 505801384 Resolved: / SNOMED CT 309978885 Physical Examination Intake and Output Denies significant [...] 0 . Respiratory: Adequate air exchange with christianity of preoperative function.. Cardiovascular: Cardiovascular function is stable and has returned to preoperative levels.. Neurologic: Pt has returned to preoperative baseline.. Review / Management Condition: Stable. Assessment Anesthetic outcome No anesthetic complications noted. Plan Transfer/ Discharge: Patient can be discharged from PACU when criteria met. Condition good. Normal [facility] Comment on above: Result Comment: Elec [...] q6hr, # 15 tab(s), Refills(s) 0, Pharmacy: [facility] #16 Documented Medications Documented Multivitamins: 1 tab(s), [...] list: All Problems Pancreatitis / SNOMED CT 455981590 / Confirmed Incomplete miscarriage / SNOMED CT 141993268 / Confirmed missed Ovarian dysfunction / SNOMED CT 94666690 / Confirmed Hypothyroidism / SNOMED CT 34442562 / Confirmed Physical Examination Intake and Output [...] (MAY [birth year]:) Respiratory: Adequate air exchange with christianity of preoperative function.. Cardiovascular: Cardiovascular function is stable and has returned to preoperative levels.. Neurologic: Pt has returned to preoperative baseline.. Review / Management Condition: Stable. Assessment Anesthetic outcome No anesthetic complications noted. Plan Transfer/ Discharge: Patient can be discharged from PACU when criteria met. Condition good. [facility] Comment on above: Result Comment: Elec [...] Davie Grijalva MD, FACOG gls Dictated: 05/27/2020 #[id number] Typed: 05/27/2020 #[id number] cc: Davie Grijalva MD, FACOG [facility] Comment on above: Result Comment: Elec tronically Signed By: Rudi GUSTAFSON, Davie Duong\.br\Date and Time Signed: 05/28/20 08:11 EDT Consent for Anesthesiaon Consent for Anesthesia [id number]:127 [facility] FSPon 05-27-2020 Fibrin+Fibrinogen fragments (S) [Mass/Vol] <10 Normal <10 [facility] Comment on above: Performed By: #### 1 0800743, 9009060, 8740420, 5368492, 5041933, 3026909, 68019396, 4894755 #### [facility] [address] [place] [address] Fibrin+Fibrinogen fragments (S) [Mass/Vol] <10 Normal <10 [facility] Comment on above: Performed By: #### 1 7499486, 3980856, 1766106, 7872020, 2430780, 3760810, 49579127, 0444924 #### [facility] [address] [place] [address]67 Fibrin+Fibrinogen fragments (S) [Mass/Vol] <10 Normal <10 [facility] Comment on above: Performed By: #### 1 1087945, 9459866, 6816662, 1174494, 3572173, 6075108, 07295688, 4302767 #### [facility] [address] [place] [address] Fibrinogenon 05-27-2020 Fibrinogen Coag (PPP) [Mass/Vol] 181 mg/dL Low 200-393 [facility] Comment on above: Performed By: #### 1 6260765, 5458091, 1571753, 6845798, 8931162, 6868578, 74995565, 5292761 #### [facility] [address] [place] [address] Fibrinogen Coag (PPP) [Mass/Vol] 178 mg/dL Low 200-393 [facility] Comment on above: Performed By: #### 1 0691898, 8491186, 4181072, 4944253, 9406272, 2893555, 36586729, 7869553 #### [facility] [address] [place] [address]2764 Fibrinogen Coag (PPP) [Mass/Vol] 174 mg/dL Low 200-393 [facility] Comment on above: Performed By: #### 1 6616422, 2833036, 7534482, 3835641, 1366911, 3900290, 30960355, 4226250 #### [facility] [address] [place] [address] 64696 Hct & Hgbon 05-27-2020 Hematocrit (Bld) [Volume fraction] 23.9 % Low 34.0-46.0 [facility] Comment on above: Performed By: #### 1 5224766, 4727848, 2742781, 5820111, 4215668, 9527761, 24650489, 1843952 #### [facility] [address] [place] [address] 22359 Hemoglobin (Bld) [Mass/Vol] 8.3 g/dL Low 12.0-16.0 [facility] Comment on above: Performed By: #### 1 8246918, 3615870, 4628539, 6058147, 5167966, 9354212, 57664340, 9870649 #### [facility] [address] [place] [address]09 Hematocrit (Bld) [Volume fraction] 22.4 % Low 34.0-46.0 [facility] Comment on above: Performed By: #### 1 4865063, 9755179, 6476756, 8660521, 5913626, 7340323, 61661031, 5602625 #### [facility] [address] [place] [address]250 Hemoglobin (Bld) [Mass/Vol] 7.8 g/dL Low 12.0-16.0 [facility] Comment on above: Performed By: #### 1 5399064, 5923991, 3179129, 0684982, 5176274, 1873640, 92993031, 0912663 #### [facility] [address] [place] [address] Hematocrit (Bld) [Volume fraction] 26.2 % Low 34.0-46.0 [facility] Comment on above: Performed By: #### 1 6546139, 0455206, 1267157, 7644725, 0151929, 3078488, 83678489, 1767998 #### [facility] [address] [place] [address] 22349 Hemoglobin (Bld) [Mass/Vol] 8.9 g/dL Low 12.0-16.0 [facility] Comment on above: Performed By: #### 1 1251435, 5353435, 2084921, 6300764, 7333142, 9338974, 33985164, 1232413 #### [facility] [address] [place] [address] IntraOperative Documentson 0 05-27-2020 IntraOperative Documents [id number]:127 Normal [facility] Main OR Intraoperative Recor don 05-27-2020 Main OR Intraoperative Record IntraOp Document Type FT Summary Primary Physician: Davie Grijalva MD Finalized Date/Time: 05/27/20 13:44:47 Pt. Name: SUKHDEV SCHWARTZ Antoni Mo/Sex: 1985 Female Med Rec #: [id number] Physician: Davie Grijalva MD Financial #: [id number] Pt. 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 Yes Last Modified By: eRna Castelan RN 05/26/20 20:10:03 Post-Care Text: The [...] and tissue Entry 1 Skin Integrity Intact, [employer], Warm, and Skin Abnormality No Dry, Bruised [...] RN, NADYAOR, Rasheeda RN, NADYAOR, Matilde, Armaan DATA WAREHOUSE SPECIALIST, Armaan Clayton DATA WAREHOUSE SPECIALIST, Mónica Mónica Outcomes Met? Yes Yes [...] Patient Status Stable Skin. Condition Bruised, Intact, [employer], Description same as preop Warm, and Dry [...] BLANKET MISTRAL AIR Quantity 1 Aid TORSO [[id number]][F] Fluid/Elba Unit Mistral warming system Setting 43c, high Body Site Upper anterior torso Last Modified By: Rena Castelan RN 05/26/20 20:15:53 Case Comments Finalized By: Juanita Stein CST Document Signatures Signed By: Rena Castelan RN 05/26/20 20:16 Juanita Stein CST 05/27/20 13:44 Normal [facility] PACU Recordon 05-27-2020 PACU Record [id number]:127 Normal [facility] PT & PTTon 05-27-2020 aPTT Coag (PPP) [Time] 24.6 second(s) Low 25.1-36.5 [facility] Comment on above: Order Comment: Order Added by Discern Expert. Result Comment: Hepa rin therapeutic range (represented by Anti-Factor Xa activity of 0.2 - 0.4 U/mL) corresponds to PTT of 56.6 - 109.0 sec. Performed By: #### 1 4749868, 3483817, 2904365, 7406983, 5992879, 2589955, 46514449, 9281635 #### [facility] [address] [place] [address] INR Coag (PPP) [Relative time] 1.1 {INR} [facility] Comment on above: Order Comment: Order Added by Discern Expert. Result Comment: INR results are specifically intended to assess patients stabilized on long-term Anticoagulation therapy suggested INR?s ?Less Intensive Anticoagulation? 2.0 ? 3.0 Conventional Range 3.0 ? 4.5 Performed By: #### 1 0868324, 2395803, 0177099, 7417701, 6881114, 6619110, 02162024, 4956684 #### [facility] [address] [place] [address] PT Coag (PPP) [Time] 12.6 second(s) Normal 10.2-12.9 [facility] Comment on above: Order Comment: Order Added by Discern Expert. Performed By: #### 1 3212424, 3106862, 4741351, 7211199, 1775041, 3204225, 66480537, 5399090 #### [facility] [address] [place] [address] aPTT Coag (PPP) [Time] 25.1 second(s) Normal 25.1-36.5 [facility] Comment on above: Result Comment: Hepa rin therapeutic range (represented by Anti-Factor Xa activity of 0.2 - 0.4 U/mL) corresponds to PTT of 56.6 - 109.0 sec. Performed By: #### 1 5089873, 1230460, 8735917, 4835436, 0306840, 6045562, 83130715, 9023351 #### [facility] [address] [place] [address] INR Coag (PPP) [Relative time] 1.2 {INR} [facility] Comment on above: Result Comment: INR results are specifically intended to assess patients stabilized on long-term Anticoagulation therapy suggested INR?s ?Less Intensive Anticoagulation? 2.0 ? 3.0 Conventional Range 3.0 ? 4.5 Performed By: #### 1 2758471, 2850599, 7591446, 3594538, 8622779, 1239781, 39632530, 8782430 #### [facility] [address] [place] [address] PT Coag (PPP) [Time] 13.5 second(s) High 10.2-12.9 [facility] Comment on above: Performed By: #### 1 4172399, 3395839, 9709513, 6263573, 3802852, 6218837, 88761848, 4011709 #### [facility] [address] [place] [address] aPTT Coag (PPP) [Time] 24.5 second(s) Low 25.1-36.5 [facility] Comment on above: Result Comment: Hepa rin therapeutic range (represented by Anti-Factor Xa activity of 0.2 - 0.4 U/mL) corresponds to PTT of 56.6 - 109.0 sec. Performed By: #### 1 2867518, 6033949, 7635219, 6661627, 0058424, 1072833, 93841198, 5170011 #### [facility] [address] [place] [address] INR Coag (PPP) [Relative time] 1.2 {INR} [facility] Comment on above: Result Comment: INR results are specifically intended to assess patients stabilized on long-term Anticoagulation therapy suggested INR?s ?Less Intensive Anticoagulation? 2.0 ? 3.0 Conventional Range 3.0 ? 4.5 Performed By: #### 1 3798088, 1147671, 7381471, 6064082, 6744022, 0816116, 45657012, 5062020 #### [facility] [address] [place] [address] PT Coag (PPP) [Time] 14.0 second(s) High 10.2-12.9 [facility] Comment on above: Performed By: #### 1 5480980, 2170972, 6922382, 8478870, 9658878, 9316587, 58668363, 5663214 #### [facility] [address] [place] [address] ABO/Rhon 05-26-2020 ABO/Rh Positive [facility] Comment on above: Performed By: #### 1 2053744, 7699018, 8169407, 2470667, 3764837, 6417577, 74784281, 7659808 #### [facility] [address] [place] [address] ABO/Rh History Checkon 05-26 ABO/Rh History Check Verified Hx Blood Type Normal [facility] Comment on above: Performed By: #### 1 9526263, 3498348, 4956005, 1323855, 9332484, 3006632, 88233293, 7537175 #### [facility] [address] [place] [address] 07046 ABSCon 05-26-2020 ABSC Gel Interp Negative Normal [facility] Comment on above: Performed By: #### 1 2731865, 8947113, 9222499, 1124670, 6734561, 7151452, 83984520, 8212480 #### [facility] [address] [place] [address] Auto Diffon 05-26-2020 Basophils/100 WBC (Bld) 0.8 % Normal 0.0-2.0 [facility] Comment on above: Order Comment: Order Added by Discern Expert. Performed By: #### 1 3992753, 7592179, 7419425, 5931082, 4888038, 3346964, 55075179, 1878724 #### [facility] [address] [place] [address] 33651 Basophils/Leukocyte s Auto (Bld) [Pure # fraction] 0.1 E9/L Normal 0.0-0.2 [facility] Comment on above: Order Comment: Order Added by Discern Expert. Performed By: #### 1 8807540, 9624990, 8856042, 2185120, 6631870, 9217335, 20987428, 4551922 #### [facility] [address] [place] [address]84 Eosinophils/100 WBC (Bld) 2.0 % Normal 0.0-8.0 [facility] Comment on above: Order Comment: Order Added by Discern Expert. Performed By: #### 1 9091163, 2361618, 4116573, 2671128, 4677155, 9870113, 21855960, 4409976 #### [facility] [address] [place] [address] Eosinophils/Leukocy dariel Auto (Bld) [Pure # fraction] 0.1 E9/L Normal 0.0-0.5 [facility] Comment on above: Order Comment: Order Added by Discern Expert. Performed By: #### 1 2058449, 6135408, 1920425, 9339167, 7233699, 2536046, 55634287, 0567160 #### [facility] [address] [place] [address] Lymphocytes/100 WBC (Bld) 22.2 % Normal 14.0-50.0 [facility] Comment on above: Order Comment: Order Added by Discern Expert. Performed By: #### 1 9610930, 4805272, 5738554, 3868197, 9695763, 3329590, 36316123, 1772396 #### [facility] [address] [place] [address] 406[address] Lymphocytes/Leukocy dariel Auto (Bld) [Pure # fraction] 1.6 E9/L Normal 1.0-4.0 [facility] Comment on above: Order Comment: Order Added by Discern Expert. Performed By: #### 1 0518037, 1645130, 0404435, 6131233, 1920134, 7128100, 15101660, 7817301 #### [facility] [address] [place] [address] Monocytes/100 WBC (Bld) 6.7 % Normal 4.0-14.0 [facility] Comment on above: Order Comment: Order Added by Discern Expert. Performed By: #### 1 9374402, 9859479, 6089724, 6039826, 8365778, 4332397, 71469029, 1623724 #### [facility] [address] [place] [address] Monocytes/Leukocyte s Auto (Bld) [Pure # fraction] 0.5 E9/L Normal 0.2-1.0 [facility] Comment on above: Order Comment: Order Added by Discern Expert. Performed By: #### 1 8396861, 7456880, 9276027, 5712534, 7674939, 4260725, 39545189, 2492211 #### [facility] [address] [place] [address] Neutrophils/100 WBC (Bld) 68.3 % Normal 36.0-75.0 [facility] Comment on above: Order Comment: Order Added by Discern Expert. Performed By: #### 1 2543543, 5034598, 5655609, 3498530, 1419977, 3702330, 42060189, 4111299 #### [facility] [address] [place] [address] Neutrophils/Leukocy dariel Auto (Bld) [Pure # fraction] 4.8 E9/L Normal 2.0-7.5 [facility] Comment on above: Order Comment: Order Added by Discern Expert. Performed By: #### 1 4447020, 6584886, 2744914, 0842411, 3961401, 5495662, 48303711, 6992815 #### [facility] [address] [place] [address] B hCG Qualon 05-26-2020 Beta hCG Ql Positive Normal [facility] Comment on above: Result Comment: mary ected Performed By: #### 1 4688337, 3227337, 4012125, 3768422, 7105575, 6607104, 65503784, 6453544 #### [facility] [address] [place] [address] BMPon 05-26-2020 Creatinine [Mass/Vol] 0.7 mg/dL Normal 0.5-1.3 [facility] Comment on above: Performed By: #### 1 2794934, 9980094, 8886651, 2643639, 3818839, 9040185, 67385852, 1610948 #### [facility] [address] [place] [address] Urea nitrogen [Mass/Vol] 15 mg/dL Normal 5-21 [facility] Comment on above: Performed By: #### 1 0626936, 0821068, 5033191, 7758736, 0093124, 9060171, 82257126, 2722526 #### [facility] [address] [place] [address] Urea nitrogen/Creatinine [Mass ratio] 21 No Units High 10-20 [facility] Comment on above: Performed By: #### 1 9902974, 2718745, 3478964, 6748352, 6829189, 0888893, 27379685, 1779305 #### [facility] [address] [place] [address] Anion gap [Moles/Vol] 12 mmol/L Normal 6-16 [facility] Comment on above: Performed By: #### 1 1581399, 1738297, 4838718, 7817854, 5418535, 6415103, 03200240, 4790466 #### [facility] [address] [place] [address] Calcium [Mass/Vol] 9.4 mg/dL Normal 8.9-11.1 [facility] Comment on above: Performed By: #### 1 8818796, 4007478, 5322362, 9911360, 5162203, 4161070, 98172541, 6751522 #### [facility] [address] [place] [address] Chloride [Moles/Vol] 105 mmol/L Normal 101-111 [facility] Comment on above: Performed By: #### 1 2490744, 2155998, 0525145, 3356137, 3394276, 7977542, 70156897, 8469382 #### [facility] [address] [place] [address] CO2 [Moles/Vol] 26 mmol/L Normal 21-31 [facility] Comment on above: Performed By: #### 1 4865000, 6545464, 7041729, 5222869, 4548483, 6721224, 62873488, 8520141 #### [facility] [address] [place] [address] Glucose [Mass/Vol] 101 mg/dL Normal 55-199 [facility] Comment on above: Result Comment: If t his glucose result represents a fasting glucose, interpretation should refer to the following reference range: 55-99 mg/dL Performed By: #### 1 6736123, 0350903, 7624977, 9639569, 8801282, 8837568, 13696202, 7961561 #### [facility] [address] [place] [address] Potassium [Moles/Vol] 3.9 mmol/L Normal 3.5-5.3 [facility] Comment on above: Performed By: #### 1 9752222, 2629235, 2551160, 0026776, 6446297, 7765618, 58826502, 3689846 #### [facility] [address] [place] [address] Sodium [Moles/Vol] 139 mmol/L Normal 135-145 [facility] Comment on above: Performed By: #### 1 4617859, 2505154, 5530783, 4293548, 1567553, 6786136, 26116385, 8477510 #### [facility] [address] [place] [address] [facility] HCG.beta subunit Qn 18 m[IU]/mL High 1-3 [facility] Comment on above: Result Comment: GEST ATIONAL AGE HCG RANGE (mIU/mL) NON- <1-3 0.2-1 WEEKS 5-50 1-2 WEEKS 50-500 2-3 WEEKS 100-5,000 3-4 WEEKS 500-10,000 4-5 WEEKS 1,000-50,000 5-6 WEEKS 10,000-100,000 6-8 WEEKS 15,000-200,000 8-12 WEEKS 10,000-100,000 Performed By: #### 1 0925945, 5854138, 8247705, 4059220, 9150651, 0684359, 16490479, 2393970 #### [facility] [address] [place] [address] Blood Bank ID#on 05-26-2020 BBID# [id number] [facility] Comment on above: Performed By: #### 1 9911930, 5592701, 9227958, 4550120, 3876603, 6008937, 10337334, 6845257 #### [facility] [address] [place] [address] CBC w/ Auto Diffon 0 Erythrocyte distribution width (RBC) [Ratio] 12.4 % Normal 10.9-14.2 [facility] Comment on above: Performed By: #### 1 7479580, 8613084, 2584297, 0985910, 9096060, 5505179, 45972061, 3960601 #### [facility] [address] [place] [address] Hematocrit (Bld) [Volume fraction] 36.6 % Normal 34.0-46.0 [facility] Comment on above: Performed By: #### 1 5948736, 5727320, 7251333, 6961763, 0591745, 9688084, 91356812, 6327743 #### [facility] [address] [place] [address] Hemoglobin (Bld) [Mass/Vol] 12.2 g/dL Normal 12.0-16.0 [facility] Comment on above: Performed By: #### 1 5840679, 5079302, 9713172, 3077034, 3563621, 3047862, 27523379, 8090706 #### [facility] [address] [place] [address] MCH (RBC) [Entitic mass] 29.8 pg Normal 27.0-34.0 [facility] Comment on above: Performed By: #### 1 6697111, 5873425, 3194984, 7835292, 1194787, 0164666, 93035671, 1471402 #### [facility] [address] [place] [address] MCHC (RBC) [Mass/Vol] 33.3 g/dL Normal 31.4-36.0 [facility] Comment on above: Performed By: #### 1 0482105, 0786570, 0615692, 7592412, 3789961, 6851578, 45986450, 5471749 #### [facility] [address] [place] [address] MCV (RBC) [Entitic vol] 89.5 fL Normal 80.0-100.0 [facility] Comment on above: Performed By: #### 1 4890103, 7267447, 1686948, 5821494, 4827381, 0558801, 57532876, 7072379 #### [facility] [address] [place] [address] Platelet mean volume (Bld) [Entitic vol] 7.4 fL Normal 6.4-10.8 [facility] Comment on above: Performed By: #### 1 2000693, 0030389, 9599843, 3224062, 2770039, 7638312, 77200240, 2991005 #### [facility] [address] [place], [place] [address] Platelets (Bld) [#/Vol] 278.0 E9/L Normal 150.0-500.0 [facility] Comment on above: Performed By: #### 1 0277217, 5492174, 5975972, 8204728, 8296976, 4635065, 03133751, 4662225 #### [facility] [address] [place], [place] [address] RBC (Bld) [#/Vol] 4.1 E12/L Low 4.3-5.9 [facility] Comment on above: Performed By: #### 1 7133011, 4622003, 9360985, 1959465, 4798281, 5717779, 39398927, 1003232 #### [facility] [address] [place] [address] WBC corrected for nucl RBC Auto (Bld) [#/Vol] 7.0 E9/L Normal 4.0-11.0 [facility] Comment on above: Performed By: #### 1 7580073, 4068986, 1403123, 6780588, 8183610, 4926213, 36353540, 1622090 #### [facility] [address] [place], [place] [address] Consent for Blood Transfusio non 05-26-2020 Consent for Blood Transfusion [id number]#1.00CD:127 Normal [facility] Consent for Treatmenton Consent for Treatment [id number]#1.00CD:127 Normal [facility] ED Clinical Summaryon 2019 ED Clinical Summary (Inserted Image. Sachi ble to display) [address] [address] ED Clinical Summary Person Information Name: SUKHDEV SCHWARTZ Stacey/[facility] Age: 34 Years : 1985 Sex: Female Language: Martiniquais PCP: LOLI MATIAS MD Marital Status: Phone: [phone] MRN: Visit Id: Visit Reason: Nausea; Dizziness; [...] 05/26/2020 12:32:48 ADDRESS: [address] [facility] [id number] [facility] DOC NOTES: MEDICAL INFORMATION: Prescriptions Given: Medications [...] Follow up: With: Address: When: Davie Grijalva [facility] [address], [facility] [address], [place] [id number] [facility] (1) 05/27/2020 8:45 AM Comments: Return to ED if symptoms worsen. Drink lots of fluids. Return if you have worsening bleeding, pass out, chest pain, shortnes of breath or any other problems. DIAGNOSIS: 1:Menorrhagia Normal [facility] ED Note-Physicianon 05-26-20 ED Note-Physician Basic [...] % (05/26/20:25:00) Lymph Auto: 22.2 % (05/26/20::) [place] Auto: 6.7 % (05/26/20:25:00) Eos Auto: 2 % (05/26/20::) Basophil Auto: 0.8 % (05/26/20::) Neutro Absolute: 4.8 E9/L (05/26/20:25:00) Lymph Absolute: 1.6 E9/L (05/26/20:25:) [place] Absolute: 0.5 E9/L (05/26/20::) Eos Absolute: 0.1 [...] Ultrasound Performed Signed By: Faraz Carter DO [facility] Comment on above: Result Comment: Elec [...] hospitalization. HOME CARE INSTRUCTIONS ? Only take cgqb-lrv-phjmsri or prescription medicines as directed by your [...] Document Reviewed: 03/25/2014 ExitCare? Patient Information ?2015 3yy game platform. This information is not intended to replace advice given to you by your health care provider. Make sure you discuss any questions you have with your health care provider. Normal [facility] ED Patient Summaryon 020 ED Patient Summary (Inserted Image. Sachi ble to display) [place] [id number] Patient Discharge Instructions Person Information Name: SUKHDEV SCHWARTZ Age: 34 Years Arrival Date: 05/26/2020 11:09:13 Discharge Diagnosis: 1:Menorrhagia Primary Care Physician: LOLI MATIAS MD Provider Information Primary Provider: Carline Cain DO Advanced Check Examiner:None The exam and treatment you received in the Emergency Department were for an urgent problem and are not intended as complete care. It is important that you follow up with a doctor, nurse practitioner, or physician?s sales support assistant for ongoing care. If your symptoms [...] Follow-up Instructions: With: Address: When: Davie ISSA, [facility] [address], [facility] [place] [id number] [facility] (1) 05/27/2020 8:45 AM Comments: Return to [...] opioids can be used to help relieve outgcasp-qo-bgzthv pain and are often prescribed following a [...] be struggling with addiction, tell your health healthcare corporate account director and ask for guidance or call [facility]?S National Helpline at 8-571-048-JMBO. v Source: [place] Department of Health and Human Services/Center for Disease Control & Prevention [facility] Medications Given: Medication Dose Route Sodium Chloride 0.9% intravenous solution 1000.00 mL Initial Volume 1000.00 mL/hr IV Right Antecubit [place] Medication Information: Medications to Continue with No [...] Comment: Pharmacy Information: Thank you for choosing [facility] Patient Education Materials: Menorrhagia Menorrhagia is [...] hospitalization. HOME CARE INSTRUCTIONS ? Only take tcsm-mjn-yzhmnwl or prescription medicines as directed by your [...] Document Reviewed: 03/25/2014 ExitCare? Patient Information ?2015 3yy game platform. This information is not intended to replace advice given to you by your health care provider. Make sure you discuss any questions you have with your health care provider. JAMES Bain BRITTANY F , have received the following patient education materials/instructions and have verbalized understanding: Patient Education Materials: Menorrhagia Follow-up Instructions: With: Address: When: Davie Grijalva [address] [place] [address], [place] [address], [place] [address] [facility] (1) 05/27/2020 8:45 AM Comments: Return to ED if symptoms worsen. Drink lots of fluids. Return if you have worsening bleeding, pass out, chest pain, shortnes of breath or any other problems. Patient Signature __ Date Clinician/Nurse Signature Date 05/26/2020 12:32:58 Normal [facility] FFPon 05-26-2020 # of Units 2 [facility] Comment on above: Result Comment: 2019 17:56 [id number] Blood product ready and called to Jaki/OB at 05/26/2020 17:56:49 EDT by AL. Performed By: #### 1 4173061, 4703938, 8486638, 6803213, 5399792, 2515692, 68312063, 7041435 #### [facility] [address] [place] [address] Date Required [id number] [facility] Comment on above: Performed By: #### 1 1537676, 3396939, 9146836, 4631688, 0293730, 7301839, 49934601, 1464467 #### [facility] [address] [place] [address] Order to Transfuse YES [facility] Comment on above: Performed By: #### 1 0361880, 9548735, 7867646, 7539537, 3578728, 6311644, 07687500, 2125873 #### [facility] [address] [place] [address] Hematocriton 05-26-2020 Hematocrit (Bld) [Volume fraction] 27.0 % Low 34.0-46.0 [facility] Comment on above: Performed By: #### 1 7015596, 8764392, 8423117, 8504082, 0813425, 6034415, 89087982, 0137959 #### [facility] [address] [place] [address] Hemoglobinon 05-26-2020 Hemoglobin (Bld) [Mass/Vol] 9.0 g/dL Low 12.0-16.0 [facility] Comment on above: Performed By: #### 1 8657975, 3651799, 2638727, 1510320, 5531912, 9701273, 36487432, 6896762 #### [facility] [address] [place] [address] Hep Func Panelon 05-26-2020 Albumin [Mass/Vol] 1.4 g/dL Normal 1.1-2.2 [facility] Comment on above: Performed By: #### 1 0693842, 4014383, 1229197, 2529857, 8221969, 8944478, 06047937, 6293963 #### [facility] [address] [place] [address] Albumin [Mass/Vol] 4.1 g/dL Normal 3.3-5.0 [facility] Comment on above: Performed By: #### 1 5852701, 4114488, 6381308, 7949682, 7606638, 5721211, 58587622, 9064749 #### [facility] [address] [place] [address] ALP [Catalytic activity/Vol] 47 Int._Unit/L Normal 21-98 [facility] Comment on above: Performed By: #### 1 1513870, 2397799, 0174935, 3418597, 9489211, 0404502, 81518836, 2509738 #### [facility] [address] [place] [address] ALT No additional P-5'-P [Catalytic activity/Vol] 10 Int._Unit/L Normal 6-46 [facility] Comment on above: Performed By: #### 1 5070350, 0159365, 0181798, 3113866, 8000237, 2140794, 64338600, 1619617 #### [facility] [address] [place] [address] AST [Catalytic activity/Vol] 12 Int._Unit/L Normal 5-43 [facility] Comment on above: Performed By: #### 1 9795356, 3497009, 2228724, 5336484, 9584794, 7735910, 13974095, 7865776 #### [facility] [address] [place] [address] Bilirubin [Mass/Vol] 0.8 mg/dL Normal 0.0-1.1 [facility] Comment on above: Performed By: #### 1 3286664, 4849597, 1408810, 3000831, 1107381, 5379505, 75653658, 2838388 #### [facility] [address] [place] [address] Bilirubin.direct [Mass/Vol] 0.7 mg/dL Normal 0.1-0.9 [facility] Comment on above: Performed By: #### 1 0578467, 6459056, 7827919, 9196678, 8635133, 3402557, 30014956, 7415253 #### [facility] [address] [place] [address] Bilirubin.direct [Mass/Vol] 0.1 mg/dL Normal 0.1-0.4 [facility] Comment on above: Performed By: #### 1 9621535, 5669474, 9173035, 7865078, 9855704, 7699758, 19081138, 4684366 #### [facility] [address] [place] [address] Globulin (S) [Mass/Vol] 2.9 g/dL Normal 1.4-4.0 [facility] Comment on above: Performed By: #### 1 2587317, 6667175, 0672047, 1846563, 8848485, 8462654, 56830167, 8804262 #### [facility] [address] [place] [address] Protein [Mass/Vol] 7.0 g/dL Normal 6.0-7.8 [facility] Comment on above: Performed By: #### 1 9208453, 8672740, 8908298, 3556426, 7480697, 8955296, 49313156, 2413913 #### [facility] [address] [place] [address] Main OR PACU I Recordon Main OR PACU I Record PACU Phase I Document Type FT Summary Primary Physician: Davie Grijalva MD Finalized Date/Time: 05/26/20 20:48:43 Pt. Name: SUKHDEV SCHWARTZ/Sex: 1985 Female Med Rec #: [id number] Physician: Davie Grijalva MD Financial #: [id number] Pt. Type: O Room/Bed: N410/01 Admit/Disch: 05/26/20 [...] By: Lauren Reed RN 05/26/20 20:48 Normal [facility] Main OR Preoperative Recordo n 05-26-2020 Main OR Preoperative Record Holding Area Document Type FT Summary Primary Physician: Davie Grijalva MD Finalized Date/Time: 05/26/20 20:04:05 Pt. Name: SUKHDEV SCHWARTZ /Sex: 1985 Female Med Rec #: [id number] Physician: Davie Grijalva MD Financial #: [id number] Pt. Type: O Room/Bed: [facility]/ Admit/Disch: 05/26/20 11:09:13 - Institution: [...] By: Rena Castelan RN 05/26/20 20:04 Normal [facility] Monitor Recordon 05-26-2020 Monitor Record [id number]#1.00CD:127 Normal [facility] Monitor Record [id number]#1.00CD:127 Normal [facility] Monitor Record [id number]#1.00CD:127 Normal [facility] Monitor Record [id number]#1.00CD:127 Normal [facility] Monitor Record [id number]#1.00CD:127 Normal [facility] Monitor Record [id number]#1.00CD:127 Normal [facility] PT & PTTon 05-26-2020 aPTT Coag (PPP) [Time] 30.1 second(s) Normal 25.1-36.5 [facility] Comment on above: Result Comment: Hepa rin therapeutic range (represented by Anti-Factor Xa activity of 0.2 - 0.4 U/mL) corresponds to PTT of 56.6 - 109.0 sec. Performed By: #### 1 3459069, 9558053, 7616617, 2415942, 0064000, 1415835, 25686491, 7522769 #### [facility] [address] [place] [address] INR Coag (PPP) [Relative time] 1.1 {INR} [facility] Comment on above: Result Comment: INR results are specifically intended to assess patients stabilized on long-term Anticoagulation therapy suggested INR?s ?Less Intensive Anticoagulation? 2.0 ? 3.0 Conventional Range 3.0 ? 4.5 Performed By: #### 1 3649082, 7998212, 5091788, 6856745, 0123696, 8226776, 85435880, 5429608 #### [facility] [address] [place] [address] PT Coag (PPP) [Time] 12.5 second(s) Normal 10.2-12.9 [facility] Comment on above: Performed By: #### 1 3602536, 0605636, 3505938, 2686891, 5497669, 5001632, 70359578, 0166500 #### [facility] [address] [place] [address] Progesteroneon 05-26-2020 Progesterone [Mass/Vol] 0.90 ng/mL [facility] Comment on above: Result Comment: REFE RENCE RANGE Males 0.14-2.06 ng/mL Non- Females Follicular 0.10-0.60 ng/mL Luteal 3.00-17.5 ng/mL Midluteal 3.30-18.6 ng/mL Post-Menopausal 0.10-0.40 ng/mL First Trimester 8.30-66.5 ng/mL Second Trimester 18.9-66.1 ng/mL Third Trimester 35.8-312.4 ng/mL Performed By: #### 1 5526369, 2784019, 6206153, 6079060, 6953857, 3794891, 64588329, 2852487 #### [facility] [address] [place] [address] Progress Note-Nurseon 2019 Progress Note-Nurse Blood obtained per Rhoda Grijalva order and patient taken to surgery. Blood given to Lauren in surgery. Normal [facility] Progress Note-Nurse Dr. Grijalva in at [facility] with pelvic tray and patient and patient begin to bleed heavily and pt heart rate decreased to 50's and patient BP registered in the 60's. pt pale and clammy. Pt in Trendelenburg and fluids open wide. Patient blood pressure up to 100's and HR in the 70's and Dr. Grijalva at [facility] Normal [facility] Progress Note-Nurse Ultrasound at [facility] de to perform beside US Normal [facility] Progress Note-Nurse Patient coloring imp roved at this time and patient VS improved. Dr. [place] aware and awaiting US Normal [facility] Progress Note-Nurse This nurse and Elsie [...] started per Altagracia Godinez. Dr. Cain at [facility]. Patient verbalized she is starting to feel better at this time Normal [facility] Progress Note-Physicianon Progress Note-Physician Patient: SUKHDEV [...] q6hr, # 15 tab(s), Refills(s) 0, Pharmacy: [facility] #16 Documented Medications Documented Multivitamins: 1 tab(s), [...] list: All Problems Pancreatitis / SNOMED CT 010743999 / Confirmed Incomplete miscarriage / SNOMED CT 572561443 / Confirmed missed Ovarian dysfunction / SNOMED CT 92975571 / Confirmed Hypothyroidism / SNOMED CT 77913009 / Confirmed, Active Problems (4) Hypothyroidism Incomplete miscarriage Ovarian dysfunction Pancreatitis Histories Past Medical History: No active or resolved past medical history items have been selected or recorded. Family History: Diabetes mellitus type 2 Mother Thyroid cancer Mother Sister Procedure history: Dilation and curettage ([id number]) on 10/20/2019 at 33 Years. Comments: 10/20/2019 19:10 Kat Rosenbaum RN DILATION & SUCTION CURETTAGE Cholecystectomy ([id number]) on 07/19/2019 at 33 Years. DIAGNOSTIC LAPAROSCOPY [...] 26) Cr 0.7 (MAY 26) . Plan [place] [employer]esthesi[employer] (ASA) physical status classification: Class III, E. Anesthetic Preoperative Plan Anesthesia: General. . Anesthetic plan, risks, benefits, and alternatives discussed with the patient and/or family. Pt. and/or family present and agree to proceed as planned.. Discussed the importance of abstaining from tobacco products, and offered counseling if desired. Normal [facility] Comment on above: Result Comment: Elec tronically Signed By: Jerel Martin JR, DO\.yvonne\Date and Time Signed: 05/26/20 17:16 EDT [facility] 05-26-2020 # of Units 4 [facility] Comment on above: Result Comment: 2019 18:39 [id number] Blood product ready and called to Jaki/OB at 05/26/2020 18:39:16 EDT by AL. Performed By: #### 1 7099223, 8404728, 2414445, 5912040, 5816449, 7067173, 42706883, 1483357 #### [facility] [address] [place] [address] Date Required 05-26-2020 [facility] Comment on above: Performed By: #### 1 6090860, 0090569, 6556747, 0637765, 6802680, 4645015, 38117502, 9650846 #### [facility] [address] [place] [address] Product Type None Required [facility] Comment on above: Performed By: #### 1 3437092, 0208276, 0153408, 6193053, 7583188, 2577987, 88273496, 4716137 #### [facility] [address] [place] [address] # of Units 1 [facility] Comment on above: Result Comment: 2019 16:29 [id number] Blood product ready and called to Lauren at 05/26/2020 16:29:10 EDT by ALElayne Performed By: #### 1 1754532, 2135050, 1388234, 0676353, 6556744, 2136415, 00158318, 5251992 #### [facility] [address] [place] [address] # of Units 2 [facility] Comment on above: Performed By: #### 1 9991061, 9274543, 0808951, 5248791, 3052644, 1550411, 34997974, 9685328 #### [facility] [address] [place], [place] [address] Date Required 05/26/2020 [facility] Comment on above: Performed By: #### 1 6530356, 0381156, 5836035, 3161982, 0995373, 2671725, 89739918, 3580227 #### [facility] [address] [place], [place] [address] Date Required [facility] Comment on above: Performed By: #### 1 2585188, 0361692, 2902296, 2563375, 8779300, 2498703, 52798544, 5809696 #### [facility] [address] [place] [address] Product Type None Required [facility] Comment on above: Performed By: #### 1 7788977, 5496197, 2442144, 1770319, 7028619, 2070746, 04410108, 0765774 #### [facility] [address] [place] [address] # of Units 1 [facility] Comment on above: Result Comment: 2019 15:50 [id number] Blood product ready and called to Topher/ER at 05/26/2020 15:49:51 EDT by AL. Performed By: #### 1 6051355, 3668231, 1876812, 2197477, 5206045, 6055068, 86864329, 2160553 #### [facility] [address] [place] [address] Date Required 05/26/2020 [facility] Comment on above: Performed By: #### 1 0758517, 0288354, 6688084, 6188332, 2196820, 9317812, 77231706, 3371068 #### [facility] [address] [place] [address] Product Type None Required [facility] Comment on above: Performed By: #### 1 4492329, 9563270, 7204082, 7148081, 2779661, 3148886, 75971686, 9988353 #### [facility] [address] [place] [address] US 1st Trimesteron 05-26-2020 US 1st Trimester [...] ? SAB 2 Transabdominal Ultrasound Performed Normal [facility] eGFRon 05-26-2020 GFR/1.73 sq M predicted among blacks MDRD (S/P/Bld) [Vol rate/Area] mL/min/{1.73_m2} Normal >=59 [facility] Comment on above: Order Comment: Order added by Discern Expert. Result Comment: eGFR is race adjusted. AA=. Performed By: #### 1 9079720, 8053135, 2535288, 5076272, 3001167, 9975817, 65832405, 2156766 #### [facility] [address] [place] [address] GFR/1.73 sq M predicted among non-blacks MDRD (S/P/Bld) [Vol rate/Area] mL/min/{1.73_m2} Normal >=59 [facility] Comment on above: Order Comment: Order added by Discern Expert. Result Comment: City Designer ivan kidney disease could be indicated at eGFR's of less than 60 mL/min/1.73m2. Kidney failure is indicated at less than 15 mL/min/1.73m2. Performed By: #### 1 6384882, 0825088, 1112181, 6739910, 7331221, 1676937, [id number], [id number] #### [facility] [address] [place] [address] Coding Summary.on 01-23-2020 Coding Summary. CODING DATE: 020 FINAL [facility] STATUS: Home (Routine DC) PAYOR: Leela [...] Milton Date Saved: 01/23/2020 12:44 pm Normal [facility] Estradiolon 01-23-2020 E2 [Mass/Vol] 1822.0 pg/mL [facility] Comment on above: Result Comment: Adul t Female: Follicular phase 12.5 - 166.0 Ovulation phase 85.8 - 498.0 Luteal phase 43.8 - 211.0 Postmenopausal <6.0 - 54.7 1st trimester 215.0 - >4300.0 Girls (1-10 years) 6.0 - 27.0 Mal ECLIA methodology Performed at: [facility] [id number] PhD Subhash Coronel Performed By: #### 1 [id number], 8443118, 0916077, 5116651, 2106569, 0372612, 42273438, 3596192 #### [facility] [address] [place] [address] BhCG Quanton 01-22-2020 [place] [address] m[IU]/mL High 1-3 F [facility] Comment on above: Result Comment: GEST ATIONAL AGE HCG RANGE (mIU/mL) NON- <1-3 0.2-1 WEEKS 5-50 1-2 WEEKS 50-500 2-3 WEEKS 100-5,000 3-4 WEEKS 500-10,000 4-5 WEEKS 1,000-50,000 5-6 WEEKS 10,000-100,000 6-8 WEEKS 15,000-200,000 8-12 WEEKS 10,000-100,000 Performed By: #### 1 5528406, 3151067, 9495119, 5641633, 7960290, 2466718, 09412787, 1148074 #### [facility] [address] [place] [address] Progesteroneon 01-22-2020 Progesterone [Mass/Vol] 21.50 ng/mL [facility] Comment on above: Result Comment: REFE RENCE RANGE Males 0.14-2.06 ng/mL Non- Females Follicular 0.10-0.60 ng/mL Luteal 3.00-17.5 ng/mL Midluteal 3.30-18.6 ng/mL Post-Menopausal 0.10-0.40 ng/mL First Trimester 8.30-66.5 ng/mL Second Trimester 18.9-66.1 ng/mL Third Trimester 35.8-312.4 ng/mL Performed By: #### 1 0828019, 1011134, 8094757, 5416081, 9397899, 0270389, 33590437, 4266065 #### [facility] [address] [place] [address] Coding Summary.on 01-16-2020 Coding Summary. CODING DATE: 020 FINAL [facility] STATUS: Home (Routine DC) PAYOR: Leela [...] CphT Date Saved: 01/16/2020 07:40 am Normal [facility] Estradiolon 01-16-2020 E2 [Mass/Vol] 1275.0 pg/mL [facility] Comment on above: Result Comment: Adul t Female: Follicular phase 12.5 - 166.0 Ovulation phase 85.8 - 498.0 Luteal phase 43.8 - 211.0 Postmenopausal <6.0 - 54.7 1st trimester 215.0 - >4300.0 Girls (1-10 years) 6.0 - 27.0 Mal ECLIA methodology Performed at: [facility] [address] [id number] PhD Subhash Coronel Performed By: #### 1 [id number], 4492942, 1375867, 4691931, 7867476, 9115693, 68929241, 5446950 #### [facility] [address] [place] [address] BhCG Quanton 01-15-2020 HCG.beta subunit Qn 4061 m[IU]/mL High 1-[address] [facility] Comment on above: Result Comment: GEST ATIONAL AGE HCG RANGE (mIU/mL) NON- <1-3 0.2-1 WEEKS 5-50 1-2 WEEKS 50-500 2-3 WEEKS 100-5,000 3-4 WEEKS 500-10,000 4-5 WEEKS 1,000-50,000 5-6 WEEKS 10,000-100,000 6-8 WEEKS 15,000-200,000 8-12 WEEKS 10,000-100,000 Performed By: #### 1 8556448, 3187819, 1602269, 7415985, 4195614, 8085591, 72010871, 7740561 #### [facility] [address] [place] [address] Progesteroneon 01-15-2020 Progesterone [Mass/Vol] 32.10 ng/mL [facility] Comment on above: Result Comment: REFE RENCE RANGE Males 0.14-2.06 ng/mL Non- Females Follicular 0.10-0.60 ng/mL Luteal 3.00-17.5 ng/mL Midluteal 3.30-18.6 ng/mL Post-Menopausal 0.10-0.40 ng/mL First Trimester 8.30-66.5 ng/mL Second Trimester 18.9-66.1 ng/mL Third Trimester 35.8-312.4 ng/mL Performed By: #### 1 7821105, 8449104, 1264145, 8458246, 8138951, 4302730, 38377336, 7286824 #### [facility] [address] [place] [address] Coding Summary.on 01-09-2020 Coding Summary. CODING DATE: 020 FINAL [facility] STATUS: Home (Routine DC) PAYOR: Leela [...] CphT Date Saved: 01/09/2020 07:10 am Normal [facility] Estradiolon 01-09-2020 E2 [Mass/Vol] 572.2 pg/mL [facility] Comment on above: Result Comment: Adul t Female: Follicular phase 12.5 - 166.0 Ovulation phase 85.8 - 498.0 Luteal phase 43.8 - 211.0 Postmenopausal <6.0 - 54.7 1st trimester 215.0 - >4300.0 Girls (1-10 years) 6.0 - 27.0 Mal ECLIA methodology Performed at: [facility] [address] [id number] PhD Subhash Coronel Performed By: #### 1 9790178, 2246780, 4101711, 5635596, 4493761, 8943941, 58862936, 9845669 #### [facility] [address] [place] [address] [facility] Quant[facility] 01-08-2020 HCG.beta subunit Qn 898 m[IU]/mL High 1-3 Fis [facility] Comment on above: Result Comment: GEST ATIONAL AGE HCG RANGE (mIU/mL) NON- <1-3 0.2-1 WEEKS 5-50 1-2 WEEKS 50-500 2-3 WEEKS 100-5,000 3-4 WEEKS 500-10,000 4-5 WEEKS 1,000-50,000 5-6 WEEKS 10,000-100,000 6-8 WEEKS 15,000-200,000 8-12 WEEKS 10,000-100,000 Performed By: #### 1 5943775, 2813306, 7591710, 9299181, 7982223, 9368539, 49444950, 3088486 #### [facility] [address] [place] [address] Progesteroneon 01-08-2020 Progesterone [Mass/Vol] 27.90 ng/mL [facility] Comment on above: Result Comment: REFE RENCE RANGE Males 0.14-2.06 ng/mL Non- Females Follicular 0.10-0.60 ng/mL Luteal 3.00-17.5 ng/mL Midluteal 3.30-18.6 ng/mL Post-Menopausal 0.10-0.40 ng/mL First Trimester 8.30-66.5 ng/mL Second Trimester 18.9-66.1 ng/mL Third Trimester 35.8-312.4 ng/mL Performed By: #### 1 9086897, 9469562, 5216048, 3483044, 0341589, 5677563, 22336526, 0011159 #### [facility] [address] [place] [address] Coding Summary.on 01-02-2020 Coding Summary. CODING DATE: 020 FINAL [facility] STATUS: Home (Routine DC) PAYOR: [place] ADMIT DX: REASON FOR VISIT DX: Z32.01 [...] CphT Date Saved: 01/02/2020 10:23 am Normal [facility] Estradiolon 01-02-2020 E2 [Mass/Vol] 1694.0 pg/mL [facility] Comment on above: Result Comment: Adul t Female: Follicular phase 12.5 - 166.0 Ovulation phase 85.8 - 498.0 Luteal phase 43.8 - 211.0 Postmenopausal <6.0 - 54.7 1st trimester 215.0 - >4300.0 Girls (1-10 years) 6.0 - 27.0 Mal ECLIA methodology Performed at: [facility] [id number] PhD Subhash Coronel Performed By: #### 1 6963244, 7747304, 4926266, 1368407, 4361462, 1020405, 16515123, 7679888 #### [facility] [address] [place] [address] [facility] Quanton 01-01-2020 HCG.beta subunit Qn 124 m[IU]/mL High 1-3 Fis [facility] Comment on above: Result Comment: GEST ATIONAL AGE HCG RANGE (mIU/mL) NON- <1-3 0.2-1 WEEKS 5-50 1-2 WEEKS 50-500 2-3 WEEKS 100-5,000 3-4 WEEKS 500-10,000 4-5 WEEKS 1,000-50,000 5-6 WEEKS 10,000-100,000 6-8 WEEKS 15,000-200,000 8-12 WEEKS 10,000-100,000 Performed By: #### 1 4689937, 3493321, 2401758, 0590731, 4471887, 6661673, 58044919, 5271817 #### [facility] [address] [place] [address] Coding Summary.on 01-01-2020 Coding Summary. CODING DATE: 020 FINAL [facility] STATUS: Home (Routine DC) PAYOR: [place] ADMIT DX: REASON FOR VISIT DX: E28.9 [...] CphT Date Saved: 01/01/2020 02:22 pm Normal [facility] Progesteroneon 01-01-2020 Progesterone [Mass/Vol] 23.10 ng/mL [facility] Comment on above: Result Comment: REFE RENCE RANGE Males 0.14-2.06 ng/mL Non- Females Follicular 0.10-0.60 ng/mL Luteal 3.00-17.5 ng/mL Midluteal 3.30-18.6 ng/mL Post-Menopausal 0.10-0.40 ng/mL First Trimester 8.30-66.5 ng/mL Second Trimester 18.9-66.1 ng/mL Third Trimester 35.8-312.4 ng/mL Performed By: #### 1 5765361, 1518780, 6675811, 8827600, 2895418, 6337072, 95813380, 1589162 #### [facility] [address] [place] [address] Coding Summary.on 12-31-2019 Coding Summary. CODING DATE: 020 [facility] STATUS: Home (Routine DC) PAYOR: [place] ADMIT DX: REASON FOR VISIT DX: E28.9 [...] [place]nam Date Saved: 12/31/2019 08:09 am Normal [facility] Estradiolon 12-30-2019 E2 [Mass/Vol] 1478.0 pg/mL [facility] Comment on above: Result Comment: Adul t Female: Follicular phase 12.5 - 166.0 Ovulation phase 85.8 - 498.0 Luteal phase 43.8 - 211.0 Postmenopausal <6.0 - 54.7 1st trimester 215.0 - >4300.0 Girls (1-10 years) 6.0 - 27.0 Mal ECLIA methodology Performed at: [facility] [address] [id number] PhD Subhash Coronel Performed By: #### 1 6001658, 0309701, 9843018, 2503027, 7957979, 0144135, 42043701, 5287366 #### [facility] [address] [place] [address] BhCG Quanton 12-29-2019 HCG.beta subunit Qn 34 m[IU]/mL High 1-3 [facility] Comment on above: Result Comment: GEST ATIONAL AGE HCG RANGE (mIU/mL) NON- <1-3 0.2-1 WEEKS 5-50 1-2 WEEKS 50-500 2-3 WEEKS 100-5,000 3-4 WEEKS 500-10,000 4-5 WEEKS 1,000-50,000 5-6 WEEKS 10,000-100,000 6-8 WEEKS 15,000-200,000 8-12 WEEKS 10,000-100,000 Performed By: #### 1 5239537, 2897636, 8280481, 8263380, 8544631, 9467514, 43728998, 7370081 #### [facility] [address] [place] [address] Progesteroneon 12-29-2019 Progesterone [Mass/Vol] 21.80 ng/mL [facility] Comment on above: Result Comment: REFE RENCE RANGE Males 0.14-2.06 ng/mL Non- Females Follicular 0.10-0.60 ng/mL Luteal 3.00-17.5 ng/mL Midluteal 3.30-18.6 ng/mL Post-Menopausal 0.10-0.40 ng/mL First Trimester 8.30-66.5 ng/mL Second Trimester 18.9-66.1 ng/mL Third Trimester 35.8-312.4 ng/mL Performed By: #### 1 3700995, 6514712, 5360506, 8422946, 0202851, 9980235, 95232592, 2942547 #### [facility] [address] [place] [address] BhCG Quanton 12-27-2019 HCG.beta subunit Qn 19 m[IU]/mL High 1-3 [facility] Comment on above: Result Comment: GEST ATIONAL AGE HCG RANGE (mIU/mL) NON- <1-3 0.2-1 WEEKS 5-50 1-2 WEEKS 50-500 2-3 WEEKS 100-5,000 3-4 WEEKS 500-10,000 4-5 WEEKS 1,000-50,000 5-6 WEEKS 10,000-100,000 6-8 WEEKS 15,000-200,000 8-12 WEEKS 10,000-100,000 Performed By: #### 1 2096337, 6121279, 8223074, 3689624, 7373558, 0266865, 67397603, 0338963 #### [facility] [address] [place] [address] Progesteroneon 12-27-2019 Progesterone [Mass/Vol] 22.60 ng/mL [facility] Comment on above: Result Comment: REFE RENCE RANGE Males 0.14-2.06 ng/mL Non- Females Follicular 0.10-0.60 ng/mL Luteal 3.00-17.5 ng/mL Midluteal 3.30-18.6 ng/mL Post-Menopausal 0.10-0.40 ng/mL First Trimester 8.30-66.5 ng/mL Second Trimester 18.9-66.1 ng/mL Third Trimester 35.8-312.4 ng/mL Performed By: #### 1 8712720, 3369376, 7190695, 1304366, 5209871, 4531773, 30011267, 0430855 #### [facility] [address] [place] [address] Coding Summary.on 12-25-2019 Coding Summary. CODING DATE: 020 FINAL [facility] STATUS: Home (Routine DC) PAYOR: Leela [...] CphT Date Saved: 12/22/2019 04:17 pm Normal [facility] Coding Summary. CODING DATE: 020 [facility] STATUS: PAYOR: Leela ADMIT DX: REASON [...] CphT Date Saved: 12/22/2019 04:17 pm Normal [facility] Estradiolon 12-23-2019 E2 [Mass/Vol] 1555.0 pg/mL [facility] Comment on above: Result Comment: Adul t Female: Follicular phase 12.5 - 166.0 Ovulation phase 85.8 - 498.0 Luteal phase 43.8 - 211.0 Postmenopausal <6.0 - 54.7 1st trimester 215.0 - >4300.0 Girls (1-10 years) 6.0 - 27.0 Mal ECLIA methodology Performed at: [facility] [id number] PhD Subhash Coronel Performed By: #### 1 6172316, 8334576, 2303052, 2113182, 5694275, 4124791, 23517163, 5227598 #### [facility] [address] [place] [address] Progesteroneon 12-22-2019 Progesterone [Mass/Vol] 25.40 ng/mL [facility] Comment on above: Result Comment: REFE RENCE RANGE Males 0.14-2.06 ng/mL Non- Females Follicular 0.10-0.60 ng/mL Luteal 3.00-17.5 ng/mL Midluteal 3.30-18.6 ng/mL Post-Menopausal 0.10-0.40 ng/mL First Trimester 8.30-66.5 ng/mL Second Trimester 18.9-66.1 ng/mL Third Trimester 35.8-312.4 ng/mL Performed By: #### 1 1052585, 0452999, 2536338, 9251980, 4380897, 8876242, 04991042, 5103447 #### [facility] [address] [place] [address] Coding Summary.on 12-11-2019 Coding Summary. CODING DATE: 020 FINAL [facility] STATUS: Home (Routine DC) PAYOR: Leela [...] CphT Date Saved: 12/11/2019 12:51 pm Normal [facility] Estradiolon 12-09-2019 E2 [Mass/Vol] 1486.0 pg/mL [facility] Comment on above: Result Comment: Adul t Female: Follicular phase 12.5 - 166.0 Ovulation phase 85.8 - 498.0 Luteal phase 43.8 - 211.0 Postmenopausal <6.0 - 54.7 1st trimester 215.0 - >4300.0 Girls (1-10 years) 6.0 - 27.0 Mal ECLIA methodology Performed at: [facility] [id number] PhD Subhash Coronel Performed By: #### 1 1524388, 1079327, 7288583, 1898364, 3564262, 3605875, 03227564, 4075251 #### [facility] [address] [place] [address] LHon 12-09-2019 Lutropin Qn 6.2 m[IU]/mL [facility] Comment on above: Result Comment: Adul t Female: Follicular phase 2.4 - 12.6 Ovulation phase 14.0 - 95.6 Luteal phase 1.0 - 11.4 Postmenopausal 7.7 - 58.5 Performed at: [facility] [id number] PhD Subhash Coronel Performed By: #### 1 0920788, 6774248, 9272519, 3886404, 1901435, 7937329, 35302935, 6528686 #### [facility] [address] [place] [address] Progesteroneon 12-08-2019 Progesterone [Mass/Vol] ng/mL [facility] Comment on above: Result Comment: REFE RENCE RANGE Males 0.14-2.06 ng/mL Non- Females Follicular 0.10-0.60 ng/mL Luteal 3.00-17.5 ng/mL Midluteal 3.30-18.6 ng/mL Post-Menopausal 0.10-0.40 ng/mL First Trimester 8.30-66.5 ng/mL Second Trimester 18.9-66.1 ng/mL Third Trimester 35.8-312.4 ng/mL Performed By: #### 1 3933199, 2506359, 5030852, 2536960, 6832681, 4169834, 17820168, 3679193 #### [facility] [address] [place] [address] US Pelvis Non-OB Completeon 12-08-2019 US Pelvis [...] Transabdominal Ultrasound Performed Transvaginal Ultrasound Performed Normal [facility] US Transvaginal Non-OBon US Transvaginal Non-OB Exam Date/Time: 12/08/2019 07:42 EST Reason for Exam: OVARIAN DYSFUNCTION Report Please refer to prior transabdominal pelvic sonogram report. FINAL REPORT Dictated: 12/08/2019 12:35 pm Citlaly Buchanan MD Signed (Electronic Signature): 12/08/2019 12:35 pm Signed by: Citlaly Buchanan MD Transcribed by: MADISON Technologist: JESSICA Normal [facility] Coding Summary.on 12-05-2019 Coding Summary. CODING DATE: 020 FINAL [facility] STATUS: Home (Routine DC) PAYOR: Leela [...] CphT Date Saved: 12/05/2019 10:15 am Normal [facility] Estradiolon 12-05-2019 E2 [Mass/Vol] 1328.0 pg/mL [facility] Comment on above: Result Comment: Adul t Female: Follicular phase 12.5 - 166.0 Ovulation phase 85.8 - 498.0 Luteal phase 43.8 - 211.0 Postmenopausal <6.0 - 54.7 1st trimester 215.0 - >4300.0 Girls (1-10 years) 6.0 - 27.0 Mal ECLIA methodology Performed at: [facility] [address] [id number] PhD Subhash Coronel Performed By: #### 1 7368910, 1850421, 1805098, 3558573, 2036486, 0183264, 88313886, 1151836 #### [facility] [address] [place] [address] LHon 12-05-2019 Lutropin Qn 7.2 m[IU]/mL [facility] Comment on above: Result Comment: Adul t Female: Follicular phase 2.4 - 12.6 Ovulation phase 14.0 - 95.6 Luteal phase 1.0 - 11.4 Postmenopausal 7.7 - 58.5 Performed at: [facility] [address] [id number] PhD Subhash Coronel Performed By: #### 1 2707756, 9871133, 9707107, 6463637, 4870891, 9713470, 72716377, 1172375 #### [facility] [address] [place] [address] Progesteroneon 12-04-2019 Progesterone [Mass/Vol] ng/mL [facility] Comment on above: Result Comment: REFE RENCE RANGE Males 0.14-2.06 ng/mL Non- Females Follicular 0.10-0.60 ng/mL Luteal 3.00-17.5 ng/mL Midluteal 3.30-18.6 ng/mL Post-Menopausal 0.10-0.40 ng/mL First Trimester 8.30-66.5 ng/mL Second Trimester 18.9-66.1 ng/mL Third Trimester 35.8-312.4 ng/mL Performed By: #### 1 4951600, 1877657, 8787373, 2300379, 3373532, 7995522, 81730053, 9296943 #### [facility] [address] [place] [address] US Pelvis Non-OB Completeon 12-04-2019 US Pelvis [...] Comments Transabdominal Ultrasound Performed Transvaginal Ultrasound Performed [facility] US Transvaginal Non-OBon US Transvaginal Non-OB Exam Date/Time: 12/04/2019 07:41 EST Reason for Exam: OVARIAN DYSFUNCTION Report PLEASE REFER TO THE ULTRASOUND PELVIS NON-OB COMPLETE REPORT. FINAL REPORT Dictated: 12/04/2019 9:12 am Go Kaplan M.D. Signed (Electronic Signature): 12/04/2019 9:12 am Signed by: Go Kaplan M.D. Transcribed by: MADISON Technologist: SYBIL [facility] Coding Summary.on 12-01-2019 Coding Summary. CODING DATE: 020 FINAL [facility] STATUS: Home (Routine DC) PAYOR: [place] APC DESCRIPTION 5522 Level 2 Imaging without [...] Hill CphT Date Saved: 12/01/2019 12:45 pm [facility] Estradiolon 12-01-2019 E2 [Mass/Vol] 945.3 pg/mL [facility] Comment on above: Result Comment: Adul t Female: Follicular phase 12.5 - 166.0 Ovulation phase 85.8 - 498.0 Luteal phase 43.8 - 211.0 Postmenopausal <6.0 - 54.7 1st trimester 215.0 - >4300.0 Girls (1-10 years) 6.0 - 27.0 Mal ECLIA methodology Performed at: [facility] [id number] PhD Subhash Coronel Performed By: #### 1 6941488, 1821639, 1429983, 1986580, 3252245, 0002353, 15804910, 9580556 #### [facility] [address] [place] [address] LHon 12-01-2019 Lutropin Qn 6.9 m[IU]/mL [facility] Comment on above: Result Comment: Adul t Female: Follicular phase 2.4 - 12.6 Ovulation phase 14.0 - 95.6 Luteal phase 1.0 - 11.4 Postmenopausal 7.7 - 58.5 Performed at: [facility] [id number] [id number] PhD Subhash Coronel Performed By: #### 1 8165305, 1981137, 7528267, 5058904, 6027505, 7197513, 31756950, 3195119 #### [facility] [address] [place] [address] Progesteroneon 11-30-2019 Progesterone [Mass/Vol] 0.10 ng/mL [facility] Comment on above: Result Comment: REFE RENCE RANGE Males 0.14-2.06 ng/mL Non- Females Follicular 0.10-0.60 ng/mL Luteal 3.00-17.5 ng/mL Midluteal 3.30-18.6 ng/mL Post-Menopausal 0.10-0.40 ng/mL First Trimester 8.30-66.5 ng/mL Second Trimester 18.9-66.1 ng/mL Third Trimester 35.8-312.4 ng/mL Performed By: #### 1 8489577, 5819894, 5729974, 4281271, 9838037, 0752054, 84827324, 1715018 #### [facility] [address] [place] [address] US Pelvis Non-OB Completeon 11-30-2019 US Pelvis [...] Signature): 11/30/2019 9:00 am Signed by: Go Kpalan M.D. Transcribed by: MADISON Technologist: JESSICA Technical Comments Transabdominal Ultrasound Performed Transvaginal Ultrasound Performed Report last revised on 11/30/2019 13:21 EST by Go Kaplan M.D. [facility] US Transvaginal Non-OBon US Transvaginal Non-OB Exam Date/Time: 11/30/2019 07:37 EST Reason for Exam: ovarian dysfunction Report PLEASE REFER TO THE ULTRASOUND PELVIS NON-OB COMPLETE REPORT. FINAL REPORT Dictated: 11/30/2019 9:01 am Go Kaplan M.D. Signed (Electronic Signature): 11/30/2019 9:01 am Signed by: Go Kaplan M.D. Transcribed by: MADISON Technologist: JESSICA Normal [facility] Coding Summary.on 11-24-2019 Coding Summary. CODING DATE: 020 [facility] STATUS: Home (Routine DC) PAYOR: [place] [employer] DESCRIPTION 5522 Level 2 Imaging without [...] CphT Date Saved: 11/24/2019 08:10 am Normal [facility] Estradiolon 11-24-2019 E2 [Mass/Vol] 35.2 pg/mL [facility] Comment on above: Result Comment: [facility] t Female: Follicular phase 12.5 - 166.0 Ovulation phase 85.8 - 498.0 Luteal phase 43.8 - 211.0 Postmenopausal <6.0 - 54.7 1st trimester 215.0 - >4300.0 Girls (1-10 years) 6.0 - 27.0 Mal ECLIA methodology Performed at: [address] [id number] [id number] PhD Subhash Coronel Performed By: #### 1 [id number], 9315727, 0246667, 0438523, 7980584, 3585044, 97164323, 5356879 #### [facility] [address] [place] [address] FSH and LHon 11-24-2019 Follitropin Qn 8.7 m[IU]/mL [facility] Comment on above: Result Comment: [facility] t Female: Follicular phase 3.5 - 12.5 Ovulation phase 4.7 - 21.5 Luteal phase 1.7 - 7.7 Postmenopausal 25.8 - 134.8 Performed at: [address] [id number] PhD Subhash Coronel Performed By: #### 1 0277041, 6743774, 9732068, 7267766, 8609419, 8088107, 08744006, 1723776 #### [facility] [address] [place] [address] Lutropin Qn 9.1 m[IU]/mL [facility] Comment on above: Result Comment: [facility] t Female: Follicular phase 2.4 - 12.6 Ovulation phase 14.0 - 95.6 Luteal phase 1.0 - 11.4 Postmenopausal 7.7 - 58.5 Performed By: #### 1 6372752, 5208619, 5483118, 9381283, 8598984, 9664662, 01740236, 2725388 #### [facility] [address] [place] [address] BhCG Quanton 11-23-2019 HCG.beta subunit Qn m[IU]/mL Normal 1-3 [facility] Comment on above: Result Comment: GEST ATIONAL AGE HCG RANGE (mIU/mL) NON- <1-3 0.2-1 WEEKS 5-50 1-2 WEEKS 50-500 2-3 WEEKS 100-5,000 3-4 WEEKS 500-10,000 4-5 WEEKS 1,000-50,000 5-6 WEEKS 10,000-100,000 6-8 WEEKS 15,000-200,000 8-12 WEEKS 10,000-100,000 Performed By: #### 1 3080270, 5268775, 3279088, 9415992, 3626500, 0346393, 82705304, 6632842 #### [facility] [address] [place] [address] Progesteroneon 11-23-2019 Progesterone [Mass/Vol] 0.40 ng/mL [facility] Comment on above: Result Comment: REFE RENCE RANGE Males 0.14-2.06 ng/mL Non- Females Follicular 0.10-0.60 ng/mL Luteal 3.00-17.5 ng/mL Midluteal 3.30-18.6 ng/mL Post-Menopausal 0.10-0.40 ng/mL First Trimester 8.30-66.5 ng/mL Second Trimester 18.9-66.1 ng/mL Third Trimester 35.8-312.4 ng/mL Performed By: #### 1 1259143, 7609686, 2417673, 8847700, 3768209, 2554853, 39691685, 7205861 #### [facility] [address] [place] [address] TSHon 11-23-2019 TSH Qn 0.76 mcIU/mL Normal 0.34-5.60 [facility] Comment on above: Performed By: #### 1 7664386, 2945475, 3068578, 6216905, 9809375, 9650244, 10187673, 4316177 #### [facility] [address] [place] [address] US Pelvis Non-OB Completeon 11-23-2019 US Pelvis [...] Transabdominal Ultrasound Performed Transvaginal Ultrasound Performed Normal [facility] US Transvaginal Non-OBon US Transvaginal Non-OB Exam Date/Time: 11/23/2019 07:40 EST Reason for Exam: OVARIAN DYSFUNCTION Report PLEASE REFER TO THE ULTRASOUND PELVIS NON-OB COMPLETE REPORT. FINAL REPORT Dictated: 11/23/2019 9:26 am Go Kaplan M.D. Signed (Electronic Signature): 11/23/2019 9:26 am Signed by: Go Kaplan M.D. Transcribed by: [place] Technologist: JESSICA [facility] Coding Summary.on 10-24-2019 Coding Summary. CODING DATE: 020 FINAL [facility] STATUS: Home (Routine DC) PAYOR: Leela APC DESCRIPTION 5414 Level 4 Gynecologic Procedures ADMIT DX: REASON FOR VISIT DX: O02.1 Missed FINAL DX: PRINCIPAL: O02.1 Missed SECONDARY: I10 Essential (primary) hypertension E03.9 Hypothyroidism, unspecified PYMT PROC APC STAT DESCRIPTION DOCTOR NAME DATE 23888 5414 J1 Treatment of missed Davie Grijalva MD 10/20/2019 , completed surgically; first trimester 49147 Anesthesia for Davie Eaton Jr, DO 10/20/2019 incomplete or missed procedures NOTE: The code number assigned matches the documented diagnosis and / or procedure in the patient's chart. However, the narrative phrase printed from the coding software may appear abbreviated, or result in slightly different terminology. Revised Coded By: Althea Ortega Revised Date Saved: 10/24/2019 02:47 pm [facility] Main OR Intraoperative Recor don 10-23-2019 Main OR Intraoperative Record IntraOp Document Type FT Summary Primary Physician: Davie Grijalva MD Finalized Date/Time: 10/23/19 11:48:56 Pt. Name: SUKHDEV SCHWARTZ/Sex: 1985 Female Med Rec #: [id number] Physician: Davie Grijalva MD Financial #: [id number] Pt. Type: A Room/Bed: Admit/Disch: 10/20/19 12:59:16 - 10/20/19 16:25:00 Institution: Case Times FT Entry 1 Patient Times In Room 10/20/19 14:00:00 Out Room 10/20/19 14:34:00 Procedure Times Start 10/20/19 14:19:00 Stop 10/20/19 14:25:00 Anesthesia Times Start 10/20/19 14:00:00 Stop 10/20/19 14:34:00 Last Modified By: Nona Cuellar RN 10/20/19 14:34:06 General Comments: 10/23/2019 Chart opened to review and send charges Hilda Stein DATA WAREHOUSE SPECIALIST Case Attendance FT Entry 1 Entry 2 Entry 3 Case Attendee Carlito OVALLES, Geri Grijalva MD, Davie Castelan RN, Rena Role Performed Anesthesiologist Surgeon - Primary Research Development Director - Primary Produce Shipper Time In 10/20/19 14:00:00 10/20/19 14:16:00 10/20/19 14:00:00 Time Out 10/20/19 14:34:00 10/20/19 14:26:00 10/20/19 14:34:00 Procedure DILATATION and SUCTION DILATATION and SUCTION DILATATION and SUCTION CURETTAGE(.) CURETTAGE(.) CURETTAGE(.) Comments DR EATON SUPERVISING Last Modified By: Polo RN, Nona Cuellar RN, Nona Contreras RN 10/20/19 14:35:30 10/20/19 14:35:30 10/20/19 14:35:30 Entry 4 Entry 5 Case Attendee Polo GOODRICH, Nona Crook DATA WAREHOUSE SPECIALIST, Mónica Role Performed Research Development Director - Primary Scrub - Primary Time In [...] and tissue Entry 1 Skin Integrity Intact, [employer], Warm, and Skin Abnormality No Dry Outcomes [...] Cuellar RN, Hord RN, Abby, Costello Crook DATA WAREHOUSE SPECIALIST, Mónica DATA WAREHOUSE SPECIALIST, Mónica Outcomes Met? Yes Yes Last Modified By: ButlerNona bishop RN, RN, Emily A 10/20/19 14:21:22 [...] RN Patient Status Stable Skin. Condition Intact, [employer], Warm, and Dry Airway Maintenance Oxygen in Use? Yes Airway Device Simple Mask Flow Rate 8 L/min Outcomes Met? Yes Last Modified By: Nona Cuellar RN 10/20/19 14:35:23 Post-Care Text: The patient is free from signs and symptoms of injury related to transfer/transport General Comments: report given to burner technicianElayne mayo rn Dressing/Packing FT Pre-Care Text: Administers [...] safely administered during the perioperative period For [place] please see scanned medication reconcilliation form for medications used at the field during the procedure. Urinary Catheter Pre-Care Text: Patient is prepped using sterile technique. Entry 1 Urinary Catheter CATH URETHRAL STRAIGHT Present Upon Arrival No Inserted 16FR [[id number]][F] Insertion Date/Time 10/20/19 14:15:00 Insertion Site Uretheral [...] BLANKET MISTRAL AIR Quantity 1 Aid TORSO [[id number]][F] Fluid/Elba Unit Mistral warming system Setting high/43 Body Site Upper anterior torso Last Modified By: Nona Cuellar RN 10/20/19 13:54:58 Case Comments Finalized By: Juanita Stein CST Document Signatures Signed By: Nona Cuellar RN 10/20/19 14:35 Juanita Stein CST 10/23/19 11:48 Normal [facility] Operative Reporton 0 Operative Report Date [...] Davie Grijalva MD, FACOG gls Dictated: 10/20/2019 #[id number] Typed: 10/23/2019 #[id number] cc: Davie Grijalva MD, FACOG [facility] Comment on above: Result Comment: Elec [...] Davie Grijalva MD, FACOG cr Dictated: 10/20/2019 #[id number] Typed: 10/21/2019 #[id number] cc: Davie Grijalva MD, FACISRAEL [facility] Comment on above: Result Comment: Elec [...] All Problems Ovarian dysfunction / SNOMED CT 66428300 / Confirmed Hypothyroidism / SNOMED CT 07322368 / Confirmed Incomplete miscarriage / SNOMED CT 236085859 / Confirmed missed Pancreatitis / SNOMED CT 916491638 / Confirmed Histories Past Medical History: No active or resolved past medical history items have been selected or recorded. Family History: Diabetes mellitus type 2 Mother Thyroid cancer Mother Sister Procedure history: Cholecystectomy ([id number]) on 07/19/2019 at 33 Years. DIAGNOSTIC LAPAROSCOPY [...] results Radiology results ECG interpretation Condition Plan [place] [employer] Anesthesiologists (ASA) physical status classification: Class II. Anesthetic Preoperative Plan Anesthesia: General. . Anesthetic plan, risks, benefits, and alternatives discussed with the patient and/or family. Risks discussed: nausea, vomiting, headache, sore throat, dental injury, serious complications. Patient verbalized understanding. Communication: face to face with (patient 5 minutes, Pt educated on the importance of smoking cessation.). [facility] Comment on above: Result Comment: Elec tronically Signed By: Davie Eaton Jr, DO\doyle\Date and Time Signed: 10/23/19 07:34 EST Coding Summary.on 10-20-2019 Coding Summary. CODING DATE: 020 FINAL [facility] STATUS: Home (Routine DC) PAYOR: Commercial [...] Hill CphT Date Saved: 10/20/2019 09:01 am [facility] History and Physicalon 10-20 History and [...] Davie Grijalva MD, FACOG gls Dictated: 10/20/2019 #[id number] Typed 10/20/2019 #[id number] cc: Davie Grijalva MD, FACOG Normal [facility] Comment on above: Result Comment: Elec tronically Signed By: Rudi GUSTAFSON, Davie Duong\.br\Date and Time Signed: 10/20/19 10:15 EST Inpatient Patient Summaryon 10-20-2019 Inpatient Patient Summary [place] [id number] [facility] Clinical Discharge Instructions PERSON INFORMATION Name: [facility]#:[id number] PHYSICIANS Admitting Physician: Davie Grijalva MD Attending Physician: Davie Grijalva MD PCP: LOLI MATIAS MD Discharge Diagnosis: Hypothyroidism; Incomplete miscarriage; Status post dilation and curettage Comment: PATIENT EDUCATION INFORMATION Instructions: Post Op Patient Instructions - FT (CUSTOM); BERRY GROWER - Post D&C, Hysteroscopy, LEEP or Essure/Laparoscopy (CUSTOM) Medication Leaflets: Follow up: With: Address: When: Davie Grijalva [address] [place] [address] Business (1) Comments: Call for any problems. MEDICATION LIST New Medications [facility] [address] [place], [place] [id number], [phone] ibuprofen (ibuprofen 600 mg Tab) 1 Tablets [...] Mouth 2 times a day. Comment: Normal [facility] Main OR PACU I Recordon Main OR PACU I Record PACU Phase I Document Type FT Summary Primary Physician: Davie Grijalva MD Finalized Date/Time: 10/20/19 14:55:25 Pt. Name: SEN SCHWARTZTRUMAN Cote/Sex: 1985 Female Med Rec #: [id number] Physician: Davie Grijalva MD Financial #: [id number] Pt. Type: A Room/Bed: 05/18 Admit/Disch: 10/20/19 [...] By: Carin Iverson RN 10/20/19 14:55 Normal [facility] Main OR Preoperative Recordo n 10-20-2019 Main OR Preoperative Record PreOp Document Type FT Summary Primary Physician: Davie Grijalva MD Finalized Date/Time: 10/20/19 14:24:04 Pt. Name: SUKHDEV SCHWARTZ/Sex: 1985 Female Med Rec #: [id number] Physician: Davie Grijalva MD Financial #: [id number] Pt. Type: A Room/Bed: [facility] Admit/Disch: 10/20/19 12:59:16 - Institution: Case [...] By: Nona Cuellar RN 10/20/19 14:24 Normal [facility] Patient Education - Texton 0 10-20-2019 [...] cramps. PLEASE CALL FOR ANY PROBLEMS Normal [facility] Coding Summary.on 10-19-2019 Coding Summary. CODING DATE: 020 FINAL [facility] STATUS: Home (Routine DC) PAYOR: Commercial [...] CphT Date Saved: 10/19/2019 12:19 pm Normal [facility] RPRon 10-19-2019 Reagin Ab RPR Ql (S) Non-Reactive Normal Non-Reactiv e [facility] Comment on above: Performed By: #### 1 1469439, 8011554, 0262940, 3637491, 2495966, 8384969, 65244042, 1718606 #### [facility] [address] [place] [address] ABO/Rh Retypeon 10-17-2019 ABO/Rh Retype Interp Positive [facility] Comment on above: Performed By: #### 1 7269760, 6756399, 3381317, 0244048, 6967407, 6489615, 85224058, 6432193 #### [facility] [address] [place] [address] BUNon 10-17-2019 Urea nitrogen [Mass/Vol] 12 mg/dL Normal 5-21 [facility] Comment on above: Performed By: #### 1 0770366, 2605617, 1747064, 0131621, 0892701, 3882877, 13415284, 9298913 #### [facility] [address] [place] [address] CBC w/Indiceson 10-17-2019 Erythrocyte distribution width (RBC) [Ratio] 12.7 % Normal 10.9-14.2 [facility] Comment on above: Performed By: #### 1 0229782, 3686487, 6174429, 1763025, 3714716, 6975896, 90831336, 6675128 #### [facility] [address] [place] [address] Hematocrit (Bld) [Volume fraction] 34.6 % Normal 34.0-46.0 [facility] Comment on above: Performed By: #### 1 4866071, 7194847, 2663045, 4032218, 8545504, 7078731, 85775833, 5248426 #### [facility] [address] [place] [address] Hemoglobin (Bld) [Mass/Vol] 11.7 g/dL Low 12.0-16.0 [facility] Comment on above: Performed By: #### 1 6034800, 2898547, 0356673, 7600483, 7350695, 9410552, 13197903, 9502538 #### [facility] [address] [place], [place] [address] MCH (RBC) [Entitic mass] 30.7 pg Normal 27.0-34.0 [facility] Comment on above: Performed By: #### 1 3559403, 8433637, 3269562, 4742806, 6489266, 6124374, 11812605, 2133749 #### [facility] [address] [place] [address] MCHC (RBC) [Mass/Vol] 33.8 g/dL Normal 31.4-36.0 [facility] Comment on above: Performed By: #### 1 7882659, 6589237, 4367555, 3393225, 4807800, 3916409, 29088731, 4154678 #### [facility] [address] [place] [address] MCV (RBC) [Entitic vol] 90.8 fL Normal 80.0-100.0 [facility] Comment on above: Performed By: #### 1 9764696, 0061483, 7413994, 8775460, 1883145, 7980966, 55951493, 3414686 #### [facility] [address] [place] [address] Platelet mean volume (Bld) [Entitic vol] 7.5 fL Normal 6.4-10.8 [facility] Comment on above: Performed By: #### 1 5528978, 0484168, 5643431, 1959774, 3591927, 3083502, 79448203, 1404164 #### [facility] [address] [place] [address] Platelets (Bld) [#/Vol] 319.0 E9/L Normal 150.0-500.0 [facility] Comment on above: Performed By: #### 1 9170937, 4483307, 0530784, 6828328, 0515119, 8380317, 70861824, 7099509 #### [facility] [address] [place] [id number] RBC (Bld) [#/Vol] 3.8 E12/L Low 4.3-5.9 [facility] Comment on above: Performed By: #### 1 0722277, 5450913, 4606687, 2475407, 7528152, 3082638, 34537481, 1828423 #### [facility] [address] [place] [address] WBC corrected for nucl RBC Auto (Bld) [#/Vol] 6.1 E9/L Normal 4.0-11.0 [facility] Comment on above: Performed By: #### 1 5713395, 4867239, 0814865, 6143206, 9327638, 9244261, 70317230, 5999695 #### [facility] [address] [place] [address] Creatinineon 10-17-2019 Creatinine [Mass/Vol] 0.6 mg/dL Normal 0.5-1.3 [facility] Comment on above: Performed By: #### 1 8907329, 2532985, 5592970, 2448188, 8062463, 0577042, 10998879, 8101698 #### [facility] [address] [place] [address] Lyteson 10-17-2019 Anion gap [Moles/Vol] 12 mmol/L Normal 6-16 [facility] Comment on above: Performed By: #### 1 0182294, 3358654, 9442694, 4062395, 9564720, 6978107, 67542119, 4696858 #### [facility] [address] [place] [address] Chloride [Moles/Vol] 109 mmol/L Normal 101-111 [facility] Comment on above: Performed By: #### 1 8289613, 8683635, 5741678, 9246954, 5582113, 9566374, 07006944, 2747170 #### [facility] [address] [place] [address] CO2 [Moles/Vol] 26 mmol/L Normal 21-31 [facility] Comment on above: Performed By: #### 1 3587075, 2884721, 5628137, 1082948, 6223985, 6791573, 45222918, 0355959 #### [facility] [address] [place] [address] Potassium [Moles/Vol] 4.3 mmol/L Normal 3.5-5.3 [facility] Comment on above: Performed By: #### 1 7898701, 1459845, 5879974, 3918660, 3840191, 9648110, 85504439, 2440038 #### [facility] [address] [place] [address] Sodium [Moles/Vol] 143 mmol/L Normal 135-145 [facility] Comment on above: Performed By: #### 1 5355641, 4056737, 5223545, 5654654, 5256931, 1023936, 12143552, 4791299 #### [facility] [address] [place] [address] PT & PTTon 10-17-2019 aPTT Coag (PPP) [Time] 29.9 second(s) Normal 25.1-36.5 [facility] Comment on above: Result Comment: Hepa rin therapeutic range (represented by Anti-Factor Xa activity of 0.2 - 0.4 U/mL) corresponds to PTT of 56.6 - 109.0 sec. Performed By: #### 1 6874545, 6909291, 1857677, 6891970, 1300959, 1936574, 38401657, 2503767 #### [facility] [address] [place] [address] INR Coag (PPP) [Relative time] 1.0 {INR} [facility] Comment on above: Result Comment: INR results are specifically intended to assess patients stabilized on long-term Anticoagulation therapy suggested INR?s ?Less Intensive Anticoagulation? 2.0 ? 3.0 Conventional Range 3.0 ? 4.5 Performed By: #### 1 0826799, 9275555, 8437375, 4865582, 2509602, 6479220, 23483616, 6152164 #### [facility] [address] [place] [address] PT Coag (PPP) [Time] 11.0 second(s) Normal 10.2-12.9 [facility] Comment on above: Performed By: #### 1 9913931, 4815868, 0314839, 0309376, 6893631, 1617578, 44418457, 3158639 #### [facility] [address] [place] [address] eGFRon 10-17-2019 GFR/1.73 sq M predicted among blacks MDRD (S/P/Bld) [Vol rate/Area] mL/min/{1.73_m2} Normal >=59 [facility] Comment on above: Order Comment: Order added by Discern Expert. Result Comment: eGFR is race adjusted. AA=. Performed By: #### 1 8722711, 4973677, 1334262, 2414792, 2500945, 5734995, 03143130, 4491887 #### [facility] [address] [place] [address] GFR/1.73 sq M predicted among non-blacks MDRD (S/P/Bld) [Vol rate/Area] mL/min/{1.73_m2} Normal >=59 [facility] Comment on above: Order Comment: Order added by Discern Expert. Result Comment: City Designer ivan kidney disease could be indicated at eGFR's of less than 60 mL/min/1.73m2. Kidney failure is indicated at less than 15 mL/min/1.73m2. Performed By: #### 1 3552257, 6368116, 5970731, 6779792, 0153465, 2418313, 68271017, 4596548 #### [facility] [address] [place] [address] Coding Summary.on 10-12-2019 Coding Summary. CODING DATE: 019 FINAL [facility] STATUS: Home (Routine DC) PAYOR: Commercial [...] CphT Date Saved: 10/12/2019 12:46 pm Normal [facility] BhCG Quanton 10-09-2019 HCG.beta subunit Qn 1862 m[IU]/mL High 1-[address] [facility] Comment on above: Result Comment: GEST ATIONAL AGE HCG RANGE (mIU/mL) NON- <1-3 0.2-1 WEEKS 5-50 1-2 WEEKS 50-500 2-3 WEEKS 100-5,000 3-4 WEEKS 500-10,000 4-5 WEEKS 1,000-50,000 5-6 WEEKS 10,000-100,000 6-8 WEEKS 15,000-200,000 8-12 WEEKS 10,000-100,000 Performed By: #### 1 8688069, 3789786, 4330072, 6194310, 3751913, 8226081, 30794175, 1257443 #### [facility] [address] [place] [address] Coding Summary.on 10-06-2019 Coding Summary. CODING DATE: 019 FINAL [facility] STATUS: Home (Routine DC) PAYOR: Commercial [...] CphT Date Saved: 10/06/2019 12:45 pm Normal [facility] US 1st Trimesteron 10-06-2019 US 1st [...] Size < Dates Uterus Position Anteverted Normal [facility] US Transvaginalon 10-06-2019 US Transvaginal Exam Date/Time: 10/05/2019 13:36 EST Reason for Exam: possible ectopic Report PLEASE REFER TO THE ULTRASOUND FIRST TRIMESTER REPORT. FINAL REPORT Dictated: 10/06/2019 10:35 am Go Kaplan M.D. Signed (Electronic Signature): 10/06/2019 10:35 am Signed by: Go Kaplan M.D. Transcribed by: MADISON Technologist: COREY Normal [facility] BhCG Quanton 10-05-2019 HCG.beta subunit Qn 1726 m[IU]/mL High 1-[address] [facility] Comment on above: Result Comment: GEST ATIONAL AGE HCG RANGE (mIU/mL) NON- <1-3 0.2-1 WEEKS 5-50 1-2 WEEKS 50-500 2-3 WEEKS 100-5,000 3-4 WEEKS 500-10,000 4-5 WEEKS 1,000-50,000 5-6 WEEKS 10,000-100,000 6-8 WEEKS 15,000-200,000 8-12 WEEKS 10,000-100,000 Performed By: #### 2 786321 ####[facility] [address] [place] [address] Coding Summary.on 10-04-2019 Coding Summary. CODING DATE: 019 [facility] STATUS: Home (Routine DC) PAYOR: Commercial [...] CphT Date Saved: 10/04/2019 02:19 pm Normal [facility] Estradiolon 10-04-2019 E2 [Mass/Vol] 189.4 pg/mL [facility] Comment on above: Result Comment: Adul t Female: Follicular phase 12.5 - 166.0 Ovulation phase 85.8 - 498.0 Luteal phase 43.8 - 211.0 Postmenopausal <6.0 - 54.7 1st trimester 215.0 - >4300.0 Girls (1-10 years) 6.0 - 27.0 Mal ECLIA methodology Performed at: [facility] [id number] PhD Subhash Coronel Performed By: #### 2 326425, 0204071, 28650672, 3614579 ####[facility] [address] [place] [address] FSH and LHon 10-04-2019 Follitropin Qn 4.6 m[IU]/mL [facility] Comment on above: Result Comment: [facility] terell Female: Follicular phase 3.5 - 12.5 Ovulation phase 4.7 - 21.5 Luteal phase 1.7 - 7.7 Postmenopausal 25.8 - 134.8 Performed at: [facility] [id number] PhD Subhash Coronel Performed By: #### 2 384335, 5205608, 38042442, 3440361 ####[facility] [address] [place] [address] Lutropin Qn 10.0 m[IU]/mL [facility] Comment on above: Result Comment: [facility] terell Female: Follicular phase 2.4 - 12.6 Ovulation phase 14.0 - 95.6 Luteal phase 1.0 - 11.4 Postmenopausal 7.7 - 58.5 Performed By: #### 2 472493, 1091089, 27374488, 1168964 ####[facility] [address] [place] [address] BhCG Quanton 10-03-2019 HCG.beta subunit Qn 1625 m[IU]/mL High 1-3 [facility] Comment on above: Result Comment: GEST ATIONAL AGE HCG RANGE (mIU/mL) NON- <1-3 0.2-1 WEEKS 5-50 1-2 WEEKS 50-500 2-3 WEEKS 100-5,000 3-4 WEEKS 500-10,000 4-5 WEEKS 1,000-50,000 5-6 WEEKS 10,000-100,000 6-8 WEEKS 15,000-200,000 8-12 WEEKS 10,000-100,000 Performed By: #### 2 241546 ####[facility] [address] [place] [address] Progesteroneon 10-03-2019 Progesterone [Mass/Vol] 7.80 ng/mL [facility] Comment on above: Result Comment: REFE RENCE RANGE Males 0.14-2.06 ng/mL Non- Females Follicular 0.10-0.60 ng/mL Luteal 3.00-17.5 ng/mL Midluteal 3.30-18.6 ng/mL Post-Menopausal 0.10-0.40 ng/mL First Trimester 8.30-66.5 ng/mL Second Trimester 18.9-66.1 ng/mL Third Trimester 35.8-312.4 ng/mL Performed By: #### 2 050959, 9476943, 34048628, 8778651 ####[facility] [address] [place] [address] TSHon 10-03-2019 TSH Qn 0.84 mcIU/mL Normal 0.34-5.60 [facility] Comment on above: Performed By: #### 2 474299, 0802927, 20214728, 2126193 ####[facility] [address] [place] [address] Coding Summary.on 09-28-2019 Coding Summary. CODING DATE: 019 [facility] STATUS: Home (Routine DC) PAYOR: Commercial [...] Chau Date Saved: 09/28/2019 01:08 pm Normal [facility] BhCG Quanton 09-27-2019 HCG.beta subunit Qn 579 m[IU]/mL High 1-3 [facility] Comment on above: Result Comment: GEST ATIONAL AGE HCG RANGE (mIU/mL) NON- <1-3 0.2-1 WEEKS 5-50 1-2 WEEKS 50-500 2-3 WEEKS 100-5,000 3-4 WEEKS 500-10,000 4-5 WEEKS 1,000-50,000 5-6 WEEKS 10,000-100,000 6-8 WEEKS 15,000-200,000 8-12 WEEKS 10,000-100,000 Performed By: #### 2 565016 ####[facility] [address] [place] [address] External Lab Vitamin B6on Vitamin B6 4.4 [facility] Vitamin Aon 09-20-2019 Vitamin A 75.2 [facility] Vitamin B1on 09-20-2019 Thiamine (Vitamin B1) 116.7 [facility] Zincon 09-20-2019 Zinc 97 [facility] Coding Summary.on 09-18-2019 Coding Summary. CODING DATE: 019 [facility] STATUS: Home (Routine DC) PAYOR: Commercial [...] CphT Date Saved: 09/18/2019 01:21 pm Normal [facility] EXT LAB FERRITINon 9 Ferritin [Mass/Vol] 55 ng/mL [facility] External Lab Ironon 09-18-20 19 Iron [Mass/Vol] 89 ug/dL mcg/mL [facility] h External Lab Vitamin D, 25-O Hon 09-18-2019 Vitamin D, 25-OH 43.9 [facility] External Vitamin B12 and Fol ateon 09-18-2019 Cobalamin (Vitamin B12) [Mass/Vol] 291 pg/mL [facility] Folate 22.3 ng/mL Off scale high [facility] Interpretation and review of laboratory results Abnormal [facility] Vit Aon 09-18-2019 Retinol [Mass/Vol] 75.2 microgram/dL High 18.9-57.3 [facility] Comment on above: Result Comment: Refe [...] the Food and Drug Administration. Performed at: [address] [id number] MD Keegan Limon Performed By: #### 2 166580, 2302669, 5844726, 4572601, 840769434, 06033876, 80750377, 73688937, 06406300 ####[facility] [address] [place] [address] Vit B1on 09-18-2019 Thiamine (Bld) [Moles/Vol] 116.7 nmol/L 66.5-200.0 [facility] Comment on above: Result Comment: This test was developed and its performance characteristics determined by [employer]. It has not been cleared or approved by the Food and Drug Administration. Performed at: [address] [id number] MD Keegan Limon Performed By: #### 2 315056, 9993481, 0132497, 4451681, 915454348, 15246510, 85081609, 56314062, 61981130 ####[facility] [address] [place] [address] Vitamin B6on 09-18-2019 Pyridoxine [Mass/Vol] 4.4 microgram/L 2.0-32.8 [facility] Comment on above: Result Comment: This test was developed and its performance characteristics determined by [facility]. It has not been cleared or approved by the Food and Drug Administration. Performed at: [address] [id number] MD Keegan Limon Performed By: #### 2 202013, 0532133, 1592325, 2749209, 348030146, 49296147, 49461778, 75284476, 33682917 ####[facility] [address] [place] [address] Zinc Lvlon 09-18-2019 Zinc [Mass/Vol] 97 microgram/dL 56-134 [facility] Comment on above: Result Comment: This test was developed and its performance characteristics determined by [employer]. It has not been cleared or approved by the Food and Drug Administration. Detection Limit = 5 Performed at: [facility] [id number] MD Keegan Limon Performed By: #### 2 759947, 5212250, 1612925, 9151770, 567212906, 61993965, 74096249, 26045051, 28805536 ####[facility] [address] [place] [address] Coding Summary.on 09-15-2019 Coding Summary. CODING DATE: 019 FINAL [facility] STATUS: Home (Routine DC) PAYOR: Commercial [...] CphT Date Saved: 09/15/2019 02:01 pm Normal [facility] Estradiolon 09-14-2019 E2 [Mass/Vol] 929.6 pg/mL [facility] Comment on above: Result Comment: Adul t Female: Follicular phase 12.5 - 166.0 Ovulation phase 85.8 - 498.0 Luteal phase 43.8 - 211.0 Postmenopausal <6.0 - 54.7 1st trimester 215.0 - >4300.0 Girls (1-10 years) 6.0 - 27.0 Mal ECLIA methodology Performed at: [facility] [id number] PhD Subhash Coronel Performed By: #### 2 217137, 8989006 ####[facility] [address] [place] [address] BhCG Quanton 09-13-2019 HCG.beta subunit Qn 132 m[IU]/mL High 1-3 [facility] Comment on above: Result Comment: GEST ATIONAL AGE HCG RANGE (mIU/mL) NON- <1-3 0.2-1 WEEKS 5-50 1-2 WEEKS 50-500 2-3 WEEKS 100-5,000 3-4 WEEKS 500-10,000 4-5 WEEKS 1,000-50,000 5-6 WEEKS 10,000-100,000 6-8 WEEKS 15,000-200,000 8-12 WEEKS 10,000-100,000 Performed By: #### 1 2465758, 9660521, 4352933, 0362881, 1619841, 2217042, 59013525, 2571655 #### [facility] [address] [place] [address] Ferritinon 09-13-2019 Ferritin [Mass/Vol] 55 ng/mL Normal 11-307 [facility] Comment on above: Result Comment: NORM ALS MEN <30 YRS 16-132 ng/mL MEN >30 YRS 8-338 ng/mL WOMEN (PREMEN) 6-104 ng/mL WOMEN (POSTMEN) 12-210 ng/mL Performed By: #### 1 6026949, 5072109, 9908775, 4090128, 4723095, 9289058, 10980968, 5086072 #### [facility] [address] [place] [address] Folateon 09-13-2019 Folate [Mass/Vol] ng/mL Normal >=6.7 [facility] Comment on above: Performed By: #### 1 5696810, 0918182, 2986885, 7708101, 3518219, 3874071, 53429446, 3751053 #### [facility] [address] [place] [address] Ironon 09-13-2019 Iron [Mass/Vol] 89 microgram/dL Normal 35-153 [facility] Comment on above: Performed By: #### 1 [id number], 3318996, 6674423, 3294655, 9927450, 5808628, 70116972, 7557468 #### [facility] [address] [place] [address] Progesteroneon 09-13-2019 Progesterone [Mass/Vol] 29.00 ng/mL [facility] Comment on above: Result Comment: REFE RENCE RANGE Males 0.14-2.06 ng/mL Non- Females Follicular 0.10-0.60 ng/mL Luteal 3.00-17.5 ng/mL Midluteal 3.30-18.6 ng/mL Post-Menopausal 0.10-0.40 ng/mL First Trimester 8.30-66.5 ng/mL Second Trimester 18.9-66.1 ng/mL Third Trimester 35.8-312.4 ng/mL Performed By: #### 2 879657, 6784841 ####[facility] [address] [place] [address] Vit B12on 09-13-2019 Cobalamin (Vitamin B12) [Mass/Vol] 291 pg/mL Normal 50-1500 [facility] Comment on above: Performed By: #### 2 375377, 6343678, 1463747, 3734584, 814224295, 76337173, 03634635, 55324782, 67761777 ####[facility] [address] [place] [address] Vitamin D 25 Hydroxyon 09-13 Calcidiol [Mass/Vol] 43.9 ng/mL Normal 30.0-100.0 [facility] Comment on above: Result Comment: Vit hutchinson D deficiency has been defined as a level of serum 25-OH vitamin D less than 20 ng/mL (1,2) by the [place] of [employer] and an Endocrine Society practice guideline. The Endocrine Society further defined vitamin D insufficiency as a level between 21 and 29 ng/mL (2). 1. IOM ([place] of [employer]). 2010. Dietary reference intakes for calcium and D. [place]: The National Academies Press. 2. Isaías MF, Renay NC, Foreign HUERTA, et al. Evaluation, treatment, and prevention of vitamin D deficiency: an Endocrine Society clinical practice guideline. JCEM. 2010; 96 (7):1911-30. Performed By: #### 2 319100, 5155931, 4868376, 2577773, 589293798, 32228600, 12778292, 86520749, 50120084 ####[facility] [address] [place] [address] Coding Summary.on 09-12-2019 Coding Summary. CODING DATE: 019 [facility] STATUS: Home (Routine DC) PAYOR: Commercial [...] CphT Date Saved: 09/12/2019 07:36 am Normal [facility] Estradiolon 09-12-2019 E2 [Mass/Vol] 1006.0 pg/mL [facility] Comment on above: Result Comment: Adul t Female: Follicular phase 12.5 - 166.0 Ovulation phase 85.8 - 498.0 Luteal phase 43.8 - 211.0 Postmenopausal <6.0 - 54.7 1st trimester 215.0 - >4300.0 Girls (1-10 years) 6.0 - 27.0 Mal ECLIA methodology Performed at: [facility] [facility] [facility] [address] [id number] PhD Subhash Coronel Performed By: #### 1 7565938, 2359710, 8772756, 7906307, 6048011, 1474012, 38864490, 8329577 #### [facility] [address] [place] [address] [facility] Quanton 09-11-2019 HCG.beta subunit Qn 121 m[IU]/mL High 1-3 [facility] Comment on above: Result Comment: GEST ATIONAL AGE HCG RANGE (mIU/mL) NON- <1-3 0.2-1 WEEKS 5-50 1-2 WEEKS 50-500 2-3 WEEKS 100-5,000 3-4 WEEKS 500-10,000 4-5 WEEKS 1,000-50,000 5-6 WEEKS 10,000-100,000 6-8 WEEKS 15,000-200,000 8-12 WEEKS 10,000-100,000 Performed By: #### 1 4688420, 2365048, 6750367, 2525751, 2165402, 1680544, 90746286, 1085346 #### [facility] [address] [place] [address] Progesteroneon 09-11-2019 Progesterone [Mass/Vol] 26.60 ng/mL [facility] Comment on above: Result Comment: REFE RENCE RANGE Males 0.14-2.06 ng/mL Non- Females Follicular 0.10-0.60 ng/mL Luteal 3.00-17.5 ng/mL Midluteal 3.30-18.6 ng/mL Post-Menopausal 0.10-0.40 ng/mL First Trimester 8.30-66.5 ng/mL Second Trimester 18.9-66.1 ng/mL Third Trimester 35.8-312.4 ng/mL Performed By: #### 1 2725340, 9072411, 5652499, 8755572, 7572711, 8399588, 79612701, 6908455 #### [facility] [address] [place] [address] TSHon 09-11-2019 TSH Qn 0.88 mcIU/mL Normal 0.34-5.60 [facility] Comment on above: Performed By: #### 1 8864519, 3983944, 1633201, 0207901, 6558575, 9189858, 63221884, 4159849 #### [facility] [address] [place] [address] Coding Summary.on 09-10-2019 Coding Summary. CODING DATE: 019 FINAL [facility] STATUS: Home (Routine DC) PAYOR: Commercial [...] Putnam Date Saved: 09/10/2019 02:11 pm Normal [facility] Lipase Levelon 09-08-2019 Lipase [Catalytic activity/Vol] U/L High 13-58 [facility] Comment on above: Result Comment: conf irmed by dilution Performed By: #### 1 8331047, 4847051, 2985245, 2886394, 1495080, 4662483, 07135042, 2229405 #### [facility] [address] [place] [address] BhCG Quanton 09-07-2019 HCG.beta subunit Qn 90 m[IU]/mL High 1-3 [facility] Comment on above: Result Comment: GEST ATIONAL AGE HCG RANGE (mIU/mL) NON- <1-3 0.2-1 WEEKS 5-50 1-2 WEEKS 50-500 2-3 WEEKS 100-5,000 3-4 WEEKS 500-10,000 4-5 WEEKS 1,000-50,000 5-6 WEEKS 10,000-100,000 6-8 WEEKS 15,000-200,000 8-12 WEEKS 10,000-100,000 Performed By: #### 1 4214343, 7737726, 8560733, 1759448, 8246297, 2589418, 17876006, 9813288 #### [facility] [address] [place] [address] Progesteroneon 09-07-2019 Progesterone [Mass/Vol] 23.40 ng/mL [facility] Comment on above: Result Comment: REFE RENCE RANGE Males 0.14-2.06 ng/mL Non- Females Follicular 0.10-0.60 ng/mL Luteal 3.00-17.5 ng/mL Midluteal 3.30-18.6 ng/mL Post-Menopausal 0.10-0.40 ng/mL First Trimester 8.30-66.5 ng/mL Second Trimester 18.9-66.1 ng/mL Third Trimester 35.8-312.4 ng/mL Performed By: #### 1 7214773, 0498988, 1129734, 4905426, 5005179, 3510109, 24588940, 7083552 #### [facility] [address] [place] [address] Coding Summary.on 09-05-2019 Coding Summary. CODING DATE: 019 [facility] STATUS: Home (Routine DC) PAYOR: Commercial [...] CphT Date Saved: 09/05/2019 01:07 pm Normal [facility] Estradiolon 09-05-2019 E2 [Mass/Vol] 799.5 pg/mL [facility] Comment on above: Result Comment: Adul t Female: Follicular phase 12.5 - 166.0 Ovulation phase 85.8 - 498.0 Luteal phase 43.8 - 211.0 Postmenopausal <6.0 - 54.7 1st trimester 215.0 - >4300.0 Girls (1-10 years) 6.0 - 27.0 Mal ECLIA methodology Performed at: [facility] [id number] PhD Subhash Coronel Performed By: #### 1 8305935, 2045702, 4999296, 1654412, 3685084, 2788863, 13113826, 3791500 #### [facility] [address] [place] [address] Progesteroneon 09-04-2019 Progesterone [Mass/Vol] 39.30 ng/mL [facility] Comment on above: Result Comment: REFE RENCE RANGE Males 0.14-2.06 ng/mL Non- Females Follicular 0.10-0.60 ng/mL Luteal 3.00-17.5 ng/mL Midluteal 3.30-18.6 ng/mL Post-Menopausal 0.10-0.40 ng/mL First Trimester 8.30-66.5 ng/mL Second Trimester 18.9-66.1 ng/mL Third Trimester 35.8-312.4 ng/mL Performed By: #### 1 1355343, 5220457, 8398022, 9179518, 2874932, 8678822, 15834315, 3576233 #### [facility] [address] [place] [address] TSHon 09-04-2019 TSH Qn 0.83 mcIU/mL Normal 0.34-5.60 [facility] Comment on above: Performed By: #### 1 7203330, 2956775, 0318933, 7160639, 7824930, 5270781, 71951730, 4339222 #### [facility] [address] [place] [address] Coding Summary.on 08-23-2019 Coding Summary. CODING DATE: 019 FINAL [facility] STATUS: Home (Routine DC) PAYOR: Commercial [...] CphT Date Saved: 08/23/2019 01:15 pm Normal [facility] Estradiolon 08-23-2019 E2 [Mass/Vol] 903.5 pg/mL [facility] Comment on above: Result Comment: Adul t Female: Follicular phase 12.5 - 166.0 Ovulation phase 85.8 - 498.0 Luteal phase 43.8 - 211.0 Postmenopausal <6.0 - 54.7 1st trimester 215.0 - >4300.0 Girls (1-10 years) 6.0 - 27.0 Mal ECLIA methodology Performed at: [facility] [id number] PhD Subhash Coronel Performed By: #### 1 9308498, 7271558, 2283316, 4660061, 7365882, 7739748, 47825752, 0849891 #### [facility] [address] [place] [address] LHon 08-23-2019 Lutropin Qn 7.7 m[IU]/mL [facility] Comment on above: Result Comment: Adul t Female: Follicular phase 2.4 - 12.6 Ovulation phase 14.0 - 95.6 Luteal phase 1.0 - 11.4 Postmenopausal 7.7 - 58.5 Performed at: [address] [id number] PhD Subhash Coronel Performed By: #### 1 7031617, 0928523, 8008521, 9354824, 0217206, 6878691, 59766005, 7836425 #### [facility] [address] [place] [address] Progesteroneon 08-22-2019 Progesterone [Mass/Vol] ng/mL [facility] Comment on above: Result Comment: REFE RENCE RANGE Males 0.14-2.06 ng/mL Non- Females Follicular 0.10-0.60 ng/mL Luteal 3.00-17.5 ng/mL Midluteal 3.30-18.6 ng/mL Post-Menopausal 0.10-0.40 ng/mL First Trimester 8.30-66.5 ng/mL Second Trimester 18.9-66.1 ng/mL Third Trimester 35.8-312.4 ng/mL Performed By: #### 1 2905703, 9215919, 2098354, 2770118, 6912184, 5977581, 86588110, 9432402 #### [facility] [address] [place] [address] Coding Summary.on 08-16-2019 Coding Summary. CODING DATE: 019 FINAL [facility] STATUS: Home (Routine DC) PAYOR: Commercial [...] SantiagoTeri Date Saved: 08/16/2019 02:00 pm Normal [facility] Estradiolon 08-16-2019 E2 [Mass/Vol] 52.3 pg/mL [facility] Comment on above: Result Comment: Adul t Female: Follicular phase 12.5 - 166.0 Ovulation phase 85.8 - 498.0 Luteal phase 43.8 - 211.0 Postmenopausal <6.0 - 54.7 1st trimester 215.0 - >4300.0 Girls (1-10 years) 6.0 - 27.0 Mal ECLIA methodology Performed at: [address] [id number] PhD Subhash Coronel Performed By: #### 1 8255333, 6881082, 7045828, 2253641, 3324711, 4695093, 74323486, 0492424 #### [facility] [address] [place] [address] FSH and LHon 08-16-2019 Follitropin Qn 7.9 m[IU]/mL [facility] Comment on above: Result Comment: [facility] t Female: Follicular phase 3.5 - 12.5 Ovulation phase 4.7 - 21.5 Luteal phase 1.7 - 7.7 Postmenopausal 25.8 - 134.8 Performed at: [address] [id number] PhD Subhash Coronel Performed By: #### 1 2885087, 6592701, 8336637, 6209302, 3045428, 6180241, 10192475, 1226246 #### [facility] [address] [place] [address] Lutropin Qn 9.8 m[IU]/mL [facility] Comment on above: Result Comment: [facility] t Female: Follicular phase 2.4 - 12.6 Ovulation phase 14.0 - 95.6 Luteal phase 1.0 - 11.4 Postmenopausal 7.7 - 58.5 Performed By: #### 1 7065410, 7509382, 6353286, 6124710, 7650559, 7020218, 11116969, 8203403 #### [facility] [address] [place] [address] BhCG Quanton 08-15-2019 HCG.beta subunit Qn m[IU]/mL Normal 1-3 [facility] Comment on above: Result Comment: GEST ATIONAL AGE HCG RANGE (mIU/mL) NON- <1-3 0.2-1 WEEKS 5-50 1-2 WEEKS 50-500 2-3 WEEKS 100-5,000 3-4 WEEKS 500-10,000 4-5 WEEKS 1,000-50,000 5-6 WEEKS 10,000-100,000 6-8 WEEKS 15,000-200,000 8-12 WEEKS 10,000-100,000 Performed By: #### 1 5200925, 3995474, 1523731, 2878290, 7867643, 6924995, 23155857, 0576816 #### [facility] [address] [place] [address] Progesteroneon 08-15-2019 Progesterone [Mass/Vol] 0.20 ng/mL [facility] Comment on above: Result Comment: REFE RENCE RANGE Males 0.14-2.06 ng/mL Non- Females Follicular 0.10-0.60 ng/mL Luteal 3.00-17.5 ng/mL Midluteal 3.30-18.6 ng/mL Post-Menopausal 0.10-0.40 ng/mL First Trimester 8.30-66.5 ng/mL Second Trimester 18.9-66.1 ng/mL Third Trimester 35.8-312.4 ng/mL Performed By: #### 1 9329303, 1933852, 4292074, 5928856, 3332632, 5509925, 45315967, 9671526 #### [facility] [address] [place] [address] TSHon 08-15-2019 TSH Qn 1.05 mcIU/mL Normal 0.34-5.60 [facility] Comment on above: Performed By: #### 1 3859379, 7345721, 8102422, 5331700, 6152496, 9009789, 35581537, 4248352 #### [facility] [address] [place] [address] Coding Summary.on 07-31-2019 Coding Summary. 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 However, the narrative phrase printed from the coding software may appear abbreviated, or result in slightly different terminology. Coded By: Teri Hill CphT Date Saved: 07/31/2019 10:30 am Normal [facility] ED Note-Physicianon 07-28-20 ED Note-Physician Basic Information Time Seen: Oswaldo Fischer PA-C 07/17/2019 21:52 Chief Complaint pt has complaints of abdominal pain nausea and vomiting since 2am, states lab work done at [facility] today liver enzymes were elevated history of [...] Bergeron discussed with Dr. Goel, trauma surgeon reducing salon attendant, and Dr. Alvarado, hospitalist reducing salon attendant, about patient, history, labs, and imaging findings consistent acute pancreatitis and common bile duct obstruction, patient be admitted to hospitalist services, and consult with Dr. Reddy, GI doctor on-call for possible MANAGER OF FINANCE in the morning. Dr. Alvardao admitted patient to services, patient agree with [...] was treated and evaluated by the Physician Produce Shipper. The attending physician was Dr. Bergeron in [...] Auto: 6.4 % Low (07/17/19 22:12:00 EDT) [place] Auto: 5.5 % (07/17/19 22:12:00 EDT) Eos Auto: 0.6 % (07/17/19 22:12:00 EDT) Basophil Auto: 0.3 % (07/17/19 22:12:00 EDT) Neutro Absolute: 11.3 E9/L High (07/17/19 22:12:00 EDT) Lymph Absolute: 0.8 E9/L Low (07/17/19 22:12:00 EDT) [place] Absolute: 0.7 E9/L (07/17/19 22:12:00 EDT) Eos [...] Diagnostic Results No qualifying data available. Normal [facility] Comment on above: Result Comment: Elec tronically Signed By: Oswaldo Fischer PA-C\.br\Date and Time Signed: 07/18/19 01:07 EDT\.br\Electronically Co-Signed By: Mehran Bergeron MD\.br\Date and Time Co-Signed: 07/28/19 08:12 EDT Progress Note-Physicianon Progress Note-Physician Chief Complaint Follow up from OR History of Present Illness SUKHDEV SCHWARTZ is a 33 Years Female who presented to [facility] on 07/18/2019 with gallstone pancreatitis. 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 Still waiting for [facility] paperwork which she'll fax to us. Review [...] a 33 Years Female who presented to [facility] on 07/18/2019 with gallstone pancreatitis and is now POD#9 s/p lap aidee. She is recovering well. She can keep covering the periumbilical incision with Bandaid until it heals. I reviewed path report with her. She can follow-up with us PRN. We will fill out [facility] paperwork for her when we receive it. [...] REACTIVE LYMPH NODE WITH FOLLICULAR HYPERPLASIA. Normal [facility] Comment on above: Result Comment: Elec tronically Signed By: Garrett GUSTAFSON, Marina Fields\.br\Date and Time Signed: 07/28/19 09:13 EDT Coding Summary.on 07-24-2019 Coding Summary. CODING DATE: 019 FINAL [facility] STATUS: Home (Routine DC) PAYOR: Commercial Insurance Grouper: 419 MS-DRG Laparoscopic cholecystectomy w/o c.d.e. w/o CC/CORRECTION Low Trim 0 High Trim 999 263 [...] (BMI) 34.0-34.9, adult PROCEDURES DOCTOR NAME DATE [id number] Resection of Gallbladder, Amando GUSTAFSON, Javan Stevens 07/19/2019 Percutaneous Endoscopic Approach [id number] Extirpation of Matter from Abhinav REDDY MD 07/18/2019 Common Bile Duct, Via Natural or Artificial Opening Endoscopic [id number] Fluoroscopy of Bile Ducts using Abhinav REDDY MD 07/18/2019 Low Osmolar Contrast NOTE: The code number assigned matches the documented diagnosis and / or procedure in the patient's chart. However, the narrative phrase printed from the coding software may appear abbreviated, or result in slightly different terminology. Revised Coded By: Kat Del Rosario Revised Date Saved: 07/24/2019 07:27 am Normal [facility] Progress Note-Physicianon Progress Note-Physician Patient: SUKHDEV [...] All Problems Ovarian dysfunction / SNOMED CT 89026352 / Confirmed Hypothyroidism / SNOMED CT 80043723 / Confirmed Pancreatitis / SNOMED CT 068416240 / Confirmed Histories Past Medical History: No [...] Cardiovascular: Regular rhythm. Neurologic: Alert, Oriented. Plan [place] Society [employer] Anesthesiologists (ASA) physical status classification: Class II. Anesthetic Preoperative Plan Anesthesia: General. . Anesthetic plan, risks, benefits, and alternatives discussed with the patient and/or family. Communication: face to face with (patient 5 minutes, Patient educated on smoking cesstation). Normal [facility] Comment on above: Result Comment: Elec [...] then closed the umbilical fascia with multiple [id number] 0 Vicryl sutures, then tied the stay [...] Gallbladder Javan Goel MD aek Dictated: 07/19/2019 #[id number] Typed: 07/20/2019 #[id number] cc: Javan Goel MD Normal [facility] Comment on above: Result Comment: Elec tronically Signed By: Amando GUSTAFSON, Javan Stevens\.br\Date and Time Signed: 07/20/19 11:04 EDT Auto Diffon 07-19-2019 Basophils/100 WBC (Bld) 0.2 % Normal 0.0-2.0 [facility] Comment on above: Order Comment: Order Added by Discern Expert. Performed By: #### 1 6558067, 4004132, 9378953, 0773548, 3017170, 9289081, 43240962, 1405210 #### [facility] [address] [place] [address] Basophils/Leukocyte s Auto (Bld) [Pure # fraction] 0.0 E9/L Normal 0.0-0.2 [facility] Comment on above: Order Comment: Order Added by Discern Expert. Performed By: #### 1 4081562, 0419472, 5369712, 8642396, 6815869, 5878785, 04052834, 6624351 #### [facility] [address] [place] [address] Eosinophils/100 WBC (Bld) 1.1 % Normal 0.0-8.0 [facility] Comment on above: Order Comment: Order Added by Discern Expert. Performed By: #### 1 0540494, 0532228, 4425836, 4939179, 5942432, 4778558, 78591665, 1504300 #### [facility] [address] [place] [address] Eosinophils/Leukocy dariel Auto (Bld) [Pure # fraction] 0.1 E9/L Normal 0.0-0.5 [facility] Comment on above: Order Comment: Order Added by Discern Expert. Performed By: #### 1 8680093, 4524384, 4993955, 6229950, 1695793, 7173575, 69299421, 6504843 #### [facility] [address] [place] [address] Lymphocytes/100 WBC (Bld) 11.9 % Low 14.0-50.0 [facility] Comment on above: Order Comment: Order Added by Discern Expert. Performed By: #### 1 3647645, 9779446, 9449727, 3284089, 8883469, 3370412, 51490444, 8611592 #### [facility] [address] [place] [address] Lymphocytes/Leukocy dariel Auto (Bld) [Pure # fraction] 1.1 E9/L Normal 1.0-4.0 [facility] Comment on above: Order Comment: Order Added by Discern Expert. Performed By: #### 1 3454931, 7882153, 2928999, 1911244, 2541825, 8923145, 07297485, 7642912 #### [facility] [address] [place] [address] Monocytes/100 WBC (Bld) 5.8 % Normal 4.0-14.0 [facility] Comment on above: Order Comment: Order Added by Discern Expert. Performed By: #### 1 8896566, 6098490, 5781770, 8876553, 4744141, 9656144, 26188750, 5420741 #### [facility] [address] [place] [address] Monocytes/Leukocyte s Auto (Bld) [Pure # fraction] 0.5 E9/L Normal 0.2-1.0 [facility] Comment on above: Order Comment: Order Added by Discern Expert. Performed By: #### 1 3176808, 0466460, 6448496, 9609934, 3620108, 3851296, 63480170, 5809768 #### [facility] [address] [place] [address] Neutrophils/100 WBC (Bld) 81.0 % High 36.0-75.0 [facility] Comment on above: Order Comment: Order Added by Discern Expert. Performed By: #### 1 6933856, 9962695, 2274611, 0650153, 8356851, 9081394, 80624562, 6876678 #### [facility] [address] [place] [address] Neutrophils/Leukocy dariel Auto (Bld) [Pure # fraction] 7.3 E9/L Normal 2.0-7.5 [facility] Comment on above: Order Comment: Order Added by Discern Expert. Performed By: #### 1 4468439, 4350331, 1121038, 9822415, 8890096, 0333962, 48951481, 5783871 #### [facility] [address] [place] [address] CBC w/ Auto Diffon Erythrocyte distribution width (RBC) [Ratio] 13.6 % Normal 10.9-14.2 [facility] Comment on above: Performed By: #### 1 6012283, 3528304, 9028622, 6253204, 6396293, 2899961, 09542014, 4124576 #### [facility] [address] [place] [address] Hematocrit (Bld) [Volume fraction] 30.5 % Low 34.0-46.0 [facility] Comment on above: Performed By: #### 1 0661155, 9925048, 3530721, 9975199, 3023254, 0084747, 73989139, 9901728 #### [facility] [address] [place] [address] Hemoglobin (Bld) [Mass/Vol] 10.8 g/dL Low 12.0-16.0 [facility] Comment on above: Performed By: #### 1 4920593, 6346841, 0195182, 7498419, 7510336, 4916819, 28090942, 0683182 #### [facility] [address] [place] [address] MCH (RBC) [Entitic mass] 31.4 pg Normal 27.0-34.0 [facility] Comment on above: Performed By: #### 1 9255236, 7342833, 7019057, 4126714, 2256809, 0153392, 62544717, 4994634 #### [facility] [address] [place], [place] [address] MCHC (RBC) [Mass/Vol] 35.2 g/dL Normal 33.3-35.7 [facility] Comment on above: Performed By: #### 1 8064492, 2829154, 7388091, 8673061, 3954372, 7877335, 47052596, 2512262 #### [facility] [address] [place] [address] MCV (RBC) [Entitic vol] 89.0 fL Normal 80.0-100.0 [facility] Comment on above: Performed By: #### 1 5697754, 0875866, 4362231, 9540916, 5223287, 2991875, 00099482, 1768982 #### [facility] [address] [place] [address] Platelet mean volume (Bld) [Entitic vol] 7.4 fL Normal 6.4-10.8 [facility] Comment on above: Performed By: #### 1 7878643, 0400683, 4850662, 1121399, 6331655, 9148262, 78097144, 8635813 #### [facility] [address] [place] [address] Platelets (Bld) [#/Vol] 206.0 E9/L Normal 150.0-500.0 [facility] Comment on above: Performed By: #### 1 1610054, 5207785, 3818438, 5806998, 3011153, 6164578, 18846023, 6528195 #### [facility] [address] [place], [place] [address] RBC (Bld) [#/Vol] 3.4 E12/L Low 4.3-5.9 [facility] Comment on above: Performed By: #### 1 7189206, 6936017, 9303974, 5385049, 2411265, 4789513, 93672547, 6938378 #### [facility] [address] [place] [address] WBC corrected for nucl RBC Auto (Bld) [#/Vol] 9.0 E9/L Normal 4.0-11.0 [facility] Comment on above: Performed By: #### 1 3510724, 7148983, 5156632, 3892854, 2599641, 9803627, 76607485, 3325889 #### [facility] [address] [place] [address] CMPon 07-19-2019 Albumin [Mass/Vol] 3.1 g/dL Low 3.3-5.0 [facility] Comment on above: Performed By: #### 1 9752410, 3057491, 5411196, 7648102, 6475385, 6291343, 62585654, 2976123 #### [facility] [address] [place], [place] [address] Albumin [Mass/Vol] 1.3 g/dL Normal 1.1-2.2 [facility] Comment on above: Performed By: #### 1 8162096, 5019984, 3588105, 1829788, 0179615, 5620391, 38924106, 7083243 #### [facility] [address] [place] [address] ALP [Catalytic activity/Vol] 64 Int._Unit/L Normal 21-98 [facility] Comment on above: Performed By: #### 1 5427417, 1039688, 8685893, 3057309, 1643749, 7003302, 14420817, 4260025 #### [facility] [address] [place] [address] ALT No additional P-5'-P [Catalytic activity/Vol] 77 Int._Unit/L High 6-46 [facility] [facility] Comment on above: Performed By: #### 1 1796583, 7986747, 2677223, 8576894, 6086441, 9680416, 67114426, 8950218 #### [facility] [address] [place] [address] AST [Catalytic activity/Vol] 32 Int._Unit/L Normal 5-43 [facility] Comment on above: Performed By: #### 1 1612487, 8053607, 8660724, 4100117, 2327898, 7486834, 07250672, 3902308 #### [facility] [address] [place] [address] Bilirubin [Mass/Vol] 1.2 mg/dL High 0.0-1.1 [facility] Comment on above: Performed By: #### 1 0839009, 3323631, 6152440, 0901711, 1087301, 5229323, 38222803, 6220296 #### [facility] [address] [place] [address] Creatinine [Mass/Vol] 0.6 mg/dL Normal 0.5-1.3 [facility] Comment on above: Performed By: #### 1 6635505, 5451424, 7317331, 5066751, 0945749, 9700988, 81167294, 2161907 #### [facility] [address] [place] [address] Globulin (S) [Mass/Vol] 2.4 g/dL Normal 1.4-4.0 [facility] Comment on above: Performed By: #### 1 5729917, 5861526, 6592433, 5511240, 0445344, 6436570, 32743862, 1301433 #### [facility] [address] [place] [address] Protein [Mass/Vol] 5.5 g/dL Low 6.0-7.8 [facility] Comment on above: Performed By: #### 1 4391994, 0358027, 1020674, 7684299, 6019427, 6221255, 59743921, 2774599 #### [facility] [address] [place] [address] Urea nitrogen [Mass/Vol] 10 mg/dL Normal 5-21 [facility] Comment on above: Performed By: #### 1 2618760, 1529559, 3709268, 6469966, 9645309, 8658641, 03873892, 7544919 #### [facility] [address] [place] [address] Urea nitrogen/Creatinine [Mass ratio] 17 No Units Normal 10-20 [facility] Comment on above: Performed By: #### 1 6377204, 5237624, 1388218, 3569998, 8203520, 5855113, 47351112, 1042182 #### [facility] [address] [place] [address] Anion gap [Moles/Vol] 12 mmol/L Normal 6-16 [facility] Comment on above: Performed By: #### 1 4070138, 1859238, 7324206, 9340848, 3990662, 0860769, 72422732, 8235099 #### [facility] [address] [place] [address] Calcium [Mass/Vol] 8.5 mg/dL Low 8.9-11.1 [facility] Comment on above: Performed By: #### 1 8547549, 6146290, 9088501, 0369725, 3301962, 6907075, 92774501, 4787027 #### [facility] [address] [place] [address] Chloride [Moles/Vol] 109 mmol/L Normal 101-111 [facility] Comment on above: Performed By: #### 1 9542993, 9631300, 8417566, 9892760, 9025823, 9652646, 54374770, 4152575 #### [facility] [address] [place] [address] CO2 [Moles/Vol] 22 mmol/L Normal 21-31 [facility] Comment on above: Performed By: #### 1 4018376, 5432604, 7289530, 8015827, 7727600, 1089074, 97283184, 4680083 #### [facility] [address] [place] [address] Glucose [Mass/Vol] 99 mg/dL Normal 55-199 [facility] Comment on above: Result Comment: If t his glucose result represents a fasting glucose, interpretation should refer to the following reference range: 55-99 mg/dL Performed By: #### 1 3865513, 6994200, 9383948, 7284724, 9834016, 1191861, 45453151, 9128518 #### [facility] [address] [place] [address] Potassium [Moles/Vol] 3.7 mmol/L Normal 3.5-5.3 [facility] Comment on above: Performed By: #### 1 7979167, 8504695, 2510354, 5142012, 9657042, 1628748, 35138087, 5709274 #### [facility] [address] [place] [address] Sodium [Moles/Vol] 139 mmol/L Normal 135-145 [facility] Comment on above: Performed By: #### 1 8985042, 9545002, 3527785, 2749738, 4588515, 0216568, 83677373, 7829170 #### [facility] [address] [place] [address] Discharge Note-Nursingon Discharge Note-Nursing Pt taken to roller picker exit with belongings by wheelchair and discharged home with family per personal vehicle Normal [facility] Inpatient Clinical Summaryon 07-19-2019 Inpatient Clinical Summary [address] [address] Clinical Summary Person Information: Name: SUKHDEV SCHWARTZ Age: 33 Years : 1985 12:00 AM Sex: Female PCP: LOLI MATIAS MD Marital Status: Phone: [phone] Race: White Ethnicity: Non- or Language: Martiniquais Visit Id: Visit Reason: Vomiting; Nausea; Abdominal pain; COMMON DUCT OBSTRUCTION, ACUTE PANCREATITIS Speciality: Acuity: Enc Type: Inpatient Med Service: Medical Arrival: 07/17/2019 8:55 PM Discharge: Dispo Type: Admitted as IP to this [facility] Address: [address] [place] [address] [address] [place] [phone] Provider Notes: Diagnosis: 1:Acute gallstone pancreatitis; 2:Abnormal [...] Follow up: With: Address: When: Javan Brennan [facility], [address], [address] [phone] Business (1) Within 7 to 10 days With: Address: When: [place] [address] Business (1) 08/07/2019 7:30 AM Type Location [facility] 09/12/2019 2:00 PM 09/12/2019 2:15 PM Confirmed Patient Education Information: Cholecystostomy Normal [facility] Inpatient Patient Summaryon 07-19-2019 Inpatient Patient Summary [address] [address] Patient Discharge Instructions PERSON INFORMATION Name: SUKHDEV SCHWARTZ Date of : 1985 12:00 AM Current Date: 07/19/19 19:38:22 PHYSICIANS Admitting Physician: Aron ALVARADO DO Primary Care Physician: LOLI MATIAS MD PCP Comment: Discharge Diagnosis: 1:Acute gallstone pancreatitis; 2:Abnormal LFTs; 3:Common bile duct obstruction; 4:History of bariatric surgery; 5:Hypothyroidism; 6:History of herniated intervertebral disc; 7:Obesity Condition at Discharge: Improved HERMILA SCHAWRTZY Antoni has been given the following list [...] Follow up: With: Address: When: Javan Goel [address] [place] [address], [address], [address] [phone] Business (1) Within 7 to 10 days With: Address: When: LOLI MATIAS [address] [place] [id number] Business (1) 08/07/2019 7:30 AM In the event that this physician does not participate in your insurance network, please consult with your insurance company to find a nearby participating provider. Type Location Start [facility] 09/12/2019 2:00 PM 09/12/2019 2:15 PM Confirmed Comment: JAMES Bain BRITTANY F, have received the attached patient education materials/instructions and have verbalized understanding: Patient Signature __ Date Clinican/Nurse Signature Date HERE ARE THE MEDICATION CHANGES THAT OCCURRED DURING YOUR HOSPITAL STAY New Medications [facility], [address] [place], [place] [id number], [phone] acetaminophen-hydrocodone (acetaminophen-hydrocodone 325 mg-5 mg oral tablet) [...] Mouth 2 times a day. Pharmacy Information: [facility] Comment: PATIENT EDUCATION INFORMATION Instructions: Cholecystostomy The [...] Document Reviewed: 12/31/2009 ExitCare? Patient Information ?2014 3yy game platform. This information is not intended to replace advice given to you by your health care provider. Make sure you discuss any questions you have with your health care provider. Medication Leaflets: Thank you for choosing [facility] Normal [facility] Interdisciplinary Note - Arcadio e Manageron 07-19-2019 INR Coag (Bld) [Relative time] Rounding with Dr. Benjamin, Felicia [facility], Rosie [facility], and Agustina GOODRICH with another patient [...] will update family on dc plans. Normal [facility] Comment on above: Result Comment: Elec tronically Signed By: Andrzej GOODRICH, Felicia\.br\Date and Time Signed: 07/19/19 09:10 EDT Main OR Intraoperative Recor don 07-19-2019 Main OR Intraoperative Record IntraOp Document Type FT Summary Primary Physician: Javan Goel MD Finalized Date/Time: 07/19/19 14:22:14 Pt. Name: SUKHDEV SCHWARTZ D.O.B./Sex: 1985 Female Med Rec #: [id number] Physician: Aron ALVARADO DO Financial #: [id number] Pt. Type: I Room/Bed: 06 Admit/Disch: 07/17/19 20:55:00 - Institution: Case Times FT Entry 1 Patient Times In Room 07/19/19 10:51:00 Out Room 07/19/19 13:18:00 Procedure Times Start 07/19/19 11:21:00 Stop 07/19/19 13:13:00 Anesthesia Times Start 07/19/19 10:51:00 Stop 07/19/19 13:18:00 Last Modified By: Juantia Stein CST 07/19/19 13:22:28 General Comments: 07/19/19 Chart opened to review and send charges Hilda Stein CST Case Attendance FT Entry 1 Entry 2 Entry 3 Case Attendee Carlito OVALLES, Geri Goel MD, Berry Heller RN Role Performed Anesthesiologist Surgeon - Primary [employer]VE[employer]IGATION DIVISION [employer] Produce Shipper Time In 07/19/19 10:51:00 07/19/19 10:51:00 07/19/19 10:51:00 Time Out 07/19/19 13:18:00 07/19/19 12:56:00 07/19/19 13:18:00 Procedure CHOLECYSTECTOMY CHOLECYSTECTOMY CHOLECYSTECTOMY LAPAROSCOPIC W/ LAPAROSCOPIC W/ LAPAROSCOPIC W/ CHOLANGI(.) CHOLANGI(.) CHOLANGI(.) Comments DR GARVIN OUT FOR LUNCH FROM SUPERVISING.GERI [phone] WANDER GRAY-OUT TO LUNCH FROM [phone]. Last Modified By: Luis Fernando RN, Tosha Gould RN, Tosha Stewart RN 07/19/19 13:22:30 07/19/19 13:22:30 07/19/19 13:22:30 Entry 4 Entry 5 Entry 6 Case Attendee Armaan VILLAGOMEZ, Mónica Gould RN, Tosha Wright RNRavi Role Performed Scrub - Primary Research Development Director - Primary Research Development Director - Relief Time In 07/19/19 10:51:00 07/19/19 10:51:00 07/19/19 11:04:00 Time Out 07/19/19 13:18:00 07/19/19 13:18:00 07/19/19 11:40:00 Procedure CHOLECYSTECTOMY CHOLECYSTECTOMY CHOLECYSTECTOMY LAPAROSCOPIC W/ LAPAROSCOPIC W/ LAPAROSCOPIC W/ CHOLANGI(.) CHOLANGI(.) CHOLANGI(.) Comments OUT FOR LUNCH FROM OUT TO LUNCH FROM [phone] Last Modified By: Luis Fernando GOODRICH, Tosha Gould RN, Tosha Stewart RN 07/19/19 13:22:30 07/19/19 13:22:30 07/19/19 13:22:30 Entry 7 Entry 8 Entry 9 Case Attendee Adalid VILLAGOMEZ, Bert Vázquez DATA WAREHOUSE SPECIALIST/SA, Tosha Wolf CST Performed DATA WAREHOUSE SPECIALIST/SA Scrub - Relief Scrub - Other [...] tissue Entry 1 Skin Integrity Bruised, Intact, [employer], Skin Abnormality Yes Warm, and Dry Abnormality [...] Type TUBE NASOGASTIC SUMP Location MOUTH 18FR [[id number]][F] Quantity 1 Inserted By Geri Guerrero Present [...] Present Upon Arrival No Inserted LF 16FR [[id number]][F] Insertion Date/Time 07/19/19 11:09:00 Urine Residual 350 [...] BLANKET MISTRAL AIR Quantity 1 Aid TORSO [[id number]][F] Fluid/Elba Unit Mistral warming system Setting HIGH/43C Body Site Upper anterior torso Last Modified By: Tosha Gould RN 07/19/19 10:34:51 Case Comments Finalized By: Juanita Stein CST Document Signatures Signed By: Tosha Gould RN 07/19/19 13:23 Juanita Stein CST 07/19/19 14:22 Normal [facility] Main OR PACU I Recordon Main OR PACU I Record PACU Phase I Document Type FT Summary Primary Physician: Javan Goel MD Finalized Date/Time: 07/19/19 13:51:28 Pt. Name: SUKHDEV SCHWARTZ/Sex: 1985 Female Med Rec #: [id number] Physician: Aron ALVARADO DO Financial #: [id number] Pt. Type: I Room/Bed: [place] [address] Admit/Disch: 07/17/19 20:55:00 - Institution: Case Times [...] By: Mariama Cadena RN 07/19/19 13:51 Normal [facility] Main OR Preoperative Recordo n 07-19-2019 Main OR Preoperative Record PreOp Document Type FT Summary Primary Physician: Javan Goel MD Finalized Date/Time: 07/19/19 11:50:30 Pt. Name: SUKHDEV SCHWARTZ Antoni HoltB./Sex: 1985 Female Med Rec #: [id number] Physician: Aron ALVARADO DO Financial #: [id number] Pt. Type: I Room/Bed: [facility] Admit/Disch: 07/17/19 20:55:00 - Institution: Case [...] By: Tosha Gould RN 07/19/19 11:50 Normal [facility] Progress Note-Physicianon Progress Note-Physician ACUTE CARE [...] Auto: 11.9 % Low (07/19/19 05:39:00 EDT) [place] Auto: 5.8 % (07/19/19 05:39:00 EDT) Eos Auto: 1.1 % (07/19/19 05:39:00 EDT) Basophil Auto: 0.2 % (07/19/19 05:39:00 EDT) Neutro Absolute: 7.3 E9/L (07/19/19 05:39:00 EDT) Lymph Absolute: 1.1 E9/L (07/19/19 05:39:00 EDT) [place] Absolute: 0.5 E9/L (07/19/19 05:39:00 EDT) Eos [...] Goel MD Trauma/Critical Care/Acute Care Surgery Attending [facility] Comment on above: Result Comment: Elec tronically Signed By: Amando GUSTAFSON, Javan J\.br\Date and Time Signed: 07/19/19 10:32 EDT eGFRon 07-19-2019 GFR/1.73 sq M predicted among blacks MDRD (S/P/Bld) [Vol rate/Area] mL/min/{1.73_m2} Normal >=59 [facility] Comment on above: Order Comment: Order added by Discern Expert. Result Comment: eGFR is race adjusted. AA=. Performed By: #### 1 5853487, 7766175, 0883859, 3987974, 2981990, 6785711, 32459369, 6911097 #### [facility] [address] [place] [address] GFR/1.73 sq M predicted among non-blacks MDRD (S/P/Bld) [Vol rate/Area] mL/min/{1.73_m2} Normal >=59 [facility] Comment on above: Order Comment: Order added by Discern Expert. Result Comment: City Designer ivan kidney disease could be indicated at eGFR's of less than 60 mL/min/1.73m2. Kidney failure is indicated at less than 15 mL/min/1.73m2. Performed By: #### 1 1023012, 1626373, 2157558, 0507789, 3464220, 7052670, 23554065, 4237138 #### [facility] [address] [place] [address] Auto Diffon 07-18-2019 Basophils/100 WBC (Bld) 0.4 % Normal 0.0-2.0 [facility] Comment on above: Order Comment: Order Added by Discern Expert. Performed By: #### 1 5699108, 4357968, 3482824, 7883979, 3566798, 0017227, 99779497, 5460475 #### [facility] [address] [place] [address] Basophils/Leukocyte s Auto (Bld) [Pure # fraction] 0.0 E9/L Normal 0.0-0.2 [facility] Comment on above: Order Comment: Order Added by Discern Expert. Performed By: #### 1 2190295, 6390864, 5795507, 3099346, 5284878, 6369397, 77553552, 0046351 #### [facility] [address] [place] [address] Eosinophils/100 WBC (Bld) 0.4 % Normal 0.0-8.0 [facility] Comment on above: Order Comment: Order Added by Discern Expert. Performed By: #### 1 4490884, 2766339, 1854716, 2779925, 8552260, 2575709, 33936384, 8002080 #### [facility] [address] [place] [address] Eosinophils/Leukocy dariel Auto (Bld) [Pure # fraction] 0.0 E9/L Normal 0.0-0.5 [facility] Comment on above: Order Comment: Order Added by Discern Expert. Performed By: #### 1 9030472, 5756481, 3064469, 4704719, 6131725, 6497804, 77321320, 7821369 #### [facility] [address] [place] [address] Lymphocytes/100 WBC (Bld) 19.3 % Normal 14.0-50.0 [facility] Comment on above: Order Comment: Order Added by Discern Expert. Performed By: #### 1 9532779, 4891921, 6900211, 2927265, 2934377, 4677071, 69953991, 3570306 #### [facility] [address] [place] [address] Lymphocytes/Leukocy dariel Auto (Bld) [Pure # fraction] 1.5 E9/L Normal 1.0-4.0 [facility] Comment on above: Order Comment: Order Added by Discern Expert. Performed By: #### 1 7411003, 2043834, 2446513, 5686245, 5782116, 7865580, 07005747, 2103066 #### [facility] [address] [place] [address] Monocytes/100 WBC (Bld) 6.4 % Normal 4.0-14.0 [facility] Comment on above: Order Comment: Order Added by Discern Expert. Performed By: #### 1 9808921, 0797742, 1993086, 8697620, 0474354, 4794414, 27772566, 6476022 #### [facility] [address] [place] [address] Monocytes/Leukocyte s Auto (Bld) [Pure # fraction] 0.5 E9/L Normal 0.2-1.0 [facility] Comment on above: Order Comment: Order Added by Discern Expert. Performed By: #### 1 2705633, 6254935, 3918236, 0538398, 0777540, 6739983, 16700524, 4290874 #### [facility] [address] [place] [address] Neutrophils/100 WBC (Bld) 73.5 % Normal 36.0-75.0 [facility] Comment on above: Order Comment: Order Added by Discern Expert. Performed By: #### 1 3667554, 8583609, 5961215, 5070188, 2066348, 7933374, 28586699, 6559387 #### [facility] [address] [place] [address] Neutrophils/Leukocy dariel Auto (Bld) [Pure # fraction] 5.7 E9/L Normal 2.0-7.5 [facility] Comment on above: Order Comment: Order Added by Discern Expert. Performed By: #### 1 2599477, 3963416, 0001132, 4373145, 7162500, 0842798, 80176262, 0412144 #### [facility] [address] [place] [address] Basophils/100 WBC (Bld) 0.3 % Normal 0.0-2.0 [facility] Comment on above: Order Comment: Order Added by Discern Expert. Performed By: #### 1 2170621, 0715129, 7527834, 8811521, 1290295, 3415998, 44054536, 4722657 #### [facility] [address] [place] [address] Basophils/Leukocyte s Auto (Bld) [Pure # fraction] 0.0 E9/L Normal 0.0-0.2 [facility] Comment on above: Order Comment: Order Added by Discern Expert. Performed By: #### 1 6062069, 3723108, 4901970, 7214178, 3519760, 6963080, 65132872, 9076823 #### [facility] [address] [place] [address] Eosinophils/100 WBC (Bld) 0.6 % Normal 0.0-8.0 [facility] Comment on above: Order Comment: Order Added by Discern Expert. Performed By: #### 1 0751996, 5015331, 1128660, 6736917, 0458181, 8739589, 79481705, 3900371 #### [facility] [address] [place] [address] Eosinophils/Leukocy dariel Auto (Bld) [Pure # fraction] 0.1 E9/L Normal 0.0-0.5 [facility] Comment on above: Order Comment: Order Added by Discern Expert. Performed By: #### 1 9818382, 1530527, 9122084, 7535170, 2159671, 1591277, 45132201, 8031311 #### [facility] [address] [place] [address] Lymphocytes/100 WBC (Bld) 6.4 % Low 14.0-50.0 [facility] Comment on above: Order Comment: Order Added by Discern Expert. Performed By: #### 1 0185677, 1369497, 5150024, 7546742, 0004098, 1018751, 61149734, 4880861 #### [facility] [address] [place] [address] Lymphocytes/Leukocy dariel Auto (Bld) [Pure # fraction] 0.8 E9/L Low 1.0-4.0 [facility] Comment on above: Order Comment: Order Added by Discern Expert. Performed By: #### 1 6608821, 4435211, 6928795, 4102357, 5265053, 7530330, 31321777, 5774771 #### [facility] [address] [place] [address] Monocytes/100 WBC (Bld) 5.5 % Normal 4.0-14.0 [facility] Comment on above: Order Comment: Order Added by Discern Expert. Performed By: #### 1 7033363, 7664230, 0214383, 6282120, 4001099, 1750045, 32649942, 0684050 #### [facility] [address] [place] [address] Monocytes/Leukocyte s Auto (Bld) [Pure # fraction] 0.7 E9/L Normal 0.2-1.0 [facility] Comment on above: Order Comment: Order Added by Discern Expert. Performed By: #### 1 9273994, 1671373, 6157075, 1516362, 1198034, 6399427, 00453507, 2035693 #### [facility] [address] [place] [address] Neutrophils/100 WBC (Bld) 87.2 % High 36.0-75.0 [facility] Comment on above: Order Comment: Order Added by Discern Expert. Performed By: #### 1 7765546, 5997355, 7098761, 8297076, 4187972, 2858114, 31649756, 4701562 #### [facility] [address] [place] [address] Neutrophils/Leukocy dariel Auto (Bld) [Pure # fraction] 11.3 E9/L High 2.0-7.5 [facility] Comment on above: Order Comment: Order Added by Discern Expert. Performed By: #### 1 8852166, 5316110, 9481004, 7872238, 8764275, 6303584, 66034780, 2580141 #### [facility] [address] [place] [address] BMPon 07-18-2019 Urea nitrogen/Creatinine [Mass ratio] 22 No Units High 10-20 [facility] Comment on above: Performed By: #### 1 0000224, 3137568, 2531871, 7709278, 5091117, 3770698, 34044933, 5775812 #### [facility] [address] [place] [address] Creatinine [Mass/Vol] 0.5 mg/dL Normal 0.5-1.3 [facility] Comment on above: Performed By: #### 1 4265226, 3892678, 8209461, 1789985, 7480452, 0709029, 19828504, 6031952 #### [facility] [address] [place] [address] Urea nitrogen [Mass/Vol] 11 mg/dL Normal 5-21 [facility] Comment on above: Performed By: #### 1 4055749, 4525842, 5090807, 8410711, 9998367, 0809340, 44294405, 1666565 #### [facility] [address] [place] [address] Anion gap [Moles/Vol] 12 mmol/L Normal 6-16 [facility] Comment on above: Performed By: #### 1 5554947, 6207557, 6983191, 7805627, 5646461, 6081929, 45402657, 2973005 #### [facility] [address] [place] [address] Calcium [Mass/Vol] 8.8 mg/dL Low 8.9-11.1 [facility] Comment on above: Performed By: #### 1 8006161, 3949667, 6230273, 2575889, 5445476, 4717265, 42668860, 3199656 #### [facility] [address] [place] [address] Chloride [Moles/Vol] 109 mmol/L Normal 101-111 [facility] Comment on above: Performed By: #### 1 9720146, 0306250, 2845084, 1412117, 5408577, 7190605, 60249758, 6785446 #### [facility] [address] [place] [address] CO2 [Moles/Vol] 24 mmol/L Normal 21-31 [facility] Comment on above: Performed By: #### 1 9803472, 0221391, 9946670, 9005512, 3321112, 7542300, 69033464, 3919985 #### [facility] [address] [place] [address] Glucose [Mass/Vol] 104 mg/dL Normal 55-199 [facility] Comment on above: Result Comment: If t his glucose result represents a fasting glucose, interpretation should refer to the following reference range: 55-99 mg/dL Performed By: #### 1 2951893, 7559721, 4953514, 8139321, 8019120, 4549460, 54600680, 8792083 #### [facility] [address] [place] [address] Potassium [Moles/Vol] 3.8 mmol/L Normal 3.5-5.3 [facility] Comment on above: Performed By: #### 1 7675781, 2336578, 4755850, 8279513, 6749161, 2469468, 52625910, 4560805 #### [facility] [address] [place] [address] Sodium [Moles/Vol] 141 mmol/L Normal 135-145 [facility] Comment on above: Performed By: #### 1 6373004, 6750163, 6028547, 6395962, 0588192, 0541433, 65293830, 5085004 #### [facility] [address] [place] [address] Creatinine [Mass/Vol] 0.5 mg/dL Normal 0.5-1.3 [facility] Comment on above: Performed By: #### 1 8061017, 9690291, 7675299, 0086603, 2220299, 2947845, 92298289, 0119907 #### [facility] [address] [place] [address] Urea nitrogen [Mass/Vol] 13 mg/dL Normal 5-21 [facility] Comment on above: Performed By: #### 1 4782953, 5131107, 0590297, 3592680, 7819170, 2263698, 26571839, 6629884 #### [facility] [address] [place] [address] Urea nitrogen/Creatinine [Mass ratio] 26 No Units High 10-20 [facility] Comment on above: Performed By: #### 1 6970023, 2990864, 3730760, 3954913, 6884906, 3221830, 82504136, 2185198 #### [facility] [address] [place] [address] Anion gap [Moles/Vol] 13 mmol/L Normal 6-16 [facility] Comment on above: Performed By: #### 1 6174842, 8899141, 4965814, 7230699, 4887250, 1334559, 10876224, 7498591 #### [facility] [address] [place] [address] Calcium [Mass/Vol] 9.3 mg/dL Normal 8.9-11.1 [facility] Comment on above: Performed By: #### 1 7657838, 1585823, 1408101, 1676126, 6862228, 0981111, 12829438, 7389630 #### [facility] [address] [place] [address] Chloride [Moles/Vol] 105 mmol/L Normal 101-111 [facility] Comment on above: Performed By: #### 1 1490115, 2531558, 3817913, 9207041, 6779726, 6763242, 17615526, 6515084 #### [facility] [address] [place] [address] CO2 [Moles/Vol] 26 mmol/L Normal 21-31 [facility] Comment on above: Performed By: #### 1 3171070, 4935821, 0492567, 7742125, 3722548, 6232995, 99057304, 4676143 #### [facility] [address] [place] [address] Glucose [Mass/Vol] 107 mg/dL Normal 55-199 [facility] Comment on above: Result Comment: If t his glucose result represents a fasting glucose, interpretation should refer to the following reference range: 55-99 mg/dL Performed By: #### 1 4446933, 9173896, 0981570, 2867604, 9877165, 3347965, 09118600, 0671411 #### [facility] [address] [place] [address] Potassium [Moles/Vol] 3.7 mmol/L Normal 3.5-5.3 [facility] Comment on above: Performed By: #### 1 4390319, 5088843, 1029480, 4564499, 2205856, 6222721, 32538131, 5392447 #### [facility] [address] [place] [address] Sodium [Moles/Vol] 140 mmol/L Normal 135-145 [facility] Comment on above: Performed By: #### 1 6133445, 2445894, 0440963, 3269473, 6381413, 5790544, 96047614, 5427478 #### [facility] [address] [place] [address] 38684 CBC w/ Auto Diffon 9 Erythrocyte distribution width (RBC) [Ratio] 13.7 % Normal 10.9-14.2 [facility] Comment on above: Performed By: #### 1 7704896, 9706372, 6999755, 8012514, 8842958, 6725459, 44179838, 1093767 #### [facility] [address] [place] [address] 78265 Hematocrit (Bld) [Volume fraction] 34.8 % Normal 34.0-46.0 [facility] Comment on above: Performed By: #### 1 8910461, 8482593, 2057812, 6011952, 2225094, 2860137, 26135509, 9238828 #### [facility] [address] [place] [address] 20581 Hemoglobin (Bld) [Mass/Vol] 12.0 g/dL Normal 12.0-16.0 [facility] Comment on above: Performed By: #### 1 4821908, 6319389, 2851233, 9254558, 4234087, 9660245, 48417120, 2009525 #### [facility] [address] [place] [address] 73014 MCH (RBC) [Entitic mass] 30.5 pg Normal 27.0-34.0 [facility] Comment on above: Performed By: #### 1 3991243, 9720727, 1116024, 4581349, 1238612, 9962926, 12765218, 6083014 #### [facility] [address] [place] [address] 60412 MCHC (RBC) [Mass/Vol] 34.5 g/dL Normal 33.3-35.7 [facility] Comment on above: Performed By: #### 1 8218823, 1617177, 0799949, 6615400, 0565839, 3441456, 87549151, 3265584 #### [facility] [address] [place] [address] MCV (RBC) [Entitic vol] 88.6 fL Normal 80.0-100.0 [facility] Comment on above: Performed By: #### 1 4874476, 1868531, 0915736, 1573741, 2328990, 3254192, 79226356, 8203381 #### [facility] [address] [place] [address] Platelet mean volume (Bld) [Entitic vol] 7.9 fL Normal 6.4-10.8 [facility] Comment on above: Performed By: #### 1 7883073, 8763927, 2629180, 5350047, 3075587, 6428352, 16791467, 6692534 #### [facility] [address] [place], [place] [address] Platelets (Bld) [#/Vol] 256.0 E9/L Normal 150.0-500.0 [facility] Comment on above: Performed By: #### 1 8357035, 4819892, 1321535, 8161160, 7094432, 4142364, 15824139, 2610387 #### [facility] [address] [place] [address] 18649 RBC (Bld) [#/Vol] 3.9 E12/L Low 4.3-5.9 [facility] Comment on above: Performed By: #### 1 0001353, 6759152, 8106936, 7278070, 0868115, 3814586, 18160740, 9898274 #### [facility] [address] [place] [address] WBC corrected for nucl RBC Auto (Bld) [#/Vol] 7.8 E9/L Normal 4.0-11.0 [facility] Comment on above: Performed By: #### 1 9952241, 0736283, 7382769, 2443238, 8804563, 1144538, 36615175, 6676945 #### [facility] [address] [place] [address] Erythrocyte distribution width (RBC) [Ratio] 13.2 % Normal 10.9-14.2 [facility] Comment on above: Performed By: #### 1 8158649, 5134512, 0765866, 6256342, 1315242, 5603478, 49118518, 2565957 #### [facility] [address] [place] [address] Hematocrit (Bld) [Volume fraction] 38.9 % Normal 34.0-46.0 [facility] Comment on above: Performed By: #### 1 8493209, 7643655, 7225079, 3867354, 8017164, 8848295, 86254541, 8687927 #### [facility] [address] [place] [address] Hemoglobin (Bld) [Mass/Vol] 13.2 g/dL Normal 12.0-16.0 [facility] Comment on above: Performed By: #### 1 9034862, 5898583, 3242589, 8909040, 8172446, 1692107, 27296114, 4901597 #### [facility] [address] [place] [address] 86408 MCH (RBC) [Entitic mass] 30.0 pg Normal 27.0-34.0 [facility] Comment on above: Performed By: #### 1 5476747, 5419789, 7434671, 1430676, 9592847, 1441475, 19442360, 2277368 #### [facility] [address] [place] [address] MCHC (RBC) [Mass/Vol] 34.0 g/dL Normal 33.3-35.7 [facility] Comment on above: Performed By: #### 1 3279941, 5998727, 8193745, 8895900, 6547206, 7347253, 85195460, 1497203 #### [facility] [address] [place] [address] 11890 MCV (RBC) [Entitic vol] 88.1 fL Normal 80.0-100.0 [facility] Comment on above: Performed By: #### 1 6630359, 0584826, 2083483, 5112796, 5433785, 7514693, 50154699, 0859017 #### [facility] [address] [place] [address] 03117 Platelet mean volume (Bld) [Entitic vol] 8.3 fL Normal 6.4-10.8 [facility] Comment on above: Performed By: #### 1 5713188, 4747612, 8516767, 3189322, 3121532, 6336573, 64341938, 0378386 #### [facility] [address] [place] [address] 31762 Platelets (Bld) [#/Vol] 253.0 E9/L Normal 150.0-500.0 [facility] Comment on above: Result Comment: Slid e reviewed by CHARO. Performed By: #### 1 0351896, 5250714, 1130288, 1151724, 1484288, 4800236, 91905689, 1233522 #### [facility] [address] [place] [address] 78891 RBC (Bld) [#/Vol] 4.4 E12/L Normal 4.3-5.9 [facility] Comment on above: Performed By: #### 1 7290296, 5634519, 1568566, 2946632, 3041884, 0378397, 47186078, 9409194 #### [facility] [address] [place] [address] 25639 WBC corrected for nucl RBC Auto (Bld) [#/Vol] 13.0 E9/L High 4.0-11.0 [facility] Comment on above: Performed By: #### 1 3302426, 5141618, 6001013, 1020544, 3610732, 4283013, 70041843, 9008396 #### [facility] [address] [place] [address] Consultation Noteon 07-18-20 Consultation Note ACUTE CARE [...] Lymph Auto: 19.3 % (07/18/19 05:33:00 EDT) [place] Auto: 6.4 % (07/18/19 05:33:00 EDT) Eos Auto: 0.4 % (07/18/19 05:33:00 EDT) Basophil Auto: 0.4 % (07/18/19 05:33:00 EDT) Neutro Absolute: 5.7 E9/L (07/18/19 05:33:00 EDT) Lymph Absolute: 1.5 E9/L (07/18/19 05:33:00 EDT) [place] Absolute: 0.5 E9/L (07/18/19 05:33:00 EDT) Eos [...] MD, FACS Trauma/Critical Care/Acute Care Surgery Attending [facility] Comment on above: Result Comment: Elec [...] since 2am, states lab work done at [facility] today liver enzymes were elevated history of pancreatitis History of Present Illness 33 years old white female admitted to [facility] with sudden onset of abdominal pain, [...] list: All Problems Pancreatitis / SNOMED CT 489377753 / Confirmed Hypothyroidism / SNOMED CT 38984437 / Confirmed Ovarian dysfunction / SNOMED CT 49213038 / Confirmed Histories Past Medical History: No [...] Auto 73.5 % Lymph Auto 19.3 % [place] Auto 6.4 % Eos Auto 0.4 % Basophil Auto 0.4 % Neutro Absolute 5.7 E9/L Lymph Absolute 1.5 E9/L [place] Absolute 0.5 E9/L Eos Absolute 0.0 E9/L [...] % HI Lymph Auto 6.4 % LOW [facility] Auto 5.5 % Eos Auto 0.6 % Basophil Auto 0.3 % Neutro Absolute 11.3 E9/L HI Lymph Absolute 0.8 E9/L LOW [place] Absolute 0.7 E9/L Eos Absolute 0.1 E9/L [...] related complications, she agreed to proceed Normal [facility] Comment on above: Result Comment: Elec tronically Signed By: CAPRICE GUSTAFSON, Abhinav\.br\Date and Time Signed: 07/18/19 10:01 EDT ED Clinical Summaryon 2018 ED Clinical Summary (Inserted Image. Sachi ble to display) [place] [id number] ED Clinical Summary Person Information Name: SUKHDEV SCHWARTZ [place] Age: 33 Years : 1985 12:00 AM Sex: Female Language: Martiniquais PCP: LOLI MATIAS MD Marital Status: Phone: [phone] Visit Id: Visit Reason: Vomiting; Nausea; Abdominal pain; ABD PAIN, NAUSEA Speciality: Acuity: 3 Enc Type: Emergency Med Service: Emergency Arrival: 07/17/2019 8:55 PM Discharge: LOS: 000 03:53 Checkin: 07/17/2019 8:55 PM Checkout: 07/18/2019 12:48 AM Dispo Type: Admitted as IP to this [facility] EVENTS: Event Name Event Status Request Date/Time [...] 07/18/2019 12:48 AM 07/18/2019 12:48 AM ADDRESS: [facility] [address] [place] [id number] [facility] DOC NOTES: MEDICAL INFORMATION: Prescriptions Given: PATIENT EDUCATION INFORMATION: Instructions: Follow up: DIAGNOSIS: Normal [facility] ED Patient Education Noteon 07-18-2019 ED Patient Education Note Normal [facility] ED Patient Summaryon ED Patient Summary (Inserted Image. Sachi ble to display) [address] [address] Patient Discharge Instructions Person Information Name: SUKHDEV SCHWARTZ Age: 33 Years Arrival Date: 07/17/2019 8:55 PM Discharge Diagnosis: Primary Care Physician: LOLI MATIAS MD Provider Information Primary Provider: Rubio MD, Mehran Advanced Check Examiner:Oswaldo Fischer PA-C The exam and treatment you received in the Emergency Department were for an urgent problem and are not intended as complete care. It is important that you follow up with a doctor, nurse practitioner, or physician?s sales support assistant for ongoing care. If your symptoms [...] opioids can be used to help relieve itqcdwyo-an-djapre pain and are often prescribed following a [...] be struggling with addiction, tell your health healthcare corporate account director and ask for guidance or call [facility]?S National Helpline at 1-410-803-MHPO. v Source: [place] Department of Health and Human Services/Center for Disease Control & Prevention [facility] Medications Given: Medication Dose Route Sodium Chloride 0.9% intravenous solution 1000.00 mL Initial Volume 1000.00 mL/hr IV Left Antecubital Ana morphine 4.00 mg IV Push Left Anterior Chest ondansetron 4.00 mg IV Push Left Antecubital [place] nalbuphine 5.00 mg IV Push Left Antecubital [place] Medication Information: Medications to Continue with No [...] Drug [place] [place] Thank you for choosing [facility] Patient Education Materials: JAMES Bain BRITTANY F , have received the following patient education materials/instructions and have verbalized understanding: Patient Education Materials: Follow-up Instructions: Prescriptions: Patient Signature __ Date Clinician/Nurse Signature Date 07/18/19 00:48:50 Normal [facility] Hep Func Panelon 07-18-2019 Albumin [Mass/Vol] 1.2 g/dL Normal 1.1-2.2 [facility] Comment on above: Performed By: #### 1 0460137, 3370268, 2655327, 9227513, 4191517, 4466528, 08551545, 1293874 #### [facility] [address] [place] [address] ALP [Catalytic activity/Vol] 61 Int._Unit/L Normal 21-98 [facility] Comment on above: Performed By: #### 1 7074493, 3977729, 7241779, 8205674, 2155778, 6266897, 31727167, 8481743 #### [facility] [address] [place] [address] 34298 ALT No additional P-5'-P [Catalytic activity/Vol] 119 Int._Unit/L High 6-46 [facility] Comment on above: Performed By: #### 1 9922299, 9386803, 2353540, 1791312, 7560786, 4921112, 87768018, 6308558 #### [facility] [address] [place] [address] 12529 AST [Catalytic activity/Vol] 106 Int._Unit/L High 5-43 [facility] Comment on above: Performed By: #### 1 8573011, 9864982, 3010429, 0513835, 1589624, 0046507, 60969090, 5050970 #### [facility] [address] [place] [address]7428 Bilirubin.direct [Mass/Vol] 1.6 mg/dL High 0.1-0.9 [facility] Comment on above: Performed By: #### 1 0809102, 9482846, 7120266, 3542971, 9286732, 1449799, 46647925, 5480288 #### [facility] [address] [place] [address]2529 Globulin (S) [Mass/Vol] 2.7 g/dL Normal 1.4-4.0 [facility] Comment on above: Performed By: #### 1 7680399, 0091873, 3824173, 1617574, 5896745, 5265631, 19776510, 3416771 #### [facility] [address] [place] [address] 88872 Albumin [Mass/Vol] 3.3 g/dL Normal 3.3-5.0 [facility] Comment on above: Performed By: #### 1 6217710, 2033050, 0225251, 0398674, 5770917, 0347100, 36718616, 3224393 #### [facility] [address] [place] [address] Bilirubin [Mass/Vol] 3.6 mg/dL High 0.0-1.1 [facility] Comment on above: Performed By: #### 1 0087604, 5722366, 0115726, 3994710, 2528915, 8190175, 20568250, 7465333 #### [facility] [address] [place] [address] Bilirubin.direct [Mass/Vol] 2.0 mg/dL High 0.1-0.4 [facility] Comment on above: Performed By: #### 1 7444273, 0440302, 0573411, 0566382, 2334621, 5405156, 34703015, 0647264 #### [facility] [address] [place] [address] 39663 Protein [Mass/Vol] 6.0 g/dL Normal 6.0-7.8 [facility] Comment on above: Performed By: #### 1 6351674, 6533214, 5443263, 4570586, 6558942, 4135835, 61992128, 7903243 #### [facility] [address] [place] [address] 11667 Albumin [Mass/Vol] 3.8 g/dL Normal 3.3-5.0 [facility] Comment on above: Performed By: #### 1 8303615, 1898046, 1808510, 4405007, 1080611, 3187787, 56453344, 2532895 #### [facility] [address] [place] [address] Albumin [Mass/Vol] 1.4 g/dL Normal 1.1-2.2 [facility] Comment on above: Performed By: #### 1 4860310, 0678180, 5557128, 7209602, 7481458, 0860036, 25297641, 1478291 #### [facility] [address] [place] [address] ALP [Catalytic activity/Vol] 69 Int._Unit/L Normal 21-98 [facility] Comment on above: Performed By: #### 1 1442243, 1916819, 4459953, 7489123, 2518709, 1676730, 08452423, 8732187 #### [facility] [address] [place] [address] ALT No additional P-5'-P [Catalytic activity/Vol] 144 Int._Unit/L High 6-46 [facility] Comment on above: Performed By: #### 1 7386698, 0167674, 6585519, 3021244, 1153373, 6286927, 19882227, 5571259 #### [facility] [address] [place] [address] 89865 AST [Catalytic activity/Vol] 179 Int._Unit/L High 5-43 [facility] Comment on above: Performed By: #### 1 7413451, 6595305, 5736526, 7282974, 8737572, 8880118, 64685024, 8899250 #### [facility] [address] [place] [address] 34437 Bilirubin [Mass/Vol] 3.6 mg/dL High 0.0-1.1 [facility] Comment on above: Performed By: #### 1 4992345, 4095849, 0401156, 9829168, 4640418, 6997042, 97527284, 9278545 #### [facility] [address] [place] [address] Bilirubin.direct [Mass/Vol] 1.5 mg/dL High 0.1-0.9 [facility] Comment on above: Performed By: #### 1 5285919, 9577596, 7685758, 6792313, 8070384, 4052633, 60168602, 9697238 #### [facility] [address] [place] [address] 19362 Bilirubin.direct [Mass/Vol] 2.1 mg/dL High 0.1-0.4 [facility] Comment on above: Performed By: #### 1 6501712, 4085737, 4169383, 6789975, 5765421, 8530664, 22965313, 8226370 #### [facility] [address] [place] [address] Globulin (S) [Mass/Vol] 2.7 g/dL Normal 1.4-4.0 [facility] Comment on above: Performed By: #### 1 5947378, 6886534, 5371701, 3515850, 5818933, 6575376, 26649204, 0830966 #### [facility] [address] [place] [address] Protein [Mass/Vol] 6.5 g/dL Normal 6.0-7.8 [facility] Comment on above: Performed By: #### 1 0651105, 4916600, 2710524, 8880110, 8434661, 6707579, 72152663, 2869039 #### [facility] [address] [place] [address] History and Physicalon 07-18 History and Physical [...] states she had a hospitalization while in [place] last month with the same was considered [...] Auto: 6.4 % Low (07/17/19 22:12:00 EDT) [facility] Auto: 5.5 % (07/17/19 22:12:00 EDT) Eos Auto: 0.6 % (07/17/19 22:12:00 EDT) Basophil Auto: 0.3 % (07/17/19 22:12:00 EDT) Neutro Absolute: 11.3 E9/L High (07/17/19 22:12:00 EDT) Lymph Absolute: 0.8 E9/L Low (07/17/19 22:12:00 EDT) [place] Absolute: 0.7 E9/L (07/17/19 22:12:00 EDT) Eos [...] 2: Mother. Thyroid cancer: Mother and Sister. [facility] Comment on above: Result Comment: Elec tronically Signed By: Aron ALVARADO DO\.br\Date and Time Signed: 07/18/19 02:27 EDT Interdisciplinary Note - Arcadio e Manageron 07-18-2019 INR Coag (Bld) [Relative time] Rounding with Dr. Benjamin, Felicia ACEVEDO, Rosie [facility], and Jeanette GOODRICH with another patient. [...] needs at discharge. lives with spouse. Normal [facility] Lactic Acidon 07-18-2019 Lactate [Mass/Vol] 10.1 mg/dL Normal 4.5-19.8 [facility] Comment on above: Performed By: #### 1 7924927, 0126254, 8367089, 1499802, 8627936, 4375641, 52735753, 7289003 #### [facility] [address] [place] [address] Lipase Levelon 07-18-2019 Lipase [Catalytic activity/Vol] U/L High 13-58 [facility] Comment on above: Result Comment: Resu lt verified by dilution Performed By: #### 1 8474621, 8512258, 4480891, 3564606, 1304851, 8179093, 45406310, 8323819 #### [facility] [address] [place] [address] Main OR Intraoperative Recor don 07-18-2019 Main OR Intraoperative Record IntraOp Document Type FT Summary Primary Physician: Abhinav REDDY MD Finalized Date/Time: 07/18/19 14:39:36 Pt. Name: SUKHDEV SCHWARTZ/Sex: 1985 Female Med Rec #: [id number] Physician: Aron ALVARADO DO Financial #: [id number] Pt. Type: I Room/Bed: [place] [address] Admit/Disch: 07/17/19 20:55:00 - Institution: Case Times FT Entry 1 Patient Times In Room 07/18/19 09:58:00 Out Room 07/18/19 10:24:00 Procedure Times Start 07/18/19 10:05:00 Stop 07/18/19 10:17:00 Anesthesia Times Start 07/18/19 09:58:00 Stop 07/18/19 10:24:00 Last Modified By: Juanita Stein CST 07/18/19 10:27:28 General Comments: 07/18/19 Chart opened to review and send charges Hilda Stein DATA WAREHOUSE SPECIALIST Case Attendance FT Entry 1 Entry 2 Entry 3 Case Attendee CAPRICE GUSTAFSON, Abhinav Eaton Jr DO, Davie Cabrera RN, Pamela Role Performed Surgeon - Primary Anesthesiologist of Research Development Director - Primary Record Time In 07/18/19 10:03:00 07/18/19 09:58:00 07/18/19 09:58:00 Time Out 07/18/19 10:24:00 07/18/19 10:24:00 07/18/19 10:24:00 Procedure ERCP(.) ERCP(.) ERCP(.) Comments Last Modified By: Deborah RN, Pamela Cabrera RN, Pamela Cabrera RN, Pamela 07/18/19 10:32:44 07/18/19 10:27:40 07/18/19 10:27:40 Entry 4 Entry 5 Entry 6 Case Attendee Reny Michaud DATA WAREHOUSE SPECIALIST, Shobha Nicolas RT, Kathy Turcios Role [...] Attendee Moy GOODRICH, Humaira Hooper Role Performed Research Development Director - Other Time In 07/18/19 09:58:00 Time [...] BAE, Davie Perry, Deborah GOODRICH, Pamela, Jerry DATA WAREHOUSE SPECIALIST, Jaswant Yeager, Reny K, Fidencio RT, [...] and tissue Entry 1 Skin Integrity Intact, [employer], Warm, and Skin Abnormality No Dry Outcomes [...] RN Patient Status Stable Skin. Condition Intact, [employer], Warm, and Dry Airway Maintenance Oxygen in Use? No Airway Device N/A Outcomes Met? Yes Last Modified By: Pamela Cabrera RN 07/18/19 10:15:20 Post-Care Text: The patient is free from signs and symptoms of injury related to transfer/transport General Comments: Report given to CORD SPLICER/AW mechanical technologist Administration FT Pre-Care Text: Verifies allergies, administers prescribed medications and solutions, administers prescribed antibiotic therapy and immunizing agents as ordered, evaluates response to medications Administers prescribed medications and solutions Entry 1 Expiration Date Yes Outcomes Met? Yes Verified Last Modified By: Pamela Cabrera RN 07/18/19 10:15:26 Post-Care Text: The patient received appropriate medication(s) safely administered during the perioperative period For [facility] please see scanned medication reconcilliation form for medications used at the field during the procedure. X-Rays and Images FT Pre-Care Text: Assess history of previous radiation exposure and implements protective measures Entry 1 X-Ray Type C-Arm Contrast Used? Yes Outcomes Met? Yes Last Modified By: Pamela Caberra RN 07/18/19 10:16:11 Post-Care Text: The patient is free from signs and symptoms of radiation injury Normal [facility] Main OR PACU I Recordon 10 Main OR PACU I Record PACU Phase I Document Type FT Summary Primary Physician: Abhinav REDDY MD Finalized Date/Time: 07/18/19 10:47:23 Pt. Name: SUKHDEV SCHWARTZ Antoni Garcia./Sex: 1985 Female Med Rec #: [id number] Physician: Aron ALVARADO DO Financial #: [id number] Pt. Type: I Room/Bed: [place] [address] Admit/Disch: 07/17/19 20:55:00 - Institution: Case Times [...] By: Carin Iverson RN 07/18/19 10:47 Normal [facility] Main OR Preoperative Recordo n 07-18-2019 Main OR Preoperative Record Holding Area Document Type FT Summary Primary Physician: Abhinav REDDY MD Finalized Date/Time: 07/18/19 09:36:36 Pt. Name: SEN SCHWARTZTRUMAN Garcia./Sex: 1985 Female Med Rec #: [id number] Physician: Aron ALVARADO DO Financial #: [id number] Pt. Type: I Room/Bed: [facility]/ Admit/Disch: 07/17/19 20:55:00 - Institution: Case [...] Patient states Yes Comment - Adult ip [id number] COMING postop adult Supervision supervision available Case [...] RN, Al, Kellen POZO 07/18/19 09:36 Normal [facility] PT & PTTon 07-18-2019 aPTT Coag (PPP) [Time] 28.1 second(s) Normal 25.1-36.5 [facility] Comment on above: Result Comment: Hepa rin therapeutic range (represented by Anti-Factor Xa activity of 0.2 - 0.4 U/mL) corresponds to PTT of 56.6 - 109.0 sec. Performed By: #### 1 7510089, 0915542, 7036303, 7150104, 9136907, 1912705, 01974803, 0121630 #### [facility] [address] [place] [address] INR Coag (PPP) [Relative time] 1.0 {INR} [facility] Comment on above: Result Comment: INR results are specifically intended to assess patients stabilized on long-term Anticoagulation therapy suggested INR?s ?Less Intensive Anticoagulation? 2.0 ? 3.0 Conventional Range 3.0 ? 4.5 Performed By: #### 1 4803678, 4428304, 9688681, 0668823, 8607854, 6450163, 77159621, 8661225 #### [facility] [address] [place] [address] PT Coag (PPP) [Time] 11.9 second(s) Normal 10.2-12.9 [facility] Comment on above: Performed By: #### 1 4692311, 7551133, 8828806, 4650124, 2979711, 0652959, 21355861, 6735262 #### [facility] [address] [place] [address] Prescriptions/Work Noteson 1 Prescriptions/Work Notes Pt to US at this time, via cart. Normal [facility] Progress Note-Nurseon 2018 Progress Note-Nurse SIMI Murillo aware of patient c/o pain. Normal [facility] Progress Note-Nurse Pt care report provi ded to JOLEEN Chavez at this time. Normal [facility] U BetaHcg Qualon 07-18-2019 HCG.beta subunit (U) [Moles/Vol] Negative Normal [facility] Comment on above: Performed By: #### 1 8847032, 9725236, 8918278, 5170330, 8745282, 1019055, 08799161, 4235055 #### [facility] [address] [place] [address] UA With Cult Reflexon 2018 Bacteria LM Ql (Urine sed) 1+ /HPF Abnormal Trace [facility] Comment on above: Performed By: #### 1 9786065, 4981590, 5806185, 6683731, 4272422, 8282424, 83389023, 6746920 #### [facility] [address] [place] [address] Bilirubin Ql (U) 3+ Abnormal Negative [facility] Comment on above: Performed By: #### 1 0914125, 4010966, 8979823, 6236336, 2124531, 1105474, 48632432, 8455319 #### [facility] [address] [place] [address] Clarity (U) SL CLOUDY Abnormal Clear [facility] Comment on above: Performed By: #### 1 9616047, 8127574, 1906420, 5627844, 8473974, 9383247, 83908631, 5490692 #### [facility] [address] [place] [address] Color (U) DARK YELLO Abnormal Yellow [facility] Comment on above: Performed By: #### 1 4045940, 3170455, 5266430, 7601577, 3528074, 6056518, 22259273, 9915836 #### [facility] [address] [place] [address] Crystals LM Ql (Urine sed) Present Normal [facility] Comment on above: Performed By: #### 1 5057949, 6066495, 4086766, 0133280, 3750012, 7585843, 63945619, 5778614 #### [facility] [address] [place] [address] Epithelial cells.squamous LM.HPF (Urine sed) [#/Area] 5-8 Normal 0-2 [facility] Comment on above: Performed By: #### 1 [id number], 6459465, 8077357, 1898805, 7093719, 7106125, 16207229, 7788866 #### [facility] [address] [place] [address] Glucose Test strip (U) [Mass/Vol] Negative Normal Negative [facility] Comment on above: Performed By: #### 1 [id number], 9196073, 0180310, 2315789, 9669384, 4261288, 47518742, 0529512 #### [facility] [address] [place] [address] Hemoglobin Ql (U) TRACE Abnormal Negative [facility] Comment on above: Performed By: #### 1 [id number], 3245769, 6504785, 7254330, 9715648, 4277436, 50747162, 8112769 #### [facility] [address] [place] [address] Ketones (U) [Mass/Vol] 3+ Abnormal Negative [facility] Comment on above: Performed By: #### 1 [id number], 6651892, 0007072, 3869768, 1091930, 2260117, 54400662, 6594245 #### [facility] [address] [place] [address] [place].plasma/Lith ium.RBC (Bld) [Mass ratio] 4-20 Normal 0-3 [facility] Comment on above: Performed By: #### 1 [id number], 2052029, 7811281, 6643696, 8312486, 5805154, 23760598, 9749201 #### [facility] [address] [place] [address] Mucus Ql (Urine sed) 3+ Normal [facility] Comment on above: Performed By: #### 1 [id number], 8507974, 5960156, 2275136, 4162499, 3480770, 95201178, 1649259 #### [facility] [address] [place] [address] Nitrite Ql (U) Negative Normal Negative [facility] Comment on above: Performed By: #### 1 1230536, 8263240, 7359540, 3232341, 1934943, 5185885, 10596527, 6251054 #### [facility] [address] [place] [address] pH (U) 6.0 [pH] 5.0-9.0 [facility] Comment on above: Performed By: #### 1 7623503, 0059518, 3095610, 6457566, 9086247, 5426548, 93162600, 6759764 #### [facility] [address] [place] [address] Protein (U) [Mass/Vol] TRACE Abnormal Negative [facility] Comment on above: Performed By: #### 1 3263980, 0450263, 9394252, 1887756, 7098989, 1923031, 55012952, 7209514 #### [facility] [address] [place] [address] Specific gravity (U) [Rel density] >=1.030 1.005-1.030 [facility] Comment on above: Performed By: #### 1 5164710, 0706688, 2609065, 0591387, 6031510, 8478040, 57575558, 3030210 #### [facility] [address] [place] [address] UA Spec Desc Clean Catch Normal [facility] Comment on above: Performed By: #### 1 1308576, 1742259, 7400511, 0470859, 0202558, 9255505, 08498552, 0110583 #### [facility] [address] [place] [address] Urobilinogen Qn (U) 2.0 {Payal'U}/dL Abnormal 0.0-1.0 [facility] Comment on above: Performed By: #### 1 1724124, 4397573, 8995339, 3906705, 4222772, 2890401, 20245963, 4227659 #### [facility] [address] [place] [address] WBC Auto Ql (U) TRACE Abnormal Negative [facility] Comment on above: Performed By: #### 1 3801709, 3574333, 6065309, 1887515, 2981227, 9335123, 44274316, 2971691 #### [facility] [address] [place] [address] WBC casts LM.LPF (Urine sed) [#/Area] 0-3 Normal [facility] Comment on above: Performed By: #### 1 2340132, 3595037, 9800225, 8933651, 9526784, 2800741, 21179269, 8519678 #### [facility] [address] [place] [address] WBC LM.HPF (Urine sed) [#/Area] 0-5 Normal 0-5 [facility] Comment on above: Performed By: #### 1 7917493, 4412295, 8828649, 2642408, 1399080, 8361023, 54147016, 6720951 #### [facility] [address] [place] [address] US Gallbladderon 07-18-2019 US Gallbladder Exam Date/Time: [...] MD Transcribed by: MADISON Technologist: LALY Earl [facility] XR ERCP Biliary Ducton 07-18 XR ERCP Biliary Duct Exam Date/Time: 07/18/2019 10:25 EDT Reason for Exam: ercp Report IMPRESSION: DISTAL COMMON BILE DUCT STONE, WITH APPARENT REMOVAL FOLLOWING PASSAGE OF A BALLOON CATHETER. SUSPECTED SHORT SEGMENT SPASM OF THE DISTAL MOST COMMON BILE DUCT. CLINICAL HISTORY: ERCP. COMMENT: 6 limited [id number] C-arm images were obtained during an ERCP [...] mGy = 62.1 Fluoro Time: 141.1s Normal [facility] eGFRon 07-18-2019 GFR/1.73 sq M predicted among blacks MDRD (S/P/Bld) [Vol rate/Area] mL/min/{1.73_m2} Normal >=59 [facility] Comment on above: Order Comment: Order added by Discern Expert. Result Comment: eGFR is race adjusted. AA=. Performed By: #### 1 [id number], 3311866, 2792062, 7425323, 9769039, 5768695, 92450935, 8274285 #### [facility] [address] [place] [address] GFR/1.73 sq M predicted among non-blacks MDRD (S/P/Bld) [Vol rate/Area] mL/min/{1.73_m2} Normal >=59 [facility] Comment on above: Order Comment: Order added by Discern Expert. Result Comment: City Designer ivan kidney disease could be indicated at eGFR's of less than 60 mL/min/1.73m2. Kidney failure is indicated at less than 15 mL/min/1.73m2. Performed By: #### 1 [id number], 5173225, 9525908, 7938146, 8634451, 7545413, 70269862, 0156696 #### [facility] [address] [place] [address] GFR/1.73 sq M predicted among blacks MDRD (S/P/Bld) [Vol rate/Area] mL/min/{1.73_m2} Normal >=59 [facility] Comment on above: Order Comment: Order added by Discern Expert. Result Comment: eGFR is race adjusted. AA=. Performed By: #### 1 4003934, 5143944, 4989420, 2827677, 1047159, 2850913, 52377593, 6790563 #### [facility] [address] [place] [address] GFR/1.73 sq M predicted among non-blacks MDRD (S/P/Bld) [Vol rate/Area] mL/min/{1.73_m2} Normal >=59 [facility] Comment on above: Order Comment: Order added by Discern Expert. Result Comment: City Designer ivan kidney disease could be indicated at eGFR's of less than 60 mL/min/1.73m2. Kidney failure is indicated at less than 15 mL/min/1.73m2. Performed By: #### 1 [id number], 4543681, 3529567, 2559694, 0342549, 3606065, 38783366, 4377395 #### [facility] [address] [place] [address] Amylaseon 07-17-2019 Amylase [Catalytic activity/Vol] 39 U/L 28 - 100 U/L [place] CBC Auto Differentialon 06-20 Basophils (Bld) [#/Vol] 0.00 10*3/uL [place] Basophils/100 WBC (Bld) 0 % 0 - 2 % [place] Differential Type YES [place] Eosinophils (Bld) [#/Vol] 0.10 10*3/uL [place] Eosinophils/100 WBC (Bld) 1 % 0 - 5 % [place] Erythrocyte distribution width (RBC) [Ratio] 13.3 % 12.1 - 15.2 % [place] Hematocrit (Bld) [Volume fraction] 36.1 % 36 - 46 % [place] Hemoglobin (Bld) [Mass/Vol] 12.3 g/dL 12 - 16 g/dL [place] Lymphocytes (Bld) [#/Vol] 1.50 10*3/uL [place] Lymphocytes/100 WBC (Bld) 23 % 15 - 40 % [place] MCH (RBC) [Entitic mass] 30.5 pg 26 - 34 pg [place] MCHC (RBC) [Mass/Vol] 34.1 g/dL 31 - 37 g/dL [place] MCV (RBC) [Entitic vol] 89.3 fL 80 - 100 fL [place] Monocytes (Bld) [#/Vol] 0.40 10*3/uL [place] Monocytes/100 WBC (Bld) 6 % 4 - 8 % [place] Platelet mean volume (Bld) [Entitic vol] NOT REPORTED 6 - 12 fL [place] Platelets (Bld) [#/Vol] 301 10*3/uL [place] Platelets (Bld) [#/Vol] NOT REPORTED [place] RBC (Bld) [#/Vol] 4.04 10*6/uL 4 - 5.2 m/uL [place] RBC morphology finding Nom (Bld) NOT REPORTED [place] Segmented neutrophils/100 WBC (Bld) 70 % 47 - 75 % [place] Segs Absolute 4.60 [place] WBC (Bld) [#/Vol] 6.6 10*3/uL [place] WBC (Bld) [#/Vol] NOT REPORTED per 100 WBC [place] WBC Morphology NOT REPORTED [place] Comprehensive Metabolic Pane avel 07-17-2019 Albumin [Mass/Vol] 4.4 g/dL 3.5 - 5.2 g/dL [place] Albumin/Globulin [Mass ratio] NOT REPORTED [place] ALP [Catalytic activity/Vol] 84 U/L 35 - 104 U/L [place] ALT [Catalytic activity/Vol] 153 U/L High 5 - 33 U/L [place] Anion gap [Moles/Vol] 11 mmol/L 9 - 17 mmol/L [place] AST [Catalytic activity/Vol] 243 U/L High <32 [place] Bilirubin Ql (U) 2.37 mg/dL High 0.3 - 1.2 mg/dL [place] Bun/Cre Ratio 27 High [place] Calcium [Mass/Vol] 9.9 mg/dL 8.6 - 10. 4 mg/dL [place] Chloride [Moles/Vol] 104 mmol/L 98 - 107 mmol/L [place] CO2 [Moles/Vol] 24 mmol/L 20 - 31 mmol/L [place] Creatinine [Mass/Vol] 0.49 mg/dL Low 0.5 - 0.9 mg/dL [place] GFR >60 >60 mL/min [place] GFR Non- >60 >60 mL/min [place] GFR/1.73 sq M predicted among non-blacks MDRD (S/P/Bld) [Vol rate/Area] [place] Comment on above: Average GFR for 30-3 9 years old: 107 mL/min/1.73sq m Chronic Kidney Disease: <60 mL/min/1.73sq m Kidney failure: <15 mL/min/1.73sq m eGFR calculated using average adult body mass. Additional eGFR calculator available at: http://www.[employer]/multiple_crcl_2012.htm GFR/1.73 sq M predicted among non-blacks MDRD (S/P/Bld) [Vol rate/Area] NOT REPORTED [place] Glucose [Mass/Vol] 97 mg/dL 70 - 99 mg/dL [place] Interpretation and review of laboratory results Abnormal [place] Potassium [Moles/Vol] 3.6 mmol/L Low 3.7 - 5.3 mmol/L [place] Protein [Mass/Vol] 7.5 g/dL 6.4 - 8.3 g/dL [place] Sodium [Moles/Vol] 139 mmol/L 135 - 144 mmol/L [place] Urea nitrogen [Mass/Vol] 13 mg/dL 6 - 20 mg/dL [place] Lipaseon 07-17-2019 Lipase [Catalytic activity/Vol] 20 U/L 13 - 60 U/L [place] Otheron 07-17-2019 Immature granulocytes (Bld) [#/Vol] NOT REPORTED 0 % [place] HEAD NECK SOFT TISSUE THY ROIDon 07-14-2019 Stable nodules with no follow-up needed. [place] EXAM: US HEAD NECK S OFT [...] lobe: 4.9 x 1.3 x 1.9 cm. [place], [place] Misha, Mhpn Incoming R adiant Results From [employer] - 07/14/2019 3:21 PM EDT EXAM: US [...] IMPRESSION: Stable nodules with no follow-up needed. [place] TSHon 07-07-2019 TSH Qn 0.78 m[IU]/L Normal 0.44 - 3.98 [facility] Comment on above: Result Comment: TSH testing is performed using different testing methodology at [facility] than at other [facility]. Direct result comparisons should only be made within the same method. . Patients receiving more than 5 mg/day of biotin may have interference in test results. A sample should be taken no sooner than eight hours after previous dose. Contact [phone] for additional information. Performed By: #### T SH2 #### [facility] [id number] [place] [address] TSHon 05-25-2019 TSH Qn 0.77 m[IU]/L Normal 0.44 - 3.98 [facility] Comment on above: Result Comment: TSH testing is performed using different testing methodology at [facility] than at [facility]. Direct result comparisons should only be made within the same method. . Patients receiving more than 5 mg/day of biotin may have interference in test results. A sample should be taken no sooner than eight hours after previous dose. Contact [phone] for additional information. Performed By: #### T SH2 #### [facility] [address] [place] [address] TSHon 01-18-2019 TSH Qn 0.75 m[IU]/L Normal 0.44 - 3.98 [facility] Comment on above: Result Comment: TSH testing is performed using different testing methodology at [facility] than at other [facility]. Direct result comparisons should only be made within the same method. . Patients receiving more than 5 mg/day of biotin may have interference in test results. A sample should be taken no sooner than eight hours after previous dose. Contact [phone] for additional information. Performed By: #### T SH2 #### [facility] [address] [place] [address] TSHon 01-10-2019 TSH Qn 1.27 m[IU]/L Normal 0.44 - 3.98 [facility] Comment on above: Result Comment: TSH testing is performed using different testing methodology at [facility] than at other [facility]. Direct result comparisons should only be made within the same method. . Patients receiving more than 5 mg/day of biotin may have interference in test results. A sample should be taken no sooner than eight hours after previous dose. Contact [phone] for additional information. Performed By: #### T SH2 #### [facility] [address] [place] [address] TSHon 12-07-2018 TSH Qn 0.86 m[IU]/L Normal 0.44 - 3.98 [facility] Comment on above: Result Comment: TSH testing is performed using different testing methodology at [facility] than at other [facility]. Direct result comparisons should only be made within the same method. . Patients receiving more than 5 mg/day of biotin may have interference in test results. A sample should be taken no sooner than eight hours after previous dose. Contact [phone] for additional information. Performed By: #### T SH2 #### [facility] [address] [place] [address] EXT LAB FERRITINon 9 Ferritin mass conc 97 ng/mL [facility] External Lab CBC (With or wi thout Diff)on 11-12-2018 Basophils (Bld) [#/Vol] 0.0 10*3/uL [facility] Basophils/100 WBC (Bld) 0.8 % [facility] Eosinophils (Bld) [#/Vol] 0.1 10*3/uL [facility] Eosinophils (Bld) [#/Vol] 2.5 10*3/uL [facility] Erythrocyte distribution width (RBC) [Ratio] 12.8 % [facility] Hematocrit (Bld) [Volume fraction] 39.1 % [facility] Hemoglobin (Bld) [Mass/Vol] 13.2 g/dL [facility] Lymphocytes (Bld) [#/Vol] 1.8 10*3/uL [facility] Lymphocytes (Bld) [#/Vol] 30.4 10*3/uL [facility] MCH (RBC) [Entitic mass] 29.8 pg [facility] MCHC (RBC) [Mass/Vol] 33.7 g/dL [facility] MCV (RBC) [Entitic vol] 88.6 fL [facility] Monocytes (Bld) [#/Vol] 0.4 10*3/uL [facility] Monocytes (Bld) [#/Vol] 7.2 10*3/uL [facility] Neutrophils (Bld) [#/Vol] 59.1 10*3/uL [facility] Neutrophils (Bld) [#/Vol] 3.4 10*3/uL [facility] Platelet mean volume (Bld) [Entitic vol] 7.2 fL [facility] Platelets (Bld) [#/Vol] 308 10*3/uL K/mcL [facility] RBC (Bld) [#/Vol] 4.4 10*6/uL [facility] WBC (Bld) [#/Vol] 5.80 10*3/uL K/mcL [facility] External Lab Comprehensive M etabolic Panelon 11-12-2018 Albumin [Mass/Vol] 4.1 g/dL [facility] Albumin/Globulin [Mass ratio] 1.2 {ratio} [facility] ALP [Catalytic activity/Vol] 52 U/L [facility] ALT [Catalytic activity/Vol] 11 U/L [facility] AST [Catalytic activity/Vol] 15 U/L [facility] Bilirubin Ql (U) 1.0 mg/dL [facility] Calcium [Mass/Vol] 9.5 mg/dL [facility] Chloride [Moles/Vol] 102 mmol/L [facility] Creatinine [Mass/Vol] 0.60 mg/dL [facility] GFR/1.73 sq M predicted among blacks MDRD (S/P/Bld) [Vol rate/Area] [facility] GFR/1.73 sq M predicted among non-blacks MDRD (S/P/Bld) [Vol rate/Area] [facility] Globulin (S) [Mass/Vol] 3.3 g/dL [facility] Glucose [Mass/Vol] 87 mg/dL [facility] HCO3 (Bld) [Moles/Vol] 25 mmol/L [facility] Magnesium [Mass/Vol] [facility] Phosphate [Mass/Vol] mg/dL [facility] Potassium [Moles/Vol] 4.1 mmol/L [facility] Protein [Mass/Vol] 7.4 g/dL [facility] Sodium [Moles/Vol] 137 mmol/L [facility] Urate [Mass/Vol] mg/dL [facility] Urea nitrogen [Mass/Vol] 15 mg/dL [facility] Urea nitrogen/Creatinine [Mass ratio] 25 mg/mg High [facility] External Lab Vitamin D, 25-O Hon 11-12-2018 Vitamin D, 25-OH 55.0 [facility] External Vitamin B12 and Fol ateon 11-12-2018 Cobalamin (Vitamin B12) mass conc 1500 pg/mL Off scale high [facility] Folate 24.8 ng/mL Off scale high [facility] Otheron 11-12-2018 Interpretation and review of laboratory results Abnormal [facility] TSHon 08-13-2018 TSH Qn 0.64 m[IU]/L Normal 0.44 - 3.98 [facility] Comment on above: Order Comment: FXD S TAT TO [phone]; SPOKE W/ALFREDO , 08/12/2018 22:23 Result Comment: TSH testing is performed using different testing methodology at [facility] than at other [facility]. Direct result comparisons should only be made within the same method. . Patients receiving more than 5 mg/day of biotin may have interference in test results. A sample should be taken no sooner than eight hours after previous dose. Contact [phone] for additional information. FXD STAT TO [phone]; SPOKE W/ALFREDO , 08/12/2018 22:23 Performed By: #### T SH2 #### [facility] [address] [place] [address] Vital Signs Date Time Vital Sign Value Performing Clinician Facility 09-12-2019 15:37-0500 BMI (Body Mass Index) 31.06 kg/m2 [facility] 09-12-2019 15:37-0500 Body weight 103.87 kg [facility] 09-12-2019 15:37-0500 BP Diastolic 85 mm[Hg] [facility] 09-12-2019 15:37-0500 BP Systolic 126 mm[Hg] [facility] 09-12-2019 15:37-0500 Height 182.9 cm [facility] 09-12-2019 15:37-0500 Pulse (Heart Rate) 73 /min [facility] 11-08-2017 09:56-0500 BMI (Body Mass Index) 36.08 kg/m2 [facility] Work Phone: 11-08-2017 09:56-0500 BP Diastolic 81 mm[Hg] [facility]: 11-08-2017 09:56-0500 BP Systolic 120 mm[Hg] [facility] Work Phone: 11-08-2017 09:56-0500 Height 182.9 cm [facility] Work Phone: 11-08-2017 09:56-0500 Pulse (Heart Rate) 70 /min [facility] Work Phone: 11-08-2017 09:56-0500 Weight 120.66 kg [facility] Work Phone: 08-09-2017 14:05-0400 BMI (Body Mass Index) 40.01 kg/m2 Behzad Zacherya [facility] Work Phone: 08-09-2017 14:05-0400 Body Temperature 97.5 [degF] Behzad Zacherya [facility] Work Phone: 08-09-2017 14:05-0400 BP Diastolic 74 mm[Hg] Behzad Zacherya [facility] Work Phone: 08-09-2017 14:05-0400 BP Systolic 130 mm[Hg] [facility]: 08-09-2017 14:05-0400 Height 182.9 cm [facility] Work Phone: 08-09-2017 14:05-0400 Pulse (Heart Rate) 85 /min [facility] Work Phone: 08-09-2017 14:05-0400 Weight 133.81 kg [facility] Work Phone: 06-01-2017 14:30-0400 BMI (Body Mass Index) 43.26 kg/m2 [facility] Work Phone: 06-01-2017 14:30-0400 Body Temperature 97.81 [degF] [facility] Work Phone: 06-01-2017 14:30-0400 BP Diastolic 82 mm[Hg] [facility] Work Phone: 06-01-2017 14:30-0400 BP Systolic 128 mm[Hg] [facility] Work Phone: 06-01-2017 14:30-0400 Height 182.9 cm [facility] Work Phone: 06-01-2017 14:30-0400 Pulse (Heart Rate) 82 /min Behzad Zacherya [facility] Work Phone: 06-01-2017 14:30-0400 Weight 144.7 kg [facility] Work Phone: Encounters Encounter Date Encounter Type Care Provider Facility Start: 04-02-2023 End: 04-03-2023 ambulatory [facility] Start: 04-02-2023 End: 04-02-2023 Subsequent hospital visit by physician Loli Matias MD Work Phone: [facility] Laboratory Comment on above: Acquired hypothyroid ism Start: 11-10-2022 End: 11-13-2022 ambulatory [facility] Start: 11-10-2022 End: 11-12-2022 Subsequent hospital visit by physician [facility] Comment on above: Acquired hypothyroid ism Start: 11-06-2022 End: 02-15-[address] DREW MCBRIDE Facility: Start: 01-13-2022 End: 01-15-2022 Subsequent hospital visit by physician Loli Matias MD Work Phone: [facility] Start: 11-19-2020 End: 11-19-2020 Billy Ramirez Work Phone: [facility] Start: 09-20-2019 End: 09-20-2019 Documentation procedure Behzad Rajendrasinh Rana Work Phone: [facility] Start: 09-18-2019 End: 09-18-2019 Documentation procedure Behzad Rajendrasinh Rana Work Phone: [facility] Start: 09-12-2019 End: 09-12-2019 Patient encounter procedure BEHZAD RAJENDRASINH RANA [facility] Start: 09-12-2019 End: 09-12-2019 Office outpatient visit 15 minutes Behzad Rajendrasinh Rana Work Phone: [facility] Comment on above: Bariatric surgery [facility] (Primary Dx); Obesity, Class I, BMI 30-34.9 Start: 07-17-2019 End: 07-17-2019 Subsequent hospital visit by physician Loli Matias [facility] Laboratory Comment on above: Epigastric pain; History of pancreatitis Start: 07-14-2019 End: 07-16-2019 Subsequent hospital visit by physician [facility] Ul[facility]ound Room [facility] Ultrasound Comment on above: Thyroid nodule Start: 11-16-2018 End: 11-16-2018 Documentation procedure Behzad Hu Work Phone: [facility] Start: 10-24-2018 End: 10-24-2018 Patient encounter procedure BEHZAD HU [facility] Start: 04-11-2018 End: 04-11-2018 [facility] Start: 11-08-2017 Office/outpatient vi sit, est, level 3 Behzad Berniceharvinder Binghamsamuel Work Phone: [facility] Start: 08-09-2017 End: 08-09-2017 Office outpatient visit 15 minutes Behzad Queenhortensiakristian Zacherysamuel Work Phone: [facility] Comment on above: Bariatric surgery [facility] (Primary Dx) Start: 06-01-2017 Postop follow-up visit Behzad majanokristian Mayte Work Phone: [facility] Start: 04-30-2017 End: 05-02-2017 Evaluation and management of inpatient [facility] Start: 04-30-2017 Ambulatory JOSE DRAPER [facility] Start: 04-23-2017 End: 04-27-2017 Ambulatory [facility] Start: 04-05-2012 End: 08-15-2018 Patient encounter procedure Loli Matias MD Work Phone: [facility] Procedures Date Procedure Procedure Detail Performing Clinician Start: 04-02-2023 Assay of thyroid stimulating hormone tsh Loli Matias MD Work Phone: Start: 11-10-2022 Us soft tissue head & neck real time imge docm Nissa Lo [employer] Work Phone: Start: 09-13-2019 EXT LAB FERRITIN [...] DTaP/Tdap/Td vaccine (3 - Td or Tdap) [facility] Start: 05-30-2024 DTaP/Tdap/Td vaccine (3 - Td) DTaP/Tdap/Td vaccine (3 - Td) [place] Start: 05-30-2024 DTaP/Tdap/Td vaccine (7 - Td or Tdap) DTaP/Tdap/Td vaccine (7 - Td or Tdap) [facility] Start: 05-30-2024 Tetanus vaccination [facility] Start: 03-24-2024 Depression Screen Depression Screen [facility] Start: 11-18-2022 Depression Screen Depression Screen [facility] Start: 11-18-2022 Thyroid stimulating hormone measurement TSH testing [facility] Start: 2021 Diabetes screen Diabetes screen [facility] Start: 03-28-2021 COVID-19 Vaccine (3 - Booster for Moderna series) COVID-19 Vaccine (3 - Booster for Moderna series) [facility] Start: 09-28-2020 Cervical cancer screen Cervical canc er screen [place] Start: 09-28-2020 Screening for malign ant neoplasm of cervix [facility] [facility] Start: 06-18-2020 Influenza vaccinatio n given Sequential Influenza Vaccine (#[facility]) [facility] Start: 06-18-2019 Influenza vaccination Flu vaccine (# 1) [place], [place] Start: 06-18-2019 Influenza vaccinatio n given SEQUENTIAL INFLUENZA VACCINE (#1) [facility] Start: 04-24-2019 End: 04-24-2019 Office Visit 04/24/2019 Office Visit Behzad Rockwell MD [address] [place] [address] [phone] [facility] Start: 08-05-2018 TSH testing TSH testing [facility] [place], [place] Start: 06-18-2018 Influenza vaccinatio n given SEQUENTIAL INFLUENZA VACCINE (#1) [facility] Start: 05-02-2018 Ambulatory 05/02/2018 Off ice Visit Behzad Rockwell MD [address] [place] [address] [phone] [facility] Start: 11-01-2017 Ambulatory 11/01/2017 Off ice Visit Behzad Rockwell MD [address] [place] [address] [phone] [facility] Start: 08-02-2017 Ambulatory 08/02/2017 Off ice Visit Behzad Rockwell MD [address] [place] [address] [phone] [facility] Start: 06-18-2017 Influenza vaccination SEQUENTI AL INFLUENZA VACCINE (#1) [facility] Work Phone: Start: 06-18-2017 SEQUENTIAL INFLUENZA VACCINE (#1) SEQUENTIAL INFLUENZA VACCINE (#1) [facility] Work Phone: Start: 2016 Screening for malign ant neoplasm of cervix HPV (without or with Pap) [facility] Start: 2004 Hepatitis C antibody , confirmatory test Hepatitis C Screening [facility] Start: 2004 Hepatitis C screening Hepatitis C sc reen [facility] Start: 10-04-2002 Hepatitis A vaccine (2 of 2 - 2-dose series) Hepatitis A vaccine (2 of 2 - 2-dose series) [facility] Start: 2001 HIV screen HIV screen [facility] [place] Start: 2001 [facility] screening [facility] Start: 12-25-1999 Varicella Vaccine (1 of 2 - 13+ 2-dose series) Varicella Vaccine (1 of 2 - 13+ 2-dose series) [place], [place] Start: 1998 Adolescent depressio n screening assessment Depression Screening (PHQ9) [facility] Start: 1989 History and physical examination, annual for health maintenance Wellness Visit [facility] Start: 12-25-1987 Varicella vaccine (1 of 2 - 2-dose childhood series) Varicella vaccine (1 of 2 - 2-dose childhood series) [facility] Start: 1986 Cytopathology procedure, preparation of smear, genital source PAP SMEAR [facility] Work Phone: Start: 1986 Hepatitis C screening Hepatitis C sc reen [facility] Start: 1986 Screening for malign ant neoplasm of cervix PAP SMEAR [facility] Work Phone: Start: 1986 TETANUS EVERY 10 YR TETANUS EVERY 10 YR [facility] Work Phone: Start: 1986 Tetanus vaccination TETANUS EVERY 10 YR [facility] Work Phone: End: 09-12-2020 Blood zinc measurement Zinc Lab Routine Bariatric surgery status 1 Occurrences starting 09/12/2019 until 09/12/2020 [facility] Comment on above: 1 Occurrences starti ng 09/12/2019 until 09/12/2020 End: 08-10-2018 CBC and Differential CBC and Differential Routine Bariatric surgery status 1 Occurrences starting 08/09/2017 until 08/10/2018 [facility] Work Phone: Comment on above: 1 Occurrences starti ng 08/09/2017 until 08/10/2018 End: 08-10-2018 Ceruloplasmin Ceruloplasmin Routine Bariatric surgery status 1 Occurrences starting 08/09/2017 until 08/10/2018 [facility] Work Phone: Comment on above: 1 Occurrences starti ng 08/09/2017 until 08/10/2018 End: 09-12-2020 Cobalamin (Vitamin B12) [Mass/Vol] Vitamin B12 Lab Routine Bariatric surgery status 1 Occurrences starting 09/12/2019 until 09/12/2020 [facility] Comment on above: 1 Occurrences starti ng 09/12/2019 until 09/12/2020 End: 08-10-2018 Cobalamin (Vitamin B12) mass conc Vitamin B12 Routine Bariatric surgery status 1 Occurrences starting 08/09/2017 until 08/10/2018 [facility] Work Phone: Comment on above: 1 Occurrences starti ng 08/09/2017 until 08/10/2018 End: 08-10-2018 Comprehensive metabolic 2000 panel Comprehensive Metabolic Panel Routine Bariatric surgery status 1 Occurrences starting 08/09/2017 until 08/10/2018 [facility] Work Phone: Comment on above: 1 Occurrences starti ng 08/09/2017 until 08/10/2018 External Lab Iron External Lab I amanda Routine 11/12/2018 [facility] End: 08-09-2018 Ferritin [Mass/volume] in Serum or Plasma Ferritin Routine Bariatric surgery status 1 Occurrences starting 08/09/2017 until 08/09/2018 [facility] Work Phone: Comment on above: 1 Occurrences starti ng 08/09/2017 until 08/09/2018 End: 08-10-2018 Folate Folate Routine Bariatric surgery status 1 Occurrences starting 08/09/2017 until 08/10/2018 [facility] Work Phone: Comment on above: 1 Occurrences starti ng 08/09/2017 until 08/10/2018 End: 09-12-2020 Folate [Mass/Vol] Folate Lab Routine Bariatric surgery status 1 Occurrences starting 09/12/2019 until 09/12/2020 [facility] Comment on above: 1 Occurrences starti ng 09/12/2019 until 09/12/2020 End: 08-10-2018 Hemoglobin A1c/Hemoglobin.total mass fraction (Bld) Hemoglobin A1c Routine Bariatric surgery status 1 Occurrences starting 08/09/2017 until 08/10/2018 [facility] Work Phone: Comment on above: 1 Occurrences starti ng 08/09/2017 until 08/10/2018 End: 09-12-2020 Iron measurement Iron Study with Ferritin Lab Routine Bariatric surgery status 1 Occurrences starting 09/12/2019 until 09/12/2020 [facility] Comment on above: 1 Occurrences starti ng 09/12/2019 until 09/12/2020 End: 08-10-2018 Lipid panel Lipid Panel Routine Bariatric surgery status 1 Occurrences starting 08/09/2017 until 08/10/2018 [facility] Work Phone: Comment on above: 1 Occurrences starti ng 08/09/2017 until 08/10/2018 End: 08-10-2018 PTH, Intact PTH, Intact Routine Bariatric surgery status 1 Occurrences starting 08/09/2017 until 08/10/2018 [facility] Work Phone: Comment on above: 1 Occurrences starti ng 08/09/2017 until 08/10/2018 End: 09-12-2020 Pyridoxal 5 phosphate level Vitamin B6 Lab Routine Bariatric surgery status 1 Occurrences starting 09/12/2019 until 09/12/2020 [facility] Comment on above: 1 Occurrences starti ng 09/12/2019 until 09/12/2020 End: 08-10-2018 Reticulocytes panel - Blood Reticulocyte Routine Bariatric surgery status 1 Occurrences starting 08/09/2017 until 08/10/2018 [facility] Work Phone: Comment on above: 1 Occurrences starti ng 08/09/2017 until 08/10/2018 End: 09-12-2020 Thiamine measurement Vitamin B1, Whole Blood Lab Routine Bariatric surgery status 1 Occurrences starting 09/12/2019 until 09/12/2020 [facility] Comment on above: 1 Occurrences starti ng 09/12/2019 until 09/12/2020 End: 08-10-2018 Thyrotropin Qn TSH Routine Bariatric surgery status 1 Occurrences starting 08/09/2017 until 08/10/2018 [facility] Work Phone: Comment on above: 1 Occurrences starti ng 08/09/2017 until 08/10/2018 End: 04-02-2023 Thyroxine (T4) free [Mass/volume] in Serum or Plasma [facility] Comment on above: 1 Occurrences starti ng 04/02/2023 until 04/02/2023 End: 08-10-2018 Vitamin A Vitamin A Routine Bariatric surgery status 1 Occurrences starting 08/09/2017 until 08/10/2018 [facility] Work Phone: Comment on above: 1 Occurrences starti ng 08/09/2017 until 08/10/2018 End: 09-12-2020 Vitamin A measurement Vitamin A Lab Routine Bariatric surgery status 1 Occurrences starting 09/12/2019 until 09/12/2020 [facility] Comment on above: 1 Occurrences starti ng 09/12/2019 until 09/12/2020 End: 08-10-2018 Vitamin B1, Whole Blood Vitamin B1, Whole Blood Routine Bariatric surgery status 1 Occurrences starting 08/09/2017 until 08/10/2018 [facility] Work Phone: Comment on above: 1 Occurrences starti ng 08/09/2017 until 08/10/2018 End: 08-10-2018 Vitamin B6 Vitamin B6 Routine Bariatric surgery status 1 Occurrences starting 08/09/2017 until 08/10/2018 [facility] Work Phone: Comment on above: 1 Occurrences starti ng 08/09/2017 until 08/10/2018 End: 09-12-2020 Vitamin D, 25-hydroxy measurement Vitamin D, Total, 25-OH Lab Routine Bariatric surgery status 1 Occurrences starting 09/12/2019 until 09/12/2020 [facility] Comment on above: 1 Occurrences starti ng 09/12/2019 until 09/12/2020 End: 08-10-2018 Vitamin D, Total, 25-OH Vitamin D, Total, 25-OH Routine Bariatric surgery status 1 Occurrences starting 08/09/2017 until 08/10/2018 [facility] Work Phone: Comment on above: 1 Occurrences starti ng 08/09/2017 until 08/10/2018 End: 08-10-2018 Zinc Zinc Routine Bariatric surgery status 1 Occurrences starting 08/09/2017 until 08/10/2018 [facility] Work Phone: Comment on above: 1 Occurrences starti ng 08/09/2017 until 08/10/2018 Immunizations Immunization Date Immunization Notes Care Provider [facility] 07-23-2022 influenza, injectabl e, quadrivalent, preservative free Loli Matias MD Work Phone: [facility] 09-10-2021 influenza virus vaccine, unspecified formulation Loli Matias MD Work Phone: [facility] Work Phone: 10-28-2020 COVID-19, Moderna, Primary or Immunocompromised, PF, 100mcg/0.5mL Loli Matias MD Work Phone: [facility] Work Phone: 10-28-2020 COVID-19, Pfizer Pur ple top, DILUTE for use, 12+ yrs, 30mcg/0.3mL dose Loli Matias MD Work Phone: [facility] Work Phone: 10-04-2020 COVID-19, Moderna, Primary or Immunocompromised, PF, 100mcg/0.5mL Loli Matias MD Work Phone: [facility] Work Phone: 10-04-2020 COVID-19, Pfizer Pur ple top, DILUTE for use, 12+ yrs, 30mcg/0.3mL dose Loli Matias MD Work Phone: [facility] 08-04-2017 tuberculin skin test ; purified protein derivative solution, intradermal [facility] 08-04-2017 unknown vaccine or immune globulin Loli Matias MD Work Phone: [facility] 05-30-2014 tetanus toxoid, redu rachael diphtheria toxoid, and acellular pertussis vaccine, adsorbed [facility] 04-05-2012 tetanus toxoid, redu rachael diphtheria toxoid, and acellular pertussis vaccine, adsorbed [facility] 04-05-2012 tuberculin skin test ; purified protein derivative solution, intradermal [facility] 02-24-2006 hepatitis B vaccine, pediatric or pediatric/adolescent dosage Loli Matias MD Work Phone: [facility] 10-26-2005 hepatitis B vaccine, pediatric or pediatric/adolescent dosage Loli Matias MD Work Phone: [facility] 09-24-2005 hepatitis B vaccine, pediatric or pediatric/adolescent dosage Loli aMtias MD Work Phone: [facility] 04-04-2002 hepatitis A and hepatitis B vaccine Loli Matias MD Work Phone: [facility] 04-04-2002 TD(adult) unspecifie d formulation Loli Matias MD Work Phone: [facility] 01-28-1999 measles, mumps and rubella virus vaccine Loli Matias MD Work Phone: [facility] 04-17-1992 diphtheria, tetanus toxoids and acellular pertussis vaccine, unspecified formulation Loli Matias MD Work Phone: [facility] 05-06-1988 diphtheria, tetanus toxoids and pertussis vaccine Loli Matias MD Work Phone: [facility] 05-06-1988 measles, mumps and rubella virus vaccine Loli Matias MD Work Phone: [facility] 01-01-1988 diphtheria, tetanus toxoids and pertussis vaccine Loli Matias MD Work Phone: [facility] 05-01-1987 diphtheria, tetanus toxoids and pertussis vaccine Loli Matias MD Work Phone: [facility] Payers Date Payer Category Payer Unknown [id number] 2022 Unknown [id number] 2019 Unknown BCBS [place] P PO [id number] 2019-Present [phone] [address] [place] [address] [id number] 2019 Unknown [facility] [employer] [place] CE PLUS [id number] 2019-Present [id number] 2018 Unknown [id number] 2018 Private Health Insurance AETNA A ETNA CHOICE POS/POSII/PREMIER CARE/PREMIER CARE PLUS xxxxxxxxxx 2018-Present xxxxxxxxxx [id number] 2018 Private Health Insurance [id number] 2017 Unknown [id number] 3 2017 Unknown [id number] 1986 Unknown [id number] 1986 Unknown [id number] 1986 Unknown [id number] 1986 Unknown [id number] 1986 Unknown [id number] 1986 Unknown [id number] 1959 Self-pay 1959 Unknown [id number] Unknown [id number] Social History Date Type Detail Facility Start: 06-01-2017 End: 03-24-2023 Tobacco smoking status ALIS Never smoker [facility] Work Phone: Start: 1986 Sex Assigned At Not on file [facility] Work Phone: Start: 04-26-2019 End: 07-17-2019 Alcohol intake No [employer] [place], [place] Start: 09-12-2019 End: 03-24-2023 Alcohol intake Current non-drinker of alcohol (finding) [facility] Start: 09-12-2019 End: 03-24-2023 Tobacco use and exposure Never used [facility] Start: 01-13-2022 Alcohol intake [employer] Work Phone: Start: 11-18-2021 History SDOH Financial 5 [employer] Work Phone: Start: 11-18-2021 End: 03-24-2023 History SDOH Food Worry 1 [employer] Phone: Start: 03-24-2023 History SDOH Financial 4 [facility] Start: 03-24-2023 History SDOH Transpo rt Non-Med 2 [facility] [employer] [facility] Medical Equipment Procedure Code Equipment Code Equipment Origin al Text Equipment Identifier Dates Kit 4ml Vh S/D Tisseel Frozen - [id number] Start: 04-30-2017 Strip Ech 60 Pranav nf Bovine Dorothy-Strips Dry W/[employer] - [id number] Start: 04-30-2017 Kit 4ml Vh S/D Tisseel Frozen - [id number] Start: 04-30-2017 Strip Ech 60 Pranav nf Bovine Dorothy-Strips Dry W/[employer]itas - [id number] Start: 04-30-2017 Kit 4ml Vh S/D Tisseel Frozen - [id number] Start: 04-30-2017 Strip Ech 60 Pranav nf Bovine Dorothy-Strips Dry W/Veritas - [id number] Start: 04-30-2017 Kit 4ml Vh S/D Tisseel Frozen - [id number] Start: 04-30-2017 Strip Ech 60 Pranav nf Bovine Dorothy-Strips Dry W/[employer]itas - [id number] Start: 04-30-2017 Kit 4ml Vh S/D Tisseel Frozen - [id number] Start: 04-30-2017 Strip Ech 60 Pranav nf Bovine Dorothy-Strips Dry W/Veritas - [id number] Start: 04-30-2017 Kit 4ml Vh S/D Tisseel Frozen - [id number] Start: 04-30-2017 Comment on above: Description: 8ml use d ( 2-4ml kits) Clarification for billing purpose 8 ml = 4 used 0 wasted Strip Ech 60 Pranav nf Bovine Dorothy-Strips Dry W/[employer] - [id number] Start: 04-30-2017 Comment on above: Description: Charge Only Kit 4ml Vh S/D Tisseel Frozen - [id number] Start: 04-30-2017 Strip Ech 60 Pranav nf Bovine Dorothy-Strips Dry W/Veritas - [id number] Start: 04-30-2017 Kit 4ml Vh S/D Tisseel Frozen - [id number] Start: 04-30-2017 Strip Ech 60 Pranav nf Bovine Dorothy-Strips Dry W/[employer]itas - [id number] Start: 04-30-2017 Evaluation note Note Date & Type Note Facility Evaluation note Diagnosis Acquired hypothyroidism Unspecified hypothyroidism documented in this encounter [facility] [employer] Phone: Evaluation note Note Date & Type Note Facility Evaluation note Diagnosis Acquired hypothyroidism [facility]specified [facility] Bariatric surgery status - P [...] FoundDocuments on File Type Date Recorded Patient Audio Specialist Expl anation Advance Directives and Living Will Latest Code Status on File Code Status Date Activated Date Inactivated Comments Full Code 04/30/2017 12:41 PM 05/02/2017 7:17 PM Documents on File Type Date Recorded Patient Audio Specialist Expl anation Advance Directives and Living Will Power of Ad Writer Documents on File Type Date Recorded Patient Audio Specialist Expl anation Advance Directives and Living Will Power of Ad Writer Documents on File Type Date Recorded Patient Audio Specialist Expl anation ACP-Advance Directive ACP-Power of Ad Writer History of Present Illness * Behzad Hu MD - 08/09/2017 2:32 PM EDT Formatting of this note may be different from the original. [facility] POSTOP BARIATRIC VISIT [...] W/ BIOPSY; Surgeon: Behzad Hu MD; Location: [facility]; Service: GASTRIC SLEEVE BYPASS LAPAROSCOPIC WITH EGD N/A 04/30/2017 Procedure: LAPAROSCOPIC SLEEVE GASTRECTOMY HIATAL HERNIA REPAIR LIVER BIOPSY ESOPHAGOGASTRODUODENOSCOPY; Surgeon: Behzad Hu MD; Location: [facility] Main OR; Service: Social History [...] (40 mg total) by mouth daily. pediatric [id number] (flintstones complete) Chew Chew and Swallow Take [...] Hu MD - 09/12/2019 4:49 PM EST [facility] POSTOP BARIATRIC VISIT [...] W/ BIOPSY; Surgeon: Behzad Hu MD; Location: [facility]; Service: GASTRIC SLEEVE BYPASS LAPAROSCOPIC WITH EGD N/A 04/30/2017 Procedure: LAPAROSCOPIC SLEEVE GASTRECTOMY HIATAL HERNIA REPAIR LIVER BIOPSY ESOPHAGOGASTRODUODENOSCOPY; Surgeon: Behzad Hu MD; Location: [facility] Main OR; Service: Social History [...] file Gets together: Not on file Attends jehovah's witness service: Not on file Active member of [...] HEAD/NECK TISSUES,REAL TIME Loli Matias MD [address] [place] [address] Specialty Diagnoses / Procedures Referred By Contac t Referred To Contact Radiology Diagnoses Acquired hypothyroidism Procedures US HEAD NECK SOFT TISSUE THYROID Nissa Lo APRN - JULES [address] [address] Referral ID Status Reason Start Date Expiration Date V isits Requested Visits Authorized [id number] Pending Review 11/09/2022 11/09/2023 1 1 Hospital [...] ALVARADO DO Consulting Physician - CAPRICE GUSTAFSON, [facility] Course Pt is a 32 [...] All Problems Ovarian dysfunction / SNOMED CT 80903539 / Confirmed Hypothyroidism / SNOMED CT 07063742 / Confirmed Pancreatitis / SNOMED CT 451309657 / Confirmed Physical Examination Vital Signs 07/18/2019 [...] All Problems Ovarian dysfunction / SNOMED CT 24429769 / Confirmed Hypothyroidism / SNOMED CT 22283836 / Confirmed Incomplete miscarriage / SNOMED CT 322489385 / Confirmed missed Pancreatitis / SNOMED CT 859993140 / Confirmed Physical Examination Vital Signs 10/20/2019 [...] All Problems Ovarian dysfunction / SNOMED CT 41460954 / Confirmed Hypothyroidism / SNOMED CT 92635890 / Confirmed Pancreatitis / SNOMED CT 296648592 / Confirmed Physical Examination Vital Signs 07/18/2019 [...] All Problems Ovarian dysfunction / SNOMED CT 34808423 / Confirmed Hypothyroidism / SNOMED CT 91462978 / Confirmed Incomplete miscarriage / SNOMED CT 768060443 / Confirmed missed Pancreatitis / SNOMED CT 622459488 / Confirmed Physical Examination Vital Signs 10/20/2019 [...] section and content) DATE CREATED AUTHOR 04/15/2018 [facility] DATE CREATED AUTHOR AUTHOR'S ORGANIZ ATION 07/23/2019 [facility] DATE CREATED AUTHOR AUTHOR'S ORGANIZ ATION 09/13/2019 [facility] DATE CREATED AUTHOR AUTHOR'S ORGANIZ ATION 06/18/2020 [facility] DATE CREATED AUTHOR AUTHOR'S ORGANIZ ATION 02/14/2023 [facility] DATE CREATED AUTHOR AUTHOR'S ORGANIZ [...] HEAD/NECK TISSUES,REAL TIME Loli Matias MD [address] [place] [address] Reason Comments Follow-up GS 04/30/17. Prop wt: 350. 10/24/18 229lbs 09/12/19 wt= 240lbs Reason Onset Date Comments Medication Refill 11/19/2020 Specialty Diagnoses / Procedures Referred By Contac t Referred To Contact Radiology Diagnoses Acquired hypothyroidism Procedures US HEAD NECK SOFT TISSUE THYROID Nissa Lo, CANDY MAKER HELPER - ENGINEER INTERN [address] [place] [address] Referral ID Status Reason Start Date Expiration Date V isits Requested Visits Authorized [id number] Pending Review 11/09/2022 11/09/2023 1 1 Care Teams (unrecognized sec tion and content) Fire Prevention Inspector Relationship Specialty Start Date End Date Loli Matias MD [address] [place] [address] PCP - General 07/24/16 Fire Prevention Inspector Relationship Specialty Start Date End Date Loli Matias MD [address] [place] [address] PCP - General 07/24/16 Fire Prevention Inspector Relationship Specialty Start Date End Date Loli Matias MD [address] [place] [address] PCP - General 07/24/16 FOR RECORDS [...] BE BASED ON THE PRIMARY CLINICAL RECORDS. [employer] [facility]. provides no warranty or guarantee of the accuracy or completeness of information in this document.
== END 2024-02-21 07:28 | disposition home or self-care (01) ==
LOC: VC 07:31
PROVIDERS: PCP Radiology Diagnostic Radiology; Visit Provider Radiology Diagnostic Radiology
DX: I80.03 Phlebitis and thrombophlebitis of superficial vessels of lower extremities, bilateral (principal)
CPT/HCPCS: 93970; G0463

== ENCOUNTER 2024-03-01 07:31 | Outpatient (OUT) | payer OTHER, SELFPAY ==
--- NOTE | 2024-03-01 07:34 | VEIN_ITS ---
[address] [address] Patient Name: SUKHDEV WATERMAN MRN: [id number] date: 1985 Sex: F Assigned Patient Location: Current Patient Location: Accession/Order Number: [id number] Exam Date: 03/01/2024 07:35 Report Date: 03/01/2024 08:28 At the request of: DREW MCBRIDE Procedure: VC INJ Sclerosing SOLMULT Vein EXAMINATION: VC INJ Sclerosing SOLMULT Vein HISTORY: I83.813 Painful varicose veins COMPARISON: No relevant comparison available. TECHNIQUE: The risks and benefits of the procedure were explained at length to the patient and informed written consent was obtained. Jose Escalante was present and assisted. The procedure was performed under sterile technique. The patient's leg was wrapped with Coban and postprocedural verbal and written instructions provided. SCLEROSANT: 4 cc, 0.5% polidocanol VEIN(S) INJECTED: 28 veins in the right leg VISUALIZATION: Ultrasound was not used to visualize the sclerosant ANESTHESIA: Supercooled air COMPLICATIONS: None VEIN/VC INJ Sclerosing SOLMULT Vein IMPRESSION: Technically successful sclerotherapy as described Electronically authenticated by: DREW MCBRIDE Date: 03/01/2024 08:28
--- OUTSIDE RECORDS SUMMARY | 2024-03-01 07:34 | XMS_ITS | CCD ---
Author Organization [facility] Care Team Providers Care Cold Patcher Name Role Phone Unavailable Unavailable Unavailable VerLoli [...] Care Provider Loli Matias Primary Care Provider [phone] RANA, BEHZAD RAJENDRASINH Attending Unavail able LOLI MATIAS Primary Care Unavailable RANA, BEHZAD RAJENDRASINH Attending Unavail able LOLI MATIAS Primary Care Unavailable Loli Matias Primary Care Provider [phone] Loli Matias MD Primary Care Provider Loli [...] Propensity to adverse reactions to drug 04-26-2019 [place], [place] (5 sources) levoFLOXacin Drug Allergy 04-26-2019 [place] (3 sources) Penicillins Propensity to adverse reactions to drug 12-01-2011 [place] (3 sources) Seasonal allergy Propensity to adverse reactions to substance 11-18-2021 [facility] (2 sources) Penicillins Propensity to adverse reactions to drug 12-01-2011 [facility] (2 sources) Pollen Propensity to adverse reactions to drug 04-26-2019 [facility] Work Phone: Medications Current Medications Medication [...] Active docusate sodium 50 mg / sennosides, fci 8.6 mg oral tablet (3 sources) take [...] Start: 04-23-2016 take 2 tablets by mo [facility] every eight hours as needed for [...] Active Start: 11-18-2021 [facility] pantoprazole (PROTONIX) 40 MG tablet [...] Class(es) Dates Sig (Normalized) Sig (Original) pediatric ntdsjcsi-lhez-jvr (flintstones complete) Chew (2 sources) pediatric neujqypa-qoav-api (flintstones complete) Chew Chew and Swallow Take two daily . Active Pediatric Multivitamin With Iron And Other Minerals Chewable Tablet (1 source) pediatric vteyxlze-hnui-tqd (flintstones complete) Chew Chew and Swallow Take [...] 04-03-2023 Thyroxine, Free 1.4 ng/dL Normal 0.9-1.7 [facility] Comment on above: Performed By: #### F T4 #### [address] [id number] Flare Breaker: Jarek Branch MD #### TSH #### [facility] [address] [place] [address] Flare Breaker: Drew Lee [facility] TSH [Mass/Vol] 0.83 [facility] Thyroid Stim. Horm.on 2022 Thyroid Stim. Horm. 0.83 uIU/mL Normal 0.30-5.00 [facility] Comment on above: Performed By: #### F T4 #### [address] [place], [place] [id number] Flare Breaker: Jarek Branch MD #### TSH #### [facility] [address] [place] [address] Flare Breaker: Drew Lee MD US HEAD NECK SOFT [...] Villafuerte Jr., MD 11/11/22 Final result Normal [facility] No significant findings. No specific follow-up needed. [facility] EXAM: US HEAD NECK S [...] isthmus no longer seen. Thyroid echogenicity normal. [facility] Manny Villafuerte Jr., MD - [...] No significant findings. No specific follow-up needed. [employer] Phone: US HEAD NECK SOFT TISSUE THY ROIDOrdered By: Manny Villafuerte on 11-11-2022 [employer] Phone: US HEAD NECK SOFT TISSUE THY ROIDon 11-10-2022 Radiology Study observation (narrative) [employer] Phone: Coding Summary.on 05-31-2020 Coding Summary. CODING DATE: 020 FINAL [facility] STATUS: Home (Routine DC) PAYOR: Leela [...] Conception, Retained, Via Natural or Artificial Opening [id number] Control Bleeding in Davie Grijalva MD 05/27/2020 Genitourinary Tract, Via Natural or Artificial Opening [id number] Transfusion of Nonautologous Davie Grijalva MD 05/26/2020 Red Blood Cells into Peripheral Vein, Percutaneous Approach 06149U8 Transfusion of Nonautologous Davie Grijalva MD 05/26/2020 Red Blood Cells into Peripheral Vein, Percutaneous Approach 37024L4 Transfusion of Nonautologous Davie Grijalva MD 05/26/2020 Red Blood Cells into Peripheral Vein, Percutaneous Approach 91352E9 Transfusion of Nonautologous Davie Grijalva MD 05/26/2020 Red Blood Cells into Peripheral Vein, Percutaneous Approach 59779W4 Transfusion of Nonautologous Davie Grijalva MD 05/26/2020 Frozen Plasma into Peripheral Vein, Percutaneous Approach 78746O8 Transfusion of Nonautologous Davie Grijalva MD 05/26/2020 Frozen Plasma into Peripheral Vein, Percutaneous Approach 76272N4 Transfusion of Nonautologous Davie Grijalva MD 05/27/2020 Red Blood Cells into Peripheral Vein, Percutaneous Approach NOTE: The code number assigned matches the documented diagnosis and / or procedure in the patient's chart. However, the narrative phrase printed from the coding software may appear abbreviated, or result in slightly different terminology. Coded By: Rae Milton Date Saved: 05/31/2020 11:44 am Normal [facility] IntraOperative Documentson 0 05-31-2020 IntraOperative Documents [id number]:127 Normal [facility] Consent for Procedure/Surger yon 05-28-2020 Consent for Procedure/Surgery [id number]:127 Normal [facility] Discharge Instructionson Discharge Instructions [id number]:127 Normal [facility] Discharge Instructions Given Worseningon 05-28-2020 Discharge Instructions Given Worsening The following Patient Education Materials have been given to the patient: EducationMaterial Normal [facility] History and Physicalon 05-28 History [...] Davie Grijalva MD, FACOG lkr Dictated: 05/26/2020 #[id number] Typed 05/27/2020 #[id number] cc: Davie Grijalva MD, MICHAEL [facility] Comment on above: Result Comment: Elec tronically Signed By: Rudi GUSTAFSON, Davie Duong\.br\Date and Time Signed: 05/28/20 08:12 EDT Inpatient Clinical Summaryon 05-28-2020 Inpatient Clinical Summary [place] [id number] Clinical Summary Person Information Name: SUKHDEV SCHWARTZ [facility] Age: 34 Years : 1985 Sex: Female PCP: SONIA GUSTAFSON, LOLI Vela Marital Status: Phone: [phone] Race: White Ethnicity: Non- or Language: Vincentian Visit Id: Visit Reason: Nausea; Dizziness; Vaginal bleeding; VAG BLEEDING Speciality: Acuity: Other Enc Type: Inpatient Med Service: Obstetrics Arrival: 05/26/2020 11:09:13 Discharge: 05/28/2020 08:40:00 Dispo Type: Home (Routine DC) Address: [address] [id number] Provider Notes: Diagnosis: 1:Miscarriage; 2:Retained products of [...] range between ( 80.0 and 100.0 ) Preston Auto: 6.7 % -- Normal range between ( 4.0 and 14.0 ) MPV: 7.4 fL -- Normal range between ( 6.4 and 10.8 ) Neutro Auto: 68.3 % -- Normal range between ( 36.0 and 75.0 ) Platelet: 278.0 E9/L -- Normal range between ( 150.0 and 500.0 ) WBC: 7.0 E9/L -- Normal range between ( 4.0 and 11.0 ) Preston Absolute: 0.5 E9/L -- Normal range between [...] Follow up: With: Address: When: Dr. Grijalva [phone] Within 1 to 2 weeks Comments: Call for any problems. Patient Education Information: Menorrhagia Normal [facility] Inpatient Patient Summaryon 05-28-2020 Inpatient Patient Summary [place] [id number] Patient Discharge Instructions PERSON INFORMATION Name: SUKHDEV SCHWARTZ Date of : 1985 Current Date: 05/28/2020 08:43:41 PHYSICIANS Admitting Physician: Davie Grijalva MD Primary Care Physician: LOIL MATIAS MD PCP Comment: Discharge Diagnosis: 1:Miscarriage; [...] Follow up: With: Address: When: Dr. Grijalva [phone] Within 1 to 2 weeks Comments: Call [...] hospitalization. HOME CARE INSTRUCTIONS ? Only take emkx-wil-bgrgjhm or prescription medicines as directed by your [...] Document Reviewed: 03/25/2014 ExitCare? Patient Information ?2015 [employer]. This information is not intended to replace advice given to you by your health care provider. Make sure you discuss any questions you have with your health care provider. Medication Leaflets: Thank you for choosing [facility] Normal [facility] IntraOperative Documentson 0 8-11-2020 IntraOperative Documents [id number]:127 Normal [facility] Operative Reporton 0 Operative Report Date [...] Davie Grijalva MD, FACOG lkr Dictated: 05/27/2020 #[id number] Typed: 05/27/2020 #[id number] cc: Davie Grijalva MD, MICHAEL [facility] Comment on above: Result Comment: Elec [...] q6hr, # 15 tab(s), Refills(s) 0, Pharmacy: [facility] #16 Documented Medications Documented Multivitamins: 1 tab(s), [...] list: All Problems Pancreatitis / SNOMED CT 852563466 / Confirmed Incomplete miscarriage / SNOMED CT 201005667 / Confirmed missed Ovarian dysfunction / SNOMED CT 61987998 / Confirmed Hypothyroidism / SNOMED CT 79785048 / Confirmed Resolved: / SNOMED CT 728617935 Resolved: / SNOMED CT 467259406 Resolved: / SNOMED CT 985528554 Resolved: / SNOMED CT 466727495 Physical Examination Intake and Output Denies significant [...] 0 . Respiratory: Adequate air exchange with holiness of preoperative function.. Cardiovascular: Cardiovascular function is stable and has returned to preoperative levels.. Neurologic: Pt has returned to preoperative baseline.. Review / Management Condition: Stable. Assessment Anesthetic outcome No anesthetic complications noted. Plan Transfer/ Discharge: Patient can be discharged from PACU when criteria met. Condition good. Normal [facility] Comment on above: Result Comment: [...] q6hr, # 15 tab(s), Refills(s) 0, Pharmacy: [facility] #16 Documented Medications Documented Multivitamins: 1 tab(s), [...] list: All Problems Pancreatitis / SNOMED CT 177302923 / Confirmed Incomplete miscarriage / SNOMED CT 806230889 / Confirmed missed Ovarian dysfunction / SNOMED CT 90094097 / Confirmed Hypothyroidism / SNOMED CT 37313346 / Confirmed Physical Examination Intake and Output [...] (MAY 26:) Respiratory: Adequate air exchange with holiness of preoperative function.. Cardiovascular: Cardiovascular function is stable and has returned to preoperative levels.. Neurologic: Pt has returned to preoperative baseline.. Review / Management Condition: Stable. Assessment Anesthetic outcome No anesthetic complications noted. Plan Transfer/ Discharge: Patient can be discharged from PACU when criteria met. Condition good. [facility] Comment on above: Result Comment: Elec [...] Davie Grijalva MD, FACOG gls Dictated: 05/27/2020 #[id number] Typed: 05/27/2020 #[id number] cc: Davie Grijalva MD, FACOG [facility] Comment on above: Result Comment: Elec tronically Signed By: Rudi GUSTAFSON, Davie Duong\.br\Date and Time Signed: 05/28/20 08:11 EDT Consent for Anesthesiaon Consent for Anesthesia [id number]:127 [facility] FSPon 05-27-2020 Fibrin+Fibrinogen fragments (S) [Mass/Vol] <10 Normal <10 [facility] Comment on above: Performed By: #### 1 4270412, 2625820, 0957982, 5249858, 1077721, 6612748, 40954401, 9197707 #### [facility] [address] [place] [address] Fibrin+Fibrinogen fragments (S) [Mass/Vol] <10 Normal <10 [facility] Comment on above: Performed By: #### 1 0535612, 3870711, 3010872, 6769741, 7933799, 8564642, 06039455, 2453039 #### [facility] [address] [place] [address] Fibrin+Fibrinogen fragments (S) [Mass/Vol] <10 Normal <10 [facility] Comment on above: Performed By: #### 1 1197447, 0646565, 8013014, 4579714, 4417040, 8547848, 11697000, 4491056 #### [facility] [address] [place] [address] Fibrinogenon 05-27-2020 Fibrinogen Coag (PPP) [Mass/Vol] 181 mg/dL Low 200-393 [facility] Comment on above: Performed By: #### 1 9258926, 6811751, 8768836, 0563751, 2127691, 2061972, 38101802, 1082321 #### [facility] [address] [place] [address] 40631 Fibrinogen Coag (PPP) [Mass/Vol] 178 mg/dL Low 200-393 [facility] Comment on above: Performed By: #### 1 8426954, 9169468, 5680473, 8020191, 3030195, 3341521, 96588922, 1295073 #### [facility] [address] [place] [address] 79807 Fibrinogen Coag (PPP) [Mass/Vol] 174 mg/dL Low 200-393 [facility] Comment on above: Performed By: #### 1 9000267, 4946771, 9395392, 7263517, 9866572, 5719529, 19583263, 6971021 #### [facility] [address] [place] [address] 28805 Hct & Hgbon 05-27-2020 Hematocrit (Bld) [Volume fraction] 23.9 % Low 34.0-46.0 [facility] Comment on above: Performed By: #### 1 2156074, 0719898, 0518032, 0954565, 8857721, 5395714, 77494993, 4986468 #### [facility] [address] [place] [address] 36395 Hemoglobin (Bld) [Mass/Vol] 8.3 g/dL Low 12.0-16.0 [facility] Comment on above: Performed By: #### 1 6772143, 1862236, 6512472, 0612981, 2164232, 3441980, 46323064, 6953156 #### [facility] [address] [place] [address] 35354 Hematocrit (Bld) [Volume fraction] 22.4 % Low 34.0-46.0 [facility] Comment on above: Performed By: #### 1 3538944, 7616447, 5791175, 2826523, 3003774, 5576242, 79049632, 4741427 #### [facility] [address] [place] [address] 71453 Hemoglobin (Bld) [Mass/Vol] 7.8 g/dL Low 12.0-16.0 [facility] Comment on above: Performed By: #### 1 1974695, 4605915, 2769809, 7493963, 0531124, 7006372, 22915967, 6770628 #### [facility] [address] [place] [address] 09740 Hematocrit (Bld) [Volume fraction] 26.2 % Low 34.0-46.0 [facility] Comment on above: Performed By: #### 1 0692705, 7196279, 5195608, 1594805, 4914622, 2353523, 55512851, 4339524 #### [facility] [address] [place] [address] 02658 Hemoglobin (Bld) [Mass/Vol] 8.9 g/dL Low 12.0-16.0 [facility] Comment on above: Performed By: #### 1 2168279, 0723933, 1507094, 4453540, 7927382, 6613201, 24552554, 8793143 #### [facility] [address] [place] [address] IntraOperative Documentson 0 05-27-2020 IntraOperative Documents [id number]:127 Normal [facility] Main OR Intraoperative Recor don 05-27-2020 Main OR Intraoperative Record IntraOp Document Type FT Summary Primary Physician: Davie Grijalva MD Finalized Date/Time: 05/27/20 13:44:47 Pt. Name: SUKHDEV SCHWARTZ Antoni Mo/Sex: 1985 Female Med Rec #: [id number] Physician: Davie Grijalva MD Financial #: [id number] Pt. 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 Last Modified By: Annelise GOODRICH, Rena 05/26/20 Annelise GOODRICH, eRna 05/26/20 Annelise GOODRICH, Rena 05/26/20 17:20:27 17:21:03 20:05:31 Entry 7 Case Attendee Rasheeda RN, NADYAOR, Matilde Role Performed Hall Clerk - Other Time In 05/26/20 16:01:00 Time [...] Kasten MD, Armaan Pérez CST, Mónica, Annelise OGODRICH, Derek Chase RN, Rasheeda Aguilar RN, NADYAORMatilde [...] and tissue Entry 1 Skin Integrity Intact, [place], Warm, and Skin Abnormality No Dry, Bruised [...] RN, NADYAOR, Rasheeda RN, NADYAOR, Matilde, Armaan SPECIAL EDUCATION RESOURCE ROOM TEACHER, Armaan Clayton SPECIAL EDUCATION RESOURCE ROOM TEACHER, Mónica Mónica Outcomes Met? Yes Yes Last [...] Patient Status Stable Skin. Condition Bruised, Intact, [place], Description same as preop Warm, and Dry [...] safely administered during the perioperative period For [facility] please see scanned medication reconcilliation form for [...] BLANKET MISTRAL AIR Quantity 1 Aid TORSO [[id number]][F] Fluid/[place] [facility] Mistral warming system Setting 43c, high Body Site Upper anterior torso Last Modified By: Rena Castelan RN 05/26/20 20:15:53 Case Comments Finalized By: Juanita Stein CST Document Signatures Signed By: Rena Castelan RN 05/26/20 20:16 Juanita Stein CST 05/27/20 13:44 Normal [facility] PACU Recordon 05-27-2020 PACU Record [id number]:127 Normal [facility] PT & PTTon 05-27-2020 aPTT Coag (PPP) [Time] 24.6 second(s) Low 25.1-36.5 [facility] Comment on above: Order Comment: Order Added by Discern Expert. Result Comment: Hepa rin therapeutic range (represented by Anti-Factor Xa activity of 0.2 - 0.4 U/mL) corresponds to PTT of 56.6 - 109.0 sec. Performed By: #### 1 9313420, 5731187, 3209403, 2534720, 2241068, 0502315, 18844192, 9331161 #### [facility] [address] [place] [address] INR Coag (PPP) [Relative time] 1.1 {INR} [facility] Comment on above: Order Comment: Order Added by Discern Expert. Result Comment: INR results are specifically intended to assess patients stabilized on long-term Anticoagulation therapy suggested INR?s ?Less Intensive Anticoagulation? 2.0 ? 3.0 Conventional Range 3.0 ? 4.5 Performed By: #### 1 7169941, 4708346, 6161788, 6939885, 2721103, 5497522, 10303477, 1546484 #### [facility] [address] [place] [address] PT Coag (PPP) [Time] 12.6 second(s) Normal 10.2-12.9 [facility] Comment on above: Order Comment: Order Added by Discern Expert. Performed By: #### 1 0821746, 1552415, 2195971, 2840311, 2993770, 2760672, 34508571, 2903794 #### [facility] [address] [place] [address] aPTT Coag (PPP) [Time] 25.1 second(s) Normal 25.1-36.5 [facility] Comment on above: Result Comment: Hepa rin therapeutic range (represented by Anti-Factor Xa activity of 0.2 - 0.4 U/mL) corresponds to PTT of 56.6 - 109.0 sec. Performed By: #### 1 3052057, 9272524, 2033429, 4504234, 3706853, 6106510, 38605678, 2189522 #### [facility] [address] [place] [address] INR Coag (PPP) [Relative time] 1.2 {INR} [facility] Comment on above: Result Comment: INR results are specifically intended to assess patients stabilized on long-term Anticoagulation therapy suggested INR?s ?Less Intensive Anticoagulation? 2.0 ? 3.0 Conventional Range 3.0 ? 4.5 Performed By: #### 1 0443308, 8738526, 8920981, 9317096, 4574129, 6548888, 10262056, 7448286 #### [facility] [address] [place] [address] PT Coag (PPP) [Time] 13.5 second(s) High 10.2-12.9 [facility] Comment on above: Performed By: #### 1 6188863, 8950013, 9469409, 5858283, 9002959, 5352889, 02825397, 7561550 #### [facility] [address] [place] [address] aPTT Coag (PPP) [Time] 24.5 second(s) Low 25.1-36.5 [facility] Comment on above: Result Comment: Hepa rin therapeutic range (represented by Anti-Factor Xa activity of 0.2 - 0.4 U/mL) corresponds to PTT of 56.6 - 109.0 sec. Performed By: #### 1 1549100, 5248971, 5054408, 2518742, 9474481, 9898591, 70252477, 2833278 #### [facility] [address] [place] [address] INR Coag (PPP) [Relative time] 1.2 {INR} [facility] Comment on above: Result Comment: INR results are specifically intended to assess patients stabilized on long-term Anticoagulation therapy suggested INR?s ?Less Intensive Anticoagulation? 2.0 ? 3.0 Conventional Range 3.0 ? 4.5 Performed By: #### 1 9248960, 5894865, 3905940, 2208968, 7564572, 5010943, 34398472, 1269779 #### [facility] [address] [place] [address] PT Coag (PPP) [Time] 14.0 second(s) High 10.2-12.9 [facility] Comment on above: Performed By: #### 1 1154286, 7949935, 5255785, 3054912, 0757489, 1532704, 60123961, 7124326 #### [facility] [address] [place] [address] ABO/Rhon 05-26-2020 ABO/Rh Positive [facility] Comment on above: Performed By: #### 1 6782091, 1734336, 3075712, 2088643, 6569354, 4223570, 77554383, 7277066 #### [facility] [address] [place] [address] 78008 ABO/Rh History Checkon 05-26 ABO/Rh History Check Verified Hx Blood Type Normal [facility] Comment on above: Performed By: #### 1 0351241, 4241917, 3899685, 5759700, 4935819, 0229261, 14349286, 4294214 #### [facility] [address] [place] [address] 83465 ABSCon 05-26-2020 ABSC Gel Interp Negative Normal [facility] Comment on above: Performed By: #### 1 5820479, 5732982, 2469659, 6385260, 1374218, 8135824, 28267579, 9262064 #### [facility] [address] [place] [address] 93142 Auto Diffon 05-26-2020 Basophils/100 WBC (Bld) 0.8 % Normal 0.0-2.0 [facility] Comment on above: Order Comment: Order Added by Discern Expert. Performed By: #### 1 9357758, 3500733, 7000605, 7406203, 5377669, 3357222, 74592219, 3384180 #### [facility] [address] [place] [address] 40977 Basophils/Leukocyte s Auto (Bld) [Pure # fraction] 0.1 E9/L Normal 0.0-0.2 [facility] Comment on above: Order Comment: Order Added by Discern Expert. Performed By: #### 1 6003120, 0274815, 0909498, 2291180, 8674578, 8035351, 31136394, 4204151 #### [facility] [address] [place] [address] 40512 Eosinophils/100 WBC (Bld) 2.0 % Normal 0.0-8.0 [facility] Comment on above: Order Comment: Order Added by Discern Expert. Performed By: #### 1 1321834, 5967649, 4809357, 9843031, 3396768, 5684878, 34138954, 0630999 #### [facility] [address] [place] [address] Eosinophils/Leukocy dariel Auto (Bld) [Pure # fraction] 0.1 E9/L Normal 0.0-0.5 [facility] Comment on above: Order Comment: Order Added by Discern Expert. Performed By: #### 1 0528408, 7452206, 3094951, 4997886, 8824916, 3867159, 95354556, 4364157 #### [facility] [address] [place] [address] Lymphocytes/100 WBC (Bld) 22.2 % Normal 14.0-50.0 [facility] Comment on above: Order Comment: Order Added by Discern Expert. Performed By: #### 1 6207512, 8262104, 9526857, 8290048, 7443549, 1102715, 38281088, 4512375 #### [facility] [address] [place] [address] 24617 Lymphocytes/Leukocy dariel Auto (Bld) [Pure # fraction] 1.6 E9/L Normal 1.0-4.0 [facility] Comment on above: Order Comment: Order Added by Discern Expert. Performed By: #### 1 8902855, 8601612, 7153022, 2756777, 7099562, 6380408, 73859734, 6739219 #### [facility] [address] [place] [address]40 Monocytes/100 WBC (Bld) 6.7 % Normal 4.0-14.0 [facility] Comment on above: Order Comment: Order Added by Discern Expert. Performed By: #### 1 7629198, 2921105, 1470339, 0018260, 9120495, 6967855, 67477694, 2581966 #### [facility] [address] [place] [address] Monocytes/Leukocyte s Auto (Bld) [Pure # fraction] 0.5 E9/L Normal 0.2-1.0 [facility] Comment on above: Order Comment: Order Added by Discern Expert. Performed By: #### 1 1516642, 2373329, 6900518, 4725725, 8915155, 1541334, 73960692, 9238160 #### [facility] [address] [place] [address] Neutrophils/100 WBC (Bld) 68.3 % Normal 36.0-75.0 [facility] Comment on above: Order Comment: Order Added by Discern Expert. Performed By: #### 1 3148737, 1504113, 0051526, 2135087, 1003641, 6801373, 19871434, 9102670 #### [facility] [address] [place] [address] Neutrophils/Leukocy dariel Auto (Bld) [Pure # fraction] 4.8 E9/L Normal 2.0-7.5 [facility] Comment on above: Order Comment: Order Added by Discern Expert. Performed By: #### 1 9678888, 4585889, 2130122, 3560120, 2887188, 3142745, 34801281, 6011770 #### [facility] [address] [place] [address] B hCG Qualon 05-26-2020 Beta hCG Ql Positive Normal [facility] Comment on above: Result Comment: mary ected Performed By: #### 1 8259532, 2412599, 1423768, 5262507, 6335295, 4952874, 92361018, 2575987 #### [facility] [address] [place] [address] BMPon 05-26-2020 Creatinine [Mass/Vol] 0.7 mg/dL Normal 0.5-1.3 [facility] Comment on above: Performed By: #### 1 6434642, 2678348, 1966356, 0284805, 0723122, 1080291, 94531989, 5127860 #### [facility] [address] [place] [address] Urea nitrogen [Mass/Vol] 15 mg/dL Normal 5-21 [facility] Comment on above: Performed By: #### 1 5006676, 7950707, 0982326, 5807543, 0144824, 9173468, 22888247, 1179423 #### [facility] [address] [place] [address] Urea nitrogen/Creatinine [Mass ratio] 21 No Units High 10-20 [facility] Comment on above: Performed By: #### 1 5273143, 9435607, 5533733, 6537264, 4485068, 9342003, 96306488, 9307841 #### [facility] [address] [place] [address] Anion gap [Moles/Vol] 12 mmol/L Normal 6-16 [facility] Comment on above: Performed By: #### 1 3260572, 7191576, 3420111, 4883444, 9356753, 8570046, 97995512, 6862512 #### [facility] [address] [place] [address] Calcium [Mass/Vol] 9.4 mg/dL Normal 8.9-11.1 [facility] Comment on above: Performed By: #### 1 2293027, 1697085, 1422287, 6954932, 2966819, 2123456, 56748177, 7051682 #### [facility] [address] [place] [address] Chloride [Moles/Vol] 105 mmol/L Normal 101-111 [facility] Comment on above: Performed By: #### 1 8063452, 2186327, 0933450, 5948042, 4844022, 9692760, 27609022, 5031587 #### [facility] [address] [place] [address] CO2 [Moles/Vol] 26 mmol/L Normal 21-31 [facility] Comment on above: Performed By: #### 1 0077980, 2977181, 4334187, 9525317, 9540682, 1805629, 87928898, 5739660 #### [facility] [address] [place] [address] Glucose [Mass/Vol] 101 mg/dL Normal 55-199 [facility] Comment on above: Result Comment: If t his glucose result represents a fasting glucose, interpretation should refer to the following reference range: 55-99 mg/dL Performed By: #### 1 0264812, 7966378, 2531791, 8694767, 8902319, 0505374, 57439575, 6506685 #### [facility] [address] [place] [address] Potassium [Moles/Vol] 3.9 mmol/L Normal 3.5-5.3 [facility] Comment on above: Performed By: #### 1 4091754, 3810357, 8068325, 4294345, 5276942, 0662324, 90730688, 2239511 #### [facility] [address] [place] [address] Sodium [Moles/Vol] 139 mmol/L Normal 135-145 [facility] Comment on above: Performed By: #### 1 2831808, 6184013, 3886482, 6291769, 1853950, 2613120, 47120471, 7272218 #### [facility] [address] [place] [address] [facility] HCG.beta subunit Qn 18 m[IU]/mL High 1-3 [facility] Comment on above: Result Comment: GEST ATIONAL AGE HCG RANGE (mIU/mL) NON- <1-3 0.2-1 WEEKS 5-50 1-2 WEEKS 50-500 2-3 WEEKS 100-5,000 3-4 WEEKS 500-10,000 4-5 WEEKS 1,000-50,000 5-6 WEEKS 10,000-100,000 6-8 WEEKS 15,000-200,000 8-12 WEEKS 10,000-100,000 Performed By: #### 1 6856649, 9748974, 0788736, 4784895, 2264387, 6304363, 46182535, 7208857 #### [facility] [address] [place] [address] Blood Bank ID#on 05-26-2020 BBID# [id number] [facility] Comment on above: Performed By: #### 1 8974553, 9889273, 0639701, 0553081, 3987774, 4117006, 32688923, 9711297 #### [facility] [address] [place] [address] CBC w/ Auto Diffon 0 Erythrocyte distribution width (RBC) [Ratio] 12.4 % Normal 10.9-14.2 [facility] Comment on above: Performed By: #### 1 6310458, 3201552, 6813913, 7202927, 4670093, 2240076, 23511999, 3580374 #### [facility] [address] [place] [address] Hematocrit (Bld) [Volume fraction] 36.6 % Normal 34.0-46.0 [facility] Comment on above: Performed By: #### 1 1548179, 4076975, 8066948, 3869181, 0407456, 8848971, 46767788, 1560093 #### [facility] [address] [place] [address] Hemoglobin (Bld) [Mass/Vol] 12.2 g/dL Normal 12.0-16.0 [facility] Comment on above: Performed By: #### 1 1849876, 0951181, 3296780, 9268138, 0344558, 4249664, 54158253, 8595951 #### [facility] [address] [place] [address] MCH (RBC) [Entitic mass] 29.8 pg Normal 27.0-34.0 [facility] Comment on above: Performed By: #### 1 7155922, 6843185, 2842895, 0289385, 0963592, 0740289, 10062926, 8554722 #### [facility] [address] [place] [address] MCHC (RBC) [Mass/Vol] 33.3 g/dL Normal 31.4-36.0 [facility] Comment on above: Performed By: #### 1 6952518, 4117454, 8239616, 3548967, 5550901, 3077463, 54282998, 3801124 #### [facility] [address] [place] [address] MCV (RBC) [Entitic vol] 89.5 fL Normal 80.0-100.0 [facility] Comment on above: Performed By: #### 1 0957009, 7178279, 9558207, 6225998, 3014865, 1863209, 59339983, 0890163 #### [facility] [address] [place] [address] Platelet mean volume (Bld) [Entitic vol] 7.4 fL Normal 6.4-10.8 [facility] Comment on above: Performed By: #### 1 2816445, 4379277, 6323680, 8271746, 7142463, 3299811, 62938647, 7695154 #### [facility] [address] [place], [place] [address] Platelets (Bld) [#/Vol] 278.0 E9/L Normal 150.0-500.0 [facility] Comment on above: Performed By: #### 1 8366493, 0514712, 1206184, 4612067, 7132764, 0316474, 59349904, 8744654 #### [facility] [address] [place], [place] [address] RBC (Bld) [#/Vol] 4.1 E12/L Low 4.3-5.9 [facility] Comment on above: Performed By: #### 1 4310736, 4503054, 3809515, 3328582, 4917603, 3574649, 52229603, 2086691 #### [facility] [address] [place] [address] WBC corrected for nucl RBC Auto (Bld) [#/Vol] 7.0 E9/L Normal 4.0-11.0 [facility] Comment on above: Performed By: #### 1 4578835, 9634990, 1744560, 6471619, 4322709, 5078733, 34341457, 1432924 #### [facility] [address] [place], [place] [address] Consent for Blood Transfusio non 05-26-2020 Consent for Blood Transfusion [id number]#[id number]:127 Normal [facility] Consent for Treatmenton Consent for Treatment [id number]#1.00CD:127 Normal [facility] ED Clinical Summaryon 2019 ED Clinical Summary (Inserted Image. Sachi ble to display) [address] [address] ED Clinical Summary Person Information Name: SUKHDEV SCHWARTZ [facility] Age: 34 Years : 1985 Sex: Female Language: Vincentian PCP: LOLI MATIAS MD Marital Status: Phone: [phone] MRN: Visit Id: Visit Reason: Nausea; Dizziness; [...] 12:32:48 ADDRESS: [address] [facility] [id number] [facility] DOC NOTES: MEDICAL INFORMATION: Prescriptions Given: [...] Follow up: With: Address: When: Davie Grijalva [facility] [address], [facility] [address], [place] [id number] [facility] (1) 05/27/2020 8:45 AM Comments: Return to ED if symptoms worsen. Drink lots of fluids. Return if you have worsening bleeding, pass out, chest pain, shortnes of breath or any other problems. DIAGNOSIS: 1:Menorrhagia Normal [facility] ED Note-Physicianon 05-26-20 ED Note-Physician [...] % (05/26/20:25:00) Lymph Auto: 22.2 % (05/26/20::) Preston Auto: 6.7 % (05/26/20:25:00) Eos Auto: 2 % (05/26/20::) Basophil Auto: 0.8 % (05/26/20::) Neutro Absolute: 4.8 E9/L (05/26/20:25:00) Lymph Absolute: 1.6 E9/L (05/26/20:25:) Preston Absolute: 0.5 E9/L (05/26/20::) Eos Absolute: 0.1 [...] Ultrasound Performed Signed By: Faraz Carter DO [facility] Comment on above: Result Comment: Elec [...] hospitalization. HOME CARE INSTRUCTIONS ? Only take seqg-mmo-frmgxnl or prescription medicines as directed by your [...] Document Reviewed: 03/25/2014 ExitCare? Patient Information ?2015 [employer]. This information is not intended to replace advice given to you by your health care provider. Make sure you discuss any questions you have with your health care provider. Normal [facility] ED Patient Summaryon 020 ED Patient Summary (Inserted Image. Sachi ble to display) [place] [id number] Patient Discharge Instructions Person Information Name: SUKHDEV SCHWARTZ Age: 34 Years Arrival Date: 05/26/2020 11:09:13 Discharge Diagnosis: 1:Menorrhagia Primary Care Physician: LOLI MATIAS MD Provider Information Primary Provider: Carline Cain DO [employer] Instructor:None The exam and treatment you received in the Emergency Department were for an urgent problem and are not intended as complete care. It is important that you follow up with a doctor, nurse practitioner, or physician?s certified surgical tech/first assistant for ongoing care. If your symptoms [...] Follow-up Instructions: With: Address: When: Davie ISSA, [facility] [address], [facility] [place] [id number] [facility] (1) 05/27/2020 8:45 AM Comments: [...] opioids can be used to help relieve xxzztnwh-zi-lpmvdl pain and are often prescribed following a [...] be struggling with addiction, tell your health human services care specialist and ask for guidance or call [facility]?S National Helpline at 3-703-512-RKXF. v Source: [place] Department of Health and Human Services/Center for Disease Control & Prevention [facility] Medications Given: Medication Dose Route Sodium Chloride 0.9% intravenous solution 1000.00 mL Initial Volume 1000.00 mL/hr IV Right Antecubit [place] Medication Information: Medications to Continue with No [...] Comment: Pharmacy Information: Thank you for choosing [facility] Patient Education Materials: Menorrhagia Menorrhagia is [...] hospitalization. HOME CARE INSTRUCTIONS ? Only take arbs-aql-ufhotot or prescription medicines as directed by your [...] Document Reviewed: 03/25/2014 ExitCare? Patient Information ?2015 [employer]. This information is not intended to replace advice given to you by your health care provider. Make sure you discuss any questions you have with your health care provider. JAMES Bain BRITTANY F , have received the following patient education materials/instructions and have verbalized understanding: Patient Education Materials: Menorrhagia Follow-up Instructions: With: Address: When: Davie Grijalva [address] [place] [address], [place] [address], [place] [address] [facility] (1) 05/27/2020 8:45 AM Comments: Return to ED if symptoms worsen. Drink lots of fluids. Return if you have worsening bleeding, pass out, chest pain, shortnes of breath or any other problems. Patient Signature __ Date Clinician/Nurse Signature Date 05/26/2020 12:32:58 Normal [facility] FFPon 05-26-2020 # of Units 2 [facility] Comment on above: Result Comment: 2019 17:56 [id number] Blood product ready and called to Jaki/OB at 05/26/2020 17:56:49 EDT by AL. Performed By: #### 1 8718051, 4826211, 8481948, 7754853, 0197262, 4997384, 77241114, 8603021 #### [facility] [address] [place] [address] Date Required [id number] [facility] Comment on above: Performed By: #### 1 3239903, 8125683, 3664332, 0310457, 8958411, 0277335, 24326757, 1063788 #### [facility] [address] [place] [address] Order to Transfuse YES [facility] Comment on above: Performed By: #### 1 9181453, 7116876, 0304178, 7896372, 7405960, 3745029, 61531352, 8147397 #### [facility] [address] [place] [address] Hematocriton 05-26-2020 Hematocrit (Bld) [Volume fraction] 27.0 % Low 34.0-46.0 [facility] Comment on above: Performed By: #### 1 9226013, 6854410, 2526201, 5742154, 7333613, 6684339, 55602462, 4055152 #### [facility] [address] [place] [address] Hemoglobinon 05-26-2020 Hemoglobin (Bld) [Mass/Vol] 9.0 g/dL Low 12.0-16.0 [facility] Comment on above: Performed By: #### 1 1846430, 6579791, 5058384, 4864013, 4602558, 2837430, 44896757, 2645857 #### [facility] [address] [place] [address] Hep Func Panelon 05-26-2020 Albumin [Mass/Vol] 1.4 g/dL Normal 1.1-2.2 [facility] Comment on above: Performed By: #### 1 6242867, 8944537, 7173581, 2597798, 4052716, 4269269, 19046646, 7824408 #### [facility] [address] [place] [address] Albumin [Mass/Vol] 4.1 g/dL Normal 3.3-5.0 [facility] Comment on above: Performed By: #### 1 4846898, 1225453, 6429133, 0922481, 2460188, 6913974, 13765679, 2273077 #### [facility] [address] [place] [address] ALP [Catalytic activity/Vol] 47 Int._Unit/L Normal 21-98 [facility] Comment on above: Performed By: #### 1 8719975, 9726916, 5560285, 7739209, 0910873, 0261149, 95425445, 2607456 #### [facility] [address] [place] [address] ALT No additional P-5'-P [Catalytic activity/Vol] 10 Int._Unit/L Normal 6-46 [facility] Comment on above: Performed By: #### 1 8264732, 5936780, 4442468, 8791076, 8489038, 0359201, 31918172, 4894422 #### [facility] [address] [place] [address] AST [Catalytic activity/Vol] 12 Int._Unit/L Normal 5-43 [facility] Comment on above: Performed By: #### 1 7033899, 4735968, 4232590, 0586808, 2443628, 3789999, 08706387, 8369174 #### [facility] [address] [place] [address] Bilirubin [Mass/Vol] 0.8 mg/dL Normal 0.0-1.1 [facility] Comment on above: Performed By: #### 1 5820355, 4370910, 8449932, 6196974, 7364174, 4726394, 73342217, 2803681 #### [facility] [address] [place] [address] Bilirubin.direct [Mass/Vol] 0.7 mg/dL Normal 0.1-0.9 [facility] Comment on above: Performed By: #### 1 4652532, 6944498, 3290887, 3335073, 4231705, 6998102, 12394626, 8328060 #### [facility] [address] [place] [address] Bilirubin.direct [Mass/Vol] 0.1 mg/dL Normal 0.1-0.4 [facility] Comment on above: Performed By: #### 1 0176528, 6890713, 0726316, 0974908, 1731680, 2313041, 82251315, 6787539 #### [facility] [address] [place] [address] Globulin (S) [Mass/Vol] 2.9 g/dL Normal 1.4-4.0 [facility] Comment on above: Performed By: #### 1 5009420, 0008763, 1847299, 4124264, 4501949, 3267190, 27304526, 4017649 #### [facility] [address] [place] [address] Protein [Mass/Vol] 7.0 g/dL Normal 6.0-7.8 [facility] Comment on above: Performed By: #### 1 0623501, 3571284, 2344898, 0897168, 0812117, 4208372, 86879888, 3747649 #### [facility] [address] [place] [address] Main OR PACU I Recordon Main OR PACU I Record PACU Phase I Document Type FT Summary Primary Physician: Davie Grijalva MD Finalized Date/Time: 05/26/20 20:48:43 Pt. Name: SUKHDEV SCHWARTZ/Sex: 1985 Female Med Rec #: [id number] Physician: Davie Grijalva MD Financial #: [id number] Pt. Type: O Room/Bed: N410/01 Admit/Disch: 05/26/20 [...] Reed RN 05/26/20 20:48 Normal [facility] Main OR Preoperative Recordo n 05-26-2020 Main OR Preoperative Record Holding Area Document Type FT Summary Primary Physician: Davie Grijalva MD Finalized Date/Time: 05/26/20 20:04:05 Pt. Name: SUKHDEV SCHWARTZ /Sex: 1985 Female Med Rec #: [id number] Physician: Davie Grijalva MD Financial #: [id number] Pt. Type: O Room/Bed: [facility]/ Admit/Disch: 05/26/20 11:09:13 - Institution: [...] Castelan RN 05/26/20 20:04 Normal [facility] Monitor Recordon 05-26-2020 Monitor Record [id number]#[id number]:127 Normal [facility] Monitor Record [id number]#[id number]:127 Normal [facility] Monitor Record [id number]#[id number]:127 Normal [facility] Monitor Record [id number]#[id number]:127 Normal [facility] Monitor Record [id number]#[id number]:127 Normal [facility] Monitor Record [id number]:127 Normal [facility] PT & PTTon 05-26-2020 aPTT Coag (PPP) [Time] 30.1 second(s) Normal 25.1-36.5 [facility] Comment on above: Result Comment: Hepa rin therapeutic range (represented by Anti-Factor Xa activity of 0.2 - 0.4 U/mL) corresponds to PTT of 56.6 - 109.0 sec. Performed By: #### 1 2396355, 5807117, 0950371, 9212401, 1169091, 8354955, 58259301, 9734855 #### [facility] [address] [place] [address] INR Coag (PPP) [Relative time] 1.1 {INR} [facility] Comment on above: Result Comment: INR results are specifically intended to assess patients stabilized on long-term Anticoagulation therapy suggested INR?s ?Less Intensive Anticoagulation? 2.0 ? 3.0 Conventional Range 3.0 ? 4.5 Performed By: #### 1 5610133, 3788820, 0373069, 1390476, 8424008, 6849549, 70199931, 9485368 #### [facility] [address] [place] [address] PT Coag (PPP) [Time] 12.5 second(s) Normal 10.2-12.9 [facility] Comment on above: Performed By: #### 1 4192528, 6899179, 5502785, 8075084, 6425278, 1395534, 37749639, 1833964 #### [facility] [address] [place] [address] Progesteroneon 05-26-2020 Progesterone [Mass/Vol] 0.90 ng/mL [facility] Comment on above: Result Comment: REFE RENCE RANGE Males 0.14-2.06 ng/mL Non- Females Follicular 0.10-0.60 ng/mL Luteal 3.00-17.5 ng/mL Midluteal 3.30-18.6 ng/mL Post-Menopausal 0.10-0.40 ng/mL First Trimester 8.30-66.5 ng/mL Second Trimester 18.9-66.1 ng/mL Third Trimester 35.8-312.4 ng/mL Performed By: #### 1 2265951, 2070224, 1114264, 5149706, 3569586, 2967220, 04061347, 8798748 #### [facility] [address] [place] [address] Progress Note-Nurseon 2019 Progress Note-Nurse Blood obtained per Rhoda Grijalva order and patient taken to surgery. Blood given to Lauren in surgery. Normal [facility] Progress Note-Nurse Dr. Grijalva in at [facility] with pelvic tray and patient and patient begin to bleed heavily and pt heart rate decreased to 50's and patient BP registered in the 60's. pt pale and clammy. Pt in Trendelenburg and fluids open wide. Patient blood pressure up to 100's and HR in the 70's and Dr. Grijalva at [facility] Normal [facility] Progress Note-Nurse Ultrasound at [facility] de to perform beside US Normal [facility] Progress Note-Nurse Patient coloring imp roved at this time and patient VS improved. Dr. Cain aware and awaiting US Normal [facility] Progress Note-Nurse This nurse and [...] started per Altagracia Godinez. Dr. Cain at [facility]. Patient verbalized she is starting to feel better at this time Normal [facility] Progress Note-Physicianon Progress Note-Physician Patient: [...] q6hr, # 15 tab(s), Refills(s) 0, Pharmacy: [facility] #16 Documented Medications Documented Multivitamins: 1 tab(s), [...] list: All Problems Pancreatitis / SNOMED CT 589342241 / Confirmed Incomplete miscarriage / SNOMED CT 576425961 / Confirmed missed Ovarian dysfunction / SNOMED CT 07523477 / Confirmed Hypothyroidism / SNOMED CT 93679904 / Confirmed, Active Problems (4) Hypothyroidism Incomplete miscarriage Ovarian dysfunction Pancreatitis Histories Past Medical History: No active or resolved past medical history items have been selected or recorded. Family History: Diabetes mellitus type 2 Mother Thyroid cancer Mother Sister Procedure history: Dilation and curettage ([id number]) on 10/20/2019 at 33 Years. Comments: 10/20/2019 19:10 Kat Rosenbaum RN DILATION & SUCTION CURETTAGE Cholecystectomy ([id number]) on 07/19/2019 at 33 Years. DIAGNOSTIC LAPAROSCOPY [...] 26) Cr 0.7 (MAY 26) . Plan [place] [employer] (ASA) physical status classification: Class III, E. Anesthetic Preoperative Plan Anesthesia: General. . Anesthetic plan, risks, benefits, and alternatives discussed with the patient and/or family. Pt. and/or family present and agree to proceed as planned.. Discussed the importance of abstaining from tobacco products, and offered counseling if desired. Normal [facility] Comment on above: Result Comment: Elec tronically Signed By: Jerel Martin JR, DO\.yvonne\Date and Time Signed: 05/26/20 17:16 EDT [facility] 05-26-2020 # of Units 4 [facility] Comment on above: Result Comment: 2019 18:39 [id number] Blood product ready and called to Jaki/OB at 05/26/2020 18:39:16 EDT by AL. Performed By: #### 1 [id number], 9088965, 3031925, 7927227, 4085476, 8607667, 23510802, 4052214 #### [facility] Laboratory [address] [place] [address] Date Required 05-26-2020 [facility] Comment on above: Performed By: #### 1 [id number], 4820638, 2190599, 2700450, 5218291, 6578562, 04081900, 4726746 #### [facility] Laboratory [address] [place] [address] 35093 Product Type None Required [facility] Comment on above: Performed By: #### 1 1826560, 0093184, 9733321, 4679561, 4813249, 2849431, 98838591, 9993911 #### [facility] Laboratory [address] [place] [address] # of Units 1 [facility] Comment on above: Result Comment: 2019 16:29 [id number] Blood product ready and called to Lauren at 05/26/2020 16:29:10 EDT by ALElayne Performed By: #### 1 [id number], 9527203, 9003056, 8939977, 9148527, 5975648, 27602411, 1192042 #### [facility] [address] [place] [address] # of Units 2 [facility] Comment on above: Performed By: #### 1 4090914, 9975405, 1269931, 1979504, 8962028, 0650275, 10397977, 7093346 #### [facility] Laboratory [address] [place], [place] [address] Date Required 05/26/2020 [facility] Comment on above: Performed By: #### 1 7102850, 6927958, 0414028, 3432367, 4153209, 0506724, 82352645, 2778890 #### [facility] [address] [place], [place] [address] Date Required [facility] Comment on above: Performed By: #### 1 9379790, 3507890, 4045153, 6803222, 4541968, 7134425, 26359773, 4842768 #### [facility] [address] [place] [address] 89753 Product Type None Required [facility] Comment on above: Performed By: #### 1 3456766, 4195212, 8586775, 8482590, 5779830, 0929311, 52608684, 6242849 #### [facility] [address] [place] [address] # of Units 1 [facility] Comment on above: Result Comment: 2019 15:50 [id number] Blood product ready and called to Topher/ER at 05/26/2020 15:49:51 EDT by AL. Performed By: #### 1 4044864, 3922477, 7685000, 3409551, 2894872, 8878425, 46462326, 3588836 #### [facility] [address] [place] [address] Date Required 05/26/2020 [facility] Comment on above: Performed By: #### 1 4678424, 3608247, 2096427, 9272533, 1764595, 3109644, 91382374, 7449688 #### [facility] [address] [place] [address] Product Type None Required [facility] Comment on above: Performed By: #### 1 1960930, 1589811, 0995979, 0783964, 1213293, 8971743, 53457829, 9494606 #### [facility] [address] [place] [address] 25594 US 1st Trimesteron 05-26-2020 US 1st Trimester [...] 2 Transabdominal Ultrasound Performed Normal [facility] eGFRon 05-26-2020 GFR/1.73 sq M predicted among blacks MDRD (S/P/Bld) [Vol rate/Area] mL/min/{1.73_m2} Normal >=59 [facility] Comment on above: Order Comment: Order added by Discern Expert. Result Comment: eGFR is race adjusted. AA=. Performed By: #### 1 6048493, 3563331, 6124885, 1278988, 1729871, 4922868, 54554006, 8506271 #### [facility] [address] [place] [address] GFR/1.73 sq M predicted among non-blacks MDRD (S/P/Bld) [Vol rate/Area] mL/min/{1.73_m2} Normal >=59 [facility] Comment on above: Order Comment: Order added by Discern Expert. Result Comment: Patient Sitter ivan kidney disease could be indicated at eGFR's of less than 60 mL/min/1.73m2. Kidney failure is indicated at less than 15 mL/min/1.73m2. Performed By: #### 1 1683152, 2337978, 7319475, 7311787, 6142433, 5499581, 53357391, 6963660 #### [facility] [address] [place] [address] Coding Summary.on 01-23-2020 Coding Summary. CODING DATE: 020 FINAL [facility] STATUS: Home (Routine DC) PAYOR: Leela [...] Saved: 01/23/2020 12:44 pm Normal [facility] Estradiolon 01-23-2020 E2 [Mass/Vol] 1822.0 pg/mL [facility] Comment on above: Result Comment: Adul t Female: Follicular phase 12.5 - 166.0 Ovulation phase 85.8 - 498.0 Luteal phase 43.8 - 211.0 Postmenopausal <6.0 - 54.7 1st trimester 215.0 - >4300.0 Girls (1-10 years) 6.0 - 27.0 Mal ECLIA methodology Performed at: [facility] [id number] PhD Subhash Coronel Performed By: #### 1 4278096, 7309597, 9129001, 1089406, 0582462, 3137830, 35450394, 5381598 #### [facility] [address] [place] [address] BhCG Quanton 01-22-2020 [place] [address] m[IU]/mL High 1-3 F [facility] Comment on above: Result Comment: GEST ATIONAL AGE HCG RANGE (mIU/mL) NON- <1-3 0.2-1 WEEKS 5-50 1-2 WEEKS 50-500 2-3 WEEKS 100-5,000 3-4 WEEKS 500-10,000 4-5 WEEKS 1,000-50,000 5-6 WEEKS 10,000-100,000 6-8 WEEKS 15,000-200,000 8-12 WEEKS 10,000-100,000 Performed By: #### 1 1232991, 4030524, 7363523, 4516488, 0379993, 0234139, 09143707, 3974288 #### [facility] [address] [place] [address] Progesteroneon 01-22-2020 Progesterone [Mass/Vol] 21.50 ng/mL [facility] Comment on above: Result Comment: REFE RENCE RANGE Males 0.14-2.06 ng/mL Non- Females Follicular 0.10-0.60 ng/mL Luteal 3.00-17.5 ng/mL Midluteal 3.30-18.6 ng/mL Post-Menopausal 0.10-0.40 ng/mL First Trimester 8.30-66.5 ng/mL Second Trimester 18.9-66.1 ng/mL Third Trimester 35.8-312.4 ng/mL Performed By: #### 1 4425622, 8720031, 6945090, 7741164, 7850382, 9048892, 43545795, 9656156 #### [facility] [address] [place] [address] Coding Summary.on 01-16-2020 Coding Summary. CODING DATE: 020 FINAL [facility] STATUS: Home (Routine DC) PAYOR: Leela [...] Saved: 01/16/2020 07:40 am Normal [facility] Estradiolon 01-16-2020 E2 [Mass/Vol] 1275.0 pg/mL [facility] Comment on above: Result Comment: Adul t Female: Follicular phase 12.5 - 166.0 Ovulation phase 85.8 - 498.0 Luteal phase 43.8 - 211.0 Postmenopausal <6.0 - 54.7 1st trimester 215.0 - >4300.0 Girls (1-10 years) 6.0 - 27.0 Mal ECLIA methodology Performed at: [facility] [address] [id number] PhD Subhash Coronel Performed By: #### 1 9582573, 9975261, 2747257, 2750105, 2156352, 6248590, 37262875, 8597806 #### [facility] [address] [place] [address] BhCG Quanton 01-15-2020 [place] Qn 4061 m[IU]/mL High 1-3 [facility] Comment on above: Result Comment: GEST ATIONAL AGE HCG RANGE (mIU/mL) NON- <1-3 0.2-1 WEEKS 5-50 1-2 WEEKS 50-500 2-3 WEEKS 100-5,000 3-4 WEEKS 500-10,000 4-5 WEEKS 1,000-50,000 5-6 WEEKS 10,000-100,000 6-8 WEEKS 15,000-200,000 8-12 WEEKS 10,000-100,000 Performed By: #### 1 2822491, 5092055, 8106268, 3849527, 0832518, 8422445, 98135960, 5982640 #### [facility] [address] [place] [address] Progesteroneon 01-15-2020 Progesterone [Mass/Vol] 32.10 ng/mL [facility] Comment on above: Result Comment: REFE RENCE RANGE Males 0.14-2.06 ng/mL Non- Females Follicular 0.10-0.60 ng/mL Luteal 3.00-17.5 ng/mL Midluteal 3.30-18.6 ng/mL Post-Menopausal 0.10-0.40 ng/mL First Trimester 8.30-66.5 ng/mL Second Trimester 18.9-66.1 ng/mL Third Trimester 35.8-312.4 ng/mL Performed By: #### 1 4412261, 3203812, 0665349, 2651346, 2226040, 6035758, 86721368, 4780797 #### [facility] [address] [place] [address] Coding Summary.on 01-09-2020 Coding Summary. CODING DATE: 020 FINAL [facility] STATUS: Home (Routine DC) PAYOR: Leela [...] Saved: 01/09/2020 07:10 am Normal [facility] Estradiolon 01-09-2020 E2 [Mass/Vol] 572.2 pg/mL [facility] Comment on above: Result Comment: Adul t Female: Follicular phase 12.5 - 166.0 Ovulation phase 85.8 - 498.0 Luteal phase 43.8 - 211.0 Postmenopausal <6.0 - 54.7 1st trimester 215.0 - >4300.0 Girls (1-10 years) 6.0 - 27.0 Mal ECLIA methodology Performed at: [facility] [address] [id number] PhD Subhash Coronel Performed By: #### 1 9214906, 4329628, 3666855, 0628500, 6527067, 7012313, 35519695, 3237157 #### [facility] [address] [place] [address] [facility] 01-08-2020 HCG.beta subunit Qn 898 m[IU]/mL High 1-3 [facility] Comment on above: Result Comment: GEST ATIONAL AGE HCG RANGE (mIU/mL) NON- <1-3 0.2-1 WEEKS 5-50 1-2 WEEKS 50-500 2-3 WEEKS 100-5,000 3-4 WEEKS 500-10,000 4-5 WEEKS 1,000-50,000 5-6 WEEKS 10,000-100,000 6-8 WEEKS 15,000-200,000 8-12 WEEKS 10,000-100,000 Performed By: #### 1 6418781, 9440337, 6563203, 0952762, 7499849, 3172206, 16228354, 0769326 #### [facility] [address] [place] [address] Progesteroneon 01-08-2020 Progesterone [Mass/Vol] 27.90 ng/mL [facility] Comment on above: Result Comment: REFE RENCE RANGE Males 0.14-2.06 ng/mL Non- Females Follicular 0.10-0.60 ng/mL Luteal 3.00-17.5 ng/mL Midluteal 3.30-18.6 ng/mL Post-Menopausal 0.10-0.40 ng/mL First Trimester 8.30-66.5 ng/mL Second Trimester 18.9-66.1 ng/mL Third Trimester 35.8-312.4 ng/mL Performed By: #### 1 3821286, 5719894, 1316102, 8245793, 8013285, 7195554, 97965201, 7135730 #### [facility] [address] [place] [address] Coding Summary.on 01-02-2020 Coding Summary. CODING DATE: 020 FINAL [facility] STATUS: Home (Routine DC) PAYOR: Moran ADMIT DX: REASON FOR VISIT DX: Z32.01 [...] Saved: 01/02/2020 10:23 am Normal [facility] Estradiolon 01-02-2020 E2 [Mass/Vol] 1694.0 pg/mL [facility] Comment on above: Result Comment: Adul t Female: Follicular phase 12.5 - 166.0 Ovulation phase 85.8 - 498.0 Luteal phase 43.8 - 211.0 Postmenopausal <6.0 - 54.7 1st trimester 215.0 - >4300.0 Girls (1-10 years) 6.0 - 27.0 Mal ECLIA methodology Performed at: [facility] [id number] PhD Subhash Coronel Performed By: #### 1 6563177, 4048450, 7958322, 8560670, 5158298, 2120577, 80294007, 0420822 #### [facility] [address] [place] [address] [facility] Quanton 01-01-2020 HCG.beta subunit Qn 124 m[IU]/mL High 1-3 [facility] Comment on above: Result Comment: GEST ATIONAL AGE HCG RANGE (mIU/mL) NON- <1-3 0.2-1 WEEKS 5-50 1-2 WEEKS 50-500 2-3 WEEKS 100-5,000 3-4 WEEKS 500-10,000 4-5 WEEKS 1,000-50,000 5-6 WEEKS 10,000-100,000 6-8 WEEKS 15,000-200,000 8-12 WEEKS 10,000-100,000 Performed By: #### 1 3900245, 9501436, 8695049, 2000875, 8798865, 5116510, 54915710, 8981968 #### [facility] [address] [place] [address] Coding Summary.on 01-01-2020 Coding Summary. CODING DATE: 020 FINAL [facility] STATUS: Home (Routine DC) PAYOR: Moran ADMIT DX: REASON FOR VISIT DX: E28.9 [...] Saved: 01/01/2020 02:22 pm Normal [facility] Progesteroneon 01-01-2020 Progesterone [Mass/Vol] 23.10 ng/mL [facility] Comment on above: Result Comment: REFE RENCE RANGE Males 0.14-2.06 ng/mL Non- Females Follicular 0.10-0.60 ng/mL Luteal 3.00-17.5 ng/mL Midluteal 3.30-18.6 ng/mL Post-Menopausal 0.10-0.40 ng/mL First Trimester 8.30-66.5 ng/mL Second Trimester 18.9-66.1 ng/mL Third Trimester 35.8-312.4 ng/mL Performed By: #### 1 8968817, 7975464, 1666192, 5016894, 1378704, 2841670, 03825734, 4237757 #### [facility] [address] [place] [address] Coding Summary.on 12-31-2019 Coding Summary. CODING DATE: 020 [facility] STATUS: Home (Routine DC) PAYOR: Moran ADMIT DX: REASON FOR VISIT DX: E28.9 [...] Saved: 12/31/2019 08:09 am Normal [facility] Estradiolon 12-30-2019 E2 [Mass/Vol] 1478.0 pg/mL [facility] Comment on above: Result Comment: Adul t Female: Follicular phase 12.5 - 166.0 Ovulation phase 85.8 - 498.0 Luteal phase 43.8 - 211.0 Postmenopausal <6.0 - 54.7 1st trimester 215.0 - >4300.0 Girls (1-10 years) 6.0 - 27.0 Mal ECLIA methodology Performed at: [facility] [address] [id number] PhD Subhash Coronel Performed By: #### 1 8788737, 7674232, 3229763, 5390247, 6728339, 9395999, 66777664, 1846126 #### [facility] [address] [place] [address] BhCG Quanton 12-29-2019 HCG.beta subunit Qn 34 m[IU]/mL High 1-3 [facility] Comment on above: Result Comment: GEST ATIONAL AGE HCG RANGE (mIU/mL) NON- <1-3 0.2-1 WEEKS 5-50 1-2 WEEKS 50-500 2-3 WEEKS 100-5,000 3-4 WEEKS 500-10,000 4-5 WEEKS 1,000-50,000 5-6 WEEKS 10,000-100,000 6-8 WEEKS 15,000-200,000 8-12 WEEKS 10,000-100,000 Performed By: #### 1 7037831, 8762372, 9413610, 2012401, 4175915, 9783485, 08767775, 9766649 #### [facility] [address] [place] [address] Progesteroneon 12-29-2019 Progesterone [Mass/Vol] 21.80 ng/mL [facility] Comment on above: Result Comment: REFE RENCE RANGE Males 0.14-2.06 ng/mL Non- Females Follicular 0.10-0.60 ng/mL Luteal 3.00-17.5 ng/mL Midluteal 3.30-18.6 ng/mL Post-Menopausal 0.10-0.40 ng/mL First Trimester 8.30-66.5 ng/mL Second Trimester 18.9-66.1 ng/mL Third Trimester 35.8-312.4 ng/mL Performed By: #### 1 7118673, 3855503, 4352832, 0583902, 1749415, 0904550, 34506636, 9784658 #### [facility] [address] [place] [address] BhCG Quanton 12-27-2019 HCG.beta subunit Qn 19 m[IU]/mL High 1-3 Fish [facility] Comment on above: Result Comment: GEST ATIONAL AGE HCG RANGE (mIU/mL) NON- <1-3 0.2-1 WEEKS 5-50 1-2 WEEKS 50-500 2-3 WEEKS 100-5,000 3-4 WEEKS 500-10,000 4-5 WEEKS 1,000-50,000 5-6 WEEKS 10,000-100,000 6-8 WEEKS 15,000-200,000 8-12 WEEKS 10,000-100,000 Performed By: #### 1 4049920, 6092434, 9437503, 2456146, 0525643, 2667993, 89245731, 7468597 #### [facility] [address] [place] [address] Progesteroneon 12-27-2019 Progesterone [Mass/Vol] 22.60 ng/mL [facility] Comment on above: Result Comment: REFE RENCE RANGE Males 0.14-2.06 ng/mL Non- Females Follicular 0.10-0.60 ng/mL Luteal 3.00-17.5 ng/mL Midluteal 3.30-18.6 ng/mL Post-Menopausal 0.10-0.40 ng/mL First Trimester 8.30-66.5 ng/mL Second Trimester 18.9-66.1 ng/mL Third Trimester 35.8-312.4 ng/mL Performed By: #### 1 6023306, 7233873, 2851087, 2692691, 2033202, 1533735, 10359333, 7671068 #### [facility] [address] [place] [address] Coding Summary.on 12-25-2019 Coding Summary. CODING DATE: 020 FINAL [facility] STATUS: Home (Routine DC) PAYOR: Leela [...] Saved: 12/22/2019 04:17 pm Normal [facility] Coding Summary. CODING DATE: 020 [facility] STATUS: PAYOR: Leela ADMIT DX: [...] Saved: 12/22/2019 04:17 pm Normal [facility] Estradiolon 12-23-2019 E2 [Mass/Vol] 1555.0 pg/mL [facility] Comment on above: Result Comment: Adul t Female: Follicular phase 12.5 - 166.0 Ovulation phase 85.8 - 498.0 Luteal phase 43.8 - 211.0 Postmenopausal <6.0 - 54.7 1st trimester 215.0 - >4300.0 Girls (1-10 years) 6.0 - 27.0 Mal ECLIA methodology Performed at: [facility] [id number] PhD Subhash Coronel Performed By: #### 1 1769047, 4466981, 7783965, 6900089, 4391896, 8368648, 60733335, 3907435 #### [facility] [address] [place] [address] Progesteroneon 12-22-2019 Progesterone [Mass/Vol] 25.40 ng/mL [facility] Comment on above: Result Comment: REFE RENCE RANGE Males 0.14-2.06 ng/mL Non- Females Follicular 0.10-0.60 ng/mL Luteal 3.00-17.5 ng/mL Midluteal 3.30-18.6 ng/mL Post-Menopausal 0.10-0.40 ng/mL First Trimester 8.30-66.5 ng/mL Second Trimester 18.9-66.1 ng/mL Third Trimester 35.8-312.4 ng/mL Performed By: #### 1 1881205, 3420093, 0240843, 8614065, 8841518, 9070567, 30459338, 5666893 #### [facility] [address] [place] [address] Coding Summary.on 12-11-2019 Coding Summary. CODING DATE: 020 FINAL [facility] STATUS: Home (Routine DC) PAYOR: Leela [...] Saved: 12/11/2019 12:51 pm Normal [facility] Estradiolon 12-09-2019 E2 [Mass/Vol] 1486.0 pg/mL [facility] Comment on above: Result Comment: Adul t Female: Follicular phase 12.5 - 166.0 Ovulation phase 85.8 - 498.0 Luteal phase 43.8 - 211.0 Postmenopausal <6.0 - 54.7 1st trimester 215.0 - >4300.0 Girls (1-10 years) 6.0 - 27.0 Mal ECLIA methodology Performed at: [facility] [id number] PhD Subhash Coronel Performed By: #### 1 7120175, 0547817, 0650240, 6787603, 7263478, 0257494, 83127956, 9608868 #### [facility] [address] [place] [address] LHon 12-09-2019 Lutropin Qn 6.2 m[IU]/mL [facility] Comment on above: Result Comment: Adul t Female: Follicular phase 2.4 - 12.6 Ovulation phase 14.0 - 95.6 Luteal phase 1.0 - 11.4 Postmenopausal 7.7 - 58.5 Performed at: [facility] [id number] PhD Subhash Coronel Performed By: #### 1 6614153, 2956682, 7752741, 2231529, 0121717, 9068871, 88977497, 2494285 #### [facility] [address] [place] [address] Progesteroneon 12-08-2019 Progesterone [Mass/Vol] ng/mL [facility] Comment on above: Result Comment: REFE RENCE RANGE Males 0.14-2.06 ng/mL Non- Females Follicular 0.10-0.60 ng/mL Luteal 3.00-17.5 ng/mL Midluteal 3.30-18.6 ng/mL Post-Menopausal 0.10-0.40 ng/mL First Trimester 8.30-66.5 ng/mL Second Trimester 18.9-66.1 ng/mL Third Trimester 35.8-312.4 ng/mL Performed By: #### 1 4294484, 1343869, 9764037, 5397819, 5983726, 9525069, 84008476, 7270930 #### [facility] [address] [place] [address] US Pelvis Non-OB Completeon 12-08-2019 US Pelvis [...] Performed Transvaginal Ultrasound Performed Normal [facility] US Transvaginal Non-OBon US Transvaginal Non-OB Exam Date/Time: 12/08/2019 07:42 EST Reason for Exam: OVARIAN DYSFUNCTION Report Please refer to prior transabdominal pelvic sonogram report. FINAL REPORT Dictated: 12/08/2019 12:35 pm Citlaly Buchanan MD Signed (Electronic Signature): 12/08/2019 12:35 pm Signed by: Citlaly Buchanan MD Transcribed by: MADISON Technologist: JESSICA Normal [facility] Coding Summary.on 12-05-2019 Coding Summary. CODING DATE: 020 FINAL [facility] STATUS: Home (Routine DC) PAYOR: Leela [...] Saved: 12/05/2019 10:15 am Normal [facility] Estradiolon 12-05-2019 E2 [Mass/Vol] 1328.0 pg/mL [facility] Comment on above: Result Comment: Adul t Female: Follicular phase 12.5 - 166.0 Ovulation phase 85.8 - 498.0 Luteal phase 43.8 - 211.0 Postmenopausal <6.0 - 54.7 1st trimester 215.0 - >4300.0 Girls (1-10 years) 6.0 - 27.0 Mal ECLIA methodology Performed at: [facility] [address] [id number] PhD Subhash Coronel Performed By: #### 1 2521066, 2281259, 4889246, 9613475, 2366210, 7904817, 94075507, 1323911 #### [facility] [address] [place] [address] LHon 12-05-2019 Lutropin Qn 7.2 m[IU]/mL [facility] Comment on above: Result Comment: Adul t Female: Follicular phase 2.4 - 12.6 Ovulation phase 14.0 - 95.6 Luteal phase 1.0 - 11.4 Postmenopausal 7.7 - 58.5 Performed at: [facility] [address] [id number] PhD Subhash Coronel Performed By: #### 1 0410726, 3094566, 9704226, 2514959, 8344716, 4389067, 51343407, 3230820 #### [facility] [address] [place] [address] Progesteroneon 12-04-2019 Progesterone [Mass/Vol] ng/mL [facility] Comment on above: Result Comment: REFE RENCE RANGE Males 0.14-2.06 ng/mL Non- Females Follicular 0.10-0.60 ng/mL Luteal 3.00-17.5 ng/mL Midluteal 3.30-18.6 ng/mL Post-Menopausal 0.10-0.40 ng/mL First Trimester 8.30-66.5 ng/mL Second Trimester 18.9-66.1 ng/mL Third Trimester 35.8-312.4 ng/mL Performed By: #### 1 6249236, 4346262, 0711443, 3084122, 4831007, 6755840, 72994966, 1074591 #### [facility] [address] [place] [address] US Pelvis Non-OB Completeon 12-04-2019 US Pelvis [...] Comments Transabdominal Ultrasound Performed Transvaginal Ultrasound Performed [facility] US Transvaginal Non-OBon US Transvaginal Non-OB Exam Date/Time: 12/04/2019 07:41 EST Reason for Exam: OVARIAN DYSFUNCTION Report PLEASE REFER TO THE ULTRASOUND PELVIS NON-OB COMPLETE REPORT. FINAL REPORT Dictated: 12/04/2019 9:12 am Go Kaplan M.D. Signed (Electronic Signature): 12/04/2019 9:12 am Signed by: Go Kaplan M.D. Transcribed by: MADISON Technologist: SYBIL [facility] Coding Summary.on 12-01-2019 Coding Summary. CODING DATE: 020 FINAL [facility] STATUS: Home (Routine DC) PAYOR: Moran APC DESCRIPTION 5522 Level 2 Imaging without [...] [facility] Date Saved: 12/01/2019 12:45 pm [facility] Estradiolon 12-01-2019 E2 [Mass/Vol] 945.3 pg/mL [facility] Comment on above: Result Comment: Adul t Female: Follicular phase 12.5 - 166.0 Ovulation phase 85.8 - 498.0 Luteal phase 43.8 - 211.0 Postmenopausal <6.0 - 54.7 1st trimester 215.0 - >4300.0 Girls (1-10 years) 6.0 - 27.0 Mal ECLIA methodology Performed at: [facility] [id number] [id number] PhD Subhash Coronel Performed By: #### 1 1579662, 9031682, 1471631, 1796669, 7771852, 3140783, 87290145, 5960118 #### [facility] [address] [place] [address] LHon 12-01-2019 Lutropin Qn 6.9 m[IU]/mL [facility] Comment on above: Result Comment: Adul t Female: Follicular phase 2.4 - 12.6 Ovulation phase 14.0 - 95.6 Luteal phase 1.0 - 11.4 Postmenopausal 7.7 - 58.5 Performed at: [facility] [id number] PhD Subhash Coronel Performed By: #### 1 8014007, 6658163, 0352508, 7786470, 5423716, 0380632, 40740261, 8287104 #### [facility] [address] [place] [address] Progesteroneon 11-30-2019 Progesterone [Mass/Vol] 0.10 ng/mL [facility] Comment on above: Result Comment: REFE RENCE RANGE Males 0.14-2.06 ng/mL Non- Females Follicular 0.10-0.60 ng/mL Luteal 3.00-17.5 ng/mL Midluteal 3.30-18.6 ng/mL Post-Menopausal 0.10-0.40 ng/mL First Trimester 8.30-66.5 ng/mL Second Trimester 18.9-66.1 ng/mL Third Trimester 35.8-312.4 ng/mL Performed By: #### 1 7237895, 6166666, 4183626, 1364131, 4331732, 7202540, 21530251, 2830269 #### [facility] [address] [place] [address] US Pelvis Non-OB Completeon 11-30-2019 US Pelvis [...] 11/30/2019 13:21 EST by Go Kaplan M.D. [facility] US Transvaginal Non-OBon US Transvaginal Non-OB Exam Date/Time: 11/30/2019 07:37 EST Reason for Exam: ovarian dysfunction Report PLEASE REFER TO THE ULTRASOUND PELVIS NON-OB COMPLETE REPORT. FINAL REPORT Dictated: 11/30/2019 9:01 am Go Kaplan M.D. Signed (Electronic Signature): 11/30/2019 9:01 am Signed by: Go Kaplan M.D. Transcribed by: MADISON Technologist: JESSICA Normal [facility] Coding Summary.on 11-24-2019 Coding Summary. CODING DATE: 020 [facility] STATUS: Home (Routine DC) PAYOR: Moran APC DESCRIPTION 5522 Level 2 Imaging without [...] Saved: 11/24/2019 08:10 am Normal [facility] Estradiolon 11-24-2019 E2 [Mass/Vol] 35.2 pg/mL [facility] Comment on above: Result Comment: [facility] t Female: Follicular phase 12.5 - 166.0 Ovulation phase 85.8 - 498.0 Luteal phase 43.8 - 211.0 Postmenopausal <6.0 - 54.7 1st trimester 215.0 - >4300.0 Girls (1-10 years) 6.0 - 27.0 Mal ECLIA methodology Performed at: [address] [id number] PhD Subhash Coronel Performed By: #### 1 [id number], 1129755, 6229502, 4307512, 6566256, 8906269, 79399014, 9241577 #### [facility] Laboratory [address] [place] [address] FSH and LHon 11-24-2019 Follitropin Qn 8.7 m[IU]/mL [facility] Comment on above: Result Comment: [facility] t Female: Follicular phase 3.5 - 12.5 Ovulation phase 4.7 - 21.5 Luteal phase 1.7 - 7.7 Postmenopausal 25.8 - 134.8 Performed at: [address] [id number] PhD Subhash Coronel Performed By: #### 1 [id number], 8762512, 0701195, 5410737, 7161905, 7671198, 84405893, 8524791 #### [facility] Laboratory [address] [place] [address] Lutropin Qn 9.1 m[IU]/mL [facility] Comment on above: Result Comment: [facility] t Female: Follicular phase 2.4 - 12.6 Ovulation phase 14.0 - 95.6 Luteal phase 1.0 - 11.4 Postmenopausal 7.7 - 58.5 Performed By: #### 1 [id number], 7206199, 5624829, 2624691, 4552070, 0472525, 34210937, 6023954 #### [facility] Laboratory [address] [place] [address] BhCG Quanton 11-23-2019 HCG.beta subunit Qn m[IU]/mL Normal 1-3 [facility] Comment on above: Result Comment: GEST ATIONAL AGE HCG RANGE (mIU/mL) NON- <1-3 0.2-1 WEEKS 5-50 1-2 WEEKS 50-500 2-3 WEEKS 100-5,000 3-4 WEEKS 500-10,000 4-5 WEEKS 1,000-50,000 5-6 WEEKS 10,000-100,000 6-8 WEEKS 15,000-200,000 8-12 WEEKS 10,000-100,000 Performed By: #### 1 6725089, 4470558, 6279622, 1787455, 2340299, 8481093, 29877795, 2427476 #### [facility] Laboratory [address] [place] [address] Progesteroneon 11-23-2019 Progesterone [Mass/Vol] 0.40 ng/mL [facility] Comment on above: Result Comment: REFE RENCE RANGE Males 0.14-2.06 ng/mL Non- Females Follicular 0.10-0.60 ng/mL Luteal 3.00-17.5 ng/mL Midluteal 3.30-18.6 ng/mL Post-Menopausal 0.10-0.40 ng/mL First Trimester 8.30-66.5 ng/mL Second Trimester 18.9-66.1 ng/mL Third Trimester 35.8-312.4 ng/mL Performed By: #### 1 8528981, 5341858, 6747732, 1571122, 5410661, 5508017, 85356404, 4267736 #### [facility] Laboratory [address] [place] [address] TSHon 11-23-2019 TSH Qn 0.76 mcIU/mL Normal 0.34-5.60 [facility] Comment on above: Performed By: #### 1 7531214, 6361035, 2894953, 3967569, 2771053, 5893116, 30572185, 6963876 #### [facility] Laboratory [address] [place] [address] US Pelvis Non-OB Completeon 11-23-2019 US Pelvis [...] Performed Transvaginal Ultrasound Performed Normal [facility] US Transvaginal Non-OBon US Transvaginal Non-OB Exam Date/Time: 11/23/2019 07:40 EST Reason for Exam: OVARIAN DYSFUNCTION Report PLEASE REFER TO THE ULTRASOUND PELVIS NON-OB COMPLETE REPORT. FINAL REPORT Dictated: 11/23/2019 9:26 am Go Kaplan M.D. Signed (Electronic Signature): 11/23/2019 9:26 am Signed by: Go Kaplan M.D. Transcribed by: MADISON Technologist: JESSICA [facility] Coding Summary.on 10-24-2019 Coding Summary. CODING DATE: 020 FINAL [facility] STATUS: Home (Routine DC) PAYOR: Leela APC DESCRIPTION 5414 Level 4 Gynecologic Procedures ADMIT DX: REASON FOR VISIT DX: O02.1 Missed FINAL DX: PRINCIPAL: O02.1 Missed SECONDARY: I10 Essential (primary) hypertension E03.9 Hypothyroidism, unspecified PYMT PROC APC STAT DESCRIPTION DOCTOR NAME DATE 94407 5414 J1 Treatment of missed Davie Grijalva MD 10/20/2019 , completed surgically; first trimester 26951 Anesthesia for Davie Eaton Jr, DO 10/20/2019 incomplete or missed procedures NOTE: The code number assigned matches the documented diagnosis and / or procedure in the patient's chart. However, the narrative phrase printed from the coding software may appear abbreviated, or result in slightly different terminology. Revised Coded By: Althea Ortega Revised Date Saved: 10/24/2019 02:47 pm [facility] Main OR Intraoperative Recor don 10-23-2019 Main OR Intraoperative Record IntraOp Document Type FT Summary Primary Physician: Davie Grijalva MD Finalized Date/Time: 10/23/19 11:48:56 Pt. Name: SUKHDEV SCHWARTZ/Sex: 1985 Female Med Rec #: [id number] Physician: Davie Grijalva MD Financial #: [id number] Pt. Type: A Room/Bed: Admit/Disch: 10/20/19 12:59:16 - 10/20/19 16:25:00 Institution: Case Times FT Entry 1 Patient Times In Room 10/20/19 14:00:00 Out Room 10/20/19 14:34:00 Procedure Times Start 10/20/19 14:19:00 Stop 10/20/19 14:25:00 Anesthesia Times Start 10/20/19 14:00:00 Stop 10/20/19 14:34:00 Last Modified By: Nona Cuellar RN 10/20/19 14:34:06 General Comments: 10/23/2019 Chart opened to review and send charges Hilda Stein SPECIAL EDUCATION RESOURCE ROOM TEACHER Case Attendance FT Entry 1 Entry 2 Entry 3 Case Attendee Carlito OVALLES, Geri Grijalva MD, Davie Castelan RN, Rena Role Performed Anesthesiologist Surgeon - Primary Hall Clerk - Primary Child Caregiver Time In 10/20/19 14:00:00 10/20/19 14:16:00 10/20/19 14:00:00 Time Out 10/20/19 14:34:00 10/20/19 14:26:00 10/20/19 14:34:00 Procedure DILATATION and SUCTION DILATATION and SUCTION DILATATION and SUCTION CURETTAGE(.) CURETTAGE(.) CURETTAGE(.) Comments DR EATON SUPERVISING Last Modified By: Polo RN, Nona Cuellar RN, Nona Contreras RN 10/20/19 14:35:30 10/20/19 14:35:30 10/20/19 14:35:30 Entry 4 Entry 5 Case Attendee Polo GOODRICH, Nona Crook SPECIAL EDUCATION RESOURCE ROOM TEACHER, Móinca Role Performed Hall Clerk - Primary Scrub - Primary Time In [...] and tissue Entry 1 Skin Integrity Intact, [place], Warm, and Skin Abnormality No Dry Outcomes [...] Cuellar RN, Hord RN, Abby, Costello Crook SPECIAL EDUCATION RESOURCE ROOM TEACHER, Mónica SPECIAL EDUCATION RESOURCE ROOM TEACHER, Mónica Outcomes Met? Yes Yes Last Modified By: TalisheekNona bishop RN, RN, Emily A 10/20/19 14:21:22 [...] RN Patient Status Stable Skin. Condition Intact, [place], Warm, and Dry Airway Maintenance Oxygen in Use? Yes Airway Device Simple Mask Flow Rate 8 L/min Outcomes Met? Yes Last Modified By: Nona Cuellar RN 10/20/19 14:35:23 Post-Care Text: The patient is free from signs and symptoms of injury related to transfer/transport General Comments: report given to ornamental iron worker apprenticeElayne mayo rn Dressing/Packing FT Pre-Care Text: Administers [...] STRAIGHT Present Upon Arrival No Inserted 16FR [[id number]][F] Insertion Date/Time 10/20/19 14:15:00 Insertion Site Uretheral [...] BLANKET MISTRAL AIR Quantity 1 Aid TORSO [[id number]][F] Fluid/[place] Mistral warming system Setting high/43 Body Site Upper anterior torso Last Modified By: Nona Cuellar RN 10/20/19 13:54:58 Case Comments Finalized By: Juanita Stein CST Document Signatures Signed By: Nona Cuellar RN 10/20/19 14:35 Juanita Stein CST 10/23/19 11:48 Normal [facility] Operative Reporton 0 Operative Report [...] Davie Grijalva MD, FACOG gls Dictated: 10/20/2019 #[id number] Typed: 10/23/2019 #[id number] cc: Davie Grijalva MD, FACOG [facility] Comment on above: Result Comment: Elec tronically Signed By: Rudi GUSTAFSON, Davie Duong\.br\Date and Time Signed: 10/23/19 08:04 EST Operative Report Date of Surgery: 10/20/2019 SURGEON: Davie Grijalva MD, FACOG PREOPERATIVE DIAGNOSIS: Inevitable miscarriage POSTOPERATIVE DIAGNOSIS: Inevitable miscarriage OPERATION: Dilation and suction curettage ANESTHESIA: General ANESTHESIOLOGIST: JSOR Grant PREOPERATIVE HISTORY: The patient is a [...] Davie Grijalva MD, FACOG cr Dictated: 10/20/2019 #[id number] Typed: 10/21/2019 #[id number] cc: Davie Grijalva MD, FACISRAEL [facility] Comment on above: Result Comment: Elec [...] All Problems Ovarian dysfunction / SNOMED CT 43737117 / Confirmed Hypothyroidism / SNOMED CT 77527404 / Confirmed Incomplete miscarriage / SNOMED CT 376870576 / Confirmed missed Pancreatitis / SNOMED CT 914039629 / Confirmed Histories Past Medical History: No active or resolved past medical history items have been selected or recorded. Family History: Diabetes mellitus type 2 Mother Thyroid cancer Mother Sister Procedure history: Cholecystectomy ([id number]) on 07/19/2019 at 33 Years. DIAGNOSTIC LAPAROSCOPY [...] results Radiology results ECG interpretation Condition Plan [place] [employer] Anesthesiologists (ASA) physical status classification: Class II. Anesthetic Preoperative Plan Anesthesia: General. . Anesthetic plan, risks, benefits, and alternatives discussed with the patient and/or family. Risks discussed: nausea, vomiting, headache, sore throat, dental injury, serious complications. Patient verbalized understanding. Communication: face to face with (patient 5 minutes, Pt educated on the importance of smoking cessation.). [facility] Comment on above: Result Comment: Elec tronically Signed By: Davie Eaton Jr, DO\doyle\Date and Time Signed: 10/23/19 07:34 EST Coding Summary.on 10-20-2019 Coding Summary. CODING DATE: 020 FINAL [facility] STATUS: Home (Routine DC) PAYOR: Commercial [...] Hill CphT Date Saved: 10/20/2019 09:01 am [facility] History and Physicalon 10-20 History and [...] Davie Grijalva MD, FACOG gls Dictated: 10/20/2019 #[id number] Typed 10/20/2019 #[id number] cc: Davie Grijalva MD, FACOG Normal [facility] Comment on above: Result Comment: Elec tronically Signed By: Rudi GUSTAFSON, Davie Duong\.br\Date and Time Signed: 10/20/19 10:15 EST Inpatient Patient Summaryon 10-20-2019 Inpatient Patient Summary [place] [id number] [facility] Clinical Discharge Instructions PERSON INFORMATION Name: SUKHDEV SCHWARTZ [facility]#:[id number] PHYSICIANS Admitting Physician: Davie Grijalva MD Attending Physician: Davie Grijalva MD PCP: LOLI MATIAS MD Discharge Diagnosis: Hypothyroidism; Incomplete miscarriage; Status post dilation and curettage Comment: PATIENT EDUCATION INFORMATION Instructions: Post Op Patient Instructions - FT (CUSTOM); OSTEOPATHIC RESIDENT - Post D&C, Hysteroscopy, LEEP or Essure/Laparoscopy (CUSTOM) Medication Leaflets: Follow up: With: Address: When: Davie Grijalva [address] [place] [address] Business (1) Comments: Call for any problems. MEDICATION LIST New Medications [facility], [address] [place], [place] [id number], [phone] ibuprofen (ibuprofen 600 mg Tab) 1 Tablets [...] times a day. Comment: Normal [facility] Main OR PACU I Recordon Main OR PACU I Record PACU Phase I Document Type FT Summary Primary Physician: Davie Grijalva MD Finalized Date/Time: 10/20/19 14:55:25 Pt. Name: SEN SCHWARTZTRUMAN Cote/Sex: 1985 Female Med Rec #: [id number] Physician: Davie Grijalva MD Financial #: [id number] Pt. Type: A Room/Bed: 05/18 Admit/Disch: 10/20/19 [...] Iverson RN 10/20/19 14:55 Normal [facility] Main OR Preoperative Recordo n 10-20-2019 Main OR Preoperative Record PreOp Document Type FT Summary Primary Physician: Davie Grijalva MD Finalized Date/Time: 10/20/19 14:24:04 Pt. Name: SUKHDEV SCHWARTZ/Sex: 1985 Female Med Rec #: [id number] Physician: Davie Grijalva MD Financial #: [id number] Pt. Type: A Room/Bed: [facility] Admit/Disch: 10/20/19 12:59:16 - Institution: Case [...] Cuellar RN 10/20/19 14:24 Normal [facility] Patient Education - Texton 0 [...] CALL FOR ANY PROBLEMS Normal [facility] Coding Summary.on 10-19-2019 Coding Summary. CODING DATE: 020 FINAL [facility] STATUS: Home (Routine DC) PAYOR: Commercial [...] Saved: 10/19/2019 12:19 pm Normal [facility] RPRon 10-19-2019 Reagin Ab RPR Ql (S) Non-Reactive Normal Non-Reactiv e [facility] Comment on above: Performed By: #### 1 3725252, 5191424, 4096220, 1663115, 2321551, 0203157, 27099593, 4301324 #### [facility] Laboratory [address] [place] [address] ABO/Rh Retypeon 10-17-2019 ABO/Rh Retype Interp Positive [facility] Comment on above: Performed By: #### 1 6829636, 7094762, 7813424, 7684306, 5008483, 6127897, 47327539, 6917159 #### [facility] Laboratory [address] [place] [address] BUNon 10-17-2019 Urea nitrogen [Mass/Vol] 12 mg/dL Normal 5-21 [facility] Comment on above: Performed By: #### 1 0839313, 7563965, 3765572, 1528005, 5120201, 1095151, 47005672, 1394064 #### [facility] Laboratory [address] [place] [address] CBC w/Indiceson 10-17-2019 Erythrocyte distribution width (RBC) [Ratio] 12.7 % Normal 10.9-14.2 [facility] Comment on above: Performed By: #### 1 3265446, 1103478, 8887802, 2424564, 9958974, 8375185, 28797740, 1501853 #### [facility] Laboratory [address] [place] [address] Hematocrit (Bld) [Volume fraction] 34.6 % Normal 34.0-46.0 [facility] Comment on above: Performed By: #### 1 7964729, 7703016, 8177215, 2228373, 1695712, 8442286, 92438371, 6174356 #### [facility] Laboratory [address] [place] [address] Hemoglobin (Bld) [Mass/Vol] 11.7 g/dL Low 12.0-16.0 [facility] Comment on above: Performed By: #### 1 7547173, 6594908, 7040276, 9679453, 5022853, 9288331, 93117574, 3673035 #### [facility] Laboratory [address] [place], [place] [address] MCH (RBC) [Entitic mass] 30.7 pg Normal 27.0-34.0 [facility] Comment on above: Performed By: #### 1 7034710, 7699010, 5865054, 4150479, 6262261, 1038317, 46303586, 5717222 #### [facility] Laboratory [address] [place] [address] MCHC (RBC) [Mass/Vol] 33.8 g/dL Normal 31.4-36.0 [facility] Comment on above: Performed By: #### 1 6961396, 5248794, 8991923, 4931616, 6579344, 9695007, 87217069, 2820357 #### [facility] Laboratory [address] [place] [address] MCV (RBC) [Entitic vol] 90.8 fL Normal 80.0-100.0 [facility] Comment on above: Performed By: #### 1 9756035, 6765014, 0872100, 9175165, 9351889, 5299070, 08711332, 7108808 #### [facility] Laboratory [address] [place] [address] Platelet mean volume (Bld) [Entitic vol] 7.5 fL Normal 6.4-10.8 [facility] Comment on above: Performed By: #### 1 5811504, 3664167, 8813077, 1565632, 1972435, 5856362, 89570662, 6463178 #### [facility] [address] [place] [address] Platelets (Bld) [#/Vol] 319.0 E9/L Normal 150.0-500.0 [facility] Comment on above: Performed By: #### 1 3188170, 2691855, 3715516, 9801612, 8204777, 6836472, 33690831, 3870511 #### [facility] Laboratory [address] [place] [address] RBC (Bld) [#/Vol] 3.8 E12/L Low 4.3-5.9 [facility] Comment on above: Performed By: #### 1 7317239, 1520169, 9820011, 4604270, 5451991, 7599137, 16825001, 5241464 #### [facility] Laboratory [address] [place] [address] WBC corrected for nucl RBC Auto (Bld) [#/Vol] 6.1 E9/L Normal 4.0-11.0 [facility] Comment on above: Performed By: #### 1 5849220, 2977352, 9373179, 8723987, 3578700, 5278684, 48815608, 2322628 #### [facility] Laboratory [address] [place] [address] Creatinineon 10-17-2019 Creatinine [Mass/Vol] 0.6 mg/dL Normal 0.5-1.3 [facility] Comment on above: Performed By: #### 1 8923721, 8531657, 8616253, 9493873, 9549168, 0050586, 53831436, 0411737 #### [facility] [address] [place] [address] Lyteson 10-17-2019 Anion gap [Moles/Vol] 12 mmol/L Normal 6-16 [facility] Comment on above: Performed By: #### 1 9814526, 2193046, 4062398, 8525480, 5875640, 2579017, 06889116, 4245211 #### [facility] [address] [place] [address] Chloride [Moles/Vol] 109 mmol/L Normal 101-111 [facility] Comment on above: Performed By: #### 1 6865178, 5812332, 2141590, 5849663, 7350275, 1576301, 94902418, 0504940 #### [facility] Laboratory [address] [place] [address] CO2 [Moles/Vol] 26 mmol/L Normal 21-31 [facility] Comment on above: Performed By: #### 1 8784860, 7221068, 6169466, 3651625, 9788804, 0321059, 26967485, 7291102 #### [facility] Laboratory [address] [place] [address] Potassium [Moles/Vol] 4.3 mmol/L Normal 3.5-5.3 [facility] Comment on above: Performed By: #### 1 4778053, 7031550, 7110941, 6260680, 0788636, 6028283, 79600810, 3061354 #### [facility] [address] [place] [address] Sodium [Moles/Vol] 143 mmol/L Normal 135-145 [facility] Comment on above: Performed By: #### 1 7139856, 6816390, 4886724, 4064654, 9855500, 9612583, 08612176, 2828398 #### [facility] [address] [place] [address] PT & PTTon 10-17-2019 aPTT Coag (PPP) [Time] 29.9 second(s) Normal 25.1-36.5 [facility] Comment on above: Result Comment: Hepa rin therapeutic range (represented by Anti-Factor Xa activity of 0.2 - 0.4 U/mL) corresponds to PTT of 56.6 - 109.0 sec. Performed By: #### 1 0729237, 3104864, 0115588, 9786678, 4462064, 7385499, 03600429, 8015076 #### [facility] [address] [place] [address] INR Coag (PPP) [Relative time] 1.0 {INR} [facility] Comment on above: Result Comment: INR results are specifically intended to assess patients stabilized on long-term Anticoagulation therapy suggested INR?s ?Less Intensive Anticoagulation? 2.0 ? 3.0 Conventional Range 3.0 ? 4.5 Performed By: #### 1 8310313, 6212135, 2061387, 9954529, 3506058, 9198180, 69750260, 2179046 #### [facility] [address] [place] [address] PT Coag (PPP) [Time] 11.0 second(s) Normal 10.2-12.9 [facility] Comment on above: Performed By: #### 1 6859473, 9118910, 4026209, 7805788, 7091684, 7884425, 47133714, 3479963 #### [facility] [address] [place] [address] eGFRon 10-17-2019 GFR/1.73 sq M predicted among blacks MDRD (S/P/Bld) [Vol rate/Area] mL/min/{1.73_m2} Normal >=59 [facility] Comment on above: Order Comment: Order added by Discern Expert. Result Comment: eGFR is race adjusted. AA=. Performed By: #### 1 7965157, 7076434, 7070937, 7747277, 6877575, 1513937, 79366706, 4794947 #### [facility] Laboratory [address] [place] [address] GFR/1.73 sq M predicted among non-blacks MDRD (S/P/Bld) [Vol rate/Area] mL/min/{1.73_m2} Normal >=59 [facility] Comment on above: Order Comment: Order added by Discern Expert. Result Comment: Patient Sitter ivan kidney disease could be indicated at eGFR's of less than 60 mL/min/1.73m2. Kidney failure is indicated at less than 15 mL/min/1.73m2. Performed By: #### 1 0784529, 4759721, 2324147, 4725063, 6393620, 4156646, 79323345, 4684836 #### [facility] [address] [place] [address] Coding Summary.on 10-12-2019 Coding Summary. CODING DATE: 019 FINAL [facility] STATUS: Home (Routine DC) PAYOR: Commercial [...] Saved: 10/12/2019 12:46 pm Normal [facility] BhCG Quanton 10-09-2019 HCG.beta subunit Qn 1862 m[IU]/mL High 1-3 [facility] Comment on above: Result Comment: GEST ATIONAL AGE HCG RANGE (mIU/mL) NON- <1-3 0.2-1 WEEKS 5-50 1-2 WEEKS 50-500 2-3 WEEKS 100-5,000 3-4 WEEKS 500-10,000 4-5 WEEKS 1,000-50,000 5-6 WEEKS 10,000-100,000 6-8 WEEKS 15,000-200,000 8-12 WEEKS 10,000-100,000 Performed By: #### 1 6264411, 3383408, 6810218, 2865677, 4460132, 3437867, 76928356, 7242251 #### [facility] [address] [place] [address] Coding Summary.on 10-06-2019 Coding Summary. CODING DATE: 019 FINAL [facility] DSC STATUS: Home (Routine DC) [...] Saved: 10/06/2019 12:45 pm Normal [facility] US 1st Trimesteron 10-06-2019 US [...] Dates Uterus Position Anteverted Normal [facility] US Transvaginalon 10-06-2019 US Transvaginal Exam Date/Time: 10/05/2019 13:36 EST Reason for Exam: possible ectopic Report PLEASE REFER TO THE ULTRASOUND FIRST TRIMESTER REPORT. FINAL REPORT Dictated: 10/06/2019 10:35 am Go Kaplan M.D. Signed (Electronic Signature): 10/06/2019 10:35 am Signed by: Go Kaplan M.D. Transcribed by: MADISON Technologist: COREY Normal [facility] BhCG Quanton 10-05-2019 HCG.beta subunit Qn 1726 m[IU]/mL High 1-3 [facility] Comment on above: Result Comment: GEST ATIONAL AGE HCG RANGE (mIU/mL) NON- <1-3 0.2-1 WEEKS 5-50 1-2 WEEKS 50-500 2-3 WEEKS 100-5,000 3-4 WEEKS 500-10,000 4-5 WEEKS 1,000-50,000 5-6 WEEKS 10,000-100,000 6-8 WEEKS 15,000-200,000 8-12 WEEKS 10,000-100,000 Performed By: #### 2 697631 ####[facility] [address] [place] [address] Coding Summary.on 10-04-2019 Coding Summary. CODING DATE: 019 [facility] STATUS: Home (Routine DC) PAYOR: [...] Saved: 10/04/2019 02:19 pm Normal [facility] Estradiolon 10-04-2019 E2 [Mass/Vol] 189.4 pg/mL [facility] Comment on above: Result Comment: Adul t Female: Follicular phase 12.5 - 166.0 Ovulation phase 85.8 - 498.0 Luteal phase 43.8 - 211.0 Postmenopausal <6.0 - 54.7 1st trimester 215.0 - >4300.0 Girls (1-10 years) 6.0 - 27.0 Mal ECLIA methodology Performed at: [facility] [id number] PhD Subhash Coronel Performed By: #### 2 871524, 4868661, 46209157, 6803766 ####[facility] [id number] [place] [address] FSH and LHon 10-04-2019 Follitropin Qn 4.6 m[IU]/mL [facility] Comment on above: Result Comment: [facility] terell Female: Follicular phase 3.5 - 12.5 Ovulation phase 4.7 - 21.5 Luteal phase 1.7 - 7.7 Postmenopausal 25.8 - 134.8 Performed at: [facility] [id number] PhD Subhash Coronel Performed By: #### 2 992596, 5177529, 42440707, 0028730 ####[facility] [address] [place] [address] Lutropin Qn 10.0 m[IU]/mL [facility] Comment on above: Result Comment: [facility] terell Female: Follicular phase 2.4 - 12.6 Ovulation phase 14.0 - 95.6 Luteal phase 1.0 - 11.4 Postmenopausal 7.7 - 58.5 Performed By: #### 2 524536, 7995400, 91654553, 4665937 ####[facility] [address] [place] [address] BhCG Quanton 10-03-2019 HCG.beta subunit Qn 1625 m[IU]/mL High 1-3 [facility] Comment on above: Result Comment: GEST ATIONAL AGE HCG RANGE (mIU/mL) NON- <1-3 0.2-1 WEEKS 5-50 1-2 WEEKS 50-500 2-3 WEEKS 100-5,000 3-4 WEEKS 500-10,000 4-5 WEEKS 1,000-50,000 5-6 WEEKS 10,000-100,000 6-8 WEEKS 15,000-200,000 8-12 WEEKS 10,000-100,000 Performed By: #### 2 [id number] ####[facility] [address] [place] [address] Progesteroneon 10-03-2019 Progesterone [Mass/Vol] 7.80 ng/mL [facility] Comment on above: Result Comment: REFE RENCE RANGE Males 0.14-2.06 ng/mL Non- Females Follicular 0.10-0.60 ng/mL Luteal 3.00-17.5 ng/mL Midluteal 3.30-18.6 ng/mL Post-Menopausal 0.10-0.40 ng/mL First Trimester 8.30-66.5 ng/mL Second Trimester 18.9-66.1 ng/mL Third Trimester 35.8-312.4 ng/mL Performed By: #### 2 080959, 9598148, 20423395, 3238349 ####[facility] [address] [place] [address] TSHon 10-03-2019 TSH Qn 0.84 mcIU/mL Normal 0.34-5.60 [facility] Comment on above: Performed By: #### 2 500646, 6715315, 39266308, 3215043 ####[facility] [address] [place] [address] Coding Summary.on 09-28-2019 Coding Summary. CODING DATE: 019 [facility] STATUS: Home (Routine DC) PAYOR: [...] Saved: 09/28/2019 01:08 pm Normal [facility] BhCG Quanton 09-27-2019 HCG.beta subunit Qn 579 m[IU]/mL High 1-3 [facility] Comment on above: Result Comment: GEST ATIONAL AGE HCG RANGE (mIU/mL) NON- <1-3 0.2-1 WEEKS 5-50 1-2 WEEKS 50-500 2-3 WEEKS 100-5,000 3-4 WEEKS 500-10,000 4-5 WEEKS 1,000-50,000 5-6 WEEKS 10,000-100,000 6-8 WEEKS 15,000-200,000 8-12 WEEKS 10,000-100,000 Performed By: #### 2 [id number] ####[facility] [address] [place] [address] External Lab Vitamin B6on Vitamin B6 4.4 [facility] Vitamin Aon 09-20-[address] [facility] Vitamin B1on 09-20-2019 Thiamine (Vitamin B1) 116.7 [facility] Zincon 09-20-[address] [facility] Coding Summary.on 09-18-2019 Coding Summary. CODING DATE: 019 [facility] STATUS: Home (Routine DC) PAYOR: [...] Saved: 09/18/2019 01:21 pm Normal [facility] EXT LAB FERRITINon 9 Ferritin [Mass/Vol] 55 ng/mL [facility] ealth External Lab Ironon 09-18-20 19 Iron [Mass/Vol] 89 ug/dL mcg/mL [facility] h External Lab Vitamin D, 25-O Hon 09-18-2019 Vitamin D, 25-OH 43.9 [facility] External Vitamin B12 and Fol ateon 09-18-2019 Cobalamin (Vitamin B12) [Mass/Vol] 291 pg/mL [facility] Folate 22.3 ng/mL Off scale high [facility] Interpretation and review of laboratory results Abnormal [facility] Vit Aon 09-18-2019 Retinol [Mass/Vol] 75.2 microgram/dL High 18.9-57.3 [facility] Comment on above: Result Comment: [...] the Food and Drug Administration. Performed at: [address] [id number] MD Keegan Limon Performed By: #### 2 088767, 1635659, 4533314, 7353238, [id number], 09595668, 82527438, 34914301, 96455432 ####[facility] [address] [place] [address] Vit B1on 09-18-2019 Thiamine (Bld) [Moles/Vol] 116.7 nmol/L 66.5-200.0 [facility] Comment on above: Result Comment: This test was developed and its performance characteristics determined by [facility]. It has not been cleared or approved by the Food and Drug Administration. Performed at: [address] [id number] MD Keegan Limon Performed By: #### 2 030106, 1709563, 5721140, 9561424, [id number], 31994725, 43362556, 71314891, 94465899 ####[facility] [address] [place] [address] Vitamin B6on 09-18-2019 Pyridoxine [Mass/Vol] 4.4 microgram/L 2.0-32.8 [facility] Comment on above: Result Comment: This test was developed and its performance characteristics determined by [facility]. It has not been cleared or approved by the Food and Drug Administration. Performed at: [address] [id number] MD Keegan Limon Performed By: #### 2 621188, 8964897, 4517340, 3278496, 856494036, 77132491, 97243393, 52715802, 19066547 ####[facility] [address] [place] [address] Zinc Lvlon 09-18-2019 Zinc [Mass/Vol] 97 microgram/dL 56-134 [facility] Comment on above: Result Comment: This test was developed and its performance characteristics determined by [facility]. It has not been cleared or approved by the Food and Drug Administration. Detection Limit = 5 Performed at: [facility] [id number] MD Keegan Limon Performed By: #### 2 913502, 7928750, 5439418, 2803827, 006839694, 07337999, 01842555, 09473129, 01144237 ####[facility] [address] [place] [address] Coding Summary.on 09-15-2019 Coding Summary. CODING DATE: 019 FINAL [facility] STATUS: Home (Routine DC) PAYOR: Commercial [...] Saved: 09/15/2019 02:01 pm Normal [facility] Estradiolon 09-14-2019 E2 [Mass/Vol] 929.6 pg/mL [facility] Comment on above: Result Comment: Adul t Female: Follicular phase 12.5 - 166.0 Ovulation phase 85.8 - 498.0 Luteal phase 43.8 - 211.0 Postmenopausal <6.0 - 54.7 1st trimester 215.0 - >4300.0 Girls (1-10 years) 6.0 - 27.0 Mal ECLIA methodology Performed at: [facility] [id number] PhD Subhash Coronel Performed By: #### 2 967115, 3048745 ####[facility] [address] [place] [address] BhCG Quanton 09-13-2019 HCG.beta subunit Qn 132 m[IU]/mL High 1-3 [facility] Comment on above: Result Comment: GEST ATIONAL AGE HCG RANGE (mIU/mL) NON- <1-3 0.2-1 WEEKS 5-50 1-2 WEEKS 50-500 2-3 WEEKS 100-5,000 3-4 WEEKS 500-10,000 4-5 WEEKS 1,000-50,000 5-6 WEEKS 10,000-100,000 6-8 WEEKS 15,000-200,000 8-12 WEEKS 10,000-100,000 Performed By: #### 1 8500934, 2184311, 8308005, 0764552, 9183051, 7403706, 94453899, 9007846 #### [facility] Laboratory [address] [place] [address] Ferritinon 09-13-2019 Ferritin [Mass/Vol] 55 ng/mL Normal 11-307 [facility] Comment on above: Result Comment: NORM ALS MEN <30 YRS 16-132 ng/mL MEN >30 YRS 8-338 ng/mL WOMEN (PREMEN) 6-104 ng/mL WOMEN (POSTMEN) 12-210 ng/mL Performed By: #### 1 0870953, 1880798, 8875665, 6388694, 6608871, 7617984, 42257276, 8952466 #### [facility] Laboratory [address] [place] [address] Folateon 09-13-2019 Folate [Mass/Vol] ng/mL Normal >=6.7 [facility] Comment on above: Performed By: #### 1 6765749, 0069177, 9281550, 5223407, 0801686, 5522186, 00947178, 2884615 #### [facility] Laboratory [address] [place] [address] Ironon 09-13-2019 Iron [Mass/Vol] 89 microgram/dL Normal 35-153 [facility] Comment on above: Performed By: #### 1 7048775, 9003982, 4128883, 1129336, 0429209, 9518532, 78877386, 3988993 #### [facility] [address] [place] [address] Progesteroneon 09-13-2019 Progesterone [Mass/Vol] 29.00 ng/mL [facility] Comment on above: Result Comment: REFE RENCE RANGE Males 0.14-2.06 ng/mL Non- Females Follicular 0.10-0.60 ng/mL Luteal 3.00-17.5 ng/mL Midluteal 3.30-18.6 ng/mL Post-Menopausal 0.10-0.40 ng/mL First Trimester 8.30-66.5 ng/mL Second Trimester 18.9-66.1 ng/mL Third Trimester 35.8-312.4 ng/mL Performed By: #### 2 795711, 5505139 ####[facility] [address] [place] [address] Vit B12on 09-13-2019 Cobalamin (Vitamin B12) [Mass/Vol] 291 pg/mL Normal 50-1500 [facility] Comment on above: Performed By: #### 2 869440, 1532173, 9827840, 3944536, 119200357, 92013626, 40941155, 88392270, 11350975 ####[facility] [address] [place] [address] Vitamin D 25 Hydroxyon 09-13 Calcidiol [Mass/Vol] 43.9 ng/mL Normal 30.0-100.0 [facility] Comment on above: Result Comment: Vit hutchinson D deficiency has been defined as a level of serum 25-OH vitamin D less than 20 ng/mL (1,2) by the [place] [employer] and an Endocrine Society practice guideline. The Endocrine Society further defined vitamin D insufficiency as a level between 21 and 29 ng/mL (2). 1. IOM ([place] [employer]). 2010. Dietary reference intakes for calcium and D. [place]: The National Academies Press. 2. Isaías MF, Renay NC, Foreign HUERTA, et al. Evaluation, treatment, and prevention of vitamin D deficiency: an Endocrine Society clinical practice guideline. JCEM. 2010; 96 (7):1911-30. Performed By: #### 2 004771, 8112771, 3508724, 1155769, 956953863, 96055641, 71475708, 92021289, 32376436 ####[facility] [address] [place] [address] Coding Summary.on 09-12-2019 Coding Summary. CODING DATE: 019 [facility] STATUS: Home (Routine DC) PAYOR: [...] Saved: 09/12/2019 07:36 am Normal [facility] Estradiolon 09-12-2019 E2 [Mass/Vol] 1006.0 pg/mL [facility] Comment on above: Result Comment: Adul t Female: Follicular phase 12.5 - 166.0 Ovulation phase 85.8 - 498.0 Luteal phase 43.8 - 211.0 Postmenopausal <6.0 - 54.7 1st trimester 215.0 - >4300.0 Girls (1-10 years) 6.0 - 27.0 Mal ECLIA methodology Performed at: [facility] [address] [id number] PhD Subhash Coronel Performed By: #### 1 2754834, 9130666, 3507218, 3138653, 9508280, 8710598, 71479067, 5796693 #### [facility] [address] [place] [address] [facility] Quanton 09-11-2019 HCG.beta subunit Qn 121 m[IU]/mL High 1-3 [facility] Comment on above: Result Comment: GEST ATIONAL AGE HCG RANGE (mIU/mL) NON- <1-3 0.2-1 WEEKS 5-50 1-2 WEEKS 50-500 2-3 WEEKS 100-5,000 3-4 WEEKS 500-10,000 4-5 WEEKS 1,000-50,000 5-6 WEEKS 10,000-100,000 6-8 WEEKS 15,000-200,000 8-12 WEEKS 10,000-100,000 Performed By: #### 1 5866108, 0732800, 0521196, 8364897, 6858224, 7290594, 01532096, 5755255 #### [facility] [address] [place] [address] Progesteroneon 09-11-2019 Progesterone [Mass/Vol] 26.60 ng/mL [facility] Comment on above: Result Comment: REFE RENCE RANGE Males 0.14-2.06 ng/mL Non- Females Follicular 0.10-0.60 ng/mL Luteal 3.00-17.5 ng/mL Midluteal 3.30-18.6 ng/mL Post-Menopausal 0.10-0.40 ng/mL First Trimester 8.30-66.5 ng/mL Second Trimester 18.9-66.1 ng/mL Third Trimester 35.8-312.4 ng/mL Performed By: #### 1 4726079, 8789979, 0366827, 8762705, 3486419, 3565153, 45023664, 6294469 #### [facility] [address] [place] [address] TSHon 09-11-2019 TSH Qn 0.88 mcIU/mL Normal 0.34-5.60 [facility] Comment on above: Performed By: #### 1 9382095, 8028772, 2935786, 0516418, 2585495, 2494832, 24419854, 3884100 #### [facility] [address] [place] [address] Coding Summary.on 09-10-2019 Coding Summary. CODING DATE: 019 FINAL [facility] STATUS: Home (Routine DC) PAYOR: Commercial [...] Saved: 09/10/2019 02:11 pm Normal [facility] Lipase Levelon 09-08-2019 Lipase [Catalytic activity/Vol] U/L High 13-58 [facility] Comment on above: Result Comment: conf irmed by dilution Performed By: #### 1 1004604, 7256114, 0538718, 4073641, 0734936, 8932343, 99596297, 9937909 #### [facility] [address] [place] [address] BhCG Quanton 09-07-2019 HCG.beta subunit Qn 90 m[IU]/mL High 1-3 [facility] Comment on above: Result Comment: GEST ATIONAL AGE HCG RANGE (mIU/mL) NON- <1-3 0.2-1 WEEKS 5-50 1-2 WEEKS 50-500 2-3 WEEKS 100-5,000 3-4 WEEKS 500-10,000 4-5 WEEKS 1,000-50,000 5-6 WEEKS 10,000-100,000 6-8 WEEKS 15,000-200,000 8-12 WEEKS 10,000-100,000 Performed By: #### 1 3778505, 8882461, 0664047, 7180719, 8120636, 9226948, 71958589, 0065957 #### [facility] [address] [place] [address] Progesteroneon 09-07-2019 Progesterone [Mass/Vol] 23.40 ng/mL [facility] Comment on above: Result Comment: REFE RENCE RANGE Males 0.14-2.06 ng/mL Non- Females Follicular 0.10-0.60 ng/mL Luteal 3.00-17.5 ng/mL Midluteal 3.30-18.6 ng/mL Post-Menopausal 0.10-0.40 ng/mL First Trimester 8.30-66.5 ng/mL Second Trimester 18.9-66.1 ng/mL Third Trimester 35.8-312.4 ng/mL Performed By: #### 1 2390621, 9876559, 4657041, 5477283, 1045746, 0571944, 06678527, 4189437 #### [facility] [address] [place] [address] Coding Summary.on 09-05-2019 Coding Summary. CODING DATE: 019 [facility] STATUS: Home (Routine DC) PAYOR: [...] Saved: 09/05/2019 01:07 pm Normal [facility] Estradiolon 09-05-2019 E2 [Mass/Vol] 799.5 pg/mL [facility] Comment on above: Result Comment: Adul t Female: Follicular phase 12.5 - 166.0 Ovulation phase 85.8 - 498.0 Luteal phase 43.8 - 211.0 Postmenopausal <6.0 - 54.7 1st trimester 215.0 - >4300.0 Girls (1-10 years) 6.0 - 27.0 Mal ECLIA methodology Performed at: [facility] [id number] PhD Subhash Coronel Performed By: #### 1 0033586, 6883951, 7944601, 4928296, 6161431, 6181585, 89229795, 5604648 #### [facility] [address] [place] [address] Progesteroneon 09-04-2019 Progesterone [Mass/Vol] 39.30 ng/mL [facility] Comment on above: Result Comment: REFE RENCE RANGE Males 0.14-2.06 ng/mL Non- Females Follicular 0.10-0.60 ng/mL Luteal 3.00-17.5 ng/mL Midluteal 3.30-18.6 ng/mL Post-Menopausal 0.10-0.40 ng/mL First Trimester 8.30-66.5 ng/mL Second Trimester 18.9-66.1 ng/mL Third Trimester 35.8-312.4 ng/mL Performed By: #### 1 5117648, 9416708, 5440253, 2310247, 4533289, 7677943, 90825051, 5984277 #### [facility] [address] [place] [address] TSHon 09-04-2019 TSH Qn 0.83 mcIU/mL Normal 0.34-5.60 [facility] Comment on above: Performed By: #### 1 1430775, 9282314, 1988424, 9484711, 5248088, 4003441, 48508599, 6212697 #### [facility] [address] [place] [address] Coding Summary.on 08-23-2019 Coding Summary. CODING DATE: 019 FINAL [facility] STATUS: Home (Routine DC) PAYOR: Commercial [...] Saved: 08/23/2019 01:15 pm Normal [facility] Estradiolon 08-23-2019 E2 [Mass/Vol] 903.5 pg/mL [facility] Comment on above: Result Comment: Adul t Female: Follicular phase 12.5 - 166.0 Ovulation phase 85.8 - 498.0 Luteal phase 43.8 - 211.0 Postmenopausal <6.0 - 54.7 1st trimester 215.0 - >4300.0 Girls (1-10 years) 6.0 - 27.0 Mal ECLIA methodology Performed at: [facility] [id number] PhD Subhash Coronel Performed By: #### 1 8806401, 4530871, 4600363, 7489787, 7515754, 9525699, 52345486, 2011112 #### [facility] [address] [place] [address] LHon 08-23-2019 Lutropin Qn 7.7 m[IU]/mL [facility] Comment on above: Result Comment: Adul t Female: Follicular phase 2.4 - 12.6 Ovulation phase 14.0 - 95.6 Luteal phase 1.0 - 11.4 Postmenopausal 7.7 - 58.5 Performed at: [facility] [id number] PhD Subhash Coronel Performed By: #### 1 6567096, 0131614, 4467875, 6502787, 7766825, 9889528, 38136626, 1997722 #### [facility] [address] [place] [address] Progesteroneon 08-22-2019 Progesterone [Mass/Vol] ng/mL [facility] Comment on above: Result Comment: REFE RENCE RANGE Males 0.14-2.06 ng/mL Non- Females Follicular 0.10-0.60 ng/mL Luteal 3.00-17.5 ng/mL Midluteal 3.30-18.6 ng/mL Post-Menopausal 0.10-0.40 ng/mL First Trimester 8.30-66.5 ng/mL Second Trimester 18.9-66.1 ng/mL Third Trimester 35.8-312.4 ng/mL Performed By: #### 1 9671126, 9411191, 4740271, 5147382, 3381769, 5651226, 98506199, 4267061 #### [facility] [address] [place] [address] Coding Summary.on 08-16-2019 Coding Summary. CODING DATE: 019 FINAL [facility] STATUS: Home (Routine DC) PAYOR: Commercial [...] Saved: 08/16/2019 02:00 pm Normal [facility] Estradiolon 08-16-2019 E2 [Mass/Vol] 52.3 pg/mL [facility] Comment on above: Result Comment: Adul t Female: Follicular phase 12.5 - 166.0 Ovulation phase 85.8 - 498.0 Luteal phase 43.8 - 211.0 Postmenopausal <6.0 - 54.7 1st trimester 215.0 - >4300.0 Girls (1-10 years) 6.0 - 27.0 Mal ECLIA methodology Performed at: [address] [id number] PhD Subhash Coronel Performed By: #### 1 3601938, 8704412, 6743369, 5222993, 5841374, 3427516, 35591674, 2397362 #### [facility] [address] [place] [address] FSH and LHon 08-16-2019 Follitropin Qn 7.9 m[IU]/mL [facility] Comment on above: Result Comment: [facility] t Female: Follicular phase 3.5 - 12.5 Ovulation phase 4.7 - 21.5 Luteal phase 1.7 - 7.7 Postmenopausal 25.8 - 134.8 Performed at: [address] [id number] PhD Subhash Coronel Performed By: #### 1 5958628, 2825775, 0054628, 9223442, 4332378, 8110978, 74410606, 1086017 #### [facility] [address] [place] [address] Lutropin Qn 9.8 m[IU]/mL [facility] Comment on above: Result Comment: [facility] t Female: Follicular phase 2.4 - 12.6 Ovulation phase 14.0 - 95.6 Luteal phase 1.0 - 11.4 Postmenopausal 7.7 - 58.5 Performed By: #### 1 2257173, 1980301, 6491993, 5676444, 9866933, 5678519, 69258631, 8879322 #### [facility] [address] [place] [address] BhCG Quanton 08-15-2019 HCG.beta subunit Qn m[IU]/mL Normal 1-3 [facility] Comment on above: Result Comment: GEST ATIONAL AGE HCG RANGE (mIU/mL) NON- <1-3 0.2-1 WEEKS 5-50 1-2 WEEKS 50-500 2-3 WEEKS 100-5,000 3-4 WEEKS 500-10,000 4-5 WEEKS 1,000-50,000 5-6 WEEKS 10,000-100,000 6-8 WEEKS 15,000-200,000 8-12 WEEKS 10,000-100,000 Performed By: #### 1 7101938, 4899776, 4882195, 2082604, 9549823, 5850778, 71430114, 8478140 #### [facility] [address] [place] [address] Progesteroneon 08-15-2019 Progesterone [Mass/Vol] 0.20 ng/mL [facility] Comment on above: Result Comment: REFE RENCE RANGE Males 0.14-2.06 ng/mL Non- Females Follicular 0.10-0.60 ng/mL Luteal 3.00-17.5 ng/mL Midluteal 3.30-18.6 ng/mL Post-Menopausal 0.10-0.40 ng/mL First Trimester 8.30-66.5 ng/mL Second Trimester 18.9-66.1 ng/mL Third Trimester 35.8-312.4 ng/mL Performed By: #### 1 9309874, 8411076, 4618192, 4399739, 8705413, 0004324, 96756959, 1251840 #### [facility] [address] [place] [address] TSHon 08-15-2019 TSH Qn 1.05 mcIU/mL Normal 0.34-5.60 [facility] Comment on above: Performed By: #### 1 7378507, 5200101, 6447633, 4229492, 9539005, 8267091, 28850057, 9692526 #### [facility] Laboratory [address] [place] [address] Coding Summary.on 07-31-2019 Coding Summary. CODING DATE: 019 FINAL [facility] STATUS: Home (Routine DC) PAYOR: Commercial Insurance ADMIT DX: REASON FOR VISIT DX: K85.10 Biliary acute pancreatitis without necrosis or infection FINAL DX: PRINCIPAL: K85.10 Biliary acute pancreatitis without necrosis or infection SECONDARY: Z98.890 Other specified postprocedural states Z79.899 Other fci (current) drug therapy PROCEDURES DOCTOR NAME DATE NOTE: The code number assigned matches the documented diagnosis and / or procedure in the patient's chart. However, the narrative phrase printed from the coding software may appear abbreviated, or result in slightly different terminology. Coded By: Teri Hill CphT Date Saved: 07/31/2019 10:30 am Normal [facility] ED Note-Physicianon 07-28-20 ED Note-Physician Basic Information Time Seen: Oswaldo Fischer PA-C 07/17/2019 21:52 Chief Complaint pt has complaints of abdominal pain nausea and vomiting since 2am, states lab work done at [place] today liver enzymes were elevated history of [...] Bergeron discussed with Dr. Goel, trauma surgeon fabrication specialist, and Dr. Alvarado, hospitalist fabrication specialist, about patient, history, labs, and imaging findings consistent acute pancreatitis and common bile duct obstruction, patient be admitted to hospitalist services, and consult with Dr. Reddy, GI doctor on-call for possible CREDIT REPORT CHECKER in the morning. Dr. Alvarado admitted patient [...] was treated and evaluated by the Physician Child Caregiver. The attending physician was Dr. Bergeron in [...] Auto: 6.4 % Low (07/17/19 22:12:00 EDT) Preston Auto: 5.5 % (07/17/19 22:12:00 EDT) Eos Auto: 0.6 % (07/17/19 22:12:00 EDT) Basophil Auto: 0.3 % (07/17/19 22:12:00 EDT) Neutro Absolute: 11.3 E9/L High (07/17/19 22:12:00 EDT) Lymph Absolute: 0.8 E9/L Low (07/17/19 22:12:00 EDT) Preston Absolute: 0.7 E9/L (07/17/19 22:12:00 EDT) Eos [...] No qualifying data available. Normal [facility] Comment on above: Result Comment: Elec tronically Signed By: Oswaldo Fischer PA-C\.br\Date and Time Signed: 07/18/19 01:07 EDT\.br\Electronically Co-Signed By: Mehran Bergeron MD\.br\Date and Time Co-Signed: 07/28/19 08:12 EDT Progress Note-Physicianon Progress Note-Physician Chief Complaint Follow up from OR History of Present Illness SUKHDEV SCHWARTZ is a 33 Years Female who presented to [facility] on 07/18/2019 with gallstone pancreatitis. She underwent uneventful lap aidee with my partner, Dr. 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 Still waiting for [facility] paperwork which she'll fax to [...] a 33 Years Female who presented to [facility] on 07/18/2019 with gallstone pancreatitis and is now POD#9 s/p lap aidee. She is recovering well. She can keep covering the periumbilical incision with Bandaid until it heals. I reviewed path report with her. She can follow-up with us PRN. We will fill out [facility] paperwork for her when we [...] NODE WITH FOLLICULAR HYPERPLASIA. Normal [facility] Comment on above: Result Comment: Elec tronically Signed By: Garrett GUSTAFSON, Marina Fields\.br\Date and Time Signed: 07/28/19 09:13 EDT Coding Summary.on 07-24-2019 Coding Summary. CODING DATE: 019 FINAL [facility] STATUS: Home (Routine DC) PAYOR: Commercial Insurance Grouper: 419 MS-DRG Laparoscopic cholecystectomy w/o c.d.e. w/o CC/USP Low Trim 0 High Trim 999 263 [...] (BMI) 34.0-34.9, adult PROCEDURES DOCTOR NAME DATE [id number] Resection of Gallbladder, Amando GUSTAFSON, Javan Stevens 07/19/2019 Percutaneous Endoscopic Approach [id number] Extirpation of Matter from Abhinav REDDY MD 07/18/2019 Common Bile Duct, Via Natural or Artificial Opening Endoscopic [id number] Fluoroscopy of Bile Ducts using Abhinav REDDY MD 07/18/2019 Low Osmolar Contrast NOTE: The code number assigned matches the documented diagnosis and / or procedure in the patient's chart. However, the narrative phrase printed from the coding software may appear abbreviated, or result in slightly different terminology. Revised Coded By: Kat Del Rosario Revised Date Saved: 07/24/2019 07:27 am Normal [facility] Progress Note-Physicianon Progress Note-Physician Patient: [...] All Problems Ovarian dysfunction / SNOMED CT [id number] / Confirmed Hypothyroidism / SNOMED CT 43918939 / Confirmed Pancreatitis / SNOMED CT 737509889 / Confirmed Histories Past Medical History: No [...] Cardiovascular: Regular rhythm. Neurologic: Alert, Oriented. Plan [place] [employer]hesi[employer] (ASA) physical status classification: Class II. Anesthetic Preoperative Plan Anesthesia: General. . Anesthetic plan, risks, benefits, and alternatives discussed with the patient and/or family. Communication: face to face with (patient 5 minutes, Patient educated on smoking cesstation). Normal [facility] Comment on above: Result Comment: [...] then closed the umbilical fascia with multiple cufqfl-ag-doapa 0 Vicryl sutures, then tied the stay [...] Gallbladder Javan Goel MD aek Dictated: 07/19/2019 #[id number] Typed: 07/20/2019 #[id number] cc: Javan Goel MD Normal [facility] Comment on above: Result Comment: Elec tronically Signed By: Amando GUSTAFSON, Javan Stevens\.br\Date and Time Signed: 07/20/19 11:04 EDT Auto Diffon 07-19-2019 Basophils/100 WBC (Bld) 0.2 % Normal 0.0-2.0 [facility] Comment on above: Order Comment: Order Added by Discern Expert. Performed By: #### 1 6210452, 6682933, 3205932, 7205276, 6816678, 0849391, 98893707, 2754217 #### [facility] Laboratory [address] [place] [address] Basophils/Leukocyte s Auto (Bld) [Pure # fraction] 0.0 E9/L Normal 0.0-0.2 [facility] Comment on above: Order Comment: Order Added by Discern Expert. Performed By: #### 1 6114308, 4399201, 6621621, 4734483, 6980747, 0503929, 50010815, 7802188 #### [facility] Laboratory [address] [place] [address] Eosinophils/100 WBC (Bld) 1.1 % Normal 0.0-8.0 [facility] Comment on above: Order Comment: Order Added by Discern Expert. Performed By: #### 1 9191332, 2579571, 0932700, 9612794, 0480149, 7696251, 55730097, 9090909 #### [facility] Laboratory [address] [place] [address] Eosinophils/Leukocy dariel Auto (Bld) [Pure # fraction] 0.1 E9/L Normal 0.0-0.5 [facility] Comment on above: Order Comment: Order Added by Discern Expert. Performed By: #### 1 8826686, 3720870, 3729326, 9396450, 4443477, 1073953, 04393140, 8707054 #### [facility] Laboratory [address] [place] [address] Lymphocytes/100 WBC (Bld) 11.9 % Low 14.0-50.0 [facility] Comment on above: Order Comment: Order Added by Discern Expert. Performed By: #### 1 2082308, 6985632, 6049970, 0656241, 4111009, 7915612, 33544108, 4374760 #### [facility] Laboratory [address] [place] [address] Lymphocytes/Leukocy dariel Auto (Bld) [Pure # fraction] 1.1 E9/L Normal 1.0-4.0 [facility] Comment on above: Order Comment: Order Added by Discern Expert. Performed By: #### 1 7220882, 7040788, 0916077, 9688055, 0201862, 5664928, 36703015, 0138401 #### [facility] [address] [place] [address] Monocytes/100 WBC (Bld) 5.8 % Normal 4.0-14.0 [facility] Comment on above: Order Comment: Order Added by Discern Expert. Performed By: #### 1 9529847, 0806263, 9223098, 7365418, 1147258, 1866401, 31528534, 3868076 #### [facility] Laboratory [address] [place] [address] Monocytes/Leukocyte s Auto (Bld) [Pure # fraction] 0.5 E9/L Normal 0.2-1.0 [facility] Comment on above: Order Comment: Order Added by Discern Expert. Performed By: #### 1 7087524, 2631327, 8946386, 4407202, 7340285, 0755017, 67233728, 1476534 #### [facility] Laboratory [address] [place] [address] Neutrophils/100 WBC (Bld) 81.0 % High 36.0-75.0 [facility] Comment on above: Order Comment: Order Added by Discern Expert. Performed By: #### 1 5240400, 9675240, 8237641, 0434351, 5651564, 5849350, 24561103, 5534667 #### [facility] [address] [place] [address] Neutrophils/Leukocy dariel Auto (Bld) [Pure # fraction] 7.3 E9/L Normal 2.0-7.5 [facility] Comment on above: Order Comment: Order Added by Discern Expert. Performed By: #### 1 0169897, 9959099, 4522069, 1950834, 0649160, 6138684, 15049920, 7571798 #### [facility] Laboratory [address] [place] [address] CBC w/ Auto Diffon Erythrocyte distribution width (RBC) [Ratio] 13.6 % Normal 10.9-14.2 [facility] Comment on above: Performed By: #### 1 4333359, 3936456, 3996822, 9179247, 9277961, 4520743, 00449806, 1713010 #### [facility] [address] [place] [address] Hematocrit (Bld) [Volume fraction] 30.5 % Low 34.0-46.0 [facility] Comment on above: Performed By: #### 1 4456140, 8159662, 9507544, 7105821, 3160347, 5386816, 80098833, 4235853 #### [facility] Laboratory [address] [place] [address] Hemoglobin (Bld) [Mass/Vol] 10.8 g/dL Low 12.0-16.0 [facility] Comment on above: Performed By: #### 1 3943199, 4915393, 8859126, 8095343, 7895596, 3525076, 45620667, 2822221 #### [facility] Laboratory [address] [place] [address] MCH (RBC) [Entitic mass] 31.4 pg Normal 27.0-34.0 [facility] Comment on above: Performed By: #### 1 6087136, 0862165, 6518632, 5184308, 6267078, 9810767, 01243390, 5092615 #### [facility] Laboratory [address] [place], [place] [address] MCHC (RBC) [Mass/Vol] 35.2 g/dL Normal 33.3-35.7 [facility] Comment on above: Performed By: #### 1 3303096, 2208153, 5518859, 3619870, 9134654, 2717133, 68315868, 5516815 #### [facility] Laboratory [address] [place] [address] MCV (RBC) [Entitic vol] 89.0 fL Normal 80.0-100.0 [facility] Comment on above: Performed By: #### 1 5737292, 2934403, 9017349, 6272677, 4715388, 7122478, 88983104, 1167722 #### [facility] Laboratory [address] [place] [address] Platelet mean volume (Bld) [Entitic vol] 7.4 fL Normal 6.4-10.8 [facility] Comment on above: Performed By: #### 1 7228929, 5493487, 5308362, 6843635, 0687803, 7187907, 79519811, 1130193 #### [facility] Laboratory [address] [place] [address] Platelets (Bld) [#/Vol] 206.0 E9/L Normal 150.0-500.0 [facility] Comment on above: Performed By: #### 1 2482452, 5733298, 9738109, 4258562, 2344596, 5856780, 42798955, 8652154 #### [facility] [address] [place], [place] [address] RBC (Bld) [#/Vol] 3.4 E12/L Low 4.3-5.9 [facility] Comment on above: Performed By: #### 1 9062866, 4088076, 1199487, 1362619, 0586294, 7509713, 69021500, 6575856 #### [facility] Laboratory [address] [place] [address] WBC corrected for nucl RBC Auto (Bld) [#/Vol] 9.0 E9/L Normal 4.0-11.0 [facility] Comment on above: Performed By: #### 1 7429578, 3472924, 3820333, 6323594, 2323240, 5267548, 73872330, 7340902 #### [facility] [address] [place] [address] CMPon 07-19-2019 Albumin [Mass/Vol] 3.1 g/dL Low 3.3-5.0 [facility] Comment on above: Performed By: #### 1 2381401, 8301790, 1446664, 1974508, 9291241, 4708931, 28754919, 7439186 #### [facility] Laboratory [address] [place], [place] [address] Albumin [Mass/Vol] 1.3 g/dL Normal 1.1-2.2 [facility] Comment on above: Performed By: #### 1 9922074, 6488223, 5895035, 2816456, 0150262, 9179063, 53224428, 8754688 #### [facility] Laboratory [address] [place] [address] ALP [Catalytic activity/Vol] 64 Int._Unit/L Normal 21-98 [facility] Comment on above: Performed By: #### 1 5391792, 7094099, 7935413, 0509946, 5110327, 6627807, 53911957, 8571335 #### [facility] Laboratory [address] [place] [address] ALT No additional P-5'-P [Catalytic activity/Vol] 77 Int._Unit/L High 6-46 [facility] Comment on above: Performed By: #### 1 3670670, 7057399, 8323025, 4982509, 9685991, 2919638, 90721136, 5235645 #### [facility] Laboratory [address] [place] [address] AST [Catalytic activity/Vol] 32 Int._Unit/L Normal 5-43 [facility] Comment on above: Performed By: #### 1 4687553, 5825587, 0250044, 5753085, 7366868, 4336299, 36210556, 8747961 #### [facility] [address] [place] [address] Bilirubin [Mass/Vol] 1.2 mg/dL High 0.0-1.1 [facility] Comment on above: Performed By: #### 1 3779228, 7049837, 6651791, 7885365, 7868443, 1773184, 65909201, 4231227 #### [facility] Laboratory [address] [place] [address] Creatinine [Mass/Vol] 0.6 mg/dL Normal 0.5-1.3 [facility] Comment on above: Performed By: #### 1 5215373, 0231733, 3337138, 9193358, 3497643, 1234568, 44174662, 2678860 #### [facility] [address] [place] [address] Globulin (S) [Mass/Vol] 2.4 g/dL Normal 1.4-4.0 [facility] Comment on above: Performed By: #### 1 7040184, 4808832, 0119060, 1107157, 5489679, 8058878, 25437159, 0353385 #### [facility] Laboratory [address] [place] [address] Protein [Mass/Vol] 5.5 g/dL Low 6.0-7.8 [facility] Comment on above: Performed By: #### 1 4438328, 8220770, 0754049, 7259241, 7953986, 1259227, 78766629, 7409393 #### [facility] [address] [place] [address] Urea nitrogen [Mass/Vol] 10 mg/dL Normal 5-21 [facility] Comment on above: Performed By: #### 1 7800586, 7880539, 5742338, 7032107, 1228248, 1167222, 03941529, 6412989 #### [facility] Laboratory [address] [place] [address] Urea nitrogen/Creatinine [Mass ratio] 17 No Units Normal 10-20 [facility] Comment on above: Performed By: #### 1 5416345, 4538367, 4412771, 9459102, 3297960, 1889058, 76035260, 9610165 #### [facility] [address] [place] [address] Anion gap [Moles/Vol] 12 mmol/L Normal 6-16 [facility] Comment on above: Performed By: #### 1 6777604, 2330815, 3351187, 5021670, 9524135, 6603431, 18073337, 1501438 #### [facility] [address] [place] [address] Calcium [Mass/Vol] 8.5 mg/dL Low 8.9-11.1 [facility] Comment on above: Performed By: #### 1 6830619, 5262450, 2424281, 2609788, 0037048, 5684835, 48627823, 5547000 #### [facility] [address] [place] [address] Chloride [Moles/Vol] 109 mmol/L Normal 101-111 [facility] Comment on above: Performed By: #### 1 3867262, 3276467, 0698235, 3417078, 6382609, 6923204, 69002301, 7864959 #### [facility] Laboratory [address] [place] [address] CO2 [Moles/Vol] 22 mmol/L Normal 21-31 [facility] Comment on above: Performed By: #### 1 8820977, 3681414, 4352079, 3911717, 5994573, 6631317, 72023983, 6738179 #### [facility] [address] [place] [address] Glucose [Mass/Vol] 99 mg/dL Normal 55-199 [facility] Comment on above: Result Comment: If t his glucose result represents a fasting glucose, interpretation should refer to the following reference range: 55-99 mg/dL Performed By: #### 1 0671797, 5029753, 8405727, 3466817, 3449360, 8925773, 82165499, 6823547 #### [facility] [address] [place] [address] Potassium [Moles/Vol] 3.7 mmol/L Normal 3.5-5.3 [facility] Comment on above: Performed By: #### 1 0476500, 3922629, 6402696, 7384981, 0391794, 1263550, 37123078, 5590869 #### [facility] Laboratory [address] [place] [address] Sodium [Moles/Vol] 139 mmol/L Normal 135-145 [facility] Comment on above: Performed By: #### 1 9891272, 5815179, 7651420, 8184807, 4081098, 5651291, 97750620, 3439381 #### [facility] Laboratory [address] [place] [address] Discharge Note-Nursingon Discharge Note-Nursing Pt taken to seed [facility] exit with belongings by wheelchair and discharged home with family per personal vehicle Normal [facility] Inpatient Clinical Summaryon 07-19-2019 Inpatient Clinical Summary [address] [address] Clinical Summary Person Information: Name: SUKHDEV SCHWARTZ Age: 33 Years : 1985 12:00 AM Sex: Female PCP: LOLI MATIAS MD Marital Status: Phone: [phone] Race: White Ethnicity: Non- or Language: Vincentian Visit Id: Visit Reason: Vomiting; Nausea; Abdominal pain; COMMON DUCT OBSTRUCTION, ACUTE PANCREATITIS Speciality: Acuity: Enc Type: Inpatient Med Service: Medical Arrival: 07/17/2019 8:55 PM Discharge: Dispo Type: Admitted as IP to this [facility] Address: [address] [place] [address] [address] [place] [id number] Provider Notes: Diagnosis: 1:Acute gallstone pancreatitis; 2:Abnormal [...] Follow up: With: Address: When: Javan Brennan [facility], [address], [address] [phone] Business (1) Within 7 to 10 days With: Address: When: [place] [address] Business (1) 08/07/2019 7:30 AM Type Location Start [facility] Follow Up [facility] 09/12/2019 2:00 PM 09/12/2019 2:15 PM Confirmed Patient Education Information: Cholecystostomy Normal [facility] Inpatient Patient Summaryon 07-19-2019 Inpatient Patient Summary [address] [address] Patient Discharge Instructions PERSON INFORMATION Name: SUKHDEV [...] Follow up: With: Address: When: Javan Goel [address] [place] [address], [address], [address] [phone] Business (1) Within 7 to 10 days With: Address: When: LOLI MATIAS [address] [place] [address] Business (1) 08/07/2019 7:30 AM In the event that this physician does not participate in your insurance network, please consult with your insurance company to find a nearby participating provider. Type Location Start [facility] 09/12/2019 2:00 PM 09/12/2019 2:15 PM Confirmed Comment: JAMES Bain BRITTANY F, have received the attached patient education materials/instructions and have verbalized understanding: Patient Signature __ Date Clinican/Nurse Signature Date HERE ARE THE MEDICATION CHANGES THAT OCCURRED DURING YOUR HOSPITAL STAY New Medications [facility], [address] [place] [id number], [phone] acetaminophen-hydrocodone (acetaminophen-hydrocodone 325 mg-5 mg oral tablet) [...] Mouth 2 times a day. Pharmacy Information: [facility] Comment: PATIENT EDUCATION INFORMATION Instructions: [...] Document Reviewed: 12/31/2009 ExitCare? Patient Information ?2014 [employer]. This information is not intended to replace advice given to you by your health care provider. Make sure you discuss any questions you have with your health care provider. Medication Leaflets: Thank you for choosing [facility] Normal [facility] Interdisciplinary Note - Arcadio e Manageron 07-19-2019 INR Coag (Bld) [Relative time] Rounding with Dr. Benjamin, Felicia [facility], Rosie [facility], and Agustina GOODRICH with another patient [...] family on dc plans. Normal [facility] Comment on above: Result Comment: Elec tronically Signed By: Andrzej GOODRICH, Felicia\.br\Date and Time Signed: 07/19/19 09:10 EDT Main OR Intraoperative Recor don 07-19-2019 Main OR Intraoperative Record IntraOp Document Type FT Summary Primary Physician: Javan Goel MD Finalized Date/Time: 07/19/19 14:22:14 Pt. Name: SUKHDEV SCHWARTZ D.O.B./Sex: 1985 Female Med Rec #: [id number] Physician: Aron ALVARADO DO Financial #: [id number] Pt. Type: I Room/Bed: 06 Admit/Disch: 07/17/19 [...] 1 Entry 2 Entry 3 Case Attendee Carliot OVALLES, Geri Goel MD, Berry Heller RN Role Performed Anesthesiologist Surgeon - Primary CUSTOMER ACCOUNT ADMINISTRATOR Child Caregiver Time In 07/19/19 10:51:00 07/19/19 10:51:00 07/19/19 10:51:00 Time Out 07/19/19 13:18:00 07/19/19 12:56:00 07/19/19 13:18:00 Procedure CHOLECYSTECTOMY CHOLECYSTECTOMY CHOLECYSTECTOMY LAPAROSCOPIC W/ LAPAROSCOPIC W/ LAPAROSCOPIC W/ CHOLANGI(.) CHOLANGI(.) CHOLANGI(.) Comments DR GARVIN OUT FOR LUNCH FROM SUPERVISING.GERI [phone] WANDER GRAY-OUT TO LUNCH FROM [phone]. Last Modified By: Luis Fernando RN, Tosha Gould RN, Tosha Stewart RN 07/19/19 13:22:30 07/19/19 13:22:30 07/19/19 13:22:30 Entry 4 Entry 5 Entry 6 Case Attendee Armaan VILLAGOMEZ, Mónica Gould RN, Tosha Wright RNRavi Role Performed Scrub - Primary Hall Clerk - Primary Hall Clerk - Relief Time In 07/19/19 10:51:00 07/19/19 10:51:00 07/19/19 11:04:00 Time Out 07/19/19 13:18:00 07/19/19 13:18:00 07/19/19 11:40:00 Procedure CHOLECYSTECTOMY CHOLECYSTECTOMY CHOLECYSTECTOMY LAPAROSCOPIC W/ LAPAROSCOPIC W/ LAPAROSCOPIC W/ CHOLANGI(.) CHOLANGI(.) CHOLANGI(.) Comments OUT FOR LUNCH FROM OUT TO LUNCH FROM 1242-0412 5819-1290 Last Modified By: Luis Fernando GOODRICH, Tosha Gould RN, Tosha Stewart RN 07/19/19 13:22:30 07/19/19 13:22:30 07/19/19 13:22:30 Entry 7 Entry 8 Entry 9 Case Attendee Adalid VILLAGOMEZ, Bert Vázquez SPECIAL EDUCATION RESOURCE ROOM TEACHER/SA, Tosha Wolf CST Performed SPECIAL EDUCATION RESOURCE ROOM TEACHER/SA Scrub - Relief Scrub - Other Time [...] tissue Entry 1 Skin Integrity Bruised, Intact, [place], Skin Abnormality Yes Warm, and Dry Abnormality [...] safely administered during the perioperative period For [place] please see scanned medication reconcilliation form for medications used at the field during the procedure. Drains/Tubes FT Pre-Care Text: Administers care to invasive device sites Entry 1 Device Type TUBE NASOGASTIC SUMP Location MOUTH 18FR [[id number]][F] Quantity 1 Inserted By Geri Guerrero Present [...] Present Upon Arrival No Inserted LF 16FR [[id number]][F] Insertion Date/Time 07/19/19 11:09:00 Urine Residual 350 [...] BLANKET MISTRAL AIR Quantity 1 Aid TORSO [[id number]][F] Fluid/[place] Mistral warming system Setting HIGH/43C Body Site Upper anterior torso Last Modified By: Tosha Gould RN 07/19/19 10:34:51 Case Comments Finalized By: Juanita Stein CST Document Signatures Signed By: Tosha Gould RN 07/19/19 13:23 Juanita Stein CST 07/19/19 14:22 Normal [facility] Main OR PACU I Recordon Main OR PACU I Record PACU Phase I Document Type FT Summary Primary Physician: Javan Goel MD Finalized Date/Time: 07/19/19 13:51:28 Pt. Name: SUKHDEV SCHWARTZ/Sex: 1985 Female Med Rec #: [id number] Physician: Aron ALVARADO DO Financial #: [id number] Pt. Type: I Room/Bed: [place] [address] Admit/Disch: 07/17/19 20:55:00 - Institution: Case Times [...] Cadena RN 07/19/19 13:51 Normal [facility] Main OR Preoperative Recordo n 07-19-2019 Main OR Preoperative Record PreOp Document Type FT Summary Primary Physician: Javan Goel MD Finalized Date/Time: 07/19/19 11:50:30 Pt. Name: SUKHDEV SCHWARTZ Antoni HoltB./Sex: 1985 Female Med Rec #: [id number] Physician: Aron ALVARADO DO Financial #: [id number] Pt. Type: I Room/Bed: [facility] Admit/Disch: 07/17/19 20:55:00 - Institution: [...] Gould RN 07/19/19 11:50 Normal [facility] Progress Note-Physicianon Progress Note-Physician ACUTE [...] Auto: 11.9 % Low (07/19/19 05:39:00 EDT) [place] Auto: 5.8 % (07/19/19 05:39:00 EDT) Eos Auto: 1.1 % (07/19/19 05:39:00 EDT) Basophil Auto: 0.2 % (07/19/19 05:39:00 EDT) Neutro Absolute: 7.3 E9/L (07/19/19 05:39:00 EDT) Lymph Absolute: 1.1 E9/L (07/19/19 05:39:00 EDT) [place] Absolute: 0.5 E9/L (07/19/19 05:39:00 EDT) Eos [...] Goel MD Trauma/Critical Care/Acute Care Surgery Attending [facility] Comment on above: Result Comment: Elec tronically Signed By: Amadno GUSTAFSON, Javan J\.br\Date and Time Signed: 07/19/19 10:32 EDT eGFRon 07-19-2019 GFR/1.73 sq M predicted among blacks MDRD (S/P/Bld) [Vol rate/Area] mL/min/{1.73_m2} Normal >=59 [facility] Comment on above: Order Comment: Order added by Discern Expert. Result Comment: eGFR is race adjusted. AA=. Performed By: #### 1 6827786, 3857600, 3703049, 0585843, 9916336, 4960349, 45188353, 2090539 #### [facility] Laboratory [address] [place] [address] GFR/1.73 sq M predicted among non-blacks MDRD (S/P/Bld) [Vol rate/Area] mL/min/{1.73_m2} Normal >=59 [facility] Comment on above: Order Comment: Order added by Discern Expert. Result Comment: Patient Sitter ivan kidney disease could be indicated at eGFR's of less than 60 mL/min/1.73m2. Kidney failure is indicated at less than 15 mL/min/1.73m2. Performed By: #### 1 7019910, 8415644, 6027112, 1735785, 0689950, 9638013, 96097595, 6701369 #### [facility] Laboratory [address] [place] [address] Auto Diffon 07-18-2019 Basophils/100 WBC (Bld) 0.4 % Normal 0.0-2.0 [facility] Comment on above: Order Comment: Order Added by Discern Expert. Performed By: #### 1 1546731, 3540620, 8266903, 5687211, 9978212, 1869016, 83624484, 3903398 #### [facility] Laboratory [address] [place] [address] Basophils/Leukocyte s Auto (Bld) [Pure # fraction] 0.0 E9/L Normal 0.0-0.2 [facility] Comment on above: Order Comment: Order Added by Discern Expert. Performed By: #### 1 9952093, 6946569, 1014802, 8968242, 4470220, 1344616, 33909482, 0250561 #### [facility] [address] [place] [address] Eosinophils/100 WBC (Bld) 0.4 % Normal 0.0-8.0 [facility] Comment on above: Order Comment: Order Added by Discern Expert. Performed By: #### 1 3323066, 2551898, 2696555, 2077922, 5882654, 4360292, 79688949, 0329817 #### [facility] [address] [place] [address] Eosinophils/Leukocy dariel Auto (Bld) [Pure # fraction] 0.0 E9/L Normal 0.0-0.5 [facility] Comment on above: Order Comment: Order Added by Discern Expert. Performed By: #### 1 3026251, 6518293, 2378252, 2697947, 8507166, 8614710, 82646042, 4745146 #### [facility] Laboratory [address] [place] [address] Lymphocytes/100 WBC (Bld) 19.3 % Normal 14.0-50.0 [facility] Comment on above: Order Comment: Order Added by Discern Expert. Performed By: #### 1 1418579, 6816161, 6005559, 1576375, 2497419, 8517813, 76342357, 5751924 #### [facility] Laboratory [address] [place] [address] Lymphocytes/Leukocy dariel Auto (Bld) [Pure # fraction] 1.5 E9/L Normal 1.0-4.0 [facility] Comment on above: Order Comment: Order Added by Discern Expert. Performed By: #### 1 0285659, 8945300, 1743832, 5880257, 5257425, 4905478, 64388576, 9542746 #### [facility] Laboratory [address] [place] [address] 53783 Monocytes/100 WBC (Bld) 6.4 % Normal 4.0-14.0 [facility] Comment on above: Order Comment: Order Added by Discern Expert. Performed By: #### 1 5066823, 7511742, 7298705, 6598957, 0345096, 0451604, 44756550, 8403425 #### [facility] [address] [place] [address] 78045 Monocytes/Leukocyte s Auto (Bld) [Pure # fraction] 0.5 E9/L Normal 0.2-1.0 [facility] Comment on above: Order Comment: Order Added by Discern Expert. Performed By: #### 1 1583191, 5586942, 9094641, 5934997, 1483092, 2814383, 49230669, 6710250 #### [facility] [address] [place] [address] 30402 Neutrophils/100 WBC (Bld) 73.5 % Normal 36.0-75.0 [facility] Comment on above: Order Comment: Order Added by Discern Expert. Performed By: #### 1 8410605, 8099018, 4782492, 8961725, 3170484, 1942332, 89826949, 2972250 #### [facility] [address] [place] [address] 08571 Neutrophils/Leukocy dariel Auto (Bld) [Pure # fraction] 5.7 E9/L Normal 2.0-7.5 [facility] Comment on above: Order Comment: Order Added by Discern Expert. Performed By: #### 1 5633239, 2491932, 3758535, 1332426, 7470934, 8889278, 03217951, 4920187 #### [facility] [address] [place] [address] 97965 Basophils/100 WBC (Bld) 0.3 % Normal 0.0-2.0 [facility] Comment on above: Order Comment: Order Added by Discern Expert. Performed By: #### 1 6968233, 0848054, 2548848, 7808298, 1404162, 9166371, 16485862, 1060797 #### [facility] [address] [place] [address] 89696 Basophils/Leukocyte s Auto (Bld) [Pure # fraction] 0.0 E9/L Normal 0.0-0.2 [facility] Comment on above: Order Comment: Order Added by Discern Expert. Performed By: #### 1 3436635, 1584849, 9789397, 0035844, 1476795, 5234148, 57978016, 4661921 #### [facility] [address] [place] [address] 98773 Eosinophils/100 WBC (Bld) 0.6 % Normal 0.0-8.0 [facility] Comment on above: Order Comment: Order Added by Discern Expert. Performed By: #### 1 6999340, 1999225, 6773209, 7005457, 5609429, 6162366, 90329597, 2372410 #### [facility] [address] [place] [address] Eosinophils/Leukocy dariel Auto (Bld) [Pure # fraction] 0.1 E9/L Normal 0.0-0.5 [facility] Comment on above: Order Comment: Order Added by Discern Expert. Performed By: #### 1 8046728, 1279086, 6882668, 5087555, 0460261, 4542910, 89749013, 6373912 #### [facility] [address] [place] [address] Lymphocytes/100 WBC (Bld) 6.4 % Low 14.0-50.0 [facility] Comment on above: Order Comment: Order Added by Discern Expert. Performed By: #### 1 7009943, 5182931, 5459517, 1433634, 9086654, 8691655, 21545176, 8299806 #### [facility] [address] [place] [address] 98982 Lymphocytes/Leukocy dariel Auto (Bld) [Pure # fraction] 0.8 E9/L Low 1.0-4.0 [facility] Comment on above: Order Comment: Order Added by Discern Expert. Performed By: #### 1 4835233, 5110008, 9156461, 5219395, 5346649, 3473382, 67306350, 9169013 #### [facility] [address] [place] [address] 40903 Monocytes/100 WBC (Bld) 5.5 % Normal 4.0-14.0 [facility] Comment on above: Order Comment: Order Added by Discern Expert. Performed By: #### 1 5862270, 3861598, 4053350, 7286456, 5407433, 4072313, 22409696, 7828592 #### [facility] [address] [place] [address] Monocytes/Leukocyte s Auto (Bld) [Pure # fraction] 0.7 E9/L Normal 0.2-1.0 [facility] Comment on above: Order Comment: Order Added by Discern Expert. Performed By: #### 1 7363283, 2269128, 2569917, 3850387, 8149631, 5373521, 50049711, 5067004 #### [facility] [address] [place] [address] Neutrophils/100 WBC (Bld) 87.2 % High 36.0-75.0 [facility] Comment on above: Order Comment: Order Added by Discern Expert. Performed By: #### 1 6806996, 2175021, 3230740, 9657510, 6888193, 8805620, 27737823, 9187480 #### [facility] [address] [place] [address] Neutrophils/Leukocy dariel Auto (Bld) [Pure # fraction] 11.3 E9/L High 2.0-7.5 [facility] Comment on above: Order Comment: Order Added by Discern Expert. Performed By: #### 1 4258880, 6860167, 1825105, 8008103, 3843225, 1717959, 92093132, 8636212 #### [facility] [address] [place] [address] BMPon 07-18-2019 Urea nitrogen/Creatinine [Mass ratio] 22 No Units High 10-20 [facility] Comment on above: Performed By: #### 1 5466614, 3084303, 7469339, 5518067, 0770139, 0226647, 48719582, 0845198 #### [facility] [address] [place] [address] Creatinine [Mass/Vol] 0.5 mg/dL Normal 0.5-1.3 [facility] Comment on above: Performed By: #### 1 6879837, 5281651, 8010364, 9919892, 5925561, 4684730, 08681623, 7369742 #### [facility] [address] [place] [address] Urea nitrogen [Mass/Vol] 11 mg/dL Normal 5-21 [facility] Comment on above: Performed By: #### 1 2242690, 8808026, 9578666, 0901360, 3386506, 1207678, 91533747, 4406658 #### [facility] [address] [place] [address] Anion gap [Moles/Vol] 12 mmol/L Normal 6-16 [facility] Comment on above: Performed By: #### 1 2989033, 6003209, 2824872, 5736599, 7703522, 1755653, 96821964, 2240407 #### [facility] [address] [place] [address] Calcium [Mass/Vol] 8.8 mg/dL Low 8.9-11.1 [facility] Comment on above: Performed By: #### 1 6128630, 7209644, 7797133, 1429484, 4995506, 0641869, 92670919, 2952062 #### [facility] [address] [place] [address] Chloride [Moles/Vol] 109 mmol/L Normal 101-111 [facility] Comment on above: Performed By: #### 1 2017896, 8890587, 7073243, 5085282, 8343235, 5023011, 25517630, 1739374 #### [facility] [address] [place] [address] CO2 [Moles/Vol] 24 mmol/L Normal 21-31 [facility] Comment on above: Performed By: #### 1 2118502, 8537398, 6537958, 7796257, 5982206, 7737106, 99884415, 6229332 #### [facility] [address] [place] [address] Glucose [Mass/Vol] 104 mg/dL Normal 55-199 [facility] Comment on above: Result Comment: If t his glucose result represents a fasting glucose, interpretation should refer to the following reference range: 55-99 mg/dL Performed By: #### 1 5342677, 2415735, 9332662, 6629688, 4361943, 2001597, 54529463, 9649783 #### [facility] [address] [place] [address] Potassium [Moles/Vol] 3.8 mmol/L Normal 3.5-5.3 [facility] Comment on above: Performed By: #### 1 7343489, 5119698, 7791335, 4895952, 4392131, 3682578, 50100439, 8217571 #### [facility] [address] [place] [address] Sodium [Moles/Vol] 141 mmol/L Normal 135-145 [facility] Comment on above: Performed By: #### 1 0793405, 6188393, 4682808, 8366600, 9861389, 8443786, 77476833, 2622395 #### [facility] [address] [place] [address] Creatinine [Mass/Vol] 0.5 mg/dL Normal 0.5-1.3 [facility] Comment on above: Performed By: #### 1 3126656, 8519833, 8424331, 1475057, 6253675, 3590691, 23590746, 3728004 #### [facility] [address] [place] [address] Urea nitrogen [Mass/Vol] 13 mg/dL Normal 5-21 [facility] Comment on above: Performed By: #### 1 2743786, 3953492, 9596127, 4894281, 5779056, 0616419, 48610247, 2791067 #### [facility] [address] [place] [address] Urea nitrogen/Creatinine [Mass ratio] 26 No Units High 10-20 [facility] Comment on above: Performed By: #### 1 7393975, 8560955, 9625491, 6478777, 4094813, 3814333, 16243193, 2049103 #### [facility] [address] [place] [address] Anion gap [Moles/Vol] 13 mmol/L Normal 6-16 [facility] Comment on above: Performed By: #### 1 5289079, 7297616, 3770203, 1185461, 7293910, 4041376, 94381215, 2473824 #### [facility] [address] [place] [address] Calcium [Mass/Vol] 9.3 mg/dL Normal 8.9-11.1 [facility] Comment on above: Performed By: #### 1 4239207, 2758819, 3774259, 5070770, 1028874, 9161489, 35975151, 7419854 #### [facility] [address] [place] [address] Chloride [Moles/Vol] 105 mmol/L Normal 101-111 [facility] Comment on above: Performed By: #### 1 3570736, 3412389, 3103612, 6273885, 4696367, 7170321, 23833559, 0467727 #### [facility] [address] [place] [address] CO2 [Moles/Vol] 26 mmol/L Normal 21-31 [facility] Comment on above: Performed By: #### 1 1230192, 2438859, 2742028, 3247982, 9462544, 9674894, 52830182, 1885716 #### [facility] [address] [place] [address] Glucose [Mass/Vol] 107 mg/dL Normal 55-199 [facility] Comment on above: Result Comment: If t his glucose result represents a fasting glucose, interpretation should refer to the following reference range: 55-99 mg/dL Performed By: #### 1 3657952, 6605883, 5240315, 9262067, 8811850, 4845012, 46251160, 7443607 #### [facility] [address] [place] [address] Potassium [Moles/Vol] 3.7 mmol/L Normal 3.5-5.3 [facility] Comment on above: Performed By: #### 1 4601919, 8919378, 3865814, 4976266, 7439861, 7718611, 05659483, 5163227 #### [facility] [address] [place] [address] Sodium [Moles/Vol] 140 mmol/L Normal 135-145 [facility] Comment on above: Performed By: #### 1 3283097, 8806205, 5442116, 5125268, 9433934, 4335883, 86080708, 6979540 #### [facility] [address] [place] [address] 08834 CBC w/ Auto Diffon 9 Erythrocyte distribution width (RBC) [Ratio] 13.7 % Normal 10.9-14.2 [facility] Comment on above: Performed By: #### 1 7203622, 3434443, 0235667, 5259004, 9785819, 0187488, 35806114, 7902296 #### [facility] [address] [place] [address]197 Hematocrit (Bld) [Volume fraction] 34.8 % Normal 34.0-46.0 [facility] Comment on above: Performed By: #### 1 5808705, 3292524, 8031060, 7936448, 1207788, 9570664, 36108210, 0993213 #### [facility] [address] [place] [address] 11083 Hemoglobin (Bld) [Mass/Vol] 12.0 g/dL Normal 12.0-16.0 [facility] Comment on above: Performed By: #### 1 7871852, 2702086, 4967567, 6331737, 1620826, 7074262, 81947627, 9223341 #### [facility] [address] [place] [address] 50522 MCH (RBC) [Entitic mass] 30.5 pg Normal 27.0-34.0 [facility] Comment on above: Performed By: #### 1 6496931, 6862273, 5902585, 9157020, 4288911, 9832076, 37002786, 1216707 #### [facility] [address] [place] [address] 35090 MCHC (RBC) [Mass/Vol] 34.5 g/dL Normal 33.3-35.7 [facility] Comment on above: Performed By: #### 1 4882514, 4517273, 8657241, 0472056, 8857083, 5367983, 08329991, 1057858 #### [facility] [address] [place] [address] MCV (RBC) [Entitic vol] 88.6 fL Normal 80.0-100.0 [facility] Comment on above: Performed By: #### 1 7281349, 0649079, 9993301, 3022909, 5604628, 9803821, 98621032, 3203876 #### [facility] [address] [place] [address] Platelet mean volume (Bld) [Entitic vol] 7.9 fL Normal 6.4-10.8 [facility] Comment on above: Performed By: #### 1 0448378, 2395756, 0144697, 0389162, 8044099, 6268247, 09045465, 3979684 #### [facility] [address] [place], [place] [address] Platelets (Bld) [#/Vol] 256.0 E9/L Normal 150.0-500.0 [facility] Comment on above: Performed By: #### 1 2775649, 0718770, 8866631, 5226091, 8577158, 8276111, 33147675, 8302205 #### [facility] [address] [place] [address] 58769 RBC (Bld) [#/Vol] 3.9 E12/L Low 4.3-5.9 [facility] Comment on above: Performed By: #### 1 3961143, 5110707, 3757200, 3365135, 5291584, 0681447, 56688080, 5245204 #### [facility] [address] [place] [address] WBC corrected for nucl RBC Auto (Bld) [#/Vol] 7.8 E9/L Normal 4.0-11.0 [facility] Comment on above: Performed By: #### 1 1879286, 2266575, 4823958, 5078618, 1915375, 6409275, 00730643, 4518353 #### [facility] [address] [place] [address] Erythrocyte distribution width (RBC) [Ratio] 13.2 % Normal 10.9-14.2 [facility] Comment on above: Performed By: #### 1 6707169, 4530815, 2593809, 9668515, 7286072, 1318375, 00488148, 6293641 #### [facility] [address] [place] [address] Hematocrit (Bld) [Volume fraction] 38.9 % Normal 34.0-46.0 [facility] Comment on above: Performed By: #### 1 0394456, 0491371, 6165075, 7130396, 1840622, 2600594, 91651611, 8448965 #### [facility] [address] [place] [address] Hemoglobin (Bld) [Mass/Vol] 13.2 g/dL Normal 12.0-16.0 [facility] Comment on above: Performed By: #### 1 3304435, 6680431, 1343267, 9228597, 8946981, 3363662, 39451883, 0993583 #### [facility] [address] [place] [address] 17559 MCH (RBC) [Entitic mass] 30.0 pg Normal 27.0-34.0 [facility] Comment on above: Performed By: #### 1 1736742, 5485304, 9268362, 2858006, 7396251, 4509080, 76760759, 1097286 #### [facility] [address] [place] [address] MCHC (RBC) [Mass/Vol] 34.0 g/dL Normal 33.3-35.7 [facility] Comment on above: Performed By: #### 1 1234067, 3711982, 8084165, 9960942, 6787976, 4341658, 61640229, 2065432 #### [facility] [address] [place] [address] 95961 MCV (RBC) [Entitic vol] 88.1 fL Normal 80.0-100.0 [facility] Comment on above: Performed By: #### 1 1418256, 4862922, 3501374, 0005417, 2656097, 4473738, 39633202, 5086057 #### [facility] [address] [place] [address] 00916 Platelet mean volume (Bld) [Entitic vol] 8.3 fL Normal 6.4-10.8 [facility] Comment on above: Performed By: #### 1 1493041, 8450733, 7426389, 5660376, 3296567, 6934784, 90447570, 9630682 #### [facility] [address] [place] [address] 63745 Platelets (Bld) [#/Vol] 253.0 E9/L Normal 150.0-500.0 [facility] Comment on above: Result Comment: Slid e reviewed by CHARO. Performed By: #### 1 1259110, 0660981, 7809424, 5589579, 6781921, 0718461, 45060457, 1264834 #### [facility] [address] [place] [address] 72093 RBC (Bld) [#/Vol] 4.4 E12/L Normal 4.3-5.9 [facility] Comment on above: Performed By: #### 1 2893503, 1477123, 6860299, 4129755, 3091861, 0301931, 27691735, 7501873 #### [facility] [address] [place] [address] WBC corrected for nucl RBC Auto (Bld) [#/Vol] 13.0 E9/L High 4.0-11.0 [facility] Comment on above: Performed By: #### 1 0950158, 5310684, 2066594, 0884737, 4262406, 5202492, 93459029, 0696920 #### [facility] [address] [place] [address] Consultation Noteon 07-18-20 Consultation Note ACUTE CARE [...] Lymph Auto: 19.3 % (07/18/19 05:33:00 EDT) Preston Auto: 6.4 % (07/18/19 05:33:00 EDT) Eos Auto: 0.4 % (07/18/19 05:33:00 EDT) Basophil Auto: 0.4 % (07/18/19 05:33:00 EDT) Neutro Absolute: 5.7 E9/L (07/18/19 05:33:00 EDT) Lymph Absolute: 1.5 E9/L (07/18/19 05:33:00 EDT) Preston Absolute: 0.5 E9/L (07/18/19 05:33:00 EDT) Eos [...] MD, FACS Trauma/Critical Care/Acute Care Surgery Attending [facility] Comment on above: Result Comment: Elec [...] since 2am, states lab work done at [place] today liver enzymes were elevated history of pancreatitis History of Present Illness 33 years old white female admitted to [facility] with sudden onset of abdominal [...] list: All Problems Pancreatitis / SNOMED CT 245485754 / Confirmed Hypothyroidism / SNOMED CT 71874192 / Confirmed Ovarian dysfunction / SNOMED CT 55960830 / Confirmed Histories Past Medical History: No [...] Auto 73.5 % Lymph Auto 19.3 % Preston Auto 6.4 % Eos Auto 0.4 % Basophil Auto 0.4 % Neutro Absolute 5.7 E9/L Lymph Absolute 1.5 E9/L Preston Absolute 0.5 E9/L Eos Absolute 0.0 E9/L [...] % HI Lymph Auto 6.4 % LOW Preston Auto 5.5 % Eos Auto 0.6 % Basophil Auto 0.3 % Neutro Absolute 11.3 E9/L HI Lymph Absolute 0.8 E9/L LOW [place] Absolute 0.7 E9/L Eos Absolute 0.1 E9/L [...] she agreed to proceed Normal [facility] Comment on above: Result Comment: Elec tronically Signed By: CAPRICE GUSTAFSON, Abhinav\.br\Date and Time Signed: 07/18/19 10:01 EDT ED Clinical Summaryon 2018 ED Clinical Summary (Inserted Image. Sachi ble to display) [place] [id number] ED Clinical Summary Person Information Name: SUKHDEV SCHWARTZ [place] Age: 33 Years : 1985 12:00 AM Sex: Female Language: Vincentian PCP: LOLI MATIAS MD Marital Status: Phone: [phone] Visit Id: Visit Reason: Vomiting; Nausea; Abdominal pain; ABD PAIN, NAUSEA Speciality: Acuity: 3 Enc Type: Emergency Med Service: Emergency Arrival: 07/17/2019 8:55 PM Discharge: LOS: 000 03:53 Checkin: 07/17/2019 8:55 PM Checkout: 07/18/2019 12:48 AM Dispo Type: Admitted as IP to this [facility] EVENTS: Event Name Event Status Request [...] 07/18/2019 12:48 AM 07/18/2019 12:48 AM ADDRESS: [facility] [address] [place] [id number] [facility] DOC NOTES: MEDICAL INFORMATION: Prescriptions Given: PATIENT EDUCATION INFORMATION: Instructions: Follow up: DIAGNOSIS: Normal [facility] ED Patient Education Noteon 07-18-2019 ED Patient Education Note Normal [facility] ED Patient Summaryon ED Patient Summary (Inserted Image. Sachi ble to display) [address] [address] Patient Discharge Instructions Person Information Name: SUKHDEV SCHWARTZ Age: 33 Years Arrival Date: 07/17/2019 8:55 PM Discharge Diagnosis: Primary Care Physician: LOLI MATIAS MD Provider Information Primary Provider: Rubio MD, [employer] [employer] Instructor:Oswaldo Fischer PA-C The exam and treatment you received in the Emergency Department were for an urgent problem and are not intended as complete care. It is important that you follow up with a doctor, nurse practitioner, or physician?s certified surgical tech/first assistant for ongoing care. If your symptoms [...] opioids can be used to help relieve lsvkemam-an-vqbycw pain and are often prescribed following a [...] be struggling with addiction, tell your health human services care specialist and ask for guidance or call [facility]?S National Helpline at 5-719-227-ELJK. v Source: [place] Department of Health and Human Services/Center for Disease Control & Prevention [facility] Medications Given: Medication Dose Route Sodium Chloride 0.9% intravenous solution 1000.00 mL Initial Volume 1000.00 mL/hr IV Left Antecubital Ana morphine 4.00 mg IV Push Left Anterior Chest ondansetron 4.00 mg IV Push Left Antecubital [place] nalbuphine 5.00 mg IV Push Left Antecubital [place] Medication Information: Medications to Continue with No [...] Drug Jimbo [place] Thank you for choosing [facility] Patient Education Materials: JAMES Bain BRITTANY F , have received the following patient education materials/instructions and have verbalized understanding: Patient Education Materials: Follow-up Instructions: Prescriptions: Patient Signature __ Date Clinician/Nurse Signature Date 07/18/19 00:48:50 Normal [facility] Hep Func Panelon 07-18-2019 Albumin [Mass/Vol] 1.2 g/dL Normal 1.1-2.2 [facility] Comment on above: Performed By: #### 1 8602765, 8744111, 4062183, 9579877, 5941477, 1145188, 98896844, 3113074 #### [facility] [address] [place] [address] ALP [Catalytic activity/Vol] 61 Int._Unit/L Normal 21-98 [facility] Comment on above: Performed By: #### 1 9714494, 3522300, 3015776, 3437308, 9023753, 2835955, 95595742, 6176816 #### [facility] [address] [place] [address] 64004 ALT No additional P-5'-P [Catalytic activity/Vol] 119 Int._Unit/L High 6-46 [facility] Comment on above: Performed By: #### 1 2769246, 4181019, 8687313, 0477623, 5188236, 2715057, 27866898, 3928232 #### [facility] [address] [place] [address] 63589 AST [Catalytic activity/Vol] 106 Int._Unit/L High 5-43 [facility] Comment on above: Performed By: #### 1 8615316, 1030448, 9679420, 1566485, 6289607, 5171778, 40313348, 3483700 #### [facility] [address] [place] [address] Bilirubin.direct [Mass/Vol] 1.6 mg/dL High 0.1-0.9 [facility] Comment on above: Performed By: #### 1 8215408, 6956351, 5238698, 7954761, 6713701, 0178800, 95584746, 6181047 #### [facility] [address] [place] [address] 91090 Globulin (S) [Mass/Vol] 2.7 g/dL Normal 1.4-4.0 [facility] Comment on above: Performed By: #### 1 3524337, 7671592, 5118453, 4910021, 4213307, 1841718, 42633816, 2711744 #### [facility] [address] [place] [address] 28230 Albumin [Mass/Vol] 3.3 g/dL Normal 3.3-5.0 [facility] Comment on above: Performed By: #### 1 3435366, 1779793, 3514206, 6837733, 3931882, 4102837, 42929220, 2686663 #### [facility] [address] [place] [address] Bilirubin [Mass/Vol] 3.6 mg/dL High 0.0-1.1 [facility] Comment on above: Performed By: #### 1 2765426, 3394911, 3546440, 7938481, 1351418, 7376555, 57019793, 9809587 #### [facility] [facility] [address] [place] [address] Bilirubin.direct [Mass/Vol] 2.0 mg/dL High 0.1-0.4 [facility] Comment on above: Performed By: #### 1 [id number], 6781719, 0262461, 1267454, 7198130, 8060277, 21398692, 9065264 #### [facility] [address] [place] [address] Protein [Mass/Vol] 6.0 g/dL Normal 6.0-7.8 [facility] Comment on above: Performed By: #### 1 0499573, 7630371, 6771433, 3951350, 8757439, 5515596, 61141210, 5347317 #### [facility] [address] [place] [address] Albumin [Mass/Vol] 3.8 g/dL Normal 3.3-5.0 [facility] Comment on above: Performed By: #### 1 1544386, 8884508, 8592568, 5423654, 7219780, 0924984, 94215505, 6864321 #### [facility] [address] [place] [address] Albumin [Mass/Vol] 1.4 g/dL Normal 1.1-2.2 [facility] Comment on above: Performed By: #### 1 6136062, 5634319, 2180097, 8163339, 5045843, 8688853, 88323456, 1099169 #### [facility] [address] [place] [address] ALP [Catalytic activity/Vol] 69 Int._Unit/L Normal 21-98 [facility] Comment on above: Performed By: #### 1 4856228, 2477382, 8315789, 9510518, 3915051, 6026422, 15721311, 4697677 #### [facility] [address] [place] [address] ALT No additional P-5'-P [Catalytic activity/Vol] 144 Int._Unit/L High 6-46 [facility] Comment on above: Performed By: #### 1 6941215, 0052768, 0518411, 2481412, 1243493, 5354541, 98459238, 9388994 #### [facility] [address] [place] [address] AST [Catalytic activity/Vol] 179 Int._Unit/L High 5-43 [facility] Comment on above: Performed By: #### 1 0073128, 1992103, 9030488, 6763754, 0639828, 9946798, 37812607, 9652369 #### [facility] [address] [place] [address] Bilirubin [Mass/Vol] 3.6 mg/dL High 0.0-1.1 [facility] Comment on above: Performed By: #### 1 6404053, 9460864, 2854319, 3770516, 1701027, 6961499, 99653406, 8316668 #### [facility] [address] [place] [address] Bilirubin.direct [Mass/Vol] 1.5 mg/dL High 0.1-0.9 [facility] Comment on above: Performed By: #### 1 6950325, 9750717, 0379028, 7020244, 7671922, 2190150, 69339324, 0522790 #### [facility] [address] [place] [address] Bilirubin.direct [Mass/Vol] 2.1 mg/dL High 0.1-0.4 [facility] Comment on above: Performed By: #### 1 4339360, 0534637, 8400339, 3257975, 5203783, 6807443, 10011036, 4760388 #### [facility] [address] [place] [address] Globulin (S) [Mass/Vol] 2.7 g/dL Normal 1.4-4.0 [facility] Comment on above: Performed By: #### 1 1614859, 9464590, 0960724, 8194216, 8001088, 1818982, 21673793, 0269144 #### [facility] [address] [place] [address] Protein [Mass/Vol] 6.5 g/dL Normal 6.0-7.8 [facility] Comment on above: Performed By: #### 1 3276341, 6093047, 6400786, 1071192, 1764984, 9155539, 41301067, 2688565 #### [facility] [address] [place] [address] History and Physicalon 07-18 History and Physical [...] states she had a hospitalization while in [place] last month with the same was considered [...] Auto: 6.4 % Low (07/17/19 22:12:00 EDT) [place] Auto: 5.5 % (07/17/19 22:12:00 EDT) Eos Auto: 0.6 % (07/17/19 22:12:00 EDT) Basophil Auto: 0.3 % (07/17/19 22:12:00 EDT) Neutro Absolute: 11.3 E9/L High (07/17/19 22:12:00 EDT) Lymph Absolute: 0.8 E9/L Low (07/17/19 22:12:00 EDT) [place] Absolute: 0.7 E9/L (07/17/19 22:12:00 EDT) Eos [...] 2: Mother. Thyroid cancer: Mother and Sister. [facility] Comment on above: Result Comment: Elec tronically Signed By: Aron ALVARADO DO\.br\Date and Time Signed: 07/18/19 02:27 EDT Interdisciplinary Note - Arcadio e Manageron 07-18-2019 INR Coag (Bld) [Relative time] Rounding with Dr. Benjamin, Felicia ACEVEDO, Rosie [facility], and Jeanette GOODRICH with another patient. [...] discharge. lives with spouse. Normal [facility] Lactic Acidon 07-18-2019 Lactate [Mass/Vol] 10.1 mg/dL Normal 4.5-19.8 [facility] Comment on above: Performed By: #### 1 6270622, 9757359, 1782467, 2657580, 3217998, 3066331, 09860212, 7449865 #### [facility] [address] [place] [address] Lipase Levelon 07-18-2019 Lipase [Catalytic activity/Vol] U/L High 13-58 [facility] Comment on above: Result Comment: Resu lt verified by dilution Performed By: #### 1 9371676, 5136851, 2652798, 7969796, 4871044, 4565261, 34620087, 7558610 #### [facility] [address] [place] [address] Main OR Intraoperative Recor don 07-18-2019 Main OR Intraoperative Record IntraOp Document Type FT Summary Primary Physician: Abhinav REDDY MD Finalized Date/Time: 07/18/19 14:39:36 Pt. Name: SUKHDEV SCHWARTZ/Sex: 1985 Female Med Rec #: [id number] Physician: Aron ALVARADO DO Financial #: [id number] Pt. 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 Case Attendance FT Entry 1 Entry 2 Entry 3 Case Attendee CAPRICE GUSTAFSON, Abhinav Eaton Jr DO, Davie Cabrera RN, Pamela Role Performed Surgeon - Primary Anesthesiologist of Hall Clerk - Primary Record Time In 07/18/19 10:03:00 07/18/19 09:58:00 07/18/19 09:58:00 Time Out 07/18/19 10:24:00 07/18/19 10:24:00 07/18/19 10:24:00 Procedure ERCP(.) ERCP(.) ERCP(.) Comments Last Modified By: Deborah RN, Pamela Cabrera RN, Pamela Cabrera RN, Pamela 07/18/19 10:32:44 07/18/19 10:27:40 07/18/19 10:27:40 Entry 4 Entry 5 Entry 6 Case Attendee Reny Michaud SPECIAL EDUCATION RESOURCE ROOM TEACHER, Shobha Nicolas RT, Kathy Turcios Role Performed [...] Attendee Moy GOODRICH, Humaira Hooper Role Performed Hall Clerk - Other Time In 07/18/19 09:58:00 Time [...] BAE, Davie Perry, Deborah GOODRICH, Pamela, Jerry SPECIAL EDUCATION RESOURCE ROOM TEACHER, Jaswant Yeager, Reny K, Fidencio RT, Moy [...] and tissue Entry 1 Skin Integrity Intact, [place], Warm, and Skin Abnormality No Dry Outcomes [...] RN Patient Status Stable Skin. Condition Intact, [place], Warm, and Dry Airway Maintenance Oxygen in Use? No Airway Device N/A Outcomes Met? 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 Yes Verified Last Modified By: Pamela Cabrera RN 07/18/19 10:15:26 Post-Care Text: The patient received appropriate medication(s) safely administered during the perioperative period For [facility] please see scanned medication reconcilliation form for [...] symptoms of radiation injury Normal [facility] Main OR PACU I Recordon 10 Main OR PACU I Record PACU Phase I Document Type FT Summary Primary Physician: Abhinav REDDY MD Finalized Date/Time: 07/18/19 10:47:23 Pt. Name: SUKHDEV SCHWARTZ Antoni Garcia./Sex: 1985 Female Med Rec #: [id number] Physician: Aron ALVARADO DO Financial #: [id number] Pt. Type: I Room/Bed: [place] [address] Admit/Disch: 07/17/19 20:55:00 - Institution: Case Times [...] Iverson RN 07/18/19 10:47 Normal [facility] Main OR Preoperative Recordo n 07-18-2019 Main OR Preoperative Record Holding Area Document Type FT Summary Primary Physician: Abhinav REDDY MD Finalized Date/Time: 07/18/19 09:36:36 Pt. Name: SEN SCHWARTZTRUMAN Garcia./Sex: 1985 Female Med Rec #: [id number] Physician: Aron ALVARADO DO Financial #: [id number] Pt. Type: I Room/Bed: [facility]/ Admit/Disch: 07/17/19 20:55:00 - Institution: [...] Patient states Yes Comment - Adult ip [id number] COMING postop adult Supervision supervision available Case [...] Kellen POZO 07/18/19 09:36 Normal [facility] PT & PTTon 07-18-2019 aPTT Coag (PPP) [Time] 28.1 second(s) Normal 25.1-36.5 [facility] Comment on above: Result Comment: Hepa rin therapeutic range (represented by Anti-Factor Xa activity of 0.2 - 0.4 U/mL) corresponds to PTT of 56.6 - 109.0 sec. Performed By: #### 1 7384481, 3118384, 7956801, 4594876, 7363789, 2129660, 44982554, 7805810 #### [facility] [address] [place] [address] INR Coag (PPP) [Relative time] 1.0 {INR} [facility] Comment on above: Result Comment: INR results are specifically intended to assess patients stabilized on long-term Anticoagulation therapy suggested INR?s ?Less Intensive Anticoagulation? 2.0 ? 3.0 Conventional Range 3.0 ? 4.5 Performed By: #### 1 9961844, 6833650, 2520371, 6230139, 2411669, 8203470, 92542109, 2595208 #### [facility] [address] [place] [address] PT Coag (PPP) [Time] 11.9 second(s) Normal 10.2-12.9 [facility] Comment on above: Performed By: #### 1 4695657, 9069473, 1127270, 7771268, 7992298, 9440779, 93533202, 1599424 #### [facility] [address] [place] [address] Prescriptions/Work Noteson 1 Prescriptions/Work Notes Pt to US at this time, via cart. Normal [facility] Progress Note-Nurseon 2018 Progress Note-Nurse SIMI Murillo aware of patient c/o pain. Normal [facility] Progress Note-Nurse Pt care report provi ded to JOLEEN Chavez at this time. Normal [facility] U BetaHcg Qualon 07-18-2019 HCG.beta subunit (U) [Moles/Vol] Negative Normal [facility] Comment on above: Performed By: #### 1 2790791, 7832429, 9566895, 2523467, 9594607, 6568282, 11793897, 5166813 #### [facility] [address] [place] [address] UA With Cult Reflexon 2018 Bacteria LM Ql (Urine sed) 1+ /HPF Abnormal Trace [facility] Comment on above: Performed By: #### 1 4950526, 4788910, 8590236, 8515618, 5197074, 1400361, 98162642, 1091400 #### [facility] [address] [place] [address] Bilirubin Ql (U) 3+ Abnormal Negative [facility] Comment on above: Performed By: #### 1 9589118, 2106895, 4527037, 7033071, 0752985, 6582678, 46187235, 6541155 #### [facility] [address] [place] [address] Clarity (U) SL CLOUDY Abnormal Clear [facility] Comment on above: Performed By: #### 1 4674237, 7466096, 2274986, 6513546, 0525286, 8069611, 84497810, 3836596 #### [facility] [address] [place] [address] Color (U) DARK YELLO Abnormal Yellow [facility] Comment on above: Performed By: #### 1 5639716, 2228994, 1139673, 9489794, 6821743, 4859684, 08536333, 2476771 #### [facility] [address] [place] [address] Crystals LM Ql (Urine sed) Present Normal [facility] Comment on above: Performed By: #### 1 9826384, 1532489, 7355456, 9732343, 9668129, 5164538, 45509154, 5573867 #### [facility] [address] [place] [address] Epithelial cells.squamous LM.HPF (Urine sed) [#/Area] 5-8 Normal 0-2 [facility] Comment on above: Performed By: #### 1 1996275, 9908651, 6714905, 4344896, 9100506, 0308003, 40966290, 9307066 #### [facility] [address] [place] [address] Glucose Test strip (U) [Mass/Vol] Negative Normal Negative [facility] Comment on above: Performed By: #### 1 2144344, 9421155, 4665350, 1294774, 5131406, 6591967, 77186554, 4192460 #### [facility] [address] [place] [address] Hemoglobin Ql (U) TRACE Abnormal Negative [facility] Comment on above: Performed By: #### 1 3938337, 5981780, 0572519, 9584316, 3569196, 1843755, 53091063, 0087717 #### [facility] [address] [place] [address] Ketones (U) [Mass/Vol] 3+ Abnormal Negative [facility] Comment on above: Performed By: #### 1 9438572, 8310078, 5376353, 7243005, 5588506, 9447753, 30059491, 7511214 #### [facility] [address] [place] [address] [place].plasma/Lith ium.RBC (Bld) [Mass ratio] 4-20 Normal 0-3 [facility] Comment on above: Performed By: #### 1 7312820, 8099279, 6354923, 7575986, 3075672, 7195735, 20385776, 7456854 #### [facility] [address] [place] [address] Mucus Ql (Urine sed) 3+ Normal [facility] Comment on above: Performed By: #### 1 1272565, 3099062, 4135308, 1076927, 6235710, 7459624, 49960657, 1220826 #### [facility] [address] [place] [address] Nitrite Ql (U) Negative Normal Negative [facility] Comment on above: Performed By: #### 1 6945587, 3501144, 1076396, 1780568, 5265849, 4165393, 06706613, 2265774 #### [facility] [address] [place] [address] pH (U) 6.0 [pH] 5.0-9.0 [facility] Comment on above: Performed By: #### 1 9075312, 5424781, 0585326, 6533901, 4209138, 1673598, 43289129, 6043655 #### [facility] [address] [place] [address] Protein (U) [Mass/Vol] TRACE Abnormal Negative [facility] Comment on above: Performed By: #### 1 0387220, 0635809, 7864819, 4985961, 6062562, 1635918, 27374059, 7645034 #### [facility] [address] [place] [address] Specific gravity (U) [Rel density] >=1.030 1.005-1.030 [facility] Comment on above: Performed By: #### 1 7106343, 2438378, 3524947, 2175880, 7900443, 9058674, 18642703, 8666482 #### [facility] [address] [place] [address] UA Spec Desc Clean Catch Normal [facility] Comment on above: Performed By: #### 1 2165562, 3147381, 2108907, 0350124, 7093649, 2714849, 86954265, 5046300 #### [facility] [address] [place] [address] Urobilinogen Qn (U) 2.0 {Payal'U}/dL Abnormal 0.0-1.0 [facility] Comment on above: Performed By: #### 1 1866865, 7270835, 4783726, 1133175, 7626775, 3801862, 75124946, 7577352 #### [facility] [address] [place] [address] WBC Auto Ql (U) TRACE Abnormal Negative [facility] Comment on above: Performed By: #### 1 0550948, 5379972, 4009243, 4648905, 6839639, 2606304, 17575379, 5395005 #### [facility] [address] [place] [address] WBC casts LM.LPF (Urine sed) [#/Area] 0-3 Normal [facility] Comment on above: Performed By: #### 1 5109423, 5155345, 4925566, 5231895, 8613214, 4106564, 64072098, 0313544 #### [facility] [address] [place] [address] WBC LM.HPF (Urine sed) [#/Area] 0-5 Normal 0-5 [facility] Comment on above: Performed By: #### 1 5731308, 5153596, 1378531, 7817112, 8614291, 3688914, 91326332, 8616832 #### [facility] [address] [place] [address] US Gallbladderon 07-18-2019 US Gallbladder Exam Date/Time: [...] by: MADISON Technologist: LALY Earl [facility] XR ERCP Biliary Ducton 07-18 XR ERCP Biliary Duct Exam Date/Time: 07/18/2019 10:25 EDT Reason for Exam: ercp Report IMPRESSION: DISTAL COMMON BILE DUCT STONE, WITH APPARENT REMOVAL FOLLOWING PASSAGE OF A BALLOON CATHETER. SUSPECTED SHORT SEGMENT SPASM OF THE DISTAL MOST COMMON BILE DUCT. CLINICAL HISTORY: ERCP. COMMENT: 6 limited [id number] C-arm images were obtained during an ERCP [...] 62.1 Fluoro Time: 141.1s Normal [facility] eGFRon 07-18-2019 GFR/1.73 sq M predicted among blacks MDRD (S/P/Bld) [Vol rate/Area] mL/min/{1.73_m2} Normal >=59 [facility] Comment on above: Order Comment: Order added by Discern Expert. Result Comment: eGFR is race adjusted. AA=. Performed By: #### 1 7065601, 9515358, 6824973, 0504487, 1040588, 2212458, 47321165, 7365281 #### [facility] [address] [place] [address] GFR/1.73 sq M predicted among non-blacks MDRD (S/P/Bld) [Vol rate/Area] mL/min/{1.73_m2} Normal >=59 [facility] Comment on above: Order Comment: Order added by Discern Expert. Result Comment: Patient Sitter ivan kidney disease could be indicated at eGFR's of less than 60 mL/min/1.73m2. Kidney failure is indicated at less than 15 mL/min/1.73m2. Performed By: #### 1 3350303, 7757491, 1361451, 6448780, 9498712, 1885268, 19135530, 9657427 #### [facility] [address] [place] [address] GFR/1.73 sq M predicted among blacks MDRD (S/P/Bld) [Vol rate/Area] mL/min/{1.73_m2} Normal >=59 [facility] Comment on above: Order Comment: Order added by Discern Expert. Result Comment: eGFR is race adjusted. AA=. Performed By: #### 1 6827395, 3375567, 7777970, 5123247, 8642915, 7770701, 56472757, 2209596 #### [facility] [address] [place] [address] GFR/1.73 sq M predicted among non-blacks MDRD (S/P/Bld) [Vol rate/Area] mL/min/{1.73_m2} Normal >=59 [facility] Comment on above: Order Comment: Order added by Discern Expert. Result Comment: Patient Sitter ivan kidney disease could be indicated at eGFR's of less than 60 mL/min/1.73m2. Kidney failure is indicated at less than 15 mL/min/1.73m2. Performed By: #### 1 6435524, 0943883, 7948884, 0013510, 3304355, 6524635, 94692898, 3920281 #### [facility] [address] [address] Amylaseon 07-17-2019 Amylase [Catalytic activity/Vol] 39 U/L 28 - 100 U/L [place] CBC Auto Differentialon 06-20 Basophils (Bld) [#/Vol] 0.00 10*3/uL [place] Basophils/100 WBC (Bld) 0 % 0 - 2 % [place] Differential Type YES [place] Eosinophils (Bld) [#/Vol] 0.10 10*3/uL [place] Eosinophils/100 WBC (Bld) 1 % 0 - 5 % [place] Erythrocyte distribution width (RBC) [Ratio] 13.3 % 12.1 - 15.2 % [place] Hematocrit (Bld) [Volume fraction] 36.1 % 36 - 46 % [place] Hemoglobin (Bld) [Mass/Vol] 12.3 g/dL 12 - 16 g/dL [place] Lymphocytes (Bld) [#/Vol] 1.50 10*3/uL [place] Lymphocytes/100 WBC (Bld) 23 % 15 - 40 % [place] MCH (RBC) [Entitic mass] 30.5 pg 26 - 34 pg [place] MCHC (RBC) [Mass/Vol] 34.1 g/dL 31 - 37 g/dL [place] MCV (RBC) [Entitic vol] 89.3 fL 80 - 100 fL [place] Monocytes (Bld) [#/Vol] 0.40 10*3/uL [place] Monocytes/100 WBC (Bld) 6 % 4 - 8 % [place] Platelet mean volume (Bld) [Entitic vol] NOT REPORTED 6 - 12 fL [place] Platelets (Bld) [#/Vol] 301 10*3/uL [place] Platelets (Bld) [#/Vol] NOT REPORTED [place] RBC (Bld) [#/Vol] 4.04 10*6/uL 4 - 5.2 m/uL [place] RBC morphology finding Nom (Bld) NOT REPORTED [place] Segmented neutrophils/100 WBC (Bld) 70 % 47 - 75 % [place] Segs Absolute 4.60 [place] WBC (Bld) [#/Vol] 6.6 10*3/uL [place] WBC (Bld) [#/Vol] NOT REPORTED per 100 WBC [place] WBC Morphology NOT REPORTED [place] Comprehensive Metabolic Pane avel 07-17-2019 Albumin [Mass/Vol] 4.4 g/dL 3.5 - 5.2 g/dL [place] Albumin/Globulin [Mass ratio] NOT REPORTED [place] ALP [Catalytic activity/Vol] 84 U/L 35 - 104 U/L [place] ALT [Catalytic activity/Vol] 153 U/L High 5 - 33 U/L [place] Anion gap [Moles/Vol] 11 mmol/L 9 - 17 mmol/L [place] AST [Catalytic activity/Vol] 243 U/L High <32 [place] Bilirubin Ql (U) 2.37 mg/dL High 0.3 - 1.2 mg/dL [place] Bun/Cre Ratio 27 High [place] Calcium [Mass/Vol] 9.9 mg/dL 8.6 - 10. 4 mg/dL [place] Chloride [Moles/Vol] 104 mmol/L 98 - 107 mmol/L [place] CO2 [Moles/Vol] 24 mmol/L 20 - 31 mmol/L [place] Creatinine [Mass/Vol] 0.49 mg/dL Low 0.5 - 0.9 mg/dL [place] GFR >60 >60 mL/min [place] GFR Non- >60 >60 mL/min [place] GFR/1.73 sq M predicted among non-blacks MDRD (S/P/Bld) [Vol rate/Area] [place] Comment on above: Average GFR for 30-3 9 years old: 107 mL/min/1.73sq m Chronic Kidney Disease: <60 mL/min/1.73sq m Kidney failure: <15 mL/min/1.73sq m eGFR calculated using average adult body mass. Additional eGFR calculator available at: http://www.[employer]/multiple_crcl_2012.htm GFR/1.73 sq M predicted among non-blacks MDRD (S/P/Bld) [Vol rate/Area] NOT REPORTED [place] Glucose [Mass/Vol] 97 mg/dL 70 - 99 mg/dL [place] Interpretation and review of laboratory results Abnormal [place] Potassium [Moles/Vol] 3.6 mmol/L Low 3.7 - 5.3 mmol/L [place] Protein [Mass/Vol] 7.5 g/dL 6.4 - 8.3 g/dL [place] Sodium [Moles/Vol] 139 mmol/L 135 - 144 mmol/L [place] Urea nitrogen [Mass/Vol] 13 mg/dL 6 - 20 mg/dL [place] Lipaseon 07-17-2019 Lipase [Catalytic activity/Vol] 20 U/L 13 - 60 U/L [place] Otheron 07-17-2019 Immature granulocytes (Bld) [#/Vol] NOT REPORTED 0 % [place] US HEAD NECK SOFT TISSUE THY ROIDon 07-14-2019 Stable nodules with no follow-up needed. [place] EXAM: US HEAD NECK S OFT [...] lobe: 4.9 x 1.3 x 1.9 cm. [place] Misha, Mhpn Incoming R adiant Results From [employer] - 07/14/2019 3:21 PM EDT EXAM: US [...] IMPRESSION: Stable nodules with no follow-up needed. [place] TSHon 07-07-2019 TSH Qn 0.78 m[IU]/L Normal 0.44 - 3.98 [facility] Comment on above: Result Comment: TSH testing is performed using different testing methodology at [facility] than at other [facility]. Direct result comparisons should only be made within the same method. . Patients receiving more than 5 mg/day of biotin may have interference in test results. A sample should be taken no sooner than eight hours after previous dose. Contact [phone] for additional information. Performed By: #### T SH2 #### [facility] [address] [place] [address] TSHon 05-25-2019 TSH Qn 0.77 m[IU]/L Normal 0.44 - 3.98 [facility] Comment on above: Result Comment: TSH testing is performed using different testing methodology at [facility] [facility]) than at [facility]. Direct result comparisons should only be made within the same method. . Patients receiving more than 5 mg/day of biotin may have interference in test results. A sample should be taken no sooner than eight hours after previous dose. Contact [phone] for additional information. Performed By: #### T SH2 #### [facility] [address] [place] [address] TSHon 01-18-2019 TSH Qn 0.75 m[IU]/L Normal 0.44 - 3.98 [facility] Comment on above: Result Comment: TSH testing is performed using different testing methodology at [facility] than at other [facility]. Direct result comparisons should only be made within the same method. . Patients receiving more than 5 mg/day of biotin may have interference in test results. A sample should be taken no sooner than eight hours after previous dose. Contact [phone] for additional information. Performed By: #### T SH2 #### [facility] [address] [place] [address] TSHon 01-10-2019 TSH Qn 1.27 m[IU]/L Normal 0.44 - 3.98 [facility] Comment on above: Result Comment: TSH testing is performed using different testing methodology at [facility] than at other [facility]. Direct result comparisons should only be made within the same method. . Patients receiving more than 5 mg/day of biotin may have interference in test results. A sample should be taken no sooner than eight hours after previous dose. Contact [phone] for additional information. Performed By: #### T SH2 #### [facility] [address] [place] [address] TSHon 12-07-2018 TSH Qn 0.86 m[IU]/L Normal 0.44 - 3.98 [facility] Comment on above: Result Comment: TSH testing is performed using different testing methodology at [facility] than at other [facility]. Direct result comparisons should only be made within the same method. . Patients receiving more than 5 mg/day of biotin may have interference in test results. A sample should be taken no sooner than eight hours after previous dose. Contact [phone] for additional information. Performed By: #### T SH2 #### [facility] [address] [place] [address] EXT LAB FERRITINon 9 Ferritin mass conc 97 ng/mL [facility] External Lab CBC (With or wi thout Diff)on 11-12-2018 Basophils (Bld) [#/Vol] 0.0 10*3/uL [facility] Basophils/100 WBC (Bld) 0.8 % [facility] Eosinophils (Bld) [#/Vol] 0.1 10*3/uL [facility] Eosinophils (Bld) [#/Vol] 2.5 10*3/uL [facility] Erythrocyte distribution width (RBC) [Ratio] 12.8 % [facility] Hematocrit (Bld) [Volume fraction] 39.1 % [facility] Hemoglobin (Bld) [Mass/Vol] 13.2 g/dL [facility] Lymphocytes (Bld) [#/Vol] 1.8 10*3/uL [facility] Lymphocytes (Bld) [#/Vol] 30.4 10*3/uL [facility] MCH (RBC) [Entitic mass] 29.[address] [facility] MCHC (RBC) [Mass/Vol] 33.7 g/dL [facility] MCV (RBC) [Entitic vol] 88.[address] [facility] Monocytes (Bld) [#/Vol] 0.4 10*3/uL [facility] Monocytes (Bld) [#/Vol] 7.2 10*3/uL [facility] Neutrophils (Bld) [#/Vol] 59.1 10*3/uL [facility] Neutrophils (Bld) [#/Vol] 3.4 10*3/uL [facility] Platelet mean volume (Bld) [Entitic vol] 7.[address] [facility] Platelets (Bld) [#/Vol] 308 10*3/uL K/mcL [facility] RBC (Bld) [#/Vol] 4.4 10*6/uL [facility] WBC (Bld) [#/Vol] 5.80 10*3/uL K/mcL [facility] External Lab Comprehensive M etabolic Panelon 11-12-2018 Albumin [Mass/Vol] 4.1 g/dL [facility] Albumin/Globulin [Mass ratio] 1.2 {ratio} [facility] ALP [Catalytic activity/Vol] 52 U/L [facility] ALT [Catalytic activity/Vol] 11 U/L [facility] AST [Catalytic activity/Vol] 15 U/L [facility] Bilirubin Ql (U) 1.0 mg/dL [facility] Calcium [Mass/Vol] 9.5 mg/dL [facility] Chloride [Moles/Vol] 102 mmol/L [facility] Creatinine [Mass/Vol] 0.60 mg/dL [facility] GFR/1.73 sq M predicted among blacks MDRD (S/P/Bld) [Vol rate/Area] [facility] GFR/1.73 sq M predicted among non-blacks MDRD (S/P/Bld) [Vol rate/Area] [facility] Globulin (S) [Mass/Vol] 3.3 g/dL [facility] Glucose [Mass/Vol] 87 mg/dL [facility] HCO3 (Bld) [Moles/Vol] 25 mmol/L [facility] Magnesium [Mass/Vol] [facility] Phosphate [Mass/Vol] mg/dL [facility] Potassium [Moles/Vol] 4.1 mmol/L [facility] Protein [Mass/Vol] 7.4 g/dL [facility] Sodium [Moles/Vol] 137 mmol/L [facility] Urate [Mass/Vol] mg/dL [facility] Urea nitrogen [Mass/Vol] 15 mg/dL [facility] Urea nitrogen/Creatinine [Mass ratio] 25 mg/mg High [facility] External Lab Vitamin D, 25-O Hon 11-12-2018 Vitamin D, 25-OH 55.0 [facility] External Vitamin B12 and Fol ateon 11-12-2018 Cobalamin (Vitamin B12) mass conc 1500 pg/mL Off scale high [facility] Folate 24.8 ng/mL Off scale high [facility] Otheron 11-12-2018 Interpretation and review of laboratory results Abnormal [facility] TSHon 08-13-2018 TSH Qn 0.64 m[IU]/L Normal 0.44 - 3.98 [facility] Comment on above: Order Comment: FXD S TAT TO [phone]; SPOKE W/ALFREDO , 08/12/2018 22:23 Result Comment: TSH testing is performed using different testing methodology at [facility] than at other [facility]. Direct result comparisons should only be made within the same method. . Patients receiving more than 5 mg/day of biotin may have interference in test results. A sample should be taken no sooner than eight hours after previous dose. Contact [phone] for additional information. FXD STAT TO [phone]; SPOKE W/ALFREDO , 08/12/2018 22:23 Performed By: #### T SH2 #### [facility] [address] [place] [address] Vital Signs Date Time Vital Sign Value Performing Clinician Facility 09-12-2019 15:37-0500 BMI (Body Mass Index) 31.06 kg/m2 [facility] 09-12-2019 15:37-0500 Body weight 103.87 kg [facility] 09-12-2019 15:37-0500 BP Diastolic 85 mm[Hg] [facility] 09-12-2019 15:37-0500 BP Systolic 126 mm[Hg] [facility] 09-12-2019 15:37-0500 Height 182.9 cm [facility] 09-12-2019 15:37-0500 Pulse (Heart Rate) 73 /min [facility] 11-08-2017 09:56-0500 BMI (Body Mass Index) 36.08 kg/m2 [facility] Work Phone: 11-08-2017 09:56-0500 BP Diastolic 81 mm[Hg] [facility]: 11-08-2017 09:56-0500 BP Systolic 120 mm[Hg] [facility] Work Phone: 11-08-2017 09:56-0500 Height 182.9 cm [facility] Work Phone: 11-08-2017 09:56-0500 Pulse (Heart Rate) 70 /min [facility] Work Phone: 11-08-2017 09:56-0500 Weight 120.66 kg [facility] Work Phone: 08-09-2017 14:05-0400 BMI (Body Mass Index) 40.01 kg/m2 Behzad Zacher[facility] Work Phone: 08-09-2017 14:05-0400 Body Temperature 97.5 [degF] Behzad Zacherya [facility] Work Phone: 08-09-2017 14:05-0400 BP Diastolic 74 mm[Hg] Behzad Zacherya [facility] Work Phone: 08-09-2017 14:05-0400 BP Systolic 130 mm[Hg] [facility]ad [facility]ana [facility] Work Phone: 08-09-2017 14:05-0400 Height 182.9 cm Behzad [facility] Work Phone: 08-09-2017 14:05-0400 Pulse (Heart Rate) 85 /min Behzad [facility] Work Phone: 08-09-2017 14:05-0400 Weight 133.81 kg Behzad [facility] Work Phone: 06-01-2017 14:30-0400 BMI (Body Mass Index) 43.26 kg/m2 Behzad Z[facility]ya [facility] Work Phone: 06-01-2017 14:30-0400 Body Temperature 97.81 [degF] Behzad [facility] Work Phone: 06-01-2017 14:30-0400 BP Diastolic 82 mm[Hg] Behzad [facility] Work Phone: 06-01-2017 14:30-0400 BP Systolic 128 mm[Hg] Behzad [facility] Work Phone: 06-01-2017 14:30-0400 Height 182.9 cm Behzad [facility] Work Phone: 06-01-2017 14:30-0400 Pulse (Heart Rate) 82 /min Behzad Zacherya [facility] Work Phone: 06-01-2017 14:30-0400 Weight 144.7 kg Behzda [facility] Work Phone: Encounters Encounter Date Encounter Type Care Provider Facility Start: 04-02-2023 End: 04-03-2023 ambulatory [facility] Start: 04-02-2023 End: 04-02-2023 Subsequent hospital visit by physician Loli Matias MD Work Phone: [facility] Laboratory Comment on above: Acquired hypothyroid ism Start: 11-10-2022 End: 11-13-2022 ambulatory [facility] Start: 11-10-2022 End: 11-12-2022 Subsequent hospital visit by physician [facility] Ultrasound Comment on above: Acquired hypothyroid ism Start: 11-06-2022 End: 02-15-[address] DREW MCBRIDE Facility: Start: 01-13-2022 End: 01-15-2022 Subsequent hospital visit by physician Loli Matias MD Work Phone: [facility] Start: 11-19-2020 End: 11-19-2020 Billy Ramirez Work Phone: [facility] Start: 09-20-2019 End: 09-20-2019 Documentation procedure Behzad Rajendrasinh Rana Work Phone: [facility] Start: 09-18-2019 End: 09-18-2019 Documentation procedure Behzad Rajendrasinh Rana Work Phone: [facility] Start: 09-12-2019 End: 09-12-2019 Patient encounter procedure BEHZAD RAJENDRASINH RANA [facility] Ambulatory Start: 09-12-2019 End: 09-12-2019 Office outpatient visit 15 minutes Behzad Rajendrasinh Rana Work Phone: [facility] Comment on above: Bariatric surgery [facility] (Primary Dx); Obesity, Class I, BMI 30-34.9 Start: 07-17-2019 End: 07-17-2019 Subsequent hospital visit by physician Loli Matias [facility] Laboratory Comment on above: Epigastric pain; History of pancreatitis Start: 07-14-2019 End: 07-16-2019 Subsequent hospital visit by physician [facility] Ultrasound Comment on above: Thyroid nodule Start: 11-16-2018 End: 11-16-2018 Documentation procedure Behzad Hu Work Phone: [facility] Start: 10-24-2018 End: 10-24-2018 Patient encounter procedure BEHZAD HU [facility] Ambulatory Start: 04-11-2018 End: 04-11-2018 [facility] Start: 11-08-2017 Office/outpatient vi sit, est, level 3 Behzad Berniceharvinder Binghamsamuel Work Phone: [facility] Start: 08-09-2017 End: 08-09-2017 Office outpatient visit 15 minutes Behzad Queenhortensiakristian Zacherysamuel Work Phone: [facility] Comment on above: Bariatric surgery [facility] (Primary Dx) Start: 06-01-2017 Postop follow-up visit Behzad majanokristian Mayte Work Phone: [facility] Start: 04-30-2017 End: 05-02-2017 Evaluation and management of inpatient [facility] Start: 04-30-2017 Ambulatory JOSE DRAPER [facility] Start: 04-23-2017 End: 04-27-2017 Ambulatory [facility] Start: 04-05-2012 End: 08-15-2018 Patient encounter procedure Loli Matias MD Work Phone: [facility] Procedures Date Procedure Procedure Detail Performing Clinician Start: 04-02-2023 Assay of thyroid stimulating hormone tsh Loil Matias MD Work Phone: Start: 11-10-2022 Us soft tissue head & neck real time imge docm Nissa Lo [employer]IST Work Phone: Start: 09-13-2019 EXT LAB FERRITIN [...] DTaP/Tdap/Td vaccine (3 - Td or Tdap) [facility] Start: 05-30-2024 DTaP/Tdap/Td vaccine (3 - Td) DTaP/Tdap/Td vaccine (3 - Td) [place] Start: 05-30-2024 DTaP/Tdap/Td vaccine (7 - Td or Tdap) DTaP/Tdap/Td vaccine (7 - Td or Tdap) [facility] Start: 05-30-2024 Tetanus vaccination [facility] Start: 03-24-2024 Depression Screen Depression Screen [facility] Start: 11-18-2022 Depression Screen Depression Screen [facility] Start: 11-18-2022 Thyroid stimulating hormone measurement TSH testing [facility] Start: 2021 Diabetes screen Diabetes screen [facility] Start: 03-28-2021 COVID-19 Vaccine (3 - Booster for Moderna series) COVID-19 Vaccine (3 - Booster for Moderna series) [facility] Start: 09-28-2020 Cervical cancer screen Cervical canc er screen [place], [place] Start: 09-28-2020 Screening for malign ant neoplasm of cervix [facility] Start: 06-18-2020 Influenza vaccinatio n given Sequential Influenza Vaccine (#1) [facility] Start: 06-18-2019 Influenza vaccination Flu vaccine (# 1) [place], [place] Start: 06-18-2019 Influenza vaccinatio n given SEQUENTIAL INFLUENZA VACCINE (#1) [facility] Start: 04-24-2019 End: 04-24-2019 Office Visit 04/24/2019 Office Visit Behzad Rockwell MD [address] [address] [phone] [facility] Start: 08-05-2018 TSH testing TSH testing [facility] [place], [place] Start: 06-18-2018 Influenza vaccinatio n given SEQUENTIAL INFLUENZA VACCINE (#1) [facility] Start: 05-02-2018 Ambulatory 05/02/2018 Off ice Visit Behzad Rockwell MD [address] [place] [address] [phone] [facility] Start: 11-01-2017 Ambulatory 11/01/2017 Off ice Visit Behzad Rockwell MD [address] [address] [phone] [facility] Start: 08-02-2017 Ambulatory 08/02/2017 Off ice Visit Behzad Rockwell MD [address] [place] [address] [phone] [facility] Start: 06-18-2017 Influenza vaccination SEQUENTI AL INFLUENZA VACCINE (#1) [facility] Work Phone: Start: 06-18-2017 SEQUENTIAL INFLUENZA VACCINE (#1) SEQUENTIAL INFLUENZA VACCINE (#1) [facility] Work Phone: Start: 2016 Screening for malign ant neoplasm of cervix HPV (without or with Pap) [facility] Start: 2004 Hepatitis C antibody , confirmatory test Hepatitis C Screening [facility] Start: 2004 Hepatitis C screening Hepatitis C sc reen [facility] Start: 10-04-2002 Hepatitis A vaccine (2 of 2 - 2-dose series) Hepatitis A vaccine (2 of 2 - 2-dose series) [facility] Start: 2001 HIV screen HIV screen [facility] [place] Start: 2001 HIV screening Olga Lala [facility] Start: 12-25-1999 Varicella Vaccine (1 of 2 - 13+ 2-dose series) Varicella Vaccine (1 of 2 - 13+ 2-dose series) [place], [place] Start: 1998 Adolescent depressio n screening assessment Depression Screening (PHQ9) [facility] Start: 1989 History and physical examination, annual for health maintenance Wellness Visit [facility] Start: 12-25-1987 Varicella vaccine (1 of 2 - 2-dose childhood series) Varicella vaccine (1 of 2 - 2-dose childhood series) [facility] Start: 1986 Cytopathology procedure, preparation of smear, genital source PAP SMEAR [facility] Work Phone: Start: 1986 Hepatitis C screening Hepatitis C sc reen [facility] Start: 1986 Screening for malign ant neoplasm of cervix PAP SMEAR [facility] Work Phone: Start: 1986 TETANUS EVERY 10 YR TETANUS EVERY [address] [facility] Work Phone: Start: 1986 Tetanus vaccination TETANUS EVERY [address] [facility] Work Phone: End: 09-12-2020 Blood zinc measurement Zinc Lab Routine Bariatric surgery status 1 Occurrences starting 09/12/2019 until 09/12/2020 [facility] Comment on above: 1 Occurrences starti ng 09/12/2019 until 09/12/2020 End: 08-10-2018 CBC and Differential CBC and Differential Routine Bariatric surgery status 1 Occurrences starting 08/09/2017 until 08/10/2018 [facility] Work Phone: Comment on above: 1 Occurrences starti ng 08/09/2017 until 08/10/2018 End: 08-10-2018 Ceruloplasmin Ceruloplasmin Routine Bariatric surgery status 1 Occurrences starting 08/09/2017 until 08/10/2018 [facility] Work Phone: Comment on above: 1 Occurrences starti ng 08/09/2017 until 08/10/2018 End: 09-12-2020 Cobalamin (Vitamin B12) [Mass/Vol] Vitamin B12 Lab Routine Bariatric surgery status 1 Occurrences starting 09/12/2019 until 09/12/2020 [facility] Comment on above: 1 Occurrences starti ng 09/12/2019 until 09/12/2020 End: 08-10-2018 Cobalamin (Vitamin B12) mass conc Vitamin B12 Routine Bariatric surgery status 1 Occurrences starting 08/09/2017 until 08/10/2018 [facility] Work Phone: Comment on above: 1 Occurrences starti ng 08/09/2017 until 08/10/2018 End: 08-10-2018 Comprehensive metabolic 2000 panel Comprehensive Metabolic Panel Routine Bariatric surgery status 1 Occurrences starting 08/09/2017 until 08/10/2018 [facility] Work Phone: Comment on above: 1 Occurrences starti ng 08/09/2017 until 08/10/2018 External Lab Iron External Lab I amanda Routine 11/12/2018 [facility] End: 08-09-2018 Ferritin [Mass/volume] in Serum or Plasma Ferritin Routine Bariatric surgery status 1 Occurrences starting 08/09/2017 until 08/09/2018 [facility] Work Phone: Comment on above: 1 Occurrences starti ng 08/09/2017 until 08/09/2018 End: 08-10-2018 Folate Folate Routine Bariatric surgery status 1 Occurrences starting 08/09/2017 until 08/10/2018 [facility] Work Phone: Comment on above: 1 Occurrences starti ng 08/09/2017 until 08/10/2018 End: 09-12-2020 Folate [Mass/Vol] Folate Lab Routine Bariatric surgery status 1 Occurrences starting 09/12/2019 until 09/12/2020 [facility] Comment on above: 1 Occurrences starti ng 09/12/2019 until 09/12/2020 End: 08-10-2018 Hemoglobin A1c/Hemoglobin.total mass fraction (Bld) Hemoglobin A1c Routine Bariatric surgery status 1 Occurrences starting 08/09/2017 until 08/10/2018 [facility] Work Phone: Comment on above: 1 Occurrences starti ng 08/09/2017 until 08/10/2018 End: 09-12-2020 Iron measurement Iron Study with Ferritin Lab Routine Bariatric surgery status 1 Occurrences starting 09/12/2019 until 09/12/2020 [facility] Comment on above: 1 Occurrences starti ng 09/12/2019 until 09/12/2020 End: 08-10-2018 Lipid panel Lipid Panel Routine Bariatric surgery status 1 Occurrences starting 08/09/2017 until 08/10/2018 [facility] Work Phone: Comment on above: 1 Occurrences starti ng 08/09/2017 until 08/10/2018 End: 08-10-2018 PTH, Intact PTH, Intact Routine Bariatric surgery status 1 Occurrences starting 08/09/2017 until 08/10/2018 [facility] Work Phone: Comment on above: 1 Occurrences starti ng 08/09/2017 until 08/10/2018 End: 09-12-2020 Pyridoxal 5 phosphate level Vitamin B6 Lab Routine Bariatric surgery status 1 Occurrences starting 09/12/2019 until 09/12/2020 [facility] Comment on above: 1 Occurrences starti ng 09/12/2019 until 09/12/2020 End: 08-10-2018 Reticulocytes panel - Blood Reticulocyte Routine Bariatric surgery status 1 Occurrences starting 08/09/2017 until 08/10/2018 [facility] Work Phone: Comment on above: 1 Occurrences starti ng 08/09/2017 until 08/10/2018 End: 09-12-2020 Thiamine measurement Vitamin B1, Whole Blood Lab Routine Bariatric surgery status 1 Occurrences starting 09/12/2019 until 09/12/2020 [facility] Comment on above: 1 Occurrences starti ng 09/12/2019 until 09/12/2020 End: 08-10-2018 Thyrotropin Qn TSH Routine Bariatric surgery status 1 Occurrences starting 08/09/2017 until 08/10/2018 [facility] Work Phone: Comment on above: 1 Occurrences starti ng 08/09/2017 until 08/10/2018 End: 04-02-2023 Thyroxine (T4) free [Mass/volume] in Serum or Plasma [facility] Comment on above: 1 Occurrences starti ng 04/02/2023 until 04/02/2023 End: 08-10-2018 Vitamin A Vitamin A Routine Bariatric surgery status 1 Occurrences starting 08/09/2017 until 08/10/2018 [facility] Work Phone: Comment on above: 1 Occurrences starti ng 08/09/2017 until 08/10/2018 End: 09-12-2020 Vitamin A measurement Vitamin A Lab Routine Bariatric surgery status 1 Occurrences starting 09/12/2019 until 09/12/2020 [facility] Comment on above: 1 Occurrences starti ng 09/12/2019 until 09/12/2020 End: 08-10-2018 Vitamin B1, Whole Blood Vitamin B1, Whole Blood Routine Bariatric surgery status 1 Occurrences starting 08/09/2017 until 08/10/2018 [facility] Work Phone: Comment on above: 1 Occurrences starti ng 08/09/2017 until 08/10/2018 End: 08-10-2018 Vitamin B6 Vitamin B6 Routine Bariatric surgery status 1 Occurrences starting 08/09/2017 until 08/10/2018 [facility] Work Phone: Comment on above: 1 Occurrences starti ng 08/09/2017 until 08/10/2018 End: 09-12-2020 Vitamin D, 25-hydroxy measurement Vitamin D, Total, 25-OH Lab Routine Bariatric surgery status 1 Occurrences starting 09/12/2019 until 09/12/2020 [facility] Comment on above: 1 Occurrences starti ng 09/12/2019 until 09/12/2020 End: 08-10-2018 Vitamin D, Total, 25-OH Vitamin D, Total, 25-OH Routine Bariatric surgery status 1 Occurrences starting 08/09/2017 until 08/10/2018 [facility] Work Phone: Comment on above: 1 Occurrences starti ng 08/09/2017 until 08/10/2018 End: 08-10-2018 Zinc Zinc Routine Bariatric surgery status 1 Occurrences starting 08/09/2017 until 08/10/2018 [facility] Work Phone: Comment on above: 1 Occurrences starti ng 08/09/2017 until 08/10/2018 Immunizations Immunization Date Immunization Notes Care Provider [facility] 07-23-2022 influenza, injectabl e, quadrivalent, preservative free Loli Matias MD Work Phone: [facility] 09-10-2021 influenza virus vaccine, unspecified formulation Loli Matias MD Work Phone: [facility] Work Phone: 10-28-2020 COVID-19, Moderna, Primary or Immunocompromised, PF, 100mcg/0.5mL Loli Matias MD Work Phone: [facility] Work Phone: 10-28-2020 COVID-19, Pfizer Pur ple top, DILUTE for use, 12+ yrs, 30mcg/0.3mL dose Loli Matias MD Work Phone: [facility] Work Phone: 10-04-2020 COVID-19, Moderna, Primary or Immunocompromised, PF, 100mcg/0.5mL Loli Matias MD Work Phone: [facility] Work Phone: 10-04-2020 COVID-19, Pfizer Pur ple top, DILUTE for use, 12+ yrs, 30mcg/0.3mL dose Loli Matias MD Work Phone: [facility] 08-04-2017 tuberculin skin test ; purified protein derivative solution, intradermal [facility], [place] 08-04-2017 unknown vaccine or immune globulin Loli Matias MD Work Phone: [facility] 05-30-2014 tetanus toxoid, redu rachael diphtheria toxoid, and acellular pertussis vaccine, adsorbed [facility], [place] 04-05-2012 tetanus toxoid, redu rachael diphtheria toxoid, and acellular pertussis vaccine, adsorbed [facility] 04-05-2012 tuberculin skin test ; purified protein derivative solution, intradermal [facility] [place] 02-24-2006 hepatitis B vaccine, pediatric or pediatric/adolescent dosage Loli Matias MD Work Phone: [facility] 10-26-2005 hepatitis B vaccine, pediatric or pediatric/adolescent dosage Loli Matias MD Work Phone: [facility] 09-24-2005 hepatitis B vaccine, pediatric or pediatric/adolescent dosage Loli Matias MD Work Phone: [facility] 04-04-2002 hepatitis A and hepatitis B vaccine Loli Matias MD Work Phone: [facility] 04-04-2002 TD(adult) unspecifie d formulation Loli Matias MD Work Phone: [facility] 01-28-1999 measles, mumps and rubella virus vaccine Loli Matias MD Work Phone: [facility] 04-17-1992 diphtheria, tetanus toxoids and acellular pertussis vaccine, unspecified formulation Loli Matias MD Work Phone: [facility] 05-06-1988 diphtheria, tetanus toxoids and pertussis vaccine Loli Matias MD Work Phone: [facility] 05-06-1988 measles, mumps and rubella virus vaccine Loli Matias MD Work Phone: [facility] 01-01-1988 diphtheria, tetanus toxoids and pertussis vaccine Loli Matias MD Work Phone: [facility] 05-01-1987 diphtheria, tetanus toxoids and pertussis vaccine Loli Matias MD Work Phone: [facility] Payers Date Payer Category Payer Unknown [id number] 2022 Unknown [id number] 2019 Unknown BCBS [place] P PO [id number] 2019-Present [phone] [address] [place] [address] [id number] 2019 Unknown [facility] [place] CE PLUS [id number] 2019-Present [id number] 2018 Unknown [id number] 2018 Private Health Insurance [employer]ET[employer] A ETNA CHOICE POS/POSII/PREMIER CARE/PREMIER CARE PLUS xxxxxxxxxx 2018-Present xxxxxxxxxx [id number] 2018 Private Health Insurance [id number] 2017 Unknown [id number] 3 2017 Unknown [id number] 1986 Unknown [id number] 1986 Unknown [id number] 1986 Unknown [id number] 1986 Unknown [id number] 1986 Unknown [id number] 1986 Unknown [id number] 1959 Self-pay 1959 Unknown [id number] Unknown [id number] 3 Social History Date Type Detail Facility Start: 06-01-2017 End: 03-24-2023 Tobacco smoking status CTIS Never smoker [facility] Work Phone: Start: 1985 Sex Assigned At Not on file O [facility] Work Phone: Start: 04-26-2019 End: 07-17-2019 Alcohol intake No [employer] [place], [place] Start: 09-12-2019 End: 03-24-2023 Alcohol intake Current non-drinker of alcohol (finding) [facility] Start: 09-12-2019 End: 03-24-2023 Tobacco use and exposure Never used [facility] Start: 01-13-2022 Alcohol intake [employer] Work Phone: Start: 11-18-2021 History SDOH Financial 5 [employer] Work Phone: Start: 11-18-2021 End: 03-24-2023 History SDOH Food Worry 1 [employer] Phone: Start: 03-24-2023 History SDOH Financial 4 [facility] Start: 03-24-2023 History SDOH Transpo rt Non-Med 2 [facility] Medical Equipment Procedure Code Equipment Code Equipment Origin al Text Equipment Identifier Dates Kit 4ml Vh S/D Tisseel Frozen - [id number] Start: 04-30-2017 Strip Ech 60 Pranav nf Bovine Dorothy-Strips Dry W/Veritas - [id number] Start: 04-30-2017 Kit 4ml Vh S/D Tisseel Frozen - [id number] Start: 04-30-2017 Strip Ech 60 Pranav nf Bovine Dorothy-Strips Dry W/Veritas - [id number] Start: 04-30-2017 Kit 4ml Vh S/D Tisseel Frozen - [id number] Start: 04-30-2017 Strip Ech 60 Pranav nf Bovine Dorothy-Strips Dry W/Veritas - [id number] Start: 04-30-2017 Kit 4ml Vh S/D Tisseel Frozen - [id number] Start: 04-30-2017 Strip Ech 60 Pranav nf Bovine Dorothy-Strips Dry W/Veritas - [id number] Start: 04-30-2017 Kit 4ml Vh S/D Tisseel Frozen - [id number] Start: 04-30-2017 Strip Ech 60 Pranav nf Bovine Dorothy-Strips Dry W/Veritas - [id number] Start: 04-30-2017 Kit 4ml Vh S/D Tisseel Frozen - [id number] Start: 04-30-2017 Comment on above: Description: 8ml use d ( 2-4ml kits) Clarification for billing purpose 8 ml = 4 used 0 wasted Strip Ech 60 Pranav nf Bovine Dorothy-Strips Dry W/Veritas - [id number] Start: 04-30-2017 Comment on above: Description: Charge Only Kit 4ml Vh S/D Tisseel Frozen - [id number] Start: 04-30-2017 Strip Ech 60 Pranav nf Bovine Dorothy-Strips Dry W/Veritas - [id number] Start: 04-30-2017 Kit 4ml Vh S/D Tisseel Frozen - [id number] Start: 04-30-2017 Strip Ech 60 Pranav nf Bovine Dorothy-Strips Dry W/Veritas - [id number] Start: 04-30-2017 Evaluation note Note Date & Type Note Facility Evaluation note Diagnosis Acquired hypothyroidism Unspecified hypothyroidism documented in this encounter [facility] [employer] Phone: Evaluation note Note Date & Type Note Facility Evaluation note Diagnosis Acquired hypothyroidism [facility]specified [facility] Bariatric surgery status - P [...] FoundDocuments on File Type Date 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 Advance Directives and Living Will Latest Code Status on File Code Status Date Activated Date Inactivated Comments Full Code 04/30/2017 12:41 PM 05/02/2017 7:17 PM Documents on File Type Date 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 [facility] POSTOP BARIATRIC VISIT [...] W/ BIOPSY; Surgeon: Behzad Hu MD; Location: [facility]; Service: GASTRIC SLEEVE BYPASS LAPAROSCOPIC WITH EGD N/A 04/30/2017 Procedure: LAPAROSCOPIC SLEEVE GASTRECTOMY HIATAL HERNIA REPAIR LIVER BIOPSY ESOPHAGOGASTRODUODENOSCOPY; Surgeon: Behzad Hu MD; Location: [facility] Main OR; Service: Social History Social History [...] (40 mg total) by mouth daily. pediatric dlmdxarr-vpxn-upc (flintstones complete) Chew Chew and Swallow Take [...] Hu MD - 09/12/2019 4:49 PM EST [facility] POSTOP BARIATRIC VISIT [...] W/ BIOPSY; Surgeon: Behzad Hu MD; Location: [facility]; Service: GASTRIC SLEEVE BYPASS LAPAROSCOPIC WITH EGD N/A 04/30/2017 Procedure: LAPAROSCOPIC SLEEVE GASTRECTOMY HIATAL HERNIA REPAIR LIVER BIOPSY ESOPHAGOGASTRODUODENOSCOPY; Surgeon: Behzad Hu MD; Location: [facility] Main OR; Service: Social History Socioeconomic History [...] file Gets together: Not on file Attends worship service: Not on file Active member of [...] HEAD/NECK TISSUES,REAL TIME Loli Matias MD [address] [place] [address] Specialty Diagnoses / Procedures Referred By Contac t Referred To Contact Radiology Diagnoses Acquired hypothyroidism Procedures US HEAD NECK SOFT TISSUE THYROID Nissa Lo APRN - JULES [address] [address] Referral ID Status Reason Start Date Expiration Date V isits Requested Visits Authorized [id number] Pending Review 11/09/2022 11/09/2023 1 1 Hospital [...] ALVARADO DO Consulting Physician - CAPRICE GUSTAFSON, [facility] Course Pt is a 33 F [...] All Problems Ovarian dysfunction / SNOMED CT 97832596 / Confirmed Hypothyroidism / SNOMED CT 47201060 / Confirmed Pancreatitis / SNOMED CT 856022588 / Confirmed Physical Examination Vital Signs 07/18/2019 [...] All Problems Ovarian dysfunction / SNOMED CT 26381246 / Confirmed Hypothyroidism / SNOMED CT 50505193 / Confirmed Incomplete miscarriage / SNOMED CT 109844797 / Confirmed missed Pancreatitis / SNOMED CT 386231146 / Confirmed Physical Examination Vital Signs 10/20/2019 [...] All Problems Ovarian dysfunction / SNOMED CT 81919856 / Confirmed Hypothyroidism / SNOMED CT 04320257 / Confirmed Pancreatitis / SNOMED CT 871052788 / Confirmed Physical Examination Vital Signs 07/18/2019 [...] All Problems Ovarian dysfunction / SNOMED CT 12204087 / Confirmed Hypothyroidism / SNOMED CT 04213076 / Confirmed Incomplete miscarriage / SNOMED CT 475805091 / Confirmed missed Pancreatitis / SNOMED CT 614369658 / Confirmed Physical Examination Vital Signs 10/20/2019 [...] section and content) DATE CREATED AUTHOR 04/15/2018 [facility] DATE CREATED AUTHOR AUTHOR'S ORGANIZ ATION 07/23/2019 [facility] DATE CREATED AUTHOR AUTHOR'S ORGANIZ ATION 09/13/2019 [facility] DATE CREATED AUTHOR AUTHOR'S ORGANIZ ATION 06/18/2020 [facility] DATE CREATED AUTHOR AUTHOR'S ORGANIZ ATION 02/14/2023 [facility] DATE CREATED AUTHOR AUTHOR'S ORGANIZ [...] HEAD/NECK TISSUES,REAL TIME Loli Matias MD [address] [place] [address] Reason Comments Follow-up GS 04/30/17. Prop wt: 350. 10/24/18 229lbs 09/12/19 wt= 240lbs Reason Onset Date Comments Medication Refill 11/19/2020 Specialty Diagnoses / Procedures Referred By Contac t Referred To Contact Radiology Diagnoses Acquired hypothyroidism Procedures US HEAD NECK SOFT TISSUE THYROID Nissa Lo, PAROLE SUPERVISOR - PRIVACY SPECIALIST [address] [place] [address] Referral ID Status Reason Start Date Expiration Date V isits Requested Visits Authorized [id number] Pending Review 11/09/2022 11/09/2023 1 1 Care Teams (unrecognized sec tion and content) Cold Patcher Relationship Specialty Start Date End Date Loli Matias MD [address] [place] [address] PCP - General 07/24/16 Cold Patcher Relationship Specialty Start Date End Date Loli Matias MD [address] [place] [address] PCP - General 07/24/16 Cold Patcher Relationship Specialty Start Date End Date Loli Matias MD [address] [place] [address] PCP - General 07/24/16 FOR RECORDS [...] BE BASED ON THE PRIMARY CLINICAL RECORDS. [employer] [facility]. provides no warranty or guarantee of the accuracy or completeness of information in this document.
== END 2024-03-01 07:32 | disposition home or self-care (01) ==
LOC: VC 07:31
PROVIDERS: PCP Radiology Diagnostic Radiology; Visit Provider Radiology Diagnostic Radiology
DX: I83.813 Varicose veins of bilateral lower extremities with pain (principal)
CPT/HCPCS: 36471

== ENCOUNTER 2024-03-27 07:24 | Outpatient (OUT) | payer OTHER, SELFPAY ==
--- NOTE | 2024-03-27 07:25 | VEIN_ITS ---
[address] [address] Patient Name: SUKHDEV WATERMAN MRN: [id number] date: 1985 Sex: F Assigned Patient Location: Current Patient Location: Accession/Order Number: [id number] Exam Date: 03/27/2024 07:27 Report Date: 03/27/2024 08:32 At the request of: DREW MCBRIDE Procedure: VC INJ Sclerosing SOLMULT Vein EXAMINATION: VC INJ Sclerosing SOLMULT Vein HISTORY: I83.813 Bilateral leg painful varicose veins COMPARISON: No relevant comparison available. TECHNIQUE: The risks and benefits of the procedure were explained at length to the patient and informed written consent was obtained. Jose Escalante was present and assisted. The procedure was performed under sterile technique. The patient's leg was wrapped with Coban and postprocedural verbal and written instructions provided. SCLEROSANT: 4 cc, 0.5% polidocanol VEIN(S) INJECTED: 24 veins in the left leg VISUALIZATION: Ultrasound was not used to visualize the sclerosant ANESTHESIA: Supercooled air COMPLICATIONS: None VEIN/VC INJ Sclerosing SOLMULT Vein IMPRESSION: Technically successful sclerotherapy as described Electronically authenticated by: DREW MCBRIDE Date: 03/27/2024 08:32
--- OUTSIDE RECORDS SUMMARY | 2024-03-27 07:31 | XMS_ITS | CCD ---
Author Organization [facility] CliniSyin Care Team Providers Care Slab Polisher Name Role Phone Unavailable Unavailable Unavailable Loli Matias Unavailable Unavailable RANA, BEHZAD RAJENDRASINH Unavailable Unavail able LOLI MATIAS Unavailable Unavailable ARAYATAMELA WITT ANNMARIE Unavailable Unavailable STICKEL, JOSE Unavailable Unavailable LOLI MATIAS Unavailable Unavailable RANA, BEHZAD RAJENDRASINH Unavailable Unavail able RANA, BEHZAD RAJENDRASINH Unavailable Unavail able LOLI MATIAS Unavailable Unavailable FARAZ ROMERO Unavailable Unavailable LOLI MATIAS Unavailable Unavailable Loli Matias Primary Care Provider Unavaila ble Loli Matias Primary Care Provider Loli Matias Primary Care Provider RANA, BEHZAD RAJENDRASINH Attending Unavail able LOLI MATIAS Primary Care Unavailable RANA, BEHZAD RAJENDRASINH Attending Unavail able LOLI MATIAS Primary Care Unavailable Loli Matias Primary Care Provider Loli Matias MD Primary Care Provider Loli Matias MD Primary Care Provider DR DREW MCBRIDE V Attending Unavailable REED, DR DREW Baez Consulting Unavailable REED, DR DREW Baez Admitting Unavailable REED, DR DREW Baez Attending Unavailable REED, DR DREW Baez Consulting Unavailable REED, DR DREW Baez Admitting Unavailable Loli Matias MD Primary Care Provider LOLI MATIAS Primary Care Unavailable NISSA LO Referring Unavailable LOLI MATIAS Referring Unavailable LOLI MATIAS Primary Care Unavailable LOLI MATIAS Primary Care Physician LOLI MATIAS Attending Unavailable LOLI MATIAS Admitting Unavailable Allergies Allergy Classification Reported Allergen(s) Allergy Type Date of Onset Reaction(s) Facility (3 sources) bee pollen Propensity to adverse reactions to drug 9 [place] (5 sources) levoFLOXacin Drug Allergy 9 [place] (3 sources) Penicillins Propensity to adverse reactions to drug 2 [place] (3 sources) Seasonal allergy Propensity to adverse reactions to substance 2 [facility] (2 sources) Penicillins Propensity to adverse reactions to drug 2 [facility] (2 sources) Pollen Propensity to adverse reactions to drug 9 [facility] Work Phone: (1 source) levoFLOXacin; Translations: [levofloxacin] Drug Allergy Liver damage (disorder) [facility] (1 source) Pollen Allergy to substance Allergic rhinitis due to pollen (disorder) [facility] Medications Current Medications Medication Drug Class(es) Dates [...] tablet by mouth daily 02/06/2016 Active biotin (14 sources) Start: 10-17-2019 take 09870 ug by mouth once daily biotin 10,000mcg, Oral, Daily, Refills(s) 0, Prophylaxis Start Date: 10/17/19 Status: Ordered BIOTIN PO Take b y mouth 0 [...] Active docusate sodium 50 mg / sennosides, half-way 8.6 mg oral tablet (3 sources) take [...] times daily. 28.35 g 3 03/24/2023 Active ibuprofen 600 mg oral tablet (1 source) Nonsteroidal Anti-inflammatory Drug Start: 10-20-2019 take 1 tablet by mouth every six hours ibuprofen 600 mg Tab 600 mg = 1 tab(s), Oral, q6hr, # 15 tab(s), Refills(s) 0, Pharmacy: [facility] [place] #16 Start Date: 10/20/19 Status: Ordered loratadine 10 mg oral tablet (4 sources) Start: 03-27-2019 loratadine (CLARITIN) 10 MG [...] Active Start: 04-23-2016 [facility] hours as needed for nausea ondansetron (ZOFRAN) 4 MG tablet Take 2 tablets by mouth every 8 hours as needed for Nausea or Vomiting 20 tablet 0 04/23/2016 Active pantoprazole 40 mg delayed release oral tablet (8 sources) Proton Pump Inhibitor Start: 11-06-2022 take 1 tablet by mouth once daily pantoprazole (PROTONIX) 40 MG tablet Indications: Gastroesophageal reflux disease without esophagitis TAKE 1 TABLET BY MOUTH EVERY DAY 90 tablet 0 11/06/2022 Active Start: 11-18-2021 take 1 tablet by rosalino th once daily pantoprazole (PROTONIX) 40 MG tablet Indications: Gastroesophageal reflux disease without esophagitis TAKE 1 TABLET BY MOUTH EVERY DAY 90 tablet 1 11/18/2021 Active Start: 05-27-2020 Protonix 20 mg Tab-DR 20 mg = 1 tab(s), Refills(s) 0, Control of stomach acid Start Date: 05/27/20 Status: Ordered Start: 05-20-2020 End: 05-20-2021 take 1 tablet [...] daily. 30 tablet 0 05/02/2017 06/01/2017 Active Multivitamins (1 source) Start: 10-17-2019 take 1 tablet by mouth once daily Multivitamins 1 tab(s), Oral, Daily, Refill(s) 0, Prophylaxis Start Date: 10/17/19 Status: Ordered vitamin with Ca-Iron-FA 27-1 mg Tab (9 [...] Active levothyroxine sodium 0.05 mg oral tablet (18 sources) l-Thyroxine Start: 11-06-2022 take 1 tablet [...] breakfast) 90 tablet 1 11/18/2021 Active Start: 03-27-2019 take 1 tablet by rosalino th once daily levothyroxine 50 mcg (0.05 mg) Tab 50 microgram = 1 tab(s), Oral, Daily, Refills(s) 0, Thyroid Start Date: 03/27/19 Status: Ordered Start: 02-06-2016 take 1 tablet by rosalino th once daily before breakfast levothyroxine (SYNTHROID) 50 MCG tablet Take 1 tablet by mouth every morning (before breakfast) 90 tablet 1 04/14/2019 Active vitamin B 12 (18 sources) Vitamin B12 Start: 10-17-2019 Vitamin B-12 5 ,000 microgram, Oral, Daily, Refills(s) 0, Prophylaxis Start Date: 10/17/19 Status: Ordered cyanocobalamin ( vitamin B-12) 1000 MCG tablet Take 1,000 mcg by mouth daily She is taking 500 sl. Cutting in half. . 0 Active take 1000 [IU] by mouth once [place] Cyanocobalamin (VITAMIN B 12 PO) Take 1,000 Units by mouth daily 0 Active vitamin e 400 unt oral tablet (9 sources) take 1 capsule by mo uth once daily vitamin E 400 UNIT capsule Take 400 Units by mouth daily . 0 Active take 1 capsule by mouth once [place] vitamin E 400 UNIT capsule Take 400 Units by mouth daily . 0 Active Completed/Discontinued Medications Medication Drug Class(es) Dates Sig (Normalized) Sig (Original) pediatric pfutulum-sgoz-ahu (flintstones complete) Chew (2 sources) pediatric ksuvahnp-scxk-fvd (flintstones complete) Chew Chew and Swallow Take two daily . Active Pediatric Multivitamin With Iron And Other Minerals Chewable Tablet (1 source) pediatric cswkskfy-ffbo-ycw (flintstones complete) Chew Chew and Swallow Take two daily . Active Vitamin D3 5000 intl units oral capsule (1 source) Start: 03-27-2019 take 1 capsule by mouth once daily at mealtime Vitamin D3 5000 intl units oral capsule 5,000 International_Unit = 1 cap(s), Oral, Daily, with food, # 100 cap(s), Refills(s) 0, Prophylaxis Start Date: 03/27/19 Status: Ordered Problems Active Problems Problem Classification Problem Date Documented Da te Episodic/Chronic Esophageal disorders (5 sources) Gastroesophageal reflux disease without esophagitis; Translations: [Gastro-esophageal reflux disease without esophagitis] Onset: 7 01-21-2017 Chronic Essential hypertension (7 sources) Essential (primary) hypertension; Translations: [Hypertensive disorder] Onset: 2 09-07-2012 Chronic Other endocrine disorders (2 sources) Ovarian dysfunction, unspecified; Translations: [Ovarian dysfunction, unspecified] Onset: 8 Chronic Other endocrine disorders (1 source) 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 Other gastrointestinal disorders (1 source) History [...] for screening, unspecified] Onset: 9 09-21-2019 Episodic Pancreatic disorders (not diabetes) (1 source) Pancreatitis 06-12-2019 Episodic Spontaneous (1 source) Incomplete miscarriage 10-17-2019 Episodic Comment on above: missed Thyroid disorders (10 sources) Thyroid nodule; Translations: [Acquired hypothyroidism] Onset: [...] gynecological exam] Onset: 04-05-2012 Resolved: 08-15-2018 08-15-2018 Unclassified (4 sources) Onset: 11-18-2018 Resolved: 05-27-2020 05-27-2020 Urinary tract infections (5 sources) Lower urinary tract infectious disease; Translations: [Urinary tract infection, site not specified] Onset: 07-05-2012 Resolved: 08-04-2017 08-04-2017 Episodic Results Test Name Value Interpretation Reference Range Facility CHEMISTRYOrdered By: SYSTEM SYSTEM on 03-17-2024 Albumin [Mass/Vol] 4.0 g/dL Normal 3.3 - 5.0 gm/dL [facility] Albumin/Globulin [Mass ratio] 1.3 {ratio} Normal 1.1 - 2.2 [facility] ALP [Catalytic activity/Vol] 52 [iU]/d Normal 21 - 98 Int._Unit/L [facility] ALT No additional P-5'-P [Catalytic activity/Vol] 8 [iU]/d Normal 6 - 46 Int._Unit/L [facility] Anion gap [Moles/Vol] 11 mmol/L Normal 6 - 16 mEq/L [facility] AST [Catalytic activity/Vol] 12 [iU]/d Normal 5 - 43 Int._Unit/L [facility] Bilirubin [Mass/Vol] 0.4 mg/dL Normal 0.0 - 1.1 mg/dL [facility] Calcium [Mass/Vol] 8.9 mg/dL Normal 8.9 - 11. 1 mg/dL [facility] Chloride [Moles/Vol] 107 mmol/L Normal 101 - 111 mmol/L [facility] Cholesterol [Mass/Vol] 181 mg/dL Normal 120 - 200 mg/dL [facility] Cholesterol in HDL [Mass/Vol] 51 mg/dL Invalid Interpretation Code [facility] Comment on above: Result Comment: '>= 60 LOW RISK' '<= 40 HIGH RISK' Cholesterol in LDL [Mass/Vol] 115 mg/dL Normal <=129mg/dL [facility] Cholesterol in VLDL [Mass/Vol] 28 mg/dL Normal 7 - 40 mg/dL [facility] CO2 [Moles/Vol] 24 mmol/L Normal 21 - 31 mmol/L [facility] Creatinine [Mass/Vol] 0.8 mg/dL Normal 0.5 - 1.3 mg/dL [facility] eGFR 97 mL/min/1.73 m2 Normal >=59mL/min / 1.73 m2 [facility] Free T4 [Mass/Vol] 0.95 ng/dL Normal 0.58 - 1. 64 ng/dL [facility] Globulin (S) [Mass/Vol] 3.2 g/dL Normal 1.4 - 4.0 gm/dL [facility] Glucose [Mass/Vol] 82 mg/dL Normal 55 - 199 mg/dL [facility] Potassium [Moles/Vol] 3.9 mmol/L Normal 3.5 - 5.3 mmol/L [facility] Protein [Mass/Vol] 7.2 g/dL Normal 6.0 - 7.8 gm/dL [facility] Sodium [Moles/Vol] 138 mmol/L Normal 135 - 145 mmol/L [facility] Triglyceride [Mass/Vol] 142 mg/dL Normal <=149mg/dL [facility] TSH Qn 0.93 m[IU]/L Normal 0.34 - 5.60 mcIU/mL [facility] Urea nitrogen [Mass/Vol] 11 mg/dL Normal 5 - 21 mg/dL [facility] Urea nitrogen/Creatinine [Mass ratio] 14 mg/mg Normal 10 - 20 [facility] Free T4on 03-17-2024 Free T4 [Mass/Vol] 0.95 ng/dL Normal 0.58-1.64 [facility] Comment on above: Performed By: #### 2 [id number] #### [facility] Laboratory [address] [place] [address] TSHon 03-17-2024 TSH Qn 0.93 m[IU]/L Normal 0.34-5.60 [facility] Comment on above: Performed By: #### 2 [id number] #### [facility] [address] [place] [address] Thyroxine, Freeon 04-03-2023 Thyroxine, Free 1.4 ng/dL Normal 0.9-1.7 [facility] Comment on above: Performed By: #### F T4 #### [facility] [address] [place] [address] Director Of Operations Support: Jarek Branch MD #### TSH #### [facility] [address] [place] [address] Director Of Operations Support: Drew Lee MD TSHon 04-02-2023 TSH [Mass/Vol] 0.83 [facility] Thyroid Stim. Horm.on 2022 Thyroid Stim. Horm. 0.83 uIU/mL Normal 0.30-5.00 [facility] Comment on above: Performed By: #### F T4 #### [facility] [address] [place] [address] Director Of Operations Support: Jarek Branch MD #### TSH #### [facility] [address] [place] [address] Director Of Operations Support: Drew Lee MD US HEAD NECK SOFT [...] Villafuerte Jr., MD 11/11/22 Final result Normal [facility] No significant findings. No specific follow-up needed. [facility] EXAM: US HEAD NECK S OFT TISSUE THYROID HISTORY: Acquired hypothyroidism COMPARISON: 07/14/2019. FINDINGS: Right lobe: 5.8 x 2.0 x 1.8 cm. Isthmus: 3.2 mm. Left lobe: 4.5 x 1.8 x 1.6 cm. Rim calcified benign 6 x 5 x 5 mm nodule inferior left lobe not significant and stable. 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 Thyroid echogenicity normal. [facility] Manny Villafuerte Jr., MD - 11/11/2022 [...] No significant findings. No specific follow-up needed. [employer] Phone: US HEAD NECK SOFT TISSUE THY ROIDOrdered By: Manny Villafuerte on 11-11-2022 [employer] Phone: US HEAD NECK SOFT TISSUE THY ROIDon 11-10-2022 Radiology Study observation (narrative) [employer] Phone: Coding Summary.on 05-31-2020 Coding Summary. CODING DATE: [address] [facility] STATUS: Home (Routine DC) PAYOR: Leela MEHTAERS: 770 MS-DRG w D&C, aspiration curettage or [...] Conception, Retained, Via Natural or Artificial Opening [id number] Control Bleeding in Davie Grijalva MD 05/27/2020 Genitourinary Tract, Via Natural or Artificial Opening 12312J5 Transfusion of Nonautologous Davie Grijalva MD 05/26/2020 Red Blood Cells into Peripheral Vein, Percutaneous Approach 10960Y0 Transfusion of Nonautologous Davie Grijalva MD 05/26/2020 Red Blood Cells into Peripheral Vein, Percutaneous Approach 98799B8 Transfusion of Nonautologous Davie Grijalva MD 05/26/2020 Red Blood Cells into Peripheral Vein, Percutaneous Approach 90388L5 Transfusion of Nonautologous Davie Grijalva MD 05/26/2020 Red Blood Cells into Peripheral Vein, Percutaneous Approach 22920N7 Transfusion of Nonautologous Davie Grijalva MD 05/26/2020 Frozen Plasma into Peripheral Vein, Percutaneous Approach 49770D3 Transfusion of Nonautologous Davie Grijalva MD 05/26/2020 Frozen Plasma into Peripheral Vein, Percutaneous Approach 35323F3 Transfusion of Nonautologous Davie Grijalva MD 05/27/2020 Red Blood Cells into Peripheral Vein, Percutaneous Approach NOTE: The code number assigned matches the documented diagnosis and / or procedure in the patient's chart. However, the narrative phrase printed from the coding software may appear abbreviated, or result in slightly different terminology. Coded By: Rae Milton Date Saved: 05/31/2020 11:[address] [facility] IntraOperative Documentson 0 05-31-2020 IntraOperative Documents [id number]#[id number]:127 [facility] Consent for Procedure/Surger yon 05-28-2020 Consent for Procedure/Surgery [id number]#1.00CD:127 [facility] Discharge Instructionson Discharge Instructions [id number]#1.00CD:127 [facility] Discharge Instructions Given Worseningon 05-28-2020 Discharge Instructions Given Worsening The following Patient Education Materials have been given to the patient: EducationMaterial Normal [facility] History and Physicalon 05-28 History [...] Davie Grijalva MD, FACOG lkr Dictated: 05/26/2020 #[id number] Typed 05/27/2020 #[id number] cc: Davie Grijalva MD, MICHAEL [facility] Comment on above: Result Comment: Elec tronically Signed By: Rudi GUSTAFSON, Davie Duong\.br\Date and Time Signed: 05/28/20 08:12 EDT Inpatient Clinical Summaryon 05-28-2020 Inpatient Clinical Summary [place] [id number] Clinical Summary Person Information Name: SUKHDEV SCHWARTZ Stacey[facility] Age: 34 Years : 1985 Sex: Female PCP: SONIA GUSTAFSON, LOLI Vela Marital Status: Phone: [phone] Race: White Ethnicity: Non- or Language: Marshallese Visit Id: Visit Reason: Nausea; Dizziness; Vaginal bleeding; VAG BLEEDING Speciality: Acuity: Other Enc Type: Inpatient Med Service: Obstetrics Arrival: 05/26/2020 11:09:13 Discharge: 05/28/2020 08:40:00 Dispo Type: Home ([facility] DC) Address: [address] [place] [id number] Provider Notes: Diagnosis: 1:Miscarriage; 2:Retained products of [...] range between ( 80.0 and 100.0 ) [place] Auto: 6.7 % -- Normal range between ( 4.0 and 14.0 ) MPV: 7.4 fL -- Normal range between ( 6.4 and 10.8 ) Neutro Auto: 68.3 % -- Normal range between ( 36.0 and 75.0 ) Platelet: 278.0 E9/L -- Normal range between ( 150.0 and 500.0 ) WBC: 7.0 E9/L -- Normal range between ( 4.0 and 11.0 ) [place] Absolute: 0.5 E9/L -- Normal range between [...] Follow up: With: Address: When: Dr. Grijalva [phone] Within 1 to 2 weeks Comments: Call for any problems. Patient Education Information: Menorrhagia Normal [facility] Inpatient Patient Summaryon 05-28-2020 Inpatient Patient Summary [place] [id number] Patient Discharge Instructions PERSON INFORMATION Name: SUKHDEV [...] Follow up: With: Address: When: Dr. Grijalva [phone] Within 1 to 2 weeks Comments: Call for any problems. In the event that this physician does not participate in your insurance network, please consult with your insurance company to find a nearby participating provider. Comment: EFREN Bain BRITTANY F, have received the attached [...] hospitalization. HOME CARE INSTRUCTIONS ? Only take ljoa-vgh-gwcimry or prescription medicines as directed by your [...] Document Reviewed: 03/25/2014 ExitCare? Patient Information ?2015 [employer]. This information is not intended to replace advice given to you by your health care provider. Make sure you discuss any questions you have with your health care provider. Medication Leaflets: Thank you for choosing [facility] Normal [facility] IntraOperative Documentson 0 05-28-2020 IntraOperative Documents [id number]#[id number]:127 Normal [facility] Operative Reporton 0 Operative Report [...] Room in stable condition. Davie Grijalva MD, MICHAEL vashti Dictated: 05/27/2020 #[id number] Typed: 05/27/2020 #[id number] cc: Davie Grijalva MD, MICHAEL [facility] Comment on above: Result Comment: Elec tronically Signed By: Rudi GUSTAFSON, Davie Horowitz.yvonne\Date and Time Signed: 05/28/20 08:11 EDT Progress [...] q6hr, # 15 tab(s), Refills(s) 0, Pharmacy: [facility] #16 Documented Medications Documented Multivitamins: 1 tab(s), [...] list: All Problems Pancreatitis / SNOMED CT 974417434 / Confirmed Incomplete miscarriage / SNOMED CT 507470802 / Confirmed missed Ovarian dysfunction / SNOMED CT 65880315 / Confirmed Hypothyroidism / SNOMED CT 00941653 / Confirmed Resolved: / SNOMED CT 469287433 Resolved: / SNOMED CT 254399591 Resolved: / SNOMED CT 720059646 Resolved: / SNOMED CT 333850552 Physical Examination Intake and Output Denies significant n/v and is tolerating p.o. Vital Signs (last 24 hrs) Last Charted Temp Oral 36.7 DegC (MAY 28 08:00) Resp Rate 16 br/min (MAY 28 08:00) SBP 124 mmHg (MAY 28 08:00) DBP 65 mmHg (MAY 28 08:) Weight 109.1 kg (MAY 27) Height 182.8 cm (MAY 27) BMI 32.65 (MAY 27) Pain assessment: Pain [...] 0 . Respiratory: Adequate air exchange with gnosticist of preoperative function.. Cardiovascular: Cardiovascular function is stable and has returned to preoperative levels.. Neurologic: Pt has returned to preoperative baseline.. Review / Management Condition: Stable. Assessment Anesthetic outcome No anesthetic complications noted. Plan Transfer/ Discharge: Patient can be discharged from PACU when criteria met. Condition good. Normal [facility] Comment on above: Result Comment: Elec tronically Signed By: Jerel Martin JR, DO\.br\Date and Time Signed: 05/28/20 12:40 EDT Progress [...] q6hr, # 15 tab(s), Refills(s) 0, Pharmacy: [facility] [place] #16 Documented Medications Documented Multivitamins: 1 tab(s), [...] list: All Problems Pancreatitis / SNOMED CT 458049503 / Confirmed Incomplete miscarriage / SNOMED CT 289043293 / Confirmed missed Ovarian dysfunction / SNOMED CT 60312743 / Confirmed Hypothyroidism / SNOMED CT 02415852 / Confirmed Physical Examination Intake and Output Denies significant n/v and is tolerating p.o. Vital Signs (last 24 hrs) Last Charted Temp Tympanic L 35.9DegC (MAY 26:14) Heart Rate Peripheral H 105bpm (MAY 26:14) Resp Rate 16 br/min (MAY 26:17) SBP 108 mmHg (MAY 26 15:45) DBP H 93mmHg (MAY 26 15:45) SpO2 100 % (MAY 26 15:45) Weight 109 kg (MAY 26:14) Height 183 cm (MAY 26:14) BMI 32.55 (MAY 26:) Respiratory: Adequate air exchange with gnosticist of preoperative function.. Cardiovascular: Cardiovascular function is stable and has returned to preoperative levels.. Neurologic: Pt has returned to preoperative baseline.. Review / Management Condition: Stable. Assessment Anesthetic outcome No anesthetic complications noted. Plan Transfer/ Discharge: Patient can be discharged from PACU when criteria met. Condition good. Normal [facility] [...] Davie Grijalva MD, FACOG gls Dictated: 05/27/2020 #[id number] Typed: 05/27/2020 #[id number] cc: Davie Grijalva MD, FACOG Normal [facility] Comment on above: Result Comment: Elec tronically Signed By: Rudi GUSTAFSON, Davie Duong\.br\Date and Time Signed: 05/28/20 08:11 EDT Consent for Anesthesiaon Consent for Anesthesia [id number]#[id number]:127 Normal [facility] FSPon 05-27-2020 Fibrin+Fibrinogen fragments (S) [Mass/Vol] <10 Normal <10 [facility] Comment on above: Performed By: #### 1 [id number], 4783476, 9981759, 7811103, 4478793, 0976524, 67077400, 9001229 #### [facility] [address] [place] [address] Fibrin+Fibrinogen fragments (S) [Mass/Vol] <10 Normal <10 [facility] Comment on above: Performed By: #### 1 9593337, 0897371, 7715170, 4563077, 8725097, 8914082, 39898171, 8726113 #### [facility] [address] [place] [address] Fibrin+Fibrinogen fragments (S) [Mass/Vol] <10 Normal <10 [facility] Comment on above: Performed By: #### 1 4402461, 1061708, 0220194, 7902538, 3187194, 4701252, 95472517, 8997088 #### [facility] [address] [place] [address] Fibrinogenon 05-27-2020 Fibrinogen Coag (PPP) [Mass/Vol] 181 mg/dL Low 200-393 [facility] Comment on above: Performed By: #### 1 [id number], 5138958, 4294779, 0458335, 3765187, 5568812, 17527035, 2309902 #### [facility] [address] [place] [address] Fibrinogen Coag (PPP) [Mass/Vol] 178 mg/dL Low 200-393 [facility] Comment on above: Performed By: #### 1 9451871, 8962229, 5349437, 1700121, 3678723, 7702426, 61839463, 5941093 #### [facility] [address] [place] [address] Fibrinogen Coag (PPP) [Mass/Vol] 174 mg/dL Low 200-393 [facility] Comment on above: Performed By: #### 1 1161184, 4116132, 1143468, 0813434, 8970517, 8178150, 47632092, 7202946 #### [facility] [address] [place] [address] Hct & Hgbon 05-27-2020 Hematocrit (Bld) [Volume fraction] 23.9 % Low 34.0-46.0 [facility] Comment on above: Performed By: #### 1 [id number], 3341108, 4938858, 6992850, 4407388, 6854551, 32298733, 8211499 #### [facility] [address] [place] [address] Hemoglobin (Bld) [Mass/Vol] 8.3 g/dL Low 12.0-16.0 [facility] Comment on above: Performed By: #### 1 3392940, 7330489, 1356055, 4872699, 4761456, 6320366, 84509538, 7058545 #### [facility] [address] [place] [address] Hematocrit (Bld) [Volume fraction] 22.4 % Low 34.0-46.0 [facility] Comment on above: Performed By: #### 1 3708686, 0873554, 9022055, 4554577, 9068255, 7428162, 09872443, 2335612 #### [facility] [address] [place] [address] Hemoglobin (Bld) [Mass/Vol] 7.8 g/dL Low 12.0-16.0 [facility] Comment on above: Performed By: #### 1 2671539, 6306496, 0810877, 2258531, 7601742, 8257252, 47861003, 6285415 #### [facility] [address] [place] [address] Hematocrit (Bld) [Volume fraction] 26.2 % Low 34.0-46.0 [facility] Comment on above: Performed By: #### 1 6508323, 9921277, 6487482, 1608519, 0330255, 2961979, 70576712, 3633847 #### [facility] [address] [place] [address] Hemoglobin (Bld) [Mass/Vol] 8.9 g/dL Low 12.0-16.0 [facility] Comment on above: Performed By: #### 1 9633881, 4775251, 7853039, 0544723, 9463373, 4111327, 28500621, 1784107 #### [facility] Laboratory [address] [place] [address] IntraOperative Documentson 0 05-27-2020 IntraOperative Documents [id number]:127 Normal [facility] Main OR Intraoperative Recor don 05-27-2020 Main OR Intraoperative Record IntraOp Document Type FT Summary Primary Physician: Davie Grijalva MD Finalized Date/Time: 05/27/20 13:44:47 Pt. Name: SUKHDEV SCHWARTZ /Sex: 1985 Female Med Rec #: [id number] Physician: Davie Grijalva MD Financial #: [id number] Pt. 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 Case Attendance FT Entry 1 Entry 2 Entry 3 Case Attendee Mario DRUMMOND DO, Jerel rGijalva MD, Davie Crook CST, Mónica Role Performed Anesthesiologist of Surgeon - Primary Scrub - Primary Record Time In 05/26/20 16:01:00 05/26/20 16:01:00 05/26/20 16:01:00 Time Out 05/26/20 17:13:00 05/26/20 17:06:00 05/26/20 17:13:00 Procedure DILATATION and SUCTION DILATATION and SUCTION DILATATION and SUCTION CURETTAGE CURETTAGE CURETTAGE Comments Last Modified By: Annelise RN, Rena 05/26/20 Annelise RN, Rena 05/26/20 Annelise RN, Rena 05/26/20 17:20:27 17:20:27 17:20:27 Entry 4 Entry 5 Entry 6 Case Attendee Annelise GOODRICH, Shoshana Pérez RN, Regina Role Performed Telecommunications Analyst - Primary Staff - Other Staff - Other Time In 05/26/20 16:01:00 05/26/20 16:45:00 05/26/20 16:01:00 Time Out 05/26/20 17:13:00 05/26/20 17:13:00 05/26/20 17:13:00 Procedure DILATATION and SUCTION DILATATION and SUCTION DILATATION and SUCTION CURETTAGE CURETTAGE 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 [...] CURETTAGE CURETTAGE Primary Procedure Yes Primary Surgeon Rudi GUSTAFSON, Davie Duong Start 05/26/20 16:14:00 Stop 05/26/20 16:59:00 Anesthesia [...] and tissue Entry 1 Skin Integrity Intact, Freedom, Warm, and Skin Abnormality No Dry, Bruised [...] Points Checked Yes By Rena Castelan RN, Mario DRUMMOND DO, Rudi Zhu MD, Rasheeda Pérez RN, Matilde POZO Outcomes Met? Yes Last Modified By: Rena [...] Last Modified By: Rena Castelan RN 05/26/20 Annelise GOODRICH, Rena 05/26/20 Annelise GOODRICH, Rena 05/26/20 20:10:37 20:10:37 20:10:37 Post-Care Text: The [...] Status Correct Correct Time By Rasheeda RN, CNOR, Rasheeda RN, NADYAOR, Armaan Clayton VENETIAN BL[employer] CLE[employer]ER AND REPAIRER, Armaan Clayton VENETIAN BLIND CLEANER AND REPAIRER, Mónica Mónica Outcomes Met? Yes Yes Last [...] Hair Removal Methods Not Indicated By Rasheeda RN, CNOR, Outcomes Met? Yes Matilde Last Modified By: [...] Destination PACU Transported By Lauren Reed RN, Rasheeda GOODRICH, NADYAOR, Matilde Patient Status Stable Skin. Condition Bruised, Intact, Freedom, Description same as preop Warm, and Dry [...] safely administered during the perioperative period For [place] please see scanned medication reconcilliation form for [...] BLANKET MISTRAL AIR Quantity 1 Aid TORSO [[id number]][F] Fluid/Durant Unit Mistral warming system Setting 43c, high Body Site Upper anterior torso Last Modified By: Rena Castelan RN 05/26/20 20:15:53 Case Comments Finalized By: Juanita Stein CST Document Signatures Signed By: Rena Castelan RN 05/26/20 20:16 Juanita Stein CST 05/27/20 13:44 Normal [facility] PACU Recordon 05-27-2020 PACU Record [id number]:127 Normal [facility] PT & PTTon 05-27-2020 aPTT Coag (PPP) [Time] 24.6 second(s) Low 25.1-36.5 [facility] Comment on above: Order Comment: Order Added by Discern Expert. Result Comment: Hepa rin therapeutic range (represented by Anti-Factor Xa activity of 0.2 - 0.4 U/mL) corresponds to PTT of 56.6 - 109.0 sec. Performed By: #### 1 6990741, 8088546, 7051577, 9430685, 5148582, 4008536, 58154970, 6298979 #### [facility] Laboratory [address] [place] [address] INR Coag (PPP) [Relative time] 1.1 {INR} [facility] Comment on above: Order Comment: Order Added by Discern Expert. Result Comment: INR results are specifically intended to assess patients stabilized on long-term Anticoagulation therapy suggested INR?s ?Less Intensive Anticoagulation? 2.0 ? 3.0 Conventional Range 3.0 ? 4.5 Performed By: #### 1 9819453, 9256182, 3572882, 7212579, 7555714, 3322324, 97731555, 4179786 #### [facility] Laboratory [address] [place] [address] PT Coag (PPP) [Time] 12.6 second(s) Normal 10.2-12.9 [facility] Comment on above: Order Comment: Order Added by Discern Expert. Performed By: #### 1 2929609, 5428297, 0157682, 4428095, 7730036, 9140886, 08610128, 6481478 #### [facility] Laboratory [address] [place] [address] aPTT Coag (PPP) [Time] 25.1 second(s) Normal 25.1-36.5 [facility] Comment on above: Result Comment: Hepa rin therapeutic range (represented by Anti-Factor Xa activity of 0.2 - 0.4 U/mL) corresponds to PTT of 56.6 - 109.0 sec. Performed By: #### 1 7125482, 5459421, 7790494, 7842421, 3881951, 7783645, 94328080, 2340238 #### [facility] Laboratory [address] [place] [address] INR Coag (PPP) [Relative time] 1.2 {INR} [facility] Comment on above: Result Comment: INR results are specifically intended to assess patients stabilized on long-term Anticoagulation therapy suggested INR?s ?Less Intensive Anticoagulation? 2.0 ? 3.0 Conventional Range 3.0 ? 4.5 Performed By: #### 1 2461377, 1796084, 0965756, 7092535, 8670069, 6127398, 71553370, 8185077 #### [facility] Laboratory [address] [place] [address] PT Coag (PPP) [Time] 13.5 second(s) High 10.2-12.9 [facility] Comment on above: Performed By: #### 1 3092195, 7664609, 4167645, 6770077, 5463363, 5818470, 47090208, 2689060 #### [facility] Laboratory [address] [place] [address] aPTT Coag (PPP) [Time] 24.5 second(s) Low 25.1-36.5 [facility] Comment on above: Result Comment: Hepa rin therapeutic range (represented by Anti-Factor Xa activity of 0.2 - 0.4 U/mL) corresponds to PTT of 56.6 - 109.0 sec. Performed By: #### 1 6267599, 2636646, 2004961, 2083122, 7411611, 1871016, 55706955, 6274739 #### [facility] Laboratory [address] [place] [address] INR Coag (PPP) [Relative time] 1.2 {INR} [facility] Comment on above: Result Comment: INR results are specifically intended to assess patients stabilized on long-term Anticoagulation therapy suggested INR?s ?Less Intensive Anticoagulation? 2.0 ? 3.0 Conventional Range 3.0 ? 4.5 Performed By: #### 1 5541714, 4890903, 0019898, 4670554, 4857971, 6360483, 00093795, 5990663 #### [facility] Laboratory [address] [place] [address] PT Coag (PPP) [Time] 14.0 second(s) High 10.2-12.9 [facility] Comment on above: Performed By: #### 1 1054838, 6851584, 8747639, 1814214, 6788530, 2426240, 40134597, 2256368 #### [facility] Laboratory [address] [place] [address] ABO/Rhon 05-26-2020 ABO/Rh Positive [facility] Comment on above: Performed By: #### 1 2210153, 8252571, 5522707, 9273971, 3540882, 1687269, 54084531, 2033183 #### [facility] Laboratory [address] [place] [address] ABO/Rh History Checkon 05-26 ABO/Rh History Check Verified Hx Blood Type Normal [facility] Comment on above: Performed By: #### 1 3689903, 6336932, 8783517, 7857305, 4484072, 9756525, 06300828, 3867449 #### [facility] Laboratory [address] [place] [address] ABSCon 05-26-2020 ABSC Gel Interp Negative Normal [facility] Comment on above: Performed By: #### 1 2756723, 4791629, 5732852, 6226273, 8558672, 9493675, 02268776, 2966070 #### [facility] Laboratory [address] [place] [address] 78[address] Auto Diffon 05-26-2020 Basophils/100 WBC (Bld) 0.8 % Normal 0.0-2.0 [facility] Comment on above: Order Comment: Order Added by Discern Expert. Performed By: #### 1 0154619, 2346136, 0931315, 9281383, 3085256, 1383516, 15285520, 5618634 #### [facility] Laboratory [address] [place] [address] Basophils/Leukocyte s Auto (Bld) [Pure # fraction] 0.1 E9/L Normal 0.0-0.2 [facility] Comment on above: Order Comment: Order Added by Discern Expert. Performed By: #### 1 0880802, 7464363, 1430331, 3962695, 2506840, 6749871, 39618496, 8237412 #### [facility] Laboratory [address] [place] [address] Eosinophils/100 WBC (Bld) 2.0 % Normal 0.0-8.0 [facility] Comment on above: Order Comment: Order Added by Discern Expert. Performed By: #### 1 1559015, 9442557, 0813287, 5102618, 4851259, 0344952, 60383553, 8613951 #### [facility] Laboratory [address] [place] [address] Eosinophils/Leukocy dariel Auto (Bld) [Pure # fraction] 0.1 E9/L Normal 0.0-0.5 [facility] Comment on above: Order Comment: Order Added by Discern Expert. Performed By: #### 1 7941514, 4592556, 4556890, 9377192, 0471706, 4101155, 06744502, 2957844 #### [facility] Laboratory [address] [place] [address] Lymphocytes/100 WBC (Bld) 22.2 % Normal 14.0-50.0 [facility] Comment on above: Order Comment: Order Added by Discern Expert. Performed By: #### 1 8053514, 2085214, 9290439, 4970305, 1709322, 9353606, 06861653, 9590280 #### [facility] Laboratory [address] [place] [address] Lymphocytes/Leukocy dariel Auto (Bld) [Pure # fraction] 1.6 E9/L Normal 1.0-4.0 [facility] Comment on above: Order Comment: Order Added by Discern Expert. Performed By: #### 1 8042936, 8075561, 3356236, 5862249, 1177983, 7496978, 62258342, 7941884 #### [facility] Laboratory [address] [place] [address] Monocytes/100 WBC (Bld) 6.7 % Normal 4.0-14.0 [facility] Comment on above: Order Comment: Order Added by Discern Expert. Performed By: #### 1 2507545, 5606182, 8881594, 5351328, 1229159, 4047934, 29545889, 8096457 #### [facility] Laboratory [address] [place] [address] Monocytes/Leukocyte s Auto (Bld) [Pure # fraction] 0.5 E9/L Normal 0.2-1.0 [facility] Comment on above: Order Comment: Order Added by Discern Expert. Performed By: #### 1 2259597, 2328365, 1633206, 6869060, 0819015, 1353411, 33157617, 9205796 #### [facility] Laboratory [address] [place] [address] Neutrophils/100 WBC (Bld) 68.3 % Normal 36.0-75.0 [facility] Comment on above: Order Comment: Order Added by Discern Expert. Performed By: #### 1 3086026, 7884817, 1391496, 3445584, 3269112, 2823589, 71514737, 8425324 #### [facility] Laboratory [address] [place] [address] Neutrophils/Leukocy dariel Auto (Bld) [Pure # fraction] 4.8 E9/L Normal 2.0-7.5 [facility] Comment on above: Order Comment: Order Added by Discern Expert. Performed By: #### 1 8508548, 3764633, 9459335, 7129114, 8597583, 8971071, 33574813, 3771222 #### [facility] Laboratory [address] [place] [address] B hCG Qualon 05-26-2020 Beta hCG Ql Positive Normal [facility] Comment on above: Result Comment: mary ected Performed By: #### 1 4776708, 3447281, 3987828, 9028980, 8467592, 4265462, 59064386, 3512795 #### [facility] Laboratory [address] [place] [address] BMPon 05-26-2020 Creatinine [Mass/Vol] 0.7 mg/dL Normal 0.5-1.3 [facility] Comment on above: Performed By: #### 1 1296411, 0031848, 4480309, 5587430, 6324058, 2124176, 10077106, 4074242 #### [facility] Laboratory [address] [place] [address] Urea nitrogen [Mass/Vol] 15 mg/dL Normal 5-21 [facility] Comment on above: Performed By: #### 1 4928383, 1887934, 8291084, 0889115, 1516077, 2886180, 81125256, 7403196 #### [facility] Laboratory [address] [place] [address] Urea nitrogen/Creatinine [Mass ratio] 21 No Units High 10-20 [facility] Comment on above: Performed By: #### 1 1214517, 7093249, 6949424, 0506478, 8659453, 2150025, 31684603, 2746554 #### [facility] Laboratory [address] [place] [address] Anion gap [Moles/Vol] 12 mmol/L Normal 6-16 [facility] Comment on above: Performed By: #### 1 1883421, 1404150, 1808084, 3463005, 5363871, 4843428, 85236744, 0742431 #### [facility] Laboratory [address] [place] [address] Calcium [Mass/Vol] 9.4 mg/dL Normal 8.9-11.1 [facility] Comment on above: Performed By: #### 1 5553989, 4496284, 7128459, 2698897, 3694508, 3469722, 05877169, 1591201 #### [facility] Laboratory [address] [place] [address] Chloride [Moles/Vol] 105 mmol/L Normal 101-111 [facility] Comment on above: Performed By: #### 1 9076077, 2107590, 1823985, 6702609, 4581427, 7729142, 20714841, 8910039 #### [facility] Laboratory [address] [place] [address] CO2 [Moles/Vol] 26 mmol/L Normal 21-31 [facility] Comment on above: Performed By: #### 1 0965986, 1955761, 7598318, 9148685, 0876114, 2977145, 24101255, 2498990 #### [facility] Laboratory [address] [place] [address] Glucose [Mass/Vol] 101 mg/dL Normal 55-199 [facility] Comment on above: Result Comment: If t his glucose result represents a fasting glucose, interpretation should refer to the following reference range: 55-99 mg/dL Performed By: #### 1 5140428, 1060422, 7941105, 0796705, 0815766, 1321132, 72478595, 8394585 #### [facility] Laboratory [address] [place] [address] Potassium [Moles/Vol] 3.9 mmol/L Normal 3.5-5.3 [facility] Comment on above: Performed By: #### 1 4807963, 1193511, 2099695, 7506390, 0910917, 5071953, 91097882, 2979909 #### [facility] Laboratory [address] [place] [address] Sodium [Moles/Vol] 139 mmol/L Normal 135-145 [facility] Comment on above: Performed By: #### 1 8698091, 2265348, 4265900, 8999577, 8946458, 8610141, 16728316, 6249101 #### [facility] Laboratory [address] [place] [address] BhCG Quanton 05-26-2020 HCG.beta subunit Qn 18 m[IU]/mL High 1-3 [facility] Comment on above: Result Comment: GEST ATIONAL AGE HCG RANGE (mIU/mL) NON- <1-3 0.2-1 WEEKS 5-50 1-2 WEEKS 50-500 2-3 WEEKS 100-5,000 3-4 WEEKS 500-10,000 4-5 WEEKS 1,000-50,000 5-6 WEEKS 10,000-100,000 6-8 WEEKS 15,000-200,000 8-12 WEEKS 10,000-100,000 Performed By: #### 1 7076658, 2114592, 9886219, 2324469, 5805223, 0510740, 71002602, 7722995 #### [facility] Laboratory [address] [place] [address] Blood Bank ID#on 05-26-2020 BBID# [id number] [facility] Comment on above: Performed By: #### 1 2927817, 5599611, 1761630, 2591269, 4484813, 1059331, 31188739, 5687686 #### [facility] Laboratory [address] [place] [address] CBC w/ Auto Diffon 0 Erythrocyte distribution width (RBC) [Ratio] 12.4 % Normal 10.9-14.2 [facility] Comment on above: Performed By: #### 1 4830359, 9365165, 4192794, 9345861, 9009043, 0708485, 36374430, 2499208 #### [facility] Laboratory [address] [place] [address] Hematocrit (Bld) [Volume fraction] 36.6 % Normal 34.0-46.0 [facility] Comment on above: Performed By: #### 1 8476189, 5596310, 9422211, 2112002, 2286979, 0716771, 05224140, 0339095 #### [facility] Laboratory [address] [place] [address] Hemoglobin (Bld) [Mass/Vol] 12.2 g/dL Normal 12.0-16.0 [facility] Comment on above: Performed By: #### 1 6408958, 2257312, 0540692, 9696436, 6881818, 0880485, 57359197, 5900143 #### [facility] Laboratory [address] [place] [address] MCH (RBC) [Entitic mass] 29.8 pg Normal 27.0-34.0 [facility] Comment on above: Performed By: #### 1 7626920, 6452155, 7157642, 7132481, 7189700, 5496258, 30495870, 4148986 #### [facility] Laboratory [address] [place] [address] MCHC (RBC) [Mass/Vol] 33.3 g/dL Normal 31.4-36.0 [facility] Comment on above: Performed By: #### 1 1514775, 4952564, 5913590, 6909435, 0892678, 7779598, 99747473, 6954656 #### [facility] Laboratory [address] [place] [address] MCV (RBC) [Entitic vol] 89.5 fL Normal 80.0-100.0 [facility] Comment on above: Performed By: #### 1 5987222, 7632118, 4940354, 5479738, 3569811, 5307139, 59227513, 3148187 #### [facility] Laboratory [address] [place] [address] Platelet mean volume (Bld) [Entitic vol] 7.4 fL Normal 6.4-10.8 [facility] Comment on above: Performed By: #### 1 2829537, 9615944, 4609329, 7005509, 1417727, 6423746, 71684383, 3981607 #### [facility] Laboratory [address] [place] [address] Platelets (Bld) [#/Vol] 278.0 E9/L Normal 150.0-500.0 [facility] Comment on above: Performed By: #### 1 1090166, 6302834, 9289407, 5338938, 1575066, 8543090, 69904982, 4503540 #### [facility] Laboratory [address] [place] [address] RBC (Bld) [#/Vol] 4.1 E12/L Low 4.3-5.9 [facility] Comment on above: Performed By: #### 1 3046092, 6932340, 2009979, 0323468, 3957740, 4787777, 32816117, 4235379 #### [facility] Laboratory [address] [place] [address] WBC corrected for nucl RBC Auto (Bld) [#/Vol] 7.0 E9/L Normal 4.0-11.0 [facility] Comment on above: Performed By: #### 1 6860426, 2215898, 3153350, 3736016, 8665522, 2232290, 15872419, 6086195 #### [facility] Laboratory [address] [place] [address] Consent for Blood Transfusio non 05-26-2020 Consent for Blood Transfusion [id number]#[id number]:127 Normal [facility] Consent for Treatmenton Consent for Treatment [id number]#[id number]:127 Normal [facility] ED Clinical Summaryon 2019 ED Clinical Summary (Inserted Image. Sachi ble to display) [place] [id number] ED Clinical Summary Person Information Name: SUKHDEV SCHWARTZ [facility]acey[facility] Age: 34 Years : 1985 Sex: Female Language: Marshallese PCP: LOLI MATIAS MD Marital Status: Phone: [phone] MRN: Visit Id: Visit Reason: Nausea; Dizziness; [...] 12:15:07 Discharge Request 05/26/2020 12:32:48 AD[address]ESS: [address] [id number] [facility] DOC NOTES: MEDICAL INFORMATION: Prescriptions Given: [...] Menorrhagia Follow up: With: Address: When: Davie Rudi [address], [facility] [address], [place] [id number] [facility] (1) 05/27/2020 8:45 AM Comments: Return to ED if symptoms worsen. Drink lots of fluids. Return if you have worsening bleeding, pass out, chest pain, shortnes of breath or any other problems. DIAGNOSIS: 1:Menorrhagia Normal [facility] ED Note-Physicianon 05-26-20 ED Note-Physician Basic Information Time Seen: Payton BAE Carline 05/26/2020 11:23 Chief Complaint pt reports excessive [...] l4-6 (12/2016), gastric sleeve (2016). Medications Inpatient NS 1000 ml Bolus 1,000 [...] 29.8 pg (05/26/20 11:25:00) MCHC: 33.3 gm/dL (05/26/20 11:25:00) RDW: 12.4 % (05/26/20 11:25:00) Platelet: 278 E9/L (05/26/20 11:25:00) MPV: 7.4 fL (05/26/20 11:25:00) Neutro Auto: 68.3 % (05/26/20 11:25:00) Lymph Auto: 22.2 % (05/26/20 11:25:00) [place] Auto: 6.7 % (05/26/20:25:00) Eos Auto: 2 % (05/26/20:25:00) Basophil Auto: 0.8 % (05/26/20:25:00) Neutro Absolute: 4.8 E9/L (05/26/20:25:00) Lymph Absolute: 1.6 E9/L (05/26/20:25:00) [place]ell Absolute: 0.5 E9/L (05/26/20:25:00) Eos Absolute: 0.1 E9/L (05/26/20:25:00) Basophil Absolute: 0.1 E9/L (05/26/20:25:00) PT: 12.5 second(s) (05/26/20::00) INR: 1.1 (05/26/20:00) PTT: 30.1 second(s) (05/26/20::00) Glucose Lvl: 101 mg/dL (05/26/20:25:00) BUN: 15 mg/dL (05/26/20:25:00) Creatinine: 0.7 mg/dL (05/26/20:25:00) eGFR: >60 (05/26/20::00) eGFR AA: >60 (05/26/20::00) BUN/Creat Ratio: 21 High (05/26/20:25:00) Sodium Lvl: 139 mmol/L (05/26/20:25:00) Potassium Lvl: 3.9 mmol/L (05/26/20 11:25:00) Chloride: 105 mmol/L (05/26/20 11:25:00) CO2: 26 mmol/L (05/26/20:25:00) AGAP: 12 mEq/L (05/26/20:25:00) Calcium Lvl: 9.4 mg/dL (05/26/20:25:00) Alk Phos: 47 Int._Unit/L (05/26/20 11:25:00) ALT: 10 Int._Unit/L (05/26/20 11:25:00) AST: 12 Int._Unit/L (05/26/20 11:25:00) Total Protein: 7 gm/dL (05/26/20 11:25:00) Albumin Lvl: 4.1 gm/dL (05/26/20 11:25:00) Globulin: 2.9 gm/dL (05/26/20 11:25:00) A/G Ratio: 1.4 (05/26/20 11:25:00) Bili Total: 0.8 mg/dL (05/26/20 11:25:00) Bili Direct: 0.1 mg/dL (05/26/20 11:25:00) Bili Indirect: 0.7 mg/dL (05/26/20 11:25:00) Progesterone [...] Performed Signed By: Faraz Carter DO [facility] Comment on above: Result Comment: Elec [...] hospitalization. HOME CARE INSTRUCTIONS ? Only take yiod-wfj-zywxmrs or prescription medicines as directed by your [...] Document Reviewed: 03/25/2014 ExitCare? Patient Information ?2015 [employer]. This information is not intended to replace advice given to you by your health care provider. Make sure you discuss any questions you have with your health care provider. Normal [facility] ED Patient Summaryon 020 ED Patient Summary (Inserted Image. Sachi ble to display) [address] [address] Patient Discharge Instructions Person Information Name: SUKHDEV SCHWARTZ Age: 34 Years Arrival Date: 05/26/2020 11:09:13 Discharge Diagnosis: 1:Menorrhagia Primary Care Physician: LOLI MATIAS MD Provider Information Primary Provider: Carline Cain DO Advanced Gluing Pressman:None The exam and treatment you received in the Emergency Department were for an urgent problem and are not intended as complete care. It is important that you follow up with a doctor, nurse practitioner, or physician?s computer lab assistant for ongoing care. If your symptoms become worse or you do not improve as expected and you are unable to reach your usual health care provider, you should return to the Emergency Department. We are available 24 hours a day. SUKHDEV SCHWARTZ has been given the following list of patient education materials, prescriptions and follow-up instructions: Follow-up Instructions: With: Address: When: Davie Grijalva [address] [place] [address] [id number] [facility] (1) 05/27/2020 8:45 AM Comments: Return to [...] opioids can be used to help relieve nzshhfud-jj-hbeifp pain and are often prescribed following a [...] struggling with addiction, tell your health manager critical care and ask for guidance or call [facility] National Helpline at 5-339-600-XVXJ. h Source: [place] Department of Health and Human Services/Center for Disease Control & Prevention [facility] Medications Given: Medication Dose Route [...] Comment: Pharmacy Information: Thank you for choosing [facility] Patient Education Materials: Menorrhagia Menorrhagia [...] hospitalization. HOME CARE INSTRUCTIONS ? Only take toba-xmv-kpyrxta or prescription medicines as directed by your [...] 10/09/2014 Document Reviewed: 03/25/2014 ExitCare? Patient Information ?2014 [employer]. This information is not intended to replace advice given to you by your health care provider. Make sure you discuss any questions you have with your health care provider. EFREN Bain BRITTANY F , have received the following patient education materials/instructions and have verbalized understanding: Patient Education Materials: Menorrhagia Follow-up Instructions: With: Address: When: Davie Grijalva [address] [place] [address], [facility] [address], [place] [address] Business (1) 05/27/2020 8:45 AM Comments: Return to ED if symptoms worsen. Drink lots of fluids. Return if you have worsening bleeding, pass out, chest pain, shortnes of breath or any other problems. Patient Signature __ Date Clinician/Nurse Signature Date 05/26/2020 12:32:58 Normal [facility] FFPon 05-26-2020 # of Units 2 [facility] Comment on above: Result Comment: 2019 17:56 [id number] Blood product ready and called to Jaki/OB at 05/26/2020 17:56:49 EDT by AL. Performed By: #### 1 [id number], 9767359, 7021768, 4234038, 2192498, 3671205, 32234362, 6117162 #### [facility] Laboratory [address] [place] [address] Date Required [facility] Comment on above: Performed By: #### 1 0126317, 0237155, 6455422, 1829367, 5615989, 5324703, 24369219, 8233379 #### [facility] Laboratory [address] [place] [address] Order to Transfuse YES [facility] Comment on above: Performed By: #### 1 2860322, 0808730, 4477546, 5755763, 6696658, 1155843, 62724264, 1637179 #### [facility] Laboratory [address] [place] [address] Hematocriton 05-26-2020 Hematocrit (Bld) [Volume fraction] 27.0 % Low 34.0-46.0 [facility] Comment on above: Performed By: #### 1 9645641, 9217249, 3419508, 6873977, 7212272, 2843337, 93967610, 7514257 #### [facility] Laboratory [address] [place] [address] Hemoglobinon 05-26-2020 Hemoglobin (Bld) [Mass/Vol] 9.0 g/dL Low 12.0-16.0 [facility] Comment on above: Performed By: #### 1 9602411, 5779679, 5541188, 5194926, 2331929, 4219437, 19714239, 6301007 #### [facility] Laboratory [address] [place] [address] Hep Func Panelon 05-26-2020 Albumin [Mass/Vol] 1.4 g/dL Normal 1.1-2.2 [facility] Comment on above: Performed By: #### 1 7951662, 2933273, 0951397, 6548558, 1086693, 7293915, 19993737, 0037703 #### [facility] Laboratory [address] [place] [address] Albumin [Mass/Vol] 4.1 g/dL Normal 3.3-5.0 [facility] Comment on above: Performed By: #### 1 6478467, 0756058, 0543252, 1299460, 0034431, 1600314, 98508405, 5708485 #### [facility] Laboratory [address] [place] [address] ALP [Catalytic activity/Vol] 47 Int._Unit/L Normal 21-98 [facility] Comment on above: Performed By: #### 1 3416599, 5351131, 9877174, 4865042, 7434209, 1785632, 45364449, 5812905 #### [facility] Laboratory [address] [place] [address] ALT No additional P-5'-P [Catalytic activity/Vol] 10 Int._Unit/L Normal 6-46 [facility] Comment on above: Performed By: #### 1 3575409, 8687342, 5179231, 6230736, 6198971, 1961894, 65732433, 2344191 #### [facility] Laboratory [address] [place] [address] AST [Catalytic activity/Vol] 12 Int._Unit/L Normal 5-43 [facility] Comment on above: Performed By: #### 1 2388060, 7112397, 7514282, 1403636, 5590405, 8736046, 93219693, 5001768 #### [facility] Laboratory [address] [place] [address] Bilirubin [Mass/Vol] 0.8 mg/dL Normal 0.0-1.1 [facility] Comment on above: Performed By: #### 1 2273537, 1408635, 1691879, 7997003, 3893221, 0088127, 40857165, 0414793 #### [facility] Laboratory [address] [place] [address] Bilirubin.direct [Mass/Vol] 0.7 mg/dL Normal 0.1-0.9 [facility] Comment on above: Performed By: #### 1 5508409, 2112487, 4754221, 1620057, 3566399, 2706559, 21103051, 6710662 #### [facility] Laboratory [address] [place] [address] Bilirubin.direct [Mass/Vol] 0.1 mg/dL Normal 0.1-0.4 [facility] Comment on above: Performed By: #### 1 7591841, 5791054, 1966648, 1338593, 6801964, 6361089, 04146718, 9029693 #### [facility] Laboratory [address] [place] [address] Globulin (S) [Mass/Vol] 2.9 g/dL Normal 1.4-4.0 [facility] Comment on above: Performed By: #### 1 4777465, 7654568, 9286594, 2047921, 3010260, 1038827, 60067140, 2260488 #### [facility] Laboratory [address] [place] [address] Protein [Mass/Vol] 7.0 g/dL Normal 6.0-7.8 [facility] Comment on above: Performed By: #### 1 7787084, 4167010, 8935812, 9888479, 5250716, 7591959, 25550704, 9332465 #### [facility] Laboratory [address] [place] [address] Main OR PACU I Recordon Main OR PACU I Record PACU Phase I Document Type FT Summary Primary Physician: Davie Grijalva MD Finalized Date/Time: 05/26/20 20:48:43 Pt. Name: SUKHDEV SCHWARTZ/Sex: 1985 Female Med Rec #: [id number] Physician: Davie Grijalva MD Financial #: [id number] Pt. Type: O Room/Bed: [place] [address] Admit/Disch: 05/26/20 11:09:13 - Institution: Case Times [...] By: Lauren Reed RN 05/26/20 20:48 Normal [facility] Main OR Preoperative Recordo n 05-26-2020 Main OR Preoperative Record Holding Area Document Type FT Summary Primary Physician: Davie Grijalva MD Finalized Date/Time: 05/26/20 20:04:05 Pt. Name: SUKHDEV SCHWARTZ/Sex: 1985 Female Med Rec #: [id number] Physician: Davie Grijalva MD Financial #: [id number] Pt. Type: O Room/Bed: [facility]/ Admit/Disch: 05/26/20 11:09:13 - Institution: Case Times [...] Signed By: Rena Castelan RN 05/26/20 20:04 [facility] Monitor Recordon 05-26-2020 Monitor Record [id number]#1.00CD:127 [facility] Monitor Record [id number]#1.00CD:127 [facility] Monitor Record [id number]#1.00CD:127 [facility] Monitor Record [id number]#1.00CD:127 [facility] Monitor Record [id number]#1.00CD:127 [facility] Monitor Record [id number]#1.00CD:127 Normal [facility] PT & PTTon 05-26-2020 aPTT Coag (PPP) [Time] 30.1 second(s) Normal 25.1-36.5 [facility] Comment on above: Result Comment: Hepa rin therapeutic range (represented by Anti-Factor Xa activity of 0.2 - 0.4 U/mL) corresponds to PTT of 56.6 - 109.0 sec. Performed By: #### 1 7820792, 5657797, 0179696, 6456512, 4608726, 0489467, 57222056, 4998367 #### [facility] Laboratory [address] [place] [address] INR Coag (PPP) [Relative time] 1.1 {INR} [facility] Comment on above: Result Comment: INR results are specifically intended to assess patients stabilized on long-term Anticoagulation therapy suggested INR?s ?Less Intensive Anticoagulation? 2.0 ? 3.0 Conventional Range 3.0 ? 4.5 Performed By: #### 1 6365202, 4880818, 8216775, 2461271, 6513724, 2635194, 43095421, 8488779 #### [facility] Laboratory [address] [place] [address] PT Coag (PPP) [Time] 12.5 second(s) Normal 10.2-12.9 [facility] Comment on above: Performed By: #### 1 8333798, 9439000, 1894993, 0476146, 1923360, 7324413, 16277738, 6522502 #### [facility] Laboratory [address] [place] [address] Progesteroneon 05-26-2020 Progesterone [Mass/Vol] 0.90 ng/mL [facility] Comment on above: Result Comment: REFE RENCE RANGE Males 0.14-2.06 ng/mL Non- Females Follicular 0.10-0.60 ng/mL Luteal 3.00-17.5 ng/mL Midluteal 3.30-18.6 ng/mL Post-Menopausal 0.10-0.40 ng/mL First Trimester 8.30-66.5 ng/mL Second Trimester 18.9-66.1 ng/mL Third Trimester 35.8-312.4 ng/mL Performed By: #### 1 9770549, 0880967, 9153284, 8660756, 4566335, 9917845, 74341541, 7865403 #### [facility] Laboratory [address] [place] [address] Progress Note-Nurseon 2019 Progress Note-Nurse Blood obtained per Rhoda Grijalva order and patient taken to surgery. Blood given to Lauren in surgery. Normal [facility] Progress Note-Nurse Dr. Grijalva in at [facility] with pelvic tray and patient and patient begin to bleed heavily and pt heart rate decreased to 50's and patient BP registered in the 60's. pt pale and clammy. Pt in Trendelenburg and fluids open wide. Patient blood pressure up to 100's and HR in the 70's and Dr. Grijalva at [facility] Normal [facility] Progress Note-Nurse Ultrasound at [facility] de to perform beside US Normal [facility] Progress Note-Nurse Patient coloring imp roved at this time and patient VS improved. Dr. Cain aware and awaiting US Normal [facility] Progress Note-Nurse This nurse and Elsei madsen RN and Altagracia Gilmore Rn in [...] started per Altagracia Godinez. Dr. Cain at [facility]. Patient verbalized she is starting to feel better at this time Normal [facility] Progress Note-Physicianon Progress Note-Physician Patient: [...] q6hr, # 15 tab(s), Refills(s) 0, Pharmacy: [facility] #16 Documented Medications Documented Multivitamins: 1 tab(s), [...] list: All Problems Pancreatitis / SNOMED CT 340842822 / Confirmed Incomplete miscarriage / SNOMED CT 693216371 / Confirmed missed Ovarian dysfunction / SNOMED CT 88754542 / Confirmed Hypothyroidism / SNOMED CT 32172015 / Confirmed, Active Problems (4) Hypothyroidism Incomplete miscarriage Ovarian dysfunction Pancreatitis Histories Past Medical History: No active or resolved past medical history items have been selected or recorded. Family History: Diabetes mellitus type 2 Mother Thyroid cancer Mother Sister Procedure history: Dilation and curettage ([id number]) on 10/20/2019 at 33 Years. Comments: 10/20/2019 19:10 Kat Rosenbaum RN DILATION & SUCTION CURETTAGE Cholecystectomy ([id number]) on 07/19/2019 at 33 Years. DIAGNOSTIC LAPAROSCOPY [...] in household: No Comment: Denies - 07/17/2019 21:Yaneli Beltran RN Tobacco 03/27/2019 Risk Assessment: Denies Tobacco Use 06/12/2019 Tobacco Use: Never (less than 100 in l Smokeless tobacco use: Never Concerns about tobacco use in household: No Comment: Denies - 07/17/2019 21:14 Yaneli Bishop RN 07/28/2019 Tobacco Use: Never (less than 100 in l . Physical Examination Vital Signs (last 24 hrs) Last Charted Temp Tympanic L 35.9DegC (MAY 26 11:14) Heart Rate Peripheral H 105bpm (MAY 26 11:14) Resp Rate 16 br/min (MAY 26 15:17) SBP 108 mmHg (MAY 26 15:45) DBP H 93mmHg (MAY 26 15:45) SpO2 100 % (MAY 26 15:45) Weight 109 kg (MAY 26 11:14) Height 183 cm (MAY 26 11:14) BMI 32.55 (MAY 26 11:14) Airway: Normal oral/pharyngeal anatomy.. Respiratory: Adequate air exchange.. Cardiovascular: Adequate perfusion and function. Review / Management Results review: Labs (Last four charted values) Hgb L 9.0 (MAY 26) 12.2 (MAY 26) Hct L 27.0 (MAY 26) 36.6 (MAY 26) Cr 0.7 (MAY 26) . Plan [place] [employer] (ASA) physical status classification: Class III, E. Anesthetic Preoperative Plan Anesthesia: General. . Anesthetic plan, risks, benefits, and alternatives discussed with the patient and/or family. Pt. and/or family present and agree to proceed as planned.. Discussed the importance of abstaining from tobacco products, and offered counseling if desired. Normal [facility] Comment on above: Result Comment: Elec tronically Signed By: Mario DRUMMOND DO, Jerel Stevens\.br\Date and Time Signed: 05/26/20 17:16 EDT RCOon 05-26-2020 # of Units 4 [facility] Comment on above: Result Comment: 2019 18:39 [id number] Blood product ready and called to Jaki/OB at 05/26/2020 18:39:16 EDT by ALElayne Performed By: #### 1 1093943, 6516049, 4756553, 7120512, 5359212, 2593407, 28037330, 8870540 #### [facility] Laboratory [address] [place] [address] Date Required 05-26-2020 [facility] Comment on above: Performed By: #### 1 8352083, 4691101, 6158173, 1993806, 0702058, 5578771, 20950477, 1592674 #### [facility] Laboratory [address] [place] [address] Product Type None Required [facility] Comment on above: Performed By: #### 1 6419484, 2669668, 7094459, 8249186, 7966815, 8181743, 84490521, 2986934 #### [facility] Laboratory [address] [place] [address] # of Units 1 [facility] Comment on above: Result Comment: 2019 16:29 [id number] Blood product ready and called to Lauren at 05/26/2020 16:29:10 EDT by AL. Performed By: #### 1 2610215, 9454244, 3013512, 9364542, 9448925, 3657565, 61581105, 7844821 #### [facility] Laboratory [address] [place] [address] # of Units 2 [facility] Comment on above: Performed By: #### 1 7626977, 2860202, 1996031, 9522072, 1546735, 7816627, 08018663, 6751080 #### [facility] Laboratory [address] [place] [address] Date Required 05/26/2020 [facility] Comment on above: Performed By: #### 1 7556419, 9681242, 2775866, 8451293, 5069326, 3895062, 42736419, 9699467 #### [facility] Laboratory [address] [place] [address] Date Required [facility] Comment on above: Performed By: #### 1 2315689, 7398715, 9502063, 2413106, 5698971, 0870850, 02815337, 0165135 #### [facility] Laboratory [address] [place] [address] Product Type None Required [facility] Comment on above: Performed By: #### 1 3377553, 9794534, 3761020, 4310627, 0513493, 5697391, 36456556, 6000966 #### [facility] Laboratory [address] [place] [address] # of Units 1 [facility] Comment on above: Result Comment: 2019 15:50 [id number] Blood product ready and called to Topher/ER at 05/26/2020 15:49:51 EDT by ALElayne Performed By: #### 1 5555244, 0369632, 2683056, 3044925, 5083383, 6212434, 73682269, 0931964 #### [facility] Laboratory [address] [place] [address] Date Required 05/26/2020 [facility] Comment on above: Performed By: #### 1 5166461, 6475639, 6470654, 1292081, 6705105, 6562563, 51642375, 3862361 #### [facility] Laboratory [address] [place] [address] Product Type None Required [facility] Comment on above: Performed By: #### 1 6386109, 8607154, 3851589, 2147124, 1800579, 6502969, 88272286, 1007010 #### [facility] Laboratory [address] [place] [address] US 1st Trimesteron 05-26-2020 US 1st Trimester [...] ? SAB 2 Transabdominal Ultrasound Performed Normal [facility] eGFRon 05-26-2020 GFR/1.73 sq M predicted among blacks MDRD (S/P/Bld) [Vol rate/Area] mL/min/{1.73_m2} Normal >=59 [facility] Comment on above: Order Comment: Order added by Discern Expert. Result Comment: eGFR is race adjusted. AA=. Performed By: #### 1 5465521, 7748573, 5944781, 8699749, 4350724, 2104908, 62891379, 5165488 #### [facility] Laboratory [address] [place] [address] GFR/1.73 sq M predicted among non-blacks MDRD (S/P/Bld) [Vol rate/Area] mL/min/{1.73_m2} Normal >=59 [facility] Comment on above: Order Comment: Order added by Discern Expert. Result Comment: Field Laboratory Operator ivan kidney disease could be indicated at eGFR's of less than 60 mL/min/1.73m2. Kidney failure is indicated at less than 15 mL/min/1.73m2. Performed By: #### 1 4012620, 5851797, 9040705, 5172278, 5828970, 8602695, 10287803, 9150520 #### [facility] Laboratory [address] [place] [address] Coding Summary.on 01-23-2020 Coding Summary. CODING DATE: [address] [facility] STATUS: Home (Routine DC) PAYOR: Leela [...] Milton Date Saved: 01/23/2020 12:44 pm Normal [facility] Estradiolon 01-23-2020 E2 [Mass/Vol] 1822.0 pg/mL [facility] Comment on above: Result Comment: Adul t Female: Follicular phase 12.5 - 166.0 Ovulation phase 85.8 - 498.0 Luteal phase 43.8 - 211.0 Postmenopausal <6.0 - 54.7 1st trimester 215.0 - >4300.0 Girls (1-10 years) 6.0 - 27.0 Mal ECLIA methodology Performed at: [facility] [address] [id number] PhD Subhash Coronel Performed By: #### 1 5654437, 9277427, 5322543, 2615693, 6823970, 2592933, 24236248, 0269172 #### [facility] Laboratory [address] [place] [address] [facility] Quanton 01-22-2020 [place] [address] m[IU]/mL High 1-3 [facility] Comment on above: Result Comment: GEST ATIONAL AGE HCG RANGE (mIU/mL) NON- <1-3 0.2-1 WEEKS 5-50 1-2 WEEKS 50-500 2-3 WEEKS 100-5,000 3-4 WEEKS 500-10,000 4-5 WEEKS 1,000-50,000 5-6 WEEKS 10,000-100,000 6-8 WEEKS 15,000-200,000 8-12 WEEKS 10,000-100,000 Performed By: #### 1 4404611, 6991261, 8012121, 5635812, 6485670, 9365877, 27325210, 8896858 #### [facility] Laboratory [address] [place] [address] Progesteroneon 01-22-2020 Progesterone [Mass/Vol] 21.50 ng/mL [facility] Comment on above: Result Comment: REFE RENCE RANGE Males 0.14-2.06 ng/mL Non- Females Follicular 0.10-0.60 ng/mL Luteal 3.00-17.5 ng/mL Midluteal 3.30-18.6 ng/mL Post-Menopausal 0.10-0.40 ng/mL First Trimester 8.30-66.5 ng/mL Second Trimester 18.9-66.1 ng/mL Third Trimester 35.8-312.4 ng/mL Performed By: #### 1 8426238, 7984734, 2744283, 0523299, 2903054, 9519227, 85951465, 6101952 #### [facility] Laboratory [address] [place] [address] Coding Summary.on 01-16-2020 Coding Summary. CODING DATE: 020 [facility] STATUS: Home (Routine DC) PAYOR: [place] ADMIT DX: REASON FOR VISIT DX: O09.00 [...] CphT Date Saved: 01/16/2020 07:40 am Normal [facility] Estradiolon 01-16-2020 E2 [Mass/Vol] 1275.0 pg/mL [facility] Comment on above: Result Comment: Adul t Female: Follicular phase 12.5 - 166.0 Ovulation phase 85.8 - 498.0 Luteal phase 43.8 - 211.0 Postmenopausal <6.0 - 54.7 1st trimester 215.0 - >4300.0 Girls (1-10 years) 6.0 - 27.0 Mal ECLIA methodology Performed at: [facility] [id number] PhD Subhash Coronel Performed By: #### 1 0195172, 3819818, 8276572, 3049532, 1077424, 3670947, 07495945, 1190554 #### [facility] Laboratory [address] [place] [address] BhCG Quanton 01-15-2020 HCG.beta subunit Qn 4061 m[IU]/mL High 1-3 [facility] Comment on above: Result Comment: GEST ATIONAL AGE HCG RANGE (mIU/mL) NON- <1-3 0.2-1 WEEKS 5-50 1-2 WEEKS 50-500 2-3 WEEKS 100-5,000 3-4 WEEKS 500-10,000 4-5 WEEKS 1,000-50,000 5-6 WEEKS 10,000-100,000 6-8 WEEKS 15,000-200,000 8-12 WEEKS 10,000-100,000 Performed By: #### 1 5938508, 4241864, 8519482, 6254190, 5573620, 4554688, 00155451, 8763868 #### [facility] [address] [place] [address] Progesteroneon 01-15-2020 Progesterone [Mass/Vol] 32.10 ng/mL [facility] Comment on above: Result Comment: REFE RENCE RANGE Males 0.14-2.06 ng/mL Non- Females Follicular 0.10-0.60 ng/mL Luteal 3.00-17.5 ng/mL Midluteal 3.30-18.6 ng/mL Post-Menopausal 0.10-0.40 ng/mL First Trimester 8.30-66.5 ng/mL Second Trimester 18.9-66.1 ng/mL Third Trimester 35.8-312.4 ng/mL Performed By: #### 1 3197226, 0602059, 3302609, 5830816, 6138226, 3469213, 33198903, 3082864 #### [facility] Laboratory [address] [place] [address] Coding Summary.on 01-09-2020 Coding Summary. CODING DATE: [address] [facility] STATUS: Home (Routine DC) PAYOR: Leela [...] CphT Date Saved: 01/09/2020 07:10 am Normal [facility] Estradiolon 01-09-2020 E2 [Mass/Vol] 572.2 pg/mL [facility] Comment on above: Result Comment: Adul t Female: Follicular phase 12.5 - 166.0 Ovulation phase 85.8 - 498.0 Luteal phase 43.8 - 211.0 Postmenopausal <6.0 - 54.7 1st trimester 215.0 - >4300.0 Girls (1-10 years) 6.0 - 27.0 Mal ECLIA methodology Performed at: [facility] [address] [id number] PhD Subhash Coronel Performed By: #### 1 0646144, 2765915, 6105045, 2844846, 3703378, 3372957, 83493871, 4271341 #### [facility] Laboratory [address] [place] [address] [place] [facility] Quanton 01-08-2020 HCG.beta subunit Qn 898 m[IU]/mL High 1-3 [facility] Comment on above: Result Comment: GEST ATIONAL AGE HCG RANGE (mIU/mL) NON- <1-3 0.2-1 WEEKS 5-50 1-2 WEEKS 50-500 2-3 WEEKS 100-5,000 3-4 WEEKS 500-10,000 4-5 WEEKS 1,000-50,000 5-6 WEEKS 10,000-100,000 6-8 WEEKS 15,000-200,000 8-12 WEEKS 10,000-100,000 Performed By: #### 1 5071122, 4072074, 8858576, 3865448, 9469313, 6359631, 61538166, 9523416 #### [facility] Laboratory [address] [place] [address] Progesteroneon 01-08-2020 Progesterone [Mass/Vol] 27.90 ng/mL [facility] Comment on above: Result Comment: REFE RENCE RANGE Males 0.14-2.06 ng/mL Non- Females Follicular 0.10-0.60 ng/mL Luteal 3.00-17.5 ng/mL Midluteal 3.30-18.6 ng/mL Post-Menopausal 0.10-0.40 ng/mL First Trimester 8.30-66.5 ng/mL Second Trimester 18.9-66.1 ng/mL Third Trimester 35.8-312.4 ng/mL Performed By: #### 1 0479958, 2654243, 3514481, 1106540, 8241762, 3439514, 34772086, 0549868 #### [facility] Laboratory [address] [place] [address] Coding Summary.on 01-02-2020 Coding Summary. CODING DATE: 020 [facility] STATUS: Home (Routine [...] CphT Date Saved: 01/02/2020 10:23 am Normal [facility] Estradiolon 01-02-2020 E2 [Mass/Vol] 1694.0 pg/mL [facility] Comment on above: Result Comment: Adul t Female: Follicular phase 12.5 - 166.0 Ovulation phase 85.8 - 498.0 Luteal phase 43.8 - 211.0 Postmenopausal <6.0 - 54.7 1st trimester 215.0 - >4300.0 Girls (1-10 years) 6.0 - 27.0 Mal ECLIA methodology Performed at: [facility] [id number] PhD Subhash Coronel Performed By: #### 1 4430768, 6339736, 5619613, 4519322, 6897787, 8070842, 04936074, 2703279 #### [facility] Laboratory [address] [place] [address] BhCG Quanton 01-01-2020 HCG.beta subunit Qn 124 m[IU]/mL High 1-3 [facility] Comment on above: Result Comment: GEST ATIONAL AGE HCG RANGE (mIU/mL) NON- <1-3 0.2-1 WEEKS 5-50 1-2 WEEKS 50-500 2-3 WEEKS 100-5,000 3-4 WEEKS 500-10,000 4-5 WEEKS 1,000-50,000 5-6 WEEKS 10,000-100,000 6-8 WEEKS 15,000-200,000 8-12 WEEKS 10,000-100,000 Performed By: #### 1 [id number], 5233752, 9462153, 7267185, 5182950, 3976857, 66848303, 8739251 #### [facility] Laboratory [address] [place] [address] Coding Summary.on 01-01-2020 Coding Summary. CODING DATE: [address] [facility] STATUS: Home (Routine DC) PAYOR: [place] ADMIT DX: REASON FOR VISIT DX: E28.9 [...] CphT Date Saved: 01/01/2020 02:22 pm Normal [facility] Progesteroneon 01-01-2020 Progesterone [Mass/Vol] 23.10 ng/mL [facility] Comment on above: Result Comment: REFE RENCE RANGE Males 0.14-2.06 ng/mL Non- Females Follicular 0.10-0.60 ng/mL Luteal 3.00-17.5 ng/mL Midluteal 3.30-18.6 ng/mL Post-Menopausal 0.10-0.40 ng/mL First Trimester 8.30-66.5 ng/mL Second Trimester 18.9-66.1 ng/mL Third Trimester 35.8-312.4 ng/mL Performed By: #### 1 [id number], 8422841, 7460793, 5750443, 3168437, 0602754, 28144441, 0532225 #### [facility] Laboratory [address] [place] [address] Coding Summary.on 12-31-2019 Coding Summary. CODING DATE: 020 [facility] STATUS: Home (Routine [...] Putnam Date Saved: 12/31/2019 08:09 am Normal [facility] Estradiolon 12-30-2019 E2 [Mass/Vol] 1478.0 pg/mL [facility] Comment on above: Result Comment: Adul t Female: Follicular phase 12.5 - 166.0 Ovulation phase 85.8 - 498.0 Luteal phase 43.8 - 211.0 Postmenopausal <6.0 - 54.7 1st trimester 215.0 - >4300.0 Girls (1-10 years) 6.0 - 27.0 Mal ECLIA methodology Performed at: [facility] [id number] PhD Subhash Coronel Performed By: #### 1 [id number], 8659136, 5395646, 4939504, 9763832, 1735207, 74720571, 0380368 #### [facility] Laboratory [address] [place] [address] [facility] Quant 12-29-2019 HCG.beta subunit Qn 34 m[IU]/mL High 1-3 [facility] Comment on above: Result Comment: GEST ATIONAL AGE HCG RANGE (mIU/mL) NON- <1-3 0.2-1 WEEKS 5-50 1-2 WEEKS 50-500 2-3 WEEKS 100-5,000 3-4 WEEKS 500-10,000 4-5 WEEKS 1,000-50,000 5-6 WEEKS 10,000-100,000 6-8 WEEKS 15,000-200,000 8-12 WEEKS 10,000-100,000 Performed By: #### 1 [id number], 1371171, 1340494, 0386741, 0182726, 7609787, 14258952, 8544581 #### [facility] Laboratory [address] [place] [address] Progesteroneon 12-29-2019 Progesterone [Mass/Vol] 21.80 ng/mL [facility] Comment on above: Result Comment: REFE RENCE RANGE Males 0.14-2.06 ng/mL Non- Females Follicular 0.10-0.60 ng/mL Luteal 3.00-17.5 ng/mL Midluteal 3.30-18.6 ng/mL Post-Menopausal 0.10-0.40 ng/mL First Trimester 8.30-66.5 ng/mL Second Trimester 18.9-66.1 ng/mL Third Trimester 35.8-312.4 ng/mL Performed By: #### 1 [id number], 3884072, 2591822, 9553683, 3707144, 4796394, 73900714, 7138013 #### [facility] Laboratory [address] [place] [address] [place] [facility] Quanton 12-27-2019 HCG.beta subunit Qn 19 m[IU]/mL High 1-3 [facility] Comment on above: Result Comment: GEST ATIONAL AGE HCG RANGE (mIU/mL) NON- <1-3 0.2-1 WEEKS 5-50 1-2 WEEKS 50-500 2-3 WEEKS 100-5,000 3-4 WEEKS 500-10,000 4-5 WEEKS 1,000-50,000 5-6 WEEKS 10,000-100,000 6-8 WEEKS 15,000-200,000 8-12 WEEKS 10,000-100,000 Performed By: #### 1 [id number], 9663580, 5270691, 8859920, 3628569, 2312359, 33123109, 4702591 #### [facility] Laboratory [address] [place] [address] Progesteroneon 12-27-2019 Progesterone [Mass/Vol] 22.60 ng/mL [facility] Comment on above: Result Comment: REFE RENCE RANGE Males 0.14-2.06 ng/mL Non- Females Follicular 0.10-0.60 ng/mL Luteal 3.00-17.5 ng/mL Midluteal 3.30-18.6 ng/mL Post-Menopausal 0.10-0.40 ng/mL First Trimester 8.30-66.5 ng/mL Second Trimester 18.9-66.1 ng/mL Third Trimester 35.8-312.4 ng/mL Performed By: #### 1 8783089, 6206414, 7930552, 6649910, 6793573, 5899453, 66077920, 3928791 #### [facility] Laboratory [address] [place] [address] Coding Summary.on 12-25-2019 Coding Summary. CODING DATE: [address] [facility] STATUS: Home (Routine DC) PAYOR: [place] ADMIT DX: REASON FOR VISIT DX: E28.9 [...] CphT Date Saved: 12/22/2019 04:17 pm Normal [facility] Coding Summary. CODING DATE: [address] [facility] STATUS: PAYOR: Leela ADMIT DX: REASON [...] CphT Date Saved: 12/22/2019 04:17 pm Normal [facility] Estradiolon 12-23-2019 E2 [Mass/Vol] 1555.0 pg/mL [facility] Comment on above: Result Comment: Adul t Female: Follicular phase 12.5 - 166.0 Ovulation phase 85.8 - 498.0 Luteal phase 43.8 - 211.0 Postmenopausal <6.0 - 54.7 1st trimester 215.0 - >4300.0 Girls (1-10 years) 6.0 - 27.0 Mal ECLIA methodology Performed at: [facility] [address] [id number] PhD Subhash Coronel Performed By: #### 1 [id number], 6752571, 1149622, 6016984, 9030325, 5271275, 25312218, 2303937 #### [facility] Laboratory [address] [place] [address] Progesteroneon 12-22-2019 Progesterone [Mass/Vol] 25.40 ng/mL [facility] Comment on above: Result Comment: REFE RENCE RANGE Males 0.14-2.06 ng/mL Non- Females Follicular 0.10-0.60 ng/mL Luteal 3.00-17.5 ng/mL Midluteal 3.30-18.6 ng/mL Post-Menopausal 0.10-0.40 ng/mL First Trimester 8.30-66.5 ng/mL Second Trimester 18.9-66.1 ng/mL Third Trimester 35.8-312.4 ng/mL Performed By: #### 1 1182097, 0071081, 0391331, 6901297, 4266304, 9553266, 89502891, 8372133 #### [facility] Laboratory [address] [place] [address] Coding Summary.on 12-11-2019 Coding Summary. CODING DATE: [address] [facility] STATUS: Home (Routine DC) PAYOR: [place] APC DESCRIPTION 5522 Level 2 Imaging without [...] CphT Date Saved: 12/11/2019 12:51 pm Normal [facility] Estradiolon 12-09-2019 E2 [Mass/Vol] 1486.0 pg/mL [facility] Comment on above: Result Comment: Adul t Female: Follicular phase 12.5 - 166.0 Ovulation phase 85.8 - 498.0 Luteal phase 43.8 - 211.0 Postmenopausal <6.0 - 54.7 1st trimester 215.0 - >4300.0 Girls (1-10 years) 6.0 - 27.0 Mal ECLIA methodology Performed at: [facility] [address] [id number] PhD Subhash Croonel Performed By: #### 1 7476824, 4758125, 6507903, 5534401, 4108676, 5552116, 67273912, 1366468 #### [facility] Laboratory [address] [place] [address] LHon 12-09-2019 Lutropin Qn 6.2 m[IU]/mL [facility] Comment on above: Result Comment: Adul t Female: Follicular phase 2.4 - 12.6 Ovulation phase 14.0 - 95.6 Luteal phase 1.0 - 11.4 Postmenopausal 7.7 - 58.5 Performed at: [facility] [address] [id number] PhD Subhash Coronel Performed By: #### 1 8800504, 0167455, 3097164, 5766597, 2944686, 5110728, 75361508, 8174813 #### [facility] Laboratory [address] [place] [address] Progesteroneon 12-08-2019 Progesterone [Mass/Vol] ng/mL [facility] Comment on above: Result Comment: REFE RENCE RANGE Males 0.14-2.06 ng/mL Non- Females Follicular 0.10-0.60 ng/mL Luteal 3.00-17.5 ng/mL Midluteal 3.30-18.6 ng/mL Post-Menopausal 0.10-0.40 ng/mL First Trimester 8.30-66.5 ng/mL Second Trimester 18.9-66.1 ng/mL Third Trimester 35.8-312.4 ng/mL Performed By: #### 1 6502490, 2998571, 7921484, 1885435, 5150644, 9833403, 80265105, 5971831 #### [facility] [address] [place] [address] US Pelvis Non-OB Completeon 12-08-2019 US Pelvis [...] Transabdominal Ultrasound Performed Transvaginal Ultrasound Performed Normal [facility] US Transvaginal Non-OBon US Transvaginal Non-OB Exam Date/Time: 12/08/2019 07:42 EST Reason for Exam: OVARIAN DYSFUNCTION Report Please refer to prior transabdominal pelvic sonogram report. FINAL REPORT Dictated: 12/08/2019 12:35 pm Citlaly Buchanan MD Signed (Electronic Signature): 12/08/2019 12:35 pm Signed by: Citlaly Buchanan MD Transcribed by: [place] Technologist: JESSICA Normal [facility] Coding Summary.on 12-05-2019 Coding Summary. CODING DATE: 020 FINAL [facility] STATUS: Home (Routine DC) PAYOR: Leela APC [...] Coded By: Sergio De SantiagoTeri Date Saved: 12/05/2019 10:15 am Normal [facility] Estradiolon 12-05-2019 E2 [Mass/Vol] 1328.0 pg/mL [facility] Comment on above: Result Comment: Adul t Female: Follicular phase 12.5 - 166.0 Ovulation phase 85.8 - 498.0 Luteal phase 43.8 - 211.0 Postmenopausal <6.0 - 54.7 1st trimester 215.0 - >4300.0 Girls (1-10 years) 6.0 - 27.0 Mal ECLIA methodology Performed at: [address] [id number] PhD Subhash Coronel Performed By: #### 1 8051061, 9582289, 5617523, 7755980, 3331876, 4390664, 36570107, 6672112 #### [facility] Laboratory [address] [place] [address] LHon 12-05-2019 Lutropin Qn 7.2 m[IU]/mL [facility] Comment on above: Result Comment: Adul t Female: Follicular phase 2.4 - 12.6 Ovulation phase 14.0 - 95.6 Luteal phase 1.0 - 11.4 Postmenopausal 7.7 - 58.5 Performed at: [address] [id number] PhD Subhash Coronel Performed By: #### 1 6736688, 0781431, 5894045, 5623847, 1102474, 4762058, 09267192, 6800456 #### [facility] Laboratory [address] [place] [address] Progesteroneon 12-04-2019 Progesterone [Mass/Vol] ng/mL [facility] Comment on above: Result Comment: REFE RENCE RANGE Males 0.14-2.06 ng/mL Non- Females Follicular 0.10-0.60 ng/mL Luteal 3.00-17.5 ng/mL Midluteal 3.30-18.6 ng/mL Post-Menopausal 0.10-0.40 ng/mL First Trimester 8.30-66.5 ng/mL Second Trimester 18.9-66.1 ng/mL Third Trimester 35.8-312.4 ng/mL Performed By: #### 1 0101828, 3544124, 1657623, 4925155, 0992820, 4365322, 12255260, 9574904 #### [facility] [address] [place] [address] US Pelvis Non-OB Completeon 12-04-2019 US Pelvis [...] Transabdominal Ultrasound Performed Transvaginal Ultrasound Performed Normal [facility] US Transvaginal Non-OBon US Transvaginal Non-OB Exam Date/Time: 12/04/2019 07:41 EST Reason for Exam: OVARIAN DYSFUNCTION Report PLEASE REFER TO THE ULTRASOUND PELVIS NON-OB COMPLETE REPORT. FINAL REPORT Dictated: 12/04/2019 9:12 am Go Kaplan M.D. Signed (Electronic Signature): 12/04/2019 9:12 am Signed by: Go Kaplan M.D. Transcribed by: [place] Technologist: SYBIL Normal [facility] Coding Summary.on 12-01-2019 Coding Summary. CODING DATE: [address] [facility] STATUS: Home (Routine DC) PAYOR: Leela [...] Hill CphT Date Saved: 12/01/2019 12:45 pm Normal [facility] Estradiolon 12-01-2019 E2 [Mass/Vol] 945.3 pg/mL [facility] Comment on above: Result Comment: Adul t Female: Follicular phase 12.5 - 166.0 Ovulation phase 85.8 - 498.0 Luteal phase 43.8 - 211.0 Postmenopausal <6.0 - 54.7 1st trimester 215.0 - >4300.0 Girls (1-10 years) 6.0 - 27.0 Mal ECLIA methodology Performed at: [facility] [address] [place], [place] [id number] PhD Subhash Coronel Performed By: #### 1 8436511, 2273161, 8731602, 5160354, 0911828, 9958606, 13575838, 0574448 #### [facility] Laboratory [address] [place] [address] LHon 12-01-2019 Lutropin Qn 6.9 m[IU]/mL [facility] Comment on above: Result Comment: Adul t Female: Follicular phase 2.4 - 12.6 Ovulation phase 14.0 - 95.6 Luteal phase 1.0 - 11.4 Postmenopausal 7.7 - 58.5 Performed at: [facility] [address] [place], [place] [id number] PhD Subhash Coronel Performed By: #### 1 1041681, 3922443, 3639581, 7442377, 9958109, 4850766, 50862990, 5497158 #### [facility] Laboratory [address] [place] [address] Progesteroneon 11-30-2019 Progesterone [Mass/Vol] 0.10 ng/mL [facility] Comment on above: Result Comment: REFE RENCE RANGE Males 0.14-2.06 ng/mL Non- Females Follicular 0.10-0.60 ng/mL Luteal 3.00-17.5 ng/mL Midluteal 3.30-18.6 ng/mL Post-Menopausal 0.10-0.40 ng/mL First Trimester 8.30-66.5 ng/mL Second Trimester 18.9-66.1 ng/mL Third Trimester 35.8-312.4 ng/mL Performed By: #### 1 2944914, 0418665, 6717242, 7240964, 9811146, 3252054, 76953408, 6394396 #### [facility] Laboratory [address] [place] [address] US Pelvis Non-OB Completeon 11-30-2019 US Pelvis [...] 13:21 EST by Go Kaplan M.D. [facility] US Transvaginal Non-OBon US Transvaginal Non-OB Exam Date/Time: 11/30/2019 07:37 EST Reason for Exam: ovarian dysfunction Report PLEASE REFER TO THE ULTRASOUND PELVIS NON-OB COMPLETE REPORT. FINAL REPORT Dictated: 11/30/2019 9:01 am Go Kaplan M.D. Signed (Electronic Signature): 11/30/2019 9:01 am Signed by: Go Kaplan M.D. Transcribed by: [place] Technologist: JESSICA [facility] Coding Summary.on 11-24-2019 Coding Summary. CODING DATE: [address] [facility] STATUS: Home (Routine DC) PAYOR: [place] APC DESCRIPTION 5522 Level 2 Imaging without [...] Hill CphT Date Saved: 11/24/2019 08:[address] [facility] Estradiolon 11-24-2019 E2 [Mass/Vol] 35.2 pg/mL [facility] Comment on above: Result Comment: Adul t Female: Follicular phase 12.5 - 166.0 Ovulation phase 85.8 - 498.0 Luteal phase 43.8 - 211.0 Postmenopausal <6.0 - 54.7 1st trimester 215.0 - >4300.0 Girls (1-10 years) 6.0 - 27.0 Mal ECLIA methodology Performed at: [facility] [id number] [phone] PhD Subhash Coronel Performed By: #### 1 7136022, 9968298, 6811962, 7175863, 0672773, 2440631, 31192154, 7839873 #### [facility] Laboratory [address] [place] [address] FSH and LHon 11-24-2019 Follitropin Qn 8.7 m[IU]/mL [facility] Comment on above: Result Comment: [facility] Female: Follicular phase 3.5 - 12.5 Ovulation phase 4.7 - 21.5 Luteal phase 1.7 - 7.7 Postmenopausal 25.8 - 134.8 Performed at: [facility] [id number] [id number] PhD Subhash Coronel Performed By: #### 1 9540259, 5297350, 9803847, 5658278, 1205417, 4954628, 10578514, 0356414 #### [facility] Laboratory [address] [place] [address] Lutropin Qn 9.1 m[IU]/mL [facility] Comment on above: Result Comment: [facility] Female: Follicular phase 2.4 - 12.6 Ovulation phase 14.0 - 95.6 Luteal phase 1.0 - 11.4 Postmenopausal 7.7 - 58.5 Performed By: #### 1 9036226, 4717020, 4290649, 5466138, 8919766, 0050942, 66569293, 1921092 #### [facility] [address] [place] [address] BhCG Quanton 11-23-2019 HCG.beta subunit Qn m[IU]/mL Normal 1-3 [facility] Comment on above: Result Comment: GEST ATIONAL AGE HCG RANGE (mIU/mL) NON- <1-3 0.2-1 WEEKS 5-50 1-2 WEEKS 50-500 2-3 WEEKS 100-5,000 3-4 WEEKS 500-10,000 4-5 WEEKS 1,000-50,000 5-6 WEEKS 10,000-100,000 6-8 WEEKS 15,000-200,000 8-12 WEEKS 10,000-100,000 Performed By: #### 1 4078912, 2582987, 7620518, 8487909, 0941244, 0161122, 75623174, 8586934 #### [facility] [address] [place] [address] Progesteroneon 11-23-2019 Progesterone [Mass/Vol] 0.40 ng/mL [facility] Comment on above: Result Comment: REFE RENCE RANGE Males 0.14-2.06 ng/mL Non- Females Follicular 0.10-0.60 ng/mL Luteal 3.00-17.5 ng/mL Midluteal 3.30-18.6 ng/mL Post-Menopausal 0.10-0.40 ng/mL First Trimester 8.30-66.5 ng/mL Second Trimester 18.9-66.1 ng/mL Third Trimester 35.8-312.4 ng/mL Performed By: #### 1 5194688, 8073186, 5073379, 8113033, 1524234, 7002807, 31833323, 1003760 #### [facility] Laboratory [address] [place] [address] TSHon 11-23-2019 TSH Qn 0.76 mcIU/mL Normal 0.34-5.60 [facility] Comment on above: Performed By: #### 1 3261510, 2832771, 9047068, 4762067, 8404523, 8185420, 73133080, 5849181 #### [facility] [address] [place] [address] US Pelvis Non-OB Completeon 11-23-2019 US Pelvis [...] Transabdominal Ultrasound Performed Transvaginal Ultrasound Performed Normal [facility] US Transvaginal Non-OBon US Transvaginal Non-OB Exam Date/Time: 11/23/2019 07:40 EST Reason for Exam: OVARIAN DYSFUNCTION Report PLEASE REFER TO THE ULTRASOUND PELVIS NON-OB COMPLETE REPORT. FINAL REPORT Dictated: 11/23/2019 9:26 am Go Kaplan M.D. Signed (Electronic Signature): 11/23/2019 9:26 am Signed by: Go Kaplan M.D. Transcribed by: MADISON Technologist: JESSICA Normal [facility] Coding Summary.on 10-24-2019 Coding Summary. CODING DATE: [address] [facility] STATUS: Home (Routine DC) PAYOR: Leela APC DESCRIPTION 5414 Level 4 Gynecologic Procedures ADMIT DX: REASON FOR VISIT DX: O02.1 Missed FINAL DX: PRINCIPAL: O02.1 Missed SECONDARY: I10 Essential (primary) hypertension E03.9 Hypothyroidism, unspecified PYMT PROC APC STAT DESCRIPTION DOCTOR NAME DATE 23935 5414 J1 Treatment of missed Davie Grijalva MD 10/20/2019 , completed surgically; first trimester [address] Anesthesia for Davie Eaton Jr, DO 10/20/2019 incomplete or missed procedures NOTE: The code number assigned matches the documented diagnosis and / or procedure in the patient's chart. However, the narrative phrase printed from the coding software may appear abbreviated, or result in slightly different terminology. Revised Coded By: Althea Ortega Revised Date Saved: 10/24/2019 02:47 pm Normal [facility] Main OR Intraoperative Recor don 10-23-2019 Main OR Intraoperative Record IntraOp Document Type FT Summary Primary Physician: Davie Grijalva MD Finalized Date/Time: 10/23/19 11:48:56 Pt. Name: SUKHDEV SCHWARTZ./Sex: 1985 Female Med Rec #: [id number] Physician: Davie Grijalva MD Financial #: [id number] Pt. Type: A Room/Bed: [facility] Admit/Disch: 10/20/19 12:59:16 - 10/20/19 16:25:00 Institution: [...] 1 Entry 2 Entry 3 Case Attendee Geri Guerrero MD, Davie Castelan RN, Rena Role Performed Anesthesiologist Surgeon - Primary Telecommunications Analyst - Primary [place] Time In 10/20/19 14:00:00 10/20/19 14:16:00 10/20/19 14:00:00 Time Out 10/20/19 14:34:00 10/20/19 14:26:00 10/20/19 14:34:00 Procedure DILATATION and SUCTION DILATATION and SUCTION DILATATION and SUCTION CURETTAGE(.) CURETTAGE(.) CURETTAGE(.) Comments DR EATON SUPERVISING Last Modified By: Polo RN, Nona Cuellar RN, Nona Contreras RN 10/20/19 14:35:30 10/20/19 14:35:30 10/20/19 14:35:30 Entry 4 Entry 5 Case Attendee Polo GOODRICH, Mónica Bain CST Role Performed Telecommunications Analyst - Primary Scrub - Primary Time In 10/20/19 14:00:00 10/20/19 14:00:00 Time Out 10/20/19 14:34:00 10/20/19 14:34:00 Procedure DILATATION and SUCTION DILATATION and SUCTION CURETTAGE(.) CURETTAGE(.) Comments Last Modified By: Polo RN, Nona Contreras RN 10/20/19 14:35:30 10/20/19 14:35:30 Perioperative Protocols FT [...] (If Applicable) PreOp Antibiotic No Time Out Geri Guerrero, Given Participants Rudi GUSTAFSON, Annelise Pérez RN, Polo Chase RN, Armaan Franco CST, Mónica Time Out Complete 10/20/19 14:17:00 Outcomes Met? [...] and tissue Entry 1 Skin Integrity Intact, Freedom, Warm, and Skin Abnormality No Dry Outcomes [...] Correct Correct Time By Nona Cuellar RN, Rena Castelan RN, Costello Costello VENETIAN BLIND CLEANER AND REPAIRER, Mónica VENETIAN BLIND CLEANER AND REPAIRER, Mónica Outcomes Met? Yes Yes Last Modified By: Nona Cuellar RN, RN, Emily A 10/20/19 14:21:22 10/20/19 [...] RN Patient Status Stable Skin. Condition Intact, Freedom, Warm, and Dry Airway Maintenance Oxygen in Use? Yes Airway Device Simple Mask Flow Rate 8 L/min Outcomes Met? Yes Last Modified By: Nona Cuellar RN 10/20/19 14:35:23 Post-Care Text: The patient is free from signs and symptoms of injury related to transfer/transport General Comments: report given to summer internshipElayne mayo rn Dressing/Packing FT Pre-Care Text: Administers [...] STRAIGHT Present Upon Arrival No Inserted 16FR [[id number]][F] Insertion Date/Time 10/20/19 14:15:00 Insertion Site Uretheral [...] infection General Comments: specimen: products of conception. Eloise mayo rn Temperature Control Entry 1 Temperature Control BLANKET MISTRAL AIR Quantity 1 Aid TORSO [[id number]][F] Fluid/Durant Unit Mistral warming system Setting high/43 Body Site Upper anterior torso Last Modified By: Nona Cuellar RN 10/20/19 13:54:58 Case Comments Finalized By: Juanita Stein CST Document Signatures Signed By: Nona Cuellar RN 10/20/19 14:35 Juanita Stein CST 10/23/19 11:48 Normal [facility] Operative Reporton 0 Operative Report [...] Room in stable condition Originally transcribed by LEWIS on 10/21/2019, corrected by ZENY on 10/23/2019 Davie Grijalva MD, MICHAEL gls Dictated: 10/20/2019 #[id number] Typed: 10/23/2019 #[id number] cc: Davie Grijalva MD, MICHAEL [facility] Comment on above: Result Comment: Elec tronically Signed By: Rudi GUSTAFSON, Davie Duong\.br\Date and Time Signed: 10/23/19 08:04 EST Operative Report Date of Surgery: 10/20/2019 SURGEON: Davie Grijalva MD, MICHAEL PREOPERATIVE DIAGNOSIS: Inevitable miscarriage POSTOPERATIVE DIAGNOSIS: Inevitable miscarriage OPERATION: Dilation and suction curettage ANESTHESIA: General ANESTHESIOLOGIST: Geri Esteban [facility] PREOPERATIVE HISTORY: The patient is a 33-year-old [...] Room in stable condition Davie Grijalva MD, MICHAEL obrien Dictated: 10/20/2019 #[id number] Typed: 10/21/2019 #[id number] cc: Davie Grijalva MD, [facility] Comment on above: Result Comment: Elec tronically Signed By: Rudi GUSTAFSON, Davie Duong\.br\Date and Time Signed: 10/22/19 09:39 EST Other Comment: DISRE FRANKO, DO NOT USE THIS REPORT Progress Note-Physicianon [...] All Problems Ovarian dysfunction / SNOMED CT 70459598 / Confirmed Hypothyroidism / SNOMED CT 78310298 / Confirmed Incomplete miscarriage / SNOMED CT 318549813 / Confirmed missed Pancreatitis / SNOMED CT 265326486 / Confirmed Histories Past Medical History: No active or resolved past medical history items have been selected or recorded. Family History: Diabetes mellitus type 2 Mother Thyroid cancer Mother Sister Procedure history: Cholecystectomy ([id number]) on 07/19/2019 at 33 Years. DIAGNOSTIC LAPAROSCOPY [...] results Radiology results ECG interpretation Condition Plan [place] [employer] (ASA) physical status classification: Class II. Anesthetic Preoperative Plan Anesthesia: General. . Anesthetic plan, risks, benefits, and alternatives discussed with the patient and/or family. Risks discussed: nausea, vomiting, headache, sore throat, dental injury, serious complications. Patient verbalized understanding. Communication: face to face with (patient 5 minutes, Pt educated on the importance of smoking cessation.). [facility] Comment on above: Result Comment: Elec tronically Signed By: Davie Eaton Jr, DO\.yvonne\Date and Time Signed: 10/23/19 07:34 EST Coding Summary.on 10-20-2019 Coding Summary. CODING DATE: [address] [facility] STATUS: Home (Routine DC) PAYOR: Commercial [...] Hill CphT Date Saved: 10/20/2019 09:01 am Normal [facility] History and Physicalon 10-20 History [...] Davie Grijalva MD, FACOG gls Dictated: 10/20/2019 #[id number] Typed 10/20/2019 #[id number] cc: Davie Grijalva MD, FACOG Normal [facility] Comment on above: Result Comment: Elec tronically Signed By: Rudi GUSTAFSON, Davie Duong\.br\Date and Time Signed: 10/20/19 10:15 EST Inpatient Patient Summaryon 10-20-2019 Inpatient Patient Summary [address] [address] [facility] Clinical Discharge Instructions PERSON INFORMATION Name: SUKHDEV SCHWARTZ [facility]#:[id number] PHYSICIANS Admitting Physician: Davie Grijalva MD Attending Physician: Davie Grijalva MD PCP: LOLI MATIAS MD Discharge Diagnosis: Hypothyroidism; Incomplete miscarriage; Status post dilation and curettage Comment: PATIENT EDUCATION INFORMATION Instructions: Post Op Patient Instructions - FT (CUSTOM); FIELD [employer] 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 MEDICATION LIST New Medications [facility] [address], [address], [place] [id number], [phone] ibuprofen (ibuprofen 600 mg Tab) 1 Tablets [...] Mouth 2 times a day. Comment: Normal [facility] Main OR PACU I Recordon Main OR PACU I Record PACU Phase I Document Type FT Summary Primary Physician: Davie Grijalva MD Finalized Date/Time: 10/20/19 14:55:25 Pt. Name: SEN SCHWARTZTRUMAN Garcia./Sex: 1985 Female Med Rec #: [id number] Physician: Davie Grijalva MD Financial #: [id number] Pt. Type: A Room/Bed: [facility] [...] By: Carin Iverson RN 10/20/19 14:55 Normal [facility] Main OR Preoperative Recordo n 10-20-2019 Main OR Preoperative Record PreOp Document Type FT Summary Primary Physician: Davie Grijalva MD Finalized Date/Time: 10/20/19 14:24:04 Pt. Name: SUKHDEV SCHWARTZ Antoni HoltB./Sex: 1985 Female Med Rec #: [id number] Physician: Davie Grijalva MD Financial #: [id number] Pt. Type: A Room/Bed: Admit/Disch: 10/20/19 12:59:16 - Institution: Case Times [...] By: Nona Cuellar RN 10/20/19 14:24 Normal [facility] Patient Education - Texton 0 [...] cramps. PLEASE CALL FOR ANY PROBLEMS Normal [facility] Coding Summary.on 10-19-2019 Coding Summary. CODING DATE: [address] [facility] STATUS: Home (Routine DC) PAYOR: Commercial [...] CphT Date Saved: 10/19/2019 12:19 pm Normal [facility] RPRon 10-19-2019 Reagin Ab RPR Ql (S) Non-Reactive Normal Non-Reactiv e [facility] Comment on above: Performed By: #### 1 [id number], 8400915, 1249072, 6160379, 5187024, 3135480, 49364908, 1824770 #### [facility] Laboratory [address] [place] [address] ABO/Rh Retypeon 10-17-2019 ABO/Rh Retype Interp Positive [facility] Comment on above: Performed By: #### 1 7097424, 5551774, 3648743, 7305453, 1167277, 9136448, 60289631, 4894268 #### [facility] Laboratory [address] [place] [address] BUNon 10-17-2019 Urea nitrogen [Mass/Vol] 12 mg/dL Normal 5-21 [facility] Comment on above: Performed By: #### 1 2732859, 9941979, 1987032, 8148730, 2719182, 7230012, 22158866, 3961019 #### [facility] Laboratory [address] [place] [address] CBC w/Indiceson 10-17-2019 Erythrocyte distribution width (RBC) [Ratio] 12.7 % Normal 10.9-14.2 [facility] Comment on above: Performed By: #### 1 7966958, 4711059, 5161872, 1000244, 1130201, 6770199, 88014877, 0402418 #### [facility] Laboratory [address] [place] [address] Hematocrit (Bld) [Volume fraction] 34.6 % Normal 34.0-46.0 [facility] Comment on above: Performed By: #### 1 9354337, 3363649, 6492227, 6330878, 6233198, 9105857, 88646573, 5069337 #### [facility] Laboratory [address] [place] [address] Hemoglobin (Bld) [Mass/Vol] 11.7 g/dL Low 12.0-16.0 [facility] Comment on above: Performed By: #### 1 8480835, 0916785, 1055553, 3427986, 5971215, 5744361, 32615061, 8545689 #### [facility] Laboratory [address] [place] [address] MCH (RBC) [Entitic mass] 30.7 pg Normal 27.0-34.0 [facility] Comment on above: Performed By: #### 1 3324583, 2158244, 8577686, 0831578, 5911140, 0732072, 62222242, 8339139 #### [facility] Laboratory [address] [place] [address] MCHC (RBC) [Mass/Vol] 33.8 g/dL Normal 31.4-36.0 [facility] Comment on above: Performed By: #### 1 4584348, 0520046, 4880067, 2135726, 6378602, 7541056, 66707570, 0795097 #### [facility] Laboratory [address] [place] [address] MCV (RBC) [Entitic vol] 90.8 fL Normal 80.0-100.0 [facility] Comment on above: Performed By: #### 1 9443109, 0809703, 8632517, 7508821, 8857160, 3365809, 01231021, 5102139 #### [facility] Laboratory [address] [place] [address] Platelet mean volume (Bld) [Entitic vol] 7.5 fL Normal 6.4-10.8 [facility] Comment on above: Performed By: #### 1 3798820, 3022731, 6494079, 9378118, 4767518, 2825494, 37615427, 1218970 #### [facility] Laboratory [address] [place] [address] Platelets (Bld) [#/Vol] 319.0 E9/L Normal 150.0-500.0 [facility] Comment on above: Performed By: #### 1 8404507, 9438304, 0362422, 7800436, 1913400, 1596371, 15247176, 7341576 #### [facility] Laboratory [address] [place] [address] RBC (Bld) [#/Vol] 3.8 E12/L Low 4.3-5.9 [facility] Comment on above: Performed By: #### 1 8028663, 2213120, 3048741, 8093341, 4029684, 2415453, 91627689, 8392372 #### [facility] Laboratory [address] [place] [address] WBC corrected for nucl RBC Auto (Bld) [#/Vol] 6.1 E9/L Normal 4.0-11.0 [facility] Comment on above: Performed By: #### 1 7138901, 4991393, 7126998, 3776295, 9649816, 3484366, 73069092, 2405374 #### [facility] Laboratory [address] [place] [address] Creatinineon 10-17-2019 Creatinine [Mass/Vol] 0.6 mg/dL Normal 0.5-1.3 [facility] Comment on above: Performed By: #### 1 2306132, 0168103, 3358491, 7897832, 9975534, 5717097, 29011454, 2061293 #### [facility] Laboratory [address] [place] [address] Lyteson 10-17-2019 Anion gap [Moles/Vol] 12 mmol/L Normal 6-16 [facility] Comment on above: Performed By: #### 1 6753085, 1157832, 6096159, 5666200, 9108230, 7888028, 73568750, 6462330 #### [facility] Laboratory [address] [place] [address] Chloride [Moles/Vol] 109 mmol/L Normal 101-111 [facility] Comment on above: Performed By: #### 1 2142122, 2651981, 2212266, 4460853, 0111994, 7047314, 03976909, 1087237 #### [facility] Laboratory [address] [place] [address] CO2 [Moles/Vol] 26 mmol/L Normal 21-31 [facility] Comment on above: Performed By: #### 1 3342745, 6280607, 3119483, 0359091, 4927584, 1229060, 29032454, 4807806 #### [facility] Laboratory [address] [place] [address] Potassium [Moles/Vol] 4.3 mmol/L Normal 3.5-5.3 [facility] Comment on above: Performed By: #### 1 3653433, 4136590, 2814010, 2617027, 1317734, 4413229, 24420810, 8294209 #### [facility] Laboratory [address] [place] [address] Sodium [Moles/Vol] 143 mmol/L Normal 135-145 [facility] Comment on above: Performed By: #### 1 6048184, 2311435, 5268243, 8320614, 9080502, 8046544, 04675053, 8839278 #### [facility] Laboratory [address] [place] [address] PT & PTTon 10-17-2019 aPTT Coag (PPP) [Time] 29.9 second(s) Normal 25.1-36.5 [facility] Comment on above: Result Comment: Hepa rin therapeutic range (represented by Anti-Factor Xa activity of 0.2 - 0.4 U/mL) corresponds to PTT of 56.6 - 109.0 sec. Performed By: #### 1 8966059, 9633912, 5944871, 1731795, 1341005, 5258124, 61496547, 7879725 #### [facility] Laboratory [address] [place] [address] INR Coag (PPP) [Relative time] 1.0 {INR} [facility] Comment on above: Result Comment: INR results are specifically intended to assess patients stabilized on long-term Anticoagulation therapy suggested INR?s ?Less Intensive Anticoagulation? 2.0 ? 3.0 Conventional Range 3.0 ? 4.5 Performed By: #### 1 9041665, 3126215, 7369934, 2223484, 1533205, 6280445, 98348594, 6285848 #### [facility] Laboratory [address] [place] [address] PT Coag (PPP) [Time] 11.0 second(s) Normal 10.2-12.9 [facility] Comment on above: Performed By: #### 1 4202824, 1006226, 4449557, 2630061, 4636605, 9784007, 59433696, 0227354 #### [facility] Laboratory [address] [place] [address] eGFRon 10-17-2019 GFR/1.73 sq M predicted among blacks MDRD (S/P/Bld) [Vol rate/Area] mL/min/{1.73_m2} Normal >=59 [facility] Comment on above: Order Comment: Order added by Discern Expert. Result Comment: eGFR is race adjusted. AA=. Performed By: #### 1 1283178, 7347649, 7802930, 9742469, 3005510, 5805667, 97116559, 5821925 #### [facility] Laboratory [address] [place] [address] GFR/1.73 sq M predicted among non-blacks MDRD (S/P/Bld) [Vol rate/Area] mL/min/{1.73_m2} Normal >=59 [facility] Comment on above: Order Comment: Order added by Discern Expert. Result Comment: Field Laboratory Operator ivan kidney disease could be indicated at eGFR's of less than 60 mL/min/1.73m2. Kidney failure is indicated at less than 15 mL/min/1.73m2. Performed By: #### 1 8800123, 8486784, 3470801, 2975249, 1444868, 0883425, 69654555, 3153790 #### [facility] Laboratory [address] [place] [address] Coding Summary.on 10-12-2019 Coding Summary. CODING DATE: [facility] STATUS: Home (Routine [...] CphT Date Saved: 10/12/2019 12:46 pm Normal [facility] BhCG Quanton 10-09-2019 HCG.beta subunit Qn 1862 m[IU]/mL High 1-3 Fi [facility] Comment on above: Result Comment: GEST ATIONAL AGE HCG RANGE (mIU/mL) NON- <1-3 0.2-1 WEEKS 5-50 1-2 WEEKS 50-500 2-3 WEEKS 100-5,000 3-4 WEEKS 500-10,000 4-5 WEEKS 1,000-50,000 5-6 WEEKS 10,000-100,000 6-8 WEEKS 15,000-200,000 8-12 WEEKS 10,000-100,000 Performed By: #### 1 4988880, 5931331, 0728676, 9476952, 7710322, 7709008, 40452271, 2642385 #### [facility] Laboratory [address] [place] [address] Coding Summary.on 10-06-2019 Coding Summary. CODING DATE: [facility] STATUS: Home (Routine [...] Coded By: Sergio De SantiagoTeri Date Saved: 10/06/2019 12:[address] [facility] US 1st Trimesteron 10-06-2019 US 1st [...] Size < Dates Uterus Position Anteverted Normal [facility] US Transvaginalon 10-06-2019 US Transvaginal Exam Date/Time: 10/05/2019 13:36 EST Reason for Exam: possible ectopic Report PLEASE REFER TO THE ULTRASOUND FIRST TRIMESTER REPORT. FINAL REPORT Dictated: 10/06/2019 10:35 am Go Kaplan M.D. Signed (Electronic Signature): 10/06/2019 10:35 am Signed by: Go Kaplan M.D. Transcribed by: [place] Technologist: COREY Normal [facility] BhCG Quanton 10-05-2019 HCG.beta subunit Qn 1726 m[IU]/mL High 1-3 [facility] Comment on above: Result Comment: GEST ATIONAL AGE HCG RANGE (mIU/mL) NON- <1-3 0.2-1 WEEKS 5-50 1-2 WEEKS 50-500 2-3 WEEKS 100-5,000 3-4 WEEKS 500-10,000 4-5 WEEKS 1,000-50,000 5-6 WEEKS 10,000-100,000 6-8 WEEKS 15,000-200,000 8-12 WEEKS 10,000-100,000 Performed By: #### 2 738300 ####[facility] [address] [place] [address] Coding Summary.on 10-04-2019 Coding Summary. CODING DATE: 019 [facility] STATUS: Home (Routine [...] CphT Date Saved: 10/04/2019 02:19 pm Normal [facility] Estradiolon 10-04-2019 E2 [Mass/Vol] 189.4 pg/mL [facility] Comment on above: Result Comment: [facility] t Female: Follicular phase 12.5 - 166.0 Ovulation phase 85.8 - 498.0 Luteal phase 43.8 - 211.0 Postmenopausal <6.0 - 54.7 1st trimester 215.0 - >4300.0 Girls (1-10 years) 6.0 - 27.0 Mal ECLIA methodology Performed at: [employer] [address] [id number] PhD Subhash Coronel Performed By: #### 2 102916, 1546733, 90326741, 8993817 ####[facility] [address] [place] [address] FSH and LHon 10-04-2019 Follitropin Qn 4.6 m[IU]/mL [facility] Comment on above: Result Comment: [facility] t Female: Follicular phase 3.5 - 12.5 Ovulation phase 4.7 - 21.5 Luteal phase 1.7 - 7.7 Postmenopausal 25.8 - 134.8 Performed at: [facility] [id number] PhD Sbuhash Coronel Performed By: #### 2 331070, 2772856, 74381420, 6342112 ####[facility] [address] [place] [address] Lutropin Qn 10.0 m[IU]/mL [facility] Comment on above: Result Comment: Adul t Female: Follicular phase 2.4 - 12.6 Ovulation phase 14.0 - 95.6 Luteal phase 1.0 - 11.4 Postmenopausal 7.7 - 58.5 Performed By: #### 2 887959, 9599306, 61852443, 4848143 ####[facility] [address] [place] [address] BhCG Quanton 10-03-2019 HCG.beta subunit Qn 1625 m[IU]/mL High 1-3 Fi [facility] Comment on above: Result Comment: GEST ATIONAL AGE HCG RANGE (mIU/mL) NON- <1-3 0.2-1 WEEKS 5-50 1-2 WEEKS 50-500 2-3 WEEKS 100-5,000 3-4 WEEKS 500-10,000 4-5 WEEKS 1,000-50,000 5-6 WEEKS 10,000-100,000 6-8 WEEKS 15,000-200,000 8-12 WEEKS 10,000-100,000 Performed By: #### 2 650797 ####[facility] [address] [place] [address] Progesteroneon 10-03-2019 Progesterone [Mass/Vol] 7.80 ng/mL [facility] Comment on above: Result Comment: REFE RENCE RANGE Males 0.14-2.06 ng/mL Non- Females Follicular 0.10-0.60 ng/mL Luteal 3.00-17.5 ng/mL Midluteal 3.30-18.6 ng/mL Post-Menopausal 0.10-0.40 ng/mL First Trimester 8.30-66.5 ng/mL Second Trimester 18.9-66.1 ng/mL Third Trimester 35.8-312.4 ng/mL Performed By: #### 2 247126, 8756107, 88690742, 5144793 ####[facility] [address] [place] [address] TSHon 10-03-2019 TSH Qn 0.84 mcIU/mL Normal 0.34-5.60 [facility] Comment on above: Performed By: #### 2 798346, 4705583, 70417076, 5286776 ####[facility] [address] [place] [address] Coding Summary.on 09-28-2019 Coding Summary. CODING DATE: 019 [facility] STATUS: Home (Routine [...] Chau Date Saved: 09/28/2019 01:08 pm Normal [facility] BhCG Quanton 09-27-2019 HCG.beta subunit Qn 579 m[IU]/mL High 1-3 [facility] Comment on above: Result Comment: GEST ATIONAL AGE HCG RANGE (mIU/mL) NON- <1-3 0.2-1 WEEKS 5-50 1-2 WEEKS 50-500 2-3 WEEKS 100-5,000 3-4 WEEKS 500-10,000 4-5 WEEKS 1,000-50,000 5-6 WEEKS 10,000-100,000 6-8 WEEKS 15,000-200,000 8-12 WEEKS 10,000-100,000 Performed By: #### 2 815750 ####[facility] [address] [place] [address] External Lab Vitamin B6on Vitamin B6 4.4 [facility] Vitamin Aon 09-20-2019 Vitamin A 75.2 [facility] Vitamin B1on 09-20-2019 Thiamine (Vitamin B1) 116.7 [facility] Zincon 09-20-2019 Zinc 97 [facility] Coding Summary.on 09-18-2019 Coding Summary. CODING DATE: [address] [facility] STATUS: Home (Routine DC) PAYOR: Commercial [...] CphT Date Saved: 09/18/2019 01:21 pm Normal [facility] EXT LAB FERRITINon 9 Ferritin [Mass/Vol] 55 ng/mL [facility]alth External Lab Ironon 09-18-20 19 Iron [Mass/Vol] 89 ug/dL mcg/mL [facility] h External Lab Vitamin D, 25-O Hon 09-18-2019 Vitamin D, 25-[place] 43.9 [facility] External Vitamin B12 and Fol ateon 09-18-2019 Cobalamin (Vitamin B12) [Mass/Vol] 291 pg/mL [facility] Folate 22.3 ng/mL Off scale high [facility] Interpretation and review of laboratory results Abnormal [facility] Vit Aon 09-18-2019 Retinol [Mass/Vol] 75.2 microgram/dL High 18.9-57.3 [facility] Comment [...] the Food and Drug Administration. Performed at: [address] [id number] MD Keegan Limon Performed By: #### 2 588628, 6109342, 8230535, 7303998, 079328572, 46450660, 54054387, 57316583, 52394806 ####[facility] [address] [place] [address] Vit B1on 09-18-2019 Thiamine (Bld) [Moles/Vol] 116.7 nmol/L 66.5-200.0 [facility] Comment on above: Result Comment: This test was developed and its performance characteristics determined by [facility]. It has not been cleared or approved by the Food and Drug Administration. Performed at: [address] [id number] MD Keegan Limon Performed By: #### 2 861830, 9341974, 5780480, 2224038, 764347362, 97686321, 89488364, 19264974, 46803089 ####[facility] [address] [place] [address] Vitamin B6on 09-18-2019 Pyridoxine [Mass/Vol] 4.4 microgram/L 2.0-32.8 [facility] Comment on above: Result Comment: This test was developed and its performance characteristics determined by [facility]. It has not been cleared or approved by the Food and Drug Administration. Performed at: [address] [id number] MD Keegan Limon Performed By: #### 2 749389, 5320601, 3487621, 3842256, 589847818, 85121338, 13114291, 47934900, 64184458 ####[facility] [address] [place] [address] Zinc Lvlon 09-18-2019 Zinc [Mass/Vol] 97 microgram/dL 56-134 [facility] Comment on above: Result Comment: This test was developed and its performance characteristics determined by [facility]. It has not been cleared or approved by the Food and Drug Administration. Detection Limit = 5 Performed at: [address] [id number] MD Keegan Limon Performed By: #### 2 852803, 0012785, 5424516, 7519232, 054419256, 94297346, 37920510, 06369196, 16395581 ####[facility] [address] [place] [address] Coding Summary.on 09-15-2019 Coding Summary. CODING DATE: [address] [facility] STATUS: Home (Routine DC) PAYOR: Commercial [...] CphT Date Saved: 09/15/2019 02:01 pm Normal [facility] Estradiolon 09-14-2019 E2 [Mass/Vol] 929.6 pg/mL [facility] Comment on above: Result Comment: Adul t Female: Follicular phase 12.5 - 166.0 Ovulation phase 85.8 - 498.0 Luteal phase 43.8 - 211.0 Postmenopausal <6.0 - 54.7 1st trimester 215.0 - >4300.0 Girls (1-10 years) 6.0 - 27.0 Mal ECLIA methodology Performed at: [facility] [address] [id number] PhD Subhash Coronel Performed By: #### 2 358832, 8613683 ####[facility] [address] [place] [address] BhCG Quanton 09-13-2019 HCG.beta subunit Qn 132 m[IU]/mL High 1-3 [facility] Comment on above: Result Comment: GEST ATIONAL AGE HCG RANGE (mIU/mL) NON- <1-3 0.2-1 WEEKS 5-50 1-2 WEEKS 50-500 2-3 WEEKS 100-5,000 3-4 WEEKS 500-10,000 4-5 WEEKS 1,000-50,000 5-6 WEEKS 10,000-100,000 6-8 WEEKS 15,000-200,000 8-12 WEEKS 10,000-100,000 Performed By: #### 1 2181041, 4481055, 2095630, 1663214, 0452717, 4988381, 23499527, 1151674 #### [facility] Laboratory [address] [place] [address] Ferritinon 09-13-2019 Ferritin [Mass/Vol] 55 ng/mL Normal 11-307 [facility] Comment on above: Result Comment: NORM ALS MEN <30 YRS 16-132 ng/mL MEN >30 YRS 8-338 ng/mL WOMEN (PREMEN) 6-104 ng/mL WOMEN (POSTMEN) 12-210 ng/mL Performed By: #### 1 3997229, 0392730, 7132023, 0339022, 2749634, 7693165, 02925220, 7586336 #### [facility] Laboratory [address] [place] [address] Folateon 09-13-2019 Folate [Mass/Vol] ng/mL Normal >=6.7 [facility] Comment on above: Performed By: #### 1 9472908, 6015715, 5634088, 1123050, 1358180, 9115877, 83306872, 8665162 #### [facility] Laboratory [address] [place] [address] Ironon 09-13-2019 Iron [Mass/Vol] 89 microgram/dL Normal 35-153 [facility] Comment on above: Performed By: #### 1 0981620, 9357959, 2525442, 0444339, 5335418, 1975313, 78442724, 0610684 #### [facility] Laboratory [address] [place] [address] Progesteroneon 09-13-2019 Progesterone [Mass/Vol] 29.00 ng/mL [facility] Comment on above: Result Comment: REFE RENCE RANGE Males 0.14-2.06 ng/mL Non- Females Follicular 0.10-0.60 ng/mL Luteal 3.00-17.5 ng/mL Midluteal 3.30-18.6 ng/mL Post-Menopausal 0.10-0.40 ng/mL First Trimester 8.30-66.5 ng/mL Second Trimester 18.9-66.1 ng/mL Third Trimester 35.8-312.4 ng/mL Performed By: #### 2 682120, 3926677 ####[facility] [address] [place] [address] Vit B12on 09-13-2019 Cobalamin (Vitamin B12) [Mass/Vol] 291 pg/mL Normal 50-1500 [facility] Comment on above: Performed By: #### 2 995299, 5500641, 5459574, 8621595, 061031803, 44360565, 51517333, 99003823, 33015530 ####[facility] [address] [place] [address] Vitamin D 25 Hydroxyon 09-13 Calcidiol [Mass/Vol] 43.9 ng/mL Normal 30.0-100.0 [facility] Comment on above: Result Comment: Vit hutchinson D deficiency has been defined as a level of serum 25-OH vitamin D less than 20 ng/mL (1,2) by the [place] of [employer] and an Endocrine Society practice guideline. The Endocrine Society further defined vitamin D insufficiency as a level between 21 and 29 ng/mL (2). 1. IOM ([place] of [employer]). 2010. Dietary reference intakes for calcium and D. [place]: The National Academies Press. 2. Isaías MF, Renay NC, Foreign HUERTA, et al. Evaluation, treatment, and prevention of vitamin D deficiency: an Endocrine Society clinical practice guideline. JCEM. 2010; 96 (7):1911-30. Performed By: #### 2 441689, 9693474, 4175328, 4957547, 175284526, 34983108, 66293821, 89064783, 97169396 ####[facility] [address] [place] [address] Coding Summary.on 09-12-2019 Coding Summary. CODING DATE: [address] [facility] STATUS: Home ([facility] DC) PAYOR: Commercial Insurance ADMIT DX: REASON [...] CphT Date Saved: 09/12/2019 07:36 am Normal [facility] Estradiolon 09-12-2019 E2 [Mass/Vol] 1006.0 pg/mL [facility] Comment on above: Result Comment: Adul t Female: Follicular phase 12.5 - 166.0 Ovulation phase 85.8 - 498.0 Luteal phase 43.8 - 211.0 Postmenopausal <6.0 - 54.7 1st trimester 215.0 - >4300.0 Girls (1-10 years) 6.0 - 27.0 Mal ECLIA methodology Performed at: [employer] [id number] PhD Subhash Coronel Performed By: #### 1 7063170, 2676756, 2790684, 7091913, 2895789, 2296336, 48448667, 8917992 #### [facility] Laboratory [address] [place] [address] BhCG Quanton 09-11-2019 HCG.beta subunit Qn 121 m[IU]/mL High 1-3 [facility] Comment on above: Result Comment: GEST ATIONAL AGE HCG RANGE (mIU/mL) NON- <1-3 0.2-1 WEEKS 5-50 1-2 WEEKS 50-500 2-3 WEEKS 100-5,000 3-4 WEEKS 500-10,000 4-5 WEEKS 1,000-50,000 5-6 WEEKS 10,000-100,000 6-8 WEEKS 15,000-200,000 8-12 WEEKS 10,000-100,000 Performed By: #### 1 1612864, 1735283, 0002385, 2170662, 5803416, 8638069, 13374057, 4246004 #### [facility] Laboratory [address] [place] [address] Progesteroneon 09-11-2019 Progesterone [Mass/Vol] 26.60 ng/mL [facility] Comment on above: Result Comment: REFE RENCE RANGE Males 0.14-2.06 ng/mL Non- Females Follicular 0.10-0.60 ng/mL Luteal 3.00-17.5 ng/mL Midluteal 3.30-18.6 ng/mL Post-Menopausal 0.10-0.40 ng/mL First Trimester 8.30-66.5 ng/mL Second Trimester 18.9-66.1 ng/mL Third Trimester 35.8-312.4 ng/mL Performed By: #### 1 2689684, 0167433, 8423772, 1377411, 9198827, 5210582, 06684473, 2658219 #### [facility] [address] [place] [address] TSHon 09-11-2019 TSH Qn 0.88 mcIU/mL Normal 0.34-5.60 [facility] Comment on above: Performed By: #### 1 8594806, 6231492, 2028933, 2342756, 9961539, 2340651, 43106955, 8338887 #### [facility] [address] [place] [address] Coding Summary.on 09-10-2019 Coding Summary. CODING DATE: 019 [facility] STATUS: Home (Routine [...] Putnam Date Saved: 09/10/2019 02:11 pm Normal [facility] Lipase Levelon 09-08-2019 Lipase [Catalytic activity/Vol] U/L High 13-58 [facility] Comment on above: Result Comment: conf irmed by dilution Performed By: #### 1 4779407, 1956312, 9672380, 6699388, 0765751, 3834980, 41527010, 5758026 #### [facility] [address] [place] [address] BhCG Quanton 09-07-2019 HCG.beta subunit Qn 90 m[IU]/mL High 1-3 [facility] Comment on above: Result Comment: GEST ATIONAL AGE HCG RANGE (mIU/mL) NON- <1-3 0.2-1 WEEKS 5-50 1-2 WEEKS 50-500 2-3 WEEKS 100-5,000 3-4 WEEKS 500-10,000 4-5 WEEKS 1,000-50,000 5-6 WEEKS 10,000-100,000 6-8 WEEKS 15,000-200,000 8-12 WEEKS 10,000-100,000 Performed By: #### 1 1064408, 9227978, 4931154, 9953021, 8638166, 3529465, 69288194, 8512894 #### [facility] [address] [place] [address] Progesteroneon 09-07-2019 Progesterone [Mass/Vol] 23.40 ng/mL [facility] Comment on above: Result Comment: REFE RENCE RANGE Males 0.14-2.06 ng/mL Non- Females Follicular 0.10-0.60 ng/mL Luteal 3.00-17.5 ng/mL Midluteal 3.30-18.6 ng/mL Post-Menopausal 0.10-0.40 ng/mL First Trimester 8.30-66.5 ng/mL Second Trimester 18.9-66.1 ng/mL Third Trimester 35.8-312.4 ng/mL Performed By: #### 1 5783955, 0236625, 3330344, 6467743, 7544935, 2662898, 22055080, 1036229 #### [facility] [address] [place] [address] Coding Summary.on 09-05-2019 Coding Summary. CODING DATE: 019 [facility] STATUS: Home (Routine [...] CphT Date Saved: 09/05/2019 01:07 pm Normal [facility] Estradiolon 09-05-2019 E2 [Mass/Vol] 799.5 pg/mL [facility] Comment on above: Result Comment: Adul t Female: Follicular phase 12.5 - 166.0 Ovulation phase 85.8 - 498.0 Luteal phase 43.8 - 211.0 Postmenopausal <6.0 - 54.7 1st trimester 215.0 - >4300.0 Girls (1-10 years) 6.0 - 27.0 Mal ECLIA methodology Performed at: [employer] [id number] PhD Subhash Coronel Performed By: #### 1 1672000, 7095313, 4912325, 7761372, 0571297, 5981254, 11273944, 5292895 #### [facility] [address] [place] [address] Progesteroneon 09-04-2019 Progesterone [Mass/Vol] 39.30 ng/mL [facility] Comment on above: Result Comment: REFE RENCE RANGE Males 0.14-2.06 ng/mL Non- Females Follicular 0.10-0.60 ng/mL Luteal 3.00-17.5 ng/mL Midluteal 3.30-18.6 ng/mL Post-Menopausal 0.10-0.40 ng/mL First Trimester 8.30-66.5 ng/mL Second Trimester 18.9-66.1 ng/mL Third Trimester 35.8-312.4 ng/mL Performed By: #### 1 2387646, 7094394, 6091046, 7635544, 0211138, 2192527, 25035824, 2131627 #### [facility] [address] [place] [address] TSHon 09-04-2019 TSH Qn 0.83 mcIU/mL Normal 0.34-5.60 [facility] Comment on above: Performed By: #### 1 0975089, 7741081, 6464158, 1814835, 6514663, 2868765, 88917178, 3219545 #### [facility] [address] [place] [address] Coding Summary.on 08-23-2019 Coding Summary. CODING DATE: [address] [facility] STATUS: Home (Routine DC) PAYOR: Commercial [...] CphT Date Saved: 08/23/2019 01:15 pm Normal [facility] Estradiolon 08-23-2019 E2 [Mass/Vol] 903.5 pg/mL [facility] Comment on above: Result Comment: Adul t Female: Follicular phase 12.5 - 166.0 Ovulation phase 85.8 - 498.0 Luteal phase 43.8 - 211.0 Postmenopausal <6.0 - 54.7 1st trimester 215.0 - >4300.0 Girls (1-10 years) 6.0 - 27.0 Mal ECLIA methodology Performed at: [employer] [address] [id number] PhD Subhash Coronel Performed By: #### 1 6912165, 9557251, 0283863, 1846988, 2969508, 9718003, 37989469, 0495878 #### [facility] [address] [place] [address] LHon 08-23-2019 Lutropin Qn 7.7 m[IU]/mL [facility] Comment on above: Result Comment: Adul t Female: Follicular phase 2.4 - 12.6 Ovulation phase 14.0 - 95.6 Luteal phase 1.0 - 11.4 Postmenopausal 7.7 - 58.5 Performed at: [employer] [address] [id number] PhD Subhash Coronel Performed By: #### 1 3254932, 3361059, 7193344, 2555829, 8894616, 4924322, 01569185, 0901145 #### [facility] [address] [place] [address] Progesteroneon 08-22-2019 Progesterone [Mass/Vol] ng/mL [facility] Comment on above: Result Comment: REFE RENCE RANGE Males 0.14-2.06 ng/mL Non- Females Follicular 0.10-0.60 ng/mL Luteal 3.00-17.5 ng/mL Midluteal 3.30-18.6 ng/mL Post-Menopausal 0.10-0.40 ng/mL First Trimester 8.30-66.5 ng/mL Second Trimester 18.9-66.1 ng/mL Third Trimester 35.8-312.4 ng/mL Performed By: #### 1 9017695, 5380265, 6670364, 1504666, 2088031, 9965651, 06561515, 3662065 #### [facility] [address] [place] [address] Coding Summary.on 08-16-2019 Coding Summary. CODING DATE: 019 [facility] STATUS: Home (Routine [...] Coded By: Teri Hill CphT Date Saved: 08/16/2019 02:00 pm Normal [facility] Estradiolon 08-16-2019 E2 [Mass/Vol] 52.3 pg/mL [facility] Comment on above: Result Comment: Adul t Female: Follicular phase 12.5 - 166.0 Ovulation phase 85.8 - 498.0 Luteal phase 43.8 - 211.0 Postmenopausal <6.0 - 54.7 1st trimester 215.0 - >4300.0 Girls (1-10 years) 6.0 - 27.0 Mal ECLIA methodology Performed at: [address] [id number] PhD Subhash Coronel Performed By: #### 1 1576214, 7552931, 3175248, 1166771, 9537509, 7579009, 62641069, 2217103 #### [facility] [address] [place] [address] FSH and LHon 08-16-2019 Follitropin Qn 7.9 m[IU]/mL [facility] Comment on above: Result Comment: [facility] Female: Follicular phase 3.5 - 12.5 Ovulation phase 4.7 - 21.5 Luteal phase 1.7 - 7.7 Postmenopausal 25.8 - 134.8 Performed at: [address] [id number] PhD Subhash Coronel Performed By: #### 1 3272029, 7653150, 2241258, 8121500, 7880572, 9310839, 52709798, 2209813 #### [facility] [address] [place] [address] Lutropin Qn 9.8 m[IU]/mL [facility] Comment on above: Result Comment: [facility] Female: Follicular phase 2.4 - 12.6 Ovulation phase 14.0 - 95.6 Luteal phase 1.0 - 11.4 Postmenopausal 7.7 - 58.5 Performed By: #### 1 8767721, 4858237, 2020098, 2989286, 9859324, 7584895, 02562106, 9799599 #### [facility] [address] [place] [address] BhCG Quanton 08-15-2019 HCG.beta subunit Qn m[IU]/mL Normal 1-3 [facility] Comment on above: Result Comment: GEST ATIONAL AGE HCG RANGE (mIU/mL) NON- <1-3 0.2-1 WEEKS 5-50 1-2 WEEKS 50-500 2-3 WEEKS 100-5,000 3-4 WEEKS 500-10,000 4-5 WEEKS 1,000-50,000 5-6 WEEKS 10,000-100,000 6-8 WEEKS 15,000-200,000 8-12 WEEKS 10,000-100,000 Performed By: #### 1 7460493, 5523000, 8849391, 9261700, 5469634, 0246837, 89913102, 1178163 #### [facility] [address] [place] [address] Progesteroneon 08-15-2019 Progesterone [Mass/Vol] 0.20 ng/mL [facility] Comment on above: Result Comment: REFE RENCE RANGE Males 0.14-2.06 ng/mL Non- Females Follicular 0.10-0.60 ng/mL Luteal 3.00-17.5 ng/mL Midluteal 3.30-18.6 ng/mL Post-Menopausal 0.10-0.40 ng/mL First Trimester 8.30-66.5 ng/mL Second Trimester 18.9-66.1 ng/mL Third Trimester 35.8-312.4 ng/mL Performed By: #### 1 5008640, 6200211, 0268664, 8993730, 8119713, 2012989, 99151749, 4929279 #### [facility] [address] [place] [address] TSHon 08-15-2019 TSH Qn 1.05 mcIU/mL Normal 0.34-5.60 [facility] Comment on above: Performed By: #### 1 5444058, 8836793, 1561514, 1034973, 4346423, 2938025, 05411759, 7914545 #### [facility] [address] [place] [address] Coding Summary.on 07-31-2019 Coding Summary. CODING DATE: 019 [facility] STATUS: Home (Routine DC) PAYOR: Commercial Insurance ADMIT DX: REASON FOR VISIT DX: K85.10 Biliary acute pancreatitis without necrosis or infection FINAL DX: PRINCIPAL: K85.10 Biliary acute pancreatitis without necrosis or infection SECONDARY: Z98.890 Other specified postprocedural states Z79.899 Other intermediate designer (current) drug therapy PROCEDURES DOCTOR NAME DATE NOTE: The code number assigned matches the documented diagnosis and / or procedure in the patient's chart. However, the narrative phrase printed from the coding software may appear abbreviated, or result in slightly different terminology. Coded By: Teri Hill CphT Date Saved: 07/31/2019 10:30 am Normal [facility] ED Note-Physicianon 07-28-20 ED Note-Physician Basic Information Time Seen: Oswaldo Fischer PA-C 07/17/2019 21:52 Chief Complaint pt has complaints of abdominal pain nausea and vomiting since 2am, states lab work done at [place] today liver enzymes were elevated history of [...] Bergeron discussed with Dr. Goel, trauma surgeon international account manager, and Dr. Alvarado, hospitalist international account manager, about patient, history, labs, and imaging findings consistent acute pancreatitis and common bile duct obstruction, patient be admitted to hospitalist services, and consult with Dr. Reddy, GI doctor on-call for possible SPRAYER LEATHER in the morning. Dr. Alvarado admitted patient [...] was treated and evaluated by the Physician [place]. The attending physician was Dr. Bergeron in [...] Auto: 6.4 % Low (07/17/19 22:12:00 EDT) [place]ell Auto: 5.5 % (07/17/19 22:12:00 EDT) Eos Auto: 0.6 % (07/17/19 22:12:00 EDT) Basophil Auto: 0.3 % (07/17/19 22:12:00 EDT) Neutro Absolute: 11.3 E9/L High (07/17/19 22:12:00 EDT) Lymph Absolute: 0.8 E9/L Low (07/17/19 22:12:00 EDT) Cabell Absolute: 0.7 E9/L (07/17/19 22:12:00 EDT) Eos [...] Diagnostic Results No qualifying data available. 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 Still waiting for [facility] paperwork which she'll fax to us. [...] a 33 Years Female who presented to [facility] [place] on 07/18/2019 with gallstone pancreatitis and is now POD#9 s/p lap aidee. She is recovering well. She can keep covering the periumbilical incision with Bandaid until it heals. I reviewed path report with her. She can follow-up with us PRN. We will fill out [facility] paperwork for her when we receive it. Follow-up No qualifying data available Problem List/Past Medical History Ongoing Pancreatitis Historical No qualifying data Procedure/Surgical History Cholecystectomy (07/19/2019), DIAGNOSTIC LAPAROSCOPY , DIAGNOSTIC HYSTEROSCOPY (03/31/2019), microdissectomy l4-6 (12/2016), gastric sleeve (2017). Medications levothyroxine 50 mcg (0.05 mg) Tab, [...] REACTIVE LYMPH NODE WITH FOLLICULAR HYPERPLASIA. Normal [facility] Comment on above: Result Comment: Elec tronically Signed By: Garrett GUSTAFSON, Marina Fields\.br\Date and Time Signed: 07/28/19 09:13 EDT Coding Summary.on 07-24-2019 Coding Summary. CODING DATE: [address] [facility] STATUS: Home (Routine DC) PAYOR: Commercial Insurance Grouper: 419 MS-DRG Laparoscopic cholecystectomy w/o c.d.e. w/o CC/HALFWAY Low Trim 0 High Trim 999 263 [...] (BMI) 34.0-34.9, adult PROCEDURES DOCTOR NAME DATE [id number] Resection of Gallbladder, Amando GUSTAFSON, Javan Stevens 07/19/2019 Percutaneous Endoscopic Approach [id number] Extirpation of Matter from Abhinav REDDY MD 07/18/2019 Common Bile Duct, Via Natural or Artificial Opening Endoscopic [id number] Fluoroscopy of Bile Ducts using Abhinav REDDY MD 07/18/2019 Low Osmolar Contrast NOTE: The code number assigned matches the documented diagnosis and / or procedure in the patient's chart. However, the narrative phrase printed from the coding software may appear abbreviated, or result in slightly different terminology. Revised Coded By: Kat Del Rosario Revised Date Saved: 07/24/2019 07:27 am Normal [facility] Progress Note-Physicianon Progress Note-Physician Patient: [...] All Problems Ovarian dysfunction / SNOMED CT 02026000 / Confirmed Hypothyroidism / SNOMED CT 40843250 / Confirmed Pancreatitis / SNOMED CT 956084134 / Confirmed Histories Past Medical History: No active or resolved past medical history items have been selected or recorded. Social History Social & Psychosocial Habits Alcohol 03/27/2019 Risk Assessment: Denies Alcohol Use 04/21/2019 Concerns about alcohol use in household: No Comment: The patient denies any alcohol use, tobacco use, or substance abuse. - 04/21/2019 01:38 - Charly GOODRICH, Jeanette Guerra 07/17/2019 Use: Current Comment: Denies - 07/17/2019 [...] - 07/17/2019 21:14 - Kiel GOODRICH, Yaneli Turciso. Physical Examination Airway: Mallampati classification: II (soft palate, fauces, uvula visible). Respiratory: Lungs are clear to auscultation. Cardiovascular: Regular rhythm. Neurologic: Alert, Oriented. Plan [place] [employer]esthesi[employer] (ASA) physical status classification: Class II. Anesthetic Preoperative Plan Anesthesia: General. . Anesthetic plan, risks, benefits, and alternatives discussed with the patient and/or family. Communication: face to face with (patient 5 minutes, Patient educated on smoking cesstation). Normal [facility] Comment on above: Result Comment: Elec tronically Signed By: Davie Eaton Jr, DO\.br\Date and Time Signed: 07/21/19 12:44 EDT Operative [...] then closed the umbilical fascia with multiple [id number]-[id number] 0 Vicryl sutures, then tied the stay [...] Gallbladder Javan Goel MD aek Dictated: 07/19/2019 #[id number] Typed: 07/20/2019 #[id number] cc: Javan Goel MD [facility] Comment on above: Result Comment: Elec tronically Signed By: Javan Goel MD\.br\Date and Time Signed: 07/20/19 11:04 EDT Auto Diffon 07-19-2019 Basophils/100 WBC (Bld) 0.2 % Normal 0.0-2.0 [facility] Comment on above: Order Comment: Order Added by Discern Expert. Performed By: #### 1 5460148, 6690371, 1399446, 5418735, 2535090, 1881648, 05584023, 9691977 #### [facility] [address] [place] [address] Basophils/Leukocyte s Auto (Bld) [Pure # fraction] 0.0 E9/L Normal 0.0-0.2 [facility] Comment on above: Order Comment: Order Added by Discern Expert. Performed By: #### 1 3926881, 0371385, 7889549, 1368237, 5999162, 6400617, 42130659, 2535477 #### [facility] [address] [place] [address] Eosinophils/100 WBC (Bld) 1.1 % Normal 0.0-8.0 [facility] Comment on above: Order Comment: Order Added by Discern Expert. Performed By: #### 1 4721330, 7104418, 5175586, 2712480, 4865591, 1532890, 92435899, 7043850 #### [facility] [address] [place] [address] Eosinophils/Leukocy dariel Auto (Bld) [Pure # fraction] 0.1 E9/L Normal 0.0-0.5 [facility] Comment on above: Order Comment: Order Added by Discern Expert. Performed By: #### 1 4556887, 8914633, 4540468, 3648454, 8091332, 1790521, 40311520, 5110021 #### [facility] [address] [place] [address] 13754 Lymphocytes/100 WBC (Bld) 11.9 % Low 14.0-50.0 [facility] Comment on above: Order Comment: Order Added by Discern Expert. Performed By: #### 1 6015324, 2899229, 7590993, 3531326, 3227525, 0815104, 82633078, 7247970 #### [facility] [address] [place] [address] Lymphocytes/Leukocy dariel Auto (Bld) [Pure # fraction] 1.1 E9/L Normal 1.0-4.0 [facility] Comment on above: Order Comment: Order Added by Discern Expert. Performed By: #### 1 5747720, 7038467, 6705583, 6694781, 4723164, 8713895, 25303803, 9508612 #### [facility] [address] [place] [address] 11670 Monocytes/100 WBC (Bld) 5.8 % Normal 4.0-14.0 [facility] Comment on above: Order Comment: Order Added by Discern Expert. Performed By: #### 1 7641648, 3075504, 6564585, 3235359, 9843608, 1038008, 92944931, 9009071 #### [facility] [address] [place] [address]90[address] Monocytes/Leukocyte s Auto (Bld) [Pure # fraction] 0.5 E9/L Normal 0.2-1.0 [facility] Comment on above: Order Comment: Order Added by Discern Expert. Performed By: #### 1 5574183, 9080599, 3141253, 2535064, 6961717, 8448434, 60596853, 6533313 #### [facility] [address] [place] [address] 72752 Neutrophils/100 WBC (Bld) 81.0 % High 36.0-75.0 [facility] Comment on above: Order Comment: Order Added by Discern Expert. Performed By: #### 1 4866040, 2541099, 5759880, 0808205, 1300168, 0345238, 08074159, 8849614 #### [facility] [address] [place] [address] Neutrophils/Leukocy dariel Auto (Bld) [Pure # fraction] 7.3 E9/L Normal 2.0-7.5 [facility] Comment on above: Order Comment: Order Added by Discern Expert. Performed By: #### 1 1579312, 2681265, 0094098, 2065430, 5131405, 2846561, 41138716, 9344313 #### [facility] [address] [place] [address] 37551 CBC w/ Auto Diffon Erythrocyte distribution width (RBC) [Ratio] 13.6 % Normal 10.9-14.2 [facility] Comment on above: Performed By: #### 1 5845688, 4335132, 8207191, 6276471, 4313381, 7454834, 45547245, 7770319 #### [facility] [address] [place] [address] 24526 Hematocrit (Bld) [Volume fraction] 30.5 % Low 34.0-46.0 [facility] Comment on above: Performed By: #### 1 5981297, 7075448, 5397244, 7503877, 3090864, 0369985, 64364602, 1861918 #### [facility] [address] [place] [address] 34029 Hemoglobin (Bld) [Mass/Vol] 10.8 g/dL Low 12.0-16.0 [facility] Comment on above: Performed By: #### 1 0495769, 8338649, 7401321, 3222791, 8536375, 3468025, 79883159, 6979764 #### [facility] [address] [place] [address] 48937 MCH (RBC) [Entitic mass] 31.4 pg Normal 27.0-34.0 [facility] Comment on above: Performed By: #### 1 5425874, 5741413, 3798920, 5151701, 8980683, 8418375, 05818439, 5243404 #### [facility] [address] [place] [address] MCHC (RBC) [Mass/Vol] 35.2 g/dL Normal 33.3-35.7 [facility] Comment on above: Performed By: #### 1 1610295, 9837511, 3586056, 2286250, 0751169, 3014929, 21766358, 0480341 #### [facility] [address] [place] [address] 05554 MCV (RBC) [Entitic vol] 89.0 fL Normal 80.0-100.0 [facility] Comment on above: Performed By: #### 1 3867940, 1878921, 3145777, 3802600, 1969823, 5010438, 99919991, 2705143 #### [facility] [address] [place] [address] 20544 Platelet mean volume (Bld) [Entitic vol] 7.4 fL Normal 6.4-10.8 [facility] Comment on above: Performed By: #### 1 4376057, 1880447, 0266367, 9337733, 0961585, 6603518, 67955404, 3398047 #### [facility] [address] [place] [address] 04812 Platelets (Bld) [#/Vol] 206.0 E9/L Normal 150.0-500.0 [facility] Comment on above: Performed By: #### 1 1910498, 8162212, 3976646, 4011160, 5410907, 9025848, 27721908, 2829138 #### [facility] [address] [place] [address] 51868 RBC (Bld) [#/Vol] 3.4 E12/L Low 4.3-5.9 [facility] Comment on above: Performed By: #### 1 5393765, 6604076, 6307307, 5058531, 4659070, 2488767, 17084857, 4673613 #### [facility] [address] [place] [address] 92436 WBC corrected for nucl RBC Auto (Bld) [#/Vol] 9.0 E9/L Normal 4.0-11.0 [facility] Comment on above: Performed By: #### 1 5411142, 7660098, 7019945, 6230767, 2079994, 7396811, 16645020, 3584730 #### [facility] [address] [place] [address] CMPon 07-19-2019 Albumin [Mass/Vol] 3.1 g/dL Low 3.3-5.0 [facility] Comment on above: Performed By: #### 1 1829514, 0908216, 4088680, 3926783, 6879806, 7534039, 26022123, 6351761 #### [facility] [address] [place] [address] Albumin [Mass/Vol] 1.3 g/dL Normal 1.1-2.2 [facility] Comment on above: Performed By: #### 1 2926417, 2662084, 8333832, 4726330, 2161228, 3117076, 76983658, 4573220 #### [facility] [address] [place] [address] 65041 ALP [Catalytic activity/Vol] 64 Int._Unit/L Normal 21-98 [facility] Comment on above: Performed By: #### 1 0767379, 5194096, 7436091, 5646904, 5493494, 8906004, 83330258, 3216359 #### [facility] [address] [place] [address] 56220 ALT No additional P-5'-P [Catalytic activity/Vol] 77 Int._Unit/L High 6-46 [facility] Comment on above: Performed By: #### 1 5047037, 3362021, 8205860, 0914922, 8918397, 6926852, 87139733, 6150034 #### [facility] [address] [place] [address] AST [Catalytic activity/Vol] 32 Int._Unit/L Normal 5-43 [facility] Comment on above: Performed By: #### 1 6783150, 6157263, 6279617, 0112466, 8314258, 8637889, 63579572, 2599081 #### [facility] [address] [place] [address] Bilirubin [Mass/Vol] 1.2 mg/dL High 0.0-1.1 [facility] Comment on above: Performed By: #### 1 2350251, 5589437, 5647559, 5442207, 0703028, 9115437, 05198638, 7026831 #### [facility] [address] [place] [address] Creatinine [Mass/Vol] 0.6 mg/dL Normal 0.5-1.3 [facility] Comment on above: Performed By: #### 1 0378718, 2433906, 4596631, 9314242, 8425974, 4699651, 92497471, 1028676 #### [facility] [address] [place] [address] Globulin (S) [Mass/Vol] 2.4 g/dL Normal 1.4-4.0 [facility] Comment on above: Performed By: #### 1 1147652, 8644135, 1561605, 6996454, 7141190, 7945585, [id number], [id number] #### [facility] [address] [place] [address] Protein [Mass/Vol] 5.5 g/dL Low 6.0-7.8 [facility] Comment on above: Performed By: #### 1 6872919, 9849044, 6050934, 1339483, 2120260, 5472936, 35849154, 5622045 #### [facility] [address] [place] [address] Urea nitrogen [Mass/Vol] 10 mg/dL Normal 5-21 [facility] Comment on above: Performed By: #### 1 6097776, 0310401, 0353151, 2150261, 1401185, 0254970, 97989591, 4901872 #### [facility] [address] [place] [address] Urea nitrogen/Creatinine [Mass ratio] 17 No Units Normal 10-20 [facility] Comment on above: Performed By: #### 1 8121778, 4693619, 7816226, 5777210, 1461171, 5145824, 07799332, 9491056 #### [facility] [address] [place] [address] Anion gap [Moles/Vol] 12 mmol/L Normal 6-16 [facility] Comment on above: Performed By: #### 1 9602839, 4166193, 1756309, 1506147, 5841669, 0493512, 60830288, 6439011 #### [facility] [address] [place] [address] Calcium [Mass/Vol] 8.5 mg/dL Low 8.9-11.1 [facility] Comment on above: Performed By: #### 1 6386123, 0143261, 2537210, 2141610, 3054263, 1381487, 55729672, 4332191 #### [facility] [address] [place] [address] Chloride [Moles/Vol] 109 mmol/L Normal 101-111 [facility] Comment on above: Performed By: #### 1 7063211, 5803068, 4834767, 7045767, 4816047, 5364063, 38607977, 5903379 #### [facility] [address] [place] [address] CO2 [Moles/Vol] 22 mmol/L Normal 21-31 [facility] Comment on above: Performed By: #### 1 8321138, 9587507, 9184547, 8524426, 9606351, 9311083, 70689688, 5541636 #### [facility] [address] [place] [address] Glucose [Mass/Vol] 99 mg/dL Normal 55-199 [facility] Comment on above: Result Comment: If t his glucose result represents a fasting glucose, interpretation should refer to the following reference range: 55-99 mg/dL Performed By: #### 1 5360005, 1281602, 3005367, 6387659, 3329501, 9666416, 98507224, 6442739 #### [facility] [address] [place] [address] Potassium [Moles/Vol] 3.7 mmol/L Normal 3.5-5.3 [facility] Comment on above: Performed By: #### 1 1096451, 2861482, 9381172, 8210460, 3607907, 1557117, 26304148, 4453369 #### [facility] [address] [place] [address] Sodium [Moles/Vol] 139 mmol/L Normal 135-145 [facility] Comment on above: Performed By: #### 1 1289025, 3111289, 6989429, 8797130, 0153591, 4472955, 41880262, 2694688 #### [facility] [address] [place] [address] Discharge Note-Nursingon Discharge Note-Nursing Pt taken to 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 and 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 with belongings by wheelchair and discharged home with family per personal vehicle Normal [facility] Inpatient Clinical Summaryon 07-19-2019 Inpatient Clinical Summary [address] [address] Clinical Summary Person Information: Name: SUKHDEV SCHWARTZ Age: 33 Years : 1985 12:00 AM Sex: Female PCP: LOLI MATIAS MD Marital Status: Phone: [phone] Race: White Ethnicity: Non- or Language: Marshallese Visit Id: Visit Reason: Vomiting; Nausea; Abdominal pain; COMMON DUCT OBSTRUCTION, ACUTE PANCREATITIS Speciality: Acuity: Enc Type: Inpatient Med Service: Medical Arrival: 07/17/2019 8:55 PM Discharge: Dispo Type: Admitted as IP to this [facility] Address: [address] [place] [address] [address] [place] [id number] Provider Notes: Diagnosis: 1:Acute gallstone pancreatitis; 2:Abnormal [...] Physician: Follow up: With: Address: When: Javan Goel [address] [place] [address] [address] [id number] [phone] Business (1) Within 7 to 10 days With: Address: When: LOLI MATIAS [facility] [place] [address] Business (1) 08/07/2019 7:30 AM Type Location Start [facility] Follow Up [facility] 09/12/2019 2:00 PM 09/12/2019 2:15 PM Confirmed Patient Education Information: Cholecystostomy Normal [facility] Inpatient Patient Summaryon 07-19-2019 Inpatient Patient Summary [address] [address] Patient Discharge Instructions PERSON INFORMATION Name: SUKHDEV SCHWARTZ Date of : 1985 12:00 AM Current Date: 07/19/19 19:38:22 PHYSICIANS Admitting Physician: Aron ALVARADO DO Primary Care Physician: LOLI MATIAS MD Comment: Discharge Diagnosis: 1:Acute gallstone pancreatitis; 2:Abnormal LFTs; 3:Common bile duct obstruction; 4:History of bariatric surgery; 5:Hypothyroidism; 6:History of herniated intervertebral disc; 7:Obesity Condition at Discharge: Improved SUKHDEV SCHWARTZ has been given the following [...] Follow up: With: Address: When: Javan Goel [address] [place] [address], [address], [address] [address] [phone] Business (1) Within 7 to 10 days With: Address: When: LOLI MATIAS [address] [place] [address] Business (1) 08/07/2019 7:30 AM In the event that this physician does not participate in your insurance network, please consult with your insurance company to find a nearby participating provider. Type Location [facility] 09/12/2019 2:00 PM 09/12/2019 2:15 PM Confirmed Comment: EFREN Bain BRITTANY F, have received the attached patient education materials/instructions and have verbalized understanding: Patient Signature __ Date Clinican/Nurse Signature Date HERE ARE THE MEDICATION CHANGES THAT OCCURRED DURING YOUR HOSPITAL STAY New Medications [facility] [address] [address] [id number], [phone] acetaminophen-hydrocodone (acetaminophen-hydrocodone 325 mg-5 mg oral tablet) [...] Mouth 2 times a day. [facility] Comment: PATIENT EDUCATION INFORMATION Instructions: Cholecystostomy [...] Document Reviewed: 12/31/2009 ExitCare? Patient Information ?2014 [employer]. This information is not intended to replace advice given to you by your health care provider. Make sure you discuss any questions you have with your health care provider. Medication Leaflets: Thank you for choosing [facility] Interdisciplinary Note - Arcadio e Manageron 07-19-2019 INR Coag (Bld) [Relative time] Rounding with Dr. Benjamin, Felicia ACEVEDO, Rosie [facility], and Agustina RN with another patient . No family in room. Patient is alert and oriented and participates in plan of care. Whiteboard updated. Discussed plan is to have surgery today to remove gall bladder and if does well possible dc later today. Patient does admit to vomiting once during night. Patient denies any questions or needs at discharge. she will update family on dc plans. [facility] Comment on above: Result Comment: Elec tronically Signed By: Andrzej GOODRICH, Felicia\.br\Date and Time Signed: 07/19/19 09:10 EDT Main OR Intraoperative Recor don 07-19-2019 Main OR Intraoperative Record IntraOp Document Type FT Summary Primary Physician: Javan Goel MD Finalized Date/Time: 07/19/19 14:22:14 Pt. Name: SUKHDEV SCHWARTZ./Sex: 1985 Female Med Rec #: [id number] Physician: Aron ALVARADO DO Financial #: [id number] Pt. Type: I Room/Bed: [place] [address] Admit/Disch: 07/17/19 20:55:00 - Institution: Case Times [...] 1 Entry 2 Entry 3 Case Attendee Geri Guerrero MD, Berry Heller RN Role Performed Anesthesiologist Surgeon - Primary MOBILE UI DEVELOPER [place] Time In 07/19/19 10:51:00 07/19/19 10:51:00 07/19/19 10:51:00 Time Out 07/19/19 13:18:00 07/19/19 12:56:00 07/19/19 13:18:00 Procedure CHOLECYSTECTOMY CHOLECYSTECTOMY CHOLECYSTECTOMY LAPAROSCOPIC W/ LAPAROSCOPIC W/ LAPAROSCOPIC W/ CHOLANGI(.) CHOLANGI(.) CHOLANGI(.) Comments DR GARVIN OUT FOR LUNCH FROM SUPERVISING.GERI [phone] MARINA AA-OUT TO LUNCH FROM [phone]. Last Modified By: Luis Fernando RN, Tosha Gould RN, Tosha Stewart RN 07/19/19 13:22:30 07/19/19 13:22:30 07/19/19 13:22:30 Entry 4 Entry 5 Entry 6 Case Attendee Armaan VILLAGOMEZ, Mónica Gould RN, Ravi Escalera RN Role Performed Scrub - Primary Telecommunications Analyst - Primary Telecommunications Analyst - Relief Time In 07/19/19 10:51:00 07/19/19 10:51:00 07/19/19 11:04:00 Time Out 07/19/19 13:18:00 07/19/19 13:18:00 07/19/19 11:40:00 Procedure CHOLECYSTECTOMY CHOLECYSTECTOMY CHOLECYSTECTOMY LAPAROSCOPIC W/ LAPAROSCOPIC W/ LAPAROSCOPIC W/ CHOLANGI(.) CHOLANGI(.) CHOLANGI(.) Comments OUT FOR LUNCH FROM OUT TO LUNCH FROM [phone] Last Modified By: Luis Fernando RN, Tosha Gould RN, Tosha Stewart RN 07/19/19 13:22:30 07/19/19 13:22:30 07/19/19 13:22:30 Entry 7 Entry 8 Entry 9 Case Attendee Adalid VENETIAN BLIND CLEANER AND REPAIRER, Bert Vázquez VENETIAN BLIND CLEANER AND REPAIRER/SA, Gabbi Elizabeth VENETIAN BLIND CLEANER AND REPAIRERTosha Role Performed VENETIAN BLIND CLEANER AND REPAIRER/SA Scrub - Relief Scrub - Other Time In 07/19/19 11:00:00 07/19/19 11:00:00 07/19/19 11:31:00 Time Out 07/19/19 11:35:00 07/19/19 11:35:00 07/19/19 13:18:00 Procedure CHOLECYSTECTOMY CHOLECYSTECTOMY CHOLECYSTECTOMY LAPAROSCOPIC W/ LAPAROSCOPIC W/ LAPAROSCOPIC W/ CHOLANGI(.) CHOLANGI(.) CHOLANGI(.) Comments HOLDING CAMERA Last Modified By: Tosha Gould RN, RN, Tosha Stewart RN 07/19/19 13:22:30 07/19/19 [...] Antibiotic Yes Time Out Amando GUSTAFSON, Javan Stevens, Given Participants Olaf GOODRICH, Marina Smart Carly C, Wilhelm CST, Benjamin, Krupp RN, Kathie Ojeda VENETIAN BLIND CLEANER AND REPAIRER/Gabbi MCKEON Time Out Complete 07/19/19 11:19:00 Outcomes [...] LAPAROSCOPIC CHOLECYSTECTOMY Primary Procedure Yes Primary Surgeon Javan Goel MD Start 07/19/19 11:21:00 Stop 07/19/19 13:13:00 Anesthesia [...] tissue Entry 1 Skin Integrity Bruised, Intact, Freedom, Skin Abnormality Yes Warm, and Dry Abnormality [...] Berry Babin RN, Barbee RN, Kimberly Y, Brown CAA, Carly C Outcomes Met? Yes Last Modified By: Tosha [...] Last Modified By: Tosha Gould RN, RN, Andrea L Barbee RN, Kimberly Y 07/19/19 11:52:42 07/19/19 11:39:33 07/19/19 12:50:18 Post-Care [...] Entry 1 Type Dressing Items DRESSING STERI-STRIP / X 4 [R1546][F] Site and Details ABDOMEN - Mastisol and Outcomes Met? Yes 10/21 steri strips and band aids Last Modified [...] Type TUBE NASOGASTIC SUMP Location MOUTH 18FR [[id number]][F] Quantity 1 Inserted By Geri Guerrero Present [...] Present Upon Arrival No Inserted LF 16FR [[id number]][F] Insertion Date/Time 07/19/19 11:09:00 Urine Residual 350 [...] BLANKET MISTRAL AIR Quantity 1 Aid TORSO [[id number]][F] Fluid/Durant Unit Mistral warming system Setting HIGH/43C Body Site Upper anterior torso Last Modified By: Tosha Gould RN 07/19/19 10:34:51 Case Comments Finalized By: Juanita Stein CST Document Signatures Signed By: Tosha Gould RN 07/19/19 13:23 Juanita Stein CST 07/19/19 14:22 Normal [facility] Main OR PACU I Recordon Main OR PACU I Record PACU Phase I Document Type FT Summary Primary Physician: Javan Goel MD Finalized Date/Time: 07/19/19 13:51:28 Pt. Name: SUKHDEV SCHWARTZ/Sex: 1985 Female Med Rec #: [id number] Physician: Aron ALVARADO DO Financial #: [id number] Pt. Type: I Room/Bed: 06/ Admit/Disch: 07/17/19 20:55:00 - Institution: Case Times [...] Signed By: Mariama Cadena RN 07/19/19 13:51 Mady [facility] Main OR Preoperative Recordo n 07-19-2019 Main OR Preoperative Record PreOp Document Type FT Summary Primary Physician: Javan Goel MD Finalized Date/Time: 07/19/19 11:50:30 Pt. Name: SUKHDEV SCHWARTZ /Sex: 1985 Female Med Rec #: [id number] Physician: Aron ALVARADO DO Financial #: [id number] Pt. Type: I Room/Bed: N206/01 Admit/Disch: 07/17/19 20:55:00 - Institution: Case Times [...] By: Tosha Gould RN 07/19/19 11:50 Normal [facility] Progress Note-Physicianon Progress Note-Physician ACUTE [...] Auto: 11.9 % Low (07/19/19 05:39:00 EDT) [place] Auto: 5.8 % (07/19/19 05:39:00 EDT) Eos Auto: 1.1 % (07/19/19 05:39:00 EDT) Basophil Auto: 0.2 % (07/19/19 05:39:00 EDT) Neutro Absolute: 7.3 E9/L (07/19/19 05:39:00 EDT) Lymph Absolute: 1.1 E9/L (07/19/19 05:39:00 EDT) [place] Absolute: 0.5 E9/L (07/19/19 05:39:00 EDT) Eos [...] MD Trauma/Critical Care/Acute Care Surgery Attending [facility] Comment on above: Result Comment: Elec tronically Signed By: Amando GUSTAFSON, Javan J\.br\Date and Time Signed: 07/19/19 10:32 EDT eGFRon 07-19-2019 GFR/1.73 sq M predicted among blacks MDRD (S/P/Bld) [Vol rate/Area] mL/min/{1.73_m2} Normal >=59 [facility] Comment on above: Order Comment: Order added by Discern Expert. Result Comment: eGFR is race adjusted. AA=. Performed By: #### 1 [id number], 7265436, 2619324, 0946848, 4148267, 0911495, 48410056, 9350513 #### [facility] [address] [place] [address] GFR/1.73 sq M predicted among non-blacks MDRD (S/P/Bld) [Vol rate/Area] mL/min/{1.73_m2} Normal >=59 [facility] Comment on above: Order Comment: Order added by Discern Expert. Result Comment: Field Laboratory Operator ivan kidney disease could be indicated at eGFR's of less than 60 mL/min/1.73m2. Kidney failure is indicated at less than 15 mL/min/1.73m2. Performed By: #### 1 4356415, 1175037, 5512374, 5897083, 7077689, 7081635, 50361803, 6964642 #### [facility] [address] [place] [address] Auto Diffon 07-18-2019 Basophils/100 WBC (Bld) 0.4 % Normal 0.0-2.0 [facility] Comment on above: Order Comment: Order Added by Discern Expert. Performed By: #### 1 6399487, 2911990, 1080659, 0711925, 9378564, 0964286, 28486535, 0043027 #### [facility] [address] [place] [address] Basophils/Leukocyte s Auto (Bld) [Pure # fraction] 0.0 E9/L Normal 0.0-0.2 [facility] Comment on above: Order Comment: Order Added by Discern Expert. Performed By: #### 1 4111364, 6600742, 9469869, 4898605, 4803393, 2392378, 87848101, 7058300 #### [facility] [address] [place] [address] Eosinophils/100 WBC (Bld) 0.4 % Normal 0.0-8.0 [facility] Comment on above: Order Comment: Order Added by Discern Expert. Performed By: #### 1 5708076, 7724134, 5637425, 3579964, 1255643, 2837582, 92965881, 8484891 #### [facility] [address] [place] [address] Eosinophils/Leukocy dariel Auto (Bld) [Pure # fraction] 0.0 E9/L Normal 0.0-0.5 [facility] Comment on above: Order Comment: Order Added by Discern Expert. Performed By: #### 1 2789908, 3614190, 7874848, 6615325, 5667091, 1290704, 84045586, 8389800 #### [facility] [address] [place] [address] Lymphocytes/100 WBC (Bld) 19.3 % Normal 14.0-50.0 [facility] Comment on above: Order Comment: Order Added by Discern Expert. Performed By: #### 1 5783867, 0805304, 3436847, 2007996, 6155220, 4634291, 74259151, 7003420 #### [facility] [address] [place] [address] Lymphocytes/Leukocy dariel Auto (Bld) [Pure # fraction] 1.5 E9/L Normal 1.0-4.0 [facility] Comment on above: Order Comment: Order Added by Discern Expert. Performed By: #### 1 5802654, 0399121, 5995532, 4320609, 1453068, 0361726, 44572742, 2190827 #### [facility] [address] [place] [address] Monocytes/100 WBC (Bld) 6.4 % Normal 4.0-14.0 [facility] Comment on above: Order Comment: Order Added by Evans Expert. Performed By: #### 1 8560769, 1507308, 7062152, 2851794, 3303784, 8882796, 68967379, 5437657 #### [facility] [address] [place] [address] Monocytes/Leukocyte s Auto (Bld) [Pure # fraction] 0.5 E9/L Normal 0.2-1.0 [facility] Comment on above: Order Comment: Order Added by Evans Expert. Performed By: #### 1 8377327, 9346922, 2241257, 7419757, 1394219, 5559833, 34355891, 5714355 #### [facility] [address] [place] [address] Neutrophils/100 WBC (Bld) 73.5 % Normal 36.0-75.0 [facility] Comment on above: Order Comment: Order Added by Evans Expert. Performed By: #### 1 3509123, 5528667, 4324827, 0282913, 2269173, 1594205, 34537772, 3410943 #### [facility] [address] [place] [address] Neutrophils/Leukocy dariel Auto (Bld) [Pure # fraction] 5.7 E9/L Normal 2.0-7.5 [facility] Comment on above: Order Comment: Order Added by Discern Expert. Performed By: #### 1 3816930, 3047240, 5389542, 1884924, 3874076, 1392465, 94281581, 6031420 #### [facility] [address] [place] [address] Basophils/100 WBC (Bld) 0.3 % Normal 0.0-2.0 [facility] Comment on above: Order Comment: Order Added by Discern Expert. Performed By: #### 1 2692206, 7327274, 9694439, 6288434, 5576344, 8125166, 51538247, 4731262 #### [facility] [address] [place] [address] Basophils/Leukocyte s Auto (Bld) [Pure # fraction] 0.0 E9/L Normal 0.0-0.2 [facility] Comment on above: Order Comment: Order Added by Discern Expert. Performed By: #### 1 0080940, 2989040, 5883503, 3328737, 2416492, 2258560, 16190286, 0314452 #### [facility] [address] [place] [address] Eosinophils/100 WBC (Bld) 0.6 % Normal 0.0-8.0 [facility] Comment on above: Order Comment: Order Added by Discern Expert. Performed By: #### 1 9727656, 6296325, 2090835, 9878094, 7371387, 6055210, 04185753, 4828584 #### [facility] [address] [place] [address] Eosinophils/Leukocy dariel Auto (Bld) [Pure # fraction] 0.1 E9/L Normal 0.0-0.5 [facility] Comment on above: Order Comment: Order Added by Discern Expert. Performed By: #### 1 6147569, 0595866, 1138414, 4602766, 8584008, 4021257, 89432719, 7641635 #### [facility] [address] [place] [address] Lymphocytes/100 WBC (Bld) 6.4 % Low 14.0-50.0 [facility] Comment on above: Order Comment: Order Added by Discern Expert. Performed By: #### 1 3357337, 3844005, 0671754, 8277629, 4918304, 7378269, 61829619, 5451944 #### [facility] [address] [place] [address] Lymphocytes/Leukocy dariel Auto (Bld) [Pure # fraction] 0.8 E9/L Low 1.0-4.0 [facility] Comment on above: Order Comment: Order Added by Discern Expert. Performed By: #### 1 2680764, 4677168, 7429028, 7777146, 8431729, 7592544, 26686362, 5173968 #### [facility] [address] [place] [address] Monocytes/100 WBC (Bld) 5.5 % Normal 4.0-14.0 [facility] Comment on above: Order Comment: Order Added by Discern Expert. Performed By: #### 1 4710555, 3887966, 2197625, 1888775, 6228505, 6735364, 20817237, 1957175 #### [facility] [address] [place] [address] Monocytes/Leukocyte s Auto (Bld) [Pure # fraction] 0.7 E9/L Normal 0.2-1.0 [facility] Comment on above: Order Comment: Order Added by Discern Expert. Performed By: #### 1 1800163, 8758895, 4305263, 2180013, 6185217, 1530226, 20805861, 7169355 #### [facility] [address] [place] [address] Neutrophils/100 WBC (Bld) 87.2 % High 36.0-75.0 [facility] Comment on above: Order Comment: Order Added by Discern Expert. Performed By: #### 1 8924318, 9864180, 4174004, 6543364, 8128524, 8095120, 59490720, 6983365 #### [facility] [address] [place] [address] Neutrophils/Leukocy dariel Auto (Bld) [Pure # fraction] 11.3 E9/L High 2.0-7.5 [facility] Comment on above: Order Comment: Order Added by Discern Expert. Performed By: #### 1 4889892, 9861906, 6773339, 4984721, 3814535, 8828047, 52197015, 7549940 #### [facility] [address] [place] [address] BMPon 07-18-2019 Urea nitrogen/Creatinine [Mass ratio] 22 No Units High 10-20 [facility] Comment on above: Performed By: #### 1 9535172, 1776262, 0170884, 0157019, 7096868, 0417007, 37780770, 5827814 #### [facility] [address] [place] [address] Creatinine [Mass/Vol] 0.5 mg/dL Normal 0.5-1.3 [facility] Comment on above: Performed By: #### 1 4333756, 8153913, 8276150, 6371765, 1726742, 7545331, 67122324, 8586844 #### [facility] [address] [place] [address] Urea nitrogen [Mass/Vol] 11 mg/dL Normal 5-21 [facility] Comment on above: Performed By: #### 1 8490105, 5447689, 3101423, 0354441, 3408165, 3400531, 55050957, 1835608 #### [facility] [address] [place] [address] Anion gap [Moles/Vol] 12 mmol/L Normal 6-16 [facility] Comment on above: Performed By: #### 1 3854069, 1475599, 4430612, 9131251, 5600695, 5110878, 15235612, 2976522 #### [facility] [address] [place] [address] Calcium [Mass/Vol] 8.8 mg/dL Low 8.9-11.1 [facility] Comment on above: Performed By: #### 1 8414616, 5562992, 8194983, 0398137, 9727506, 9029963, 20852806, 3663105 #### [facility] [address] [place] [address] Chloride [Moles/Vol] 109 mmol/L Normal 101-111 [facility] Comment on above: Performed By: #### 1 3279051, 9829093, 1894827, 6929947, 9813541, 0496306, 29798750, 1972880 #### [facility] [address] [place] [address] CO2 [Moles/Vol] 24 mmol/L Normal 21-31 [facility] Comment on above: Performed By: #### 1 9190129, 1425111, 2229348, 8302734, 5286980, 2791951, 49931891, 3796657 #### [facility] [address] [place] [address] Glucose [Mass/Vol] 104 mg/dL Normal 55-199 [facility] Comment on above: Result Comment: If t his glucose result represents a fasting glucose, interpretation should refer to the following reference range: 55-99 mg/dL Performed By: #### 1 3769183, 2783118, 5410185, 8616415, 9574927, 7471624, 10110226, 8681618 #### [facility] [address] [place] [address] Potassium [Moles/Vol] 3.8 mmol/L Normal 3.5-5.3 [facility] Comment on above: Performed By: #### 1 4809319, 0412864, 9748768, 3393761, 0753664, 7164383, 21998586, 2383383 #### [facility] [address] [place] [address] Sodium [Moles/Vol] 141 mmol/L Normal 135-145 [facility] Comment on above: Performed By: #### 1 7247942, 9227607, 2135006, 5025290, 4340529, 6227477, 33378737, 6766149 #### [facility] [address] [place] [address] Creatinine [Mass/Vol] 0.5 mg/dL Normal 0.5-1.3 [facility] Comment on above: Performed By: #### 1 6546954, 4228750, 6370600, 0515350, 2322966, 9062041, 09944218, 4966337 #### [facility] [address] [place] [address] Urea nitrogen [Mass/Vol] 13 mg/dL Normal 5-21 [facility] Comment on above: Performed By: #### 1 1300156, 4436794, 0449649, 0679149, 7457063, 6567464, 10574329, 7248032 #### [facility] [address], [place] [address] Urea nitrogen/Creatinine [Mass ratio] 26 No Units High 10-20 [facility] Comment on above: Performed By: #### 1 4150875, 3239314, 4510364, 6910287, 8071523, 2090955, 17109515, 0339972 #### [facility] Laboratory [address] [place] [address] Anion gap [Moles/Vol] 13 mmol/L Normal 6-16 [facility] Comment on above: Performed By: #### 1 1239134, 9838553, 8910974, 8182578, 3031975, 3047762, 05308068, 0798143 #### [facility] Laboratory [address] [place] [address] Calcium [Mass/Vol] 9.3 mg/dL Normal 8.9-11.1 [facility] Comment on above: Performed By: #### 1 7875512, 7037903, 8675375, 5665949, 4762550, 3354171, 61044288, 6460541 #### [facility] Laboratory [address] [place] [address] Chloride [Moles/Vol] 105 mmol/L Normal 101-111 [facility] Comment on above: Performed By: #### 1 3374446, 6578753, 4714479, 9553257, 7542695, 7876719, 11674943, 9243784 #### [facility] Laboratory [address] [place] [address] CO2 [Moles/Vol] 26 mmol/L Normal 21-31 [facility] Comment on above: Performed By: #### 1 6352371, 6211857, 7184201, 9827493, 7217241, 8738721, 14754549, 8073754 #### [facility] Laboratory [address] [place] [address] Glucose [Mass/Vol] 107 mg/dL Normal 55-199 [facility] Comment on above: Result Comment: If t his glucose result represents a fasting glucose, interpretation should refer to the following reference range: 55-99 mg/dL Performed By: #### 1 1742907, 6015733, 3019390, 8520851, 0619243, 7598807, 70285526, 4942459 #### [facility] Laboratory [address] [place] [address] Potassium [Moles/Vol] 3.7 mmol/L Normal 3.5-5.3 [facility] Comment on above: Performed By: #### 1 3718969, 1230932, 5208600, 3016801, 1216469, 0081222, 81474388, 3836219 #### [facility] Laboratory [address] [place] [address] Sodium [Moles/Vol] 140 mmol/L Normal 135-145 [facility] Comment on above: Performed By: #### 1 3082017, 1905183, 5474699, 5995319, 1447971, 1013403, 91039917, 6344125 #### [facility] Laboratory [address] [place] [address] CBC w/ Auto Diffon Erythrocyte distribution width (RBC) [Ratio] 13.7 % Normal 10.9-14.2 [facility] Comment on above: Performed By: #### 1 2573208, 6073647, 8312747, 3169543, 6578029, 6452290, 68506800, 9954050 #### [facility] Laboratory [address] [place] 9250357 Hematocrit (Bld) [Volume fraction] 34.8 % Normal 34.0-46.0 [facility] Comment on above: Performed By: #### 1 5677043, 1366569, 2569412, 9597881, 5918033, 1620854, 41814912, 1987184 #### [facility] [address] [place] [address]250[address] Hemoglobin (Bld) [Mass/Vol] 12.0 g/dL Normal 12.0-16.0 [facility] Comment on above: Performed By: #### 1 5034864, 3224503, 1736052, 6173069, 9729094, 9982739, 14162027, 7302368 #### [facility] Laboratory [address] [place] [address] MCH (RBC) [Entitic mass] 30.5 pg Normal 27.0-34.0 [facility] Comment on above: Performed By: #### 1 2820501, 2703309, 2053284, 3897260, 4954340, 1273824, 75257488, 2023957 #### [facility] Laboratory [address] [place] [address] MCHC (RBC) [Mass/Vol] 34.5 g/dL Normal 33.3-35.7 [facility] Comment on above: Performed By: #### 1 9337595, 5438883, 1288957, 8403351, 0984072, 1998246, 82378158, 7125844 #### [facility] Laboratory [address] [place] [address] MCV (RBC) [Entitic vol] 88.6 fL Normal 80.0-100.0 [facility] Comment on above: Performed By: #### 1 1184767, 5225296, 4750085, 1608479, 7350836, 8856356, 23956404, 7902920 #### [facility] Laboratory [address] [place] [address] Platelet mean volume (Bld) [Entitic vol] 7.9 fL Normal 6.4-10.8 [facility] Comment on above: Performed By: #### 1 7374376, 5322831, 6385469, 9419961, 1122658, 3408298, 52015230, 1769273 #### [facility] Laboratory [address] [place] [address] Platelets (Bld) [#/Vol] 256.0 E9/L Normal 150.0-500.0 [facility] Comment on above: Performed By: #### 1 6382717, 9030467, 4410782, 4497347, 0514023, 9938204, 01742516, 2780626 #### [facility] Laboratory [address] [place] [address] RBC (Bld) [#/Vol] 3.9 E12/L Low 4.3-5.9 [facility] Comment on above: Performed By: #### 1 1467120, 4437075, 7166844, 5571473, 9560611, 1866692, 30429006, 8235974 #### [facility] Laboratory [address] [place] [address] WBC corrected for nucl RBC Auto (Bld) [#/Vol] 7.8 E9/L Normal 4.0-11.0 [facility] Comment on above: Performed By: #### 1 0053823, 6321545, 6170416, 5042943, 5343938, 5800086, 42296716, 0884895 #### [facility] Laboratory [address] [place] [address] Erythrocyte distribution width (RBC) [Ratio] 13.2 % Normal 10.9-14.2 [facility] Comment on above: Performed By: #### 1 4635668, 0688835, 1763081, 7114413, 9166143, 6194614, 07442381, 7992736 #### [facility] Laboratory [address] [place] [address] Hematocrit (Bld) [Volume fraction] 38.9 % Normal 34.0-46.0 [facility] Comment on above: Performed By: #### 1 0339109, 3095470, 3107777, 3489902, 9758697, 6555423, 70578634, 6319350 #### [facility] Laboratory [address] [place] [address] Hemoglobin (Bld) [Mass/Vol] 13.2 g/dL Normal 12.0-16.0 [facility] Comment on above: Performed By: #### 1 1567251, 5463312, 5356400, 1522843, 1320986, 3672462, 58611093, 8054566 #### [facility] Laboratory [address] [place] [address] MCH (RBC) [Entitic mass] 30.0 pg Normal 27.0-34.0 [facility] Comment on above: Performed By: #### 1 6045476, 0062270, 1194745, 5151230, 3052999, 6573013, 03027658, 7819500 #### [facility] Laboratory [address] [place] [address] MCHC (RBC) [Mass/Vol] 34.0 g/dL Normal 33.3-35.7 [facility] Comment on above: Performed By: #### 1 2668430, 9249609, 5617866, 8508580, 5074934, 0340713, 44715890, 2306955 #### [facility] Laboratory [address] [place] [address] MCV (RBC) [Entitic vol] 88.1 fL Normal 80.0-100.0 [facility] Comment on above: Performed By: #### 1 3569827, 3500647, 2380574, 0206999, 6302792, 3888807, 56058625, 4386658 #### [facility] Laboratory [address] [place] [address] Platelet mean volume (Bld) [Entitic vol] 8.3 fL Normal 6.4-10.8 [facility] Comment on above: Performed By: #### 1 5083037, 7934061, 7002750, 0997232, 5655307, 2293438, 57930615, 2669043 #### [facility] Laboratory [address] [place] [address] Platelets (Bld) [#/Vol] 253.0 E9/L Normal 150.0-500.0 [facility] Comment on above: Result Comment: Slid e reviewed by CHARO. Performed By: #### 1 2284272, 8413100, 9295431, 8023557, 8204101, 9311001, 58949500, 0204226 #### [facility] Laboratory [address] [place] [address] RBC (Bld) [#/Vol] 4.4 E12/L Normal 4.3-5.9 [facility] Comment on above: Performed By: #### 1 5688270, 6865898, 1879924, 0051775, 4200843, 8436265, 16649292, 9835176 #### [facility] Laboratory [address] [place] [address] WBC corrected for nucl RBC Auto (Bld) [#/Vol] 13.0 E9/L High 4.0-11.0 [facility] Comment on above: Performed By: #### 1 8713793, 2252957, 2001286, 2361077, 4670722, 3148408, 25950210, 4668711 #### [facility] Laboratory [address] [place] [address] Consultation Noteon 07-18-20 Consultation Note ACUTE CARE [...] use, or substance abuse. (04/21/2019 01:38 - Charly GOODRICH, Jeanette Guerra) Substance Abuse Denies Substance Abuse (03/27/2019) Comment: Denies (07/17/2019 21:14 Yaneli Bishop RN) IV drug use: No. Household substance abuse concerns: No. Tobacco Denies Tobacco Use (03/27/2019) Comment: Denies (07/17/2019 21:14 Yaneli Bishop RN) Never (less than 100 in lifetime) [...] Lymph Auto: 19.3 % (07/18/19 05:33:00 EDT) [place] Auto: 6.4 % (07/18/19 05:33:00 EDT) Eos Auto: 0.4 % (07/18/19 05:33:00 EDT) Basophil Auto: 0.4 % (07/18/19 05:33:00 EDT) Neutro Absolute: 5.7 E9/L (07/18/19 05:33:00 EDT) Lymph Absolute: 1.5 E9/L (07/18/19 05:33:00 EDT) [place]ell Absolute: 0.5 E9/L (07/18/19 05:33:00 EDT) Eos [...] FACS Trauma/Critical Care/Acute Care Surgery Attending [facility] Comment on above: Result Comment: Elec [...] since 2am, states lab work done at [place] today liver enzymes were elevated history of pancreatitis History of Present Illness 33 years old white female admitted to [facility] with sudden onset of abdominal [...] list: All Problems Pancreatitis / SNOMED CT 976368070 / Confirmed Hypothyroidism / SNOMED CT 69024083 / Confirmed Ovarian dysfunction / SNOMED CT 96850088 / Confirmed Histories Past Medical History: No [...] Denies - 07/17/2019 21:14 - Yaneli Dyson RN. Physical Examination Vital Signs (last 24 hrs) Last Charted Temp Oral 36.9 DegC (JUL 18 07:40) Heart Rate Peripheral 67 bpm (JUL 18 05:00) Resp Rate 18 br/min (JUL 18 07:40) SBP H 146mmHg (JUL 18 09:28) DBP H 96mmHg (JUL 18 09:28) SpO2 98 % (JUL 18 09:28) Weight 108.9 kg (JUL 18 07:08) Height 184 cm (JUL 18 07:08) BMI 32.2 (JUL 18:08) General: Alert and oriented. Neck: Supple. Respiratory: [...] Auto 73.5 % Lymph Auto 19.3 % Cabell Auto 6.4 % Eos Auto 0.4 % Basophil Auto 0.4 % Neutro Absolute 5.7 E9/L Lymph Absolute 1.5 E9/L [place]ell Absolute 0.5 E9/L Eos Absolute 0.0 E9/L [...] 1.6 mg/dL HI Lipase Lvl >396 unit/L ND 07/18/2019 00:01 EDT UA Spec Desc Clean [...] % HI Lymph Auto 6.4 % LOW Cabell Auto 5.5 % Eos Auto 0.6 % Basophil Auto 0.3 % Neutro Absolute 11.3 E9/L HI Lymph Absolute 0.8 E9/L LOW [place]ell Absolute 0.7 E9/L Eos Absolute 0.1 E9/L [...] related complications, she agreed to proceed Normal [facility] Comment on above: Result Comment: Elec tronically Signed By: CAPRICE GUSTAFSON, Abhinav\.br\Date and Time Signed: 07/18/19 10:01 EDT ED Clinical Summaryon 2018 ED Clinical Summary (Inserted Image. Sachi ble to display) [place] [id number] ED Clinical Summary Person Information Name: SUKHDEV SCHWARTZ Stacey/[facility] Age: 33 Years : 1985 12:00 AM Sex: Female Language: Marshallese PCP: LOLI MATIAS MD Marital Status: Phone: [phone] Visit Id: Visit Reason: Vomiting; Nausea; Abdominal [...] 07/18/2019 12:48 AM 07/18/2019 12:48 AM ADDRESS: [facility] [place] [id number] [facility] DOC NOTES: MEDICAL INFORMATION: Prescriptions Given: PATIENT EDUCATION INFORMATION: Instructions: Follow up: DIAGNOSIS: Normal [facility] ED Patient Education Noteon 07-18-2019 ED Patient Education Note Normal [facility] ED Patient Summaryon 019 ED Patient Summary (Inserted Image. Sachi ble to display) [place] [id number] Patient Discharge Instructions Person Information Name: SUKHDEV SCHWARTZ Age: 33 Years Arrival Date: 07/17/2019 8:55 PM Discharge Diagnosis: Primary Care Physician: LOIL MATIAS MD Provider Information Primary Provider: Mehran Bergeron MD Advanced Gluing Pressman:Oswaldo Fischer PA-C The exam and treatment you received in the Emergency Department were for an urgent problem and are not intended as complete care. It is important that you follow up with a doctor, nurse practitioner, or physician?s computer lab assistant for ongoing care. If your symptoms [...] opioids can be used to help relieve wcxyhhym-db-amcxwz pain and are often prescribed following a [...] struggling with addiction, tell your health manager critical care and ask for guidance or call [facility]S National Helpline at 7-572-537-RELH. w Source: [place] Department of Health and Human Services/Center for Disease Control & Prevention [facility] Medications Given: Medication Dose Route Sodium Chloride 0.9% intravenous solution 1000.00 mL Initial Volume 1000.00 mL/hr IV Left Antecubital [place] morphine 4.00 mg IV Push Left Anterior Chest ondansetron 4.00 mg IV Push Left Antecubital [place] nalbuphine 5.00 mg IV Push Left Antecubital [place] Medication Information: Medications to Continue with No [...] 2 times a day. Comment: Pharmacy Information: [facility] [place] Thank you for choosing [facility] Patient Education Materials: EFREN Bain BRITTANY F , have received the following patient education materials/instructions and have verbalized understanding: Patient Education Materials: Follow-up Instructions: Prescriptions: Patient Signature __ Date Clinician/Nurse Signature Date 07/18/19 00:48:50 Normal [facility] Hep Func Panelon 07-18-2019 Albumin [Mass/Vol] 1.2 g/dL Normal 1.1-2.2 [facility] Comment on above: Performed By: #### 1 8000427, 0865006, 7574982, 3831433, 7631312, 9916982, 88315565, 1309662 #### [facility] Laboratory [address] [place] [address] ALP [Catalytic activity/Vol] 61 Int._Unit/L Normal 21-98 [facility] Comment on above: Performed By: #### 1 2112623, 8897397, 4825112, 4991278, 4062648, 4643343, 23619833, 8095133 #### [facility] Laboratory [address] [place] [address] ALT No additional P-5'-P [Catalytic activity/Vol] 119 Int._Unit/L High 6-46 [facility] Comment on above: Performed By: #### 1 4493556, 5337871, 7368982, 4266402, 8152466, 5968734, 96974692, 5671935 #### [facility] Laboratory [address] [place] [address] AST [Catalytic activity/Vol] 106 Int._Unit/L High 5-43 [facility] Comment on above: Performed By: #### 1 4741368, 9223899, 2727919, 9979751, 0313858, 6739611, 11336926, 8477108 #### [facility] Laboratory [address] [place] [address] Bilirubin.direct [Mass/Vol] 1.6 mg/dL High 0.1-0.9 [facility] Comment on above: Performed By: #### 1 1752550, 3968218, 6991441, 8514749, 3332014, 1865306, 55633206, 4005959 #### [facility] Laboratory [address] [place] [address] Globulin (S) [Mass/Vol] 2.7 g/dL Normal 1.4-4.0 [facility] Comment on above: Performed By: #### 1 8374641, 7533393, 3553934, 7155267, 9017537, 4883798, 01499878, 1055855 #### [facility] Laboratory [address] [place] [address] Albumin [Mass/Vol] 3.3 g/dL Normal 3.3-5.0 [facility] Comment on above: Performed By: #### 1 0746505, 5215565, 3995812, 1865582, 9360368, 4887597, 39834332, 4875403 #### [facility] Laboratory [address] [place] [address] Bilirubin [Mass/Vol] 3.6 mg/dL High 0.0-1.1 [facility] Comment on above: Performed By: #### 1 6266406, 3758369, 2234889, 5827075, 5684163, 7313170, 29820946, 3635876 #### [facility] Laboratory [address] [place] [address] Bilirubin.direct [Mass/Vol] 2.0 mg/dL High 0.1-0.4 [facility] Comment on above: Performed By: #### 1 3756040, 9817052, 4495283, 2872844, 2654343, 8591504, 21822098, 2295173 #### [facility] Laboratory [address] [place] [address] Protein [Mass/Vol] 6.0 g/dL Normal 6.0-7.8 [facility] Comment on above: Performed By: #### 1 2842396, 9701385, 0885328, 3397335, 4145907, 3044178, 44423160, 6555309 #### [facility] Laboratory [address] [place] [address] Albumin [Mass/Vol] 3.8 g/dL Normal 3.3-5.0 [facility] Comment on above: Performed By: #### 1 5118660, 0481634, 6294509, 3483543, 0917912, 0828491, 20107252, 0431203 #### [facility] Laboratory [address] [place] [address] Albumin [Mass/Vol] 1.4 g/dL Normal 1.1-2.2 [facility] Comment on above: Performed By: #### 1 6777914, 4454582, 7924279, 2920499, 2093335, 8421448, 64403881, 1516437 #### [facility] Laboratory [address] [place] [address] ALP [Catalytic activity/Vol] 69 Int._Unit/L Normal 21-98 [facility] Comment on above: Performed By: #### 1 8131650, 4159935, 2254926, 7435107, 1732812, 3126347, 15290496, 2608459 #### [facility] Laboratory [address] [place] [address] ALT No additional P-5'-P [Catalytic activity/Vol] 144 Int._Unit/L High 6-46 [facility] Comment on above: Performed By: #### 1 7779841, 9154248, 0358384, 2310037, 1531013, 4009899, 75905446, 2079824 #### [facility] Laboratory [address] [place] [address] AST [Catalytic activity/Vol] 179 Int._Unit/L High 5-43 [facility] Comment on above: Performed By: #### 1 1029022, 3246494, 7762869, 7575638, 6476124, 0776713, 62617107, 0881589 #### [facility] Laboratory [address] [place] [address] Bilirubin [Mass/Vol] 3.6 mg/dL High 0.0-1.1 [facility] Comment on above: Performed By: #### 1 9671612, 5996178, 1620668, 2772905, 9026311, 0248441, 88895132, 6575938 #### [facility] Laboratory [address] [place] [address] Bilirubin.direct [Mass/Vol] 1.5 mg/dL High 0.1-0.9 [facility] Comment on above: Performed By: #### 1 1424317, 6058096, 7500566, 4368335, 9286196, 0679041, 78845426, 8693324 #### [facility] Laboratory [address] [place] [address] Bilirubin.direct [Mass/Vol] 2.1 mg/dL High 0.1-0.4 [facility] Comment on above: Performed By: #### 1 2961630, 8702411, 5070181, 4464351, 7608331, 1681488, 35953781, 1721228 #### [facility] Laboratory [address] [place] [address] Globulin (S) [Mass/Vol] 2.7 g/dL Normal 1.4-4.0 [facility] Comment on above: Performed By: #### 1 5813733, 7989904, 1907786, 5201767, 2302596, 2627155, 04862686, 8890278 #### [facility] Laboratory [address] [place] [address] Protein [Mass/Vol] 6.5 g/dL Normal 6.0-7.8 [facility] Comment on above: Performed By: #### 1 9291734, 9590498, 2956894, 1191149, 5012060, 2870678, 29428867, 2707500 #### [facility] Laboratory [address] [place] [address] History and Physicalon 07-18 History and Physical [...] states she had a hospitalization while in [place] last month with the same was considered [...] Auto: 6.4 % Low (07/17/19 22:12:00 EDT) Cabell Auto: 5.5 % (07/17/19 22:12:00 EDT) Eos Auto: 0.6 % (07/17/19 22:12:00 EDT) Basophil Auto: 0.3 % (07/17/19 22:12:00 EDT) Neutro Absolute: 11.3 E9/L High (07/17/19 22:12:00 EDT) Lymph Absolute: 0.8 E9/L Low (07/17/19 22:12:00 EDT) Cabell Absolute: 0.7 E9/L (07/17/19 22:12:00 EDT) Eos [...] l4-6 (12/2016), gastric sleeve (2017). Medications Inpatient hydrALAZINE 20 mg/mL Inj, 10 [...] Mother. Thyroid cancer: Mother and Sister. [facility] Comment on above: Result Comment: Elec [...] need to have gallbladder removed. Patient C/O 8 pain and ask to have Dilaudid as morphine makes her sick. will stay today. 1155- returned to room and spoke with patient, verified PCP and insurance. patient states ERCP was done and they retrieved or removed a stone and plan is to have Gallbladder removed tomorrow at 12 noon. patient denies any needs at discharge. lives with spouse. [facility] Lactic Acidon 07-18-2019 Lactate [Mass/Vol] 10.1 mg/dL Normal 4.5-19.8 [facility] Comment on above: Performed By: #### 1 3143945, 7943684, 0338855, 6771869, 5598801, 9433876, 31389679, 2012733 #### [facility] Laboratory [address] [place] [address] Lipase Levelon 07-18-2019 Lipase [Catalytic activity/Vol] U/L High 13-58 [facility] Comment on above: Result Comment: Resu lt verified by dilution Performed By: #### 1 3787779, 5093499, 2514708, 3142308, 3496139, 3815634, 58257168, 9106129 #### [facility] Laboratory [address] [place] [address] Main OR Intraoperative Recor don 07-18-2019 Main OR Intraoperative Record IntraOp Document Type FT Summary Primary Physician: Abhinav REDDY MD Finalized Date/Time: 07/18/19 14:39:36 Pt. Name: SUKHDEV SCHWARTZ/Sex: 1985 Female Med Rec #: [id number] Physician: Aron ALVARADO DO Financial #: [id number] Pt. Type: I Room/Bed: [place] [address] Admit/Disch: 07/17/19 20:55:00 - Institution: Case Times [...] 1 Entry 2 Entry 3 Case Attendee Abhinav REDDY MD, Jr, DO, Davie Cabrera RN, Pamela Role Performed Surgeon - Primary Anesthesiologist of Telecommunications Analyst - Primary Record Time In 07/18/19 10:03:00 07/18/19 09:58:00 07/18/19 09:58:00 Time Out 07/18/19 10:24:00 07/18/19 10:24:00 07/18/19 10:24:00 Procedure ERCP(.) ERCP(.) ERCP(.) Comments Last Modified By: Deborah GOODRICH, Pamela Cabrera RN, Pamela Rosas RN 07/18/19 10:32:44 07/18/19 10:27:40 07/18/19 10:27:40 Entry 4 Entry 5 Entry 6 Case Attendee Reny Michaud CST, Shobha WOLF, Kathy Turcios Role Performed Scrub - Other [...] Attendee Moy GOODRICH, Humaira Hooper Role Performed Telecommunications Analyst - Other Time In 07/18/19 09:58:00 Time [...] (If Applicable) PreOp Antibiotic No Time Out CAPRICE GUSTAFSON, Angelito La Given Participants Jr BAE, Deborah Roblero RN, Jerry Santiago CST, Jaswant Yeager Kirstyn K, Fidencio WOLF, Moy Troy RN, Humaira Hooper Time Out Complete 07/18/19 10:03:00 Outcomes Met? [...] Procedure Yes Primary Surgeon Abhinav REDDY MD 07/18/19 10:05:00 Stop 07/18/19 10:17:00 Anesthesia Type [...] and tissue Entry 1 Skin Integrity Intact, Freedom, Warm, and Skin Abnormality No Dry Outcomes [...] Points Checked Yes By Pamela Cabrera RN, Marsh Jr DO, Jaswant Roblero Kirstyn K, Rice CST, Molly, Schaffer RN, Humaira Hooper Outcomes Met? Yes [...] Clear and Intact Condition Condition Grounding Pad Moy GOODRICH, Humaira Hooper Placed By Outcomes Met? Yes Last Modified [...] RN Patient Status Stable Skin. Condition Intact, Freedom, Warm, and Dry Airway Maintenance Oxygen in Use? No Airway Device N/A Outcomes Met? 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 Yes Verified Last Modified By: Pamela Cabrera RN 07/18/19 10:15:26 Post-Care Text: The patient received appropriate medication(s) safely administered during the perioperative period For [facility] please see scanned medication reconcilliation form [...] signs and symptoms of radiation injury Normal [facility] Main OR PACU I Recordon 100 Main OR PACU I Record PACU Phase I Document Type FT Summary Primary Physician: Abhinav REDDY MD Finalized Date/Time: 07/18/19 10:47:23 Pt. Name: EFREN SUKHDEV Corrales D.O.B./Sex: 1985 Female Med Rec #: [id number] Physician: Aron ALVARADO DO Financial #: [id number] Pt. Type: I Room/Bed: N206/01 Admit/Disch: 07/17/19 20:55:00 - Institution: Case Times [...] By: Carin Iverson RN 07/18/19 10:47 Normal [facility] Main OR Preoperative Recordo n 07-18-2019 Main OR Preoperative Record Holding Area Document Type FT Summary Primary Physician: Abhinav REDDY MD Finalized Date/Time: 07/18/19 09:36:36 Pt. Name: SUKHDEV SCHWARTZO.B./Sex: 1985 Female Med Rec #: [id number] Physician: Aron ALVARADO DO Financial #: [id number] Pt. Type: I Room/Bed: N206/ Admit/Disch: 07/17/19 20:55:00 - Institution: Case Times Holding FT Pre-Care Text: Verifies consent for planned procedure, identifies individual values and wishes concerning care, includes family members in perioperative teaching Secures patient's records' belongings, and valuables, maintains patient's dignity and privacy, and maintains patient confidentiality Entry 1 In Holding 07/18/19 09:20:00 Outcomes Met? Yes Last Modified By: PRESTON Velarde RN, MMichael, Kellen POZO 07/18/19 09:36:17 Post-Care Text: The [...] Patient states Yes Comment - Adult ip [id number] COMING postop adult Supervision supervision available Case Cancelled in No Holding Area see comments below for reason Last Modified By: PRESTON Velarde RN, M.Ed., Kellen POZO 07/18/19 09:36:34 Finalized By: PERSTON Velarde RN, Al, Kellen POZO Document Signatures Signed By: PRESTON Velarde RN, M.Ed., Kellen POZO 07/18/19 09:36 PRESTON Velarde RN, Al, Kellen POZO 07/18/19 09:36 Prachi GOODRICH, BSN, M.Ed., NOHELIA [facility] 07/18/19 09:36 Normal [facility] PT & PTTon 07-18-2019 aPTT Coag (PPP) [Time] 28.1 second(s) Normal 25.1-36.5 [facility] Comment on above: Result Comment: Hepa rin therapeutic range (represented by Anti-Factor Xa activity of 0.2 - 0.4 U/mL) corresponds to PTT of 56.6 - 109.0 sec. Performed By: #### 1 [id number], 5115382, 6530153, 2094295, 7769049, 4986025, 71852130, 4209133 #### [facility] Laboratory [address] [place] [address] INR Coag (PPP) [Relative time] 1.0 {INR} [facility] Comment on above: Result Comment: INR results are specifically intended to assess patients stabilized on long-term Anticoagulation therapy suggested INR?s ?Less Intensive Anticoagulation? 2.0 ? 3.0 Conventional Range 3.0 ? 4.5 Performed By: #### 1 5560194, 9480924, 8830739, 9502678, 4500515, 6823821, 21336440, 1781498 #### [facility] Laboratory [address] [place] [address] PT Coag (PPP) [Time] 11.9 second(s) Normal 10.2-12.9 [facility] Comment on above: Performed By: #### 1 3351809, 9614406, 2752302, 9309947, 8805264, 3572054, 45953445, 6887472 #### [facility] Laboratory [address] [place] [address] Prescriptions/Work Noteson 1 Prescriptions/Work Notes Pt to US at this time, via cart. Normal [facility] Progress Note-Nurseon 2018 Progress Note-Nurse SIMI Murillo aware of patient c/o pain. Normal [facility] Progress Note-Nurse Pt care report provi ded to JOLEEN Chavez at this time. Normal [facility] U BetaHcg Qualon 07-18-2019 HCG.beta subunit (U) [Moles/Vol] Negative Normal [facility] Comment on above: Performed By: #### 1 4516280, 6749634, 2049599, 2889275, 5957838, 9799865, 86862049, 2063032 #### [facility] Laboratory [address] [place] [address] UA With Cult Reflexon 2018 Bacteria LM Ql (Urine sed) 1+ /HPF Abnormal Trace [facility] Comment on above: Performed By: #### 1 7800509, 6037552, 8231532, 9475220, 1191080, 0089611, 82610806, 6748168 #### [facility] Laboratory [address] [place] [address] Bilirubin Ql (U) 3+ Abnormal Negative [facility] Comment on above: Performed By: #### 1 [id number], 0505429, 8796223, 7189810, 4867531, 9027767, 58430580, 8711907 #### [facility] Laboratory [address] [place] [address] Clarity (U) SL CLOUDY Abnormal Clear [facility] Comment on above: Performed By: #### 1 2010502, 0650521, 8599471, 5929992, 7231206, 5459151, 19015182, 7262016 #### [facility] Laboratory [address] [place] [address] Color (U) DARK YELLO Abnormal Yellow [facility] Comment on above: Performed By: #### 1 0556730, 9470439, 2799168, 0025269, 3701231, 0359462, 62863931, 3297908 #### [facility] Laboratory [address] [place] [address] Crystals LM Ql (Urine sed) Present Normal [facility] Comment on above: Performed By: #### 1 3723389, 8903384, 1656861, 9836536, 8940382, 6256912, 46633336, 1524454 #### [facility] Laboratory [address] [place] [address] Epithelial cells.squamous LM.HPF (Urine sed) [#/Area] 5-8 Normal 0-2 [facility] Comment on above: Performed By: #### 1 2315128, 6975267, 3869975, 6261283, 9419265, 9463373, 76422284, 4339316 #### [facility] Laboratory [address] [place] [id number] Glucose Test strip (U) [Mass/Vol] Negative Normal Negative [facility] Comment on above: Performed By: #### 1 3894800, 2556907, 7337879, 5875976, 8198878, 2181559, 91498843, 6294353 #### [facility] Laboratory [address] [place] [address] Hemoglobin Ql (U) TRACE Abnormal Negative [facility] Comment on above: Performed By: #### 1 2145552, 7022147, 9894219, 3003858, 5851434, 6586336, 55216874, 1965393 #### [facility] Laboratory [address] [place] [address] Ketones (U) [Mass/Vol] 3+ Abnormal Negative [facility] Comment on above: Performed By: #### 1 1896375, 0669080, 8399286, 9045693, 1539179, 3848798, 64800682, 9821185 #### [facility] Laboratory [address] [place] [address] Ko Olina.plasma/Lith ium.RBC (Bld) [Mass ratio] 4-20 Normal 0-3 [facility] Comment on above: Performed By: #### 1 7051477, 6747768, 3975945, 2060507, 9349058, 2271342, 04210855, 8826181 #### [facility] Laboratory [address] [place] [address] Mucus Ql (Urine sed) 3+ Normal [facility] Comment on above: Performed By: #### 1 6890018, 3212852, 6920193, 4185600, 3244385, 0516610, 90149157, 0496219 #### [facility] Laboratory [address] [place] [address] Nitrite Ql (U) Negative Normal Negative [facility] Comment on above: Performed By: #### 1 5363037, 2038766, 3222584, 8029812, 0201864, 9161997, 78418650, 5423963 #### [facility] Laboratory [address] [place] [address] pH (U) 6.0 [pH] 5.0-9.0 [facility] Comment on above: Performed By: #### 1 5941678, 3316450, 7121979, 5480949, 8309227, 8024177, 98387441, 6748468 #### [facility] Laboratory [address] [place] [address] Protein (U) [Mass/Vol] TRACE Abnormal Negative [facility] Comment on above: Performed By: #### 1 6043775, 3790360, 2641376, 0738517, 1921509, 5283641, 30338294, 7000426 #### [facility] Laboratory [address] [place] [address] Specific gravity (U) [Rel density] >=1.030 1.005-1.030 [facility] Comment on above: Performed By: #### 1 5493948, 3758074, 8164931, 5435344, 9805492, 7630199, 43996127, 6179280 #### [facility] Laboratory [address] [place] [address] UA Spec Desc Clean Catch Normal [facility] Comment on above: Performed By: #### 1 0330107, 9068553, 1366909, 1871172, 6436756, 8698936, 24076367, 1715936 #### [facility] Laboratory [address] [place] [address] Urobilinogen Qn (U) 2.0 {Payal'U}/dL Abnormal 0.0-1.0 [facility] Comment on above: Performed By: #### 1 1949862, 5761080, 5612976, 8529297, 0165705, 1241269, 60609236, 3754013 #### [facility] Laboratory [address] [place] [address] WBC Auto Ql (U) TRACE Abnormal Negative [facility] Comment on above: Performed By: #### 1 8824243, 4684677, 2437404, 4547577, 3547544, 4946742, 96581219, 5543589 #### [facility] Laboratory [address] [place] [address] WBC casts LM.LPF (Urine sed) [#/Area] 0-3 Normal [facility] Comment on above: Performed By: #### 1 2316088, 1707286, 2654569, 9530192, 4285960, 8287621, 53991551, 3046683 #### [facility] Laboratory [address] [place] [address] WBC LM.HPF (Urine sed) [#/Area] 0-5 Normal 0-5 [facility] Comment on above: Performed By: #### 1 2699888, 7604611, 4105205, 6708600, 9690979, 6520724, 56893270, 0829690 #### [facility] Laboratory [address] [place] [address] US Gallbladderon 07-18-2019 US Gallbladder Exam Date/Time: [...] MD Transcribed by: [place] Technologist: LALY Earl [facility] XR ERCP Biliary Ducton 07-18 XR ERCP Biliary Duct Exam Date/Time: 07/18/2019 10:25 EDT Reason for Exam: ercp Report IMPRESSION: DISTAL COMMON BILE DUCT STONE, WITH APPARENT REMOVAL FOLLOWING PASSAGE OF A BALLOON CATHETER. SUSPECTED SHORT SEGMENT SPASM OF THE DISTAL MOST COMMON BILE DUCT. CLINICAL HISTORY: ERCP. COMMENT: 6 limited [id number] C-arm images were obtained during an ERCP [...] [place] Technologist: ROEL Technical Comments Radiation Dose: vashti Godfrey in mGy = 62.1 Fluoro Time: 141.1s Normal [facility] eGFRon 07-18-2019 GFR/1.73 sq M predicted among blacks MDRD (S/P/Bld) [Vol rate/Area] mL/min/{1.73_m2} Normal >=59 [facility] Comment on above: Order Comment: Order added by Discern Expert. Result Comment: eGFR is race adjusted. AA=. Performed By: #### 1 7834588, 6593616, 6265191, 2677004, 4097794, 6545707, 74150810, 1582791 #### [facility] Laboratory [address] [place] [address] GFR/1.73 sq M predicted among non-blacks MDRD (S/P/Bld) [Vol rate/Area] mL/min/{1.73_m2} Normal >=59 [facility] Comment on above: Order Comment: Order added by Discern Expert. Result Comment: Field Laboratory Operator ivan kidney disease could be indicated at eGFR's of less than 60 mL/min/1.73m2. Kidney failure is indicated at less than 15 mL/min/1.73m2. Performed By: #### 1 4739205, 1529303, 8338852, 2739503, 0703603, 1567952, 42297932, 3580892 #### [facility] Laboratory [address] [place] [address] GFR/1.73 sq M predicted among blacks MDRD (S/P/Bld) [Vol rate/Area] mL/min/{1.73_m2} Normal >=59 [facility] Comment on above: Order Comment: Order added by Discern Expert. Result Comment: eGFR is race adjusted. AA=. Performed By: #### 1 8051672, 8497959, 0377392, 2833904, 2318821, 0989501, 99488898, 7282579 #### [facility] Laboratory [address] [place] [address] GFR/1.73 sq M predicted among non-blacks MDRD (S/P/Bld) [Vol rate/Area] mL/min/{1.73_m2} Normal >=59 [facility] Comment on above: Order Comment: Order added by Discern Expert. Result Comment: Field Laboratory Operator ivan kidney disease could be indicated at eGFR's of less than 60 mL/min/1.73m2. Kidney failure is indicated at less than 15 mL/min/1.73m2. Performed By: #### 1 8562088, 8812948, 3164948, 8683062, 9984964, 8823678, 30446040, 7255493 #### [facility] Laboratory [address] [place] [address] Amylaseon 07-17-2019 Amylase [Catalytic activity/Vol] 39 U/L 28 - 100 U/L [place] CBC Auto Differentialon 06-20 Basophils (Bld) [#/Vol] 0.00 10*3/uL [place] Basophils/100 WBC (Bld) 0 % 0 - 2 % [place] Differential Type YES [place] Eosinophils (Bld) [#/Vol] 0.10 10*3/uL [place] Eosinophils/100 WBC (Bld) 1 % 0 - 5 % [place] Erythrocyte distribution width (RBC) [Ratio] 13.3 % 12.1 - 15.2 % [place] Hematocrit (Bld) [Volume fraction] 36.1 % 36 - 46 % [place] Hemoglobin (Bld) [Mass/Vol] 12.3 g/dL 12 - 16 g/dL [place] Lymphocytes (Bld) [#/Vol] 1.50 10*3/uL [place] Lymphocytes/100 WBC (Bld) 23 % 15 - 40 % [place] MCH (RBC) [Entitic mass] 30.5 pg 26 - 34 pg [place] MCHC (RBC) [Mass/Vol] 34.1 g/dL 31 - 37 g/dL [place] MCV (RBC) [Entitic vol] 89.3 fL 80 - 100 fL [place] Monocytes (Bld) [#/Vol] 0.40 10*3/uL [place] Monocytes/100 WBC (Bld) 6 % 4 - 8 % [place] Platelet mean volume (Bld) [Entitic vol] NOT REPORTED 6 - 12 fL [place] Platelets (Bld) [#/Vol] 301 10*3/uL [place] Platelets (Bld) [#/Vol] NOT REPORTED [place] RBC (Bld) [#/Vol] 4.04 10*6/uL 4 - 5.2 m/uL [place] RBC morphology finding Nom (Bld) NOT REPORTED [place] Segmented neutrophils/100 WBC (Bld) 70 % 47 - 75 % [place] Segs Absolute 4.60 [place] WBC (Bld) [#/Vol] 6.6 10*3/uL [place] WBC (Bld) [#/Vol] NOT REPORTED per 100 WBC [place] WBC Morphology NOT REPORTED [place], [place] Comprehensive Metabolic Pane avel 07-17-2019 Albumin [Mass/Vol] 4.4 g/dL 3.5 - 5.2 g/dL [place] Albumin/Globulin [Mass ratio] NOT REPORTED [place] ALP [Catalytic activity/Vol] 84 U/L 35 - 104 U/L [place] ALT [Catalytic activity/Vol] 153 U/L High 5 - 33 U/L [place] Anion gap [Moles/Vol] 11 mmol/L 9 - 17 mmol/L [place] AST [Catalytic activity/Vol] 243 U/L High <32 [place] Bilirubin Ql (U) 2.37 mg/dL High 0.3 - 1.2 mg/dL [place] Bun/Cre Ratio 27 High [place] Calcium [Mass/Vol] 9.9 mg/dL 8.6 - 10. 4 mg/dL [place] Chloride [Moles/Vol] 104 mmol/L 98 - 107 mmol/L [place] CO2 [Moles/Vol] 24 mmol/L 20 - 31 mmol/L [place] Creatinine [Mass/Vol] 0.49 mg/dL Low 0.5 - 0.9 mg/dL [place] GFR >60 >60 mL/min [place] GFR Non- >60 >60 mL/min [place] GFR/1.73 sq M predicted among non-blacks MDRD (S/P/Bld) [Vol rate/Area] [place] Comment on above: Average GFR for 30-3 9 years old: 107 mL/min/1.73sq m Chronic Kidney Disease: <60 mL/min/1.73sq m Kidney failure: <15 mL/min/1.73sq m eGFR calculated using average adult body mass. Additional eGFR calculator available at: http://www.OptuLink/multiple_crcl_2012.htm GFR/1.73 sq M predicted among non-blacks MDRD (S/P/Bld) [Vol rate/Area] NOT REPORTED [place] Glucose [Mass/Vol] 97 mg/dL 70 - 99 mg/dL [place] Interpretation and review of laboratory results Abnormal [place] Potassium [Moles/Vol] 3.6 mmol/L Low 3.7 - 5.3 mmol/L [place] Protein [Mass/Vol] 7.5 g/dL 6.4 - 8.3 g/dL [place] Sodium [Moles/Vol] 139 mmol/L 135 - 144 mmol/L [place] Urea nitrogen [Mass/Vol] 13 mg/dL 6 - 20 mg/dL [place] Lipaseon 07-17-2019 Lipase [Catalytic activity/Vol] 20 U/L 13 - 60 U/L [place] Otheron 07-17-2019 Immature granulocytes (Bld) [#/Vol] NOT REPORTED 0 % [place] US HEAD NECK SOFT TISSUE THY ROIDon 07-14-2019 Stable nodules with no follow-up needed. [place] EXAM: US HEAD NECK S OFT [...] lobe: 4.9 x 1.3 x 1.9 cm. [facility], Giovannipn Incoming R adiant Results From [employer] .[employer] [place]/[facility] [employer] - 07/14/2019 3:21 PM EDT EXAM: US [...] IMPRESSION: Stable nodules with no follow-up needed. [facility] TSHon 07-07-2019 TSH Qn 0.78 m[IU]/L Normal 0.44 - 3.98 [facility] Comment on above: Result Comment: TSH testing is performed using different testing methodology at [facility] than at other [facility]. Direct result comparisons should only be made within the same method. . Patients receiving more than 5 mg/day of biotin may have interference in test results. A sample should be taken no sooner than eight hours after previous dose. Contact [phone] for additional information. Performed By: #### T SH2 #### [facility] [address] [place] [address] TSHon 05-25-2019 TSH Qn 0.77 m[IU]/L Normal 0.44 - 3.98 [facility] Comment on above: Result Comment: TSH testing is performed using different testing methodology at [facility] than at other [facility]. Direct result comparisons should only be made within the same method. . Patients receiving more than 5 mg/day of biotin may have interference in test results. A sample should be taken no sooner than eight hours after previous dose. Contact [phone] for additional information. Performed By: #### T SH2 #### [facility] [address] [place] [address] TSHon 01-18-2019 TSH Qn 0.75 m[IU]/L Normal 0.44 - 3.98 [facility] Comment on above: Result Comment: TSH testing is performed using different testing methodology at [facility] than at other [facility]. Direct result comparisons should only be made within the same method. . Patients receiving more than 5 mg/day of biotin may have interference in test results. A sample should be taken no sooner than eight hours after previous dose. Contact [phone] for additional information. Performed By: #### T SH2 #### [facility] [address] [place] [address] TSHon 01-10-2019 TSH Qn 1.27 m[IU]/L Normal 0.44 - 3.98 [facility] Comment on above: Result Comment: TSH testing is performed using different testing methodology at [facility] than at other [facility]. Direct result comparisons should only be made within the same method. . Patients receiving more than 5 mg/day of biotin may have interference in test results. A sample should be taken no sooner than eight hours after previous dose. Contact [phone] for additional information. Performed By: #### T SH2 #### [facility] [address] [place] [address] TSHon 12-07-2018 TSH Qn 0.86 m[IU]/L Normal 0.44 - 3.98 [facility] Comment on above: Result Comment: TSH testing is performed using different testing methodology at [facility] than at other [facility]. Direct result comparisons should only be made within the same method. . Patients receiving more than 5 mg/day of biotin may have interference in test results. A sample should be taken no sooner than eight hours after previous dose. Contact [phone] for additional information. Performed By: #### T SH2 #### [facility] [address] [place] [address] EXT LAB FERRITINon 9 Ferritin mass conc 97 ng/mL [facility] External Lab CBC (With or wi thout Diff)on 11-12-2018 Basophils (Bld) [#/Vol] 0.0 10*3/uL [facility] Basophils/100 WBC (Bld) 0.8 % [facility] Eosinophils (Bld) [#/Vol] 0.1 10*3/uL [facility] Eosinophils (Bld) [#/Vol] 2.5 10*3/uL [facility] Erythrocyte distribution width (RBC) [Ratio] 12.8 % [facility] Hematocrit (Bld) [Volume fraction] 39.1 % [facility] Hemoglobin (Bld) [Mass/Vol] 13.2 g/dL [facility] Lymphocytes (Bld) [#/Vol] 1.8 10*3/[facility]L [facility] Lymphocytes (Bld) [#/Vol] 30.4 10*3/uL [facility] MCH (RBC) [Entitic mass] 29.8 pg [facility] MCHC (RBC) [Mass/Vol] 33.7 g/dL [facility] MCV (RBC) [Entitic vol] 88.6 fL [facility] Monocytes (Bld) [#/Vol] 0.4 10*3/uL [facility] Monocytes (Bld) [#/Vol] 7.2 10*3/uL [facility] Neutrophils (Bld) [#/Vol] 59.1 10*3/uL [facility] Neutrophils (Bld) [#/Vol] 3.4 10*3/uL [facility] Platelet mean volume (Bld) [Entitic vol] 7.2 fL [facility] Platelets (Bld) [#/Vol] 308 10*3/uL [facility] RBC (Bld) [#/Vol] 4.4 10*6/uL [facility] WBC (Bld) [#/Vol] 5.80 10*3/uL [facility] External Lab Comprehensive M etabolic Panelon 11-12-2018 Albumin [Mass/Vol] 4.1 g/dL [facility] Albumin/Globulin [Mass ratio] 1.2 {ratio} [facility] ALP [Catalytic activity/Vol] 52 U/L [facility] ALT [Catalytic activity/Vol] 11 U/L [facility] AST [Catalytic activity/Vol] 15 U/L [facility] Bilirubin Ql (U) 1.0 mg/dL [facility] th Calcium [Mass/Vol] 9.5 mg/dL [facility] Chloride [Moles/Vol] 102 mmol/L [facility] Creatinine [Mass/Vol] 0.60 mg/dL [facility] GFR/1.73 sq M predicted among blacks MDRD (S/P/Bld) [Vol rate/Area] [facility] GFR/1.73 sq M predicted among non-blacks MDRD (S/P/Bld) [Vol rate/Area] [facility] Globulin (S) [Mass/Vol] 3.3 g/dL [facility] Glucose [Mass/Vol] 87 mg/dL [facility] HCO3 (Bld) [Moles/Vol] 25 mmol/L [facility] Magnesium [Mass/Vol] [facility] Phosphate [Mass/Vol] mg/dL [facility] Potassium [Moles/Vol] 4.1 mmol/L [facility] Protein [Mass/Vol] 7.4 g/dL [facility] Sodium [Moles/Vol] 137 mmol/L [facility] Urate [Mass/Vol] mg/dL [facility] Urea nitrogen [Mass/Vol] 15 mg/dL [facility] Urea nitrogen/Creatinine [Mass ratio] 25 mg/mg High [facility] External Lab Vitamin D, 25-O Hon 11-12-2018 Vitamin D, 25-OH 55.0 [facility] External Vitamin B12 and Fol ateon 11-12-2018 Cobalamin (Vitamin B12) mass conc 1500 pg/mL Off scale high [facility] Folate 24.8 ng/mL Off scale high [facility] Otheron 11-12-2018 Interpretation and review of laboratory results Abnormal [facility] TSHon 08-13-2018 TSH Qn 0.64 m[IU]/L Normal 0.44 - 3.98 [facility] Comment on above: Order Comment: FXD S TAT TO [phone]; SPOKE QUE , 08/12/2018 22:23 Result Comment: TSH testing is performed using different testing methodology at [facility] than at other [facility]. Direct result comparisons should only be made within the same method. . Patients receiving more than 5 mg/day of biotin may have interference in test results. A sample should be taken no sooner than eight hours after previous dose. Contact [phone] for additional information. FXD STAT TO [phone]; SPOKE QUE , 08/12/2018 22:23 Performed By: #### T SH2 #### [facility] [address] [place] [address] Vital Signs Date Time Vital Sign Value Performing Clinician Facility 11-26-2019 15:37-0500 BMI (Body Mass Index) 31.06 kg/m2 Behzad Hu [facility] 09-12-2019 15:37-0500 Body weight 103.87 kg Behzad Hu [facility] 09-12-2019 15:37-0500 BP Diastolic 85 mm[Hg] Behzad Hu [facility] 09-12-2019 15:37-0500 BP Systolic 126 mm[Hg] Behzad Hu [facility] 09-12-2019 15:37-0500 Height 182.9 cm Behzad Hu [facility] 09-12-2019 15:37-0500 Pulse (Heart Rate) 73 /min Behzad Hu [facility] 11-08-2017 09:56-0500 BMI (Body Mass Index) 36.08 kg/m2 Behzad Hu [facility] Work Phone: 11-08-2017 09:56-0500 BP Diastolic 81 mm[Hg] Behzad Hu [facility] Work Phone: 11-08-2017 09:56-0500 BP Systolic 120 mm[Hg] Behzad Hu [facility] Work Phone: 11-08-2017 09:56-0500 Height 182.9 cm Behzad Hu [facility] Work Phone: 11-08-2017 09:56-0500 Pulse (Heart Rate) 70 /min Behzad Hu [facility] Work Phone: 11-08-2017 09:56-0500 Weight 120.66 kg Behzad Hu [facility] Work Phone: 08-09-2017 14:05-0400 BMI (Body Mass Index) 40.01 kg/m2 Behzad Hu [facility] Work Phone: 08-09-2017 14:05-0400 Body Temperature 97.5 [degF] Behzad Hu [facility] Work Phone: 08-09-2017 14:05-0400 BP Diastolic 74 mm[Hg] Behzad Hu [facility] Work Phone: 08-09-2017 14:05-0400 BP Systolic 130 mm[Hg] [facility] Work Phone: 08-09-2017 14:05-0400 [facility] 182.9 [facility] 08-09-2017 14:05-0400 Pulse (Heart Rate) 85 /min [facility] Work Phone: 08-09-2017 14:05-0400 Weight 133.81 kg [facility] Work Phone: 06-01-2017 14:30-0400 BMI (Body Mass Index) 43.26 kg/m2 [facility] Work Phone: 06-01-2017 14:30-0400 Body Temperature 97.81 [degF] [facility] Work Phone: 06-01-2017 14:30-0400 BP Diastolic 82 mm[Hg] [facility] Work Phone: 06-01-2017 14:30-0400 BP Systolic 128 mm[Hg] [facility] Work Phone: 06-01-2017 14:30-0400 Height 182.9 cm [facility] Work Phone: 06-01-2017 14:30-0400 Pulse (Heart Rate) 82 /min [facility] Work Phone: 06-01-2017 14:30-0400 Weight 144.7 kg [facility] Work [facility]: Encounters Encounter Date Encounter Type Care Provider Facility Start: 03-17-2024 End: 03-17-2024 ambulatory LOLI MATIAS Facility[place] [place] Start: 03-17-2024 End: 03-17-2024 Patient encounter procedure LOLI MATIAS [facility] Start: 04-02-2023 End: 04-03-2023 ambulatory [facility] Start: 04-02-2023 End: 04-02-2023 Subsequent hospital visit by physician Loli Matias MD Work Phone: [facility] Comment on above: Acquired hypothyroid ism Start: 11-10-2022 End: 11-13-2022 ambulatory [facility] Start: 11-10-2022 End: 11-12-2022 Subsequent hospital visit by physician [facility] Ultrasound Room [facility] Ultrasound Comment on above: Acquired hypothyroid ism Start: 11-06-2022 End: 02-15-[address] DREW MCBRIDE Facility:[facility] Start: 01-13-2022 End: 01-15-2022 Subsequent hospital visit by physician Loli Matias MD Work Phone: [facility] Start: 11-19-2020 End: 11-19-2020 Billy Ramirez Work Phone: [facility] Start: 09-20-2019 End: 09-20-2019 Documentation procedure Behzad Rajendrasinh Rana Work Phone: [facility] Start: 09-18-2019 End: 09-18-2019 Documentation procedure Bezhad Rajendrasinh Rana Work Phone: [facility] Start: 09-12-2019 End: 09-12-2019 Patient encounter procedure BEHZAD RAJENDRASINH RANA [facility] Start: 09-12-2019 End: 09-12-2019 Office outpatient visit 15 minutes Behzad Rajendrasinh Rana Work Phone: [facility] Comment on above: Bariatric surgery st atus (Primary Dx); Obesity, Class I, BMI 30-34.9 Start: 07-17-2019 End: 07-17-2019 Subsequent hospital visit by physician Loli Matias [facility] Comment on above: Epigastric pain; History of pancreatitis Start: 07-14-2019 End: 07-16-2019 Subsequent hospital visit by physician [facility] Ultrasound Room [facility] Ultrasound Comment on above: Thyroid nodule Start: 11-16-2018 End: 11-16-2018 Documentation procedure Behzad Hu Work Phone: [facility] Start: 10-24-2018 End: 10-24-2018 Patient encounter procedure BEHZAD HU [facility] Start: 04-11-2018 End: 04-11-2018 Ambulatory F[facility] Start: 11-08-2017 Office/outpatient vi sit, est, level 3 Behzad Hu Work Phone: [facility] Start: 08-09-2017 End: 08-09-2017 Office outpatient visit 15 minutes BehzadKunz Work Phone: [facility] Comment on above: Bariatric surgery st at[facility] (Primary Dx) Start: 06-01-2017 Postop follow-up visit Behzad Vashti josé migueladin Hu Work Phone: [facility] Start: 04-30-2017 End: 05-02-2017 Evaluation and management of inpatient [facility] Start: 04-30-2017 Ambulatory [facility] Start: 04-23-2017 End: 04-27-2017 Ambulatory [facility] Start: 04-05-2012 End: 08-15-2018 Patient encounter procedure Loli Matias MD Work Phone: [facility] Procedures Date Procedure Procedure Detail Performing Clinician Start: 04-02-2023 Assay of thyroid stimulating hormone tsh Loli Matias MD Work Phone: Start: 11-10-2022 Us soft tissue head & neck real time imge docm Nissa Lo [employer] Work Phone: Start: 10-20-2019 Dilation and curettage LOLI MATIAS Comment on above: DILATION & SUCTION C URETTAGE Start: 09-13-2019 EXT LAB FERRITIN Behzad Binghamsamuel Work Phone: Start: 09-13-2019 EXT LAB IRON BehzadMccord Work Phone: Start: 09-13-2019 EXT LAB VITAMIN A Behzad Hu Work Phone: Start: 09-13-2019 EXT LAB VITAMIN B1 Rachel urvashi Hu Work Phone: Start: 09-13-2019 EXT LAB VITAMIN B12 AND FOLATE BehzadKunz Work Phone: Start: 09-13-2019 EXT LAB VITAMIN B6 Rachel urvashi Hu Work Phone: Start: 09-13-2019 EXT LAB VITAMIN D, 25-OH Behzad Hu Work Phone: Start: 09-13-2019 EXT LAB ZINC Behzad Hu Work Phone: Start: 07-27-2019 Anesthesia consultation Start: 07-19-2019 Anesthesia consultation Start: 07-19-2019 Cholecystectomy LOLI LLANOS Start: 07-17-2019 Assay of amylase Lucho Gandara Work Phone: Start: 07-17-2019 Assay of lipase Junior Gandara Work Phone: Start: 07-17-2019 Blood count complete auto&auto difrntl wbc Junior Gandara Work Phone: Start: 07-17-2019 Comprehensive metabo lic panel Junior Gandara Work Phone: Start: 07-14-2019 Us soft tissue head & neck real time imge docm Loli Matias Work Phone: Start: 03-31-2019 DIAGNOSTIC LAPAROSCO PY , DIAGNOSTIC HYSTEROSCOPY LOLI MATIAS Start: 11-12-2018 EXT LAB CBC (WITH OR WITHOUT DIFF) Behzad Hu Work Phone: Start: 11-12-2018 EXT LAB COMPREHENSIV E METABOLIC Behzad Hu Work Phone: Start: 11-12-2018 EXT LAB FERRITIN Behzad Hu Work Phone: Start: 11-12-2018 EXT LAB VITAMIN B12 AND FOLATE Behzad Hu Work Phone: Start: 11-12-2018 EXT LAB VITAMIN D, 25-OH Behzad Hu Work Phone: Start: 09-28-2017 Microscopic observat ion [Identifier] in Cervix by Cyto stain Loli Matias MD Work Phone: Start: 12-16-2016 microdissectomy l4-6 NA OLYA MATIAS Start: 10-18-2016 gastric sleeve LOLI GUTIERREZ Plan of Treatment Date Care Activity Detail Author Start: 05-30-2024 DTaP/Tdap/Td vaccine (3 - Td or Tdap) DTaP/Tdap/Td vaccine (3 - Td or Tdap) [facility] Start: 05-30-2024 DTaP/Tdap/Td vaccine (3 - Td) DTaP/Tdap/Td vaccine (3 - Td) [place] Start: 05-30-2024 DTaP/Tdap/Td vaccine (7 - Td or Tdap) DTaP/Tdap/Td vaccine (7 - Td or Tdap) [facility] Start: 05-30-2024 Tetanus vaccination [facility] Start: 03-24-2024 Depression Screen Depression Screen [facility] Start: 11-18-2022 Depression Screen Depression Screen [facility] Start: 11-18-2022 Thyroid stimulating hormone measurement TSH testing [facility] Start: 2021 Diabetes screen Diabetes screen [facility] Start: 03-28-2021 COVID-19 Vaccine (3 - Booster for Moderna series) COVID-19 Vaccine (3 - Booster for Moderna series) [facility] Start: 09-28-2020 Cervical cancer screen Cervical canc er screen [place], [place] Start: 09-28-2020 Screening for malign ant neoplasm of cervix [facility] Start: 06-18-2020 Influenza vaccinatio n given Sequential Influenza Vaccine (#1) [facility] Start: 06-18-2019 Influenza vaccination Flu vaccine (# 1) [place] Start: 06-18-2019 Influenza vaccinatio n given SEQUENTIAL INFLUENZA VACCINE (#1) [facility] Start: 04-24-2019 End: 04-24-2019 Office Visit 04/24/2019 Office Visit Behzad Rockwell MD [address] [place] [address] [phone] [facility] Start: 08-05-2018 TSH testing TSH testing [place], [place] Start: 06-18-2018 Influenza vaccinatio n given SEQUENTIAL INFLUENZA VACCINE (#1) [facility] Start: 05-02-2018 Ambulatory 05/02/2018 Off ice Visit Behzad Rockwell MD [address] [place] [address] [phone] [facility] Start: 11-01-2017 Ambulatory 11/01/2017 Off ice Visit Behzad Rockwell MD [address] [place] [place] [address] [phone] [facility] Start: 08-02-2017 Ambulatory 08/02/2017 Off ice Visit Behzad Rockwell MD [address] [place] [address] [phone] [facility] Start: 06-18-2017 Influenza vaccination SEQUENTI AL INFLUENZA VACCINE (#1) [facility] Work Phone: Start: 06-18-2017 SEQUENTIAL INFLUENZA VACCINE (#1) SEQUENTIAL INFLUENZA VACCINE (#1) [facility] Work Phone: Start: 2016 Screening for malign ant neoplasm of cervix HPV (without or with Pap) [facility] Start: 2004 Hepatitis C antibody , confirmatory test Hepatitis C Screening [facility] Start: 2004 Hepatitis C screening Hepatitis C sc reen [facility] Start: 10-04-2002 Hepatitis A vaccine (2 of 2 - 2-dose series) Hepatitis A vaccine (2 of 2 - 2-dose series) [facility] Start: 2001 HIV screen HIV screen [place], [place] Start: 2001 HIV screening [facility] Start: 12-25-1999 Varicella Vaccine (1 of 2 - 13+ 2-dose series) Varicella Vaccine (1 of 2 - 13+ 2-dose series) [place], [place] Start: 1998 Adolescent depressio n screening assessment Depression Screening (PHQ9) [facility] Start: 1989 History and physical examination, annual for health maintenance Wellness Visit [facility] Start: 12-25-1987 Varicella vaccine (1 of 2 - 2-dose childhood series) Varicella vaccine (1 of 2 - 2-dose childhood series) [facility] Start: 1986 Cytopathology procedure, preparation of smear, genital source PAP SMEAR [facility] Work Phone: Start: 1986 Hepatitis C screening Hepatitis C sc breannan [facility] Start: 1986 Screening for malign ant neoplasm of cervix PAP SMEAR [facility] Work Phone: Start: 1986 TETANUS EVERY 10 YR TETANUS EVERY 10 YR [facility] Work Phone: Start: 1986 Tetanus vaccination TETANUS EVERY 10 YR [facility] Work Phone: End: 09-12-2020 Blood zinc measurement Zinc Lab Routine Bariatric surgery status 1 Occurrences starting 09/12/2019 until 09/12/2020 [facility] Comment on above: 1 Occurrences starti ng 09/12/2019 until 09/12/2020 End: 08-10-2018 CBC and Differential CBC and Differential Routine Bariatric surgery status 1 Occurrences starting 08/09/2017 until 08/10/2018 [facility] Work Phone: Comment on above: 1 Occurrences starti ng 08/09/2017 until 08/10/2018 End: 08-10-2018 Ceruloplasmin Ceruloplasmin Routine Bariatric surgery status 1 Occurrences starting 08/09/2017 until 08/10/2018 [facility] Work Phone: Comment on above: 1 Occurrences starti ng 08/09/2017 until 08/10/2018 End: 09-12-2020 Cobalamin (Vitamin B12) [Mass/Vol] Vitamin B12 Lab Routine Bariatric surgery status 1 Occurrences starting 09/12/2019 until 09/12/2020 [facility] Comment on above: 1 Occurrences starti ng 09/12/2019 until 09/12/2020 End: 08-10-2018 Cobalamin (Vitamin B12) mass conc Vitamin B12 Routine Bariatric surgery status 1 Occurrences starting 08/09/2017 until 08/10/2018 [facility] Work Phone: Comment on above: 1 Occurrences starti ng 08/09/2017 until 08/10/2018 End: 08-10-2018 Comprehensive metabolic 2000 panel Comprehensive Metabolic Panel Routine Bariatric surgery status 1 Occurrences starting 08/09/2017 until 08/10/2018 [facility] Work Phone: Comment on above: 1 Occurrences starti ng 08/09/2017 until 08/10/2018 External Lab Iron External Lab I amanda Routine 11/12/2018 [facility] End: 08-09-2018 Ferritin [Mass/volume] in Serum or Plasma Ferritin Routine Bariatric surgery status 1 Occurrences starting 08/09/2017 until 08/09/2018 [facility] Work Phone: Comment on above: 1 Occurrences starti ng 08/09/2017 until 08/09/2018 End: 08-10-2018 Folate Folate Routine Bariatric surgery status 1 Occurrences starting 08/09/2017 until 08/10/2018 [facility] Work Phone: Comment on above: 1 Occurrences starti ng 08/09/2017 until 08/10/2018 End: 09-12-2020 Folate [Mass/Vol] Folate Lab Routine Bariatric surgery status 1 Occurrences starting 09/12/2019 until 09/12/2020 [facility] Comment on above: 1 Occurrences starti ng 09/12/2019 until 09/12/2020 End: 08-10-2018 Hemoglobin A1c/Hemoglobin.total mass fraction (Bld) Hemoglobin A1c Routine Bariatric surgery status 1 Occurrences starting 08/09/2017 until 08/10/2018 [facility] Work Phone: Comment on above: 1 Occurrences starti ng 08/09/2017 until 08/10/2018 End: 09-12-2020 Iron measurement Iron Study with Ferritin Lab Routine Bariatric surgery status 1 Occurrences starting 09/12/2019 until 09/12/2020 [facility] Comment on above: 1 Occurrences starti ng 09/12/2019 until 09/12/2020 End: 08-10-2018 Lipid panel Lipid Panel Routine Bariatric surgery status 1 Occurrences starting 08/09/2017 until 08/10/2018 [facility] Work Phone: Comment on above: 1 Occurrences starti ng 08/09/2017 until 08/10/2018 End: 08-10-2018 PTH, Intact PTH, Intact Routine Bariatric surgery status 1 Occurrences starting 08/09/2017 until 08/10/2018 [facility] Work Phone: Comment on above: 1 Occurrences starti ng 08/09/2017 until 08/10/2018 End: 09-12-2020 Pyridoxal 5 phosphate level Vitamin B6 Lab Routine Bariatric surgery status 1 Occurrences starting 09/12/2019 until 09/12/2020 [facility] Comment on above: 1 Occurrences starti ng 09/12/2019 until 09/12/2020 End: 08-10-2018 Reticulocytes panel - Blood Reticulocyte Routine Bariatric surgery status 1 Occurrences starting 08/09/2017 until 08/10/2018 [facility] Work Phone: Comment on above: 1 Occurrences starti ng 08/09/2017 until 08/10/2018 End: 09-12-2020 Thiamine measurement Vitamin B1, Whole Blood Lab Routine Bariatric surgery status 1 Occurrences starting 09/12/2019 until 09/12/2020 [facility] Comment on above: 1 Occurrences starti ng 09/12/2019 until 09/12/2020 End: 08-10-2018 Thyrotropin Qn TSH Routine Bariatric surgery status 1 Occurrences starting 08/09/2017 until 08/10/2018 [facility] Work Phone: Comment on above: 1 Occurrences starti ng 08/09/2017 until 08/10/2018 End: 04-02-2023 Thyroxine (T4) free [Mass/volume] in Serum or Plasma [facility] Comment on above: 1 Occurrences starti ng 04/02/2023 until 04/02/2023 End: 08-10-2018 Vitamin A Vitamin A Routine Bariatric surgery status 1 Occurrences starting 08/09/2017 until 08/10/2018 [facility] Work Phone: Comment on above: 1 Occurrences starti ng 08/09/2017 until 08/10/2018 End: 09-12-2020 Vitamin A measurement Vitamin A Lab Routine Bariatric surgery status 1 Occurrences starting 09/12/2019 until 09/12/2020 [facility] Comment on above: 1 Occurrences starti ng 09/12/2019 until 09/12/2020 End: 08-10-2018 Vitamin B1, Whole Blood Vitamin B1, Whole Blood Routine Bariatric surgery status 1 Occurrences starting 08/09/2017 until 08/10/2018 [facility] Work Phone: Comment on above: 1 Occurrences starti ng 08/09/2017 until 08/10/2018 End: 08-10-2018 Vitamin B6 Vitamin B6 Routine Bariatric surgery status 1 Occurrences starting 08/09/2017 until 08/10/2018 [facility] Work Phone: Comment on above: 1 Occurrences starti ng 08/09/2017 until 08/10/2018 End: 09-12-2020 Vitamin D, 25-hydroxy measurement Vitamin D, Total, 25-OH Lab Routine Bariatric surgery status 1 Occurrences starting 09/12/2019 until 09/12/2020 [facility] Comment on above: 1 Occurrences starti ng 09/12/2019 until 09/12/2020 End: 08-10-2018 Vitamin D, Total, 25-OH Vitamin D, Total, 25-OH Routine Bariatric surgery status 1 Occurrences starting 08/09/2017 until 08/10/2018 [facility] Work Phone: Comment on above: 1 Occurrences starti ng 08/09/2017 until 08/10/2018 End: 08-10-2018 Zinc Zinc Routine Bariatric surgery status 1 Occurrences starting 08/09/2017 until 08/10/2018 [facility] Work Phone: Comment on above: 1 Occurrences starti ng 08/09/2017 until 08/10/2018 Immunizations Immunization Date Immunization Notes Care Provider [facility] 07-23-2022 influenza, injectabl e, quadrivalent, preservative free Loli Matias MD Work Phone: [facility] 09-10-2021 influenza virus vaccine, unspecified formulation Loli Matias MD Work Phone: [facility] Work Phone: 10-28-2020 COVID-19, Moderna, Primary or Immunocompromised, PF, 100mcg/0.5mL Loli Matias MD Work Phone: [facility] Work Phone: 10-28-2020 COVID-19, Pfizer Purple top, DILUTE for use, 12+ yrs, 30mcg/0.3mL dose Loli Matias MD Work Phone: [facility] Work Phone: 10-04-2020 COVID-19, Moderna, Primary or Immunocompromised, PF, 100mcg/0.5mL Loli Matias MD Work Phone: [facility] Work Phone: 10-04-2020 COVID-19, Pfizer Purple top, DILUTE for use, 12+ yrs, 30mcg/0.3mL dose Loli Matias MD Work Phone: [facility] 08-04-2017 tuberculin skin test ; purified protein derivative solution, intradermal [facility], [place] 08-04-2017 unknown vaccine or immune globulin Loli Matias MD Work Phone: [facility] 05-30-2014 tetanus toxoid, reduced diphtheria toxoid, and acellular pertussis vaccine, adsorbed [facility], [place] 04-05-2012 tetanus toxoid, reduced diphtheria toxoid, and acellular pertussis vaccine, adsorbed [facility] 04-05-2012 tuberculin skin test ; purified protein derivative solution, intradermal [facility], [place] 02-24-2006 hepatitis B vaccine, pediatric or pediatric/adolescent dosage Loli Matias MD Work Phone: [facility] 10-26-2005 hepatitis B vaccine, pediatric or pediatric/adolescent dosage Loli Matias MD Work Phone: [facility] 09-24-2005 hepatitis B vaccine, pediatric or pediatric/adolescent dosage Loli Matias MD Work Phone: [facility] 04-04-2002 hepatitis A and hepatitis B vaccine Loli Matias MD Work Phone: [facility] 04-04-2002 TD(adult) unspecifie d formulation Loli Matias MD Work Phone: [facility] 01-28-1999 measles, mumps and rubella virus vaccine Loli Matias MD Work Phone: [facility] 04-17-1992 diphtheria, tetanus toxoids and acellular pertussis vaccine, unspecified formulation Loli Matias MD Work Phone: [facility] 05-06-1988 diphtheria, tetanus toxoids and pertussis vaccine Loli Matias MD Work Phone: [facility] 05-06-1988 measles, mumps and rubella virus vaccine Loli Matias MD Work Phone: [facility] 01-01-1988 diphtheria, tetanus toxoids and pertussis vaccine Loli Matias MD Work Phone: [facility] 05-01-1987 diphtheria, tetanus toxoids and pertussis vaccine Loli Matias MD Work Phone: [facility] NEGATED: Highlighted row has not occurred!07-19-2019 influenza, seasonal, injectable LOLI MATIAS [facility] Comment on above: Result Comment: Pt s tates will get from place of employment Payers Date Payer Category Payer Unknown [id number] 2022 Unknown [id number] 2019 Unknown BCBS [place] - [place] P PO [id number] 2019-Present [phone] [address] [place] [address] [id number] 2019 Unknown [facility] CE PLUS [id number] 2019-Present [id number] 2018 Unknown [id number] 2018 Private Health Insurance [employer]ET[employer] A ETNA CHOICE POS/POSII/PREMIER CARE/PREMIER CARE PLUS xxxxxxxxxx 2018-Present xxxxxxxxxx [id number] 2018 Private Health Insurance [id number] 2017 Unknown [id number] 3 2017 Unknown [id number] 1986 Unknown [id number] 1986 Unknown [id number] 1986 Unknown [id number] 1986 Unknown [id number] 1986 Unknown [id number] 1986 Unknown [id number] 1959 Self-pay 1959 Unknown [id number] Unknown [id number] 3 Social History Date Type Detail Facility Start: 06-01-2017 End: 07-28-2019 Tobacco smoking status MOIS Never smoker [facility] Work Phone: Start: 1985 Sex Assigned At Not on file [employer] Work Phone: Start: 04-26-2019 End: 07-17-2019 Alcohol intake No [facility] Start: 09-12-2019 End: 03-24-2023 Alcohol intake Current non-drinker of alcohol (finding) [facility] Start: 09-12-2019 End: 03-24-2023 Tobacco use and exposure Never used [facility] Start: 01-13-2022 Alcohol intake [facility] Work Phone: Start: 11-18-2021 History SDOH Financial 5 [employer] Phone: Start: 11-18-2021 End: 03-24-2023 History SDOH Food Worry 1 [employer] Phone: Start: 03-24-2023 History SDOH Financial 4 [employer] Start: 03-24-2023 History SDOH Transpo rt Non-Med 2 [facility] Procedure Code Equipment Code Equipment Origin al Text Equipment Identifier Dates Kit 4ml Vh S/D Tisseel Frozen - [id number] Start: 04-30-2017 Strip Ech 60 Pranav nf Bovine Dorothy-Strips Dry [employer] - [id number] Start: 04-30-2017 Kit 4ml Vh S/D [employer] Frozen - [id number] Start: 04-30-2017 Strip Ech 60 Pranav nf Bovine Dorothy-Strips Dry W[employer] - [id number] Start: 04-30-2017 Kit 4ml Vh S/D [employer] Frozen - [id number] Start: 04-30-2017 Strip Ech 60 Pranav nf Bovine Dorothy-Strips Dry W[employer] - [id number] Start: 04-30-2017 Kit 4ml Vh S/D [employer]isse[employer] Frozen - [id number] Start: 04-30-2017 Strip Ech 60 Pranav nf Bovine Dorothy-Strips Dry W[employer] - [id number] Start: 04-30-2017 Kit 4ml Vh S/D [employer]isse[employer] Frozen - [id number] Start: 04-30-2017 Strip Ech 60 Pranav nf Bovine Dorothy-Strips Dry [employer] - [id number] Start: 04-30-2017 Kit 4ml Vh S/D [employer] Frozen - [id number] Start: 04-30-2017 Comment on above: Description: 8ml use d ( 2-4ml kits) Clarification for billing purpose 8 ml = 4 used 0 wasted Strip Ech 60 Pranav nf Bovine Dorothy-Strips Dry [employer] - [id number] Start: 04-30-2017 Comment on above: Description: Charge Only Kit 4ml Vh S/D [employer]isse[employer] Frozen - [id number] Start: 04-30-2017 Strip Ech 60 Pranav nf Bovine Dorothy-Strips Dry [employer] - [id number] Start: 04-30-2017 Kit 4ml Vh S/D Tisse[employer] Frozen - [id number] Start: 04-30-2017 Strip Ech 60 Pranav nf Bovine Dorothy-Strips Dry W[employer] - [id number] Start: 04-30-2017 Evaluation + Plan note Note Date & Type Note Facility Evaluation + Plan note No data available for this section [facility] Evaluation note Note Date & Type Note Facility Evaluation note Diagnosis Acquired hypothyroidism Unspecified hypothyroidism documented in this encounter [facility] Work Phone: Evaluation note Note Date & Type Note Facility Evaluation note Diagnosis Acquired hypothyroidism Unspecified hypothyroidism documented in this encounter [facility] Discharge instructions Note Date & Type Note Facility Hospital Discharge instructions No data available for this section [facility] Progress note Note Date & Type Note Facility Progress note No data available for this section [facility] Assessments Diagnosis Bariatric surgery status - P [...] History Records FoundNo Family History Records Found No data available for this section No Family History Records FoundNo Family History Records Found Advance Directives No Advanced Directives Records FoundDocuments on File Type Date Recorded Patient Painter Helper Sign Expl anation Advance Directives and Living Will Latest Code Status on File Code Status Date Activated Date Inactivated Comments Full Code 04/30/2017 12:41 PM 05/02/2017 7:17 PM Documents on File Type Date Recorded Patient Painter Helper Sign Expl anation Advance Directives and Living Will Power of Case Technician Documents on File Type Date Recorded Patient Painter Helper Sign Expl anation Advance Directives and Living Will Power of Case Technician Documents on File Type Date Recorded Patient Painter Helper Sign Expl anation ACP-Advance Directive ACP-Power of Case Technician History of Present Illness * Behzad Hu MD - 08/09/2017 2:32 PM EDT Formatting of this note may be different from the original. [facility] POSTOP BARIATRIC VISIT [...] W/ BIOPSY; Surgeon: Behzad Hu MD; Location: [facility]; Service: GASTRIC SLEEVE BYPASS LAPAROSCOPIC WITH EGD N/A 04/30/2017 Procedure: LAPAROSCOPIC SLEEVE GASTRECTOMY HIATAL HERNIA REPAIR LIVER BIOPSY ESOPHAGOGASTRODUODENOSCOPY; Surgeon: Behzad Hu MD; Location: [facility] OR; Service: Social History Social [...] (40 mg total) by mouth daily. pediatric [id number]-dige-qwn (flintstones complete) Chew Chew and Swallow Take [...] - 08/09/2017 2:06 PM EDT .. ..Sukhdev F Efren who is 3 months s/p Laparoscopic GS. [...] Hu MD - 09/12/2019 4:49 PM EST [facility] POSTOP BARIATRIC VISIT [...] W/ BIOPSY; Surgeon: Behzad Hu MD; Location: [facility]; Service: GASTRIC SLEEVE BYPASS LAPAROSCOPIC WITH EGD N/A 04/30/2017 Procedure: LAPAROSCOPIC SLEEVE GASTRECTOMY HIATAL HERNIA REPAIR LIVER BIOPSY ESOPHAGOGASTRODUODENOSCOPY; Surgeon: Behzad Hu MD; Location: [facility] OR; Service: Social History Socioeconomic [...] file Gets together: Not on file Attends quaker service: Not on file Active member of [...] RN - 09/12/2019 3:38 PM EST ....Sukhdev Corrales Efren who is 2 years 6 months s/p [...] HEAD/NECK TISSUES,REAL TIME Loli Matias MD [address] [place] [address] Specialty Diagnoses / Procedures Referred By Contac t Referred To Contact Radiology Diagnoses Acquired hypothyroidism Procedures US HEAD NECK SOFT TISSUE THYROID Nissa Lo APRN - NP [address] [facility] [address] [address] Referral ID Status Reason Start Date Expiration Date V isits Requested Visits Authorized [id number] Pending Review 11/09/2022 11/09/2023 1 1 Hospital Course Note --- --- --- --- --- --- --- --- --- From: Deandre Shen To: SUKHDEV SCHWARTZ Sent: 07/20/19 02:30:39 AM EDT Subject: Discharge Summary Ready to View A summary regarding your recent visit is available in the Documents section of your health record. Note Admission Information Admit Date/Time:07/18/2019 02:24 Admitting Physician - Aron ALVARADO DO Consulting Physician - CAPRICE GUSTAFSON, [facility] Course Pt is a 33 F admitted [...] --- --- --- --- --- --- From: Deandre Shen To: SUKHDEV SCHWARTZ Sent: 05/29/20 02:30:27 AM [...] All Problems Ovarian dysfunction / SNOMED CT 23101917 / Confirmed Hypothyroidism / SNOMED CT 68144246 / Confirmed Pancreatitis / SNOMED CT 697493463 / Confirmed Physical Examination Vital Signs 07/18/2019 [...] All Problems Ovarian dysfunction / SNOMED CT 08435178 / Confirmed Hypothyroidism / SNOMED CT 38605920 / Confirmed Incomplete miscarriage / SNOMED CT 245941961 / Confirmed missed Pancreatitis / SNOMED CT 259058340 / Confirmed Physical Examination Vital Signs 10/20/2019 [...] All Problems Ovarian dysfunction / SNOMED CT 57334727 / Confirmed Hypothyroidism / SNOMED CT 83939742 / Confirmed Pancreatitis / SNOMED CT 733065180 / Confirmed Physical Examination Vital Signs 07/18/2019 [...] All Problems Ovarian dysfunction / SNOMED CT 69007732 / Confirmed Hypothyroidism / SNOMED CT 47147436 / Confirmed Incomplete miscarriage / SNOMED CT 915770434 / Confirmed missed Pancreatitis / SNOMED CT 460472914 / Confirmed Physical Examination Vital Signs 10/20/2019 [...] section and content) DATE CREATED AUTHOR 04/15/2018 [facility] DATE CREATED AUTHOR AUTHOR'S ORGANIZ ATION 07/23/2019 [facility] DATE CREATED AUTHOR AUTHOR'S ORGANIZ ATION 09/13/2019 [facility] DATE CREATED AUTHOR AUTHOR'S ORGANIZ ATION 06/18/2020 [facility] DATE CREATED AUTHOR AUTHOR'S ORGANIZ ATION 02/14/2023 [facility] DATE CREATED AUTHOR AUTHOR'S ORGANIZ ATION 04/03/2023 [facility] DATE CREATED AUTHOR AUTHOR'S ORGANIZ ATION 03/18/2024 [facility] Reason for Visit (unrecogniz ed section and content) Reason Comments Follow-up GS on 04/30/17. Preop wt: 350. Todays wt: 295. Status Reason Specialty Diagnoses / Procedures Referred By Contact Referred To Contact Pending Review Radiology Diagnoses Thyroid nodule Procedures US HEAD NECK SOFT TISSUE THYROID US, HEAD/NECK TISSUES,REAL TIME Loli Matias MD [address] [place] [address] Reason Comments Follow-up GS 04/30/17. Prop wt: 350. 10/24/18 229lbs 09/12/19 wt= 240lbs Reason Onset Date Comments Medication Refill 11/19/2020 Specialty Diagnoses / Procedures Referred By Contac t Referred To Contact Radiology Diagnoses Acquired hypothyroidism Procedures US HEAD NECK SOFT TISSUE THYROID Nissa Lo, INJECTION WAX MOLDER - [employer]IEF [employer]OLLER [employer] [address] [place] [address] Referral ID Status Reason Start Date Expiration Date V isits Requested Visits Authorized [id number] Pending Review 11/09/2022 11/09/2023 1 1 Care Teams (unrecognized sec tion and content) Slab Polisher Relationship Specialty Start Date End Date Loli Matias MD [address] [place] [id number] PCP - General 07/24/16 Slab Polisher Relationship Specialty Start Date End Date Loli Matias MD [address] [place] [address] PCP - General 07/24/16 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 [facility]. provides no warranty or guarantee of the accuracy or completeness of information in this document.
== END 2024-03-27 07:25 | disposition home or self-care (01) ==
LOC: VC 07:24
PROVIDERS: PCP Radiology Diagnostic Radiology; Visit Provider Radiology Diagnostic Radiology
DX: I83.813 Varicose veins of bilateral lower extremities with pain (principal)
CPT/HCPCS: 36471